=== PATIENT | female | born 1960 | race Caucasian/White ===

== ENCOUNTER 2017-01-06 17:23 | Emergency (ER) | payer MEDICARE, MEDICAID ==
[2017-01-06] MEDS ORDERED: Acetaminophen TAB* 325 MG PO ONE (19:34)
[2017-01-06] MEDS ORDERED: NS 0.9% 1000 ML* 1,000 ML IV ONE (19:34)
[2017-01-06] MEDS ORDERED: Ondansetron INJ* 2 MG/ML VIAL IV ONE (19:34)
[2017-01-06] MEDS ORDERED: Morphine INJ* 2 MG/ML 1 ML SYRINGE IV ONE (19:37)
[2017-01-06 20:07] LABS: Hematocrit 43 % (35-47); Mean Corpuscular HGB Conc 33 g/dl (31-36); Mean Corpuscular Hemoglobin 28 pg (27-31); Mean Corpuscular Volume 85 fL (80-97); Mean Platelet Volume 9 um3 (7.4-10.4); Red Blood Count 5.03 10^6/ul (4.0-5.4); Red Cell Distribution Width 17 % (10.5-15); White Blood Count 14.3 10^3/ul (3.5-10.8)
--- NOTE | 2017-01-06 20:15 | ED ---
Marti Michaels Anna, scribed for Geraldo Rene MD on 01/06/17 at 1940 . HPI Febrile Illness - HPI Summary HPI Summary: Patient is an 56 y/o female coming to [facility] presenting with sudden onset of a constant fever that began one day ago in the afternoon. The fever was just over 100 F yesterday and was 102 this morning. Upon consult with her doctor, the doctor said the family could consider coming to the ED. She also has a constant KHANNA of severity 5/10. The patient had a craniotomy four days ago at [facility]. She had an arterial bypass. During the operation, she had a CVA. Since then, she has had aphasia. She was discharged two days ago. She has left-sided weakness at baseline following previous TIAs. She recently had a UTI and was on Abx. She was supposed to take the last Abx four days ago but was not able to because of her craniotomy. She is currently taking Keppra, 1000 mg at 2x/day. She took her morning dose but not her evening dose. She additionally took Fioricet at 1500 this afternoon, which did not alleviate her KHANNA. Her history is significant for Moyamoya disease. 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 and Onset/Duration: Started Hours Ago, Still Present Timing: Constant Initial Severity: Moderate Current Severity: Moderate Pain Intensity: 5 Associated Signs and Symptoms: Headache - Additional Pertinent History Primary Care Physician: [id number] - Allergy/Home Medications Allergies/Adverse Reactions: Allergies Allergy/AdvReac Type Severity Reaction Status Date / Time Nitrofurantoin Allergy Severe Rash Verified 03/17/16 09:49 [From Macrobid] Amoxicillin [From Augmentin] AdvReac Intermediate Nausea And Verified 03/17/16 09:49 Vomiting Clavulanic Acid AdvReac Intermediate Nausea And Verified 03/17/16 09:49 [From Augmentin] Vomiting Meperidine [From Demerol HCl] AdvReac Intermediate Headache Verified 03/17/16 09 :49 PMH/Surg Hx/FS Hx/Imm Hx Endocrine/Hematology History: Reports: Hx Diabetes, Other Endocrine/ Hematological Disorders Denies: Hx Thyroid Disease, Hx Anemia Cardiovascular History: Reports: Hx Angina, Hx Angioplasty, Hx Coronary Artery Disease, Hx Hypercholesterolemia, Hx Hypertension, Other Cardiovascular Problems /Disorders Denies: Hx Aneurysm, Hx Auto Implanted Cardiovert Defib, Hx Cardiac Arrest, Hx Cardiomegaly, Hx Congenital Heart Disease, Hx Congestive Heart Failure, Hx Deep Vein Thrombosis, Hx Hypotension, Hx Myocardial Infarction, Hx Pacemaker/ICD , Hx Peripheral Vascular Disease, Hx Rheumatic Fever, Hx Syncope, Hx Valvular Heart Disease Respiratory History: Reports: Hx Asthma, Hx Chronic Bronchitis, Hx Chronic Obstructive Pulmonary Disease (COPD) - O2 at home, Hx Pneumonia, Hx Sleep Apnea , Other Respiratory Problems/Disorders - PNEUMONIA IN 2001 Denies: Hx Cystic Fibrosis, Hx Lung Cancer, Hx Pleural Effusion, Hx Pulmonary Edema, Hx Pulmonary Embolism, Hx Seasonal Allergies GI History: Reports: Hx Gastroesophageal Reflux Disease, Other GI Disorders - "sphincter in stomach not working" Denies: Hx Cirrhosis, Hx Crohn's Disease, Hx Diverticulosis, Hx Gall Bladder Disease, Hx Gastrointestinal Bleed, Hx Hiatal Hernia, Hx Irritable Bowel, Hx Jaundice, Hx Obstructive Bowel, Hx Ileostomy, Hx Pyloric Stenosis, Hx Ulcer History: Reports: Hx Chronic Renal Failure, Hx Renal Disease, Other Problems/Disorders - chronic kidney disease Denies: Hx Dialysis Musculoskeletal History: Reports: Hx Back Problems, Hx Scoliosis Sensory History: Reports: Hx Contacts or Glasses, Hx Vision Problem Denies: Hx Hearing Aid Opthamlomology History: Reports: Hx Contacts or Glasses, Hx Vision Problem Neurological History: Reports: Hx Headaches, Hx Transient Ischemic Attacks (TIA) Comment Only: Other Neuro Impairments/Disorders - Hx of 2 TIA. Hx moyamoya disease. 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 Hx Chemotherapy: No Hx Radiation Therapy: No - Surgical History Surgery Procedure, Year, and Place: uterine ablation, appendectomy, 2 bladder cystoscopies, c-sections, endoderectomy 2004, stent and balloon LICA 2005 & 2006 ( Sabrix WALLSTENT - SAFE AT 1.5T AND 3T WITH EVERETTE 2.0 W/KG 15 MINS LIMITATION) , tubal ligation Hx Anesthesia Reactions: No - Immunization History Date of Tetanus Vaccine: Unknown Date of Influenza Vaccine: None Infectious Disease History: No Infectious Disease History: Denies: Hx Clostridium Difficile, Hx Hepatitis, Hx Human Immunodeficiency Virus (HIV), Hx of Known/Suspected MRSA, Hx Shingles, Hx Tuberculosis, Hx Known/ Suspected VRE, Hx Known/Suspected VRSA, History Other Infectious Disease, Traveled Outside the [place] in Last 30 Days - Family History Known Family History: Positive: Cardiac Disease, Other - bipolar disorder; alcohol abuse - Social History Lives: With Family Alcohol Use: Rare Alcohol Amount: once/year Hx Substance Use: No Substance Use Type: Reports: None Hx Tobacco Use: Yes Smoking Status (MU): Former Smoker Type: Cigarettes Amount Used/How Often: quit in 2004 Have You Smoked in the Last Year: No Review of Systems Positive: Fever Genitourinary: Other - recent UTI Neurological: Other - Aphasia, baseline since CVA four days ago Positive: Headache, Weakness - baseline All Other Systems Reviewed And Are Negative: Yes Physical Exam Triage Information Reviewed: Yes Vital Signs On Initial Exam: Initial Vitals Temp Pulse Resp BP Pulse Ox 98.7 F 89 16 136/68 94 01/06/17 17:48 01/06/17 17:48 01/06/17 17:48 01/06/17 17:48 01/06/17 17:48 Vital Signs Reviewed: Yes Appearance: Positive: Well-Appearing, No Pain Distress Skin: Positive: Warm, 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: Normal Head/Face Inspection Eyes: Positive: GERMANIA ENT: Positive: Hearing grossly normal Neck: Positive: Supple, Nontender Respiratory/Lung Sounds: Positive: Clear to Auscultation, Breath Sounds Present Cardiovascular: Positive: RRR Abdomen Description: Positive: Nontender, Soft Bowel Sounds: Positive: Present Musculoskeletal: Positive: Strength/ROM Intact Neurological: Positive: Alert, Oriented to Person Place, Time, Slurred Speech Psychiatric: Positive: Affect/Mood Appropriate Diagnostics - Vital Signs Vital Signs Temp Pulse Resp BP Pulse Ox 01/06/17 18:14 101.4 F 85 34 154/51 96 01/06/17 17:48 98.7 F 89 16 136/68 94 - Laboratory Lab Results: Lab Results 01/06/17 Range/Units 19:55 WBC 14.3 H (3.5-10.8) 10^3/ul RBC 5.03 (4.0-5.4) 10^6/ul Hgb 14.0 (12.0-16.0) g/dl Hct 43 (35-47) % MCV 85 (80-97) fL MCH 28 (27-31) pg MCHC 33 (31-36) g/dl RDW 17 H (10.5-15) % Plt Count 131 L (150-450) 10^3/ul MPV 9 (7.4-10.4) um3 Neut % (Auto) 58.3 (38-83) % Lymph % (Auto) 31.5 (25-47) % Leake % (Auto) 8.8 (1-9) % Eos % (Auto) 0.8 (0-6) % Baso % (Auto) 0.6 (0-2) % Absolute Neuts (auto) 8.3 H (1.5-7.7) 10^3/ul Absolute Lymphs (auto) 4.5 (1.0-4.8) 10^3/ul Absolute Monos (auto) 1.3 H (0-0.8) 10^3/ul Absolute Eos (auto) 0.1 (0-0.6) 10^3/ul Absolute Basos (auto) 0.1 (0-0.2) 10^3/ul Absolute Nucleated RBC 0.02 10^3/ul Nucleated RBC % 0.1 Result Diagrams: 01/06/17 19:55 01/06/17 19:55 Lab Statement: Any lab studies that have been ordered have been reviewed, and results considered in the medical decision making process. - Radiology CXR Xray Interpretation: No Acute Changes Radiology Interpretation Completed By: Radiologist - CT Brain CT CT Interpretation: Positive (See Comments) CT Interpretation Completed By: Radiologist - IMPRESSION: There is a small to moderate-sized left subdural chronic hematoma with a small focal area of increased density which may represent a small acute component. Patient is status post bilateral craniotomy. No midline shift is noted. - EKG 2025 Cardiac Rate: NL - 83 bpm EKG Rhythm: Sinus Rhythm - [address] Segment: Normal Ectopy: None EKG Interpretation: LAHB - Additional Comments Diagnostic Additional Comments: MRI read by radiologist. IMPRESSION: Patient has had a left left subdural collection again noted. No definite acute infarct. There is a 2 cm diffusion abnormality in the left parietal cortical region adjacent ot the craniotomy site. Because there is surgery and some blood in this area, this cannot be definitively attributed to an acute infarct but correlate with any left parietal acute symptoms. No other lesion. No focus of abnormal enhancement. No shift or herniation. Old right craniotomy noted. Fluid left mastoid air cells. Check for any mastoid symptoms. Re-Evaluation - Re-Evaluation First Eval Re-Evaluation Time: 22:04 Comment: Discussed lab, CXR, and brain CT results. Discussed conversation with [facility] and plans for an MRI. Second Eval Change: Improved - results d/w pt, will d/c f/u pcp/surgeon Course/Dx - Course Assessment/Plan: Patient is an 56 y/o female coming to [facility] presenting with sudden onset of a constant fever that began one day ago in the afternoon. The fever was just over 100 F yesterday and was 102 this morning. Upon consult with her doctor, the doctor said the family could consider coming to the ED. She also has a constant KHANNA of severity 5/10. The patient had a craniotomy four days ago at [facility]. She had an arterial bypass. During the operation, she had a CVA. Since then, she has had aphasia. She was discharged two days ago. She has left-sided weakness at baseline following previous TIAs. She recently had a UTI and was on Abx. She was supposed to take the last Abx four days ago but was not able to because of her craniotomy. She is currently taking Keppra, 1000 mg at 2x/day. She took her morning dose but not her evening dose. She additionally took Fioricet at 1500 this afternoon, which did not alleviate her KHANNA. Her history is significant for Moyamoya disease. Labs reveal a WBC of 14.3. She was given Morphine, Acetaminophen, Keppra, and Zofran in the ED course. CXR reveals no active cardiopulmonary disease. EKG reveals NSR at [address] brain reveals a small to moderate-sized left subdural chronic hematoma with a small focal area of increased density which may represent a small acute component. Patient is status post bilateral craniotomy. No midline shift is noted. UA reveals specific gravity of 1.031, protein of 2+, trace ketones, positive urobilinogen, 1+ urine RBC, and present squamous epithelial cells. Discussed patient care with neurosurgery department at [facility] at 2156. They recommended a brain MRI. MRI reveals patient has had a left left subdural collection again noted. No definite acute infarct. There is a 2 cm diffusion abnormality in the left parietal cortical region adjacent ot the craniotomy site. Because there is surgery and some blood in this area, this cannot be definitively attributed to an acute infarct but correlate with any left parietal acute symptoms. No other lesion. No focus of abnormal enhancement. No shift or herniation. Old right craniotomy noted. Fluid left mastoid air cells. Check for any mastoid symptoms. Patient will be discharged with follow up from primary care physician. Patient is agreeable with plan. - Diagnoses Provider Diagnoses: Fever - Provider Notifications Discussed Care Of Patient With: Neurosurgery at [facility] at 2156. They recommended a brain MRI. - Critical Care Time Critical Care Time: 30-74 min Discharge - Discharge Plan Condition: Stable Disposition: HOME Patient Education Materials: Fever in Adults (ED) Referrals: Ang Zelaya MD [Primary Care Provider] - Additional Instructions: Follow up with your primary care physician within 24 hours. Return to the Emergency Department for new or worsening symptoms. The documentation as recorded by the Marti españa Anna accurately reflects the service I personally performed and the decisions made by , Geraldo Rene MD.
[2017-01-06 20:24] LABS: ALT 27 U/L (7-52); Alkaline Phosphatase 47 U/L (34-104); Blood Urea Nitrogen 8 mg/dL (6-24); CO2 Carbon Dioxide 24 mmol/L (22-32); Calcium 9.6 mg/dL (8.6-10.3); Chloride 101 mmol/L (101-111); EGFR African American 142.1 (>60); EGFR Non-African American 110.5 (>60); Globulin 3.7 g/dL (2-4); Glucose 74 mg/dL (70-100); Sodium 134 mmol/L (133-145); Total Protein 7.7 g/dL (6.4-8.9)
--- NOTE | 2017-01-06 21:00 | RAD ---
Indication: Headaches, recent craniotomy. CT of the brain was performed without IV contrast. Comparison is made to previous exam dated August 17, 2016. Ventricular structures are midline. No midline shift is noted. There is left-sided craniotomy. There is a small to moderate sized left-sided subdural hematoma with a focal area of increased density which may represent a focal area of acute hemorrhage. Patient status post left craniotomy. There is also evidence of a right craniotomy. Mastoid air cells and paranasal sinuses are clear. IMPRESSION: There is a small to moderate-sized left subdural chronic hematoma with a small focal area of increased density which may represent a small acute component. Patient is status post bilateral craniotomy. No midline shift is noted.
--- NOTE | 2017-01-06 21:03 | RAD ---
Indication: Fever. 2 views of the chest including dual energy PA views demonstrate no mediastinal shift. Heart is of normal size and configuration. Lung franco demonstrate no pleural fluid, pneumonia or pneumothorax. IMPRESSION: No active cardiopulmonary disease is noted.
[2017-01-06] MEDS ORDERED: Gadoteridol* (CONTRAST) 279.3 MG/ML 10 ML IV ONE (23:44)
[2017-01-07 00:56] LABS: Urine Bacteria Absent (Absent); Urine Bilirubin Negative (Negative); Urine Glucose Negative (Negative); Urine Nitrite Negative (Negative)
[2017-01-07] MEDS ORDERED: Morphine INJ* 2 MG/ML 1 ML SYRINGE IV ONE (01:25)
[2017-01-07 02:28] VITALS: BP 146/70
--- NOTE | 2017-01-07 07:33 | RAD ---
INDICATION: Evaluate for brain abscess. History of recent left-sided craniotomy COMPARISON: CT brain January 06, 2017 TECHNIQUE: sagittal T1 FLAIR, axial diffusion, axial T1 FLAIR, axial T2, axial T2 FLAIR, and SWI images were acquired. FINDINGS: Craniocervical junction: The craniocervical junction appears normal. Ventricles/sulci: There is cortical atrophy with compensatory dilatation of the CSF spaces. Brain parenchyma: Diffusion weighted images show a left parietal abnormality adjacent to the left-sided craniotomy site. This is indeterminate given the recent surgery and small focus of parenchymal hemorrhage. Suggest follow-up if there is concern of an acute left parietal infarct. There are scattered periventricular and subcortical T2-weighted hyperintensities consistent with chronic microvascular ischemic change. Intracranial hemorrhage: Small focus of intraparenchymal hemorrhage is present in the small left-sided subdural collection is identified on CT. Extra-axial spaces: Left subdural collection without change. The collection measures approximately 1 cm in transverse dimension and associated only with mild localized mass effect. Orbits: There are no MR abnormalities of the orbital structures. Paranasal sinuses/mastoid: There is fluid in left mastoid air cells which can relate to mastoiditis. Vascular: No abnormalities are seen. Other: There is an old right temporal craniotomy defect. IMPRESSION: 1. BILATERAL CRANIOTOMY DEFECTS. LEFT SUBDURAL COLLECTION WITHOUT CHANGE. ADJACENT 2 CM FOCUS OF INCREASED SIGNAL ON DIFFUSION-WEIGHTED IMAGES IS INDETERMINATE (SEE ABOVE). 2. MILD CORTICAL ATROPHY WITH UNDERLYING CHRONIC MICROVASCULAR ISCHEMIC CHANGES. 3. LEFT MASTOIDITIS
== END 2017-01-07 02:25 | disposition home or self-care (01) ==
LOC: ED 17:23
DX: R50.9 Fever, unspecified (principal); R51 Headache; R53.1 Weakness; Z87.891 Personal history of nicotine dependence; H70.92 Unspecified mastoiditis, left ear
CPT/HCPCS: 36415; 70450; 70553; 71020; 80053; 81003; 81015; 83605; 83735; 85025; 87040; 93005; 96374; 96375; 99283; A9270-GY; A9579; J2270; J2405

== ENCOUNTER 2017-02-24 09:59 | Inpatient (IN) | payer MEDICARE, MEDICAID ==
[2017-02-24 11:09] LABS: Hematocrit 42 % (35-47); Hemoglobin 14.3 g/dl (12.0-16.0); Mean Corpuscular HGB Conc 34 g/dl (31-36); Mean Corpuscular Hemoglobin 28 pg (27-31); Mean Corpuscular Volume 84 fL (80-97); Mean Platelet Volume 9 um3 (7.4-10.4); Red Blood Count 5.06 10^6/ul (4.0-5.4); Red Cell Distribution Width 17 % (10.5-15); White Blood Count 9.5 10^3/ul (3.5-10.8)
[2017-02-24 11:20] LABS: ALT 12 U/L (7-52); AST 13 U/L (13-39); Albumin 4.1 g/dL (3.2-5.2); Alkaline Phosphatase 53 U/L (34-104); Anion Gap 10 mmol/L (2-11); Blood Urea Nitrogen 13 mg/dL (6-24); CO2 Carbon Dioxide 25 mmol/L (22-32); Calcium 9.2 mg/dL (8.6-10.3); Chloride 103 mmol/L (101-111); EGFR African American 136.6 (>60); EGFR Non-African American 106.2 (>60); Globulin 3.1 g/dL (2-4); Glucose 134 mg/dL (70-100); Potassium 3.9 mmol/L (3.5-5.0); Sodium 138 mmol/L (133-145); Total Protein 7.2 g/dL (6.4-8.9)
[2017-02-24 11:34] LABS: Urine Bacteria Absent (Absent); Urine Bilirubin Negative (Negative); Urine Glucose Negative (Negative); Urine Nitrite Negative (Negative)
[2017-02-24 11:45] LABS: Acetaminophen < 15 mcg/mL; Alcohol < 10 mg/dL (<10); Salicylate < 2.50 mg/dL (<30)
[2017-02-24 11:48] LABS: Benzodiazepine Urine Screen Presumptive Positive (None Detect)
[2017-02-24 11:55] LABS: TSH (Thyroid Stimulating Horm) 1.06 mcIU/mL (0.34-5.60)
--- NOTE | 2017-02-24 17:20 | ED ---
Psychiatric Complaint - HPI Summary HPI Summary: Patient presents with increasing SI since she had two brain surgeries in December and suffered a stroke. She has a history of depression but it has been compounded by her medical issues and the side effects from her stroke. She has a history of suicide attempts and has a plan in place now. She takes multiple daily medication for depression and has been compliant with these, as well as seeing her counselor consistently. - History Of Current Complaint Chief Complaint: EDMentalHealth Time Seen by Provider: 02/24/17 10:20 Hx Obtained From: Patient Hx Last Menstrual Period: not since 2009 ?: No Onset/Duration: Gradual Onset Timing: Constant Severity Initially: Mild Severity Currently: Severe Character: Depressed Aggravating Factor(s): Recent Stress Alleviating Factor(s): Nothing Associated Signs And Symptoms: Positive: Negative Related History: Positive For: Prior Psychiatric Issues Has Suicidal: Reports: Thoughts, With A Plan, Has Prior Attempt(s) - Allergies/Home Medications Allergies/Adverse Reactions: Allergies Allergy/AdvReac Type Severity Reaction Status Date / Time Nitrofurantoin Allergy Severe Rash Verified 02/24/17 22:02 [From Macrobid] Amoxicillin [From Augmentin] AdvReac Intermediate Nausea And Verified 02/24/17 22:02 Vomiting Clavulanic Acid AdvReac Intermediate Nausea And Verified 02/24/17 22:02 [From Augmentin] Vomiting Meperidine [From Demerol HCl] AdvReac Intermediate Headache Verified 02/24/17 22 :02 Home Medications: Home Medications Aspirin TAB* [Aspirin 325 MG TAB*] 325 mg PO BEDTIME 02/24/17 [History Confirmed 02/24/17] Rhwabjiaej-Ieoclac-Bqziomlt [Fiorinal 50-325-40 mg-] 1 cap PO Q6H PRN 02/24/17 [ History Confirmed 02/24/17] Docusate CAP* [Colace Cap*] 100 mg PO BID 02/24/17 [History Confirmed 02/24/17] Lisinopril TAB* [Prinivil TAB*] 20 mg PO BEDTIME 02/24/17 [History Confirmed ] LoraTADine TAB(NF) [Claritin 10 MG TAB(NF)] 10 mg PO DAILY PRN 02/24/17 [ History Confirmed 02/24/17] Nystatin CREAM* [Nystatin Cream*] 1 applic TOPICAL BID PRN 02/24/17 [History Confirmed 02/24/17] Ondansetron TAB* [Zofran 4 MG Tab*] 4 mg PO Q6H PRN 02/24/17 [History Confirmed 02/24/17] PARoxetine HCL TAB* [Paxil TAB*] 20 mg PO QAM 02/24/17 [History Confirmed ] PMH/Surg Hx/FS Hx/Imm Hx Endocrine/Hematology History: Reports: Hx Diabetes, Other Endocrine/ Hematological Disorders Denies: Hx Thyroid Disease, Hx Anemia Cardiovascular History: Reports: Hx Angina, Hx Angioplasty, Hx Coronary Artery Disease, Hx Hypercholesterolemia, Hx Hypertension, Other Cardiovascular Problems /Disorders Denies: Hx Aneurysm, Hx Auto Implanted Cardiovert Defib, Hx Cardiac Arrest, Hx Cardiomegaly, Hx Congenital Heart Disease, Hx Congestive Heart Failure, Hx Deep Vein Thrombosis, Hx Hypotension, Hx Myocardial Infarction, Hx Pacemaker/ICD , Hx Peripheral Vascular Disease, Hx Rheumatic Fever, Hx Syncope, Hx Valvular Heart Disease Respiratory History: Reports: Hx Asthma, Hx Chronic Bronchitis, Hx Chronic Obstructive Pulmonary Disease (COPD) - O2 at home, Hx Pneumonia, Hx Sleep Apnea , Other Respiratory Problems/Disorders - PNEUMONIA IN 2001 Denies: Hx Cystic Fibrosis, Hx Lung Cancer, Hx Pleural Effusion, Hx Pulmonary Edema, Hx Pulmonary Embolism, Hx Seasonal Allergies GI History: Reports: Hx Gastroesophageal Reflux Disease, Other GI Disorders - "sphincter in stomach not working" Denies: Hx Cirrhosis, Hx Crohn's Disease, Hx Diverticulosis, Hx Gall Bladder Disease, Hx Gastrointestinal Bleed, Hx Hiatal Hernia, Hx Irritable Bowel, Hx Jaundice, Hx Obstructive Bowel, Hx Ileostomy, Hx Pyloric Stenosis, Hx Ulcer History: Reports: Hx Chronic Renal Failure, Hx Renal Disease, Other Problems/Disorders - chronic kidney disease Denies: Hx Dialysis Musculoskeletal History: Reports: Hx Back Problems, Hx Scoliosis Sensory History: Reports: Hx Contacts or Glasses, Hx Vision Problem Denies: Hx Hearing Aid Opthamlomology History: Reports: Hx Contacts or Glasses, Hx Vision Problem Neurological History: Reports: Hx Headaches, Hx Transient Ischemic Attacks (TIA) Comment Only: Other Neuro Impairments/Disorders - Hx of 2 TIA. Hx moyamoya disease. 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 Hx Chemotherapy: No Hx Radiation Therapy: No - Surgical History Surgery Procedure, Year, and Place: uterine ablation, appendectomy, 2 bladder cystoscopies, c-sections, endoderectomy 2004, stent and balloon LICA 2005 & 2006 ( [employer] SCIENTIFIC WALLSTENT - SAFE AT 1.5T AND 3T WITH EVERETTE 2.0 W/KG 15 MINS LIMITATION) , tubal ligation Hx Anesthesia Reactions: No - Immunization History Date of Tetanus Vaccine: Unknown Date of Influenza Vaccine: None Infectious Disease History: No Infectious Disease History: Denies: Hx Clostridium Difficile, Hx Hepatitis, Hx Human Immunodeficiency Virus (HIV), Hx of Known/Suspected MRSA, Hx Shingles, Hx Tuberculosis, Hx Known/ Suspected VRE, Hx Known/Suspected VRSA, History Other Infectious Disease, Traveled Outside the in Last 30 Days - Family History Known Family History: Positive: Cardiac Disease, Other - bipolar disorder; alcohol abuse - Social History Occupation: Disabled Lives: Alone Alcohol Use: Rare Alcohol Amount: once/year Hx Substance Use: No Substance Use Type: Reports: None Hx Tobacco Use: Yes Smoking Status (MU): Former Smoker Type: Cigarettes Amount Used/How Often: quit in 2004 Have You Smoked in the Last Year: No Review of Systems Positive: Depressed All Other Systems Reviewed And Are Negative: Yes Physical Exam Triage Information Reviewed: Yes Vital Signs On Initial Exam: Initial Vitals Temp Pulse Resp BP Pulse Ox 97.9 F 87 20 151/68 92 02/24/17 10:06 02/24/17 10:06 02/24/17 10:06 02/24/17 10:06 02/24/17 10:06 Vital Signs Reviewed: Yes Appearance: Positive: Well-Appearing, No Pain Distress, Obese Skin: Positive: Warm, Skin Color Reflects Adequate Perfusion, Dry, Soft Head/Face: Positive: Normal Head/Face Inspection Eyes: Positive: EOMI, GERMANIA, Conjunctiva Clear ENT: Positive: Hearing grossly normal Respiratory/Lung Sounds: Positive: Clear to Auscultation, Breath Sounds Present Cardiovascular: Positive: RRR Abdomen Description: Positive: Nontender, Soft Bowel Sounds: Positive: Present Musculoskeletal: Negative: Edema Left, Edema Right Neurological: Positive: Sensory/Motor Intact, Alert, Oriented to Person Place, Time, NV Bundle Intact Distally Psychiatric: Positive: Depressed AVPU Assessment: Alert - Sandra Coma Scale Coma Scale Total: 15 Diagnostics - Vital Signs Vital Signs Temp Pulse Resp BP Pulse Ox 02/24/17 10:10 98.7 F 86 20 151/68 97 02/24/17 10:06 97.9 F 87 20 151/68 92 - Laboratory Lab Results: Lab Results 02/24/17 02/24/17 02/24/17 Range/Units 10:55 10:55 11:17 WBC 9.5 (3.5-10.8) 10^3/ul RBC 5.06 (4.0-5.4) 10^6/ul Hgb 14.3 (12.0-16.0) g/dl Hct 42 (35-47) % MCV 84 (80-97) fL MCH 28 (27-31) pg MCHC 34 (31-36) g/dl RDW 17 H (10.5-15) % Plt Count 184 (150-450) 10^3/ul MPV 9 (7.4-10.4) um3 Neut % (Auto) 58.1 (38-83) % Lymph % (Auto) 34.5 (25-47) % Mayes % (Auto) 5.7 (1-9) % Eos % (Auto) 1.1 (0-6) % Baso % (Auto) 0.6 (0-2) % Absolute Neuts (auto) 5.5 (1.5-7.7) 10^3/ul Absolute Lymphs (auto) 3.3 (1.0-4.8) 10^3/ul Absolute Monos (auto) 0.5 (0-0.8) 10^3/ul Absolute Eos (auto) 0.1 (0-0.6) 10^3/ul Absolute Basos (auto) 0.1 (0-0.2) 10^3/ul Absolute Nucleated RBC 0.01 10^3/ul Nucleated RBC % 0.1 Sodium 138 (133-145) mmol/L Potassium 3.9 (3.5-5.0) mmol/L Chloride 103 (101-111) mmol/L Carbon Dioxide 25 (22-32) mmol/L Anion Gap 10 (2-11) mmol/L BUN 13 (6-24) mg/dL Creatinine 0.59 (0.51-0.95) mg/dL Est GFR ( Amer) 136.6 (>60) Est GFR (Non-Af Amer) 106.2 (>60) BUN/Creatinine Ratio 22.0 H (8-20) Glucose 134 H (70-100) mg/dL Calcium 9.2 (8.6-10.3) mg/dL Total Bilirubin 0.40 (0.2-1.0) mg/dL AST 13 (13-39) U/L ALT 12 (7-52) U/L Alkaline Phosphatase 53 (34-104) U/L Total Protein 7.2 (6.4-8.9) g/dL Albumin 4.1 (3.2-5.2) g/dL Globulin 3.1 (2-4) g/dL Albumin/Globulin Ratio 1.3 (1-3) TSH 1.06 (0.34-5.60) mcIU/mL Urine Color Yellow Urine Appearance Cloudy Urine pH 5.0 (5-9) Ur Specific Mayo 1.025 (1.010-1.030) Urine Protein Negative (Negative) Urine Ketones Trace H (Negative) Urine Blood Negative (Negative) Urine Nitrate Negative (Negative) Urine Bilirubin Negative (Negative) Urine Urobilinogen Negative (Negative) Ur Leukocyte Esterase Trace H (Negative) Urine WBC (Auto) Trace(0-5/hpf) (Absent) Urine RBC (Auto) Absent (Absent) Ur Squamous Epith Cells Present H (Absent) Urine Bacteria Absent (Absent) Urine Glucose Negative (Negative) Urine Ascorbic Acid * H (Negative) Salicylates < 2.50 (<30) mg/dL Urine Opiates Screen (None Detect) Acetaminophen < 15 mcg/mL Ur Barbiturates Screen (None Detect) Ur Phencyclidine Scrn (None Detect) Ur Amphetamines Screen (None Detect) U Benzodiazepines Scrn (None Detect) Urine Cocaine Screen (None Detect) U Cannabinoids Screen (None Detect) Serum Alcohol < 10 (<10) mg/dL 02/24/17 Range/Units 11:17 WBC (3.5-10.8) 10^3/ul RBC (4.0-5.4) 10^6/ul Hgb (12.0-16.0) g/dl Hct (35-47) % MCV (80-97) fL MCH (27-31) pg MCHC (31-36) g/dl RDW (10.5-15) % Plt Count (150-450) 10^3/ul MPV (7.4-10.4) um3 Neut % (Auto) (38-83) % Lymph % (Auto) (25-47) % Mayes % (Auto) (1-9) % Eos % (Auto) (0-6) % Baso % (Auto) (0-2) % Absolute Neuts (auto) (1.5-7.7) 10^3/ul Absolute Lymphs (auto) (1.0-4.8) 10^3/ul Absolute Monos (auto) (0-0.8) 10^3/ul Absolute Eos (auto) (0-0.6) 10^3/ul Absolute Basos (auto) (0-0.2) 10^3/ul Absolute Nucleated RBC 10^3/ul Nucleated RBC % Sodium (133-145) mmol/L Potassium (3.5-5.0) mmol/L Chloride (101-111) mmol/L Carbon Dioxide (22-32) mmol/L Anion Gap (2-11) mmol/L BUN (6-24) mg/dL Creatinine (0.51-0.95) mg/dL Est GFR ( Amer) (>60) Est GFR (Non-Af Amer) (>60) BUN/Creatinine Ratio (8-20) Glucose (70-100) mg/dL Calcium (8.6-10.3) mg/dL Total Bilirubin (0.2-1.0) mg/dL AST (13-39) U/L ALT (7-52) U/L Alkaline Phosphatase (34-104) U/L Total Protein (6.4-8.9) g/dL Albumin (3.2-5.2) g/dL Globulin (2-4) g/dL Albumin/Globulin Ratio (1-3) TSH (0.34-5.60) mcIU/mL Urine Color Urine Appearance Urine pH (5-9) Ur Specific Mayo (1.010-1.030) Urine Protein (Negative) Urine Ketones (Negative) Urine Blood (Negative) Urine Nitrate (Negative) Urine Bilirubin (Negative) Urine Urobilinogen (Negative) Ur Leukocyte Esterase (Negative) Urine WBC (Auto) (Absent) Urine RBC (Auto) (Absent) Ur Squamous Epith Cells (Absent) Urine Bacteria (Absent) Urine Glucose (Negative) Urine Ascorbic Acid (Negative) Salicylates (<30) mg/dL Urine Opiates Screen None detected (None Detect) Acetaminophen mcg/mL Ur Barbiturates Screen Presumptive positive H (None Detect) Ur Phencyclidine Scrn None detected (None Detect) Ur Amphetamines Screen None detected (None Detect) U Benzodiazepines Scrn Presumptive positive H (None Detect) Urine Cocaine Screen None detected (None Detect) U Cannabinoids Screen None detected (None Detect) Serum Alcohol (<10) mg/dL Result Diagrams: 02/24/17 10:55 02/24/17 10:55 Lab Statement: Any lab studies that have been ordered have been reviewed, and results considered in the medical decision making process. Course/Dx - Differential Dx/Clinical Impression Differential Diagnosis/HQI/PQRI: Positive: Acute Psychosis, Alcohol Intoxication , Anxiety, Bipolar Disorder, Depression, Homicidal Ideation, Schizophrenia, Suicidal Ideation Provider Diagnosis: Suicidal ideation, Depression - Physician Notifications Instructed by Provider To: Admit As Inpatient Patient Is Medically Stable For: Psych Evaluation Discharge - Discharge Plan Condition: Stable Disposition: [facility]ATRIC FAC[facility] [place]
--- NOTE | 2017-02-24 19:01 | ED ---
Jez Michaels Billy, scribed for Xanedr Pinto MD on 02/24/17 at 1851 . Progress - Progress Note Progress Note: Patient signed out at shift change. She was evaluated by psychiatric unit and will be admitted to the [facility] [place]'s psychiatric unit voluntarily. Paperwork signed. Course/Dx - Diagnoses Provider Diagnoses: Suicidal ideation, Depression Discharge - Discharge Plan Condition: Stable Disposition: PSYCHIATRIC FACILITY-[facility] [place] Referrals: Ang Zelaya MD [Primary Care Provider] - The documentation as recorded by the peteibJez silverio Billy accurately reflects the service I personally performed and the decisions made by Millie steele Drew, MD.
[2017-02-24] MEDS ORDERED: Al Hydrox/Mg Hydrox/Simet LIQ* 30 ML UDC PO PRN (20:41)
[2017-02-24] MEDS ORDERED: Albuterol HFA INHALER* 8 gm MDI INH PRN (20:42)
[2017-02-24] MEDS ORDERED: Furosemide TAB* 20 MG PO PRN (20:44)
[2017-02-24] MEDS ORDERED: Potassium Chlor TAB* 20 MEQ TAB.ER PO PRN (20:47)
[2017-02-24] MEDS ORDERED: BUTALBITAL PO PRN (20:50)
[2017-02-24] MEDS ORDERED: [UNRECOGNIZED DRUG - OTHER] PO PRN (20:50)
[2017-02-24] MEDS: Diltiazem CD CAP* 120 MG PO SCH (22:27)
[2017-02-24] MEDS: CALCIUM CARBONATE PO SCH (22:28)
[2017-02-24] MEDS: Famotidine TAB* 20 MG PO SCH (22:32)
[2017-02-24] MEDS: Lisinopril TAB* 10 MG PO SCH (22:32)
[2017-02-24] MEDS: Aspirin TAB* 325 MG PO SCH (22:32)
[2017-02-24] MEDS: Divalproex ER TAB(*) 500 MG PO SCH (22:32)
[2017-02-24] MEDS: Docusate CAP* 100 MG PO SCH (22:32)
[2017-02-24] MEDS: ASENAPINE 10 MG SL SCH (22:32)
[2017-02-24] MEDS: Gabapentin CAP(*) 300 MG PO SCH (22:32)
[2017-02-24] MEDS: ALPRAZolam TAB* 0.5 MG PO PRN (22:35)
[2017-02-25] MEDS: Acetaminophen TAB* 325 MG PO PRN ×2 (04:37→11:07)
[2017-02-25] MEDS: Omeprazole CAP* 20 MG PO SCH (07:49)
[2017-02-25] MEDS ORDERED: Glimepiride (NF) 2 MG TAB PO SCH (08:30)
[2017-02-25] MEDS: CALCIUM CARBONATE PO SCH ×2 (08:43→21:15)
[2017-02-25] MEDS: Carvedilol TAB* 6.25 MG PO SCH ×2 (08:43→16:51)
[2017-02-25] MEDS: Docusate CAP* 100 MG PO SCH (08:43)
[2017-02-25] MEDS: Divalproex ER TAB(*) 500 MG PO SCH ×2 (08:44→21:18)
[2017-02-25] MEDS: PARoxetine HCL TAB* 20 MG PO SCH (08:44)
[2017-02-25] MEDS: Vitamin THERAPEUTIC TAB PO SCH (08:44)
[2017-02-25] MEDS: PTO: Liraglutide (NF) 18 MG/3 ML SUBCUT SCH (08:46)
[2017-02-25] MEDS: Magnesium Hydroxide LIQ* 30 ML UDC PO PRN (14:25)
--- NOTE | 2017-02-25 16:19 | HP ---
Amended report to enter cosignature on report. INITIAL PSYCHIATRIC ASSESSMENT: The supervising psychiatrist for this assessment is Dr. Fairchild DATE OF ADMISSION: CHIEF COMPLAINT/REASON FOR ADMISSION: The patient states, "I was thinking that things would be better if I were not here." HISTORY OF PRESENT ILLNESS: The patient described to me a multitude of psychosocial and physical issues that have resulted in her current suicidal thoughts. She reports that she had brain surgery on 10/21/16 on the right side of her brain for a moyamoya which is a neurologic condition characterized by abnormal arterial formation in the brain. She stated that the purpose of the surgery was to do an arterial bypass in order to improve blood flow to her brain. She had a second surgery on January 02 at [facility] during which she had a CVA while on the table. 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 Today, she is reporting that she is actually quite anxious. She receives the services of an aide between 8:30 and 12:30 on weekdays, but she states that once her aide leaves, she is home by herself and is quite anxious when nobody is around. PAST PSYCHIATRIC HISTORY: The patient actually has the history of bipolar I illness. She does have a history of manic episodes as well as OCD symptoms. She has had approximately 9 prior hospitalizations, 3 in [facility], 6 here at [facility], the first was at age 20 in [facility]. She does receive outpatient care from Dr. Sallie Weiss and therapist at [facility]. She has been receiving that since approximately 2009. Rajiv Gonzalez is her therapist. She reports to me that she has had rather extensive history of suicide attempts including drug overdoses. LEGAL HISTORY: She denies any family psychiatric history. There is a history of depression in her family. She also reports that she believes that her oldest daughter has anxiety and that she had an uncle on her mother's side who is diagnosed with bipolar. PSYCHOSOCIAL HISTORY: The patient was born and raised in [place]. She moves to the area around 2008. She does have 2 daughters who both live with her . 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 She obtained her degree in German at [employer] in [place] and finished master's degree at [employer]. PAST MEDICAL HISTORY: Positive for CVA in 2004, congestive heart failure, diabetes mellitus, gastroesophageal reflux disease, history of DVT, dyslipidemia , obstructive sleep apnea, hypertension, morbid obesity, history of carotid endarterectomy, cervical dysplasia with an endometrial ablation, herniated disks at L4-L5 and L5-S1 were detected in 2003 as well as the aforementioned moyamoya syndrome. SUBSTANCE USE HISTORY: The patient does report that she quit smoking on . She denies any alcohol use or illicit drug use or abuse. REVIEW OF SYSTEMS: HEENT: The patient denies headache, dizziness, syncope, changes in hearing or vision. She does report however that she recently recovered from left ear mastoiditis. She does wear eye glasses. She is edentulous but has no problem chewing or swallowing food. Cardiac: She denies chest pain or palpitations. Pulmonary: She does report occasional shortness of breath. Gastrointestinal: She does report frequent nausea, generally associated with headaches. She denies vomiting, however, and does report frequent constipation. She denies any difficulty associated with urinating. Denies any numbness or tingling in her fingers or toes. She is not currently complaining of pain; however, does acknowledge she has considerable pain with headache. PHYSICAL EXAMINATION VITAL SIGNS: Heart rate is 74, blood pressure 124/67. HEENT: Head is normocephalic, atraumatic. NECK: Appears normal on inspection. RESPIRATORY: No respiratory distress. ABDOMEN: Obese, symmetrical without distension or guarding. MUSCULOSKELETAL: There is some decreased range of motion in lower extremities. Patient does ambulate with the assistance of a quad cane. NEUROLOGIC: The patient is alert and oriented x3. As previously mentioned, there is some hypokinesis and the patient does use a quad cane for ambulation. SKIN: Intact, warm and dry. MENTAL STATUS EXAM: The patient is of healthy built and appears older than her stated age with overall good grooming and hygiene noted. Attitude towards the examiner was pleasant and cooperative. As previously mentioned, the patient ambulates with a slow gait and the assistance of a quad cane. She did not appear to be demonstrating any noteworthy mannerisms, gestures or ticks. Activity level was within normal parameters with no overt evidence of psychomotor excitation or retardation appreciated. Patient is alert with no evidence of confusion, lack of proper association for person, place or time noted. Her speech was decreased in volume, but coherent. Currently, she is describing her mood as anxious. She rates her anxiety as a 4-5 on the 1-10 scale in which 10 represents the most anxious she has ever been. She does report occasional panic attacks as well. Her affect is consistent to self- reported mood. She is currently denies visual or auditory hallucinations. No overt delusion or paranoid thought process is readily apparent. Judgment and insight appear grossly intact as is reality contact. The patient is currently denying suicidal or homicidal ideation and is future oriented. CLINICAL IMPRESSION: The patient is a 56-year-old white female admitted to this facility on voluntary basis secondary to feeling overwhelmed and concerns of self- harm. Although the suicidal ideation is not prevalent, considerable amount of anxiety is still noted. Patient has been admitted for diagnostic clarification and stabilization of symptoms. ADMITTING DIAGNOSES: Bipolar disorder, current phase depressed. Generalized anxiety disorder. PLAN OF TREATMENT: Admit to behavioral service unit. Diet will be diabetic. Vital signs per unit protocol. Activity as tolerated with restrictions to the unit. The patient will participate in treatment planning activities, individual , group, and milieu therapy as well as medication management sessions and discharge planning until she is stable or referred to a higher level of care. TREATMENT GOAL: Stabilization. PROGNOSIS: Fair. ESTIMATED LENGTH OF STAY: 7 to 10 days. DISCHARGE CRITERIA: The patient will be discharged when she is no longer a risk to herself or others and has met the criteria set forth by the treatment team for discharge. This case was reviewed with, and the initial treatment plan has been established by Dr. Fairchild. VANDANA MEJIA, GLASSWARE MAKER DEMONSTRATOR [id number]/CPS #: [id number] SAURAV
[2017-02-25] MEDS: Atorvastatin* 20 MG TAB PO SCH (16:51)
[2017-02-25] MEDS ORDERED: Magnesium CITRATE* 300 ML BTL PO PRN (16:57)
[2017-02-25] MEDS ORDERED: [UNRECOGNIZED DRUG - OTHER] PO ONE (17:00)
[2017-02-25] MEDS: Ondansetron TAB* 4 MG PO PRN (18:27)
[2017-02-25] MEDS ORDERED: Sodium Phosphate ADULT ENEMA* 118 ml bottle PR ONE (19:00)
[2017-02-25] MEDS: ASENAPINE 10 MG SL SCH (21:14)
[2017-02-25] MEDS: Aspirin TAB* 325 MG PO SCH (21:15)
[2017-02-25] MEDS: Famotidine TAB* 20 MG PO SCH (21:16)
[2017-02-25] MEDS: Gabapentin CAP(*) 300 MG PO SCH (21:16)
[2017-02-25] MEDS: Lisinopril TAB* 10 MG PO SCH (21:17)
[2017-02-25] MEDS: Diltiazem CD CAP* 120 MG PO SCH (21:18)
[2017-02-25] MEDS: SENNA PO SCH (21:18)
[2017-02-25] MEDS: DOCUSATE PO SCH (21:18)
[2017-02-26] MEDS: PTO: Liraglutide (NF) 18 MG/3 ML SUBCUT SCH ×2 (07:51→08:11)
[2017-02-26] MEDS: SENNA PO SCH ×2 (08:09→20:20)
[2017-02-26] MEDS: DOCUSATE PO SCH ×2 (08:09→20:20)
[2017-02-26] MEDS: Omeprazole CAP* 20 MG PO SCH (08:10)
[2017-02-26] MEDS: GLIMEPIRIDE 4 MG PO SCH (08:10)
[2017-02-26] MEDS: Vitamin THERAPEUTIC TAB PO SCH (08:10)
[2017-02-26] MEDS: CALCIUM CARBONATE PO SCH ×2 (08:10→21:54)
[2017-02-26] MEDS: PARoxetine HCL TAB* 20 MG PO SCH (08:10)
[2017-02-26] MEDS: Divalproex ER TAB(*) 500 MG PO SCH ×2 (08:11→21:56)
[2017-02-26] MEDS: Carvedilol TAB* 6.25 MG PO SCH ×2 (08:11→16:48)
[2017-02-26] MEDS: ALPRAZolam TAB* 0.5 MG PO PRN (08:23)
[2017-02-26] MEDS: Butalb/Acetamin/Caff TAB* 1 TAB PO PRN ×3 (08:30→20:19)
[2017-02-26] MEDS: Atorvastatin* 20 MG TAB PO SCH (16:48)
[2017-02-26] MEDS: Aspirin TAB* 325 MG PO SCH (21:54)
[2017-02-26] MEDS: Diltiazem CD CAP* 120 MG PO SCH (21:55)
[2017-02-26] MEDS: Lisinopril TAB* 10 MG PO SCH (21:56)
[2017-02-26] MEDS: Famotidine TAB* 20 MG PO SCH (21:56)
[2017-02-26] MEDS: Gabapentin CAP(*) 300 MG PO SCH (21:57)
[2017-02-26] MEDS: ASENAPINE 10 MG SL SCH (22:15)
--- NOTE | 2017-02-27 01:22 | CONSULT ---
Consult Consult: PCP: KAMERON Zelaya MD Date/Time of Evaluation: 02/26/2017 0145 Reason for Consult: low diastolic pressure (per [facility] nursing) HPI: Mrs Sol is a 56YO female admitted to the [facility] for suicidal ideations. She was found to have a low diastolic pressure this evening 138/58, since spontaneously resolved. She had reported a headache earlier, but was up walking and conversing normally. 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 The 2nd was reportedly complicated by CVA affecting her language abilities. She thinks she may have been on the L side, but is uncertain and unable to fully characterize. When asked if it is still present, states, "I don't know." There is no identifiable time of onset. She otherwise denies change in speech/swallow/vision, focal N/T, chest pain, SOB, F/C, N/V, or other issues. PMedHx PAOD s/p L CEA angina DM2 moyamoya CVA TIAs HTN HLD GERD Ambulatory Orders Lansoprazole SOLUTAB* [Prevacid Solutab*] 30 mg PO QAM 05/14/13 Potassium Chlor TAB* [Potassium Chlor TAB 20 MEQ*] 20 meq PO DAILY PRN 10/16/15 Multivitamins/Minerals TAB* [Theragran/minerals TAB*] 1 tab PO QAM 11/25/15 Asenapine(NF) [Saphris(NF)] 10 mg SL BEDTIME 05/02/16 Divalproex ER TAB(*) [Depakote ER TAB(*)] 1,000 mg PO BEDTIME 05/02/16 Divalproex ER TAB(*) [Depakote ER TAB(*)] 500 mg PO QAM 05/02/16 Ranitidine TAB (NF) [Zantac TAB (NF)] 300 mg PO BEDTIME 05/02/16 Furosemide TAB* [Lasix TAB*] 20 mg PO DAILY PRN #0 tab 05/05/16 Gabapentin CAP(*) [Neurontin 300 CAP(*)] 300 mg PO BEDTIME cap 05/05/16 ALPRAZolam TAB* [Xanax TAB*] 1 mg PO BEDTIME PRN MDD 3 mg 06/13/16 Albuterol Sulfate [Proventil Hfa] 2 puff INH Q6HR PRN 06/13/16 Calcium [Oyster-Serafin 500] 500 mg PO BID 06/13/16 Carvedilol TAB* [Coreg TAB*] 6.25 mg PO BID 06/13/16 Cholecalciferol TAB* [Vitamin D TAB*] 400 unit PO BID WITH MEALS 06/13/16 Diltiazem HCl Extended Release [Diltiazem HCl ER] 120 mg PO BEDTIME 06/13/16 Glimepiride (NF) 4 mg PO DAILY 06/13/16 Liraglutide (NF) [Victoza (NF)] 1.8 mg SUBCUT QPM 06/13/16 Miconazole Nitrate (Topical) [Zeasorb-AF] 2 % TOPICAL BID PRN 06/13/16 Atorvastatin* [Lipitor 20 MG*] 20 mg PO 1700 #30 tab 08/19/16 Aspirin TAB* [Aspirin 325 MG TAB*] 325 mg PO BEDTIME 02/24/17 Gsabuxrqrr-Dkvxcpb-Tidiqshq [Fiorinal 50-325-40 mg-] 1 cap PO Q6H PRN 02/24/17 Docusate CAP* [Colace Cap*] 100 mg PO BID 02/24/17 Lisinopril TAB* [Prinivil TAB*] 20 mg PO BEDTIME 02/24/17 LoraTADine TAB(NF) [Claritin 10 MG TAB(NF)] 10 mg PO DAILY PRN 02/24/17 Nystatin CREAM* [Nystatin Cream*] 1 applic TOPICAL BID PRN 02/24/17 Ondansetron TAB* [Zofran 4 MG Tab*] 4 mg PO Q6H PRN 02/24/17 PARoxetine HCL TAB* [Paxil TAB*] 20 mg PO QAM 02/24/17 Allergies Nitrofurantoin [From Macrobid] Allergy (Severe, Verified 02/24/17 22:02) Rash Amoxicillin [From Augmentin] Adverse Reaction (Intermediate, Verified 02/24/17 22:02) Nausea And Vomiting Clavulanic Acid [From Augmentin] Adverse Reaction (Intermediate, Verified 22:02) Nausea And Vomiting Meperidine [From Demerol HCl] Adverse Reaction (Intermediate, Verified 02/24/17 22:02) Headache PSurgHx intracranial procedures x2 this year for moyamoya, the 2nd complicated by CVA L CEA appendectomy SocHx: former smoker, denies alcohol & recreational drugs; lives with her daughters; uses a quad cane for ambulation; full code status FamHx: Mother passed in her 70s 2nd complications of diabetes. Father passed in his 50s 2nd metastatic cancer. ROS: as above, otherwise reviewed and all were negative Constitutional: NAD, normally developed, morbidly obese white female vitals: Vital Signs Temp 36.9 C 02/26/17 07:36 Pulse 87 02/26/17 22:35 Resp 16 02/26/17 23:57 BP 149/66 02/26/17 22:35 Pulse Ox 97 02/26/17 22:35 HEENM: atraumatic; sclera/conjunctiva: non-icteric/clear; blephara: normal; hearing: clinically intact; oropharynx: clear, edentulous, mucosa moist Neck: soft tissue: non-tender; thyroid: normal Pulmonary: clear to auscultation bilaterally, good aeration, no accessory muscle use CV: RR/RR, normal S1S2, no carotid bruit, no jugular venous distention, 2+ B DP/ PT, no edema Abdominal: soft, non-distended, non-tender, no rebound/guarding/rigidity, normoactive bowel sounds, no hepatosplenomegaly or masses, no costovertebral angle tenderness Musculoskeletal: general: grossly intact; gait: stable Integumental: normal appearance and texture of exposed skin Neurological cranial nerves III/IV/: EOMI/PERRLA V: intact mastication VII: intact facial symmetry VIII: hearing clinically intact IX/X: no dysarthria XII: midline tongue protrusion, normal voice articulation motor: R handed LUE: 4/5 proximally, distally, & vault clerk strength RUE: 4/5 proximally, distally, & vault clerk strength LLE: 4/5 proximally & distally RLE: 4/5 proximally & distally Psychiatric orientation: sleeping, arouses to voice, AA&O to PPS affect: somnolent, but appropriate mood: calm eye contact: poor content: reliable responses: timely insight: fair Testing: previous reviewed Laboratory Results - last 24 hr 02/26/17 02/26/17 07:57 16:37 POC Glucose (mg/dL) 152 H 104 Impression: 56F admitted for suicidal ideations with asymptomatic low diastolic spontaneously resolved DIAGNOSIS & PLAN Primary low diastolic w/ baseline HTN : no treatment indicated, continue to monitor HX CVA 2nd moyamoya : questionable L-sided weakness, none now : continue aspirin : neurochecks Q2H Secondary PAOD s/p L CEA & HLD : continue atorvastatin angina : continue aspirin DM2 : continue liraglutie : consisted carb diet : A1c 5.6% 12/2016 GERD : continue omeprazole & famotidine
[2017-02-27] MEDS: ALPRAZolam TAB* 0.5 MG PO PRN ×2 (06:30→22:29)
[2017-02-27] MEDS: Ondansetron TAB* 4 MG PO PRN (07:35)
[2017-02-27] MEDS: Omeprazole CAP* 20 MG PO SCH (07:35)
[2017-02-27] MEDS: Butalb/Acetamin/Caff TAB* 1 TAB PO PRN ×2 (07:35→19:11)
[2017-02-27] MEDS: PTO: Liraglutide (NF) 18 MG/3 ML SUBCUT SCH (08:25)
[2017-02-27] MEDS: Divalproex ER TAB(*) 500 MG PO SCH ×2 (08:29→20:32)
[2017-02-27] MEDS: PARoxetine HCL TAB* 20 MG PO SCH (08:29)
[2017-02-27] MEDS: Vitamin THERAPEUTIC TAB PO SCH (08:29)
[2017-02-27] MEDS: CALCIUM CARBONATE PO SCH ×2 (08:30→20:30)
[2017-02-27] MEDS: Carvedilol TAB* 6.25 MG PO SCH ×2 (08:30→16:16)
[2017-02-27] MEDS: GLIMEPIRIDE 4 MG PO SCH (08:32)
[2017-02-27] MEDS: DOCUSATE PO SCH ×2 (08:32→20:31)
[2017-02-27] MEDS: SENNA PO SCH ×2 (08:32→20:31)
--- NOTE | 2017-02-27 12:59 | PN ---
Subjective - Subjective Service Type: 62351 Hosp care 15 min low complexity Subjective: Dk reports that she has not had any SI to OD since the day after arriving here. She reports anxiety overnight from fear she was having another TIA and q2H neurochecks. A suicide attempt on the unit and agitation by one of the patients has also made her feel anxious here. She is hopeful for discharge soon. She sees the low stressors contributing to her SI as fights between the 20 and 21 year-old daughters she lives with, and her apprehension about being alone in the afternoons in her [place] top floor apartment once her home aides leave at 1230. She reports she has only ever had one single episode of psychotic experience, hearing her father talking to her about her kids as she was driving, though he was . She reports involvement in a sacred practice at her [employer] giving her something to live for. Objective - Appearance Appearance: Well Developed/Nourished, Obese Dysmorphic Features: No Hygiene: Normal Grooming: Fairly Well Kept - Behavior Psychomotor Activities: Abnormal-Decreased - secondary to physical limitations at least in part - Attitude and Relatedness Attitude and Relatedness: Well Related Eye Contact: Good - Speech Quality: Unpressured Latencies: Normal Quantity: Appropriate - Mood Patient's Decription of Mood: "Okay" - Affect Observed Affect: Fair Affect Consistent with: Euthymia - Thought Process Patient's Thought Process: Coherent, Goal Directed Thought Content: No Passive Wish, No Suicidal Planning, No Homicidal Ideation, No Paranoid Ideation - Sensorium Experiencing Hallucinations: No, Sensorium is Clear Type of Hallucinations: Visual: No, Auditory: No, Command: No - Level of Consciousness Level of Consciousness: Alert Orientation: Yes Intact, Yes Orientated to Time, Yes Orientated to Place, Yes Orientated to Person - Impulse Control Impulse Control: Intact - Insight and Judgement Insight and Judgement: Fair - Group Participation Particating in Group Activities: Yes - Medication Management Medication Management Adherence: Yes Assessment - Assessment Merits Inpatient Hospitalization: For Stabilization, Consolidate Improvements, For Discharge Planning Inpatient DSM-IV Dx: Bipolar Affective Disorder, MRE depressed. Generalized Anxiety Disorder Clinical Impression: Dk Sol is a 56-year-old woman admitted due to safety concerns related to her report of plan to OD on medications. Reported depressive symptoms with history of bipolar disorder, with prominent anxiety. Recent stressors include CVA during operation to treat complications of moyamoya, which compromises blood flow through the [place]. She also cites conflict between her daughters as a current stressor. On 02.27.17, she reports improving mood and remission of SI, and is asking when she may be discharged. Dr Gregory's hospitalist consultation for low diastolic BP appreciated. Nothing to do re consult question beyond monitoring, ASA and q2H neurochecks for hx CVA, continue meds and diet for DM2, angina, PAOD s/p L CEA & HLD, and GERD. Plan - Plan Treatment Plan: Name: DK SOL Birthdate: 1960 [id number] Continue current meds. Monitor MS, safety, and q2h neurochecks. Encourage groups, milieu. Gather collateral. Plan for discharge. Continued Medication Management: Continue Outpt Medication Medications: Current Medications Acetaminophen (Tylenol Tab*) 650 mg PO Q4H PRN PRN Reason: PAIN or TEMP > 101 F Last Admin: 02/25/17 11:07 Dose: 650 mg Acetaminophen/Butalbital/Caffeine (Fioricet Tab*) 1 tab PO Q4H PRN PRN Reason: HEADACHE Last Admin: 02/27/17 07:35 Dose: 1 tab Al Hydrox/Mg Hydrox/Simethicone (Maalox Plus*) 30 ml PO Q4H PRN PRN Reason: INDIGESTION Last Admin: 02/25/17 13:00 Dose: 30 ml Albuterol (Ventolin Hfa Inhaler*) 2 puff INH Q4H PRN PRN Reason: SHORTNESS OF BREATH Alprazolam (Xanax Tab*) 1 mg PO TID PRN PRN Reason: ANXIETY Last Admin: 02/27/17 06:30 Dose: 1 mg Asenapine (Saphris(Nf)) 10 mg SL BEDTIME [facility] Last Admin: 02/26/17 22:15 Dose: 10 mg Aspirin (Aspirin Tab*) 325 mg PO BEDTIME [facility] Last Admin: 02/26/17 21:54 Dose: 325 mg Atorvastatin Calcium (Lipitor*) 20 mg PO 1700 [facility] Last Admin: 02/26/17 16:48 Dose: 20 mg Calcium Carbonate (Calcium Carbonate Tab*) 1,250 mg PO BID [facility] Last Admin: 02/27/17 08:30 Dose: 1,250 mg Carvedilol (Coreg Tab*) 6.25 mg PO BID WITH MEALS [facility] Last Admin: 02/27/17 08:30 Dose: 6.25 mg Diltiazem HCl (Cardizem Cd Cap*) 120 mg PO BEDTIME [facility] Last Admin: 02/26/17 21:55 Dose: Not Given Divalproex Sodium (Depakote Er Tab(*)) 500 mg PO DAILY [facility] Last Admin: 02/27/17 08:29 Dose: 500 mg Divalproex Sodium (Depakote Er Tab(*)) 1,000 mg PO BEDTIME [facility] Last Admin: 02/26/17 21:56 Dose: 1,000 mg Famotidine (Pepcid Tab*) 40 mg PO BEDTIME [facility] Last Admin: 02/26/17 21:56 Dose: 40 mg Furosemide (Lasix Tab*) 20 mg PO DAILY PRN PRN Reason: EDEMA Gabapentin (Neurontin Cap(*)) 300 mg PO BEDTIME [facility] Last Admin: 02/26/17 21:57 Dose: 300 mg Liraglutide (Victoza (Nf)) 1.8 mg SUBCUT DAILY [facility] Last Admin: 02/27/17 08:25 Dose: 1.8 mg Lisinopril (Prinivil Tab*) 20 mg PO BEDTIME [facility] Last Admin: 02/26/17 21:56 Dose: Not Given Magnesium Citrate (Citrate Of Magnesia*) 300 ml PO ONCE PRN PRN Reason: CONSTIPATION Last Admin: 02/25/17 17:14 Dose: 300 ml Magnesium Hydroxide (Milk Of Magnesia Liq*) 30 ml PO DAILY PRN PRN Reason: CONSTIPATION Last Admin: 02/25/17 14:25 Dose: 30 ml Multivitamins (Theragran Tab*) 1 tab PO DAILY [facility] Last Admin: 02/27/17 08:29 Dose: 1 tab Pto:Glimepiride 4 Mg 1 dose PO 30 [facility] Last Admin: 02/27/17 08:32 Dose: 1 dose Omeprazole (Prilosec Cap*) 20 mg PO DAILY@0730 [facility] Last Admin: 02/27/17 07:35 Dose: 20 mg Ondansetron HCl (Zofran Tab*) 4 mg PO Q4H PRN PRN Reason: NAUSEA Last Admin: 02/27/17 07:35 Dose: 4 mg Paroxetine HCl (Paxil Tab*) 20 mg PO DAILY [facility] Last Admin: 02/27/17 08:29 Dose: 20 mg Potassium Chloride (Klor Con Er Tab*) 20 meq PO DAILY PRN PRN Reason: IF PT TAKES FUROSEMIDE Senna/Docusate Sodium (Sennokot-S(Nf)) 1 tab PO BID [facility] Last Admin: 02/27/17 08:32 Dose: 1 tab - Discharge Plan Discharge Plan: Outpatient Follow Up
[2017-02-27] MEDS: Atorvastatin* 20 MG TAB PO SCH (16:16)
--- NOTE | 2017-02-27 16:43 | PN ---
Progress Note - Progress Note Note: Patient's urinanalysis was weakly positive with trace leuk esterase. However, urine culture is positive for enterococcus and she is endorsing symptoms of frequency. She also reports history of frequent UTIs. Plan to start amoxicillin now based on culture and sensitivities.
[2017-02-27] MEDS: Famotidine TAB* 20 MG PO SCH (20:30)
[2017-02-27] MEDS: Gabapentin CAP(*) 300 MG PO SCH (20:31)
[2017-02-27] MEDS: Aspirin TAB* 325 MG PO SCH (20:31)
[2017-02-27] MEDS: Diltiazem CD CAP* 120 MG PO SCH (20:31)
[2017-02-27] MEDS: Lisinopril TAB* 10 MG PO SCH (20:32)
[2017-02-27] MEDS: ASENAPINE 10 MG SL SCH (20:32)
[2017-02-27] MEDS ORDERED: Amoxicillin CAP* 500 MG PO SCH (21:00)
[2017-02-27] MEDS ORDERED: Sulfamethox/Trimethoprim DS 800/160* TAB PO SCH (21:00)
[2017-02-28] MEDS: Butalb/Acetamin/Caff TAB* 1 TAB PO PRN ×2 (07:25→12:52)
[2017-02-28] MEDS: Omeprazole CAP* 20 MG PO SCH (07:37)
[2017-02-28] MEDS: PTO: Liraglutide (NF) 18 MG/3 ML SUBCUT SCH (09:03)
[2017-02-28] MEDS: GLIMEPIRIDE 4 MG PO SCH (09:05)
[2017-02-28] MEDS: Carvedilol TAB* 6.25 MG PO SCH ×2 (09:05→17:19)
[2017-02-28] MEDS: Divalproex ER TAB(*) 500 MG PO SCH ×2 (09:06→21:29)
[2017-02-28] MEDS: CALCIUM CARBONATE PO SCH ×2 (09:06→21:34)
[2017-02-28] MEDS: SENNA PO SCH ×2 (09:07→21:34)
[2017-02-28] MEDS: Vitamin THERAPEUTIC TAB PO SCH (09:07)
[2017-02-28] MEDS: PARoxetine HCL TAB* 20 MG PO SCH (09:07)
[2017-02-28] MEDS: DOCUSATE PO SCH ×2 (09:07→21:34)
[2017-02-28] MEDS ORDERED: Nystatin CREAM* 15 GM TUBE TOPICAL PRN (10:22)
[2017-02-28] MEDS: Magnesium Hydroxide LIQ* 30 ML UDC PO PRN (11:13)
[2017-02-28] MEDS: Amoxicillin CAP* 500 MG PO SCH ×2 (11:13→21:27)
--- NOTE | 2017-02-28 14:22 | PN ---
Subjective - Subjective Service Type: 09497 Hosp care 15 min low complexity Subjective: The patient continues to deny SI and is requesting d/c to home tomorrow. She is seen by Dr. Weiss and Rajiv Gonzalez at the [facility]. Objective - Appearance Appearance: Obese Dysmorphic Features: No Hygiene: Normal Grooming: Well Kept - Behavior Psychomotor Activities: Normal Exhibits Abnormal Movement: No - Attitude and Relatedness Attitude and Relatedness: Cooperative Eye Contact: Good - Speech Quality: Unpressured Latencies: Normal Quantity: Appropriate - Mood Patient's Decription of Mood: "Good" - Affect Observed Affect: Good Affect Consistent with: Euthymia - Thought Process Patient's Thought Process: Coherent Thought Content: No Passive Wish, No Suicidal Planning, No Homicidal Ideation, No Paranoid Ideation - Sensorium Experiencing Hallucinations: No, Sensorium is Clear Type of Hallucinations: Visual: No, Auditory: No, Command: No - Level of Consciousness Level of Consciousness: Alert Orientation: Yes Intact, Yes Orientated to Time, Yes Orientated to Place, Yes Orientated to Person - Insight and Judgement Insight and Judgement: Good - Group Participation Particating in Group Activities: Yes - Medication Management Medication Management Adherence: Yes Assessment - Assessment Merits Inpatient Hospitalization: Consolidate Improvements, Pending Safe DC Plan Inpatient DSM-IV Dx: Bipolar Affective Disorder, MRE depressed. Generalized Anxiety Disorder Clinical Impression: 56 y.o. single, white female with a history of past psychiatric admissions and brain vascular disease arrived voluntarily seeking treatment for SI. Plan - Plan Treatment Plan: Name: DK GREEN Birthdate: 1960 [id number] The patient is improving on her outpatient regimen and conservative milieu treatment. Likely d/c home tomorrow. Continued Medication Management: Continue Outpt Medication Medications: Current Medications Acetaminophen (Tylenol Tab*) 650 mg PO Q4H PRN PRN Reason: PAIN or TEMP > 101 F Last Admin: 02/25/17 11:07 Dose: 650 mg Acetaminophen/Butalbital/Caffeine (Fioricet Tab*) 1 tab PO Q4H PRN PRN Reason: HEADACHE Last Admin: 02/28/17 12:52 Dose: 1 tab Al Hydrox/Mg Hydrox/Simethicone (Maalox Plus*) 30 ml PO Q4H PRN PRN Reason: INDIGESTION Last Admin: 02/25/17 13:00 Dose: 30 ml Albuterol (Ventolin Hfa Inhaler*) 2 puff INH Q4H PRN PRN Reason: SHORTNESS OF BREATH Alprazolam (Xanax Tab*) 1 mg PO TID PRN PRN Reason: ANXIETY Last Admin: 02/27/17 22:29 Dose: 1 mg Amoxicillin (Amoxicillin Cap*) 500 mg PO BID [facility] Last Admin: 02/28/17 11:13 Dose: 500 mg Asenapine (Saphris(Nf)) 10 mg SL BEDTIME [facility] Last Admin: 02/27/17 20:32 Dose: 10 mg Aspirin (Aspirin Tab*) 325 mg PO BEDTIME [facility] Last Admin: 02/27/17 20:31 Dose: 325 mg Atorvastatin Calcium (Lipitor*) 20 mg PO 1700 [facility] Last Admin: 02/27/17 16:16 Dose: 20 mg Calcium Carbonate (Calcium Carbonate Tab*) 1,250 mg PO BID [facility] Last Admin: 02/28/17 09:06 Dose: 1,250 mg Carvedilol (Coreg Tab*) 6.25 mg PO BID WITH MEALS [facility] Last Admin: 02/28/17 09:05 Dose: 6.25 mg Diltiazem HCl (Cardizem Cd Cap*) 120 mg PO BEDTIME [facility] Last Admin: 02/27/17 20:31 Dose: 120 mg Divalproex Sodium (Depakote Er Tab(*)) 500 mg PO DAILY [facility] Last Admin: 02/28/17 09:06 Dose: 500 mg Divalproex Sodium (Depakote Er Tab(*)) 1,000 mg PO BEDTIME [facility] Last Admin: 02/27/17 20:32 Dose: 1,000 mg Famotidine (Pepcid Tab*) 40 mg PO BEDTIME [facility] Last Admin: 02/27/17 20:30 Dose: 40 mg Furosemide (Lasix Tab*) 20 mg PO DAILY PRN PRN Reason: EDEMA Gabapentin (Neurontin Cap(*)) 300 mg PO BEDTIME [facility] Last Admin: 02/27/17 20:31 Dose: 300 mg Liraglutide (Victoza (Nf)) 1.8 mg SUBCUT DAILY [facility] Last Admin: 02/28/17 09:03 Dose: 1.8 mg Lisinopril (Prinivil Tab*) 20 mg PO BEDTIME [facility] Last Admin: 02/27/17 20:32 Dose: 20 mg Magnesium Citrate (Citrate Of Magnesia*) 300 ml PO ONCE PRN PRN Reason: CONSTIPATION Last Admin: 02/25/17 17:14 Dose: 300 ml Magnesium Hydroxide (Milk Of Magnesia Liq*) 30 ml PO DAILY PRN PRN Reason: CONSTIPATION Last Admin: 02/28/17 11:13 Dose: 30 ml Multivitamins (Theragran Tab*) 1 tab PO DAILY [facility] Last Admin: 02/28/17 09:07 Dose: 1 tab Pto:Glimepiride 4 Mg 1 dose PO 829 [facility] Last Admin: 02/28/17 09:05 Dose: 1 dose Nystatin (Nystatin Cream*) 1 applic TOPICAL BID PRN PRN Reason: ITCHING Omeprazole (Prilosec Cap*) 20 mg PO DAILY@729 [facility] Last Admin: 02/28/17 07:37 Dose: 20 mg Ondansetron HCl (Zofran Tab*) 4 mg PO Q4H PRN PRN Reason: NAUSEA Last Admin: 02/27/17 07:35 Dose: 4 mg Paroxetine HCl (Paxil Tab*) 20 mg PO DAILY [facility] Last Admin: 02/28/17 09:07 Dose: 20 mg Potassium Chloride (Klor Con Er Tab*) 20 meq PO DAILY PRN PRN Reason: IF PT TAKES FUROSEMIDE Senna/Docusate Sodium (Sennokot-S(Nf)) 1 tab PO BID [facility] Last Admin: 02/28/17 09:07 Dose: 1 tab - Discharge Plan Discharge Plan: Outpatient Follow Up Outpatient Program: [facility]
[2017-02-28] MEDS: ALPRAZolam TAB* 0.5 MG PO PRN (15:40)
[2017-02-28] MEDS: Atorvastatin* 20 MG TAB PO SCH (17:19)
[2017-02-28] MEDS: Aspirin TAB* 325 MG PO SCH (21:28)
[2017-02-28] MEDS: Diltiazem CD CAP* 120 MG PO SCH (21:28)
[2017-02-28] MEDS: Famotidine TAB* 20 MG PO SCH (21:28)
[2017-02-28] MEDS: Gabapentin CAP(*) 300 MG PO SCH (21:28)
[2017-02-28] MEDS: Lisinopril TAB* 10 MG PO SCH (21:29)
[2017-02-28] MEDS: ASENAPINE 10 MG SL SCH (21:49)
[2017-03-01] MEDS: Butalb/Acetamin/Caff TAB* 1 TAB PO PRN (06:28)
[2017-03-01] MEDS: Omeprazole CAP* 20 MG PO SCH (07:44)
[2017-03-01 07:56] VITALS: BP 149/75
[2017-03-01] MEDS: PTO: Liraglutide (NF) 18 MG/3 ML SUBCUT SCH (08:32)
[2017-03-01] MEDS: Carvedilol TAB* 6.25 MG PO SCH (08:33)
[2017-03-01] MEDS: CALCIUM CARBONATE PO SCH (08:33)
[2017-03-01] MEDS: Amoxicillin CAP* 500 MG PO SCH (08:33)
[2017-03-01] MEDS: GLIMEPIRIDE 4 MG PO SCH (08:34)
[2017-03-01] MEDS: DOCUSATE PO SCH (08:34)
[2017-03-01] MEDS: SENNA PO SCH (08:34)
[2017-03-01 08:54] LABS: HDL Cholesterol 37.1 mg/dL
[2017-03-01] MEDS: ALPRAZolam TAB* 0.5 MG PO PRN (09:18)
[2017-03-01] MEDS: Vitamin THERAPEUTIC TAB PO SCH (11:45)
[2017-03-01] MEDS: Divalproex ER TAB(*) 500 MG PO SCH (11:46)
[2017-03-01] MEDS: PARoxetine HCL TAB* 20 MG PO SCH (11:46)
--- NOTE | 2017-03-01 14:36 | DS ---
DISCHARGE SUMMARY: DATE OF ADMISSION: 02/24/17 DATE OF DISCHARGE: 03/01/17 DISCHARGE DIAGNOSES: Include: [place] I: Bipolar disorder type 1, current episode depressed, severe, without psychotic features. Axi s II: Deferred. 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 [place] IV: Moderate primary support [facility]. [place] V: At the time of admission was 40 and at the time of discharge is 62. CONDITION AT THE TIME OF DISCHARGE: Stable. The patient is denying suicidal ideations and has been doing so for several days. She has been calm, cooperative, expressive. She has been active on the unit, going to all groups and socializing with peers, and her affect appears to be greatly improved since the time of admission. She is future oriented, stating that she is looking forward to resolv ing her medical issues and returning to mental health treatment in the outpatient setting. MENTAL STATUS EXAMINATION: The patient is an obese, aging white female who sits with a purple shirt and purple sweat pants using a cane, ambulating quite slowly. She is clean and well-groomed. She i s calm, cooperative, makes good eye contact. Speech has a normal rate, tone, and volume. Mood is eu thymic with a full affect. Thought process linear and goal-directed. Thought content is significant for her desire to be discharged from the hospital. She is denying suicidal or homicidal ideations. She denies auditory or visual hallucinations. Insight and judgment appear to be fair given her wi llingness to follow up with outpatient treatment in the community. Cognitively, she is awake and al ert with what would appear to be an average intellect. DISCHARGE INSTRUCTIONS FOR THE PATIENT: As follows: A. Medications: 1. She takes Xanax 0.5 mg at bedtime as needed for anxiety. 2. Albuterol 2 puffs inhaled every 6 hours as needed for shortness of breath. 3. She takes asenapine 10 mg sublingual at bedtime. 4. Aspirin 325 mg p.o. at bedtime. 5. Atorvastatin 20 mg p.o. q.p.m. 6. Fiorinal 50/325/40 one cap every 6 hours as needed for migraine. 7. Calcium 500 mg p.o. b.i.d. 8. Carvedilol 6.25 mg p.o. b.i.d. 9. Vitamin D 400 units p.o. b.i.d. 10. Diltiazem 120 mg p.o. q.h.s. 11. Depakote ER 1000 mg at night and 500 mg in the morning. 12. Colace 100 mg p.o. b.i.d. 13. Lasix 20 mg p.o. daily. 14. Gabapentin 300 mg p.o. q.h.s. 15. Glimepiride 4 mg p.o. daily. 16. Lansoprazole SoluTab 30 mg p.o. q.a.m. 17. Liraglutide or Victoza 1.8 mg subcutaneously q.p.m. 18. Lisinopril 20 mg p.o. q.h.s. 19. Loratadine 10 mg p.o. daily. 20. Miconazole nitrate 2% topically b.i.d. for itching. 21. Multivitamin 1 tablet p.o. daily. 22. Nystatin cream apply topically b.i.d. for itching. 23. Zofran 4 mg p.o. every 6 hours for nausea and vomiting. 24. Paxil 20 mg p.o. daily. 25. Potassium chloride 20 mEq p.o. daily. 26. Zantac 300 mg p.o. q.h.s. B. Diet: Diabetic diet. C: Activity: As tolerated. The patient is a nonsmoker. There are no diagnostic studies pending a t the time of discharge. D. Followup Care: The patient will follow up at [facility] within 1 week of dis charge. There she will follow up with psychotherapist Ifeanyi Gonzalez and psychiatrist Dr. Darya cuello. HOSPITAL COURSE: As follows: Part A: Reason for admission: The patient is a 56-year-old single white female with a history of b ipolar disorder and multiple past psychiatric hospitalizations, who arrived complaining of suicidal thoughts. Apparently, she had brain surgery in October 2016 on the right side of her brain for the condition of Moyamoya, which is a neurologic vascular condition characterized by abnormal arterial f ormation in the brain. She stated that the purpose of the surgery was to do an arterial bypass in o rder to improve blood flow in her head. She had a second surgery on January 02 at the [facility] in which she states that she had a stroke while on the operating room table. 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 Tolachelle singh, she was reporting that she was quite anxious, receiving the services of an aide between the times of 8:30 in the morning and 12:30 in the afternoon on week days, but she states when her aide leaves , she is often alone by herself at home becoming anxious that no one was around. The patient denied any specific plan for suicide, but was quite anxious and in distress, and the decision was made to admit her on a voluntary status. Part B: Psychiatric treatment rendered: The [facility] and placed on q.30-minute checks for her own safety. She was very active on the unit throughout her time, going to groups and engaging in individual sessions with staff. She was social with peers and appeared to greatly benefit from the milieu setting. Her suicidality almost immediately resolv ed. In terms of her medications, we kept her on her rather extensive outpatient medication regimen including Depakote, Paxil, and asenapine and treated her conservatively with milieu care. The patie nt appeared safe on all checks throughout hospitalization and she did request discharge home, statin g that her neurological effects had improved and that her mood had similarly improved. It is notabl e that consultation was gathered by Dr. Bya Gregory due to low diastolic blood pressure and the patient was seen by Dr. Gregory on February 26. He did not recommend any acute changes in her med ications, but advised us to monitor and no further hypotension was appreciated for the remainder of hospitalization. At this time, she is safe and requesting to go home to receive treatment in a less restrictive setting and we are in agreement with this plan. [id number]/[facility] #: [id number]
== END 2017-03-01 12:05 | disposition home or self-care (01) | DRG 885 ==
LOC: ED 09:59 → BSU 17:57
PROVIDERS: ADMIT Psychiatry & Neurology Psychiatry; ATTEND Psychiatry & Neurology Psychiatry
DX: F31.4 Bipolar disorder, current episode depressed, severe, without psychotic features (principal); R45.851 Suicidal ideations; I11.0 Hypertensive heart disease with heart failure; I50.9 Heart failure, unspecified; E11.9 Type 2 diabetes mellitus without complications; Z68.42 Body mass index [BMI] 45.0-49.9, adult; N39.0 Urinary tract infection, site not specified; B95.2 Enterococcus as the cause of diseases classified elsewhere; K21.9 Gastro-esophageal reflux disease without esophagitis; E78.5 Hyperlipidemia, unspecified; G47.33 Obstructive sleep apnea (adult) (pediatric); E66.01 Morbid (severe) obesity due to excess calories; I69.818 Other symptoms and signs involving cognitive functions following other cerebrovascular disease; Z86.718 Personal history of other venous thrombosis and embolism; Z83.3 Family history of diabetes mellitus; Z80.9 Family history of malignant neoplasm, unspecified; Z87.891 Personal history of nicotine dependence
CPT/HCPCS: 36415; 80053; 80061; 80307; 80320; 80329; 81003; 81015; 83036; 84443; 85025; 86803; 87077; 87086; 87186; 99222; 99231; 99238; A9270-GY; G0480

== ENCOUNTER 2017-03-11 20:02 | Observation (INO) | payer MEDICARE, MEDICAID ==
--- NOTE | 2017-03-11 21:06 | RAD ---
HISTORY: TIA, bleed, stroke COMPARISONS: January 06, 2017 TECHNIQUE: Multiple contiguous axial CT scans were obtained of the head without intravenous contrast. FINDINGS: HEMORRHAGE/INFARCT: There is no hemorrhage or acute infarct. MASSES/SHIFT: There is no mass or shift. EXTRA-AXIAL SPACES: There are no extra-axial fluid collections. There has been interval resolution of the left frontoparietal subdural hematoma SULCI AND VENTRICLES: The sulci and ventricles are normal in size and position for the patient's stated age. CEREBRUM: There is stable mild hypoattenuation of the right frontal periventricular white matter BRAINSTEM: There are no focal parenchymal abnormalities. CEREBELLUM: There are no focal parenchymal abnormalities. VESSELS: The vessels are grossly normal. PARANASAL SINUSES: The paranasal sinuses are clear. ORBITS: The orbits are unremarkable. BONES AND SOFT TISSUE: There is post surgical change to the skull OTHER: None IMPRESSION: INTERVAL RESOLUTION OF LEFT FRONTOPARIETAL SUBDURAL HEMATOMA. NO ACUTE INTRACRANIAL PATHOLOGY.
[2017-03-11] MEDS ORDERED: Clopidogrel TAB* 75 MG PO ONE (21:27)
[2017-03-11] MEDS ORDERED: Divalproex DR TAB(*) 500 MG PO ONE ×2 (21:27→21:35)
[2017-03-11] MEDS ORDERED: Aspirin TAB* 325 MG PO ONE (21:35)
[2017-03-11] MEDS ORDERED: Aspirin TAB* 325 MG ONE (21:36)
[2017-03-11 21:38] LABS: Hematocrit 41 % (35-47); Hemoglobin 13.6 g/dl (12.0-16.0); Mean Corpuscular HGB Conc 34 g/dl (31-36); Mean Corpuscular Hemoglobin 28 pg (27-31); Mean Corpuscular Volume 84 fL (80-97); Mean Platelet Volume 9 um3 (7.4-10.4); Red Blood Count 4.83 10^6/ul (4.0-5.4); Red Cell Distribution Width 17 % (10.5-15); White Blood Count 9.6 10^3/ul (3.5-10.8)
[2017-03-11 22:06] LABS: BUN/Creatinine Ratio 23.2 (8-20); Calcium 9.3 mg/dL (8.6-10.3); EGFR African American 145.1 (>60); EGFR Non-African American 112.8 (>60); Globulin 2.7 g/dL (2-4); HDL Cholesterol 40.3 mg/dL; Potassium 4.2 mmol/L (3.5-5.0); Total Bilirubin 0.4 mg/dL (0.2-1.0); Total Protein 6.7 g/dL (6.4-8.9)
[2017-03-11] MEDS ORDERED: Dextrose 50% Syringe 50 ML* 25 GM/50 ML SYRINGE IV PUSH PRN (22:14)
[2017-03-11] MEDS ORDERED: Acetaminophen TAB* 325 MG PO PRN (22:14)
[2017-03-11] MEDS ORDERED: Ondansetron INJ* 2 MG/ML VIAL IV PRN (22:14)
[2017-03-11] MEDS ORDERED: BUTALBITAL ASPIRIN CAFFEINE PO PRN (22:24)
[2017-03-11] MEDS ORDERED: ALPRAZolam TAB* 0.5 MG PO PRN (22:24)
[2017-03-11] MEDS ORDERED: Albuterol HFA INHALER* 8 gm MDI INH PRN (22:24)
[2017-03-11 22:36] LABS: Urine Bacteria Absent (Absent); Urine Bilirubin Negative (Negative); Urine Glucose Negative (Negative); Urine Nitrite Negative (Negative)
[2017-03-11] MEDS ORDERED: NS 0.9% 1000 ML* 1,000 ML IV SCH (22:45)
[2017-03-12 00:18] LABS: Urine Bacteria Absent (Absent); Urine Bilirubin Negative (Negative); Urine Glucose Negative (Negative); Urine Nitrite Negative (Negative)
--- NOTE | 2017-03-12 01:37 | HP ---
CC: Dr. Zelaya; Dr. Rogers * HISTORY AND PHYSICAL: DATE OF ADMISSION: 03/11/17 PRIMARY CARE PROVIDER: Dr. Zelaya. ATTENDING PHYSICIAN WHILE IN THE HOSPITAL: Dr. Bay Gregory * (report dictated by Jorge A Waller NP). CONSULTING NEUROLOGIST: Dr. Rogers. CHIEF COMPLAINT: 1. Left-sided weakness. 2. Difficulty with speech. 3. Dizziness. HISTORY OF PRESENT ILLNESS: Ms. Sol is a 56-year-old female patient who has an extensive medical history. She has had a history of diabetes, JOSIE, hyperlipidemia, hypertension, TIA, CVA, CHF, borderline personality disorder, depression, bipolar, Moyamoya syndrome, CKD, GERD, COPD, and angina. She comes into the ER today stating that today she has had about 5 to 6 episodes where is becoming and feeling dizzy, room spinning, feeling lightheaded. She says that her speech has been worse than her baseline. She said that she feels like she has had worsening weakness to the left side. She denies having any facial drooping, although the daughter says that she may have noticed a right-sided facial droop. She states that these episodes have lasted about 15 minutes, each time, when she sits down, she feels better. She says that she was concerned since the symptoms were just not going away. The patient denied having any recent chest pain, fevers, chills or nausea. There was no loss of consciousness. Her daughter was concerned because she kept having symptoms, so she came into the ER today. There were no reports of slurring of the words she has had since having two intracranial surgeries for the Moyamoya at [place]. Since having the second surgery, she did have a stroke and since then, she has been having really a lot of trouble with speech, but there was concern because they thought that her symptoms are getting worse today and so she came into the ER. She was evaluated by Dr. Pinto. We touched base with Dr. Rogers. Because of the patient's extensive history, it was felt that she will be better served with observation and adding on more antiplatelet therapy, in addition to this, increasing her Depakote, so because of this, the hospitalist service was asked to evaluate for admission. PAST MEDICAL HISTORY: Significant for: 1. Obesity. 2. Diabetes. 3. JOSIE. 4. Hyperlipidemia. 5. Hypertension. 6. TIA. 7. Bipolar disorder. 8. CHF. 9. Borderline personality disorder. 10. Moyamoya. 11. CVA. 12. Depression. 13. CKD. 14. COPD. 15. GERD. 16. Angina. PAST SURGICAL HISTORY: 1. She has had 2 intracranial surgeries in [place], most recently in December. 2. She has had a history of x2. 3. She has had a carotid endarterectomy with a stent placement. 4. Appendectomy. MEDICATIONS: Home meds include: 1. Depakote 500 mg in the morning, 1000 mg at bedtime. 2. Albuterol 2 puffs every 6 hours as needed. 3. Xanax 1 mg at bedtime as needed. 4. Lipitor 20 mg daily. 5. Aspirin 325 mg daily. 6. Saphris 10 mg sublingual at bedtime. 7. Coreg 6.25 mg p.o. b.i.d. 8. Calcium 500 mg p.o. b.i.d. 9. Fioricet 1 capsule every 6 hours as needed. 10. Victoza 1.8 mg subcu q.p.m. 11. Prevacid 30 mg daily. 12. Glimepiride 4 mg daily. 13. Gabapentin 300 mg at bedtime. 14. Colace 100 mg p.o. b.i.d. 15. Diltiazem 120 mg p.o. daily at bedtime. 16. Nystatin 1 application topically b.i.d. as needed. 17. Multivitamin 1 tablet daily. 18. Lisinopril 20 mg daily. 19. Ranitidine 300 mg p.o. daily. 20. Paxil 20 mg daily. 21. Zofran 4 mg every 6 hours as needed. ALLERGIES TO MEDICATIONS: Include MACRODANTIN, AUGMENTIN, DEMEROL, and MORPHINE. FAMILY HISTORY: Mother had diabetes and peripheral vascular disease. Father had a history of brain tumor. SOCIAL HISTORY: She is a former smoker. She does not drink alcohol. Surrogate decision maker is her daughter. REVIEW OF SYSTEMS: There is no documented fever. She denied having any significant weight change. There was no double vision. There was no ear discharge. She denied having any rhinorrhea. No sore throat. No thyroid enlargement. Denies having any chest pain. Denies having any loss of consciousness. No pruritus, no skin ulcerations. No abdominal pain. No nausea , no vomiting. Review of 14 systems completed, all others were negative. PHYSICAL EXAMINATION GENERAL: At this time, Ms. Sol is a 56-year-old female patient. She is morbidly obese. She is sitting in the ER stretcher. She does not appear to be in any acute distress. VITAL SIGNS: Reveal blood pressure 149/55 with pulse 84, respirations 18, O2 sat 95%, temperature 97.7. HEENT: Head: Atraumatic and normocephalic. Eyes: EOMs intact. Sclerae are anicteric, not pale. Throat: Oral mucosa appears to be moist. No oropharyngeal erythema. NECK: Supple. LUNGS: Clear to auscultation bilaterally. No wheezes, rales, or rhonchi. HEART: Heart sounds S1, S2. Regular rate and rhythm. No murmurs, rubs, or gallops. ABDOMEN: Soft, flat, nontender. Bowel sounds are present. EXTREMITIES: Pulses were 2+ throughout. She does have about 2/5 strength in the left lower extremity, the daughter said that this has been chronic and same with the left upper extremity, she has about 2/5 strength; right side, she has 5 /5 strength. NEUROLOGIC: She is awake, alert, and oriented x3. Her speech is delayed but she is appropriate. Her media center specialist were equal with the exception on the left side, she has left lower extremity weakness compared to the right. She had no facial drooping. Tongue was midline. Proposal Development Manager were equal. She had no other gross focal deficits. SKIN: Intact. DIAGNOSTIC STUDIES/LAB DATA: Today revealed WBC of 9.6, RBC of 4.83, hemoglobin of 13.6, hematocrit of 41, and platelet count was 186. INR was 1.02. Sodium was 137, potassium was 4.8, chloride of 102, bicarb 26, BUN 13, creatinine 0.56, glucose 134, lactate 2.5, calcium 9.3. Total bili 0.4, AST 12 , ALT 14, alk phos 47. Troponin 0.00. Albumin of 4.0. Toxicology: Valproic acid 51. She had a brain CT obtained today, which showed interval resolution of left frontoparietal subdural hematoma. No acute intracranial pathology. She did have an EKG obtained today as well which revealed a normal sinus rhythm at the rate of 80, no ST elevations or T-wave inversions were noted. Old medical records were reviewed. ASSESSMENT AND PLAN: Ms. Sol is a 56-year-old female patient with multiple medical problems coming into the ER today with complaints of dizziness. In addition to this, also having worsening weakness on her left side and trouble with her speech, the hospitalist service was asked to evaluate for admission. She will be admitted under observation status for: 1. Dizziness. Concern for possible transient ischemic attack or possible worsening stroke. At this point, I did touch base with Dr. Rogers. Her symptoms are kind of very broad at this point though. Because of the history of Moyamoya, certainly she is at risk for more ischemic events. So, I think we will go ahead and put her on Plavix. We will go ahead and put her on Depakote. We will get an MRI of the brain. Dr. Rogers will consult. We will place her on telemetry. We will get frequent neuro evaluations. We will monitor and depending on what we find with initial workup, we may need to pursue echo, possibly CTA head and neck. 2. Diabetes. We will put her on lispro sliding scale. 3. Obstructive sleep apnea. CPAP. 4. Hyperlipidemia. Continue statin. 5. Hypertension. Continue meds as prescribed. 6. Lactic acidosis. The etiology is unclear. I am going to go ahead and give her just a liter of fluids, we will repeat the lactate. I do not think she is actively infected, we will follow. 7. History of Moyamoya, transient ischemic attack, and cerebrovascular accident. Again, she is going to be on Plavix, aspirin, and statin. We will continue these medications, frequent neuro checks, and we will follow, and Dr. Rogers will be following. 8. History of bipolar, borderline personality disorder, and depression. Continue with her current medical regimen. 9. Congestive heart failure. She does not appear to be in failure, we will monitor. 10. Chronic kidney disease. Her creatinine is stable. 11. Chronic obstructive pulmonary disease. I did order p.r.n. albuterol. 12. Gastroesophageal reflux disease. Continue PPI therapy. 13. DVT prophylaxis. She is high risk, continue heparin subcu. 14. Code status. Full code. 15. Fluids, electrolytes, and nutrition. She can have a consistent carb diet. TIME SPENT: On this admission was approximately 60 minutes, greater than half the time was spent [id number] with the patient, obtaining my history of physical; the other half time was spent going over the plan of care with the patient and implementing plan of care. I did discuss the plan of care with my attending, Dr. Gregory; he is in agreement. JORGE A WALLER, GERBER [id number]/[facility] #: [id number]
--- NOTE | 2017-03-12 03:52 | ED ---
Nikhil Michaels Rebecca, scribed for Xander Pinto MD on 03/11/17 at 205 . Neurological HPI - HPI Summary HPI Summary: Pt is a 56 y/o F BIBA who presents to ED s/p 4 episodes of slurred speech and aphasia, the first at 0800 today and the last at 1830. Describes sx as "I had this feeling like I was shaking from the outside in and then I couldn't speak." Pt reports the first episode lasted 15 minutes, though her daughter states it was 5 minutes long. Sx aggravated by nothing, alleviated by spontaneous resolution. Additionally c/o SOB, severe KHANNA and acute on chronic L-sided weakness during episodes. Daughter reports she believes there was also slight R- sided facial droop. Denies fever, visual changes, unsteady gait, dropping items and CP. Takes 324 mg ASA and is no longer on Plavix. PMHx Moyamoya, CVA (December) and TIA(during surgery on an arterial bypass in the brain at [facility] earlier this year). PSHx brain surgery (2x this year). Confirms she uses O2 per Os at home and a cane. Takes Depakote (bipolar) and Lipitor. Was previously on keppra to treat "shakes" s/p surgery, but she was weaned off. Neurologist is Dr. Calderón. - History of Current Complaint Chief Complaint: EDNeurologicalDeficit Stated Complaint: SLURRED SPEECH Time Seen by Provider: 03/11/17 20:40 Hx Obtained From: Patient Hx Last Menstrual Period: not since 2009 Onset/Duration: Sudden Onset, Resolved Timing: Intermittent Episodes Lasting: - 4 episodes lasting 5-15 minutes Onset Severity: Moderate Current Severity: None Pain Intensity: 0 Pain Scale Used: 0-10 Numeric Character: Weak - worsened L-sided weakness (chronic L-sided weakness s/p TIA) Aggravating: Nothing Alleviating: Spontanious Resolution Associated Signs and Symptoms: Positive: Headache - during episodes, resolved, Weakness - acute on chronic L-sided weakness, Impaired Speech - 4 episodes of slurred speech and aphasia, Shortness of Breath - during episodes. Negative: Unsteady Gait, Visual Changes, Fever, Chest Pain - Additional Pertinent History Primary Care Physician: [id number] - Allergy/Home Medications Allergies/Adverse Reactions: Allergies Allergy/AdvReac Type Severity Reaction Status Date / Time Nitrofurantoin Allergy Severe Rash Verified 03/11/17 23:44 [From Macrobid] Clavulanic Acid AdvReac Intermediate Nausea And Verified 03/11/17 23:44 [From Augmentin] Vomiting Meperidine [From Demerol HCl] AdvReac Intermediate Headache Verified 03/11/17 23 :44 Morphine AdvReac Nausea Verified 03/11/17 23:44 PMH/Surg Hx/FS Hx/Imm Hx Endocrine/Hematology History: Reports: Hx Diabetes, Other Endocrine/ Hematological Disorders Denies: Hx Thyroid Disease, Hx Anemia Cardiovascular History: Reports: Hx Angina, Hx Angioplasty, Hx Coronary Artery Disease, Hx Hypercholesterolemia, Hx Hypertension, Other Cardiovascular Problems /Disorders Denies: Hx Aneurysm, Hx Auto Implanted Cardiovert Defib, Hx Cardiac Arrest, Hx Cardiomegaly, Hx Congenital Heart Disease, Hx Congestive Heart Failure, Hx Deep Vein Thrombosis, Hx Hypotension, Hx Myocardial Infarction, Hx Pacemaker/ICD , Hx Peripheral Vascular Disease, Hx Rheumatic Fever, Hx Syncope, Hx Valvular Heart Disease Respiratory History: Reports: Hx Asthma, Hx Chronic Bronchitis, Hx Chronic Obstructive Pulmonary Disease (COPD) - O2 at home, Hx Pneumonia, Hx Sleep Apnea , Other Respiratory Problems/Disorders - PNEUMONIA IN 2001 Denies: Hx Cystic Fibrosis, Hx Lung Cancer, Hx Pleural Effusion, Hx Pulmonary Edema, Hx Pulmonary Embolism, Hx Seasonal Allergies GI History: Reports: Hx Gastroesophageal Reflux Disease, Other GI Disorders - "sphincter in stomach not working" Denies: Hx Cirrhosis, Hx Crohn's Disease, Hx Diverticulosis, Hx Gall Bladder Disease, Hx Gastrointestinal Bleed, Hx Hiatal Hernia, Hx Irritable Bowel, Hx Jaundice, Hx Obstructive Bowel, Hx Ileostomy, Hx Pyloric Stenosis, Hx Ulcer History: Reports: Hx Chronic Renal Failure, Hx Renal Disease, Other Problems/Disorders - chronic kidney disease Denies: Hx Dialysis Musculoskeletal History: Reports: Hx Back Problems, Hx Scoliosis Sensory History: Reports: Hx Contacts or Glasses, Hx Vision Problem Denies: Hx Hearing Aid Opthamlomology History: Reports: Hx Contacts or Glasses, Hx Vision Problem Neurological History: Reports: Hx Headaches, Hx Transient Ischemic Attacks (TIA) Comment Only: Other Neuro Impairments/Disorders - Hx of 2 TIA. Hx moyamoya disease. 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 Hx Chemotherapy: No Hx Radiation Therapy: No - Surgical History Surgery Procedure, Year, and Place: uterine ablation, appendectomy, 2 bladder cystoscopies, c-sections, endoderectomy 2004, stent and balloon LICA 2005 & 2006 ( Blued SCIENTIFIC WALLSTENT - SAFE AT 1.5T AND 3T WITH EVERETTE 2.0 W/KG 15 MINS LIMITATION) , tubal ligation, arterial bypass in the brain Hx Anesthesia Reactions: No - Immunization History Date of Tetanus Vaccine: Unknown Date of Influenza Vaccine: 06/17 Infectious Disease History: No Infectious Disease History: Denies: Hx Clostridium Difficile, Hx Hepatitis, Hx Human Immunodeficiency Virus (HIV), Hx of Known/Suspected MRSA, Hx Shingles, Hx Tuberculosis, Hx Known/ Suspected VRE, Hx Known/Suspected VRSA, History Other Infectious Disease, Traveled Outside the [place] in Last 30 Days - Family History Known Family History: Positive: Cardiac Disease, Other - bipolar disorder; alcohol abuse - Social History Alcohol Use: Rare Alcohol Amount: once/year Hx Substance Use: No Substance Use Type: Reports: None Hx Tobacco Use: Yes Smoking Status (MU): Former Smoker Type: Cigarettes Amount Used/How Often: quit in 2004 Have You Smoked in the Last Year: No Review of Systems Negative: Fever Negative: Chest Pain Positive: Shortness Of Breath - during episodes Neurological: Other - Slight R-sided facial droop (per daughter); Denies visual changes, unsteady gait and dropping items Positive: Headache - during episodes, resolved, Weakness - acute on chronic L- sided weakness , Slurred Speech - 4 episodes of slurred speech and aphasia All Other Systems Reviewed And Are Negative: Yes Physical Exam - Summary Physical Exam Summary: The patient is well-nourished in no acute distress and in no acute pain. The skin is warm and dry and skin color reflects adequate perfusion. HEENT: The head is normocephalic and atraumatic. The pupils are equal and reactive, EOMI. The conjunctivae are clear and without drainage. Nares are patent and without drainage. Mouth reveals moist mucous membranes and the throat is without erythema and exudate. The external ears are intact. Tongue is midline. Neck is supple with full range of motion and non-tender. There are no carotid bruits. There is no neck vein distension. Respiratory: Chest is non-tender. Lungs are clear to auscultation and breath sounds are symmetrical and equal. Cardiovascular: Hear is regular rate and rhythm. There is no murmur or rub auscultated. There is no peripheral edema and pulses are symmetrical and equal. Abdomen: The abdomen is soft, non-tender and obese. There are normal bowel sounds heard in all four quadrants and there is no organomegaly palpated. Musculoskeletal: There is no back pain noted. Extremities are non-tender with full range of motion. There is good capillary refill. There is no peripheral edema or calf tenderness elicited. Negative Babinski. Neurological: Patient is alert and oriented to person, place and time. The patient has symmetrical motor strength in all four extremities. Cranial nerves are grossly intact. Deep tendon reflexes are symmetrical and equal in all four extremities. There is no facial droop and no asymmetry of the face. Shoulder shrug was slightly weak in the L shoulder as compared with the right. She can bilaterally perform finger to nose. Both the RUE and LUE extremities show no pronator drift. She has trouble picking the LLE off the bed. Is able to do heel to duong on the right side. Obvious weakness in the LUE. Gross visual acuity at bedside shows no abnormalities. Speech is not slurred and deliberate. Psychiatric: The patient has an appropriate affect and does not exhibit any anxiety or depression. Triage Information Reviewed: Yes Vital Signs On Initial Exam: Initial Vitals Temp Pulse Resp 97.4 F 88 19 03/11/17 20:05 03/11/17 20:05 03/11/17 20:05 Vital Signs Reviewed: Yes - [place] Coma Scale Coma Scale Total: 15 Diagnostics - Vital Signs Vital Signs Temp Pulse Resp BP Pulse Ox 03/11/17 20:12 97.7 F 84 18 149/55 95 03/11/17 20:10 149/55 03/11/17 20:05 97.4 F 88 19 - Laboratory Lab Results: Lab Results 03/11/17 03/11/17 03/11/17 Range/Units 21:25 21:25 21:25 WBC 9.6 (3.5-10.8) 10^3/ul RBC 4.83 (4.0-5.4) 10^6/ul Hgb 13.6 (12.0-16.0) g/dl Hct 41 (35-47) % MCV 84 (80-97) fL MCH 28 (27-31) pg MCHC 34 (31-36) g/dl RDW 17 H (10.5-15) % Plt Count 186 (150-450) 10^3/ul MPV 9 (7.4-10.4) um3 Neut % (Auto) 47.0 (38-83) % Lymph % (Auto) 42.8 (25-47) % [place] % (Auto) 8.0 (1-9) % Eos % (Auto) 1.4 (0-6) % Baso % (Auto) 0.8 (0-2) % Absolute Neuts (auto) 4.5 (1.5-7.7) 10^3/ul Absolute Lymphs (auto) 4.1 (1.0-4.8) 10^3/ul Absolute Monos (auto) 0.8 (0-0.8) 10^3/ul Absolute Eos (auto) 0.1 (0-0.6) 10^3/ul Absolute Basos (auto) 0.1 (0-0.2) 10^3/ul Absolute Nucleated RBC 0.01 10^3/ul Nucleated RBC % 0.1 INR (Anticoag Therapy) 1.02 (0.89-1.11) Sodium 137 (133-145) mmol/L Potassium 4.2 (3.5-5.0) mmol/L Chloride 102 (101-111) mmol/L Carbon Dioxide 26 (22-32) mmol/L Anion Gap 9 (2-11) mmol/L BUN 13 (6-24) mg/dL Creatinine 0.56 (0.51-0.95) mg/dL Est GFR ( Amer) 145.1 (>60) Est GFR (Non-Af Amer) 112.8 (>60) BUN/Creatinine Ratio 23.2 H (8-20) Glucose 134 H (70-100) mg/dL Lactic Acid (0.5-2.0) mmol/L Calcium 9.3 (8.6-10.3) mg/dL Total Bilirubin 0.40 (0.2-1.0) mg/dL AST 12 L (13-39) U/L ALT 14 (7-52) U/L Alkaline Phosphatase 47 (34-104) U/L Troponin I 0.00 (<0.04) ng/mL Total Protein 6.7 (6.4-8.9) g/dL Albumin 4.0 (3.2-5.2) g/dL Globulin 2.7 (2-4) g/dL Albumin/Globulin Ratio 1.5 (1-3) Triglycerides 340 mg/dL Cholesterol 184 mg/dL LDL Cholesterol 76 mg/dL HDL Cholesterol 40.3 mg/dL Valproic Acid 51.0 (50-100) mcg/mL 03/11/17 Range/Units 21:25 WBC (3.5-10.8) 10^3/ul RBC (4.0-5.4) 10^6/ul Hgb (12.0-16.0) g/dl Hct (35-47) % MCV (80-97) fL MCH (27-31) pg MCHC (31-36) g/dl RDW (10.5-15) % Plt Count (150-450) 10^3/ul MPV (7.4-10.4) um3 Neut % (Auto) (38-83) % Lymph % (Auto) (25-47) % [place] % (Auto) (1-9) % Eos % (Auto) (0-6) % Baso % (Auto) (0-2) % Absolute Neuts (auto) (1.5-7.7) 10^3/ul Absolute Lymphs (auto) (1.0-4.8) 10^3/ul Absolute Monos (auto) (0-0.8) 10^3/ul Absolute Eos (auto) (0-0.6) 10^3/ul Absolute Basos (auto) (0-0.2) 10^3/ul Absolute Nucleated RBC 10^3/ul Nucleated RBC % INR (Anticoag Therapy) (0.89-1.11) Sodium (133-145) mmol/L Potassium (3.5-5.0) mmol/L Chloride (101-111) mmol/L Carbon Dioxide (22-32) mmol/L Anion Gap (2-11) mmol/L BUN (6-24) mg/dL Creatinine (0.51-0.95) mg/dL Est GFR ( Amer) (>60) Est GFR (Non-Af Amer) (>60) BUN/Creatinine Ratio (8-20) Glucose (70-100) mg/dL Lactic Acid 2.5 H* (0.5-2.0) mmol/L Calcium (8.6-10.3) mg/dL Total Bilirubin (0.2-1.0) mg/dL AST (13-39) U/L ALT (7-52) U/L Alkaline Phosphatase (34-104) U/L Troponin I (<0.04) ng/mL Total Protein (6.4-8.9) g/dL Albumin (3.2-5.2) g/dL Globulin (2-4) g/dL Albumin/Globulin Ratio (1-3) Triglycerides mg/dL Cholesterol mg/dL LDL Cholesterol mg/dL HDL Cholesterol mg/dL Valproic Acid (50-100) mcg/mL Result Diagrams: 03/11/17 21:25 03/11/17 21:25 Lab Statement: Any lab studies that have been ordered have been reviewed, and results considered in the medical decision making process. - CT Brain CT CT Interpretation: No Acute Changes - INTERVAL RESOLUTION OF LEFT FRONTOPARIETAL SUBDURAL HEMATOMA. NO ACUTE INTRACRANIAL PATHOLOGY. CT Interpretation Completed By: Radiologist - EKG 2042 Cardiac Rate: NL - 80 bpm EKG Rhythm: Sinus Rhythm EKG Interpretation: Left axis deviation in V4, poor R wave progression, no STEMI NIH Scale - NIH Scale Level of Consciousness: Alert/Keenly Responsive Ask Patient the Month and His/Her Age: Both Correct Ask Pt to Open/Close Eyes and Clinical Data Specialist/Release Non-Paretic Hand: Both Correctly Best Gaze (Only Horizontal Eye Movement): Normal Visual Field Testing: No Visual Loss Facial Paresis-Pt to Smile & Close Eyes or Grimace Symmetry: Normal/Symmetrical Motor Function - Right Arm: No Drift-Holds 10 Seconds Motor Function - Left Arm: No Drift-Holds 10 Seconds Motor Function - Right Leg: No Drift-Holds 10 Seconds Motor Function - Left Leg: Effort Against Parnell Limb Ataxia-Must be out of Proportion to Weakness Present: Absent Sensory (Use Pinprick to Test Arms/Legs/Trunk/Face): Normal Best Language (Describe Picture, Name Items): No Aphasia Dysarthria (Read Several Words): Normal Extinction and Inattention: No Abnormality Total Score: 2 Re-Evaluation - Re-Evaluation First Eval Re-Evaluation Time: 21:35 Change: Unchanged Comment: Reports she did not take her regular medications today. Course/Dx - Course Course Of Treatment: Pt is a 56 y/o F BIBA who presents to ED s/p 4 episodes of slurred speech and aphasia between 0800 and 1830 today. Additionally c/o SOB, KHANNA and acute on chronic L-sided weakness (residual L-sided weakness secondary to prior TIA) during episodes. Daughter reports she believes there was also slight R-sided facial droop. Denies fever, visual changes, unsteady gait, dropping items and CP. PMHx TIA, CVA, Moyamoya Disease. PSHx brain surgery (2x this year). Discussed care of pt with Dr. Rogers who advises an extra dose of 500 mg Depakote and 75 mg Plavis in the course of the ED, as well as patient admission. Lactic acid 2.5. Brain CT reveals "INTERVAL RESOLUTION OF LEFT FRONTOPARIETAL SUBDURAL HEMATOMA. NO ACUTE INTRACRANIAL PATHOLOGY." EKG reveals left axis deviation in V4 and poor R wave progressions with no STEMI. Discussed care of pt with Dr. Gregory, who accepts pt for admission. Pt will be admitted with Dx of TIA, Moyamoya disease, Hx bipolar disorder and Hx seizure disorder. 30 minutes critical care time. - Differential Dx Differential Diagnoses Neuro: Positive: Cerebrovascular Accident, Hypoglycemia, Metabolic Abnormality, Seizure Disorder, Transient Ischemic Attack - Diagnoses Provider Diagnoses: TIA (transient ischemic attack), Moyamoya disease, History of bipolar disorder , History of seizure disorder - Physician Notifications Discussed Care Of Patient With: Raf Rogers Time Discussed With Above Provider: 21:20 Instructed by Provider To: Other - Advises pt receives an extra dose of 500 mg of Depakote in the ED and that her daily dose gets raised to 1000 mg Depakote 2x per day. Also recommends 75 mg Plavix in the ED as well as pt admission to the hospital. Discussed care of pt with Dr. Gregory at 2148 (Hospitalist) who accepts pt for admission. - Critical Care Time Critical Care Time: 30-74 min - 30 minutes - extensive review of old medical records Discharge - Discharge Plan Condition: Stable Disposition: ADMITTED TO [facility] documentation as recorded by the Nikhil españa Rebecca accurately reflects the service I personally performed and the decisions made by me, Xander Pinto MD.
[2017-03-12] MEDS ORDERED: Heparin VIAL(*) 5000 UNITS/ML VIAL (FIVE THOUSAND) SUBCUT SCH (06:00)
[2017-03-12 07:05] LABS: Hematocrit 38 % (35-47); Hemoglobin 12.8 g/dl (12.0-16.0); Mean Corpuscular HGB Conc 33 g/dl (31-36); Mean Corpuscular Hemoglobin 28 pg (27-31); Mean Corpuscular Volume 85 fL (80-97); Mean Platelet Volume 9 um3 (7.4-10.4); Red Blood Count 4.51 10^6/ul (4.0-5.4); Red Cell Distribution Width 17 % (10.5-15); White Blood Count 8.5 10^3/ul (3.5-10.8)
[2017-03-12 07:20] LABS: BUN/Creatinine Ratio 17.6 (8-20); Calcium 8.8 mg/dL (8.6-10.3); EGFR Non-African American 90.2 (>60); HDL Cholesterol 35.7 mg/dL; Potassium 4.4 mmol/L (3.5-5.0)
[2017-03-12] MEDS: Insulin LISPRO* 1 UNITS UNIT SUBCUT SCH ×2 (07:43→12:03)
[2017-03-12] MEDS ORDERED: Carvedilol TAB* 6.25 MG PO SCH (08:00)
[2017-03-12] MEDS ORDERED: PARoxetine HCL TAB* 20 MG PO SCH (09:00)
[2017-03-12] MEDS ORDERED: CMCS: Pantoprazole TAB (NF) 40 MG TAB PO SCH (09:00)
[2017-03-12] MEDS ORDERED: Docusate CAP* 100 MG PO SCH (09:00)
[2017-03-12] MEDS ORDERED: Divalproex ER TAB(*) 500 MG PO SCH (09:00)
[2017-03-12] MEDS ORDERED: Multivitamins/Minerals TAB PO SCH (09:00)
[2017-03-12] MEDS ORDERED: Calcium Carbonate TAB* 1250 MG (CALCIUM 500 MG) PO SCH (09:00)
[2017-03-12] MEDS ORDERED: Clopidogrel TAB* 75 MG PO SCH (09:00)
[2017-03-12 13:05] VITALS: BP 142/69
--- NOTE | 2017-03-12 16:01 | PN ---
Hospitalist Progress Note . HOSPITALIST DISCHARGE NOTE: See dc instructions and summary by me. Patient stable for dc dc instructions reviewed with the patient at the bedside. DC patient home today.
[2017-03-12] MEDS ORDERED: Atorvastatin* 20 MG TAB PO SCH (17:00)
[2017-03-12] MEDS ORDERED: Gabapentin CAP(*) 300 MG PO SCH (21:00)
[2017-03-12] MEDS ORDERED: Famotidine TAB* 20 MG PO SCH (21:00)
[2017-03-12] MEDS ORDERED: Diltiazem CD CAP* 120 MG PO SCH (21:00)
[2017-03-12] MEDS ORDERED: Aspirin TAB* 325 MG PO SCH (21:00)
[2017-03-12] MEDS ORDERED: ASENAPINE 10 MG SL SCH (21:00)
[2017-03-12] MEDS ORDERED: Lisinopril TAB* 10 MG PO SCH (21:00)
--- NOTE | 2017-03-12 21:43 | CONS ---
CC: Dr. Zelaya; Dr. Calderón * NEUROLOGY CONSULTATION: DATE OF CONSULT: 03/12/17 REFERRING PROVIDER: Jorge A Waller NP CHIEF COMPLAINT: Episodes of shaking and left-sided weakness. HISTORY OF PRESENT ILLNESS: Jewels Sol is a 56-year-old right-handed woman, who presented to the hospital in the late afternoon yesterday with 4 episodes of repetitive shaking and left-sided weakness. She said she has had this going back over a year and on reviewing records, she saw Dr. Geraldo Calderón in December of 2015 with similar episodes, when she presented with episodes of confusion, difficulty speaking, and left-sided weakness. She was found to have Moyamoya syndrome at that point after evaluation. She has had repetitive episodes, typically about 1 per week of shaking which usually occurs in her sleep, this is mainly on her left side and then worsening of her chronic left-sided weakness. She had 4 episodes yesterday lasting anywhere from 5 to up to 15 minutes. She usually does not seek medical attention as they happen so many times, but after 4 episodes, her daughter convinced her to come in. She has had a standard EEG in 2015 and an ambulatory EEG this past October, which were negative. She was on Keppra for a while, but tapered off it. She remains on Depakote for bipolar disorder. She has had bilateral extracranial-intracranial artery bypasses or extracranial meningioma surgeries, not sure which, in [place] , by Dr. Crowe. The left side was complicated by subdural and small parenchymal hemorrhage. I am not sure if there is actually a parenchymal component when I reviewed the MRI, but that is how it was interpreted. In any case, she has been on aspirin therapy and had been on Plavix in the past. She has never had a spontaneous intracranial hemorrhage. Her MRIs revealed chronic changes, but there are no images that showed an acute stroke that I can see. Currently, she feels back to her baseline and that has been the case since the last episode since yesterday. She has chronic word finding difficulty apparently since the event in 2015. PAST MEDICAL HISTORY: Significant for morbid obesity, diabetes, hypertension, dyslipidemia, bipolar disorder, left carotid stenting in 2004, COPD, coronary artery disease, congestive heart failure. MEDICATIONS: At home, consist of: 1. Depakote 500 mg q.a.m. and 1000 mg q.h.s., recently decreased by her psychiatrist. 2. Alprazolam 1 mg q.h.s. p.r.n. 3. Albuterol inhalers q.6 hours. 4. Lipitor 20 mg p.o. q. day. 5. Aspirin 325 mg p.o. q. day. 6. Saphris 10 mg q.h.s. 7. Coreg 6.25 mg p.o. b.i.d. 8. Fioricet 1 q.6 hours p.r.n. headache. 9. Glimepiride 4 mg p.o. q. day. 10. Gabapentin 300 mg q.h.s. 11. Diltiazem 120 mg p.o. q.h.s. 12. Lisinopril 20 mg p.o. q. day. 13. Ranitidine 300 mg p.o. q. day. 14. Paxil 20 mg p.o. q. day. 15. Zofran 4 mg q.6 hours p.r.n. nausea. ALLERGIES: She lists as having allergies to AUGMENTIN, MORPHINE, DEMEROL, MACRODANTIN. REVIEW OF SYSTEMS: Notable for episodic headaches, but none recently. She is chronically unsteady, but no falls. No recent fevers or chills. No recent coughs or upper respiratory symptoms. No change in vision. She has not been sleeping well lately. PHYSICAL EXAM: She is morbidly obese. Temperature 98.4, blood pressure 135/55 , heart rate in the 70s and regular, respirations 18, and oxygen saturation 97% on nasal cannula. Lungs are clear. Heart tones are distant, but I do not hear any murmurs. Neck is supple. She has a right carotid bruit. Neurologically, pupils react equally from 3 to 2 mm. Funduscopic exam reveals cotton wool spots. Eye movements are normal and visual franco are full to confrontation. Facial musculature appears symmetric. Facial sensation to light touch is diminished in the left face. Palate and tongue appear normal and speech is clear without dysarthria. Hearing is intact bilaterally. Neck strength seems normal. 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 There is no pronator drift. She has grade 4 left hip flexor and grade 4+ left ankle dorsiflexor weakness. Strength in the right seems fairly normal. Sensory exam reveals intact to light touch in upper and lower extremities, subjectively less on the left hand than the right. She is areflexic. Plantars are flexor. Finger taps are slow on the left hand. There is no tremor. There is normal coordination on the right. Speech is occasionally halting, but generally fluent. Rarely, she has word finding problems. Memory seems very good and she is a good historian. DIAGNOSTIC STUDIES/LAB DATA: Includes an unremarkable CBC, chemistry profile notable for lactic acid 2.5 yesterday and 3.4 this morning. Her glucose is 151 this morning. Cholesterol 161, triglycerides 383, LDL 49. Depakote level yesterday, which was at 2125, was 51. INR normal at 1.02. MRI from 01/06/17 is reviewed and described above. CT scan of the brain yesterday was reviewed and reveals resolution of her prior subdural hematomas and hypodensity in the frontal region, a little more in the right than the left, which is mild and appears chronic. IMPRESSION AND PLAN: Ms. Sol's repetitive episodes sound more like partial seizures than recurrent transient ischemic attacks. Certainly, she is at risk for both. She has had these for so long and so repetitively, it seems unlikely that these are transient ischemic attacks, however, and the risk of aspirin plus Plavix in a patient who has had subdural hemorrhages just a few months ago , I think is too greater risk. Therefore, I recommend switching her back to just aspirin antiplatelet therapy. Recommend increasing her Depakote on the premise that these might be partial seizures in spite of her normal EEGs. When she did have a 24-hour EEG, she did not have any episodes. She would like to go home and I think the index of suspicion that she has had an acute cerebrovascular event is low enough that her MRI could be done tomorrow as an outpatient. I have discussed my impression with Jorge A Waller NP. [id number]/[facility] #: [id number] SAURAV
--- NOTE | 2017-03-13 04:14 | DS ---
CC: Dr. Zelaya, [facility]; Dr. Rogers * DISCHARGE SUMMARY: DATE OF ADMISSION: 03/11/17 DATE OF DISCHARGE: 03/12/17 STATUS DURING HOSPITALIZATION: Observation. PRIMARY CARE PROVIDER: Dr. Ang Zelaya. CONSULTING NEUROLOGIST: Dr. Raf Rogers. PRINCIPAL DISCHARGE DIAGNOSES: Left-sided weakness and difficulty with speech and dizziness presumably secondary to seizure with transient ischemic attack less likely. SECONDARY DIAGNOSES: 1. Obesity. 2. Diabetes. 3. Obstructive sleep apnea. 4. Hypertension. 5. Hyperlipidemia. 6. History of transient ischemic attack. 7. Bipolar disorder. 8. Congestive heart failure. 9. Borderline personality disorder. 10. Moyamoya disease. 11. History of cerebrovascular accident. 12. Depression. 13. Chronic kidney disease. 14. Chronic obstructive pulmonary disease. 15. Gastroesophageal disease. 16. Angina. DISCHARGE MEDICATION REGIMEN: 1. Increase Depakote to 1000 mg by mouth twice daily from 1500 mg total daily dose. Continue all other medications includin. Albuterol 2 puffs every 6 hours as needed for shortness of breath. 2. Xanax 1 mg at bedtime as needed. 3. Lipitor 20 mg by mouth daily. 4. Aspirin 325 mg by mouth daily. 5. Saphris 10 mg sublingually at bedtime. 6. Coreg 6.25 mg by mouth twice daily. 7. Calcium 500 mg by mouth twice daily. 8. Fioricet 1 capsule every 6 hours as needed. 9. Victoza 1.8 mg subcu q.p.m. 10. Prevacid 30 mg by mouth daily. 11. Glimepiride 4 mg by mouth daily. 12. Gabapentin 300 mg by mouth at bedtime. 13. Colace 100 mg by mouth twice daily. 14. Diltiazem 120 mg by mouth daily at bedtime. 15. Nystatin 1 application topically twice daily as needed. 16. Multivitamin 1 tablet by mouth once daily. 17. Lisinopril 20 mg by mouth daily. 18. Ranitidine 300 mg by mouth daily. 19. Paxil 20 mg by mouth daily. 20. Zofran 4 mg by mouth every 6 hours as needed. HISTORY OF PRESENT ILLNESS/HOSPITAL COURSE: Please see the H and P by Jorge A Waller NP under the supervision of Dr. Bay Gregory. In brief, Ms. Sol is a 56-year-old female with an extensive medical history as detailed above who came to the emergency room with multiple episodes (5 or 6) of feeling dizzy with room spinning and lightheadedness. Her speech was impaired relative to her baseline. She thought her left side was more weak than it is at baseline. There was no facial droop reported by the patient, although the patient's daughter thinks she may have noticed a right facial droop. These episodes would last approximately 15 minutes. The patient denied other symptomatology like chest pain or shortness of breath. The patient came to the emergency room because of the recurrent nature of the symptoms. The patient has had multiple intracranial surgeries for moyamoya disease at the [facility] and at the second surgery she had a stroke and since then, has been having significant trouble with her speech. The patient was seen by Dr. Raf Rogers in consultation who recommended increasing her Depakote dose to 2000 mg daily as detailed above. He is going to arrange an outpatient MRI of the brain and the patient is going to continue on her aspirin as previously prescribed. The patient may follow up with Dr. Rogers and he will follow up regarding that, but at the present, the patient is stable for discharge and eager to leave. The patient was on observation status and can come back to the hospital if she has recurrent worrisome symptoms including, but not limited to recurrent episodes of focal weakness, intractable headache or any other worrisome symptoms. CONDITION AT DISCHARGE: Stable. TIME SPENT: Total time taken to discharge Ms. Sol was 45 minutes, greater than half the time was spent going over the discharge instructions at the bedside face- to-face with the patient. [id number]/[facility] #: [id number] SAURAV
== END 2017-03-12 16:50 | disposition home or self-care (01) ==
LOC: ED 20:02 → MEDTELE 22:10
PROVIDERS: ADMIT Hospitalist; ATTEND Internal Medicine
DX: R53.1 Weakness (principal); E11.8 Type 2 diabetes mellitus with unspecified complications; G47.33 Obstructive sleep apnea (adult) (pediatric); I10 Essential (primary) hypertension; E78.5 Hyperlipidemia, unspecified; G45.9 Transient cerebral ischemic attack, unspecified; I50.9 Heart failure, unspecified; F31.9 Bipolar disorder, unspecified; Z86.73 Personal history of transient ischemic attack (TIA), and cerebral infarction without residual deficits; R47.81 Slurred speech; N18.9 Chronic kidney disease, unspecified; I67.5 Moyamoya disease; R47.01 Aphasia; J44.9 Chronic obstructive pulmonary disease, unspecified; Z87.891 Personal history of nicotine dependence; R06.02 Shortness of breath; R51 Headache; E66.9 Obesity, unspecified; I20.9 Angina pectoris, unspecified
CPT/HCPCS: 36415; 70450; 80048; 80053; 80061; 80164; 81003; 81015; 83036; 83605; 84484; 85025; 85610; 87077; 87086; 93005; 94760; 99284; A9270-GY; G0378; J1644

== ENCOUNTER 2017-04-16 16:01 | Emergency (ER) | payer MEDICARE, MEDICAID ==
[2017-04-16] MEDS ORDERED: diPHENhydraMINE IV* 50 MG/ML 1 ml VIAL (BENADRYL) IV ONE (17:16)
[2017-04-16] MEDS ORDERED: NS 0.9% 1000 ML* 1,000 ML IV ONE (17:16)
[2017-04-16] MEDS ORDERED: Metoclopramide IV* 5 MG/ML 2 ML VIAL IV ONE (17:16)
[2017-04-16] MEDS ORDERED: Ketorolac INJ* 30 MG/ML 1 ML VIAL IV ONE (17:16)
--- NOTE | 2017-04-16 18:18 | RAD ---
Indication: Headache. CT of the brain was performed without IV contrast. Comparison is made with previous exam dated March 11, 2017. Ventricular structures are midline. No midline shift is noted. The extra-axial spaces are unremarkable. There is no evidence of intracranial mass or hemorrhage. No other high or low density lesions noted. Patient is status post craniotomy. Mastoid air cells and paranasal sinuses are otherwise unremarkable. IMPRESSION: Postoperative changes. No intracranial mass or hemorrhage is noted.
[2017-04-16 18:48] VITALS: BP 152/61
--- NOTE | 2017-04-16 22:19 | ED ---
Elizabeth Michaels Alok, scribed for Bill Frey MD on 04/16/17 at 1726 . Headache - HPI Summary HPI Summary: 56F presents to the ED for a frontal KHANNA with neck pain since yesterday. Pt tried taking her Fioricet for her KHANNA with no alleviation and states her KHANNA is photophobic. Pt also notes N/V/D this morning and last night. Pt has taken Zofran which improved her nausea. PMHx includes h/o KHANNA on and off since her brain surgeries in Oct 2016 and December 2016 but states that her current KHANNA is the worst it has been. Additional PMHx includes h/o stroke with right sided weakness. Pt notes adverse reaction to morphine. - History Of Current Complaint Chief Complaint: EDHeadache Stated Complaint: HEADACHE,VOMITING,DIARRHEA Time Seen by Provider: 04/16/17 16:59 Hx Obtained From: Patient Hx Last Menstrual Period: not since 2009 Onset/Duration: Started days ago, Still Present Initially Headache Was: Moderate Currently Pain Is: Moderate Timing: Constant Location of Headache: Frontal Aggravating Factor: Bright Lights Allevating Factors: Medication - Zofran alleviated nausea Associated Signs And Symptoms: Nausea, Vomiting, Neck Pain, Other (Noted In Comments) - diarrhea - Allergies/Home Medications Allergies/Adverse Reactions: Allergies Allergy/AdvReac Type Severity Reaction Status Date / Time Nitrofurantoin Allergy Severe Rash Verified 04/16/17 16:32 [From Macrobid] Clavulanic Acid AdvReac Intermediate Nausea And Verified 04/16/17 16:32 [From Augmentin] Vomiting Meperidine [From Demerol HCl] AdvReac Intermediate Headache Verified 04/16/17 16 :32 Morphine AdvReac Nausea Verified 04/16/17 16:32 PMH/Surg Hx/FS Hx/Imm Hx Endocrine/Hematology History: Reports: Hx Diabetes, Other Endocrine/ Hematological Disorders Denies: Hx Thyroid Disease, Hx Anemia Cardiovascular History: Reports: Hx Angina, Hx Angioplasty, Hx Coronary Artery Disease, Hx Hypercholesterolemia, Hx Hypertension, Other Cardiovascular Problems /Disorders Denies: Hx Aneurysm, Hx Auto Implanted Cardiovert Defib, Hx Cardiac Arrest, Hx Cardiomegaly, Hx Congenital Heart Disease, Hx Congestive Heart Failure, Hx Deep Vein Thrombosis, Hx Hypotension, Hx Myocardial Infarction, Hx Pacemaker/ICD , Hx Peripheral Vascular Disease, Hx Rheumatic Fever, Hx Syncope, Hx Valvular Heart Disease Respiratory History: Reports: Hx Asthma, Hx Chronic Bronchitis, Hx Chronic Obstructive Pulmonary Disease (COPD) - O2 at home, Hx Pneumonia, Hx Sleep Apnea , Other Respiratory Problems/Disorders - PNEUMONIA IN 2001 Denies: Hx Cystic Fibrosis, Hx Lung Cancer, Hx Pleural Effusion, Hx Pulmonary Edema, Hx Pulmonary Embolism, Hx Seasonal Allergies GI History: Reports: Hx Gastroesophageal Reflux Disease, Other GI Disorders - "sphincter in stomach not working" Denies: Hx Cirrhosis, Hx Crohn's Disease, Hx Diverticulosis, Hx Gall Bladder Disease, Hx Gastrointestinal Bleed, Hx Hiatal Hernia, Hx Irritable Bowel, Hx Jaundice, Hx Obstructive Bowel, Hx Ileostomy, Hx Pyloric Stenosis, Hx Ulcer History: Reports: Hx Chronic Renal Failure, Hx Renal Disease, Other Problems/Disorders - chronic kidney disease Denies: Hx Dialysis Musculoskeletal History: Reports: Hx Back Problems, Hx Scoliosis Sensory History: Reports: Hx Contacts or Glasses, Hx Vision Problem Denies: Hx Hearing Aid Opthamlomology History: Reports: Hx Contacts or Glasses, Hx Vision Problem Neurological History: Reports: Hx Headaches, Hx Seizures, Hx Transient Ischemic Attacks (TIA) Comment Only: Other Neuro Impairments/Disorders - Hx of 2 TIA. Hx moyamoya disease. 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 Hx Chemotherapy: No Hx Radiation Therapy: No - Surgical History Surgery Procedure, Year, and Place: uterine ablation, appendectomy, 2 bladder cystoscopies, c-sections, endoderectomy 2004, stent and balloon LICA 2005 & 2006 ( [employer] SCIENTIFIC WALLSTENT - SAFE AT 1.5T AND 3T WITH EVERETTE 2.0 W/KG 15 MINS LIMITATION) , tubal ligation, arterial bypass in the brain Hx Anesthesia Reactions: No - Immunization History Date of Tetanus Vaccine: Unknown Date of Influenza Vaccine: 06/17 Infectious Disease History: No Infectious Disease History: Denies: Hx Clostridium Difficile, Hx Hepatitis, Hx Human Immunodeficiency Virus (HIV), Hx of Known/Suspected MRSA, Hx Shingles, Hx Tuberculosis, Hx Known/ Suspected VRE, Hx Known/Suspected VRSA, History Other Infectious Disease, Traveled Outside the [place] in Last 30 Days - Family History Known Family History: Positive: Cardiac Disease, Other - bipolar disorder; alcohol abuse - Social History Occupation: Disabled Lives: With Family Alcohol Use: Rare Alcohol Amount: once/year Hx Substance Use: No Substance Use Type: Reports: None Hx Tobacco Use: Yes Smoking Status (MU): Former Smoker Type: Cigarettes Amount Used/How Often: quit in 2004 Have You Smoked in the Last Year: No Review of Systems Negative: Fever Positive: Photophobia Positive: Vomiting, Diarrhea, Nausea Positive: Other - Neck pain (acute). Right sided weakness (chronic) Positive: Headache All Other Systems Reviewed And Are Negative: Yes Physical Exam Triage Information Reviewed: Yes Vital Signs On Initial Exam: Initial Vitals Temp Pulse Resp BP Pulse Ox 97.4 F 83 16 148/84 95 04/16/17 16:12 04/16/17 16:12 04/16/17 16:12 04/16/17 16:12 04/16/17 16:12 Vital Signs Reviewed: Yes Appearance: Positive: Well-Appearing, No Pain Distress Skin: Positive: Diaphoretic Head/Face: Positive: Normal Head/Face Inspection Eyes: Positive: Normal ENT: Positive: Normal ENT inspection Neck: Positive: Other: - Paracervical Tenderness Respiratory/Lung Sounds: Positive: Clear to Auscultation, Breath Sounds Present Cardiovascular: Positive: RRR Abdomen Description: Positive: Nontender, Soft Bowel Sounds: Positive: Present Musculoskeletal: Positive: Other - Paracervical Tenderness Neurological: Positive: Normal, Other - No meningitis signs Psychiatric: Positive: Normal, Affect/Mood Appropriate - Sandra Coma Scale Coma Scale Total: 15 Diagnostics - Vital Signs Vital Signs Temp Pulse Resp BP Pulse Ox 04/16/17 16:39 96.5 F 74 22 152/57 94 04/16/17 16:30 96.5 F 76 22 152/57 94 04/16/17 16:12 97.4 F 83 16 148/84 95 - Laboratory Lab Statement: Any lab studies that have been ordered have been reviewed, and results considered in the medical decision making process. - CT Brain CT CT Interpretation: Positive (See Comments) - IMPRESSION: Postoperative changes. No intracranial mass or hemorrhage is noted. CT Interpretation Completed By: Radiologist Headache Course/Dx - Course Course Of Treatment: Ms. Sol presented with a typical KHANNA for her except that it was unrelieved by fioricet 2 days in a row. She underwent CT because of underlying brain pathology which was negative. She got very significant relief with a migraine cocktail. - Diagnoses Provider Diagnoses: Migraine headache Discharge - Discharge Plan Condition: Stable Disposition: HOME Patient Education Materials: General Headache (ED) Referrals: Ang Zelaya MD [Primary Care Provider] - Additional Instructions: Please follow up with your primary care provider The documentation as recorded by the Elizabeth españa Alok accurately reflects the service I personally performed and the decisions made by me, Bill Frey MD.
== END 2017-04-16 19:04 | disposition home or self-care (01) ==
LOC: ED 16:01
DX: G43.909 Migraine, unspecified, not intractable, without status migrainosus (principal); Z87.891 Personal history of nicotine dependence; E11.9 Type 2 diabetes mellitus without complications; E78.00 Pure hypercholesterolemia, unspecified; I10 Essential (primary) hypertension; I69.351 Hemiplegia and hemiparesis following cerebral infarction affecting right dominant side
CPT/HCPCS: 70450; 96360; 96374; 96375; 99282; J1200; J1885

== ENCOUNTER 2017-06-03 20:08 | Inpatient (IN) | payer MEDICARE, MEDICAID ==
[2017-06-03 21:05] LABS: Hematocrit 43 % (35-47); Hemoglobin 14.7 g/dl (12.0-16.0); Mean Corpuscular HGB Conc 35 g/dl (31-36); Mean Corpuscular Hemoglobin 29 pg (27-31); Mean Corpuscular Volume 84 fL (80-97); Mean Platelet Volume 8 um3 (7.4-10.4); Red Blood Count 5.07 10^6/ul (4.0-5.4); Red Cell Distribution Width 17 % (10.5-15); White Blood Count 10.3 10^3/ul (3.5-10.8)
[2017-06-03 21:21] LABS: ALT 15 U/L (7-52); AST 15 U/L (13-39); Alkaline Phosphatase 42 U/L (34-104); Anion Gap 10 mmol/L (2-11); BUN/Creatinine Ratio 25.3 (8-20); Blood Urea Nitrogen 19 mg/dL (6-24); CO2 Carbon Dioxide 25 mmol/L (22-32); Calcium 9.2 mg/dL (8.6-10.3); Chloride 103 mmol/L (101-111); EGFR African American 103.6 (>60); EGFR Non-African American 80.5 (>60); Glucose 146 mg/dL (70-100); Sodium 138 mmol/L (133-145)
[2017-06-03] MEDS ORDERED: oxyCODONE/Acetamin 5/325 MG* TAB PO ONE (21:42)
[2017-06-03 21:59] LABS: Acetaminophen < 15 mcg/mL; Alcohol < 10 mg/dL (<10); Salicylate < 2.50 mg/dL (<30)
[2017-06-03 22:09] LABS: TSH (Thyroid Stimulating Horm) 2.98 mcIU/mL (0.34-5.60)
[2017-06-03 22:24] LABS: PCO2 Arterial 43 mmHg (35-45)
[2017-06-03 22:55] LABS: Urine Bacteria 1+ (Absent); Urine Bilirubin Negative (Negative); Urine Glucose Negative (Negative); Urine Nitrite Positive (Negative)
[2017-06-03] MEDS ORDERED: Levofloxacin TAB* 500 MG PO ONE (22:57)
[2017-06-03 23:01] LABS: Benzodiazepine Urine Screen Presumptive Positive (None Detect)
--- NOTE | 2017-06-03 23:09 | ED ---
Vane Michaels SooYoung, scribed for Greg Goss on 06/03/17 at 2048 . Psychiatric Complaint - HPI Summary HPI Summary: A 56 y/o F presents to the ED with c/o depression and SI gesture onset approx noon. Pt took 3 Xanax [employer], pt's daughter prevented her from taking any more. Associated sx: CP, SOB. Pt states "nothing seems to matter," and due to her Moyamoya, she's unable to drive or go out. PMHx: bipolar disorder, DM, emphysema. Pt is on 2L home O2. Ambulates with walker. Former smoker. - History Of Current Complaint Chief Complaint: EDMentalHealth Time Seen by Provider: 06/03/17 20:32 Hx Obtained From: Patient Hx Last Menstrual Period: not since 2009 Onset/Duration: Lasting Hours, Still Present Timing: Constant Character: Depressed Associated Signs And Symptoms: Positive: Social Isolation Related History: Positive For: Prior Psychiatric Issues Has Suicidal: Reports: Demonstrates Gesture - Allergies/Home Medications Allergies/Adverse Reactions: Allergies Allergy/AdvReac Type Severity Reaction Status Date / Time Nitrofurantoin Allergy Severe Rash Verified 06/03/17 20:24 [From Macrobid] Clavulanic Acid AdvReac Intermediate Nausea And Verified 06/03/17 20:24 [From Augmentin] Vomiting Meperidine [From Demerol HCl] AdvReac Intermediate Headache Verified 06/03/17 20 :24 Morphine AdvReac Nausea Verified 06/03/17 20:24 Home Medications: Home Medications Butalb/Acetamin/Caff TAB* [Fioricet TAB*] 1 tab PO Q6H PRN 06/03/17 [History Confirmed 06/03/17] Desvenlafaxine Succinate [Pristiq] 100 mg PO QAM 06/03/17 [History Confirmed 11/18] PMH/Surg Hx/FS Hx/Imm Hx Previously Healthy: No Endocrine/Hematology History: Reports: Hx Diabetes, Other Endocrine/ Hematological Disorders Denies: Hx Thyroid Disease, Hx Anemia Cardiovascular History: Reports: Hx Angina, Hx Angioplasty, Hx Coronary Artery Disease, Hx Hypercholesterolemia, Hx Hypertension, Other Cardiovascular Problems /Disorders Denies: Hx Aneurysm, Hx Auto Implanted Cardiovert Defib, Hx Cardiac Arrest, Hx Cardiomegaly, Hx Congenital Heart Disease, Hx Congestive Heart Failure, Hx Deep Vein Thrombosis, Hx Hypotension, Hx Myocardial Infarction, Hx Pacemaker/ICD , Hx Peripheral Vascular Disease, Hx Rheumatic Fever, Hx Syncope, Hx Valvular Heart Disease Respiratory History: Reports: Hx Asthma, Hx Chronic Bronchitis, Hx Chronic Obstructive Pulmonary Disease (COPD) - O2 at home, Hx Pneumonia, Hx Sleep Apnea , Other Respiratory Problems/Disorders - PNEUMONIA IN 2001 Denies: Hx Cystic Fibrosis, Hx Lung Cancer, Hx Pleural Effusion, Hx Pulmonary Edema, Hx Pulmonary Embolism, Hx Seasonal Allergies GI History: Reports: Hx Gastroesophageal Reflux Disease, Other GI Disorders - "sphincter in stomach not working" Denies: Hx Cirrhosis, Hx Crohn's Disease, Hx Diverticulosis, Hx Gall Bladder Disease, Hx Gastrointestinal Bleed, Hx Hiatal Hernia, Hx Irritable Bowel, Hx Jaundice, Hx Obstructive Bowel, Hx Ileostomy, Hx Pyloric Stenosis, Hx Ulcer History: Reports: Hx Chronic Renal Failure, Hx Renal Disease, Other Problems/Disorders - chronic kidney disease Denies: Hx Dialysis Musculoskeletal History: Reports: Hx Back Problems, Hx Scoliosis Sensory History: Reports: Hx Contacts or Glasses, Hx Vision Problem Denies: Hx Hearing Aid Opthamlomology History: Reports: Hx Contacts or Glasses, Hx Vision Problem Neurological History: Reports: Hx Headaches, Hx Seizures, Hx Transient Ischemic Attacks (TIA) Comment Only: Other Neuro Impairments/Disorders - Hx of 2 TIA. Hx moyamoya disease. 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 Hx Chemotherapy: No Hx Radiation Therapy: No - Surgical History Surgery Procedure, Year, and Place: uterine ablation, appendectomy, 2 bladder cystoscopies, c-sections, endoderectomy 2004, stent and balloon LICA 2005 & 2006 ( [employer] SCIENTIFIC WALLSTENT - SAFE AT 1.5T AND 3T WITH EVERETTE 2.0 W/KG 15 MINS LIMITATION) , tubal ligation, arterial bypass in the brain Hx Anesthesia Reactions: No - Immunization History Date of Tetanus Vaccine: Unknown Date of Influenza Vaccine: 06/17 Infectious Disease History: Denies: Hx Clostridium Difficile, Hx Hepatitis, Hx Human Immunodeficiency Virus (HIV), Hx of Known/Suspected MRSA, Hx Shingles, Hx Tuberculosis, Hx Known/ Suspected VRE, Hx Known/Suspected VRSA, History Other Infectious Disease, Traveled Outside the [place] in Last 30 Days - Family History Known Family History: Positive: Cardiac Disease, Other - bipolar disorder; alcohol abuse - Social History Occupation: Unemployed Lives: With Family Alcohol Use: Rare Alcohol Amount: once/year Hx Substance Use: No Substance Use Type: Reports: None Hx Tobacco Use: Yes Smoking Status (MU): Former Smoker Type: Cigarettes Amount Used/How Often: quit in 2004 Have You Smoked in the Last Year: No Review of Systems Positive: Chest Pain Positive: Shortness Of Breath Positive: Depressed, Other - pos: SI with gesture All Other Systems Reviewed And Are Negative: Yes Physical Exam Triage Information Reviewed: Yes Vital Signs On Initial Exam: Initial Vitals Temp Pulse Resp 96.8 F 100 16 06/03/17 20:10 06/03/17 20:10 06/03/17 20:10 Vital Signs Reviewed: Yes Appearance: Positive: Well-Appearing, No Pain Distress Skin: Positive: Warm, Skin Color Reflects Adequate Perfusion, Dry Head/Face: Positive: Normal Head/Face Inspection Eyes: Positive: EOMI, GERMANIA ENT: Positive: Normal ENT inspection Neck: Positive: Supple, Nontender Respiratory/Lung Sounds: Positive: Clear to Auscultation, Breath Sounds Present Cardiovascular: Positive: RRR, Pulses are Symmetrical in both Upper and Lower Extremities Abdomen Description: Positive: Nontender, Soft Bowel Sounds: Positive: Present Musculoskeletal: Positive: Normal, Strength/ROM Intact Neurological: Positive: Normal, Sensory/Motor Intact, Alert, Oriented to Person Place, Time Psychiatric: Positive: Depressed Diagnostics - Vital Signs Vital Signs Temp Pulse Resp 06/03/17 20:10 96.8 F 100 16 - Laboratory Result Diagrams: 06/03/17 20:55 06/03/17 20:55 Lab Statement: Any lab studies that have been ordered have been reviewed, and results considered in the medical decision making process. - EKG 2023 Cardiac Rate: NL - 95bpm EKG Rhythm: Sinus Rhythm EKG Interpretation: no acute changes Course/Dx - Course Course Of Treatment: A 56 y/o F present with depression and SI onset approx noon. Pt took 3 Xanax [employer], pt's daughter prevented her from taking any more. Associated sx: CP, SOB. Pt states "nothing seems to matter," and due to her Moyamoya, she's unable to drive or go out. PMHx: bipolar disorder, DM, emphysema. Pt is on 2L home O2. Pt given Percocet in ED. Bloodwork and UA obtained. Pt is medically cleared at 2257 for [facility]HE. - Differential Dx/Clinical Impression Provider Diagnosis: Depression, Suicidal ideation, UTI (urinary tract infection) Discharge - Discharge Plan Condition: Stable Disposition: OTHER Discharge Disposition Comment: pending [facility] Referrals: Ang Zelaya MD [Primary Care Provider] - The documentation as recorded by the Vane españa SooYoung accurately reflects the service I personally performed and the decisions made by me, Greg Goss.
[2017-06-04] MEDS ORDERED: Ketorolac INJ* 60 MG/2 ML VIAL IM ONE (02:06)
[2017-06-04] MEDS ORDERED: Valproic Acid CAP(*) 250 MG PO ONE (07:43)
[2017-06-04] MEDS ORDERED: Carvedilol TAB* 6.25 MG PO ONE (07:47)
[2017-06-04] MEDS ORDERED: Glimepiride (NF) 2 MG TAB PO ONE (07:47)
[2017-06-04] MEDS ORDERED: Divalproex ER TAB(*) 500 MG PO ONE (08:02)
[2017-06-04] MEDS ORDERED: DESVENLAFAXINE 100 MG PO SCH (09:00)
[2017-06-04] MEDS ORDERED: Nystatin CREAM* 15 GM TUBE TOPICAL PRN (17:17)
[2017-06-04] MEDS ORDERED: Ondansetron TAB* 4 MG PO PRN (17:17)
[2017-06-04] MEDS ORDERED: Albuterol HFA INHALER* 8 gm MDI INH PRN (17:17)
[2017-06-04] MEDS: Diltiazem CD CAP* 120 MG PO SCH (20:13)
[2017-06-04] MEDS: Divalproex ER TAB(*) 500 MG PO SCH (20:13)
[2017-06-04] MEDS: Gabapentin CAP(*) 300 MG PO SCH (20:13)
[2017-06-04] MEDS: Docusate CAP* 100 MG PO SCH (20:13)
[2017-06-04] MEDS: Aspirin TAB* 325 MG PO SCH (20:13)
[2017-06-04] MEDS: Carvedilol TAB* 6.25 MG PO SCH (20:13)
[2017-06-04] MEDS: Lisinopril TAB* 10 MG PO SCH (20:14)
[2017-06-04] MEDS: ASENAPINE 10 MG SL SCH (20:15)
[2017-06-05] MEDS: Omeprazole CAP* 20 MG PO SCH (07:27)
[2017-06-05] MEDS ORDERED: glipiZIDE TAB* 5 MG PO SCH (09:00)
[2017-06-05] MEDS ORDERED: Desvenlafaxine (NF) 50 MG TAB PO SCH (09:00)
[2017-06-05] MEDS: Butalb/Acetamin/Caff TAB* 1 TAB PO PRN (09:46)
[2017-06-05] MEDS: Divalproex ER TAB(*) 500 MG PO SCH ×2 (09:47→20:32)
[2017-06-05] MEDS: Carvedilol TAB* 6.25 MG PO SCH ×2 (09:48→20:33)
[2017-06-05] MEDS: DESVENLAFAXINE 100 MG PO SCH (09:48)
[2017-06-05] MEDS: Multivitamins/Minerals TAB PO SCH (09:49)
[2017-06-05] MEDS: Docusate CAP* 100 MG PO SCH ×2 (09:49→20:32)
[2017-06-05] MEDS ORDERED: Influenza VAC *QUAD* 2017-18* 0.5 ML SYRINGE IM ONE (14:00)
[2017-06-05] MEDS: ALPRAZolam TAB* 0.5 MG PO PRN (14:04)
--- NOTE | 2017-06-05 15:09 | ADMNOTE ---
Identification - Identify Employment Status: Disabled - Both mentally and physically. History - Objective HPI: 56 y/o WF with multiple physical/Neurological illnesses and known h/o Bipolar d/ o was admitted on BSU following an observed attempt to OD on Xanax by her daughter who brought her to the ED for help. Jewels reports that for last few weeks her depression was worsening and she was thinking about suicide for about a week. Lab Results: Laboratory Tests 06/05/17 06/05/17 07:47 11:37 POC Glucose (mg/dL) 139 H 164 H Exam Appearance: Obese Hygiene: Mal-odorous Grooming: Disheveled Psychomotor Activities: Normal Exhibits Abnormal Movement: No Attitude and Relatedness: Appropriate Eye Contact: Good - Speech Quality: Unpressured Latencies: Normal Quantity: Appropriate Patient's Decription of Mood: "Sad" Observed Affect: Tearful Patient's Thought Process: Coherent, Goal Directed Thought Content: Yes Passive Wish, No Suicidal Planning, No Homicidal Ideation, No Paranoid Ideation Experiencing Hallucinations: No, Sensorium is Clear Type of Hallucinations: Visual: No, Auditory: No, Command: No Level of Consciousness: Alert Orientation: Yes Intact, Yes Orientated to Time, Yes Orientated to Place, Yes Orientated to Person Impulse Control: Impaired Insight and Judgement: Impaired Impression - Impression Clinical Impression: 56 y/o female known to this unit from prior hospitalizations readmitted due to an observed suicide gesture by her daughter in the context of worsening stresses and depression. - Gardner III Medical Illness: Multiple chronic disabling medical/Neurological conditions. Plan - Treatment Plan Continued Medication Management: Continue Outpt Medication Medications: Current Medications Acetaminophen/Butalbital/Caffeine (Fioricet Tab*) 1 tab PO Q6H PRN PRN Reason: MIGRAINE HEADACHE Last Admin: 06/05/17 09:46 Dose: 1 tab Albuterol (Ventolin Hfa Inhaler*) 2 puff INH Q6H PRN PRN Reason: SHORTNESS OF BREATH Alprazolam (Xanax Tab*) 1 mg PO BEDTIME PRN PRN Reason: ANXIETY Last Admin: 06/05/17 14:04 Dose: 1 mg Asenapine (Saphris(Nf)) 10 mg SL BEDTIME JULIANA Last Admin: 06/04/17 20:15 Dose: 10 mg Aspirin (Aspirin Tab*) 325 mg PO BEDTIME JULIANA Last Admin: 06/04/17 20:13 Dose: 325 mg Atorvastatin Calcium (Lipitor*) 20 mg PO 1700 [facility] Carvedilol (Coreg Tab*) 6.25 mg PO BID [facility] Last Admin: 06/05/17 09:48 Dose: 6.25 mg Desvenlafaxine Succinate (Pristiq(Nf)) 100 mg PO DAILY [facility] Last Admin: 06/05/17 09:48 Dose: 100 mg Diltiazem HCl (Cardizem Cd Cap*) 120 mg PO BEDTIME [facility] Last Admin: 06/04/17 20:13 Dose: 120 mg Divalproex Sodium (Depakote Er Tab(*)) 1,000 mg PO BID [facility] Last Admin: 06/05/17 09:47 Dose: 1,000 mg Docusate Sodium (Colace Cap*) 100 mg PO BID [facility] Last Admin: 06/05/17 09:49 Dose: 100 mg Gabapentin (Neurontin Cap(*)) 300 mg PO BEDTIME [facility] Last Admin: 06/04/17 20:13 Dose: 300 mg Glipizide (Glucotrol Tab*) 5 mg PO DAILY [facility] Last Admin: 06/05/17 09:46 Dose: 5 mg Lisinopril (Prinivil Tab*) 20 mg PO BEDTIME [facility] Last Admin: 06/04/17 20:14 Dose: 20 mg Multivitamins/Minerals (Theragran/Minerals Tab*) 1 tab PO QAM [facility] Last Admin: 06/05/17 09:49 Dose: 1 tab Nystatin (Nystatin Cream*) 1 applic TOPICAL BID PRN PRN Reason: ITCHING Omeprazole (Prilosec Cap*) 20 mg PO QAM [facility] Last Admin: 06/05/17 07:27 Dose: 20 mg Ondansetron HCl (Zofran Tab*) 4 mg PO Q6H PRN PRN Reason: NAUSEA/VOMITING - Discharge Plan Discharge Plan: Outpatient [facility]
--- NOTE | 2017-06-05 15:12 | HP ---
HISTORY AND PHYSICAL: DATE OF ADMISSION: 06/04/17 IDENTIFYING DATA: Jewels is a 56-year-old physically disabled female with prior history of multiple psychiatric hospitalizations locally and in [facility], was brought in by her daughter after she observed her mother taking extra Xanax pills with plans to take the entire bottle along with rest of her psychotropic medications including Wellbutrin and gabapentin with an intention of committing suicide. CHIEF COMPLAINT: "I feel so guilty all the time and I have been suicidal for at least a week now." HISTORY OF PRESENT ILLNESS: This patient is known to this unit from a prior hospitalization back in January of this year almost under similar circumstances. The patient today reports that her depressive symptoms have been worsening lately in the context of her inability to go out and enjoy life as much as she used to in the past and she does not see any purpose of living like this and being burden on her daughters as well as the system. At this time, it got worse because of limited help from the sitter she gets as well as her daughters ' inability to take her out because they do not drive either. Her depressive symptoms worsened at least for several months and she has been feeling more sad , cry more frequently, feels helpless, worthless, and guilty about being a burden on others. Although suicide has been on her mind intensively for at least a week, she really did not want to do it because of her children and the caodaism she practices right now. Yesterday, when she could not go to a [employer] green party because of unavailability of transportation, she lost it totally and wanted to overdose on her medications. There are multiple other psychosocial stressors that have been having a serious impact on her mental health. Few of them are so important to her life and mental health. She lost her long-term therapist because of her therapist's physical health condition and is about to lose her psychiatrist as well because of policies of the clinic. Her psychiatrist, Dr. Weiss, just has started her on Wellbutrin and she has been hoping that that will make some difference. Today, she denies any manic, hypomanic, or psychotic symptoms. PAST PSYCHIATRIC HISTORY: As mentioned in the HPI that she has had at least 10 prior psychiatric hospitalizations including 3 in [facility] and 6 or 7 at [facility]. Her first psychiatric hospitalization was in [facility] when she was only 20 years old. She was diagnosed with bipolar disorder and most of the time she was hospitalized when she was in depressed phase of her illness. She goes to [facility] for appointments and her psychiatrist is Dr. Lacey Weiss. Rajiv Gonzalez was her therapist, which was recently changed to another therapist whom she has not met yet. Jewels is on multiple psychotropic medications including Xanax, Saphris, Pristiq, Depakote and gabapentin. Wellbutrin was recently added to her medication list. She is also on multiple medical medications. PAST MEDICAL HISTORY: Also remarkable for multiple chronic and disabling physical health conditions of which CHF, twv-etirlab-pluvgjnea diabetes mellitus , history of DVT, dyslipidemia, obstructive sleep apnea, hypertension, status post carotid endarterectomy, endometrial ablation, herniated disk at L4, L5, and S1, cerebrovascular accident during brain surgery, and so on. She is dependent on a walker for ambulation. PSYCHOSOCIAL HISTORY: Jewels was born and raised in [facility]. She moved to [place] in 2008. She has 2 daughters, both live with her and helps her with day-to- day personal activities. 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 Currently, physically disabled and totally dependent on her social security benefits. SUBSTANCE ABUSE HISTORY: Unremarkable. PHYSICAL EXAMINATION Physical exam was offered, she declined. I have reviewed the physical exam done in the emergency department, which appears unremarkable and there was no change from her prior physical examination. Vitals shows a temperature of 96.8, pulse 98, respirations 16. She is not in any physical distress at this time. LABORATORY DATA: Labs were mostly unremarkable except for her urinalysis, which shows indication of UTI. On hematology, WBC count of 10.3, hemoglobin 14.7, hematocrit 43, platelet count 201,000. Rest is within normal limits. On chem profile, sodium level of 138, potassium 4, chloride 103, carbon dioxide 25 , BUN 19, creatinine 0.75. GFR 80.5. Random blood glucose 146. Rest of the report appears normal. Urinalysis shows positive ketones, nitrites, 2+ wbc's, 3 + rbc with squamous epithelium present, urine bacteria 1+. Tox screen is positive for barbiturates and benzodiazepines, which matches with her medications that she takes on a regular basis. MENTAL STATUS EXAMINATION: Jweels is an obese, appropriately dressed, poorly groomed female, whose personal hygiene appears to be average. She is alert and oriented to time, place, and person. Makes good eye contact. Describes her mood as depressed. Observed affect appears to be dysphoric and was tearful during the entire period of the evaluation. Thought processes is logical and goal directed. Thought content is devoid of any delusions, although she continues to have suicidal thoughts. Denies any perceptual disturbances. Speech is normal in all spheres. Intelligence appears to be average as evidenced by a vocabulary and fund of knowledge and educational background. Memory function is intact in all spheres as well. Insight and judgement fair to good. CLINICAL SUMMARY: This 56-year-old female with long history of mental illness and multiple chronic and disabling physical health conditions has been feeling overwhelmed in the context of her inability to support herself and being dependent on aides or her children and was thinking about suicide for some time now. She also has a history of feeling depressed and suicidal in the past. At this time, she is hospitalized because of suicidal gesture by taking more than the usual dose of Xanax in the presence of her daughter. DIAGNOSTIC IMPRESSION: MENTAL HEALTH DIAGNOSIS: Bipolar I disorder, depressed type. PHYSICAL HEALTH DIAGNOSIS: All chronic physical healthy conditions mentioned in the physical health section. TREATMENT PLANS: Jewels will be hospitalized on the behavioral health unit. Her code status will remain full. I will continue her on her outpatient medications. Supportive milieu, individual, and group therapy will be initiated along with the safe discharge plan. [id number]/CPS #: [id number] MTDD
[2017-06-05] MEDS: Atorvastatin* 20 MG TAB PO SCH (18:12)
[2017-06-05] MEDS: Gabapentin CAP(*) 300 MG PO SCH (20:32)
[2017-06-05] MEDS: Aspirin TAB* 325 MG PO SCH (20:32)
[2017-06-05] MEDS: Lisinopril TAB* 10 MG PO SCH (20:32)
[2017-06-05] MEDS: Diltiazem CD CAP* 120 MG PO SCH (20:33)
[2017-06-05] MEDS ORDERED: Furosemide TAB* 20 MG PO ONE (20:37)
[2017-06-05] MEDS: Sulfamethox/Trimethoprim DS 800/160* TAB PO SCH (21:21)
[2017-06-05] MEDS: ASENAPINE 10 MG SL SCH (21:31)
--- NOTE | 2017-06-05 23:08 | CONS ---
CC: Dr. Castro; Dr. Ang Zelaya; Dr. Marty Ortega * CONSULTATION REPORT: DATE OF CONSULT: ATTENDING PHYSICIAN: Dr. Castro. PRIMARY CARE DOCTOR: Dr. Ang Zelaya. ATTENDING PHYSICIAN WHILE IN THE HOSPITAL: Dr. Marty Ortega. REASON FOR CONSULT: Co-management of medical comorbidities. HISTORY OF PRESENT ILLNESS: Ms. Sol is a 56-year-old female with a past medical history that is extensive but is significant for diabetes mellitus type 2, CHF, chronic kidney disease stage 1, stroke, and hypertension, who was admitted to the behavioral services unit on 06/03/17 for suicidal ideation secondary to her bipolar disorder. The patient is feeling much better psychiatrically, but patient had an urinalysis in the emergency department that revealed nitrites, leukocyte esterase and white blood cells as well as bacteria that then grew E. coli today. The patient has accompanying dysuria, night sweats, hematuria, and developed back pain today. Patient did not receive any antibiotics before today for her urinary tract infection. Patient denies any subjective fevers. Patient denies nausea or vomiting. Patient was also on glimepiride at home, which is not in the formulary and was started on Glucotrol this morning and developed diarrhea, which she says is a predictable reaction after being started on Glucotrol. Patient has 6 loose bowel movements today. Patient's blood sugars have been 139, 164, and 118 today, which represent very good control. Patient has Victoza at home additionally to glimepiride, which is not available in the hospital. Patient denies bright red blood in her stool. Patient denies dizziness or decrease in the frequency of urine with the diarrhea. Patient states that she got very constipated last time she was in the hospital and is actually is okay with the amount of diarrhea she is having, but states she would be willing to try a different glucose control agent due to risk of electrolyte imbalance. PAST MEDICAL HISTORY: Obesity, diabetes; obstructive sleep apnea; hyperlipidemia; hypertension; transient ischemic attack; CHF; chronic kidney disease, stage 1; COPD; GERD; [place]; borderline personality disorder; bipolar disorder, depressive type; and coronary artery disease. PAST SURGICAL HISTORY: Two intracranial procedures related to [place], C- section x2, carotid endarterectomy, appendectomy. MEDICATIONS AT HOME: 1. Prevacid 30 mg daily. 2. Multivitamin 1 tab daily. 3. Saphris 10 mg sublingual at bedtime. 4. Zantac 300 mg at bedtime. 5. Gabapentin 300 mg at bedtime. 6. Xanax 1 mg at bedtime as needed. 7. Victoza 1.8 mg subcutaneous at bedtime. 8. Albuterol 2 puffs q.6 hours as needed. 9. Glimepiride 4 mg daily. 10. Calcium 500 mg p.o. daily. 11. Diltiazem extended release 100 mg p.o. at bedtime. 12. Coreg 6.25 mg p.o. b.i.d. 13. Lipitor 20 mg p.o. daily. 14. Lisinopril 20 mg p.o. at bedtime. 15. Zofran 4 mg p.o. q.6 hours as needed. 16. Colace 100 mg p.o. b.i.d. 17. Fiorinal 1 cap p.o. q.6 hours as needed. 18. Aspirin 325 mg p.o. at bedtime. 19. Nystatin 1 application b.i.d. 20. Depakote 1000 mg p.o. b.i.d. 21. Fioricet 1 tab p.o. q.6 as needed. 22. Pristiq 100 mg p.o. every morning. ALLERGIES: The patient is allergic to MACROBID, CLAVULANIC ACID, MEPERIDINE, and MORPHINE. FAMILY HISTORY: The patient has a mother with diabetes mellitus and peripheral vascular disease and father with a brain tumor. SOCIAL HISTORY: The patient is a former smoker. The patient denies alcohol or illicit drugs. The patient's daughter is her surrogate decision maker and is very involved in her care. PHYSICAL EXAM: Vital Signs: On 06/05/17 at 7:10, temperature 98, pulse rate 81 , respiratory rate 16, oxygen saturation 97% on room air, blood pressure from at 3 p.m. 129/75. General: The patient is a 56-year-old female who appears her stated age, sitting on her bed in the behavioral services unit, in no acute distress. HEENT : Pupils dilated at 5 mm. They contract briskly to light. Sclerae anicteric. Pharynx, nonerythematous. Mucous membranes moist. Neck: Supple. No lymphadenopathy. Cardiac: Regular rate and rhythm. No clicks, murmurs, gallops, or rubs. Radial pulses, posterior tibialis pulses, and dorsalis pedis pulses 2+ bilaterally; 1+ pitting edema noted in patient's ankles. Respiratory: Clear to auscultation bilaterally. Good air exchange. No wheezes , rales, rhonchi. Abdomen: Obese, nondistended, nontender to palpation. Bowel sounds present in all 4 quadrants, normoactive. No abdominal bruits auscultated. No hepatosplenomegaly. : Slight suprapubic tenderness and profound CVA tenderness. More prominent on the left side than the right. Neuro: Cranial nerves II through XII intact. The patient is alert and oriented x3. Skin: Slightly diaphoretic, pink, warm, intact. DIAGNOSTIC STUDIES/LAB DATA: Labs from 06/03/17, white blood cells 10.3, hemoglobin 14.7, hematocrit 43, platelets 201. ABG, pH 7.37, pCO2 43, pO2 101, hCO3 24.4. Sodium 138, potassium 4.0, chloride 103, carbon dioxide 25, creatinine 0.75, BUN 19, GFR of 80.5, glucose 146, AST and ALT both 15. Troponin I 0. Urine, yellow, clear, positive nitrite, trace ketones, +2 leukocyte esterase, +3 white blood cells, 1+ bacteria. Toxicology positive for barbiturates and benzodiazepines. See HPI for atany-ob-uvdw glucoses from 06/05. IMPRESSION: The patient is a 56-year-old female with an extensive past medical history significant for diabetes, hypertension, chronic kidney disease, bipolar disorder depressive type, depressive episode, and borderline personality disorder, who we have been consulted on for co-management of her diabetes, diarrhea, and urinary tract infection. 1. Diabetes mellitus type 2, noninsulin dependent: We will discontinue Glucotrol despite good glucose control due to side effects. We will resume on home dose of glimepiride 4 g, which daughter will bring in from home. We will prescribe bowel regimen if indicated. We will continue fingersticks a.c. 2. Urinary tract infection: Possible pyelonephritis. Start the patient on Bactrim double strength b.i.d. 800/160 for 7 days and then reassess for continued antibiotic needs. We will start on probiotic to avoid diarrhea and Clostridium difficile infection. 3. Bipolar disorder, depressive episode, borderline personality disorder: Continue medications per primary team. 4. Hypertension: The patient's blood pressure is normotensive. We will continue home Coreg and lisinopril. 5. Hyperlipidemia: We will continue home Lipitor. 6. Congestive heart failure: We will order a one-time dose of Lasix to resolve the patient's lower leg edema. We will reassess for additional doses. 7. Chronic kidney disease: We will order BMP in the morning to assess any electrolyte abnormalities that may occur from the Lasix or from the diarrhea. 8. Gastroesophageal reflux disease: Continue home dose of omeprazole. 9. Obstructive sleep apnea: The patient has CPAP from home that she controls herself. 10. History of cerebrovascular accident: Continue the patient's secondary prevention including aspirin and Lipitor. 11. FEN: The patient is on a consistent carbohydrate diet and drinks 4 to 8 glass of water a day. 12. DVT prophylaxis: The patient is up ab elizabeth and is on aspirin. 13. Code status: The patient is a full code. 14. Disposition: The patient will remain admitted to the behavioral services unit per primary team. TIME SPENT: Approximately 60 minutes were spent on this consult; 30 of which were spent obtaining history and physical from the patient. The plan was discussed with my attending, Dr. Marty Ortega, and he is in agreement. MARLA ALLISON [id number]/CPS #: [id number] SAURAV
[2017-06-06 07:21] LABS: Hematocrit 42 % (35-47); Hemoglobin 14.1 g/dl (12.0-16.0); Mean Corpuscular HGB Conc 34 g/dl (31-36); Mean Corpuscular Hemoglobin 28 pg (27-31); Mean Corpuscular Volume 84 fL (80-97); Mean Platelet Volume 9 um3 (7.4-10.4); Red Blood Count 4.96 10^6/ul (4.0-5.4); Red Cell Distribution Width 17 % (10.5-15); White Blood Count 8.6 10^3/ul (3.5-10.8)
[2017-06-06] MEDS: Omeprazole CAP* 20 MG PO SCH (07:33)
[2017-06-06 07:48] LABS: BUN/Creatinine Ratio 22.9 (8-20); Calcium 9.4 mg/dL (8.6-10.3); EGFR African American 112.1 (>60); EGFR Non-African American 87.2 (>60); Potassium 4.6 mmol/L (3.5-5.0)
[2017-06-06] MEDS: Butalb/Acetamin/Caff TAB* 1 TAB PO PRN (07:54)
[2017-06-06] MEDS ORDERED: Furosemide TAB* 20 MG PO SCH (08:00)
[2017-06-06] MEDS: Divalproex ER TAB(*) 500 MG PO SCH ×2 (08:23→20:32)
[2017-06-06] MEDS: Carvedilol TAB* 6.25 MG PO SCH ×2 (08:23→20:33)
[2017-06-06] MEDS: CMCS Glimepiride (NF) 2 MG TAB PO SCH (08:23)
[2017-06-06] MEDS: Multivitamins/Minerals TAB PO SCH (08:23)
[2017-06-06] MEDS: Sulfamethox/Trimethoprim DS 800/160* TAB PO SCH ×2 (08:23→20:32)
[2017-06-06] MEDS: Lactobacillus Acidophilu (GG)* 1 CAP CAP PO SCH (08:23)
[2017-06-06] MEDS: Docusate CAP* 100 MG PO SCH ×2 (08:23→20:33)
[2017-06-06] MEDS: DESVENLAFAXINE 100 MG PO SCH (08:24)
--- NOTE | 2017-06-06 11:45 | PN ---
MHU: Group Therapy Note - Service Type Service Type: 14011 Group Psychotherapy - Cognitive Behavioral Group Therapy ( CBT):Patient was attentive and participatory in CBT programming this morning, and remained in good behavioral control. Patient expressed positive insights regarding relevant treatment interventions and goals.
--- NOTE | 2017-06-06 13:22 | PN ---
Subjective - Subjective Service Type: 86677 Hosp care 15 min low complexity Subjective: Dk is seen today for follow up, accompanied by her daughter. The patient states she's feeling better and denies active SI. She indicates that many of her problems stem from lack of transportation in the community following her last stroke in October,. 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 She's hoping this will augment her income and provide her with funds to use the local [employer] service to get out more. She expresses some concerns over the recent change in diabetic medications here in the hospital, as we do not have her Victoza on formulary and have replaced this with Glucotrol. She requests outdoor and comfort room privileges. Objective - Appearance Appearance: Well Developed/Nourished, Obese Dysmorphic Features: No Hygiene: Normal Grooming: Well Kept - Behavior Psychomotor Activities: Normal Exhibits Abnormal Movement: No - Attitude and Relatedness Attitude and Relatedness: Cooperative Eye Contact: Fair - Speech Quality: Unpressured Latencies: Normal Quantity: Appropriate - Mood Patient's Decription of Mood: "Sad" - Affect Observed Affect: Constricted Affect Consistent with: Dysphoria - Thought Process Patient's Thought Process: Coherent Thought Content: No Passive Wish, No Suicidal Planning, No Homicidal Ideation, No Paranoid Ideation - Sensorium Experiencing Hallucinations: No, Sensorium is Clear Type of Hallucinations: Visual: No, Auditory: No, Command: No - Level of Consciousness Level of Consciousness: Alert Orientation: Yes Intact, Yes Orientated to Time, Yes Orientated to Place, Yes Orientated to Person - Impulse Control Impulse Control: Tenuous - Insight and Judgement Insight and Judgement: Fair - Group Participation Particating in Group Activities: Yes - Medication Management Medication Management Adherence: Yes Assessment - Assessment Merits Inpatient Hospitalization: For Immediate Safety, For Stabilization Inpatient DSM-IV Dx: Bipolar Depression Clinical Impression: 56 y.o. recently disabled, single, white female with a history of bipolar disorder and stroke arriving with family after overdosing on 3 tabs of alprazolam and considering overdosing on bupropion and gabapentin due to depression. Plan - Plan Treatment Plan: Name: DK GREEN Birthdate: 1960 [id number] The patient's pristiq, bupropion, asenapine and gabapentin have been continued as prescribed as and outpatient. Bupropion was just initiated one week ago so we will see how she does as that kicks in. The patient is on voluntary status. Continue inpatient treatment. Continued Medication Management: Continue Outpt Medication Medications: Current Medications Acetaminophen/Butalbital/Caffeine (Fioricet Tab*) 1 tab PO Q6H PRN PRN Reason: MIGRAINE HEADACHE Last Admin: 06/06/17 07:54 Dose: 1 tab Albuterol (Ventolin Hfa Inhaler*) 2 puff INH Q6H PRN PRN Reason: SHORTNESS OF BREATH Alprazolam (Xanax Tab*) 1 mg PO BEDTIME PRN PRN Reason: ANXIETY Last Admin: 06/05/17 14:04 Dose: 1 mg Asenapine (Saphris(Nf)) 10 mg SL BEDTIME [facility] Last Admin: 06/05/17 21:31 Dose: 10 mg Aspirin (Aspirin Tab*) 325 mg PO BEDTIME [facility] Last Admin: 06/05/17 20:32 Dose: 325 mg Atorvastatin Calcium (Lipitor*) 20 mg PO 1700 [facility] Last Admin: 06/05/17 18:12 Dose: 20 mg Carvedilol (Coreg Tab*) 6.25 mg PO BID [facility] Last Admin: 06/06/17 08:23 Dose: 6.25 mg Desvenlafaxine Succinate (Pristiq(Nf)) 100 mg PO DAILY [facility] Last Admin: 06/06/17 08:24 Dose: 100 mg Diltiazem HCl (Cardizem Cd Cap*) 120 mg PO BEDTIME [facility] Last Admin: 06/05/17 20:33 Dose: 120 mg Divalproex Sodium (Depakote Er Tab(*)) 1,000 mg PO BID [facility] Last Admin: 06/06/17 08:23 Dose: 1,000 mg Docusate Sodium (Colace Cap*) 100 mg PO BID [facility] Last Admin: 06/06/17 08:23 Dose: 100 mg Gabapentin (Neurontin Cap(*)) 300 mg PO BEDTIME [facility] Last Admin: 06/05/17 20:32 Dose: 300 mg Glimepiride (Glimepiride (Nf)) 4 mg PO DAILY [facility] PRN Reason: Protocol Last Admin: 06/06/17 08:23 Dose: 4 mg Lactobacillus Rhamnosus (Culturelle*) 1 cap PO DAILY [facility] Last Admin: 06/06/17 08:23 Dose: 1 cap Lisinopril (Prinivil Tab*) 20 mg PO BEDTIME [facility] Last Admin: 06/05/17 20:32 Dose: 20 mg Multivitamins/Minerals (Theragran/Minerals Tab*) 1 tab PO QAM [facility] Last Admin: 06/06/17 08:23 Dose: 1 tab Nystatin (Nystatin Cream*) 1 applic TOPICAL BID PRN PRN Reason: ITCHING Omeprazole (Prilosec Cap*) 20 mg PO QAM [facility] Last Admin: 06/06/17 07:33 Dose: 20 mg Ondansetron HCl (Zofran Tab*) 4 mg PO Q6H PRN PRN Reason: NAUSEA/VOMITING Trimethoprim/Sulfamethoxazole (Bactrim Ds 800/160 Tab*) 1 tab PO BID [facility] Last Admin: 06/06/17 08:23 Dose: 1 tab - Discharge Plan Discharge Plan: Inpatient Hospitalization
[2017-06-06] MEDS: Atorvastatin* 20 MG TAB PO SCH (17:18)
[2017-06-06] MEDS: Aspirin TAB* 325 MG PO SCH (20:32)
[2017-06-06] MEDS: Gabapentin CAP(*) 300 MG PO SCH (20:32)
[2017-06-06] MEDS: Lisinopril TAB* 10 MG PO SCH (20:33)
[2017-06-06] MEDS: Diltiazem CD CAP* 120 MG PO SCH (20:33)
[2017-06-06] MEDS: ASENAPINE 10 MG SL SCH (21:12)
[2017-06-07] MEDS: Omeprazole CAP* 20 MG PO SCH (07:38)
[2017-06-07] MEDS: DESVENLAFAXINE 100 MG PO SCH (08:31)
[2017-06-07] MEDS: Lactobacillus Acidophilu (GG)* 1 CAP CAP PO SCH (08:32)
[2017-06-07] MEDS: Multivitamins/Minerals TAB PO SCH (08:32)
[2017-06-07] MEDS: Carvedilol TAB* 6.25 MG PO SCH ×2 (08:32→21:09)
[2017-06-07] MEDS: Sulfamethox/Trimethoprim DS 800/160* TAB PO SCH ×2 (08:32→21:09)
[2017-06-07] MEDS: CMCS Glimepiride (NF) 2 MG TAB PO SCH (08:32)
[2017-06-07] MEDS: Divalproex ER TAB(*) 500 MG PO SCH ×2 (08:32→21:08)
[2017-06-07] MEDS: Docusate CAP* 100 MG PO SCH ×2 (08:32→21:09)
[2017-06-07 09:12] LABS: HDL Cholesterol 40.3 mg/dL
--- NOTE | 2017-06-07 13:07 | PN ---
Subjective - Subjective Service Type: [id number] Hosp care 15 min low complexity Subjective: Patient remains anxious and easily overwhelmed. [place] treatment environmental field team member mention possible discharge today and became panicked. "I don't know what to do ? I haven't figured out a ride from my home health caregiver yet, and who's going to drive my CPAP machine back home for me? They picked it up from my house when I got on the unit." Patient is tolerating mediations well and denies untoward effects from the bupropion that she was started on by her outpatient provider last week. Patient is cooperative and active in milieu programming. Objective - Appearance Appearance: Obese Dysmorphic Features: No Hygiene: Normal Grooming: Fairly Well Kept - Behavior Psychomotor Activities: Normal Exhibits Abnormal Movement: No - Attitude and Relatedness Attitude and Relatedness: Cooperative Eye Contact: Fair - Speech Quality: Unpressured Latencies: Normal Quantity: Appropriate - Mood Patient's Decription of Mood: "Anxious" - Affect Observed Affect: Constricted Affect Consistent with: Dysphoria - Thought Process Patient's Thought Process: Coherent Thought Content: No Passive Wish, No Suicidal Planning, No Homicidal Ideation, No Paranoid Ideation - Sensorium Experiencing Hallucinations: No, Sensorium is Clear Type of Hallucinations: Visual: No, Auditory: No, Command: No - Level of Consciousness Level of Consciousness: Alert Orientation: Yes Intact, Yes Orientated to Time, Yes Orientated to Place, Yes Orientated to Person - Impulse Control Impulse Control: Intact - Insight and Judgement Insight and Judgement: Good - Group Participation Particating in Group Activities: Yes - Medication Management Medication Management Adherence: Yes Assessment - Assessment Merits Inpatient Hospitalization: For Immediate Safety, For Stabilization Inpatient DSM-IV Dx: Bipolar Depression Clinical Impression: 56 y.o. recently disabled, single, white female with a history of bipolar disorder and stroke arriving with family after overdosing on 3 tabs of alprazolam and considering overdosing on bupropion and gabapentin due to depression. Plan - Plan Treatment Plan: Name: DK GREEN Birthdate: 1960 [id number] The patient's pristiq, bupropion, asenapine and gabapentin have been continued as prescribed as and outpatient. Bupropion was just initiated one week ago so we will see how she does as that kicks in. The patient is on voluntary status. [place] Monday, (06/09) for possible discharge. Continue inpatient treatment. Continued Medication Management: Continue Outpt Medication Medications: Current Medications Acetaminophen/Butalbital/Caffeine (Fioricet Tab*) 1 tab PO Q6H PRN PRN Reason: MIGRAINE HEADACHE Last Admin: 06/06/17 07:54 Dose: 1 tab Albuterol (Ventolin Hfa Inhaler*) 2 puff INH Q6H PRN PRN Reason: SHORTNESS OF BREATH Alprazolam (Xanax Tab*) 1 mg PO BEDTIME PRN PRN Reason: ANXIETY Last Admin: 06/05/17 14:04 Dose: 1 mg Asenapine (Saphris(Nf)) 10 mg SL BEDTIME [facility] Last Admin: 06/06/17 21:12 Dose: 10 mg Aspirin (Aspirin Tab*) 325 mg PO BEDTIME [facility] Last Admin: 06/06/17 20:32 Dose: 325 mg Atorvastatin Calcium (Lipitor*) 20 mg PO 1700 [facility] Last Admin: 06/06/17 17:18 Dose: 20 mg Carvedilol (Coreg Tab*) 6.25 mg PO BID [facility] Last Admin: 06/07/17 08:32 Dose: 6.25 mg Desvenlafaxine Succinate (Pristiq(Nf)) 100 mg PO DAILY [facility] Last Admin: 06/07/17 08:31 Dose: 100 mg Diltiazem HCl (Cardizem Cd Cap*) 120 mg PO BEDTIME [facility] Last Admin: 06/06/17 20:33 Dose: 120 mg Divalproex Sodium (Depakote Er Tab(*)) 1,000 mg PO BID [facility] Last Admin: 06/07/17 08:32 Dose: 1,000 mg Docusate Sodium (Colace Cap*) 100 mg PO BID [facility] Last Admin: 06/07/17 08:32 Dose: 100 mg Gabapentin (Neurontin Cap(*)) 300 mg PO BEDTIME [facility] Last Admin: 06/06/17 20:32 Dose: 300 mg Glimepiride (Glimepiride (Nf)) 4 mg PO DAILY [facility] PRN Reason: Protocol Last Admin: 06/07/17 08:32 Dose: 4 mg Lactobacillus Rhamnosus (Culturelle*) 1 cap PO DAILY [facility] Last Admin: 06/07/17 08:32 Dose: 1 cap Lisinopril (Prinivil Tab*) 20 mg PO BEDTIME [facility] Last Admin: 06/06/17 20:33 Dose: 20 mg Multivitamins/Minerals (Theragran/Minerals Tab*) 1 tab PO QAM [facility] Last Admin: 06/07/17 08:32 Dose: 1 tab Nystatin (Nystatin Cream*) 1 applic TOPICAL BID PRN PRN Reason: ITCHING Omeprazole (Prilosec Cap*) 20 mg PO QAM [facility] Last Admin: 06/07/17 07:38 Dose: 20 mg Ondansetron HCl (Zofran Tab*) 4 mg PO Q6H PRN PRN Reason: NAUSEA/VOMITING Trimethoprim/Sulfamethoxazole (Bactrim Ds 800/160 Tab*) 1 tab PO BID [facility] Last Admin: 06/07/17 08:32 Dose: 1 tab - Discharge Plan Discharge Plan: Inpatient Hospitalization Lab Results - Lab Results Lab Results: 06/05/17 06/05/17 06/05/17 07:47 11:37 16:36 WBC RBC Hgb Hct MCV MCH MCHC RDW Plt Count MPV Neut % (Auto) Lymph % (Auto) Mccreary % (Auto) Eos % (Auto) Baso % (Auto) Absolute Neuts (auto) Absolute Lymphs (auto) Absolute Monos (auto) Absolute Eos (auto) Absolute Basos (auto) Absolute Nucleated RBC Nucleated RBC % Sodium Potassium Chloride Carbon Dioxide Anion Gap BUN Creatinine Est GFR ( Amer) Est GFR (Non-Af Amer) BUN/Creatinine Ratio Glucose POC Glucose (mg/dL) 139 H 164 H 118 H Hemoglobin A1c Calcium Triglycerides Cholesterol LDL Cholesterol HDL Cholesterol 06/05/17 06/06/17 06/06/17 20:18 06:56 06:56 WBC 8.6 RBC 4.96 Hgb 14.1 Hct 42 MCV 84 MCH 28 MCHC 34 RDW 17 H Plt Count 174 MPV 9 Neut % (Auto) 48.1 Lymph % (Auto) 41.5 Mccreary % (Auto) 8.5 Eos % (Auto) 1.5 Baso % (Auto) 0.4 Absolute Neuts (auto) 4.1 Absolute Lymphs (auto) 3.6 Absolute Monos (auto) 0.7 Absolute Eos (auto) 0.1 Absolute Basos (auto) 0 Absolute Nucleated RBC 0.02 Nucleated RBC % 0.2 Sodium 139 Potassium 4.6 Chloride 103 Carbon Dioxide 29 Anion Gap 7 BUN 16 Creatinine 0.70 Est GFR ( Amer) 112.1 Est GFR (Non-Af Amer) 87.2 BUN/Creatinine Ratio 22.9 H Glucose 157 H POC Glucose (mg/dL) 147 H Hemoglobin A1c Calcium 9.4 Triglycerides 244 Cholesterol 184 LDL Cholesterol 95 HDL Cholesterol 40.3 06/06/17 06/06/17 06/06/17 06:56 16:58 21:32 WBC RBC Hgb Hct MCV MCH MCHC RDW Plt Count MPV Neut % (Auto) Lymph % (Auto) Mccreary % (Auto) Eos % (Auto) Baso % (Auto) Absolute Neuts (auto) Absolute Lymphs (auto) Absolute Monos (auto) Absolute Eos (auto) Absolute Basos (auto) Absolute Nucleated RBC Nucleated RBC % Sodium Potassium Chloride Carbon Dioxide Anion Gap BUN Creatinine Est GFR ( Amer) Est GFR (Non-Af Amer) BUN/Creatinine Ratio Glucose POC Glucose (mg/dL) 87 139 H Hemoglobin A1c 6.5 H Calcium Triglycerides Cholesterol LDL Cholesterol HDL Cholesterol 06/07/17 06/07/17 07:53 11:39 WBC RBC Hgb Hct MCV MCH MCHC RDW Plt Count MPV Neut % (Auto) Lymph % (Auto) Mccreary % (Auto) Eos % (Auto) Baso % (Auto) Absolute Neuts (auto) Absolute Lymphs (auto) Absolute Monos (auto) Absolute Eos (auto) Absolute Basos (auto) Absolute Nucleated RBC Nucleated RBC % Sodium Potassium Chloride Carbon Dioxide Anion Gap BUN Creatinine Est GFR ( Amer) Est GFR (Non-Af Amer) BUN/Creatinine Ratio Glucose POC Glucose (mg/dL) 176 H 162 H Hemoglobin A1c Calcium Triglycerides Cholesterol LDL Cholesterol HDL Cholesterol
[2017-06-07] MEDS: Atorvastatin* 20 MG TAB PO SCH (16:37)
--- NOTE | 2017-06-07 17:22 | PN ---
Progress Note - Progress Note Date of Service: 06/07/17 Note: Brief follow up progress note: Pt is feeling well. Her diarrhea has resolved. She is concerned about her sugars still being elevated but she is off her victoza and thinks once she is back on it her sugars will improve. She states the dysuria has also resolved. She states she is still urinating frequently however. On exam she is awake, alert and oriented eating dinner and conversing with her daughter. Cardiac exam reveals a normal S1S2 RRR, lungs are clear and abdomen is obese, soft, NT and BS are present. The patient should resume her usual home diabetes regimen on d/c. For the Ecoli UTI/possible pyelonephritis she should continue on bactrim DS 1tab BID x 8 more days. She should follow up with her PCP in 1-2 weeks post discharge.
[2017-06-07] MEDS: ALPRAZolam TAB* 0.5 MG PO PRN (18:53)
[2017-06-07] MEDS: Lisinopril TAB* 10 MG PO SCH (21:09)
[2017-06-07] MEDS: Diltiazem CD CAP* 120 MG PO SCH (21:09)
[2017-06-07] MEDS: Gabapentin CAP(*) 300 MG PO SCH (21:09)
[2017-06-07] MEDS: Aspirin TAB* 325 MG PO SCH (21:09)
[2017-06-07] MEDS: ASENAPINE 10 MG SL SCH (21:49)
[2017-06-08] MEDS: Omeprazole CAP* 20 MG PO SCH (07:21)
[2017-06-08] MEDS: DESVENLAFAXINE 100 MG PO SCH (09:01)
[2017-06-08] MEDS: Divalproex ER TAB(*) 500 MG PO SCH ×2 (09:02→21:29)
[2017-06-08] MEDS: Multivitamins/Minerals TAB PO SCH (09:02)
[2017-06-08] MEDS: Sulfamethox/Trimethoprim DS 800/160* TAB PO SCH ×2 (09:03→21:29)
[2017-06-08] MEDS: CMCS Glimepiride (NF) 2 MG TAB PO SCH (09:03)
[2017-06-08] MEDS: Lactobacillus Acidophilu (GG)* 1 CAP CAP PO SCH (09:03)
[2017-06-08] MEDS: Docusate CAP* 100 MG PO SCH ×2 (09:03→21:30)
[2017-06-08] MEDS: Carvedilol TAB* 6.25 MG PO SCH ×2 (09:04→21:29)
--- NOTE | 2017-06-08 13:04 | PN ---
Subjective - Subjective Service Type: 08574 Hosp care 15 min low complexity Subjective: Patient seen along with SW, Yari Mendoza, for routine follow up. The patient continues to demonstrate anxiety on the subject of discharge, particularly around issues of transportation home and how we will get her CPAP machine, which is bulky, back to her house. 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 She has been active in groups and tolerating her medications well. Objective - Appearance Appearance: Obese Dysmorphic Features: No Hygiene: Normal Grooming: Well Kept - Behavior Psychomotor Activities: Normal Exhibits Abnormal Movement: No - Attitude and Relatedness Attitude and Relatedness: Cooperative Eye Contact: Fair - Speech Quality: Unpressured Latencies: Normal Quantity: Appropriate - Mood Patient's Decription of Mood: "Anxious" - Affect Observed Affect: Fair Affect Consistent with: Euthymia - Thought Process Patient's Thought Process: Coherent Thought Content: No Passive Wish, No Suicidal Planning, No Homicidal Ideation, No Paranoid Ideation - Sensorium Experiencing Hallucinations: No, Sensorium is Clear Type of Hallucinations: Visual: No, Auditory: No, Command: No - Level of Consciousness Level of Consciousness: Alert Orientation: Yes Intact, Yes Orientated to Time, Yes Orientated to Place, Yes Orientated to Person - Impulse Control Impulse Control: Intact - Insight and Judgement Insight and Judgement: Good - Group Participation Particating in Group Activities: Yes - Medication Management Medication Management Adherence: Yes Assessment - Assessment Merits Inpatient Hospitalization: Consolidate Improvements, Pending Safe DC Plan Inpatient DSM-IV Dx: Bipolar Depression Clinical Impression: 56 y.o. recently disabled, single, white female with a history of bipolar disorder and stroke arriving with family after overdosing on 3 tabs of alprazolam and considering overdosing on bupropion and gabapentin due to depression. Plan - Plan Treatment Plan: Name: DK GREEN Birthdate: 1960 [id number] The patient's pristiq, bupropion, asenapine and gabapentin have been continued as prescribed as and outpatient. Bupropion was just initiated one week ago so we will see how she does as that kicks in. The patient is on voluntary status. [facility] Monday, (06/09) for possible discharge. Continue inpatient treatment. Continued Medication Management: Continue Outpt Medication Medications: Current Medications Acetaminophen/Butalbital/Caffeine (Fioricet Tab*) 1 tab PO Q6H PRN PRN Reason: MIGRAINE HEADACHE Last Admin: 06/06/17 07:54 Dose: 1 tab Albuterol (Ventolin Hfa Inhaler*) 2 puff INH Q6H PRN PRN Reason: SHORTNESS OF BREATH Alprazolam (Xanax Tab*) 1 mg PO BEDTIME PRN PRN Reason: ANXIETY Last Admin: 06/07/17 18:53 Dose: 1 mg Asenapine (Saphris(Nf)) 10 mg SL BEDTIME [facility] Last Admin: 06/07/17 21:49 Dose: 10 mg Aspirin (Aspirin Tab*) 325 mg PO BEDTIME [facility] Last Admin: 06/07/17 21:09 Dose: 325 mg Atorvastatin Calcium (Lipitor*) 20 mg PO 1700 [facility] Last Admin: 06/07/17 16:37 Dose: 20 mg Carvedilol (Coreg Tab*) 6.25 mg PO BID [facility] Last Admin: 06/08/17 09:04 Dose: 6.25 mg Desvenlafaxine Succinate (Pristiq(Nf)) 100 mg PO DAILY [facility] Last Admin: 06/08/17 09:01 Dose: 100 mg Diltiazem HCl (Cardizem Cd Cap*) 120 mg PO BEDTIME [facility] Last Admin: 06/07/17 21:09 Dose: 120 mg Divalproex Sodium (Depakote Er Tab(*)) 1,000 mg PO BID [facility] Last Admin: 06/08/17 09:02 Dose: 1,000 mg Docusate Sodium (Colace Cap*) 100 mg PO BID [facility] Last Admin: 06/08/17 09:03 Dose: 100 mg Gabapentin (Neurontin Cap(*)) 300 mg PO BEDTIME [facility] Last Admin: 06/07/17 21:09 Dose: 300 mg Glimepiride (Glimepiride (Nf)) 4 mg PO DAILY [facility] PRN Reason: Protocol Last Admin: 06/08/17 09:03 Dose: 4 mg Lactobacillus Rhamnosus (Culturelle*) 1 cap PO DAILY [facility] Last Admin: 06/08/17 09:03 Dose: 1 cap Lisinopril (Prinivil Tab*) 20 mg PO BEDTIME [facility] Last Admin: 06/07/17 21:09 Dose: 20 mg Multivitamins/Minerals (Theragran/Minerals Tab*) 1 tab PO QAM [facility] Last Admin: 06/08/17 09:02 Dose: 1 tab Nystatin (Nystatin Cream*) 1 applic TOPICAL BID PRN PRN Reason: ITCHING Omeprazole (Prilosec Cap*) 20 mg PO QAM [facility] Last Admin: 06/08/17 07:21 Dose: 20 mg Ondansetron HCl (Zofran Tab*) 4 mg PO Q6H PRN PRN Reason: NAUSEA/VOMITING Trimethoprim/Sulfamethoxazole (Bactrim Ds 800/160 Tab*) 1 tab PO BID [facility] Last Admin: 06/08/17 09:03 Dose: 1 tab - Discharge Plan Discharge Plan: Outpatient Follow Up Outpatient Program: [facility]
[2017-06-08] MEDS ORDERED: Loperamide CAP* 2 MG PO PRN (14:43)
[2017-06-08] MEDS ORDERED: Loperamide CAP* 2 MG PO ONE (15:00)
[2017-06-08] MEDS: Atorvastatin* 20 MG TAB PO SCH (16:59)
[2017-06-08] MEDS: Aspirin TAB* 325 MG PO SCH (21:27)
[2017-06-08] MEDS: Lisinopril TAB* 10 MG PO SCH (21:28)
[2017-06-08] MEDS: Gabapentin CAP(*) 300 MG PO SCH (21:29)
[2017-06-08] MEDS: Diltiazem CD CAP* 120 MG PO SCH (21:30)
[2017-06-08] MEDS: ASENAPINE 10 MG SL SCH (21:50)
[2017-06-09] MEDS: Omeprazole CAP* 20 MG PO SCH (08:00)
[2017-06-09] MEDS: Carvedilol TAB* 6.25 MG PO SCH (08:02)
[2017-06-09] MEDS: Divalproex ER TAB(*) 500 MG PO SCH (08:02)
[2017-06-09] MEDS: CMCS Glimepiride (NF) 2 MG TAB PO SCH (08:02)
[2017-06-09] MEDS: Multivitamins/Minerals TAB PO SCH (08:02)
[2017-06-09] MEDS: Lactobacillus Acidophilu (GG)* 1 CAP CAP PO SCH (08:02)
[2017-06-09] MEDS: Docusate CAP* 100 MG PO SCH (08:03)
[2017-06-09] MEDS: Sulfamethox/Trimethoprim DS 800/160* TAB PO SCH (08:03)
[2017-06-09] MEDS: DESVENLAFAXINE 100 MG PO SCH (08:03)
[2017-06-09 08:12] VITALS: BP 131/58
--- NOTE | 2017-06-09 11:35 | PN ---
MHU: Group Therapy Note - Service Type Service Type: [id number] Group Psychotherapy - Cognitive Behavioral Group Therapy ( CBT):Patient was attentive and participatory in CBT programming this morning, and remained in good behavioral control. Patient expressed positive insights regarding relevant treatment interventions and goals.
--- NOTE | 2017-06-10 04:15 | DS ---
DISCHARGE SUMMARY: DATE OF ADMISSION: 06/04/17 DATE OF DISCHARGE: 06/09/17 DISCHARGE DIAGNOSES: Perry I: Bipolar disorder type 1, most recent episode depressed, severe, witho ut psychotic features. Perry II: Differed. Perry III: Congestive heart failure; [id number] t diabetes mellitus; history of deep venous thrombosis; dyslipidemia; obstructive sleep apnea; hyper tension; status post carotid endarterectomy; endometrial ablation; herniated disk at L4, L5, and S1 history of stroke. Perry IV: Severe primary support and social environmental stressors. Perry V: At the time of admission was 40 and at the time of discharge is 60. CONDITION AT THE TIME OF DISCHARGE: Improved. The patient is no longer endorsing suicidal ideation s. Her anxiety and depression are greatly improved. She is tolerating her medications well and is agreeable to ongoing outpatient treatment at [facility]. The patient is social, bright in affect. She has been observed to be active in the milieu setting, socializing with peers, going to groups, appearing to benefit from the milieu setting. She is requesting discharge to a le ss restricted setting and the hospital feels that it has no legal justification to keep her any furt her on the inpatient unit. MENTAL STATUS EXAM AT THE TIME OF DISCHARGE: The patient is an obese, appropriately dressed, poorly groomed, female. She is alert and oriented to time, person, and place. Makes good eye c ontact. Mood is euthymic, affect is full. Thought process is linear and goal directed. Thought co ntent is significant for her desire to be discharged from the hospital. She denies suicidal or homi cidal ideations. She denies auditory or visual hallucinations. Insight and judgment appear to be f air given her willingness to follow up with outpatient treatment. Cognitively, she appears to have an average intellect. DISCHARGE INSTRUCTIONS: To the patient are as follows: A. Medications: The patient is currently takin. Fioricet 1 cap every 6 hours as needed for headache. 2. Pristiq 100 mg p.o. q.a.m. 3. Proventil 2 puffs inhaled every 6 hours as needed for wheezing. 4. Xanax 1 mg every night at bedtime as a p.r.n. for insomnia. 5. Aspirin 325 mg at bedtime. 6. Asenapine 10 mg sublingually at bedtime. 7. Calcium 500 mg p.o. b.i.d. 8. Lipitor 20 mg p.o. q.p.m. 9. Docusate 100 mg p.o. b.i.d. 10. Depakote ER 1000 mg p.o. b.i.d. 11. Diltiazem 120 mg p.o. q.h.s. 12. Coreg 6.25 mg twice daily. 13. Victoza 1.8 mg subcutaneously in the evening. 14. Prevacid 30 mg in the daytime. 15. Glimepiride 4 mg daily. 16. Neurontin 300 mg at bedtime. 17. Zofran 4 mg q.6 hours p.r.n. for nausea. 18. Multivitamin p.o. daily. 19. Lisinopril 20 mg p.o. q.h.s. 20. Zantac 300 mg p.o. q.h.s. 21. Bactrim 1 tab p.o. b.i.d. for 3 more days. B. Diet: She is on a diabetic diet. C. Activities: As tolerated. The patient is a nonsmoker. There are no laboratory or diagnostic s tudies pending at the time of discharge. D. Followup Care: The patient will be seen on 06/20/17, by her outpatient therapist named , Yuliet Medina. She will also see Dr. Lacey Weiss at [facility], 06/03 03/18. HOSPITAL COURSE: Part A: Reason for admission: The patient is well known to this unit secondary to a prior hospitalization in January under certain circumstances. She is a 56-year-old physically disabl ed female with a prior medical history of multiple psychiatric hospitalizations both local and in [facility], who had been brought in by her daughter after she observed her mother salazar bassett extra Xanax pills with plan to take the entire bottle along with the rest of her psychotropic medi cations including Wellbutrin and gabapentin with the intention of comitting suicide. The patient to day reports that her depressive symptoms have been worsening lately in the context of her inability to go out and enjoy life as much as she used to in the past and that she does not see any purpose in living like this and feels like she is a burden to her daughters as well as to the system. At this time, it got worse because of limited help from the home health aide she gets as well as her daught er's inability to take her out because they do not drive either. Her depressive symptoms worsened a t least for several months and she has been feeling more sad, crying more frequently, feels helpless , worthless, and guilty about being a burden on others, although suicide has been on her mind intens ively for at least a week. She really did not want to do it because of her children and the religio n she practices right now. Yesterday, when she could not go to a [employer] because of unavailability of transportation, she states that she "totally lost it" and wanted to overdose on he r medications. There were multiple other psychosocial stressors that have been having serious impac t on her mental health, for example, she lost her long-term therapist because of her therapist's phy sicnd health condition and is about to lose her psychiatrist because of the policies of the clinic. Apparently, Dr. Weiss, the psychiatrist at [facility] had just started her on Wellbutrin and she has been hoping that that will make some difference. On the day of admission, she denied any ma nico, hypomanic, or psychotic symptoms. Part B: Psychiatric treatment rendered: The patient was admitted to the [facility] where she was placed on q.30-minute checks for her own safety. Throughout the hospitalization, s zulma was calm, cooperative, and in behavioral control. We did notice that whenever this topic of disc harge would come up, she would get highly anxious. No changes were made in her medication strategy other than to place her on Bactrim double strength 1 tablet b.i.d. for a discovered urinary tract in fection. She tolerated this well. In terms of her psychiatric medications, we felt that because lamar silverio had only recently started bupropion, we decided to keep her on this medication to see if the trial was effective. Throughout the hospitalization, she appeared to improve a little bit incrementally e very day. She almost immediately started denying suicidal ideations. 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 She is excited that this may bring her extra income that will allow her to afford certain rid e sharing organizations in the community, which will make her more mobile and more active and less i solated. We are able to coordinate with [facility] to allow her to get formal llow treatment in the community. At this time, the patient is in good spirits and she has done we ll in our program and we feel that she is ready to take the next step to a lower level of care. [id number]/[facility] #: [id number]
== END 2017-06-09 13:30 | disposition home or self-care (01) | DRG 885 ==
LOC: ED 20:08 → BSU 06-04 14:26
PROVIDERS: ADMIT Psychiatry & Neurology Psychiatry; ATTEND Psychiatry & Neurology Psychiatry
DX: F31.4 Bipolar disorder, current episode depressed, severe, without psychotic features (principal); I67.5 Moyamoya disease; K52.1 Toxic gastroenteritis and colitis; R45.851 Suicidal ideations; I13.0 Hypertensive heart and chronic kidney disease with heart failure and stage 1 through stage 4 chronic kidney disease, or unspecified chronic kidney disease; N39.0 Urinary tract infection, site not specified; Z68.42 Body mass index [BMI] 45.0-49.9, adult; I50.9 Heart failure, unspecified; E11.22 Type 2 diabetes mellitus with diabetic chronic kidney disease; N18.1 Chronic kidney disease, stage 1; E78.5 Hyperlipidemia, unspecified; G47.33 Obstructive sleep apnea (adult) (pediatric); E66.01 Morbid (severe) obesity due to excess calories; M51.26 Other intervertebral disc displacement, lumbar region; B96.20 Unspecified Escherichia coli [E. coli] as the cause of diseases classified elsewhere; T38.3X5A Adverse effect of insulin and oral hypoglycemic [antidiabetic] drugs, initial encounter; Y92.230 Patient room in hospital as the place of occurrence of the external cause; X58.XXXA Exposure to other specified factors, initial encounter; J44.9 Chronic obstructive pulmonary disease, unspecified; K21.9 Gastro-esophageal reflux disease without esophagitis; F60.3 Borderline personality disorder; I25.10 Atherosclerotic heart disease of native coronary artery without angina pectoris; Z86.73 Personal history of transient ischemic attack (TIA), and cerebral infarction without residual deficits; Z79.84 Long term (current) use of oral hypoglycemic drugs; Z86.718 Personal history of other venous thrombosis and embolism; Z79.82 Long term (current) use of aspirin; Z79.899 Other long term (current) drug therapy; Z88.5 Allergy status to narcotic agent; Z88.8 Allergy status to other drugs, medicaments and biological substances; Z83.3 Family history of diabetes mellitus; Z87.891 Personal history of nicotine dependence
CPT/HCPCS: 36415; 80048; 80053; 80061; 80307; 80320; 80329; 81003; 81015; 82803; 83036; 84443; 84484; 85025; 87077; 87086; 87186; 90686; 93005; A9270-GY; G0480; J1885

== ENCOUNTER 2017-06-23 21:58 | Inpatient (IN) | payer MEDICARE, MEDICAID ==
[2017-06-23 22:54] LABS: Hematocrit 40 % (35-47); Hemoglobin 13.7 g/dl (12.0-16.0); Mean Corpuscular HGB Conc 34 g/dl (31-36); Mean Corpuscular Hemoglobin 29 pg (27-31); Mean Corpuscular Volume 84 fL (80-97); Mean Platelet Volume 9 um3 (7.4-10.4); Red Blood Count 4.74 10^6/ul (4.0-5.4); Red Cell Distribution Width 17 % (10.5-15); White Blood Count 9.3 10^3/ul (3.5-10.8)
[2017-06-23 23:08] LABS: Albumin 3.9 g/dL (3.2-5.2); BUN/Creatinine Ratio 17.9 (8-20); EGFR Non-African American 91.7 (>60); Globulin 2.9 g/dL (2-4); Potassium 4.2 mmol/L (3.5-5.0); Total Bilirubin 0.4 mg/dL (0.2-1.0); Total Protein 6.8 g/dL (6.4-8.9)
[2017-06-23] MEDS ORDERED: Iodixanol* (CONTRAST) 320 MG/ML 100 ML SDV IV ONE (23:35)
[2017-06-24 00:51] LABS: Urine Bacteria Absent (Absent); Urine Bilirubin Negative (Negative); Urine Glucose Negative (Negative); Urine Nitrite Negative (Negative)
[2017-06-24] MEDS ORDERED: Iodixanol* (CONTRAST) 320 MG/ML 100 ML SDV IV ONE (03:00)
[2017-06-24] MEDS ORDERED: Dextrose 50% Syringe 50 ML* 25 GM/50 ML SYRINGE IV PUSH PRN (05:31)
[2017-06-24] MEDS ORDERED: Albuterol HFA INHALER* 8 gm MDI INH PRN (05:33)
[2017-06-24] MEDS ORDERED: Butalb/Acetamin/Caff TAB* 1 TAB PO PRN (05:33)
[2017-06-24] MEDS ORDERED: ALPRAZolam TAB* 0.5 MG PO PRN (05:33)
[2017-06-24] MEDS ORDERED: Acetaminophen TAB* 325 MG PO PRN (05:56)
[2017-06-24 05:57] LABS: HDL Cholesterol 38.7 mg/dL
--- NOTE | 2017-06-24 06:26 | ED ---
Nikhil Michaels Rebecca, scribed for Nena Gossuel on 06/23/17 at 2236 . Neurological HPI - HPI Summary HPI Summary: Pt is a 56 y/o F BIBA who presents to ED c/o slurred speech and worse L-sided weakness since 1630 this afternoon. PMHx CVA, resulting in residual L-sided weakness, though sx tonight are worse than her baseline. Sx aggravated and alleviated by nothing. Last CVA was on January 02, 2017. - History of Current Complaint Chief Complaint: EDNeurologicalDeficit Stated Complaint: STROKE-LIKE SYMPTOMS Time Seen by Provider: 06/23/17 22:04 Hx Obtained From: Patient Hx Last Menstrual Period: not since 2009 Onset/Duration: Started hours ago, Still Present Current Severity: None Pain Intensity: 0 Pain Scale Used: 0-10 Numeric Character: Weak - L-sided, Impaired Speech Aggravating: Nothing Alleviating: Nothing Associated Signs and Symptoms: Positive: Weakness - Left-sided, Impaired Speech - Additional Pertinent History Primary Care Physician: [id number] - Allergy/Home Medications Allergies/Adverse Reactions: Allergies Allergy/AdvReac Type Severity Reaction Status Date / Time Nitrofurantoin Allergy Severe Rash Verified 06/23/17 22:08 [From Macrobid] Clavulanic Acid AdvReac Intermediate Nausea And Verified 06/23/17 22:08 [From Augmentin] Vomiting Meperidine [From Demerol HCl] AdvReac Intermediate Headache Verified 06/23/17 22 :08 Morphine AdvReac Nausea Verified 06/23/17 22:08 PMH/Surg Hx/FS Hx/Imm Hx Endocrine/Hematology History: Reports: Hx Diabetes, Other Endocrine/ Hematological Disorders Denies: Hx Thyroid Disease, Hx Anemia Cardiovascular History: Reports: Hx Angina, Hx Angioplasty, Hx Coronary Artery Disease, Hx Hypercholesterolemia, Hx Hypertension, Other Cardiovascular Problems /Disorders - CAD, int/ext carotid stenosis Denies: Hx Aneurysm, Hx Auto Implanted Cardiovert Defib, Hx Cardiac Arrest, Hx Cardiomegaly, Hx Congenital Heart Disease, Hx Congestive Heart Failure, Hx Deep Vein Thrombosis, Hx Hypotension, Hx Myocardial Infarction, Hx Pacemaker/ICD , Hx Peripheral Vascular Disease, Hx Rheumatic Fever, Hx Syncope, Hx Valvular Heart Disease Respiratory History: Reports: Hx Asthma, Hx Chronic Bronchitis, Hx Chronic Obstructive Pulmonary Disease (COPD) - O2 at home, Hx Pneumonia, Hx Sleep Apnea - CPAP in room for use, Other Respiratory Problems/Disorders - PNEUMONIA IN 2001 Denies: Hx Cystic Fibrosis, Hx Lung Cancer, Hx Pleural Effusion, Hx Pulmonary Edema, Hx Pulmonary Embolism, Hx Seasonal Allergies GI History: Reports: Hx Gastroesophageal Reflux Disease, Other GI Disorders - "sphincter in stomach not working" Denies: Hx Cirrhosis, Hx Crohn's Disease, Hx Diverticulosis, Hx Gall Bladder Disease, Hx Gastrointestinal Bleed, Hx Hiatal Hernia, Hx Irritable Bowel, Hx Jaundice, Hx Obstructive Bowel, Hx Ileostomy, Hx Pyloric Stenosis, Hx Ulcer History: Reports: Hx Chronic Renal Failure, Hx Renal Disease, Other Problems/Disorders - chronic kidney disease Denies: Hx Dialysis Musculoskeletal History: Reports: Hx Back Problems, Hx Scoliosis Sensory History: Reports: Hx Contacts or Glasses, Hx Vision Problem Denies: Hx Hearing Aid Opthamlomology History: Reports: Hx Contacts or Glasses, Hx Vision Problem Neurological History: Reports: Hx Headaches, Hx Migraine, Hx Seizures, Hx Transient Ischemic Attacks (TIA), Other Neuro Impairments/Disorders - Hx of 2 TIA. Hx moyamoya disease. 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 Hx Chemotherapy: No Hx Radiation Therapy: No - Surgical History Surgery Procedure, Year, and Place: uterine ablation, appendectomy, 2 bladder cystoscopies, c-sections, endoderectomy 2004, stent and balloon LICA 2005 & 2006 ( [employer] SCIENTIFIC WALLSTENT - SAFE AT 1.5T AND 3T WITH EVERETTE 2.0 W/KG 15 MINS LIMITATION) , tubal ligation, arterial bypass in the brain Hx Anesthesia Reactions: No - Immunization History Date of Tetanus Vaccine: unk Date of Influenza Vaccine: unk Infectious Disease History: No Infectious Disease History: Denies: Hx Clostridium Difficile, Hx Hepatitis, Hx Human Immunodeficiency Virus (HIV), Hx of Known/Suspected MRSA, Hx Shingles, Hx Tuberculosis, Hx Known/ Suspected VRE, Hx Known/Suspected VRSA, History Other Infectious Disease, Traveled Outside the [place] in Last 30 Days - Family History Known Family History: Positive: Cardiac Disease, Other - bipolar disorder; alcohol abuse - Social History Alcohol Use: None Alcohol Amount: once/year Hx Substance Use: No Substance Use Type: Reports: None Hx Tobacco Use: Yes Smoking Status (MU): Former Smoker Type: Cigarettes Amount Used/How Often: quit in 2004 Have You Smoked in the Last Year: No Review of Systems Negative: Fever Positive: Weakness - L-sided weakness, Slurred Speech All Other Systems Reviewed And Are Negative: Yes Physical Exam - Summary Physical Exam Summary: Appearance: Well appearing, no pain distress Skin: warm, dry, reflects adequate perfusion Head/face: normal Eyes: EOMI, GERMANIA ENT: normal Neck: supple, nontender Respiratory: CTA, breath sounds present Cardiovascular: RRR, pulses symmetrical Abdomen: nontender, soft Bowel: present Musculoskeletal: ROM intact Neuro: left-sided facial droop, left-sided motor weakness 4/5 NIH: 4 GCS:15 Triage Information Reviewed: Yes Vital Signs On Initial Exam: Initial Vitals Temp Pulse Resp BP Pulse Ox 97.9 F 78 17 180/68 97 06/23/17 22:07 06/23/17 22:07 06/23/17 22:07 06/23/17 22:07 06/23/17 22:07 Vital Signs Reviewed: Yes - [place] Coma Scale Coma Scale Total: 15 Diagnostics - Vital Signs Vital Signs Temp Pulse Resp BP Pulse Ox 06/23/17 22:07 97.9 F 78 17 180/68 97 - Laboratory Lab Results: Lab Results 06/23/17 06/23/17 06/23/17 Range/Units 22:45 22:45 22:45 WBC 9.3 (3.5-10.8) 10^3/ul RBC 4.74 (4.0-5.4) 10^6/ul Hgb 13.7 (12.0-16.0) g/dl Hct 40 (35-47) % MCV 84 (80-97) fL MCH 29 (27-31) pg MCHC 34 (31-36) g/dl RDW 17 H (10.5-15) % Plt Count 177 (150-450) 10^3/ul MPV 9 (7.4-10.4) um3 Neut % (Auto) 50.7 (38-83) % Lymph % (Auto) 39.5 (25-47) % [place] % (Auto) 7.5 (1-9) % Eos % (Auto) 1.7 (0-6) % Baso % (Auto) 0.6 (0-2) % Absolute Neuts (auto) 4.7 (1.5-7.7) 10^3/ul Absolute Lymphs (auto) 3.7 (1.0-4.8) 10^3/ul Absolute Monos (auto) 0.7 (0-0.8) 10^3/ul Absolute Eos (auto) 0.2 (0-0.6) 10^3/ul Absolute Basos (auto) 0.1 (0-0.2) 10^3/ul Absolute Nucleated RBC 0 10^3/ul Nucleated RBC % 0 INR (Anticoag Therapy) 1.04 (0.89-1.11) APTT 31.3 (26.0-36.3) seconds Sodium 137 (133-145) mmol/L Potassium 4.2 (3.5-5.0) mmol/L Chloride 103 (101-111) mmol/L Carbon Dioxide 26 (22-32) mmol/L Anion Gap 8 (2-11) mmol/L BUN 12 (6-24) mg/dL Creatinine 0.67 (0.51-0.95) mg/dL Est GFR ( Amer) 118.0 (>60) Est GFR (Non-Af Amer) 91.7 (>60) BUN/Creatinine Ratio 17.9 (8-20) Glucose 140 H (70-100) mg/dL POC Glucose (mg/dL) (70-100) mg/dL Calcium 9.0 (8.6-10.3) mg/dL Total Bilirubin 0.40 (0.2-1.0) mg/dL AST 13 (13-39) U/L ALT 14 (7-52) U/L Alkaline Phosphatase 46 (34-104) U/L Total Protein 6.8 (6.4-8.9) g/dL Albumin 3.9 (3.2-5.2) g/dL Globulin 2.9 (2-4) g/dL Albumin/Globulin Ratio 1.3 (1-3) Triglycerides 225 mg/dL Cholesterol 170 mg/dL LDL Cholesterol 86 mg/dL HDL Cholesterol 38.7 mg/dL Urine Color Urine Appearance Urine pH (5-9) Ur Specific [place] (1.010-1.030) Urine Protein (Negative) Urine Ketones (Negative) Urine Blood (Negative) Urine Nitrate (Negative) Urine Bilirubin (Negative) Urine Urobilinogen (Negative) Ur Leukocyte Esterase (Negative) Urine WBC (Auto) (Absent) Urine RBC (Auto) (Absent) Ur Squamous Epith Cells (Absent) Urine Bacteria (Absent) Urine Glucose (Negative) Blood Type Antibody Screen 06/23/17 06/24/17 06/24/17 Range/Units 22:45 00:00 02:12 WBC (3.5-10.8) 10^3/ul RBC (4.0-5.4) 10^6/ul Hgb (12.0-16.0) g/dl Hct (35-47) % MCV (80-97) fL MCH (27-31) pg MCHC (31-36) g/dl RDW (10.5-15) % Plt Count (150-450) 10^3/ul MPV (7.4-10.4) um3 Neut % (Auto) (38-83) % Lymph % (Auto) (25-47) % [place] % (Auto) (1-9) % Eos % (Auto) (0-6) % Baso % (Auto) (0-2) % Absolute Neuts (auto) (1.5-7.7) 10^3/ul Absolute Lymphs (auto) (1.0-4.8) 10^3/ul Absolute Monos (auto) (0-0.8) 10^3/ul Absolute Eos (auto) (0-0.6) 10^3/ul Absolute Basos (auto) (0-0.2) 10^3/ul Absolute Nucleated RBC 10^3/ul Nucleated RBC % INR (Anticoag Therapy) (0.89-1.11) APTT (26.0-36.3) seconds Sodium (133-145) mmol/L Potassium (3.5-5.0) mmol/L Chloride (101-111) mmol/L Carbon Dioxide (22-32) mmol/L Anion Gap (2-11) mmol/L BUN (6-24) mg/dL Creatinine (0.51-0.95) mg/dL Est GFR ( Amer) (>60) Est GFR (Non-Af Amer) (>60) BUN/Creatinine Ratio (8-20) Glucose (70-100) mg/dL POC Glucose (mg/dL) 87 (70-100) mg/dL Calcium (8.6-10.3) mg/dL Total Bilirubin (0.2-1.0) mg/dL AST (13-39) U/L ALT (7-52) U/L Alkaline Phosphatase (34-104) U/L Total Protein (6.4-8.9) g/dL Albumin (3.2-5.2) g/dL Globulin (2-4) g/dL Albumin/Globulin Ratio (1-3) Triglycerides mg/dL Cholesterol mg/dL LDL Cholesterol mg/dL HDL Cholesterol mg/dL Urine Color Straw Urine Appearance Clear Urine pH 6.0 (5-9) Ur Specific [place] 1.008 L (1.010-1.030) Urine Protein Negative (Negative) Urine Ketones Negative (Negative) Urine Blood 1+ H (Negative) Urine Nitrate Negative (Negative) Urine Bilirubin Negative (Negative) Urine Urobilinogen Negative (Negative) Ur Leukocyte Esterase Trace H (Negative) Urine WBC (Auto) Trace(0-5/hpf) (Absent) Urine RBC (Auto) Trace(0-2/hpf) (Absent) Ur Squamous Epith Cells Present H (Absent) Urine Bacteria Absent (Absent) Urine Glucose Negative (Negative) Blood Type A Negative Antibody Screen Negative Result Diagrams: 06/23/17 22:45 06/23/17 22:45 Lab Statement: Any lab studies that have been ordered have been reviewed, and results considered in the medical decision making process. - CT Brain CT CT Interpretation: No Acute Changes - No prior exams available for comparison. No acute brain parenchymal abnormality. No hemorrhage, mass or acute territorial infarct. Age-related invoutional changes and chronic small vessel iuschemic changes. Bilateral craniotomies. Clear visualize paranasal sinuses. Visualized mastoid air cells clear. ED physician reviewed radiology report and agrees. CT Interpretation Completed By: Radiologist Head CTA CT Interpretation: No Acute Changes - Neck: Patent bilateral common carotid, internal carotid and vertebral arteries with no evidence of dissectoin, extravasatoin, or aneurysm. Atherosclerotic calcifications distal right common carotidartery/proximal right ICA. Markedly attenuated caliberof both [place] ICAs. Paten tstent in left ICA, which has a partly retropharyngeal course. Head: Small diameter iddle cerebral arteries, difficult to follow on both sides especially given venous contamination (i.e., suboptimal contrast timing to evaluate arteries on tehir own). Cannot exclude areas of stenosis or occlusion in either MCA, although more distal branches appear holly grossly patent and grossly symmetric. Atrophy. Bilateral craniotomies. N obvious acute hemorrhage, mass or acute territorial infarct, but exam limited by contrast technique. Mucus retention cyst right sphenoid sinus. Mastoid air cells clear. ED physician reviewed radiology report and agrees. CT Interpretation Completed By: Radiologist - EKG 9995 Cardiac Rate: NL - 71 bpm EKG Rhythm: Sinus Rhythm EKG Interpretation: No acute changes NIH Scale - NIH Scale Level of Consciousness: Alert/Keenly Responsive Ask Patient the Month and His/Her Age: Both Correct Ask Pt to Open/Close Eyes and Surgeon Assistant/Release Non-Paretic Hand: Both Correctly Best Gaze (Only Horizontal Eye Movement): Normal Visual Field Testing: No Visual Loss Facial Paresis-Pt to Smile & Close Eyes or Grimace Symmetry: Minor Paralysis Motor Function - Right Arm: No Drift-Holds 10 Seconds Motor Function - Left Arm: Drifts LT 10 seconds Motor Function - Right Leg: No Drift-Holds 10 Seconds Motor Function - Left Leg: Effort Against [place] Limb Ataxia-Must be out of Proportion to Weakness Present: Absent Sensory (Use Pinprick to Test Arms/Legs/Trunk/Face): Normal Best Language (Describe Picture, Name Items): No Aphasia Dysarthria (Read Several Words): Normal Extinction and Inattention: No Abnormality Total Score: 4 Course/Dx - Course Assessment/Plan: Pt is a 56 y/o F BIBA who presents to ED c/o slurred speech and worse L-sided weakness since 1630 this afternoon. PMHx CVA, resulting in residual L-sided weakness, though sx tonight are worse than her baseline. Sx aggravated and alleviated by nothing. Last CVA was on January 02, 2017. Brain CT reveals no acute findings. EKG is sinus rhythm with no acute changes. Discussed care of pt with Jose Juan Roth who did a Tele-Stroke consult. They advised hospitalist admission and CTA. Discussed care of pt with Dr. Loya who is awaiting CTA results. Head CTA reveals no acute findings. Rediscussed with Dr. Loya at 0500, updating CTA results and she accepts pt for admission. In the ED course, pt received fluids. Pt will be admitted with Dx of CVA. She understands and agrees. Elevated BP noted and advised to f/u. - Diagnoses Provider Diagnoses: CVA (cerebral vascular accident) - Physician Notifications Discussed Care Of Patient With: Jose Juan Roth Time Discussed With Above Provider: 22:41 Instructed by Provider To: Other - Initiating Tele-stroke. Discusse care of pt with Jose Juan baez at 2311, advising admission and tat a CTA be done as well as a neurology follow up in the morning. Discussed care of pt with Dr. Loya at 2323 who would like the results of the CTA first. - Critical Care Time Critical Care Time: 30-74 min - STROKE CODE Discharge - Discharge Plan Condition: Good Disposition: ADMITTED TO [facility] documentation as recorded by the Nikhil españa Rebecca accurately reflects the service I personally performed and the decisions made by , Greg Goss.
--- NOTE | 2017-06-24 08:33 | RAD ---
Indication: Code Erickson. CVA. Comparison: April 16, 2017 Technique: Noncontrast CT vertex of skull through foramen magnum. Report: Mild prominence of the cerebral sulci and cerebellar fissures. Unremarkable ventricles and basal cisterns. Negative for zimmerman matter white matter obscuration, intra or extra-axial hemorrhage, or mass effect. Postsurgical change of previous bilateral craniotomy. No suspicious calvarial or skull base lesion evident. Clear visualized paranasal sinuses and mastoid air spaces. Unremarkable partially visualized orbital contents. Negative for scalp hematoma. IMPRESSION: No acute intracranial process evident. Mild involutional change. Stable exam compared with April 16, 2017.
--- NOTE | 2017-06-24 08:49 | RAD ---
INDICATION: CVA. COMPARISON: Noncontrast CT head of the same date. August 18, 2016 CT angiogram. TECHNIQUE: Multidetector CT images were obtained from the aortic arch to the vertex of the head with 100 mL Visipaque 320 IV contrast. Arterial phase of enhancement. Multiplanar reformation including maximum intensity projection. 3-D arterial volume rendering. Stenosis estimations based on denominator of distal arterial diameter. NECK ANGIOGRAM REPORT: Obese body habitus and late phase of contrast limits assessment. Diminutive size RIGHT common and internal carotid arteries with tortuous medial retropharyngeal course. Grossly patent stent at the LEFT common carotid artery. Diminutive bilateral internal carotid arteries with poor contrast opacification limiting assessment. Patent bilateral vertebral arteries with both contributing to the basilar artery. NECK ANGIOGRAM IMPRESSION: 1. No significant change in markedly attenuated bilateral internal carotid arteries likely reflecting sequela of vasculitis and grossly patent stent at the LEFT common carotid artery. 2. Unremarkable vertebral arteries. HEAD ANGIOGRAM REPORT: Markedly diminutive and possibly occluded bilateral M1 middle cerebral artery segments. Small caliber grossly symmetric normally opacified M2 middle cerebral artery segments. Probable bilateral external to internal carotid artery anastomoses. Correlate with surgical history. Poor visualization of the diminutive anterior cerebral artery A1 segments. Diminutive A2 segments appear patent. Unremarkable basilar artery and cerebellar artery origins. Patent bilateral posterior cerebral arteries are supplied primarily by the posterior circulation with small contribution via patent normal variant diminutive posterior communicating arteries. No intracranial aneurysm or vascular malformation evident. Normal opacification of the dural venous sinuses. HEAD ANGIOGRAM IMPRESSION: The constellation of findings is consistent with moyamoya disease with vaso-occlusive disease at the [place] and M1 and A1 cerebral artery segments without significant change. Status post bilateral external carotid artery to middle cerebral artery bypass. Stable exam compared with August 18, 2016. No new intracranial arterial abnormality. CPT II: CPT II Codes: 3100F
[2017-06-24] MEDS ORDERED: buPROPion TAB* 100 MG PO SCH (09:00)
[2017-06-24] MEDS: Heparin VIAL(*) 5000 UNITS/ML VIAL (FIVE THOUSAND) SUBCUT SCH ×3 (09:19→21:00)
[2017-06-24] MEDS: Insulin LISPRO* 1 UNITS UNIT SUBCUT SCH ×4 (09:20→22:00)
[2017-06-24] MEDS: Carvedilol TAB* 6.25 MG PO SCH ×2 (09:22→21:00)
[2017-06-24] MEDS: DESVENLAFAXINE 100 MG PO SCH (09:23)
[2017-06-24] MEDS: Lansoprazole SOLUTAB* 30 MG PO SCH (09:23)
[2017-06-24] MEDS: Docusate CAP* 100 MG PO SCH ×2 (09:23→21:00)
[2017-06-24] MEDS: Multivitamins/Minerals TAB PO SCH (09:24)
[2017-06-24] MEDS: Divalproex ER TAB(*) 500 MG PO SCH ×2 (09:39→22:46)
[2017-06-24] MEDS: NS 0.9% 1000 ML* 1,000 ML IV SCH (11:03)
--- NOTE | 2017-06-24 11:41 | HP ---
CC: Dr. Hoskins; Dr. Zelaya; Dr. Calderón; Neurologist and neurosurgeon in [place] , Dr. Crowe* HISTORY AND PHYSICAL: DATE OF ADMISSION: 06/24/17 PRIMARY CARE PROVIDER: Ang Zelaya MD NEUROLOGIST: Dr. Sarah Crowe. He is a neurosurgeon in [place], fax #[phone]. CHIEF COMPLAINT: Left-sided weakness, worsening of chronic problem. HISTORY OF PRESENT ILLNESS: Mrs. Sol is a 56-year-old female with history of Mayamoya syndrome, status post bilateral SCA/MCA indirect in the lower cup muuqcuhbh-xoxu-rgvplmf-synangiosis bypasses performed earlier this year by Dr. Crowe. The wpxtnchxc-iusm-awnsohz-synangiosis bypasses were performed at [facility] earlier on this year. She had been doing well although she does have history of residual left-sided weakness and problems with slurred speech, hesitancy, for which had been undergoing speech therapy treatment as an outpatient. Earlier on this year in March she was seen for worsening of left- sided weakness and episodes shaking. At that point, she was discharged from the hospital and was supposed to have an outpatient MRI performed, which I do not see in our medical records. The patient presented to the hospital approximately four and a half hours after an episode of worsening of her chronic left-sided weakness and worsening of her chronic speech hesitancy. The patient was evaluated in the emergency department and stroke neurologist from [place] saw the patient via tele medicine consult. It was noted that the patient's symptoms are likely not significantly changed from her chronic issues and a CTA of the head and neck was recommended prior to further decision making. The patient's CTA of the head and neck was grossly unremarkable and the patient is going to be placed on overnight observation and neurology consult in the morning. PAST MEDICAL HISTORY: 1. History of morbid obesity. 2. History of diabetes type 2. 3. Hypertension. 4. Dyslipidemia. 5. History of bipolar disorder. 6. History of carotid stenting in 2004. 7. History of COPD, on oxygen at two liters. 8. History of chronic kidney disease stage 3 due to diabetes. 9. History of borderline personality disorder. 10. History of recent hospitalization at the beginning of June of 2017 for depression and suicidal ideation. 11. History of carotid disease. 12. History of CHF. 13. History of hypertension. 14. History of two intracranial bypasses as mentioned above at the beginning of 2017. 15. History of episodes of shaking postoperatively that happened intermittently for the past several months. It was thought be possibly related to the surgery with questionable workup for seizures so far nonconclusive. MEDICATIONS: Include: 1. Oxygen at 2 L continuously. 2. Alprazolam 1 mg at night p.r.n. sleep and on a p.r.n. basis throughout the day for anxiety. 3. Lipitor 20 mg daily. 4. Coreg 6.25 mg b.i.d. 5. Victoza 1.8 mg daily. 6. Depakote 1000 mg b.i.d. 7. Diltiazem CD 120 mg at bedtime. 8. Glimepiride 4 mg daily. 9. Lansoprazole 30 mg daily. 10. Lisinopril 20 mg at bedtime. 11. Neurontin 300 mg at bedtime. 12. Nystatin cream on a p.r.n., basis. 13. Oyster shell calcium 500 mg b.i.d. 14. Pristiq 100 mg daily. 15. Albuterol inhaler on a p.r.n., basis. 16. Ranitidine 300 mg at bedtime. 17. Aspirin 325 mg daily. 18. Saphris 10 mg at bedtime. 19. Colace 100 mg b.i.d. 20. Zofran 4 mg on a p.r.n. basis. 21. Fioricet one capsule every four hours for headache. 22. Bupropion 100 mg daily. ALLERGIES: Include NITROFURANTOIN, AUGMENTIN, MEPERIDINE, MORPHINE. FAMILY HISTORY: Positive for father who at the age of 51 from unknown cancer. Mother at the age of 71 secondary to diabetes complications. SOCIAL HISTORY: Patient lives with two teenage children. She quit smoking in 2004. She has history of over 26 pack year smoking. She denies any alcohol or illicit drug use. She is in disability. She is a full code. Her healthcare proxy is her sister, Nicolette Lozano. REVIEW OF SYSTEMS: Please see history of present illness. In addition to the above mentioned, the patient stated that she usually ambulates with a cane. She usually limps on the left side and her left side is weaker, but she is able to take care of herself and perform activities of daily living. She uses oxygen 24x7 at 2 L. Her speech has hesitancy and that is chronic. Currently, the patient feels back to her baseline, but her symptoms lasted several hours and eventually resolved doing her ED stay. All the remaining 14 systems were reviewed with the patient and were otherwise negative. PHYSICAL EXAMINATION GENERAL APPEARANCE: The patient is a very pleasant 56-year-old female, whose BMI is at 46. The patient is in no acute distress. Alert, awake, and oriented x3. VITAL SIGNS: Blood pressure 157/70, heart rate of 74 and regular, respiratory rate 14, oxygen saturation 97% on 2 L of oxygen via nasal cannula, and temperature of 97.9. HEENT: Head: Atraumatic, normocephalic. Eyes: Pupils are equal and reactive to light and accommodation. Oropharynx clear. Mucosa moist. NECK: Supple. No JVD. No bruits bilaterally. RESPIRATORY: Distant breath sounds bilaterally, but otherwise clear. CARDIOVASCULAR: Regular rate and rhythm. No murmur. ABDOMEN: Soft and nontender. Bowel sounds present in all 4 quadrants. EXTREMITIES: There is trace bilateral pedal edema. Pulses are +2 bilaterally. There is no clubbing or cyanosis. NEURO EVALUATION: The patient has mid speech hesitancy, but her speech otherwise is clear with good comprehension and verbalization. Cranial nerves II through XII are grossly intact. 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 There is no pronator drift bilaterally. Galeqc-we-qjtd is not dysmetric. SKIN: On evaluation of the skin, there are no ecchymotic areas or rashes appreciated. DIAGNOSTIC STUDIES/LAB DATA: Showed white blood cell count of 9.3, hemoglobin of 13.7, hematocrit of 40, and platelets of 177. Sodium was 137, potassium of 4.2, chloride 103, carbon dioxide 6, BUN 12, creatinine 0.67. Liver function tests unremarkable. Urinalysis showed trace blood, trace esterase. CT angiogram of the head. Impression: "No obvious acute hemorrhage, mass or acute territorial infarct, but exam limited . Mucous retention cyst on the right sphenoid sinus. Mastoid cells clear ". Patient's brain CT read by the radiologist as "no acute brain parenchymal abnormality. No hemorrhage, mass or acute territorial infarct. Age-related involutional changes and chronic small vessel ischemic changes. Bilateral craniotomies. Clear visualized paranasal sinuses, visualized mastoid air cells are clear." Patient's EKG shows normal sinus rhythm with a heart rate of 71 beats per minute with no ST changes. ASSESSMENT AND PLAN: 1. In regards to the patient's worsening and transient left-sided weakness. At this point, it appears that the patient's symptoms have resolved. Nevertheless, I will ask speech therapy to evaluate the patient, as well as physical therapy and occupational therapy. The patient is going to be placed on overnight observation on telemetry monitoring unit. I will also ask Dr. Calderón to see the patient in the morning for consultation and further suggestions in regards to management. For the time being, the patient is going to be continued on aspirin and atorvastatin. 2. In regards to the patient's dyslipidemia, fasting lipid panel is going to be obtained and Lipitor is going to be continued. 3. Patient's COPD does not appear to be in exacerbation. Her supplemental oxygen is going to be continued. 4. In regards to her history of bipolar disease with depression, her antipsychotic medications as well as antidepressants are going to be continued. 5. In regards to the patient's hypertension, her Coreg as well as Lisinopril is going to be continued. 6. For patient's anxiety, alprazolam was going to be continued on a p.r.n., basis. 7. For DVT prophylaxis, the patient is going to be placed on heparin subcutaneously. 8. Patient's code status is full and her surrogate is her sister, as mentioned above. TIME SPENT: Approximately 65 minutes was spent on admission of this patient, more than half that time was spent [id number] with the patient during the interview and physical exam. [id number]/[facility] #: [id number] SAURAV
--- NOTE | 2017-06-24 12:55 | PN ---
Subjective Date of Service: 06/24/17 Interval History: Patient seen this afternoon. Reports some improvement in her symptoms. Slurred speech has resolved, reports L sided weakness is still a bit worse than baseline. Family History: Unchanged from Admission Social History: Unchanged from Admission Past Medical History: Unchanged from Admission Objective Active Medications: Acetaminophen (Tylenol Tab*) 650 mg PO Q4H PRN PRN Reason: FEVER/PAIN Last Admin: 06/24/17 07:41 Dose: 650 mg Acetaminophen/Butalbital/Caffeine (Fioricet Tab*) 1 tab PO Q6H PRN PRN Reason: MIGRAINE HEADACHE Albuterol (Ventolin Hfa Inhaler*) 2 puff INH Q6HR PRN PRN Reason: SHORTNESS OF BREATH Alprazolam (Xanax Tab*) 1 mg PO BEDTIME PRN PRN Reason: ANXIETY Asenapine (Saphris(Nf)) 10 mg SL BEDTIME JULIANA Aspirin (Aspirin Tab*) 325 mg PO BEDTIME JULIANA Atorvastatin Calcium (Lipitor*) 40 mg PO 1700 [facility] Bupropion HCl (Wellbutrin Tab*) 100 mg PO BID [facility] Last Admin: 06/24/17 09:21 Dose: 100 mg Carvedilol (Coreg Tab*) 6.25 mg PO BID [facility] Last Admin: 06/24/17 09:22 Dose: 6.25 mg Desvenlafaxine Succinate (Pristiq(Nf)) 100 mg PO QAM [facility] Last Admin: 06/24/17 09:23 Dose: Not Given Dextrose (D50w Syringe 50 Ml*) 12.5 gm IV PUSH .FOR FS < 60 - SS PRN PRN Reason: FS < 60 Diltiazem HCl (Cardizem Cd Cap*) 120 mg PO BEDTIME [facility] Divalproex Sodium (Depakote Er Tab(*)) 1,000 mg PO BID [facility] Last Admin: 06/24/17 09:39 Dose: 1,000 mg Docusate Sodium (Colace Cap*) 100 mg PO BID [facility] Last Admin: 06/24/17 09:23 Dose: 100 mg Gabapentin (Neurontin Cap(*)) 300 mg PO BEDTIME [facility] Heparin Sodium (Porcine) (Heparin Vial(*)) 5,000 units SUBCUT Q8HR [facility] Last Admin: 06/24/17 09:19 Dose: 5,000 units Sodium Chloride (Ns 0.9% 1000 Ml*) 1,000 mls @ 50 mls/hr IV .per rate [facility] Last Admin: 06/24/17 11:03 Dose: 50 mls/hr Insulin Human Lispro (Humalog*) 0 units SUBCUT ACHS [facility] PRN Reason: Protocol Last Admin: 06/24/17 09:20 Dose: Not Given Lansoprazole (Prevacid Solutab*) 30 mg PO QAM [facility] Last Admin: 06/24/17 09:23 Dose: 30 mg Lisinopril (Prinivil Tab*) 20 mg PO BEDTIME JUL[facility]NA Multivitamins/Minerals (Theragran/Minerals Tab*) 1 tab PO QAM [facility] Last Admin: 06/24/17 09:24 Dose: 1 tab Oxygen Devices in Use Now: Nasal Cannula Appearance: Middle-aged, obese, F, sitting on bed in NAD Eyes: No Scleral Icterus Ears/Nose/Mouth/Throat: Mucous Membranes Moist Neck: NL Appearance and Movements; NL JVP Respiratory: Symmetrical Chest Expansion and Respiratory Effort, Clear to Auscultation Cardiovascular: NL Sounds; No Murmurs; No JVD, RRR Abdominal: - - Obese, soft, NTND, BS+ Lymphatic: No Cervical Adenopathy Extremities: No Edema Neurological: Alert and Oriented x 3, - - Reports diminished sensation on V2 on the L, L sided hemiparesis (?effort) Result Diagrams: 06/23/17 22:45 06/23/17 22:45 Additional Lab and Data: Lab Results 06/23/17 06/23/17 06/23/17 Range/Units 22:45 22:45 22:45 WBC 9.3 (3.5-10.8) 10^3/ul RBC 4.74 (4.0-5.4) 10^6/ul Hgb 13.7 (12.0-16.0) g/dl Hct 40 (35-47) % MCV 84 (80-97) fL MCH 29 (27-31) pg MCHC 34 (31-36) g/dl RDW 17 H (10.5-15) % Plt Count 177 (150-450) 10^3/ul MPV 9 (7.4-10.4) um3 Neut % (Auto) 50.7 (38-83) % Lymph % (Auto) 39.5 (25-47) % [place] % (Auto) 7.5 (1-9) % Eos % (Auto) 1.7 (0-6) % Baso % (Auto) 0.6 (0-2) % Absolute Neuts (auto) 4.7 (1.5-7.7) 10^3/ul Absolute Lymphs (auto) 3.7 (1.0-4.8) 10^3/ul Absolute Monos (auto) 0.7 (0-0.8) 10^3/ul Absolute Eos (auto) 0.2 (0-0.6) 10^3/ul Absolute Basos (auto) 0.1 (0-0.2) 10^3/ul Absolute Nucleated RBC 0 10^3/ul Nucleated RBC % 0 INR (Anticoag Therapy) 1.04 (0.89-1.11) APTT 31.3 (26.0-36.3) seconds Sodium 137 (133-145) mmol/L Potassium 4.2 (3.5-5.0) mmol/L Chloride 103 (101-111) mmol/L Carbon Dioxide 26 (22-32) mmol/L Anion Gap 8 (2-11) mmol/L BUN 12 (6-24) mg/dL Creatinine 0.67 (0.51-0.95) mg/dL Est GFR ( Amer) 118.0 (>60) Est GFR (Non-Af Amer) 91.7 (>60) BUN/Creatinine Ratio 17.9 (8-20) Glucose 140 H (70-100) mg/dL POC Glucose (mg/dL) (70-100) mg/dL Calcium 9.0 (8.6-10.3) mg/dL Total Bilirubin 0.40 (0.2-1.0) mg/dL AST 13 (13-39) U/L ALT 14 (7-52) U/L Alkaline Phosphatase 46 (34-104) U/L Total Protein 6.8 (6.4-8.9) g/dL Albumin 3.9 (3.2-5.2) g/dL Globulin 2.9 (2-4) g/dL Albumin/Globulin Ratio 1.3 (1-3) Triglycerides 225 mg/dL Cholesterol 170 mg/dL LDL Cholesterol 86 mg/dL HDL Cholesterol 38.7 mg/dL Urine Color Urine Appearance Urine pH (5-9) Ur Specific [place] (1.010-1.030) Urine Protein (Negative) Urine Ketones (Negative) Urine Blood (Negative) Urine Nitrate (Negative) Urine Bilirubin (Negative) Urine Urobilinogen (Negative) Ur Leukocyte Esterase (Negative) Urine WBC (Auto) (Absent) Urine RBC (Auto) (Absent) Ur Squamous Epith Cells (Absent) Urine Bacteria (Absent) Urine Glucose (Negative) Blood Type Antibody Screen 06/23/17 06/24/17 06/24/17 Range/Units 22:45 00:00 02:12 WBC (3.5-10.8) 10^3/ul RBC (4.0-5.4) 10^6/ul Hgb (12.0-16.0) g/dl Hct (35-47) % MCV (80-97) fL MCH (27-31) pg MCHC (31-36) g/dl RDW (10.5-15) % Plt Count (150-450) 10^3/ul MPV (7.4-10.4) um3 Neut % (Auto) (38-83) % Lymph % (Auto) (25-47) % [place] % (Auto) (1-9) % Eos % (Auto) (0-6) % Baso % (Auto) (0-2) % Absolute Neuts (auto) (1.5-7.7) 10^3/ul Absolute Lymphs (auto) (1.0-4.8) 10^3/ul Absolute Monos (auto) (0-0.8) 10^3/ul Absolute Eos (auto) (0-0.6) 10^3/ul Absolute Basos (auto) (0-0.2) 10^3/ul Absolute Nucleated RBC 10^3/ul Nucleated RBC % INR (Anticoag Therapy) (0.89-1.11) APTT (26.0-36.3) seconds Sodium (133-145) mmol/L Potassium (3.5-5.0) mmol/L Chloride (101-111) mmol/L Carbon Dioxide (22-32) mmol/L Anion Gap (2-11) mmol/L BUN (6-24) mg/dL Creatinine (0.51-0.95) mg/dL Est GFR ( Amer) (>60) Est GFR (Non-Af Amer) (>60) BUN/Creatinine Ratio (8-20) Glucose (70-100) mg/dL POC Glucose (mg/dL) 87 (70-100) mg/dL Calcium (8.6-10.3) mg/dL Total Bilirubin (0.2-1.0) mg/dL AST (13-39) U/L ALT (7-52) U/L Alkaline Phosphatase (34-104) U/L Total Protein (6.4-8.9) g/dL Albumin (3.2-5.2) g/dL Globulin (2-4) g/dL Albumin/Globulin Ratio (1-3) Triglycerides mg/dL Cholesterol mg/dL LDL Cholesterol mg/dL HDL Cholesterol mg/dL Urine Color Straw Urine Appearance Clear Urine pH 6.0 (5-9) Ur Specific [place] 1.008 L (1.010-1.030) Urine Protein Negative (Negative) Urine Ketones Negative (Negative) Urine Blood 1+ H (Negative) Urine Nitrate Negative (Negative) Urine Bilirubin Negative (Negative) Urine Urobilinogen Negative (Negative) Ur Leukocyte Esterase Trace H (Negative) Urine WBC (Auto) Trace(0-5/hpf) (Absent) Urine RBC (Auto) Trace(0-2/hpf) (Absent) Ur Squamous Epith Cells Present H (Absent) Urine Bacteria Absent (Absent) Urine Glucose Negative (Negative) Blood Type A Negative Antibody Screen Negative Assess/Plan/Problems-Billing Assessment: Slurred speech, worsening L sided weakness in a 56 yo F with hx of HTN, HLD, moyamoya, B/L extracranial-intracranial bypass surgery complicated by hemorrhagic stroke and SDH, DM, CKD3, bipolar disorder - Patient Problems (1) Left-sided weakness Current Visit: Yes Comment: slurred speech. Exam difficult, unclear if patient is putting forth maximum effort. This seems to have happened in the setting of a decline over a few weeks (depression, more sedentary). Appreciate Neurology assistance. MRI pending. Increased Atorvastatin to 40 mg qhs. Will hold PM CCB and BETO for now. Continue tele monitoring and neuro checks. PT/OT/ Speech (2) Hypertension Current Visit: No Comment: Continue Coreg. Holding Lisinopril and Cardizem. (3) Bipolar disorder Current Visit: No Comment: continue home medications (4) DM2 (diabetes mellitus, type 2) Current Visit: No Comment: Sugars are under good control on lispro sliding scale. Victoza and glimepiride are on hold. Resume upon discharge. (5) Dyslipidemia Current Visit: No Comment: Continue lipitor at increased dose (6) DVT prophylaxis Current Visit: No Comment: SQ heparin Status and Disposition: Inpatient for CVA work-up
--- NOTE | 2017-06-24 14:39 | CONS ---
CC: Dr. Geraldo Calderón; Dr. Ang Zelaya CONSULTATION REPORT: DATE OF CONSULT: 06/24/17 REASON FOR CONSULT: Change in speech and increased left-sided weakness. HISTORY OF PRESENT ILLNESS: Jewels Sol is a 56-year-old woman with history of diabetes, hypertension, dyslipidemia, and moyamoya disease, status post bilateral extracranial-intracranial artery bypasses, complicated by hemorrhagic stroke and subdural hematoma, who now presents with change in speech and left- sided weakness. Jewels has been followed by Dr. Caldeórn as an outpatient and was diagnosed with moyamoya disease and went on to have vascular bypass procedures done in [place] : October on the right side and in December on the left side. She indicates that the surgery on the left side was complicated by a stroke. Dr. Rogers's previous consultation documents component of subdural hematoma and small parenchymal hemorrhage. The patient indicates that she has had residual difficulty with speech and left-sided weakness since that time. She went through rehab. More recently she has not been able to exercise. She has been very depressed and was admitted to the mental health unit from 06/04/17 to 06/09 for bipolar disorder with depression. She tells me that she has continued her medications. She has had some episodes of lightheadedness. She has continued on aspirin and statin. She tells me that she has had intermittent UTIs and usually has one, each time she goes to mental health. Yesterday, she was doing okay until around 1630 when she found it harder to stand correctly. She had to go to bathroom, she usually walks with a walker, and she found it much more difficulty. Of note, she has walked with a cane, but in the last 2 weeks she has been progressing and using the walker more, but she was much worse last night. She added, today she also had a headache everywhere that was constant, without nausea and vomiting, but with phonophobia and no photophobia. She felt like there is a light shining in her left eye, which has resolved, and her headache is better and has responded to Tylenol. She had difficulty with speech and felt like it was slow and she needed to think to get words out, and she still feels that her left leg maybe a little bit worse and that she has had some numbness distally to the knee on the left- hand side. It appears that ER consulted tele medicine who suggested CTA on admission. She had CTA of the brain and neck, and I refer to the report for details. There was evidence of her previous bypasses and otherwise they felt unchanged from previous. Her CT of the brain showed no acute changes as well as some atrophy. This film was reviewed directly. She was admitted in March and Dr. Rogers saw her for previous shaking episodes with negative EEGs, this was not a complaint on today's visit. PAST MEDICAL HISTORY: Includes diabetes, hypertension, hyperlipidemia, previous left carotid stent in 2004, moyamoya disease with bilateral extracranial- intracranial artery bypass in [place] in October 2016 and December 2016, complicated by subdural hematoma and small parenchymal hemorrhage per previous Neurology notes. She also has history of sleep apnea, on CPAP, history of bipolar disease and borderline personality disorder, recently admitted to mental health for depression, emphysema, congestive heart failure in the past, GERD, angina, previous appendectomy. She tells me she previously was positive for HPV, but she tells me it has resolved. CURRENT MEDICATIONS: Include: 1. Normal saline 50 mL per hour. 2. Dextrose p.r.n. 3. Albuterol 2 puffs inhaled q.6 hours p.r.n. shortness of breath. 4. Alprazolam 1 mg p.o. q.h.s. p.r.n. anxiety. 5. Fioricet 1 tablet p.o. q.6 hours p.r.n. migraine headache. 6. Acetaminophen 650 mg p.o. q.4 hours p.r.n. fever or pain. 7. Heparin 5000 units subcu q.8 hours. 8. Insulin per protocol. 9. Wellbutrin 100 mg p.o. b.i.d. 10. Coreg 6.25 mg p.o. b.i.d. 11. Pristiq 100 mg p.o. q.a.m. 12. Depakote extended release 1000 mg p.o. b.i.d. 13. Docusate 100 mg p.o. b.i.d. 14. Prevacid 30 mg p.o. q.a.m. 15. Multivitamin 1 tablet p.o. q.a.m. 16. Atorvastatin 20 mg p.o. q.p.m. 17. Saphris 10 mg sublingual q.h.s. 18. Aspirin 325 mg p.o. q.p.m. 19. Diltiazem CD 120 mg p.o. q.h.s. 20. Gabapentin 300 mg p.o. q.h.s. 21. Lisinopril 20 mg p.o. q.h.s. ALLERGIES: Include MORPHINE and DEMEROL, which both cause vomiting; AUGMENTIN causes a rash; and MACROBID causes a rash. FAMILY HISTORY: Includes her mother at 71, who had Alzheimer's disease that started at age 60. Her father at 51 of a brain tumor. She has a history of 2 brothers and 1 sister; of the 2 brothers the older has hypertension and the sister had gastric bypass. She has 2 daughters, the older with anxiety, the younger who is healthy. SOCIAL HISTORY: Mrs. Sol indicates that she does not smoke and stopped in 2004, and smoked for 26 years prior. She does not drink alcohol. She lives with her daughter. She is a . REVIEW OF SYSTEMS: When asked about vision changes, I obtained history of the shining light in her eye and headache with phonophobia last night. Her speech has changed. She feels like she needs to think more to speak; thinks her speech is better today, but not back to baseline. She has had no change in swallow. No change in bowel or bladder habits. There has been numbness distally in the left leg. She feels her left side is still weaker. She has rashes underneath her pannus, which her aide helps her powder. Psychiatric history is as mentioned above. There has been no weight loss, drenching night sweats, or high fevers for unknown reason. She feels her psychiatric status has stabilized since discharge, but she is still having a difficult time because her therapist is on a medical leave and she is having a hard time switching therapist. PHYSICAL EXAMINATION: Mrs. Sol's most recent vitals include a blood pressure of 133/100, saturation 96%, pulse was 78, temperature was 98 degrees Fahrenheit. She had a regular cardiac rhythm. Heart sounds were distant. She had no carotid bruit. Her lungs appeared to be clear to auscultation. Peripheral pulses could be felt at 1+ on the dorsalis pedis and posterior tibialis. No peripheral edema was noted and no rashes. She was awake, alert, articulate. She had full extraocular movements. I had a hard time visualizing her fundi. Her pupils were equal and responsive to light. She had full franco to confrontation. Her facial expression, sensation, and hearing were equal. Palate was upgoing. Tongue was midline. Sternocleidomastoid and trapezius were 5/5 in strength. No dysarthria was noted. She had a mild left pronator drift. Her right arm was strong and in her left arm, there was give-way weakness that was variable, about 5-/5 throughout. In her lower extremities, her right lower extremity was strong and in her left lower extremity she had external rotation when lying in bed at baseline. There was difficulty lifting the left leg off of the bed at about 2/5 to 3/5, but later demonstrated [id number] movement slowly, but accurately. Her knee flexion and extension were weak at about 5-/5 , foot dorsiflexion 5-/5. She felt there was decreased sharp sensation in the left leg compared to the right, but otherwise cold and light touch were symmetric as they were in the upper extremities. Sharp was intact in the left upper extremity. There was vibration sensation that was decreased by only 5 seconds in toes. Proprioception was normal. She had reflexes at 1+ in the upper extremities, absent in the lower extremities. Toes were downgoing. Gait was not tested at this time. Therapy has been requested, given her weight and weakness it would be best to do this evaluation with help. IMPRESSION AND PLAN: Jewels Sol is a 56-year-old woman with history of moyamoya disease, status post bilateral extracranial-intracranial artery bypass in October 2016 on the right and on the left in December 2016, complicated by stroke, with notes in previous Neurology of subdural bleed with a parenchymal component as well as a history of diabetes, hypertension, dyslipidemia, and sleep apnea, on CPAP, who has had some speech changes and left-sided weakness at baseline and was admitted last night with acute worsening of chronic symptoms while taking aspirin, atorvastatin, and indicating that she was continuing on all her other medications. This also occurs in the setting of subacute decline with history of decreased exercise, which she attributes to depression. Differential diagnosis does include new subtle intracranial event. She certainly has significant risk factors for stroke. Given her decline and potential for hypoperfusion, I will check an MRI of the brain to look for new ischemia. Her CTA was read as unchanged with the exception of having bypass as noted. She has had decompensation in the setting of decreased activity and certainly lack of activity maybe contributing. She is going to need ongoing therapy. Physical Therapy, Occupational Therapy, and Speech Therapy consult had been requested. During review of systems a history was obtained raising question if there may have been a component of migrainous phenomenon with bright light in the left eye as well as headache. This is now better. The visual symptoms have resolved and Tylenol has helped the headache, albeit there is some left. TIME SPENT: Over an hour was spent in direct patient care. In addition, further time was spent reviewing chart and discussing case for a total of 90 minutes. The patient was educated regarding differential diagnosis and all questions were answered. [id number]/CPS #: [id number] SAURAV
[2017-06-24] MEDS ORDERED: Atorvastatin* 20 MG TAB PO SCH (17:00)
[2017-06-24] MEDS ORDERED: Atorvastatin* 40 MG TAB PO SCH (17:00)
[2017-06-24] MEDS ORDERED: ASENAPINE 10 MG SL SCH (21:00)
[2017-06-24] MEDS ORDERED: Aspirin TAB* 325 MG PO SCH (21:00)
[2017-06-24] MEDS ORDERED: Lisinopril TAB* 10 MG PO SCH (21:00)
[2017-06-24] MEDS ORDERED: Gabapentin CAP(*) 300 MG PO SCH (21:00)
[2017-06-24] MEDS ORDERED: Diltiazem CD CAP* 120 MG PO SCH (21:00)
[2017-06-25] MEDS: Heparin VIAL(*) 5000 UNITS/ML VIAL (FIVE THOUSAND) SUBCUT SCH ×2 (05:38→15:07)
[2017-06-25 07:03] LABS: HDL Cholesterol 31.5 mg/dL
[2017-06-25] MEDS: NS 0.9% 1000 ML* 1,000 ML IV SCH (07:48)
[2017-06-25] MEDS: Insulin LISPRO* 1 UNITS UNIT SUBCUT SCH ×2 (08:57→12:39)
[2017-06-25] MEDS: DESVENLAFAXINE 100 MG PO SCH (08:58)
[2017-06-25] MEDS: Multivitamins/Minerals TAB PO SCH (08:59)
[2017-06-25] MEDS: Carvedilol TAB* 6.25 MG PO SCH (08:59)
[2017-06-25] MEDS: Docusate CAP* 100 MG PO SCH (08:59)
[2017-06-25] MEDS: Lansoprazole SOLUTAB* 30 MG PO SCH (09:00)
[2017-06-25] MEDS ORDERED: buPROPion TAB* 100 MG PO SCH (09:00)
[2017-06-25] MEDS: Divalproex ER TAB(*) 500 MG PO SCH (09:05)
--- NOTE | 2017-06-25 10:00 | PN ---
Subjective Date of Service: 06/25/17 Interval History: Patient seen this morning. Reports some improvement in her L sided weakness today, feels it is almost back to normal. No pain, no SOB. Good PO intake. Family History: Unchanged from Admission Social History: Unchanged from Admission Past Medical History: Unchanged from Admission Objective Active Medications: Acetaminophen (Tylenol Tab*) 650 mg PO Q4H PRN Acetaminophen/Butalbital/Caffeine (Fioricet Tab*) 1 tab PO Q6H PRN Albuterol (Ventolin Hfa Inhaler*) 2 puff INH Q6HR PRN Alprazolam (Xanax Tab*) 1 mg PO BEDTIME PRN Asenapine (Saphris(Nf)) 10 mg SL BEDTIME JULIANA Aspirin (Aspirin Tab*) 325 mg PO BEDTIME JULIANA Atorvastatin Calcium (Lipitor*) 40 mg PO 1700 JULIANA Bupropion HCl (Wellbutrin Tab*) 200 mg PO DAILY JULIANA Carvedilol (Coreg Tab*) 6.25 mg PO BID JULIANA Desvenlafaxine Succinate (Pristiq(Nf)) 100 mg PO QAM JULIANA Dextrose (D50w Syringe 50 Ml*) 12.5 gm IV PUSH .FOR FS < 60 - SS PRN Divalproex Sodium (Depakote Er Tab(*)) 1,000 mg PO BID JULIANA Docusate Sodium (Colace Cap*) 100 mg PO BID JULIANA Gabapentin (Neurontin Cap(*)) 300 mg PO BEDTIME JULIANA Heparin Sodium (Porcine) (Heparin Vial(*)) 5,000 units SUBCUT Q8HR JULIANA Sodium Chloride (Ns 0.9% 1000 Ml*) 1,000 mls @ 50 mls/hr IV .per rate JULIANA Insulin Human Lispro (Humalog*) 0 units SUBCUT ACHS JULIANA Lansoprazole (Prevacid Solutab*) 30 mg PO QAM JULIANA Multivitamins/Minerals (Theragran/Minerals Tab*) 1 tab PO QAM JULIANA Vital Signs 06/24/17 06/24/17 06/24/17 16:04 20:48 20:59 Temperature 97.9 F Pulse Rate 95 85 Respiratory 23 20 20 Rate Blood Pressure 125/56 142/70 (mmHg) O2 Sat by Pulse 98 92 Oximetry 06/24/17 06/25/17 06/25/17 22:59 00:19 04:10 Temperature 97.7 F 97.6 F Pulse Rate 79 81 Respiratory 20 20 20 Rate Blood Pressure 148/57 155/69 (mmHg) O2 Sat by Pulse 91 92 Oximetry 06/25/17 06/25/17 07:17 08:14 Temperature 97.9 F Pulse Rate 77 Respiratory 18 Rate Blood Pressure 167/72 (mmHg) O2 Sat by Pulse 93 92 Oximetry Oxygen Devices in Use Now: Nasal Cannula Appearance: Middle-aged, obese, F, laying in bed in NAD Eyes: No Scleral Icterus Ears/Nose/Mouth/Throat: Mucous Membranes Moist Neck: NL Appearance and Movements; NL JVP Respiratory: Symmetrical Chest Expansion and Respiratory Effort, Clear to Auscultation Cardiovascular: NL Sounds; No Murmurs; No JVD, RRR Abdominal: NL Sounds; No Tenderness; No Distention Lymphatic: No Cervical Adenopathy Extremities: No Edema Skin: No Rash or Ulcers Neurological: Alert and Oriented x 3, - - LUE strength improved from yesterday, now 4+/5, still some LLE weakness, 4-/5 in hip flexion/extension, difficult to assess full effort Result Diagrams: 06/23/17 22:45 06/23/17 22:45 Additional Lab and Data: Lab Results 06/23/17 06/23/17 06/23/17 Range/Units 22:45 22:45 22:45 WBC 9.3 (3.5-10.8) 10^3/ul RBC 4.74 (4.0-5.4) 10^6/ul Hgb 13.7 (12.0-16.0) g/dl Hct 40 (35-47) % MCV 84 (80-97) fL MCH 29 (27-31) pg MCHC 34 (31-36) g/dl RDW 17 H (10.5-15) % Plt Count 177 (150-450) 10^3/ul MPV 9 (7.4-10.4) um3 Neut % (Auto) 50.7 (38-83) % Lymph % (Auto) 39.5 (25-47) % [place] % (Auto) 7.5 (1-9) % Eos % (Auto) 1.7 (0-6) % Baso % (Auto) 0.6 (0-2) % Absolute Neuts (auto) 4.7 (1.5-7.7) 10^3/ul Absolute Lymphs (auto) 3.7 (1.0-4.8) 10^3/ul Absolute Monos (auto) 0.7 (0-0.8) 10^3/ul Absolute Eos (auto) 0.2 (0-0.6) 10^3/ul Absolute Basos (auto) 0.1 (0-0.2) 10^3/ul Absolute Nucleated RBC 0 10^3/ul Nucleated RBC % 0 INR (Anticoag Therapy) 1.04 (0.89-1.11) APTT 31.3 (26.0-36.3) seconds Sodium 137 (133-145) mmol/L Potassium 4.2 (3.5-5.0) mmol/L Chloride 103 (101-111) mmol/L Carbon Dioxide 26 (22-32) mmol/L Anion Gap 8 (2-11) mmol/L BUN 12 (6-24) mg/dL Creatinine 0.67 (0.51-0.95) mg/dL Est GFR ( Amer) 118.0 (>60) Est GFR (Non-Af Amer) 91.7 (>60) BUN/Creatinine Ratio 17.9 (8-20) Glucose 140 H (70-100) mg/dL POC Glucose (mg/dL) (70-100) mg/dL Calcium 9.0 (8.6-10.3) mg/dL Total Bilirubin 0.40 (0.2-1.0) mg/dL AST 13 (13-39) U/L ALT 14 (7-52) U/L Alkaline Phosphatase 46 (34-104) U/L Total Protein 6.8 (6.4-8.9) g/dL Albumin 3.9 (3.2-5.2) g/dL Globulin 2.9 (2-4) g/dL Albumin/Globulin Ratio 1.3 (1-3) Triglycerides 225 mg/dL Cholesterol 170 mg/dL LDL Cholesterol 86 mg/dL HDL Cholesterol 38.7 mg/dL Urine Color Urine Appearance Urine pH (5-9) Ur Specific [place] (1.010-1.030) Urine Protein (Negative) Urine Ketones (Negative) Urine Blood (Negative) Urine Nitrate (Negative) Urine Bilirubin (Negative) Urine Urobilinogen (Negative) Ur Leukocyte Esterase (Negative) Urine WBC (Auto) (Absent) Urine RBC (Auto) (Absent) Ur Squamous Epith Cells (Absent) Urine Bacteria (Absent) Urine Glucose (Negative) Blood Type Antibody Screen 06/23/17 06/24/17 06/24/17 Range/Units 22:45 00:00 02:12 WBC (3.5-10.8) 10^3/ul RBC (4.0-5.4) 10^6/ul Hgb (12.0-16.0) g/dl Hct (35-47) % MCV (80-97) fL MCH (27-31) pg MCHC (31-36) g/dl RDW (10.5-15) % Plt Count (150-450) 10^3/ul MPV (7.4-10.4) um3 Neut % (Auto) (38-83) % Lymph % (Auto) (25-47) % [place] % (Auto) (1-9) % Eos % (Auto) (0-6) % Baso % (Auto) (0-2) % Absolute Neuts (auto) (1.5-7.7) 10^3/ul Absolute Lymphs (auto) (1.0-4.8) 10^3/ul Absolute Monos (auto) (0-0.8) 10^3/ul Absolute Eos (auto) (0-0.6) 10^3/ul Absolute Basos (auto) (0-0.2) 10^3/ul Absolute Nucleated RBC 10^3/ul Nucleated RBC % INR (Anticoag Therapy) (0.89-1.11) APTT (26.0-36.3) seconds Sodium (133-145) mmol/L Potassium (3.5-5.0) mmol/L Chloride (101-111) mmol/L Carbon Dioxide (22-32) mmol/L Anion Gap (2-11) mmol/L BUN (6-24) mg/dL Creatinine (0.51-0.95) mg/dL Est GFR ( Amer) (>60) Est GFR (Non-Af Amer) (>60) BUN/Creatinine Ratio (8-20) Glucose (70-100) mg/dL POC Glucose (mg/dL) 87 (70-100) mg/dL Calcium (8.6-10.3) mg/dL Total Bilirubin (0.2-1.0) mg/dL AST (13-39) U/L ALT (7-52) U/L Alkaline Phosphatase (34-104) U/L Total Protein (6.4-8.9) g/dL Albumin (3.2-5.2) g/dL Globulin (2-4) g/dL Albumin/Globulin Ratio (1-3) Triglycerides mg/dL Cholesterol mg/dL LDL Cholesterol mg/dL HDL Cholesterol mg/dL Urine Color Straw Urine Appearance Clear Urine pH 6.0 (5-9) Ur Specific [place] 1.008 L (1.010-1.030) Urine Protein Negative (Negative) Urine Ketones Negative (Negative) Urine Blood 1+ H (Negative) Urine Nitrate Negative (Negative) Urine Bilirubin Negative (Negative) Urine Urobilinogen Negative (Negative) Ur Leukocyte Esterase Trace H (Negative) Urine WBC (Auto) Trace(0-5/hpf) (Absent) Urine RBC (Auto) Trace(0-2/hpf) (Absent) Ur Squamous Epith Cells Present H (Absent) Urine Bacteria Absent (Absent) Urine Glucose Negative (Negative) Blood Type A Negative Antibody Screen Negative Assess/Plan/Problems-Billing Assessment: Slurred speech, worsening L sided weakness in a 56 yo F with hx of HTN, HLD, moyamoya, B/L extracranial-intracranial bypass surgery complicated by hemorrhagic stroke and SDH, DM, CKD3, bipolar disorder - Patient Problems (1) Left-sided weakness Current Visit: Yes Comment: slurred speech. Exam difficult, unclear if patient is putting forth maximum effort. This seems to have happened in the setting of a decline over a few weeks (depression, more sedentary). Appreciate Neurology assistance. MRI pending. Increased Atorvastatin to 40 mg qhs. Will hold PM CCB and BETO for now. Continue tele monitoring and neuro checks. PT/OT/ Speech (2) Hypertension Current Visit: No Comment: Continue Coreg. Holding Lisinopril and Cardizem. (3) Bipolar disorder Current Visit: No Comment: continue home medications (4) DM2 (diabetes mellitus, type 2) Current Visit: No Comment: Sugars are under good control on lispro sliding scale. Victoza and glimepiride are on hold. Resume upon discharge. (5) Dyslipidemia Current Visit: No Comment: Continue lipitor at increased dose (6) DVT prophylaxis Current Visit: No Comment: SQ heparin Status and Disposition: Inpatient for CVA work-up
[2017-06-25 11:26] VITALS: BP 151/60
--- NOTE | 2017-06-25 12:59 | RAD ---
Indication: Dysarthria, history of moyamoya Image sequences: Sagittal and axial T1, axial T2, FLAIR, diffusion and susceptibility weighted images of the brain were obtained. Ventricular structures are midline. No midline shift is noted. The extra-axial spaces are unremarkable. There is no evidence of intracranial mass or hemorrhage. Periventricular lucency consistent with chronic anemic White matter change is noted. There is no evidence of intracranial mass or hemorrhage. No restriction of diffusion is noted. Overall this has not significantly changed since previous exam. Mastoid air cells and paranasal sinuses are unremarkable. Posterior fossa is grossly unremarkable. IMPRESSION: Nonspecific white matter signal abnormality no significant change since August 18, 2016 with no acute restriction of diffusion.
--- NOTE | 2017-06-26 00:08 | DS ---
CC: Dr. Ang Zelaya; Dr. Geraldo Calderón, Neurology* DISCHARGE SUMMARY: DATE OF ADMISSION: 06/24/17 DATE OF DISCHARGE: 06/25/17 PRIMARY CARE PHYSICIAN: Dr. Ang Zelaya. PRINCIPAL DISCHARGE DIAGNOSIS: Weakness and slurred speech. SECONDARY DIAGNOSES: 1. History of morbid obesity. 2. Type 2 diabetes. 3. Hypertension. 4. Dyslipidemia. 5. Bipolar disorder. 6. Carotid stenting. 7. Intracranial bypass, moyamoya carotid stenting. 8. Chronic obstructive pulmonary disease, on home oxygen. 9. Chronic kidney disease 3. DISCHARGE MEDICATION REGIMEN: 1. Atorvastatin 40 mg by mouth daily, increased from 20 mg. 2. Alprazolam 1 mg by mouth at bedtime as needed for anxiety. 3. Coreg 6.25 mg by mouth 2 times daily. 4. Diltiazem 120 mg by mouth at bedtime. 5. Depakote 1000 mg by mouth 2 times daily. 6. Victoza 1.8 mg subcutaneous nightly. 7. Glimepiride 4 mg by mouth daily. 8. Lansoprazole 30 mg by mouth daily. 9. Lisinopril 20 mg by mouth at bedtime. 10. Albuterol sulfate 2 puffs inhaled mg every 6 hours as needed for shortness of breath or wheezing. 11. Calcium 500 mg by mouth 2 times daily. 12. Pristiq 100 mg by mouth daily. 13. Gabapentin 300 mg by mouth at bedtime. 14. Nystatin 1 application topically 3 times daily as needed for rash. 15. Aspirin 325 mg by mouth at bedtime. 16. Ranitidine 300 mg by mouth at bedtime. 17. Asenapine 10 mg sublingual at bedtime. 18. Multivitamin 1 tablet by mouth daily. 19. Colace 100 mg by mouth 2 times daily. 20. Zofran 4 mg by mouth every 6 hours as needed for nausea. 21. Fioricet 1 tablet by mouth every 6 hours as needed for migraine. 22. Bupropion 100 mg by mouth 2 times daily. STUDIES DONE DURING HOSPITALIZATION: CT of the brain, impression: No acute intracranial process evident. Mild involutional change. Stable exam. CT of the head and neck, impression: No significant change in markedly attenuated bilateral internal carotid arteries likely reflecting sequelae of vasculitis and grossly patent stent at the left common carotid artery. Unremarkable vertebral arteries. The constellation of findings consistent with moyamoya disease with vaso-occlusive disease at the [place] in M1 and A1 cerebral artery segments without significant change, status post bilateral external carotid artery to middle cerebral artery bypass stable exam compared with 08/18/16. MRI of the brain, impression: Nonspecific white matter signal abnormality, no significant change since 08/18/16. HISTORY OF PRESENT ILLNESS AND HOSPITAL SUMMARY: Please see the full history and physical by Dr. Yana Loya for full details. Briefly, Ms. Sol is a 56-year- old female with a complicated past medical history as above including moyamoya syndrome, status post intra-extracranial bypasses. The patient presented to the hospital with what she reported as a worsening left-sided weakness and slurred speech. Her speech symptoms resolved quickly and her weakness improved over the following days. The patient has an extensive psych history and on exam, it was difficult to say how much effort she was putting forth with some of her neuro exam making her symptoms difficult to fully assess. She was admitted to the hospital, underwent a stroke workup as above, which was largely unchanged. Of note, her LDL was slightly above goal at 86. Her atorvastatin was increased. Otherwise, her medications remained the same. She was evaluated by Physical Therapy and cleared for discharge home with home PT. She will need to follow up with her PCP and with her neurologist, Dr. Calderón. TIME SPENT: Total time spent on this discharge 45 minutes. This is a summary of the hospitalization. Please see the full medical record for further details. [id number]/CPS #: [id number] MTDD
== END 2017-06-25 15:15 | disposition home or self-care (01) | DRG 57 ==
LOC: ED 21:58 → MEDTELE 06-24 05:29 → OBSVTOIN 06-24 12:20
PROVIDERS: ADMIT Internal Medicine; ATTEND Hospitalist
DX: G81.94 Hemiplegia, unspecified affecting left nondominant side (principal); I67.5 Moyamoya disease; E11.22 Type 2 diabetes mellitus with diabetic chronic kidney disease; I13.0 Hypertensive heart and chronic kidney disease with heart failure and stage 1 through stage 4 chronic kidney disease, or unspecified chronic kidney disease; I50.9 Heart failure, unspecified; Z68.42 Body mass index [BMI] 45.0-49.9, adult; E66.01 Morbid (severe) obesity due to excess calories; I12.9 Hypertensive chronic kidney disease with stage 1 through stage 4 chronic kidney disease, or unspecified chronic kidney disease; N18.3 Chronic kidney disease, stage 3 (moderate); E78.5 Hyperlipidemia, unspecified; F31.9 Bipolar disorder, unspecified; J44.9 Chronic obstructive pulmonary disease, unspecified; F60.3 Borderline personality disorder; I77.9 Disorder of arteries and arterioles, unspecified; Z99.81 Dependence on supplemental oxygen; Z79.84 Long term (current) use of oral hypoglycemic drugs; Z79.82 Long term (current) use of aspirin; Z79.899 Other long term (current) drug therapy; Z88.1 Allergy status to other antibiotic agents; Z88.5 Allergy status to narcotic agent; Z88.8 Allergy status to other drugs, medicaments and biological substances; Z80.9 Family history of malignant neoplasm, unspecified; Z83.3 Family history of diabetes mellitus; Z87.891 Personal history of nicotine dependence; R47.81 Slurred speech
CPT/HCPCS: 36415; 70450; 70496; 70498; 70551; 80053; 80061; 81003; 81015; 85025; 85610; 85730; 86850; 86900; 86901; 87086; 93005; 94760; A9270-GY; G8999-GN-CI; G9186-GN-CH; J1644; Q9967

== ENCOUNTER 2017-08-14 09:45 | Emergency (ER) | payer MEDICARE, MEDICAID ==
[2017-08-14] MEDS ORDERED: diPHENhydraMINE IV* 50 MG/ML 1 ml VIAL (BENADRYL) IV ONE (10:50)
[2017-08-14] MEDS ORDERED: Metoclopramide IV* 5 MG/ML 2 ML VIAL IV SLOW PU ONE (10:50)
--- NOTE | 2017-08-14 11:10 | RAD ---
HISTORY: Headache COMPARISONS: June 23, 2017 TECHNIQUE: Multiple contiguous axial CT scans were obtained of the head without intravenous contrast. FINDINGS: HEMORRHAGE/INFARCT: There is no hemorrhage or acute infarct. MASSES/SHIFT: There is no mass or shift. EXTRA-AXIAL SPACES: There are no extra-axial fluid collections. SULCI AND VENTRICLES: The sulci and ventricles are normal in size and position for the patient's stated age. CEREBRUM: There is mild hypoattenuation of the periventricular and subcortical white matter. BRAINSTEM: There are no focal parenchymal abnormalities. CEREBELLUM: There are no focal parenchymal abnormalities. VESSELS: The vessels are grossly normal. PARANASAL SINUSES: The paranasal sinuses are clear. ORBITS: The orbits are unremarkable. BONES AND SOFT TISSUE: There is postsurgical change to the skull OTHER: None IMPRESSION: NO ACUTE INTRACRANIAL PATHOLOGY.
[2017-08-14] MEDS ORDERED: Ketorolac INJ* 30 MG/ML 1 ML VIAL IV PUSH ONE (11:11)
[2017-08-14 11:24] LABS: Hematocrit 42 % (35-47); Mean Corpuscular HGB Conc 34 g/dl (31-36); Mean Corpuscular Hemoglobin 29 pg (27-31); Mean Corpuscular Volume 85 fL (80-97); Mean Platelet Volume 9 um3 (7.4-10.4); Red Blood Count 4.88 10^6/ul (4.0-5.4); Red Cell Distribution Width 17 % (10.5-15); White Blood Count 9.7 10^3/ul (3.5-10.8)
[2017-08-14 11:37] LABS: Albumin 4.1 g/dL (3.2-5.2); BUN/Creatinine Ratio 20.9 (8-20); Calcium 9.3 mg/dL (8.6-10.3); EGFR Non-African American 91.7 (>60); Globulin 3.1 g/dL (2-4); Potassium 4.3 mmol/L (3.5-5.0); Total Bilirubin 0.5 mg/dL (0.2-1.0); Total Protein 7.2 g/dL (6.4-8.9)
[2017-08-14] MEDS ORDERED: NS 0.9% 1000 ML* 1,000 ML IV ONE (11:43)
[2017-08-14 12:02] LABS: Erythrocyte Sed Rate 30 mm/Hr (0-30)
[2017-08-14 12:48] LABS: Urine Bacteria Absent (Absent); Urine Bilirubin Negative (Negative); Urine Glucose Negative (Negative); Urine Nitrite Negative (Negative)
[2017-08-14] MEDS ORDERED: Cefepime(*) 1 GM in NS 0.9% 50 ML* 50 ML IVPB ONE (13:56)
--- NOTE | 2017-08-14 15:14 | RAD ---
HISTORY: Headache, left-sided weakness COMPARISONS: June 25, 2017 TECHNIQUE: The following sequences were obtained of the head: Sagittal T1-weighted images, axial T2-weighted images, axial FLAIR images, axial susceptibility weighted images, axial T1-weighted images. Additionally, axial diffusion-weighted images were obtained with calculated apparent diffusion coefficients. FINDINGS: HEMORRHAGE/INFARCT: There is no hemorrhage or acute infarct. MASSES/SHIFT: There is no mass or shift. EXTRA-AXIAL SPACES/MENINGES: There are no extra-axial fluid collections. SULCI AND VENTRICLES: There is diffuse and proportional enlargement of the sulci and ventricles. CEREBRUM: There is stable left frontal encephalomalacia. There is stable elevated T2/FLAIR signal in the periventricular and subcortical white matter. BRAINSTEM: There are no focal parenchymal abnormalities. CEREBELLUM: There are no focal parenchymal abnormalities. The cerebellar tonsils are normal in size and position. SELLA: The sella is normal. PINEAL: The pineal region is clear. CP ANGLE/TEMPORAL BONES: The labyrinthine structures are grossly normal. VESSELS: Normal flow-voids are noted within the visualized vertebral vasculature. DIFFUSION ABNORMALITIES: There are no diffusion abnormalities. PARANASAL SINUSES/MASTOIDS: The paranasal sinuses are clear. ORBITS: The orbits are unremarkable. BONES AND SOFT TISSUE: There is post surgical change to the skull. OTHER: None IMPRESSION: 1. DIFFUSE INVOLUTIONAL CHANGE. 2. STABLE WHITE MATTER CHANGES SUGGESTIVE OF CHRONIC ISCHEMIA. 3. NO RESTRICTED DIFFUSION TO SUGGEST ACUTE INFARCT
--- NOTE | 2017-08-14 18:44 | ED ---
Lexi Michaels Nilda, scribed for Jose Alvarado MD on 08/14/17 at 1036 . Headache - HPI Summary HPI Summary: This patient is a 56 year old F presenting to [facility] accompanied by caregiver with a chief complaint of constant diffuse but mostly frontal headache since two days ago. She states that she woke up to the headache. The patient rates the pain 9/10 in severity. Symptoms aggravated and alleviated by nothing including Fioricet taken for the past few days. Patient reports dizziness, buzzing in ears, and LLE tingling (since yesterday). Per caregiver, patient has LLE weakness (dragging) and slow response. Patient denies N/V, visual changes, and fever. She states that she has not had a similar episode in the past. PMHx includes stroke and MoyaMoya Syndrome. PSHx brain surgeries for MoyaMoya Syndrome. No PMHx migraines. 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 Per caregiver, patient has LLE weakness (dragging) and slow response. Patient denies N/V, visual changes, and fever. - Allergies/Home Medications Allergies/Adverse Reactions: Allergies Allergy/AdvReac Type Severity Reaction Status Date / Time Nitrofurantoin Allergy Severe Rash Verified 06/23/17 22:08 [From Macrobid] Clavulanic Acid AdvReac Intermediate Nausea And Verified 06/23/17 22:08 [From Augmentin] Vomiting Meperidine [From Demerol HCl] AdvReac Intermediate Headache Verified 06/23/17 22 :08 Morphine AdvReac Nausea Verified 06/23/17 22:08 PMH/Surg Hx/FS Hx/Imm Hx Endocrine/Hematology History: Reports: Hx Diabetes, Other Endocrine/ Hematological Disorders Denies: Hx Thyroid Disease, Hx Anemia Cardiovascular History: Reports: Hx Angina, Hx Angioplasty, Hx Coronary Artery Disease, Hx Hypercholesterolemia, Hx Hypertension, Other Cardiovascular Problems /Disorders - CAD, int/ext carotid stenosis Denies: Hx Aneurysm, Hx Auto Implanted Cardiovert Defib, Hx Cardiac Arrest, Hx Cardiomegaly, Hx Congenital Heart Disease, Hx Congestive Heart Failure, Hx Deep Vein Thrombosis, Hx Hypotension, Hx Myocardial Infarction, Hx Pacemaker/ICD , Hx Peripheral Vascular Disease, Hx Rheumatic Fever, Hx Syncope, Hx Valvular Heart Disease Respiratory History: Reports: Hx Asthma, Hx Chronic Bronchitis, Hx Chronic Obstructive Pulmonary Disease (COPD) - O2 at home, Hx Pneumonia, Hx Sleep Apnea - CPAP in room for use, Other Respiratory Problems/Disorders - PNEUMONIA IN 2001 Denies: Hx Cystic Fibrosis, Hx Lung Cancer, Hx Pleural Effusion, Hx Pulmonary Edema, Hx Pulmonary Embolism, Hx Seasonal Allergies GI History: Reports: Hx Gastroesophageal Reflux Disease, Other GI Disorders - "sphincter in stomach not working" Denies: Hx Cirrhosis, Hx Crohn's Disease, Hx Diverticulosis, Hx Gall Bladder Disease, Hx Gastrointestinal Bleed, Hx Hiatal Hernia, Hx Irritable Bowel, Hx Jaundice, Hx Obstructive Bowel, Hx Ileostomy, Hx Pyloric Stenosis, Hx Ulcer History: Reports: Hx Chronic Renal Failure, Hx Renal Disease, Other Problems/Disorders - chronic kidney disease Denies: Hx Dialysis Musculoskeletal History: Reports: Hx Back Problems, Hx Scoliosis Sensory History: Reports: Hx Contacts or Glasses, Hx Vision Problem Denies: Hx Hearing Aid Opthamlomology History: Reports: Hx Contacts or Glasses, Hx Vision Problem Neurological History: Reports: Hx Headaches, Hx Migraine, Hx Seizures, Hx Transient Ischemic Attacks (TIA), Other Neuro Impairments/Disorders - Hx of 2 TIA. Hx moyamoya disease. 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 Hx Chemotherapy: No Hx Radiation Therapy: No - Surgical History Surgery Procedure, Year, and Place: uterine ablation, appendectomy, 2 bladder cystoscopies, c-sections, endoderectomy 2004, stent and balloon LICA 2005 & 2006 ( [employer] - SAFE AT 1.5T AND 3T WITH EVERETTE 2.0 W/KG 15 MINS LIMITATION) , tubal ligation, arterial bypass in the brain Hx Anesthesia Reactions: No - Immunization History Date of Tetanus Vaccine: unk Date of Influenza Vaccine: unk Infectious Disease History: No Infectious Disease History: Denies: Hx Clostridium Difficile, Hx Hepatitis, Hx Human Immunodeficiency Virus (HIV), Hx of Known/Suspected MRSA, Hx Shingles, Hx Tuberculosis, Hx Known/ Suspected VRE, Hx Known/Suspected VRSA, History Other Infectious Disease, Traveled Outside the [place] in Last 30 Days - Family History Known Family History: Positive: Cardiac Disease, Other - bipolar disorder; alcohol abuse - Social History 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 Lives: Assisted Living Alcohol Use: None Alcohol Amount: once/year Hx Substance Use: No Substance Use Type: Reports: None Hx Tobacco Use: Yes Smoking Status (MU): Former Smoker Type: Cigarettes Amount Used/How Often: quit in 2004 Have You Smoked in the Last Year: No Review of Systems Negative: Fever Positive: Other - negative visual changes Negative: Vomiting, Nausea Neurological: Other - slow response, dizziness, buzzing in ears Positive: Headache, Weakness - LLE, Paresthesia - LLE All Other Systems Reviewed And Are Negative: Yes Physical Exam Triage Information Reviewed: Yes Vital Signs On Initial Exam: Initial Vitals Temp Pulse Resp BP Pulse Ox 97.0 F 84 20 158/61 96 08/14/17 09:47 08/14/17 09:47 08/14/17 09:47 08/14/17 09:47 08/14/17 09:47 Vital Signs Reviewed: Yes Appearance: Positive: Well-Appearing, No Pain Distress Skin: Positive: Warm, Skin Color Reflects Adequate Perfusion Head/Face: Positive: Normal Head/Face Inspection Eyes: Positive: EOMI Neck: Positive: Nontender Respiratory/Lung Sounds: Positive: Clear to Auscultation, Breath Sounds Present Cardiovascular: Positive: RRR. Negative: Murmur Abdomen Description: Positive: Nontender Neurological: Positive: Alert, Oriented to Person Place, Time, CN Intact II- III. Negative: Sensory/Motor Intact - left upper and lower extremity weaker than the right side. Left arm 4/5 strength; left leg 3/5. Right side is 5/5 upper and lower, Receptive Aphasia, Expressive Aphasia, Disoriented, Slurred Speech - [place] Coma Scale Best Eye Response: 4 - Spontaneous Best Motor Response: 6 - Obeys Commands Best Verbal Response: 5 - Oriented Coma Scale Total: 15 Diagnostics - Vital Signs Vital Signs Temp Pulse Resp BP Pulse Ox 08/14/17 09:47 97.0 F 84 20 158/61 96 - Laboratory Result Diagrams: 08/14/17 11:09 08/14/17 11:09 Lab Statement: Any lab studies that have been ordered have been reviewed, and results considered in the medical decision making process. - Radiology MRI Brain Radiology Interpretation Completed By: Radiologist - MRI per radiologist reveals diffuse involutional change, stable white matter changes suggestive of chronic ischemia, and no restricted diffusion to suggest acute infarct. ED physician has reviewed this radiology report and agrees. - CT Brain CT Interpretation Completed By: Radiologist - CT Brain reveals no acute intracranial pathology. ED physician has reviewed this radiology report and agrees. Re-Evaluation - Re-Evaluation First Eval Re-Evaluation Time: 14:27 Change: Improved Comment: this patient reports she is feeling better after getting the iv meds. Awaiting MRI, and neuro consult. COvering her for uti. WIll recheck lactic after fluids. Headache Course/Dx - Course Course Of Treatment: This patient is a 56 year old F presenting to [facility] accompanied by caregiver with a chief complaint of constant diffuse but mostly frontal headache since two days ago. She states that she woke up to the headache. The patient rates the pain 9/10 in severity. Symptoms aggravated and alleviated by nothing including Fioricet taken for the past few days. Patient reports dizziness, buzzing in ears, and LLE tingling (since yesterday). Per caregiver, patient has LLE weakness (dragging) and slow response. Patient denies N/V, visual changes, and fever. She states that she has not had a similar episode in the past. PMHx includes stroke and MoyaMoya Syndrome. PSHx brain surgeries (MoyaMoya Syndrome). No PMHx migraines. [10:59] consult with Dr. Rogers (Neuro) to discuss plan of care. [17:12] Dr. Rogers (Neuro) will see patient in ED. Dr. Rogers states patient does not have stroke and may just have migraine. CT Brain reveals no acute intracranial pathology. ED physician has reviewed this radiology report and agrees. MRI per radiologist reveals diffuse involutional change, stable white matter changes suggestive of chronic ischemia, and no restricted diffusion to suggest acute infarct. ED physician has reviewed this radiology report and agrees. Pt is stable and will be D/C. Pt is agreeable with this plan. Dr Rogers has seen and consulted on the patient and feels she had a migraine that is better now. The patient has a uti as well. Will be discharged to home in good and improved condition. - Diagnoses Provider Diagnoses: Migraine headache, UTI (urinary tract infection) - Physician Notifications Discussed Care Of Patient With: Raf Rogers - Neuro Time Discussed With Above Provider: 10:59 - He recommends MRI and treat with toradol for headache. He will consult. CT brain NAD. Instructed by Provider To: Other - discussed plan of care. Discharge - Discharge Plan Condition: Stable Disposition: HOME Prescriptions: Cephalexin CAP* [Keflex CAP*] 500 mg PO TID #20 cap Patient Education Materials: Migraine Headache (ED), Urinary Tract Infection in Women (ED) Referrals: Ang Zelaya MD [Primary Care Provider] - 2 Days Geraldo Calderón MD [Medical Doctor] - The documentation as recorded by the Lexi españa Nilda accurately reflects the service I personally performed and the decisions made by , Jose Alvarado MD.
[2017-08-14 19:58] VITALS: BP 155/75
--- NOTE | 2017-08-14 22:47 | CONS ---
CC: Dr. Calderón * NEUROLOGY CONSULTATION: DATE OF CONSULT: 08/14/17 LOCATION: She is in the emergency room. REFERRING PHYSICIAN: Dr. Alvarado. CHIEF COMPLAINT: Headache. 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 She follows with Dr. Calderón in our office, has been seen in consultation by myself and Dr. Hoskins in the past with the headaches and for episodes of left arm shaking and stiffening. She had been treated with Keppra for possible seizures, but EEGs have been negative during spells and so, she is no longer on Keppra. She gets headaches episodically, typically about once per week. She typically takes butalbital sometimes several doses in a day, but it eventually goes away. She will go anywhere from 4 to 7 days without taking it. She developed a bad head-ache about 3 days ago and it just would not go away. She was taking her Fioricet every 4 hours, but it was not helping. She had photophobia and some nausea, but no vomiting. Her physical therapist evaluated her and recommended she go to the emergency room, so she presented today. Given her history of cerebrovascular disease and extracranial-intracranial bypasses, she had a number of studies including a brain CT scan, which revealed some post surgical skull changes and some mild low density in the parenchyma unchanged from prior scans. She subsequently had an MRI of the brain, which also revealed chronic areas of encephalomalacia in the left frontal region and periventricular white matter changes unchanged from prior scans. There are no diffusion abnormalities to suggest acute infarctions nor new hemorrhages. She received Toradol, Benadryl, and Reglan earlier in the emergency room and her headache is now grade 2. She has a remote history of migraines that used to be accompanied by some visual blurring and possibly scotomas, but it is not clear if they preceded the headaches. PAST MEDICAL HISTORY: Notable for obesity; type 2 diabetes; hypertension; hyperlipidemia; left carotid stenting; sleep apnea, on CPAP; bipolar disorder; hospitalizations for depression; history of congestive heart failure; gastroesophageal reflux; appendectomy. MEDICATIONS: At home, consist of: 1. Depakote extended release of 1000 mg p.o. b.i.d. 2. Gabapentin 300 mg p.o. q.h.s. 3. Bupropion 100 mg p.o. b.i.d. 4. Fioricet 1 tablet every 6 hours as needed for headache. 5. Alprazolam 1 mg p.o. q.h.s. p.r.n. insomnia. 6. Aspirin 325 mg p.o. q. day. ALLERGIES: She is allergic to NITROFURANTOIN. REVIEW OF SYSTEMS: Notable for recent upper respiratory infection about a week ago. No recent fevers otherwise. No recent change in weight. No falls. No episodes of loss of consciousness. PHYSICAL EXAM: She is obese. Temperature 97.0 temporally, blood pressures 160/ 70, heart rate in 70s and regular. Heart is in a regular rate and rhythm without murmurs. Lungs are clear. I cannot feel carotid bruits and there are no bruits auscultated. Head is atraumatic. Oral mucosa is moist and atraumatic. Neurologically, pupils react equally from 2.5 to 2 mm. Funduscopic exam is poorly seen, but I can see sharp discs. Eye movements are full. Visual franco are full. Facial musculature is symmetric. Facial sensation is reported as decreased light touch on the left side. Sensation in the limbs is reported as decreased light touch in the left arm and leg. She has a mild spastic catch in the left leg. She has clumsy finger taps in the left hand. She is able to ambulate independently. Reflexes are diffusely hypoactive. She is a good historian with intact recent and remote memory. Language is fluent. LABORATORY DATA: Notable for a normal CBC today, sedimentation rate 17. Chemistry profile notable for a glucose of 131. Lactic acid was 2.3 and came down to 1.7. Rest of the chemistry profile was unremarkable. Valproic acid level today is 91. CBC is within normal limits. IMPRESSION: Probable migraine in a patient with very complex cerebrovascular disease. However, her symptoms resolved with Toradol and Reglan and she has no evidence of a new ischemic event nor hemorrhage on her imaging. I think at this point she could be discharged to follow up with Dr. Calderón as she said she has an appointment with him at the end of this week. I do not recommend any changes in her medications at this point in time. [id number]/[facility] #: [id number] [facility]ARA HOSPITALIvonne
== END 2017-08-14 18:55 | disposition home or self-care (01) ==
LOC: ED 09:45
DX: G43.909 Migraine, unspecified, not intractable, without status migrainosus (principal); N39.0 Urinary tract infection, site not specified; R42 Dizziness and giddiness; R51 Headache; Z87.891 Personal history of nicotine dependence
CPT/HCPCS: 36415; 70450; 70551; 80053; 80164; 81003; 81015; 83605; 85025; 85610; 85652; 86850; 86900; 86901; 87086; 96374; 96375; 99283; J0692; J1200; J1885; J2765

== ENCOUNTER 2017-09-12 17:41 | Emergency (ER) | payer MEDICARE, MEDICAID ==
[2017-09-12 19:31] LABS: Hematocrit 40 % (35-47); Hemoglobin 13.5 g/dl (12.0-16.0); Mean Corpuscular HGB Conc 34 g/dl (31-36); Mean Corpuscular Hemoglobin 29 pg (27-31); Mean Corpuscular Volume 86 fL (80-97); Mean Platelet Volume 9 um3 (7.4-10.4); Red Blood Count 4.61 10^6/ul (4.0-5.4); Red Cell Distribution Width 17 % (10.5-15); White Blood Count 8.9 10^3/ul (3.5-10.8)
[2017-09-12 19:45] LABS: Albumin 3.8 g/dL (3.2-5.2); Calcium 9.1 mg/dL (8.6-10.3); EGFR African American 126.6 (>60); EGFR Non-African American 98.5 (>60); Globulin 2.9 g/dL (2-4); Magnesium 1.9 mg/dL (1.9-2.7); Potassium 4.2 mmol/L (3.5-5.0); Total Bilirubin 0.3 mg/dL (0.2-1.0); Total Protein 6.7 g/dL (6.4-8.9)
[2017-09-12] MEDS ORDERED: NS 0.9% 1000 ML* 1,000 ML IV ONE (19:54)
[2017-09-12 20:12] LABS: Urine Bacteria Absent (Absent); Urine Bilirubin Negative (Negative); Urine Glucose Negative (Negative); Urine Nitrite Negative (Negative)
[2017-09-12] MEDS ORDERED: cefTRIAXone(*) 1 GM in NS 0.9% 50 ML* 50 ML IVPB ONE (20:19)
[2017-09-12] MEDS ORDERED: Divalproex ER TAB(*) 500 MG PO ONE (20:25)
[2017-09-12] MEDS ORDERED: Cephalexin CAP* 500 MG PO ONE (20:27)
[2017-09-12 20:43] VITALS: BP 126/76
--- NOTE | 2017-09-12 21:48 | ED ---
Lexi Michaels Nilda, scribed for Carlitos Macdonald MD on 09/12/17 at 1902 . Neurological HPI - HPI Summary HPI Summary: This patient is a 56 year old F presenting to [facility] accompanied by daughter with a chief complaint of 4 consecutive episodes of seizure/TIA that occurred a few hours ago. Pt states that she normally has these episodes once every other day followed by occasional weakness. During episodes she experiences headache, shaking in left side, weakness in left side, and impaired speech, though she is conscious throughout the episode. Daughter states pt experiences difficulty with word finding during episode. Since her brain surgeries (last surgery was January 02), pt states her condition has been worsening. She states she recently visited the neurosurgeon who told her that her episodes are more likely to be seizures than TIA. The patient rates the pain 8/10 in severity. Symptoms aggravated by nothing and alleviated by spontaneous resolution. Patient reports headache and colds symptoms. Patient denies recent abnormal stressors. PMHx includes Moyamoya disease, TIA, and bipolar disorder. Medications include Depakote. - History of Current Complaint Chief Complaint: EDNeurologicalDeficit Stated Complaint: HEADACHE Time Seen by Provider: 09/12/17 18:07 Hx Obtained From: Patient, Family/Reimbursement Representative - daughter Hx Last Menstrual Period: not since 2009 Onset/Duration: Sudden Onset, Started hours ago, Resolved Timing: Sudden Onset Number of Seizures: 4 - episode seizure/TIA per pt Headache Location: Diffuse (Right), Diffuse (Left) Pain Intensity: 8 Pain Scale Used: 0-10 Numeric Character: Weak - left sided (resolved), Impaired Speech - (resolved), Other: - headache, shaking in left side Number of Episodes: 4 Syncope Context: Loss of Consciousness: No Aggravating: Nothing Alleviating: Spontanious Resolution Associated Signs and Symptoms: Positive: Headache, Seizure - resolved, Impaired Speech - resolved - Additional Pertinent History Primary Care Physician: [id number] - Allergy/Home Medications Allergies/Adverse Reactions: Allergies Allergy/AdvReac Type Severity Reaction Status Date / Time Nitrofurantoin Allergy Severe Rash Verified 06/23/17 22:08 [From Macrobid] Clavulanic Acid AdvReac Intermediate Nausea And Verified 06/23/17 22:08 [From Augmentin] Vomiting Meperidine [From Demerol HCl] AdvReac Intermediate Headache Verified 06/23/17 22 :08 Morphine AdvReac Nausea Verified 06/23/17 22:08 PMH/Surg Hx/FS Hx/Imm Hx Endocrine/Hematology History: Reports: Hx Diabetes, Other Endocrine/ Hematological Disorders Denies: Hx Thyroid Disease, Hx Anemia Cardiovascular History: Reports: Hx Angina, Hx Angioplasty, Hx Coronary Artery Disease, Hx Hypercholesterolemia, Hx Hypertension, Other Cardiovascular Problems /Disorders - CAD, int/ext carotid stenosis Denies: Hx Aneurysm, Hx Auto Implanted Cardiovert Defib, Hx Cardiac Arrest, Hx Cardiomegaly, Hx Congenital Heart Disease, Hx Congestive Heart Failure, Hx Deep Vein Thrombosis, Hx Hypotension, Hx Myocardial Infarction, Hx Pacemaker/ICD , Hx Peripheral Vascular Disease, Hx Rheumatic Fever, Hx Syncope, Hx Valvular Heart Disease Respiratory History: Reports: Hx Asthma, Hx Chronic Bronchitis, Hx Chronic Obstructive Pulmonary Disease (COPD) - O2 at home, Hx Pneumonia, Hx Sleep Apnea - CPAP in room for use, Other Respiratory Problems/Disorders - PNEUMONIA IN 2001 Denies: Hx Cystic Fibrosis, Hx Lung Cancer, Hx Pleural Effusion, Hx Pulmonary Edema, Hx Pulmonary Embolism, Hx Seasonal Allergies GI History: Reports: Hx Gastroesophageal Reflux Disease, Other GI Disorders - "sphincter in stomach not working" Denies: Hx Cirrhosis, Hx Crohn's Disease, Hx Diverticulosis, Hx Gall Bladder Disease, Hx Gastrointestinal Bleed, Hx Hiatal Hernia, Hx Irritable Bowel, Hx Jaundice, Hx Obstructive Bowel, Hx Ileostomy, Hx Pyloric Stenosis, Hx Ulcer History: Reports: Hx Chronic Renal Failure, Hx Renal Disease, Other Problems/Disorders - chronic kidney disease Denies: Hx Dialysis Musculoskeletal History: Reports: Hx Back Problems, Hx Scoliosis Sensory History: Reports: Hx Contacts or Glasses, Hx Vision Problem Denies: Hx Hearing Aid Opthamlomology History: Reports: Hx Contacts or Glasses, Hx Vision Problem Neurological History: Reports: Hx Headaches, Hx Migraine, Hx Seizures, Hx Transient Ischemic Attacks (TIA), Other Neuro Impairments/Disorders - Hx of 2 TIA. Hx moyamoya disease. 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 Hx Chemotherapy: No Hx Radiation Therapy: No - Surgical History Surgery Procedure, Year, and Place: uterine ablation, appendectomy, 2 bladder cystoscopies, c-sections, endoderectomy 2004, stent and balloon LICA 2005 & 2006 ( [employer] (acquired by [employer]) SCIENTIFIC WALLSTENT - SAFE AT 1.5T AND 3T WITH EVERETTE 2.0 W/KG 15 MINS LIMITATION) , tubal ligation, arterial bypass in the brain Hx Anesthesia Reactions: No - Immunization History Date of Tetanus Vaccine: unk Date of Influenza Vaccine: 06/2017 Immunizations Up to Date: Yes Infectious Disease History: No Infectious Disease History: Denies: Hx Clostridium Difficile, Hx Hepatitis, Hx Human Immunodeficiency Virus (HIV), Hx of Known/Suspected MRSA, Hx Shingles, Hx Tuberculosis, Hx Known/ Suspected VRE, Hx Known/Suspected VRSA, History Other Infectious Disease, Traveled Outside the [place] in Last 30 Days - Family History Known Family History: Positive: Cardiac Disease, Other - bipolar disorder; alcohol abuse - Social History Alcohol Use: None Alcohol Amount: once/year Hx Substance Use: No Substance Use Type: Reports: None Hx Tobacco Use: Yes Smoking Status (MU): Former Smoker Type: Cigarettes Amount Used/How Often: quit in 2004 Have You Smoked in the Last Year: No Review of Systems Negative: Fever, Chills Negative: Erythema Positive: Nasal Discharge - "colds symptoms". Negative: Sore Throat Negative: Chest Pain Negative: Shortness Of Breath, Cough Negative: Abdominal Pain, Nausea Negative: dysuria, hematuria Negative: Myalgia, Edema Negative: Rash Neurological: Other - 4 episodes of seizure/TIA today (currently resolved), impaired speech (resolved), weakness on left side (resolved), shaking left side (resolved); negative dizziness Positive: Headache All Other Systems Reviewed And Are Negative: Yes Physical Exam - Summary Physical Exam Summary: Constitutional: Well-developed, Well-nourished, Alert. (-) Distressed Skin: Warm, Dry HENT: Normocephalic; Atraumatic Eyes: Conjunctiva normal Dental: Edentulous Neck: Musculoskeletal ROM normal neck. (-) JVD, (-) Stridor, (-) Tracheal deviation Cardio: Rhythm regular, rate normal, Heart sounds normal; Intact distal pulses; The pedal pulses are 2+ and symmetric. Radial pulses are 2+ and symmetric. (-) Murmur Pulmonary/Chest wall: Effort normal. (-) Respiratory distress, (-) Wheezes, (-) Rales Abd: Soft. (-) Tenderness, (-) Distension, (-) Guarding, (-) Rebound Musculoskeletal: (-) Edema Lymph: (-) Cervical adenopathy Neuro: Alert, Oriented x3, Strength normal, Cranial nerves II-XII are grossly intact. (-) Dysmetria, (-) Nystagmus, (-) Ataxia by finger to nose testing, (-) Sensory deficit. Psych: Mood and affect Normal Triage Information Reviewed: Yes Vital Signs On Initial Exam: Initial Vitals Temp Pulse Resp BP Pulse Ox 97.9 F 80 20 159/61 94 09/12/17 18:04 09/12/17 18:04 09/12/17 18:04 09/12/17 18:04 09/12/17 18:04 Vital Signs Reviewed: Yes - [place] Coma Scale Coma Scale Total: 15 Diagnostics - Vital Signs Vital Signs Temp Pulse Resp BP Pulse Ox 09/12/17 18:04 97.9 F 80 20 159/61 94 - Laboratory Result Diagrams: 09/12/17 19:10 09/12/17 19:10 Lab Statement: Any lab studies that have been ordered have been reviewed, and results considered in the medical decision making process. - EKG 192 Cardiac Rate: NL EKG Rhythm: Sinus Rhythm - 69 bpm EKG Interpretation: no STEMI Course/Dx - Course Assessment/Plan: This patient is a 56 year old F presenting to [facility] accompanied by daughter with a chief complaint of 4 consecutive episodes of seizure/TIA that occurred a few hours ago. Pt states that she normally has these episodes once every other day followed by occasional weakness. During episodes she experiences headache, shaking in left side, weakness in left side, and impaired speech, though she is conscious throughout the episode. Daughter states pt experiences difficulty with word finding during episode. Since her brain surgeries (last surgery was January 02), pt states her condition has been worsening. She states she recently visited the neurosurgeon who told her that her episodes are more likely to be seizures than TIA. The patient rates the pain 8/10 in severity. Symptoms aggravated by nothing and alleviated by spontaneous resolution. Patient reports headache and colds symptoms. Patient denies recent abnormal stressors. PMHx includes Moyamoya disease, TIA, and bipolar disorder. Medications include Depakote. Blood work is without significant abnormalities except lactic acid (2.5). UA reveals WBC (3+), Leukocyte Esterase (2+), Ketones (1+), Urobilinogen (Positive). An EKG reveals 69 bpm, NSR, no STEMI. 2022 Dr. Hylton (neuro) recommends to treat UTI and give additional 500 mg of Depakote tonight. Other than that does not recommend any other medicaiton changes today. No indication for admission. In the ED course, the patient was given Keflex, IV fluid, ceftriaxone, divalproex. Pt is stable and will be D/C with a Dx of UTI and Breakthrough seizure. She was sent a prescription for Keflex and advised to follow up with PCP. Pt understands and is agreeable with this plan. - Diagnoses Provider Diagnoses: UTI (urinary tract infection), Breakthrough seizure - Physician Notifications Discussed Care Of Patient With: Kathy Hylton - Neuro Time Discussed With Above Provider: 20:23 Instructed by Provider To: Other - Recommends to treat UTI and give additional 500 mg of Depakote tonight. Other than that does not recommend any other medicaiton changes today. No indication for admission. Discharge - Discharge Plan Condition: Stable Disposition: HOME Prescriptions: Cephalexin CAP* [Keflex CAP*] 500 mg PO QID #40 cap Patient Education Materials: Urinary Tract Infection in Women (ED), Recurrent Seizures in Adults (ED) Referrals: Ang Zelaya MD [Primary Care Provider] - 3 Days Additional Instructions: RETURN TO THE EMERGENCY DEPARTMENT FOR CHANGING OR WORSENING SYMPTOMS. The documentation as recorded by the Lexi españa Nilda accurately reflects the service I personally performed and the decisions made by , Carlitos Macdonald MD.
== END 2017-09-12 20:41 | disposition home or self-care (01) ==
LOC: ED 17:41
DX: N39.0 Urinary tract infection, site not specified (principal); R56.9 Unspecified convulsions; R51 Headache; E11.9 Type 2 diabetes mellitus without complications; Z87.891 Personal history of nicotine dependence; J02.9 Acute pharyngitis, unspecified
CPT/HCPCS: 36415; 80053; 80164; 81003; 81015; 83605; 83735; 85025; 85610; 87077; 87086; 87186; 93005; 96365; 99282; A9270-GY

== ENCOUNTER 2017-09-21 10:03 | Emergency (ER) | payer MEDICARE, MEDICAID ==
[2017-09-21] MEDS ORDERED: NS 0.9% 1000 ML* 1,000 ML IV ONE (10:23)
[2017-09-21 10:47] LABS: Hematocrit 42 % (35-47); Hemoglobin 14.2 g/dl (12.0-16.0); Mean Corpuscular HGB Conc 34 g/dl (31-36); Mean Corpuscular Hemoglobin 29 pg (27-31); Mean Corpuscular Volume 85 fL (80-97); Mean Platelet Volume 8 um3 (7.4-10.4); Red Blood Count 4.87 10^6/ul (4.0-5.4); Red Cell Distribution Width 17 % (10.5-15); White Blood Count 7.8 10^3/ul (3.5-10.8)
[2017-09-21 11:02] LABS: BUN/Creatinine Ratio 12.7 (8-20); EGFR African American 126.6 (>60); EGFR Non-African American 98.5 (>60); Globulin 3.1 g/dL (2-4); Potassium 4.2 mmol/L (3.5-5.0); Total Bilirubin 0.5 mg/dL (0.2-1.0); Total Protein 7.1 g/dL (6.4-8.9)
[2017-09-21] MEDS ORDERED: cefTRIAXone(*) 1 GM in NS 0.9% 50 ML* 50 ML IVPB ONE (11:41)
--- NOTE | 2017-09-21 12:10 | ED ---
Sushil Michaels Gabriel, scribed for Doug Santos MD on 09/21/17 at 1021 . 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 Patient was at the lab getting blood drawn when symptoms began and she came to the ED. Her care give reports that she has been slow to respond recently and has had a KHANNA. The patient rates the pain 4/10 in severity. Patient denies CP and SOB. 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 She has a history of seizures and was recently diagnosed with a UTI and is on an Abx and Depeco. The burning on urination has resolved and states she does not have any LOC with her seizures just body shaking. She has DM, hasnt had breakfast, and has blood glucose of 136 currently. - History Of Current Complaint Chief Complaint: EDDizziness Time Seen by Provider: 09/21/17 10:12 Hx Obtained From: Patient Onset/Duration: Lasting Hours, Still Present Timing: Constant Severity Currently: Mild Severity Initially: Mild - Allergies/Home Medications Allergies/Adverse Reactions: Allergies Allergy/AdvReac Type Severity Reaction Status Date / Time Nitrofurantoin Allergy Severe Rash Verified 06/23/17 22:08 [From Macrobid] Clavulanic Acid AdvReac Intermediate Nausea And Verified 06/23/17 22:08 [From Augmentin] Vomiting Meperidine [From Demerol HCl] AdvReac Intermediate Headache Verified 06/23/17 22 :08 Morphine AdvReac Nausea Verified 06/23/17 22:08 PMH/Surg Hx/FS Hx/Imm Hx Previously Healthy: No Endocrine/Hematology History: Reports: Hx Diabetes, Other Endocrine/ Hematological Disorders Denies: Hx Thyroid Disease, Hx Anemia Cardiovascular History: Reports: Hx Angina, Hx Angioplasty, Hx Coronary Artery Disease, Hx Hypercholesterolemia, Hx Hypertension, Other Cardiovascular Problems /Disorders - CAD, int/ext carotid stenosis Denies: Hx Aneurysm, Hx Auto Implanted Cardiovert Defib, Hx Cardiac Arrest, Hx Cardiomegaly, Hx Congenital Heart Disease, Hx Congestive Heart Failure, Hx Deep Vein Thrombosis, Hx Hypotension, Hx Myocardial Infarction, Hx Pacemaker/ICD , Hx Peripheral Vascular Disease, Hx Rheumatic Fever, Hx Syncope, Hx Valvular Heart Disease Respiratory History: Reports: Hx Asthma, Hx Chronic Bronchitis, Hx Chronic Obstructive Pulmonary Disease (COPD) - O2 at home, Hx Pneumonia, Hx Sleep Apnea - CPAP in room for use, Other Respiratory Problems/Disorders - PNEUMONIA IN 2001 Denies: Hx Cystic Fibrosis, Hx Lung Cancer, Hx Pleural Effusion, Hx Pulmonary Edema, Hx Pulmonary Embolism, Hx Seasonal Allergies GI History: Reports: Hx Gastroesophageal Reflux Disease, Other GI Disorders - "sphincter in stomach not working" Denies: Hx Cirrhosis, Hx Crohn's Disease, Hx Diverticulosis, Hx Gall Bladder Disease, Hx Gastrointestinal Bleed, Hx Hiatal Hernia, Hx Irritable Bowel, Hx Jaundice, Hx Obstructive Bowel, Hx Ileostomy, Hx Pyloric Stenosis, Hx Ulcer History: Reports: Hx Chronic Renal Failure, Hx Renal Disease, Other Problems/Disorders - chronic kidney disease Denies: Hx Dialysis Musculoskeletal History: Reports: Hx Back Problems, Hx Scoliosis Sensory History: Reports: Hx Contacts or Glasses, Hx Vision Problem Denies: Hx Hearing Aid Opthamlomology History: Reports: Hx Contacts or Glasses, Hx Vision Problem Neurological History: Reports: Hx Headaches, Hx Migraine, Hx Seizures, Hx Transient Ischemic Attacks (TIA), Other Neuro Impairments/Disorders - Hx of 2 TIA. Hx moyamoya disease. 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 Hx Chemotherapy: No Hx Radiation Therapy: No - Surgical History Surgery Procedure, Year, and Place: uterine ablation, appendectomy, 2 bladder cystoscopies, c-sections, endoderectomy 2004, stent and balloon LICA 2005 & 2007 ( [employer] SCIENTIFIC WALLSTENT - SAFE AT 1.5T AND 3T WITH EVERETTE 2.0 W/KG 15 MINS LIMITATION) , tubal ligation, arterial bypass in the brain Hx Anesthesia Reactions: No - Immunization History Date of Tetanus Vaccine: unk Date of Influenza Vaccine: 06/2017 Infectious Disease History: No Infectious Disease History: Denies: Hx Clostridium Difficile, Hx Hepatitis, Hx Human Immunodeficiency Virus (HIV), Hx of Known/Suspected MRSA, Hx Shingles, Hx Tuberculosis, Hx Known/ Suspected VRE, Hx Known/Suspected VRSA, History Other Infectious Disease, Traveled Outside the [place] in Last 30 Days - Family History Known Family History: Positive: Cardiac Disease, Other - bipolar disorder; alcohol abuse - Social History Alcohol Use: None Alcohol Amount: once/year Hx Substance Use: No Substance Use Type: Reports: None Hx Tobacco Use: Yes Smoking Status (MU): Former Smoker Type: Cigarettes Amount Used/How Often: quit in 2004 Have You Smoked in the Last Year: No Review of Systems Negative: Chest Pain Negative: Shortness Of Breath Neurological: Other - light headedness and slow to respond Positive: Headache All Other Systems Reviewed And Are Negative: Yes Physical Exam - Summary Physical Exam Summary: Appearance: Well appearing, no pain distress Skin: warm, dry, reflects adequate perfusion, there is a scar on the left side of her neck Head/face: normal Eyes: EOMI, [place] ENT: normal Neck: supple, non-tender Respiratory: CTA, breath sounds present Cardiovascular: RRR, pulses symmetrical Abdomen: non-tender, soft Bowel: present Musculoskeletal: normal, strength/ROM intact, no edema Neuro: normal, sensory motor intact, A&Ox Triage Information Reviewed: Yes Vital Signs On Initial Exam: Initial Vitals Temp Pulse Resp BP Pulse Ox 98.2 F 83 22 161/67 92 09/21/17 10:04 09/21/17 10:04 09/21/17 10:04 09/21/17 10:04 09/21/17 10:04 Vital Signs Reviewed: Yes Diagnostics - Vital Signs Vital Signs Temp Pulse Resp BP Pulse Ox 09/21/17 10:04 98.2 F 83 22 161/67 92 - Laboratory Lab Results: Lab Results 09/21/17 09/21/17 09/21/17 Range/Units 10:30 10:30 10:30 WBC 7.8 (3.5-10.8) 10^3/ul RBC 4.87 (4.0-5.4) 10^6/ul Hgb 14.2 (12.0-16.0) g/dl Hct 42 (35-47) % MCV 85 (80-97) fL MCH 29 (27-31) pg MCHC 34 (31-36) g/dl RDW 17 H (10.5-15) % Plt Count 185 (150-450) 10^3/ul MPV 8 (7.4-10.4) um3 Neut % (Auto) 52.7 (38-83) % Lymph % (Auto) 37.3 (25-47) % [place] % (Auto) 7.8 (1-9) % Eos % (Auto) 1.4 (0-6) % Baso % (Auto) 0.8 (0-2) % Absolute Neuts (auto) 4.1 (1.5-7.7) 10^3/ul Absolute Lymphs (auto) 2.9 (1.0-4.8) 10^3/ul Absolute Monos (auto) 0.6 (0-0.8) 10^3/ul Absolute Eos (auto) 0.1 (0-0.6) 10^3/ul Absolute Basos (auto) 0.1 (0-0.2) 10^3/ul Absolute Nucleated RBC 0.01 10^3/ul Nucleated RBC % 0.1 Sodium 139 (133-145) mmol/L Potassium 4.2 (3.5-5.0) mmol/L Chloride 103 (101-111) mmol/L Carbon Dioxide 28 (22-32) mmol/L Anion Gap 8 (2-11) mmol/L BUN 8 (6-24) mg/dL Creatinine 0.63 (0.51-0.95) mg/dL Est GFR ( Amer) 126.6 (>60) Est GFR (Non-Af Amer) 98.5 (>60) BUN/Creatinine Ratio 12.7 (8-20) Glucose 136 H (70-100) mg/dL Lactic Acid 2.6 H* (0.5-2.0) mmol/L Calcium 9.0 (8.6-10.3) mg/dL Total Bilirubin 0.50 (0.2-1.0) mg/dL AST 12 L (13-39) U/L ALT 13 (7-52) U/L Alkaline Phosphatase 53 (34-104) U/L Troponin I Pending Total Protein 7.1 (6.4-8.9) g/dL Albumin 4.0 (3.2-5.2) g/dL Globulin 3.1 (2-4) g/dL Albumin/Globulin Ratio 1.3 (1-3) Valproic Acid (50-100) mcg/mL 09/21/17 Range/Units 10:30 WBC (3.5-10.8) 10^3/ul RBC (4.0-5.4) 10^6/ul Hgb (12.0-16.0) g/dl Hct (35-47) % MCV (80-97) fL MCH (27-31) pg MCHC (31-36) g/dl RDW (10.5-15) % Plt Count (150-450) 10^3/ul MPV (7.4-10.4) um3 Neut % (Auto) (38-83) % Lymph % (Auto) (25-47) % [place] % (Auto) (1-9) % Eos % (Auto) (0-6) % Baso % (Auto) (0-2) % Absolute Neuts (auto) (1.5-7.7) 10^3/ul Absolute Lymphs (auto) (1.0-4.8) 10^3/ul Absolute Monos (auto) (0-0.8) 10^3/ul Absolute Eos (auto) (0-0.6) 10^3/ul Absolute Basos (auto) (0-0.2) 10^3/ul Absolute Nucleated RBC 10^3/ul Nucleated RBC % Sodium (133-145) mmol/L Potassium (3.5-5.0) mmol/L Chloride (101-111) mmol/L Carbon Dioxide (22-32) mmol/L Anion Gap (2-11) mmol/L BUN (6-24) mg/dL Creatinine (0.51-0.95) mg/dL Est GFR ( Amer) (>60) Est GFR (Non-Af Amer) (>60) BUN/Creatinine Ratio (8-20) Glucose (70-100) mg/dL Lactic Acid (0.5-2.0) mmol/L Calcium (8.6-10.3) mg/dL Total Bilirubin (0.2-1.0) mg/dL AST (13-39) U/L ALT (7-52) U/L Alkaline Phosphatase (34-104) U/L Troponin I Total Protein (6.4-8.9) g/dL Albumin (3.2-5.2) g/dL Globulin (2-4) g/dL Albumin/Globulin Ratio (1-3) Valproic Acid 69.0 (50-100) mcg/mL Result Diagrams: 09/21/17 10:30 09/21/17 10:30 Lab Statement: Any lab studies that have been ordered have been reviewed, and results considered in the medical decision making process. - EKG 11:06 Cardiac Rate: NL EKG Rhythm: Sinus Rhythm - at [address] Segment: Normal EKG Interpretation: LAD, low voltage Re-Evaluation - Re-Evaluation First Eval Change: Improved - now resolved Complex Multi-Symp Course/Dx Course Of Treatment: pt with multiple comorbidities who got increased lightheadedness after blood draw just [employer]. No syncope. No other complaint here. 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 Has UTI, on tx. Gave dose of IV abx and IV fluids and feeling well. D/C home with health aide. - Diagnoses Provider Diagnoses: Light headedness, UTI (urinary tract infection) Discharge - Discharge Plan Condition: Good Disposition: HOME Patient Education Materials: Lightheadedness (ED) Referrals: Ang Zelaya MD [Primary Care Provider] - Additional Instructions: Drink plenty of fluids. Monitor blood sugars closely. Return with fever, new symptoms, worse or other concerns. The documentation as recorded by the Sushil españa Gabriel accurately reflects the service I personally performed and the decisions made by me, Doug Santos MD.
[2017-09-21 12:29] VITALS: BP 148/70
== END 2017-09-21 12:28 | disposition home or self-care (01) ==
LOC: ED 10:03
DX: R42 Dizziness and giddiness (principal); N39.0 Urinary tract infection, site not specified; E11.9 Type 2 diabetes mellitus without complications; K21.9 Gastro-esophageal reflux disease without esophagitis; Z87.891 Personal history of nicotine dependence
CPT/HCPCS: 36415; 80053; 80164; 83605; 84484; 85025; 93005; 96360; 96372; 99283; J0696

== ENCOUNTER 2017-09-27 18:18 | Emergency (ER) | payer MEDICARE, MEDICAID ==
[2017-09-27] MEDS ORDERED: NS 0.9% 1000 ML* 1,000 ML IV ONE ×2 (19:09→19:10)
[2017-09-27 19:37] LABS: ABS Basophils 0.1 10^3/ul (0-0.2); ABS Eosinophils 0.2 10^3/ul (0-0.6); ABS Lymphocytes 3.4 10^3/ul (1.0-4.8); ABS Monocytes 0.8 10^3/ul (0-0.8); ABS Neutrophils 5.7 10^3/ul (1.5-7.7); ABS Nucleated RBC 0.07 10^3/ul; Eosinophil % 1.7 % (0-6); Hematocrit 39 % (35-47); Hemoglobin 13.3 g/dl (12.0-16.0); Lymphocyte % 33.2 % (25-47); Mean Corpuscular HGB Conc 35 g/dl (31-36); Mean Corpuscular Hemoglobin 29 pg (27-31); Mean Corpuscular Volume 85 fL (80-97); Mean Platelet Volume 9 um3 (7.4-10.4); Nucleated Red Blood Cells % 0.6; Platelet Count 187 10^3/ul (150-450); Red Blood Count 4.57 10^6/ul (4.0-5.4); Red Cell Distribution Width 17 % (10.5-15); White Blood Count 10.2 10^3/ul (3.5-10.8)
--- NOTE | 2017-09-27 19:44 | RAD ---
INDICATION: Weakness. COMPARISON: Comparison is made with a prior chest x-ray study from January 06, 2017. TECHNIQUE: A portable view of the chest was obtained. FINDINGS: Cardiac and mediastinal contours appear to be within normal limits. The lungs are underinflated and clear. No pleural effusion is seen. IMPRESSION: NO EVIDENCE FOR ACUTE DISEASE.
--- NOTE | 2017-09-27 20:03 | RAD ---
INDICATION: Fall, injury general weakness and tremor. COMPARISON: Comparison is made with a prior CT of the brain from August 14, 2017. TECHNIQUE: Contiguous axial sections of the brain were obtained from the skull base to the vertex without contrast. FINDINGS: The ventricles, cisterns and sulci are enlarged consistent with diffuse atrophy. No significant focal abnormality or mass effect is seen. There is no evidence for hemorrhage. The patient is status post bilateral craniotomies. There is a mucous retention cyst or polyp within the sphenoid sinus. The visualized portion of the paranasal sinuses and mastoid air cells otherwise appear clear. IMPRESSION: NO EVIDENCE FOR ACUTE INTRACRANIAL ABNORMALITY.
[2017-09-27 20:08] LABS: Monocytes % 8 % (0-13)
[2017-09-27 20:58] LABS: Urine Appearance Clear; Urine Blood Negative (Negative); Urine Color Yellow; Urine Ketones Trace (Negative); Urine Protein Negative (Negative); Urine Specific Gravity 1.025 (1.010-1.030); Urine Urobilinogen Negative (Negative)
[2017-09-27 21:27] VITALS: BP 131/50
--- NOTE | 2017-09-27 21:29 | ED ---
Sushil Michaels Gabriel, scribed for Doug Santos MD on 09/27/17 at 1909 . Adult Trauma - HPI Summary HPI Summary: This patient is a 56 year old F BIBA to [facility] accompanied by family with a chief complaint of weakness since 2 days ago. The patient rates the pain 8/10 in severity. Patient reports increased urinary frequency, dysuria, body tremors , and cough. Patient denies fever, abd pain, and diarrhea. Patient reports she had a fall today at 0400 and hit her head. - History of Current Complaint Chief Complaint: EDGeneral Stated Complaint: GENERAL ILLNESS Time Seen by Provider: 09/27/17 19:01 Hx Obtained From: Patient Hx Last Menstrual Period: not since 2009 Mechanism of Injury: Fall Ambulatory at the Scene: Yes Loss of Consciousness: no loss of consciousness Onset/Duration: Still Present Onset of Pain: Immediate Onset Severity: Moderate Current Severity: Moderate Pain Intensity: 8 Pain Scale Used: 0-10 Numeric Alleviating Factor(s): Nothing Associated Signs & Symptoms: Positive: Negative - fever, abd pain, and diarrhea , Other: - reports increased urinary frequency, dysuria, body tremors, and cough - Additional Pertinent History Primary Care Physician: [id number] - Allergy/Home Medications Allergies/Adverse Reactions: Allergies Allergy/AdvReac Type Severity Reaction Status Date / Time Nitrofurantoin Allergy Severe Rash Verified 06/23/17 22:08 [From Macrobid] Clavulanic Acid AdvReac Intermediate Nausea And Verified 06/23/17 22:08 [From Augmentin] Vomiting Meperidine [From Demerol HCl] AdvReac Intermediate Headache Verified 06/23/17 22 :08 Morphine AdvReac Nausea Verified 06/23/17 22:08 PMH/Surg Hx/FS Hx/Imm Hx Previously Healthy: No Endocrine/Hematology History: Reports: Hx Diabetes, Other Endocrine/ Hematological Disorders Denies: Hx Thyroid Disease, Hx Anemia Cardiovascular History: Reports: Hx Angina, Hx Angioplasty, Hx Coronary Artery Disease, Hx Hypercholesterolemia, Hx Hypertension, Other Cardiovascular Problems /Disorders - CAD, int/ext carotid stenosis Denies: Hx Aneurysm, Hx Auto Implanted Cardiovert Defib, Hx Cardiac Arrest, Hx Cardiomegaly, Hx Congenital Heart Disease, Hx Congestive Heart Failure, Hx Deep Vein Thrombosis, Hx Hypotension, Hx Myocardial Infarction, Hx Pacemaker/ICD , Hx Peripheral Vascular Disease, Hx Rheumatic Fever, Hx Syncope, Hx Valvular Heart Disease Respiratory History: Reports: Hx Asthma, Hx Chronic Bronchitis, Hx Chronic Obstructive Pulmonary Disease (COPD) - O2 at home, Hx Pneumonia, Hx Sleep Apnea - CPAP in room for use, Other Respiratory Problems/Disorders - PNEUMONIA IN 2001 Denies: Hx Cystic Fibrosis, Hx Lung Cancer, Hx Pleural Effusion, Hx Pulmonary Edema, Hx Pulmonary Embolism, Hx Seasonal Allergies GI History: Reports: Hx Gastroesophageal Reflux Disease, Other GI Disorders - "sphincter in stomach not working" Denies: Hx Cirrhosis, Hx Crohn's Disease, Hx Diverticulosis, Hx Gall Bladder Disease, Hx Gastrointestinal Bleed, Hx Hiatal Hernia, Hx Irritable Bowel, Hx Jaundice, Hx Obstructive Bowel, Hx Ileostomy, Hx Pyloric Stenosis, Hx Ulcer History: Reports: Hx Chronic Renal Failure, Hx Renal Disease, Other Problems/Disorders - chronic kidney disease Denies: Hx Dialysis Musculoskeletal History: Reports: Hx Back Problems, Hx Scoliosis Sensory History: Reports: Hx Contacts or Glasses, Hx Vision Problem Denies: Hx Hearing Aid Opthamlomology History: Reports: Hx Contacts or Glasses, Hx Vision Problem Neurological History: Reports: Hx Headaches, Hx Migraine, Hx Seizures, Hx Transient Ischemic Attacks (TIA), Other Neuro Impairments/Disorders - Hx of 2 TIA. Hx moyamoya disease. 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 Hx Chemotherapy: No Hx Radiation Therapy: No - Surgical History Surgery Procedure, Year, and Place: uterine ablation, appendectomy, 2 bladder cystoscopies, c-sections, endoderectomy 2004, stent and balloon LICA 2005 & 2006 ( [place] [employer] [place]ALL[place] - SAFE AT 1.5T AND 3T WITH EVERETTE 2.0 W/KG 15 MINS LIMITATION) , tubal ligation, arterial bypass in the brain Hx Anesthesia Reactions: No - Immunization History Date of Tetanus Vaccine: unk Date of Influenza Vaccine: 06/2017 Infectious Disease History: No Infectious Disease History: Denies: Hx Clostridium Difficile, Hx Hepatitis, Hx Human Immunodeficiency Virus (HIV), Hx of Known/Suspected MRSA, Hx Shingles, Hx Tuberculosis, Hx Known/ Suspected VRE, Hx Known/Suspected VRSA, History Other Infectious Disease, Traveled Outside the [place] in Last 30 Days - Family History Known Family History: Positive: Cardiac Disease, Other - bipolar disorder; alcohol abuse - Social History Alcohol Use: None Alcohol Amount: once/year Hx Substance Use: No Substance Use Type: Reports: None Hx Tobacco Use: Yes Smoking Status (MU): Former Smoker Type: Cigarettes Amount Used/How Often: quit in 2004 Have You Smoked in the Last Year: No Review of Systems Positive: Other - tremors . Negative: Fever Positive: Cough Negative: Abdominal Pain, Diarrhea Positive: dysuria, frequency Positive: Weakness All Other Systems Reviewed And Are Negative: Yes Physical Exam - Summary Physical Exam Summary: Appearance: Well appearing, no pain distress Skin: warm, dry, reflects adequate perfusion Head/face: normal Eyes: EOMI, [place] ENT: normal Neck: supple, non-tender Respiratory: CTA, breath sounds present Cardiovascular: RRR, pulses symmetrical Abdomen: non-tender, soft Bowel: present Musculoskeletal: normal, strength/ROM intact Neuro: normal, sensory motor intact, A&Ox3, speaks slowly no dysarthria, no focal deficits, no tremors Triage Information Reviewed: Yes Vital Signs On Initial Exam: Initial Vitals Temp Pulse Resp BP Pulse Ox 97.2 F 75 20 120/50 94 09/27/17 18:39 09/27/17 18:39 09/27/17 18:39 09/27/17 18:39 09/27/17 18:39 Vital Signs Reviewed: Yes Diagnostics - Vital Signs Vital Signs Temp Pulse Resp BP Pulse Ox 09/27/17 18:39 97.2 F 75 20 120/50 94 - Laboratory Lab Results: Lab Results 09/27/17 09/27/17 09/27/17 Range/Units 19:20 19:20 19:20 WBC 10.2 (3.5-10.8) 10^3/ul RBC 4.57 (4.0-5.4) 10^6/ul Hgb 13.3 (12.0-16.0) g/dl Hct 39 (35-47) % MCV 85 (80-97) fL MCH 29 (27-31) pg MCHC 35 (31-36) g/dl RDW 17 H (10.5-15) % Plt Count 187 (150-450) 10^3/ul MPV 9 (7.4-10.4) um3 Neut % (Auto) 56.0 (38-83) % Lymph % (Auto) 33.2 (25-47) % Major % (Auto) 8.2 (1-9) % Eos % (Auto) 1.7 (0-6) % Baso % (Auto) 0.9 (0-2) % Absolute Neuts (auto) 5.7 (1.5-7.7) 10^3/ul Absolute Lymphs (auto) 3.4 (1.0-4.8) 10^3/ul Absolute Monos (auto) 0.8 (0-0.8) 10^3/ul Absolute Eos (auto) 0.2 (0-0.6) 10^3/ul Absolute Basos (auto) 0.1 (0-0.2) 10^3/ul Absolute Nucleated RBC 0.07 10^3/ul Neutrophils % 50 (38-83) % Lymphocytes % 31 (25-47) % Reactive Lymphs % 10 H (0-6) % Monocytes % 8 (0-13) % Eosinophils % 1 (0-6) % Nucleated RBC % 0.6 Normal RBC Morphology Normal (Normal) Hem Pathologist Commnt Pending Sodium 138 (133-145) mmol/L Potassium 4.3 (3.5-5.0) mmol/L Chloride 102 (101-111) mmol/L Carbon Dioxide 28 (22-32) mmol/L Anion Gap 8 (2-11) mmol/L BUN 11 (6-24) mg/dL Creatinine 0.65 (0.51-0.95) mg/dL Est GFR ( Amer) 122.2 (>60) Est GFR (Non-Af Amer) 95.0 (>60) BUN/Creatinine Ratio 16.9 (8-20) Glucose 122 H (70-100) mg/dL Lactic Acid 2.1 H* (0.5-2.0) mmol/L Calcium 9.2 (8.6-10.3) mg/dL Phosphorus 3.6 (2.5-5.0) mg/dL Magnesium 1.8 L (1.9-2.7) mg/dL Total Bilirubin 0.50 (0.2-1.0) mg/dL AST 10 L (13-39) U/L ALT 14 (7-52) U/L Alkaline Phosphatase 51 (34-104) U/L Total Creatine Kinase 63 (10-223) U/L Total Protein 6.8 (6.4-8.9) g/dL Albumin 3.8 (3.2-5.2) g/dL Globulin 3.0 (2-4) g/dL Albumin/Globulin Ratio 1.3 (1-3) TSH 1.67 (0.34-5.60) mcIU/mL Urine Color Urine Appearance Urine pH (5-9) Ur Specific [place] (1.010-1.030) Urine Protein (Negative) Urine Ketones (Negative) Urine Blood (Negative) Urine Nitrate (Negative) Urine Bilirubin (Negative) Urine Urobilinogen (Negative) Ur Leukocyte Esterase (Negative) Urine Glucose (Negative) Urine Ascorbic Acid (Negative) 09/27/17 Range/Units 20:13 WBC (3.5-10.8) 10^3/ul RBC (4.0-5.4) 10^6/ul Hgb (12.0-16.0) g/dl Hct (35-47) % MCV (80-97) fL MCH (27-31) pg MCHC (31-36) g/dl RDW (10.5-15) % Plt Count (150-450) 10^3/ul MPV (7.4-10.4) um3 Neut % (Auto) (38-83) % Lymph % (Auto) (25-47) % Major % (Auto) (1-9) % Eos % (Auto) (0-6) % Baso % (Auto) (0-2) % Absolute Neuts (auto) (1.5-7.7) 10^3/ul Absolute Lymphs (auto) (1.0-4.8) 10^3/ul Absolute Monos (auto) (0-0.8) 10^3/ul Absolute Eos (auto) (0-0.6) 10^3/ul Absolute Basos (auto) (0-0.2) 10^3/ul Absolute Nucleated RBC 10^3/ul Neutrophils % (38-83) % Lymphocytes % (25-47) % Reactive Lymphs % (0-6) % Monocytes % (0-13) % Eosinophils % (0-6) % Nucleated RBC % Normal RBC Morphology (Normal) Hem Pathologist Commnt Sodium (133-145) mmol/L Potassium (3.5-5.0) mmol/L Chloride (101-111) mmol/L Carbon Dioxide (22-32) mmol/L Anion Gap (2-11) mmol/L BUN (6-24) mg/dL Creatinine (0.51-0.95) mg/dL Est GFR ( Amer) (>60) Est GFR (Non-Af Amer) (>60) BUN/Creatinine Ratio (8-20) Glucose (70-100) mg/dL Lactic Acid (0.5-2.0) mmol/L Calcium (8.6-10.3) mg/dL Phosphorus (2.5-5.0) mg/dL Magnesium (1.9-2.7) mg/dL Total Bilirubin (0.2-1.0) mg/dL AST (13-39) U/L ALT (7-52) U/L Alkaline Phosphatase (34-104) U/L Total Creatine Kinase (10-223) U/L Total Protein (6.4-8.9) g/dL Albumin (3.2-5.2) g/dL Globulin (2-4) g/dL Albumin/Globulin Ratio (1-3) TSH (0.34-5.60) mcIU/mL Urine Color Yellow Urine Appearance Clear Urine pH 5.0 (5-9) Ur Specific [place] 1.025 (1.010-1.030) Urine Protein Negative (Negative) Urine Ketones Trace H (Negative) Urine Blood Negative (Negative) Urine Nitrate Negative (Negative) Urine Bilirubin Negative (Negative) Urine Urobilinogen Negative (Negative) Ur Leukocyte Esterase Negative (Negative) Urine Glucose Negative (Negative) Urine Ascorbic Acid * H (Negative) Result Diagrams: 09/27/17 19:20 09/27/17 19:20 Lab Statement: Any lab studies that have been ordered have been reviewed, and results considered in the medical decision making process. - Radiology CXR Radiology Interpretation Completed By: Radiologist - NO EVIDENCE FOR ACUTE DISEASE. ED physician has reviewed this radiology report. - CT CT brain CT Interpretation Completed By: Radiologist - NO EVIDENCE FOR ACUTE INTRACRANIAL ABNORMALITY. ED physician has reviewed this radiology report. - EKG 191 Cardiac Rate: NL EKG Rhythm: Sinus Rhythm - ay [address] Segment: Normal EKG Interpretation: normal axis, incomplete RBBB, low voltagre Re-Evaluation - Re-Evaluation First Eval Re-Evaluation Time: 21:09 Change: Improved - Patient has improved and would like to be discharged. Adult Trauma Course/Dx - Course Course Of Treatment: Pt with chronic comorbidity and weakness. No evidence of acute worsening. Pt has aide most days but not today. She feels she needs more resources so I have consulted social work therapist to coordinate with her ongoing care through [facility]. No UTI, pneumonia or new injury found. Given IV fluids, etc. I've suggested that if she continues to falter she may need some degree of longterm, perhaps in a rehab or SNF. She does not want to go that route now and wishes to be discharged. - Diagnoses Provider Diagnoses: Generalized weakness, Accidental fall, chronic weakness, Bipolar disorder Discharge - Discharge Plan Condition: Improved Disposition: HOME Patient Education Materials: Weakness (ED) Referrals: Ang Zelaya MD [Primary Care Provider] - Additional Instructions: [facility] will be called in the morning by [facility] to discuss the services you receive and evaluation for increased services. Return if worse, fever, new symptoms or other concerns as discussed. Get your video EEG as ordered by Dr Calderón. The documentation as recorded by the Sushil españa Gabriel accurately reflects the service I personally performed and the decisions made by me, Doug Santos MD.
== END 2017-09-27 21:34 | disposition home or self-care (01) ==
LOC: ED 18:18
DX: R53.1 Weakness (principal); F31.9 Bipolar disorder, unspecified; R05 Cough; Z87.891 Personal history of nicotine dependence; Z91.81 History of falling
CPT/HCPCS: 36415; 70450; 71010; 80053; 81003; 82550; 83605; 83735; 84100; 84443; 85025; 85060; 93005; 96360; 99283

== ENCOUNTER 2017-09-28 12:29 | Inpatient (IN) | payer MEDICAID, MEDICARE ==
[2017-09-28 14:11] LABS: ABS Basophils 0.1 10^3/ul (0-0.2); ABS Eosinophils 0.2 10^3/ul (0-0.6); ABS Lymphocytes 2.8 10^3/ul (1.0-4.8); ABS Monocytes 0.7 10^3/ul (0-0.8); ABS Neutrophils 5.7 10^3/ul (1.5-7.7); ABS Nucleated RBC 0 10^3/ul; Eosinophil % 2.1 % (0-6); Hematocrit 39 % (35-47); Hemoglobin 13.2 g/dl (12.0-16.0); Lymphocyte % 29.2 % (25-47); Mean Corpuscular HGB Conc 34 g/dl (31-36); Mean Corpuscular Hemoglobin 29 pg (27-31); Mean Corpuscular Volume 86 fL (80-97); Mean Platelet Volume 8 um3 (7.4-10.4); Nucleated Red Blood Cells % 0; Platelet Count 175 10^3/ul (150-450); Red Blood Count 4.59 10^6/ul (4.0-5.4); Red Cell Distribution Width 17 % (10.5-15); White Blood Count 9.4 10^3/ul (3.5-10.8)
[2017-09-28 14:31] LABS: EGFR Non-African American 87.2 (>60)
[2017-09-28] MEDS ORDERED: Acetaminophen TAB* 325 MG PO ONE (16:29)
[2017-09-28] MEDS ORDERED: Dextrose 50% Syringe 50 ML* 25 GM/50 ML SYRINGE IV PUSH PRN (17:16)
[2017-09-28] MEDS ORDERED: Albuterol 2.5 MG/3 ML NEB.SOL* (0.083%) INH PRN (17:16)
[2017-09-28] MEDS ORDERED: Senna TAB PO PRN (17:16)
[2017-09-28] MEDS ORDERED: Acetaminophen TAB* 325 MG PO PRN (17:16)
--- NOTE | 2017-09-28 18:01 | RAD ---
INDICATION: Right knee injury. TECHNIQUE: 2 views of the right knee were obtained. FINDINGS: The bones are normal alignment. No joint effusion or fracture is seen. Joint spaces appear maintained. IMPRESSION: NO EVIDENCE FOR FRACTURE.
[2017-09-28] MEDS ORDERED: hydrALAZINE IV* 20 MG/ML VIAL IV SLOW PU PRN (18:05)
--- NOTE | 2017-09-28 18:38 | RAD ---
INDICATION: Falls, weakness, nystagmus. COMPARISON: Comparison is made with a prior MRI of the brain from August 14, [address] of the brain from September 27, 2017. TECHNIQUE: Sagittal T1, axial T1, T2, susceptibility, FLAIR and diffusion weighted images were obtained. The study is limited. The patient was unable to fit the standard head coil. FINDINGS: The ventricles, cisterns and sulci appear prominent consistent with age-related atrophy. There are small focal areas of increased signal intensity on T2-weighted images present within the subcortical and periventricular white matter most consistent with mild chronic small vessel ischemic changes. In addition, there is a small focal area of encephalomalacia present in the posterior left frontal lobe which is unchanged from the prior MRI study suggestive of an old infarct. No areas of restricted diffusion are present. There is no evidence for acute infarct or hemorrhage. There are findings suggestive of a mucous retention cyst within the sphenoid sinus. The paranasal sinuses otherwise appear clear. IMPRESSION: 1. NO EVIDENCE FOR ACUTE INTRACRANIAL ABNORMALITY. 2. 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 3. MILD ATROPHY AND FINDINGS MOST CONSISTENT WITH MILD CHRONIC SMALL VESSEL ISCHEMIC CHANGES.
[2017-09-28] MEDS ORDERED: Magnesium Sulfate IV* 3 GM in NS 0.9% 100 ML* 100 ML IVPB ONE (19:30)
[2017-09-28] MEDS ORDERED: NS 0.9% 100 ML* 100 ML ONE (20:12)
[2017-09-28] MEDS: NS 0.9% 1000 ML* 1,000 ML IV SCH (20:24)
[2017-09-28] MEDS: levETIRAcetam TAB* 500 MG PO SCH (20:27)
[2017-09-28 20:37] LABS: Urine Appearance Cloudy; Urine Blood Negative (Negative); Urine Color Yellow; Urine Ketones Trace (Negative); Urine Protein Negative (Negative); Urine Specific Gravity 1.021 (1.010-1.030); Urine Urobilinogen Positive (Negative)
--- NOTE | 2017-09-28 21:31 | ED ---
Sushil Michaels Gabriel, scribed for Doug Santos MD on 09/28/17 at 1242 . Adult Trauma - HPI Summary HPI Summary: This patient is a 56 year old F BIBA to [facility] accompanied by her aide s/p fall [employer]. Patient reports weakness, anxiety, back and knee pain. Patient denies seizure activity, pain, LOC, BM troubles, and SI. Patient fell while trying to go the bathroom and called life alert because she couldn't get up by herself. Patient took 10 xanax last night to try to help her sleep. She has fallen twice since she took these. She was seen at the ED 09/27/17 for the very similar symptoms. - History of Current Complaint Chief Complaint: EDGeneral Stated Complaint: WEAKNESS, FALL Time Seen by Provider: 09/28/17 12:40 Hx Obtained From: Patient, Medical Records Hx Last Menstrual Period: not since 2009 Mechanism of Injury: Fall - from standing Ambulatory at the Scene: Yes Loss of Consciousness: no loss of consciousness Onset/Duration: Resolved Pain Intensity: 0 Pain Scale Used: 0-10 Numeric Associated Signs & Symptoms: Positive: Negative - seizure activity, pain, LOC, BM troubles, and SI, Other: - weakness, anxiety, back and knee pain - Additional Pertinent History Primary Care Physician: [id number] - Allergy/Home Medications Allergies/Adverse Reactions: Allergies Allergy/AdvReac Type Severity Reaction Status Date / Time Nitrofurantoin Allergy Severe Rash Verified 06/23/17 22:08 [From Macrobid] Clavulanic Acid AdvReac Intermediate Nausea And Verified 06/23/17 22:08 [From Augmentin] Vomiting Meperidine [From Demerol HCl] AdvReac Intermediate Headache Verified 06/23/17 22 :08 Morphine AdvReac Nausea Verified 06/23/17 22:08 Home Medications: Home Medications Levetiracetam [Keppra 500] 500 mg PO QAM 09/28/17 [History Confirmed 09/28/17] levETIRAcetam TAB* [Keppra TAB*] 1,000 mg PO QPM 09/28/17 [History Confirmed ] PMH/Surg Hx/FS Hx/Imm Hx Endocrine/Hematology History: Reports: Hx Diabetes, Other Endocrine/ Hematological Disorders Denies: Hx Thyroid Disease, Hx Anemia Cardiovascular History: Reports: Hx Angina, Hx Angioplasty, Hx Coronary Artery Disease, Hx Hypercholesterolemia, Hx Hypertension, Other Cardiovascular Problems /Disorders - CAD, int/ext carotid stenosis Denies: Hx Aneurysm, Hx Auto Implanted Cardiovert Defib, Hx Cardiac Arrest, Hx Cardiomegaly, Hx Congenital Heart Disease, Hx Congestive Heart Failure, Hx Deep Vein Thrombosis, Hx Hypotension, Hx Myocardial Infarction, Hx Pacemaker/ICD , Hx Peripheral Vascular Disease, Hx Rheumatic Fever, Hx Syncope, Hx Valvular Heart Disease Respiratory History: Reports: Hx Asthma, Hx Chronic Bronchitis, Hx Chronic Obstructive Pulmonary Disease (COPD) - O2 at home, Hx Pneumonia, Hx Sleep Apnea - CPAP in room for use, Other Respiratory Problems/Disorders - PNEUMONIA IN 2001 Denies: Hx Cystic Fibrosis, Hx Lung Cancer, Hx Pleural Effusion, Hx Pulmonary Edema, Hx Pulmonary Embolism, Hx Seasonal Allergies GI History: Reports: Hx Gastroesophageal Reflux Disease, Other GI Disorders - "sphincter in stomach not working" Denies: Hx Cirrhosis, Hx Crohn's Disease, Hx Diverticulosis, Hx Gall Bladder Disease, Hx Gastrointestinal Bleed, Hx Hiatal Hernia, Hx Irritable Bowel, Hx Jaundice, Hx Obstructive Bowel, Hx Ileostomy, Hx Pyloric Stenosis, Hx Ulcer History: Reports: Hx Chronic Renal Failure, Hx Renal Disease, Other Problems/Disorders - chronic kidney disease Denies: Hx Dialysis Musculoskeletal History: Reports: Hx Back Problems, Hx Scoliosis Sensory History: Reports: Hx Contacts or Glasses, Hx Vision Problem Denies: Hx Hearing Aid Opthamlomology History: Reports: Hx Contacts or Glasses, Hx Vision Problem Neurological History: Reports: Hx Headaches, Hx Migraine, Hx Seizures, Hx Transient Ischemic Attacks (TIA), Other Neuro Impairments/Disorders - Hx of 2 TIA. Hx moyamoya disease. 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 Hx Chemotherapy: No Hx Radiation Therapy: No - Surgical History Surgery Procedure, Year, and Place: uterine ablation, appendectomy, 2 bladder cystoscopies, c-sections, endoderectomy 2004, stent and balloon LICA 2005 & 2006 ( [place] WALLSTENT - SAFE AT 1.5T AND 3T WITH EVERETTE 2.0 W/KG 15 MINS LIMITATION) , tubal ligation, arterial bypass in the brain Hx Anesthesia Reactions: No - Immunization History Date of Tetanus Vaccine: unk Date of Influenza Vaccine: 06/2017 Infectious Disease History: Yes Infectious Disease History: Denies: Hx Clostridium Difficile, Hx Hepatitis, Hx Human Immunodeficiency Virus (HIV), Hx of Known/Suspected MRSA, Hx Shingles, Hx Tuberculosis, Hx Known/ Suspected VRE, Hx Known/Suspected VRSA, History Other Infectious Disease, Traveled Outside the [place] in Last 30 Days - Family History Known Family History: Positive: Cardiac Disease, Other - bipolar disorder; alcohol abuse - Social History Alcohol Use: None Alcohol Amount: once/year Hx Substance Use: No Substance Use Type: Reports: None Hx Tobacco Use: Yes Smoking Status (MU): Former Smoker Type: Cigarettes Amount Used/How Often: quit in 2004 Have You Smoked in the Last Year: No Review of Systems Constitutional: Negative - pain Gastrointestinal: Negative - BM problems Positive: Other - back and knee pain Neurological: Negative - LOC, seizure activity Positive: Weakness Positive: Anxious, Other - NEGATIVE SI All Other Systems Reviewed And Are Negative: Yes Physical Exam - Summary Physical Exam Summary: Appearance: Well appearing, no pain distress Skin: warm, dry, reflects adequate perfusion Head/face: normal, scar on left neck Eyes: EOMI, [place] ENT: normal Neck: supple, non-tender Respiratory: CTA, breath sounds present Cardiovascular: RRR, pulses symmetrical Abdomen: non-tender, soft Bowel: present Musculoskeletal: normal, strength/ROM intact Neuro: normal, sensory motor intact, A&Ox3 Triage Information Reviewed: Yes Vital Signs On Initial Exam: Initial Vitals Temp Pulse Resp BP Pulse Ox 97.4 F 88 14 137/61 96 09/28/17 12:33 09/28/17 12:33 09/28/17 12:33 09/28/17 12:33 09/28/17 12:33 Vital Signs Reviewed: Yes Diagnostics - Vital Signs Vital Signs Temp Pulse Resp BP Pulse Ox 09/28/17 12:33 97.4 F 88 14 137/61 96 - Laboratory Lab Results: Lab Results 09/28/17 09/28/17 Range/Units 13:55 13:55 WBC 9.4 (3.5-10.8) 10^3/ul RBC 4.59 (4.0-5.4) 10^6/ul Hgb 13.2 (12.0-16.0) g/dl Hct 39 (35-47) % MCV 86 (80-97) fL MCH 29 (27-31) pg MCHC 34 (31-36) g/dl RDW 17 H (10.5-15) % Plt Count 175 (150-450) 10^3/ul MPV 8 (7.4-10.4) um3 Neut % (Auto) 60.0 (38-83) % Lymph % (Auto) 29.2 (25-47) % [place] % (Auto) 7.2 (1-9) % Eos % (Auto) 2.1 (0-6) % Baso % (Auto) 1.5 (0-2) % Absolute Neuts (auto) 5.7 (1.5-7.7) 10^3/ul Absolute Lymphs (auto) 2.8 (1.0-4.8) 10^3/ul Absolute Monos (auto) 0.7 (0-0.8) 10^3/ul Absolute Eos (auto) 0.2 (0-0.6) 10^3/ul Absolute Basos (auto) 0.1 (0-0.2) 10^3/ul Absolute Nucleated RBC 0 10^3/ul Nucleated RBC % 0 Sodium 138 (133-145) mmol/L Potassium 4.1 (3.5-5.0) mmol/L Chloride 101 (101-111) mmol/L Carbon Dioxide 27 (22-32) mmol/L Anion Gap 10 (2-11) mmol/L BUN 14 (6-24) mg/dL Creatinine 0.70 (0.51-0.95) mg/dL Est GFR ( Amer) 112.1 (>60) Est GFR (Non-Af Amer) 87.2 (>60) BUN/Creatinine Ratio 20.0 (8-20) Glucose 225 H (70-100) mg/dL Calcium 8.9 (8.6-10.3) mg/dL Magnesium 1.6 L (1.9-2.7) mg/dL Salicylates < 2.50 (<30) mg/dL Acetaminophen < 15 mcg/mL Valproic Acid 74.0 (50-100) mcg/mL Serum Alcohol < 10 (<10) mg/dL Result Diagrams: 09/28/17 13:55 09/28/17 13:55 Lab Statement: Any lab studies that have been ordered have been reviewed, and results considered in the medical decision making process. Re-Evaluation - Re-Evaluation First Eval Change: Unchanged - pt remains stable thru stay. Still slow speech, which seems volitional Adult Trauma Course/Dx - Course Course Of Treatment: Pt came in with same complaint, another fall. She speaks slowly but has no focal deficits. She now tells me she took 10 1mg Xanax prior to seeing me yesterday. However, she was in exactly the same physical and cognitive state then as now. MH eval performed and cleared from their standpoint. With mult falls she will likely need placement. Admit for pediatric social worker/PT/OT etc. Assessment/Plan: Cleared from [facility] at 15:10 with a Dx of bipolar disorder - Diagnoses Provider Diagnoses: Bipolar 1 disorder, Multiple falls, Benzodiazepine overdose - Physician Notifications Discussed Care Of Patient With: Angelika Lucia Time Discussed With Above Provider: 15:19 Instructed by Provider To: Admit As Inpatient Discharge - Discharge Plan Condition: Fair Disposition: ADMITTED TO [facility] The documentation as recorded by the Sushil españa Gabriel accurately reflects the service I personally performed and the decisions made by me, Doug Santos MD.
[2017-09-28] MEDS: Aspirin TAB* 325 MG PO SCH (21:56)
[2017-09-28] MEDS: ASENAPINE 10 MG SL SCH (21:57)
[2017-09-28] MEDS: Gabapentin CAP(*) 300 MG PO SCH (21:57)
[2017-09-28] MEDS: Diltiazem CD CAP* 120 MG PO SCH (21:59)
[2017-09-28] MEDS: Famotidine TAB* 20 MG PO SCH (21:59)
[2017-09-28] MEDS: Docusate CAP* 100 MG PO SCH (21:59)
[2017-09-28] MEDS: Carvedilol TAB* 6.25 MG PO SCH (21:59)
[2017-09-28] MEDS: Lisinopril TAB* 10 MG PO SCH (21:59)
[2017-09-28] MEDS: Insulin LISPRO* 1 UNITS UNIT SUBCUT SCH (22:01)
[2017-09-28] MEDS: Heparin VIAL(*) 5000 UNITS/ML VIAL (FIVE THOUSAND) SUBCUT SCH (22:02)
[2017-09-28] MEDS: Divalproex ER TAB(*) 500 MG PO SCH (22:02)
--- NOTE | 2017-09-29 01:42 | HP ---
CC: Dr. Ang Zelaya * ADMISSION HISTORY AND PHYSICAL: DATE OF ADMISSION: 09/29/17 PRIMARY CARE PROVIDER: Dr. Ang Zelaya. MY ATTENDING WHILE IN THE HOSPITAL: Dr. Angelika Lucia.* (DICTATED BY MARLA ALLISON) CHIEF COMPLAINT: Falls x3, weakness. HISTORY OF PRESENT ILLNESS: The patient is a 56-year-old female with a past medical history significant for moyamoya with intracranial bypass surgery in October of this year, bipolar disorder, borderline personality disorder, carotid stenting, COPD, hypertension, diabetes, dyslipidemia and chronic kidney disease, who presents to the emergency department with 3 falls. The patient's first fall happened yesterday morning when the patient was trying to get out of bed to go to the bathroom. The patient felt weak and fell down and hitting her right knee. The patient was helped up. She then got anxious and took 4 of her Xanax and 4 more of her Xanax and then 2 of her Xanax. Then yesterday evening, she was getting out of bed again to go to the bathroom and hit her head on the wall. The patient felt like she could not move her right knee. The patient denied any epileptiform activity. The patient denied loss of consciousness. The patient came to the emergency department at that time and was evaluated. Brain CT, chest x-ray, and electrocardiogram were unremarkable for new pathology. The patient did not mention that her use of Xanax to the emergency department provider at that time. The patient states that she felt dizzy with her first fall without the room spinning, just lightheaded. The patient denied any epileptiform activity at this time. The patient recently does not drink very much water, does not check her blood pressure at home. The patient had no medication changes or changes in diet except for the addition of Keppra to her medication regimen earlier this month from her outpatient neurologist, Dr. Calderón. The patient denied any other symptoms such as nausea, vomiting, fevers , chills, chest pain, shortness of breath, abdominal pain, or diarrhea. The patient feels slightly constipated. The patient states that she has fallen many times before, but never like this and it is mainly different because her right knee is when giving out, usually her left side is her weak side. The patient also has a throbbing headache that started yesterday and it has been going on all day today from starting the back of her head and moving to the front. The patient denied any changes in vision. The patient denied palpitations. It was discussed with the patient that there was nothing wrong with her lab work and that taking her medication and her overall weakness that she would probably need rehab and possibly longer term stay in a facility with additional help. The patient has 21 hours of aide help at home and has been functioning well with the additional help of her daughter, but at this time is unable to take care of herself. The patient was in agreement with pursuing rehab stay, but was noncommittal about the possibility of longer term care. PAST MEDICAL HISTORY: 1. Morbid obesity. 2. Diabetes mellitus type 2. 3. Hypertension. 4. Dyslipidemia. 5. Bipolar I disorder. 6. Carotid stenosis with stenting in 2004. 7. COPD, on chronic 2 L of oxygen. 8. Borderline personality disorder. 9. CHF. 10. Hypertension. 11. Moyamoya disease with intracranial bypass in [place] in October of 2016. 12. Seizure disorder probable. MEDICATIONS: 1. Lansoprazole SoluTab 30 mg p.o. q.a.m. 2. Multivitamin 1 tab p.o. q.a.m. 3. Saphris 1 tab 10 mg sublingual at bedtime. 4. Ranitidine 300 mg p.o. at bedtime. 5. Gabapentin 300 mg p.o. at bedtime. 6. Alprazolam 1 tab p.o. t.i.d. 7. Liraglutide 1.8 mg subcutaneous q.p.m. 8. Glimepiride 4 mg p.o. daily. 9. Calcium 500 mg p.o. b.i.d. 10. Diltiazem 120 mg p.o. at bedtime. 11. Carvedilol 6.25 mg p.o. b.i.d. 12. Lisinopril 20 mg p.o. at bedtime. 13. Zofran 4 mg p.o. q.6 hours. 14. Docusate 100 mg p.o. b.i.d. 15. Aspirin 325 mg p.o. at bedtime. 16. Depakote 1000 mg p.o. b.i.d. 17. Fioricet 1 tab p.o. q.6 hours as needed. 18. Pristiq 100 mg p.o. q.a.m. 19. Wellbutrin 200 mg p.o. daily. 20. Lipitor 40 mg p.o. in the evening. 21. Keppra 1000 mg p.o. q.p.m. 22. Keppra 500 mg p.o. q.a.m. ALLERGIES: NITROFURANTOIN, CLAVULANIC ACID, MEPERIDINE, and MORPHINE. FAMILY HISTORY: The patient denies a family history of coronary artery disease. The patient's mother had diabetes mellitus and of complications. The patient's father had unknown cancer. SOCIAL HISTORY: The patient quit smoking in 2004 with a 26-pack year history. The patient denies any alcohol or illicit drug use. The patient does not work. She is on disability. The patient would like to be a full code. Her healthcare proxy is her daughter, Debra Sol and her sister, Nicolette Lozano. REVIEW OF SYSTEMS: The patient's 14-point review of systems was reviewed and is negative except as above. PHYSICAL EXAMINATION GENERAL: The patient is a 56-year-old female who appears stated age and sitting comfortably in the bed, in no acute distress. VITAL SIGNS: In the emergency department, temperature 97.4, heart rate 88, respiratory rate 14, oxygen saturation 96% on 4 L, blood pressure 137/61, most recent blood pressure 158/65. HEENT: Head: Normocephalic, atraumatic. Sclerae anicteric. No conjunctival injection. Nasal mucosa is moist. Oral mucosa is moist. Pharynx: Nonerythematous without discharge or exudate. NECK: Supple, nontender. No lymphadenopathy. No carotid bruits auscultated. CARDIAC: Regular rate and rhythm. No clicks, murmurs, gallops, or rubs. Pulses 2+ in the bilateral dorsalis pedis, posterior tibialis, and radial areas. 1+ pitting edema in the bilateral lower extremities symmetrically. No tenderness to palpation of the calves. ABDOMEN: Soft, nondistended. Bowel sounds present and normoactive in all 4 quadrants. No hepatosplenomegaly. There is slight tenderness to palpation over the right upper quadrant and tenderness to palpation over the suprapubic area. GENITOURINARY: Suprapubic tenderness and CVA tenderness on the left side. MUSCULOSKELETAL: There is full range of motion in the upper and lower extremities. There is pain with palpation over the joint lines of the right knee. No popping, cracking, or crepitus. No deformity. Moderate erythema without effusion. NEURO: The patient has slight drooping of her left eye, but is able to keep it closed against force. The patient's brow furrows more on the left than the right, but has minimal movement. The patient has persistent lateral nystagmus with both leftward and rightward gaze, but not vertical eye movement. Unable to test visual franco by confrontation due to the patient not cooperating or not understanding the test. Palate raises to the midline. Tongue protrudes to the midline. 4-/5 strength with shoulder shrug and head. Rotation symmetrical 4-/5 strength in the bilateral upper extremities distally and proximally. 4-/5 strength in the right lower extremity distally and proximally. 3/5 strength in the left leg distally and proximally. The patient performs [id number] and rapid finger taps with no difficulty. Reflexes 1+ in the bilateral biceps, patellae, and Achilles area. Babinski is nonreactive. The patient is unable to support herself except to sit up on the side of bed and could not stand. PSYCHIATRIC: The patient is sedated and has a flat affect. The patient endorses no suicidal ideation and she did not feel depressed. SKIN: Clean, dry, and intact. No rash. LABORATORY DATA: White blood cell count 9.4, hemoglobin 13.2, platelet count 175. Sodium 138, potassium 4.1, chloride 101, carbon dioxide 27, anion gap 10, BUN 14, creatinine 0.7, glucose 225, calcium 8.9. Salicylates negative, less than 2.5. Tylenol less than 15. Valproic acid 74. The patient's lactic acid was 2.1 on 09/27/17 in the evening and was not repeated. Magnesium 1.8 on 09/27 and was not replaced or repeated. IMPRESSION AND PLAN: The patient is a 56-year-old female with a past medical history significant for moyamoya, weakness, bipolar disorder, borderline personality disorder, hypertension, diabetes, chronic obstructive pulmonary disease, who presents with repeated falls and overuse of her Xanax. The patient has weakness on exam throughout, worse on the left than the right, which is her baseline, but the patient reports right-sided weakness leading to her falls. The patient had nystagmus on exam, but no other new neurological deficits. The patient will be admitted because she is unsafe to be sent home and will be evaluated for placement. 1. Weakness, falls. The patient has moyamoya and chronic neurological deficits. The patient does not appear to have new neurological deficits on exam ; however, she has been falling more than previously and is very subjectively weak throughout. Given the patient's intracranial pathology, MRI will be obtained to rule out new infarction. No further workup will be done in to causes of syncope as the patient has had these previously and did not lose consciousness. The patient has a seizure disorder recently diagnosed by her outpatient neurologist, Dr. Calderón, which was manifested by twitching, which came on after her brain surgery. The patient was started on Keppra and has had no more of these episodes. This does not sound like seizure-like activity. Valproic acid level is therapeutic. Keppra level is pending. The patient had negative urinalysis yesterday, but the patient feels has symptoms consistent of a urinary tract infection and repeat urinalysis will be ordered. The patient by her on admission does not drink very much and her lactic acid was elevated yesterday. The patient will be given 2 L of fluid at 100 mL an hour and lactic acid will be repeated now. The patient will also have an x-ray of her knee to assess for antalgic weakness leading to these falls. The patient will have a physical therapy and occupational therapy consultation to assess for subacute rehab versus long-term care. The patient will be on neurological checks. Hold off on consulting Neurology, pending the results of the MRI of the brain. 2. Seizure disorder. Continue Keppra and Depakote levels. Depakote level is therapeutic. Keppra level is pending. 3. Moyamoya. This is the likely etiology of the patient's generalized weakness and predisposed her to stroke, so we will have a low index of suspicion for assessing for new cerebrovascular accident. 4. Diabetes mellitus type 2. The patient will be monitored. The patient's glucose was 226 in the emergency department and her most recent hemoglobin A1c was 6.5 in June of 2017. The patient's Victoza and glimepiride will be held and the patient will be started on a sliding scale insulin a.c. and h.s. with a fingerstick blood glucose monitoring. We will hold off on rechecking hemoglobin A1c at this time. 5. Hyperlipidemia. The patient will be continued on her statin. No need to check a lipid panel at this time. Most recent was in June 2017. It showed LDL cholesterol of 86 and HDL cholesterol of 31.5. 6. Hypertension. The patient is currently hypertensive. We will continue to monitor and increase blood pressure medications as needed. We will have hydralazine available for blood pressures greater than systolic 170. 7. Possible urinary tract infection. The patient had a negative urinalysis as of yesterday, will have suprapubic tenderness and CVA tenderness. We will repeat urinalysis. No antibiotics indicated at this time. 8. Bipolar I disorder, borderline personality disorder. This is a likely cause behind the relatively unexplainable 10 Xanax she took yesterday, which are possibly contributing to her weakness and falls. The patient was cleared by Psychiatry in the emergency department and was set to go home, but the patient was deemed too weak to go safely. Continue Saphris, Depakote, bupropion , and Pristiq. 9. Constipation. The patient feels constipated. Continue Colace. The patient will have senna available. 10. DVT prophylaxis. The patient is high risk. The patient will have SCDs and heparin subcu. 11. Fluids, electrolytes, and nutrition. The patient will have normal saline. As above, the patient will have a consistent carbohydrate diet. 12. Code status. The patient is a full code. The patient's healthcare proxies are her daughter, Debra Sol and her sister, Nicolette Lozano as above. 13. Disposition. The patient is admitted for observation with the goal of sending her to subacute rehab as soon as possible. TIME SPENT: Approximately 60 minutes were spent on this admission, 30 of which was spent [id number] with the patient obtaining history and physical and discussing treatment plan. This plan has been discussed with my attending, Dr. Angelika Lucia and she is in agreement. MARLA ALLISON [id number]/[facility] #: [id number] SAURAV
[2017-09-29] MEDS: Heparin VIAL(*) 5000 UNITS/ML VIAL (FIVE THOUSAND) SUBCUT SCH ×3 (06:05→21:37)
[2017-09-29] MEDS: NS 0.9% 1000 ML* 1,000 ML IV SCH (08:27)
[2017-09-29] MEDS: CMCS: Desvenlafaxine (NF) 50 MG TAB PO SCH (09:18)
[2017-09-29] MEDS: Butalb/Acetamin/Caff TAB* 1 TAB PO PRN ×2 (09:18→21:39)
[2017-09-29] MEDS: Omeprazole CAP* 20 MG PO SCH (09:18)
[2017-09-29] MEDS: Docusate CAP* 100 MG PO SCH ×2 (09:18→21:42)
[2017-09-29] MEDS: levETIRAcetam TAB* 500 MG PO SCH ×2 (09:18→17:54)
[2017-09-29] MEDS: Carvedilol TAB* 6.25 MG PO SCH ×2 (09:18→21:40)
[2017-09-29] MEDS: Insulin LISPRO* 1 UNITS UNIT SUBCUT SCH ×4 (09:19→21:36)
[2017-09-29] MEDS: Divalproex ER TAB(*) 500 MG PO SCH ×2 (09:19→21:46)
[2017-09-29] MEDS: buPROPion TAB* 100 MG PO SCH (09:34)
--- NOTE | 2017-09-29 14:44 | PN ---
Subjective Date of Service: 09/29/17 Interval History: Patient feeling better today, more alert and less weak. Patient has chronic stabbing pain in left leg which is a 6/10, which is not any worse than it usually is and she takes fiorcet for it. Patient states she still is interested in rehab at [facility] to increase strength and return home. Patient stated her SOB is as baseline. Patient states she is dizzy without vertigo upon standing. Patient complains of constipation and does not know when her last BM was. Patient complains of intermittent dysuria. Patient denies CP, F/C, Abdominal pain, diarrhea or other pain. Family History: Unchanged from Admission Social History: Unchanged from Admission Past Medical History: Unchanged from Admission Objective Active Medications: Acetaminophen (Tylenol Tab*) 650 mg PO Q6H PRN PRN Reason: PAIN Acetaminophen/Butalbital/Caffeine (Fioricet Tab*) 1 tab PO Q6H PRN PRN Reason: MIGRAINE HEADACHE Last Admin: 09/29/17 09:18 Dose: 1 tab Albuterol (Ventolin 2.5 Mg/3 Ml Neb.Lilibeth*) 2.5 mg INH Q4H PRN PRN Reason: SOB/WHEEZING Asenapine (Saphris(Nf)) 10 mg SL BEDTIME [facility] Last Admin: 09/28/17 21:57 Dose: 10 mg Aspirin (Aspirin Tab*) 325 mg PO BEDTIME [facility] Last Admin: 09/28/17 21:56 Dose: 325 mg Atorvastatin Calcium (Lipitor*) 40 mg PO 1700 JULIANA Bupropion HCl (Wellbutrin Tab*) 200 mg PO DAILY [facility] Last Admin: 09/29/17 09:34 Dose: 200 mg Carvedilol (Coreg Tab*) 6.25 mg PO BID [facility] Last Admin: 09/29/17 09:18 Dose: 6.25 mg Desvenlafaxine Succinate (Pristiq (Nf)) 100 mg PO QAM [facility] Last Admin: 09/29/17 09:18 Dose: 100 mg Dextrose (D50w Syringe 50 Ml*) 12.5 gm IV PUSH .FOR FS < 60 - SS PRN PRN Reason: FS < 60 Diltiazem HCl (Cardizem Cd Cap*) 120 mg PO BEDTIME [facility] Last Admin: 09/28/17 21:59 Dose: 120 mg Divalproex Sodium (Depakote Er Tab(*)) 1,000 mg PO BID [facility] Last Admin: 09/29/17 09:19 Dose: 1,000 mg Docusate Sodium (Colace Cap*) 100 mg PO BID [facility] Last Admin: 09/29/17 09:18 Dose: 100 mg Famotidine (Pepcid Tab*) 40 mg PO BEDTIME JULIANA PRN Reason: Protocol Last Admin: 09/28/17 21:59 Dose: 40 mg Gabapentin (Neurontin Cap(*)) 300 mg PO BEDTIME [facility] Last Admin: 09/28/17 21:57 Dose: 300 mg Heparin Sodium (Porcine) (Heparin Vial(*)) 5,000 units SUBCUT Q8HR [facility] Last Admin: 09/29/17 13:14 Dose: 5,000 units Hydralazine HCl (Apresoline Iv*) 5 mg IV SLOW PU Q6H PRN PRN Reason: SYSTOLIC BP GREATER THAN: Sodium Chloride (Ns 0.9% 1000 Ml*) 1,000 mls @ 100 mls/hr IV PER RATE [facility] Stop: 09/30/17 03:59 Last Admin: 09/29/17 08:27 Dose: 100 mls/hr Ceftriaxone Sodium 1 gm/ (Sodium Chloride) 50 mls @ 200 mls/hr IVPB Q24H [facility] Insulin Human Lispro (Humalog*) 0 units SUBCUT ACHS [facility] PRN Reason: Protocol Last Admin: 09/29/17 13:14 Dose: 3 unit Levetiracetam (Keppra Tab*) 500 mg PO QAM [facility] Last Admin: 09/29/17 09:18 Dose: 500 mg Levetiracetam (Keppra Tab*) 1,000 mg PO QPM [facility] Last Admin: 09/28/17 20:27 Dose: 1,000 mg Lisinopril (Prinivil Tab*) 20 mg PO BEDTIME [facility] Last Admin: 09/28/17 21:59 Dose: 20 mg Omeprazole (Prilosec Cap*) 20 mg PO QAM [facility] Last Admin: 09/29/17 09:18 Dose: 20 mg Ondansetron HCl (Zofran Tab*) 4 mg PO Q6H PRN PRN Reason: NAUSEA/VOMITING Senna (Senokot Tab*) 1 tab PO DAILY PRN PRN Reason: CONSTIPATION Last Admin: 09/29/17 09:27 Dose: 1 tab Vital Signs - 8 hr 09/29/17 09/29/17 09/29/17 07:44 08:15 08:20 Temperature 98.5 F Pulse Rate 84 Respiratory 22 19 Rate Blood Pressure 141/62 (mmHg) O2 Sat by Pulse 95 93 Oximetry 09/29/17 09/29/17 09/29/17 09:18 10:25 11:12 Temperature 97.4 F Pulse Rate 85 Respiratory 16 27 16 Rate Blood Pressure 158/65 (mmHg) O2 Sat by Pulse 92 Oximetry 09/29/17 11:32 Temperature 97.3 F Pulse Rate 79 Respiratory 18 Rate Blood Pressure 148/56 (mmHg) O2 Sat by Pulse 93 Oximetry Oxygen Devices in Use Now: Nasal Cannula - 2L Appearance: Patient is a 56yo female who appears stated age and is sitting in the chair in NAD. Eyes: No Scleral Icterus, PERRLA Ears/Nose/Mouth/Throat: NL Teeth, Lips, Gums, Clear Oropharnyx, Mucous Membranes Moist Neck: NL Appearance and Movements; NL JVP, Trachea Midline Respiratory: Symmetrical Chest Expansion and Respiratory Effort, Clear to Auscultation Cardiovascular: NL Sounds; No Murmurs; No JVD, RRR, - - 1+ Edema in LE Abdominal: No Hepatosplenomegaly, - - Suprapubic and CVA tenderness Lymphatic: No Cervical Adenopathy Extremities: No Clubbing, Cyanosis Skin: No Rash or Ulcers, No Nodules or Sclerosis Neurological: Alert and Oriented x 3, NL Sensation, - - Short gait with small steps. 4-/5 strength throughout, no longer asymmetric. Reflexes normal. Result Diagrams: 09/28/17 13:55 09/28/17 13:55 Additional Lab and Data: Lab Results Microbiology and Other Data: Microbiology 09/28/17 20:15 Urine Culture - Preliminary Urine Enterococcus Faecalis 09/28/17 19:50 Nasal Screen MRSA (PCR)(VIVIANE) - Final Nasal Mrsa Negative Assess/Plan/Problems-Billing Assessment: Patient is a 56yo female with a PMH significant for MoyaMoya, DMII, Weakness, carotid disease, Bipolar I disorder, Borderline personality disorder who presents after repeated falls due to underlying weakness and having taken 10 xanax due to unresolved anxiety. - Patient Problems (1) Falls Current Visit: Yes Status: Acute Comment: Patient had 3 falls in the course of 2 days for which she came to the ED twice. Patient had head trauma without LOC. Patient significantly weak at baseline and feels like her right leg was giving out and she had difficulty standing to get out of bed. Patient unable to function safetly at home with current functional status. Improved today likely due to lack of Xanax. PT identified needs. Pateint amenable to placement for rehab. (2) UTI (urinary tract infection) Current Visit: Yes Status: Acute Comment: Intermittent dysuria and >100K colonies of Enterococcus fecalis. Patient has previously had a UTI with this pathogen. Multi-Drug Resistant, will treat with Ceftriaxone with the plan for amoxicillin at discharge. (3) Seizure disorder Current Visit: Yes Status: Acute Code(s): G40.909 - EPILEPSY, UNSP, NOT INTRACTABLE, WITHOUT STATUS EPILEPTICUS SNOMED Code(s): 316320892 Comment: Pateint has a history of partial seizures. Recently started on Keppra without recurrence. On depakote and therapeutic for Bipolar. Keppra level pending. No epileptiform movements when falling. (4) Left-sided weakness Current Visit: No Status: Acute Code(s): R53.1 - WEAKNESS SNOMED Code(s): 838720387 Comment: Patient has left sided weakness at baseline which is now generalized but was worse on the left side. MRI of brain shows no new pathology. (5) Moyamoya Current Visit: No Status: Acute Code(s): I67.5 - MOYAMOYA DISEASE SNOMED Code(s): 62170959 Comment: Has Neurosurgeon in [place], had recent intracranial bypass. No Signs of new stroke on MRI. (6) Bipolar disorder Current Visit: No Status: Chronic Priority: Medium Comment: Continue Depakote, Saphris and Pristiq. (7) CHF (congestive heart failure) Current Visit: No Status: Chronic Priority: Medium Code(s): I50.9 - HEART FAILURE, UNSPECIFIED SNOMED Code(s): 05565130 Comment: Not in acute failure continue home meds (8) Cluster B personality disorder Current Visit: No Status: Chronic Code(s): JRI9845 - SNOMED Code(s): 8167907 Comment: Borderline personality disorder, continue home meds. Taking extra xanax consistent with attention seeking associated with this disorder. (9) DM2 (diabetes mellitus, type 2) Current Visit: No Status: Chronic Comment: Sugars are under good control on lispro sliding scale. Victoza and glimepiride are on hold. Resume upon discharge. (10) Dyslipidemia Current Visit: No Status: Chronic Code(s): E78.5 - HYPERLIPIDEMIA, UNSPECIFIED SNOMED Code(s): 144886209 Comment: Continue lipitor (11) Hypertension Current Visit: No Status: Chronic Code(s): I10 - ESSENTIAL (PRIMARY) HYPERTENSION SNOMED Code(s): 16517104 Comment: Continue Coreg, Lisinopril and Cardizem. Slightly hypertensive, orthostatic pending. (12) DVT prophylaxis Current Visit: No Status: Chronic Code(s): UGQ3397 - SNOMED Code(s): 689322606 Comment: SQ heparin Status and Disposition: Patient is admitted OBV with the plan for STR at discharge.
[2017-09-29] MEDS: cefTRIAXone(*) 1 GM in NS 0.9% 50 ML* 50 ML IVPB SCH (15:27)
[2017-09-29] MEDS: Atorvastatin* 40 MG TAB PO SCH (17:54)
[2017-09-29] MEDS: Gabapentin CAP(*) 300 MG PO SCH (21:39)
[2017-09-29] MEDS: Lisinopril TAB* 10 MG PO SCH (21:39)
[2017-09-29] MEDS: Diltiazem CD CAP* 120 MG PO SCH (21:40)
[2017-09-29] MEDS: Famotidine TAB* 20 MG PO SCH (21:42)
[2017-09-29] MEDS: Aspirin TAB* 325 MG PO SCH (21:43)
[2017-09-29] MEDS: ASENAPINE 10 MG SL SCH (21:46)
[2017-09-30 05:37] LABS: ABS Basophils 0.1 10^3/ul (0-0.2); ABS Eosinophils 0.2 10^3/ul (0-0.6); ABS Lymphocytes 3.7 10^3/ul (1.0-4.8); ABS Monocytes 0.7 10^3/ul (0-0.8); ABS Neutrophils 3.4 10^3/ul (1.5-7.7); ABS Nucleated RBC 0.04 10^3/ul; Hematocrit 38 % (35-47); Lymphocyte % 45.9 % (25-47); Mean Corpuscular HGB Conc 35 g/dl (31-36); Mean Corpuscular Hemoglobin 29 pg (27-31); Mean Corpuscular Volume 85 fL (80-97); Nucleated Red Blood Cells % 0.5; Red Blood Count 4.44 10^6/ul (4.0-5.4); Red Cell Distribution Width 17 % (10.5-15); White Blood Count 8.1 10^3/ul (3.5-10.8)
[2017-09-30] MEDS: Heparin VIAL(*) 5000 UNITS/ML VIAL (FIVE THOUSAND) SUBCUT SCH ×3 (05:41→21:30)
[2017-09-30 06:00] LABS: EGFR Non-African American 110.5 (>60)
[2017-09-30 06:23] LABS: Mean Platelet Volume 9 um3 (7.4-10.4)
[2017-09-30 06:24] LABS: Platelet Count 162 10^3/ul (150-450)
[2017-09-30] MEDS: levETIRAcetam TAB* 500 MG PO SCH ×2 (09:45→21:26)
[2017-09-30] MEDS: CMCS: Desvenlafaxine (NF) 50 MG TAB PO SCH (09:45)
[2017-09-30] MEDS: Omeprazole CAP* 20 MG PO SCH (09:46)
[2017-09-30] MEDS: Carvedilol TAB* 6.25 MG PO SCH ×2 (09:46→21:26)
[2017-09-30] MEDS: buPROPion TAB* 100 MG PO SCH (09:46)
[2017-09-30] MEDS: Divalproex ER TAB(*) 500 MG PO SCH ×2 (09:46→21:27)
[2017-09-30] MEDS: Docusate CAP* 100 MG PO SCH ×2 (09:47→21:25)
[2017-09-30] MEDS: Insulin LISPRO* 1 UNITS UNIT SUBCUT SCH ×4 (09:48→21:29)
[2017-09-30] MEDS: cefTRIAXone(*) 1 GM in NS 0.9% 50 ML* 50 ML IVPB SCH (15:38)
--- NOTE | 2017-09-30 17:29 | PN ---
Subjective Date of Service: 09/30/17 Interval History: Reports that she is feeling better today. Denies chest pain, shortness of breath, nausea,vomiting, diarrhea or abd pain. Pt inquired about the possibility of going home, but is still receptive to going to rehab. Family History: Unchanged from Admission Social History: Unchanged from Admission Past Medical History: Unchanged from Admission Objective Active Medications: Acetaminophen (Tylenol Tab*) 650 mg PO Q6H PRN PRN Reason: PAIN Acetaminophen/Butalbital/Caffeine (Fioricet Tab*) 1 tab PO Q6H PRN PRN Reason: MIGRAINE HEADACHE Last Admin: 09/29/17 21:39 Dose: 1 tab Albuterol (Ventolin 2.5 Mg/3 Ml Neb.Lilibeth*) 2.5 mg INH Q4H PRN PRN Reason: SOB/WHEEZING Asenapine (Saphris(Nf)) 10 mg SL BEDTIME [facility] Last Admin: 09/29/17 21:46 Dose: 10 mg Aspirin (Aspirin Tab*) 325 mg PO BEDTIME [facility] Last Admin: 09/29/17 21:43 Dose: 325 mg Atorvastatin Calcium (Lipitor*) 40 mg PO 1700 [facility] Last Admin: 09/29/17 17:54 Dose: 40 mg Bupropion HCl (Wellbutrin Tab*) 200 mg PO DAILY [facility] Last Admin: 09/30/17 09:46 Dose: 200 mg Carvedilol (Coreg Tab*) 6.25 mg PO BID [facility] Last Admin: 09/30/17 09:46 Dose: 6.25 mg Desvenlafaxine Succinate (Pristiq (Nf)) 100 mg PO QAM [facility] Last Admin: 09/30/17 09:45 Dose: 100 mg Dextrose (D50w Syringe 50 Ml*) 12.5 gm IV PUSH .FOR FS < 60 - SS PRN PRN Reason: FS < 60 Diltiazem HCl (Cardizem Cd Cap*) 120 mg PO BEDTIME [facility] Last Admin: 09/29/17 21:40 Dose: 120 mg Divalproex Sodium (Depakote Er Tab(*)) 1,000 mg PO BID [facility] Last Admin: 09/30/17 09:46 Dose: 1,000 mg Docusate Sodium (Colace Cap*) 100 mg PO BID [facility] Last Admin: 09/30/17 09:47 Dose: 100 mg Famotidine (Pepcid Tab*) 40 mg PO BEDTIME [facility] PRN Reason: Protocol Last Admin: 09/29/17 21:42 Dose: 40 mg Gabapentin (Neurontin Cap(*)) 300 mg PO BEDTIME [facility] Last Admin: 09/29/17 21:39 Dose: 300 mg Heparin Sodium (Porcine) (Heparin Vial(*)) 5,000 units SUBCUT Q8HR [facility] Last Admin: 09/30/17 13:27 Dose: 5,000 units Hydralazine HCl (Apresoline Iv*) 5 mg IV SLOW PU Q6H PRN PRN Reason: SYSTOLIC BP GREATER THAN: Ceftriaxone Sodium 1 gm/ (Sodium Chloride) 50 mls @ 200 mls/hr IVPB Q24H [facility] Last Admin: 09/30/17 15:38 Dose: 200 mls/hr Insulin Human Lispro (Humalog*) 0 units SUBCUT ACHS [facility] PRN Reason: Protocol Last Admin: 09/30/17 13:27 Dose: 6 unit Levetiracetam (Keppra Tab*) 500 mg PO QAM [facility] Last Admin: 09/30/17 09:45 Dose: 500 mg Levetiracetam (Keppra Tab*) 1,000 mg PO 2100 [facility] Lisinopril (Prinivil Tab*) 20 mg PO BEDTIME [facility] Last Admin: 09/29/17 21:39 Dose: 20 mg Omeprazole (Prilosec Cap*) 20 mg PO QAM [facility] Last Admin: 09/30/17 09:46 Dose: 20 mg Ondansetron HCl (Zofran Tab*) 4 mg PO Q6H PRN PRN Reason: NAUSEA/VOMITING Senna (Senokot Tab*) 1 tab PO DAILY PRN PRN Reason: CONSTIPATION Last Admin: 09/29/17 09:27 Dose: 1 tab Vital Signs - 8 hr 09/30/17 09/30/17 09/30/17 12:00 15:13 16:00 Temperature 97.7 F 98.3 F Pulse Rate 72 76 Respiratory 20 22 Rate Blood Pressure 150/67 132/75 (mmHg) O2 Sat by Pulse 93 93 93 Oximetry Oxygen Devices in Use Now: Nasal Cannula Eyes: No Scleral Icterus Ears/Nose/Mouth/Throat: Mucous Membranes Moist Neck: NL Appearance and Movements; NL JVP, Trachea Midline Respiratory: Symmetrical Chest Expansion and Respiratory Effort, Clear to Auscultation, - - diminished Cardiovascular: NL Sounds; No Murmurs; No JVD, RRR, No Edema Extremities: No Clubbing, Cyanosis, - - mild lower ext edema noted Skin: No Rash or Ulcers Neurological: Alert and Oriented x 3 Nutrition: Taking PO's Result Diagrams: 09/30/17 05:14 09/30/17 05:14 Additional Lab and Data: Lab Results Microbiology and Other Data: Microbiology 09/28/17 20:15 Urine Culture - Preliminary Urine Enterococcus Faecalis 09/28/17 19:50 Nasal Screen MRSA (PCR)([facility]IV[facility]E) - Final Nasal Mrsa Negative Assess/Plan/Problems-Billing Assessment: Patient is a 56yo female with a PMH significant for MoyaMoya, DMII, Weakness, carotid disease, Bipolar I disorder, Borderline personality disorder who presents after repeated falls due to underlying weakness and having taken 10 xanax due to unresolved anxiety. - Patient Problems (1) Falls Current Visit: Yes Status: Acute Comment: Patient had 3 falls in the course of 2 days for which she came to the ED twice. Patient significantly weak at baseline and feels like her right leg was giving out and she had difficulty standing to get out of bed. Patient unable to function safetly at home with current functional status. Improved today was able to ambulate to the bathroom when needed. Pateint agreeable to placement for rehab. Plan for rehab was discussed with patient and her daughter. Daughter is in agreement with plan for rehab. Patient and family would like to go [facility] if possible. (2) Seizure disorder Current Visit: Yes Status: Acute Code(s): G40.909 - EPILEPSY, UNSP, NOT INTRACTABLE, WITHOUT STATUS EPILEPTICUS SNOMED Code(s): 700641899 Comment: Pateint has a history of partial seizures. On Keppra without recurrence. On depakote and therapeutic for Bipolar. Keppra level19.2 within therapeutic range. Will continue medications (3) UTI (urinary tract infection) Current Visit: Yes Status: Acute Comment: Intermittent dysuria and >100K colonies of Enterococcus fecalis. Patient has previously had a UTI with this pathogen. Multi-Drug Resistant, will treat with Ceftriaxone with the plan for amoxicillin at discharge. (4) Atypical depression Current Visit: No Status: Acute Code(s): F32.8 - OTHER DEPRESSIVE EPISODES * DO NOT USE * SNOMED Code(s): 678221474 Comment: Continue on Depakote and wellbutrin (5) FEN Current Visit: No Status: Acute Priority: High Comment: Consistent Carb Diet (6) Full code status Current Visit: No Status: Acute Code(s): Z78.9 - OTHER SPECIFIED HEALTH STATUS SNOMED Code(s): 041625427 (7) DVT prophylaxis Current Visit: Yes Status: Acute Code(s): JPI1585 - SNOMED Code(s): 001181840 Comment: Hepatrin SubQ Status and Disposition: Patient coverted to regular admit. Will go to short term rehab when discharged. Points of Discussion: Discussed with patient and daughter at great extent the need for go to short term rehab. Daughter is in agreement of needing to be placed in short term rehab. Patient is agreeable and understands that she needs to regain strength so she can safely return home. One daughter states that she is moving out town soon and will not be available to help care for her mother. Daughter states that other daughter will be there to help with the mother care but is not a great support system for her.
[2017-09-30] MEDS: Atorvastatin* 40 MG TAB PO SCH (17:48)
[2017-09-30] MEDS: Butalb/Acetamin/Caff TAB* 1 TAB PO PRN (20:02)
[2017-09-30] MEDS: Diltiazem CD CAP* 120 MG PO SCH (21:25)
[2017-09-30] MEDS: Gabapentin CAP(*) 300 MG PO SCH (21:25)
[2017-09-30] MEDS: Lisinopril TAB* 10 MG PO SCH (21:25)
[2017-09-30] MEDS: Aspirin TAB* 325 MG PO SCH (21:25)
[2017-09-30] MEDS: Famotidine TAB* 20 MG PO SCH (21:26)
[2017-09-30] MEDS: ASENAPINE 10 MG SL SCH (21:27)
[2017-10-01] MEDS: Heparin VIAL(*) 5000 UNITS/ML VIAL (FIVE THOUSAND) SUBCUT SCH ×3 (06:13→22:03)
[2017-10-01] MEDS: GLIMEPIRIDE 2 MG PO SCH (09:06)
[2017-10-01] MEDS: CMCS: Desvenlafaxine (NF) 50 MG TAB PO SCH (09:06)
[2017-10-01] MEDS: Omeprazole CAP* 20 MG PO SCH (09:07)
[2017-10-01] MEDS: Divalproex ER TAB(*) 500 MG PO SCH ×2 (09:07→20:35)
[2017-10-01] MEDS: Carvedilol TAB* 6.25 MG PO SCH ×2 (09:07→20:37)
[2017-10-01] MEDS: levETIRAcetam TAB* 500 MG PO SCH ×2 (09:07→20:37)
[2017-10-01] MEDS: Docusate CAP* 100 MG PO SCH ×2 (09:07→20:38)
[2017-10-01] MEDS: buPROPion TAB* 100 MG PO SCH (09:07)
[2017-10-01] MEDS: Insulin LISPRO* 1 UNITS UNIT SUBCUT SCH ×4 (09:12→20:38)
[2017-10-01] MEDS: cefTRIAXone(*) 1 GM in NS 0.9% 50 ML* 50 ML IVPB SCH (15:14)
[2017-10-01] MEDS: Atorvastatin* 40 MG TAB PO SCH (17:04)
--- NOTE | 2017-10-01 17:39 | PN ---
Subjective Date of Service: 10/01/17 Interval History: Patient seen and examined at bedside. Denies fever, chills, shortness of breath , chest discomfort, N/V/D. Pt states that she is feeling down about still being here, but understands that it is necessary. Family History: Unchanged from Admission Social History: Unchanged from Admission Past Medical History: Unchanged from Admission Objective Active Medications: Acetaminophen (Tylenol Tab*) 650 mg PO Q6H PRN Reason: PAIN Acetaminophen/Butalbital/Caffeine (Fioricet Tab*) 1 tab PO Q6H PRN Reason: MIGRAINE HEADACHE Albuterol (Ventolin 2.5 Mg/3 Ml Neb.Lilibeth*) 2.5 mg INH Q4H PRN Reason: SOB/ WHEEZING Asenapine (Saphris(Nf)) 10 mg SL BEDTIME [facility] Aspirin (Aspirin Tab*) 325 mg PO BEDTIME [facility] Atorvastatin Calcium (Lipitor*) 40 mg PO 1700 [facility] Bupropion HCl (Wellbutrin Tab*) 200 mg PO DAILY [facility] Carvedilol (Coreg Tab*) 6.25 mg PO BID [facility] Desvenlafaxine Succinate (Pristiq (Nf)) 100 mg PO QAM [facility] Dextrose (D50w Syringe 50 Ml*) 12.5 gm IV PUSH .FOR FS < 60 - SS PRN Reason: FS < 60 Diltiazem HCl (Cardizem Cd Cap*) 120 mg PO BEDTIME [facility] Divalproex Sodium (Depakote Er Tab(*)) 1,000 mg PO BID [facility] Docusate Sodium (Colace Cap*) 100 mg PO BID [facility] Famotidine (Pepcid Tab*) 40 mg PO BEDTIME [facility] Gabapentin (Neurontin Cap(*)) 300 mg PO BEDTIME [facility] Glimepiride (Glimepiride (Nf)) 4 mg PO DAILY [facility] Heparin Sodium (Porcine) (Heparin Vial(*)) 5,000 units SUBCUT Q8HR [facility] Hydralazine HCl (Apresoline Iv*) 5 mg IV SLOW PU Q6H PRN Reason: SYSTOLIC BP GREATER THAN: Ceftriaxone Sodium 1 gm/ (Sodium Chloride) 50 mls @ 200 mls/hr IVPB Q24H [facility] Insulin Human Lispro (Humalog*) 0 units SUBCUT ACHS [facility] Levetiracetam (Keppra Tab*) 500 mg PO QAM [facility] Levetiracetam (Keppra Tab*) 1,000 mg PO 2100 [facility] Liraglutide (Victoza (Nf)) 1.8 mg SUBCUT QPM [facility] Lisinopril (Prinivil Tab*) 20 mg PO BEDTIME [facility] Omeprazole (Prilosec Cap*) 20 mg PO QAM [facility] Ondansetron HCl (Zofran Tab*) 4 mg PO Q6H PRN Reason: NAUSEA/VOMITING Senna (Senokot Tab*) 1 tab PO DAILY PRN Reason: CONSTIPATION Vital Signs - 8 hr 10/01/17 10/01/17 10/01/17 11:52 15:38 16:00 Temperature 98.8 F 98.0 F Pulse Rate 67 71 Respiratory 17 22 Rate Blood Pressure 140/45 148/54 (mmHg) O2 Sat by Pulse 93 93 93 Oximetry 10/01/17 16:42 Temperature Pulse Rate 70 Respiratory 18 Rate Blood Pressure (mmHg) O2 Sat by Pulse 93 Oximetry Oxygen Devices in Use Now: None Appearance: NAD, sitting up in a chair Ears/Nose/Mouth/Throat: Mucous Membranes Moist Respiratory: Symmetrical Chest Expansion and Respiratory Effort, Clear to Auscultation Cardiovascular: NL Sounds; No Murmurs; No JVD, RRR Abdominal: NL Sounds; No Tenderness; No Distention Extremities: - - Trace bilateral LE edema Skin: No Rash or Ulcers Neurological: Alert and Oriented x 3, NL Muscle Strength and Tone Lines/Tubes/Other Access: Clean, Dry and Intact Peripheral IV - site benign Nutrition: Taking PO's Result Diagrams: 09/30/17 05:14 09/30/17 05:14 Additional Lab and Data: Microbiology and Other Data: Microbiology 09/28/17 20:15 Urine Culture - Preliminary Urine Enterococcus Faecalis 09/28/17 19:50 Nasal Screen MRSA (PCR)([facility]IV[facility]E) - Final Nasal Mrsa Negative Assess/Plan/Problems-Billing Assessment: Ms. Sol is a 56yo female with a PMH significant for MoyaMoya, DMII, Weakness , carotid disease, Bipolar I disorder, Borderline personality disorder who presents after repeated falls due to underlying weakness and having taken 10 xanax due to unresolved anxiety. - Patient Problems (1) Falls Comment: - Patient had 3 falls in the course of 2 days for which she came to the ED twice. - Patient significantly weak at baseline and feels like her right leg was giving out and she had difficulty standing to get out of bed. - Patient unable to function safetly at home with current functional status. - Pateint agreeable to placement for rehab. Plan for rehab was discussed with patient and her daughter. Daughter is in agreement with plan for rehab. - Patient and family would like to go to [facility] if possible. (2) Seizure disorder Code(s): G40.909 - EPILEPSY, UNSP, NOT INTRACTABLE, WITHOUT STATUS EPILEPTICUS SNOMED Code(s): 183399132 Comment: - Pateint has a history of partial seizures. - Keppra level 19.2 within therapeutic range. - Continue Keppra. (3) UTI (urinary tract infection) Comment: - Intermittent dysuria - Enterococcus fecalis > 100K - Continue Ceftriaxone with the plan for amoxicillin at discharge. (4) Bipolar disorder Comment: - Continue Depakote, Saphris, and Pristiq. (5) Moyamoya Code(s): I67.5 - MOYAMOYA DISEASE SNOMED Code(s): 30305885 Comment: - Has Neurosurgeon in [place], had recent intracranial bypass. - No Signs of new stroke on MRI. (6) CHF (congestive heart failure) Code(s): I50.9 - HEART FAILURE, UNSPECIFIED SNOMED Code(s): 48663477 Comment: - Diastolic - No signs of an acute exacerbation at this time. - Last EF 55-60 08/2016 - Daily weights and strict I+O's (7) DM2 (diabetes mellitus, type 2) Comment: - HgA1C 6.5 in 06/2017 - Glucose controlled - Continue lispro sliding scale, glimepiride, and vivtoza (8) Dyslipidemia Code(s): E78.5 - HYPERLIPIDEMIA, UNSPECIFIED SNOMED Code(s): 503413960 Comment: - Continue lipitor (9) Hypertension Code(s): I10 - ESSENTIAL (PRIMARY) HYPERTENSION SNOMED Code(s): 23695962 Comment: - Slightly hypertensive, SBP 130-150's - Continue Coreg, Lisinopril and Cardizem (10) JOSIE (obstructive sleep apnea) Code(s): G47.33 - OBSTRUCTIVE SLEEP APNEA (ADULT) (PEDIATRIC) SNOMED Code(s): 48385948 Comment: - Continue with supplemental O2. (11) Obesity Code(s): E66.9 - OBESITY, UNSPECIFIED SNOMED Code(s): 691400700 Comment: - BMI 49 (12) PTSD (post-traumatic stress disorder) Code(s): F43.10 - POST-TRAUMATIC STRESS DISORDER, UNSPECIFIED SNOMED Code(s): 51418576 (13) DVT prophylaxis Code(s): ZKT4463 - SNOMED Code(s): 377051654 Comment: - Heparin SubQ (14) Full code status Code(s): Z78.9 - OTHER SPECIFIED HEALTH STATUS SNOMED Code(s): 541896798 Status and Disposition: Inpatient. Plan for discharge to short term rehab.
[2017-10-01] MEDS: PTO: Liraglutide (NF) 18 MG/3 ML SUBCUT SCH (17:53)
[2017-10-01] MEDS: ASENAPINE 10 MG SL SCH (20:36)
[2017-10-01] MEDS: Lisinopril TAB* 10 MG PO SCH (20:36)
[2017-10-01] MEDS: Aspirin TAB* 325 MG PO SCH (20:37)
[2017-10-01] MEDS: Famotidine TAB* 20 MG PO SCH (20:37)
[2017-10-01] MEDS: Gabapentin CAP(*) 300 MG PO SCH (20:38)
[2017-10-01] MEDS: Diltiazem CD CAP* 120 MG PO SCH (20:38)
[2017-10-02] MEDS: Heparin VIAL(*) 5000 UNITS/ML VIAL (FIVE THOUSAND) SUBCUT SCH ×3 (05:33→21:26)
[2017-10-02] MEDS: Butalb/Acetamin/Caff TAB* 1 TAB PO PRN (05:55)
[2017-10-02] MEDS: Insulin LISPRO* 1 UNITS UNIT SUBCUT SCH ×4 (08:43→21:25)
[2017-10-02] MEDS: Omeprazole CAP* 20 MG PO SCH (08:44)
[2017-10-02] MEDS: levETIRAcetam TAB* 500 MG PO SCH ×2 (08:44→21:21)
[2017-10-02] MEDS: Docusate CAP* 100 MG PO SCH (08:44)
[2017-10-02] MEDS: Carvedilol TAB* 6.25 MG PO SCH ×2 (08:44→21:22)
[2017-10-02] MEDS: Divalproex ER TAB(*) 500 MG PO SCH ×2 (08:44→21:21)
[2017-10-02] MEDS: CMCS: Desvenlafaxine (NF) 50 MG TAB PO SCH (08:44)
[2017-10-02] MEDS: GLIMEPIRIDE 2 MG PO SCH (08:45)
[2017-10-02] MEDS: buPROPion TAB* 100 MG PO SCH (08:45)
--- NOTE | 2017-10-02 11:14 | PN ---
Subjective Date of Service: 10/02/17 Interval History: reports feeling stronger, was able to ambulate to the bathroom. c/o diarrhea today. Denies any abd pain, nausea or vomiting. Denies chest pain or shortness of breath. Family History: Unchanged from Admission Social History: Unchanged from Admission Past Medical History: Unchanged from Admission Objective Active Medications: Acetaminophen (Tylenol Tab*) 650 mg PO Q6H PRN PRN Reason: PAIN Acetaminophen/Butalbital/Caffeine (Fioricet Tab*) 1 tab PO Q6H PRN PRN Reason: MIGRAINE HEADACHE Last Admin: 10/02/17 05:55 Dose: 1 tab Albuterol (Ventolin 2.5 Mg/3 Ml Neb.Lilibeth*) 2.5 mg INH Q4H PRN PRN Reason: SOB/WHEEZING Asenapine (Saphris(Nf)) 10 mg SL BEDTIME [facility] Last Admin: 10/01/17 20:36 Dose: 10 mg Aspirin (Aspirin Tab*) 325 mg PO BEDTIME [facility] Last Admin: 10/01/17 20:37 Dose: 325 mg Atorvastatin Calcium (Lipitor*) 40 mg PO 1700 [facility] Last Admin: 10/01/17 17:04 Dose: 40 mg Bupropion HCl (Wellbutrin Tab*) 200 mg PO DAILY [facility] Last Admin: 10/02/17 08:45 Dose: 200 mg Carvedilol (Coreg Tab*) 6.25 mg PO BID [facility] Last Admin: 10/02/17 08:44 Dose: 6.25 mg Desvenlafaxine Succinate (Pristiq (Nf)) 100 mg PO QAM [facility] Last Admin: 10/02/17 08:44 Dose: 100 mg Dextrose (D50w Syringe 50 Ml*) 12.5 gm IV PUSH .FOR FS < 60 - SS PRN PRN Reason: FS < 60 Diltiazem HCl (Cardizem Cd Cap*) 120 mg PO BEDTIME [facility] Last Admin: 10/01/17 20:38 Dose: 120 mg Divalproex Sodium (Depakote Er Tab(*)) 1,000 mg PO BID [facility] Last Admin: 10/02/17 08:44 Dose: 1,000 mg Famotidine (Pepcid Tab*) 40 mg PO BEDTIME [facility] PRN Reason: Protocol Last Admin: 10/01/17 20:37 Dose: 40 mg Gabapentin (Neurontin Cap(*)) 300 mg PO BEDTIME [facility] Last Admin: 10/01/17 20:38 Dose: 300 mg Glimepiride (Glimepiride (Nf)) 4 mg PO DAILY [facility] PRN Reason: Protocol Last Admin: 10/02/17 08:45 Dose: 4 mg Heparin Sodium (Porcine) (Heparin Vial(*)) 5,000 units SUBCUT Q8HR [facility] Last Admin: 10/02/17 05:33 Dose: 5,000 units Hydralazine HCl (Apresoline Iv*) 5 mg IV SLOW PU Q6H PRN PRN Reason: SYSTOLIC BP GREATER THAN: Ceftriaxone Sodium 1 gm/ (Sodium Chloride) 50 mls @ 200 mls/hr IVPB Q24H [facility] Last Admin: 10/01/17 15:14 Dose: 200 mls/hr Insulin Human Lispro (Humalog*) 0 units SUBCUT ACHS [facility] PRN Reason: Protocol Last Admin: 10/02/17 08:43 Dose: 3 unit Levetiracetam (Keppra Tab*) 500 mg PO QAM [facility] Last Admin: 10/02/17 08:44 Dose: 500 mg Levetiracetam (Keppra Tab*) 1,000 mg PO 2100 [facility] Last Admin: 10/01/17 20:37 Dose: 1,000 mg Liraglutide (Victoza (Nf)) 1.8 mg SUBCUT QPM [facility] Last Admin: 10/01/17 17:53 Dose: Not Given Lisinopril (Prinivil Tab*) 20 mg PO BEDTIME [facility] Last Admin: 10/01/17 20:36 Dose: 20 mg Omeprazole (Prilosec Cap*) 20 mg PO QAM [facility] Last Admin: 10/02/17 08:44 Dose: 20 mg Ondansetron HCl (Zofran Tab*) 4 mg PO Q6H PRN PRN Reason: NAUSEA/VOMITING Vital Signs - 8 hr 10/02/17 10/02/17 10/02/17 03:26 05:55 07:46 Temperature 98.0 F 97.4 F Pulse Rate 64 80 Respiratory 16 16 16 Rate Blood Pressure 142/50 154/51 (mmHg) O2 Sat by Pulse 95 99 Oximetry 10/02/17 08:48 Temperature Pulse Rate Respiratory 18 Rate Blood Pressure (mmHg) O2 Sat by Pulse Oximetry Oxygen Devices in Use Now: Nasal Cannula Appearance: alert, awake sitting in the chair, appears comfortable Eyes: No Scleral Icterus, PERRLA Ears/Nose/Mouth/Throat: Clear Oropharnyx, Mucous Membranes Moist Neck: NL Appearance and Movements; NL JVP, Trachea Midline Respiratory: Symmetrical Chest Expansion and Respiratory Effort, Clear to Auscultation Cardiovascular: NL Sounds; No Murmurs; No JVD, RRR Abdominal: NL Sounds; No Tenderness; No Distention Extremities: No Edema, No Clubbing, Cyanosis Skin: No Rash or Ulcers Neurological: Alert and Oriented x 3 Nutrition: Taking PO's Result Diagrams: 09/30/17 05:14 09/30/17 05:14 Additional Lab and Data: Microbiology and Other Data: Microbiology 09/28/17 20:15 Urine Culture - Preliminary Urine Enterococcus Faecalis 09/28/17 19:50 Nasal Screen MRSA (PCR)([facility]IVIANE) - Final Nasal Mrsa Negative Assess/Plan/Problems-Billing Assessment: Ms. Sol is a 56yo female with a PMH significant for MoyaMoya, DMII, Weakness , carotid disease, Bipolar I disorder, Borderline personality disorder who presents after repeated falls due to underlying weakness and having taken 10 xanax due to unresolved anxiety. - Patient Problems (1) Falls Current Visit: Yes Status: Acute Comment: - Patient had 3 falls in the course of 2 days for which she came to the ED twice. - Patient significantly weak at baseline and feels like her right leg was giving out and she had difficulty standing to get out of bed. - Patient unable to function safetly at home with current functional status. - Pateint agreeable to placement for rehab. Plan for rehab was discussed with patient and her daughter. Daughter is in agreement with plan for rehab. - Patient and family would like to go to [facility] if possible. continues to be agreeable to going to short term rehab (2) Seizure disorder Current Visit: Yes Status: Acute Code(s): G40.909 - EPILEPSY, UNSP, NOT INTRACTABLE, WITHOUT STATUS EPILEPTICUS SNOMED Code(s): 659351970 Comment: - Pateint has a history of partial seizures. - Keppra level 19.2 within therapeutic range. - Continue Keppra. (3) UTI (urinary tract infection) Current Visit: Yes Status: Acute Comment: - Intermittent dysuria - Enterococcus fecalis > 100K - Continue Ceftriaxone with the plan for amoxicillin at discharge. 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 Code(s): F32.8 - OTHER DEPRESSIVE EPISODES * DO NOT USE * SNOMED Code(s): 979068444 Comment: - Continue on Depakote and wellbutrin (5) FEN Current Visit: No Status: Acute Priority: High Comment: Consistent Carb Diet (6) Full code status Current Visit: Yes Status: Acute Code(s): Z78.9 - OTHER SPECIFIED HEALTH STATUS SNOMED Code(s): 916327525 (7) DVT prophylaxis Current Visit: Yes Status: Acute Code(s): UOK5124 - SNOMED Code(s): 092981087 Comment: - Heparin SubQ (8) Diarrhea Current Visit: Yes Status: Acute Code(s): R19.7 - DIARRHEA, UNSPECIFIED SNOMED Code(s): 76471736 Comment: will stop colace and senna Status and Disposition: Inpatient. Plan for discharge to short term rehab.
[2017-10-02] MEDS: cefTRIAXone(*) 1 GM in NS 0.9% 50 ML* 50 ML IVPB SCH (16:03)
[2017-10-02] MEDS: Atorvastatin* 40 MG TAB PO SCH (18:23)
[2017-10-02] MEDS: Ondansetron TAB* 4 MG PO PRN (18:23)
[2017-10-02] MEDS: ASENAPINE 10 MG SL SCH (21:20)
[2017-10-02] MEDS: Diltiazem CD CAP* 120 MG PO SCH (21:21)
[2017-10-02] MEDS: Lisinopril TAB* 10 MG PO SCH (21:21)
[2017-10-02] MEDS: Gabapentin CAP(*) 300 MG PO SCH (21:21)
[2017-10-02] MEDS: Famotidine TAB* 20 MG PO SCH (21:22)
[2017-10-02] MEDS: Aspirin TAB* 325 MG PO SCH (21:22)
[2017-10-02] MEDS: PTO: Liraglutide (NF) 18 MG/3 ML SUBCUT SCH (21:25)
[2017-10-03] MEDS: Heparin VIAL(*) 5000 UNITS/ML VIAL (FIVE THOUSAND) SUBCUT SCH ×2 (05:46→13:46)
[2017-10-03] MEDS: Omeprazole CAP* 20 MG PO SCH (08:32)
[2017-10-03] MEDS: Insulin LISPRO* 1 UNITS UNIT SUBCUT SCH ×2 (08:32→12:05)
[2017-10-03] MEDS: Carvedilol TAB* 6.25 MG PO SCH (08:32)
[2017-10-03] MEDS: buPROPion TAB* 100 MG PO SCH (08:33)
[2017-10-03] MEDS: levETIRAcetam TAB* 500 MG PO SCH (08:33)
[2017-10-03] MEDS: Divalproex ER TAB(*) 500 MG PO SCH (08:33)
[2017-10-03] MEDS: CMCS: Desvenlafaxine (NF) 50 MG TAB PO SCH (08:34)
[2017-10-03] MEDS: GLIMEPIRIDE 2 MG PO SCH (08:34)
--- NOTE | 2017-10-03 11:23 | PN ---
Subjective Date of Service: 10/03/17 Interval History: Patient reports that she is feeling stronger today. States that she was able to ambulate in the hallway with a wheeled walker today. Denies N/V/D or abd pain. Denies chest pain or shortness of breath. Reports no further episodes of diarrhea after colace and senna was stopped. Family History: Unchanged from Admission Social History: Unchanged from Admission Past Medical History: Unchanged from Admission Objective Active Medications: Acetaminophen (Tylenol Tab*) 650 mg PO Q6H PRN PRN Reason: PAIN Acetaminophen/Butalbital/Caffeine (Fioricet Tab*) 1 tab PO Q6H PRN PRN Reason: MIGRAINE HEADACHE Last Admin: 10/02/17 05:55 Dose: 1 tab Albuterol (Ventolin 2.5 Mg/3 Ml Neb.Lilibeth*) 2.5 mg INH Q4H PRN PRN Reason: SOB/WHEEZING Asenapine (Saphris(Nf)) 10 mg SL BEDTIME [facility] Last Admin: 10/02/17 21:20 Dose: 10 mg Aspirin (Aspirin Tab*) 325 mg PO BEDTIME [facility] Last Admin: 10/02/17 21:22 Dose: 325 mg Atorvastatin Calcium (Lipitor*) 40 mg PO 1700 [facility] Last Admin: 10/02/17 18:23 Dose: 40 mg Bupropion HCl (Wellbutrin Tab*) 200 mg PO DAILY [facility] Last Admin: 10/03/17 08:33 Dose: 200 mg Carvedilol (Coreg Tab*) 6.25 mg PO BID [facility] Last Admin: 10/03/17 08:32 Dose: 6.25 mg Desvenlafaxine Succinate (Pristiq (Nf)) 100 mg PO QAM [facility] Last Admin: 10/03/17 08:34 Dose: 100 mg Dextrose (D50w Syringe 50 Ml*) 12.5 gm IV PUSH .FOR FS < 60 - SS PRN PRN Reason: FS < 60 Diltiazem HCl (Cardizem Cd Cap*) 120 mg PO BEDTIME [facility] Last Admin: 10/02/17 21:21 Dose: 120 mg Divalproex Sodium (Depakote Er Tab(*)) 1,000 mg PO BID [facility] Last Admin: 10/03/17 08:33 Dose: 1,000 mg Famotidine (Pepcid Tab*) 40 mg PO BEDTIME [facility] PRN Reason: Protocol Last Admin: 10/02/17 21:22 Dose: 40 mg Gabapentin (Neurontin Cap(*)) 300 mg PO BEDTIME [facility] Last Admin: 10/02/17 21:21 Dose: 300 mg Glimepiride (Glimepiride (Nf)) 4 mg PO DAILY [facility] PRN Reason: Protocol Last Admin: 10/03/17 08:34 Dose: 4 mg Heparin Sodium (Porcine) (Heparin Vial(*)) 5,000 units SUBCUT Q8HR [facility] Last Admin: 10/03/17 05:46 Dose: 5,000 units Hydralazine HCl (Apresoline Iv*) 5 mg IV SLOW PU Q6H PRN PRN Reason: SYSTOLIC BP GREATER THAN: Ceftriaxone Sodium 1 gm/ (Sodium Chloride) 50 mls @ 200 mls/hr IVPB Q24H [facility] Last Admin: 10/02/17 16:03 Dose: 200 mls/hr Insulin Human Lispro (Humalog*) 0 units SUBCUT ACHS [facility] PRN Reason: Protocol Last Admin: 10/03/17 08:32 Dose: 3 unit Levetiracetam (Keppra Tab*) 500 mg PO QAM [facility] Last Admin: 10/03/17 08:33 Dose: 500 mg Levetiracetam (Keppra Tab*) 1,000 mg PO 2100 [facility] Last Admin: 10/02/17 21:21 Dose: 1,000 mg Lisinopril (Prinivil Tab*) 20 mg PO BEDTIME [facility] Last Admin: 10/02/17 21:21 Dose: 20 mg Omeprazole (Prilosec Cap*) 20 mg PO QAM [facility] Last Admin: 10/03/17 08:32 Dose: 20 mg Ondansetron HCl (Zofran Tab*) 4 mg PO Q6H PRN PRN Reason: NAUSEA/VOMITING Last Admin: 10/02/17 18:23 Dose: 4 mg Vital Signs - 8 hr 10/03/17 10/03/17 07:17 07:47 Temperature 97.5 F Pulse Rate 65 Respiratory 16 16 Rate Blood Pressure 139/48 (mmHg) O2 Sat by Pulse 96 98 Oximetry Oxygen Devices in Use Now: Nasal Cannula Appearance: awake and alert, seems positive this AM. appears comfortable sitting on the edge of the bed. Eyes: No Scleral Icterus, PERRLA Ears/Nose/Mouth/Throat: Clear Oropharnyx, Mucous Membranes Moist Neck: NL Appearance and Movements; NL JVP, Trachea Midline Respiratory: Symmetrical Chest Expansion and Respiratory Effort, Clear to Auscultation Cardiovascular: NL Sounds; No Murmurs; No JVD, RRR, No Edema Abdominal: NL Sounds; No Tenderness; No Distention Extremities: No Edema, No Clubbing, Cyanosis Skin: No Rash or Ulcers Neurological: Alert and Oriented x 3, NL Sensation, NL Muscle Strength and Tone Nutrition: Taking PO's Result Diagrams: 09/30/17 05:14 09/30/17 05:14 Additional Lab and Data: Microbiology and Other Data: Microbiology 09/28/17 20:15 Urine Culture - Preliminary Urine Enterococcus Faecalis 09/28/17 19:50 Nasal Screen MRSA (PCR)(VIVIANE) - Final Nasal Mrsa Negative Assess/Plan/Problems-Billing Assessment: Ms. Sol is a 56yo female with a PMH significant for MoyaMoya, DMII, Weakness , carotid disease, Bipolar I disorder, Borderline personality disorder who presents after repeated falls due to underlying weakness and having taken 10 xanax due to unresolved anxiety. Would like to go home today. PT evaluated the patient and sign off for acute care rehab, stating that she was able to ambulate unassisted with a wheeled walker. Psychiatrist saw and evaluated deemed stable and safe to return home. - Patient Problems (1) Falls Current Visit: Yes Status: Acute Comment: - Patient had 3 falls in the course of 2 days for which she came to the ED twice. - Patient weak at baseline, PT consult today shows improvement and pt was able to perform required activites unassisted. Ambulated in the hallway with wheeled walker unasssisted. - Patient feels she will be safe at home with daughters and assistance from her aides. I will setup [facility] consult for aides and in home PT. (2) Seizure disorder Current Visit: Yes Status: Acute Code(s): G40.909 - EPILEPSY, UNSP, NOT INTRACTABLE, WITHOUT STATUS EPILEPTICUS SNOMED Code(s): 701604440 Comment: - Pateint has a history of partial seizures. - Keppra level 19.2 within therapeutic range. - Continue Keppra. (3) UTI (urinary tract infection) Current Visit: Yes Status: Acute Comment: - Intermittent dysuria - Enterococcus fecalis > 100K - Continue Ceftriaxone with the plan for amoxicillin at discharge. 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 - Contiue outpatient therapy with [facility]/ mental health (5) FEN Current Visit: No Status: Acute Priority: High Comment: Consistent Carb Diet (6) Full code status Current Visit: Yes Status: Acute Code(s): Z78.9 - OTHER SPECIFIED HEALTH STATUS SNOMED Code(s): 522755137 (7) DVT prophylaxis Current Visit: Yes Status: Acute Code(s): IAN4129 - SNOMED Code(s): 602321933 Comment: - Heparin SubQ (8) Diarrhea Current Visit: Yes Status: Acute Code(s): R19.7 - DIARRHEA, UNSPECIFIED SNOMED Code(s): 11913069 Comment: will stop colace and senna diarrhea has resolved Status and Disposition: Will discharge home with VNA services and in home PT.
[2017-10-03 11:36] VITALS: BP 163/73
--- NOTE | 2017-10-03 12:16 | CONSULT ---
Identification - Patient Identification Reason for Psychiatric Consultation: Patient Distress -: Patient is a 56 year old, F admitted on 09/30/17. - MHU Identification Employment Status: Disabled Hx Psychiatric Hospitalization: Yes Prior Psychiatric Diagnosis: Bipolar DO, Type I History - Objective HPI: Psychiatry is asked to see this 56 y.o. single, white female with a history of bipolar affective DO and multiple medical and neurological comorbidities, currently hospitalized on the medical service secondary to several recent falls , due to concerns that she overutilized alprazolam 1mg tabs, to the tune of approximately 10, just prior to admission. The patient, who is well known to our service secondary to several previous [facility] hospitalizations (last in 06/18), reports that she was anxious because [facility] was closed over the Holiday weekend and the Holidays are stressful for her in general. She denies SI and would like to be placed ultimately on a less abusable anxiolytic. She was just transitioned from Dr. Sallie Weiss's service to the [facility] program at [facility] and has her next appointment there on October 09. She feels safe enough for discharge and has at home PT/OT and nursing services to help get her strength back. She contracts for safety and denies thoughts/urges to over- utilize alprazolam. Lab Results: Laboratory Tests 09/30/17 09/30/17 09/30/17 11:54 16:52 21:17 POC Glucose (mg/dL) 222 H 175 H 205 H 10/01/17 10/01/17 10/01/17 07:53 12:14 17:05 POC Glucose (mg/dL) 172 H 180 H 189 H 10/01/17 10/02/17 10/02/17 20:21 07:36 12:01 POC Glucose (mg/dL) 185 H 159 H 205 H 10/02/17 10/02/17 10/03/17 17:28 21:07 07:21 POC Glucose (mg/dL) 191 H 155 H 171 H 10/03/17 11:49 POC Glucose (mg/dL) 232 H Exam Appearance: Obese Hygiene: Normal Grooming: Fairly Well Kept Psychomotor Activities: Normal Exhibits Abnormal Movement: No Attitude and Relatedness: Cooperative Eye Contact: Good - Speech Quality: Unpressured Latencies: Normal Quantity: Appropriate Patient's Decription of Mood: "Okay" Observed Affect: Fair Affect Consistent with: Euthymia Patient's Thought Process: Coherent Thought Content: No Passive Wish, No Suicidal Planning, No Homicidal Ideation, No Paranoid Ideation Experiencing Hallucinations: No, Sensorium is Clear Type of Hallucinations: Visual: No, Auditory: No, Command: No Level of Consciousness: Alert Orientation: Yes Orientated to Person, No Intact, No Orientated to Time, No Orientated to Place Impulse Control: Tenuous Insight and Judgement: Fair Impression - Impression Clinical Impression: 56 y.o. single, white female with a history of bipolar affective DO and multiple medical and neurological comorbidities, currently hospitalized on the medical service secondary to several recent falls, due to concerns that she over -utilized alprazolam 1mg tabs, to the tune of approximately 10, just prior to admission. Inpatient DSM-IV Dx: Bipolar DO, Type I, MRE depressed, Mild Merits Inpatient Hospitalization: No Problem List - MHU Problems Type of Problem: Mood Status of Problem: Resolved Plan - Treatment Plan Treatment Plan: The patient is stable on her current medication regimen. She is willing to consider switching alprazolam to something less sedating and strong. She is referred to Dr. Willian Gaitan, the psychiatrist at the [facility] program, where she will follow up next October 09. She does not warrant inpatient psychiatric treatment at this time Continued Medication Management: Continue Outpt Medication Medications: Current Medications Acetaminophen (Tylenol Tab*) 650 mg PO Q6H PRN PRN Reason: PAIN Acetaminophen/Butalbital/Caffeine (Fioricet Tab*) 1 tab PO Q6H PRN PRN Reason: MIGRAINE HEADACHE Last Admin: 10/02/17 05:55 Dose: 1 tab Albuterol (Ventolin 2.5 Mg/3 Ml Neb.Lilibeth*) 2.5 mg INH Q4H PRN PRN Reason: SOB/WHEEZING Asenapine (Saphris(Nf)) 10 mg SL BEDTIME [facility] Last Admin: 10/02/17 21:20 Dose: 10 mg Aspirin (Aspirin Tab*) 325 mg PO BEDTIME [facility] Last Admin: 10/02/17 21:22 Dose: 325 mg Atorvastatin Calcium (Lipitor*) 40 mg PO 1700 [facility] Last Admin: 10/02/17 18:23 Dose: 40 mg Bupropion HCl (Wellbutrin Tab*) 200 mg PO DAILY [facility] Last Admin: 10/03/17 08:33 Dose: 200 mg Carvedilol (Coreg Tab*) 6.25 mg PO BID [facility] Last Admin: 10/03/17 08:32 Dose: 6.25 mg Desvenlafaxine Succinate (Pristiq (Nf)) 100 mg PO QAM [facility] Last Admin: 10/03/17 08:34 Dose: 100 mg Dextrose (D50w Syringe 50 Ml*) 12.5 gm IV PUSH .FOR FS < 60 - SS PRN PRN Reason: FS < 60 Diltiazem HCl (Cardizem Cd Cap*) 120 mg PO BEDTIME [facility] Last Admin: 10/02/17 21:21 Dose: 120 mg Divalproex Sodium (Depakote Er Tab(*)) 1,000 mg PO BID [facility] Last Admin: 10/03/17 08:33 Dose: 1,000 mg Famotidine (Pepcid Tab*) 40 mg PO BEDTIME [facility] PRN Reason: Protocol Last Admin: 10/02/17 21:22 Dose: 40 mg Gabapentin (Neurontin Cap(*)) 300 mg PO BEDTIME [facility] Last Admin: 10/02/17 21:21 Dose: 300 mg Glimepiride (Glimepiride (Nf)) 4 mg PO DAILY [facility] PRN Reason: Protocol Last Admin: 10/03/17 08:34 Dose: 4 mg Heparin Sodium (Porcine) (Heparin Vial(*)) 5,000 units SUBCUT Q8HR [facility] Last Admin: 10/03/17 05:46 Dose: 5,000 units Hydralazine HCl (Apresoline Iv*) 5 mg IV SLOW PU Q6H PRN PRN Reason: SYSTOLIC BP GREATER THAN: Ceftriaxone Sodium 1 gm/ (Sodium Chloride) 50 mls @ 200 mls/hr IVPB Q24H [facility] Last Admin: 10/02/17 16:03 Dose: 200 mls/hr Insulin Human Lispro (Humalog*) 0 units SUBCUT ACHS [facility] PRN Reason: Protocol Last Admin: 10/03/17 12:05 Dose: 6 unit Levetiracetam (Keppra Tab*) 500 mg PO QAM [facility] Last Admin: 10/03/17 08:33 Dose: 500 mg Levetiracetam (Keppra Tab*) 1,000 mg PO 2100 [facility] Last Admin: 10/02/17 21:21 Dose: 1,000 mg Lisinopril (Prinivil Tab*) 20 mg PO BEDTIME [facility] Last Admin: 10/02/17 21:21 Dose: 20 mg Omeprazole (Prilosec Cap*) 20 mg PO QAM [facility] Last Admin: 10/03/17 08:32 Dose: 20 mg Ondansetron HCl (Zofran Tab*) 4 mg PO Q6H PRN PRN Reason: NAUSEA/VOMITING Last Admin: 10/02/17 18:23 Dose: 4 mg - Discharge Plan Discharge Plan: [facility]
[2017-10-03] MEDS: Ondansetron TAB* 4 MG PO PRN (14:03)
[2017-10-03] MEDS: cefTRIAXone(*) 1 GM in NS 0.9% 50 ML* 50 ML IVPB SCH (14:03)
--- NOTE | 2017-10-04 03:33 | DS ---
CC: Ang Zelaya MD * DISCHARGE SUMMARY: DATE OF ADMISSION: 09/28/17 DATE OF DISCHARGE: 10/03/17 ATTENDING PHYSICIAN: Yana Loya MD * (dictation provided by Ayla Navarro NP). PRIMARY CARE PROVIDER: Ang Zelaya MD. PRIMARY DIAGNOSES: 1. Falls. 2. Seizure disorder. 3. Diabetes type 2. 4. Urinary tract infection. SECONDARY DIAGNOSES: 1. Moyamoya. 2. Hyperlipidemia. 3. Hypertension. 4. Bipolar. STUDIES COMPLETED WHILE IN THE HOSPITAL: She had an MRI of the brain, which showed on 09/28/17: 1. No evidence for acute intracranial abnormalities. 2. 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 3. Mild atrophy and findings most consistent with mild chronic small vessel ischemic changes. She also had a knee x-ray on 09/28/17, right knee injury, and radiologist's impression: No evidence for fracture. DISCHARGE MEDICATIONS: There were no new medications. She will continue on home medications. She will continue on: 1. Keppra 1000 mg p.o. q.p.m. and Keppra 500 mg p.o. q.a.m. 2. Wellbutrin 200 mg p.o. daily. 3. Ranitidine 300 mg p.o. at bedtime. 4. Zofran 4 mg as needed every 6 hours. 5. Multivitamin. 6. Lisinopril 20 mg at bedtime. 7. Victoza 1.8 mg subcu p.m. 8. Prevacid 30 mg p.o. q.a.m. 9. Glimepiride 4 mg p.o. daily. 10. Gabapentin 300 mg p.o. at bedtime. 11. Docusate 100 mg p.o. b.i.d. 12. Depakote ER 1000 mg p.o. b.i.d. 13. Diltiazem 120 mg p.o. at bedtime. 14. Pristiq 100 mg p.o. q.a.m. 15. Carvedilol 6.25 mg p.o. b.i.d. 16. Calcium 500 mg p.o. b.i.d. 17. Fioricet 1 tablet every 6 hours as needed. 18. Atorvastatin 40 mg every evening. 19. Aspirin 325 at bedtime. 20. Saphris 10 mg at bedtime. 21. Alprazolam 1 mg p.o. t.i.d. HISTORY OF PRESENT ILLNESS/HOSPITAL COURSE: Ms. 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 The first fall happened 1 day prior to her admission when she was trying to get out of bed, the patient felt weak and fell down hitting her right knee. The patient helped up and then she got anxious and took 4 of her Xanax and 4 more of her Xanax and then 2 more of her Xanax and then on the day of admission she had a fall in the evening out of bed again and in the bathroom and hit her head on the wall. The patient states that she felt like she could not move her right knee, so she was admitted into the hospital for frequent falls and over ingestion of Xanax. While in the emergency room, she had an MRI of her head. MRI of the brain showed no acute process. She had an x-ray of her right knee which was negative for fracture. Routine lab work was obtained and within normal limits other than her glucose has been running high anywhere from 140s to 225. While in the hospital, the patient was monitored. She did have a urinalysis and culture. The urine culture was positive for Enterococcus and she was given a 5-day course of ceftriaxone while she was in the hospital. Nasal swabs were negative for MRSA. She did have 1 bout of diarrhea and her Senna and Colace were held, which resolved the diarrhea. She participated with physical therapy and regained her strength. Today, she was able to walk with a wheeled walker around the entire floor she has been residing on without assistance. She feels that her strength is back to baseline. Given her increased strength and ability to ambulate and transfer from bed to chair without assistance, PT signed off on acute care PT service, deeming her safe to return home. A plan for her to return home was discussed with the patient and her 2 daughters who were in agreement that she would be safe to return home. The patient was advised that she must walk with her walker while she is at home and must wear her oxygen. I also strongly advised her to only take her Xanax prescription as prescribed by her doctor. She is in agreement to that. The patient states that she feels comfortable returning home. Ms. Sol is stable for discharge home today. The patient was seen and evaluated by Dr. Coleman from Psychiatry who deemed her safe to return home. PHYSICAL EXAMINATION: Vital signs are as follows: Temperature was 98.4, heart rate was 73, respirations 16, O2 saturation was 92% on 2 L. Blood pressure was 163/73. DISCHARGE PLAN: Ms. Sol will be discharged back to home. Activity as tolerated with a wheeled walker when ambulating and transferring. She should resume a carbohydrate consistent diet. She will resume all of her home medications for her underlying illnesses. She will have no further treatment for the UTI as she was treated in the hospital with a 5-day course of ceftriaxone. The patient has a followup appointment with outpatient mental health. On Monday, she was instructed to keep that appointment. She also has appointment with [facility] and therapy there. She was advised to keep those appointments. We have sent a referral to [facility] for inhouse PT and aid service. For followup, the patient should follow up with her primary care doctor, Dr. Carissa Zelaya in 4 to 7 days. The patient was advised to return to the emergency room if she had any difficulty ambulating or became unsafe at home. This is a summary of a complex medical history and hospital stay. For further details, please see the entire medical record. TIME SPENT: Time spent for this discharge was approximately 60 minutes, greater than half the time was spent with the patient discussing discharge plans and instructions. CONDITION ON DISCHARGE: Stable. AYLA BIA, [employer] [id number]/[facility] #: [id number] SAURAV
== END 2017-10-03 15:25 | disposition home or self-care (01) | DRG 918 ==
LOC: ED 12:29 → SSU 17:05 → OBSVTOIN 09-30 08:35 → SSU 10-02 09:41
PROVIDERS: ADMIT Hospitalist; ATTEND Internal Medicine
DX: T42.4X1A Poisoning by benzodiazepines, accidental (unintentional), initial encounter (principal); I67.5 Moyamoya disease; I11.0 Hypertensive heart disease with heart failure; I50.9 Heart failure, unspecified; E66.01 Morbid (severe) obesity due to excess calories; Z99.81 Dependence on supplemental oxygen; B95.2 Enterococcus as the cause of diseases classified elsewhere; E11.9 Type 2 diabetes mellitus without complications; E78.5 Hyperlipidemia, unspecified; F31.31 Bipolar disorder, current episode depressed, mild; N39.0 Urinary tract infection, site not specified; Z68.42 Body mass index [BMI] 45.0-49.9, adult; F31.9 Bipolar disorder, unspecified; R53.1 Weakness; Y92.009 Unspecified place in unspecified non-institutional (private) residence as the place of occurrence of the external cause; X58.XXXA Exposure to other specified factors, initial encounter; W18.30XA Fall on same level, unspecified, initial encounter; G40.909 Epilepsy, unspecified, not intractable, without status epilepticus; F60.89 Other specific personality disorders; J44.9 Chronic obstructive pulmonary disease, unspecified; Z79.84 Long term (current) use of oral hypoglycemic drugs; Z79.899 Other long term (current) drug therapy; Z88.8 Allergy status to other drugs, medicaments and biological substances; Z83.3 Family history of diabetes mellitus; Z80.9 Family history of malignant neoplasm, unspecified; Z87.891 Personal history of nicotine dependence; Z79.82 Long term (current) use of aspirin
CPT/HCPCS: 36415; 70450; 70551; 71010; 80048; 80053; 80164; 80177; 80320; 80329; 81003; 81015; 82550; 83605; 83735; 84100; 84443; 85025; 85060; 87077; 87086; 87186; 87641; 93005; 94760; 96360; 99283; A9270-GY; G0480; G8978-GP-CK; G8979-GP-CI; G8980-GP-CK; G8987-GO-CK; G8988-GO-CI; G8989-GO-CI; J0696; J1644; J3475

== ENCOUNTER 2017-09-29 14:00 | Inpatient (IN) | payer MEDICARE, MEDICAID ==
[2017-10-27] MEDS ORDERED: diPHENhydraMINE PO* 25 MG PO PRN (18:07)
[2017-10-27] MEDS ORDERED: LORazepam INJ* 2 MG/ML 1 ML VIAL IV PRN (18:07)
[2017-10-27] MEDS ORDERED: Ondansetron TAB* 4 MG PO PRN (18:12)
[2017-10-27] MEDS ORDERED: ALBUTEROL MDI INH PRN (18:12)
--- NOTE | 2017-10-27 18:20 | ADMNOTE ---
Admission Note HPI - HPI Handedness: H&P DOS 10/27/17 right-handed History of Present Illness: Ms. Sol is a 56 year old woman with multiple medical problems including diabetes, bipolar disorder with suicidal ideations and recent suicide attempt as well as Atkins Atkins disease s/p bilateral EC-IC bypass. She had her right bypass in October 2016 and the left in December 2016. She reports having a "stroke on the table" during her left bypass and waking up with aphasia, but also with left sided weakness. Prior to being diagnosed with atkins atkins, she had several TIAs which she reports made her right side weak for days at a time. Since November 2016, she has had two types of events which have been questioned to be seizures. The first type of event wakes her up out of sleep. She will wake up with shaking of her whole body, but the left side shaking more. Just after she wakes up she notices a right sided headache, then begins shaking. She retains awareness. After the event is over, she feels sleepy and weak on the left side for hours. Before she started Keppra, these were happening 2 to 3 times per week. Now, about once every 2 weeks, though she had one this week. The second type of episode is primarily characterized by "losing words". She will not be able to get her words out and has word-finding difficulty. Her left side will shake with these. They last a few minutes and occur 1 to 2 times per week. She feels tired after. She thinks Keppra has helped these as well. She was placed on levetiracetam for a short period of time surrounding both of her bypasses, but came off of it in January 2017. She was restarted on Keppra in the fall (she believes) and the dose has been progressively increased to 1000mg BID. However, she has been feeling suicidal over the past couple of months and had a suicide attempt recently where she took ten 1mg Xanax and was admitted to the medical floor. She has a history of suicidal ideation with her bipolar disorder in the past, but cannot remember the last time she had a suicide attempt. In addition, she wakes up each day now thinking about what she could take to "go to sleep and not wake up", which was never this big of a problem for her in the past. Her kids have locked away all of her medications now, though she is still reportedly prescribed Xanax 1mg TID. She is on Depakote 1000mg BID for her bipolar disorder. She also takes gabapentin at night for sleep. Dr Weiss is her psychiatrist though she just got into the [facility] program so she will start seeing Dr Gaitan. Epilepsy Risk Factors: stroke, atkins atkins disease PNEA Risk Factors: h/o bipolar disorder PMH/Surg Hx/FS Hx/Imm Hx Previously Healthy: No Endocrine/Hematology History: Reports: Hx Diabetes - DM II, Other Endocrine/ Hematological Disorders Denies: Hx Thyroid Disease, Hx Anemia, Hx Unexplained Bleeding Cardiovascular History: Reports: Hx Congestive Heart Failure, Hx Hypercholesterolemia, Hx Hypertension Denies: Hx Aneurysm, Hx Angina, Hx Angioplasty, Hx Auto Implanted Cardiovert Defib, Hx Cardiac Arrest, Hx Cardiomegaly, Hx Congenital Heart Disease, Hx Coronary Artery Disease, Hx Deep Vein Thrombosis, Hx Embolism, Hx Hypotension, Hx Myocardial Infarction, Hx Pacemaker/ICD, Hx Peripheral Vascular Disease, Hx Rheumatic Fever, Hx Syncope, Hx Valvular Heart Disease, Other Cardiovascular Problems/Disorders Respiratory History: Reports: Hx Asthma, Hx Chronic Bronchitis, Hx Chronic Obstructive Pulmonary Disease (COPD) - 2L O2 at home, Hx Pneumonia, Hx Sleep Apnea - CPAP in room for use, Other Respiratory Problems/Disorders - PNEUMONIA IN 2001 Denies: Hx Cystic Fibrosis, Hx Lung Cancer, Hx Pleural Effusion, Hx Pulmonary Edema, Hx Pulmonary Embolism, Hx Seasonal Allergies GI History: Reports: Hx Gastroesophageal Reflux Disease, Other GI Disorders - "sphincter in stomach not working" Denies: Hx Cirrhosis, Hx Crohn's Disease, Hx Diverticulosis, Hx Gall Bladder Disease, Hx Gastrointestinal Bleed, Hx Hiatal Hernia, Hx Irritable Bowel, Hx Jaundice, Hx Obstructive Bowel, Hx Ileostomy, Hx Pyloric Stenosis, Hx Ulcer History: Reports: Hx Acute Renal Failure, Hx Renal Disease Denies: Hx Benign Prostatic Hyperplasia, Hx Chronic Renal Failure, Hx Dialysis, Hx Kidney Infection, Hx Kidney Stones, Other Problems/Disorders Musculoskeletal History: Reports: Hx Arthritis, Hx Back Problems, Hx Orthopedic Injury, Hx Scoliosis Sensory History: Reports: Hx Contacts or Glasses, Hx Vision Problem Denies: Hx Cataracts, Hx Eye Injury, Hx Hearing Aid, Hx Hearing Problem, Other Sensory Impairments Opthamlomology History: Reports: Hx Contacts or Glasses, Hx Vision Problem Denies: Hx Cataracts, Hx Eye Injury, Other Sensory Impairments Neurological History: Reports: Hx Headaches, Hx Migraine, Hx Nerve Disease, Hx Seizures, Hx Transient Ischemic Attacks (TIA), Other Neuro Impairments/ Disorders - Hx of 2 TIA. Hx moyamoya disease. 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 Hx Chemotherapy: No Hx Radiation Therapy: No Hx Palliative Cancer Treatment: No - Surgical History Surgery Procedure, Year, and Place: moyamoya surgery 01/02/2017 Hx Anesthesia Reactions: No - Immunization History Date of Tetanus Vaccine: unk Date of Influenza Vaccine: 06/2017 Infectious Disease History: No Infectious Disease History: Reports: Hx Clostridium Difficile - 1.5 years ago Denies: Hx Hepatitis, Hx Human Immunodeficiency Virus (HIV), Hx of Known/ Suspected MRSA, Hx Shingles, Hx Tuberculosis, Hx Known/Suspected VRE, Hx Known/ Suspected VRSA, History Other Infectious Disease, Traveled Outside the [place] in Last 30 Days - Family History Known Family History: Positive: Cardiac Disease, Other - bipolar disorder; alcohol abuse - Social History Alcohol Use: None Alcohol Amount: once/year Hx Substance Use: No Substance Use Type: Reports: None Hx Tobacco Use: Yes Smoking Status (MU): Former Smoker Type: Cigarettes Amount Used/How Often: quit in 2004 Have You Smoked in the Last Year: No EMU Exam - Exam Physical/Neurological Exam: Physical Exam: General: Well appearing in no acute distress. Morbidly obese Eyes: normal conjunctiva, pupils were equal and reactive. Neck: supple, bilateral carotid bruits ENT: atraumatic, normal oropharynx, edentulous Pulmonary: clear to auscultation, good respiratory effort Cardiac: regular rate and rhythmic, no murmurs/rubs/gallops, pulses palpable MSK: no extremity deformities Derm: no rashes or lesions Neurological Exam: Mental Status: Awake and alert. Oriented to person, place, and time. Fluent. Comprehension intact. Affect appropriate. Cranial Nerves: Visual franco full to confrontation. Pupils were equal, round, and reactive constricting from 3mm to 2mm. Versions were full and without nystagmus. Facial musculature and sensation were symmetric. Hearing grossly intact to finger rub. Palate was upgoing bilaterally. Tongue was midline. Shoulder shrug was symmetric. Motor: Bulk and tone normal throughout. Strength is full in the RUE and RLE but there is mild weakness in the LUE and LLE versus poor effort. Pronator drift was absent. There were no abnormal movements. Sensory: Sensation to light touch intact. Romberg was deferred. Coordination: Finger to nose intact. Reflexes: 2+ throughout the upper and lower extremities except absent ankles. Gait: deferred EMU Review of Systems Review of Systems: A 12 point review of systems was completed and significantly positive for: suicidal ideations, no current plan. The remainder of the review was negative except as stated above in the HPI. 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 There is also global atrophy EMU Assessment/Plan - Assessment/Plan Assessment/Plan: Patient presents with two types of episodes: 1) nocturnal episodes of shaking associated with headache, with retained awareness with subsequent left sided weakness and 2) episodes of word-finding difficulties associated with left- sided shaking. These episodes occur in the context of a history of atkins atkins disease s/p bilateral EC-IC bypass as well as multiple other medical problems including diabetes. She is taking levetiracetam for these events and feels it has been beneficial in reducing the frequency, but she has been having increased suicidal ideation and recently took 10 Xanax and was admitted to the hospital. The differential for these events includes both epileptic and non- epileptic causes. The fact that she reports bilateral shaking with retained consciousness with her nocturnal events is unusual for seizure. In addition, she also reports language difficulties associated with left-sided shaking with her second type of event, which would be atypical for seizures for a right- handed person. The goal of the present long term care social worker video/EEG monitoring session is to characterize these events and to evaluate the EEG for epileptiform activity. Plan: Admit to the Epilepsy Service, Dr. Hylton attending terminal make up operator video EEG monitoring for the purpose of characterizing events above Seizure precautions IV lorazepam as needed for prolonged seizures > 3 minutes Home AED regimen: levetiracetam 1000mg BID. Reduce to 500mg BID. If she does indeed have epilepsy, she will need another AED as the levetiracetam may be destabilizing her psychiatric illness. Continue on other prescribed home medications. She is ok to use her own Victoza but given her impulsivity with Xanax recently, we will not leave this in her room.
[2017-10-27] MEDS ORDERED: Asenapine(NF) 10 MG TAB.SL SL SCH (21:00)
[2017-10-27] MEDS: Penicillin VK TAB* 250 MG PO SCH (21:11)
[2017-10-27] MEDS: Enoxaparin(*) 40 MG/0.4 ML SYR SUBCUT SCH (21:11)
[2017-10-27] MEDS: Lisinopril TAB* 10 MG PO SCH (21:11)
[2017-10-27] MEDS: Atorvastatin* 40 MG TAB PO SCH (21:12)
[2017-10-27] MEDS: Divalproex ER TAB(*) 500 MG PO SCH (21:12)
[2017-10-27] MEDS: Aspirin TAB* 325 MG PO SCH (21:12)
[2017-10-27] MEDS: Butalb/Acetamin/Caff TAB* 1 TAB PO PRN (21:12)
[2017-10-27] MEDS: Gabapentin CAP(*) 300 MG PO SCH (21:12)
[2017-10-27] MEDS: ALPRAZolam TAB* 0.5 MG PO SCH (21:12)
[2017-10-27] MEDS: levETIRAcetam TAB* 500 MG PO SCH (21:13)
[2017-10-27] MEDS: Carvedilol TAB* 6.25 MG PO SCH (21:13)
[2017-10-27] MEDS: Docusate CAP* 100 MG PO SCH (21:15)
[2017-10-27] MEDS: Calcium Carbonate TAB* 1250 MG (CALCIUM 500 MG) PO SCH (23:19)
[2017-10-27] MEDS: Diltiazem CD CAP* 120 MG PO SCH (23:22)
[2017-10-27] MEDS: Famotidine TAB* 20 MG PO SCH (23:22)
[2017-10-28] MEDS ORDERED: Glimepiride (NF) 2 MG TAB PO SCH (09:00)
[2017-10-28] MEDS ORDERED: Desvenlafaxine (NF) 50 MG TAB PO SCH (09:00)
[2017-10-28] MEDS: Penicillin VK TAB* 250 MG PO SCH (09:11)
[2017-10-28] MEDS: Docusate CAP* 100 MG PO SCH ×2 (09:11→21:41)
[2017-10-28] MEDS: Multivitamins/Minerals TAB PO SCH (09:12)
[2017-10-28] MEDS: Carvedilol TAB* 6.25 MG PO SCH ×2 (09:13→21:41)
[2017-10-28] MEDS: CRANBERRY PO SCH (09:13)
[2017-10-28] MEDS: Calcium Carbonate TAB* 1250 MG (CALCIUM 500 MG) PO SCH ×2 (09:14→21:41)
[2017-10-28] MEDS: buPROPion TAB* 100 MG PO SCH (09:14)
[2017-10-28] MEDS: Omeprazole CAP* 20 MG PO SCH (09:14)
[2017-10-28] MEDS: Divalproex ER TAB(*) 500 MG PO SCH ×2 (09:15→21:40)
[2017-10-28] MEDS: levETIRAcetam TAB* 500 MG PO SCH ×2 (09:15→21:41)
[2017-10-28] MEDS: ALPRAZolam TAB* 0.5 MG PO SCH ×3 (09:25→21:42)
--- NOTE | 2017-10-28 09:45 | EEG ---
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 She has two types of episodes. The first are nocturnal episodes where she wakes with a right sided headache, then has whole body shaking with retained awareness followed by feeling sleepy and having left- sided weakness. The second type of event involves word-finding difficulty and left-sided shaking. She believes levetiracetam has helped both types of events occur less frequently, but they are still occurring and she has felt increasingly suicidal. Long-term monitoring is requested to characterize these events. Introduction: INTRODUCTION: The EEG was monitored from 21 scalp electrodes. Nineteen electrodes consisted of the standard parasagittal, temporal and midline leads of the International 10 -20 system. In addition, special electrodes T1 and T2 were placed. EEG data were recorded on an [employer] system with simultaneous MPEG-4 digital video recording of patient behavior. EEG recording was in a monopolar montage with all electrodes referenced to FCz. Significant behavioral events were signaled by an event button, or putative electrical seizure events were detected by a computer program. All EEG data were reviewed in their entirety on a monitor with reconstruction of montages and adjustments of sensitivity and filtering. Simultaneous patient behavior was viewed on an adjacent monitor and correlated with the EEG. - Medications Active Medications: Acetaminophen (Tylenol Tab*) 650 mg PO Q6H PRN PRN Reason: PAIN Acetaminophen/Butalbital/Caffeine (Fioricet Tab*) 1 tab PO Q6H PRN PRN Reason: MIGRAINE HEADACHE Last Admin: 10/27/17 21:12 Dose: 1 tab Albuterol (Ventolin Hfa Inhaler*) 1 puff INH DAILY PRN PRN Reason: WHEEZING Alprazolam (Xanax Tab*) 1 mg PO TID [facility] Last Admin: 10/28/17 09:25 Dose: 1 mg Asenapine (Saphris(Nf)) 10 mg SL BEDTIME [facility] Last Admin: 10/27/17 23:21 Dose: Not Given Aspirin (Aspirin Tab*) 325 mg PO BEDTIME [facility] Last Admin: 10/27/17 21:12 Dose: 325 mg Atorvastatin Calcium (Lipitor*) 40 mg PO 1700 [facility] Last Admin: 10/27/17 21:12 Dose: 40 mg Bupropion HCl (Wellbutrin Tab*) 200 mg PO DAILY [facility] Last Admin: 10/28/17 09:14 Dose: 200 mg Calcium Carbonate (Calcium Carbonate Tab*) 1,250 mg PO BID [facility] Last Admin: 10/28/17 09:14 Dose: 1,250 mg Carvedilol (Coreg Tab*) 6.25 mg PO BID [facility] Last Admin: 10/28/17 09:13 Dose: 6.25 mg Desvenlafaxine Succinate (Pristiq (Nf)) 100 mg PO QAM [facility] Last Admin: 10/28/17 09:18 Dose: Not Given Diltiazem HCl (Cardizem Cd Cap*) 120 mg PO BEDTIME [facility] Last Admin: 10/27/17 23:22 Dose: Not Given Diphenhydramine HCl (Benadryl Po*) 25 mg PO Q6H PRN PRN Reason: ITCHING Divalproex Sodium (Depakote Er Tab(*)) 1,000 mg PO BID [facility] Last Admin: 10/28/17 09:15 Dose: 1,000 mg Docusate Sodium (Colace Cap*) 100 mg PO BID [facility] Last Admin: 10/28/17 09:11 Dose: 100 mg Enoxaparin Sodium (Lovenox(*)) 40 mg SUBCUT Q24H [facility] Last Admin: 10/27/17 21:11 Dose: 40 mg Famotidine (Pepcid Tab*) 40 mg PO BEDTIME [facility] PRN Reason: Protocol Last Admin: 10/27/17 23:22 Dose: Not Given Gabapentin (Neurontin Cap(*)) 300 mg PO BEDTIME [facility] Last Admin: 10/27/17 21:12 Dose: 300 mg Glimepiride (Glimepiride (Nf)) 4 mg PO DAILY [facility] PRN Reason: Protocol Last Admin: 10/28/17 09:18 Dose: Not Given Levetiracetam (Keppra Tab*) 500 mg PO BID [facility] Last Admin: 10/28/17 09:15 Dose: 500 mg Lisinopril (Prinivil Tab*) 20 mg PO BEDTIME [facility] Last Admin: 10/27/17 21:11 Dose: 20 mg Lorazepam (Ativan Inj*) 1 mg IV Q8H PRN PRN Reason: Seizure > 3 minutes Multivitamins/Minerals (Theragran/Minerals Tab*) 1 tab PO QAM [facility] Last Admin: 10/28/17 09:12 Dose: 1 tab Pto: (Cranberry ( Vaccinium Macrocarp [Cranberry Super Strength] 15,000 Mg) 15, 000 mg PO DAILY [facility] Last Admin: 10/28/17 09:13 Dose: 15,000 mg Non-Formulary Medication (Liraglutide (Nf) [Victoza (Nf)]) 1.8 mg SUBCUT QPM [facility] Omeprazole (Prilosec Cap*) 20 mg PO QAM [facility] Last Admin: 10/28/17 09:14 Dose: 20 mg Ondansetron HCl (Zofran Tab*) 4 mg PO Q6H PRN PRN Reason: NAUSEA/VOMITING Penicillin V Potassium (Penicillin Vk Tab*) 500 mg PO BID [facility] Stop: 10/29/17 21:00 Last Admin: 10/28/17 09:11 Dose: 500 mg - Description Background: The waking background showed appropriate organization with clearly defined anterior-posterior voltage and frequency gradients. There was a defined posterior dominant rhythm of 10 Hertz, which was symmetrical and showed normal reactivity. Anteriorly, there was the expected pattern of lower voltage and more irregular theta and beta rhythms. There is excess beta activity consistent with medication effect. There are occasional sharp waveforms mostly during drowsiness and sleep noted in the bilateral temporal regions, characterized by arciform sharp waves with a broad temporal field. These are more frequently seen on the right. They are most consistent with wickets in the setting of breach effect. The sleep background was appropriately organized with well-developed spindles and vertex waves indicative of stage 2 sleep. These sleep transients showed appropriate morphology and were bilaterally synchronous and symmetrical. Development of diffuse delta range frequencies with dropout of stage 2 architecture accompanied transition to slow wave sleep, and a lower voltage mixed frequency pattern associated with eye movements was consistent with REM sleep. During sleep, after Keppra was weaned and Depakote was decreased, there was rare delta-ranged slowing in the right temporal region maximal at T4, lasting less than a second, sometimes intermixed with sharp waveforms (e.g. 03:46 on 11/02). Intericatal Epileptiform Activity: #01 10/27: Medications: Depakote 1000mg BID, Xanax 1mg TID, levetiracetam 500mg BID starting PM 10/27. Background as described above. There are occasional wickets waveforms noted in the bilateral temporal regions, characterized by arciform sharp waves with a broad temporal field. In the left temporal region, there were also occasional isolated, high voltage spike waveforms maximal at T3, F7 and T1. These were not clearly epileptiform and may have represented isolated wickets of higher voltage secondary to breach effect. #02 10/28: Medications: Depakote 1000mg BID, Xanax 1mg TID, levetiracetam 500mg BID Background as described above except there are also prominent, occasional isolated high voltage spike waveforms maximal at T4 with a field to F8 in the right temporal region. These are also most consistent with isolated wickets of higher voltage secondary to breach. No definitive epileptiform discharges. There was significant artifact in the right posterior temporal region during the first half of the study secondary to incomplete electrode contact. #03 10/29: Medications: Depakote 1000mg BID, Xanax 1mg TID, levetiracetam 500mg in AM then stop Background as previously described with occasional left and right temporal sharp waveforms that are most likely wickets in the setting of breach. No significant changes #04 10/30: Medications: Depakote 1000mg BID, Xanax 1mg TID Background unchanged, as described above. No significant changes. #05 10/31: Medications: Depakote 1000mg in AM and 500mg in PM, Xanax 1mg TID. Background as described above. #06 11/01: Medications: Depakote 500mg BID and Xanax 1mg TID Background as described above. Ictal Activity: #01 10/27: No seizures, no patient events #02 10/28: The patient experienced an episode around 11:00 on 10/28 during a file change. When the recording was restarted, she was off-camera. She reported to the technologist that her left hand was tremoring but the technologist could not observe this outwardly. The patient experienced a second episode at 16:33, when one of her daughters pressed the event button. She said "Oh god", then indicated she felt shaky and motioned to her left arm. When the nurse came in, she reported having trouble thinking and that her left arm was shaking. There was no shaking or tremoring of the arm observable. She also indicated she had a headache. She was given a recall phrase and was able to follow commands, though did so with the left hand more slowly when asked to show 3 fingers. A few minutes later, she was only able to recall one of the two words given to her to remember. There was no change in the EEG with this event. No seizures recorded. #03 10/29: No seizures, no patient events #04 10/30: The patient experienced an event at 11:06. Her daughter pressed the button for her and the patient indicated her head hurt on the right and her left hand was shaking. The fingers of the left hand were noted to possibly be moving slightly and irregularly, but overall there was no clear shaking of the hand or arm. She remained fully oriented, able to follow commands though did so in the left arm and leg more slowly. She indicated her left foot felt numb and tingly. She was given a recall phrase and was eventually able to recall it though took a while to come up with both words. Later, the patient indicated she was having trouble speaking as well though this was not evident in review of video. There was no change in the EEG with this event. No seizures. #05 10/31: No seizures, no patient events. #06 11/01: Patient did not press the event button but reported an episode of bilateral hand shaking occurred just before rounding. Review of video demonstrated some hand movements around 10:14. She also reported she was having trouble talking during rounding, but sounded fine to examiner. No change in EEG during this time. At 11:39, she pressed the event button stating she was having shaking of all of her fingers. This was not really visible on the video. She indicated she had a right-sided headache. She was able to follow commands, given a recall phrase to remember. When asked to show 3 fingers, she seemed to be slow to do this bilaterally. About 2 minutes later her fingers were noted to be twitching slightly on the left hand. She was able to recall the 2 word recall phrase with some prompting. There was no associated EEG change. No seizures.
--- NOTE | 2017-10-28 11:09 | PN ---
Epilepsy Service Progress Note Date of Service: 10/28/17 - Subjective Patient did not have any typical events. Reports she did not sleep well. Asks if she has to stay here until she has an event. Denies feeling suicidal upon waking up this morning. - Medications Active Medications: Acetaminophen (Tylenol Tab*) 650 mg PO Q6H PRN PRN Reason: PAIN Acetaminophen/Butalbital/Caffeine (Fioricet Tab*) 1 tab PO Q6H PRN PRN Reason: MIGRAINE HEADACHE Last Admin: 10/27/17 21:12 Dose: 1 tab Albuterol (Ventolin Hfa Inhaler*) 1 puff INH DAILY PRN PRN Reason: WHEEZING Alprazolam (Xanax Tab*) 1 mg PO TID [facility] Last Admin: 10/28/17 09:25 Dose: 1 mg Asenapine (Saphris(Nf)) 10 mg SL BEDTIME [facility] Last Admin: 10/27/17 23:21 Dose: Not Given Aspirin (Aspirin Tab*) 325 mg PO BEDTIME [facility] Last Admin: 10/27/17 21:12 Dose: 325 mg Atorvastatin Calcium (Lipitor*) 40 mg PO 1700 [facility] Last Admin: 10/27/17 21:12 Dose: 40 mg Bupropion HCl (Wellbutrin Tab*) 200 mg PO DAILY [facility] Last Admin: 10/28/17 09:14 Dose: 200 mg Calcium Carbonate (Calcium Carbonate Tab*) 1,250 mg PO BID [facility] Last Admin: 10/28/17 09:14 Dose: 1,250 mg Carvedilol (Coreg Tab*) 6.25 mg PO BID [facility] Last Admin: 10/28/17 09:13 Dose: 6.25 mg Desvenlafaxine Succinate (Pristiq (Nf)) 100 mg PO QAM [facility] Last Admin: 10/28/17 09:18 Dose: Not Given Diltiazem HCl (Cardizem Cd Cap*) 120 mg PO BEDTIME [facility] Last Admin: 10/27/17 23:22 Dose: Not Given Diphenhydramine HCl (Benadryl Po*) 25 mg PO Q6H PRN PRN Reason: ITCHING Divalproex Sodium (Depakote Er Tab(*)) 1,000 mg PO BID [facility] Last Admin: 10/28/17 09:15 Dose: 1,000 mg Docusate Sodium (Colace Cap*) 100 mg PO BID [facility] Last Admin: 10/28/17 09:11 Dose: 100 mg Enoxaparin Sodium (Lovenox(*)) 40 mg SUBCUT Q24H [facility] Last Admin: 10/27/17 21:11 Dose: 40 mg Famotidine (Pepcid Tab*) 40 mg PO BEDTIME [facility] PRN Reason: Protocol Last Admin: 10/27/17 23:22 Dose: Not Given Gabapentin (Neurontin Cap(*)) 300 mg PO BEDTIME [facility] Last Admin: 10/27/17 21:12 Dose: 300 mg Glimepiride (Glimepiride (Nf)) 4 mg PO DAILY [facility] PRN Reason: Protocol Last Admin: 10/28/17 09:18 Dose: Not Given Levetiracetam (Keppra Tab*) 500 mg PO BID [facility] Last Admin: 10/28/17 09:15 Dose: 500 mg Lisinopril (Prinivil Tab*) 20 mg PO BEDTIME [facility] Last Admin: 10/27/17 21:11 Dose: 20 mg Lorazepam (Ativan Inj*) 1 mg IV Q8H PRN PRN Reason: Seizure > 3 minutes Multivitamins/Minerals (Theragran/Minerals Tab*) 1 tab PO QAM [facility] Last Admin: 10/28/17 09:12 Dose: 1 tab Pto: (Cranberry ( Vaccinium Macrocarp [Cranberry Super Strength] 15,000 Mg) 15, 000 mg PO DAILY [facility] Last Admin: 10/28/17 09:13 Dose: 15,000 mg Non-Formulary Medication (Liraglutide (Nf) [Victoza (Nf)]) 1.8 mg SUBCUT QPM [facility] Omeprazole (Prilosec Cap*) 20 mg PO QAM [facility] Last Admin: 10/28/17 09:14 Dose: 20 mg Ondansetron HCl (Zofran Tab*) 4 mg PO Q6H PRN PRN Reason: NAUSEA/VOMITING Penicillin V Potassium (Penicillin Vk Tab*) 500 mg PO BID [facility] Stop: 10/29/17 21:00 Last Admin: 10/28/17 09:11 Dose: 500 mg EMU Diagnostics - Diagnostic Most Recent Vital Signs: Vital Signs: Temp Pulse Resp BP Pulse Ox 97.4 F 76 22 119/44 100 10/28/17 07:36 10/28/17 07:36 10/28/17 09:25 10/28/17 07:36 10/27/17 17:56 Interim video-EEG long-term monitoring report: #10/27: Background demonstrates excess beta activity and PDR 10. During drowsiness and light sleep, there are wickets noted. On occasion, there are isolated spike waveforms in the left temporal region which are not definitively epileptiform and may represent isolated wickets of higher voltage. No seizures, no definitive discharges, no patient events. EMU Exam - Exam Physical/Neurological Exam: Physical Exam: General: Well appearing in no acute distress. Morbidly obese MSK: no extremity deformities Derm: no rashes or lesions Neurological Exam: Mental Status: Awake and alert. Oriented to person, place, and time. Fluent. Comprehension intact. Affect appropriate. Cranial Nerves: Versions were full and without nystagmus. Facial musculature symmetric. Hearing grossly intact to voice. Palate was upgoing bilaterally. Tongue was midline. Shoulder shrug was symmetric. Motor: Strength is full in the RUE and RLE but there is mild weakness in the LUE and LLE versus poor effort. Pronator drift was absent. There were no abnormal movements. Sensory: Sensation to light touch intact. Romberg was deferred. Coordination: not retested. Reflexes: not retested. Gait: deferred EMU Progress Note Assessment/P - Assessment/Plan Assessment: 56 year old woman with multiple medical problems including bipolar disorder with recent suicidal ideations and suicide attempt (took ten 1mg Xanax), diabetes, vascular disease, Cabrera Cabrera disease s/p EC-IC bypass and small left hemispheric stroke presenting with 2 types of episodes concerning for seizures. The first type consist of nocturnal episodes associated with headache, whole body shaking with retained awareness followed by left-sided weakness and sleepiness. The second type consists of word-finding difficulties associated with left-sided shaking followed by sleepiness. She feels both of these episodes occurred with reduced frequency compared to baseline on levetiracetam but has been having increased suicidal thoughts. Long-term monitoring is requested to evaluate for epileptiform abnormalities and to characterize events. The differential includes epileptic seizures but the description of events is unusual for epileptic seizures for several reasons as stated in the H& P. Other potential etiologies include psychogenic non-epileptic attacks. Not felt to be related to ischemia by her neurosurgical team. I clarified with patient the voluntary nature of this admission but reiterated that the goal is stay until spells are recorded to help guide treatment. No typical events recorded yet. Plan: * Continue care home video EEG monitoring to capture typical episodes * Seizure precautions * lorazepam 1mg IV for seizure >3 minutes * continue home meds including Depakote 1000mg BID, Xanax 1mg TID and gabapentin 300mg QHS * home AED: levetiracetam 1000mg BID. Continue 500mg BID today and then will stop after AM dose tomorrow * next will consider reducing Depakote
[2017-10-28] MEDS ORDERED: Penicillin VK TAB* 250 MG PO SCH (16:00)
[2017-10-28] MEDS: Atorvastatin* 40 MG TAB PO SCH (17:29)
[2017-10-28] MEDS ORDERED: LIRAGLUTIDE 1.8 MG SUBCUT SCH (18:00)
[2017-10-28] MEDS: PTO:Liraglutide (NF) 18 MG/3 ML SUBCUT SCH (18:40)
[2017-10-28] MEDS: Enoxaparin(*) 40 MG/0.4 ML SYR SUBCUT SCH (18:43)
[2017-10-28] MEDS: ASENAPINE 10 MG SL SCH (21:40)
[2017-10-28] MEDS: Gabapentin CAP(*) 300 MG PO SCH (21:40)
[2017-10-28] MEDS: Diltiazem CD CAP* 120 MG PO SCH (21:41)
[2017-10-28] MEDS: Lisinopril TAB* 10 MG PO SCH (21:41)
[2017-10-28] MEDS: Butalb/Acetamin/Caff TAB* 1 TAB PO PRN (21:42)
[2017-10-28] MEDS: Aspirin TAB* 325 MG PO SCH (21:43)
[2017-10-28] MEDS: PENICILLIN VK 500 MG PO SCH (21:44)
[2017-10-28] MEDS: Famotidine TAB* 20 MG PO SCH (21:53)
[2017-10-29] MEDS ORDERED: PTO:Desvenlafaxine (NF) 50 MG TAB PO SCH (09:00)
--- NOTE | 2017-10-29 09:29 | PN ---
Epilepsy Service Progress Note Date of Service: 10/29/17 - Subjective Patient experienced one event yesterday morning during the EEG file change which was therefore not captured, and another event around 16:50 of trouble thinking and sense of left-sided shaking. She and her daughter report this was pretty typical of her events at home, though now Jewels says she usually shakes on both side and just in her hands whereas yesterday she felt like the whole left arm was shaking. She also woke up sometime overnight with a shaking spell but didn't know where the event button was and felt she couldn't call out for help, so this was not marked. She does not know what time this was, just that it was dark outside. I note she has used Fioricet both Monday night and Monday night. She indicates she gets headaches at night and "sometimes" uses Fioricet on a daily basis. Dr. Crowe's office prescribes this for her. - Medications Active Medications: Acetaminophen (Tylenol Tab*) 650 mg PO Q6H PRN PRN Reason: PAIN Acetaminophen/Butalbital/Caffeine (Fioricet Tab*) 1 tab PO Q6H PRN PRN Reason: MIGRAINE HEADACHE Last Admin: 10/28/17 21:42 Dose: 1 tab Albuterol (Ventolin Hfa Inhaler*) 1 puff INH DAILY PRN PRN Reason: WHEEZING Alprazolam (Xanax Tab*) 1 mg PO TID [facility] Last Admin: 10/28/17 21:42 Dose: 1 mg Asenapine (Saphris(Nf)) 10 mg SL BEDTIME [facility] Last Admin: 10/28/17 21:40 Dose: 10 mg Aspirin (Aspirin Tab*) 325 mg PO BEDTIME [facility] Last Admin: 10/28/17 21:43 Dose: 325 mg Atorvastatin Calcium (Lipitor*) 40 mg PO 1700 [facility] Last Admin: 10/28/17 17:29 Dose: 40 mg Bupropion HCl (Wellbutrin Tab*) 200 mg PO DAILY [facility] Last Admin: 10/28/17 09:14 Dose: 200 mg Calcium Carbonate (Calcium Carbonate Tab*) 1,250 mg PO BID [facility] Last Admin: 10/28/17 21:41 Dose: 1,250 mg Carvedilol (Coreg Tab*) 6.25 mg PO BID [facility] Last Admin: 10/28/17 21:41 Dose: 6.25 mg Desvenlafaxine Succinate (Pristiq (Nf)) 100 mg PO QAM [facility] Diltiazem HCl (Cardizem Cd Cap*) 120 mg PO BEDTIME [facility] Last Admin: 10/28/17 21:41 Dose: 120 mg Diphenhydramine HCl (Benadryl Po*) 25 mg PO Q6H PRN PRN Reason: ITCHING Divalproex Sodium (Depakote Er Tab(*)) 1,000 mg PO BID [facility] Last Admin: 10/28/17 21:40 Dose: 1,000 mg Docusate Sodium (Colace Cap*) 100 mg PO BID [facility] Last Admin: 10/28/17 21:41 Dose: 100 mg Enoxaparin Sodium (Lovenox(*)) 40 mg SUBCUT Q24H [facility] Last Admin: 10/28/17 18:43 Dose: 40 mg Famotidine (Pepcid Tab*) 40 mg PO BEDTIME [facility] PRN Reason: Protocol Last Admin: 10/28/17 21:53 Dose: 40 mg Gabapentin (Neurontin Cap(*)) 300 mg PO BEDTIME [facility] Last Admin: 10/28/17 21:40 Dose: 300 mg Levetiracetam (Keppra Tab*) 500 mg PO BID [facility] Stop: 10/29/17 10:00 Last Admin: 10/28/17 21:41 Dose: 500 mg Liraglutide (Victoza (Nf)) 1.8 mg SUBCUT QPM [facility] Last Admin: 10/28/17 18:40 Dose: 1.8 mg Lisinopril (Prinivil Tab*) 20 mg PO BEDTIME [facility] Last Admin: 10/28/17 21:41 Dose: 20 mg Lorazepam (Ativan Inj*) 1 mg IV Q8H PRN PRN Reason: Seizure > 3 minutes Multivitamins/Minerals (Theragran/Minerals Tab*) 1 tab PO QAM [facility] Last Admin: 10/28/17 09:12 Dose: 1 tab Pto: (Cranberry ( Vaccinium Macrocarp [Cranberry Super Strength] 15,000 Mg) 15, 000 mg PO DAILY [facility] Last Admin: 10/28/17 09:13 Dose: 15,000 mg Non-Formulary Medication (Non Formulary Med(Nf)) 1 dose PO DAILY [facility] PRN Reason: Protocol Omeprazole (Prilosec Cap*) 20 mg PO QAM [facility] Last Admin: 10/28/17 09:14 Dose: 20 mg Ondansetron HCl (Zofran Tab*) 4 mg PO Q6H PRN PRN Reason: NAUSEA/VOMITING Penicillin V Potassium (Penicillin Vk 500 Mg Tab(Nf)) 500 mg PO TID [facility] Stop: 10/30/17 21:01 Last Admin: 10/28/17 21:44 Dose: 500 mg EMU Diagnostics - Diagnostic Most Recent Vital Signs: Vital Signs: Temp Pulse Resp BP Pulse Ox 98.6 F 78 20 70/41 91 10/28/17 22:06 10/28/17 22:06 10/28/17 22:06 10/28/17 22:06 10/28/17 22:06 Lab Results: Laboratory Tests 10/28/17 08:03 POC Glucose (mg/dL) 152 H Interim video-EEG long-term monitoring report: #01 10/27: Background demonstrates excess beta activity and PDR 10. During drowsiness and light sleep, there are wickets noted. On occasion, there are isolated spike waveforms in the left temporal region which are not definitively epileptiform and may represent isolated wickets of higher voltage. No seizures, no definitive discharges, no patient events. #02 10/28: Background unchanged other than noting the presence of higher voltage , isolated spike waveforms in the right temporal region in addition to the left which are probably isolated wickets in the setting of breach effect from craniotomy. The event at 16:50 consisted of the patient reporting difficulty thinking and left sided shaking, but no left sided shaking was observable and she remained alert and able to respond throughout. She was only able to recall part of the recall phrase given to her. She was able to follow commands, slower on the left. No EEG change with this. Earlier event not captured on EEG secondary to happening during file change and electrode maintenance. No overnight EEG changes suggestive of seizure noted. No discharges, no seizures. EMU Exam - Exam Physical/Neurological Exam: Physical Exam: General: Well appearing in no acute distress. Morbidly obese Cardiac: RRR Lungs: Clear anteriorly MSK: no extremity deformities Derm: no rashes or lesions Neurological Exam: Mental Status: Awake and alert. Oriented to person, place, and time. Fluent. Comprehension intact. Affect appropriate. Cranial Nerves: Versions were full and with end-gaze nystagmus which faded. Facial musculature symmetric. Hearing grossly intact to voice. Palate was upgoing bilaterally. Tongue was midline. Shoulder shrug was symmetric. Motor: Strength is full in the RUE and RLE but there is mild weakness in the LUE and LLE versus poor effort. More difficult for her raise LLE off bed than RLE. Pronator drift was absent. There were no abnormal movements. Sensory: Sensation to light touch intact. Romberg was deferred. Coordination: FNF intact. Reflexes: not retested. Gait: deferred EMU Progress Note Assessment/P - Assessment/Plan Assessment: 56 year old woman with multiple medical problems including bipolar disorder with recent suicidal ideations and suicide attempt (took ten 1mg Xanax), diabetes, vascular disease, Cabrera Cabrera disease s/p EC-IC bypass and small left hemispheric stroke presenting with 2 types of episodes concerning for seizures. The first type consist of nocturnal episodes associated with headache, whole body shaking with retained awareness followed by left-sided weakness and sleepiness. The second type consists of word-finding difficulties associated with left-sided shaking followed by sleepiness. She feels both of these episodes occurred with reduced frequency compared to baseline on levetiracetam but has been having increased suicidal thoughts. Long-term monitoring is requested to evaluate for epileptiform abnormalities and to characterize events. The differential includes epileptic seizures but the description of events is unusual for epileptic seizures for several reasons as stated in the H& P. Other potential etiologies include psychogenic non-epileptic attacks. Not felt to be related to ischemia by her neurosurgical team. One event of trouble thinking and subjective left-sided shaking on 10/28 was not associated with any EEG changes. Patient reported an event of upper body shaking out of sleep overnight 10/28-10/29 but did not press button and no obvious EEG changes noted in EEG review. Will continue to monitor to try and capture additional typical events and to monitor off levetiracetam. Encouraged patient to alert someone if she has an event, even if it is after the fact. Spoke with patient regarding frequent use of Fioricet, which can cause rebound headaches. Discouraged use >2 times per week and ideally even less than this. If she gets a headache tonight, will take acetaminophen with some caffeine. 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 d/c after AM dose on 10/29 * next will consider reducing Depakote if needed but will continue for now given that she has had some events. * d/c Fioricet.
[2017-10-29] MEDS: ALPRAZolam TAB* 0.5 MG PO SCH ×3 (09:42→21:08)
[2017-10-29] MEDS: buPROPion TAB* 100 MG PO SCH (09:43)
[2017-10-29] MEDS: Carvedilol TAB* 6.25 MG PO SCH ×2 (09:44→21:10)
[2017-10-29] MEDS: PENICILLIN VK 500 MG PO SCH ×3 (09:45→21:14)
[2017-10-29] MEDS: CRANBERRY PO SCH (09:45)
[2017-10-29] MEDS: Divalproex ER TAB(*) 500 MG PO SCH ×2 (09:48→21:11)
[2017-10-29] MEDS: Docusate CAP* 100 MG PO SCH ×2 (09:49→21:12)
[2017-10-29] MEDS: levETIRAcetam TAB* 500 MG PO SCH (09:50)
[2017-10-29] MEDS: Multivitamins/Minerals TAB PO SCH (09:51)
[2017-10-29] MEDS: Omeprazole CAP* 20 MG PO SCH (09:52)
[2017-10-29] MEDS: NON FORMULARY MED 1 DOSE DOSE PO SCH (09:52)
[2017-10-29] MEDS: Calcium Carbonate TAB* 1250 MG (CALCIUM 500 MG) PO SCH ×2 (09:57→21:22)
[2017-10-29] MEDS: Atorvastatin* 40 MG TAB PO SCH (17:07)
[2017-10-29] MEDS: PTO:Liraglutide (NF) 18 MG/3 ML SUBCUT SCH (18:18)
[2017-10-29] MEDS: Enoxaparin(*) 40 MG/0.4 ML SYR SUBCUT SCH (18:43)
[2017-10-29] MEDS: Aspirin TAB* 325 MG PO SCH (21:09)
[2017-10-29] MEDS: ASENAPINE 10 MG SL SCH (21:09)
[2017-10-29] MEDS: Diltiazem CD CAP* 120 MG PO SCH (21:11)
[2017-10-29] MEDS: Lisinopril TAB* 10 MG PO SCH (21:13)
[2017-10-29] MEDS: Gabapentin CAP(*) 300 MG PO SCH (21:13)
[2017-10-29] MEDS: Famotidine TAB* 20 MG PO SCH (21:15)
[2017-10-30] MEDS: Docusate CAP* 100 MG PO SCH ×2 (09:19→21:08)
[2017-10-30] MEDS: ALPRAZolam TAB* 0.5 MG PO SCH ×3 (09:19→21:05)
[2017-10-30] MEDS: buPROPion TAB* 100 MG PO SCH (09:20)
[2017-10-30] MEDS: Calcium Carbonate TAB* 1250 MG (CALCIUM 500 MG) PO SCH ×2 (09:21→21:06)
[2017-10-30] MEDS: Carvedilol TAB* 6.25 MG PO SCH ×2 (09:22→21:07)
[2017-10-30] MEDS: CRANBERRY PO SCH (09:22)
[2017-10-30] MEDS: DESVENLAFAXINE 100 MG PO SCH (09:23)
[2017-10-30] MEDS: Divalproex ER TAB(*) 500 MG PO SCH ×2 (09:25→21:08)
[2017-10-30] MEDS: NON FORMULARY MED 1 DOSE DOSE PO SCH (09:27)
[2017-10-30] MEDS: Multivitamins/Minerals TAB PO SCH (09:27)
[2017-10-30] MEDS: PENICILLIN VK 500 MG PO SCH ×3 (09:28→21:09)
[2017-10-30] MEDS: Omeprazole CAP* 20 MG PO SCH (09:28)
[2017-10-30] MEDS: Acetaminophen TAB* 325 MG PO PRN (11:17)
--- NOTE | 2017-10-30 12:31 | PN ---
Epilepsy Service Progress Note Date of Service: 10/30/17 - Subjective Patient had an episode this morning of involuntary movements of the fingers of her left hand and a sense of numbness/tingling in the left foot. She also felt like she couldn't speak. None of this was evident in review of the video. The movements of the left fingers and numbness in the foot is not typical for her usual spells, but the sense that she cannot speak is typical. Today is her birthday and her daughter brought in cupcakes and a gift. She has not had any more of the nocturnal episodes. She has a right-sided headache after this event and took some Tylenol but this has not helped yet. She is drinking some caffeine as well. - Medications Active Medications: Acetaminophen (Tylenol Tab*) 650 mg PO Q6H PRN PRN Reason: PAIN Last Admin: 10/30/17 11:17 Dose: 650 mg Albuterol (Ventolin Hfa Inhaler*) 1 puff INH DAILY PRN PRN Reason: WHEEZING Alprazolam (Xanax Tab*) 1 mg PO TID [facility] Last Admin: 10/30/17 09:19 Dose: 1 mg Asenapine (Saphris(Nf)) 10 mg SL BEDTIME [facility] Last Admin: 10/29/17 21:09 Dose: 10 mg Aspirin (Aspirin Tab*) 325 mg PO BEDTIME [facility] Last Admin: 10/29/17 21:09 Dose: 325 mg Atorvastatin Calcium (Lipitor*) 40 mg PO 1700 [facility] Last Admin: 10/29/17 17:07 Dose: 40 mg Bupropion HCl (Wellbutrin Tab*) 200 mg PO DAILY [facility] Last Admin: 10/30/17 09:20 Dose: 200 mg Calcium Carbonate (Calcium Carbonate Tab*) 1,250 mg PO BID [facility] Last Admin: 10/30/17 09:21 Dose: 1,250 mg Carvedilol (Coreg Tab*) 6.25 mg PO BID [facility] Last Admin: 10/30/17 09:22 Dose: 6.25 mg Desvenlafaxine Succinate (Pristiq(Nf)) 100 mg PO QAM [facility] Last Admin: 10/30/17 09:23 Dose: 100 mg Diltiazem HCl (Cardizem Cd Cap*) 120 mg PO BEDTIME [facility] Last Admin: 10/29/17 21:11 Dose: 120 mg Diphenhydramine HCl (Benadryl Po*) 25 mg PO Q6H PRN PRN Reason: ITCHING Divalproex Sodium (Depakote Er Tab(*)) 1,000 mg PO BID [facility] Last Admin: 10/30/17 09:25 Dose: 1,000 mg Docusate Sodium (Colace Cap*) 100 mg PO BID [facility] Last Admin: 10/30/17 09:19 Dose: 100 mg Enoxaparin Sodium (Lovenox(*)) 40 mg SUBCUT Q24H [facility] Last Admin: 10/29/17 18:43 Dose: 40 mg Famotidine (Pepcid Tab*) 40 mg PO BEDTIME [facility] PRN Reason: Protocol Last Admin: 10/29/17 21:15 Dose: 40 mg Gabapentin (Neurontin Cap(*)) 300 mg PO BEDTIME [facility] Last Admin: 10/29/17 21:13 Dose: 300 mg Liraglutide (Victoza (Nf)) 1.8 mg SUBCUT QPM [facility] Last Admin: 10/29/17 18:18 Dose: 1.8 mg Lisinopril (Prinivil Tab*) 20 mg PO BEDTIME [facility] Last Admin: 10/29/17 21:13 Dose: 20 mg Lorazepam (Ativan Inj*) 1 mg IV Q8H PRN PRN Reason: Seizure > 3 minutes Multivitamins/Minerals (Theragran/Minerals Tab*) 1 tab PO QAM [facility] Last Admin: 10/30/17 09:27 Dose: 1 tab Pto: (Cranberry ( Vaccinium Macrocarp [Cranberry Super Strength] 15,000 Mg) 15, 000 mg PO DAILY [facility] Last Admin: 10/30/17 09:22 Dose: 15,000 mg Non-Formulary Medication (Non Formulary Med(Nf)) 1 dose PO DAILY [facility] PRN Reason: Protocol Last Admin: 10/30/17 09:27 Dose: 1 dose Nystatin (Nystatin Cream*) 1 applic TOPICAL BID PRN PRN Reason: RASH Omeprazole (Prilosec Cap*) 20 mg PO QAM [facility] Last Admin: 10/30/17 09:28 Dose: 20 mg Ondansetron HCl (Zofran Tab*) 4 mg PO Q6H PRN PRN Reason: NAUSEA/VOMITING Penicillin V Potassium (Penicillin Vk 500 Mg Tab(Nf)) 500 mg PO TID JULIANA Stop: 10/30/17 21:01 Last Admin: 10/30/17 09:28 Dose: 500 mg EMU Diagnostics - Diagnostic Most Recent Vital Signs: Vital Signs: Temp Pulse Resp BP Pulse Ox 98.0 F 88 22 124/57 96 10/30/17 08:02 10/30/17 08:02 10/30/17 10:30 10/30/17 08:02 10/30/17 08:02 Lab Results: Laboratory Tests 10/28/17 10/29/17 08:03 08:50 POC Glucose (mg/dL) 152 H 137 H Interim video-EEG long-term monitoring report: #01 10/27: Background demonstrates excess beta activity and PDR 10. During drowsiness and light sleep, there are wickets noted. On occasion, there are isolated spike waveforms in the left temporal region which are not definitively epileptiform and may represent isolated wickets of higher voltage. No seizures, no definitive discharges, no patient events. #02 10/28: Background unchanged other than noting the presence of higher voltage , isolated spike waveforms in the right temporal region in addition to the left which are probably isolated wickets in the setting of breach effect from craniotomy. The event at 16:50 consisted of the patient reporting difficulty thinking and left sided shaking, but no left sided shaking was observable and she remained alert and able to respond throughout. She was only able to recall part of the recall phrase given to her. She was able to follow commands, slower on the left. No EEG change with this. Earlier event not captured on EEG secondary to happening during file change and electrode maintenance. No overnight EEG changes suggestive of seizure noted. No discharges, no seizures. #03 10/29: Background unchanged, probable wickets bilaterally in the setting of breach. No events, no seizures #04 10/30: Patient had one event at 11am of left hand involuntary movements, left foot numbness/tingling. Not evident on video. Later reported she had trouble talking during this episode. No change in EEG EMU Exam - Exam Physical/Neurological Exam: Physical Exam: General: Well appearing in no acute distress. Morbidly obese MSK: no extremity deformities Derm: no rashes or lesions Neurological Exam: Mental Status: Awake and alert. Oriented to person, place, and time. Fluent. Comprehension intact. Affect appropriate. Cranial Nerves: Versions were full. Facial musculature symmetric. Hearing grossly intact to voice. Palate was upgoing bilaterally. Tongue was midline. Shoulder shrug was symmetric. Motor: Strength is full in the RUE and RLE but there is mild weakness in the LUE and LLE versus poor effort. There were no abnormal movements. Sensory: Sensation to light touch intact. Romberg was deferred. Coordination: FNF intact. Reflexes: not retested. Gait: deferred EMU Progress Note Assessment/P - Assessment/Plan Assessment: 57 year old woman with multiple medical problems including bipolar disorder with recent suicidal ideations and suicide attempt (took ten 1mg Xanax), diabetes, vascular disease, Cabrera Cabrera disease s/p EC-IC bypass and small left hemispheric stroke presenting with 2 types of episodes concerning for seizures. The first type consist of nocturnal episodes associated with headache, whole body shaking with retained awareness followed by left-sided weakness and sleepiness. The second type consists of word-finding difficulties associated with left-sided shaking followed by sleepiness. She feels both of these episodes occurred with reduced frequency compared to baseline on levetiracetam but has been having increased suicidal thoughts. Long-term monitoring is requested to evaluate for epileptiform abnormalities and to characterize events. The differential includes epileptic seizures but the description of events is unusual for epileptic seizures for several reasons as stated in the H& P. Other potential etiologies include psychogenic non-epileptic attacks. Not felt to be related to ischemia by her neurosurgical team. One event of trouble thinking and subjective left-sided shaking on 10/28 was not associated with any EEG changes. Patient reported an event of upper body shaking out of sleep overnight 10/28-10/29 but did not press button and no obvious EEG changes noted in EEG review. Event on 10/30 of trouble talking, involuntary movement of the fingers on the left and left foot numbness/tingling not associated with any EEG changes. Movements not visible on video. Will continue to monitor to try and capture additional typical events, especially nocturnal event, and to monitor off levetiracetam. Encouraged patient to alert someone if she has an event, even if it is after the fact. She has a rash under her breasts and pannus. Will give nystatin, which she uses at home. 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 d/c after AM dose on 10/29 * next will consider reducing Depakote if needed but will continue for now given that she has had some events. * d/c Fioricet. * Nystatin cream prn
[2017-10-30] MEDS: Nystatin CREAM* 15 GM TUBE TOPICAL PRN ×2 (14:27→21:09)
[2017-10-30] MEDS: Atorvastatin* 40 MG TAB PO SCH (17:28)
[2017-10-30] MEDS: PTO:Liraglutide (NF) 18 MG/3 ML SUBCUT SCH (18:11)
[2017-10-30] MEDS: Enoxaparin(*) 40 MG/0.4 ML SYR SUBCUT SCH (18:49)
[2017-10-30] MEDS: Aspirin TAB* 325 MG PO SCH (21:06)
[2017-10-30] MEDS: ASENAPINE 10 MG SL SCH (21:06)
[2017-10-30] MEDS: Gabapentin CAP(*) 300 MG PO SCH (21:08)
[2017-10-30] MEDS: Lisinopril TAB* 10 MG PO SCH (21:08)
[2017-10-30] MEDS: Famotidine TAB* 20 MG PO SCH (21:08)
[2017-10-30] MEDS: Diltiazem CD CAP* 120 MG PO SCH (21:09)
[2017-10-31] MEDS: ALPRAZolam TAB* 0.5 MG PO SCH ×3 (08:48→21:02)
[2017-10-31] MEDS: buPROPion TAB* 100 MG PO SCH (08:49)
[2017-10-31] MEDS: Carvedilol TAB* 6.25 MG PO SCH ×2 (08:50→21:02)
[2017-10-31] MEDS: Calcium Carbonate TAB* 1250 MG (CALCIUM 500 MG) PO SCH ×2 (08:50→21:02)
[2017-10-31] MEDS: DESVENLAFAXINE 100 MG PO SCH (08:51)
[2017-10-31] MEDS: CRANBERRY PO SCH (08:51)
[2017-10-31] MEDS: Divalproex ER TAB(*) 500 MG PO SCH ×2 (08:52→21:03)
[2017-10-31] MEDS: Multivitamins/Minerals TAB PO SCH (08:53)
[2017-10-31] MEDS: Docusate CAP* 100 MG PO SCH ×2 (08:53→21:02)
[2017-10-31] MEDS: Omeprazole CAP* 20 MG PO SCH (08:54)
[2017-10-31] MEDS: NON FORMULARY MED 1 DOSE DOSE PO SCH (08:54)
[2017-10-31] MEDS: PENICILLIN VK 500 MG PO SCH ×2 (08:55→14:16)
--- NOTE | 2017-10-31 10:41 | PN ---
Epilepsy Service Progress Note Date of Service: 10/31/17 - Subjective Patient did not have any episodes after the one which occurred at 11 yesterday morning. She does not know of anything that triggers them. She is anxious for a nocturnal event to occur. KHANNA went away yesterday evening and she does not have one today - Medications Active Medications: Acetaminophen (Tylenol Tab*) 650 mg PO Q6H PRN PRN Reason: PAIN Last Admin: 10/30/17 11:17 Dose: 650 mg Albuterol (Ventolin Hfa Inhaler*) 1 puff INH DAILY PRN PRN Reason: WHEEZING Alprazolam (Xanax Tab*) 1 mg PO TID [facility] Last Admin: 10/31/17 08:48 Dose: 1 mg Asenapine (Saphris(Nf)) 10 mg SL BEDTIME [facility] Last Admin: 10/30/17 21:06 Dose: 10 mg Aspirin (Aspirin Tab*) 325 mg PO BEDTIME [facility] Last Admin: 10/30/17 21:06 Dose: 325 mg Atorvastatin Calcium (Lipitor*) 40 mg PO 1700 [facility] Last Admin: 10/30/17 17:28 Dose: 40 mg Bupropion HCl (Wellbutrin Tab*) 200 mg PO DAILY [facility] Last Admin: 10/31/17 08:49 Dose: 200 mg Calcium Carbonate (Calcium Carbonate Tab*) 1,250 mg PO BID [facility] Last Admin: 10/31/17 08:50 Dose: 1,250 mg Carvedilol (Coreg Tab*) 6.25 mg PO BID [facility] Last Admin: 10/31/17 08:50 Dose: 6.25 mg Desvenlafaxine Succinate (Pristiq(Nf)) 100 mg PO QAM [facility] Last Admin: 10/31/17 08:51 Dose: 100 mg Diltiazem HCl (Cardizem Cd Cap*) 120 mg PO BEDTIME [facility] Last Admin: 10/30/17 21:09 Dose: 120 mg Diphenhydramine HCl (Benadryl Po*) 25 mg PO Q6H PRN PRN Reason: ITCHING Divalproex Sodium (Depakote Er Tab(*)) 1,000 mg PO BID [facility] Last Admin: 10/31/17 08:52 Dose: 1,000 mg Docusate Sodium (Colace Cap*) 100 mg PO BID [facility] Last Admin: 10/31/17 08:53 Dose: 100 mg Enoxaparin Sodium (Lovenox(*)) 40 mg SUBCUT Q24H [facility] Last Admin: 10/30/17 18:49 Dose: 40 mg Famotidine (Pepcid Tab*) 40 mg PO BEDTIME [facility] PRN Reason: Protocol Last Admin: 10/30/17 21:08 Dose: 40 mg Gabapentin (Neurontin Cap(*)) 300 mg PO BEDTIME [facility] Last Admin: 10/30/17 21:08 Dose: 300 mg Liraglutide (Victoza (Nf)) 1.8 mg SUBCUT QPM [facility] Last Admin: 10/30/17 18:11 Dose: 1.8 mg Lisinopril (Prinivil Tab*) 20 mg PO BEDTIME [facility] Last Admin: 10/30/17 21:08 Dose: 20 mg Lorazepam (Ativan Inj*) 1 mg IV Q8H PRN PRN Reason: Seizure > 3 minutes Multivitamins/Minerals (Theragran/Minerals Tab*) 1 tab PO QAM [facility] Last Admin: 10/31/17 08:53 Dose: 1 tab Pto: (Cranberry ( Vaccinium Macrocarp [Cranberry Super Strength] 15,000 Mg) 15, 000 mg PO DAILY [facility] Last Admin: 10/31/17 08:51 Dose: 15,000 mg Non-Formulary Medication (Non Formulary Med(Nf)) 1 dose PO DAILY [facility] PRN Reason: Protocol Last Admin: 10/31/17 08:54 Dose: 1 dose Nystatin (Nystatin Cream*) 1 applic TOPICAL BID PRN PRN Reason: RASH Last Admin: 10/30/17 21:09 Dose: 1 applic Omeprazole (Prilosec Cap*) 20 mg PO QAM [facility] Last Admin: 10/31/17 08:54 Dose: 20 mg Ondansetron HCl (Zofran Tab*) 4 mg PO Q6H PRN PRN Reason: NAUSEA/VOMITING Penicillin V Potassium (Penicillin Vk 500 Mg Tab(Nf)) 500 mg PO TID [facility] Stop: 10/31/17 14:01 Last Admin: 10/31/17 08:55 Dose: 500 mg EMU Diagnostics - Diagnostic Most Recent Vital Signs: Vital Signs: Temp Pulse Resp BP Pulse Ox 98.0 F 84 20 137/57 90 10/31/17 07:57 10/31/17 07:57 10/31/17 08:48 10/31/17 07:57 10/31/17 07:57 Lab Results: Laboratory Tests 10/28/17 10/29/17 10/30/17 08:03 08:50 07:54 POC Glucose (mg/dL) 152 H 137 H 151 H 10/31/17 07:47 POC Glucose (mg/dL) 110 H Interim video-EEG long-term monitoring report: #01 10/27: Background demonstrates excess beta activity and PDR 10. During drowsiness and light sleep, there are wickets noted. On occasion, there are isolated spike waveforms in the left temporal region which are not definitively epileptiform and may represent isolated wickets of higher voltage. No seizures, no definitive discharges, no patient events. #02 10/28: Background unchanged other than noting the presence of higher voltage , isolated spike waveforms in the right temporal region in addition to the left which are probably isolated wickets in the setting of breach effect from craniotomy. The event at 16:50 consisted of the patient reporting difficulty thinking and left sided shaking, but no left sided shaking was observable and she remained alert and able to respond throughout. She was only able to recall part of the recall phrase given to her. She was able to follow commands, slower on the left. No EEG change with this. Earlier event not captured on EEG secondary to happening during file change and electrode maintenance. No overnight EEG changes suggestive of seizure noted. No discharges, no seizures. #03 10/29: Background unchanged, probable wickets bilaterally in the setting of breach. No events, no seizures #04 10/30: Patient had one event at 11am of left hand involuntary movements, left foot numbness/tingling. Not evident on video. Later reported she had trouble talking during this episode. No change in EEG. Background otherwise unchanged, no seizures, no further events EMU Exam - Exam Physical/Neurological Exam: Physical Exam: General: Well appearing in no acute distress. Morbidly obese MSK: no extremity deformities Derm: no rashes or lesions Neurological Exam: Mental Status: Awake and alert. Oriented to person, place, and time. Fluent. Comprehension intact. Affect appropriate. Cranial Nerves: Versions were full. Facial musculature symmetric. Hearing grossly intact to voice. Palate was upgoing bilaterally. Tongue was midline. Shoulder shrug was symmetric. Motor: Strength is full in the RUE and RLE but there is mild weakness in the LUE and LLE versus poor effort. There were no abnormal movements. Sensory: Sensation to light touch intact. Romberg was deferred. Coordination: not retested Reflexes: not retested. Gait: deferred EMU Progress Note Assessment/P - Assessment/Plan Assessment: 57 year old woman with multiple medical problems including bipolar disorder with recent suicidal ideations and suicide attempt (took ten 1mg Xanax), diabetes, vascular disease, Cabrera Cabrera disease s/p EC-IC bypass and small left hemispheric stroke presenting with 2 types of episodes concerning for seizures. The first type consist of nocturnal episodes associated with headache, whole body shaking with retained awareness followed by left-sided weakness and sleepiness. The second type consists of word-finding difficulties associated with left-sided shaking followed by sleepiness. She feels both of these episodes occurred with reduced frequency compared to baseline on levetiracetam but has been having increased suicidal thoughts. Long-term monitoring is requested to evaluate for epileptiform abnormalities and to characterize events. The differential includes epileptic seizures but the description of events is unusual for epileptic seizures for several reasons as stated in the H& P. Other potential etiologies include psychogenic non-epileptic attacks. Not felt to be related to ischemia by her neurosurgical team. One event of trouble thinking and subjective left-sided shaking on 10/28 was not associated with any EEG changes. Patient reported an event of upper body shaking out of sleep overnight 10/28-10/29 but did not press button and no obvious EEG changes noted in EEG review. Event on 10/30 of trouble talking, involuntary movement of the fingers on the left and left foot numbness/tingling not associated with any EEG changes. Movements not visible on video. Will continue to monitor to try and capture additional typical events, especially nocturnal event, and to monitor off levetiracetam. Encouraged patient to alert someone if she has an event, even if it is after the fact. 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 d/c after AM dose on 10/29. Will wean Depakote to 500mg BID starting tonight * d/c Fioricet. * Nystatin cream prn
[2017-10-31] MEDS: Atorvastatin* 40 MG TAB PO SCH ×2 (17:52→18:17)
[2017-10-31] MEDS: PTO:Liraglutide (NF) 18 MG/3 ML SUBCUT SCH (17:53)
[2017-10-31] MEDS: Enoxaparin(*) 40 MG/0.4 ML SYR SUBCUT SCH (18:30)
[2017-10-31] MEDS: Diltiazem CD CAP* 120 MG PO SCH (21:02)
[2017-10-31] MEDS: Aspirin TAB* 325 MG PO SCH (21:02)
[2017-10-31] MEDS: Gabapentin CAP(*) 300 MG PO SCH (21:03)
[2017-10-31] MEDS: Famotidine TAB* 20 MG PO SCH (21:03)
[2017-10-31] MEDS: Lisinopril TAB* 10 MG PO SCH (21:03)
[2017-10-31] MEDS: ASENAPINE 10 MG SL SCH (21:04)
[2017-11-01] MEDS: Docusate CAP* 100 MG PO SCH ×2 (08:41→21:00)
[2017-11-01] MEDS: Acetaminophen TAB* 325 MG PO PRN (08:41)
[2017-11-01] MEDS: Carvedilol TAB* 6.25 MG PO SCH ×2 (08:42→21:01)
[2017-11-01] MEDS: ALPRAZolam TAB* 0.5 MG PO SCH ×3 (08:43→21:01)
[2017-11-01] MEDS: buPROPion TAB* 100 MG PO SCH (08:44)
[2017-11-01] MEDS: Omeprazole CAP* 20 MG PO SCH (08:45)
[2017-11-01] MEDS: Multivitamins/Minerals TAB PO SCH (08:45)
[2017-11-01] MEDS: Divalproex ER TAB(*) 500 MG PO SCH ×2 (08:47→20:59)
[2017-11-01] MEDS: CRANBERRY PO SCH (08:47)
[2017-11-01] MEDS: DESVENLAFAXINE 100 MG PO SCH (08:48)
[2017-11-01] MEDS: NON FORMULARY MED 1 DOSE DOSE PO SCH (08:48)
[2017-11-01] MEDS: Calcium Carbonate TAB* 1250 MG (CALCIUM 500 MG) PO SCH ×2 (08:49→21:00)
[2017-11-01] MEDS: Nystatin CREAM* 15 GM TUBE TOPICAL PRN ×2 (10:04→20:58)
--- NOTE | 2017-11-01 10:43 | PN ---
Epilepsy Service Progress Note Date of Service: 11/01/17 - Subjective No events overnight. This morning during rounds patient reported an episode of bilateral hand shaking but she did not press the button. She reported she felt like she was having difficulty speaking at the time of my evaluation. Requests early discharge on Monday because daughter having an outpatient surgery at [facility]. Dose of Depakote for bipolar was previously 1000mg QAM and 500mg QPM, then was increased to 1000mg BID because of these possible seizures. - Medications Active Medications: Acetaminophen (Tylenol Tab*) 650 mg PO Q6H PRN PRN Reason: PAIN Last Admin: 11/01/17 08:41 Dose: 650 mg Albuterol (Ventolin Hfa Inhaler*) 1 puff INH DAILY PRN PRN Reason: WHEEZING Alprazolam (Xanax Tab*) 1 mg PO TID [facility] Last Admin: 11/01/17 08:43 Dose: 1 mg Asenapine (Saphris(Nf)) 10 mg SL BEDTIME [facility] Last Admin: 10/31/17 21:04 Dose: 10 mg Aspirin (Aspirin Tab*) 325 mg PO BEDTIME [facility] Last Admin: 10/31/17 21:02 Dose: 325 mg Atorvastatin Calcium (Lipitor*) 40 mg PO 1700 [facility] Last Admin: 10/31/17 18:17 Dose: Not Given Bupropion HCl (Wellbutrin Tab*) 200 mg PO DAILY [facility] Last Admin: 11/01/17 08:44 Dose: 200 mg Calcium Carbonate (Calcium Carbonate Tab*) 1,250 mg PO BID [facility] Last Admin: 11/01/17 08:49 Dose: 1,250 mg Carvedilol (Coreg Tab*) 6.25 mg PO BID [facility] Last Admin: 11/01/17 08:42 Dose: 6.25 mg Desvenlafaxine Succinate (Pristiq(Nf)) 100 mg PO QAM [facility] Last Admin: 11/01/17 08:48 Dose: 100 mg Diltiazem HCl (Cardizem Cd Cap*) 120 mg PO BEDTIME [facility] Last Admin: 10/31/17 21:02 Dose: 120 mg Diphenhydramine HCl (Benadryl Po*) 25 mg PO Q6H PRN PRN Reason: ITCHING Divalproex Sodium (Depakote Er Tab(*)) 500 mg PO BID [facility] Last Admin: 11/01/17 08:47 Dose: 500 mg Docusate Sodium (Colace Cap*) 100 mg PO BID [facility] Last Admin: 11/01/17 08:41 Dose: 100 mg Enoxaparin Sodium (Lovenox(*)) 40 mg SUBCUT Q24H [facility] Last Admin: 10/31/17 18:30 Dose: 40 mg Famotidine (Pepcid Tab*) 40 mg PO BEDTIME [facility] PRN Reason: Protocol Last Admin: 10/31/17 21:03 Dose: 40 mg Gabapentin (Neurontin Cap(*)) 300 mg PO BEDTIME [facility] Last Admin: 10/31/17 21:03 Dose: 300 mg Liraglutide (Victoza (Nf)) 1.8 mg SUBCUT QPM [facility] Last Admin: 10/31/17 17:53 Dose: 1.8 mg Lisinopril (Prinivil Tab*) 20 mg PO BEDTIME [facility] Last Admin: 10/31/17 21:03 Dose: 20 mg Lorazepam (Ativan Inj*) 1 mg IV Q8H PRN PRN Reason: Seizure > 3 minutes Multivitamins/Minerals (Theragran/Minerals Tab*) 1 tab PO QAM [facility] Last Admin: 11/01/17 08:45 Dose: 1 tab Pto: (Cranberry ( Vaccinium Macrocarp [Cranberry Super Strength] 15,000 Mg) 15, 000 mg PO DAILY [facility] Last Admin: 11/01/17 08:47 Dose: 15,000 mg Non-Formulary Medication (Non Formulary Med(Nf)) 1 dose PO DAILY [facility] PRN Reason: Protocol Last Admin: 11/01/17 08:48 Dose: 1 dose Nystatin (Nystatin Cream*) 1 applic TOPICAL BID PRN PRN Reason: RASH Last Admin: 11/01/17 10:04 Dose: 1 applic Omeprazole (Prilosec Cap*) 20 mg PO QAM [facility] Last Admin: 11/01/17 08:45 Dose: 20 mg Ondansetron HCl (Zofran Tab*) 4 mg PO Q6H PRN PRN Reason: NAUSEA/VOMITING EMU Diagnostics - Diagnostic Most Recent Vital Signs: Vital Signs: Temp Pulse Resp BP Pulse Ox 98.6 F 85 20 134/87 90 11/01/17 08:46 11/01/17 08:44 11/01/17 09:43 11/01/17 08:44 11/01/17 08:44 Lab Results: Laboratory Tests 10/28/17 10/29/17 10/30/17 08:03 08:50 07:54 POC Glucose (mg/dL) 152 H 137 H 151 H 10/31/17 11/01/17 07:47 08:01 POC Glucose (mg/dL) 110 H 142 H Interim video-EEG long-term monitoring report: #01 10/27: Background demonstrates excess beta activity and PDR 10. During drowsiness and light sleep, there are wickets noted. On occasion, there are isolated spike waveforms in the left temporal region which are not definitively epileptiform and may represent isolated wickets of higher voltage. No seizures, no definitive discharges, no patient events. #02 10/28: Background unchanged other than noting the presence of higher voltage , isolated spike waveforms in the right temporal region in addition to the left which are probably isolated wickets in the setting of breach effect from craniotomy. The event at 16:50 consisted of the patient reporting difficulty thinking and left sided shaking, but no left sided shaking was observable and she remained alert and able to respond throughout. She was only able to recall part of the recall phrase given to her. She was able to follow commands, slower on the left. No EEG change with this. Earlier event not captured on EEG secondary to happening during file change and electrode maintenance. No overnight EEG changes suggestive of seizure noted. No discharges, no seizures. #03 10/29: Background unchanged, probable wickets bilaterally in the setting of breach. No events, no seizures #04 10/30: Patient had one event at 11am of left hand involuntary movements, left foot numbness/tingling. Not evident on video. Later reported she had trouble talking during this episode. No change in EEG. Background otherwise unchanged, no seizures, no further events #05 10/31: Background is the same. There is right greater than left temporal sharp waves in the setting of breach which are not clearly epileptiform in nature. During sleep, rarely there is some slowing at T4 in the delta range. No patient events, no seizures #06 11/01: Around 10:14 patient was noted on video to have slight bilateral hand movements. Reported on rounds at 10:20 that this had occurred but did not press button. During rounds, felt like she was not speaking normally. No EEG change. EMU Exam - Exam Physical/Neurological Exam: Physical Exam: General: Well appearing in no acute distress. Morbidly obese MSK: no extremity deformities Derm: no rashes or lesions Neurological Exam: Mental Status: Awake and alert. Oriented to person, place, and time. Fluent. Comprehension intact. Affect appropriate. No evidence of language dysfunction though patient subjectively detects this during rounds. Cranial Nerves: Versions were full. Facial musculature symmetric. Hearing grossly intact to voice. Palate was upgoing bilaterally. Tongue was midline. Shoulder shrug was symmetric. Motor: Strength is full in the RUE and RLE but there is mild weakness in the LUE and LLE versus poor effort. There were no abnormal movements. Sensory: Sensation to light touch intact. Romberg was deferred. Coordination: not retested Reflexes: not retested. Gait: deferred EMU Progress Note Assessment/P - Assessment/Plan Assessment: 57 year old woman with multiple medical problems including bipolar disorder with recent suicidal ideations and suicide attempt (took ten 1mg Xanax), diabetes, vascular disease, Cabrera Cabrera disease s/p EC-IC bypass and small left hemispheric stroke presenting with 2 types of episodes concerning for seizures. The first type consist of nocturnal episodes associated with headache, whole body shaking with retained awareness followed by left-sided weakness and sleepiness. The second type consists of word-finding difficulties associated with left-sided shaking followed by sleepiness. She feels both of these episodes occurred with reduced frequency compared to baseline on levetiracetam but has been having increased suicidal thoughts. Long-term monitoring is requested to evaluate for epileptiform abnormalities and to characterize events. The differential includes epileptic seizures but the description of events is unusual for epileptic seizures for several reasons as stated in the H& P. Other potential etiologies include psychogenic non-epileptic attacks. Not felt to be related to ischemia by her neurosurgical team. One event of trouble thinking and subjective left-sided shaking on 10/28 was not associated with any EEG changes. Patient reported an event of upper body shaking out of sleep overnight 10/28-10/29 but did not press button and no obvious EEG changes noted in EEG review. Event on 10/30 of trouble talking, involuntary movement of the fingers on the left and left foot numbness/tingling not associated with any EEG changes. Movements not visible on video. Event on of bilateral hand movements, possibly some difficulty speaking, patient did not press button but episode detected in review of video and did not have any associated changes in EEG. Will continue to monitor to try and capture additional typical events, especially nocturnal event, and to monitor off levetiracetam. Encouraged patient to alert someone if she has an event, even if it is after the fact. Again reminded patient of importance of pressing the event button. Will keep Depakote dose the same. 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 d/c after AM dose on 10/29. Continue Depakote to 500mg BID * d/c Fioricet. * Nystatin cream prn * Will plan for early discharge on Monday, daughter/patient to let us know when daughter's surgery is scheduled tomorrow.
[2017-11-01] MEDS: Atorvastatin* 40 MG TAB PO SCH (16:56)
[2017-11-01] MEDS: PTO:Liraglutide (NF) 18 MG/3 ML SUBCUT SCH (18:01)
[2017-11-01] MEDS: Enoxaparin(*) 40 MG/0.4 ML SYR SUBCUT SCH (18:43)
[2017-11-01] MEDS: ASENAPINE 10 MG SL SCH (20:58)
[2017-11-01] MEDS: Gabapentin CAP(*) 300 MG PO SCH (20:58)
[2017-11-01] MEDS: Famotidine TAB* 20 MG PO SCH (20:59)
[2017-11-01] MEDS: Aspirin TAB* 325 MG PO SCH (20:59)
[2017-11-01] MEDS: Lisinopril TAB* 10 MG PO SCH (21:00)
[2017-11-01] MEDS: Diltiazem CD CAP* 120 MG PO SCH (21:01)
[2017-11-02] MEDS: ALPRAZolam TAB* 0.5 MG PO SCH ×3 (09:18→21:05)
[2017-11-02] MEDS: Calcium Carbonate TAB* 1250 MG (CALCIUM 500 MG) PO SCH ×2 (09:19→21:05)
[2017-11-02] MEDS: buPROPion TAB* 100 MG PO SCH (09:19)
[2017-11-02] MEDS: Carvedilol TAB* 6.25 MG PO SCH ×2 (09:20→21:05)
[2017-11-02] MEDS: DESVENLAFAXINE 100 MG PO SCH (09:20)
[2017-11-02] MEDS: CRANBERRY PO SCH (09:20)
[2017-11-02] MEDS: NON FORMULARY MED 1 DOSE DOSE PO SCH (09:21)
[2017-11-02] MEDS: Divalproex ER TAB(*) 500 MG PO SCH (09:21)
[2017-11-02] MEDS: Docusate CAP* 100 MG PO SCH ×2 (09:21→21:05)
[2017-11-02] MEDS: Multivitamins/Minerals TAB PO SCH (09:21)
[2017-11-02] MEDS: Omeprazole CAP* 20 MG PO SCH (09:22)
--- NOTE | 2017-11-02 13:24 | PN ---
Epilepsy Service Progress Note Date of Service: 11/02/17 - Subjective The patient experienced an event at 11:39 of right sided headaches and the sense that her hands were shaking/fingers were moving. She was slow to follow commands, but able. She also had some trouble remembering the recall phrase given to her but was able to get it with prompting. No nocturnal events. Her daughter is having surgery tomorrow and she requests to be discharged by 8am tomorrow morning. - Medications Active Medications: Acetaminophen (Tylenol Tab*) 650 mg PO Q6H PRN PRN Reason: PAIN Last Admin: 11/01/17 08:41 Dose: 650 mg Albuterol (Ventolin Hfa Inhaler*) 1 puff INH DAILY PRN PRN Reason: WHEEZING Alprazolam (Xanax Tab*) 1 mg PO TID [facility] Last Admin: 11/02/17 09:18 Dose: 1 mg Asenapine (Saphris(Nf)) 10 mg SL BEDTIME [facility] Last Admin: 11/01/17 20:58 Dose: 10 mg Aspirin (Aspirin Tab*) 325 mg PO BEDTIME [facility] Last Admin: 11/01/17 20:59 Dose: 325 mg Atorvastatin Calcium (Lipitor*) 40 mg PO 1700 [facility] Last Admin: 11/01/17 16:56 Dose: 40 mg Bupropion HCl (Wellbutrin Tab*) 200 mg PO DAILY [facility] Last Admin: 11/02/17 09:19 Dose: 200 mg Calcium Carbonate (Calcium Carbonate Tab*) 1,250 mg PO BID [facility] Last Admin: 11/02/17 09:19 Dose: 1,250 mg Carvedilol (Coreg Tab*) 6.25 mg PO BID [facility] Last Admin: 11/02/17 09:20 Dose: 6.25 mg Desvenlafaxine Succinate (Pristiq(Nf)) 100 mg PO QAM [facility] Last Admin: 11/02/17 09:20 Dose: 100 mg Diltiazem HCl (Cardizem Cd Cap*) 120 mg PO BEDTIME [facility] Last Admin: 11/01/17 21:01 Dose: 120 mg Diphenhydramine HCl (Benadryl Po*) 25 mg PO Q6H PRN PRN Reason: ITCHING Divalproex Sodium (Depakote Er Tab(*)) 500 mg PO BID [facility] Last Admin: 11/02/17 09:21 Dose: 500 mg Docusate Sodium (Colace Cap*) 100 mg PO BID [facility] Last Admin: 11/02/17 09:21 Dose: 100 mg Enoxaparin Sodium (Lovenox(*)) 40 mg SUBCUT Q24H [facility] Last Admin: 11/01/17 18:43 Dose: 40 mg Famotidine (Pepcid Tab*) 40 mg PO BEDTIME [facility] PRN Reason: Protocol Last Admin: 11/01/17 20:59 Dose: 40 mg Gabapentin (Neurontin Cap(*)) 300 mg PO BEDTIME [facility] Last Admin: 11/01/17 20:58 Dose: 300 mg Liraglutide (Victoza (Nf)) 1.8 mg SUBCUT QPM [facility] Last Admin: 11/01/17 18:01 Dose: 1.8 mg Lisinopril (Prinivil Tab*) 20 mg PO BEDTIME [facility] Last Admin: 11/01/17 21:00 Dose: 20 mg Lorazepam (Ativan Inj*) 1 mg IV Q8H PRN PRN Reason: Seizure > 3 minutes Multivitamins/Minerals (Theragran/Minerals Tab*) 1 tab PO QAM [facility] Last Admin: 11/02/17 09:21 Dose: 1 tab Pto: (Cranberry ( Vaccinium Macrocarp [Cranberry Super Strength] 15,000 Mg) 15, 000 mg PO DAILY [facility] Last Admin: 11/02/17 09:20 Dose: 15,000 mg Non-Formulary Medication (Non Formulary Med(Nf)) 1 dose PO DAILY [facility] PRN Reason: Protocol Last Admin: 11/02/17 09:21 Dose: 1 dose Nystatin (Nystatin Cream*) 1 applic TOPICAL BID PRN PRN Reason: RASH Last Admin: 11/01/17 20:58 Dose: 1 applic Omeprazole (Prilosec Cap*) 20 mg PO QAM [facility] Last Admin: 11/02/17 09:22 Dose: 20 mg Ondansetron HCl (Zofran Tab*) 4 mg PO Q6H PRN PRN Reason: NAUSEA/VOMITING EMU Diagnostics - Diagnostic Most Recent Vital Signs: Vital Signs: Temp Pulse Resp BP Pulse Ox 98.4 F 77 20 100/39 89 11/02/17 07:54 11/02/17 07:54 11/02/17 09:18 11/02/17 07:54 11/02/17 07:54 Lab Results: Laboratory Tests 10/28/17 10/29/17 10/30/17 08:03 08:50 07:54 POC Glucose (mg/dL) 152 H 137 H 151 H 10/31/17 11/01/17 07:47 08:01 POC Glucose (mg/dL) 110 H 142 H Interim video-EEG long-term monitoring report: #01 10/27: Background demonstrates excess beta activity and PDR 10. During drowsiness and light sleep, there are wickets noted. On occasion, there are isolated spike waveforms in the left temporal region which are not definitively epileptiform and may represent isolated wickets of higher voltage. No seizures, no definitive discharges, no patient events. #02 10/28: Background unchanged other than noting the presence of higher voltage , isolated spike waveforms in the right temporal region in addition to the left which are probably isolated wickets in the setting of breach effect from craniotomy. The event at 16:50 consisted of the patient reporting difficulty thinking and left sided shaking, but no left sided shaking was observable and she remained alert and able to respond throughout. She was only able to recall part of the recall phrase given to her. She was able to follow commands, slower on the left. No EEG change with this. Earlier event not captured on EEG secondary to happening during file change and electrode maintenance. No overnight EEG changes suggestive of seizure noted. No discharges, no seizures. #03 10/29: Background unchanged, probable wickets bilaterally in the setting of breach. No events, no seizures #04 10/30: Patient had one event at 11am of left hand involuntary movements, left foot numbness/tingling. Not evident on video. Later reported she had trouble talking during this episode. No change in EEG. Background otherwise unchanged, no seizures, no further events #05 10/31: Background is the same. There is right greater than left temporal sharp waves in the setting of breach which are not clearly epileptiform in nature. During sleep, rarely there is some slowing at T4 in the delta range. No patient events, no seizures #06 11/01: Around 10:14 patient was noted on video to have slight bilateral hand movements. Reported on rounds at 10:20 that this had occurred but did not press button. During rounds, felt like she was not speaking normally. No EEG change. The patient had another event at 11:39 of right sided headache, subjective hand shaking (bilateral), slow to follow commands but remained responsive. She was able to remember a recall phrase with prompting. No EEG change. No seizures. EMU Exam - Exam Physical/Neurological Exam: Physical Exam: General: Well appearing in no acute distress. Morbidly obese. Sitting up at the edge of the bed. MSK: no extremity deformities Derm: no rashes or lesions Neurological Exam: Mental Status: Awake and alert. Oriented to person, place, and time. Fluent. Comprehension intact. Affect appropriate. No evidence of language dysfunction though patient subjectively detects this during rounds. Cranial Nerves: Versions were full. Facial musculature symmetric. Hearing grossly intact to voice. Palate was upgoing bilaterally. Tongue was midline. Shoulder shrug was symmetric. Motor: Strength is full in the RUE and RLE but there is mild weakness in the LUE and LLE versus poor effort. There were no abnormal movements. Sensory: Sensation to light touch intact. Romberg was deferred. Coordination: not retested Reflexes: not retested. Gait: deferred EMU Progress Note Assessment/P - Assessment/Plan Assessment: 57 year old woman with multiple medical problems including bipolar disorder with recent suicidal ideations and suicide attempt (took ten 1mg Xanax), diabetes, vascular disease, Cabrera Cabrera disease s/p EC-IC bypass and small left hemispheric stroke presenting with 2 types of episodes concerning for seizures. The first type consist of nocturnal episodes associated with headache, whole body shaking with retained awareness followed by left-sided weakness and sleepiness. The second type consists of word-finding difficulties associated with left-sided shaking followed by sleepiness. She feels both of these episodes occurred with reduced frequency compared to baseline on levetiracetam but has been having increased suicidal thoughts. Long-term monitoring is requested to evaluate for epileptiform abnormalities and to characterize events. The differential includes epileptic seizures but the description of events is unusual for epileptic seizures for several reasons as stated in the H& P. Other potential etiologies include psychogenic non-epileptic attacks. Not felt to be related to ischemia by her neurosurgical team. One event of trouble thinking and subjective left-sided shaking on 10/28 was not associated with any EEG changes. Patient reported an event of upper body shaking out of sleep overnight 10/28-10/29 but did not press button and no obvious EEG changes noted in EEG review. Event on 10/30 of trouble talking, involuntary movement of the fingers on the left and left foot numbness/tingling not associated with any EEG changes. Movements not visible on video. Event on of bilateral hand movements, possibly some difficulty speaking, patient did not press button but episode detected in review of video and did not have any associated changes in EEG. She had another event of hand shaking, headache, slow to respond to questions/commands, not associated with any EEG changes. Will continue to monitor tonight try and capture nocturnal event. Encouraged patient to alert someone if she has an event, even if it is after the fact. Again reminded patient of importance of pressing the event button. Will return Depakote to prior to admission dose. Plan for discharge early tomorrow morning. Discussed with Dr Calderón who agrees with not starting an additional antiseizure medication as there is no evidence the current events are epileptic in nature. Plan: * Continue long-term video EEG monitoring to capture typical episodes * Seizure precautions * lorazepam 1mg IV for seizure >3 minutes * continue home meds including Xanax 1mg TID and gabapentin 300mg QHS * home AED: levetiracetam 1000mg BID. d/c after AM dose on 10/29. Will not restart secondary to suicidal ideations on medication * Depakote 1000mg BID starting tonight. * d/c Fioricet. - recommend patient seriously limit use of this medication as an outpatient. * Nystatin cream prn
[2017-11-02] MEDS: Atorvastatin* 40 MG TAB PO SCH (17:50)
[2017-11-02] MEDS: PTO:Liraglutide (NF) 18 MG/3 ML SUBCUT SCH (17:53)
[2017-11-02] MEDS: Enoxaparin(*) 40 MG/0.4 ML SYR SUBCUT SCH (19:22)
[2017-11-02] MEDS: Nystatin CREAM* 15 GM TUBE TOPICAL PRN (19:33)
[2017-11-02] MEDS ORDERED: Divalproex ER TAB(*) 500 MG PO SCH (21:00)
[2017-11-02] MEDS: ASENAPINE 10 MG SL SCH (21:03)
[2017-11-02] MEDS: Gabapentin CAP(*) 300 MG PO SCH (21:04)
[2017-11-02] MEDS: Lisinopril TAB* 10 MG PO SCH (21:04)
[2017-11-02] MEDS: Famotidine TAB* 20 MG PO SCH (21:04)
[2017-11-02] MEDS: Diltiazem CD CAP* 120 MG PO SCH (21:05)
[2017-11-02] MEDS: Aspirin TAB* 325 MG PO SCH (21:05)
[2017-11-03 07:34] VITALS: BP 133/58
[2017-11-03 07:40] LABS: Hematocrit 39 % (35-47); Hemoglobin 13.4 g/dl (12.0-16.0); Mean Platelet Volume 9 um3 (7.4-10.4); Platelet Count 212 10^3/ul (150-450)
[2017-11-03 07:59] LABS: EGFR Non-African American 81.5 (>60)
--- NOTE | 2017-11-03 09:32 | DS ---
EMU Discharge - Discharge Summary Discharge Summary: Admitted: 10/27/17 - 11/03/17 Attending: Kathy Hylton Admitting Diagnosis: Possible seizures Discharge Diagnosis: Episodes transient tremors and language disturbance Admission History (From Admission H&P): [] Admission Examination: [] Admission AED Medications: [] Hospital Course: [] Discharge Examination: [] Destination: Home. Diet: Regular. Follow-up: [] Home Medications Medication Instructions Recorded Confirmed Type Lansoprazole SOLUTAB* [Prevacid 30 mg PO QAM 05/14/13 10/27/17 History Solutab*] Multivitamins/Minerals TAB* 1 tab PO QAM 11/25/15 10/27/17 History [Theragran/minerals TAB*] Asenapine(NF) [Saphris(NF)] 10 mg SL BEDTIME 05/02/16 10/27/17 History Ranitidine TAB (NF) [Zantac TAB 300 mg PO BEDTIME 05/02/16 10/27/17 History (NF)] Gabapentin CAP(*) [Neurontin 300 300 mg PO BEDTIME cap 05/05/16 10/27/17 Rx CAP(*)] ALPRAZolam TAB* [Xanax TAB*] 1 mg PO TID MDD 3 mg 06/13/16 10/27/17 History Calcium [Oyster-Serafin 500] 500 mg PO BID 06/13/16 10/27/17 History Carvedilol TAB* [Coreg TAB*] 6.25 mg PO BID 06/13/16 10/27/17 History Diltiazem HCl Extended Release 120 mg PO BEDTIME 06/13/16 10/27/17 History [Diltiazem HCl ER] Glimepiride (NF) 4 mg PO DAILY 06/13/16 10/27/17 History Liraglutide (NF) [Victoza (NF)] 1.8 mg SUBCUT QPM 06/13/16 10/27/17 History Aspirin TAB* [Aspirin 325 MG TAB*] 325 mg PO BEDTIME 02/24/17 10/27/17 History Docusate CAP* [Colace Cap*] 100 mg PO BID 02/24/17 10/27/17 History Lisinopril TAB* [Prinivil TAB 10 20 mg PO BEDTIME 02/24/17 10/27/17 History MG*] Ondansetron TAB* [Zofran 4 MG Tab*] 4 mg PO Q6H PRN 02/24/17 10/27/17 History Divalproex ER TAB(*) [Depakote ER 1,000 mg PO BID #60 tab 03/12/17 10/27/17 Rx TAB(*)] Desvenlafaxine Succinate [Pristiq] 100 mg PO QAM 06/03/17 10/27/17 History buPROPion TAB* [Wellbutrin TAB*] 200 mg PO DAILY 06/24/17 10/27/17 History Atorvastatin* [Lipitor 40 MG*] 40 mg PO 1700 #30 tab 06/25/17 10/27/17 Rx Albuterol Sulfate [Proventil Hfa] 108 mcg INH DAILY PRN 10/27/17 10/27/17 History Cranberry (Vaccinium Macrocarp 15,000 mg PO DAILY 10/27/17 10/27/17 History [Cranberry Super Strength]
== END 2017-11-03 07:45 | disposition home or self-care (01) | DRG 92 ==
LOC: EMU 10-27 13:23
PROVIDERS: ADMIT Psychiatry & Neurology Neurology; ATTEND Psychiatry & Neurology Neurology
PROC: 4A10X4Z Monitoring of Central Nervous Electrical Activity, External Approach (ICD-10-PCS; principal; 2017-10-27)
DX: G25.2 Other specified forms of tremor (principal); Z68.42 Body mass index [BMI] 45.0-49.9, adult; I11.0 Hypertensive heart disease with heart failure; I50.9 Heart failure, unspecified; E66.01 Morbid (severe) obesity due to excess calories; E11.9 Type 2 diabetes mellitus without complications; F80.9 Developmental disorder of speech and language, unspecified; R53.1 Weakness; F31.9 Bipolar disorder, unspecified; E78.00 Pure hypercholesterolemia, unspecified; J44.9 Chronic obstructive pulmonary disease, unspecified; G47.30 Sleep apnea, unspecified; K21.9 Gastro-esophageal reflux disease without esophagitis; M19.90 Unspecified osteoarthritis, unspecified site; G43.909 Migraine, unspecified, not intractable, without status migrainosus; F32.9 Major depressive disorder, single episode, unspecified; F41.0 Panic disorder [episodic paroxysmal anxiety]; F43.10 Post-traumatic stress disorder, unspecified; Z82.49 Family history of ischemic heart disease and other diseases of the circulatory system; Z81.1 Family history of alcohol abuse and dependence; Z81.8 Family history of other mental and behavioral disorders; Z91.5 Personal history of self-harm; Z86.73 Personal history of transient ischemic attack (TIA), and cerebral infarction without residual deficits; Z87.891 Personal history of nicotine dependence; R21 Rash and other nonspecific skin eruption
CPT/HCPCS: 36415; 82565; 85014; 85018; 85049; 95951; A9270-GY; J1650

== ENCOUNTER → 2017-10-13 18:55 | Emergency (ER) | payer MEDICAID, MEDICARE ==
[2017-10-13 20:03] LABS: ABS Basophils 0.1 10^3/ul (0-0.2); ABS Eosinophils 0.1 10^3/ul (0-0.6); ABS Lymphocytes 3.2 10^3/ul (1.0-4.8); ABS Monocytes 0.5 10^3/ul (0-0.8); ABS Neutrophils 5.2 10^3/ul (1.5-7.7); ABS Nucleated RBC 0 10^3/ul; Eosinophil % 1.5 % (0-6); Hematocrit 41 % (35-47); Lymphocyte % 35.3 % (25-47); Mean Corpuscular HGB Conc 34 g/dl (31-36); Mean Corpuscular Hemoglobin 29 pg (27-31); Mean Corpuscular Volume 85 fL (80-97); Mean Platelet Volume 9 um3 (7.4-10.4); Nucleated Red Blood Cells % 0.2; Platelet Count 217 10^3/ul (150-450); Red Cell Distribution Width 17 % (10.5-15); White Blood Count 9.2 10^3/ul (3.5-10.8)
[2017-10-13 20:18] LABS: EGFR Non-African American 79.3 (>60)
[2017-10-13 20:29] VITALS: BP 101/56
--- NOTE | 2017-10-13 20:40 | RAD ---
INDICATION: Cough COMPARISON: September 27, 2017 TECHNIQUE: PA and lateral views were obtained. This examination is limited due to body habitus FINDINGS: Bones/Soft Tissues: There are no acute bony findings. Cardiomediastinal: The cardiomediastinal silhouette is normal. Lungs: There are no infiltrates. Pleura: There are no pleural effusions. Other: None IMPRESSION: NO DEFINITIVE INFILTRATES.
--- NOTE | 2017-10-27 20:04 | ED ---
Frantz Michaels Natalie, scribed for Ifeanyi Granados MD on 10/13/17 at 1932 . HPI Chest Pain - HPI Summary HPI Summary: The pt is a 56 y/o F presenting to the ED c/o CP starting at 11:00. The pain radiates down bilateral UE. The pain is described as sharp. The pain is rated 7/ 10. The pain is aggravated by deep breathing. Pt additionally c/o productive cough for a few days and chills. Pt denies fever. She hasnt had similar episodes of this pain, and she has never had a blood clot or pneumonia. She does not currently smoke, but has SHx of smoking. - History of Current Complaint Chief Complaint: EDChestPainROMI Hx Obtained From: Patient Hx Last Menstrual Period: not since 2009 Onset/Duration: Started Hours Ago - 11:00 today, Still Present Timing: Lasting Hours Initial Severity: Moderate Current Severity: Moderate Pain Intensity: 7 Pain Scale Used: 0-10 Numeric Chest Pain Radiates: Yes Chest Pain Radiates To:: Arm - bilateral Character: Sharp/Stabbing Aggravating Factor(s): Deep Breaths Alleviating Factor(s): Nothing Associated Signs and Symptoms: Positive: Chest Pain, Chills, Productive Cough. Negative: Fever - Additional Pertinent History Primary Care Physician: [id number] - Allergy/Home Medications Allergies/Adverse Reactions: Allergies Allergy/AdvReac Type Severity Reaction Status Date / Time Nitrofurantoin Allergy Severe Rash Verified 06/23/17 22:08 [From Macrobid] Clavulanic Acid AdvReac Intermediate Nausea And Verified 06/23/17 22:08 [From Augmentin] Vomiting Meperidine [From Demerol HCl] AdvReac Intermediate Headache Verified 06/23/17 22 :08 Morphine AdvReac Nausea Verified 06/23/17 22:08 PMH/Surg Hx/FS Hx/Imm Hx Previously Healthy: No Endocrine/Hematology History: Reports: Hx Diabetes - DM II, Other Endocrine/ Hematological Disorders Denies: Hx Thyroid Disease, Hx Anemia Cardiovascular History: Reports: Hx Angina, Hx Angioplasty, Hx Coronary Artery Disease, Hx Hypercholesterolemia, Hx Hypertension, Other Cardiovascular Problems /Disorders - CAD, int/ext carotid stenosis Denies: Hx Aneurysm, Hx Auto Implanted Cardiovert Defib, Hx Cardiac Arrest, Hx Cardiomegaly, Hx Congenital Heart Disease, Hx Congestive Heart Failure, Hx Deep Vein Thrombosis, Hx Hypotension, Hx Myocardial Infarction, Hx Pacemaker/ICD , Hx Peripheral Vascular Disease, Hx Rheumatic Fever, Hx Syncope, Hx Valvular Heart Disease Respiratory History: Reports: Hx Asthma, Hx Chronic Bronchitis, Hx Chronic Obstructive Pulmonary Disease (COPD) - 2L O2 at home, Hx Pneumonia, Hx Sleep Apnea - CPAP in room for use, Other Respiratory Problems/Disorders - PNEUMONIA IN 2001 Denies: Hx Cystic Fibrosis, Hx Lung Cancer, Hx Pleural Effusion, Hx Pulmonary Edema, Hx Pulmonary Embolism, Hx Seasonal Allergies GI History: Reports: Hx Gastroesophageal Reflux Disease, Other GI Disorders - "sphincter in stomach not working" Denies: Hx Cirrhosis, Hx Crohn's Disease, Hx Diverticulosis, Hx Gall Bladder Disease, Hx Gastrointestinal Bleed, Hx Hiatal Hernia, Hx Irritable Bowel, Hx Jaundice, Hx Obstructive Bowel, Hx Ileostomy, Hx Pyloric Stenosis, Hx Ulcer History: Reports: Hx Acute Renal Failure, Hx Chronic Renal Failure, Hx Renal Disease, Other Problems/Disorders - chronic kidney disease Denies: Hx Dialysis Musculoskeletal History: Reports: Hx Arthritis, Hx Back Problems, Hx Orthopedic Injury, Hx Scoliosis Sensory History: Reports: Hx Contacts or Glasses, Hx Eye Injury, Hx Vision Problem Denies: Hx Hearing Aid, Hx Hearing Problem, Other Sensory Impairments Opthamlomology History: Reports: Hx Contacts or Glasses, Hx Eye Injury, Hx Vision Problem Denies: Other Sensory Impairments Neurological History: Reports: Hx Headaches, Hx Migraine, Hx Nerve Disease, Hx Seizures, Hx Transient Ischemic Attacks (TIA), Other Neuro Impairments/ Disorders - Hx of 2 TIA. Hx moyamoya disease. 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 Hx Chemotherapy: No Hx Radiation Therapy: No Hx Palliative Cancer Treatment: No - Surgical History Surgery Procedure, Year, and Place: uterine ablation, appendectomy, 2 bladder cystoscopies, c-sections, endoderectomy 2004, stent and balloon LICA 2005 & 2006 ( [email or web address] WALLSTENT - SAFE AT 1.5T AND 3T WITH EVERETTE 2.0 W/KG 15 MINS LIMITATION) , tubal ligation, arterial bypass in the brain Hx Anesthesia Reactions: No - Immunization History Date of Tetanus Vaccine: unk Date of Influenza Vaccine: 06/2017 Infectious Disease History: No Infectious Disease History: Denies: Hx Clostridium Difficile, Hx Hepatitis, Hx Human Immunodeficiency Virus (HIV), Hx of Known/Suspected MRSA, Hx Shingles, Hx Tuberculosis, Hx Known/ Suspected VRE, Hx Known/Suspected VRSA, History Other Infectious Disease, Traveled Outside the [place] in Last 30 Days - Family History Known Family History: Positive: Cardiac Disease, Other - bipolar disorder; alcohol abuse - Social History Alcohol Use: None Alcohol Amount: once/year Hx Substance Use: No Substance Use Type: Reports: None Hx Tobacco Use: Yes Smoking Status (MU): Former Smoker Type: Cigarettes Amount Used/How Often: quit in 2004 Have You Smoked in the Last Year: No Review of Systems Positive: Chills. Negative: Fever Positive: Chest Pain Positive: Cough All Other Systems Reviewed And Are Negative: Yes Physical Exam - Summary Physical Exam Summary: Appearance: Mildly obese, No acute distress Skin: Warm, Dry, No rash Eyes: Normal, PERRL, EOMI, sclera anicteric ENT: Normal Neck: Supple, nontender Respiratory: Lungs clear to auscultation, No coughing while in room Cardiovascular: S1, S2, no murmur, no rub, no gallop Abdomen: Soft, nontender, Obese abdomen Musculoskeletal: Normal extremities without edema Triage Information Reviewed: Yes Vital Signs On Initial Exam: Initial Vitals Temp Pulse Resp BP Pulse Ox 97.0 F 87 18 118/76 95 10/13/17 19:00 10/13/17 19:00 10/13/17 19:00 10/13/17 19:00 10/13/17 19:00 Vital Signs Reviewed: Yes Diagnostics - Vital Signs Vital Signs Temp Pulse Resp BP Pulse Ox 10/13/17 19:00 97.0 F 87 18 118/76 95 - Laboratory Result Diagrams: 10/13/17 19:45 10/13/17 19:45 Lab Statement: Any lab studies that have been ordered have been reviewed, and results considered in the medical decision making process. - Radiology CXR Xray Interpretation: No Acute Changes - No definitive infiltrates. ED physician has reviewed this report. Radiology Interpretation Completed By: Radiologist - EKG 19:19 Cardiac Rate: NL EKG Rhythm: Sinus Rhythm - 87 BPM EKG Interpretation: Poor R wave progression. Chest Pain Course/Dx - Course Course Of Treatment: Bloodwork shows normal WBC. EKG is normal. Chest X-ray is negative. No evidence of pneumonia or pulmonary embolism. The patient is diagnosed with chest wall pain. - Diagnoses Provider Diagnoses: Chest wall pain Discharge - Discharge Plan Condition: Stable Disposition: HOME Patient Education Materials: Chest Pain (ED) Referrals: Ang Zelaya MD [Primary Care Provider] - The documentation as recorded by the Frantz españa Natalie accurately reflects the service I personally performed and the decisions made by , Ifeanyi Granados MD.
== END | disposition home or self-care (01) ==
LOC: ED 18:55
DX: R07.89 Other chest pain (principal); R05 Cough; R68.83 Chills (without fever); I25.119 Atherosclerotic heart disease of native coronary artery with unspecified angina pectoris; E78.00 Pure hypercholesterolemia, unspecified; J44.9 Chronic obstructive pulmonary disease, unspecified; K21.9 Gastro-esophageal reflux disease without esophagitis; E11.22 Type 2 diabetes mellitus with diabetic chronic kidney disease; I12.9 Hypertensive chronic kidney disease with stage 1 through stage 4 chronic kidney disease, or unspecified chronic kidney disease; N18.9 Chronic kidney disease, unspecified; N17.9 Acute kidney failure, unspecified; F41.9 Anxiety disorder, unspecified; F32.9 Major depressive disorder, single episode, unspecified; F43.10 Post-traumatic stress disorder, unspecified; Z88.1 Allergy status to other antibiotic agents; Z88.5 Allergy status to narcotic agent; Z87.891 Personal history of nicotine dependence
CPT/HCPCS: 36415; 71046; 80053; 84484; 85025; 85379; 93005; 99282

== ENCOUNTER → 2017-10-18 15:31 | Emergency (ER) | payer MEDICARE, MEDICAID ==
[2017-10-18 15:36] VITALS: BP 158/69
--- NOTE | 2017-10-18 16:31 | ED ---
Psychiatric Complaint - HPI Summary HPI Summary: 56 female presents to ED by police after her daughter and at home nurse called them due to patient stating she wanted to "take a whole bunch of her xanax and not wake up". Patient states she did about a week ago where she took ~10 xanax. She states she did not do that today, she only took her one which is what she is prescribed to take for anxiety. Patient denies homicidal ideation. States she has just been under a lot of stress lately and her anxiety is up. Denies any harm to herself or others. No hallucinations. No alcohol or drug use. Is suicidal today. PMHx includes anxiety, depression, mood disorder, seizures, HTN and diabetes. Did take all of her appropriate medications today. No urinary symptoms. - History Of Current Complaint Chief Complaint: [facility] Time Seen by Provider: 10/18/17 15:43 Hx Obtained From: Patient Hx Last Menstrual Period: not since 2009 Onset/Duration: Gradual Onset, Lasting Weeks, Still Present, Worse Since Timing: Constant Severity Initially: Mild Severity Currently: Moderate Character: Depressed, Anxious Aggravating Factor(s): Recent Stress Alleviating Factor(s): Nothing Associated Signs And Symptoms: Positive: Negative Related History: Positive For: Prior Psychiatric Issues Has Suicidal: Reports: Thoughts, With A Plan Has Homicidal: Denies: Thoughts, With A Plan - Allergies/Home Medications Allergies/Adverse Reactions: Allergies Allergy/AdvReac Type Severity Reaction Status Date / Time Nitrofurantoin Allergy Severe Rash Verified 06/23/17 22:08 [From Macrobid] Clavulanic Acid AdvReac Intermediate Nausea And Verified 06/23/17 22:08 [From Augmentin] Vomiting Meperidine [From Demerol HCl] AdvReac Intermediate Headache Verified 06/23/17 22 :08 Morphine AdvReac Nausea Verified 06/23/17 22:08 PMH/Surg Hx/FS Hx/Imm Hx Endocrine/Hematology History: Reports: Hx Diabetes - DM II, Other Endocrine/ Hematological Disorders Denies: Hx Thyroid Disease, Hx Anemia Cardiovascular History: Reports: Hx Angina, Hx Angioplasty, Hx Coronary Artery Disease, Hx Hypercholesterolemia, Hx Hypertension, Other Cardiovascular Problems /Disorders - CAD, int/ext carotid stenosis Denies: Hx Aneurysm, Hx Auto Implanted Cardiovert Defib, Hx Cardiac Arrest, Hx Cardiomegaly, Hx Congenital Heart Disease, Hx Congestive Heart Failure, Hx Deep Vein Thrombosis, Hx Hypotension, Hx Myocardial Infarction, Hx Pacemaker/ICD , Hx Peripheral Vascular Disease, Hx Rheumatic Fever, Hx Syncope, Hx Valvular Heart Disease Respiratory History: Reports: Hx Asthma, Hx Chronic Bronchitis, Hx Chronic Obstructive Pulmonary Disease (COPD) - 2L O2 at home, Hx Pneumonia, Hx Sleep Apnea - CPAP in room for use, Other Respiratory Problems/Disorders - PNEUMONIA IN 2001 Denies: Hx Cystic Fibrosis, Hx Lung Cancer, Hx Pleural Effusion, Hx Pulmonary Edema, Hx Pulmonary Embolism, Hx Seasonal Allergies GI History: Reports: Hx Gastroesophageal Reflux Disease, Other GI Disorders - "sphincter in stomach not working" Denies: Hx Cirrhosis, Hx Crohn's Disease, Hx Diverticulosis, Hx Gall Bladder Disease, Hx Gastrointestinal Bleed, Hx Hiatal Hernia, Hx Irritable Bowel, Hx Jaundice, Hx Obstructive Bowel, Hx Ileostomy, Hx Pyloric Stenosis, Hx Ulcer History: Reports: Hx Acute Renal Failure, Hx Chronic Renal Failure, Hx Renal Disease, Other Problems/Disorders - chronic kidney disease Denies: Hx Dialysis Musculoskeletal History: Reports: Hx Arthritis, Hx Back Problems, Hx Orthopedic Injury, Hx Scoliosis Sensory History: Reports: Hx Contacts or Glasses, Hx Eye Injury, Hx Vision Problem Denies: Hx Hearing Aid, Hx Hearing Problem, Other Sensory Impairments Opthamlomology History: Reports: Hx Contacts or Glasses, Hx Eye Injury, Hx Vision Problem Denies: Other Sensory Impairments Neurological History: Reports: Hx Headaches, Hx Migraine, Hx Nerve Disease, Hx Seizures, Hx Transient Ischemic Attacks (TIA), Other Neuro Impairments/ Disorders - Hx of 2 TIA. Hx moyamoya disease. 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 Hx Chemotherapy: No Hx Radiation Therapy: No Hx Palliative Cancer Treatment: No - Surgical History Surgery Procedure, Year, and Place: uterine ablation, appendectomy, 2 bladder cystoscopies, c-sections, endoderectomy 2004, stent and balloon LICA 2005 & 2006 ( [employer] WALLSTENT - SAFE AT 1.5T AND 3T WITH EVERETTE 2.0 W/KG 15 MINS LIMITATION) , tubal ligation, arterial bypass in the brain Hx Anesthesia Reactions: No - Immunization History Date of Tetanus Vaccine: unk Date of Influenza Vaccine: 06/2017 Immunizations Up to Date: Yes Infectious Disease History: No Infectious Disease History: Denies: Hx Clostridium Difficile, Hx Hepatitis, Hx Human Immunodeficiency Virus (HIV), Hx of Known/Suspected MRSA, Hx Shingles, Hx Tuberculosis, Hx Known/ Suspected VRE, Hx Known/Suspected VRSA, History Other Infectious Disease, Traveled Outside the [place] in Last 30 Days - Family History Known Family History: Positive: Cardiac Disease, Other - bipolar disorder; alcohol abuse - Social History Alcohol Use: None Alcohol Amount: once/year Hx Substance Use: No Substance Use Type: Reports: None Hx Tobacco Use: Yes Smoking Status (MU): Former Smoker Type: Cigarettes Amount Used/How Often: quit in 2004 Have You Smoked in the Last Year: No Review of Systems Constitutional: Negative Cardiovascular: Negative Respiratory: Negative Positive: Anxious, Depressed All Other Systems Reviewed And Are Negative: Yes Physical Exam Triage Information Reviewed: Yes Vital Signs On Initial Exam: Initial Vitals Temp Pulse Resp BP Pulse Ox 97.4 F 104 18 158/69 93 10/18/17 15:33 10/18/17 15:33 10/18/17 15:33 10/18/17 15:33 10/18/17 15:33 low O2 noted, patient was placed on 2L oxygen and it improved, she is on 2L at home daily. Vital Signs Reviewed: Yes Appearance: Positive: Well-Appearing, No Pain Distress, Well-Nourished Skin: Positive: Warm, Skin Color Reflects Adequate Perfusion, Dry. Negative: Cold, Numb, Cyanosis @, Pale, Erythema @ Head/Face: Positive: Normal Head/Face Inspection Eyes: Positive: Conjunctiva Clear ENT: Positive: Hearing grossly normal Neck: Positive: Supple, Nontender Respiratory/Lung Sounds: Positive: Clear to Auscultation, Breath Sounds Present. Negative: Rales, Rhonchi, Wheezes Cardiovascular: Positive: Normal, RRR, Pulses are Symmetrical in both Upper and Lower Extremities. Negative: Murmur, Rub Musculoskeletal: Positive: Normal, Strength/ROM Intact Neurological: Positive: Normal, Sensory/Motor Intact, Alert, Oriented to Person Place, Time Psychiatric: Positive: Depressed - [place] Coma Scale Best Eye Response: 4 - Spontaneous Best Motor Response: 6 - Obeys Commands Best Verbal Response: 5 - Oriented Coma Scale Total: 15 Diagnostics - Vital Signs Vital Signs Temp Pulse Resp BP Pulse Ox 10/18/17 15:33 97.4 F 104 18 158/69 93 - Laboratory Result Diagrams: 10/18/17 16:00 10/18/17 16:00 Lab Statement: Any lab studies that have been ordered have been reviewed, and results considered in the medical decision making process. Course/Dx - Course Course Of Treatment: patient was medically cleared. patient given 2L of O2 as that is what she is on at home and O2 significantly improved. labs were unremarkable besides slightly elevated glucose. patient is a type II diabetic. did have WBC and 1+ leuk in urine however, asymptomatic, will wait for culture results, does not require treatment at this time, no bacteria, nitrate or blood. does not appear to medical in etiology. did have positive benzo drug screen however patient admits and does take prescribed xanax. no other concerns at this time. spoke with [facility] who states patient was safe to discharge home instructed by Dr Workman with diagnosis of depression and mood/bipolar disorder with close out patient follow up set up prior to discharge. - Differential Dx/Clinical Impression Differential Diagnosis/HQI/PQRI: Positive: Anxiety, Depression, Suicidal Ideation Provider Diagnosis: Depression, Bipolar disorder - Physician Notifications Discussed Care Of Patient With: Dr Jacinta ZEPEDA Patient Is Medically Stable For: Psych Evaluation Discharge - Discharge Plan Condition: Stable Disposition: HOME Patient Education Materials: Bipolar Disorder (ED), Suicide Prevention for Adults (ED) Referrals: [facility] [Outside] Ang Zelaya MD [Primary Care Provider] -
[2017-10-18 16:44] LABS: Urine Appearance Clear; Urine Blood Negative (Negative); Urine Color Yellow; Urine Ketones 1+ (Negative); Urine Protein Negative (Negative); Urine Specific Gravity 1.024 (1.010-1.030); Urine Urobilinogen Negative (Negative)
[2017-10-18 17:19] LABS: ABS Basophils 0 10^3/ul (0-0.2); ABS Eosinophils 0.1 10^3/ul (0-0.6); ABS Lymphocytes 2.2 10^3/ul (1.0-4.8); ABS Monocytes 0.8 10^3/ul (0-0.8); ABS Neutrophils 10.2 10^3/ul (1.5-7.7); ABS Nucleated RBC 0 10^3/ul; Eosinophil % 0.5 % (0-6); Hematocrit 40 % (35-47); Hemoglobin 13.6 g/dl (12.0-16.0); Lymphocyte % 16.7 % (25-47); Mean Corpuscular HGB Conc 34 g/dl (31-36); Mean Corpuscular Hemoglobin 29 pg (27-31); Mean Corpuscular Volume 86 fL (80-97); Mean Platelet Volume 9 um3 (7.4-10.4); Nucleated Red Blood Cells % 0; Platelet Count 185 10^3/ul (150-450); Red Blood Count 4.66 10^6/ul (4.0-5.4); Red Cell Distribution Width 17 % (10.5-15); White Blood Count 13.3 10^3/ul (3.5-10.8)
[2017-10-18 17:30] LABS: EGFR Non-African American 87.2 (>60)
== END | disposition home or self-care (01) ==
LOC: ED 15:31
DX: F32.9 Major depressive disorder, single episode, unspecified (principal); E11.9 Type 2 diabetes mellitus without complications; Z87.891 Personal history of nicotine dependence; Z88.3 Allergy status to other anti-infective agents; Z88.8 Allergy status to other drugs, medicaments and biological substances; Z88.5 Allergy status to narcotic agent
CPT/HCPCS: 36415; 80053; 80307; 80320; 80329; 81003; 81015; 84443; 85025; 87077; 87086; 87186; G0480

== ENCOUNTER 2017-11-25 22:55 | Observation (INO) | payer MEDICARE, MEDICAID ==
[2017-11-25 23:55] LABS: ABS Basophils 0.1 10^3/ul (0-0.2); ABS Eosinophils 0.2 10^3/ul (0-0.6); ABS Lymphocytes 4.2 10^3/ul (1.0-4.8); ABS Monocytes 0.8 10^3/ul (0-0.8); ABS Nucleated RBC 0 10^3/ul; Eosinophil % 1.5 % (0-6); Hematocrit 40 % (35-47); Hemoglobin 13.6 g/dl (12.0-16.0); Lymphocyte % 41.2 % (25-47); Mean Corpuscular HGB Conc 34 g/dl (31-36); Mean Corpuscular Hemoglobin 29 pg (27-31); Mean Corpuscular Volume 85 fL (80-97); Mean Platelet Volume 9 um3 (7.4-10.4); Nucleated Red Blood Cells % 0.2; Platelet Count 206 10^3/ul (150-450); Red Blood Count 4.74 10^6/ul (4.0-5.4); Red Cell Distribution Width 17 % (10.5-15); White Blood Count 10.1 10^3/ul (3.5-10.8)
[2017-11-26 00:04] LABS: INR 1.06 (0.77-1.02)
[2017-11-26 00:07] LABS: EGFR Non-African American 80.2 (>60)
[2017-11-26] MEDS ORDERED: Acetaminophen TAB* 325 MG PO PRN (01:18)
[2017-11-26] MEDS ORDERED: Aspirin Low Dose CHEW TAB* 81 MG PO ONE (01:18)
[2017-11-26] MEDS ORDERED: Albuterol 2.5 MG/3 ML NEB.SOL* (0.083%) INH PRN (01:18)
[2017-11-26] MEDS ORDERED: Melatonin (NF) 3 MG TAB PO PRN (01:18)
[2017-11-26] MEDS ORDERED: Ondansetron INJ* 2 MG/ML VIAL IV PRN (01:18)
[2017-11-26] MEDS ORDERED: NS 0.9% 1000 ML* 1,000 ML IV SCH (01:30)
--- NOTE | 2017-11-26 03:03 | ED ---
Ricardo Michaels Jennifer, scribed for Greg Goss on 11/25/17 at 2310 . HPI Chest Pain - HPI Summary HPI Summary: The patient is a 57 year old female who presents with chest pain that began 30 minutes ago. The patient additionally complains of dizziness and shortness of breath. She denies nausea, fever, cough, and swelling of the legs. She uses O2 at home due to her emphysema. She takes an aspirin every night and took one before arriving to the ED tonight. - History of Current Complaint Chief Complaint: EDChestPainROMI Time Seen by Provider: 11/25/17 23:05 Hx Obtained From: Patient Hx Last Menstrual Period: not since 2009 Onset/Duration: Started Minutes Ago - 30 minutes, Still Present Timing: Constant Initial Severity: Mild Current Severity: Mild Chest Pain Radiates: No Aggravating Factor(s): Nothing Alleviating Factor(s): Nothing Associated Signs and Symptoms: Positive: Other: - dizziness, shortness of breath. NEGATIVE: nausea, fever, cough, swelling of the legs - Additional Pertinent History Primary Care Physician: [id number] - Allergy/Home Medications Allergies/Adverse Reactions: Allergies Allergy/AdvReac Type Severity Reaction Status Date / Time nitrofurantoin Allergy Severe Rash Verified 11/25/17 23:05 meperidine Allergy Intermediate Headache Verified 11/25/17 23:05 clavulanic acid AdvReac Intermediate Nausea And Verified 11/25/17 23:05 Vomiting morphine AdvReac Intermediate Nausea Verified 11/25/17 23:05 Home Medications: Home Medications Butalb/Acetamin/Caff TAB* [Fioricet TAB*] 1 tab PO Q6H PRN 11/26/17 [History Confirmed 11/26/17] Gabapentin CAP(*) [Neurontin 100 mg CAP(*)] 100 mg PO AC 11/26/17 [History Confirmed 11/26/17] Gabapentin CAP(*) [Neurontin 300 CAP(*)] 300 mg PO BEDTIME 11/26/17 [History Confirmed 11/26/17] clonazePAM TAB(*) [KlonoPIN TAB(*)] 1 mg PO TID PRN 11/26/17 [History Confirmed 11/26/17] PMH/Surg Hx/FS Hx/Imm Hx Endocrine/Hematology History: Reports: Hx Diabetes - DM II, Other Endocrine/ Hematological Disorders Denies: Hx Thyroid Disease, Hx Anemia, Hx Unexplained Bleeding Cardiovascular History: Reports: Hx Congestive Heart Failure, Hx Hypercholesterolemia, Hx Hypertension Denies: Hx Aneurysm, Hx Angina, Hx Angioplasty, Hx Auto Implanted Cardiovert Defib, Hx Cardiac Arrest, Hx Cardiomegaly, Hx Congenital Heart Disease, Hx Coronary Artery Disease, Hx Deep Vein Thrombosis, Hx Embolism, Hx Hypotension, Hx Myocardial Infarction, Hx Pacemaker/ICD, Hx Peripheral Vascular Disease, Hx Rheumatic Fever, Hx Syncope, Hx Valvular Heart Disease, Other Cardiovascular Problems/Disorders Respiratory History: Reports: Hx Asthma, Hx Chronic Bronchitis, Hx Chronic Obstructive Pulmonary Disease (COPD) - 2L O2 at home, Hx Pneumonia, Hx Sleep Apnea - CPAP in room for use, Other Respiratory Problems/Disorders - PNEUMONIA IN 2001 Denies: Hx Cystic Fibrosis, Hx Lung Cancer, Hx Pleural Effusion, Hx Pulmonary Edema, Hx Pulmonary Embolism, Hx Seasonal Allergies GI History: Reports: Hx Gastroesophageal Reflux Disease, Other GI Disorders - "sphincter in stomach not working" Denies: Hx Cirrhosis, Hx Crohn's Disease, Hx Diverticulosis, Hx Gall Bladder Disease, Hx Gastrointestinal Bleed, Hx Hiatal Hernia, Hx Irritable Bowel, Hx Jaundice, Hx Obstructive Bowel, Hx Ileostomy, Hx Pyloric Stenosis, Hx Ulcer History: Reports: Hx Acute Renal Failure, Hx Renal Disease Denies: Hx Benign Prostatic Hyperplasia, Hx Chronic Renal Failure, Hx Dialysis, Hx Kidney Infection, Hx Kidney Stones, Other Problems/Disorders Musculoskeletal History: Reports: Hx Arthritis, Hx Back Problems, Hx Orthopedic Injury, Hx Scoliosis Sensory History: Reports: Hx Contacts or Glasses, Hx Vision Problem Denies: Hx Cataracts, Hx Eye Injury, Hx Hearing Aid, Hx Hearing Problem, Other Sensory Impairments Opthamlomology History: Reports: Hx Contacts or Glasses, Hx Vision Problem Denies: Hx Cataracts, Hx Eye Injury, Other Sensory Impairments Neurological History: Reports: Hx Headaches, Hx Migraine, Hx Nerve Disease, Hx Seizures, Hx Transient Ischemic Attacks (TIA), Other Neuro Impairments/ Disorders - Hx of 2 TIA. Hx moyamoya disease. 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 . endarterectomy-left internal carotid Hx Anesthesia Reactions: No - Immunization History Date of Tetanus Vaccine: unk Date of Influenza Vaccine: 06/2017 Infectious Disease History: Reports: Hx Clostridium Difficile - 1.5 years ago Denies: Hx Hepatitis, Hx Human Immunodeficiency Virus (HIV), Hx of Known/ Suspected MRSA, Hx Shingles, Hx Tuberculosis, Hx Known/Suspected VRE, Hx Known/ Suspected VRSA, History Other Infectious Disease, Traveled Outside the [place] in Last 30 Days - Family History Known Family History: Positive: Cardiac Disease, Other - bipolar disorder; alcohol abuse - Social History Alcohol Use: None Alcohol Amount: once/year Hx Substance Use: No Substance Use Type: Reports: None Hx Tobacco Use: Yes Smoking Status (MU): Former Smoker - Quit in 2004 Type: Cigarettes Amount Used/How Often: quit in 2004 Have You Smoked in the Last Year: No Review of Systems Negative: Fever Positive: Chest Pain Positive: Shortness Of Breath. Negative: Cough Negative: Nausea Negative: Edema Neurological: Other - Dizziness All Other Systems Reviewed And Are Negative: Yes Physical Exam - Summary Physical Exam Summary: Appearance: Well appearing, no pain distress Skin: warm, dry, reflects adequate perfusion Head/face: normal Eyes: EOMI, [place]ER[place] ENT: normal Neck: supple, non-tender Respiratory: CTA, breath sounds present Cardiovascular: RRR, pulses symmetrical Abdomen: non-tender, soft Bowel: present Musculoskeletal: normal, strength/ROM intact Neuro: normal, sensory motor intact, A&Ox3 Triage Information Reviewed: Yes Vital Signs On Initial Exam: Initial Vitals Temp Pulse Resp BP Pulse Ox 97.5 F 83 18 139/87 99 11/25/17 23:04 11/25/17 23:04 11/25/17 23:04 11/25/17 23:04 11/25/17 23:04 Vital Signs Reviewed: Yes Diagnostics - Vital Signs Vital Signs Temp Pulse Resp BP Pulse Ox 11/26/17 01:00 77 23 94 11/26/17 00:12 75 24 93 11/26/17 00:00 73 24 92 11/25/17 23:30 74 27 106/48 93 11/25/17 23:05 18 11/25/17 23:04 97.5 F 83 18 139/87 99 - Laboratory Lab Results: Lab Results 11/25/17 11/25/17 11/25/17 Range/Units 23:37 23:37 23:37 WBC 10.1 (3.5-10.8) 10^3/ul RBC 4.74 (4.0-5.4) 10^6/ul Hgb 13.6 (12.0-16.0) g/dl Hct 40 (35-47) % MCV 85 (80-97) fL MCH 29 (27-31) pg MCHC 34 (31-36) g/dl RDW 17 H (10.5-15) % Plt Count 206 (150-450) 10^3/ul MPV 9 (7.4-10.4) um3 Neut % (Auto) 49.2 (38-83) % Lymph % (Auto) 41.2 (25-47) % [place] % (Auto) 7.6 H (0-7) % Eos % (Auto) 1.5 (0-6) % Baso % (Auto) 0.5 (0-2) % Absolute Neuts (auto) 5.0 (1.5-7.7) 10^3/ul Absolute Lymphs (auto) 4.2 (1.0-4.8) 10^3/ul Absolute Monos (auto) 0.8 (0-0.8) 10^3/ul Absolute Eos (auto) 0.2 (0-0.6) 10^3/ul Absolute Basos (auto) 0.1 (0-0.2) 10^3/ul Absolute Nucleated RBC 0 10^3/ul Nucleated RBC % 0.2 INR (Anticoag Therapy) 1.06 H (0.77-1.02) APTT 32.2 (26.0-36.3) seconds Sodium (133-145) mmol/L Potassium (3.5-5.0) mmol/L Chloride (101-111) mmol/L Carbon Dioxide (22-32) mmol/L Anion Gap (2-11) mmol/L BUN (6-24) mg/dL Creatinine (0.51-0.95) mg/dL Est GFR ( Amer) (>60) Est GFR (Non-Af Amer) (>60) BUN/Creatinine Ratio (8-20) Glucose (70-100) mg/dL Lactic Acid (0.5-2.0) mmol/L Calcium (8.6-10.3) mg/dL Total Bilirubin (0.2-1.0) mg/dL AST (13-39) U/L ALT (7-52) U/L Alkaline Phosphatase (34-104) U/L Troponin I (<0.04) ng/mL B-Natriuretic Peptide 41 ( - 100) pg/mL Total Protein (6.4-8.9) g/dL Albumin (3.2-5.2) g/dL Globulin (2-4) g/dL Albumin/Globulin Ratio (1-3) 11/25/17 11/25/17 Range/Units 23:37 23:37 WBC (3.5-10.8) 10^3/ul RBC (4.0-5.4) 10^6/ul Hgb (12.0-16.0) g/dl Hct (35-47) % MCV (80-97) fL MCH (27-31) pg MCHC (31-36) g/dl RDW (10.5-15) % Plt Count (150-450) 10^3/ul MPV (7.4-10.4) um3 Neut % (Auto) (38-83) % Lymph % (Auto) (25-47) % [place] % (Auto) (0-7) % Eos % (Auto) (0-6) % Baso % (Auto) (0-2) % Absolute Neuts (auto) (1.5-7.7) 10^3/ul Absolute Lymphs (auto) (1.0-4.8) 10^3/ul Absolute Monos (auto) (0-0.8) 10^3/ul Absolute Eos (auto) (0-0.6) 10^3/ul Absolute Basos (auto) (0-0.2) 10^3/ul Absolute Nucleated RBC 10^3/ul Nucleated RBC % INR (Anticoag Therapy) (0.77-1.02) APTT (26.0-36.3) seconds Sodium 137 (133-145) mmol/L Potassium 4.1 (3.5-5.0) mmol/L Chloride 102 (101-111) mmol/L Carbon Dioxide 27 (22-32) mmol/L Anion Gap 8 (2-11) mmol/L BUN 11 (6-24) mg/dL Creatinine 0.75 (0.51-0.95) mg/dL Est GFR ( Amer) 103.2 (>60) Est GFR (Non-Af Amer) 80.2 (>60) BUN/Creatinine Ratio 14.7 (8-20) Glucose 152 H (70-100) mg/dL Lactic Acid 2.3 H* (0.5-2.0) mmol/L Calcium 9.4 (8.6-10.3) mg/dL Total Bilirubin 0.40 (0.2-1.0) mg/dL AST 13 (13-39) U/L ALT 14 (7-52) U/L Alkaline Phosphatase 47 (34-104) U/L Troponin I 0.00 (<0.04) ng/mL B-Natriuretic Peptide ( - 100) pg/mL Total Protein 7.0 (6.4-8.9) g/dL Albumin 4.0 (3.2-5.2) g/dL Globulin 3.0 (2-4) g/dL Albumin/Globulin Ratio 1.3 (1-3) Result Diagrams: 11/25/17 23:37 11/25/17 23:37 Lab Statement: Any lab studies that have been ordered have been reviewed, and results considered in the medical decision making process. - Radiology CXR Xray Interpretation: No Acute Changes - normal Radiology Interpretation Completed By: ED Physician - EKG 00:31 Cardiac Rate: NL EKG Rhythm: Sinus Rhythm - 75 BPM EKG Interpretation: no acute changes Chest Pain Course/Dx - Course Assessment/Plan: The patient is a 57 year old female who presents with chest pain that began 30 minutes ago. Bloodwork was obtained. EKG was obtained. The patient is diagnosed with chest pain rule out NC and history of COPD. The patient will be admitted to [facility] [place] to Dr. Gregory. - Chest Pain Differential Diagnosis/HQI/PQRI: Acute NC, ACS, Angina, CHF, Chest Wall, Lower Respiratory Infection - Diagnoses Provider Diagnoses: Chest pain, rule out acute myocardial infarction, History of COPD Discharge - Discharge Plan Condition: Good Disposition: ADMITTED TO [facility] The documentation as recorded by the Ricardo españa Jennifer accurately reflects the service I personally performed and the decisions made by , Greg Goss.
--- NOTE | 2017-11-26 06:39 | HP ---
H&P (Free Text) History and Physical: PCP: KAMERON Zelaya MD Date/Time: 11/26/2017 0110 CC: chest pain HPI: Mrs Sol is a 57YO female with complicated HX as outlined below who presents reporting onset ~2200 of 6-10 non-radiating chest pressure while lying in bed associated with SOB, light-headedness, & palpitations but no N/V, sweats, cough, congestion, or other issues. Vital are stable. Labs are unremarkable excepting a lactic acid of 2.3. ECG is NSR rate 75, no ischemia. PMedHx moyamoya s/p intracranial bypass x2 COPD CHF CVA x2 PAOD s/p L carotid stenting x2 DM2 seizure disorder JOSIE on CPAP HTN HLD GERD borderline personality disorder bipolar disorder depression anxiety morbid obesity Ambulatory Orders Lansoprazole SOLUTAB* [Prevacid Solutab*] 30 mg PO QAM 05/14/13 Multivitamins/Minerals TAB* [Theragran/minerals TAB*] 1 tab PO QAM 11/25/15 Asenapine(NF) [Saphris(NF)] 10 mg SL BEDTIME 05/02/16 Ranitidine TAB (NF) [Zantac TAB (NF)] 300 mg PO BEDTIME 05/02/16 Calcium [Oyster-Serafin 500] 500 mg PO BID 06/13/16 Carvedilol TAB* [Coreg TAB*] 6.25 mg PO BID 06/13/16 Glimepiride (NF) 4 mg PO DAILY 06/13/16 Liraglutide (NF) [Victoza (NF)] 1.8 mg SUBCUT QPM 06/13/16 dilTIAZem HCl [Diltiazem 24Hr ER] 120 mg PO BEDTIME 06/13/16 Aspirin TAB* [Aspirin 325 MG TAB*] 325 mg PO BEDTIME 02/24/17 Docusate CAP* [Colace Cap*] 100 mg PO BID 02/24/17 Lisinopril TAB* [Prinivil TAB 10 MG*] 20 mg PO BEDTIME 02/24/17 Ondansetron TAB* [Zofran 4 MG Tab*] 4 mg PO Q6H PRN 02/24/17 Divalproex ER TAB(*) [Depakote ER TAB(*)] 1,000 mg PO BID #60 tab 03/12/17 Desvenlafaxine Succinate [Pristiq] 100 mg PO QAM 06/03/17 buPROPion TAB* [Wellbutrin TAB*] 300 mg PO DAILY 06/24/17 Atorvastatin* [Lipitor 40 MG*] 40 mg PO 1700 #30 tab 06/25/17 Albuterol Sulfate [Proventil Hfa] 108 mcg INH DAILY PRN 10/27/17 Cranberry (Vaccinium Macrocarp [Cranberry Super Strength] 15,000 mg PO DAILY Butalb/Acetamin/Caff TAB* [Fioricet TAB*] 1 tab PO Q6H PRN 11/26/17 Gabapentin CAP(*) [Neurontin 100 mg CAP(*)] 100 mg PO AC 11/26/17 Gabapentin CAP(*) [Neurontin 300 CAP(*)] 300 mg PO BEDTIME 11/26/17 clonazePAM TAB(*) [KlonoPIN TAB(*)] 1 mg PO TID PRN 11/26/17 Allergies nitrofurantoin Allergy (Severe, Verified 11/25/17 23:05) Rash meperidine Allergy (Intermediate, Verified 11/25/17 23:05) Headache clavulanic acid Adverse Reaction (Intermediate, Verified 11/25/17 23:05) Nausea And Vomiting morphine Adverse Reaction (Intermediate, Verified 11/25/17 23:05) Nausea PSurgHx L carotid stent intracranial bypass x2 section x2 appendectomy endometrial ablation SocHx: quit smoking ~2004, denies alcohol & recreational drugs; lives with her family; on disability; full code status FamHx: positive for DM2 & cancer ROS: as above, otherwise reviewed and all were negative vitals: Vital Signs Temp 36.1 C 11/26/17 03:23 Pulse 85 11/26/17 03:23 Resp 18 11/26/17 06:42 BP 127/59 11/26/17 03:23 Pulse Ox 96 11/26/17 03:23 Intake & Output 11/25/17 11/25/17 11/26/17 11:59 23:59 11:59 Intake Total 0 Balance 0 Weight 137.438 kg 138.482 kg Intake: Oral 0 Constitutional: NAD, normally developed, morbidly obese white female HEENM: atraumatic; sclera/conjunctiva: anicteric/clear; hearing: clinically intact; oropharynx: clear, mucosa moist Neck: soft tissue: non-tender; thyroid: normal Pulmonary: clear to auscultation bilaterally, good aeration, no accessory muscle use CV: RR/RR, normal S1S2, no carotid bruit, no jugular venous distention, 2+ B DP/ PT, no edema Abdominal: soft, non-distended, non-tender, no rebound/guarding/rigidity, normoactive bowel sounds, no hepatosplenomegaly or masses, no costovertebral angle tenderness Musculoskeletal: general: grossly intact, no tenderness w/ palpation Integumental: normal appearance and texture of exposed skin Psychiatric orientation: AA&O to PPS affect: calm mood: cooperative eye contact: fair content: reliable responses: mildly slowed insight: fair Testing: Lab Results 11/25/17 11/25/17 11/25/17 Range/Units 23:37 23:37 23:37 WBC 10.1 (3.5-10.8) 10^3/ul RBC 4.74 (4.0-5.4) 10^6/ul Hgb 13.6 (12.0-16.0) g/dl Hct 40 (35-47) % MCV 85 (80-97) fL MCH 29 (27-31) pg MCHC 34 (31-36) g/dl RDW 17 H (10.5-15) % Plt Count 206 (150-450) 10^3/ul MPV 9 (7.4-10.4) um3 Neut % (Auto) 49.2 (38-83) % Lymph % (Auto) 41.2 (25-47) % [place] % (Auto) 7.6 H (0-7) % Eos % (Auto) 1.5 (0-6) % Baso % (Auto) 0.5 (0-2) % Absolute Neuts (auto) 5.0 (1.5-7.7) 10^3/ul Absolute Lymphs (auto) 4.2 (1.0-4.8) 10^3/ul Absolute Monos (auto) 0.8 (0-0.8) 10^3/ul Absolute Eos (auto) 0.2 (0-0.6) 10^3/ul Absolute Basos (auto) 0.1 (0-0.2) 10^3/ul Absolute Nucleated RBC 0 10^3/ul Nucleated RBC % 0.2 INR (Anticoag Therapy) 1.06 H (0.77-1.02) APTT 32.2 (26.0-36.3) seconds Sodium (133-145) mmol/L Potassium (3.5-5.0) mmol/L Chloride (101-111) mmol/L Carbon Dioxide (22-32) mmol/L Anion Gap (2-11) mmol/L BUN (6-24) mg/dL Creatinine (0.51-0.95) mg/dL Est GFR ( Amer) (>60) Est GFR (Non-Af Amer) (>60) BUN/Creatinine Ratio (8-20) Glucose (70-100) mg/dL Lactic Acid (0.5-2.0) mmol/L Calcium (8.6-10.3) mg/dL Total Bilirubin (0.2-1.0) mg/dL AST (13-39) U/L ALT (7-52) U/L Alkaline Phosphatase (34-104) U/L Troponin I (<0.04) ng/mL B-Natriuretic Peptide 41 ( - 100) pg/mL Total Protein (6.4-8.9) g/dL Albumin (3.2-5.2) g/dL Globulin (2-4) g/dL Albumin/Globulin Ratio (1-3) 11/25/17 11/25/17 11/26/17 Range/Units 23:37 23:37 03:00 WBC (3.5-10.8) 10^3/ul RBC (4.0-5.4) 10^6/ul Hgb (12.0-16.0) g/dl Hct (35-47) % MCV (80-97) fL MCH (27-31) pg MCHC (31-36) g/dl RDW (10.5-15) % Plt Count (150-450) 10^3/ul MPV (7.4-10.4) um3 Neut % (Auto) (38-83) % Lymph % (Auto) (25-47) % [place] % (Auto) (0-7) % Eos % (Auto) (0-6) % Baso % (Auto) (0-2) % Absolute Neuts (auto) (1.5-7.7) 10^3/ul Absolute Lymphs (auto) (1.0-4.8) 10^3/ul Absolute Monos (auto) (0-0.8) 10^3/ul Absolute Eos (auto) (0-0.6) 10^3/ul Absolute Basos (auto) (0-0.2) 10^3/ul Absolute Nucleated RBC 10^3/ul Nucleated RBC % INR (Anticoag Therapy) (0.77-1.02) APTT (26.0-36.3) seconds Sodium 137 (133-145) mmol/L Potassium 4.1 (3.5-5.0) mmol/L Chloride 102 (101-111) mmol/L Carbon Dioxide 27 (22-32) mmol/L Anion Gap 8 (2-11) mmol/L BUN 11 (6-24) mg/dL Creatinine 0.75 (0.51-0.95) mg/dL Est GFR ( Amer) 103.2 (>60) Est GFR (Non-Af Amer) 80.2 (>60) BUN/Creatinine Ratio 14.7 (8-20) Glucose 152 H (70-100) mg/dL Lactic Acid 2.3 H* 2.4 H* (0.5-2.0) mmol/L Calcium 9.4 (8.6-10.3) mg/dL Total Bilirubin 0.40 (0.2-1.0) mg/dL AST 13 (13-39) U/L ALT 14 (7-52) U/L Alkaline Phosphatase 47 (34-104) U/L Troponin I 0.00 (<0.04) ng/mL B-Natriuretic Peptide ( - 100) pg/mL Total Protein 7.0 (6.4-8.9) g/dL Albumin 4.0 (3.2-5.2) g/dL Globulin 3.0 (2-4) g/dL Albumin/Globulin Ratio 1.3 (1-3) 11/26/17 11/26/17 Range/Units 03:00 06:06 WBC (3.5-10.8) 10^3/ul RBC (4.0-5.4) 10^6/ul Hgb (12.0-16.0) g/dl Hct (35-47) % MCV (80-97) fL MCH (27-31) pg MCHC (31-36) g/dl RDW (10.5-15) % Plt Count (150-450) 10^3/ul MPV (7.4-10.4) um3 Neut % (Auto) (38-83) % Lymph % (Auto) (25-47) % [place] % (Auto) (0-7) % Eos % (Auto) (0-6) % Baso % (Auto) (0-2) % Absolute Neuts (auto) (1.5-7.7) 10^3/ul Absolute Lymphs (auto) (1.0-4.8) 10^3/ul Absolute Monos (auto) (0-0.8) 10^3/ul Absolute Eos (auto) (0-0.6) 10^3/ul Absolute Basos (auto) (0-0.2) 10^3/ul Absolute Nucleated RBC 10^3/ul Nucleated RBC % INR (Anticoag Therapy) (0.77-1.02) APTT (26.0-36.3) seconds Sodium (133-145) mmol/L Potassium (3.5-5.0) mmol/L Chloride (101-111) mmol/L Carbon Dioxide (22-32) mmol/L Anion Gap (2-11) mmol/L BUN (6-24) mg/dL Creatinine (0.51-0.95) mg/dL Est GFR ( Amer) (>60) Est GFR (Non-Af Amer) (>60) BUN/Creatinine Ratio (8-20) Glucose (70-100) mg/dL Lactic Acid (0.5-2.0) mmol/L Calcium (8.6-10.3) mg/dL Total Bilirubin (0.2-1.0) mg/dL AST (13-39) U/L ALT (7-52) U/L Alkaline Phosphatase (34-104) U/L Troponin I 0.00 0.00 (<0.04) ng/mL B-Natriuretic Peptide ( - 100) pg/mL Total Protein (6.4-8.9) g/dL Albumin (3.2-5.2) g/dL Globulin (2-4) g/dL Albumin/Globulin Ratio (1-3) ECG, personally reviewed: NSR rate 75, no ischemia CXR, personally reviewed: no acute process Impression: 57F HX moyamoya s/p intracranial bypass x2, CVA x2, CHF, DIAGNOSIS & PLAN Primary chest pain r/o ACS : telemetry : trend troponin : ECHO in AM : supplemental oxygen : consider cardiology consultation in AM pending above results : supportive care Secondary moyamoya s/p intracranial bypass x2 : continue aspirin COPD : albuterol nebs CHF : strict I&Os : daily weights CVA x2 : continue aspirin HLD/ PAOD s/p L carotid stenting x2 : continue atorvastatin DM2 : continue glimepiride & liraglutide seizure disorder : continue divalproex & gabapentin JOSIE : continue home CPAP HTN : continue lisinopril, carvedilol, & diltiazem GERD : continue lansoprazole & ranitidine bipolar disorder : continue divalproex & gabapentin depression : continue desvenlafaxine anxiety : continue bupropion & clonazepam Admission Rational: observation for r/o ACS DVTp: heparin SQ Code Status: full HCP: daughterDebra
[2017-11-26] MEDS ORDERED: Omeprazole CAP* 20 MG PO SCH (07:30)
[2017-11-26] MEDS ORDERED: Dextrose 50% Syringe 50 ML* 25 GM/50 ML SYRINGE IV PUSH PRN (08:30)
--- NOTE | 2017-11-26 08:36 | RAD ---
Indication: Chest pain. Single frontal view of the chest performed at 2320 hours was reviewed. Comparison is made with previous exam dated October 13, 2017. No mediastinal shift is noted. Heart is of normal size and configuration. Lung franco appear clear. IMPRESSION: NO ACTIVE CARDIOPULMONARY DISEASE IS NOTED.
[2017-11-26] MEDS ORDERED: buPROPion TAB* 100 MG PO SCH (09:00)
[2017-11-26] MEDS ORDERED: Glimepiride (NF) 2 MG TAB PO SCH (09:00)
[2017-11-26] MEDS ORDERED: Docusate CAP* 100 MG PO SCH ×2 (09:00)
[2017-11-26] MEDS ORDERED: Carvedilol TAB* 6.25 MG PO SCH (09:00)
[2017-11-26] MEDS ORDERED: Divalproex ER TAB(*) 500 MG PO SCH (09:00)
[2017-11-26] MEDS ORDERED: DESVENLAFAXINE 100 MG PO SCH (09:00)
[2017-11-26] MEDS: Gabapentin CAP(*) 100 MG PO SCH ×2 (09:26→12:57)
[2017-11-26] MEDS: clonazePAM TAB(*) 1 MG PO PRN ×2 (09:30→12:57)
[2017-11-26 09:33] LABS: ABS Basophils 0 10^3/ul (0-0.2); ABS Eosinophils 0.1 10^3/ul (0-0.6); ABS Lymphocytes 3.1 10^3/ul (1.0-4.8); ABS Monocytes 0.7 10^3/ul (0-0.8); ABS Neutrophils 4.5 10^3/ul (1.5-7.7); ABS Nucleated RBC 0 10^3/ul; Eosinophil % 1.5 % (0-6); Hematocrit 39 % (35-47); Hemoglobin 13.2 g/dl (12.0-16.0); Lymphocyte % 36.6 % (25-47); Mean Corpuscular HGB Conc 34 g/dl (31-36); Mean Corpuscular Hemoglobin 29 pg (27-31); Mean Corpuscular Volume 85 fL (80-97); Mean Platelet Volume 9 um3 (7.4-10.4); Nucleated Red Blood Cells % 0.1; Platelet Count 206 10^3/ul (150-450); Red Blood Count 4.57 10^6/ul (4.0-5.4); Red Cell Distribution Width 17 % (10.5-15); White Blood Count 8.5 10^3/ul (3.5-10.8)
[2017-11-26 09:35] LABS: INR 1.05 (0.77-1.02)
[2017-11-26 09:50] LABS: EGFR Non-African American 80.2 (>60)
[2017-11-26] MEDS ORDERED: Insulin LISPRO* 1 UNITS UNIT SUBCUT SCH (11:30)
[2017-11-26 12:28] VITALS: BP 125/84
[2017-11-26] MEDS ORDERED: Heparin VIAL(*) 5000 UNITS/ML VIAL (FIVE THOUSAND) SUBCUT SCH (14:00)
--- NOTE | 2017-11-26 14:54 | PN ---
Hospitalist Progress Note Date of Service: 11/26/17 . HOSPITALIST DISCHARGE NOTE: See dc instructions and summary by me. Patient stable for dc dc instructions reviewed with the patient at the bedside. DC patient home today; return for outpatient stress test on Monday. .
[2017-11-26] MEDS ORDERED: Atorvastatin* 40 MG TAB PO SCH (17:00)
[2017-11-26] MEDS ORDERED: Liraglutide (NF) 18 MG/3 ML SUBCUT SCH (18:00)
[2017-11-26] MEDS ORDERED: Gabapentin CAP(*) 300 MG PO SCH (21:00)
[2017-11-26] MEDS ORDERED: Famotidine TAB* 20 MG PO SCH (21:00)
[2017-11-26] MEDS ORDERED: Lisinopril TAB* 10 MG PO SCH (21:00)
[2017-11-26] MEDS ORDERED: Aspirin TAB* 325 MG PO SCH (21:00)
[2017-11-26] MEDS ORDERED: Asenapine(NF) 10 MG TAB.SL SL SCH (21:00)
[2017-11-26] MEDS ORDERED: Diltiazem CD CAP* 120 MG PO SCH (21:00)
[2017-11-27] MEDS ORDERED: Aspirin EC Low Dose* 81 MG TAB.EC PO SCH (09:00)
== END 2017-11-26 15:13 | disposition home or self-care (01) ==
LOC: ED 22:55 → MEDTELE 11-26 01:14
PROVIDERS: ADMIT Hospitalist; ATTEND Internal Medicine
DX: R07.9 Chest pain, unspecified (principal); R06.02 Shortness of breath; R42 Dizziness and giddiness; R00.2 Palpitations; I11.0 Hypertensive heart disease with heart failure; I50.9 Heart failure, unspecified; J44.9 Chronic obstructive pulmonary disease, unspecified; Z86.73 Personal history of transient ischemic attack (TIA), and cerebral infarction without residual deficits; E11.9 Type 2 diabetes mellitus without complications; G40.909 Epilepsy, unspecified, not intractable, without status epilepticus; E78.5 Hyperlipidemia, unspecified; K21.9 Gastro-esophageal reflux disease without esophagitis; I67.5 Moyamoya disease; F31.9 Bipolar disorder, unspecified; F41.9 Anxiety disorder, unspecified; E66.01 Morbid (severe) obesity due to excess calories; G47.33 Obstructive sleep apnea (adult) (pediatric); Z79.899 Other long term (current) drug therapy; Z88.8 Allergy status to other drugs, medicaments and biological substances; Z87.891 Personal history of nicotine dependence; I44.4 Left anterior fascicular block
CPT/HCPCS: 36415; 71045; 80053; 82565; 83605; 83880; 84484; 84520; 85025; 85610; 85730; 93005; 96360; 96361; 99284; A9270-GY; G0378

== ENCOUNTER 2017-12-13 22:00 | Observation (INO) | payer MEDICARE, MEDICAID ==
[2017-12-13] MEDS ORDERED: methylPREDNISolone 125 MG* 2 ML VIAL IV ONE (22:47)
[2017-12-13] MEDS ORDERED: Albuterol/Ipratropium NEB.SOL* Albuterol 2.5 MG/Ipratropium 0.5 MG 3 ML INH ONE (22:47)
[2017-12-13] MEDS ORDERED: Aspirin Low Dose CHEW TAB* 81 MG PO ONE (22:49)
[2017-12-13] MEDS ORDERED: Albuterol 2.5 MG/3 ML NEB.SOL* (0.083%) INH SCH (23:00)
[2017-12-13 23:35] LABS: ABS Basophils 0.1 10^3/ul (0-0.2); ABS Eosinophils 0.1 10^3/ul (0-0.6); ABS Lymphocytes 3.7 10^3/ul (1.0-4.8); ABS Monocytes 0.7 10^3/ul (0-0.8); ABS Neutrophils 5.1 10^3/ul (1.5-7.7); ABS Nucleated RBC 0 10^3/ul; Eosinophil % 1.4 % (0-6); Hematocrit 40 % (35-47); Hemoglobin 13.6 g/dl (12.0-16.0); Lymphocyte % 37.7 % (25-47); Mean Corpuscular HGB Conc 34 g/dl (31-36); Mean Corpuscular Hemoglobin 29 pg (27-31); Mean Corpuscular Volume 86 fL (80-97); Mean Platelet Volume 9 um3 (7.4-10.4); Nucleated Red Blood Cells % 0; Platelet Count 203 10^3/ul (150-450); Red Blood Count 4.69 10^6/ul (4.0-5.4); Red Cell Distribution Width 17 % (10.5-15); White Blood Count 9.7 10^3/ul (3.5-10.8)
[2017-12-13] MEDS ORDERED: Furosemide IV* 10 MG/ML 2 ML VIAL (20 MG) IV ONE (23:41)
[2017-12-13 23:43] LABS: INR 1.01 (0.77-1.02)
[2017-12-13 23:54] LABS: EGFR Non-African American 84.1 (>60)
--- NOTE | 2017-12-14 01:45 | ED ---
Mateus Michaels Abhishek, scribed for João Stout MD on 12/14/17 at 0132 . Breast Complaint - HPI Summary HPI Summary: The pt is a 57 y/o female with a chief complaint of SOB. The pt uses oxygen at home (3 L) and has a pertinent PMHx of COPD (emphysema). The Pt is also unable to walk without assistance (walker) at home. Pt also reports of chest pain. The patient rates the pain 5/10 in severity. Symptoms aggravated by nothing. Symptoms alleviated by nothing. Pertinent PMHx of COPD. - Additional Pertinent History Primary Care Physician: [id number] - Allergy/Home Medications Allergies/Adverse Reactions: Allergies Allergy/AdvReac Type Severity Reaction Status Date / Time nitrofurantoin Allergy Severe Rash Verified 11/25/17 23:05 meperidine Allergy Intermediate Headache Verified 11/25/17 23:05 clavulanic acid AdvReac Intermediate Nausea And Verified 11/25/17 23:05 Vomiting morphine AdvReac Intermediate Nausea Verified 11/25/17 23:05 PMH/Surg Hx/FS Hx/Imm Hx Endocrine/Hematology History: Reports: Hx Diabetes - DM II, Other Endocrine/ Hematological Disorders Denies: Hx Thyroid Disease, Hx Anemia, Hx Unexplained Bleeding Cardiovascular History: Reports: Hx Congestive Heart Failure, Hx Hypercholesterolemia, Hx Hypertension Denies: Hx Aneurysm, Hx Angina, Hx Angioplasty, Hx Auto Implanted Cardiovert Defib, Hx Cardiac Arrest, Hx Cardiomegaly, Hx Congenital Heart Disease, Hx Coronary Artery Disease, Hx Deep Vein Thrombosis, Hx Embolism, Hx Hypotension, Hx Myocardial Infarction, Hx Pacemaker/ICD, Hx Peripheral Vascular Disease, Hx Rheumatic Fever, Hx Syncope, Hx Valvular Heart Disease, Other Cardiovascular Problems/Disorders Respiratory History: Reports: Hx Asthma, Hx Chronic Bronchitis, Hx Chronic Obstructive Pulmonary Disease (COPD) - 2L O2 at home, Hx Pneumonia, Hx Sleep Apnea - CPAP in room for use, Other Respiratory Problems/Disorders - PNEUMONIA IN 2001 Denies: Hx Cystic Fibrosis, Hx Lung Cancer, Hx Pleural Effusion, Hx Pulmonary Edema, Hx Pulmonary Embolism, Hx Seasonal Allergies GI History: Reports: Hx Gastroesophageal Reflux Disease, Other GI Disorders - "sphincter in stomach not working" Denies: Hx Cirrhosis, Hx Crohn's Disease, Hx Diverticulosis, Hx Gall Bladder Disease, Hx Gastrointestinal Bleed, Hx Hiatal Hernia, Hx Irritable Bowel, Hx Jaundice, Hx Obstructive Bowel, Hx Ileostomy, Hx Pyloric Stenosis, Hx Ulcer History: Reports: Hx Acute Renal Failure, Hx Renal Disease Denies: Hx Benign Prostatic Hyperplasia, Hx Chronic Renal Failure, Hx Dialysis, Hx Kidney Infection, Hx Kidney Stones, Other Problems/Disorders Musculoskeletal History: Reports: Hx Arthritis, Hx Back Problems, Hx Orthopedic Injury, Hx Scoliosis Sensory History: Reports: Hx Contacts or Glasses, Hx Vision Problem Denies: Hx Cataracts, Hx Eye Injury, Hx Hearing Aid, Hx Hearing Problem, Other Sensory Impairments Opthamlomology History: Reports: Hx Contacts or Glasses, Hx Vision Problem Denies: Hx Cataracts, Hx Eye Injury, Other Sensory Impairments Neurological History: Reports: Hx Headaches, Hx Migraine, Hx Nerve Disease, Hx Seizures, Hx Transient Ischemic Attacks (TIA), Other Neuro Impairments/ Disorders - Hx of 2 TIA. Hx moyamoya disease. 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 . endarterectomy-left internal carotid Hx Anesthesia Reactions: No - Immunization History Date of Tetanus Vaccine: unk Date of Influenza Vaccine: 06/2017 Infectious Disease History: No Infectious Disease History: Reports: Hx Clostridium Difficile - 1.5 years ago Denies: Hx Hepatitis, Hx Human Immunodeficiency Virus (HIV), Hx of Known/ Suspected MRSA, Hx Shingles, Hx Tuberculosis, Hx Known/Suspected VRE, Hx Known/ Suspected VRSA, History Other Infectious Disease, Traveled Outside the [place] in Last 30 Days - Family History Known Family History: Positive: Cardiac Disease, Other - bipolar disorder; alcohol abuse - Social History Alcohol Use: None Alcohol Amount: once/year Hx Substance Use: No Substance Use Type: Reports: None Hx Tobacco Use: Yes Smoking Status (MU): Former Smoker Type: Cigarettes Amount Used/How Often: quit in 2004 Have You Smoked in the Last Year: No Review of Systems Constitutional: Negative Eyes: Negative ENT: Negative Positive: Chest Pain Positive: Shortness Of Breath Gastrointestinal: Negative Genitourinary: Negative Musculoskeletal: Other - Not ambulatory without walker Skin: Negative Neurological: Negative Psychological: Normal All Other Systems Reviewed And Are Negative: Yes Physical Exam - Summary Physical Exam Summary: VITAL SIGNS: Reviewed. GENERAL: ~Patient is morbidly obese (FEMALE) who is lying comfortable in the stretcher. Patient is not in any acute respiratory distress. HEAD AND FACE: No signs of trauma. No ecchymosis, hematomas or skull depressions. No sinus tenderness. EYES: PERRLA, EOMI x 2, No injected conjunctiva, no nystagmus. EARS: Hearing grossly intact. Ear canals and tympanic membranes are within normal limits. MOUTH: Oropharynx within normal limits. NECK: Supple, trachea is midline, no adenopathy, no JVD, no carotid bruit, no c- spine tenderness, neck with full ROM. CHEST: left chest wall tenderness SKIN: Dry and warm o tenderness at palpation LUNGS: Decrease breath sounds bilaterally CVS: Regular rate and rhythm, S1 and S2 present, no murmurs or gallops appreciated. ABDOMEN: Soft, non-tender. No signs of distention. No rebound no guarding, and no masses palpated. Bowel sounds are normal. EXTREMITIES: FROM in all major joints, no edema, no cyanosis or clubbing. NEURO: Alert and oriented x 3. No acute neurological deficits. Speech is normal and follows commands. Triage Information Reviewed: Yes Vital Signs On Initial Exam: Initial Vitals Temp Pulse Resp BP Pulse Ox 97.1 F 99 20 125/59 94 12/13/17 22:07 12/13/17 22:07 12/13/17 22:07 12/13/17 22:07 12/13/17 22:07 Vital Signs Reviewed: Yes Diagnostics - Vital Signs Vital Signs Temp Pulse Resp BP Pulse Ox 12/14/17 00:30 88 24 142/53 93 12/14/17 00:01 87 22 124/53 93 12/14/17 00:00 87 24 93 12/13/17 23:47 87 22 96 12/13/17 23:41 87 22 93 12/13/17 23:30 89 24 115/60 91 12/13/17 22:59 86 25 94 12/13/17 22:30 93 159/74 93 12/13/17 22:11 102 26 90 03/14/18 22:09 125/59 12/13/17 22:07 97.1 F 99 20 125/59 94 - Laboratory Lab Results: Lab Results 12/13/17 12/13/17 12/13/17 Range/Units 23:20 23:20 23:20 WBC 9.7 (3.5-10.8) 10^3/ul RBC 4.69 (4.0-5.4) 10^6/ul Hgb 13.6 (12.0-16.0) g/dl Hct 40 (35-47) % MCV 86 (80-97) fL MCH 29 (27-31) pg MCHC 34 (31-36) g/dl RDW 17 H (10.5-15) % Plt Count 203 (150-450) 10^3/ul MPV 9 (7.4-10.4) um3 Neut % (Auto) 52.1 (38-83) % Lymph % (Auto) 37.7 (25-47) % [place] % (Auto) 7.5 H (0-7) % Eos % (Auto) 1.4 (0-6) % Baso % (Auto) 1.3 (0-2) % Absolute Neuts (auto) 5.1 (1.5-7.7) 10^3/ul Absolute Lymphs (auto) 3.7 (1.0-4.8) 10^3/ul Absolute Monos (auto) 0.7 (0-0.8) 10^3/ul Absolute Eos (auto) 0.1 (0-0.6) 10^3/ul Absolute Basos (auto) 0.1 (0-0.2) 10^3/ul Absolute Nucleated RBC 0 10^3/ul Nucleated RBC % 0 INR (Anticoag Therapy) 1.01 (0.77-1.02) APTT 29.8 (26.0-36.3) seconds Sodium 135 (133-145) mmol/L Potassium 4.1 (3.5-5.0) mmol/L Chloride 99 L (101-111) mmol/L Carbon Dioxide 25 (22-32) mmol/L Anion Gap 11 (2-11) mmol/L BUN 18 (6-24) mg/dL Creatinine 0.72 (0.51-0.95) mg/dL Est GFR ( Amer) 108.2 (>60) Est GFR (Non-Af Amer) 84.1 (>60) BUN/Creatinine Ratio 25.0 H (8-20) Glucose 231 H (70-100) mg/dL Lactic Acid (0.5-2.0) mmol/L Calcium 9.9 (8.6-10.3) mg/dL Magnesium 1.8 L (1.9-2.7) mg/dL Total Bilirubin 0.50 (0.2-1.0) mg/dL AST 11 L (13-39) U/L ALT 15 (7-52) U/L Alkaline Phosphatase 50 (34-104) U/L Troponin I 0.00 (<0.04) ng/mL C-Reactive Protein 10.60 H (< 5.00) mg/L Total Protein 7.0 (6.4-8.9) g/dL Albumin 3.9 (3.2-5.2) g/dL Globulin 3.1 (2-4) g/dL Albumin/Globulin Ratio 1.3 (1-3) // Range/Units 23:20 WBC (3.5-10.8) 10^3/ul RBC (4.0-5.4) 10^6/ul Hgb (12.0-16.0) g/dl Hct (35-47) % MCV (80-97) fL MCH (27-31) pg MCHC (31-36) g/dl RDW (10.5-15) % Plt Count (150-450) 10^3/ul MPV (7.4-10.4) um3 Neut % (Auto) (38-83) % Lymph % (Auto) (25-47) % [place] % (Auto) (0-7) % Eos % (Auto) (0-6) % Baso % (Auto) (0-2) % Absolute Neuts (auto) (1.5-7.7) 10^3/ul Absolute Lymphs (auto) (1.0-4.8) 10^3/ul Absolute Monos (auto) (0-0.8) 10^3/ul Absolute Eos (auto) (0-0.6) 10^3/ul Absolute Basos (auto) (0-0.2) 10^3/ul Absolute Nucleated RBC 10^3/ul Nucleated RBC % INR (Anticoag Therapy) (0.77-1.02) APTT (26.0-36.3) seconds Sodium (133-145) mmol/L Potassium (3.5-5.0) mmol/L Chloride (101-111) mmol/L Carbon Dioxide (22-32) mmol/L Anion Gap (2-11) mmol/L BUN (6-24) mg/dL Creatinine (0.51-0.95) mg/dL Est GFR ( Amer) (>60) Est GFR (Non-Af Amer) (>60) BUN/Creatinine Ratio (8-20) Glucose (70-100) mg/dL Lactic Acid 2.9 H* (0.5-2.0) mmol/L Calcium (8.6-10.3) mg/dL Magnesium (1.9-2.7) mg/dL Total Bilirubin (0.2-1.0) mg/dL AST (13-39) U/L ALT (7-52) U/L Alkaline Phosphatase (34-104) U/L Troponin I (<0.04) ng/mL C-Reactive Protein (< 5.00) mg/L Total Protein (6.4-8.9) g/dL Albumin (3.2-5.2) g/dL Globulin (2-4) g/dL Albumin/Globulin Ratio (1-3) Result Diagrams: 12/13/17 23:20 12/13/17 23:20 Lab Statement: Any lab studies that have been ordered have been reviewed, and results considered in the medical decision making process. - Radiology Chest X-ray Radiology Interpretation Completed By: ED Physician - CXR reveals, per ED physician, bilateral venous congestion (CHF). - EKG 2225 EKG Rhythm: Sinus Rhythm - 91 bpm EKG Interpretation: EKG at 2225 reveals LAFB, poor R wave progression at 2225 Breast Pain Course/Dx - Course Course Of Treatment: The pt is a 57 y/o female with a chief complaint of a SOB. Pt also reports of chest pain. PErtinent PMHx includes COPD. In the [facility], the pt received an EKG and Chest X-ray. We discussed pt care with Dr. Contreras and the pt will be admitted to the [facility]. The Dx will be CHF and COPD. - Diagnoses Provider Diagnoses: COPD (chronic obstructive pulmonary disease) - Provider Notifications Discussed Care Of Patient With: Bay Gregory - we discussed pt care Instructed by Provider To: Admit As Inpatient Discharge - Discharge Plan Condition: Stable Disposition: ADMITTED TO [facility] The documentation as recorded by the Mateus españa Abhishek accurately reflects the service I personally performed and the decisions made by , João Stout MD.
[2017-12-14] MEDS ORDERED: Albuterol HFA INHALER* 8 gm MDI INH PRN (04:46)
--- NOTE | 2017-12-14 04:50 | HP ---
H&P (Free Text) History and Physical: PCP: KAMERON Zelaya MD Date/Time: 12/14/2017 0045 CC: chest pain/SOB HPI: Mrs Sol is a 57YO female with complicated HX as outlined below who presents reporting onset 2-3 days ago of SOB which worsened last evening around 1930 and became associated with moderate precordial chest pressure. She experienced some spinning dizziness and dry cough with it, but denies sweats, N/ V, palpitations, congestion, or other issues. She underwent a chemical nuclear stress test 12/05/2017 revealing an intermediate determination with partially fixed & reversible defect. At this time she is pain free. She relates activity made symptoms worse, rest better. She admits to sodium indiscretion having eaten cured ham yesterday for breakfast and then pizza for dinner. PMedHx moyamoya s/p intracranial bypass x2 COPD diastolic HF CVA x2 PAOD s/p L carotid stenting x2 DM2 seizure disorder JOSIE on CPAP HTN HLD GERD borderline personality disorder bipolar disorder depression anxiety morbid obesity Ambulatory Orders Multivitamins/Minerals TAB* [Theragran/minerals TAB*] 1 tab PO QAM 11/25/15 Asenapine(NF) [Saphris(NF)] 10 mg SL BEDTIME 05/02/16 Ranitidine TAB (NF) [Zantac TAB (NF)] 300 mg PO BEDTIME 05/02/16 Calcium [Oyster-Serafin 500] 500 mg PO BID 06/13/16 Carvedilol TAB* [Coreg TAB*] 6.25 mg PO BID 06/13/16 Glimepiride (NF) 4 mg PO DAILY 06/13/16 Liraglutide (NF) [Victoza (NF)] 1.8 mg SUBCUT QPM 06/13/16 dilTIAZem HCl [Diltiazem 24Hr ER] 120 mg PO BEDTIME 06/13/16 Aspirin TAB* [Aspirin 325 MG TAB*] 325 mg PO BEDTIME 02/24/17 Docusate CAP* [Colace Cap*] 100 mg PO BID 02/24/17 Lisinopril TAB* [Prinivil TAB 10 MG*] 20 mg PO BEDTIME 02/24/17 Ondansetron TAB* [Zofran 4 MG Tab*] 4 mg PO Q6H PRN 02/24/17 Divalproex ER TAB(*) [Depakote ER TAB(*)] 1,000 mg PO BID #60 tab 03/12/17 buPROPion TAB* [Wellbutrin TAB*] 300 mg PO DAILY 06/24/17 Atorvastatin* [Lipitor 40 MG*] 40 mg PO 1700 #30 tab 06/25/17 Albuterol Sulfate [Proventil Hfa] 108 mcg INH DAILY PRN 10/27/17 Cranberry (Vaccinium Macrocarp [Cranberry Super Strength] 15,000 mg PO DAILY Butalb/Acetamin/Caff TAB* [Fioricet TAB*] 1 tab PO Q6H PRN 11/26/17 Gabapentin CAP(*) [Neurontin 100 mg CAP(*)] 100 mg PO AC 11/26/17 Gabapentin CAP(*) [Neurontin 300 CAP(*)] 300 mg PO BEDTIME 11/26/17 clonazePAM TAB(*) [Klonopin TAB(*)] 1 mg PO TID PRN 11/26/17 Desvenlafaxine Succinate [Pristiq] 100 mg PO QAM 12/14/17 Pantoprazole Sodium [Pantoprazole Sodium] 40 mg PO QAM 12/14/17 Allergies nitrofurantoin Allergy (Severe, Verified 11/25/17 23:05) Rash meperidine Allergy (Intermediate, Verified 11/25/17 23:05) Headache clavulanic acid Adverse Reaction (Intermediate, Verified 11/25/17 23:05) Nausea And Vomiting morphine Adverse Reaction (Intermediate, Verified 11/25/17 23:05) Nausea PSurgHx L carotid stent intracranial bypass x2 section x2 appendectomy endometrial ablation SocHx: quit smoking ~2004, denies alcohol & recreational drugs; lives with her family; on disability; full code status FamHx: positive for DM2 & cancer ROS: as above, otherwise reviewed and all were negative vitals: Vital Signs Temp 36.7 C 12/14/17 03:29 Pulse 84 12/14/17 03:29 Resp 18 12/14/17 03:29 BP 127/55 12/14/17 03:29 Pulse Ox 96 12/14/17 04:36 Constitutional: NAD, normally developed, morbidly obese white female HEENM: atraumatic; sclera/conjunctiva: anicteric/clear; hearing: clinically intact; oropharynx: clear, mucosa moist Neck: soft tissue: non-tender; thyroid: normal Pulmonary: diminished B, fair aeration, no accessory muscle use CV: RR/RR, normal S1S2, no carotid bruit, no jugular venous distention appreciable, 2+ B DP/PT, trace BLE edema Abdominal: soft, non-distended, non-tender, no rebound/guarding/rigidity, normoactive bowel sounds, no hepatosplenomegaly or masses, no costovertebral angle tenderness Musculoskeletal: general: grossly intact, no tenderness w/ palpation Integumental: normal appearance and texture of exposed skin Psychiatric orientation: AA&O to PPS affect: calm mood: cooperative eye contact: fair content: reliable responses: mildly slowed insight: fair Testing: Lab Results 12/13/17 12/13/17 12/13/17 Range/Units 23:20 23:20 23:20 WBC 9.7 (3.5-10.8) 10^3/ul RBC 4.69 (4.0-5.4) 10^6/ul Hgb 13.6 (12.0-16.0) g/dl Hct 40 (35-47) % MCV 86 (80-97) fL MCH 29 (27-31) pg MCHC 34 (31-36) g/dl RDW 17 H (10.5-15) % Plt Count 203 (150-450) 10^3/ul MPV 9 (7.4-10.4) um3 Neut % (Auto) 52.1 (38-83) % Lymph % (Auto) 37.7 (25-47) % [place] % (Auto) 7.5 H (0-7) % Eos % (Auto) 1.4 (0-6) % Baso % (Auto) 1.3 (0-2) % Absolute Neuts (auto) 5.1 (1.5-7.7) 10^3/ul Absolute Lymphs (auto) 3.7 (1.0-4.8) 10^3/ul Absolute Monos (auto) 0.7 (0-0.8) 10^3/ul Absolute Eos (auto) 0.1 (0-0.6) 10^3/ul Absolute Basos (auto) 0.1 (0-0.2) 10^3/ul Absolute Nucleated RBC 0 10^3/ul Nucleated RBC % 0 INR (Anticoag Therapy) 1.01 (0.77-1.02) APTT 29.8 (26.0-36.3) seconds Sodium 135 (133-145) mmol/L Potassium 4.1 (3.5-5.0) mmol/L Chloride 99 L (101-111) mmol/L Carbon Dioxide 25 (22-32) mmol/L Anion Gap 11 (2-11) mmol/L BUN 18 (6-24) mg/dL Creatinine 0.72 (0.51-0.95) mg/dL Est GFR ( Amer) 108.2 (>60) Est GFR (Non-Af Amer) 84.1 (>60) BUN/Creatinine Ratio 25.0 H (8-20) Glucose 231 H (70-100) mg/dL Lactic Acid (0.5-2.0) mmol/L Calcium 9.9 (8.6-10.3) mg/dL Magnesium 1.8 L (1.9-2.7) mg/dL Total Bilirubin 0.50 (0.2-1.0) mg/dL AST 11 L (13-39) U/L ALT 15 (7-52) U/L Alkaline Phosphatase 50 (34-104) U/L Troponin I 0.00 (<0.04) ng/mL C-Reactive Protein 10.60 H (< 5.00) mg/L B-Natriuretic Peptide ( - 100) pg/mL Total Protein 7.0 (6.4-8.9) g/dL Albumin 3.9 (3.2-5.2) g/dL Globulin 3.1 (2-4) g/dL Albumin/Globulin Ratio 1.3 (1-3) 12/13/17 12/14/17 Range/Units 23:20 23:20 WBC (3.5-10.8) 10^3/ul RBC (4.0-5.4) 10^6/ul Hgb (12.0-16.0) g/dl Hct (35-47) % MCV (80-97) fL MCH (27-31) pg MCHC (31-36) g/dl RDW (10.5-15) % Plt Count (150-450) 10^3/ul MPV (7.4-10.4) um3 Neut % (Auto) (38-83) % Lymph % (Auto) (25-47) % [place] % (Auto) (0-7) % Eos % (Auto) (0-6) % Baso % (Auto) (0-2) % Absolute Neuts (auto) (1.5-7.7) 10^3/ul Absolute Lymphs (auto) (1.0-4.8) 10^3/ul Absolute Monos (auto) (0-0.8) 10^3/ul Absolute Eos (auto) (0-0.6) 10^3/ul Absolute Basos (auto) (0-0.2) 10^3/ul Absolute Nucleated RBC 10^3/ul Nucleated RBC % INR (Anticoag Therapy) (0.77-1.02) APTT (26.0-36.3) seconds Sodium (133-145) mmol/L Potassium (3.5-5.0) mmol/L Chloride (101-111) mmol/L Carbon Dioxide (22-32) mmol/L Anion Gap (2-11) mmol/L BUN (6-24) mg/dL Creatinine (0.51-0.95) mg/dL Est GFR ( Amer) (>60) Est GFR (Non-Af Amer) (>60) BUN/Creatinine Ratio (8-20) Glucose (70-100) mg/dL Lactic Acid 2.9 H* (0.5-2.0) mmol/L Calcium (8.6-10.3) mg/dL Magnesium (1.9-2.7) mg/dL Total Bilirubin (0.2-1.0) mg/dL AST (13-39) U/L ALT (7-52) U/L Alkaline Phosphatase (34-104) U/L Troponin I (<0.04) ng/mL C-Reactive Protein (< 5.00) mg/L B-Natriuretic Peptide 16 ( - 100) pg/mL Total Protein (6.4-8.9) g/dL Albumin (3.2-5.2) g/dL Globulin (2-4) g/dL Albumin/Globulin Ratio (1-3) ECG, personally reviewed: NSR rate 91, no ischemia CXR, personally reviewed: most consistent with pulmonary edema chemical NST (12/05/2017): IMPRESSION: 1. MODERATE-SIZED ANTEROLATERAL DEFECT WITH BOTH FIXED AND ISCHEMIC COMPONENTS. 2. MILD PARADOXICAL WALL MOTION. 3. MILDLY DEPRESSED EJECTION FRACTION OF 48%. ASSESSMENT: INTERMEDIATE-RISK Impression: 57F HX moyamoya s/p intracranial bypass x2, CVA x2, CHF, DIAGNOSIS & PLAN Primary acute mixed systolic & diastolic HF : EF 45-50%, HX diastolic dysfunction : furosemide diuresis : strict I&Os : daily weights : low sodium diet : nutrition consult : supplemental oxygen : supportive care chest pain r/o ACS : recent abnormal chemical NST : telemetry : trend troponin : consider cardiology consultation in AM : supportive care Secondary moyamoya s/p intracranial bypass x2 : continue aspirin COPD : albuterol CVA x2 : continue aspirin HLD/ PAOD s/p L carotid stenting x2 : continue atorvastatin DM2 : continue glimepiride & liraglutide seizure disorder : continue divalproex & gabapentin JOSIE : continue home CPAP HTN : continue lisinopril, carvedilol, & diltiazem GERD : continue pantoprazole & ranitidine bipolar disorder : continue divalproex & gabapentin depression : continue desvenlafaxine anxiety : continue bupropion & clonazepam Admission Rational: observation for r/o ACS DVTp: heparin SQ Code Status: full HCP: daughterDebra
[2017-12-14 05:54] LABS: ABS Basophils 0 10^3/ul (0-0.2); ABS Eosinophils 0 10^3/ul (0-0.6); ABS Lymphocytes 1.6 10^3/ul (1.0-4.8); ABS Monocytes 0.1 10^3/ul (0-0.8); ABS Neutrophils 6.7 10^3/ul (1.5-7.7); ABS Nucleated RBC 0 10^3/ul; Eosinophil % 0.1 % (0-6); Hematocrit 43 % (35-47); Hemoglobin 14.5 g/dl (12.0-16.0); Lymphocyte % 19.3 % (25-47); Mean Corpuscular HGB Conc 34 g/dl (31-36); Mean Corpuscular Hemoglobin 29 pg (27-31); Mean Corpuscular Volume 86 fL (80-97); Mean Platelet Volume 9 um3 (7.4-10.4); Nucleated Red Blood Cells % 0.1; Platelet Count 192 10^3/ul (150-450); Red Blood Count 4.97 10^6/ul (4.0-5.4); Red Cell Distribution Width 17 % (10.5-15); White Blood Count 8.5 10^3/ul (3.5-10.8)
--- NOTE | 2017-12-14 07:46 | RAD ---
INDICATION: Short of breath COMPARISON: November 25, 2017 TECHNIQUE: An AP portable view obtained at 2258 hours is submitted. Examination is mildly limited due to patient size. There is apical lordotic positioning FINDINGS: Bones/Soft Tissues: There are no acute bony findings. Cardiomediastinal: The correct silhouette is at the upper limits of normal in size. There is interstitial prominence which could be related to respiratory effort but mild vascular congestions are excluded. Lungs: There are no infiltrates. Pleura: There are no pleural effusions. Other: None IMPRESSION: SHALLOW INSPIRATORY EFFORT. POSSIBLE MILD INTERSTITIAL CONGESTION. SUGGEST FOLLOW-UP INDICATED.
[2017-12-14] MEDS: Furosemide IV* 10 MG/ML 10 ML VIAL (100 MG) IV SCH ×2 (08:25→12:47)
[2017-12-14] MEDS: CMCS: Desvenlafaxine (NF) 50 MG TAB PO SCH (08:28)
[2017-12-14] MEDS: Divalproex ER TAB(*) 500 MG PO SCH ×2 (08:28→21:55)
[2017-12-14] MEDS: Gabapentin CAP(*) 100 MG PO SCH ×3 (08:28→17:00)
[2017-12-14] MEDS: Omeprazole CAP* 20 MG PO SCH (08:29)
[2017-12-14] MEDS: Carvedilol TAB* 6.25 MG PO SCH ×2 (08:29→21:53)
[2017-12-14] MEDS: buPROPion TAB* 100 MG PO SCH (08:30)
[2017-12-14] MEDS: clonazePAM TAB(*) 1 MG PO PRN ×2 (08:30→17:01)
[2017-12-14] MEDS: Docusate CAP* 100 MG PO SCH ×2 (08:31→21:54)
[2017-12-14] MEDS ORDERED: CMCS: Glimepiride (NF) 2 MG TAB PO SCH (09:00)
[2017-12-14 09:11] LABS: EGFR Non-African American 67.6 (>60)
[2017-12-14] MEDS ORDERED: Calcium Gluconate INJ* 1 GM in NS 0.9% 50 ML* 50 ML IVPB ONE (09:26)
[2017-12-14] MEDS ORDERED: Insulin REGULAR(*) 1 UNITS UNIT IV PUSH ONE (09:27)
[2017-12-14] MEDS ORDERED: Dextrose 50% Syringe 50 ML* 25 GM/50 ML SYRINGE ONE (09:29)
[2017-12-14 10:10] LABS: EGFR Non-African American 63.4 (>60)
[2017-12-14] MEDS ORDERED: Dextrose 50% Syringe 50 ML* 25 GM/50 ML SYRINGE IV PUSH PRN (10:39)
[2017-12-14] MEDS: Insulin LISPRO* 1 UNITS UNIT SUBCUT SCH ×3 (14:40→22:06)
--- NOTE | 2017-12-14 15:05 | PN ---
Hospitalist Progress Note Date of Service: 12/14/17 Pt seen and examined. reports gorilla sitting on chest 06/11 after dinner last night. 03/11 after nitro. resolved upon waking. Severe dietary indiscretions yesterday. BG worsening and opened up anion gap. hyperkalemic to 6.6 (took several hours to return) but 5.1 on repeat. 10U Regular + SSI, repeat BMP soon, may need insulin gtt in ICU. Lactic acidosis. SOB improved. Troponins negative. no EKG changes. Given indeterminate nuclear stress with worsened EF on 12/[address] Jose Cardiology consulted.
[2017-12-14] MEDS ORDERED: Perflutren Lipid Microsphere* 3 ML VIAL ONE (15:26)
[2017-12-14 15:44] LABS: EGFR Non-African American 62.6 (>60)
[2017-12-14] MEDS ORDERED: Magnesium Sulfate 2 GM IV* 2 GM/50 ML BAG IVPB ONE (15:50)
[2017-12-14] MEDS ORDERED: Insulin LISPRO* 1 UNITS UNIT SUBCUT ONE (15:52)
--- NOTE | 2017-12-14 16:33 | ECHO ---
Patient: [facility] Rec#: [id number] : 1960 Date: 12/14/2017 Age: 57y Height: 170 cm / 66.9 in Weight: 137.5 kg / 303.0 lbs Sex: F BSA: 2.4 Room#: 433 Admit Date#: 12/14/2017 Type: Inpatient Referring: Mario Galvan Reading: Brandon Villa MD Patient Appointment Coordinator: Leslie Penny RN RDCS CC: Ang Zelaya MD Transthoracic Echocardiogram Indication: Chest pain, SOB, CHF BP: 138/66 HR: 98 Rhythm: NSR Findings History: Morbid obesity, JOSIE on CPAP, HTN, HLD, DM, COPD, former smoker, diastolic CHF, CKD, moyamoya S/P intracranial bypass, CVAs, left carotid stenting, seizure disorder, bipolar disorder Technical Comments: The study is technically limited due to poor acoustic windows. The study is technically limited due to patient body habitus. The study is technically limited due to the patient's history of COPD. The study is technically limited due to the patient's smoking history. The study was technically limited due to the patient's inability to lay in the left lateral decubitus position. Left Ventricle: The left ventricular chamber size is normal. Moderate concentric left ventricular hypertrophy is observed. Global left ventricular wall motion and contractility are within normal limits. The left ventricle appears hyperdynamic. The estimated ejection fraction is greater than 65%. The assessment of diastolic function is non-diagnostic. Left Atrium: The left atrium is mildly dilated. Right Ventricle: The right ventricular cavity size is normal. The right ventricular global systolic function is normal. Right Atrium: The right atrium is not well visualized. The right atrium is mildly dilated. Aortic Valve: The aortic valve structure is not well visualized. The aortic valve leaflets are mildly thickened. There is no evidence of aortic regurgitation. There is no evidence of aortic stenosis. Mitral Valve: The mitral valve leaflets are mildly thickened. There is no evidence of mitral regurgitation. There is no evidence of mitral stenosis. Tricuspid Valve: The tricuspid valve leaflets are normal. There is trace tricuspid regurgitation. Unable to estimate the right ventricular systolic pressure. There is no tricuspid stenosis. Pulmonic Valve: The pulmonic valve structure is not well visualized. Pericardium: There is no significant pericardial effusion. A pericardial fat pad is visualized. Aorta: There is no dilatation of the ascending aorta. The aortic arch is not well visualized. There is no dilation of the aortic root. Pulmonary Artery: The main pulmonary artery is not well visualized. Venous: The venous system is not well visualized. The inferior vena cava is not visualized. Contrast: Definity was used to optimize study. A total of 4 ml of diluted Definity was given IV. Conclusions The study is technically limited due to poor acoustic windows. Moderate concentric left ventricular hypertrophy is observed. Global left ventricular wall motion and contractility are within normal limits. The left ventricle appears hyperdynamic. The estimated ejection fraction is greater than 65%. As best as can be assessed with suboptimal images, there is no significant valvular disease: There is trace tricuspid regurgitation. Compared to report of study from 08/18/2016 the overall LV systolic function is mildly increased (was normal at 55-60%). Measurements Name Value Normal Range RVDdMajor (2D) 3.7 cm (2.2 - 4.4) RAd ISD 4CH 5.5 cm (3.4 - 4.9) RA (A4C)W 4.7 cm (2.9 - 4.6) IVSd (2D) 1.7 cm (0.6 - 1) LVPWd (2D) 1.5 cm (0.6 - 1) LVIDd (2D) 4.2 cm (3.6 - 5.4) Aortic Annulus 2.1 cm (1.4 - 2.6) Ao root diameter (2D) 2.9 cm (2.1 - 3.5) Ascending Ao 2.5 cm (2.1 - 3.4) LA dimension (AP) 2D 4.5 cm (2.3 - 3.8) LAd ISD 4CH 5.5 cm (2.9 - 5.3) LA ISD 4CH W 4.1 cm (2.5 - 4.5) Name Value Normal Range LA ESV SP 4CH (A/L) 59 ml - LA ESV SP 2CH (A/L) 50 ml - LA ESV BP (A/L) 56 ml - LA ESV BP (A/L) index 23.3 ml/m2 - LA ESV SP 4CH (MOD) 56 ml - LA ESV SP 2CH (MOD) 47 ml - Name Value Normal Range MV E-wave Vmax 0.72 m/sec - MV deceleration time 166 msec - MV A-wave Vmax 1.2 m/sec - MV E:A ratio 0.59 ratio - LV septal e' Vmax 0.06 m/sec - LV lateral e' Vmax 0.07 m/sec - LV E:e' septal ratio 12 ratio - LV E:e' lateral ratio 10.3 ratio - Name Value Normal Range AV Vmax 1.3 m/sec - AV VTI 25.9 cm - AV peak gradient 7.1 mmHg - AV mean gradient 5.3 mmHg - LVOT Vmax 1.2 m/sec - LVOT VTI 23.7 cm - LVOT peak gradient 5.6 mmHg - LVOT mean gradient 3.5 mmHg - Name Value Normal Range PV Vmax 1.1 m/sec -
[2017-12-14] MEDS ORDERED: Atorvastatin* 40 MG TAB PO SCH (17:00)
--- NOTE | 2017-12-14 17:03 | CONSULT ---
Subjective Date of Service: 12/14/17 Interval History: Admission and consult Date: 12/14/17 Provider: Hospitalist Acrobatic Dancer: Dr. Villa PCP : KAMERON Zelaya MD CC : productive cough with dyspnea, increased 02 requirements and chest discomfort. Reason for consult: chest discomfort. HPI Mrs Sol is a 57 year old woman who has had a newly productive cough with greenish sputum since late this past Monday. She has also had worsening dyspnea and using more 02 than usual. Last night at 7:34 PM she developed severe chest discomfort like a gorilla sitting on her chest. She received SL NTG which reduced discomfort from a 9 to 6 out of 10. She continued to have on and off chest discomfort (about 5 hours overall) until about 2:30 this AM and has not had any further chest discomfort since then. She ruled out for ACS with serial troponins and EKG. Of note, reviewing her prior records she has had intermittent chest discomfort since at least 2005. She has never had an NV. She is followed by Dr. Villa. She is being treated with aspirin, statin, and dual anti-anginals including a beta-elvira and calcium channel elvira. She had a recent vasodilator stress MPI on 12/05/2017 for symptoms of chest discomfort which I reviewed. It was a limited study by her obesity. The cine motion images on rest and stress were essentially non-diagnostic to evaluate segmental changes or LVEF. There was no prone imaging or attenuation correction applied. The perfusion images were reviewed and were of generally poor quality. There was an anteroapical defect on the stress imaging that was small sized and mild intensity. There was a similar sized defect of the inferolateral wall on stress and rest imaging. It was an equivocal stress test. Her daughter and son in law are at bedside. We talked about the gold standard of CAD diagnosis being an invasive coronary angiogram. Given the fact that she is pain free and this episode of dyspnea and chest discomfort appeared to be related to a URI/COPD excerbation given her prolonged episode of rest chest discomfort and normal troponins making this discomfort coming from ACS very highly unlikely. We did discuss that given her obesity and diabetes she is at elevated risk of developing a heart attack in the future and she should not hesitate to seek emergency medical care for recurrent chest discomfort. PMedHx moyamoya s/p intracranial bypass and revascularization COPD CVA x2 DM2 seizure disorder JOSIE on CPAP HTN HLD GERD borderline personality disorder bipolar disorder depression anxiety morbid obesity Allergies nitrofurantoin Allergy (Severe, Verified 11/25/17 23:05) Rash meperidine Allergy (Intermediate, Verified 11/25/17 23:05) Headache clavulanic acid Adverse Reaction (Intermediate, Verified 11/25/17 23:05) Nausea And Vomiting morphine Adverse Reaction (Intermediate, Verified 11/25/17 23:05) Nausea PSurgHx L carotid stent intracranial bypass x2 section x2 appendectomy endometrial ablation SocHx : quit smoking ~2004 following a TIA, denies alcohol & recreational drugs; lives with her family; on disability; full code status FamHx : positive for DM2 & cancer Medications Active Medications: Albuterol (Ventolin Hfa Inhaler*) 2 puff INH DAILY PRN PRN Reason: WHEEZING Asenapine (Saphris(Nf)) 10 mg SL BEDTIME [facility] Aspirin (Aspirin Tab*) 325 mg PO BEDTIME [facility] Atorvastatin Calcium (Lipitor*) 40 mg PO 1700 [facility] Bupropion HCl (Wellbutrin Tab*) 300 mg PO DAILY [facility] Last Admin: 12/14/17 08:30 Dose: 300 mg Carvedilol (Coreg Tab*) 6.25 mg PO BID [facility] Last Admin: 12/14/17 08:29 Dose: 6.25 mg Clonazepam (Klonopin Tab(*)) 1 mg PO TID PRN PRN Reason: ANXIETY Last Admin: 12/14/17 08:30 Dose: 1 mg Desvenlafaxine Succinate (Pristiq (Nf)) 100 mg PO QAM [facility] Last Admin: 12/14/17 08:28 Dose: 100 mg Dextrose (D50w Syringe 50 Ml*) 12.5 gm IV PUSH .FOR FS < 60 - SS PRN PRN Reason: FS < 60 Diltiazem HCl (Cardizem Cd Cap*) 120 mg PO BEDTIME [facility] Divalproex Sodium (Depakote Er Tab(*)) 1,000 mg PO BID [facility] Last Admin: 12/14/17 08:28 Dose: 1,000 mg Docusate Sodium (Colace Cap*) 100 mg PO BID [facility] Last Admin: 12/14/17 08:31 Dose: 100 mg Famotidine (Pepcid Tab*) 40 mg PO BEDTIME [facility] PRN Reason: Protocol Furosemide (Lasix Iv*) 20 mg IV 0800,1200 [facility] Last Admin: 12/14/17 12:47 Dose: 20 mg Gabapentin (Neurontin Cap(*)) 100 mg PO AC [facility] Last Admin: 12/14/17 12:47 Dose: 100 mg Gabapentin (Neurontin Cap(*)) 300 mg PO BEDTIME [facility] Insulin Human Lispro (Humalog*) 0 units SUBCUT Q4HR [facility] PRN Reason: Protocol Last Admin: 12/14/17 14:40 Dose: 9 unit Lisinopril (Prinivil Tab*) 20 mg PO BEDTIME [facility] Omeprazole (Prilosec Cap*) 20 mg PO QAM [facility] Last Admin: 12/14/17 08:29 Dose: 20 mg Home Medications: Multivitamins/Minerals TAB* [Theragran/minerals TAB*] 1 tab PO QAM 11/25/15 [ History Confirmed 12/14/17] Asenapine(NF) [Saphris(NF)] 10 mg SL BEDTIME 05/02/16 [History Confirmed ] Ranitidine TAB (NF) [Zantac TAB (NF)] 300 mg PO BEDTIME 05/02/16 [History Confirmed 12/14/17] Calcium [Oyster-Serafin 500] 500 mg PO BID 06/13/16 [History Confirmed 12/14/17] Carvedilol TAB* [Coreg TAB*] 6.25 mg PO BID 06/13/16 [History Confirmed 12/14/17 ] Glimepiride (NF) 4 mg PO DAILY 06/13/16 [History Confirmed 12/14/17] Liraglutide (NF) [Victoza (NF)] 1.8 mg SUBCUT QPM 06/13/16 [History Confirmed ] dilTIAZem HCl [Diltiazem 24Hr ER] 120 mg PO BEDTIME 06/13/16 [History Confirmed 12/14/17] Aspirin TAB* [Aspirin 325 MG TAB*] 325 mg PO BEDTIME 02/24/17 [History Confirmed 12/14/17] Docusate CAP* [Colace Cap*] 100 mg PO BID 02/24/17 [History Confirmed 12/14/17] Lisinopril TAB* [Prinivil TAB 10 MG*] 20 mg PO BEDTIME 02/24/17 [History Confirmed 12/14/17] Ondansetron TAB* [Zofran 4 MG Tab*] 4 mg PO Q6H PRN 02/24/17 [History Confirmed 12/14/17] Divalproex ER TAB(*) [Depakote ER TAB(*)] 1,000 mg PO BID #60 tab 03/12/17 [Rx Confirmed 12/14/17] buPROPion TAB* [Wellbutrin TAB*] 300 mg PO DAILY 06/24/17 [History Confirmed ] Atorvastatin* [Lipitor 40 MG*] 40 mg PO 1700 #30 tab 06/25/17 [Rx Confirmed ] Albuterol Sulfate [Proventil Hfa] 108 mcg INH DAILY PRN 10/27/17 [History Confirmed 12/14/17] Cranberry (Vaccinium Macrocarp [Cranberry Super Strength] 15,000 mg PO DAILY [History Confirmed 12/14/17] Butalb/Acetamin/Caff TAB* [Fioricet TAB*] 1 tab PO Q6H PRN 11/26/17 [History Confirmed 12/14/17] Gabapentin CAP(*) [Neurontin 100 mg CAP(*)] 100 mg PO AC 11/26/17 [History Confirmed 12/14/17] Gabapentin CAP(*) [Neurontin 300 CAP(*)] 300 mg PO BEDTIME 11/26/17 [History Confirmed 12/14/17] clonazePAM TAB(*) [Klonopin TAB(*)] 1 mg PO TID PRN 11/26/17 [History Confirmed 12/14/17] Desvenlafaxine Succinate [Pristiq] 100 mg PO QAM 12/14/17 [History Confirmed ] Pantoprazole Sodium [Pantoprazole Sodium] 40 mg PO QAM 12/14/17 [History Confirmed 12/14/17] Review of Systems - Measurements Intake and Output: Intake and Output Last 24 Hours 12/12/17 12/13/17 12/14/17 12/15/17 06:59 06:59 06:59 06:59 Intake Total 760 Output Total 600 Balance 160 Weight 303 lb 1.6 oz Intake: Oral 760 Output: Urine 600 Other: Estimated Void Large # Bowel Movements 0 - Review of Systems Constitutional Symptoms: Positive: Fatigue Negative: Weight Gain, Weight Loss Dermatology: Negative: Rash, Skin Lesions, Skin Lumps HEENT: Negative: Change in Hearing, Vertigo Eyes: Negative: Change in Vision, Double Vision Thyroid: Negative: Cold Intolerance, Heat Intolerance, Sweatiness, Tremor, Frequent Defecation, Constipation, Palpitations Pulmonary: Positive: Cough, Sputum, Respiratory Distress, Shortness of Breath, COPD, Exercise Intolerance, Home Oxygen Negative: Hemoptysis Cardiology: Positive: Chest Pain Negative: Palpitations, Swelling of Ankles, Edema, Faintness, Syncope, Claudication, Paroxysmal Nocturnal Dyspnea, Orthopnea Gastroenterology: Negative: Abdominal Pain, Nausea, Vomiting, Anorexia Genital - Urinary: Negative: Dysuria, Nocturia Musculoskeletal: Negative: Joint Pain, Joint Stiffness, Osteoporosis, Low Back Pain Endocrinology: Positive: Obesity, Diabetes Negative: Polydipsia, Polyuria Hematologic/Lymphatic: Positive: Use of Antiplatelet Drugs Negative: Anemia, Easy Brusing, Use of Anticoagulant Neurology: Negative: Change in Balancing, Change in Coordination, Change in Memory Psychiatry: Negative: Unusual Anxiety, Suicidal Ideation Allergic/Immunologic: Negative: Hx HIV, Immunocompromise Review of Systems Statement: All other review of systems negative, unless stated above. Objective Vital Signs: Temp Pulse Resp BP Pulse Ox 97.7 F 96 24 124/78 94 12/14/17 13:30 12/14/17 13:30 12/14/17 13:30 12/14/17 13:30 12/14/17 15:27 Oxygen Devices in Use Now: Nasal Cannula Appearance: nad, pleasant Ears/Nose/Mouth/Throat: Clear Oropharnyx, Mucous Membranes Moist Neck: NL Appearance and Movements; NL JVP, Trachea Midline Respiratory: Symmetrical Chest Expansion and Respiratory Effort, - - no wheeze or rales appreciated Cardiovascular: RRR, No Edema, - - no significant murmur or extra heart sound Abdominal: NL Sounds; No Tenderness; No Distention Extremities: No Edema Skin: No Rash or Ulcers Neurological: Alert and Oriented x 3 Laboratory Results: 12/14/17 04:49 12/14/17 18:33 INR (Anticoag Therapy) 1.01 (0.77-1.02) 12/13/17 23:20 APTT 29.8 seconds (26.0-36.3) 12/13/17 23:20 Total Bilirubin 0.50 mg/dL (0.2-1.0) 12/13/17 23:20 AST 11 U/L (13-39) L 12/13/17 23:20 ALT 15 U/L (7-52) 12/13/17 23:20 Alkaline Phosphatase 50 U/L (34-104) 12/13/17 23:20 B-Natriuretic Peptide 16 pg/mL (-100) 12/14/17 23:20 Total Protein 7.0 g/dL (6.4-8.9) 12/13/17 23:20 Albumin 3.9 g/dL (3.2-5.2) 12/13/17 23:20 Globulin 3.1 g/dL (2-4) 12/13/17 23:20 Albumin/Globulin Ratio 1.3 (1-3) 12/13/17 23:20 12/13/17 12/14/17 12/14/17 23:20 04:49 15:08 Troponin I 0.00 0.00 0.00 Diagnostic Imagin12/14/2017: definity used: moderate LVH with hyperdynamic LVEF and no segmental wall motion abnormalities noted, mild la dilation, normal rv size and function, unable to estimate PASP EKG Data: EKG 12/13/2017: NSR, LAD, no ishcemic changes 12/13/2017 ekg unchanged these are similar to 11/26/2017 ekg Assessment/Plan In summary, Jewels Sol is a 57 year old woman who presents with worsening dyspnea and chest discomfort in the setting of a respiratory tract infection/ COPD exacerbation. There is no evidence of decompensated CHF or ACS. - Patient should continue aspirin, statin, beta-elvira and diltiazem for possible underlying stable ischemic heart disease. - If she ambulates without recurrent chest discomfort she can be discharged from a cardiac standpoint and follow up with Dr. Villa as an outpatient. - I did extension course counselor her on a heart healthy diet, regular aerobic exercise and weight loss to help reduce the risk of future cardiovascular events. Thank you for allowing me to participate in the cardiovascular care of this patient. Please do not hesitate to contact me with questions or concerns.
[2017-12-14] MEDS ORDERED: NF: Liraglutide (NF) 18 MG/3 ML SUBCUT SCH (18:00)
[2017-12-14] MEDS ORDERED: cefTRIAXone 1000 MG SYRINGE IVPB Q24H IVPB SCH ×2 (18:00)
[2017-12-14] MEDS ORDERED: cefTRIAXone(*) 1 GM in NS 0.9% 50 ML* 50 ML IVPB SCH (18:00)
[2017-12-14 18:55] LABS: EGFR Non-African American 65.8 (>60)
[2017-12-14] MEDS ORDERED: ASENAPINE 10 MG SL SCH (21:00)
[2017-12-14] MEDS ORDERED: Aspirin TAB* 325 MG PO SCH (21:00)
[2017-12-14] MEDS ORDERED: Gabapentin CAP(*) 300 MG PO SCH (21:00)
[2017-12-14] MEDS ORDERED: Lisinopril TAB* 10 MG PO SCH (21:00)
[2017-12-14] MEDS ORDERED: Diltiazem CD CAP* 120 MG PO SCH (21:00)
[2017-12-14] MEDS ORDERED: Famotidine TAB* 20 MG PO SCH (21:00)
[2017-12-15] MEDS: Insulin LISPRO* 1 UNITS UNIT SUBCUT SCH ×3 (02:36→11:10)
[2017-12-15 08:43] LABS: ABS Basophils 0.1 10^3/ul (0-0.2); ABS Eosinophils 0.1 10^3/ul (0-0.6); ABS Lymphocytes 3.9 10^3/ul (1.0-4.8); ABS Monocytes 1.1 10^3/ul (0-0.8); ABS Nucleated RBC 0 10^3/ul; Eosinophil % 0.5 % (0-6); Hematocrit 42 % (35-47); Hemoglobin 13.7 g/dl (12.0-16.0); Lymphocyte % 29.7 % (25-47); Mean Corpuscular HGB Conc 33 g/dl (31-36); Mean Corpuscular Hemoglobin 28 pg (27-31); Mean Corpuscular Volume 87 fL (80-97); Mean Platelet Volume 9 um3 (7.4-10.4); Nucleated Red Blood Cells % 0.1; Platelet Count 185 10^3/ul (150-450); Red Blood Count 4.83 10^6/ul (4.0-5.4); Red Cell Distribution Width 17 % (10.5-15); White Blood Count 13.2 10^3/ul (3.5-10.8)
[2017-12-15 08:52] LABS: EGFR Non-African American 60.3 (>60)
[2017-12-15] MEDS: Furosemide IV* 10 MG/ML 10 ML VIAL (100 MG) IV SCH ×2 (09:43→12:38)
[2017-12-15] MEDS: Divalproex ER TAB(*) 500 MG PO SCH (09:45)
[2017-12-15] MEDS: Gabapentin CAP(*) 100 MG PO SCH ×2 (09:46→12:36)
[2017-12-15] MEDS: buPROPion TAB* 100 MG PO SCH (09:46)
[2017-12-15] MEDS: Omeprazole CAP* 20 MG PO SCH (09:46)
[2017-12-15] MEDS: Carvedilol TAB* 6.25 MG PO SCH (09:47)
[2017-12-15] MEDS: clonazePAM TAB(*) 1 MG PO PRN (09:47)
[2017-12-15] MEDS: Docusate CAP* 100 MG PO SCH (09:47)
[2017-12-15] MEDS: CMCS: Desvenlafaxine (NF) 50 MG TAB PO SCH (09:48)
[2017-12-15] MEDS ORDERED: Insulin LISPRO* 1 UNITS UNIT SUBCUT SCH (11:30)
[2017-12-15] MEDS: Furosemide IV* 10 MG/ML 2 ML VIAL (20 MG) IV SCH ×2 (12:37→12:39)
[2017-12-15 12:39] VITALS: BP 100/52
--- NOTE | 2017-12-16 11:53 | DS ---
CC: Dr. Calderón; Dr. Zelaya; Dr. Hylton; Dr. Jose, Cardiology; Dr. Villa; Dr. Calderón; Dr. Hoskins DISCHARGE SUMMARY: DATE OF ADMISSION: 12/14/17 DATE OF DISCHARGE: 12/15/17 PRIMARY CARE PROVIDER: Dr. Zelaya. DISCHARGE DIAGNOSIS: Shortness of breath. It is a combination of bronchitis as well as acute diastolic congestive heart failure due to dietary indiscretion. SECONDARY DIAGNOSES: 1. History of moyamoya status post intracranial bypass x2. 2. History of chronic obstructive pulmonary disease, on oxygen continuously. 3. History of obstructive sleep apnea, on BiPAP at night. His last BiPAP pressures were set at 13/9. 4. History of hypertension. 5. Dyslipidemia. 6. History of cerebrovascular accident x2. 7. History of diastolic congestive heart failure. 8. Peripheral arterial disease, status post left carotid stenting. 9. History of chronic kidney disease stage 3 due to diabetes. 10. History of borderline personality disorder. 11. History of hospitalization in June 2017 for depression and suicidal ideation. 12. History of questionable seizure disorder with negative workup with admission in epilepsy unit on 10/27/17 to 11/03/[address] Hylton's care, where the patient was noted to have episode of transient tremors and language disturbance, but no epileptiform abnormalities on the EEG. 13. History of morbid obesity. 14. Gastroesophageal reflux disease. 15. Dyslipidemia. 16. Hypertension. MEDICATIONS: At discharge include, Keflex 500 mg 3 times a day for a total of 7 days. The remaining medications are unchanged and include: 1. Albuterol on a p.r.n. basis inhaler. 2. Saphris 10 mg at bedtime. 3. Aspirin 325 mg daily. 4. Lipitor 40 mg daily. 5. Wellbutrin 300 mg daily. 6. Fioricet 1 tablet every 6 hours p.r.n. 7. Calcium and vitamin D 500 mg b.i.d. 8. Coreg 6.25 mg b.i.d. 9. Clonazepam 1 mg t.i.d. p.r.n. 10. Cranberry capsule daily. 11. Pristiq 100 mg daily. 12. Diltiazem CD 120 mg at bedtime. 13. Depakote 1000 mg b.i.d. 14. Colace 100 mg b.i.d. 15. Neurontin 100 mg p.o. a.c. and 300 mg at bedtime. 16. Glimepiride 4 mg daily. 17. Victoza 1.8 mg subcutaneously q.p.m. 18. Prinivil 20 mg at bedtime. 19. Multivitamin 1 tablet daily. 20. Zofran on a p.r.n. basis. 21. Protonix 40 mg daily. 22. Zantac 300 mg at bedtime. LABORATORY DATA AND STUDIES PERFORMED DURING THE HOSPITAL STAY: Included: The patient's hemoglobin A1c was obtained and noted to be 6.9. On 12/05/17, sodium of 138, potassium 4.3, chloride 94, carbon dioxide 23, BUN 36, creatinine 0.96. CBC: White blood cell count 13.2, hemoglobin of 13.7, hematocrit of 42, and platelets of 185,000. Transthoracic echocardiogram obtained on 12/14/17 showed EF estimated to be greater than 65%. The study was technically limited due to poor acoustic windows. Moderate concentric LVH was noted. Contractility of the left ventricular wall was within normal limits. There was trace tricuspid regurgitation. Compared to prior study from August 2016, the overall LV systolic function was mildly increased. CONSULTATIONS DURING THE HOSPITAL STAY: Included Dr. Jose from Cardiology. HOSPITALIZATION COURSE: Ms. Sol is a 57-year-old morbidly obese female with history of oxygen dependent COPD, who presented to the hospital complaining of shortness of breath and chest pain. That occurred after she ate pizza and a box of peas with one of her family members that same night. She was admitted to the hospital, noted to be in mild diastolic CHF and diuresed. Due to that, on 12/05/17, she had a cardiac stress test that showed moderate-sized anterolateral defect with both fixed and ischemic components and EF of 48%. Dr. Jose from Cardiology was consulted. As per Dr. Jose's recommendations, the patient's symptoms are mostly respiratory related and the patient was referred back to Dr. Villa, her clinical science consultant as outpatient. Please note that the patient ruled out for acute coronary syndrome with negative troponins at 0 throughout her hospital stay. Her telemetry monitoring did not show any marked arrhythmias. By the time of discharge, she ambulated in the hallway feeling much better, although she required 4 L of oxygen at discharge which is going to be continued. The patient also had been complaining of upper respiratory infection syndrome and had pharyngeal injection on evaluation. Due to that, she is going to be discharged on antibiotics to go home with. She was treated with ceftriaxone throughout her hospital stay. Additionally, the patient is recommended to follow up with Dr. Zelaya in approximately 4 to 7 days. Follow up with Dr. Calderón in approximately 1 to 2 weeks. Follow up with Dr. Villa in approximately 1 to 2 weeks. PHYSICAL EXAMINATION AT THE TIME OF DISCHARGE: Blood pressure of 100/52, heart rate of 74 and regular, respiratory rate 15, oxygen saturation 98% on 4 L of oxygen nasal cannula, temperature 97.3. General: The patient is a very pleasant 57-year- old female with a BMI of 47. The patient is in no acute distress. Alert, awake, and oriented x3. HEENT: Head atraumatic, normocephalic. Eyes: Pupils are equal, reactive to light and accommodation. Oropharynx with mild pharyngeal erythema noted. No exudates. Otherwise, mucosa moist. Neck: Supple. No JVD, no bruits bilaterally. Cardiovascular: Regular rate and rhythm. No murmurs. Respiratory: Clear to auscultation bilaterally with distant breath sounds bilaterally. Abdomen: Soft, nontender. Bowel sounds are present in all 4 quadrants. Extremities: There is trace bilateral pedal edema, nonpitting. Pulses +2 bilaterally. There is no clubbing or cyanosis. On neuro evaluation, speech clear. Cranial nerves II through XII are grossly intact. Motor strength is 5/5 bilaterally. Please note that this is a short summary of the patient's hospitalization. Please refer to further medical records for details. TIME SPENT: Approximately 35 minutes was spent on the patient's discharge. [id number] #: [id number] MTDD
== END 2017-12-15 15:40 | disposition home or self-care (01) ==
LOC: ED 22:00 → MEDTELE 12-14 00:57 → OBSVTOIN 12-14 10:37 → INTOOBSV 12-14 10:37
PROVIDERS: ADMIT Hospitalist; ATTEND Internal Medicine
DX: I13.0 Hypertensive heart and chronic kidney disease with heart failure and stage 1 through stage 4 chronic kidney disease, or unspecified chronic kidney disease (principal); I50.41 Acute combined systolic (congestive) and diastolic (congestive) heart failure; N18.3 Chronic kidney disease, stage 3 (moderate); E11.22 Type 2 diabetes mellitus with diabetic chronic kidney disease; R07.9 Chest pain, unspecified; I67.5 Moyamoya disease; J44.9 Chronic obstructive pulmonary disease, unspecified; Z86.73 Personal history of transient ischemic attack (TIA), and cerebral infarction without residual deficits; E78.5 Hyperlipidemia, unspecified; G40.909 Epilepsy, unspecified, not intractable, without status epilepticus; K21.9 Gastro-esophageal reflux disease without esophagitis; F31.9 Bipolar disorder, unspecified; Z79.899 Other long term (current) drug therapy; F41.9 Anxiety disorder, unspecified; E66.01 Morbid (severe) obesity due to excess calories; Z99.81 Dependence on supplemental oxygen; Z88.8 Allergy status to other drugs, medicaments and biological substances; F60.3 Borderline personality disorder; I73.9 Peripheral vascular disease, unspecified; Z87.891 Personal history of nicotine dependence; I44.4 Left anterior fascicular block; I51.7 Cardiomegaly
CPT/HCPCS: 36415; 71045; 80048; 80053; 83036; 83605; 83735; 83880; 84100; 84484; 85025; 85610; 85730; 86140; 87070; 87205; 93005; 93306; 94640; 94760; 96374; 96375; 96376; 99285; A9270-GY; C8929; G0378; J0610; J0696; J1940; J2930; J3475

== ENCOUNTER 2017-12-22 23:33 | Emergency (ER) | payer MEDICAID, MEDICARE ==
[2017-12-23 01:06] LABS: EGFR Non-African American 70.4 (>60)
[2017-12-23 01:28] LABS: ABS Basophils 0.1 10^3/ul (0-0.2); ABS Eosinophils 0.2 10^3/ul (0-0.6); ABS Lymphocytes 5.1 10^3/ul (1.0-4.8); ABS Monocytes 0.9 10^3/ul (0-0.8); ABS Neutrophils 5.4 10^3/ul (1.5-7.7); ABS Nucleated RBC 0.1 10^3/ul; Eosinophil % 1.5 % (0-6); Hematocrit 39 % (35-47); Hemoglobin 13.2 g/dl (12.0-16.0); Lymphocyte % 43.2 % (25-47); Mean Corpuscular HGB Conc 34 g/dl (31-36); Mean Corpuscular Hemoglobin 29 pg (27-31); Mean Corpuscular Volume 84 fL (80-97); Mean Platelet Volume 8.9 um3 (7.4-10.4); Nucleated Red Blood Cells % 0.6; Platelet Count 166 10^3/ul (150-450); Red Blood Count 4.59 10^6/ul (4.0-5.4); Red Cell Distribution Width 17 % (10.5-15); White Blood Count 11.7 10^3/ul (3.5-10.8)
[2017-12-23] MEDS ORDERED: Butalb/Acetamin/Caff TAB* 1 TAB PO PRN (03:27)
[2017-12-23 07:54] LABS: Urine Appearance Clear; Urine Blood Negative (Negative); Urine Color Yellow; Urine Ketones Trace (Negative); Urine Protein Negative (Negative); Urine Urobilinogen Negative (Negative)
[2017-12-23] MEDS: Gabapentin CAP(*) 100 MG PO SCH ×3 (08:03→16:14)
[2017-12-23] MEDS: Docusate CAP* 100 MG PO PRN (08:03)
[2017-12-23] MEDS: Calcium Carbonate TAB* 1250 MG (CALCIUM 500 MG) PO SCH ×2 (08:03→22:44)
[2017-12-23] MEDS: Omeprazole CAP* 20 MG PO SCH (08:04)
[2017-12-23] MEDS ORDERED: DESVENLAFAXINE 100 MG PO SCH (09:00)
[2017-12-23] MEDS ORDERED: Glimepiride (NF) 2 MG TAB PO SCH (09:00)
--- NOTE | 2017-12-23 09:42 | PN ---
ED Flex Patient Progress Note Subjective: This is a 57 year-old F who is pending transfer to another psychiatric facility secondary to SI . Pt offers no complaints at this time. Slept well last night and ate breakfast. Objective: Vitals: Most recent vital signs documented below. General NAD, Alert and oriented x3. Heart: S1/S2, distant heart sounds 2ndry to body habitus Lungs: Breathing easily w/ 3L O2 via NC - distant breath sounds 2ndry to body habitus; CTA INTEG: warm, dry, well perfused AB: +BS, NTTP, soft Assessment: SI Plan: Pending psychiatric transfer. Will follow up daily __while in ED___. Vital Signs Temp Pulse Resp BP Pulse Ox 97.4 F 85 12 119/52 95 12/23/17 07:41 12/23/17 07:41 12/23/17 07:41 12/23/17 07:41 12/23/17 07:41 Lab Results - Entire Visit 12/23/17 12/23/17 12/23/17 07:23 07:23 00:44 WBC 11.7 H RBC 4.59 Hgb 13.2 Hct 39 MCV 84 MCH 29 MCHC 34 RDW 17 H Plt Count 166 MPV 8.9 Neut % (Auto) 46.2 Lymph % (Auto) 43.2 Morehouse % (Auto) 8.1 H Eos % (Auto) 1.5 Baso % (Auto) 1.0 Absolute Neuts (auto) 5.4 Absolute Lymphs (auto) 5.1 H Absolute Monos (auto) 0.9 H Absolute Eos (auto) 0.2 Absolute Basos (auto) 0.1 Absolute Nucleated RBC 0.1 Nucleated RBC % 0.6 Giant Platelets Present Sodium Potassium Chloride Carbon Dioxide Anion Gap BUN Creatinine Est GFR ( Amer) Est GFR (Non-Af Amer) BUN/Creatinine Ratio Glucose Calcium Total Bilirubin AST ALT Alkaline Phosphatase Total Protein Albumin Globulin Albumin/Globulin Ratio Urine Color Yellow Urine Appearance Clear Urine pH 5.0 Ur Specific [place] 1.020 Urine Protein Negative Urine Ketones Trace A Urine Blood Negative Urine Nitrate Negative Urine Bilirubin Negative Urine Urobilinogen Negative Ur Leukocyte Esterase 1+ A Urine WBC (Auto) 1+(6-10/hpf) A Urine RBC (Auto) Trace(0-2/hpf) Ur Squamous Epith Cells Present A Urine Bacteria Absent Urine Glucose Negative Urine Ascorbic Acid * A Salicylates Urine Opiates Screen None detected Acetaminophen Ur Barbiturates Screen None detected Ur Phencyclidine Scrn None detected Ur Amphetamines Screen None detected U Benzodiazepines Scrn None detected Urine Cocaine Screen None detected U Cannabinoids Screen None detected Serum Alcohol 12/23/17 00:44 WBC RBC Hgb Hct MCV MCH MCHC RDW Plt Count MPV Neut % (Auto) Lymph % (Auto) [place] % (Auto) Eos % (Auto) Baso % (Auto) Absolute Neuts (auto) Absolute Lymphs (auto) Absolute Monos (auto) Absolute Eos (auto) Absolute Basos (auto) Absolute Nucleated RBC Nucleated RBC % Giant Platelets Sodium 137 Potassium 4.7 Chloride 101 Carbon Dioxide 28 Anion Gap 8 BUN 14 Creatinine 0.84 Est GFR ( Amer) 90.5 Est GFR (Non-Af Amer) 70.4 BUN/Creatinine Ratio 16.7 Glucose 144 H Calcium 9.6 Total Bilirubin 0.40 AST 17 ALT 16 Alkaline Phosphatase 50 Total Protein 7.0 Albumin 3.9 Globulin 3.1 Albumin/Globulin Ratio 1.3 Urine Color Urine Appearance Urine pH Ur Specific [place] Urine Protein Urine Ketones Urine Blood Urine Nitrate Urine Bilirubin Urine Urobilinogen Ur Leukocyte Esterase Urine WBC (Auto) Urine RBC (Auto) Ur Squamous Epith Cells Urine Bacteria Urine Glucose Urine Ascorbic Acid Salicylates < 2.50 Urine Opiates Screen Acetaminophen < 15 Ur Barbiturates Screen Ur Phencyclidine Scrn Ur Amphetamines Screen U Benzodiazepines Scrn Urine Cocaine Screen U Cannabinoids Screen Serum Alcohol < 10
[2017-12-23] MEDS: buPROPion TAB* 100 MG PO SCH (09:54)
[2017-12-23] MEDS: Divalproex ER TAB(*) 500 MG PO SCH ×2 (09:55→22:44)
[2017-12-23] MEDS: Carvedilol TAB* 6.25 MG PO SCH ×2 (10:13→22:44)
[2017-12-23] MEDS: Multivitamins/Minerals TAB PO SCH (11:51)
--- NOTE | 2017-12-23 13:33 | PN ---
Subjective - Subjective Date of Service: 12/23/17 Service Type: [id number] Hosp care 25 min moderate complexity Subjective: Seen in the ED Ms. Green didn't appear to be in any distress. Says she feels much better today. Yesterday she thought of killing herself by OD on her meds due to her adult daughter leaving for [place]. Denies any other psychiatric problems. She has access to all her meds and is unreliable for her safety. Hence we will hold her in the ED until a safety plan is in place or admitted on a psych floor anywhere. Objective - Appearance Appearance: Obese Hygiene: Mal-odorous Grooming: Disheveled - Behavior Psychomotor Activities: Normal Exhibits Abnormal Movement: No - Attitude and Relatedness Attitude and Relatedness: Appropriate Eye Contact: Good - Speech Quality: Unpressured Latencies: Normal Quantity: Appropriate - Mood Patient's Decription of Mood: "Fine" - Affect Observed Affect: Non-labile - Thought Process Patient's Thought Process: Coherent, Goal Directed Thought Content: No Passive Wish, No Suicidal Planning, No Homicidal Ideation, No Paranoid Ideation - Sensorium Experiencing Hallucinations: No, Sensorium is Clear Type of Hallucinations: Visual: No, Auditory: No, Command: No - Level of Consciousness Level of Consciousness: Alert Orientation: Yes Intact, Yes Orientated to Time, Yes Orientated to Place, Yes Orientated to Person - Impulse Control Impulse Control: Tenuous - Insight and Judgement Insight and Judgement: Poor - Medication Management Medication Management Adherence: Yes Assessment - Assessment Merits Inpatient Hospitalization: For Immediate Safety, For Stabilization, Pending Safe DC Plan Plan - Plan Treatment Plan: Name: DK GREEN Birthdate: 1960 [id number] Medications: Current Medications Acetaminophen/Butalbital/Caffeine (Fioricet Tab*) 1 tab PO Q6H PRN PRN Reason: HEADACHE Asenapine (Saphris(Nf)) 10 mg SL BEDTIME [facility] Aspirin (Ecotrin Ec Tab*) 325 mg PO DAILY [facility] Atorvastatin Calcium (Lipitor*) 40 mg PO 1700 [facility] Bupropion HCl (Wellbutrin Tab*) 300 mg PO DAILY [facility] Last Admin: 12/23/17 09:54 Dose: 300 mg Calcium Carbonate (Calcium Carbonate Tab*) 1,250 mg PO BID [facility] Last Admin: 12/23/17 08:03 Dose: 1,250 mg Carvedilol (Coreg Tab*) 6.25 mg PO BID [facility] Last Admin: 12/23/17 10:13 Dose: 6.25 mg Clonazepam (Klonopin Tab(*)) 1 mg PO TID PRN PRN Reason: ANXIETY Desvenlafaxine Succinate (Pristiq(Nf)) 100 mg PO DAILY [facility] Last Admin: 12/23/17 11:52 Dose: Not Given Diltiazem HCl (Cardizem Cd Cap*) 120 mg PO BEDTIME [facility] Divalproex Sodium (Depakote Er Tab(*)) 1,000 mg PO BID [facility] Last Admin: 12/23/17 09:55 Dose: 1,000 mg Docusate Sodium (Colace Cap*) 100 mg PO BID PRN PRN Reason: CONSTIPATION Last Admin: 12/23/17 08:03 Dose: 100 mg Famotidine (Pepcid Tab*) 40 mg PO BEDTIME [facility] Gabapentin (Neurontin Cap(*)) 100 mg PO AC [facility] Last Admin: 12/23/17 11:51 Dose: 100 mg Glimepiride (Glimepiride (Nf)) 4 mg PO DAILY [facility] PRN Reason: Protocol Last Admin: 12/23/17 11:53 Dose: Not Given Liraglutide (Victoza (Nf)) 1.8 mg SUBCUT QPM [facility] Lisinopril (Prinivil Tab*) 10 mg PO BEDTIME [facility] Multivitamins/Minerals (Theragran/Minerals Tab*) 1 tab PO DAILY [facility] Last Admin: 12/23/17 11:51 Dose: 1 tab Omeprazole (Prilosec Cap*) 20 mg PO DAILY [facility] Last Admin: 12/23/17 08:04 Dose: 20 mg - Discharge Plan Discharge Plan: Inpatient Hospitalization
[2017-12-23] MEDS: clonazePAM TAB(*) 1 MG PO PRN ×2 (16:15→22:44)
[2017-12-23] MEDS ORDERED: Atorvastatin* 40 MG TAB PO SCH (17:00)
[2017-12-23] MEDS ORDERED: Liraglutide (NF) 18 MG/3 ML SUBCUT SCH (18:00)
[2017-12-23] MEDS ORDERED: Asenapine(NF) 10 MG TAB.SL SL SCH (21:00)
[2017-12-23] MEDS ORDERED: Lisinopril TAB* 10 MG PO SCH (21:00)
[2017-12-23] MEDS ORDERED: Diltiazem CD CAP* 120 MG PO SCH (21:00)
[2017-12-23] MEDS ORDERED: Famotidine TAB* 20 MG PO SCH (21:00)
[2017-12-23] MEDS: Aspirin EC TAB* 325 MG PO SCH (22:43)
[2017-12-24] MEDS: Carvedilol TAB* 6.25 MG PO SCH (07:59)
[2017-12-24] MEDS: Calcium Carbonate TAB* 1250 MG (CALCIUM 500 MG) PO SCH (07:59)
[2017-12-24] MEDS: Docusate CAP* 100 MG PO PRN (07:59)
[2017-12-24] MEDS: Aspirin EC TAB* 325 MG PO SCH (07:59)
[2017-12-24] MEDS: Omeprazole CAP* 20 MG PO SCH (07:59)
[2017-12-24] MEDS: Divalproex ER TAB(*) 500 MG PO SCH (07:59)
[2017-12-24] MEDS: Gabapentin CAP(*) 100 MG PO SCH ×2 (07:59→11:14)
[2017-12-24] MEDS: buPROPion TAB* 100 MG PO SCH (07:59)
[2017-12-24] MEDS: clonazePAM TAB(*) 1 MG PO PRN (08:13)
[2017-12-24] MEDS: Multivitamins/Minerals TAB PO SCH (08:13)
[2017-12-24] MEDS ORDERED: CMC:Glimepiride (NF) 2 MG TAB PO SCH (09:00)
[2017-12-24] MEDS ORDERED: CMC:Desvenlafaxine (NF) 50 MG TAB PO SCH (09:00)
[2017-12-24] MEDS ORDERED: DESVENLAFAXINE 100 MG PO SCH (09:00)
[2017-12-24 16:03] VITALS: BP 151/75
[2017-12-24] MEDS ORDERED: Aspirin EC TAB* 325 MG PO SCH (21:00)
--- NOTE | 2017-12-29 08:21 | ED ---
Keith Michaels Sixian, scribed for Diego Valdes MD on 12/23/17 at 0051 . Psychiatric Complaint - HPI Summary HPI Summary: This patient is a 57 year old F BIBA to ED with a chief complaint of SI since earlier today. The pt decided to come in today because her adult daughter is leaving tomorrow and she will be alone. The patient rates the pain 8/10 in severity. Symptoms aggravated and alleviated by nothing. Patient reports feeling sad and alone. Patient denies substance abuse today. - History Of Current Complaint Chief Complaint: EDMentalHealth Time Seen by Provider: 12/22/17 23:44 Hx Obtained From: Patient Hx Last Menstrual Period: not since 2009 Onset/Duration: Gradual Onset, Still Present, Worse Since - earlier today Timing: Constant Aggravating Factor(s): Nothing Alleviating Factor(s): Nothing Has Suicidal: Reports: Thoughts - Allergies/Home Medications Allergies/Adverse Reactions: Allergies Allergy/AdvReac Type Severity Reaction Status Date / Time nitrofurantoin Allergy Severe Rash Verified 12/22/17 23:52 meperidine Allergy Intermediate Headache Verified 12/22/17 23:52 clavulanic acid AdvReac Intermediate Nausea And Verified 12/22/17 23:52 Vomiting morphine AdvReac Intermediate Nausea Verified 12/22/17 23:52 PMH/Surg Hx/FS Hx/Imm Hx Endocrine/Hematology History: Reports: Hx Diabetes, Other Endocrine/ Hematological Disorders Denies: Hx Thyroid Disease, Hx Anemia, Hx Unexplained Bleeding Cardiovascular History: Reports: Hx Congestive Heart Failure, Hx Hypercholesterolemia, Hx Hypertension Denies: Hx Aneurysm, Hx Angina, Hx Angioplasty, Hx Auto Implanted Cardiovert Defib, Hx Cardiac Arrest, Hx Cardiomegaly, Hx Congenital Heart Disease, Hx Coronary Artery Disease, Hx Deep Vein Thrombosis, Hx Embolism, Hx Hypotension, Hx Myocardial Infarction, Hx Pacemaker/ICD, Hx Peripheral Vascular Disease, Hx Rheumatic Fever, Hx Syncope, Hx Valvular Heart Disease, Other Cardiovascular Problems/Disorders Respiratory History: Reports: Hx Asthma, Hx Chronic Bronchitis, Hx Chronic Obstructive Pulmonary Disease (COPD) - 2L O2 at home, Hx Pneumonia, Hx Sleep Apnea - CPAP in room for use, Other Respiratory Problems/Disorders - PNEUMONIA IN 2001 Denies: Hx Cystic Fibrosis, Hx Lung Cancer, Hx Pleural Effusion, Hx Pulmonary Edema, Hx Pulmonary Embolism, Hx Seasonal Allergies GI History: Reports: Hx Gastroesophageal Reflux Disease, Other GI Disorders - "sphincter in stomach not working" Denies: Hx Cirrhosis, Hx Crohn's Disease, Hx Diverticulosis, Hx Gall Bladder Disease, Hx Gastrointestinal Bleed, Hx Hiatal Hernia, Hx Irritable Bowel, Hx Jaundice, Hx Obstructive Bowel, Hx Ileostomy, Hx Pyloric Stenosis, Hx Ulcer History: Reports: Hx Acute Renal Failure, Hx Renal Disease Denies: Hx Benign Prostatic Hyperplasia, Hx Chronic Renal Failure, Hx Dialysis, Hx Kidney Infection, Hx Kidney Stones, Other Problems/Disorders Musculoskeletal History: Reports: Hx Arthritis, Hx Back Problems, Hx Orthopedic Injury, Hx Scoliosis Denies: Hx Osteoporosis Sensory History: Reports: Hx Contacts or Glasses, Hx Vision Problem Denies: Hx Cataracts, Hx Eye Injury, Hx Hearing Aid, Hx Hearing Problem, Other Sensory Impairments Opthamlomology History: Reports: Hx Contacts or Glasses, Hx Vision Problem Denies: Hx Cataracts, Hx Eye Injury, Other Sensory Impairments Neurological History: Reports: Hx Headaches, Hx Migraine, Hx Nerve Disease, Hx Seizures, Hx Transient Ischemic Attacks (TIA), Other Neuro Impairments/ Disorders - Hx of 2 TIA. Hx moyamoya disease. 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 . endarterectomy-left internal carotid Hx Anesthesia Reactions: No - Immunization History Date of Tetanus Vaccine: unk Date of Influenza Vaccine: 06/2017 Infectious Disease History: No Infectious Disease History: Reports: Hx Clostridium Difficile - 1.5 years ago Denies: Hx Hepatitis, Hx Human Immunodeficiency Virus (HIV), Hx of Known/ Suspected MRSA, Hx Shingles, Hx Tuberculosis, Hx Known/Suspected VRE, Hx Known/ Suspected VRSA, History Other Infectious Disease, Traveled Outside the [place] in Last 30 Days - Family History Known Family History: Positive: Cardiac Disease, Other - bipolar disorder; alcohol abuse - Social History Alcohol Use: None Alcohol Amount: once/year Hx Substance Use: No Substance Use Type: Reports: None Hx Tobacco Use: Yes Smoking Status (MU): Former Smoker Type: Cigarettes Amount Used/How Often: quit in 2004 Have You Smoked in the Last Year: No Review of Systems Negative: Fever Psychological: Other - SI All Other Systems Reviewed And Are Negative: Yes Physical Exam - Summary Physical Exam Summary: Appearance: Well-appearing, no distress, Well-nourished Skin: Warm, color reflects adequate perfusion Head: Normal Head/Face inspection Eyes: Conjunctiva clear ENT: Normal inspection Neck: Supple, no nodes, no JVD. Respiratory: Lungs clear, Normal breath sounds, no respiratory distress Cardio: RRR, No murmur, pulses normal, brisk capillary refill Abdomen: soft, nontender, no guarding, no rebound Bowel sounds: present Musculoskeletal: Strength Intact/ ROM intact. No calf tenderness. No edema. Neuro: Alert, muscle tone normal, facial symmetry, speech normal, sensory/motor intact Psychological: Normal Triage Information Reviewed: Yes Vital Signs On Initial Exam: Initial Vitals Temp Pulse Resp BP Pulse Ox 98.5 F 85 16 140/59 97 12/22/17 23:35 12/22/17 23:35 12/22/17 23:35 12/22/17 23:35 12/22/17 23:35 Vital Signs Reviewed: Yes Diagnostics - Vital Signs Vital Signs Temp Pulse Resp BP Pulse Ox 12/22/17 23:35 98.5 F 85 16 140/59 97 - Laboratory Lab Results: Lab Results 12/23/17 12/23/17 Range/Units 00:44 00:44 WBC 11.7 H (3.5-10.8) 10^3/ul RBC 4.59 (4.0-5.4) 10^6/ul Hgb 13.2 (12.0-16.0) g/dl Hct 39 (35-47) % MCV 84 (80-97) fL MCH 29 (27-31) pg MCHC 34 (31-36) g/dl RDW 17 H (10.5-15) % Plt Count 166 (150-450) 10^3/ul MPV 8.9 (7.4-10.4) um3 Neut % (Auto) 46.2 (38-83) % Lymph % (Auto) 43.2 (25-47) % Alfalfa % (Auto) 8.1 H (0-7) % Eos % (Auto) 1.5 (0-6) % Baso % (Auto) 1.0 (0-2) % Absolute Neuts (auto) 5.4 (1.5-7.7) 10^3/ul Absolute Lymphs (auto) 5.1 H (1.0-4.8) 10^3/ul Absolute Monos (auto) 0.9 H (0-0.8) 10^3/ul Absolute Eos (auto) 0.2 (0-0.6) 10^3/ul Absolute Basos (auto) 0.1 (0-0.2) 10^3/ul Absolute Nucleated RBC 0.1 10^3/ul Nucleated RBC % 0.6 Giant Platelets Present Sodium 137 (133-145) mmol/L Potassium 4.7 (3.5-5.0) mmol/L Chloride 101 (101-111) mmol/L Carbon Dioxide 28 (22-32) mmol/L Anion Gap 8 (2-11) mmol/L BUN 14 (6-24) mg/dL Creatinine 0.84 (0.51-0.95) mg/dL Est GFR ( Amer) 90.5 (>60) Est GFR (Non-Af Amer) 70.4 (>60) BUN/Creatinine Ratio 16.7 (8-20) Glucose 144 H (70-100) mg/dL Calcium 9.6 (8.6-10.3) mg/dL Total Bilirubin 0.40 (0.2-1.0) mg/dL AST 17 (13-39) U/L ALT 16 (7-52) U/L Alkaline Phosphatase 50 (34-104) U/L Total Protein 7.0 (6.4-8.9) g/dL Albumin 3.9 (3.2-5.2) g/dL Globulin 3.1 (2-4) g/dL Albumin/Globulin Ratio 1.3 (1-3) Salicylates < 2.50 (<30) mg/dL Acetaminophen < 15 mcg/mL Serum Alcohol < 10 (<10) mg/dL Result Diagrams: 12/23/17 00:44 12/23/17 00:44 Lab Statement: Any lab studies that have been ordered have been reviewed, and results considered in the medical decision making process. - EKG 0320 Cardiac Rate: NL EKG Rhythm: Sinus Rhythm - 82 BPM EKG Interpretation: Normal interval, ST segments, T waves. Course/Dx - Course Course Of Treatment: Pt seen and exmained by Psych. Plan for inpatient Psych admission. - Differential Dx/Clinical Impression Differential Diagnosis/HQI/PQRI: Positive: Acute Psychosis, Anxiety, Bipolar Disorder, Depression, Suicide Attempt, Suicidal Ideation Provider Diagnosis: Suicidal ideation, Mood disorder Discharge - Sign-Out/Discharge Documenting (check all that apply): Discharge - Discharge Plan Condition: Stable Disposition: HOME Patient Education Materials: Suicide Prevention for Adults (ED) Referrals: Ang Zelaya MD [Primary Care Provider] - - Billing Disposition and Condition Condition: STABLE Disposition: HOME The documentation as recorded by the Keith españa Sixian accurately reflects the service I personally performed and the decisions made by Keisha steele Omari A, MD.
== END 2017-12-24 16:03 | disposition home or self-care (01) ==
LOC: ED 23:33
DX: R45.851 Suicidal ideations (principal); F39 Unspecified mood [affective] disorder
CPT/HCPCS: 36415; 80053; 80307; 80320; 80329; 81003; 81015; 85025; 87086; 93005; 99285; A9270-GY; G0480

== ENCOUNTER 2018-01-10 16:11 | Emergency (ER) | payer MEDICARE, MEDICAID ==
[2018-01-10 16:42] LABS: ABS Basophils 0.1 10^3/ul (0-0.2); ABS Eosinophils 0.2 10^3/ul (0-0.6); ABS Lymphocytes 2.9 10^3/ul (1.0-4.8); ABS Monocytes 0.7 10^3/ul (0-0.8); ABS Neutrophils 5.4 10^3/ul (1.5-7.7); ABS Nucleated RBC 0 10^3/ul; Eosinophil % 1.7 % (0-6); Hematocrit 40 % (35-47); Hemoglobin 13.7 g/dl (12.0-16.0); Lymphocyte % 31.5 % (25-47); Mean Corpuscular HGB Conc 34 g/dl (31-36); Mean Corpuscular Hemoglobin 29 pg (27-31); Mean Corpuscular Volume 86 fL (80-97); Mean Platelet Volume 8.4 um3 (7.4-10.4); Nucleated Red Blood Cells % 0.1; Platelet Count 204 10^3/ul (150-450); Red Blood Count 4.67 10^6/ul (4.0-5.4); Red Cell Distribution Width 18 % (10.5-15); White Blood Count 9.3 10^3/ul (3.5-10.8)
[2018-01-10 17:05] LABS: EGFR Non-African American 75.6 (>60)
[2018-01-10 18:14] VITALS: BP 140/59
[2018-01-10 18:21] LABS: Urine Appearance Clear; Urine Blood Negative (Negative); Urine Color Yellow; Urine Ketones Trace (Negative); Urine Protein Negative (Negative); Urine Specific Gravity 1.015 (1.010-1.030); Urine Urobilinogen Negative (Negative)
--- NOTE | 2018-01-11 12:02 | ED ---
Zhang Michaels Angela, scribed for Jose Roberts MD on 01/10/18 at 1719 . Psychiatric Complaint - HPI Summary HPI Summary: This pt is a 57 y/o female presenting to [facility] via police officers for a 9.45. Pt reports increased depression and SI thoughts. Pt states recent stressor today , her daughter in [place] called her with some bad news today. She notes the person who used to live with her 20 y/o daughter left and now her daughter has all the financial responsibility. Pt reports her daughter called her, and her daughter was angry saying "things that hurt her heart." She notes SI thoughts. Denies SI plan or HI. Pt also c/o an upper respiratory infection. Pt has hx of depression. She notes her depression has intermittently increased in the past 2 months. She has had prior suicide attempts, pt overdosed on Xanad in Sep/Oct. Pt is currently on antidepressants. - History Of Current Complaint Chief Complaint: EDMentalHealth Time Seen by Provider: 01/10/18 16:23 Hx Obtained From: Patient Hx Last Menstrual Period: not since 2009 Onset/Duration: Gradual Onset, Still Present Timing: Constant Severity Currently: Severe Character: Depressed Aggravating Factor(s): Recent Stress Alleviating Factor(s): Nothing Associated Signs And Symptoms: Positive: Negative Related History: Positive For: Prior Psychiatric Issues Has Suicidal: Reports: Thoughts, Has Prior Attempt(s) - overdosing on Xanax. Denies: With A Plan Has Homicidal: Denies: Thoughts, With A Plan Recent Stressor(s): received "bad news" from her daughter - Allergies/Home Medications Allergies/Adverse Reactions: Allergies Allergy/AdvReac Type Severity Reaction Status Date / Time nitrofurantoin Allergy Severe Rash Verified 01/10/18 16:18 meperidine Allergy Intermediate Headache Verified 01/10/18 16:18 clavulanic acid AdvReac Intermediate Nausea And Verified 01/10/18 16:18 Vomiting morphine AdvReac Intermediate Nausea Verified 01/10/18 16:18 Home Medications: Home Medications Calcium Carbonate [Calcium] 500 mg PO BID 01/10/18 [History Confirmed 01/10/18] Cranberry Fruit Extract [Hm Cranberry Ultra Streng] 15,000 mg PO DAILY 01/10/18 [History Confirmed 01/10/18] Diltiazem CD CAP* [Cardizem CD CAP*] 120 mg PO BEDTIME 01/10/18 [History Confirmed 01/10/18] PMH/Surg Hx/FS Hx/Imm Hx Endocrine/Hematology History: Reports: Hx Diabetes, Other Endocrine/ Hematological Disorders Denies: Hx Thyroid Disease, Hx Anemia, Hx Unexplained Bleeding Cardiovascular History: Reports: Hx Congestive Heart Failure, Hx Hypercholesterolemia, Hx Hypertension Denies: Hx Aneurysm, Hx Angina, Hx Angioplasty, Hx Auto Implanted Cardiovert Defib, Hx Cardiac Arrest, Hx Cardiomegaly, Hx Congenital Heart Disease, Hx Coronary Artery Disease, Hx Deep Vein Thrombosis, Hx Embolism, Hx Hypotension, Hx Myocardial Infarction, Hx Pacemaker/ICD, Hx Peripheral Vascular Disease, Hx Rheumatic Fever, Hx Syncope, Hx Valvular Heart Disease, Other Cardiovascular Problems/Disorders Respiratory History: Reports: Hx Asthma, Hx Chronic Bronchitis, Hx Chronic Obstructive Pulmonary Disease (COPD) - 2L O2 at home, Hx Pneumonia, Hx Sleep Apnea - CPAP in room for use, Other Respiratory Problems/Disorders - PNEUMONIA IN 2001 Denies: Hx Cystic Fibrosis, Hx Lung Cancer, Hx Pleural Effusion, Hx Pulmonary Edema, Hx Pulmonary Embolism, Hx Seasonal Allergies GI History: Reports: Hx Gastroesophageal Reflux Disease, Other GI Disorders - "sphincter in stomach not working" Denies: Hx Cirrhosis, Hx Crohn's Disease, Hx Diverticulosis, Hx Gall Bladder Disease, Hx Gastrointestinal Bleed, Hx Hiatal Hernia, Hx Irritable Bowel, Hx Jaundice, Hx Obstructive Bowel, Hx Ileostomy, Hx Pyloric Stenosis, Hx Ulcer History: Reports: Hx Acute Renal Failure, Hx Renal Disease Denies: Hx Benign Prostatic Hyperplasia, Hx Chronic Renal Failure, Hx Dialysis, Hx Kidney Infection, Hx Kidney Stones, Other Problems/Disorders Musculoskeletal History: Reports: Hx Arthritis, Hx Back Problems, Hx Orthopedic Injury, Hx Scoliosis Denies: Hx Osteoporosis Sensory History: Reports: Hx Contacts or Glasses, Hx Vision Problem Denies: Hx Cataracts, Hx Eye Injury, Hx Hearing Aid, Hx Hearing Problem, Other Sensory Impairments Opthamlomology History: Reports: Hx Contacts or Glasses, Hx Vision Problem Denies: Hx Cataracts, Hx Eye Injury, Other Sensory Impairments Neurological History: Reports: Hx Headaches, Hx Migraine, Hx Nerve Disease, Hx Seizures, Hx Transient Ischemic Attacks (TIA), Other Neuro Impairments/ Disorders - Hx of 2 TIA. Hx moyamoya disease. 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 . endarterectomy-left internal carotid Hx Anesthesia Reactions: No - Immunization History Date of Tetanus Vaccine: unk Date of Influenza Vaccine: 06/2017 Infectious Disease History: No Infectious Disease History: Reports: Hx Clostridium Difficile - 1.5 years ago Denies: Hx Hepatitis, Hx Human Immunodeficiency Virus (HIV), Hx of Known/ Suspected MRSA, Hx Shingles, Hx Tuberculosis, Hx Known/Suspected VRE, Hx Known/ Suspected VRSA, History Other Infectious Disease, Traveled Outside the [place] in Last 30 Days - Family History Known Family History: Positive: Cardiac Disease, Other - bipolar disorder; alcohol abuse - Social History Alcohol Use: None Alcohol Amount: once/year Hx Substance Use: No Substance Use Type: Reports: None Hx Tobacco Use: Yes Smoking Status (MU): Former Smoker Type: Cigarettes Amount Used/How Often: quit in 2004 Have You Smoked in the Last Year: No Review of Systems Negative: Fever, Chills ENT: Other - upper respiratory infection Respiratory: Negative Gastrointestinal: Negative Genitourinary: Negative Musculoskeletal: Negative Skin: Negative Psychological: Other - SI thoughts Positive: Depressed. Negative: Other - SI plan or HI All Other Systems Reviewed And Are Negative: Yes Physical Exam - Summary Physical Exam Summary: VITAL SIGNS: Reviewed. GENERAL: Patient is a well-developed and nourished female. Patient is not in any acute respiratory distress. HEAD AND FACE: No signs of trauma. No ecchymosis, hematomas or skull depressions. No sinus tenderness. EYES: PERRLA, EOMI x 2, No injected conjunctiva, no nystagmus. EARS: Hearing grossly intact. Ear canals and tympanic membranes are within normal limits. MOUTH: Oropharynx within normal limits. NECK: Supple, trachea is midline, no adenopathy, no JVD, no carotid bruit, no c- spine tenderness, neck with full ROM. CHEST: Symmetric, no tenderness at palpation LUNGS: Clear to auscultation bilaterally. No wheezing or crackles. CVS: Regular rate and rhythm, S1 and S2 present, no murmurs or gallops appreciated. ABDOMEN: Soft, non-tender. No signs of distention. No rebound no guarding, and no masses palpated. Bowel sounds are normal. EXTREMITIES: FROM in all major joints, no edema, no cyanosis or clubbing. NEURO: Alert and oriented x 3. No acute neurological deficits. Speech is normal and follows commands. SKIN: Dry and warm Triage Information Reviewed: Yes Vital Signs On Initial Exam: Initial Vitals Temp Pulse Resp BP Pulse Ox 98.1 F 91 18 164/74 97 01/10/18 16:12 01/10/18 16:12 01/10/18 16:12 01/10/18 16:12 01/10/18 16:12 Vital Signs Reviewed: Yes Diagnostics - Vital Signs Vital Signs Temp Pulse Resp BP Pulse Ox 01/10/18 16:12 98.1 F 91 18 164/74 97 - Laboratory Lab Results: Lab Results 01/10/18 01/10/18 Range/Units 16:34 16:34 WBC 9.3 (3.5-10.8) 10^3/ul RBC 4.67 (4.0-5.4) 10^6/ul Hgb 13.7 (12.0-16.0) g/dl Hct 40 (35-47) % MCV 86 (80-97) fL MCH 29 (27-31) pg MCHC 34 (31-36) g/dl RDW 18 H (10.5-15) % Plt Count 204 (150-450) 10^3/ul MPV 8.4 (7.4-10.4) um3 Neut % (Auto) 58.1 (38-83) % Lymph % (Auto) 31.5 (25-47) % [place] % (Auto) 7.9 H (0-7) % Eos % (Auto) 1.7 (0-6) % Baso % (Auto) 0.8 (0-2) % Absolute Neuts (auto) 5.4 (1.5-7.7) 10^3/ul Absolute Lymphs (auto) 2.9 (1.0-4.8) 10^3/ul Absolute Monos (auto) 0.7 (0-0.8) 10^3/ul Absolute Eos (auto) 0.2 (0-0.6) 10^3/ul Absolute Basos (auto) 0.1 (0-0.2) 10^3/ul Absolute Nucleated RBC 0 10^3/ul Nucleated RBC % 0.1 Sodium 137 L (139-145) mmol/L Potassium 4.4 (3.5-5.0) mmol/L Chloride 100 L (101-111) mmol/L Carbon Dioxide 26 (22-32) mmol/L Anion Gap 11 (2-11) mmol/L BUN 15 (6-24) mg/dL Creatinine 0.79 (0.51-0.95) mg/dL Est GFR ( Amer) 97.2 (>60) Est GFR (Non-Af Amer) 75.6 (>60) BUN/Creatinine Ratio 19.0 (8-20) Glucose 204 H (70-100) mg/dL Calcium 9.7 (8.6-10.3) mg/dL Total Bilirubin 0.40 (0.2-1.0) mg/dL AST 14 (13-39) U/L ALT 17 (7-52) U/L Alkaline Phosphatase 48 (34-104) U/L Total Protein 7.3 (6.4-8.9) g/dL Albumin 4.2 (3.2-5.2) g/dL Globulin 3.1 (2-4) g/dL Albumin/Globulin Ratio 1.4 (1-3) TSH Pending Salicylates < 2.50 (<30) mg/dL Acetaminophen < 15 mcg/mL Serum Alcohol < 10 (<10) mg/dL Result Diagrams: 01/10/18 16:34 01/10/18 16:34 Lab Statement: Any lab studies that have been ordered have been reviewed, and results considered in the medical decision making process. Course/Dx - Course Assessment/Plan: This pt is a 57 y/o female presenting to [facility] via police officers for a 9.45. Pt reports increased depression and SI thoughts. Pt states recent stressor today, her daughter in [place] called her with some bad news today. She notes the person who used to live with her 20 y/o daughter left and now her daughter has all the financial responsibility. Pt reports her daughter called her, and her daughter was angry saying "things that hurt her heart." She notes SI thoughts. Denies SI plan or HI. Pt also c/o an upper respiratory infection. Pt has hx of depression. She notes her depression has intermittently increased in the past 2 months. She has had prior suicide attempts, pt overdosed on Xanad in Sep/Oct. Pt is currently on antidepressants. Test results without any significant abnormalities except for glucose of 204. Pt is medically cleared at 17:09. She is awaiting [facility]HE. Pt was evaluated by the mental health clerical stock inspector and Dr. Cole. Dr. Cole recommends for the pt to be discharged home. Pt will be discharged home, in stable condition, with a diagnosis of depression. - Differential Dx/Clinical Impression Provider Diagnosis: Depression Discharge - Sign-Out/Discharge Documenting (check all that apply): Discharge - discharge to home - Discharge Plan Condition: Stable Disposition: HOME Patient Education Materials: Depression (ED), Suicide Prevention for Adults (ED ) Referrals: [facility] [Outside] Ang Zelaya MD [Primary Care Provider] - The documentation as recorded by the Zhang españa Angela accurately reflects the service I personally performed and the decisions made by me, Jose Roberts MD.
== END 2018-01-10 19:28 | disposition home or self-care (01) ==
LOC: ED 16:11
DX: F32.9 Major depressive disorder, single episode, unspecified (principal); R45.851 Suicidal ideations; J06.9 Acute upper respiratory infection, unspecified; E11.9 Type 2 diabetes mellitus without complications; Z79.84 Long term (current) use of oral hypoglycemic drugs; I50.9 Heart failure, unspecified; I10 Essential (primary) hypertension; E78.00 Pure hypercholesterolemia, unspecified; J44.9 Chronic obstructive pulmonary disease, unspecified; K21.9 Gastro-esophageal reflux disease without esophagitis; N28.9 Disorder of kidney and ureter, unspecified; F41.0 Panic disorder [episodic paroxysmal anxiety]; Z88.5 Allergy status to narcotic agent; Z88.8 Allergy status to other drugs, medicaments and biological substances; Z87.891 Personal history of nicotine dependence
CPT/HCPCS: 36415; 80053; 80307; 80320; 80329; 81003; 84443; 85025; 99284; G0480

== ENCOUNTER 2018-02-03 18:12 | Observation (INO) | payer MEDICARE, MEDICAID ==
[2018-02-03 19:51] LABS: ABS Basophils 0.1 10^3/ul (0-0.2); ABS Eosinophils 0.1 10^3/ul (0-0.6); ABS Monocytes 0.6 10^3/ul (0-0.8); ABS Neutrophils 4.3 10^3/ul (1.5-7.7); ABS Nucleated RBC 0 10^3/ul; Eosinophil % 1.5 % (0-6); Hematocrit 40 % (35-47); Hemoglobin 13.4 g/dl (12.0-16.0); Lymphocyte % 37.5 % (25-47); Mean Corpuscular HGB Conc 34 g/dl (31-36); Mean Corpuscular Hemoglobin 29 pg (27-31); Mean Corpuscular Volume 86 fL (80-97); Mean Platelet Volume 8.4 um3 (7.4-10.4); Nucleated Red Blood Cells % 0.1; Platelet Count 181 10^3/ul (150-450); Red Blood Count 4.63 10^6/ul (4.0-5.4); Red Cell Distribution Width 17 % (10.5-15); White Blood Count 8.1 10^3/ul (3.5-10.8)
[2018-02-03 20:00] LABS: INR 0.98 (0.77-1.02)
--- NOTE | 2018-02-03 20:02 | RAD ---
INDICATION: Chest pain. COMPARISON: Correlation is made with prior studies from December 12, 2017 and January 15, 2018. TECHNIQUE: A portable view of the chest was obtained. FINDINGS: Cardiac and mediastinal contours appear to be within normal limits. The lungs are clear. No pleural effusion is seen. IMPRESSION: NO EVIDENCE FOR ACUTE DISEASE.
[2018-02-03] MEDS ORDERED: Albuterol/Ipratropium NEB.SOL* Albuterol 2.5 MG/Ipratropium 0.5 MG 3 ML INH ONE (20:07)
[2018-02-03] MEDS ORDERED: methylPREDNISolone 125 MG* 2 ML VIAL IV ONE (20:08)
[2018-02-03 20:10] LABS: EGFR Non-African American 86.9 (>60)
[2018-02-03] MEDS ORDERED: Labetalol IV* 5 MG/ML 20 ML VIAL IV PUSH ONE (21:42)
[2018-02-03] MEDS ORDERED: Albuterol/Ipratropium NEB.SOL* Albuterol 2.5 MG/Ipratropium 0.5 MG 3 ML INH PRN (21:51)
[2018-02-03] MEDS ORDERED: Butalb/Acetamin/Caff TAB* 1 TAB PO PRN (21:56)
[2018-02-03] MEDS ORDERED: clonazePAM TAB(*) 1 MG PO PRN (21:56)
[2018-02-03] MEDS ORDERED: Ondansetron TAB* 4 MG PO PRN (21:56)
[2018-02-03] MEDS ORDERED: Famotidine TAB* 20 MG PO SCH (22:00)
[2018-02-03] MEDS ORDERED: Gabapentin CAP(*) 300 MG PO SCH (22:00)
[2018-02-03] MEDS ORDERED: NS 0.9% 1000 ML* 1,000 ML IV SCH (22:00)
[2018-02-03] MEDS ORDERED: Lisinopril TAB* 10 MG PO SCH (22:00)
[2018-02-03] MEDS ORDERED: Diltiazem CD CAP* 120 MG PO SCH (22:00)
[2018-02-03] MEDS ORDERED: Dextrose 50% Syringe 50 ML* 25 GM/50 ML SYRINGE IV PUSH PRN (22:13)
[2018-02-03] MEDS: Albuterol 2.5 MG/3 ML NEB.SOL* (0.083%) INH SCH (23:29)
--- NOTE | 2018-02-03 23:42 | ED ---
Crescencio Michaels Tecjoon, scribed for Mary Lou Asencio MD on 02/03/18 at 1931 . HPI Chest Pain - HPI Summary HPI Summary: This patient is a 57 year old female BIBA to [facility] accompanied by family with a chief complaint of chest pain since approx. 4 hours ago. By the time of exam, patient does not have chest pain, but whenever she coughs, and shes been coughing a lot, it hurts. Patient states the pain occurs everywhere on her chest. The pain is rated 5/10 in severity. Symptoms aggravated by nothing. Symptoms alleviated by nothing. The patient treated the sx with nothing POLICE MATRON. Patient additionally reports nonproductive cough, shortness of breath. Patient has taken keflex and levaquin in the last month. Pt has home O2 3L NC and does home nebs with albuterol and has had no improvement in her SOB. - History of Current Complaint Chief Complaint: EDChestPainROMI Time Seen by Provider: 02/03/18 19:14 Hx Obtained From: Patient, Family/Electronic Warfare Operator - daughter is with, and son in law Hx Last Menstrual Period: not since 2009 Onset/Duration: Started Hours Ago, Resolved Timing: Constant Initial Severity: Moderate Current Severity: Moderate Pain Intensity: 5 Pain Scale Used: 0-10 Numeric Chest Pain Location: Diffuse - anterior chest Chest Pain Radiates: No Character: Cough, Non-Productive, Dyspnea at Rest, Tightness Aggravating Factor(s): Other: - cough Alleviating Factor(s): Nothing Associated Signs and Symptoms: Positive: Cough - Additional Pertinent History Primary Care Physician: [id number] - Allergy/Home Medications Allergies/Adverse Reactions: Allergies Allergy/AdvReac Type Severity Reaction Status Date / Time nitrofurantoin Allergy Severe Rash Verified 01/10/18 16:18 meperidine Allergy Intermediate Headache Verified 01/10/18 16:18 clavulanic acid AdvReac Intermediate Nausea And Verified 01/10/18 16:18 Vomiting morphine AdvReac Intermediate Nausea Verified 01/10/18 16:18 Home Medications: Home Medications Albuterol 2.5MG/3ML (0.083%)* [Ventolin 2.5 MG/3 ML NEB.SANDEEP*] 2.5 mg INH Q6H PRN 02/03/18 [History Confirmed 02/03/18] Asenapine(NF) [Saphris(NF)] 10 mg SL BEDTIME 02/03/18 [History Confirmed ] BuPROPion XL* [Bupropion XL*] 300 mg PO DAILY 02/03/18 [History Confirmed ] Desvenlafaxine(NF) [Pristiq(NF)] 100 mg PO DAILY 02/03/18 [History Confirmed 02/16] Pantoprazole TAB (NF) [Protonix TAB (NF)] 40 mg PO DAILY 02/03/18 [History Confirmed 02/03/18] PMH/Surg Hx/FS Hx/Imm Hx Previously Healthy: No Endocrine/Hematology History: Reports: Hx Diabetes Denies: Hx Thyroid Disease, Hx Anemia, Hx Unexplained Bleeding Cardiovascular History: Reports: Hx Cardiac Arrest, Hx Congestive Heart Failure , Hx Hypercholesterolemia, Hx Hypertension Denies: Hx Aneurysm, Hx Angina, Hx Angioplasty, Hx Auto Implanted Cardiovert Defib, Hx Cardiomegaly, Hx Congenital Heart Disease, Hx Coronary Artery Disease , Hx Deep Vein Thrombosis, Hx Embolism, Hx Hypotension, Hx Myocardial Infarction , Hx Pacemaker/ICD, Hx Peripheral Vascular Disease, Hx Rheumatic Fever, Hx Syncope, Hx Valvular Heart Disease, Other Cardiovascular Problems/Disorders Respiratory History: Reports: Hx Asthma, Hx Chronic Bronchitis, Hx Chronic Obstructive Pulmonary Disease (COPD) - 3L O2 at home, Hx Pneumonia, Hx Sleep Apnea Denies: Hx Cystic Fibrosis, Hx Lung Cancer, Hx Pleural Effusion, Hx Pulmonary Edema, Hx Pulmonary Embolism, Hx Seasonal Allergies GI History: Reports: Hx Gastroesophageal Reflux Disease Denies: Hx Cirrhosis, Hx Crohn's Disease, Hx Diverticulosis, Hx Gall Bladder Disease, Hx Gastrointestinal Bleed, Hx Hiatal Hernia, Hx Irritable Bowel, Hx Jaundice, Hx Obstructive Bowel, Hx Ileostomy, Hx Pyloric Stenosis, Hx Ulcer History: Reports: Hx Acute Renal Failure, Hx Renal Disease Denies: Hx Benign Prostatic Hyperplasia, Hx Chronic Renal Failure, Hx Dialysis, Hx Kidney Infection, Hx Kidney Stones, Other Problems/Disorders Musculoskeletal History: Reports: Hx Arthritis, Hx Back Problems, Hx Orthopedic Injury, Hx Scoliosis Denies: Hx Osteoporosis Sensory History: Reports: Hx Contacts or Glasses, Hx Vision Problem Denies: Hx Cataracts, Hx Eye Injury, Hx Hearing Aid, Hx Hearing Problem, Other Sensory Impairments Opthamlomology History: Reports: Hx Contacts or Glasses, Hx Vision Problem Denies: Hx Cataracts, Hx Eye Injury, Other Sensory Impairments Neurological History: Reports: Hx Headaches, Hx Migraine, Hx Nerve Disease, Hx Seizures, Hx Transient Ischemic Attacks (TIA), Other Neuro Impairments/ Disorders - Hx of 2 TIA. Hx moyamoya disease. 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 . endarterectomy-left internal carotid Hx Anesthesia Reactions: No - Immunization History Date of Tetanus Vaccine: unk Date of Influenza Vaccine: 06/2017 Infectious Disease History: No Infectious Disease History: Reports: Hx Clostridium Difficile Denies: Hx Hepatitis, Hx Human Immunodeficiency Virus (HIV), Hx of Known/ Suspected MRSA, Hx Shingles, Hx Tuberculosis, Hx Known/Suspected VRE, Hx Known/ Suspected VRSA, History Other Infectious Disease, Traveled Outside the [place] in Last 30 Days - Family History Known Family History: Positive: Cardiac Disease, Other - bipolar disorder; alcohol abuse - Social History Alcohol Use: None Alcohol Amount: once/year Hx Substance Use: No Substance Use Type: Reports: None Hx Tobacco Use: Yes Smoking Status (MU): Former Smoker Type: Cigarettes Amount Used/How Often: quit in 2004 Have You Smoked in the Last Year: No Review of Systems Negative: Fever Positive: Chest Pain Positive: Shortness Of Breath, Cough Gastrointestinal: Negative Musculoskeletal: Negative Skin: Negative Neurological: Negative Psychological: Normal All Other Systems Reviewed And Are Negative: Yes Physical Exam - Summary Physical Exam Summary: Appearance: Ill-appearing, moderate pain distress, obese, mild respiratory distress at rest Skin: Warm, color reflects adequate perfusion Head: Normal Head/Face inspection Eyes: Conjunctiva clear ENT: Normal inspection Neck: Supple, no nodes, no JVD. Respiratory: mild Respiratory distress, diminished breath sounds bilaterally. Cardio: RRR, No murmur, pulses normal, brisk capillary refill Abdomen: soft, nontender Bowel sounds: present Musculoskeletal: Strength Intact/ ROM intact. No calf tenderness. No edema. Psychological: Normal Neuro: Alert, muscle tone normal, no focal deficit Triage Information Reviewed: Yes Vital Signs On Initial Exam: Initial Vitals Pulse Resp BP Pulse Ox 87 27 163/68 94 02/03/18 18:21 02/03/18 18:21 02/03/18 18:21 02/03/18 18:21 Vital Signs Reviewed: Yes Diagnostics - Vital Signs Vital Signs Temp Pulse Resp BP Pulse Ox 02/03/18 18:35 97.8 F 87 18 163/68 94 02/03/18 18:21 87 27 163/68 94 - Laboratory Lab Results: Lab Results 02/03/18 02/03/18 02/03/18 Range/Units 19:41 19:41 19:41 WBC 8.1 (3.5-10.8) 10^3/ul RBC 4.63 (4.0-5.4) 10^6/ul Hgb 13.4 (12.0-16.0) g/dl Hct 40 (35-47) % MCV 86 (80-97) fL MCH 29 (27-31) pg MCHC 34 (31-36) g/dl RDW 17 H (10.5-15) % Plt Count 181 (150-450) 10^3/ul MPV 8.4 (7.4-10.4) um3 Neut % (Auto) 52.9 (38-83) % Lymph % (Auto) 37.5 (25-47) % Harmon % (Auto) 7.1 H (0-7) % Eos % (Auto) 1.5 (0-6) % Baso % (Auto) 1.0 (0-2) % Absolute Neuts (auto) 4.3 (1.5-7.7) 10^3/ul Absolute Lymphs (auto) 3.0 (1.0-4.8) 10^3/ul Absolute Monos (auto) 0.6 (0-0.8) 10^3/ul Absolute Eos (auto) 0.1 (0-0.6) 10^3/ul Absolute Basos (auto) 0.1 (0-0.2) 10^3/ul Absolute Nucleated RBC 0 10^3/ul Nucleated RBC % 0.1 INR (Anticoag Therapy) 0.98 (0.77-1.02) APTT 30.1 (26.0-36.3) seconds D-Dimer, Quantitative < 200 (Less Than 230) ng/mL Patient Temperature ABG pH (7.35-7.45) ABG pH (Temp Correct) ABG pCO2 (35-45) mmHg ABG pCO2 (Temp Corrct ABG pO2 (80-100) mmHg ABG pO2 (Temp Correct ABG HCO3 (19-31) mmol/L ABG O2 Saturation (95-98) % ABG Base Excess (-2.0-2.0) Respiration Rate O2 Delivery Device Ventilator Type Vent Mode FiO2 Inspiratory Time PEEP Pressure Support Pressure Control EPAP IPAP BiPAP Sodium 139 (139-145) mmol/L Potassium 4.2 (3.5-5.0) mmol/L Chloride 103 (101-111) mmol/L Carbon Dioxide 25 (22-32) mmol/L Anion Gap 11 (2-11) mmol/L BUN 11 (6-24) mg/dL Creatinine 0.70 (0.51-0.95) mg/dL Est GFR ( Amer) 111.7 (>60) Est GFR (Non-Af Amer) 86.9 (>60) BUN/Creatinine Ratio 15.7 (8-20) Glucose 265 H (70-100) mg/dL Lactic Acid (0.5-2.0) mmol/L Calcium 9.1 (8.6-10.3) mg/dL Magnesium 1.8 L (1.9-2.7) mg/dL Total Bilirubin 0.30 (0.2-1.0) mg/dL AST 18 (13-39) U/L ALT 21 (7-52) U/L Alkaline Phosphatase 49 (34-104) U/L Total Creatine Kinase 59 (10-223) U/L CK-MB (CK-2) 1.6 (0.6-6.3) ng/mL Troponin I 0.00 (<0.04) ng/mL B-Natriuretic Peptide ( - 100) pg/mL Total Protein 6.7 (6.4-8.9) g/dL Albumin 3.9 (3.2-5.2) g/dL Globulin 2.8 (2-4) g/dL Albumin/Globulin Ratio 1.4 (1-3) Procalcitonin (<0.6) ng/mL Influenza A (Rapid) (Negative) Influenza B (Rapid) (Negative) 02/03/18 02/03/18 02/03/18 Range/Units 19:41 19:41 19:41 WBC (3.5-10.8) 10^3/ul RBC (4.0-5.4) 10^6/ul Hgb (12.0-16.0) g/dl Hct (35-47) % MCV (80-97) fL MCH (27-31) pg MCHC (31-36) g/dl RDW (10.5-15) % Plt Count (150-450) 10^3/ul MPV (7.4-10.4) um3 Neut % (Auto) (38-83) % Lymph % (Auto) (25-47) % Harmon % (Auto) (0-7) % Eos % (Auto) (0-6) % Baso % (Auto) (0-2) % Absolute Neuts (auto) (1.5-7.7) 10^3/ul Absolute Lymphs (auto) (1.0-4.8) 10^3/ul Absolute Monos (auto) (0-0.8) 10^3/ul Absolute Eos (auto) (0-0.6) 10^3/ul Absolute Basos (auto) (0-0.2) 10^3/ul Absolute Nucleated RBC 10^3/ul Nucleated RBC % INR (Anticoag Therapy) (0.77-1.02) APTT (26.0-36.3) seconds D-Dimer, Quantitative (Less Than 230) ng/mL Patient Temperature ABG pH (7.35-7.45) ABG pH (Temp Correct) ABG pCO2 (35-45) mmHg ABG pCO2 (Temp Corrct ABG pO2 (80-100) mmHg ABG pO2 (Temp Correct ABG HCO3 (19-31) mmol/L ABG O2 Saturation (95-98) % ABG Base Excess (-2.0-2.0) Respiration Rate O2 Delivery Device Ventilator Type Vent Mode FiO2 Inspiratory Time PEEP Pressure Support Pressure Control EPAP IPAP BiPAP Sodium (139-145) mmol/L Potassium (3.5-5.0) mmol/L Chloride (101-111) mmol/L Carbon Dioxide (22-32) mmol/L Anion Gap (2-11) mmol/L BUN (6-24) mg/dL Creatinine (0.51-0.95) mg/dL Est GFR ( Amer) (>60) Est GFR (Non-Af Amer) (>60) BUN/Creatinine Ratio (8-20) Glucose (70-100) mg/dL Lactic Acid 3.2 H* (0.5-2.0) mmol/L Calcium (8.6-10.3) mg/dL Magnesium (1.9-2.7) mg/dL Total Bilirubin (0.2-1.0) mg/dL AST (13-39) U/L ALT (7-52) U/L Alkaline Phosphatase (34-104) U/L Total Creatine Kinase (10-223) U/L CK-MB (CK-2) (0.6-6.3) ng/mL Troponin I (<0.04) ng/mL B-Natriuretic Peptide 25 ( - 100) pg/mL Total Protein (6.4-8.9) g/dL Albumin (3.2-5.2) g/dL Globulin (2-4) g/dL Albumin/Globulin Ratio (1-3) Procalcitonin < 0.1 (<0.6) ng/mL Influenza A (Rapid) (Negative) Influenza B (Rapid) (Negative) 02/03/18 02/03/18 Range/Units 20:31 21:10 WBC (3.5-10.8) 10^3/ul RBC (4.0-5.4) 10^6/ul Hgb (12.0-16.0) g/dl Hct (35-47) % MCV (80-97) fL MCH (27-31) pg MCHC (31-36) g/dl RDW (10.5-15) % Plt Count (150-450) 10^3/ul MPV (7.4-10.4) um3 Neut % (Auto) (38-83) % Lymph % (Auto) (25-47) % Harmon % (Auto) (0-7) % Eos % (Auto) (0-6) % Baso % (Auto) (0-2) % Absolute Neuts (auto) (1.5-7.7) 10^3/ul Absolute Lymphs (auto) (1.0-4.8) 10^3/ul Absolute Monos (auto) (0-0.8) 10^3/ul Absolute Eos (auto) (0-0.6) 10^3/ul Absolute Basos (auto) (0-0.2) 10^3/ul Absolute Nucleated RBC 10^3/ul Nucleated RBC % INR (Anticoag Therapy) (0.77-1.02) APTT (26.0-36.3) seconds D-Dimer, Quantitative (Less Than 230) ng/mL Patient Temperature Not Reportable ABG pH 7.40 (7.35-7.45) ABG pH (Temp Correct) Not Reportable ABG pCO2 46 H (35-45) mmHg ABG pCO2 (Temp Corrct Not Reportable ABG pO2 52 L* (80-100) mmHg ABG pO2 (Temp Correct Not Reportable ABG HCO3 27.0 (19-31) mmol/L ABG O2 Saturation 90.1 L (95-98) % ABG Base Excess 3.0 H (-2.0-2.0) Respiration Rate Not Reportable O2 Delivery Device nasal cannula Ventilator Type Not Reportable Vent Mode Not Reportable FiO2 32 Inspiratory Time Not Reportable PEEP Not Reportable Pressure Support Not Reportable Pressure Control Not Reportable EPAP Not Reportable IPAP Not Reportable BiPAP Not Reportable Sodium (139-145) mmol/L Potassium (3.5-5.0) mmol/L Chloride (101-111) mmol/L Carbon Dioxide (22-32) mmol/L Anion Gap (2-11) mmol/L BUN (6-24) mg/dL Creatinine (0.51-0.95) mg/dL Est GFR ( Amer) (>60) Est GFR (Non-Af Amer) (>60) BUN/Creatinine Ratio (8-20) Glucose (70-100) mg/dL Lactic Acid (0.5-2.0) mmol/L Calcium (8.6-10.3) mg/dL Magnesium (1.9-2.7) mg/dL Total Bilirubin (0.2-1.0) mg/dL AST (13-39) U/L ALT (7-52) U/L Alkaline Phosphatase (34-104) U/L Total Creatine Kinase (10-223) U/L CK-MB (CK-2) (0.6-6.3) ng/mL Troponin I (<0.04) ng/mL B-Natriuretic Peptide ( - 100) pg/mL Total Protein (6.4-8.9) g/dL Albumin (3.2-5.2) g/dL Globulin (2-4) g/dL Albumin/Globulin Ratio (1-3) Procalcitonin (<0.6) ng/mL Influenza A (Rapid) Negative (Negative) Influenza B (Rapid) Negative (Negative) Result Diagrams: 02/03/18 19:41 02/03/18 19:41 Lab Statement: Any lab studies that have been ordered have been reviewed, and results considered in the medical decision making process. - Radiology CXR Xray Interpretation: No Acute Changes - CXR reveals, per radiologist, IMPRESSION : NO EVIDENCE FOR ACUTE DISEASE. ED physician has reviewed this radiology report. Radiology Interpretation Completed By: Radiologist - EKG 1925 Cardiac Rate: NL EKG Rhythm: Sinus Rhythm - [address] Segment: Non-Specific Ectopy: None EKG Interpretation: normal IVAVCT, normal QTc, normal axis, left axis (-67) EKG Comparison: No Significant Change - No significant change from 12/23/17 Re-Evaluation - Re-Evaluation First Eval Re-Evaluation Time: 21:43 Change: Improved Comment: Told her about admission and increased her oxygen to 5L after results of PaO2 = 52, with spo2 increased to 98%. Gave 10mg IV labetalol for BP 195/85. Chest Pain Course/Dx - Course Course Of Treatment: This patient is a 57 year old female BIBA to [facility] accompanied by family with a chief complaint of chest pain since approx. 4 hours ago. By the time of exam, patient does not have chest pain, but whenever she coughs, and shes been coughing a lot, it hurts. Patient states the pain occurs everywhere on her chest. The pain is rated 5/10 in severity. Symptoms aggravated by deep breaths. Symptoms alleviated by nothing. The patient treated the sx with nothing POLICE MATRON. Patient additionally reports nonproductive cough, SOB. Patient has taken keflex and levaquin in the last month. An EKG, taken 1924, reveals NSR (85 BPM), normal IVAVCT, normal QTc, normal axis, left axis (-67), nonspecific, no ectopy. No significant change from 12/23/17. CXR reveals, per radiologist, IMPRESSION: NO EVIDENCE FOR ACUTE DISEASE. ED physician has reviewed this radiology report. Bloodwork Obtained. Urinalysis Obtained. Patient has a pO2 level of 52 and a lactic of 3.2. In the ED course the patient was given labetalol, albuterol, oxygen by MD, methylprednisolone. We discussed patient care with Dr. Lucia (Hospitalist) 2139 and she agreed to admit the patient. Patient will be admitted with a dx of hypoxia, malignant hypertension, and COPD exacerbation. The patient is agreeable with this plan. - Diagnoses Provider Diagnoses: Hypoxia, Malignant hypertension, COPD exacerbation, Poorly controlled diabetes mellitus - Provider Notifications Discussed Care Of Patient With: Angelika Lucia - Hospitalist Time Discussed With Above Provider: 21:40 - We discussed patient care with Dr. Lucia (Hospitalist) 2139 and she agreed to admit the patient. - Critical Care Time Critical Care Time: 30-74 min - 30 Discharge - Sign-Out/Discharge Documenting (check all that apply): Discharge/Admit/Transfer - Discharge Plan Condition: Stable Disposition: ADMITTED TO [facility] - Billing Disposition and Condition Condition: STABLE Disposition: [facility]P-[facility] [place] The documentation as recorded by the Crescencio españa Tecjoon accurately reflects the service I personally performed and the decisions made by Luis M steele Barbara J, MD.
--- NOTE | 2018-02-04 00:47 | HP ---
CC: Dr. Zelaya * HISTORY AND PHYSICAL: DATE OF ADMISSION: 02/03/18 PRIMARY CARE PROVIDER: Dr. Zelaya. CHIEF COMPLAINT: Shortness of breath and chest pain. HISTORY OF PRESENT ILLNESS: Ms. Sol is a 57-year-old female with a history moyamoya disease, COPD, who utilizes 3 L of oxygen most of the time at home, diastolic CHF, peripheral arterial disease, type 2 diabetes, seizure disorder, JOSIE, on CPAP, hypertension, and hyperlipidemia, who presents to the emergency room with complaints of shortness of breath and chest pain. The patient states that she had been feeling completely fine up until approximately 3 p.m. on the day of admission at which time she developed relatively sudden onset of shortness of breath. She utilized the nebulizer treatments, which did not seem to help. She then put her oxygen on. This too did not make any difference. The patient described also having chest pain with deep breath and coughing. She describes it as a pressure sensation in her chest. The patient states that she has had a cough over the last approximately 3 weeks. She was treated with Keflex x7 days, got no better; therefore, saw Dominga Carter NP, at Dr. Calderón's office and received Levaquin x1 week and again had no significant improvement in her symptoms. She has been off of Levaquin for approximately 1 week. She has been having significant cough, but minimal mucus production. She denies any fevers or chills. PAST MEDICAL HISTORY: 1. Moyamoya disease, status post intracranial bypass x2. 2. Chronic obstructive pulmonary disease. 3. Diastolic CHF. 4. CVA x2. 5. Peripheral arterial disease, status post left carotid stenting x2. 6. Type 2 diabetes. 7. Seizure disorder. 8. JOSIE. 9. Hypertension. 10. Hyperlipidemia. 11. GERD. 12. Mixed borderline personality disorder. 13. Bipolar disorder. 14. Depression. 15. Anxiety. 16. Morbid obesity. PAST SURGICAL HISTORY: 1. Left carotid stent. 2. Intracranial bypass x2. 3. x2. 4. Appendectomy. 5. Endometrial ablation. MEDICATIONS: 1. Clonazepam 1 mg p.o. t.i.d. p.r.n. anxiety. 2. Ranitidine 300 mg p.o. at bedtime. 3. Protonix 40 mg p.o. daily. 4. Zofran 4 mg p.o. q.6 hours p.r.n. nausea. 5. Multivitamin 1 tablet p.o. daily. 6. Lisinopril 20 mg p.o. at bedtime. 7. Victoza 1.8 mg subcutaneously at bedtime. 8. Glimepiride 4 mg p.o. daily. 9. Gabapentin 300 mg p.o. at bedtime. 10. Gabapentin 100 mg p.o. t.i.d. a.c. 11. Colace 100 mg p.o. b.i.d. 12. Depakote ER 1000 mg p.o. b.i.d. 13. Diltiazem CD 120 mg p.o. at bedtime. 14. Pristiq 100 mg p.o. daily. 15. Coreg 6.25 mg p.o. b.i.d. 16. Calcium 500 mg p.o. b.i.d. 17. Fioricet 1 tablet p.o. q.6 hours p.r.n. pain. 18. Bupropion XL 300 mg p.o. daily. 19. Lipitor 40 mg p.o. daily. 20. Aspirin 325 mg p.o. at bedtime. 21. Saphris 10 mg SL at bedtime. 22. Albuterol sulfate 2 puffs inhaled daily p.r.n. shortness of breath. 23. Albuterol 1 neb inhaled q.6 hours p.r.n. shortness of breath. ALLERGIES: NITROFURANTOIN, MEPERIDINE, AUGMENTIN, and MORPHINE. FAMILY HISTORY: Positive for diabetes and cancer. SOCIAL HISTORY: The patient is a former smoker, quitting in approximately 2004. She denies any alcohol and recreational drug use. She lives with her family. She is on disability. Her daughter, Debra, is her healthcare proxy. REVIEW OF SYSTEMS: Complete 11-system review of systems was obtained. Pertinent positives and negatives are as per HPI and otherwise are negative. PHYSICAL EXAMINATION GENERAL: The patient is a well-developed, morbidly obese, middle-aged female, lying in a stretcher, appearing to be in no acute distress. VITAL SIGNS: Blood pressure 188/74, pulse 83, respirations 28, temp 97.8, O2 sat 95% on 3L. HEENT: Pupils are equal and round. Extraocular muscles are intact. Oropharynx is clear. Oral mucosa is moist. There is no submandibular, cervical , or supraclavicular adenopathy. Thyroid is not enlarged. No thyroid nodules are noted, though this is a difficult exam given the patient's body habitus. PULMONARY: Breath sounds are diminished throughout, but clear. There is good air entry all the way to the bases. CARDIAC: Normal S1, S2. Regular rate and rhythm. I do not appreciate any murmurs. There is no lower extremity edema. ABDOMEN: Bowel sounds are present. Abdomen is soft, nontender, nondistended. It is obese. MUSCULOSKELETAL: There is no cyanosis or clubbing of the digits. There is full active range of motion of all 4 extremities. NEUROLOGIC: Cranial nerves II through XII are grossly intact. Sensation is intact to light touch throughout. Strength is 5/5 and symmetric in both upper and lower extremities bilaterally. SKIN: Warm and dry. There are no rashes. PSYCH: The patient is alert. She is oriented x3. Affect appears appropriate. DIAGNOSTIC STUDIES/LAB DATA: WBC 8.1, hemoglobin 13.4, hematocrit 40, platelets 181. INR is 0.98. D-dimer less than 200. Sodium 139, potassium 4.2 , chloride 103, CO2 of 25, BUN 11, creatinine 0.70, glucose 265, lactic acid 3.2 , calcium 9.1, magnesium 1.8. Bilirubin 0.3, AST 18, ALT 21, alk phos 49. CPK 59, CK-MB 1.6. Troponin 0. BNP 25. Albumin 3.9. Influenza A and B negative. ABG of 7.40/46/52. EKG reveals normal sinus rhythm, without any acute ST-T wave abnormalities. Chest x-ray: No evidence for acute disease. ASSESSMENT AND PLAN: Ms. Sol is a 57-year-old female who comes today with a past medical history significant for moyamoya disease, type 2 diabetes, chronic obstructive pulmonary disease, obstructive sleep apnea, peripheral arterial disease, and hypertension, who presents to the emergency room with complaints of shortness of breath and chest pain. 1. Shortness of breath: This likely represents chronic obstructive pulmonary disease exacerbation. The patient will be admitted under observation status to receive routine nebulizer treatments and IV steroids. I am holding off on antibiotics at this time as the patient denies any significant sputum production. Her chest x-ray is clear and she is afebrile. I did send off a procalcitonin and if this comes back positive, I will initiate antibiotic therapy; however, if it is negative, we will continue to hold antibiotics. The patient was increased to 5 L of oxygen in the emergency room, as her saturations were in the low 90s; however, in this patient low 90s are likely acceptable. 2. Chest pain: This likely is musculoskeletal related to her coughing. This has been going on over the last 3 weeks. She was admitted in November 2017 for shortness of breath and chest pain. At that time, she underwent transesophageal echocardiogram, which revealed normal left ventricular wall motion and contractility, and an ejection fraction of greater than 65%. She also had a nuclear stress test earlier in November 2017, which revealed a moderate- sized anterolateral defect, with both fixed and ischemic components. She was seen by Dr. Jose from cardiology who felt the patient, during the last admission, should continue on aspirin, statin, beta-elvira, and diltiazem for underlying stable ischemic heart disease. She was recommended to follow up with Dr. Villa as an outpatient. I do not think she needs to be ruled out again at this time, as her symptoms are more consistent with musculoskeletal chest pain. 3. Hypertension: The patient's blood pressure is currently markedly elevated. She had not had her evening medications. These will be given now. Additionally , she will receive labetalol 10 mg IV x1 now. 4. Moyamoya disease: Continue full dose aspirin daily. 5. Diastolic congestive heart failure: At this time, the patient appears to be compensated. I will not give any diuretic at this point. 6. Peripheral arterial disease: Continue statin and aspirin. 7. Type 2 diabetes: The patient will continue on her usual medications outside of the [facility] as this is not in the formulary. She will be placed on lispro sliding scale with fingersticks a.c. and h.s. 8. Seizure disorder: Continue usual home medications. 9. Hyperlipidemia: Continue statin. 10. Gastroesophageal reflux disease: Continue H2 elvira. 11. Borderline personality disorder/bipolar disorder/depression and anxiety: Continue home medications. 12. Deep venous thrombosis prophylaxis. According to the Adult Thrombosis Prophylaxis Risk Factor Assessment Guide, the patient has a total risk factor score of 3 making her high risk. She will be placed on heparin 5000 units subcutaneous q.8 hours. 14. Code status is full. TIME SPENT: Fifty-five minutes were spent admitting this patient. [id number]/[facility] #: [id number] SAURAV
[2018-02-04] MEDS ORDERED: hydrALAZINE IV* 20 MG/ML VIAL IV SLOW PU ONE (01:08)
[2018-02-04] MEDS ORDERED: hydrALAZINE IV* 20 MG/ML VIAL ONE (01:11)
[2018-02-04] MEDS ORDERED: hydrALAZINE IV* 20 MG/ML VIAL IV SLOW PU PRN (01:35)
[2018-02-04] MEDS: Divalproex ER TAB(*) 500 MG PO SCH ×2 (01:47→08:47)
[2018-02-04] MEDS: Docusate CAP* 100 MG PO SCH ×2 (01:51→08:48)
[2018-02-04] MEDS ORDERED: ASENAPINE 10 MG SL SCH (02:00)
[2018-02-04] MEDS ORDERED: Aspirin TAB* 325 MG PO SCH (02:00)
[2018-02-04] MEDS: Albuterol 2.5 MG/3 ML NEB.SOL* (0.083%) INH SCH ×5 (03:21→20:52)
[2018-02-04] MEDS: Heparin VIAL(*) 5000 UNITS/ML VIAL (FIVE THOUSAND) SUBCUT SCH ×2 (05:57→13:25)
[2018-02-04] MEDS ORDERED: Omeprazole CAP* 20 MG PO SCH (07:30)
[2018-02-04] MEDS ORDERED: methylPREDNISolone SOD 40 MG* 1 ML VIAL IV SCH (08:00)
[2018-02-04] MEDS: Insulin LISPRO* 1 UNITS UNIT SUBCUT SCH ×2 (08:44→12:22)
[2018-02-04] MEDS: Gabapentin CAP(*) 100 MG PO SCH ×2 (08:47→11:28)
[2018-02-04] MEDS ORDERED: CMCS:Desvenlafaxine (NF) 50 MG TAB PO SCH (09:00)
[2018-02-04] MEDS ORDERED: Calcium Carbonate TAB* 1250 MG (CALCIUM 500 MG) PO SCH (09:00)
[2018-02-04] MEDS ORDERED: CMCS:Glimepiride (NF) 2 MG TAB PO SCH (09:00)
[2018-02-04] MEDS ORDERED: Multivitamins/Minerals TAB PO SCH (09:00)
[2018-02-04] MEDS ORDERED: BuPROPion XL* 300 MG TAB.XL PO SCH (09:00)
[2018-02-04] MEDS ORDERED: Carvedilol TAB* 6.25 MG PO SCH (09:00)
[2018-02-04 10:33] VITALS: BP 146/67
[2018-02-04] MEDS ORDERED: Albuterol/Ipratropium NEB.SOL* Albuterol 2.5 MG/Ipratropium 0.5 MG 3 ML INH PRN (12:43)
[2018-02-04] MEDS ORDERED: predniSONE TAB* 10 MG PO ONE (12:47)
[2018-02-04] MEDS ORDERED: Atorvastatin* 40 MG TAB PO SCH (17:00)
--- NOTE | 2018-02-04 18:03 | DS ---
CC: Dr. Ang Zelaya DISCHARGE SUMMARY: DATE OF ADMISSION: DATE OF DISCHARGE: 02/04/18. HISTORY: This 57-year-old woman presented with shortness of breath and chest pain. She has a long history of COPD as well as obstructive sleep apnea. The chest pain in the emergency room was felt to be related to musculoskeletal pain from coughing. She had been treated with cephalexin for 7 days at home and then levofloxacin for another 7 days and has been off the levofloxacin for about a week. She had a nonproductive cough. She had no fever or chills. In the emergency room, her white count was 8.1. Her procalcitonin was 0.1, a very low value. She was given steroids and nebulizers only. She did fairly well in the hospital. She has home oxygen. She uses albuterol and her nebulizer at home. She is going to go home with DuoNeb to use in her nebulizer. As her pharmacy is closed on Sundays, she will get 6 from the pharmacy here, so she will have enough pills. 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 She got an extra dose of 30 mg of prednisone p.o., as the Solu-Medrol dose was 40 mg and was given at 4 in the morning. She will take tapering dose of prednisone 10 mg, 6 tablets tapering to 0 over 6 days, DuoNeb as needed. She was instructed to use DuoNeb every 4 hours while awake for the first week at home. On the day of discharge, she was clinically quite stable. There was no more chest pain. There was marked tenderness to palpation of the sternum. She was breathing comfortably though otherwise. FINAL DIAGNOSES: 1. Chronic obstructive pulmonary disease exacerbation. 2. Obstructive sleep apnea, on CPAP. 3. Morbid obesity. 4. Bipolar disorder. 5. Moyamoya disease. 6. Seizure disorder. 7. Hypertension. 8. Hyperlipidemia. 9. Gastroesophageal reflux disease. 10. Diabetes. DISCHARGE MEDICATIONS: 1. Albuterol and ipratropium by nebulizer every 4 hours p.r.n., to use every 4 hours while awake for the first week at home. 2. Prednisone 10 mg taper from 6 to 0 over 6 days. 3. Multivitamin with minerals daily. 4. Ranitidine 300 mg h.s. 5. Liraglutide 1.8 mg subcu every evening. 6. Glimepiride 4 mg daily. 7. Carvedilol 6.25 mg b.i.d. 8. Lisinopril 20 mg daily at bedtime. 9. Ondansetron 4 mg every 6 hours p.r.n. 10. Docusate 100 mg b.i.d. 11. Aspirin 325 mg daily. 12. Divalproex ER 1000 mg b.i.d. 13. Atorvastatin 40 mg daily at 5 p.m. 14. Albuterol inhaler 2 puffs daily p.r.n. 15. Fioricet 1 tab every 6 hours p.r.n. 16. Clonazepam 1 mg t.i.d. p.r.n. 17. Gabapentin 100 mg t.i.d. plus 300 mg h.s. 18. Diltiazem CD 120 mg h.s. 19. Calcium carbonate 500 mg b.i.d. 20. Bupropion XL 300 mg daily. 21. Asenapine 10 mg h.s. 22. Desvenlafaxine 100 mg daily. 23. Pantoprazole 40 mg daily. [id number]/[facility] #: [id number] MTDD
[2018-02-05] MEDS ORDERED: predniSONE TAB* 10 MG PO SCH (09:00)
== END 2018-02-04 13:00 | disposition home or self-care (01) ==
LOC: ED 18:12 → MED 21:51
PROVIDERS: ADMIT Hospitalist; ATTEND Internal Medicine
DX: J44.1 Chronic obstructive pulmonary disease with (acute) exacerbation (principal); R07.9 Chest pain, unspecified; G47.33 Obstructive sleep apnea (adult) (pediatric); E66.01 Morbid (severe) obesity due to excess calories; F31.9 Bipolar disorder, unspecified; I67.5 Moyamoya disease; G40.909 Epilepsy, unspecified, not intractable, without status epilepticus; I11.0 Hypertensive heart disease with heart failure; I50.30 Unspecified diastolic (congestive) heart failure; E78.5 Hyperlipidemia, unspecified; K21.9 Gastro-esophageal reflux disease without esophagitis; I73.9 Peripheral vascular disease, unspecified; E11.9 Type 2 diabetes mellitus without complications; Z79.899 Other long term (current) drug therapy; Z88.8 Allergy status to other drugs, medicaments and biological substances; Z86.73 Personal history of transient ischemic attack (TIA), and cerebral infarction without residual deficits; Z87.891 Personal history of nicotine dependence; R94.31 Abnormal electrocardiogram [ECG] [EKG]
CPT/HCPCS: 36415; 71045; 80053; 82550; 82553; 82803; 83605; 83735; 83880; 84145; 84484; 85025; 85379; 85610; 85730; 87502; 93005; 94640; 96374; 96375; 96376; 99291; A9270-GY; G0378; J0360; J1644; J2920; J2930; J7512

== ENCOUNTER 2018-02-10 17:09 | Inpatient (IN) | payer MEDICARE, MEDICAID ==
--- NOTE | 2018-02-10 18:42 | ED ---
Maurilio Michaels Stephanie, scribed for William Narvaez MD on 02/10/18 at 1820 . Substance Abuse/Use - HPI Summary HPI Summary: The pt is a 57 y/o F presenting to the ED with c/o OD on gabapentin at 17:00. She took 900 mg of gabapentin. The pt states she is depressed due to problems with her family. Pt states she took OD to "get out of the situation." - History Of Current Complaint Chief Complaint: EDMentalHealth Stated Complaint: MHE Time Seen by Provider: 02/10/18 17:49 Hx Obtained From: Patient, Family/Sports Marketing Specialist - daughter Hx Last Menstrual Period: not since 2009 ?: No Onset/Duration of Drug/ETOH Abuse: Hours Ingestion History: Type/Name Of Drug - gabapentin Overdose Characteristics: Oral Timing Of Abuse: Binge Use Severity Currently: Mild Aggravating Factor(s): Recent Stress Alleviating Factor(s): Nothing - Allergies/Home Medications Allergies/Adverse Reactions: Allergies Allergy/AdvReac Type Severity Reaction Status Date / Time nitrofurantoin Allergy Severe Rash Verified 01/10/18 16:18 meperidine Allergy Intermediate Headache Verified 01/10/18 16:18 clavulanic acid AdvReac Intermediate Nausea And Verified 01/10/18 16:18 Vomiting morphine AdvReac Intermediate Nausea Verified 01/10/18 16:18 Home Medications: Home Medications Acetaminophen TAB* [Tylenol TAB*] 325 mg PO BEDTIME 02/10/18 [History Confirmed 02/10/18] Albuterol 2.5MG/3ML (0.083%)* [Ventolin 2.5 MG/3 ML NEB.SANDEEP*] 2.5 mg INH Q4H PRN 02/10/18 [History Confirmed 02/10/18] Albuterol Sulfate [Proventil Hfa] 2 puff INH BID PRN 02/10/18 [History Confirmed 02/10/18] Asenapine(NF) [Saphris(NF)] 10 mg SL BEDTIME 02/10/18 [History Confirmed ] Atorvastatin* [Lipitor*] 40 mg PO QPM 02/10/18 [History Confirmed 02/10/18] Butalb/Acetamin/Caff TAB* [Fioricet TAB*] 1 tab PO Q6H PRN 02/10/18 [History Confirmed 02/10/18] Calcium Carbonate/Vitamin D3 [Oyster Shell Calcium Tablet] 500 mg PO BID WITH MEALS 02/10/18 [History Confirmed 02/10/18] Carvedilol TAB* [Coreg TAB*] 6.25 mg PO BID 02/10/18 [History Confirmed 02/10/18 ] Desvenlafaxine(NF) [Pristiq(NF)] 100 mg PO QAM 02/10/18 [History Confirmed 02/10] Diltiazem TAB* [Cardizem 60 MG Tab*] 120 mg PO BEDTIME 02/10/18 [History Confirmed 02/10/18] Divalproex ER TAB(*) [Depakote ER TAB(*)] 1,000 mg PO BID 02/10/18 [History Confirmed 02/10/18] Docusate CAP* [Colace Cap*] 100 mg PO BID 02/10/18 [History Confirmed 02/10/18] Gabapentin CAP(*) [Neurontin 100 mg CAP(*)] 100 mg PO TID 02/10/18 [History Confirmed 02/10/18] Gabapentin CAP(*) [Neurontin 300 CAP(*)] 300 mg PO BEDTIME 02/10/18 [History Confirmed 02/10/18] Glimepiride (NF) 4 mg PO DAILY 02/10/18 [History Confirmed 02/10/18] Liraglutide (NF) [Victoza (NF)] 1.8 mg SUBCUT DAILY 02/10/18 [History Confirmed 02/10/18] Lisinopril TAB* [Prinivil TAB*] 20 mg PO BEDTIME 02/10/18 [History Confirmed 09/18] Ondansetron TAB* [Zofran 4 MG Tab*] 4 mg PO Q6H PRN 02/10/18 [History Confirmed 02/10/18] Pantoprazole TAB (NF) [Protonix TAB (NF)] 40 mg PO QAM 02/10/18 [History Confirmed 02/10/18] Ranitidine TAB (NF) [Zantac TAB (NF)] 300 mg PO BEDTIME 02/10/18 [History Confirmed 02/10/18] buPROPion HCl [Bupropion HCl ER] 300 mg PO QAM 02/10/18 [History Confirmed 02/10] clonazePAM TAB(*) [KlonoPIN TAB(*)] 1 mg PO TID PRN 02/10/18 [History Confirmed 02/10/18] PMH/Surg Hx/FS Hx/Imm Hx Endocrine/Hematology History: Reports: Hx Diabetes, Other Endocrine/ Hematological Disorders Denies: Hx Thyroid Disease, Hx Anemia, Hx Unexplained Bleeding Cardiovascular History: Reports: Hx Cardiac Arrest, Hx Congestive Heart Failure , Hx Hypercholesterolemia, Hx Hypertension Denies: Hx Aneurysm, Hx Angina, Hx Angioplasty, Hx Auto Implanted Cardiovert Defib, Hx Cardiomegaly, Hx Congenital Heart Disease, Hx Coronary Artery Disease , Hx Deep Vein Thrombosis, Hx Embolism, Hx Hypotension, Hx Myocardial Infarction , Hx Pacemaker/ICD, Hx Peripheral Vascular Disease, Hx Rheumatic Fever, Hx Syncope, Hx Valvular Heart Disease, Other Cardiovascular Problems/Disorders Respiratory History: Reports: Hx Asthma, Hx Chronic Bronchitis, Hx Chronic Obstructive Pulmonary Disease (COPD) - 3L O2 at home, Hx Pneumonia, Hx Sleep Apnea, Other Respiratory Problems/Disorders - PNEUMONIA IN 2001 Denies: Hx Cystic Fibrosis, Hx Lung Cancer, Hx Pleural Effusion, Hx Pulmonary Edema, Hx Pulmonary Embolism, Hx Seasonal Allergies GI History: Reports: Hx Gastroesophageal Reflux Disease, Other GI Disorders - "sphincter in stomach not working" Denies: Hx Cirrhosis, Hx Crohn's Disease, Hx Diverticulosis, Hx Gall Bladder Disease, Hx Gastrointestinal Bleed, Hx Hiatal Hernia, Hx Irritable Bowel, Hx Jaundice, Hx Obstructive Bowel, Hx Ileostomy, Hx Pyloric Stenosis, Hx Ulcer History: Reports: Hx Acute Renal Failure, Hx Renal Disease Denies: Hx Benign Prostatic Hyperplasia, Hx Chronic Renal Failure, Hx Dialysis, Hx Kidney Infection, Hx Kidney Stones, Other Problems/Disorders Musculoskeletal History: Reports: Hx Arthritis, Hx Back Problems, Hx Orthopedic Injury, Hx Scoliosis Denies: Hx Osteoporosis Sensory History: Reports: Hx Contacts or Glasses, Hx Vision Problem Denies: Hx Cataracts, Hx Eye Injury, Hx Hearing Aid, Hx Hearing Problem, Other Sensory Impairments Opthamlomology History: Reports: Hx Contacts or Glasses, Hx Vision Problem Denies: Hx Cataracts, Hx Eye Injury, Other Sensory Impairments Neurological History: Reports: Hx Headaches, Hx Migraine, Hx Nerve Disease, Hx Seizures, Hx Transient Ischemic Attacks (TIA), Other Neuro Impairments/ Disorders - Hx of 2 TIA. Hx moyamoya disease. 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 . endarterectomy-left internal carotid Hx Anesthesia Reactions: No - Immunization History Date of Tetanus Vaccine: unk Date of Influenza Vaccine: 06/2017 Infectious Disease History: No Infectious Disease History: Reports: Hx Clostridium Difficile Denies: Hx Hepatitis, Hx Human Immunodeficiency Virus (HIV), Hx of Known/ Suspected MRSA, Hx Shingles, Hx Tuberculosis, Hx Known/Suspected VRE, Hx Known/ Suspected VRSA, History Other Infectious Disease, Traveled Outside the [place] in Last 30 Days - Family History Known Family History: Positive: Cardiac Disease, Other - bipolar disorder; alcohol abuse - Social History Occupation: Disabled Lives: With Family Alcohol Use: None Alcohol Amount: once/year Hx Substance Use: No Substance Use Type: Reports: None Hx Tobacco Use: Yes Smoking Status (MU): Former Smoker Type: Cigarettes Amount Used/How Often: quit in 2004 Have You Smoked in the Last Year: No Review of Systems Negative: Fever Negative: Slurred Speech Positive: Other - SI All Other Systems Reviewed And Are Negative: Yes Physical Exam - Summary Physical Exam Summary: General: well-appearing, no pain distress Skin: warm, color reflects adequate perfusion, dry Head: normal Eyes: EOMI, GERMANIA, pupils 3 mm reactive ENT: normal Neck: supple, nontender Respiratory: CTA, breath sounds present Cardiovascular: RRR Abdomen: soft, nontender Bowel: present Musculoskeletal: normal, strength/ROM intact Neurological: sensory/motor intact, A&O x3 Psychological: affect/mood appropriate Triage Information Reviewed: Yes Vital Signs On Initial Exam: Initial Vitals Temp Pulse Resp BP Pulse Ox 98.6 F 78 16 184/92 98 02/10/18 17:23 02/10/18 17:23 02/10/18 17:23 02/10/18 17:23 02/10/18 17:23 Vital Signs Reviewed: Yes Diagnostics - Vital Signs Vital Signs Temp Pulse Resp BP Pulse Ox 02/10/18 17:23 98.6 F 78 16 184/92 98 - Laboratory Lab Statement: Any lab studies that have been ordered have been reviewed, and results considered in the medical decision making process. - EKG 18:02 Cardiac Rate: NL EKG Rhythm: Sinus Rhythm - [address] Segment: Normal Ectopy: None EKG Interpretation: RSR in V1 and V2 Course/Dx - Course Course Of Treatment: This pt is a sign out to Dr. Costello at shift change pending labs, MHE and disposition. - Diagnoses Provider Diagnoses: Mental health problem Discharge - Sign-Out/Discharge Documenting (check all that apply): Sign-Out Patient Signing out patient TO: Eleazar Costello - Pending labs, MHE, and dispo. - Discharge Plan Referrals: Ang Zelaya MD [Primary Care Provider] - The documentation as recorded by the Maurilio españa Stephanie accurately reflects the service I personally performed and the decisions made by me, William Narvaez MD.
[2018-02-10 18:47] LABS: ABS Basophils 0.1 10^3/ul (0-0.2); ABS Eosinophils 0.1 10^3/ul (0-0.6); ABS Lymphocytes 2.4 10^3/ul (1.0-4.8); ABS Monocytes 0.6 10^3/ul (0-0.8); ABS Neutrophils 8.2 10^3/ul (1.5-7.7); ABS Nucleated RBC 0 10^3/ul; Eosinophil % 0.5 % (0-6); Hematocrit 41 % (35-47); Hemoglobin 14.2 g/dl (12.0-16.0); Lymphocyte % 21.2 % (25-47); Mean Corpuscular HGB Conc 34 g/dl (31-36); Mean Corpuscular Hemoglobin 29 pg (27-31); Mean Corpuscular Volume 86 fL (80-97); Mean Platelet Volume 8.6 um3 (7.4-10.4); Nucleated Red Blood Cells % 0.1; Platelet Count 197 10^3/ul (150-450); Red Blood Count 4.82 10^6/ul (4.0-5.4); Red Cell Distribution Width 17 % (10.5-15); White Blood Count 11.3 10^3/ul (3.5-10.8)
[2018-02-10 19:12] LABS: EGFR Non-African American 74.5 (>60)
[2018-02-10 19:23] LABS: Urine Appearance Clear; Urine Blood Negative (Negative); Urine Color Straw; Urine Ketones Trace (Negative); Urine Protein Negative (Negative); Urine Specific Gravity 1.012 (1.010-1.030); Urine Urobilinogen Negative (Negative)
[2018-02-10] MEDS ORDERED: Atorvastatin* 40 MG TAB PO ONE (20:42)
[2018-02-10] MEDS ORDERED: Lisinopril TAB* 10 MG PO ONE (20:42)
[2018-02-10] MEDS ORDERED: Divalproex ER TAB(*) 500 MG PO ONE (20:42)
[2018-02-10] MEDS ORDERED: Carvedilol TAB* 6.25 MG PO ONE (20:42)
[2018-02-10] MEDS ORDERED: Ranitidine TAB (NF) 150 MG TAB PO ONE (20:42)
[2018-02-10] MEDS ORDERED: Diltiazem TAB* 60 MG PO ONE (20:42)
[2018-02-10] MEDS ORDERED: Famotidine TAB* 20 MG PO ONE (23:00)
[2018-02-10] MEDS: Asenapine(NF) 10 MG TAB.SL SL SCH (23:50)
--- NOTE | 2018-02-11 06:35 | ED ---
Ricardo Michaels Jennifer, scribed for Eleazar Costello MD on 02/11/18 at 0238 . Progress - Progress Note Progress Note: The patient is a sign out from Dr. Narvaez pending transfer disposition. The patient will be transferred to mental health unit. The patient is diagnosed with depressive disorder. - Consult/PCP Time Called: 00:01 Course/Dx - Course Course Of Treatment: This pt is a sign out from Dr. Narvaez at shift change pending labs, MHE and disposition. The patient is diagnosed with major depressive disorder. The patient will be signed out to Dr. Narvaez pending transfer disposition. - Diagnoses Provider Diagnoses: Major depressive disorder Discharge - Sign-Out/Discharge Documenting (check all that apply): Sign-Out Patient Signing out patient TO: William Narvaez - pending transfer dispo - Discharge Plan Referrals: Ang Zelaya MD [Primary Care Provider] - The documentation as recorded by the Ricardo españa Jennifer accurately reflects the service I personally performed and the decisions made by , Eleazar Costello MD.
[2018-02-11] MEDS ORDERED: DESVENLAFAXINE 100 MG PO SCH (09:30)
--- NOTE | 2018-02-11 10:00 | PN ---
ED Flex Patient Progress Note Date of Service: 02/11/18 Subjective: ED Flex Day #1 for 57 y.o. single, white female with a history of bipolarity who presents with depressed mood and SI. Objective: Depressed overweight white female; positive for SI with plan to OD on meds Assessment: Bipolar Depression Plan: Await transfer to outside facility as [facility] has no open beds. Vital Signs Temp Pulse Resp BP Pulse Ox 98.4 F 68 20 113/47 94 02/11/18 08:45 02/11/18 08:45 02/11/18 08:45 02/11/18 08:45 02/11/18 08:45 Lab Results - Entire Visit 02/11/18 02/10/18 02/10/18 08:21 19:05 19:05 WBC RBC Hgb Hct MCV MCH MCHC RDW Plt Count MPV Neut % (Auto) Lymph % (Auto) [place] % (Auto) Eos % (Auto) Baso % (Auto) Absolute Neuts (auto) Absolute Lymphs (auto) Absolute Monos (auto) Absolute Eos (auto) Absolute Basos (auto) Absolute Nucleated RBC Nucleated RBC % Sodium Potassium Chloride Carbon Dioxide Anion Gap BUN Creatinine Est GFR ( Amer) Est GFR (Non-Af Amer) BUN/Creatinine Ratio Glucose POC Glucose (mg/dL) 145 H Calcium Total Bilirubin AST ALT Alkaline Phosphatase Total Protein Albumin Globulin Albumin/Globulin Ratio TSH Urine Color Straw Urine Appearance Clear Urine pH 5.0 Ur Specific [place] 1.012 Urine Protein Negative Urine Ketones Trace A Urine Blood Negative Urine Nitrate Negative Urine Bilirubin Negative Urine Urobilinogen Negative Ur Leukocyte Esterase Trace A Urine WBC (Auto) Trace(0-5/hpf) Urine RBC (Auto) Trace(0-2/hpf) Ur Squamous Epith Cells Present A Urine Bacteria Absent Urine Glucose 3+(>=500 mg/dl) A Salicylates Urine Opiates Screen None detected Acetaminophen Ur Barbiturates Screen None detected Ur Phencyclidine Scrn None detected Ur Amphetamines Screen None detected U Benzodiazepines Scrn None detected Urine Cocaine Screen None detected U Cannabinoids Screen None detected Serum Alcohol 02/10/18 02/10/18 18:38 18:32 WBC 11.3 H RBC 4.82 Hgb 14.2 Hct 41 MCV 86 MCH 29 MCHC 34 RDW 17 H Plt Count 197 MPV 8.6 Neut % (Auto) 72.6 Lymph % (Auto) 21.2 L [place] % (Auto) 5.1 Eos % (Auto) 0.5 Baso % (Auto) 0.6 Absolute Neuts (auto) 8.2 H Absolute Lymphs (auto) 2.4 Absolute Monos (auto) 0.6 Absolute Eos (auto) 0.1 Absolute Basos (auto) 0.1 Absolute Nucleated RBC 0 Nucleated RBC % 0.1 Sodium 136 L Potassium 4.6 Chloride 100 L Carbon Dioxide 24 Anion Gap 12 H BUN 19 Creatinine 0.80 Est GFR ( Amer) 95.8 Est GFR (Non-Af Amer) 74.5 BUN/Creatinine Ratio 23.8 H Glucose 335 H POC Glucose (mg/dL) Calcium 9.2 Total Bilirubin 0.40 AST 17 ALT 22 Alkaline Phosphatase 44 Total Protein 6.7 Albumin 3.9 Globulin 2.8 Albumin/Globulin Ratio 1.4 TSH 1.12 Urine Color Urine Appearance Urine pH Ur Specific [place] Urine Protein Urine Ketones Urine Blood Urine Nitrate Urine Bilirubin Urine Urobilinogen Ur Leukocyte Esterase Urine WBC (Auto) Urine RBC (Auto) Ur Squamous Epith Cells Urine Bacteria Urine Glucose Salicylates < 2.50 Urine Opiates Screen Acetaminophen < 15 Ur Barbiturates Screen Ur Phencyclidine Scrn Ur Amphetamines Screen U Benzodiazepines Scrn Urine Cocaine Screen U Cannabinoids Screen Serum Alcohol < 10
[2018-02-11] MEDS: Omeprazole CAP* 20 MG PO SCH (10:34)
[2018-02-11] MEDS: Carvedilol TAB* 6.25 MG PO SCH ×2 (10:34→22:22)
[2018-02-11] MEDS: Docusate CAP* 100 MG PO SCH ×2 (10:35→22:22)
[2018-02-11] MEDS: Divalproex ER TAB(*) 500 MG PO SCH ×2 (10:35→22:22)
[2018-02-11] MEDS: BuPROPion XL* 300 MG TAB.XL PO SCH (10:36)
[2018-02-11] MEDS: Asenapine(NF) 10 MG TAB.SL SL SCH ×2 (10:39→22:23)
[2018-02-11] MEDS: Liraglutide (NF) 18 MG/3 ML SUBCUT SCH (10:49)
--- NOTE | 2018-02-11 11:03 | PN ---
ED Flex Patient Progress Note Date of Service: 02/10/18 Subjective: This is a 57 year-old F who is pending admission to [facility] / transfer to another psychiatric facility / discharge to home / or being observed secondary to OD. Pt. examined around 0930. She is watching TV. She offers no complaints. Wearing chronic O2. Objective: Vitals: Most recent vital signs documented below. General NAD, Alert and oriented x3. Laboratory: Current laboratory results documented below. Assessment: Pending dispo. Plan: Pending dispo. Vital Signs Temp Pulse Resp BP Pulse Ox 98.4 F 68 20 113/47 94 02/11/18 08:45 02/11/18 08:45 02/11/18 08:45 02/11/18 08:45 02/11/18 08:45 Lab Results - Entire Visit 02/11/18 02/10/18 02/10/18 08:21 19:05 19:05 WBC RBC Hgb Hct MCV MCH MCHC RDW Plt Count MPV Neut % (Auto) Lymph % (Auto) [place] % (Auto) Eos % (Auto) Baso % (Auto) Absolute Neuts (auto) Absolute Lymphs (auto) Absolute Monos (auto) Absolute Eos (auto) Absolute Basos (auto) Absolute Nucleated RBC Nucleated RBC % Sodium Potassium Chloride Carbon Dioxide Anion Gap BUN Creatinine Est GFR ( Amer) Est GFR (Non-Af Amer) BUN/Creatinine Ratio Glucose POC Glucose (mg/dL) 145 H Calcium Total Bilirubin AST ALT Alkaline Phosphatase Total Protein Albumin Globulin Albumin/Globulin Ratio TSH Urine Color Straw Urine Appearance Clear Urine pH 5.0 Ur Specific [place] 1.012 Urine Protein Negative Urine Ketones Trace A Urine Blood Negative Urine Nitrate Negative Urine Bilirubin Negative Urine Urobilinogen Negative Ur Leukocyte Esterase Trace A Urine WBC (Auto) Trace(0-5/hpf) Urine RBC (Auto) Trace(0-2/hpf) Ur Squamous Epith Cells Present A Urine Bacteria Absent Urine Glucose 3+(>=500 mg/dl) A Salicylates Urine Opiates Screen None detected Acetaminophen Ur Barbiturates Screen None detected Ur Phencyclidine Scrn None detected Ur Amphetamines Screen None detected U Benzodiazepines Scrn None detected Urine Cocaine Screen None detected U Cannabinoids Screen None detected Serum Alcohol 02/10/18 02/10/18 18:38 18:32 WBC 11.3 H RBC 4.82 Hgb 14.2 Hct 41 MCV 86 MCH 29 MCHC 34 RDW 17 H Plt Count 197 MPV 8.6 Neut % (Auto) 72.6 Lymph % (Auto) 21.2 L [place] % (Auto) 5.1 Eos % (Auto) 0.5 Baso % (Auto) 0.6 Absolute Neuts (auto) 8.2 H Absolute Lymphs (auto) 2.4 Absolute Monos (auto) 0.6 Absolute Eos (auto) 0.1 Absolute Basos (auto) 0.1 Absolute Nucleated RBC 0 Nucleated RBC % 0.1 Sodium 136 L Potassium 4.6 Chloride 100 L Carbon Dioxide 24 Anion Gap 12 H BUN 19 Creatinine 0.80 Est GFR ( Amer) 95.8 Est GFR (Non-Af Amer) 74.5 BUN/Creatinine Ratio 23.8 H Glucose 335 H POC Glucose (mg/dL) Calcium 9.2 Total Bilirubin 0.40 AST 17 ALT 22 Alkaline Phosphatase 44 Total Protein 6.7 Albumin 3.9 Globulin 2.8 Albumin/Globulin Ratio 1.4 TSH 1.12 Urine Color Urine Appearance Urine pH Ur Specific [place] Urine Protein Urine Ketones Urine Blood Urine Nitrate Urine Bilirubin Urine Urobilinogen Ur Leukocyte Esterase Urine WBC (Auto) Urine RBC (Auto) Ur Squamous Epith Cells Urine Bacteria Urine Glucose Salicylates < 2.50 Urine Opiates Screen Acetaminophen < 15 Ur Barbiturates Screen Ur Phencyclidine Scrn Ur Amphetamines Screen U Benzodiazepines Scrn Urine Cocaine Screen U Cannabinoids Screen Serum Alcohol < 10
[2018-02-11] MEDS ORDERED: clonazePAM TAB(*) 1 MG PO ONE (14:07)
[2018-02-11] MEDS: Atorvastatin* 40 MG TAB PO SCH (17:14)
[2018-02-11] MEDS: Lisinopril TAB* 10 MG PO SCH (22:22)
[2018-02-11] MEDS: Diltiazem CD CAP* 120 MG PO SCH (22:22)
[2018-02-12] MEDS: Divalproex ER TAB(*) 500 MG PO SCH ×2 (08:25→20:49)
[2018-02-12] MEDS: Carvedilol TAB* 6.25 MG PO SCH ×2 (08:25→20:49)
[2018-02-12] MEDS: BuPROPion XL* 300 MG TAB.XL PO SCH (08:25)
[2018-02-12] MEDS: Omeprazole CAP* 20 MG PO SCH (08:25)
[2018-02-12] MEDS: DESVENLAFAXINE 100 MG PO SCH (08:26)
[2018-02-12] MEDS: Famotidine TAB* 20 MG PO SCH (08:26)
[2018-02-12] MEDS: Docusate CAP* 100 MG PO SCH ×2 (08:26→20:49)
[2018-02-12] MEDS: Liraglutide (NF) 18 MG/3 ML SUBCUT SCH (08:52)
--- NOTE | 2018-02-12 08:56 | PN ---
ED Flex Patient Progress Note Date of Service: 02/10/18 Subjective: This is a 57 year-old F who is pending admission to [facility] / transfer to another psychiatric facility / discharge to home / or being observed secondary to SI. Pt. examined around 0840. Pt. sitting on side of bed eating corn flakes. She offers no complaints other than feeling bored. Objective: Vitals: Most recent vital signs documented below. General NAD, Alert and oriented x3. Laboratory: Current laboratory results documented below. Assessment: Pending dispo. Plan: Pending psychiatric or medical consultation to observe / transfer / admit / discharge will follow up daily . Vital Signs Temp Pulse Resp BP Pulse Ox 97.4 F 78 17 123/69 95 02/12/18 08:48 02/12/18 08:48 02/12/18 08:48 02/12/18 08:48 02/12/18 08:48 Lab Results - Entire Visit 02/12/18 02/11/18 02/10/18 08:21 08:21 19:05 WBC RBC Hgb Hct MCV MCH MCHC RDW Plt Count MPV Neut % (Auto) Lymph % (Auto) [place] % (Auto) Eos % (Auto) Baso % (Auto) Absolute Neuts (auto) Absolute Lymphs (auto) Absolute Monos (auto) Absolute Eos (auto) Absolute Basos (auto) Absolute Nucleated RBC Nucleated RBC % Sodium Potassium Chloride Carbon Dioxide Anion Gap BUN Creatinine Est GFR ( Amer) Est GFR (Non-Af Amer) BUN/Creatinine Ratio Glucose POC Glucose (mg/dL) 190 H 145 H Calcium Total Bilirubin AST ALT Alkaline Phosphatase Total Protein Albumin Globulin Albumin/Globulin Ratio TSH Urine Color Urine Appearance Urine pH Ur Specific [place] Urine Protein Urine Ketones Urine Blood Urine Nitrate Urine Bilirubin Urine Urobilinogen Ur Leukocyte Esterase Urine WBC (Auto) Urine RBC (Auto) Ur Squamous Epith Cells Urine Bacteria Urine Glucose Salicylates Urine Opiates Screen None detected Acetaminophen Ur Barbiturates Screen None detected Ur Phencyclidine Scrn None detected Ur Amphetamines Screen None detected U Benzodiazepines Scrn None detected Urine Cocaine Screen None detected U Cannabinoids Screen None detected Serum Alcohol 02/10/18 02/10/18 02/10/18 19:05 18:38 18:32 WBC 11.3 H RBC 4.82 Hgb 14.2 Hct 41 MCV 86 MCH 29 MCHC 34 RDW 17 H Plt Count 197 MPV 8.6 Neut % (Auto) 72.6 Lymph % (Auto) 21.2 L [place] % (Auto) 5.1 Eos % (Auto) 0.5 Baso % (Auto) 0.6 Absolute Neuts (auto) 8.2 H Absolute Lymphs (auto) 2.4 Absolute Monos (auto) 0.6 Absolute Eos (auto) 0.1 Absolute Basos (auto) 0.1 Absolute Nucleated RBC 0 Nucleated RBC % 0.1 Sodium 136 L Potassium 4.6 Chloride 100 L Carbon Dioxide 24 Anion Gap 12 H BUN 19 Creatinine 0.80 Est GFR ( Amer) 95.8 Est GFR (Non-Af Amer) 74.5 BUN/Creatinine Ratio 23.8 H Glucose 335 H POC Glucose (mg/dL) Calcium 9.2 Total Bilirubin 0.40 AST 17 ALT 22 Alkaline Phosphatase 44 Total Protein 6.7 Albumin 3.9 Globulin 2.8 Albumin/Globulin Ratio 1.4 TSH 1.12 Urine Color Straw Urine Appearance Clear Urine pH 5.0 Ur Specific [place] 1.012 Urine Protein Negative Urine Ketones Trace A Urine Blood Negative Urine Nitrate Negative Urine Bilirubin Negative Urine Urobilinogen Negative Ur Leukocyte Esterase Trace A Urine WBC (Auto) Trace(0-5/hpf) Urine RBC (Auto) Trace(0-2/hpf) Ur Squamous Epith Cells Present A Urine Bacteria Absent Urine Glucose 3+(>=500 mg/dl) A Salicylates < 2.50 Urine Opiates Screen Acetaminophen < 15 Ur Barbiturates Screen Ur Phencyclidine Scrn Ur Amphetamines Screen U Benzodiazepines Scrn Urine Cocaine Screen U Cannabinoids Screen Serum Alcohol < 10
[2018-02-12] MEDS ORDERED: CMCS Glimepiride (NF) 2 MG TAB PO SCH (09:00)
[2018-02-12] MEDS ORDERED: Acetaminophen TAB* 325 MG PO ONE (12:24)
[2018-02-12] MEDS ORDERED: Nicotine Inhaler* 10 MG AMP INH PRN (13:57)
[2018-02-12] MEDS ORDERED: clonazePAM TAB(*) 1 MG PO ONE (14:23)
--- NOTE | 2018-02-12 15:40 | ED ---
Progress - Progress Note Progress Note: The patient is a sign out from Dr. Narvaez pending transfer disposition. The patient will be transferred to mental health unit. The patient is diagnosed with depressive disorder. - Consult/PCP Time Called: 00:01 Course/Dx - Course Course Of Treatment: This pt is a sign out from Dr. Narvaez at shift change pending labs, MHE and disposition. The patient is diagnosed with major depressive disorder. The patient will be signed out to Dr. Narvaez pending transfer disposition. - Diagnoses Provider Diagnoses: Major depressive disorder Discharge - Sign-Out/Discharge Documenting (check all that apply): Discharge/Admit/Transfer - Discharge Plan Condition: Stable Disposition: [facility] [place] - Billing Disposition and Condition Condition: STABLE Disposition: [facility] [place]
[2018-02-12] MEDS: Atorvastatin* 40 MG TAB PO SCH (17:03)
[2018-02-12] MEDS: PTO:Liraglutide (NF) 18 MG/3 ML SUBCUT SCH (17:30)
[2018-02-12] MEDS: Asenapine(NF) 10 MG TAB.SL SL SCH (20:49)
[2018-02-12] MEDS: Lisinopril TAB* 10 MG PO SCH (20:49)
[2018-02-12] MEDS: Diltiazem CD CAP* 120 MG PO SCH (20:49)
[2018-02-12] MEDS ORDERED: Nicotine Patch Removal NOTE PATCH OFF SCH (21:00)
[2018-02-12] MEDS: Aspirin TAB* 325 MG PO SCH (22:10)
[2018-02-13] MEDS ORDERED: Nicotine PATCH 14 MG/24 HR* PATCH TRANSDERM SCH (08:00)
[2018-02-13] MEDS ORDERED: Nicotine PATCH 7 MG/24 HR* PATCH TRANSDERM SCH (08:00)
[2018-02-13] MEDS ORDERED: Nicotine PATCH 21 MG/24 HR* PATCH TRANSDERM SCH (08:00)
[2018-02-13] MEDS: Omeprazole CAP* 20 MG PO SCH (08:58)
[2018-02-13] MEDS: BuPROPion XL* 300 MG TAB.XL PO SCH (09:00)
[2018-02-13] MEDS: GLIMEPIRIDE 4 MG PO SCH (09:00)
[2018-02-13] MEDS: Divalproex ER TAB(*) 500 MG PO SCH ×2 (09:00→21:33)
[2018-02-13] MEDS: Docusate CAP* 100 MG PO SCH ×2 (09:00→21:33)
[2018-02-13] MEDS: Famotidine TAB* 20 MG PO SCH (09:00)
[2018-02-13] MEDS: DESVENLAFAXINE 100 MG PO SCH (09:01)
[2018-02-13] MEDS: PTO:Liraglutide (NF) 18 MG/3 ML SUBCUT SCH (09:02)
[2018-02-13] MEDS: Carvedilol TAB* 6.25 MG PO SCH ×2 (09:39→21:32)
[2018-02-13] MEDS ORDERED: clonazePAM TAB(*) 0.5 MG PO ONE (11:06)
[2018-02-13] MEDS: Albuterol HFA INHALER* 8 gm MDI INH PRN ×2 (11:50→18:56)
[2018-02-13] MEDS: Atorvastatin* 40 MG TAB PO SCH (16:48)
[2018-02-13] MEDS: Liraglutide (NF) 18 MG/3 ML SUBCUT SCH (18:14)
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
[2018-02-13] MEDS: clonazePAM TAB(*) 1 MG PO PRN (21:32)
[2018-02-13] MEDS: Diltiazem CD CAP* 120 MG PO SCH (21:33)
[2018-02-13] MEDS: Asenapine(NF) 10 MG TAB.SL SL SCH (21:33)
[2018-02-13] MEDS: Lisinopril TAB* 10 MG PO SCH (21:33)
[2018-02-13] MEDS: Aspirin TAB* 325 MG PO SCH (21:33)
[2018-02-14] MEDS ORDERED: Butalb/Acetamin/Caff TAB* 1 TAB PO ONE (03:16)
[2018-02-14] MEDS: Albuterol HFA INHALER* 8 gm MDI INH PRN ×2 (07:54→18:35)
[2018-02-14] MEDS: Omeprazole CAP* 20 MG PO SCH (07:56)
[2018-02-14] MEDS: Docusate CAP* 100 MG PO SCH ×2 (08:25→21:22)
[2018-02-14] MEDS: BuPROPion XL* 300 MG TAB.XL PO SCH (08:25)
[2018-02-14] MEDS: Famotidine TAB* 20 MG PO SCH (08:25)
[2018-02-14] MEDS: Divalproex ER TAB(*) 500 MG PO SCH ×2 (08:26→21:21)
[2018-02-14] MEDS: GLIMEPIRIDE 4 MG PO SCH (08:27)
[2018-02-14] MEDS: Carvedilol TAB* 6.25 MG PO SCH ×2 (08:27→21:20)
[2018-02-14] MEDS: DESVENLAFAXINE 100 MG PO SCH (08:27)
[2018-02-14] MEDS: clonazePAM TAB(*) 1 MG PO PRN ×2 (09:05→21:57)
[2018-02-14] MEDS ORDERED: Ibuprofen TAB* 600 MG PO PRN (15:00)
--- NOTE | 2018-02-14 15:39 | PN ---
Subjective - Subjective Service Type: 46803 Hosp care 25 min moderate complexity Subjective: patient reports improved mood. quickly tearful when discussing interactions amongst family members. encouraged to journal/practice assertive communication to others, specifically her sister. patient reports pride in decrease in weight of 9 pounds. states she has been trying to ambulate moreso at home and utilizing stationary bike at least 5min daily per recommendation of PCP. encouraged to build on these efforts and validated for progress made. c/o pain in r side of mouth, btw gum and cheek. erythema noted, painful to touch. no pustules, patient afebrile. encouraged warm packs, magic mouth rinse and ibuprofen. Objective - Appearance Appearance: Obese Dysmorphic Features: No Hygiene: Normal Grooming: Well Kept - Behavior Psychomotor Activities: Normal Exhibits Abnormal Movement: No - Attitude and Relatedness Attitude and Relatedness: Cooperative Eye Contact: Good - Speech Quality: Unpressured Latencies: Normal Quantity: Appropriate - Mood Patient's Decription of Mood: "Good" - Affect Observed Affect: Good Affect Consistent with: Euthymia - Thought Process Patient's Thought Process: Coherent, Goal Directed, Circumstantial Thought Content: No Passive Wish, No Suicidal Planning, No Homicidal Ideation, No Paranoid Ideation - Sensorium Experiencing Hallucinations: No, Sensorium is Clear Type of Hallucinations: Visual: No, Auditory: No, Command: No - Level of Consciousness Level of Consciousness: Alert Orientation: Yes Intact, Yes Orientated to Time, Yes Orientated to Place, Yes Orientated to Person - Impulse Control Impulse Control: Tenuous - Insight and Judgement Insight and Judgement: Fair - Group Participation Particating in Group Activities: Yes - Medication Management Medication Management Adherence: Yes Assessment - Assessment Merits Inpatient Hospitalization: For Immediate Safety, For Stabilization, Consolidate Improvements Clinical Impression: 57yo white female with history of bipolar d/o and multiple medical comorbidities. presented to ED after overdose of gabapentin in suicide attempt. merits brief hospitalization for safety. Plan - Plan Treatment Plan: Name: DK GREEN Birthdate: 1960 [id number] continue acute intensive psychiatric treatment. encouraged decreased use of benzodiazepine and increased use of non- pharmalogical interventions for distress tolerance. continue q15min observation due to constant O2. may use comfort room/computer and attend staff pass. Continued Medication Management: Continue Outpt Medication Medications: Current Medications Albuterol (Ventolin Hfa Inhaler*) 2 puff INH Q6H PRN PRN Reason: SOB/WHEEZING Last Admin: 02/14/18 07:54 Dose: 2 puff Asenapine (Saphris(Nf)) 10 mg SL BEDTIME [facility] Last Admin: 02/13/18 21:33 Dose: 10 mg Aspirin (Aspirin Tab*) 325 mg PO BEDTIME [facility] Last Admin: 02/13/18 21:33 Dose: 325 mg Atorvastatin Calcium (Lipitor*) 40 mg PO 1700 [facility] Last Admin: 02/13/18 16:48 Dose: 40 mg Bupropion HCl (Bupropion Xl*) 300 mg PO DAILY [facility] Last Admin: 02/14/18 08:25 Dose: 300 mg Carvedilol (Coreg Tab*) 6.25 mg PO BID [facility] Last Admin: 02/14/18 08:27 Dose: 6.25 mg Clonazepam (Klonopin Tab(*)) 1 mg PO TID PRN PRN Reason: ANXIETY Last Admin: 02/14/18 09:05 Dose: 1 mg Diltiazem HCl (Cardizem Cd Cap*) 120 mg PO BEDTIME [facility] Last Admin: 02/13/18 21:33 Dose: 120 mg Divalproex Sodium (Depakote Er Tab(*)) 1,000 mg PO BID [facility] Last Admin: 02/14/18 08:26 Dose: 1,000 mg Docusate Sodium (Colace Cap*) 100 mg PO BID [facility] Last Admin: 02/14/18 08:25 Dose: 100 mg Famotidine (Pepcid Tab*) 40 mg PO DAILY [facility] Last Admin: 02/14/18 08:25 Dose: 40 mg Ibuprofen (Motrin Tab*) 600 mg PO Q6H PRN PRN Reason: PAIN Liraglutide (Victoza (Nf)) 1.8 mg SUBCUT 1800 [facility] Last Admin: 02/13/18 18:14 Dose: 1.8 mg Lisinopril (Prinivil Tab*) 20 mg PO BEDTIME [facility] Last Admin: 02/13/18 21:33 Dose: 20 mg Multi-Ingredient Mouthwash/Gargle (Magic M W2 Dontae/Maal/Nyst/Lido*) 5 ml SWISH SPIT QID [facility] Pto Nf Med* Desvenlafaxine Er 100 Mg Tab 1 dose PO DAILY [facility] Last Admin: 02/14/18 08:27 Dose: 1 dose Pto:Non Formulary Med* Glimepiride 4mg Tab 1 admin PO DAILY [facility] Last Admin: 02/14/18 08:27 Dose: 1 admin Omeprazole (Prilosec Cap*) 20 mg PO 0730 [facility] Last Admin: 02/14/18 07:56 Dose: 20 mg - Discharge Plan Discharge Plan: Outpatient Follow Up Outpatient Program: [facility]
[2018-02-14] MEDS: Atorvastatin* 40 MG TAB PO SCH (16:16)
[2018-02-14] MEDS: Magic M W2 Ben/Maal/Nyst/Lido* 240 ML MOUTHWASH (alt formulation) SWISH SPIT SCH ×3 (16:18→21:28)
[2018-02-14] MEDS: Liraglutide (NF) 18 MG/3 ML SUBCUT SCH (17:19)
[2018-02-14] MEDS: Diltiazem CD CAP* 120 MG PO SCH (21:20)
[2018-02-14] MEDS: Aspirin TAB* 325 MG PO SCH (21:20)
[2018-02-14] MEDS: Lisinopril TAB* 10 MG PO SCH (21:22)
[2018-02-14] MEDS: Asenapine(NF) 10 MG TAB.SL SL SCH (21:58)
--- NOTE | 2018-02-14 22:01 | ED ---
Progress - Consult/PCP Time Called: 00:01 Course/Dx - Course Course Of Treatment: ADMIT [facility]HU AFTER [facility] - Diagnoses Provider Diagnoses: Major depressive disorder, Mental health problem Discharge - Sign-Out/Discharge Documenting (check all that apply): Discharge/Admit/Transfer - Discharge Plan Condition: Stable Disposition: [facility] [place] - Billing Disposition and Condition Condition: STABLE Disposition: [facility] [place]
[2018-02-15 07:38] VITALS: BP 146/70
[2018-02-15] MEDS: Magic M W2 Ben/Maal/Nyst/Lido* 240 ML MOUTHWASH (alt formulation) SWISH SPIT SCH ×2 (07:40→12:04)
[2018-02-15] MEDS: Omeprazole CAP* 20 MG PO SCH (07:40)
[2018-02-15] MEDS: Divalproex ER TAB(*) 500 MG PO SCH (09:09)
[2018-02-15] MEDS: Docusate CAP* 100 MG PO SCH (09:10)
[2018-02-15] MEDS: Carvedilol TAB* 6.25 MG PO SCH (09:10)
[2018-02-15] MEDS: BuPROPion XL* 300 MG TAB.XL PO SCH (09:10)
[2018-02-15] MEDS: DESVENLAFAXINE 100 MG PO SCH (09:11)
[2018-02-15] MEDS: GLIMEPIRIDE 4 MG PO SCH (09:11)
[2018-02-15] MEDS: Famotidine TAB* 20 MG PO SCH (09:11)
[2018-02-15] MEDS: clonazePAM TAB(*) 1 MG PO PRN (12:44)
--- NOTE | 2018-02-19 11:15 | DS ---
CC: Dr. Zelaya; [facility], Dr. Gaitan.* DISCHARGE SUMMARY: DATE OF ADMISSION: 02/12/18 DATE OF DISCHARGE: 02/15/18 SUPERVISING PHYSICIAN: Narayan Coleman MD * (DICTATED BY JOHNNY REECE NP) DISCHARGE DIAGNOSES: Bipolar 1 disorder, most recent episode depressed and borderline personality disorder. CONDITION AT THE TIME OF DISCHARGE: Improved. The patient is euthymic with bright affect. She reports relief from sertraline about her frustration with her sister. She has readiness for discharge and would like to return to [facility] program next week. We discussed safety planning, including locking out medications and only having a few days supply at a time. She states her daughter is helpful in this regard. The patient denies SI, HI or . She reports motivation to continue and improve healthy habits to treat diabetes, obesity, and COPD as well. MENTAL STATUS EXAM: The patient is a 57-year-old white female who appears stated age. She is obese and wearing O2 tubing. She is adequately groomed and dressed in casual clothing. ADLs are completed. She is alert and oriented x3. Eye contact is good. Mood is euthymic. Affect is full range. Thought process is linear and goal directed. Thought content is significant for desire to be discharged from hospital. She denies SI or HI. She denies AV hallucinations. Her insight and judgment are good in that she is agreeable to continue with outpatient services. Her impulse control is tenuous due to multiple overdose attempts on medications. Fund of knowledge is adequate. Discharge instructions given to the patient. We will continue on the following medications: 1. Saphris 10 mg sublingual at bedtime. 2. Bupropion XL 300 mg q.a.m. 3. Clonazepam 1 mg p.o. b.i.d. p.r.n. anxiety, this is decreased from 3 times a day. 4. Ibuprofen 600 mg 4 times a day as needed for pain. 5. Magic mouthwash 5 mL 4 times a day as needed for mouth pain. The above prescriptions were electronically prescribed to [facility] per patient's request. We will continue on the following medications through primary care provider, Dr. Zelaya: 1. Albuterol nebulizers. 2. Albuterol inhaler. 3. Aspirin 325 mg. 4. Lipitor 40 mg. 5. Fioricet 1 tab q.6 hours p.r.n. headache. 6. Calcium carbonate/vitamin D. 7. Coreg 6.25 mg b.i.d. 8. Pristiq 100 mg daily. 9. Cardizem 120 mg daily at bedtime. 10. Depakote 1000 mg p.o. b.i.d. 11. Colace 100 mg p.o. b.i.d. 12. Gabapentin 100 mg t.i.d. and 300 mg at bedtime. 13. Glimepiride 4 mg daily. 14. Victoza 1.8 mg subcutaneous daily. 15. Lisinopril 20 mg at bedtime. 16. Protonix 40 mg q.a.m. 17. Ranitidine 300 mg at bedtime. Diet: 1800 calorie ADA diet. Activities: Ambulation with walker or cane as tolerated. 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 There are no studies pending at the time of discharge. Followup care: The patient will follow up with primary care provider, Dr. Nathalie gan after discharge; [facility], Dr. Gaitan, at 2 p.m.; and outpatient [facility] classes and her manager rn case through [facility]. substance abuse followup is not applicable. HOSPITAL COURSE: A. Reason for admission. The patient presented to the emergency department via EMS after an intentional overdose on Gabapentin. The patient has a history of bipolar disorder, PTSD and is well known to the unit through the multiple previous hospitalizations. She reports a history of multiple overdose attempts on various medications. She expressed a desire to learn other coping skills other than ingesting medication when she is upset. The patient was tearful and described repeatedly how upset she was that her sister had said hurtful things to her. While in the emergency department, the patient's blood work noted WBC of 11.3, RDW unchanged from previous visits. Lymphocyte percentage is 21.2, ANC 8.2, her hemoglobin A1c was 7.8. The patient was informed of this. Lipid profile: Triglycerides 435, cholesterol 196. TSH 1.12. Sodium 136, chloride 100, anion gap 12, BUN and creatinine ratio 23.8 and glucose high at 335. Toxicology: Negative urine drug screen. Valproic acid level 84, salicylates, acetaminophen and alcohol were all negative. B. Psychiatric treatment rendered. The patient was admitted to adult BSU on voluntary status. Code status was full. She was placed on 15-minute checks for her safety, this continued due to constant oxygen therapy. She was allowed use of comfort room, computer, and staff pass over the course of the treatment. The patient was circumstantial in regards to interactions with her sister. She was calm and in behavioral control. Minimal medication changes were done including decreasing use of clonazepam. The patient was informed of the risks of long-term use of benzodiazepines. We will change it from schedule to as needed and she utilize it less often, at the most twice a day. The patient agreed to a brief hospitalization as she had been engaging in [facility] since last admission. She reported this was helpful. 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 The patient reported intent to ambulate more often at home and increase healthy eating habits as well. We discussed the benefit this will have on mental health. The patient was agreeable. On day of discharge, the patient reported readiness for discharge and she was given discharge instructions by nursing staff. JOHNNY REECE NP [id number]/[facility] #: [id number] SAURAV
== END 2018-02-15 12:41 | disposition home or self-care (01) | DRG 885 ==
LOC: ED 17:09 → BSU 02-12 15:37
PROVIDERS: ADMIT Psychiatry & Neurology Psychiatry; ATTEND Psychiatry & Neurology Psychiatry
DX: F31.9 Bipolar disorder, unspecified (principal); I69.354 Hemiplegia and hemiparesis following cerebral infarction affecting left non-dominant side; Z68.42 Body mass index [BMI] 45.0-49.9, adult; E11.9 Type 2 diabetes mellitus without complications; I50.9 Heart failure, unspecified; E78.00 Pure hypercholesterolemia, unspecified; J44.9 Chronic obstructive pulmonary disease, unspecified; K21.9 Gastro-esophageal reflux disease without esophagitis; M19.90 Unspecified osteoarthritis, unspecified site; M41.9 Scoliosis, unspecified; F41.0 Panic disorder [episodic paroxysmal anxiety]; T42.6X2A Poisoning by other antiepileptic and sedative-hypnotic drugs, intentional self-harm, initial encounter; F43.10 Post-traumatic stress disorder, unspecified; G43.909 Migraine, unspecified, not intractable, without status migrainosus; G47.33 Obstructive sleep apnea (adult) (pediatric); E78.5 Hyperlipidemia, unspecified; E66.01 Morbid (severe) obesity due to excess calories; M51.27 Other intervertebral disc displacement, lumbosacral region; F41.1 Generalized anxiety disorder; I11.0 Hypertensive heart disease with heart failure; F63.9 Impulse disorder, unspecified; F60.3 Borderline personality disorder; Z82.49 Family history of ischemic heart disease and other diseases of the circulatory system; Z81.8 Family history of other mental and behavioral disorders; Z87.01 Personal history of pneumonia (recurrent); Z81.1 Family history of alcohol abuse and dependence; Z99.81 Dependence on supplemental oxygen; Z88.5 Allergy status to narcotic agent; Z88.8 Allergy status to other drugs, medicaments and biological substances; Z87.891 Personal history of nicotine dependence; Z79.82 Long term (current) use of aspirin; Z79.84 Long term (current) use of oral hypoglycemic drugs; Y92.9 Unspecified place or not applicable; Z91.410 Personal history of adult physical and sexual abuse; Z86.718 Personal history of other venous thrombosis and embolism; L53.8 Other specified erythematous conditions
CPT/HCPCS: 36415; 80053; 80061; 80164; 80307; 80320; 80329; 81003; 81015; 83036; 83721; 84443; 85025; 87086; 93005; 99222; 99232; 99238; 99284; A9270-GY; G0480; G8978-GP-CI; G8979-GP-CI; G8980-GP-CI; G8987-GO-CJ; G8988-GO-CJ; G8989-GO-CJ

== ENCOUNTER 2018-02-27 23:08 | Observation (INO) | payer MEDICAID, MEDICARE ==
[2018-02-28 00:26] LABS: ABS Basophils 0.1 10^3/ul (0-0.2); ABS Eosinophils 0.1 10^3/ul (0-0.6); ABS Lymphocytes 3.1 10^3/ul (1.0-4.8); ABS Monocytes 0.6 10^3/ul (0-0.8); ABS Neutrophils 4.6 10^3/ul (1.5-7.7); ABS Nucleated RBC 0 10^3/ul; Eosinophil % 1.2 % (0-6); Hematocrit 38 % (35-47); Lymphocyte % 36.2 % (25-47); Mean Corpuscular HGB Conc 35 g/dl (31-36); Mean Corpuscular Hemoglobin 29 pg (27-31); Mean Corpuscular Volume 85 fL (80-97); Mean Platelet Volume 8.3 um3 (7.4-10.4); Nucleated Red Blood Cells % 0.1; Platelet Count 173 10^3/ul (150-450); Red Blood Count 4.44 10^6/ul (4.0-5.4); Red Cell Distribution Width 17 % (10.5-15); White Blood Count 8.5 10^3/ul (3.5-10.8)
[2018-02-28 00:41] LABS: INR 0.99 (0.77-1.02)
[2018-02-28 00:45] LABS: EGFR Non-African American 81.5 (>60)
[2018-02-28] MEDS ORDERED: Aspirin TAB* 325 MG PO ONE (01:07)
[2018-02-28] MEDS ORDERED: Ondansetron INJ* 2 MG/ML VIAL IV PRN (02:47)
[2018-02-28] MEDS ORDERED: Dextrose 50% Syringe 50 ML* 25 GM/50 ML SYRINGE IV PUSH PRN (02:47)
[2018-02-28] MEDS ORDERED: Acetaminophen TAB* 325 MG PO PRN (02:47)
[2018-02-28] MEDS ORDERED: Albuterol 2.5 MG/3 ML NEB.SOL* (0.083%) INH PRN (02:51)
[2018-02-28] MEDS ORDERED: Magnesium Sulfate 2 GM IV* 2 GM/50 ML BAG IVPB ONE (02:57)
[2018-02-28] MEDS ORDERED: Clopidogrel TAB* 75 MG PO SCH (03:00)
--- NOTE | 2018-02-28 03:10 | ED ---
Sushil Michaels Gabriel scribed for João Stout MD on 02/28/18 at 0013 . Neurological HPI - HPI Summary HPI Summary: This patient is a 57 year old F BIBA to [facility] after her daughter contacted EMS with concern for a CVA that occurred I hour [employer]. Pt states she was in the shower when she began to feel dizzy and experience some trouble finding words. The patient rates the pain 8/10 in severity Patients daughter reports confusion , slurred speech, lethargy, and trouble forming thoughts. 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 - History of Current Complaint Chief Complaint: EDNeurologicalDeficit Stated Complaint: POSS STROKE Time Seen by Provider: 02/27/18 23:22 Hx Obtained From: Patient Hx Last Menstrual Period: not since 2009 Onset/Duration: Started hours ago - 1, Still Present Timing: Constant Onset Severity: Mild Current Severity: Mild Pain Intensity: 8 Pain Scale Used: 0-10 Numeric Syncope Context: Loss of Consciousness: No Associated Signs and Symptoms: Positive: Confusion, Impaired Speech. Negative: Loss of Consciousness - Additional Pertinent History Primary Care Physician: [id number] - Allergy/Home Medications Allergies/Adverse Reactions: Allergies Allergy/AdvReac Type Severity Reaction Status Date / Time nitrofurantoin Allergy Severe Rash Verified 02/13/18 11:00 meperidine Allergy Intermediate Headache Verified 02/13/18 11:00 clavulanic acid AdvReac Intermediate Nausea And Verified 02/13/18 11:00 Vomiting morphine AdvReac Intermediate Nausea Verified 02/13/18 11:00 PMH/Surg Hx/FS Hx/Imm Hx Endocrine/Hematology History: Reports: Hx Diabetes, Other Endocrine/ Hematological Disorders Denies: Hx Thyroid Disease, Hx Anemia, Hx Unexplained Bleeding Cardiovascular History: Reports: Hx Cardiac Arrest, Hx Congestive Heart Failure , Hx Hypercholesterolemia, Hx Hypertension Denies: Hx Aneurysm, Hx Angina, Hx Angioplasty, Hx Auto Implanted Cardiovert Defib, Hx Cardiomegaly, Hx Congenital Heart Disease, Hx Coronary Artery Disease , Hx Deep Vein Thrombosis, Hx Embolism, Hx Hypotension, Hx Myocardial Infarction , Hx Pacemaker/ICD, Hx Peripheral Vascular Disease, Hx Rheumatic Fever, Hx Syncope, Hx Valvular Heart Disease, Other Cardiovascular Problems/Disorders Respiratory History: Reports: Hx Asthma, Hx Chronic Bronchitis, Hx Chronic Obstructive Pulmonary Disease (COPD) - 3L O2 at home, Hx Pneumonia, Hx Sleep Apnea, Other Respiratory Problems/Disorders - PNEUMONIA IN 2001 Denies: Hx Cystic Fibrosis, Hx Lung Cancer, Hx Pleural Effusion, Hx Pulmonary Edema, Hx Pulmonary Embolism, Hx Seasonal Allergies GI History: Reports: Hx Gastroesophageal Reflux Disease, Other GI Disorders - "sphincter in stomach not working" Denies: Hx Cirrhosis, Hx Crohn's Disease, Hx Diverticulosis, Hx Gall Bladder Disease, Hx Gastrointestinal Bleed, Hx Hiatal Hernia, Hx Irritable Bowel, Hx Jaundice, Hx Obstructive Bowel, Hx Ileostomy, Hx Pyloric Stenosis, Hx Ulcer History: Reports: Hx Acute Renal Failure, Hx Renal Disease Denies: Hx Benign Prostatic Hyperplasia, Hx Chronic Renal Failure, Hx Dialysis, Hx Kidney Infection, Hx Kidney Stones, Other Problems/Disorders Musculoskeletal History: Reports: Hx Arthritis, Hx Back Problems, Hx Orthopedic Injury, Hx Scoliosis Denies: Hx Osteoporosis Sensory History: Reports: Hx Contacts or Glasses, Hx Vision Problem Denies: Hx Cataracts, Hx Eye Injury, Hx Hearing Aid, Hx Hearing Problem, Other Sensory Impairments Opthamlomology History: Reports: Hx Contacts or Glasses, Hx Vision Problem Denies: Hx Cataracts, Hx Eye Injury, Other Sensory Impairments Neurological History: Reports: Hx Headaches, Hx Migraine, Hx Nerve Disease, Hx Seizures, Hx Transient Ischemic Attacks (TIA), Other Neuro Impairments/ Disorders - Hx of 2 TIA. Hx moyamoya disease. 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 . endarterectomy-left internal carotid Hx Anesthesia Reactions: No - Immunization History Date of Tetanus Vaccine: unk Date of Influenza Vaccine: 06/2017 Infectious Disease History: No Infectious Disease History: Reports: Hx Clostridium Difficile Denies: Hx Hepatitis, Hx Human Immunodeficiency Virus (HIV), Hx of Known/ Suspected MRSA, Hx Shingles, Hx Tuberculosis, Hx Known/Suspected VRE, Hx Known/ Suspected VRSA, History Other Infectious Disease, Traveled Outside the [place] in Last 30 Days - Family History Known Family History: Positive: Cardiac Disease, Other - bipolar disorder; alcohol abuse - Social History Alcohol Use: None Alcohol Amount: once/year Hx Substance Use: No Substance Use Type: Reports: None Hx Tobacco Use: Yes Smoking Status (MU): Former Smoker Type: Cigarettes Amount Used/How Often: quit in 2004 Have You Smoked in the Last Year: No Review of Systems Positive: Fatigue - lethargy Neurological: Other - dizziness, trouble finding words, confusion, trouble forming thoughts Positive: Weakness - chronic , Slurred Speech All Other Systems Reviewed And Are Negative: Yes Physical Exam - Summary Physical Exam Summary: VITAL SIGNS: Reviewed. GENERAL: ~Patient is a well-developed, morbidly obese female, female who is lying comfortable in the stretcher. Patient is not in any acute respiratory distress. HEAD AND FACE: No signs of trauma. No ecchymosis, hematomas or skull depressions. No sinus tenderness. EYES: PERRLA, EOMI x 2, No injected conjunctiva, no nystagmus. EARS: Hearing grossly intact. Ear canals and tympanic membranes are within normal limits. MOUTH: Oropharynx within normal limits. NECK: Supple, trachea is midline, no adenopathy, no JVD, no carotid bruit, no c- spine tenderness, neck with full ROM. CHEST: Symmetric, no tenderness at palpation LUNGS: Clear to auscultation bilaterally. No wheezing or crackles. CVS: Regular rate and rhythm, S1 and S2 present, no murmurs or gallops appreciated. ABDOMEN: Soft, non-tender. No signs of distention. No rebound no guarding, and no masses palpated. Bowel sounds are normal. EXTREMITIES: FROM in all major joints, no edema, no cyanosis or clubbing. NEURO: Alert and oriented x 3. No acute neurological deficits. Speech is normal and follows commands. Left sided weakness that is old SKIN: Dry and warm GCS:15 Triage Information Reviewed: Yes Vital Signs On Initial Exam: Initial Vitals Temp Pulse Resp BP Pulse Ox 97.6 F 89 27 148/90 94 02/27/18 23:13 02/27/18 23:13 02/27/18 23:13 02/27/18 23:13 02/27/18 23:13 Vital Signs Reviewed: Yes Diagnostics - Vital Signs Vital Signs Temp Pulse Resp BP Pulse Ox 02/27/18 23:13 97.6 F 89 27 148/90 94 - Laboratory Result Diagrams: 02/28/18 00:20 02/28/18 00:19 Lab Statement: Any lab studies that have been ordered have been reviewed, and results considered in the medical decision making process. - CT CT head CT Interpretation Completed By: Radiologist - no evidence of acute pathology ED physician has reviewed this radiology report. - EKG 2328 Cardiac Rate: NL EKG Rhythm: Sinus Rhythm - at 87 BPM EKG Interpretation: LAD, no acute ischemic changes, nml intervals, Course/Dx - Course Assessment/Plan: This patient is a 57 year old F BIBA to [facility] after her daughter contacted EMS with concern for a CVA that occurred I hour [employer] RE[employer]. Pt states she was in the shower when she began to feel dizzy and experience some trouble finding words. The patient rates the pain 8/10 in severity Patients daughter reports confusion, slurred speech, lethargy, and trouble forming thoughts. 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 An EKG reveals LAD, no acute ischemic changes, nml intervals,. CXR reveals, cardiomegaly no acute infiltrate. CT Head reveals, per radiologist, no evidence of acute pathology. Test results with no significant abnormalities. In the ED course the patient was given ASA. We discussed patient care with Dr. Gregory and they accepted the patient for admission. Patient will be admission. The patient is agreeable with this plan. - Diagnoses Provider Diagnoses: TIA (transient ischemic attack) - Physician Notifications Discussed Care Of Patient With: Bay Gregory Time Discussed With Above Provider: 02:07 Instructed by Provider To: Admit As Inpatient Discharge - Sign-Out/Discharge Documenting (check all that apply): Discharge/Admit/Transfer - Discharge Plan Condition: Fair Disposition: ADMITTED TO [facility] Referrals: Ang Zelaya MD [Primary Care Provider] - The documentation as recorded by the Sushil españa Gabriel accurately reflects the service I personally performed and the decisions made by , João Stout MD.
[2018-02-28] MEDS: Heparin VIAL(*) 5000 UNITS/ML VIAL (FIVE THOUSAND) SUBCUT SCH ×3 (06:19→21:47)
[2018-02-28 06:54] LABS: ABS Basophils 0 10^3/ul (0-0.2); ABS Eosinophils 0.1 10^3/ul (0-0.6); ABS Lymphocytes 2.8 10^3/ul (1.0-4.8); ABS Monocytes 0.7 10^3/ul (0-0.8); ABS Neutrophils 4.2 10^3/ul (1.5-7.7); ABS Nucleated RBC 0 10^3/ul; Eosinophil % 1.5 % (0-6); Hematocrit 37 % (35-47); Hemoglobin 12.5 g/dl (12.0-16.0); Lymphocyte % 35.8 % (25-47); Mean Corpuscular HGB Conc 34 g/dl (31-36); Mean Corpuscular Hemoglobin 29 pg (27-31); Mean Corpuscular Volume 85 fL (80-97); Mean Platelet Volume 8.2 um3 (7.4-10.4); Nucleated Red Blood Cells % 0.1; Platelet Count 174 10^3/ul (150-450); Red Blood Count 4.31 10^6/ul (4.0-5.4); Red Cell Distribution Width 18 % (10.5-15); White Blood Count 7.8 10^3/ul (3.5-10.8)
--- NOTE | 2018-02-28 07:54 | RAD ---
Indication: Transient ischemic attack CT of the brain was performed without IV contrast. Comparison is made with previous exam dated September 27, 2017. Patient status post bilateral parietal craniotomies. Ventricular structures are midline. No midline shift is noted. The extra-axial spaces are unremarkable. There is no evidence of intracranial mass or hemorrhage. No other high or low density lesions are identified. IMPRESSION: No intracranial mass or hemorrhage is noted. Postoperative changes without significant change since September 27, 2017.
--- NOTE | 2018-02-28 07:55 | RAD ---
INDICATION: Weakness. COMPARISON: Comparison is made with a prior chest x-ray study from February 03, 2018. TECHNIQUE: A portable view of the chest was obtained. The patient is rotated toward the left side and the right arm projects over the right lung base limiting the study. FINDINGS: The heart appears mildly enlarged and unchanged. The lungs are grossly clear. No pleural effusion is seen. IMPRESSION: LIMITED STUDY, NO EVIDENCE FOR ACUTE FINDING.
[2018-02-28] MEDS: Gabapentin CAP(*) 100 MG PO SCH ×3 (08:46→21:47)
[2018-02-28] MEDS: Carvedilol TAB* 6.25 MG PO SCH ×2 (08:46→21:46)
[2018-02-28] MEDS: BuPROPion XL* 300 MG TAB.XL PO SCH (08:46)
[2018-02-28] MEDS: Docusate CAP* 100 MG PO SCH ×2 (08:47→21:47)
[2018-02-28] MEDS: Divalproex ER TAB(*) 500 MG PO SCH ×2 (08:47→21:46)
[2018-02-28] MEDS: Insulin LISPRO* 1 UNITS UNIT SUBCUT SCH ×3 (08:47→17:52)
[2018-02-28] MEDS: clonazePAM TAB(*) 1 MG PO PRN ×2 (08:51→21:46)
[2018-02-28] MEDS: DESVENLAFAXINE 100 MG PO SCH (09:25)
[2018-02-28 09:44] LABS: Urine Appearance Clear; Urine Blood Negative (Negative); Urine Color Yellow; Urine Ketones Trace (Negative); Urine Protein Negative (Negative); Urine Specific Gravity 1.025 (1.010-1.030); Urine Urobilinogen Negative (Negative)
[2018-02-28] MEDS: CMCS Pantoprazole TAB (NF) 40 MG TAB PO SCH (09:46)
[2018-02-28] MEDS ORDERED: Gadobenate* (CONTRAST) 529 MG/ML 10 ML SDV IV ONE (11:23)
--- NOTE | 2018-02-28 12:17 | HP ---
CC: Dr. Zelaya; Dr. Yap; Dr. Calderón * HISTORY AND PHYSICAL: DATE OF ADMISSION: 02/28/18. PRIMARY CARE PROVIDER: Dr. Zelaya. CONSULTING NEUROLOGIST: Dr. Yap. PRIMARY NEUROLOGIST: Dr. Calderón. ATTENDING PHYSICIAN WHILE IN THE HOSPITAL: Bay Gregory MD * (report dictated by Jorge A Waller NP) CHIEF COMPLAINT: 1. Right eye visual changes. 2. Worsening left-sided weakness. 3. Slowing of her speech. HISTORY OF PRESENT ILLNESS: Mrs. Sol is a 57-year-old female patient with a rather a complex medical history. She has a history of Moyamoya, COPD, history of CHF, PAD, CVA x2, diabetes, seizures. She carries a history of JOSIE, also hypertension, GERD, hyperlipidemia, borderline personality disorder, bipolar disorder, depression, anxiety, history of KS, and a history of obesity. She is coming in today stating that at 10:00 p.m. on the she started developing episode where she was having difficulty with vision, blurry vision she noted mostly on the right side and she was having increasing weakness in her left upper and lower extremities. She felt like she states she has longstanding weakness here, but it was much worse. She has also complained that her speech was slow, was not slurred. She states she was having a harder time coming up with the words that she wanted to say. She said the symptoms progressed. She was concerned because that she felt maybe this was another stroke or TIA and with her history she came into the hospital immediately. Her symptoms by the time she got here improving, they were coming back to her baseline, but because of her complexity we were asked to evaluate for admission. She denies any chest pain. No shortness of breath. She denies having any recent fevers or chills. She denies having any dysuria. She has stated that she has been incontinent a couple of times today. There has been no reports of flank pain or back pain. No abdominal pain or any vomiting or diarrhea, chest pain or shortness of breath. She was evaluated in the ED, because of her complexity of the focal neurological deficits that were stated on her chief complaint, we were asked to evaluate. She again denied having any facial drooping. PAST MEDICAL HISTORY: Significant for: 1. Moyamoya. 2. COPD. 3. CHF. 4. PAD. 5. CVA x3. 6. Diabetes. 7. Seizures. 8. JOSIE. 9. Hypertension. 10. GERD. 11. Hyperlipidemia. 12. Borderline personality disorder. 13. Anxiety. 14. Depression. 15. Bipolar disease. 16. Obesity. 17. History of old KS according to the patient. PAST SURGICAL HISTORY: She has had: 1. Intracranial bypass surgery x2. 2. Left carotid artery stenting. 3. x2. 4. Appendectomy. 5. Endometrial ablation. HOME MEDICATIONS: Include: 1. Saphris 10 mg sublingual at bedtime. 2. Albuterol/Ventolin two puffs inhale b.i.d. as needed. 3. Ventolin inhale two puffs inhale q.6 hours as needed. 4. Albuterol 2.5 mg inhale q.4 hours as needed. 5. Tylenol 325 mg at bedtime. 6. Depakote 1000 mg p.o. b.i.d. 7. Cardizem CD 120 mg p.o. at bedtime. 8. Pristiq 100 mg daily. 9. Coreg 6.25 mg p.o. b.i.d. 10. Oyster shell calcium tablet 500 mg p.o. twice a day with meals. 11. Fioricet one tablet q.6 hours as needed. 12. Bupropion 300 mg daily. 13. Lipitor 40 mg at bedtime. 14. Aspirin 325 mg at bedtime. 15. Lisinopril 20 mg at bedtime. 16. Victoza 1.8 mg subcu 1800. 17. Motrin 600 mg 4 times a day as needed. 18. Glimepiride 4 mg p.o. daily. 19. Neurontin 300 mg at bedtime. 20. Neurontin 100 mg p.o. t.i.d. 21. Colace 100 mg p.o. b.i.d. 22. Klonopin 1 mg b.i.d. as needed. 23. Zantac 300 mg p.o. at bedtime. 24. Protonix 40 mg daily. 25. Magic Mouthwash 5 cc p.o. swish and spit 4 times a day as needed. ALLERGIES TO MEDICATIONS: Include NITROFURANTOIN, DEMEROL, AUGMENTIN, and MORPHINE. FAMILY HISTORY: Mother had a history of CVA and KS. Father had a history of brain cancer and KS. SOCIAL HISTORY: She is a former smoker. She quit in 2004. She does not drink alcohol. She denied recreational drugs. Her surrogate decision maker is her daughter, Raad. REVIEW OF SYSTEMS: There is no documented fevers. She denies having any significant weight change. There is no double vision. She denies having any ear discharge. There is no rhinorrhea. She denies having any sore throat. There is no thyroid enlargement. She denies having any chest pain. There is no orthopnea. There is no nocturnal dyspnea. She denies having any abdominal pain. No nausea, no vomiting. No dysuria, no frequency. There was no seizure , no loss of consciousness. No pruritus, no skin ulcerations. Review of 14 systems completed, all other were negative. PHYSICAL EXAMINATION GENERAL: At this time, Mrs. Sol is a 57-year-old female patient. She appears to be older than stated age. She is chronically ill-appearing, morbidly obese patient sitting in the ED stretcher. She does not appear to be in any acute distress. VITAL SIGNS: Blood pressure 138/62, pulse 87, respirations 18, O2 sat 94% on two liters, temperature 97.6. HEENT: Head is atraumatic and normocephalic. Eyes: EOMs are intact. Sclerae were anicteric and not pale. Throat: Oral mucosa appears to be moist. No oropharyngeal erythema. NECK: Supple. LUNGS: Clear to auscultation bilaterally. There were no wheezes, rales, or rhonchi. HEART: Sounds S1, S2. She had a regular rate and rhythm. No murmurs, rubs, or gallops. ABDOMEN: Soft, flat, nontender. Bowel sounds were present. EXTREMITIES: Pulses were 2+ throughout. She had no peripheral edema. NEUROLOGICAL: She is awake, she is alert. To me her speech is clear. It is slowed, but it is appropriate. She is oriented x3. She had no facial drooping. Cranial nerves II through XII were intact. Peripheral franco were intact. She does state that on her visual acuity on the right eye there is some blurriness subjectively. She does have weakness to the left lower extremity and left upper extremity that is about 2/5 strength. She states that this is near her baseline. She had 5/5 strength in the right side. Finger-to- nose are intact bilaterally. Ugvi-uu-locs was intact. She had difficulty doing it left or right, but again she does have long-term weakness on this side. No other gross focal deficits. SKIN: Intact. LABORATORY DATA/DIAGNOSTIC STUDIES: Today revealing a WBC of 8.5, RBC of 4.44 , hemoglobin of 13.0, hematocrit of 38, platelet count of 133, INR was 0.99 and PTT of 31.6. Her sodium was 141, potassium of 4.1, chloride 105, bicarb 27, BUN 16, creatinine 0.74, glucose 205, calcium 9.2, mag 1.8, total bili 0.4, AST 12, ALT 16, alk phos 43, CK of 47, troponin 0, albumin of 3.9. Urine is pending. She did have a chest x-ray obtained today and an EKG. The EKG today is showing a normal sinus rhythm with a left anterior fascicular block, rate of 87, no ST elevation or T-wave inversion. She had an EKG done two weeks ago, it does appear to be similar. She had a brain CT obtained today, impression: No acute intracranial pathology. The chest x-ray today is a very difficult film due to her body habitus, but there is no obvious infiltrates at this point. She did have a CTA head and neck done on the 06/23/17, impression: Constellation of findings consistent with Moyamoya disease and vasoocclusive disease at the [place], M1 and A1 cerebral artery segments without significant change status post bilateral external carotid artery to middle cerebral artery bypass, stable exam compared to the exam one year prior. Old medical records reviewed. ASSESSMENT AND PLAN: Mrs. Sol is a 57-year-old female patient with multiple medical problems coming into our ER today with complaints of difficulty with speech and weakness to the left side. It is worse than her baseline. We are asked to evaluate for admission. She will be admitted under observation status for: 1. Transient ischemic attack. Her symptoms are improving. At this point, though I did touch-based with Dr. Yap, the plan would be increase her antiplatelet regimen of the Plavix. He did recommend and I will get an MRI of the head and neck and MRI of the brain. I have ordered an echo with a bubble study. This may be difficult for her to get due to her body habitus. I will place her on neuro checks. Continue the statin therapy. Check lips and A1c in the morning and continue with neuro checks frequently and we will place her on telemetry to monitor for any atrial fibrillation that she may have but there has been no history of this. 2. History of Moyamoya. She is to continue to follow up with her outpatient neurologist, Dr. Calderón and she is supposed to get, according to the patient, conventional angiogram done at [facility], which could be set up outpatient. 3. Chronic obstructive pulmonary disease. I have ordered p.r.n., nebulizers for her. 4. History of congestive heart failure. She does not appear to be in failure. At this point, we will diurese as needed. 5. Peripheral arterial disease. She is going to be on Plavix and statin now. 6. History of cerebrovascular accident x2. We can go ahead and put her on Plavix and statin therapy. 7. Diabetes. I have ordered Lispro sliding scale. 8. History of seizures. Continue the Depakote. In addition to this, continue her on seizure precautions. 9. Obstructive sleep apnea. I did order a CPAP for her. 10. Hypertension. I am going to continue her meds as prescribed. 11. Gastroesophageal reflux disease. Continue PPI therapy and H2 elvira. 12. Hyperlipidemia. We will check lipids in the morning. It appears to be stable. Continue statin therapy. 13. History of anxiety and depression. Continue with supportive care. 14. History of bipolar disorder. Continue meds as prescribed. She appears to be stable. 15. History of borderline personality disorder. Continue with supportive care. 16. Previous history of myocardial infarction. Continue her on her statin and beta-elvira therapy and Plavix therapy. 15. DVT prophylaxis. I will place her on heparin subcu as she has high risk. 16. Code status. Se is full code. 17. Fluids, electrolytes, and nutrition. I have ordered a consistent carb diet. TIME SPENT: Time spent on the admission was 60 minutes; greater than half the time was spent [id number] with the patient obtaining my history and physical, other half time was spent going over the plan of care with the patient and implementing plan of care. I did discuss the plan of care with my attending physician, Dr. Gregory, he is in agreement. JORGE A WALLER, ELECTRONIC SALES AND SERVICE TECHNICIAN [id number]/[facility] #: [id number] [facility] AREA HOSPITALIvonne
--- NOTE | 2018-02-28 12:28 | RAD ---
Indication: Transient ischemic attack, history of moyamoya disease. Image sequences: Sagittal and axial T1, axial diffusion, T2, FLAIR, susceptibility weighted images of the brain were obtained. Ventricular structures are midline. No midline shift is noted. There is central and cortical atrophy noted. There is periventricular and subcortical white matter changes on the FLAIR images. This is consistent with chronic ischemic White matter change. No restriction of diffusion is noted. The postcontrast images demonstrates no evidence of abnormal enhancement. Paranasal sinuses and orbits are unremarkable. IMPRESSION: Central and cortical atrophy with chronic ischemic White matter change. No restriction of diffusion is noted. No abnormally enhancing lesions are identified.
--- NOTE | 2018-02-28 12:31 | RAD ---
Indication: Patient is status post left carotid endarterectomy. MRA of the neck was performed utilizing 3-D [id number]-[id number]-rbydln technique. 20 mL of ProHance was injected. The origins of the great vessels are unremarkable. Vertebral arteries are patent bilaterally. The right internal carotid artery is unremarkable. Small caliber of the right internal carotid artery is noted. Signal loss is noted in the proximal left internal carotid artery. This may be due to carotid artery stenting. Therefore this limits evaluation of the left internal carotid artery. IMPRESSION: Both vertebral arteries appear patent. The internal carotid arteries are small in caliber however signal loss of the proximal left internal carotid artery is noted which may be due to postoperative change. This limits examination.
--- NOTE | 2018-02-28 12:35 | RAD ---
Indication: Transient ischemic attack. MRA of the head was performed utilizing 3-D [id number]-hypppk technique. Multiple maximum intensity projection images were obtained. Dominant right vertebral artery is noted. Basilar artery is unremarkable. Posterior cerebral arteries are unremarkable. There is very little flow detected in the middle cerebral arteries bilaterally. Anterior cerebral arteries are also not well demonstrated. There is filling of the peripheral branches of the middle cerebral artery circulation. No prior study is available for comparison. 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 Persistent occlusion of the anterior cerebral arteries laterally. There are likely small collaterals noted.
[2018-02-28] MEDS ORDERED: Atorvastatin* 40 MG TAB PO SCH (18:00)
--- NOTE | 2018-02-28 18:51 | PN ---
Hospitalist Progress Note Date of Service: 02/28/18 Pt seen and examined. Meds and labs reviewed. ROS: Denied KHANNA/dizziness, F/C, N/V, CP, SOB, increased cough, sputum production , abd pain, diarrhea, constipation, dysuria, myalgias, arthralgias, throat pain , and new skin lesions. The rest of the 14 point ROS are unremarkable. PHYSICAL EXAM: GEN APPEARANCE: Awake, not in acute distress HEENT: NC/AT, PERRLA, moist oral mucosa, (-) throat erythema NECK: Soft, supple, (-) cervical LAD, (-)JVD HEART: S1S2 WNL, RRR, No MRG CHEST: CTA, BL, GAE, No W/R/R ABD: Soft, ND/NT, NABS 4x Q EXT: No C/C/E SKIN: Warm to touch PSYCH: No active psychosis, hallucinations, depression, SI/HI ASSESSMENT AND PLAN: #TIA: -Continue ASA, Plavix, and statins -Will continue to monitor O/N -No need for repeat echo per neuro #Bipolar d/o: -Continue antidepressants and antipsychotics ordered #CAD: -As above -Continue Carvedilol #DVTp: -Continue Heparin #Dispo: -For PT eval
[2018-02-28] MEDS ORDERED: Diltiazem CD CAP* 120 MG PO SCH (21:00)
[2018-02-28] MEDS ORDERED: Lisinopril TAB* 10 MG PO SCH (21:00)
[2018-02-28] MEDS ORDERED: Gabapentin CAP(*) 300 MG PO SCH (21:00)
[2018-02-28] MEDS ORDERED: ASENAPINE 10 MG SL SCH (21:00)
[2018-02-28] MEDS ORDERED: Famotidine TAB* 20 MG PO SCH (21:00)
--- NOTE | 2018-02-28 21:36 | CONS ---
NEUROLOGY CONSULTATION REPORT: DATE OF CONSULT: 02/28/18 DATE OF DICTATION: 02/28/18 CONSULTING PROVIDER: Jorge A Waller NP REASON FOR CONSULT: Transient speech abnormality and worsening left-sided weakness with blurry of the right visual field. CHIEF COMPLAINT: Transient visual field loss on the right and left-sided weakness. HISTORY OF PRESENT ILLNESS: Ms. Sol is a 57-year-old female with complicated medical history consistent of Moyamoya disease where she underwent bilateral intracranial bypass at [facility] by Dr. Sarah Crowe in 2016. The first bypass occurred in October of 2016 and the second bypass occurred in December of 2016 where she developed periprocedural stroke causing left-sided weakness and aphasia. She also has history of recurrent TIAs prior to the procedure. She is compliant to aspirin 325 mg daily. She follows up by Dr. Calderón (neurologist). The patient also has history of hypertension; dyslipidemia; obesity; post stroke seizures, on Depakote; psychiatric history such as borderline personality disorder, bipolar, depression, and anxiety. She lives with her daughter. The patient presented to [facility] last night after she had a sudden onset of her speech difficulty, blurry vision in the right eye and worsening of left-sided weakness. This lasted for 30 minutes. She was standing and showering during this episode. The shower was not extremely hot, but not cold. She denied any convulsions or falls. She felt extremely shaky as if she was having a seizure, but she never lost awareness. She had tremors of both upper extremities. She did endorse urinary incontinence. She has not missed any of her anti-seizure medications. By the time the patient got to the ER, her symptoms resolved. However, interestingly, the patient's blood pressure upon presentation was low. She had systolic of 94 at one point at 11 p.m. yesterday. Currently, the patient is asymptomatic and feels like she is back to her baseline. She denied any new focal weakness or paresthesias. She denied any chest patient. She denied any shortness of breath. PAST MEDICAL HISTORY: Significant for Moyamoya disease, status post bilateral intracranial bypass; COPD; CHF; peripheral vascular disease; recurrent TIAs; diabetes mellitus, type 2; post stroke seizures; obstructive sleep apnea; hypertension; dyslipidemia; borderline personality disorder; anxiety; depression ; bipolar; questionable old myocardial infarction. PAST SURGICAL HISTORY: Intracranial bypass surgery, left carotid endarterectomy and 2 stents placed in the left carotids, C-sections, appendectomy, endometrial ablation. HOME MEDICATIONS: 1. Saphris. 2. Albuterol. 3. Ventolin. 4. Tylenol. 5. Depakote 1000 mg by mouth twice daily. 6. Cardizem. 7. Pristiq. 8. Coreg. 9. Fioricet. 10. Bupropion. 11. Lipitor. 12. Aspirin 325 mg daily. 13. Lisinopril. 14. Victoza. 15. Motrin. 16. Glimepiride. 17. Neurontin 300 mg at bedtime and 100 mg 3 times daily. 18. Colace. 19. Klonopin 1 mg as needed. 20. Zantac. 21. Protonix. ALLERGIES: NITROFURANTOIN, DEMEROL, AUGMENTIN, and MORPHINE. FAMILY HISTORY: Mother had a stroke at 60 years of age. Her father had a history of brain cancer. SOCIAL HISTORY: The patient is a former smoker, 1-1/2 packs per day for 26 years. She quit in 2004. She denied any alcohol use. She denied any recreational drug use. Her surrogate decision maker is her daughter. REVIEW OF SYSTEMS: As per HPI, a 14-point review of systems was obtained and otherwise negative except for what was mentioned in the HPI. PHYSICAL EXAM: Vitals: Temperature of 98 degrees, pulse of 84, respiratory rate of 16, oxygen saturation 94, blood pressure 122/69. General: Well- nourished, well- developed, obese female in no acute distress. Head: Normocephalic, atraumatic without any obvious abnormality. Eyes: Conjunctivae/ corneas clear. Neck: Supple and symmetric. No carotid bruit. Lungs are clear to auscultation bilaterally, non- labored breathing. Cardiovascular: Regular rhythm. S1, S2 is normal with normal radial pulses that are palpable. Extremities: Normal range of motion with no cyanosis. Skin: No skin lesions or lacerations. Psych: Affect is broad and normal mood. She is easy to establish rapport. Neurological Examination: Awake, alert, and oriented to person, place, time, and general circumstances. She does have mild dysarthria, but her language including expression, naming, repetition, and comprehension were assessed and found to be normal. Cranial Nerves: Normal confrontation testing. Pupils are midrange and reactive to light. Normal consensual response. Extraocular muscles are intact. Sensation is intact on forehead, cheeks, and jaw region bilaterally. Normal facial symmetry with no facial droop. She is able to hear throughout the history process. The shoulder shrug is symmetric bilaterally. Tongue is symmetric and midline. Motor: Right/leg, no abnormal movements or pronator drift. Normal bulk, but increase in tone in the left upper extremity. No fasciculation. Shoulder abduction 5/4. Elbow flexion 5/4, extension 5/4. Wrist flexion 5/4, 5/4. Finger flexion 5/4, extension 5/4, abduction 5/4. Hip flexion 5/4-, abduction 5/4. Knee flexion 5/ 5, knee extension 5/5. Ankle dorsiflexion 5/4. Reflexes: Right/left, brachioradialis biceps, triceps, patella, and ankles are 1+ throughout except for the ankles where she has 0 bilaterally. Flexor plantar response bilaterally. Sensation is intact to light touch throughout. Coordination: Normal finger-to- nose and rapid alternating movement. Gait and station were not assessed. The patient is morbidly obese and is walker dependent. DIAGNOSTIC STUDIES/LAB DATA: Labs, imaging, and other diagnostic testing: No abnormal laboratory values except for hemoglobin A1c of 7.5, LDL of 64. Urinalysis was checked and there is no evidence of pyuria. Valproic acid level 63. Brain CT head without contrast completed on 02/27/18 showed no intracranial mass or hemorrhage noted. There are postoperative changes without significant change since September 2017. Brain MRI completed on 02/28/18 showed central and cortical atrophy with no abnormal enhanced lesions identified and no restricted diffusion is noted. There are areas of old cortical infarcts involving the left frontal lobe. MRA of the head and neck showed persistent occlusion of the middle cerebral arteries bilaterally with persistent occlusion of anterior cerebral arteries laterally. Collaterals are noted. MRA of the neck without contrast showed both vertebral arteries appear patent. The internal carotid arteries are small in caliber; however, signal loss of the proximal left internal carotid artery is noted which may be postoperative changes; this limits examination. Electrocardiogram showed sinus rhythm with no evidence of atrioventricular arrhythmia. She recently had a transthoracic echo done in November of 2017. That was a limited study, but she did have an ejection fraction of 55% to 60%. ASSESSMENT AND PLAN: This is 57-year-old female with complex medical history of Moyamoya disease, status post intracranial bypass; recurrent transient ischemic attacks; seizure disorder, who presented with a transient episode of word-finding difficulty and worsening left hemiparesis. Symptoms have resolved. 1. Transient ischemic attack involving the right internal carotid artery to the right middle cerebral artery of vascular distribution. The patient had symptoms when she was showering. I wonder if she had a possible vasovagal or orthostatic near syncope with a drop in her blood pressure causing cerebral hypoperfusion in the setting of her intracranial vascular disease. She did have a documented blood pressure that was on the lower side with systolic in the 90s on admission. It seems like her symptoms resolved after she lied flat and probably after IV hydration. There has been no cardiac arrhythmia. NIH Stroke Scale at this time is 0. The patient does have mild residual deficits on the left upper and lower extremities. 2. Moyamoya disease - continue supportive care. The patient was taking aspirin regularly 325. She was on dual-antiplatelet therapy in the past, but was discontinued due to concerns for an increased risk of gastrointestinal bleed. 3. Diabetes mellitus. 4. Hypertension. 5. Obstructive sleep apnea. 6. Morbidly obese. 7. Seizure disorder. RECOMMENDATION: I recommend changing aspirin 325 mg to Plavix 75 mg daily. No need to increase statin therapy at this time. We discussed primary stroke prevention. In regards to her seizure disorder, I recommend discussing changing Depakote to possible zonisamide or Topamax, which may help prevent any increase in weight gain and may help with weight loss. This can be done as outpatient as she follows up with Dr. Calderón. No need for a transthoracic echo as the quality will be poor due to the patient's body habitus. If she continues to have recurrent symptoms, I would recommend obtaining a transesophageal echo as an outpatient and possibly consider implanting a loop recorder to rule out any cardiac arrhythmias. I recommend reviewing her antihypertensive medications and changing the medications accordingly. She should follow-up with Dr. Calderón within the next 6-8 weeks. Neurology will sign off. Please contact us for any questions or concerns. [id number]/[facility] #: [id number] SAURAV
[2018-02-28] MEDS: Nystatin TOP POWDER* 15 GM BTL TOPICAL SCH (23:47)
[2018-03-01 06:05] LABS: ABS Basophils 0 10^3/ul (0-0.2); ABS Eosinophils 0.1 10^3/ul (0-0.6); ABS Lymphocytes 2.6 10^3/ul (1.0-4.8); ABS Monocytes 0.6 10^3/ul (0-0.8); ABS Neutrophils 3.7 10^3/ul (1.5-7.7); ABS Nucleated RBC 0 10^3/ul; Eosinophil % 1.4 % (0-6); Hematocrit 37 % (35-47); Hemoglobin 12.3 g/dl (12.0-16.0); Lymphocyte % 36.4 % (25-47); Mean Corpuscular HGB Conc 34 g/dl (31-36); Mean Corpuscular Hemoglobin 29 pg (27-31); Mean Corpuscular Volume 86 fL (80-97); Mean Platelet Volume 8.5 um3 (7.4-10.4); Nucleated Red Blood Cells % 0.3; Platelet Count 175 10^3/ul (150-450); Red Blood Count 4.25 10^6/ul (4.0-5.4); Red Cell Distribution Width 18 % (10.5-15)
[2018-03-01] MEDS: Heparin VIAL(*) 5000 UNITS/ML VIAL (FIVE THOUSAND) SUBCUT SCH (06:19)
[2018-03-01 06:26] LABS: EGFR Non-African American 81.5 (>60)
[2018-03-01] MEDS: DESVENLAFAXINE 100 MG PO SCH (08:50)
[2018-03-01] MEDS: Insulin LISPRO* 1 UNITS UNIT SUBCUT SCH (08:59)
[2018-03-01] MEDS: Nystatin TOP POWDER* 15 GM BTL TOPICAL SCH (09:00)
[2018-03-01] MEDS: Divalproex ER TAB(*) 500 MG PO SCH (09:00)
[2018-03-01] MEDS ORDERED: Clopidogrel TAB* 75 MG PO SCH (09:00)
[2018-03-01] MEDS: Carvedilol TAB* 6.25 MG PO SCH (09:01)
[2018-03-01] MEDS: Gabapentin CAP(*) 100 MG PO SCH (09:01)
[2018-03-01] MEDS: CMCS Pantoprazole TAB (NF) 40 MG TAB PO SCH (09:01)
[2018-03-01] MEDS: BuPROPion XL* 300 MG TAB.XL PO SCH (09:01)
[2018-03-01] MEDS: Docusate CAP* 100 MG PO SCH (09:01)
[2018-03-01 11:25] VITALS: BP 152/66
--- NOTE | 2018-03-02 06:21 | PN ---
CC: Dr. Sarah Crowe at [facility]. INPATIENT PROGRESS NOTE: DATE OF SERVICE: 03/01/18. PROVIDER: Willis Patton MD Neurology is following for evaluation of TIA. SUBJECTIVE: The patient is resting comfortably. She is in no acute distress. She has not had any transient speech abnormality or any worsening of left side weakness. Actually the weakness got better since admission. She denied any blurry vision in the right eye. The patient blood pressure has been stable, systolic blood pressure around the 120s. She is tolerating Plavix without any side effects. She is completely off aspirin. REVIEW OF SYSTEMS: She denied any chest pain, shortness of breath or palpitations. She denied any focal weakness or paresthesias. She denied any headache or visual disturbances. MEDICATIONS: 1. Acetaminophen. 2. Albuterol. 3. Saphris. 4. Atorvastatin. 5. Bupropion. 6. Coreg. 7. Klonopin. 8. Plavix. 9. Prestiq. 10. Cardizem. 11. Depakote. 12. Colace. 13. Pepcid. 14. Neurontin. 15. Heparin. 16. Humalog. 17. Prinivil. 18. Nystatin. 19. Zofran. 20. Protonix. PHYSICAL EXAMINATION: Vitals: Temperature 97.8, pulse rate of 78, respiratory rate of 24, oxygen saturation of 96%, blood pressure 124/56. General: Well- nourished, well-developed obese female in no acute distress. Head is atraumatic , normocephalic. Eyes: Conjunctivae/corneas are clear. Neck: Supple and symmetrical. Lungs are clear to auscultation bilaterally. Cardiovascular: Regular rhythm. Normal S1, S2. There is no evidence of arrhythmias overnight. Extremities: Normal range of motion with no cyanosis. Psych: Affect is broad and normal mood. Neurological Examination: Mental status awake and alert, oriented to person, place, time and general circumstances. Speech and language including expression, naming, repetition, comprehension were assessed and found to be normal. Pupils are equal, round and reactive to light. Extraocular muscles are intact. No facial asymmetry. Tongue is symmetric and midline, no atrophy. Motor Examination: No abnormal movements. Long track pyramidal weakness on the left upper and lower extremity that is chronic and old. Reflexes are 1+ on the right, 2+ on the left with 0 at the ankles bilaterally. Flexor plantar response. Sensation is intact to light touch throughout. Coordination: Normal [id number] and rapid alternating movement with mild dysmetria on the left. Gait and Station: Wide-based gait, walker dependent. ASSESSMENT AND RECOMMENDATIONS: 1. This is a pleasant 57-year-old female who has history of Moyamoya and status post intracranial bypass x 2 in 2017 who presented to the emergency room with symptoms of worsening left side weakness, right eye blurry vision, and slurred speech. These lasted for 30 minutes. This occurred while she was showering. We were concerned of possible hypotension induced cerebral hypoperfusion in the setting of her intracranial vascular disease that is causing the symptoms. Her systolic blood pressure was on the lower side on admission 90 mmHg. Symptoms improved after she laid flat and with IV hydration. We decided to switch aspirin to Plavix 75 mg daily. She used to take Plavix in the past, but due to the concern of DAPT causing increased risk of GI bleed, Plavix was discontinued. She was encouraged to exercise regularly. She should discuss with her neurologist in switching Depakote to a different antiseizure agents (e.g., lamotrigine). Primary stroke prevention was discussed with the patient. No need for transesophageal echo since it was done in November. If she continues to have recurrence of symptoms, a ALEX[place]RIA will be recommended as well as implanting loop-recorder to check for arrhythmias. She should followup with Dr. Calderón within the next 8 weeks. She is also following with Dr. Crowe at [place]. Neurology will sign off. The patient is getting discharged today. 2. Moyamoya disease. 3. Diabetes mellitus, type 2. 4. Hypertension. 5. Seizure disorder. 6. Obstructive sleep apnea. 7. Morbidly obese. [id number]/[facility] #: [id number] [facility]
--- NOTE | 2018-03-02 18:36 | DS ---
CC: Dr. Gregory; Dr. João Stout; Dr. Rigoberto Yap; Dr. Pepper Benitez; Dr. Carissa Zelaya DISCHARGE SUMMARY: DATE OF ADMISSION: DATE OF DISCHARGE: 03/01/18 DISCHARGE DIAGNOSES: As follows: 1. Transient ischemic attack. 2. History of bipolar disorder. 3. Coronary artery disease. HISTORY OF PRESENT ILLNESS/HOSPITAL COURSE: The patient is a 57-year-old female with history of Moyamoya disease, COPD, history of CHF, PAD and CVA x2, who presented on 02/28/18 with a chief complaint of right eye visual changes, worsening left-sided weakness and slowing of her speech. On presentation, she had a brain CT, which revealed no acute issues. A brain MRI, head MRA, and neck MRA were also done, which showed central and cortical atrophy with chronic ischemic white matter change with no acute abnormalities. Head MRA shows persistent occlusion of middle cerebral arteries bilaterally, persistent occlusion of anterior cerebral arteries laterally, and likely small collaterals were noted. The neck MRA reveals both vertebral arteries are patent, internal carotids are small in caliber and loss of proximal left internal carotid arteries noted may be due to postoperative change. She has been referred to Dr. Yap of Neurology given above results of MRI, who recommended to change her aspirin from 325 to Plavix 75 mg daily and to increase statin therapy and to consider changing her Depakote to zonisamide or Topamax in the outpatient. He also mentioned that there is no need for transthoracic echo given the patient's body habitus and is obese and likely will not reveal anything about any concerns for PFO and likely the cerebral narrowing as detected by the MRIs due to her Moyamoya disease, which makes her more prone to TIA and/or CVA. If she continues to have recurrent symptoms, Dr. Yap mentions that a transesophageal echo might be done as an outpatient to consider implanting a loop recorder to rule out any cardiac arrhythmias as well as further study any possibility of PFO. The above has been discussed with patient by both Dr. Yap and I prior to her discharge and she agrees with the above assessment and plan. She was also advised to follow up with her PCP within 3 days post discharge and if there is any urgent concern or need for her that her PCP cannot address before her next appointment to call the hospital and request for a transition to care connect program, so we can address any issues before they get worse. She has also been advised to take her medications as prescribed. PHYSICAL EXAMINATION: Reveals the most recent vital signs of records with blood pressure of 152/66, saturation of 99% on room air, 16 per minute respiratory rate, heart rate of 89 beats per minute, temperature of 98.1 degrees Fahrenheit. General Appearance: The patient is awake, alert and oriented x3, not in acute distress. HEENT: Normocephalic, atraumatic. PERRLA. Extraocular muscles intact. Negative for icterus. Moist oral mucosa. Negative for throat erythema. Neck is soft, supple with no cervical lymphadenopathy. No JVD. Heart: S1, S2 within normal limits. Regular rate and rhythm. No murmurs, rubs, or gallops. Chest: Clear to auscultation bilaterally. Good air entry. No wheezes, rales, or rhonchi. Abdomen is soft, nondistended, nontender. Normoactive bowel sounds x4. Extremities: No cyanosis, clubbing, or edema. Psychiatric: No active psychosis, depression, suicidal or homicidal ideations. Skin is warm to touch. DISCHARGE MEDICATIONS: As follows: 1. Tylenol 325 mg p.o. q.h.s. 2. Albuterol 2.5 mg/3 mL nebulization solution 2 inhalation q.4 hours p.r.n. 3. Albuterol HFA inhaler 2 puffs inhalation q.6 p.r.n. 4. Albuterol sulfate 2 puffs inhalation b.i.d. 6.7 g p.r.n. 5. Asenapine 10 mg sublingual q.h.s. 6. Atorvastatin 40 mg p.o. q.p.m. 7. Bupropion 300 mg p.o. daily. 8. Calcium carbonate/vitamin D 500 mg p.o. b.i.d. with meals. 9. Carvedilol 6.25 mg p.o. b.i.d. 10. Clonazepam 1 mg p.o. b.i.d. 11. Plavix 75 mg p.o. daily. 12. Desvenlafaxine 100 mg p.o. q.a.m. 13. Diltiazem CD 120 mg p.o. q.h.s. 14. Divalproex ER 1000 mg p.o. b.i.d. 15. Colace 100 mg p.o. b.i.d. 16. Gabapentin 100 mg p.o. t.i.d. 17. Neurontin 300 mg p.o. q.h.s. 18. Glimepiride 4 mg p.o. daily. 19. Ibuprofen 600 mg p.o. q.i.d. 20. Liraglutide 1.8 mg subcu daily. 21. Lisinopril 10 mg p.o. q.h.s. 22. Magic MW 2 [place]/maal/nyst/lidocaine 5 mL swish and spit q.i.d. 22. Nystatin powder 1 application topically t.i.d. to intertriginous areas affected. 23. Pantoprazole 40 mg p.o. q.a.m. 24. Ranitidine 150 mg p.o. q.h.s. TIME SPENT: The total time spent evaluating the patient, reviewing pertinent data, and appropriate documentation is greater than 30 minutes. Of note, the patient was discussed with Dr. Benitez given a question of possible PFO study, where she mentions that the only alternative will be a [place], which is thought to be given her body habitus, which put her in unnecessary risk at this time, but can be reconsidered in the future as discussed. [id number]/[facility] #: [id number] [facility]
== END 2018-03-01 11:59 | disposition home or self-care (01) ==
LOC: ED 23:08 → MEDTELE 02-28 02:45
PROVIDERS: ADMIT Hospitalist; ATTEND Student in an Organized Health Care Education/Training Program
DX: G45.9 Transient cerebral ischemic attack, unspecified (principal); F31.9 Bipolar disorder, unspecified; I25.10 Atherosclerotic heart disease of native coronary artery without angina pectoris; Z88.8 Allergy status to other drugs, medicaments and biological substances; I11.0 Hypertensive heart disease with heart failure; I50.9 Heart failure, unspecified; J44.9 Chronic obstructive pulmonary disease, unspecified; I73.9 Peripheral vascular disease, unspecified; I67.5 Moyamoya disease; Z86.73 Personal history of transient ischemic attack (TIA), and cerebral infarction without residual deficits; E11.9 Type 2 diabetes mellitus without complications; G40.909 Epilepsy, unspecified, not intractable, without status epilepticus; G47.33 Obstructive sleep apnea (adult) (pediatric); K21.9 Gastro-esophageal reflux disease without esophagitis; E78.5 Hyperlipidemia, unspecified; F60.3 Borderline personality disorder; F41.9 Anxiety disorder, unspecified; F32.9 Major depressive disorder, single episode, unspecified; E66.9 Obesity, unspecified; Z79.82 Long term (current) use of aspirin; Z87.891 Personal history of nicotine dependence; Z82.49 Family history of ischemic heart disease and other diseases of the circulatory system; Z79.899 Other long term (current) drug therapy; Z79.01 Long term (current) use of anticoagulants; I44.4 Left anterior fascicular block
CPT/HCPCS: 36415; 70450; 70544; 70549; 70553; 71045; 80048; 80053; 80061; 80164; 81003; 81015; 82550; 83036; 83735; 84100; 84484; 85025; 85610; 85730; 87086; 93005; 94660; 96365; 96372; 99285; A9270-GY; A9577; G0378; G8978-GP-CI; G8979-GP-CI; G8980-GP-CI; J1644; J3475

== ENCOUNTER 2018-04-19 21:26 | Emergency (ER) | payer MEDICARE, MEDICAID ==
[2018-04-19] MEDS ORDERED: Charcoal ACTIVATED* 25 GM/120 ML BTL PO ONE (21:53)
[2018-04-19] MEDS ORDERED: NS 0.9% 1000 ML* 1,000 ML IV ONE (21:53)
[2018-04-19 22:24] LABS: ABS Basophils 0.1 10^3/ul (0-0.2); ABS Eosinophils 0.1 10^3/ul (0-0.6); ABS Lymphocytes 3.5 10^3/ul (1.0-4.8); ABS Monocytes 0.8 10^3/ul (0-0.8); ABS Neutrophils 5.2 10^3/ul (1.5-7.7); ABS Nucleated RBC 0 10^3/ul; Hematocrit 40 % (35-47); Hemoglobin 13.8 g/dl (12.0-16.0); Lymphocyte % 36.3 % (25-47); Mean Corpuscular HGB Conc 35 g/dl (31-36); Mean Corpuscular Hemoglobin 30 pg (27-31); Mean Corpuscular Volume 85 fL (80-97); Mean Platelet Volume 8.6 um3 (7.4-10.4); Nucleated Red Blood Cells % 0.1; Platelet Count 183 10^3/ul (150-450); Red Blood Count 4.64 10^6/ul (4.00-5.40); Red Cell Distribution Width 17 % (10.5-15); White Blood Count 9.7 10^3/ul (3.5-10.8)
[2018-04-19 22:40] LABS: EGFR Non-African American 73.4 (>60)
--- NOTE | 2018-04-19 22:55 | ED ---
Substance Abuse/Use - HPI Summary HPI Summary: This is balwindernusrat Bedoyasarah Gaffney documenting for attending Dr. Bill Gray MD. A 57 y/o female ANTHONY presents to the ED s/p overdose. According to the patient, she took eight Fioricet around 2100. The patient noted that she went to her neurology doctor where she had a CTP test down 2 weeks ago. The doctor stated that the patient "has the body of a 82 y/o woman". Additionally, only one main artery is open which brings blood to the brain. She stated that her doctor stated that if that last artery closes, "she is screwed". She went on to state that she took the pills because she wanted to and she has depression. The patient took the medication alone in her bedroom. Her daughter, who she informed after the incident was in the other room. Pt denies intake of other medications. Pt is tearful. Patient has therapist and psychiatrist. PMHx of stent in right carotid artery, heart disease, Cabrera Cabrera disease, bipolar, DM and depression. - History Of Current Complaint Chief Complaint: EDOverdose Stated Complaint: MHE Time Seen by Provider: 04/19/18 21:49 Hx Obtained From: Patient Hx Last Menstrual Period: not since 2009 Onset/Duration of Drug/ETOH Abuse: Hours - 2100 Ingestion History: Type/Name Of Drug - Fioricet Overdose Characteristics: Oral Character: Depressed Aggravating Factor(s): Nothing Alleviating Factor(s): Nothing Associated Signs And Symptoms: Other: - SI - Allergies/Home Medications Allergies/Adverse Reactions: Allergies Allergy/AdvReac Type Severity Reaction Status Date / Time nitrofurantoin Allergy Severe Rash Verified 04/19/18 22:07 meperidine Allergy Intermediate Headache Verified 04/19/18 22:07 clavulanic acid AdvReac Intermediate Nausea And Verified 04/19/18 22:07 Vomiting morphine AdvReac Intermediate Nausea Verified 04/19/18 22:07 Home Medications: Home Medications Albuterol/Ipratropium NEB.SANDEEP* [Duoneb (Albuterol 2.5 MG/Ipratropium 0.5 MG)] 1 neb INH Q4H PRN 04/19/18 [History Confirmed 04/19/18] Asenapine(NF) [Saphris(NF)] 10 mg SL BEDTIME 04/19/18 [History Confirmed ] Atorvastatin* [Lipitor*] 80 mg PO DAILY 04/19/18 [History Confirmed 04/19/18] Cholecalciferol (Vitamin D3) [Vitamin D3] 400 unit PO DAILY 04/19/18 [History Confirmed 04/19/18] Clopidogrel TAB* [Plavix TAB*] 75 mg PO BEDTIME 04/19/18 [History Confirmed ] Multivitamins/Minerals TAB* [Theragran/minerals TAB*] 1 tab PO DAILY 04/19/18 [ History Confirmed 04/19/18] Ondansetron TAB* [Zofran 4 MG Tab*] 4 mg PO Q6H PRN 04/19/18 [History Confirmed 04/19/18] PMH/Surg Hx/FS Hx/Imm Hx Endocrine/Hematology History: Reports: Hx Diabetes, Other Endocrine/ Hematological Disorders Denies: Hx Thyroid Disease, Hx Anemia, Hx Unexplained Bleeding Cardiovascular History: Reports: Hx Cardiac Arrest, Hx Congestive Heart Failure , Hx Hypercholesterolemia, Hx Hypertension Denies: Hx Aneurysm, Hx Angina, Hx Angioplasty, Hx Auto Implanted Cardiovert Defib, Hx Cardiomegaly, Hx Congenital Heart Disease, Hx Coronary Artery Disease , Hx Deep Vein Thrombosis, Hx Embolism, Hx Hypotension, Hx Myocardial Infarction , Hx Pacemaker/ICD, Hx Peripheral Vascular Disease, Hx Rheumatic Fever, Hx Syncope, Hx Valvular Heart Disease, Other Cardiovascular Problems/Disorders Respiratory History: Reports: Hx Asthma, Hx Chronic Bronchitis, Hx Chronic Obstructive Pulmonary Disease (COPD) - 3L O2 at home, Hx Pneumonia, Hx Sleep Apnea, Other Respiratory Problems/Disorders - PNEUMONIA IN 2001 Denies: Hx Cystic Fibrosis, Hx Lung Cancer, Hx Pleural Effusion, Hx Pulmonary Edema, Hx Pulmonary Embolism, Hx Seasonal Allergies GI History: Reports: Hx Gastroesophageal Reflux Disease, Other GI Disorders - "sphincter in stomach not working" Denies: Hx Cirrhosis, Hx Crohn's Disease, Hx Diverticulosis, Hx Gall Bladder Disease, Hx Gastrointestinal Bleed, Hx Hiatal Hernia, Hx Irritable Bowel, Hx Jaundice, Hx Obstructive Bowel, Hx Ileostomy, Hx Pyloric Stenosis, Hx Ulcer History: Reports: Hx Acute Renal Failure, Hx Renal Disease Denies: Hx Benign Prostatic Hyperplasia, Hx Chronic Renal Failure, Hx Dialysis, Hx Kidney Infection, Hx Kidney Stones, Other Problems/Disorders Musculoskeletal History: Reports: Hx Arthritis, Hx Back Problems, Hx Orthopedic Injury, Hx Scoliosis Denies: Hx Osteoporosis Sensory History: Reports: Hx Contacts or Glasses, Hx Vision Problem Denies: Hx Cataracts, Hx Eye Injury, Hx Hearing Aid, Hx Hearing Problem, Other Sensory Impairments Opthamlomology History: Reports: Hx Contacts or Glasses, Hx Vision Problem Denies: Hx Cataracts, Hx Eye Injury, Other Sensory Impairments Neurological History: Reports: Hx Headaches, Hx Migraine, Hx Nerve Disease, Hx Seizures, Hx Transient Ischemic Attacks (TIA), Other Neuro Impairments/ Disorders - Hx of 2 TIA. Hx moyamoya disease. 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 X2. endarterectomy-left internal carotid- STENT PLACED. INTERCRANIAL BYPASS X2 IN [place]. APPENDIX. ENDOMETRIAL ABLATION Hx Anesthesia Reactions: No - Immunization History Date of Tetanus Vaccine: unk Date of Influenza Vaccine: 06/18 Infectious Disease History: No Infectious Disease History: Reports: Hx Clostridium Difficile Denies: Hx Hepatitis, Hx Human Immunodeficiency Virus (HIV), Hx of Known/ Suspected MRSA, Hx Shingles, Hx Tuberculosis, Hx Known/Suspected VRE, Hx Known/ Suspected VRSA, History Other Infectious Disease, Traveled Outside the [place] in Last 30 Days - Family History Known Family History: Positive: Cardiac Disease, Other - bipolar disorder; alcohol abuse - Social History Alcohol Use: Rare Alcohol Amount: once/year Hx Substance Use: No Substance Use Type: Reports: None Hx Tobacco Use: Yes Smoking Status (MU): Former Smoker Type: Cigarettes Amount Used/How Often: quit in 2004 Have You Smoked in the Last Year: No Review of Systems Negative: Fever Psychological: Other - POSITIVE: SI All Other Systems Reviewed And Are Negative: Yes Physical Exam - Summary Physical Exam Summary: Appearance: Well-appearing, Well-nourished, lying in bed comfortably Skin: Warm, dry, no obvious rash Eyes: sclera anicteric, no conjunctival pallor ENT: mucous membranes moist, pharynx appears normal Neck: Supple, nontender Respiratory: Clear to auscultation, no signs of respiratory distress Cardiovascular: Normal S1, S2. No murmurs. Normal distal pulses in tibial and radial bilaterally. Abdomen: Soft, nontender, normal active bowel sounds present Musculoskeletal: Normal, Strength/ROM Intact Neurological: A&Ox3, awake and alert, mentation is normal, speech is fluent and appropriate Psychiatric: affect is normal, does not appear anxious or depressed Triage Information Reviewed: Yes Vital Signs On Initial Exam: Initial Vitals Temp Pulse Resp BP Pulse Ox 98 F 80 20 185/66 96 04/19/18 21:50 04/19/18 21:50 04/19/18 21:50 04/19/18 21:50 04/19/18 21:50 Vital Signs Reviewed: Yes Diagnostics - Vital Signs Vital Signs Temp Pulse Resp BP Pulse Ox 04/19/18 21:50 98 F 80 20 185/66 96 - Laboratory Lab Results: Lab Results 04/19/18 04/19/18 Range/Units 22:08 22:08 WBC 9.7 (3.5-10.8) 10^3/ul RBC 4.64 (4.00-5.40) 10^6/ul Hgb 13.8 (12.0-16.0) g/dl Hct 40 (35-47) % MCV 85 (80-97) fL MCH 30 (27-31) pg MCHC 35 (31-36) g/dl RDW 17 H (10.5-15) % Plt Count 183 (150-450) 10^3/ul MPV 8.6 (7.4-10.4) um3 Neut % (Auto) 54.0 (38-83) % Lymph % (Auto) 36.3 (25-47) % Robertson % (Auto) 7.9 H (0-7) % Eos % (Auto) 1.0 (0-6) % Baso % (Auto) 0.8 (0-2) % Absolute Neuts (auto) 5.2 (1.5-7.7) 10^3/ul Absolute Lymphs (auto) 3.5 (1.0-4.8) 10^3/ul Absolute Monos (auto) 0.8 (0-0.8) 10^3/ul Absolute Eos (auto) 0.1 (0-0.6) 10^3/ul Absolute Basos (auto) 0.1 (0-0.2) 10^3/ul Absolute Nucleated RBC 0 10^3/ul Nucleated RBC % 0.1 Sodium 138 (135-145) mmol/L Potassium 4.3 (3.5-5.0) mmol/L Chloride 102 (101-111) mmol/L Carbon Dioxide 24 (22-32) mmol/L Anion Gap 12 H (2-11) mmol/L BUN 14 (6-24) mg/dL Creatinine 0.81 (0.51-0.95) mg/dL Est GFR ( Amer) 88.8 (>60) Est GFR (Non-Af Amer) 73.4 (>60) BUN/Creatinine Ratio 17.3 (8-20) Glucose 258 H (70-100) mg/dL Calcium 9.4 (8.6-10.3) mg/dL Total Bilirubin 0.40 (0.2-1.0) mg/dL AST 16 (13-39) U/L ALT 20 (7-52) U/L Alkaline Phosphatase 52 (34-104) U/L Total Protein 7.0 (6.4-8.9) g/dL Albumin 4.1 (3.2-5.2) g/dL Globulin 2.9 (2-4) g/dL Albumin/Globulin Ratio 1.4 (1-3) Salicylates < 2.50 (<30) mg/dL Acetaminophen < 15 mcg/mL Serum Alcohol < 10 (<10) mg/dL Result Diagrams: 04/19/18 22:08 04/19/18 22:08 Lab Statement: Any lab studies that have been ordered have been reviewed, and results considered in the medical decision making process. Course/Dx - Course Course Of Treatment: This is a 57-year-old woman with a history of moyamoya disease, known to me from a prior visit, who presents now after a intentional overdose of Fioricet. If her history is to be believed, she took approximately 25 mg/kg of acetaminophen with this, which would not be toxic. Her initial acetaminophen level is unmeasurable. I think there is a substantial chance that the patient did not actually take any of these pills, but we will obtain a four-hour level to be sure. If that is below the toxic range on the nomogram, she can be cleared for mental health evaluation. - Diagnoses Provider Diagnoses: Suicidal ideation Discharge - Sign-Out/Discharge Documenting (check all that apply): Patient Departure Signing out patient TO: Eleazar Costello Receiving patient FROM: Bill Gray - Discharge Plan Condition: Stable Disposition: HOME Referrals: Ang Zelaya MD [Primary Care Provider] - - Billing Disposition and Condition Condition: STABLE Disposition: Home
[2018-04-20 08:03] VITALS: BP 134/55
--- NOTE | 2018-04-20 12:11 | ED ---
Progress - Progress Note Progress Note: This is patria Zarate documenting for attending Eleazar Costello M.D. During the shift change which occurred at 0700 on 04/20/18, Dr. Gray informed Dr. Costello not to worry about this particular patient and that she was clear for discharge, which would be handled by mental health. Therefore, Dr. Costello never saw this patient based off of the provided information and was not involved in patient care. It is believed that Dr. Travis name was placed onto this chart mistakenly by [facility]. - Consult/PCP Time Called: 05:00 Course/Dx - Course Course Of Treatment: This is a 57-year-old woman with a history of moyamoya disease, known to me from a prior visit, who presents now after a intentional overdose of Fioricet. If her history is to be believed, she took approximately 25 mg/kg of acetaminophen with this, which would not be toxic. Her initial acetaminophen level is unmeasurable. I think there is a substantial chance that the patient did not actually take any of these pills, but we will obtain a four-hour level to be sure. If that is below the toxic range on the nomogram, she can be cleared for mental health evaluation. Discharge - Sign-Out/Discharge Documenting (check all that apply): Patient Departure - Discharge Plan Condition: Stable Disposition: HOME Referrals: Ang Zelaya MD [Primary Care Provider] - - Billing Disposition and Condition Condition: STABLE Disposition: Home
== END 2018-04-20 08:03 | disposition home or self-care (01) ==
LOC: ED 21:26
DX: R45.851 Suicidal ideations (principal); I50.9 Heart failure, unspecified; E78.00 Pure hypercholesterolemia, unspecified; Z86.74 Personal history of sudden cardiac arrest; Z95.5 Presence of coronary angioplasty implant and graft; Z95.1 Presence of aortocoronary bypass graft; J44.9 Chronic obstructive pulmonary disease, unspecified; Z99.81 Dependence on supplemental oxygen; F31.9 Bipolar disorder, unspecified; Z88.5 Allergy status to narcotic agent; Z88.1 Allergy status to other antibiotic agents; Z82.49 Family history of ischemic heart disease and other diseases of the circulatory system; Z81.8 Family history of other mental and behavioral disorders; Z87.891 Personal history of nicotine dependence
CPT/HCPCS: 36415; 80053; 80307; 80320; 80329; 85025; 99285; A9270-GY; G0480

== ENCOUNTER 2018-05-21 10:14 | Observation (INO) | payer MEDICARE, MEDICAID ==
[2018-05-21] MEDS ORDERED: Aspirin 81 mg CHEW TAB* 81 MG TAB.CHEW PO ONE (11:14)
[2018-05-21] MEDS ORDERED: NS 0.9% 1000 ML* 1,000 ML IV ONE (11:14)
--- NOTE | 2018-05-21 11:17 | ED ---
HPI Chest Pain - HPI Summary HPI Summary: The pt is a 57 y/o female with DM, HTN presenting to [facility] c/o CP for 3 days, worse today. The non-radiating CP is described as a squeezing pressure and rated 9/10 in severity. It is aggravated by rising after sitting or lying down. She notes dizziness but denies , N/V/D, and abd pain. A previous stress test indicated a previously undetected OH. The pt reports a PMHx of Moyamoya syndrome. Her PCP is Dr. Zelaya. She takes Victoza and Glimepiride for her DM, but not Metformin. Home Medications Medication Instructions Recorded Confirmed Type Albuterol Sulfate [Proventil Hfa] 2 puff INH BID PRN 02/10/18 05/21/18 History Calcium Carbonate/Vitamin D3 500 mg PO DAILY WITH MEAL 02/10/18 05/21/18 History [Oyster Shell Calcium Tablet] Desvenlafaxine(NF) [Pristiq(NF)] 100 mg PO QAM 02/10/18 05/21/18 History Docusate CAP* [Colace Cap*] 100 mg PO BID 02/10/18 05/21/18 History Gabapentin CAP(*) [Neurontin 100 100 mg PO TID 02/10/18 05/21/18 History mg CAP(*)] Gabapentin CAP(*) [Neurontin 300 300 mg PO BEDTIME 02/10/18 05/21/18 History CAP(*)] Glimepiride (NF) 4 mg PO DAILY 02/10/18 05/21/18 History Liraglutide (NF) [Victoza (NF)] 1.8 mg SUBCUT DAILY 02/10/18 05/21/18 History Lisinopril TAB* [Prinivil TAB 10 20 mg PO BEDTIME 02/10/18 05/21/18 History MG*] Pantoprazole TAB (NF) [Protonix 40 mg PO QAM 02/10/18 05/21/18 History TAB (NF)] Ranitidine TAB (NF) [Zantac TAB 300 mg PO BEDTIME 02/10/18 05/21/18 History (NF)] BuPROPion XL* [Bupropion XL*] 300 mg PO DAILY #7 tab.xl 02/15/18 05/21/18 Rx Carvedilol TAB* [Coreg TAB*] 6.25 mg PO BID tab 02/15/18 05/21/18 Rx Diltiazem CD CAP* [Cardizem CD 120 mg PO BEDTIME cap.cd 02/15/18 05/21/18 Rx CAP*] Divalproex ER TAB(*) [Depakote ER 1,000 mg PO BID tab.er 02/15/18 05/21/18 Rx TAB(*)] clonazePAM TAB(*) [Klonopin TAB(*)] 1 mg PO BID PRN #14 tab MDD 2 tabs 02/15/18 05/21/18 Rx Albuterol/Ipratropium NEB.SANDEEP* 1 neb INH Q4H PRN 04/19/18 05/21/18 History [Duoneb (Albuterol 2.5 MG/Ipratropium 0.5 MG)] Asenapine(NF) [Saphris(NF)] 10 mg SL BEDTIME 04/19/18 05/21/18 History Atorvastatin* [Lipitor*] 80 mg PO DAILY 04/19/18 05/21/18 History Cholecalciferol (Vitamin D3) 400 unit PO DAILY 04/19/18 05/21/18 History [Vitamin D3] Clopidogrel TAB* [Plavix TAB*] 75 mg PO BEDTIME 04/19/18 05/21/18 History Multivitamins/Minerals TAB* 1 tab PO DAILY 04/19/18 05/21/18 History [Theragran/minerals TAB*] Ondansetron TAB* [Zofran 4 MG Tab*] 4 mg PO Q6H PRN 04/19/18 05/21/18 History Initial Vital Signs Temp 97.4 F 05/21/18 10:16 Pulse 103 05/21/18 10:16 Resp 20 05/21/18 10:16 BP 171/70 05/21/18 10:16 Pulse Ox 95 05/21/18 10:16 - History of Current Complaint Chief Complaint: EDChestPainROMI Time Seen by Provider: 05/21/18 11:06 Hx Obtained From: Patient Hx Last Menstrual Period: not since 2009 Onset/Duration: Started Days Ago - 3 days ago, Atraumatic, Still Present, Worse Since - Today Timing: Constant Initial Severity: Severe Current Severity: Severe Pain Intensity: 8 Pain Scale Used: 0-10 Numeric Chest Pain Location: Mid Sternal Chest Pain Radiates: No Character: Pressure/Squeezing Aggravating Factor(s): Movement Alleviating Factor(s): Nothing Associated Signs and Symptoms: Positive: Chest Pain, Dizziness. Negative: Nausea, Abdominal Pain, Vomiting - Additional Pertinent History Primary Care Physician: [id number] - Allergy/Home Medications Allergies/Adverse Reactions: Allergies Allergy/AdvReac Type Severity Reaction Status Date / Time nitrofurantoin Allergy Severe Rash Verified 05/21/18 10:20 meperidine Allergy Intermediate Headache Verified 05/21/18 10:20 clavulanic acid AdvReac Intermediate Nausea And Verified 05/21/18 10:20 Vomiting morphine AdvReac Intermediate Nausea Verified 05/21/18 10:20 PMH/Surg Hx/FS Hx/Imm Hx Previously Healthy: No Endocrine/Hematology History: Reports: Hx Diabetes Denies: Hx Thyroid Disease, Hx Anemia, Hx Unexplained Bleeding Cardiovascular History: Reports: Hx Cardiac Arrest, Hx Congestive Heart Failure , Hx Hypercholesterolemia, Hx Hypertension Denies: Hx Aneurysm, Hx Angina, Hx Angioplasty, Hx Auto Implanted Cardiovert Defib, Hx Cardiomegaly, Hx Congenital Heart Disease, Hx Coronary Artery Disease , Hx Deep Vein Thrombosis, Hx Embolism, Hx Hypotension, Hx Myocardial Infarction , Hx Pacemaker/ICD, Hx Peripheral Vascular Disease, Hx Rheumatic Fever, Hx Syncope, Hx Valvular Heart Disease Respiratory History: Reports: Hx Asthma, Hx Chronic Bronchitis, Hx Chronic Obstructive Pulmonary Disease (COPD) - 3L O2 at home, Hx Pneumonia, Hx Sleep Apnea Denies: Hx Cystic Fibrosis, Hx Lung Cancer, Hx Pleural Effusion, Hx Pulmonary Edema, Hx Pulmonary Embolism, Hx Seasonal Allergies GI History: Reports: Hx Gastroesophageal Reflux Disease, Other GI Disorders - "sphincter in stomach not working" Denies: Hx Cirrhosis, Hx Crohn's Disease, Hx Diverticulosis, Hx Gall Bladder Disease, Hx Gastrointestinal Bleed, Hx Hiatal Hernia, Hx Irritable Bowel, Hx Jaundice, Hx Obstructive Bowel, Hx Ileostomy, Hx Pyloric Stenosis, Hx Ulcer History: Reports: Hx Acute Renal Failure, Hx Renal Disease Denies: Hx Benign Prostatic Hyperplasia, Hx Chronic Renal Failure, Hx Dialysis, Hx Kidney Infection, Hx Kidney Stones, Other Problems/Disorders Musculoskeletal History: Reports: Hx Arthritis, Hx Back Problems, Hx Orthopedic Injury, Hx Scoliosis Denies: Hx Osteoporosis Sensory History: Reports: Hx Contacts or Glasses, Hx Vision Problem Denies: Hx Cataracts, Hx Eye Injury, Hx Hearing Aid, Hx Hearing Problem, Other Sensory Impairments Opthamlomology History: Reports: Hx Contacts or Glasses, Hx Vision Problem Denies: Hx Cataracts, Hx Eye Injury, Other Sensory Impairments Neurological History: Reports: Hx Headaches, Hx Migraine, Hx Nerve Disease, Hx Seizures, Hx Transient Ischemic Attacks (TIA), Other Neuro Impairments/ Disorders - Hx moyamoya disease. 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 X2. endarterectomy-left internal carotid- STENT PLACED. INTERCRANIAL BYPASS X2 IN [place]. APPENDIX. ENDOMETRIAL ABLATION Hx Anesthesia Reactions: No - Immunization History Date of Tetanus Vaccine: unk Date of Influenza Vaccine: 06/18 Infectious Disease History: No Infectious Disease History: Reports: Hx Clostridium Difficile Denies: Hx Hepatitis, Hx Human Immunodeficiency Virus (HIV), Hx of Known/ Suspected MRSA, Hx Shingles, Hx Tuberculosis, Hx Known/Suspected VRE, Hx Known/ Suspected VRSA, History Other Infectious Disease, Traveled Outside the [place] in Last 30 Days - Family History Known Family History: Positive: Cardiac Disease, Other - bipolar disorder; alcohol abuse - Social History Occupation: Disabled Lives: With Family Alcohol Use: Rare Alcohol Amount: once/year Hx Substance Use: No Substance Use Type: Reports: None Hx Tobacco Use: Yes Smoking Status (MU): Former Smoker Type: Cigarettes Amount Used/How Often: quit in 2004 Have You Smoked in the Last Year: No Review of Systems Positive: Other - Positive: Dizziness Positive: Chest Pain Respiratory: Negative Gastrointestinal: Negative - N/V/D ; Abd pain Musculoskeletal: Negative Skin: Negative Neurological: Negative Psychological: Normal All Other Systems Reviewed And Are Negative: Yes Physical Exam - Summary Physical Exam Summary: Appearance: Well-appearing, moderate pain distress, obese, c/o chest pain Skin: Warm, color reflects adequate perfusion, dry Head: Normal Head/Face inspection, atraumatic Eyes: Conjunctiva clear ENT: Normal inspection Neck: Supple, no nodes, no JVD Respiratory: Lungs clear, normal breath sounds, no respiratory distress Cardio: RRR, No murmur, pulses normal, brisk capillary refill Abdomen: Soft, nontender Bowel sounds: Present Musculoskeletal: Strength Intact/ROM intact, no calf tenderness, no edema. Psychological: Normal Neuro: A&O x3, facial symmetry, moves all extremities well, no focal deficit Triage Information Reviewed: Yes Vital Signs On Initial Exam: Initial Vitals Temp Pulse Resp BP Pulse Ox 97.4 F 103 20 171/70 95 05/21/18 10:16 05/21/18 10:16 05/21/18 10:16 05/21/18 10:16 05/21/18 10:16 Vital Signs Reviewed: Yes Diagnostics - Vital Signs Vital Signs Temp Pulse Resp BP Pulse Ox 05/21/18 10:16 97.4 F 103 20 171/70 95 - Laboratory Result Diagrams: 05/22/18 05:56 05/22/18 05:56 Lab Statement: Any lab studies that have been ordered have been reviewed, and results considered in the medical decision making process. - Radiology CXR Radiology Interpretation Completed By: Radiologist - IMPRESSION: CARDIOMEGALY. The ED physician has reviewed this radiology report. - EKG 1026 Cardiac Rate: NL EKG Rhythm: Sinus Rhythm ST Segment: Non-Specific Ectopy: None EKG Interpretation: nl AVIVCT, nl ATc, axis -85, LAFB EKG Comparison: No Significant Change - c/w 03/22/18 Re-Evaluation - Re-Evaluation First Eval Re-Evaluation Time: 13:00 Change: Improved - Discussed with the pt abnormal lab results (glucose and lactic acid). Pt still with chest tightness. Will admit. Chest Pain Course/Dx - Course Course Of Treatment: 12:04- Aware of lactate level of 4.3 mg/dL. 57 yo F with Moyamoya syndrom and cardiac risk fxs DM, HTN, Hyperlipidemia, presents with 3 day hx chest tightness. Initial troponin is neg. D dimer is neg. However lactic acid is elevated, as is glucose. EKG is SR, LAFB, no signif change. CXR neg. Pt is admitted for further evaluation of chest pain. Discussed with Dr. Patton, due to elevated lactic acid, will initiate sepsis protocol and begin levaquin IV after blood cultures. - Chest Pain Differential Diagnosis/HQI/PQRI: Acute OH, ACS, Chest Wall, GI Disease, Lower Respiratory Infection - Diagnoses Provider Diagnoses: Chest pain, Elevated lactic acid level, Poorly controlled diabetes mellitus - Provider Notifications Discussed Care Of Patient With: Willis Patton - Hospitalist Time Discussed With Above Provider: 12:04 Instructed by Provider To: Admit As Inpatient - Dr. Patton agreed to admit the pt. Discharge - Sign-Out/Discharge Documenting (check all that apply): Patient Departure - admit - Discharge Plan Condition: Improved Disposition: ADMITTED TO [facility] - Billing Disposition and Condition Condition: IMPROVED Disposition: Admitted to [facility] - Attestation Statements Document Initiated by Scribe: Yes Documenting Scribe: Maria Antonia Pa Provider For Whom Scribe is Documenting (Include Credential): Dr. Mary Lou Asencio Scribe Attestation: Maria Antonia Michaels , balwindered for Dr. Mary Lou Asencio on 05/23/18 at 2256. Scribe Documentation Reviewed: Yes Provider Attestation: The documentation as recorded by the Maria Antonia españa accurately reflects the service I personally performed and the decisions made by , Dr. Mary Lou Asencio
[2018-05-21 11:35] LABS: ABS Basophils 0.1 10^3/ul (0-0.2); ABS Eosinophils 0.1 10^3/ul (0-0.6); ABS Lymphocytes 2.2 10^3/ul (1.0-4.8); ABS Monocytes 0.5 10^3/ul (0-0.8); ABS Neutrophils 5.2 10^3/ul (1.5-7.7); ABS Nucleated RBC 0 10^3/ul; Eosinophil % 0.9 % (0-6); Hematocrit 39 % (35-47); Hemoglobin 13.4 g/dl (12.0-16.0); Lymphocyte % 27.4 % (25-47); Mean Corpuscular HGB Conc 34 g/dl (31-36); Mean Corpuscular Hemoglobin 29 pg (27-31); Mean Corpuscular Volume 85 fL (80-97); Mean Platelet Volume 8.3 um3 (7.4-10.4); Nucleated Red Blood Cells % 0.1; Platelet Count 181 10^3/ul (150-450); Red Blood Count 4.63 10^6/ul (4.00-5.40); Red Cell Distribution Width 17 % (10.5-15); White Blood Count 7.9 10^3/ul (3.5-10.8)
[2018-05-21 11:50] LABS: INR 1.02 (0.77-1.02)
[2018-05-21 11:52] LABS: EGFR Non-African American 81.5 (>60)
--- NOTE | 2018-05-21 12:11 | RAD ---
HISTORY: chest tightness COMPARISONS: February 27, 2018 VIEWS: 1: frontal portable view of the chest at 11:55 AM. The patient is obliqued to the left. FINDINGS: LINES AND TUBES: None. CARDIOMEDIASTINAL SILHOUETTE: The cardiac silhouette is enlarged. The cardiomediastinal silhouette is otherwise normal for portable technique. PLEURA: The costophrenic angles are sharp. No pleural abnormalities are noted. LUNG PARENCHYMA: The lungs are clear. ABDOMEN: The upper abdomen is clear. There is no subphrenic gas. BONES AND SOFT TISSUES: No bone or soft tissue abnormalities are noted. IMPRESSION: CARDIOMEGALY.
[2018-05-21] MEDS ORDERED: NS 0.9% 1000 ML* 1,000 ML BOLUS SCH (12:45)
[2018-05-21] MEDS ORDERED: NS 0.9% 1000 ML*IV.FLUID IV ONE (12:53)
[2018-05-21] MEDS ORDERED: Levofloxacin 750 MG IVPREMIX(* 750 MG/150 ML BAG IVPB ONE (12:58)
[2018-05-21 13:50] LABS: Urine Appearance Clear; Urine Blood Negative (Negative); Urine Color Yellow; Urine Ketones 1+ (Negative); Urine Protein Negative (Negative); Urine Red Blood Cell Trace(0-2/hpf) (Absent); Urine Specific Gravity 1.013 (1.010-1.030); Urine Urobilinogen Negative (Negative); Urine White Blood Cell Trace(0-5/hpf) (Absent)
[2018-05-21] MEDS ORDERED: Albuterol/Ipratropium NEB.SOL* Albuterol 2.5 MG/Ipratropium 0.5 MG 3 ML INH PRN (14:17)
[2018-05-21] MEDS ORDERED: Albuterol HFA INHALER* 8 gm MDI INH PRN (14:17)
[2018-05-21] MEDS ORDERED: Ondansetron TAB* 4 MG PO PRN (14:17)
[2018-05-21] MEDS ORDERED: NS 0.9% 1000 ML* 1,000 ML IV SCH (14:30)
[2018-05-21] MEDS ORDERED: Dextrose 50% Syringe 50 ML* 25 GM/50 ML SYRINGE IV PUSH PRN (14:35)
[2018-05-21] MEDS ORDERED: Magnesium Sulfate IV* 2 GM in NS 0.9% 100 ML* 100 ML IV ONE (14:38)
[2018-05-21] MEDS ORDERED: Enoxaparin(*) 40 MG/0.4 ML SYR SUBCUT SCH (15:00)
[2018-05-21] MEDS: Insulin LISPRO* 1 UNITS UNIT SUBCUT SCH (16:42)
[2018-05-21] MEDS: Gabapentin CAP(*) 100 MG PO SCH (16:58)
[2018-05-21] MEDS ORDERED: Magnesium Sulfate 2 GM IV (Premix) IVPB ONE (17:00)
--- NOTE | 2018-05-21 18:06 | HP ---
ADMITTING HISTORY AND PHYSICAL: DATE OF ADMISSION: 05/21/18 CHIEF COMPLAINT: Chest pain since 3 days [employer]. HISTORY OF PRESENT ILLNESS: The patient is a 57-year-old lady with multiple prior hospitalizations for TIA and symptoms related to her moyamoya who has history of moyamoya syndrome, bipolar disorder, and diabetes who presents with the above chief complaint. She mentions that 3 days [employer], she started having some squeezing like quality of chest pain on her midsternum, nonradiating and exacerbated by changing positions from supine to sitting. Other than this, she denies any associated symptoms. Continuation of her symptoms lead to her presentation in the ED given her concerns for possible cardiac problem. In the ED, she was found to have an elevated lactic acid level and I have spoken with the ED physician and requested that at least to start some sepsis protocol workup such as cultures and may be give her Levaquin. On subsequent evaluation of her history, it seems that she has chronic lactic acidosis during her past visits. Please see discussion below. PAST MEDICAL AND SURGICAL HISTORY: 1. Left endarterectomy back in 2004. 2. History of morbid obesity. 3. Diabetes, type 2. 4. Hypertension. 5. Dyslipidemia. 6. History of bipolar disorder. 7. History of borderline personality disorder. 8. Carotid stenting back in 2004. 9. History of COPD on oxygen at 2 L continuously. 10. JOSIE on CPAP at night. 11. History of CKD. 12. History of CHF. 13. History of intracranial bypasses in the beginning of 2017, which included bilateral STA, MCA encephaloduroarteriosynangiosis bypasses performed at [facility] by Dr. Crowe. 13. History of x2. 14. Appendectomy. 15. History of endometrial ablation. MEDICATIONS: Home medications are as follows: 1. Albuterol. 2. Desvenlafaxine. 3. Clopidogrel. 4. Cholecalciferol. 5. Carvedilol. 6. Calcium carbonate. 7. Shell calcium tablet. 8. Bupropion. 9. Atorvastatin. 10. Asenapine. 11. Albuterol. 12. Ipratropium. 13. Lisinopril. 14. Liraglutide. 15. Glimepiride. 16. Gabapentin. 17. Colace. 18. Divalproex. 19. Diltiazem. 20. Clonazepam. 21. Ranitidine. 22. Pantoprazole. 23. Ondansetron. 24. Multivitamins. ALLERGIES: Include NITROFURANTOIN, AUGMENTIN, MEPERIDINE, and MORPHINE. FAMILY HISTORY: Positive for father who at the age of 51 from an unknown cancer. Mother at the age of 71 secondary to diabetes complication. SOCIAL HISTORY: The patient lives with her 2 children. She quit smoking in 2004. She has a history of 26 pack year smoking history. She denies any alcohol or drug use. She is on disability. She is full code and her healthcare proxy is her daughter, Derba. REVIEW OF SYSTEMS: On review of systems, she denied any recent headache, dizziness, fevers, chills, nausea, vomiting, shortness of breath, increased cough, sputum production, abdominal pain, diarrhea, constipation, pain and/or increased frequency on urination, myalgias, arthralgias, throat pain, or new skin lesions. The rest of the 14-point review of systems are otherwise unremarkable. PHYSICAL EXAMINATION GENERAL APPEARANCE: The patient is awake, alert, and oriented x3, not in acute distress, the patient is obese. VITAL SIGNS: Shows most recent vital signs of records with blood pressure of 171/70, 96% saturation at 2 L nasal cannula, 103 beats per minute heart rate, 97.4 degrees Fahrenheit. HEENT: Normocephalic, atraumatic. PERRLA. Extraocular muscles intact. Negative for icterus. Moist oral mucosa. Negative throat erythema. NECK: Soft, supple with no cervical lymphadenopathy. No JVD. CHEST: Clear to auscultation bilaterally. Good air entry. No wheezes, rales, or rhonchi. HEART: S1, S2 within normal limits. Regular rate and rhythm. No murmurs, rubs , and gallops. ABDOMEN: Soft, nondistended, nontender. Normoactive bowel sounds x4 q. EXTREMITIES: No cyanosis, clubbing, or edema. PSYCHIATRIC: No active psychosis, depression, suicidal or homicidal ideations. SKIN: Warm to touch. LABORATORY DATA/DIAGNOSTIC STUDIES: Most recent and pertinent laboratory, CBC normal sodium, potassium, and chloride levels as well as normal BUN and creatinine, glucose mildly elevated at 225. Lactic acidosis of 4.3 and on repeat, it was improved at 3.2. Troponins of 0.0. D-dimer of less than 200. Magnesium was 1.7. Chest x-ray only shows cardiomegaly. ASSESSMENT AND PLAN: As follows: 1. Chest pain, reproducible unlikely cardiac in nature, although given her moyamoya disease as well as the patient and family's concern that this could possibly be a concomitant heart problem, I have asked Dr. Chavarria to at least consult given previous evaluation of the patient is that she is too high risk for a catheterization. I have left a message to Dr. Chavarria's service. We will trend troponins x3. 2. High lactic acid levels, chronic, could be related to moyamoya disease due to chronic arterial stenosis, which could be systemic. I have discussed the case above with Dr. Yap who mentions that while the above is possible, there has been no published document of lactic acidosis of moyamoya. MELAS is unlikely given her negative family history and she had been able to undergo the intracranial bypasses described above and at this time, I would like to continue Levaquin and we will continue to follow blood cultures and if she clinically does not look like she has sepsis, I would like to discontinue Levaquin quickly. Also, concerning given #1 complaint with chest pain. 3. Hypertension. We will continue diltiazem and lisinopril. 4. Gastroesophageal reflux disease. We will continue pantoprazole. We will hold on H2 blockers. 5. Obstructive sleep apnea. We will place the patient on home CPAP setting. 6. DVT prophylaxis. We will place the patient on Lovenox subcu. DISPOSITION: As above. [id number]/[facility] #: [id number] [facility] [place]
[2018-05-21] MEDS ORDERED: Diltiazem CD CAP* 120 MG PO SCH (21:00)
[2018-05-21] MEDS ORDERED: Clopidogrel TAB* 75 MG PO SCH (21:00)
[2018-05-21] MEDS ORDERED: ASENAPINE 10 MG SL SCH (21:00)
[2018-05-21] MEDS ORDERED: Lisinopril TAB* 10 MG PO SCH (21:00)
[2018-05-21] MEDS ORDERED: Gabapentin CAP(*) 300 MG PO SCH (21:00)
--- NOTE | 2018-05-21 21:02 | CONS ---
CC: Dr. Ang Zelaya * CARDIOLOGY CONSULTATION: DATE OF CONSULT: 05/21/18 INDICATION FOR CONSULTATION: Chest pain. HISTORY OF PRESENT ILLNESS: The patient is a 57-year-old female with a history of carotid stenosis, cerebral artery bypass with stents, obesity, hypoxia, diabetes, who was admitted to the hospital because of chest pain. The patient states that she has been having consistent chest pain for the past 4 days. She says this started last Monday. She has no other symptoms associated with it. She denies any nausea. She denies any lightheadedness or dizziness. She denies any significant change in her shortness of breath. She denies any palpitations. The patient states that on Monday she just noted that she was having this stabbing pain on the left side of her chest. It was there constantly for the past 4 days. No change with medications. Today, however, her oxygen machine quit and her pain got slightly worse and she decided to come to the emergency room. In the emergency room, her troponin level was negative. Her D-dimer level was negative. Her EKG showed normal sinus rhythm with left anterior fascicular block, no change from previous EKGs. The patient was admitted to the hospital because of chest pain. Of note, the patient's laboratory studies did show a slightly elevated lactic acid level at 4.3, which within 6 hours came back down to normal. PAST CARDIAC HISTORY: The patient has had multiple stress tests for her chest pain. Her last was in November 2017. At that time, there was some evidence of decreased perfusion to the anterior wall, both fixed and reversible. At that time, it was deemed to be an intermediate risk study; however, at that time her chest pain was similar to now that was constant chest pain without any evidence of EKG changes or troponin elevation. The patient was seen in consultation by Dr. Villa at the end of November 2017. At that time, his decision was not to pursue any other testing that her chest pain was likely musculoskeletal. PAST MEDICAL HISTORY: Significant for epilepsy, diabetes, emphysema, cerebral artery occlusion, sleep apnea, gastroesophageal reflux disease, morbid obesity, bipolar disorder, hypertension, renal insufficiency. OUTPATIENT MEDICATIONS: 1. Protonix 40 mg a day. 2. Atorvastatin 40 mg a day. 3. Glimepiride 4 mg a day. 4. Oxygen 2 L continuously. 5. Coreg 6.25 mg b.i.d. 6. Victoza. 7. Diltiazem CD 120 mg a day. 8. Ranitidine 300 mg a day. 9. Proventil inhaler. 10. Aspirin 325 daily. 11. Lisinopril 20 mg a day. 12. Colace 100 mg b.i.d. 13. Depakote 500 mg 2 tablets b.i.d. 14. Pristiq 100 mg a day. ALLERGIES: She is intolerant of MACROBID, DEMEROL, METFORMIN, KEPPRA. FAMILY HISTORY: Father had a history of brain cancer. Mother had a history of diabetes and emphysema. SOCIAL HISTORY: She is . She lives with her daughter. She is disabled. She is a previous smoker, but quit more than 10 years ago. She denies any alcohol use. She is not getting any regular exercise. PHYSICAL EXAM: Height 5 feet 7 inches, weight 309 pounds, temperature 97.4, heart rate 90, blood pressure 141/73, respiratory rate is 20, oxygen saturation 97% on room air. Sclerae anicteric. Oropharynx is pink without erythema. Carotids are 2+. She does have loud bruit on the left side. She does have a carotid scar on her left side. Thyroid is normal. Cardiac Exam: Distant heart sounds, S1, S2 without any murmurs, rubs, or gallops. PMI is normal. Lungs are clear to auscultation bilaterally. There is no dullness to percussion. Abdomen is obese, soft, nontender, and nondistended with normoactive bowel sounds. Extremities show 1+ edema. She has 2+ pulses throughout. The patient is awake, alert, and oriented. She moves all 4 extremities equally. DIAGNOSTIC STUDIES/LAB DATA: Chemistries within normal limits. BUN 13, creatinine 0.74. Initial lactic acid level was 4.3. AST and ALT are normal. Troponins are negative x3. BNP is 38. TSH is 1.6. CBC within normal limits. D-dimer is less than 200. EKG is as described above. IMPRESSION AND PLAN: This is a 57-year-old woman, who was admitted to the hospital with chest pain. Again, the patient has had continuous chest pains for the past 4 days. The patient does not have any dynamic EKG changes. Her troponin levels are negative. At this point, I am not convinced that her chest pain is cardiac in origin. Given her very low D-dimer, it seems unlikely that the patient has had a pulmonary embolism. At this point, I think I would concentrate on pain control, optimizing her pulmonary status. I will get an echocardiogram in the morning to reevaluate her LV function. The patient's pain could be costochondritis or pericarditis, which would respond to anti-inflammatories. [id number]/[facility] #: [id number] SAURAV
[2018-05-21] MEDS: Carvedilol TAB* 6.25 MG PO SCH (22:23)
[2018-05-21] MEDS: Docusate CAP* 100 MG PO SCH (22:24)
[2018-05-21] MEDS: clonazePAM TAB(*) 1 MG PO PRN (22:43)
[2018-05-21] MEDS: Divalproex ER TAB(*) 500 MG PO SCH (23:01)
[2018-05-22] MEDS: Insulin LISPRO* 1 UNITS UNIT SUBCUT SCH ×3 (05:38→15:26)
[2018-05-22 06:05] LABS: ABS Basophils 0.1 10^3/ul (0-0.2); ABS Eosinophils 0.1 10^3/ul (0-0.6); ABS Lymphocytes 2.7 10^3/ul (1.0-4.8); ABS Monocytes 0.8 10^3/ul (0-0.8); ABS Neutrophils 5.6 10^3/ul (1.5-7.7); ABS Nucleated RBC 0 10^3/ul; Hematocrit 38 % (35-47); Hemoglobin 12.8 g/dl (12.0-16.0); Mean Corpuscular HGB Conc 34 g/dl (31-36); Mean Corpuscular Hemoglobin 29 pg (27-31); Mean Corpuscular Volume 86 fL (80-97); Mean Platelet Volume 8.2 um3 (7.4-10.4); Nucleated Red Blood Cells % 0.2; Platelet Count 172 10^3/ul (150-450); Red Blood Count 4.41 10^6/ul (4.00-5.40); Red Cell Distribution Width 18 % (10.5-15); White Blood Count 9.3 10^3/ul (3.5-10.8)
[2018-05-22 07:11] LABS: EGFR Non-African American 89.8 (>60)
[2018-05-22] MEDS ORDERED: Perflutren Lipid Microsphere* 3 ML VIAL ONE ×2 (07:31→08:06)
[2018-05-22] MEDS ORDERED: CMC: Pantoprazole TAB (NF) 40 MG TAB PO SCH (09:00)
[2018-05-22] MEDS ORDERED: CMC: Desvenlafaxine (NF) 50 MG TAB PO SCH (09:00)
[2018-05-22] MEDS ORDERED: cefTRIAXone* 1 GM in NS 0.9% 50 ML BAG IVPB SCH (09:00)
[2018-05-22] MEDS ORDERED: BuPROPion XL* 300 MG TAB.XL PO SCH (09:00)
[2018-05-22] MEDS ORDERED: Atorvastatin* 80 MG TAB PO SCH (09:00)
[2018-05-22] MEDS ORDERED: Levofloxacin 500 MG IVPREMIX(* 500 MG/100 ML BAG IVPB SCH (09:00)
--- NOTE | 2018-05-22 10:10 | ECHO ---
Patient: DK GREEN [facility] Rec#: [id number] : 1960 Date: 05/22/2018 Age: 57y Height: 167 cm / 65.7 in Weight: 140 kg / 308.6 lbs Sex: F BSA: 2.4 Room#: 442 Admit Date#: 05/21/2018 Type: Inpatient Referring: Lucas Chavarria MD Reading: Lucas Chavarria MD Brick Setter Operator: Erum Lu,MARY BETH,RDMS CC: Ang Zelaya MD Transthoracic Echocardiogram Indication: CP BP: 139/59 HR: 73 Rhythm: NSR Findings History: HTN, JOSIE, DM, cerebral artery occlusion Technical Comments: The study is technically limited due to poor acoustic windows. Left Ventricle: The left ventricular chamber size is normal. Mild to moderate concentric left ventricular hypertrophy is observed. There is a prominent septal knuckle. Global left ventricular wall motion and contractility are within normal limits. There is normal left ventricular systolic function. The estimated ejection fraction is 60-65%. Abnormal left ventricular diastolic filling is observed, consistent with impaired relaxation. Left Atrium: The left atrium is moderate to severely dilated. Right Ventricle: The right ventricular chamber size and systolic function are within normal limits. The right ventricle wall thickness is moderately increased. Right Atrium: The right atrium is not well visualized. Aortic Valve: The aortic valve is trileaflet. Systolic excursion of the aortic valve is normal. There is aortic annular calcification. There is no evidence of aortic regurgitation. There is no evidence of aortic stenosis. Mitral Valve: There is mitral annular calcification. The mitral valve leaflets are mildly thickened. There is no evidence of mitral regurgitation. There is no evidence of mitral stenosis. Tricuspid Valve: The tricuspid valve leaflets are normal. There is no evidence of tricuspid valve regurgitation. Unable to estimate the right ventricular systolic pressure. Pulmonic Valve: The pulmonic valve structure is not well visualized. There is no evidence of pulmonic valve thickening. There is no evidence of pulmonic regurgitation. Pericardium: There is no significant pericardial effusion. Aorta: The aortic root appears normal. There is no dilatation of the aortic arch. Pulmonary Artery: The main pulmonary artery appears normal. Venous: The inferior vena cava is not visualized. Contrast: Definity was used to optimize study. A total of 3 ml was used Summary: There are no significant changes when compared to the previous study done on 12/14/17 Conclusions Mild to moderate concentric left ventricular hypertrophy is observed. Global left ventricular wall motion and contractility are within normal limits. The estimated ejection fraction is 60-65%. The right ventricular chamber size and systolic function are within normal limits. There is no evidence of aortic stenosis. There is no evidence of mitral regurgitation. There is no evidence of tricuspid valve regurgitation. Unable to estimate the right ventricular systolic pressure. There is no significant pericardial effusion. There are no significant changes when compared to the previous study done on 12/14/17 Measurements Name Value Normal Range RVIDd (AP) 2D 2.9 cm (0.9 - 2.6) RVDdMajor (2D) 3.1 cm (2.2 - 4.4) IVSd (2D) 1.8 cm (0.6 - 1) LVPWd (2D) 1.2 cm (0.6 - 1) LVIDd (2D) 4.3 cm (3.6 - 5.4) LVIDs (2D) 2.8 cm - LV FS (2D) 35 % (25 - 45) Aortic Annulus 2.1 cm (1.4 - 2.6) Ao root diameter (2D) 3.2 cm (2.1 - 3.5) Ascending Ao 2.8 cm (2.1 - 3.4) Aortic arch 3.4 cm (1.8 - 3.4) LA dimension (AP) 2D 4.5 cm (2.3 - 3.8) LAd ISD 4CH 6.8 cm (2.9 - 5.3) LA ISD 4CH W 4.8 cm (2.5 - 4.5) Name Value Normal Range MV E-wave Vmax 0.8 m/sec - MV deceleration time 177 msec - MV A-wave Vmax 1 m/sec - MV E:A ratio 0.8 ratio - LV septal e' Vmax 0.05 m/sec - LV lateral e' Vmax 0.06 m/sec - LV E:e' septal ratio 16 ratio - LV E:e' lateral ratio 13 ratio - Name Value Normal Range AV Vmax 1.4 m/sec - AV VTI 29 cm - AV peak gradient 8 mmHg - AV mean gradient 4 mmHg - LVOT Vmax 1.1 m/sec - LVOT VTI 28 cm - LVOT peak gradient 5 mmHg - LVOT mean gradient 3 mmHg - MANNY Vmax 0.7 m/sec - Name Value Normal Range RAP 8 mmHg - Name Value Normal Range PV Vmax 0.8 m/sec - PV peak gradient 2.6 mmHg -
[2018-05-22] MEDS: Docusate CAP* 100 MG PO SCH (10:11)
[2018-05-22] MEDS: Carvedilol TAB* 6.25 MG PO SCH (10:11)
[2018-05-22] MEDS: clonazePAM TAB(*) 1 MG PO PRN (10:11)
[2018-05-22] MEDS: Gabapentin CAP(*) 100 MG PO SCH (10:11)
[2018-05-22] MEDS: Divalproex ER TAB(*) 500 MG PO SCH (10:12)
[2018-05-22 11:12] VITALS: BP 137/44
--- NOTE | 2018-05-22 15:20 | DS ---
CC: Dr. Abiel Bryant DISCHARGE SUMMARY: DATE OF ADMISSION: 05/21/18 DATE OF DISCHARGE: 05/22/18 HOSPITAL COURSE: This 57-year-old woman presented with chest pain. History is detailed in the emergency room note. The admitting physician thought that the pain was reproducible with pressure; however, she is known to have moyamoya disease and there was some concern there may be related heart problem. Dr. Chavarria saw her in consultation. He recommended an echocardiogram. This was done which showed normal left ventricular systolic function. There was no significant pericardial effusion. The patient had no further pain in the hospital. She was monitored on the telemetry unit. She had 4 troponin levels all of which were within normal limits. FINAL DIAGNOSES: 1. Atypical chest pain. 2. Hypertension. 3. Morbid obesity. 4. Gastroesophageal reflux disease. 5. Obstructive sleep apnea. I noted she had an elevated lactic acid level which resolved in the hospital. Not clear what the significance of this is, she has had many high elevated lactic acid levels in the past. DISCHARGE MEDICATIONS: 1. Gabapentin 100 mg t.i.d. 2. Docusate 100 mg b.i.d. 3. Ranitidine 300 mg h.s. 4. Albuterol Proventil inhaler 2 puffs b.i.d. p.r.n. 5. Desvenlafaxine 100 mg daily. 6. Oyster shell calcium 500 mg daily. 7. Lisinopril 20 mg h.s. 8. Gabapentin 300 mg h.s. 9. Pantoprazole 40 mg daily. 10. Glimepiride 4 mg daily. 11. Liraglutide 1.8 mg subcutaneous daily. 12. Bupropion XL 300 mg daily. 13. Carvedilol 6.25 mg b.i.d. 14. Diltiazem CD 120 mg h.s. 15. Divalproex 1000 mg b.i.d. 16. Clonazepam 1 mg b.i.d. p.r.n. 17. Albuterol ipratropium by nebulizer every 4 hours p.r.n. 18. Ondansetron 4 mg every 6 hours p.r.n. 19. Multivitamin with mineral daily. 20. Asenapine 10 mg sublingual h.s. 21. Vitamin D3 400 units daily. 22. Atorvastatin 80 mg daily. 23. Clopidogrel 75 mg h.s. DISCHARGE CONDITION: IMPROVED DISCHARGE DISPOSITON: DISCHARGE HOME FOLLOWUP: DR. SCHULZ [id number]/CPS #: [id number] SAURAV
== END 2018-05-22 12:04 | disposition home or self-care (01) ==
LOC: ED 10:14 → MEDTELE 14:37
PROVIDERS: ADMIT Student in an Organized Health Care Education/Training Program; ATTEND Internal Medicine
DX: R07.89 Other chest pain (principal); I10 Essential (primary) hypertension; E66.01 Morbid (severe) obesity due to excess calories; K21.9 Gastro-esophageal reflux disease without esophagitis; G47.33 Obstructive sleep apnea (adult) (pediatric); E11.9 Type 2 diabetes mellitus without complications; E78.5 Hyperlipidemia, unspecified; Z86.59 Personal history of other mental and behavioral disorders; J44.9 Chronic obstructive pulmonary disease, unspecified; N18.9 Chronic kidney disease, unspecified; I50.9 Heart failure, unspecified; Z90.89 Acquired absence of other organs; R42 Dizziness and giddiness; Z87.891 Personal history of nicotine dependence
CPT/HCPCS: 36415; 71045; 80053; 81003; 81015; 82550; 82553; 83605; 83735; 83880; 84100; 84145; 84436; 84443; 84484; 85025; 85379; 85610; 85652; 85730; 86140; 87040; 87086; 93005; 93306; 94660; 96365; 99284; A9270-GY; C8929; G0378; J0696; J1650; J3475

== ENCOUNTER 2018-06-10 18:02 | Emergency (ER) | payer MEDICARE, MEDICAID ==
[2018-06-10] MEDS ORDERED: Nitroglycerin TAB 0.4 MG* 0.4 MG TAB SL ONE (19:01)
[2018-06-10] MEDS ORDERED: Aspirin 81 mg CHEW TAB* 81 MG TAB.CHEW PO ONE (19:01)
--- NOTE | 2018-06-10 19:01 | ED ---
HPI Chest Pain - HPI Summary HPI Summary: Pt is a 57 year old female presenting to the ED with a chief complaint of chest pain with associated L arm shaking onset about 1 hour ago. The chest pain is on her L anterior, radiates to her neck. Pt reports shortness of breath, and a hx of HTN, HLD, diabetes, COPD, PR, a stent in her carotid artery, is on blood thinners, and has had an appendectomy. The pt denies abd pain, ankle swelling, pain in the posterior legs, and a hx of blood clots. The pt states that breathing, movement, and position changes make the pain worse, and that she uses a motorized chair for mobility. - History of Current Complaint Chief Complaint: EDChestPainROMI Time Seen by Provider: 06/10/18 18:50 Hx Obtained From: Patient Hx Last Menstrual Period: not since 2009 Onset/Duration: Started Hours Ago, Still Present Timing: Constant Initial Severity: Moderate Current Severity: Moderate Pain Intensity: 7 Pain Scale Used: 0-10 Numeric Chest Pain Location: Left Anterior Chest Pain Radiates: Yes Chest Pain Radiates To:: Neck - L neck Character: Dyspnea at Orthopnea, Dyspnea at Rest, Sharp/Stabbing Aggravating Factor(s): Exertion, Position, Movement, Deep Breaths Alleviating Factor(s): Nothing Associated Signs and Symptoms: Positive: Chest Pain, Shortness of Breath, Other : - L arm shakey. Negative: Abdominal Pain, Calf Pain/Swelling - Additional Pertinent History Primary Care Physician: [id number] - Allergy/Home Medications Allergies/Adverse Reactions: Allergies Allergy/AdvReac Type Severity Reaction Status Date / Time nitrofurantoin Allergy Severe Rash Verified 05/21/18 10:20 meperidine Allergy Intermediate Headache Verified 05/21/18 10:20 clavulanic acid AdvReac Intermediate Nausea And Verified 05/21/18 10:20 Vomiting morphine AdvReac Intermediate Nausea Verified 05/21/18 10:20 PMH/Surg Hx/FS Hx/Imm Hx Previously Healthy: No Endocrine/Hematology History: Reports: Hx Diabetes, Other Endocrine/ Hematological Disorders Denies: Hx Blood Disorders - blood clots, Hx Thyroid Disease, Hx Anemia, Hx Unexplained Bleeding Cardiovascular History: Reports: Hx Cardiac Arrest, Hx Congestive Heart Failure , Hx Hypercholesterolemia, Hx Hypertension, Other Cardiovascular Problems/ Disorders - Moyamoya syndrome Denies: Hx Aneurysm, Hx Angina, Hx Angioplasty, Hx Auto Implanted Cardiovert Defib, Hx Cardiomegaly, Hx Congenital Heart Disease, Hx Coronary Artery Disease , Hx Deep Vein Thrombosis, Hx Embolism, Hx Hypotension, Hx Myocardial Infarction , Hx Pacemaker/ICD, Hx Peripheral Vascular Disease, Hx Rheumatic Fever, Hx Syncope, Hx Valvular Heart Disease Respiratory History: Reports: Hx Asthma, Hx Chronic Bronchitis, Hx Chronic Obstructive Pulmonary Disease (COPD) - 3L O2 at home, Hx Pneumonia, Hx Sleep Apnea, Other Respiratory Problems/Disorders - PNEUMONIA IN 2001 Denies: Hx Cystic Fibrosis, Hx Lung Cancer, Hx Pleural Effusion, Hx Pulmonary Edema, Hx Pulmonary Embolism, Hx Seasonal Allergies GI History: Reports: Hx Gastroesophageal Reflux Disease, Other GI Disorders - "sphincter in stomach not working" Denies: Hx Cirrhosis, Hx Crohn's Disease, Hx Diverticulosis, Hx Gall Bladder Disease, Hx Gastrointestinal Bleed, Hx Hiatal Hernia, Hx Irritable Bowel, Hx Jaundice, Hx Obstructive Bowel, Hx Ileostomy, Hx Pyloric Stenosis, Hx Ulcer History: Reports: Hx Acute Renal Failure, Hx Renal Disease Denies: Hx Benign Prostatic Hyperplasia, Hx Chronic Renal Failure, Hx Dialysis, Hx Kidney Infection, Hx Kidney Stones, Other Problems/Disorders Musculoskeletal History: Reports: Hx Arthritis, Hx Back Problems, Hx Orthopedic Injury, Hx Scoliosis Denies: Hx Osteoporosis Sensory History: Reports: Hx Contacts or Glasses, Hx Vision Problem Denies: Hx Cataracts, Hx Eye Injury, Hx Hearing Aid, Hx Hearing Problem, Other Sensory Impairments Opthamlomology History: Reports: Hx Contacts or Glasses, Hx Vision Problem Denies: Hx Cataracts, Hx Eye Injury, Other Sensory Impairments Neurological History: Reports: Hx Headaches, Hx Migraine, Hx Nerve Disease, Hx Seizures, Hx Transient Ischemic Attacks (TIA), Other Neuro Impairments/ Disorders - Hx moyamoya disease. 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 X2. endarterectomy-left internal carotid- STENT PLACED. INTERCRANIAL BYPASS X2 IN [place]. APPENDIX. ENDOMETRIAL ABLATION Hx Anesthesia Reactions: No - Immunization History Date of Tetanus Vaccine: unk Date of Influenza Vaccine: 06/18 Infectious Disease History: No Infectious Disease History: Reports: Hx Clostridium Difficile Denies: Hx Hepatitis, Hx Human Immunodeficiency Virus (HIV), Hx of Known/ Suspected MRSA, Hx Shingles, Hx Tuberculosis, Hx Known/Suspected VRE, Hx Known/ Suspected VRSA, History Other Infectious Disease, Traveled Outside the [place] in Last 30 Days - Family History Known Family History: Positive: Cardiac Disease, Other - bipolar disorder; alcohol abuse - Social History Alcohol Use: Rare Alcohol Amount: once/year Hx Substance Use: No Substance Use Type: Reports: None Hx Tobacco Use: Yes Smoking Status (MU): Former Smoker Type: Cigarettes Amount Used/How Often: quit in 2004 Have You Smoked in the Last Year: No Review of Systems Positive: Chest Pain Positive: Shortness Of Breath Negative: Abdominal Pain Negative: Myalgia, Edema All Other Systems Reviewed And Are Negative: Yes Physical Exam - Summary Physical Exam Summary: General: morbidly obese, no pain distress Skin: warm, color reflects adequate perfusion, dry Head: normal Eyes: EOMI, GERMANIA ENT: normal Neck: supple, nontender Respiratory: CTA, breath sounds present Cardiovascular: RRR Abdomen: soft, nontender Bowel: present Musculoskeletal: normal, strength/ROM intact Neurological: sensory/motor intact, A&O x3 Psychological: affect/mood appropriate Triage Information Reviewed: Yes Vital Signs On Initial Exam: Initial Vitals Temp Pulse Resp BP Pulse Ox 97.0 F 84 16 150/64 97 06/10/18 18:04 06/10/18 18:04 06/10/18 18:04 06/10/18 18:04 06/10/18 18:04 Vital Signs Reviewed: Yes Diagnostics - Vital Signs Vital Signs Temp Pulse Resp BP Pulse Ox 06/10/18 18:37 81 27 168/69 93 06/10/18 18:32 81 96 06/10/18 18:04 97.0 F 84 16 150/64 97 - Laboratory Result Diagrams: 06/10/18 19:25 06/10/18 19:25 Lab Statement: Any lab studies that have been ordered have been reviewed, and results considered in the medical decision making process. - Radiology Chest X Ray Xray Interpretation: No Acute Changes Radiology Interpretation Completed By: ED Physician - Radiologist has not yet reviewed this report. - EKG 1830 Cardiac Rate: NL ST Segment: Normal Ectopy: None Chest Pain Course/Dx - Course Course Of Treatment: RESULTS DISCUSSED WITH THE PATIENT AND FAMILY. DISCUSSED WITH DR GALVAN, HOSPITALIST. THE PLAN IS TO TREAT FOR PAIN WITH TORADOL AND FENTANYL AND IV FLUID AND CHECK TROPONINS AND LACTIC ACID IN THE ED. IF THE TROPONIN/LACTIC ACID DO NOT INCREASE, WILL D/C HOME FOR OUT PATIENT F/U. DISPOSITION PENDING AT SHIFT CHANGE. - Diagnoses Provider Diagnoses: Chest pain Discharge - Sign-Out/Discharge Documenting (check all that apply): Patient Departure - admission, Sign-Out Patient Signing out patient TO: João Stout - Discharge Plan Condition: Stable Disposition: ADMITTED TO [facility] Patient Education Materials: Chest Pain (ED) Referrals: Ang Zelaya MD [Primary Care Provider] - Additional Instructions: FOLLOW UP WITH YOUR DOCTOR. RETURN TO THE EMERGENCY DEPARTMENT FOR ANY WORSENING OF YOUR CONDITION OR QUESTIONS OR CONCERNS. - Billing Disposition and Condition Condition: STABLE Disposition: Admitted to [facility] - Attestation Statements Document Initiated by Scribe: Yes Documenting Scribe: Hina Bishop Provider For Whom Brittnee is Documenting (Include Credential): William Narvaez MD. Scribe Attestation: Hina Michaels, balwindered for William Narvaez MD. on 06/10/18 at 2144. Scribe Documentation Reviewed: Yes Provider Attestation: The documentation as recorded by the Hina españa accurately reflects the service I personally performed and the decisions made by me, William Narvaez MD. Consult Consult: [id number] - Spoke with Mario Galvan MD., about admitting the pt to the hospital. Dr. Galvan wants to first re-check her troponin levels before admission.
[2018-06-10] MEDS ORDERED: NS 0.9% 1000 ML* 1,000 ML IV SCH (19:15)
[2018-06-10 19:50] LABS: ABS Basophils 0.1 10^3/ul (0-0.2); ABS Eosinophils 0.1 10^3/ul (0-0.6); ABS Lymphocytes 3.7 10^3/ul (1.0-4.8); ABS Monocytes 0.9 10^3/ul (0-0.8); ABS Neutrophils 6.3 10^3/ul (1.5-7.7); ABS Nucleated RBC 0.1 10^3/ul; Eosinophil % 0.9 % (0-6); Hematocrit 41 % (35-47); Lymphocyte % 33.9 % (25-47); Mean Corpuscular HGB Conc 34 g/dl (31-36); Mean Corpuscular Hemoglobin 29 pg (27-31); Mean Corpuscular Volume 85 fL (80-97); Mean Platelet Volume 8.6 um3 (7.4-10.4); Nucleated Red Blood Cells % 0.7; Platelet Count 238 10^3/ul (150-450); Red Cell Distribution Width 18 % (10.5-15)
[2018-06-10 20:00] LABS: EGFR Non-African American 71.4 (>60)
[2018-06-10 20:05] LABS: INR 1.02 (0.77-1.02)
[2018-06-10] MEDS ORDERED: NS 0.9% 500 ML* 500 ML IV ONE (21:06)
[2018-06-10] MEDS ORDERED: fentaNYL* 50 MCG/ML 2 ML VIAL (100 MCG VIAL) IV SLOW PU ONE (21:08)
[2018-06-10] MEDS ORDERED: Ondansetron INJ* 2 MG/ML VIAL IV ONE (21:08)
[2018-06-10] MEDS ORDERED: Al Hydrox/Mg Hydrox/Simet LIQ* 30 ML UDC PO ONE (21:20)
[2018-06-10] MEDS ORDERED: Lidocaine 2% VISCOUS* 15 ML UDC PO ONE (21:20)
[2018-06-10] MEDS ORDERED: Ketorolac INJ* 30 MG/ML 1 ML VIAL IV ONE (21:37)
[2018-06-10 22:12] LABS: Urine Appearance Clear; Urine Blood Negative (Negative); Urine Color Yellow; Urine Ketones Trace (Negative); Urine Protein Negative (Negative); Urine Red Blood Cell Trace(0-2/hpf) (Absent); Urine Specific Gravity 1.014 (1.010-1.030); Urine Urobilinogen Negative (Negative); Urine White Blood Cell 1+(6-10/hpf) (Absent)
--- NOTE | 2018-06-11 00:02 | ED ---
Progress - Progress Note Progress Note: Patient was receieved as a sign out from Dr. Narvaez to Dr. Stout at 2200 while waiting on another troponin. 2147 lactic acid was 1.9 and troponin was 0.00 Re-Evaluation - Re-Evaluation First Eval Re-Evaluation Time: 23:58 Comment: Discussed results of lab with patient. She will be discharged to home and follow up with PCP and spear fisher for a stress test. She is agreeable with this plan. Course/Dx - Course Course Of Treatment: Patient was receieved as a sign out from Dr. Narvaez to Dr. Stout at 2200 to wait on new lactic acid and troponin levels. 2147 lactic acid was 1.9 and troponin was 0.00. Discussed results of lab with patient. She will be discharged to home and follow up with PCP and spear fisher for a stress test. She is agreeable with this plan. Patient was diagnosed with atypical chest pain. - Diagnoses Provider Diagnoses: Atypical chest pain Discharge - Sign-Out/Discharge Documenting (check all that apply): Patient Departure - discharge - Discharge Plan Condition: Stable Disposition: HOME Patient Education Materials: Chest Pain (ED) Referrals: Ang Zelaya MD [Primary Care Provider] - As Soon As Possible Pepper Benitez MD [Medical Doctor] - As Soon As Possible Additional Instructions: RETURN TO ED FOR ANY CHANGING OR WORSENING SYMPTOMS. FOLLOW UP WITH PRIMARY CARE PHYSICIAN WELL ASSISTANT CREDIT MANAGER FOR CARDIAC STRESS TEST SOON POSSIBLE. - Attestation Statements Document Initiated by Scribe: Yes Documenting Scribe: Jaycob Zarate Provider For Whom Brittnee is Documenting (Include Credential): João Stout MD Scribe Attestation: Jaycob Michaels, scribed for João Stout MD on 06/11/18 at 0007.
[2018-06-11 00:27] VITALS: BP 125/69
--- NOTE | 2018-06-11 07:16 | RAD ---
INDICATION: Chest pain. COMPARISON: Correlation is made with prior study from May 21, 2018. TECHNIQUE: A portable view of the chest was obtained. FINDINGS: Cardiac and mediastinal contours appear to be within normal limits. The lungs are clear. No pleural effusion is seen. IMPRESSION: NO EVIDENCE FOR ACUTE DISEASE. R0
== END 2018-06-11 00:21 | disposition home or self-care (01) ==
LOC: ED 18:02
DX: R07.89 Other chest pain (principal)
CPT/HCPCS: 36415; 71045; 80053; 80307; 80320; 80329; 81003; 81015; 82550; 82553; 83605; 83690; 83735; 83880; 84443; 84484; 85025; 85379; 85610; 85730; 86140; 87086; 93005; 96374; 96375; 99282; A9270-GY; G0480; J1885; J2405; J3010

== ENCOUNTER 2018-06-12 21:23 | Inpatient (IN) | payer MEDICARE, MEDICAID ==
[2018-06-12 22:18] LABS: ABS Basophils 0.1 10^3/ul (0-0.2); ABS Eosinophils 0.1 10^3/ul (0-0.6); ABS Monocytes 0.6 10^3/ul (0-0.8); ABS Neutrophils 5.1 10^3/ul (1.5-7.7); ABS Nucleated RBC 0 10^3/ul; Hematocrit 39 % (35-47); Lymphocyte % 33.9 % (25-47); Mean Corpuscular HGB Conc 34 g/dl (31-36); Mean Corpuscular Hemoglobin 28 pg (27-31); Mean Corpuscular Volume 84 fL (80-97); Mean Platelet Volume 8.7 um3 (7.4-10.4); Nucleated Red Blood Cells % 0.1; Platelet Count 193 10^3/ul (150-450); Red Blood Count 4.61 10^6/ul (4.00-5.40); Red Cell Distribution Width 18 % (10.5-15); White Blood Count 8.9 10^3/ul (3.5-10.8)
[2018-06-12 22:34] LABS: EGFR Non-African American 75.6 (>60)
--- NOTE | 2018-06-12 22:35 | ED ---
Psychiatric Complaint - HPI Summary HPI Summary: This patient is a 57 year old F BIBA to [facility] with a chief complaint of SI for the last week. Pt planned to overdose and her antipsychotic medication. She wants to kill herself because she feels as if she is a burden to her family. - History Of Current Complaint Chief Complaint: EDMentalHealth Time Seen by Provider: 06/12/18 21:42 Hx Obtained From: Patient Hx Last Menstrual Period: not since 2009 Onset/Duration: Lasting Weeks - 1, Still Present Timing: Constant Severity Initially: Moderate Severity Currently: Moderate Character: Depressed Aggravating Factor(s): Recent Stress Related History: Positive For: Prior Psychiatric Issues Has Suicidal: Reports: Thoughts, With A Plan - Allergies/Home Medications Allergies/Adverse Reactions: Allergies Allergy/AdvReac Type Severity Reaction Status Date / Time nitrofurantoin Allergy Severe Rash Verified 05/21/18 10:20 meperidine Allergy Intermediate Headache Verified 05/21/18 10:20 clavulanic acid AdvReac Intermediate Nausea And Verified 05/21/18 10:20 Vomiting morphine AdvReac Intermediate Nausea Verified 05/21/18 10:20 Home Medications: Home Medications clonazePAM TAB(*) [Klonopin TAB(*)] 1 mg PO BID MDD 2 tabs 06/13/18 [History Confirmed 06/13/18] PMH/Surg Hx/FS Hx/Imm Hx Endocrine/Hematology History: Reports: Hx Diabetes, Other Endocrine/ Hematological Disorders Denies: Hx Blood Disorders - blood clots, Hx Thyroid Disease, Hx Anemia, Hx Unexplained Bleeding Cardiovascular History: Reports: Hx Cardiac Arrest, Hx Congestive Heart Failure , Hx Hypercholesterolemia, Hx Hypertension, Other Cardiovascular Problems/ Disorders - Moyamoya syndrome Denies: Hx Aneurysm, Hx Angina, Hx Angioplasty, Hx Auto Implanted Cardiovert Defib, Hx Cardiomegaly, Hx Congenital Heart Disease, Hx Coronary Artery Disease , Hx Deep Vein Thrombosis, Hx Embolism, Hx Hypotension, Hx Myocardial Infarction , Hx Pacemaker/ICD, Hx Peripheral Vascular Disease, Hx Rheumatic Fever, Hx Syncope, Hx Valvular Heart Disease Respiratory History: Reports: Hx Asthma, Hx Chronic Bronchitis, Hx Chronic Obstructive Pulmonary Disease (COPD) - 3L O2 at home, Hx Pneumonia, Hx Sleep Apnea, Other Respiratory Problems/Disorders - PNEUMONIA IN 2001 Denies: Hx Cystic Fibrosis, Hx Lung Cancer, Hx Pleural Effusion, Hx Pulmonary Edema, Hx Pulmonary Embolism, Hx Seasonal Allergies GI History: Reports: Hx Gastroesophageal Reflux Disease, Other GI Disorders - "sphincter in stomach not working" Denies: Hx Cirrhosis, Hx Crohn's Disease, Hx Diverticulosis, Hx Gall Bladder Disease, Hx Gastrointestinal Bleed, Hx Hiatal Hernia, Hx Irritable Bowel, Hx Jaundice, Hx Obstructive Bowel, Hx Ileostomy, Hx Pyloric Stenosis, Hx Ulcer History: Reports: Hx Acute Renal Failure, Hx Renal Disease Denies: Hx Benign Prostatic Hyperplasia, Hx Chronic Renal Failure, Hx Dialysis, Hx Kidney Infection, Hx Kidney Stones, Other Problems/Disorders Musculoskeletal History: Reports: Hx Arthritis, Hx Back Problems, Hx Orthopedic Injury, Hx Scoliosis Denies: Hx Osteoporosis Sensory History: Reports: Hx Contacts or Glasses, Hx Vision Problem Denies: Hx Cataracts, Hx Eye Injury, Hx Hearing Aid, Hx Hearing Problem, Other Sensory Impairments Opthamlomology History: Reports: Hx Contacts or Glasses, Hx Vision Problem Denies: Hx Cataracts, Hx Eye Injury, Other Sensory Impairments Neurological History: Reports: Hx Headaches, Hx Migraine, Hx Nerve Disease, Hx Seizures, Hx Transient Ischemic Attacks (TIA), Other Neuro Impairments/ Disorders - Hx moyamoya disease. 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 X2. endarterectomy-left internal carotid- STENT PLACED. INTERCRANIAL BYPASS X2 IN [place]. APPENDIX. ENDOMETRIAL ABLATION Hx Anesthesia Reactions: No - Immunization History Date of Tetanus Vaccine: unk Date of Influenza Vaccine: 06/18 Infectious Disease History: No Infectious Disease History: Reports: Hx Clostridium Difficile Denies: Hx Hepatitis, Hx Human Immunodeficiency Virus (HIV), Hx of Known/ Suspected MRSA, Hx Shingles, Hx Tuberculosis, Hx Known/Suspected VRE, Hx Known/ Suspected VRSA, History Other Infectious Disease, Traveled Outside the [place] in Last 30 Days - Family History Known Family History: Positive: Cardiac Disease, Other - bipolar disorder; alcohol abuse - Social History Alcohol Use: Rare Alcohol Amount: once/year Hx Substance Use: No Substance Use Type: Reports: None Hx Tobacco Use: Yes Smoking Status (MU): Former Smoker Type: Cigarettes Amount Used/How Often: quit in 2004 Have You Smoked in the Last Year: No Review of Systems Negative: Fever Psychological: Other - SI Positive: Depressed All Other Systems Reviewed And Are Negative: Yes Physical Exam - Summary Physical Exam Summary: VITAL SIGNS: Reviewed. GENERAL: Patient is a well-developed and morbidly obese female who is lying comfortable in the stretcher. Patient is not in any acute respiratory distress. Pt appears depressed HEAD AND FACE: No signs of trauma. No ecchymosis, hematomas or skull depressions. No sinus tenderness. EYES: PERRLA, EOMI x 2, No injected conjunctiva, no nystagmus. EARS: Hearing grossly intact. Ear canals and tympanic membranes are within normal limits. MOUTH: Oropharynx within normal limits. NECK: Supple, trachea is midline, no adenopathy, no JVD, no carotid bruit, no c- spine tenderness, neck with full ROM. CHEST: Symmetric, no tenderness at palpation LUNGS: Clear to auscultation bilaterally. No wheezing or crackles. CVS: Regular rate and rhythm, S1 and S2 present, no murmurs or gallops appreciated. ABDOMEN: Soft, non-tender. No signs of distention. No rebound no guarding, and no masses palpated. Bowel sounds are normal. EXTREMITIES: FROM in all major joints, no edema, no cyanosis or clubbing. NEURO: Alert and oriented x 3. No acute neurological deficits. Speech is normal and follows commands. SKIN: Dry and warm Triage Information Reviewed: Yes Vital Signs On Initial Exam: Initial Vitals Temp Pulse Resp BP Pulse Ox 98.6 F 78 18 169/74 98 06/12/18 21:36 06/12/18 21:36 06/12/18 21:36 06/12/18 21:36 06/12/18 21:36 Vital Signs Reviewed: Yes Diagnostics - Vital Signs Vital Signs Temp Pulse Resp BP Pulse Ox 06/12/18 21:36 98.6 F 78 18 169/74 98 - Laboratory Lab Results: Lab Results 06/12/18 Range/Units 22:07 WBC 8.9 (3.5-10.8) 10^3/ul RBC 4.61 (4.00-5.40) 10^6/ul Hgb 13.0 (12.0-16.0) g/dl Hct 39 (35-47) % MCV 84 (80-97) fL MCH 28 (27-31) pg MCHC 34 (31-36) g/dl RDW 18 H (10.5-15) % Plt Count 193 (150-450) 10^3/ul MPV 8.7 (7.4-10.4) um3 Neut % (Auto) 57.2 (38-83) % Lymph % (Auto) 33.9 (25-47) % [place] % (Auto) 7.2 H (0-7) % Eos % (Auto) 1.0 (0-6) % Baso % (Auto) 0.7 (0-2) % Absolute Neuts (auto) 5.1 (1.5-7.7) 10^3/ul Absolute Lymphs (auto) 3.0 (1.0-4.8) 10^3/ul Absolute Monos (auto) 0.6 (0-0.8) 10^3/ul Absolute Eos (auto) 0.1 (0-0.6) 10^3/ul Absolute Basos (auto) 0.1 (0-0.2) 10^3/ul Absolute Nucleated RBC 0 10^3/ul Nucleated RBC % 0.1 Result Diagrams: 06/12/18 22:07 06/12/18 22:07 Lab Statement: Any lab studies that have been ordered have been reviewed, and results considered in the medical decision making process. Re-Evaluation - Re-Evaluation First Eval Re-Evaluation Time: 23:09 Change: Unchanged Comment: Pt is medically cleared for MHE. Course/Dx - Course Assessment/Plan: This patient is a 57 year old F BIBA to [facility] with a chief complaint of SI for the last week. Pt planned to overdose and her antipsychotic medication. She wants to kill herself because she feels as if she is a burden to her family. After MHE by Dr Castro the patient will be admitted for depression. The patient is agreeable with this - Differential Dx/Clinical Impression Provider Diagnosis: Depression Discharge - Sign-Out/Discharge Documenting (check all that apply): Patient Departure - admitted - Discharge Plan Condition: Fair Disposition: ADMITTED TO [facility] Referrals: Ang Zelaya MD [Primary Care Provider] - - Attestation Statements Document Initiated by Scribe: Yes Documenting Scribe: Jamie Ling Provider For Whom Scribe is Documenting (Include Credential): João Stout MD Scribe Attestation: Jamie Michaels , scribed for João Stout MD on 06/13/18 at 0118.
[2018-06-12 22:42] LABS: Urine Appearance Clear; Urine Blood Negative (Negative); Urine Color Yellow; Urine Ketones Trace (Negative); Urine Protein Negative (Negative); Urine Red Blood Cell Trace(0-2/hpf) (Absent); Urine Specific Gravity 1.017 (1.010-1.030); Urine Urobilinogen Negative (Negative); Urine White Blood Cell 3+(>20/hpf) (Absent)
[2018-06-13] MEDS ORDERED: clonazePAM TAB(*) 1 MG PO PRN (01:18)
[2018-06-13] MEDS ORDERED: Diltiazem CD CAP* 120 MG PO ONE (01:19)
[2018-06-13] MEDS ORDERED: Lisinopril TAB* 10 MG PO ONE (01:19)
[2018-06-13] MEDS ORDERED: Clopidogrel TAB* 75 MG PO ONE (01:20)
[2018-06-13] MEDS ORDERED: Divalproex ER TAB(*) 500 MG PO ONE (01:21)
[2018-06-13] MEDS ORDERED: diPHENhydraMINE PO* 25 MG PO PRN (02:28)
[2018-06-13] MEDS: Nystatin TOP POWDER* 15 GM BTL TOPICAL SCH ×2 (03:15→19:29)
[2018-06-13] MEDS: Diltiazem CD CAP* 120 MG PO SCH ×2 (05:43→20:56)
[2018-06-13] MEDS: Clopidogrel TAB* 75 MG PO SCH ×2 (05:43→20:57)
[2018-06-13] MEDS: Lisinopril TAB* 10 MG PO SCH ×2 (05:43→20:57)
[2018-06-13] MEDS: Famotidine TAB* 20 MG PO SCH ×2 (06:11→20:56)
[2018-06-13] MEDS ORDERED: ASENAPINE 10 MG SL SCH (09:00)
[2018-06-13] MEDS: Divalproex ER TAB(*) 500 MG PO SCH ×2 (09:27→20:58)
[2018-06-13] MEDS: Carvedilol TAB* 6.25 MG PO SCH ×2 (09:28→20:57)
[2018-06-13] MEDS: Vitamin THERAPEUTIC TAB PO SCH (09:28)
[2018-06-13] MEDS: Docusate CAP* 100 MG PO SCH ×2 (09:28→20:56)
[2018-06-13] MEDS: Gabapentin CAP(*) 100 MG PO SCH ×3 (09:29→17:26)
--- NOTE | 2018-06-13 14:48 | HP ---
H&P (Free Text) History and Physical: JUSTIFICATION FOR ADMISSION: Patient presented to emergency room with suicidal ideation and impulsive intent to attempt, worsening depression, feelings of being a burden. She requires inpatient psychiatric admission in order to provide treatment and stabilization as she is a danger to herself. CHIEF COMPLAINT: "I feel like a burden to my family HISTORY OF THE PRESENT ILLNESS: Patient is a 57 y/o female, living with her daughter, unemployed and on disability, with history of Bipolar disorder and Borderline personality Disorder. Patient was admitted to inpatient unit for worsening of her depression , feelings of hopelessness, helplessness and worthlessness and was having suicidal thoughts and intended to overdose on her medications. Patient messaged her daughter who communicated that to her fiance that happened to be at home and took possession of patient's medications. When daughter returned home had some further arguments and patient still had some packs of Saphris that she impulsively wanted to take and was stopped by her daughter and brought to the hospital. Patient on the morning that she presented to ED, had a conflict with her daughter of staying with her at home but she left. Patient reportedly was in distress due to 06/12 as she happened to be in [facility] during that time. Patient has been compliant with her medications and following outpatient and is being helped by her daughter to manage her medications. Patient reportedly has been feeling worthless and helpless with feelings of being burden to the family. Patient reports no manic symptoms. Patient reports no psychotic symptoms. Patient denied any suicidal or homicidal ideation on the unit. Patient continued to exhibit behavior that is in control and following staff redirection. patient was encouraged to participate in therapy be compliant with her medications on the unit. PAST PSYCHIATRIC HISTORY: The patient has had multiple previous psychiatric hospitalizations including 3 in [facility] and approximately 10 at [facility]. She has frequent mental health evaluations in the emergency room wherein she was not admitted, as well. Her first psychiatric hospitalization was in [facility] when she was 20 years old. She was diagnosed with bipolar disorder. She goes to [facility]. Patient's psychotropic medications include alprazolam, Saphris, Pristiq, Depakote, gabapentin, and Wellbutrin. No access to fire arm reported. SUBSTANCE ABUSE HISTORY: Patient reports no substance or alcohol abuse. Urine toxicology was negative. PAST MEDICAL HISTORY: The patient had moyamoya disease with CVA during intracranial surgery in December 2016, CVA 2005, CHF, diabetes mellitus, GERD, history of DVT, dyslipidemia, obstructive sleep apnea, hypertension, morbid obesity, history of carotid endarterectomy, cervical dysplasia with endometrial ablation, herniated disks at L4-L5 and L5-S1. ALLERGIES: Nitrofurantoin, Meperidine, Clavulanic acid, Morphine FAMILY PSYCHIATRIC HISTORY: There is a history of depression in her family. She has a maternal uncle with a diagnosis of bipolar and her eldest daughter, Gabriella, suffers from anxiety. no reported suicide in the family. FAMILY/PSYCHOSOCIAL HISTORY: The patient was born and raised in [place]. 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 She has an undergraduate degree in Estonian from [employer] in [place] and a master's degree from [employer]. She moved to [facility] around 2008. Has 2 daughters, Gabriella and debra, who are adults. Patient's daughter Gabriella recently moved to [place]. Patient reports her relationship has been better with her daughter since she moved to [place] and speak to her nearly every day. Patient currently live with her other daughter Debra. Patient reports that they have some conflict at times but other enriquez patient craves for her. The patient reports that she quit smoking in 2004. She denies a history of alcohol or substance use. The patient lives in an apartment and receives disability. Patient reports getting about 42 hours of home health aide services at home. REVIEW OF SYSTEMS: Patients review of symptoms was negative for any physical complaint. But patient has been agitated and unstable in his mood, refusing his vitals to be taken. Patients ED physical exam was reviewed which is grossly normal with no active medical problem. MENTAL STATUS EXAMINATION: Appearance: 57 y/o obese female, making fair eye contact, ambulating by foot, fair hygiene and grooming. Behavior: Gait: steady but some shuffling, uses walker at home Abnormal motor activity: none Speech: normal tone and volume, normal rate and rhythm Mood: "not good" Affect: depressed, but some reactivity from crying to smiling during the interview but appropriate to the content. Thought process: goal directed to circumstantial Thought Content: Suicidal/Homicidal ideation: denied at time of evaluation Delusions: none Obsessions: none Phobia: none Perceptual disturbance: none Attention: fair Orientation: grossly intact Concentration: limited Memory: fair Insight: fair Judgment: poor when in distress Impulse control: poor as per recent evidence IMPRESSION: Jewels is a 57 y.o. female with multiple medical comorbidities was brought to [facility] by ambulance due to suicidal ideation. She was feeling like a burden on her family due to her inability to care for herself and needing her familys assistance. Patient had been able to stockpile a stash and intended to take these to end her life. Patient has previous admissions to [facility] for depression and suicidal ideation. Patient has at least one serious suicide attempt by overdose. Patient felt that she is unsafe and would benefit from inpatient care. DIAGNOSES: Bipolar Disorder, MRE Depressed; Borderline Personality Disorder, Impulse control Disorder, Sleep Apnea, COPD, Fungal Rash. PLAN: Admit to [facility] on Q 15 min observation. Patient was on full code. Patient is on voluntary admission status Integrate patient into the milieu Individual and group psychotherapy MMPI and psychological consult with Dr. Weldon. Social work consult for therapy and discharge planning Will hold family meeting to increase Data base, if possible. Patient gave informed consent to continue her current medications and Saphris was discontinued, will obtain Valproic acid level for now. Patient will be observed for any further changes in her medications. Patient's medical conditions were discussed with Dr. Morocho national sales executive, was continued with 2L O2 as need by patient. Patient was also started n Bipap/Cpap 14/06 and Nystatin Powder TID to address fungal rash. Will continue to monitor and f/u for improvement and side effects. Genevieve Martínez MD Attending Psychiatrist
--- NOTE | 2018-06-13 17:36 | PN ---
MHU: Group Therapy Note - Service Type Service Type: [id number] Group Psychotherapy - Group Participation Patient Participating in Group: Yes Level of Group Participation: Attentive, Spontaneously Participate Relatedness to Group: Well Related - Medication Education Group: Patient was attentive and participatory in group, and remained in good behavioral control. Patient expressed positive insights regarding relevant treatment interventions. Patient stated understanding of material discussed and had appropriate questions.
[2018-06-13] MEDS: Gabapentin CAP(*) 300 MG PO SCH (20:57)
[2018-06-14] MEDS: Nystatin TOP POWDER* 15 GM BTL TOPICAL SCH ×3 (08:15→22:17)
[2018-06-14] MEDS: Vitamin THERAPEUTIC TAB PO SCH (08:32)
[2018-06-14] MEDS: Gabapentin CAP(*) 100 MG PO SCH ×3 (08:32→17:49)
[2018-06-14] MEDS: Docusate CAP* 100 MG PO SCH ×2 (08:32→22:03)
[2018-06-14] MEDS: Carvedilol TAB* 6.25 MG PO SCH ×2 (08:32→22:03)
[2018-06-14] MEDS: Divalproex ER TAB(*) 500 MG PO SCH ×2 (08:32→22:02)
--- NOTE | 2018-06-14 11:56 | PN ---
Subjective - Subjective Date of Service: 06/14/18 Service Type: [id number] Hosp care 25 min moderate complexity Subjective: Patient was seen by self, discussed with treatment team, chart was reviewed. Patient has been compliant with her medications, no reported side effects. Patient reports continued depressive symptoms and suicidal thoughts but not intent or attempt as feel safe in the hospital. Patient behavior has been in control. Patient sleeping has been disturbed on the unit and instructed to use BiPAP/CPAP. Patient eating has been fair. Patient has been cooperative with staff. Patient behavior has been in control and requested Q30 and comfort room which was granted. Patient also requested a staff pass will continue to monitor for that. Patient mood was anxious and dysphoric and also requested to be given her Clonazpepam. Patient was given psychoeducation around Clonazepam and approaching anxiety through safer medication to avoid adverse reaction due to pre existing COPD and Sleep Apnea. Patient has been reporting no homicidal ideation. No psychotic symptoms of delusions or hallucinations. Patient has not been using BiPAP and CPAP at bedtime was instructed to do so. Instead patient is using 2L O2 therapy. Objective - Appearance Appearance: Obese Dysmorphic Features: No Hygiene: Normal Grooming: Fairly Well Kept - Behavior Psychomotor Activities: Normal Exhibits Abnormal Movement: No - Attitude and Relatedness Attitude and Relatedness: Cooperative Eye Contact: Fair - Speech Quality: Unpressured Latencies: Normal Quantity: Appropriate - Mood Patient's Decription of Mood: "Sad" - Affect Observed Affect: Depressed Affect Consistent with: Dysphoria - Thought Process Patient's Thought Process: Coherent Thought Content: Yes Passive Wish, No Suicidal Planning, No Homicidal Ideation, No Paranoid Ideation - Sensorium Experiencing Hallucinations: No, Sensorium is Clear Type of Hallucinations: Visual: No, Auditory: No, Command: No - Level of Consciousness Level of Consciousness: Alert Orientation: Yes Intact, Yes Orientated to Time, Yes Orientated to Place, Yes Orientated to Person - Impulse Control Impulse Control: Poor - as per recent enidence but in control in the hospital and following staffs redirection - Insight and Judgement Insight and Judgement: Fair - Group Participation Particating in Group Activities: Yes - Medication Management Medication Management Adherence: Yes Assessment - Assessment Merits Inpatient Hospitalization: For Immediate Safety, For Stabilization, For Discharge Planning Inpatient DSM-V Dx: F31.9 Clinical Impression: Dk is a 57 y.o. female with multiple medical comorbidities was brought to [facility] by ambulance due to suicidal ideation. She was feeling like a burden on her family due to her inability to care for herself and needing her familys assistance. Patient had been able to stockpile a stash and intended to take these to end her life. Patient has previous admissions to [facility] for depression and suicidal ideation. Patient has at least one serious suicide attempt by overdose. Patient felt that she is unsafe and would benefit from inpatient care. Plan - Plan Treatment Plan: Name: DK GREEN Birthdate: 1960 [id number] - Patient continues to be hospitalized due to recent impulsive suicidal thoughts and intent with interrupted attempt, depression, anxiety and impulsivity. - Patient's medications were adjusted after informed consent with addition and increment of her Pristiq [id number] QAm and address depression, suicidal thoughts and anxiety. Will another antidepressant Wellbutrin for now considering history of Bipolar Disorder. Will also start low dose Klonopin prn for benzodiazepine withdrawal. Patient was instructed to use CPAP and BiPAP instead of any medications and if needed use Benadryl PRN for sleep. Continue with other medications. - Patient will be monitored for improvement and side effects. Risk and benefits were discussed. - Patient was encouraged to continue his participation in the milieu, group and individual therapy. Medications: Current Medications Carvedilol (Coreg Tab*) 6.25 mg PO BID [facility] Last Admin: 06/14/18 08:32 Dose: 6.25 mg Clonazepam (Klonopin Tab(*)) 0.5 mg PO BID PRN PRN Reason: benzodiazepine withdrawal Clopidogrel Bisulfate (Plavix Tab*) 75 mg PO BEDTIME [facility] Last Admin: 06/13/18 20:57 Dose: 75 mg Desvenlafaxine Succinate (Pristiq (Nf)) 150 mg PO DAILY [facility] Diltiazem HCl (Cardizem Cd Cap*) 120 mg PO BEDTIME [facility] Last Admin: 06/13/18 20:56 Dose: 120 mg Diphenhydramine HCl (Benadryl Po*) 25 mg PO Q6H PRN PRN Reason: INSOMNIA Divalproex Sodium (Depakote Er Tab(*)) 1,000 mg PO BID [facility] Last Admin: 06/14/18 08:32 Dose: 1,000 mg Docusate Sodium (Colace Cap*) 100 mg PO BID [facility] Last Admin: 06/14/18 08:32 Dose: 100 mg Famotidine (Pepcid Tab*) 40 mg PO BEDTIME [facility] Last Admin: 06/13/18 20:56 Dose: 40 mg Gabapentin (Neurontin Cap(*)) 100 mg PO 0800,1400,1700 [facility] Last Admin: 06/14/18 08:32 Dose: 100 mg Gabapentin (Neurontin Cap(*)) 300 mg PO BEDTIME [facility] Last Admin: 06/13/18 20:57 Dose: 300 mg Lisinopril (Prinivil Tab*) 20 mg PO BEDTIME [facility] Last Admin: 06/13/18 20:57 Dose: 20 mg Multivitamins (Theragran Tab*) 1 tab PO DAILY [facility] Last Admin: 06/14/18 08:32 Dose: 1 tab Nystatin (Nystatin Top Powder*) 1 applic TOPICAL TID [facility] Last Admin: 06/14/18 08:15 Dose: 1 applic
[2018-06-14] MEDS ORDERED: DESVENLAFAXINE 100 MG PO SCH (12:00)
[2018-06-14] MEDS: Polyethylene Glycol 3350* 17 GM PACKET PO PRN (13:00)
[2018-06-14] MEDS: clonazePAM TAB(*) 0.5 MG PO PRN ×2 (13:00→22:04)
[2018-06-14] MEDS: Desvenlafaxine (NF) 50 MG TAB PO SCH (13:02)
--- NOTE | 2018-06-14 13:55 | PN ---
MHU: Group Therapy Note - Service Type Service Type: [id number] Group Psychotherapy - Cognitive Behavioral Group Therapy ( CBT):Patient was attentive and participatory in CBT programming this morning, and remained in good behavioral control. Patient expressed positive insights regarding relevant treatment interventions and goals.
[2018-06-14] MEDS: Atorvastatin* 80 MG TAB PO SCH (17:00)
[2018-06-14] MEDS: Calcium/Vitamin D TAB 250/125* TAB PO SCH (17:00)
[2018-06-14] MEDS: CMC:Glimepiride (NF) 2 MG TAB PO SCH (17:01)
[2018-06-14] MEDS: Famotidine TAB* 20 MG PO SCH (22:02)
[2018-06-14] MEDS: Diltiazem CD CAP* 120 MG PO SCH (22:03)
[2018-06-14] MEDS: Gabapentin CAP(*) 300 MG PO SCH (22:03)
[2018-06-14] MEDS: Clopidogrel TAB* 75 MG PO SCH (22:03)
[2018-06-14] MEDS: Lisinopril TAB* 10 MG PO SCH (22:03)
[2018-06-14] MEDS: Acetaminophen TAB* 325 MG PO PRN (22:05)
[2018-06-15] MEDS: Desvenlafaxine (NF) 50 MG TAB PO SCH (08:57)
[2018-06-15] MEDS: CMC:Glimepiride (NF) 2 MG TAB PO SCH (08:57)
[2018-06-15] MEDS: Divalproex ER TAB(*) 500 MG PO SCH ×2 (08:57→21:20)
[2018-06-15] MEDS: Docusate CAP* 100 MG PO SCH ×2 (08:57→21:24)
[2018-06-15] MEDS: Calcium/Vitamin D TAB 250/125* TAB PO SCH (08:58)
[2018-06-15] MEDS: Carvedilol TAB* 6.25 MG PO SCH ×2 (08:58→21:22)
[2018-06-15] MEDS: Vitamin THERAPEUTIC TAB PO SCH (08:58)
[2018-06-15] MEDS: clonazePAM TAB(*) 0.5 MG PO PRN (09:02)
[2018-06-15] MEDS: Nystatin TOP POWDER* 15 GM BTL TOPICAL SCH ×3 (10:03→21:26)
[2018-06-15] MEDS: Gabapentin CAP(*) 100 MG PO SCH ×3 (10:03→18:05)
[2018-06-15] MEDS ORDERED: Dextrose 50% Syringe 50 ML* 25 GM/50 ML SYRINGE IV PUSH PRN (11:42)
--- NOTE | 2018-06-15 12:26 | PN ---
Subjective - Subjective Date of Service: 06/15/18 Service Type: 25358 Hosp care 15 min low complexity Subjective: Patient was seen by self, discussed with treatment team, chart was reviewed. Patient has been compliant with her medications, no reported side effects. Patient reports feeling depressed but when explored further patient has been going through separation anxiety with her daughter. Patient has premature coping strategies and defenses to address that . Patient reported having suicidal thoughts when her daughter told her today that she will not be able to visit her but not intent or attempt as feel safe in the hospital. Patient was given supportive and brief cbt to help use mature coping strategies to address her depression and anxiety. Patient behavior has been in control. Patient sleeping has been disturbed on the unit and instructed to use BiPAP/CPAP again and respiratory therapist was consulted as patient does not have her own machine at home. Patient eating has been fair. Patient has been cooperative with staff. Patient behavior has been in control and requested computer access as she wants to read email from her yazdanism. Luz Elena ambulates with a walker on the unit. Patient mood was less anxious and dysphoric and took her klonopin this morning prn. Patient was given psychoeducation around Clonazepam and approaching anxiety through safer medication to avoid adverse reaction due to pre existing COPD and Sleep Apnea. Patient has been reporting no homicidal ideation. No psychotic symptoms of delusions or hallucinations. Patient has not been using BiPAP and CPAP at bedtime was instructed to do so. Instead patient is using 2L O2 therapy. Patient is attending therapy and taking notes. Objective - Appearance Appearance: Healthy Appearing, Obese Hygiene: Normal Grooming: Fairly Well Kept - Behavior Psychomotor Activities: Normal Exhibits Abnormal Movement: No - Attitude and Relatedness Attitude and Relatedness: Cooperative Eye Contact: Fair - Speech Quality: Unpressured Latencies: Normal Quantity: Appropriate - Mood Patient's Decription of Mood: "Anxious" - Affect Observed Affect: Depressed Affect Consistent with: Dysphoria - Thought Process Patient's Thought Process: Coherent Thought Content: Yes Passive Wish, No Suicidal Planning, No Homicidal Ideation, No Paranoid Ideation - Sensorium Experiencing Hallucinations: No, Sensorium is Clear Type of Hallucinations: Visual: No, Auditory: No, Command: No - Level of Consciousness Level of Consciousness: Alert Orientation: Yes Intact, Yes Orientated to Time, Yes Orientated to Place, Yes Orientated to Person - Impulse Control Impulse Control: Intact - Insight and Judgement Insight and Judgement: Fair - but poor in distress - Group Participation Particating in Group Activities: Yes - Medication Management Medication Management Adherence: Yes Assessment - Assessment Merits Inpatient Hospitalization: For Immediate Safety, For Stabilization, For Discharge Planning Inpatient DSM-V Dx: F31.9 Clinical Impression: Dk is a 57 y.o. female with multiple medical comorbidities was brought to [facility] by ambulance due to suicidal ideation. She was feeling like a burden on her family due to her inability to care for herself and needing her familys assistance. Patient had been able to stockpile a stash and intended to take these to end her life. Patient has previous admissions to [facility] for depression and suicidal ideation. Patient has at least one serious suicide attempt by overdose. Patient felt that she is unsafe and would benefit from inpatient care. Plan - Plan Treatment Plan: Name: DK GREEN Birthdate: 1960 [id number] - Patient continues to be hospitalized due to recent impulsive suicidal thoughts and intent with interrupted attempt, depression, anxiety and impulsivity. - Patient's medications were adjusted after informed consent with continuation of her Pristiq [id number] QAm and address depression, suicidal thoughts and anxiety. Will hold another antidepressant Wellbutrin for now considering history of Bipolar Disorder. Will also keep low dose Klonopin prn for benzodiazepine withdrawal. Patient was instructed to use CPAP and BiPAP instead of any medications and if needed use Benadryl PRN for sleep. Continue with other medications. - Patient will be monitored for improvement and side effects. Risk and benefits were discussed. - Patient was encouraged to continue his participation in the milieu, group and individual therapy. Medications: Current Medications Acetaminophen (Tylenol Tab*) 650 mg PO Q4H PRN PRN Reason: PAIN/FEVER Last Admin: 06/14/18 22:05 Dose: 650 mg Atorvastatin Calcium (Lipitor*) 80 mg PO 1700 [facility] Last Admin: 06/14/18 17:00 Dose: 80 mg Calcium/Vitamin D (Oscal D Tab 250/125*) 1 tab PO DAILY [facility] Last Admin: 06/15/18 08:58 Dose: 1 tab Carvedilol (Coreg Tab*) 6.25 mg PO BID [facility] Last Admin: 06/15/18 08:58 Dose: 6.25 mg Clonazepam (Klonopin Tab(*)) 0.5 mg PO BID PRN PRN Reason: benzodiazepine withdrawal Last Admin: 06/15/18 09:02 Dose: 0.5 mg Clopidogrel Bisulfate (Plavix Tab*) 75 mg PO BEDTIME [facility] Last Admin: 06/14/18 22:03 Dose: 75 mg Desvenlafaxine Succinate (Pristiq (Nf)) 150 mg PO DAILY [facility] Last Admin: 06/15/18 08:57 Dose: 150 mg Diltiazem HCl (Cardizem Cd Cap*) 120 mg PO BEDTIME [facility] Last Admin: 06/14/18 22:03 Dose: 120 mg Diphenhydramine HCl (Benadryl Po*) 25 mg PO Q6H PRN PRN Reason: INSOMNIA Divalproex Sodium (Depakote Er Tab(*)) 1,000 mg PO BID [facility] Last Admin: 06/15/18 08:57 Dose: 1,000 mg Docusate Sodium (Colace Cap*) 100 mg PO BID [facility] Last Admin: 06/15/18 08:57 Dose: 100 mg Famotidine (Pepcid Tab*) 40 mg PO BEDTIME [facility] Last Admin: 06/14/18 22:02 Dose: 40 mg Gabapentin (Neurontin Cap(*)) 100 mg PO 0800,1400,1700 [facility] Last Admin: 06/15/18 10:03 Dose: 100 mg Gabapentin (Neurontin Cap(*)) 300 mg PO BEDTIME [facility] Last Admin: 06/14/18 22:03 Dose: 300 mg Glimepiride (Glimepiride (Nf)) 4 mg PO DAILY [facility] Last Admin: 06/15/18 08:57 Dose: 4 mg Lisinopril (Prinivil Tab*) 20 mg PO BEDTIME [facility] Last Admin: 06/14/18 22:03 Dose: 20 mg Multivitamins (Theragran Tab*) 1 tab PO DAILY [facility] Last Admin: 06/15/18 08:58 Dose: 1 tab Nystatin (Nystatin Top Powder*) 1 applic TOPICAL TID [facility] Last Admin: 06/15/18 10:03 Dose: 1 applic Polyethylene Glycol/Electrolytes (Miralax*) 17 gm PO DAILY PRN PRN Reason: CONSTIPATION Last Admin: 06/14/18 13:00 Dose: 17 gm
[2018-06-15] MEDS: Polyethylene Glycol 3350* 17 GM PACKET PO PRN (13:09)
[2018-06-15] MEDS: Acetaminophen TAB* 325 MG PO PRN (15:11)
[2018-06-15] MEDS: Insulin LISPRO* 1 UNITS UNIT SUBCUT SCH ×2 (16:37→21:15)
[2018-06-15] MEDS: Atorvastatin* 80 MG TAB PO SCH (18:06)
[2018-06-15] MEDS: Diltiazem CD CAP* 120 MG PO SCH (21:22)
[2018-06-15] MEDS: Lisinopril TAB* 10 MG PO SCH (21:22)
[2018-06-15] MEDS: Clopidogrel TAB* 75 MG PO SCH (21:22)
[2018-06-15] MEDS: Famotidine TAB* 20 MG PO SCH (21:23)
[2018-06-15] MEDS: Gabapentin CAP(*) 300 MG PO SCH (21:24)
[2018-06-16] MEDS: Insulin LISPRO* 1 UNITS UNIT SUBCUT SCH ×4 (07:52→20:58)
[2018-06-16] MEDS: Desvenlafaxine (NF) 50 MG TAB PO SCH (07:53)
[2018-06-16] MEDS: Docusate CAP* 100 MG PO SCH ×2 (07:54→20:58)
[2018-06-16] MEDS: clonazePAM TAB(*) 0.5 MG PO PRN ×2 (07:54→20:56)
[2018-06-16] MEDS: Gabapentin CAP(*) 100 MG PO SCH ×3 (07:54→17:44)
[2018-06-16] MEDS: Carvedilol TAB* 6.25 MG PO SCH ×2 (07:54→20:58)
[2018-06-16] MEDS: Vitamin THERAPEUTIC TAB PO SCH (07:56)
[2018-06-16] MEDS: Divalproex ER TAB(*) 500 MG PO SCH ×2 (07:57→20:56)
[2018-06-16] MEDS: Calcium/Vitamin D TAB 250/125* TAB PO SCH (07:57)
[2018-06-16] MEDS: CMC:Glimepiride (NF) 2 MG TAB PO SCH (07:57)
[2018-06-16] MEDS: Nystatin TOP POWDER* 15 GM BTL TOPICAL SCH ×3 (09:30→21:00)
[2018-06-16] MEDS: Acetaminophen TAB* 325 MG PO PRN (14:09)
[2018-06-16] MEDS: Atorvastatin* 80 MG TAB PO SCH (17:44)
[2018-06-16] MEDS: Famotidine TAB* 20 MG PO SCH (20:56)
[2018-06-16] MEDS: Lisinopril TAB* 10 MG PO SCH (20:57)
[2018-06-16] MEDS: Clopidogrel TAB* 75 MG PO SCH (20:57)
[2018-06-16] MEDS: Gabapentin CAP(*) 300 MG PO SCH (20:57)
[2018-06-16] MEDS: Diltiazem CD CAP* 120 MG PO SCH (20:57)
[2018-06-17] MEDS: Divalproex ER TAB(*) 500 MG PO SCH ×2 (08:51→20:47)
[2018-06-17] MEDS: clonazePAM TAB(*) 0.5 MG PO PRN ×3 (08:52→21:19)
[2018-06-17] MEDS: Docusate CAP* 100 MG PO SCH ×2 (08:53→20:48)
[2018-06-17] MEDS: Vitamin THERAPEUTIC TAB PO SCH (08:53)
[2018-06-17] MEDS: Desvenlafaxine (NF) 50 MG TAB PO SCH (08:53)
[2018-06-17] MEDS: CMC:Glimepiride (NF) 2 MG TAB PO SCH (08:53)
[2018-06-17] MEDS: Calcium/Vitamin D TAB 250/125* TAB PO SCH (08:54)
[2018-06-17] MEDS: Carvedilol TAB* 6.25 MG PO SCH ×2 (08:54→20:48)
[2018-06-17] MEDS: Gabapentin CAP(*) 100 MG PO SCH ×3 (08:54→16:51)
[2018-06-17] MEDS: Insulin LISPRO* 1 UNITS UNIT SUBCUT SCH ×4 (08:54→21:20)
[2018-06-17] MEDS: Nystatin TOP POWDER* 15 GM BTL TOPICAL SCH ×3 (09:19→20:48)
[2018-06-17] MEDS: Acetaminophen TAB* 325 MG PO PRN (13:03)
--- NOTE | 2018-06-17 15:41 | PN ---
Subjective - Subjective Date of Service: 06/17/18 Subjective: Dk complains of not sleeping well because of being observed by staff (b/c of CPAP), feels tired during the day, mood is "better then before," no SI in the past 24 hour, last felt suicidal when daughter was leaving town for the weekend on Monday. She denies side effects from prescribed meds. Per staff, she has been adherent to unit's routines. Objective - Appearance Appearance: Obese Dysmorphic Features: No Hygiene: Normal Grooming: Well Kept - Behavior Psychomotor Activities: Abnormal-Decreased Exhibits Abnormal Movement: No - Attitude and Relatedness Attitude and Relatedness: Cooperative Eye Contact: Fair - Speech Quality: Unpressured Latencies: Normal Quantity: Appropriate - Mood Patient's Decription of Mood: better - Affect Observed Affect: Fair Affect Consistent with: Euthymia - Thought Process Patient's Thought Process: Coherent, Goal Directed Thought Content: No Passive Wish, No Suicidal Planning, No Homicidal Ideation, No Paranoid Ideation - Sensorium Experiencing Hallucinations: No, Sensorium is Clear - Level of Consciousness Level of Consciousness: Alert Orientation: Yes Intact - Impulse Control Impulse Control: Intact - Insight and Judgement Insight and Judgement: Fair - Group Participation Particating in Group Activities: Yes - Medication Management Medication Management Adherence: Yes Assessment - Assessment Inpatient DSM-V Dx: F31.9 Clinical Impression: Dk is a 57 y.o. female with multiple medical comorbidities was brought [place] [facility] [place] due to suicidal ideation. She was feeling like a burden on her family due to her inability to care for herself and needing her familys assistance. Patient had been able to stockpile a stash and intended to take these to end her life. Patient has previous admissions to [facility] for depression and suicidal ideation. Patient has at least one serious suicide attempt by overdose. Patient felt that she is unsafe and would benefit from inpatient care. Stabilizing in this structured setting, with lower distress level, improving mood, absence of suicidal ideation. Tolerating Pristiq, Klonopin with no adverse effects. Plan - Plan Treatment Plan: Name: DK GREEN Birthdate: 1960 [id number] Medications: Current Medications Acetaminophen (Tylenol Tab*) 650 mg PO Q4H PRN PRN Reason: PAIN/FEVER Last Admin: 06/17/18 13:03 Dose: 650 mg Atorvastatin Calcium (Lipitor*) 80 mg PO 1700 [facility] Last Admin: 06/16/18 17:44 Dose: 80 mg Calcium/Vitamin D (Oscal D Tab 250/125*) 1 tab PO DAILY [facility] Last Admin: 06/17/18 08:54 Dose: 1 tab Carvedilol (Coreg Tab*) 6.25 mg PO BID [facility] Last Admin: 06/17/18 08:54 Dose: 6.25 mg Clonazepam (Klonopin Tab(*)) 0.5 mg PO BID PRN PRN Reason: benzodiazepine withdrawal Last Admin: 06/17/18 08:52 Dose: 0.5 mg Clopidogrel Bisulfate (Plavix Tab*) 75 mg PO BEDTIME [facility] Last Admin: 06/16/18 20:57 Dose: 75 mg Desvenlafaxine Succinate (Pristiq (Nf)) 150 mg PO DAILY [facility] Last Admin: 06/17/18 08:53 Dose: 150 mg Dextrose (D50w Syringe 50 Ml*) 12.5 gm IV PUSH .FOR FS < 60 - SS PRN PRN Reason: FS < 60 Diltiazem HCl (Cardizem Cd Cap*) 120 mg PO BEDTIME [facility] Last Admin: 06/16/18 20:57 Dose: 120 mg Diphenhydramine HCl (Benadryl Po*) 25 mg PO Q6H PRN PRN Reason: INSOMNIA Divalproex Sodium (Depakote Er Tab(*)) 1,000 mg PO BID [facility] Last Admin: 06/17/18 08:51 Dose: 1,000 mg Docusate Sodium (Colace Cap*) 100 mg PO BID [facility] Last Admin: 06/17/18 08:53 Dose: 100 mg Famotidine (Pepcid Tab*) 40 mg PO BEDTIME [facility] Last Admin: 06/16/18 20:56 Dose: 40 mg Gabapentin (Neurontin Cap(*)) 100 mg PO 0800,1400,1700 [facility] Last Admin: 06/17/18 13:03 Dose: 100 mg Gabapentin (Neurontin Cap(*)) 300 mg PO BEDTIME [facility] Last Admin: 06/16/18 20:57 Dose: 300 mg Glimepiride (Glimepiride (Nf)) 4 mg PO DAILY [facility] Last Admin: 06/17/18 08:53 Dose: 4 mg Insulin Human Lispro (Humalog*) 0 units SUBCUT ACHS [facility]; Protocol Last Admin: 06/17/18 11:52 Dose: 3 units Lisinopril (Prinivil Tab*) 20 mg PO BEDTIME [facility] Last Admin: 06/16/18 20:57 Dose: 20 mg Multivitamins (Theragran Tab*) 1 tab PO DAILY [facility] Last Admin: 06/17/18 08:53 Dose: 1 tab Nystatin (Nystatin Top Powder*) 1 applic TOPICAL TID [facility] Last Admin: 06/17/18 14:37 Dose: 1 applic Polyethylene Glycol/Electrolytes (Miralax*) 17 gm PO DAILY PRN PRN Reason: CONSTIPATION Last Admin: 06/15/18 13:09 Dose: 17 gm - Discharge Plan Discharge Plan: Outpatient Follow Up Outpatient Program: [facility]
[2018-06-17] MEDS: Atorvastatin* 80 MG TAB PO SCH (16:51)
[2018-06-17] MEDS: Gabapentin CAP(*) 300 MG PO SCH (20:47)
[2018-06-17] MEDS: Clopidogrel TAB* 75 MG PO SCH (20:47)
[2018-06-17] MEDS: Famotidine TAB* 20 MG PO SCH (20:48)
[2018-06-17] MEDS: Lisinopril TAB* 10 MG PO SCH (20:48)
[2018-06-17] MEDS: Diltiazem CD CAP* 120 MG PO SCH (20:48)
[2018-06-18] MEDS: Insulin LISPRO* 1 UNITS UNIT SUBCUT SCH ×4 (08:50→22:29)
[2018-06-18] MEDS: Carvedilol TAB* 6.25 MG PO SCH ×2 (08:51→20:43)
[2018-06-18] MEDS: Calcium/Vitamin D TAB 250/125* TAB PO SCH (08:51)
[2018-06-18] MEDS: Vitamin THERAPEUTIC TAB PO SCH (08:51)
[2018-06-18] MEDS: CMC:Glimepiride (NF) 2 MG TAB PO SCH (08:52)
[2018-06-18] MEDS: Desvenlafaxine (NF) 50 MG TAB PO SCH (08:52)
[2018-06-18] MEDS: Docusate CAP* 100 MG PO SCH ×2 (08:52→20:43)
[2018-06-18] MEDS: Divalproex ER TAB(*) 500 MG PO SCH ×2 (08:53→20:43)
[2018-06-18] MEDS: Gabapentin CAP(*) 100 MG PO SCH ×3 (08:55→18:11)
[2018-06-18] MEDS: Nystatin TOP POWDER* 15 GM BTL TOPICAL SCH ×3 (08:56→20:44)
[2018-06-18] MEDS: clonazePAM TAB(*) 0.5 MG PO PRN (08:56)
--- NOTE | 2018-06-18 13:11 | PN ---
Subjective - Subjective Date of Service: 06/18/18 Service Type: 80367 Hosp care 25 min moderate complexity Subjective: Patient was seen by self, discussed with treatment team, chart was reviewed. Patient has been compliant with her medications, no reported side effects. Patient reports feeling better when she knows that he daughter is back ot home from her weekend holidays. Patient was again educated about separation anxiety with her daughter and coping strategies to work on that. Patient has been working on her premature coping strategies and defenses and will continue to work with a therapist. Patient was apprehensive was educated about arrangements to support her out in the community. Patient behavior has been in control. Patient sleeping has been better. Patient eating has been fair. Patient ambulates with a walker on the unit. Patient mood was more stable. Patient was again given psychoeducation around Clonazepam and approaching anxiety through safer medication to avoid adverse reaction due to pre existing COPD and Sleep Apnea. Patient has been reporting no suicidal and homicidal ideation. Patient was able to communicate with her family over the phone to help with her anxiety. Patient is attending therapy and taking notes. Objective - Appearance Appearance: Healthy Appearing, Obese Dysmorphic Features: No Hygiene: Normal Grooming: Fairly Well Kept - Behavior Psychomotor Activities: Normal Exhibits Abnormal Movement: No - Attitude and Relatedness Attitude and Relatedness: Cooperative Eye Contact: Fair - Speech Quality: Unpressured Latencies: Normal Quantity: Terse - Mood Patient's Decription of Mood: "Anxious" - Affect Observed Affect: Depressed Affect Consistent with: Dysphoria - but reactive - Thought Process Patient's Thought Process: Coherent Thought Content: No Passive Wish, No Suicidal Planning, No Homicidal Ideation, No Paranoid Ideation - Sensorium Experiencing Hallucinations: No, Sensorium is Clear Type of Hallucinations: Visual: No, Auditory: No, Command: No - Level of Consciousness Level of Consciousness: Alert Orientation: Yes Intact, Yes Orientated to Time, Yes Orientated to Place, Yes Orientated to Person - Impulse Control Impulse Control: Intact - Insight and Judgement Insight and Judgement: Fair - Group Participation Particating in Group Activities: Yes - Medication Management Medication Management Adherence: Yes Assessment - Assessment Merits Inpatient Hospitalization: For Immediate Safety, For Stabilization, For Discharge Planning Inpatient DSM-V Dx: F31.9 Clinical Impression: Dk is a 57 y.o. female with multiple medical comorbidities was brought to [facility] by ambulance due to suicidal ideation. She was feeling like a burden on her family due to her inability to care for herself and needing her familys assistance. Patient had been able to stockpile a stash and intended to take these to end her life. Patient has previous admissions to [facility] for depression and suicidal ideation. Patient has at least one serious suicide attempt by overdose. Patient felt that she is unsafe and would benefit from inpatient care. Stabilizing in this structured setting, with lower distress level, improving mood, absence of suicidal ideation. Tolerating Pristiq, Klonopin with no adverse effects. Plan - Plan Treatment Plan: Name: DK GREEN Birthdate: 1960 [id number] - Patient continues to be hospitalized due to recent impulsive suicidal thoughts and intent with interrupted attempt, depression, anxiety and impulsivity. - Patient's medications were adjusted after informed consent with continuation of her Pristiq [id number] QAm and address depression, suicidal thoughts and anxiety. Klonopin was discontinued and educated to use benadryl in the hospital or use other learned coping strategies to help her anxiety in moment of distress. Patient was instructed to use CPAP and BiPAP instead of any medications and if needed use Benadryl PRN for sleep. Continue with other medications. - Patient will be monitored for improvement and side effects. Risk and benefits were discussed. - Patient was encouraged to continue his participation in the milieu, group and individual therapy. Medications: Current Medications Acetaminophen (Tylenol Tab*) 650 mg PO Q4H PRN PRN Reason: PAIN/FEVER Last Admin: 06/17/18 13:03 Dose: 650 mg Atorvastatin Calcium (Lipitor*) 80 mg PO 1700 [facility] B[facility]S [facility] Last Admin: 06/17/18 16:51 Dose: 80 mg Calcium/Vitamin D (Oscal D Tab 250/125*) 1 tab PO DAILY [facility]S [facility] Last Admin: 06/18/18 08:51 Dose: 1 tab Carvedilol (Coreg Tab*) 6.25 mg PO BID [facility] 234 B[facility]S [facility] Last Admin: 06/18/18 08:51 Dose: 6.25 mg Clopidogrel Bisulfate (Plavix Tab*) 75 mg PO BEDTIME [facility] 234 B[facility]S [facility] Last Admin: 06/17/18 20:47 Dose: 75 mg Desvenlafaxine Succinate (Pristiq (Nf)) 150 mg PO DAILY [facility] 234 [facility]S [facility] Last Admin: 06/18/18 08:52 Dose: 150 mg Dextrose (D50w Syringe 50 Ml*) 12.5 gm IV PUSH .FOR FS < 60 - SS PRN PRN Reason: FS < 60 Diltiazem HCl (Cardizem Cd Cap*) 120 mg PO BEDTIME [facility]S [facility] Last Admin: 06/17/18 20:48 Dose: 120 mg Diphenhydramine HCl (Benadryl Po*) 25 mg PO Q6H PRN PRN Reason: INSOMNIA Divalproex Sodium (Depakote Er Tab(*)) 1,000 mg PO BID [facility] 234 [facility]S [facility] Last Admin: 06/18/18 08:53 Dose: 1,000 mg Docusate Sodium (Colace Cap*) 100 mg PO BID [facility] 234 B[facility]S [facility] Last Admin: 06/18/18 08:52 Dose: 100 mg Famotidine (Pepcid Tab*) 40 mg PO BEDTIME [facility] 234 BEDS [facility] Last Admin: 06/17/18 20:48 Dose: 40 mg Gabapentin (Neurontin Cap(*)) 100 mg PO 0800,1400,1700 [facility] 234 [facility]S [facility] Last Admin: 06/18/18 08:55 Dose: 100 mg Gabapentin (Neurontin Cap(*)) 300 mg PO BEDTIME [facility] 234 [facility]S [facility] Last Admin: 06/17/18 20:47 Dose: 300 mg Glimepiride (Glimepiride (Nf)) 4 mg PO DAILY [facility] 234 [facility]S [facility] Last Admin: 06/18/18 08:52 Dose: 4 mg Insulin Human Lispro (Humalog*) 0 units SUBCUT ACHS [facility] 234 BEDS [facility]; Protocol Last Admin: 06/18/18 08:50 Dose: 6 units Lisinopril (Prinivil Tab*) 20 mg PO BEDTIME [facility] 234 [facility]S [facility] Last Admin: 06/17/18 20:48 Dose: 20 mg Multivitamins (Theragran Tab*) 1 tab PO DAILY [facility]S [facility] Last Admin: 06/18/18 08:51 Dose: 1 tab Nystatin (Nystatin Top Powder*) 1 applic TOPICAL TID [facility] 234 [facility]S [facility] Last Admin: 06/18/18 08:56 Dose: 1 applic Polyethylene Glycol/Electrolytes (Miralax*) 17 gm PO DAILY PRN PRN Reason: CONSTIPATION Last Admin: 06/15/18 13:09 Dose: 17 gm
[2018-06-18] MEDS: Acetaminophen TAB* 325 MG PO PRN (14:11)
[2018-06-18 15:52] LABS: Urine Appearance Clear; Urine Blood 1+ (Negative); Urine Color Yellow; Urine Ketones Trace (Negative); Urine Protein Negative (Negative); Urine Red Blood Cell Trace(0-2/hpf) (Absent); Urine Specific Gravity 1.009 (1.010-1.030); Urine Urobilinogen Negative (Negative); Urine White Blood Cell 2+(11-20/hpf) (Absent)
[2018-06-18] MEDS: Atorvastatin* 80 MG TAB PO SCH (18:11)
[2018-06-18] MEDS: Famotidine TAB* 20 MG PO SCH (20:42)
[2018-06-18] MEDS: Gabapentin CAP(*) 300 MG PO SCH (20:42)
[2018-06-18] MEDS: Lisinopril TAB* 10 MG PO SCH (20:43)
[2018-06-18] MEDS: Diltiazem CD CAP* 120 MG PO SCH (20:43)
[2018-06-18] MEDS: Clopidogrel TAB* 75 MG PO SCH (20:43)
[2018-06-19 07:57] VITALS: BP 158/62
[2018-06-19] MEDS: Insulin LISPRO* 1 UNITS UNIT SUBCUT SCH ×2 (08:24→12:50)
[2018-06-19] MEDS: Acetaminophen TAB* 325 MG PO PRN (09:02)
[2018-06-19] MEDS: Vitamin THERAPEUTIC TAB PO SCH (09:03)
[2018-06-19] MEDS: Divalproex ER TAB(*) 500 MG PO SCH (09:03)
[2018-06-19] MEDS: Docusate CAP* 100 MG PO SCH (09:03)
[2018-06-19] MEDS: Calcium/Vitamin D TAB 250/125* TAB PO SCH (09:04)
[2018-06-19] MEDS: CMC:Glimepiride (NF) 2 MG TAB PO SCH (09:04)
[2018-06-19] MEDS: Carvedilol TAB* 6.25 MG PO SCH (09:04)
[2018-06-19] MEDS: Nystatin TOP POWDER* 15 GM BTL TOPICAL SCH (09:05)
[2018-06-19] MEDS: Desvenlafaxine (NF) 50 MG TAB PO SCH (09:05)
[2018-06-19] MEDS: Gabapentin CAP(*) 100 MG PO SCH (09:09)
--- NOTE | 2018-06-19 14:21 | DS ---
Subjective - Subjective Service Types: 75141 [facility] simple under 30 min Discharge Date: 06/19/18 Subjective: JUSTIFICATION FOR ADMISSION: Patient presented to emergency room with suicidal ideation and impulsive intent to attempt, worsening depression, feelings of being a burden. She requires inpatient psychiatric admission in order to provide treatment and stabilization as she is a danger to herself. CHIEF COMPLAINT: "I feel like a burden to my family HISTORY OF THE PRESENT ILLNESS: Patient is a 57 y/o female, living with her daughter, unemployed and on disability, with history of Bipolar disorder and Borderline personality Disorder. Patient was admitted to inpatient unit for worsening of her depression , feelings of hopelessness, helplessness and worthlessness and was having suicidal thoughts and intended to overdose on her medications. Patient messaged her daughter who communicated that to her fiance that happened to be at home and took possession of patient's medications. When daughter returned home had some further arguments and patient still had some packs of Saphris that she impulsively wanted to take and was stopped by her daughter and brought to the hospital. Patient on the morning that she presented to ED, had a conflict with her daughter of staying with her at home but she left. Patient reportedly was in distress due to 06/12 as she happened to be in [facility] during that time. Patient has been compliant with her medications and following outpatient and is being helped by her daughter to manage her medications. Patient reportedly has been feeling worthless and helpless with feelings of being burden to the family. Patient reports no manic symptoms. Patient reports no psychotic symptoms. Patient denied any suicidal or homicidal ideation on the unit. Patient continued to exhibit behavior that is in control and following staff redirection. patient was encouraged to participate in therapy be compliant with her medications on the unit. PAST PSYCHIATRIC HISTORY: The patient has had multiple previous psychiatric hospitalizations including 3 in [facility] and approximately 10 at [facility]. She has frequent mental health evaluations in the emergency room wherein she was not admitted, as well. Her first psychiatric hospitalization was in [facility] when she was 20 years old. She was diagnosed with bipolar disorder. She goes to [facility]. Patient's psychotropic medications include alprazolam, Saphris, Pristiq, Depakote, gabapentin, and Wellbutrin. No access to fire arm reported. SUBSTANCE ABUSE HISTORY: Patient reports no substance or alcohol abuse. Urine toxicology was negative. 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 ALLERGIES: Nitrofurantoin, Meperidine, Clavulanic acid, Morphine FAMILY PSYCHIATRIC HISTORY: There is a history of depression in her family. She has a maternal uncle with a diagnosis of bipolar and her eldest daughter, Gabriella, suffers from anxiety. no reported suicide in the family. FAMILY/PSYCHOSOCIAL HISTORY: The patient was born and raised in [place]. 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 She has an undergraduate degree in Dutch from [employer] in [place] and a master's degree from [employer]. She moved to [facility] around 2008. Has 2 daughters, Gabriella and debra, who are adults. Patient's daughter Gabriella recently moved to [place]. Patient reports her relationship has been better with her daughter since she moved to [place] and speak to her nearly every day. Patient currently live with her other daughter Debra. Patient reports that they have some conflict at times but other enriquez patient craves for her. The patient reports that she quit smoking in 2004. She denies a history of alcohol or substance use. The patient lives in an apartment and receives disability. Patient reports getting about 42 hours of home health aide services at home. REVIEW OF SYSTEMS: Patients review of symptoms was negative for any physical complaint. But patient has been agitated and unstable in his mood, refusing his vitals to be taken. Patients ED physical exam was reviewed which is grossly normal with no active medical problem. MENTAL STATUS EXAMINATION ON ADMISSION: Appearance: 57 y/o obese female, making fair eye contact, ambulating by foot, fair hygiene and grooming. Behavior: Gait: steady but some shuffling, uses walker at home Abnormal motor activity: none Speech: normal tone and volume, normal rate and rhythm Mood: "not good" Affect: depressed, but some reactivity from crying to smiling during the interview but appropriate to the content. Thought process: goal directed to circumstantial Thought Content: Suicidal/Homicidal ideation: denied at time of evaluation Delusions: none Obsessions: none Phobia: none Perceptual disturbance: none Attention: fair Orientation: grossly intact Concentration: limited Memory: fair Insight: fair Judgment: poor when in distress Impulse control: poor as per recent evidence DIAGNOSES ON ADMISSION: Bipolar Disorder, MRE Depressed; Borderline Personality Disorder, Impulse control Disorder, Sleep Apnea, COPD, Fungal Rash. DIAGNOSES ON Discharge: Separation Anxiety; Bipolar Disorder; Borderline Personality Disorder, Sleep Apnea, COPD, Fungal Rash Objective - Appearance Appearance: Obese Dysmorphic Features: No Hygiene: Normal Grooming: Fairly Well Kept - Behavior Psychomotor Activities: Normal Exhibits Abnormal Movement: No - Attitude and Relatedness Attitude and Relatedness: Cooperative Eye Contact: Fair - Speech Quality: Unpressured Latencies: Normal Quantity: Appropriate - Mood Patient's Decription of Mood: "Fine" - Affect Observed Affect: Fair Affect Consistent with: Euthymia - Thought Process Patient's Thought Process: Coherent Thought Content: No Passive Wish, No Suicidal Planning, No Homicidal Ideation, No Paranoid Ideation - Sensorium Experiencing Hallucinations: No, Sensorium is Clear Type of Hallucinations: Visual: No, Auditory: No, Command: No - Level of Consciousness Level of Consciousness: Alert Orientation: Yes Intact, Yes Orientated to Time, Yes Orientated to Place, Yes Orientated to Person - Impulse Control Impulse Control: Intact - Insight and Judgement Insight and Judgement: Fair - Group Participation Particating in Group Activities: Yes - Medication Management Medication Management Adherence: Yes Treatment Course & Assessment Clinical Course & Impression: Jewels is a 57 y.o. female with multiple medical comorbidities was brought to [facility] by ambulance due to suicidal ideation. She was feeling like a burden on her family due to her inability to care for herself and needing her familys assistance. Patient had been able to stockpile a stash and intended to take these to end her life. Patient has previous admissions to [facility] for depression and suicidal ideation. Patient has at least one serious suicide attempt by overdose. Patient felt that she was unsafe at home and would benefit from inpatient care. Patient was admitted to [facility] on Q 15 min observation. Patient was on voluntary admission status. Patient was integrated into the milieu, individual and group psychotherapy. laundry worker was consulted for therapy and discharge planning and supportive services. Patient gave informed consent to continue her current medications and Saphris/Wellbutrin were discontinued, will obtain Valproic acid level for now. Patient was observed for any further changes needed in her medications. Patient's medical conditions were discussed with Dr. Morocho patient registration representative, was continued with 2L O2 as need by patient. Patient was also started n Bipap/ Cpap 14/06 and Nystatin Powder TID to address fungal rash. Patient was monitored and followed up for improvement and side effects. Patient from the beginning for was attentive and participating in group, and remained in good behavioral control. Patient expressed positive insights regarding relevant treatment interventions. Patient was also compliant with her medications, no reported side effects. During initial part of hospitalization patient reported continued depressive symptoms and suicidal thoughts but not intent or attempt as feel safe in the hospital. Patient was cooperative with staff and behavior was in control and requested Q30 and comfort room which was granted. Patient mood was anxious and dysphoric and also requested to be given her Clonazpepam. Patient was given psychoeducation around Clonazepam and approaching anxiety through safer coping strategies and medication to avoid adverse reaction due to pre existing COPD and Sleep Apnea. Patient's medications were adjusted after informed consent with addition and increment of her Pristiq [id number] QAM to address depression, suicidal thoughts and anxiety. Patient although was started on low dose Klonopin prn for benzodiazepine withdrawal. Patient continued to be active in therapy and was attentive and participatory in CBT programming and expressed positive insights regarding relevant treatment interventions and goals. Patient reported feeling depressed but when explored further patient was going through separation anxiety with her daughter leaving home over the weekend that triggered her suicidal thoughts. Patient has premature coping strategies and defenses to address that and worked with therapy on the unit. Patient reported relapse in suicidal thoughts again when her daughter told her that she will not be able to visit her in the hospital. Patient was given supportive and brief cbt to help use mature coping strategies to address her depression and anxiety. Patient behavior was in control and requested computer access as she wanted to read email from her religion. Patient had OT and PT on the unit and was recommended to have certaing supportive services at home to help her more independent. Patient ambulated with a walker on the unit. Patient was adherent to unit's routines was stabilizing in this structured setting, with lower distress level, improving mood, absence of suicidal ideation. Patient reported feeling better when she knows that he daughter is back at home from her weekend holiday. Patient was again educated about separation anxiety with her daughter and coping strategies to work on that. Patient was apprehensive was educated about arrangements to support her out in the community. Patient sleeping was better. Patient eating has been fair. Patient mood was more stable. Patient was again given psychoeducation around Clonazepam and approaching anxiety through safer coping strategies other than masking symptoms with medications and avoid adverse reaction due to pre existing COPD and Sleep Apnea. Patient was reporting no suicidal and homicidal ideation. Patient was able to communicate with her family over the phone to help with her anxiety. Patient was attending therapy and taking notes. Patient was doing well, taking care of her needs, mood was stable, behavior and anxiety was in better control, was not a danger to self and others, denied any si. hi, was not manic or psychotic. Patient was discussed with team and was discharged with plan to follow up outpatient program [facility] and more support services were arranged on discharge including VNS and Home [facility]. Merits Inpatient Hospitalization: No Clear for Discharge: Adequate Clinical Respons, Acceptable Safety Profile, Low Utility of Inpt Care Inpatient DSM-V Dx: F31.9 Discharge Planning - Discharge Planning Discharge Plan: Outpatient Follow Up - [facility] Recommendations for Continuing Care: Medication Management, Psychotherapy Medications: Current Medications Atorvastatin Calcium (Lipitor*) 80 mg PO 1700 [facility] Last Admin: 06/18/18 18:11 Dose: 80 mg Carvedilol (Coreg Tab*) 6.25 mg PO BID [facility] Last Admin: 06/19/18 09:04 Dose: 6.25 mg Clopidogrel Bisulfate (Plavix Tab*) 75 mg PO BEDTIME [facility] Last Admin: 06/18/18 20:43 Dose: 75 mg Desvenlafaxine Succinate (Pristiq (Nf)) 150 mg PO DAILY [facility] Last Admin: 06/19/18 09:05 Dose: 150 mg Diltiazem HCl (Cardizem Cd Cap*) 120 mg PO BEDTIME [facility] Last Admin: 06/18/18 20:43 Dose: 120 mg Diphenhydramine HCl (Benadryl Po*) 25 mg PO QPM PRN PRN Reason: INSOMNIA/anxiety Last Admin: 06/18/18 20:59 Dose: 25 mg Divalproex Sodium (Depakote Er Tab(*)) 1,000 mg PO BID [facility] Last Admin: 06/19/18 09:03 Dose: 1,000 mg Docusate Sodium (Colace Cap*) 100 mg PO BID [facility] Last Admin: 06/19/18 09:03 Dose: 100 mg Famotidine (Pepcid Tab*) 40 mg PO BEDTIME [facility] Last Admin: 06/18/18 20:42 Dose: 40 mg Gabapentin (Neurontin Cap(*)) 100 mg PO 0800,1400,1700 [facility] Last Admin: 06/19/18 09:09 Dose: 100 mg Gabapentin (Neurontin Cap(*)) 300 mg PO BEDTIME [facility] Last Admin: 06/18/18 20:42 Dose: 300 mg Glimepiride (Glimepiride (Nf)) 4 mg PO DAILY [facility] Last Admin: 06/19/18 09:04 Dose: 4 mg Lisinopril (Prinivil Tab*) 20 mg PO BEDTIME [facility] Last Admin: 06/18/18 20:43 Dose: 20 mg Multivitamins (Theragran Tab*) 1 tab PO DAILY [facility] Last Admin: 06/19/18 09:03 Dose: 1 tab Nystatin (Nystatin Top Powder*) 1 applic TOPICAL TID [facility] Last Admin: 06/19/18 09:05 Dose: 1 applic Patient also to resume her daily supplement at home of calcium, vit D3, respiratory treatment and liraglutide Discharge Planning: Prescriptions provided for discharge [x] Yes [] No Follow up care details as per social work arrangements. Patient response to discharge plan: [x] eager for discharge [] agreeable with discharge plan [] ambivalent about discharge [] disagrees with discharge today
== END 2018-06-19 15:37 | disposition home or self-care (01) | DRG 885 ==
LOC: ED 21:23 → BSU 06-13 00:40
PROVIDERS: ADMIT Psychiatry & Neurology Psychiatry; ATTEND Psychiatry & Neurology Psychiatry
DX: F31.9 Bipolar disorder, unspecified (principal); B49 Unspecified mycosis; Z68.42 Body mass index [BMI] 45.0-49.9, adult; R45.851 Suicidal ideations; I50.9 Heart failure, unspecified; I11.0 Hypertensive heart disease with heart failure; E66.01 Morbid (severe) obesity due to excess calories; E11.9 Type 2 diabetes mellitus without complications; F93.0 Separation anxiety disorder of childhood; F60.3 Borderline personality disorder; J44.9 Chronic obstructive pulmonary disease, unspecified; Z86.73 Personal history of transient ischemic attack (TIA), and cerebral infarction without residual deficits; K21.9 Gastro-esophageal reflux disease without esophagitis; E78.5 Hyperlipidemia, unspecified; G47.33 Obstructive sleep apnea (adult) (pediatric); Z86.718 Personal history of other venous thrombosis and embolism; Z88.5 Allergy status to narcotic agent; Z88.8 Allergy status to other drugs, medicaments and biological substances; Z81.8 Family history of other mental and behavioral disorders; R07.89 Other chest pain
CPT/HCPCS: 36415; 71045; 80053; 80061; 80164; 80307; 80320; 80329; 81003; 81015; 82550; 82553; 83036; 83605; 83690; 83735; 83880; 84443; 84484; 85025; 85379; 85610; 85730; 86140; 87086; 90686; 90853; 93005; 94660; 96374; 96375; 99222; 99231; 99232; 99282; 99284; A9270-GY; G0480; G8978-GP-CI; G8979-GP-CI; G8980-GP-CI; G8987-GO-CJ; G8987-GO-CK; G8988-GO-CJ; G8989-GO-CJ; J1885; J2405; J3010

== ENCOUNTER 2018-06-26 18:19 | Emergency (ER) | payer MEDICARE, MEDICAID ==
[2018-06-26] MEDS ORDERED: NS 0.9% 1000 ML* 1,000 ML IV ONE (20:51)
[2018-06-26] MEDS ORDERED: Metoclopramide IV* 5 MG/ML 2 ML VIAL IV SLOW PU ONE (20:52)
[2018-06-26 21:08] LABS: Urine Appearance Clear; Urine Color Yellow; Urine Ketones NEG (Negative); Urine Specific Gravity 1.015 (1.010-1.030); Urine Urobilinogen NEG (Negative)
[2018-06-26 21:09] LABS: Urine Blood NEG (Negative); Urine Protein 1+(30 mg/dL) (Negative)
[2018-06-26 21:22] LABS: ABS Basophils 0.1 10^3/ul (0-0.2); ABS Eosinophils 0.1 10^3/ul (0-0.6); ABS Lymphocytes 3.9 10^3/ul (1.0-4.8); ABS Monocytes 0.9 10^3/ul (0-0.8); ABS Neutrophils 6.2 10^3/ul (1.5-7.7); ABS Nucleated RBC 0 10^3/ul; Hematocrit 43 % (35-47); Hemoglobin 14.4 g/dl (12.0-16.0); Lymphocyte % 34.6 % (25-47); Mean Corpuscular HGB Conc 34 g/dl (31-36); Mean Corpuscular Hemoglobin 28 pg (27-31); Mean Corpuscular Volume 85 fL (80-97); Mean Platelet Volume 8.6 um3 (7.4-10.4); Nucleated Red Blood Cells % 0.3; Platelet Count 223 10^3/ul (150-450); Red Blood Count 5.09 10^6/ul (4.00-5.40); Red Cell Distribution Width 18 % (10.5-15); White Blood Count 11.2 10^3/ul (3.5-10.8)
[2018-06-26 21:38] LABS: EGFR Non-African American 77.8 (>60)
--- NOTE | 2018-06-26 21:57 | ED ---
Abdominal Pain/Female - HPI Summary HPI Summary: Patient is a 57 y/o F w/ c/o diarrhea for the past three days and nausea and dizziness onsetting today. Patient also reports experiencing lower abdominal pain, diaphoresis, and chills. On triage, pain is rated 8/10, nothing is noted to aggravate/alleviate Sx. Patient has emphysema and is on O2 at home. She denies blood in stool. Home medications and allergies reviewed. - History of Current Complaint Chief Complaint: EDNauseaVomitDiarrh Stated Complaint: N/D/DIZZINESS Time Seen by Provider: 06/26/18 20:40 Hx Obtained From: Patient Hx Last Menstrual Period: not since 2009 Onset/Duration: Lasting Days - diarrhea past three days, nausea and vomiting onset today, Still Present Timing: Constant Severity Currently: Severe - 8/10 Pain Intensity: 8 Pain Scale Used: 0-10 Numeric - 8/10 Location: Diffuse - lower abdomen Aggravating Factor(s): Nothing Alleviating Factor(s): Nothing Associated Signs and Symptoms: Positive: Dizzy, Nausea, Diarrhea. Negative: Blood in Stool Allergies/Adverse Reactions: Allergies Allergy/AdvReac Type Severity Reaction Status Date / Time nitrofurantoin Allergy Severe Rash Verified 05/21/18 10:20 meperidine Allergy Intermediate Headache Verified 05/21/18 10:20 clavulanic acid AdvReac Intermediate Nausea And Verified 05/21/18 10:20 Vomiting morphine AdvReac Intermediate Nausea Verified 05/21/18 10:20 PMH/Surg Hx/FS Hx/Imm Hx Endocrine/Hematology History: Reports: Hx Diabetes, Other Endocrine/ Hematological Disorders Denies: Hx Blood Disorders - blood clots, Hx Thyroid Disease, Hx Anemia, Hx Unexplained Bleeding Cardiovascular History: Reports: Hx Cardiac Arrest, Hx Congestive Heart Failure , Hx Hypercholesterolemia, Hx Hypertension, Other Cardiovascular Problems/ Disorders - Moyamoya syndrome Denies: Hx Aneurysm, Hx Angina, Hx Angioplasty, Hx Auto Implanted Cardiovert Defib, Hx Cardiomegaly, Hx Congenital Heart Disease, Hx Coronary Artery Disease , Hx Deep Vein Thrombosis, Hx Embolism, Hx Hypotension, Hx Myocardial Infarction , Hx Pacemaker/ICD, Hx Peripheral Vascular Disease, Hx Rheumatic Fever, Hx Syncope, Hx Valvular Heart Disease Respiratory History: Reports: Hx Asthma, Hx Chronic Bronchitis, Hx Chronic Obstructive Pulmonary Disease (COPD) - 3L O2 at home, Hx Pneumonia, Hx Sleep Apnea, Other Respiratory Problems/Disorders - PNEUMONIA IN 2001 Denies: Hx Cystic Fibrosis, Hx Lung Cancer, Hx Pleural Effusion, Hx Pulmonary Edema, Hx Pulmonary Embolism, Hx Seasonal Allergies GI History: Reports: Hx Gastroesophageal Reflux Disease, Other GI Disorders - "sphincter in stomach not working" Denies: Hx Cirrhosis, Hx Crohn's Disease, Hx Diverticulosis, Hx Gall Bladder Disease, Hx Gastrointestinal Bleed, Hx Hiatal Hernia, Hx Irritable Bowel, Hx Jaundice, Hx Obstructive Bowel, Hx Ileostomy, Hx Pyloric Stenosis, Hx Ulcer History: Reports: Hx Acute Renal Failure, Hx Renal Disease Denies: Hx Benign Prostatic Hyperplasia, Hx Chronic Renal Failure, Hx Dialysis, Hx Kidney Infection, Hx Kidney Stones, Other Problems/Disorders Musculoskeletal History: Reports: Hx Arthritis, Hx Back Problems, Hx Orthopedic Injury, Hx Scoliosis Denies: Hx Bursitis, Hx Congenital Bone Abnormalities, Hx Fibromyalgia, Hx Gout, Hx Osteoporosis, Hx Tendonitis, Other Musculoskeletal History Sensory History: Reports: Hx Contacts or Glasses, Hx Vision Problem Denies: Hx Cataracts, Hx Eye Injury, Hx Hearing Aid, Hx Hearing Problem, Other Sensory Impairments Opthamlomology History: Reports: Hx Contacts or Glasses, Hx Vision Problem Denies: Hx Cataracts, Hx Eye Injury, Other Sensory Impairments Neurological History: Reports: Hx Headaches, Hx Migraine, Hx Nerve Disease, Hx Seizures, Hx Transient Ischemic Attacks (TIA), Other Neuro Impairments/ Disorders - Hx moyamoya disease. 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 X2. endarterectomy-left internal carotid- STENT PLACED. INTERCRANIAL BYPASS X2 IN [place]. APPENDIX. ENDOMETRIAL ABLATION Hx Anesthesia Reactions: No - Immunization History Date of Tetanus Vaccine: unk Date of Influenza Vaccine: 06/18 Infectious Disease History: No Infectious Disease History: Reports: Hx Clostridium Difficile Denies: Hx Hepatitis, Hx Human Immunodeficiency Virus (HIV), Hx of Known/ Suspected MRSA, Hx Shingles, Hx Tuberculosis, Hx Known/Suspected VRE, Hx Known/ Suspected VRSA, History Other Infectious Disease, Traveled Outside the [place] in Last 30 Days - Family History Known Family History: Positive: Cardiac Disease, Other - bipolar disorder; alcohol abuse - Social History Alcohol Use: None Alcohol Amount: once/year Hx Substance Use: No Substance Use Type: Reports: None Hx Tobacco Use: Yes Smoking Status (MU): Former Smoker Type: Cigarettes Amount Used/How Often: quit in 2004 Have You Smoked in the Last Year: No Review of Systems Positive: Abdominal Pain - lower , Diarrhea, Nausea Positive: other - NEGATIVE: blood in stool Neurological: Other - dizziness All Other Systems Reviewed And Are Negative: Yes Physical Exam - Summary Physical Exam Summary: VITAL SIGNS: Reviewed. GENERAL: Patient is a well-developed and morbidly obese female who is lying comfortable in the stretcher. Patient is not in any acute respiratory distress. HEAD AND FACE: No signs of trauma. No ecchymosis, hematomas or skull depressions. No sinus tenderness. EYES: PERRLA, EOMI x 2, No injected conjunctiva, no nystagmus. EARS: Hearing grossly intact. Ear canals and tympanic membranes are within normal limits. MOUTH: Oropharynx within normal limits. NECK: Supple, trachea is midline, no adenopathy, no JVD, no carotid bruit, no c- spine tenderness, neck with full ROM. CHEST: Symmetric, no tenderness at palpation LUNGS: Clear to auscultation bilaterally. No wheezing or crackles. CVS: Regular rate and rhythm, S1 and S2 present, no murmurs or gallops appreciated. ABDOMEN: Soft, non-tender. Abdomen is distended. No rebound no guarding, and no masses palpated. Bowel sounds are hyperactive. EXTREMITIES: FROM in all major joints, no edema, no cyanosis or clubbing. NEURO: Alert and oriented x 3. No acute neurological deficits. Speech is normal and follows commands. SKIN: Dry and warm Triage Information Reviewed: Yes Vital Signs On Initial Exam: Initial Vitals Temp Pulse Resp BP Pulse Ox 97.4 F 84 19 150/69 98 06/26/18 18:35 06/26/18 18:35 06/26/18 18:35 06/26/18 18:35 06/26/18 18:35 Vital Signs Reviewed: Yes Diagnostics - Vital Signs Vital Signs Temp Pulse Resp BP Pulse Ox 06/26/18 21:21 22 117/69 06/26/18 18:35 97.4 F 84 19 150/69 98 - Laboratory Lab Results: Lab Results 06/26/18 06/26/18 06/26/18 Range/Units 18:43 21:11 21:11 WBC 11.2 H (3.5-10.8) 10^3/ul RBC 5.09 (4.00-5.40) 10^6/ul Hgb 14.4 (12.0-16.0) g/dl Hct 43 (35-47) % MCV 85 (80-97) fL MCH 28 (27-31) pg MCHC 34 (31-36) g/dl RDW 18 H (10.5-15) % Plt Count 223 (150-450) 10^3/ul MPV 8.6 (7.4-10.4) um3 Neut % (Auto) 55.2 (38-83) % Lymph % (Auto) 34.6 (25-47) % Bandera % (Auto) 8.3 H (0-7) % Eos % (Auto) 1.0 (0-6) % Baso % (Auto) 0.9 (0-2) % Absolute Neuts (auto) 6.2 (1.5-7.7) 10^3/ul Absolute Lymphs (auto) 3.9 (1.0-4.8) 10^3/ul Absolute Monos (auto) 0.9 H (0-0.8) 10^3/ul Absolute Eos (auto) 0.1 (0-0.6) 10^3/ul Absolute Basos (auto) 0.1 (0-0.2) 10^3/ul Absolute Nucleated RBC 0 10^3/ul Nucleated RBC % 0.3 Sodium 138 (135-145) mmol/L Potassium 4.8 (3.5-5.0) mmol/L Chloride 101 (101-111) mmol/L Carbon Dioxide 27 (22-32) mmol/L Anion Gap 10 (2-11) mmol/L BUN 11 (6-24) mg/dL Creatinine 0.77 (0.51-0.95) mg/dL Est GFR ( Amer) 94.2 (>60) Est GFR (Non-Af Amer) 77.8 (>60) BUN/Creatinine Ratio 14.3 (8-20) Glucose 115 H (70-100) mg/dL Calcium 10.0 (8.6-10.3) mg/dL Magnesium 2.1 (1.9-2.7) mg/dL Total Bilirubin 0.50 (0.2-1.0) mg/dL AST 21 (13-39) U/L ALT 29 (7-52) U/L Alkaline Phosphatase 55 (34-104) U/L C-Reactive Protein 3.05 (<8.01) mg/L Total Protein 7.5 (6.4-8.9) g/dL Albumin 4.5 (3.2-5.2) g/dL Globulin 3.0 (2-4) g/dL Albumin/Globulin Ratio 1.5 (1-3) Urine Color Yellow Urine Appearance Clear Urine pH 5 (5-9) Ur Specific [place] 1.015 (1.010-1.030) Urine Protein 1+(30 mg/dl) A (Negative) Urine Ketones Neg (Negative) Urine Blood Neg (Negative) Urine Nitrate Neg (Negative) Urine Bilirubin Neg (Negative) Urine Urobilinogen Neg (Negative) Ur Leukocyte Esterase 2+ A (Negative) Urine Glucose Neg (Negative) Urine Ascorbic Acid * A (Negative) Result Diagrams: 06/26/18 21:11 06/26/18 21:11 Lab Statement: Any lab studies that have been ordered have been reviewed, and results considered in the medical decision making process. Re-Evaluation - Re-Evaluation First Eval Re-Evaluation Time: 22:46 Comment: Discussed results of labs with patient; patient will be discharged to home, follow up care plan was discussed. Patient understands and is agreeable with this plan. Abdominal Pain Fem Course/Dx - Course Course Of Treatment: Patient is a 57 y/o F w/ c/o diarrhea for the past three days and nausea and dizziness onsetting today. Patient also reports experiencing lower abdominal pain, diaphoresis, and chills. On triage, pain is rated 8/10, nothing is noted to aggravate/alleviate Sx. Patient has emphysema and is on O2 at home. She denies blood in stool. On physical exam, patient is noted to be mordibly obese. She also has a distended abdomen, as well as hyperactive bowel sounds. During ED course, patient was given toradol, 30 mg IV PUSH, reglan 10 mg IV SLOW PU, and fluids. UA showed 1+(30 mg/dl) urine protein, 2+ urine leukocyte esterase, and ascorbic acid. WBC was 11.2, RDW 18. Discussed results of labs with patient; patient will be discharged to home, follow up care plan was discussed. Patient was given prescription for Metoclopramide TAB* [Reglan TAB*] 10 mg PO Q6H PRN #20 tab. Patient understands and is agreeable with this plan. Dx of gastroenteritis. - Diagnoses Provider Diagnoses: Gastroenteritis Discharge - Sign-Out/Discharge Documenting (check all that apply): Patient Departure - discharge - Discharge Plan Condition: Stable Disposition: HOME Prescriptions: Metoclopramide TAB* [Reglan TAB*] 10 mg PO Q6H PRN #20 tab PRN Reason: Nausea/Vomiting Patient Education Materials: Gastroenteritis (ED) Referrals: Ang Zelaya MD [Primary Care Provider] - 2 Days Additional Instructions: RETURN TO THE EMERGENCY DEPARTMENT FOR CHANGING OR WORSENING SYMPTOMS. FOLLOW UP WITH PCP IN 1-2 DAYS. - Attestation Statements Document Initiated by Scribe: Yes Documenting Scribe: Jaycob Zarate Provider For Whom Brittnee is Documenting (Include Credential): João Stout MD Scribe Attestation: Jaycob Michaels , scribed for João Stout MD on 06/26/18 at 2311.
[2018-06-26] MEDS ORDERED: Ketorolac INJ* 30 MG/ML 1 ML VIAL IV PUSH ONE (22:20)
[2018-06-26 22:47] LABS: Urine Red Blood Cell Absent (Absent); Urine White Blood Cell 3+(>20/hpf) (Absent)
[2018-06-26 23:08] VITALS: BP 142/70
== END 2018-06-26 23:11 | disposition home or self-care (01) ==
LOC: ED 18:19
DX: K52.9 Noninfective gastroenteritis and colitis, unspecified (principal); R42 Dizziness and giddiness; R19.7 Diarrhea, unspecified; Z87.891 Personal history of nicotine dependence; R10.30 Lower abdominal pain, unspecified; R11.0 Nausea
CPT/HCPCS: 36415; 80053; 81003; 81015; 83735; 85025; 86140; 87086; 96374; 96375; 99283; J1885; J2765

== ENCOUNTER → 2018-07-27 10:14 | Emergency (ER) | payer MEDICARE, MEDICAID ==
[~2018-07-27 10:14] MED LIST: Butalb/Acetamin/Caff TAB* 1 TAB ONE; Butalb/Acetamin/Caff TAB* 1 TAB PO ONE; Metoclopramide IV* 5 MG/ML 2 ML VIAL IV ONE; Metoclopramide IV* 5 MG/ML 2 ML VIAL IV SLOW PU ONE; Metoclopramide IV* 5 MG/ML 2 ML VIAL ONE; NS 0.9% 1000 ML* 1,000 ML IV ONE
--- NOTE | 2018-07-27 10:30 | ED ---
Neurological HPI - HPI Summary HPI Summary: The pt is a 57 y/o female presenting to [facility] c/o L sided weakness since 8.30 am today morning. She noticed new difficulty dressing when her aide came at 08: 30 am to make her breakfast. The pt reports confusion, and slurred speech. She is on Plavix. - History of Current Complaint Chief Complaint: EDNeurologicalDeficit Stated Complaint: CODE CRABTREE Time Seen by Provider: 07/27/18 10:16 Hx Obtained From: Patient Hx Last Menstrual Period: not since 2009 Onset/Duration: Sudden Onset, Still Present Number of Seizures: 0 Neurological Deficit Location: Facial Pain Intensity: 0 Pain Scale Used: 0-10 Numeric Character: Motor Weakness - L sided, Impaired Speech, Confusion - Additional Pertinent History Primary Care Physician: [id number] - Allergy/Home Medications Allergies/Adverse Reactions: Allergies Allergy/AdvReac Type Severity Reaction Status Date / Time nitrofurantoin Allergy Severe Rash Verified 05/21/18 10:20 meperidine Allergy Intermediate Headache Verified 05/21/18 10:20 clavulanic acid AdvReac Intermediate Nausea And Verified 05/21/18 10:20 Vomiting morphine AdvReac Intermediate Nausea Verified 05/21/18 10:20 Home Medications: Home Medications Albuterol 2.5MG/3ML (0.083%)* [Ventolin 2.5 MG/3 ML NEB.SANDEEP*] 2.5 mg INH Q6H PRN 07/27/18 [History Confirmed 07/27/18] Albuterol inh POWDER (NF) [Proair Respiclick] 2 puff INH Q6HR PRN 07/27/18 [ History Confirmed 07/27/18] Asenapine(NF) [Saphris(NF)] 10 mg SL BEDTIME 07/27/18 [History Confirmed ] Atorvastatin* [Lipitor*] 80 mg PO QPM 07/27/18 [History Confirmed 07/27/18] Bupropion XL* [Wellbutrin XL *] 150 mg PO QAM 07/27/18 [History Confirmed ] Carvedilol TAB* [Coreg TAB*] 6.25 mg PO BID 07/27/18 [History Confirmed 07/27/18 ] Desvenlafaxine (NF) [Pristiq (NF)] 150 mg PO QAM 07/27/18 [History Confirmed ] Diltiazem CD CAP* [Cardizem CD CAP*] 120 mg PO BEDTIME 07/27/18 [History Confirmed 07/27/18] Divalproex ER TAB(*) [Depakote ER TAB(*)] 1,000 mg PO BID 07/27/18 [History Confirmed 07/27/18] Ondansetron TAB* [Zofran 4 MG Tab*] 4 mg PO Q6H PRN 07/27/18 [History Confirmed 07/27/18] Pantoprazole TAB (NF) [Protonix TAB (NF)] 40 mg PO QAM 07/27/18 [History Confirmed 07/27/18] Ranitidine TAB (NF) [Zantac TAB (NF)] 300 mg PO BEDTIME 07/27/18 [History Confirmed 07/27/18] PMH/Surg Hx/FS Hx/Imm Hx Previously Healthy: No Endocrine/Hematology History: Reports: Hx Diabetes, Other Endocrine/ Hematological Disorders Denies: Hx Blood Disorders - blood clots, Hx Thyroid Disease, Hx Anemia, Hx Unexplained Bleeding Cardiovascular History: Reports: Hx Cardiac Arrest, Hx Congestive Heart Failure , Hx Hypercholesterolemia, Hx Hypertension, Other Cardiovascular Problems/ Disorders - Moyamoya syndrome Denies: Hx Aneurysm, Hx Angina, Hx Angioplasty, Hx Auto Implanted Cardiovert Defib, Hx Cardiomegaly, Hx Congenital Heart Disease, Hx Coronary Artery Disease , Hx Deep Vein Thrombosis, Hx Embolism, Hx Hypotension, Hx Myocardial Infarction , Hx Pacemaker/ICD, Hx Peripheral Vascular Disease, Hx Rheumatic Fever, Hx Syncope, Hx Valvular Heart Disease Respiratory History: Reports: Hx Asthma, Hx Chronic Bronchitis, Hx Chronic Obstructive Pulmonary Disease (COPD) - 3L O2 at home, Hx Pneumonia, Hx Sleep Apnea, Other Respiratory Problems/Disorders - PNEUMONIA IN 2001 Denies: Hx Cystic Fibrosis, Hx Lung Cancer, Hx Pleural Effusion, Hx Pulmonary Edema, Hx Pulmonary Embolism, Hx Seasonal Allergies GI History: Reports: Hx Gastroesophageal Reflux Disease, Other GI Disorders - "sphincter in stomach not working" Denies: Hx Cirrhosis, Hx Crohn's Disease, Hx Diverticulosis, Hx Gall Bladder Disease, Hx Gastrointestinal Bleed, Hx Hiatal Hernia, Hx Irritable Bowel, Hx Jaundice, Hx Obstructive Bowel, Hx Ileostomy, Hx Pyloric Stenosis, Hx Ulcer History: Reports: Hx Acute Renal Failure, Hx Renal Disease Denies: Hx Benign Prostatic Hyperplasia, Hx Chronic Renal Failure, Hx Dialysis, Hx Kidney Infection, Hx Kidney Stones, Other Problems/Disorders Musculoskeletal History: Reports: Hx Arthritis, Hx Back Problems, Hx Orthopedic Injury, Hx Scoliosis Denies: Hx Bursitis, Hx Congenital Bone Abnormalities, Hx Fibromyalgia, Hx Gout, Hx Osteoporosis, Hx Tendonitis, Other Musculoskeletal History Sensory History: Reports: Hx Contacts or Glasses, Hx Vision Problem Denies: Hx Cataracts, Hx Eye Injury, Hx Hearing Aid, Hx Hearing Problem, Other Sensory Impairments Opthamlomology History: Reports: Hx Contacts or Glasses, Hx Vision Problem Denies: Hx Cataracts, Hx Eye Injury, Other Sensory Impairments Neurological History: Reports: Hx Headaches, Hx Migraine, Hx Nerve Disease, Hx Seizures, Hx Transient Ischemic Attacks (TIA), Other Neuro Impairments/ Disorders - Hx moyamoya disease. 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 X2. endarterectomy-left internal carotid- STENT PLACED. INTERCRANIAL BYPASS X2 IN [place]. APPENDIX. ENDOMETRIAL ABLATION Hx Anesthesia Reactions: No - Immunization History Date of Tetanus Vaccine: unk Date of Influenza Vaccine: 06/18 Infectious Disease History: Reports: Hx Clostridium Difficile Denies: Hx Hepatitis, Hx Human Immunodeficiency Virus (HIV), Hx of Known/ Suspected MRSA, Hx Shingles, Hx Tuberculosis, Hx Known/Suspected VRE, Hx Known/ Suspected VRSA, History Other Infectious Disease - Family History Known Family History: Positive: Cardiac Disease, Other - bipolar disorder; alcohol abuse - Social History Occupation: Disabled Lives: With Family Alcohol Use: None Alcohol Amount: once/year Hx Substance Use: No Substance Use Type: Reports: None Hx Tobacco Use: Yes Smoking Status (MU): Former Smoker Type: Cigarettes Amount Used/How Often: quit in 2004 Have You Smoked in the Last Year: No Review of Systems Constitutional: Other - Positive: Confusion, slurred speech Positive: Weakness - L sided All Other Systems Reviewed And Are Negative: Yes Physical Exam - Summary Physical Exam Summary: GENERAL: Patient is a morbidly obese F who is lying comfortable in the stretcher. Patient is not in any acute respiratory distress. HEAD AND FACE: Normocephalic EYES: PERRLA, EOMI x 2. EARS: Hearing grossly intact. MOUTH: Oropharynx within normal limits. NECK: Supple, trachea is midline, no adenopathy, no JVD, no carotid bruit. CHEST: Symmetric, no tenderness at palpation LUNGS: Clear to auscultation bilaterally. No wheezing or crackles. CVS: Regular rate and rhythm, S1 and S2 present, no murmurs or gallops appreciated. ABDOMEN: Soft, non-tender. Bowel sounds are normal. No abdominal abnormal pulsations. EXTREMITIES: Full ROM in all major joints, no edema, no cyanosis or clubbing. NEURO: Alert and oriented x 3. See CAT Stroke Scale SKIN: Dry and warm GCS: 15 Triage Information Reviewed: Yes Vital Signs On Initial Exam: Initial Vital Signs Pulse 87 07/27/18 10:28 Resp 9 07/27/18 10:28 BP 129/55 07/27/18 10:28 Pulse Ox 94 07/27/18 10:28 Vital Signs Reviewed: Yes Diagnostics - Laboratory Result Diagrams: 07/27/18 10:47 07/27/18 10:47 Lab Statement: Any lab studies that have been ordered have been reviewed, and results considered in the medical decision making process. - Radiology CXR Radiology Interpretation Completed By: Radiologist - IMPRESSION: NO ACTIVE CARDIOPULMONARY DISEASE. The ED physician reviewed this radiology report. - CT Brain CT CT Interpretation Completed By: Radiologist - IMPRESSION: No intracranial mass or hemorrhage is noted. No changes noted since March. The ED physician reviewed this radiology report. - EKG 10:28 Cardiac Rate: NL - 85 bpm EKG Rhythm: Sinus Rhythm Summary of EKG Findings: L anterior fascicular block NIH Scale - NIH Scale Level of Consciousness: Alert/Keenly Responsive Ask Patient the Month and His/Her Age: Both Correct Ask Pt to Open/Close Eyes and Cider Press Operator/Release Non-Paretic Hand: Both Correctly Best Gaze (Only Horizontal Eye Movement): Normal Visual Field Testing: No Visual Loss Facial Paresis-Pt to Smile & Close Eyes or Grimace Symmetry: Normal/Symmetrical Motor Function - Right Arm: No Drift-Holds 10 Seconds Motor Function - Left Arm: Drifts LT 10 seconds Motor Function - Right Leg: No Drift-Holds 10 Seconds Motor Function - Left Leg: Drifts LT 10 seconds Limb Ataxia-Must be out of Proportion to Weakness Present: Absent Sensory (Use Pinprick to Test Arms/Legs/Trunk/Face): Normal Best Language (Describe Picture, Name Items): No Aphasia Dysarthria (Read Several Words): Normal Extinction and Inattention: No Abnormality Total Score: 2 Re-Evaluation - Re-Evaluation First Eval Re-Evaluation Time: 10:53 Change: Unchanged - Pt reports a headache Second Eval Re-Evaluation Time: 15:10 Change: Improved - The pt feels better and is ready for discharge Course/Dx - Course Course Of Treatment: A 57 year-old F presents to the ED with a CC of L sided weakness since 8.30 am today morning. She noticed new difficulty dressing when her aide came at 08:30 am to make her breakfast. The pt reports confusion, and slurred speech. A physical exam revealed L sided UE and LE weakness; NIH score = 2 at the initial time of accessment. An EKG reveals L anterior fascicular block. A brain CT is negative for intracranial mass or hemorrhage and is similar to one taken on March 2018. A CXR is unremarkable. Labs revealed chronic elevated lactic acid at 3.4. In the ED course, pt was given N.s 0.9% 1000mL IV, Butalb/Acetamin/Caff 1 tab PO twice, and Metoclopramide 20 mg IV which improved the symptoms. I discussed the results with Dr. Martin- neurologist who saw the pt in the ED and thinks she can be discharge home since see is now better and is already on Plavix. The patient will be discharged with a final Dx of headache. I discussed results with patient and she agrees with this plan. She is hemodynamically stable upon discharge. Strict return precautions given and she will otherwise follow up with her PCP. Allergies noted. - Diagnoses Provider Diagnoses: Headache During the Visit The Following Alert/Code Occurred: Code Erickson - At 10:09 - 3 minutes ETA - Physician Notifications Discussed Care Of Patient With: Raf Rogers - Neurologist Time Discussed With Above Provider: 10:34 Instructed by Provider To: MD Will See In ED Discharge - Sign-Out/Discharge Documenting (check all that apply): Patient Departure - DC - Discharge Plan Condition: Stable Disposition: HOME Patient Education Materials: Acute Headache (ED) Referrals: Ang Zelaya MD [Primary Care Provider] - Additional Instructions: Follow up with PCP in 1- 3 days. Return to ED for any new or worsening symptoms - Billing Disposition and Condition Condition: STABLE Disposition: Home - Attestation Statements Document Initiated by Scribe: Yes Documenting Scribe: Maria Antonia Pa Provider For Whom Brittnee is Documenting (Include Credential): Dr. Eleazar Costello MD Scribe Attestation: Maria Antonia Michaels , scrbennyed for Dr. Eleazar Costello MD on 07/27/18 at 2049. Scribe Documentation Reviewed: Yes Provider Attestation: The documentation as recorded by the Maria Antonia españa accurately reflects the service I personally performed and the decisions made by me, Dr. Eleazar Costello MD
--- NOTE | 2018-07-27 10:34 | RAD ---
Indication: Neurologic changes. CT of the brain performed without IV contrast. Ventricular structures are midline. No midline shift is noted. The extra-axial spaces are unremarkable. There is no evidence of intracranial mass or hemorrhage. No other high or low density lesions are identified. Patient is status post bilateral craniotomy. Mastoid air cells and paranasal sinuses are otherwise unremarkable. IMPRESSION: No intracranial mass or hemorrhage is noted. No changes noted since March 22, 2018. Findings discussed with Dr. Costello at 10:31 AM.
[2018-07-27 11:13] LABS: ABS Basophils 0 10^3/ul (0-0.2); ABS Eosinophils 0.1 10^3/ul (0-0.6); ABS Lymphocytes 2.6 10^3/ul (1.0-4.8); ABS Monocytes 0.5 10^3/ul (0-0.8); ABS Neutrophils 5.3 10^3/ul (1.5-7.7); ABS Nucleated RBC 0 10^3/ul; Eosinophil % 1.1 % (0-6); Hematocrit 38 % (35-47); Lymphocyte % 30.8 % (25-47); Mean Corpuscular HGB Conc 34 g/dl (31-36); Mean Corpuscular Hemoglobin 29 pg (27-31); Mean Corpuscular Volume 86 fL (80-97); Mean Platelet Volume 8.6 um3 (7.4-10.4); Nucleated Red Blood Cells % 0; Platelet Count 184 10^3/ul (150-450); Red Blood Count 4.47 10^6/ul (4.00-5.40); Red Cell Distribution Width 18 % (10.5-15); White Blood Count 8.5 10^3/ul (3.5-10.8)
--- NOTE | 2018-07-27 11:28 | RAD ---
HISTORY: Neurological Changes/Code Gonzalez COMPARISONS: June 10, 2018 VIEWS: 1: frontal AP view of the chest at 11:02 AM FINDINGS: LINES AND TUBES: None. CARDIOMEDIASTINAL SILHOUETTE: The cardiomediastinal silhouette is normal for portable technique. PLEURA: The costophrenic angles are sharp. No pleural abnormalities are noted. LUNG PARENCHYMA: The lungs are clear. ABDOMEN: The upper abdomen is clear. There is no subphrenic gas. BONES AND SOFT TISSUES: No bone or soft tissue abnormalities are noted. IMPRESSION: NO ACTIVE CARDIOPULMONARY DISEASE.
[2018-07-27 12:03] LABS: INR 1.08 (0.77-1.02)
--- NOTE | 2018-07-27 13:47 | CONS ---
CC: Dr. Calderón; Dr. Zelaya. NEUROLOGY CONSULTATION REPORT: DATE OF FOLLOWUP: 07/27/18 REFERRING PROVIDER: Dr. Costello. LOCATION: Emergency room bed 16. CHIEF COMPLAINT: Headache, left-sided weakness. HISTORY OF PRESENT ILLNESS: Jewels Sol is a 57-year-old right-handed woman known to me from prior evaluations in the hospital. She was at her mental health counselor's office today and complained o f left arm weakness. She said she woke up and was fine initially, but then had some bright spots in her left visual field or her left eye. That lasted about 15 to 20 minutes and was accompanied by a b ad bifrontal headache. The headache has persisted and the visual problems went away. She noted some weakness of her left arm and apparently the leg also. She presented to the emergency room. She was fine at about 8 o'clock when her symptoms first started. In the emergency room, she was noted to hav e left-sided weakness with variable effort. Her face was spared. A code zimmerman was called. She has had multiple episodes in the past of transient left arm shaking and left- sided weakness, whi ch resolved. EEG recordings during episodes were normal. She has Moyamoya disease and has had bilat eral extracranial to intracranial bypasses as well as a left carotid stent. One of the surgeries was apparently complicated by intracranial hemorrhage. PAST MEDICAL HISTORY: Her past medical history is notable for Moyamoya disease, bihemispheric surger ies as mentioned above, bipolar disorder with multiple psychiatric admissions, several suicide gestur es and attempts with overdoses, chest pain with negative cardiac evaluations. MEDICATIONS AT HOME: Consist of: 1. Plavix 75 mg p.o. daily. 2. Reglan 10 mg p.o. q.6 hours p.r.n. nausea. 3. Lisinopril 20 mg p.o. daily. 4. Victoza 1.8 mg subcutaneous daily. 5. Glimepiride 4 mg p.o. daily. 6. Gabapentin 300 mg p.o. q.h.s. and 100 mg p.o. t.i.d. 7. Depakote 1000 mg p.o. b.i.d. 8. Diltiazem 120 mg p.o. daily. 9. Pristiq 150 mg p.o. daily. 10. Coreg 6.25 mg p.o. b.i.d. 11. Lipitor 80 mg p.o. daily. ALLERGIES: She is listed as having allergies to NITROFURANTOIN, MEPERIDINE, CLAVULANIC ACID, and MOR PHINE. REVIEW OF SYSTEMS: Notable for left hip pain, no recent falls. No recent fevers or infections. She has a bad headache as described in the history of present illness. She has a history of migraines. She used to take Fioricet for her migraines, but overdosed on it, so it was removed from her medical regimen. SOCIAL HISTORY: She is a nonsmoker. Does not drink alcohol. Lives with her daughter. PHYSICAL EXAMINATION: On physical exam, she is morbidly obese. Her blood pressures 160/80 on the mo nitor, heart rates in the 70s and seem regular, respiratory rate is about 16. Neck is supple. Heart tones are distant, but I do not hear any murmurs. There is a left cervical bruit. There is a well healed left carotid endarterectomy scar. There are biparietal well-healed craniotomy scars. Neurolog ic Exam: Pupils react equally from 3 to 2 mm. Funduscopic exam reveals sharp discs bilaterally. Ey e movements are notable for some nystagmus and lateral gaze bilaterally. Visual franco are full to c onfrontation. Facial musculature is symmetric. Palate and tongue are normal, tongue protrudes in th e midline and palate rises symmetrically. There is no dysarthria. Sensory exam to pin and light touc h in the face is symmetrical. Motor exam reveals normal strength in the right arm and right leg. Th ere is variable give away weakness of the left arm and leg. When asking to raise the left leg off the bed, she holds that few inches off the bed. She then performed [id number] maneuver normally with the left leg. She has at least grade 4 strength in the left upper extremity proximally and distally, but with variable breakaway weakness. She is areflexic. Plantar responses are flexor. Sensory exam in the limbs is notable for relative decrease in light touch and pin in the left arm relative to the right. There is symmetrical sensation in the lower extremities. She is alert and smiling. Languag e is fluent. Memory seems relatively intact. NIH score is 3 based on left arm and left leg weakness as well as asymmetrical sensory perception in the limbs. IMPRESSION: My impression is that this is probably not a cerebrovascular event. Clearly, she is at s ignificant risk of cerebrovascular events, but she has had repetitive episodes of left-sided shaking or weakness, which resolve over time. Her exam looks functional. She is not a tPA candidate. She does not have a clear defined deficits that is likely due from cereb ral ischemia. She has a history of a brain hemorrhage. Recommend treating her headache, but not augmenting her antiplatelet therapy. We will just continue Plavix. If her symptoms resolve with treatment of her headache, then I think she could be discharged home on her usual medications. If symptoms persist, we may have to go ahead and get an MRI scan of the brain. [id number]/[facility] #: [id number]
[2018-07-27 13:48] LABS: Urine Appearance Clear; Urine Blood Negative (Negative); Urine Color Yellow; Urine Ketones Trace (Negative); Urine Protein Negative (Negative); Urine Specific Gravity 1.021 (1.010-1.030); Urine Urobilinogen Negative (Negative)
[2018-07-27 16:07] VITALS: BP 176/73
== END | disposition home or self-care (01) ==
LOC: ED 10:14
DX: R51 Headache (principal); I44.4 Left anterior fascicular block; R53.1 Weakness; R41.0 Disorientation, unspecified; R47.81 Slurred speech; E11.9 Type 2 diabetes mellitus without complications; Z79.84 Long term (current) use of oral hypoglycemic drugs; E78.00 Pure hypercholesterolemia, unspecified; I10 Essential (primary) hypertension; J44.9 Chronic obstructive pulmonary disease, unspecified; Z99.81 Dependence on supplemental oxygen; K21.9 Gastro-esophageal reflux disease without esophagitis; F41.9 Anxiety disorder, unspecified; F31.9 Bipolar disorder, unspecified; Z79.01 Long term (current) use of anticoagulants; Z88.1 Allergy status to other antibiotic agents; Z88.5 Allergy status to narcotic agent; Z82.49 Family history of ischemic heart disease and other diseases of the circulatory system; Z81.1 Family history of alcohol abuse and dependence; Z81.8 Family history of other mental and behavioral disorders; Z87.891 Personal history of nicotine dependence
CPT/HCPCS: 36415; 70450; 71045; 80053; 80061; 81003; 83605; 84484; 85025; 85610; 85730; 86850; 86900; 86901; 93005; 96374; 99285; A9270-GY; J2765

== ENCOUNTER 2018-10-08 15:20 | Emergency (ER) | payer MEDICARE, MEDICAID ==
--- NOTE | 2018-10-08 15:36 | ED ---
Neurological HPI - HPI Summary HPI Summary: This patient is a 57 year old F brought in by ambulance to [facility] with a chief complaint of confusion that began at 0930 today. Patient states she woke up feeling normal at 0800. Patient states the pain is 9/10 in severity. Symptoms aggravated by nothing. Symptoms alleviated by nothing. Patient reports headache , left-sided weakness (more so then usual), and general speech issues. Per EMT, patient had a stroke one year ago with some residual left side weakness. - History of Current Complaint Stated Complaint: POSSBLE CODE CRABTREE Time Seen by Provider: 10/08/18 15:23 Hx Obtained From: Patient, EMS Hx Last Menstrual Period: not since 2009 Onset/Duration: Sudden Onset, Started hours ago, Still Present Number of Seizures: 0 Neurological Deficit Location: LUE, LLE Aggravating: Nothing Alleviating: Nothing Associated Signs and Symptoms: Positive: Weakness, Impaired Speech - Additional Pertinent History Primary Care Physician: [id number] - Allergy/Home Medications Allergies/Adverse Reactions: Allergies Allergy/AdvReac Type Severity Reaction Status Date / Time nitrofurantoin Allergy Severe Rash Verified 10/08/18 15:53 meperidine Allergy Intermediate Headache Verified 10/08/18 15:53 clavulanic acid AdvReac Intermediate Nausea And Verified 10/08/18 15:53 Vomiting morphine AdvReac Intermediate Nausea Verified 10/08/18 15:53 Home Medications: Home Medications Albuterol/Ipratropium NEB.SANDEEP* [Duoneb (Albuterol 2.5 MG/Ipratropium 0.5 MG)] 1 neb INH Q4H PRN 10/08/18 [History Confirmed 10/08/18] Bupropion XL* [Wellbutrin XL *] 150 mg PO QAM 10/08/18 [History Confirmed ] Calcium Carbonate/Vitamin D3 [Oyster Shell Calcium Tablet] 1 tab PO DAILY [History Confirmed 10/08/18] Desvenlafaxine(NF) [Pristiq(NF)] 150 mg PO DAILY 10/08/18 [History Confirmed 04/19] Divalproex ER TAB(*) [Depakote ER TAB(*)] 1,000 mg PO BEDTIME 10/08/18 [History Confirmed 10/08/18] Divalproex ER TAB(*) [Depakote ER TAB(*)] 500 mg PO QAM 10/08/18 [History Confirmed 10/08/18] Gabapentin CAP(*) [Neurontin 300 CAP(*)] 300 mg PO BEDTIME 10/08/18 [History Confirmed 10/08/18] [place] Carbonate TAB* 300 mg PO BID 10/08/18 [History Confirmed 10/08/18] diPHENhydraMINE PO* [Benadryl PO 25 MG TAB*] 25 mg PO BEDTIME 10/08/18 [History Confirmed 10/08/18] PMH/Surg Hx/FS Hx/Imm Hx Previously Healthy: No Endocrine/Hematology History: Reports: Hx Diabetes, Other Endocrine/ Hematological Disorders Denies: Hx Blood Disorders - blood clots, Hx Thyroid Disease, Hx Anemia, Hx Unexplained Bleeding Cardiovascular History: Reports: Hx Cardiac Arrest, Hx Congestive Heart Failure , Hx Hypercholesterolemia, Hx Hypertension, Other Cardiovascular Problems/ Disorders - Moyamoya syndrome Denies: Hx Aneurysm, Hx Angina, Hx Angioplasty, Hx Auto Implanted Cardiovert Defib, Hx Cardiomegaly, Hx Congenital Heart Disease, Hx Coronary Artery Disease , Hx Deep Vein Thrombosis, Hx Embolism, Hx Hypotension, Hx Myocardial Infarction , Hx Pacemaker/ICD, Hx Peripheral Vascular Disease, Hx Rheumatic Fever, Hx Syncope, Hx Valvular Heart Disease Respiratory History: Reports: Hx Asthma, Hx Chronic Bronchitis, Hx Chronic Obstructive Pulmonary Disease (COPD) - 3L O2 at home, Hx Pneumonia, Hx Sleep Apnea, Other Respiratory Problems/Disorders - PNEUMONIA IN 2001 Denies: Hx Cystic Fibrosis, Hx Lung Cancer, Hx Pleural Effusion, Hx Pulmonary Edema, Hx Pulmonary Embolism, Hx Seasonal Allergies GI History: Reports: Hx Gastroesophageal Reflux Disease, Other GI Disorders - "sphincter in stomach not working" Denies: Hx Cirrhosis, Hx Crohn's Disease, Hx Diverticulosis, Hx Gall Bladder Disease, Hx Gastrointestinal Bleed, Hx Hiatal Hernia, Hx Irritable Bowel, Hx Jaundice, Hx Obstructive Bowel, Hx Ileostomy, Hx Pyloric Stenosis, Hx Ulcer History: Reports: Hx Acute Renal Failure, Hx Renal Disease Denies: Hx Benign Prostatic Hyperplasia, Hx Chronic Renal Failure, Hx Dialysis, Hx Kidney Infection, Hx Kidney Stones, Other Problems/Disorders Musculoskeletal History: Reports: Hx Arthritis, Hx Back Problems, Hx Orthopedic Injury, Hx Scoliosis Denies: Hx Bursitis, Hx Congenital Bone Abnormalities, Hx Fibromyalgia, Hx Gout, Hx Osteoporosis, Hx Tendonitis, Other Musculoskeletal History Sensory History: Reports: Hx Contacts or Glasses, Hx Vision Problem Denies: Hx Cataracts, Hx Eye Injury, Hx Hearing Aid, Hx Hearing Problem, Other Sensory Impairments Opthamlomology History: Reports: Hx Contacts or Glasses, Hx Vision Problem Denies: Hx Cataracts, Hx Eye Injury, Other Sensory Impairments Neurological History: Reports: Hx Headaches, Hx Migraine, Hx Nerve Disease, Hx Seizures, Hx Transient Ischemic Attacks (TIA), Other Neuro Impairments/ Disorders - Hx moyamoya disease. 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 X2. endarterectomy-left internal carotid- STENT PLACED. INTERCRANIAL BYPASS X2 IN [place]. APPENDIX. ENDOMETRIAL ABLATION Hx Anesthesia Reactions: No - Immunization History Date of Tetanus Vaccine: unk Date of Influenza Vaccine: 06/18 Infectious Disease History: Reports: Hx Clostridium Difficile Denies: Hx Hepatitis, Hx Human Immunodeficiency Virus (HIV), Hx of Known/ Suspected MRSA, Hx Shingles, Hx Tuberculosis, Hx Known/Suspected VRE, Hx Known/ Suspected VRSA, History Other Infectious Disease - Family History Known Family History: Positive: Cardiac Disease, Other - bipolar disorder; alcohol abuse - Social History Occupation: Disabled Lives: With Family Alcohol Use: None Hx Substance Use: No Substance Use Type: Reports: None Hx Tobacco Use: Yes Smoking Status (MU): Former Smoker Type: Cigarettes Amount Used/How Often: quit in 2004 Have You Smoked in the Last Year: No Review of Systems Negative: Chest Pain Neurological: Other - Positive confusion, left-sided weakness, and general speech issues Positive: Headache All Other Systems Reviewed And Are Negative: Yes Physical Exam - Summary Physical Exam Summary: VITAL SIGNS: Reviewed. GENERAL: Patient is a well-developed and nourished female who is lying comfortable in the stretcher.Patient is not in any acute respiratory distress. HEAD AND FACE: No signs of trauma. No ecchymosis, hematomas or skull depressions. No sinus tenderness. EYES: PERRLA, EOMI x 2, No injected conjunctiva, no nystagmus. No photophobia. EARS: Hearing grossly intact. Ear canals and tympanic membranes are within normal limits. MOUTH: Oropharynx within normal limits. NECK: Supple, trachea is midline, no adenopathy, no JVD, no carotid bruit, no c- spine tenderness, neck with full ROM. No meningeal signs, no Kernig's or brudzinskis signs. CHEST: Symmetric, no tenderness at palpation LUNGS: Clear to auscultation bilaterally. No wheezing or crackles. CVS: Regular rate and rhythm, S1 and S2 present, no murmurs or gallops appreciated. ABDOMEN: Soft, non-tender. No signs of distention. No rebound no guarding, and no masses palpated. Bowel sounds are normal. EXTREMITIES: FROM in all major joints, no edema, no cyanosis or clubbing. NEURO: Alert and oriented x 3. Neurological deficits in LUE and LLE. Speech is normal and follows commands. SKIN: Dry and warm GCS: 15 Triage Information Reviewed: Yes Vital Signs Reviewed: Yes Diagnostics - Laboratory Result Diagrams: 10/08/18 15:43 10/08/18 15:42 Lab Statement: Any lab studies that have been ordered have been reviewed, and results considered in the medical decision making process. - CT Brain CT CT Interpretation Completed By: Radiologist Summary of CT Findings: Brain CT reveals, per radiologist, 1. No evidence for gross acute infarct, mass effect or hemorrhage. 2. Postsurgical changes. ED physician has reviewed this radiology report. - EKG 1552 Cardiac Rate: NL EKG Rhythm: Sinus Rhythm - 82 BPM Summary of EKG Findings: An EKG taken at 1552 reveals normal sinus rhythm at [address] elevations. NIH Scale - NIH Scale Level of Consciousness: Alert/Keenly Responsive Ask Patient the Month and His/Her Age: Both Correct Ask Pt to Open/Close Eyes and Crossing [place]/Release Non-Paretic Hand: Both Correctly Best Gaze (Only Horizontal Eye Movement): Normal Visual Field Testing: No Visual Loss Facial Paresis-Pt to Smile & Close Eyes or Grimace Symmetry: Normal/Symmetrical Motor Function - Right Arm: No Drift-Holds 10 Seconds Motor Function - Left Arm: Drifts LT 10 seconds Motor Function - Right Leg: No Drift-Holds 10 Seconds Motor Function - Left Leg: Drifts LT 10 seconds Limb Ataxia-Must be out of Proportion to Weakness Present: Absent Sensory (Use Pinprick to Test Arms/Legs/Trunk/Face): Normal Best Language (Describe Picture, Name Items): No Aphasia Dysarthria (Read Several Words): Normal Extinction and Inattention: No Abnormality Total Score: 2 Course/Dx - Course Assessment/Plan: This patient is a 57 year old F brought in by ambulance to [facility] with a chief complaint of confusion that began at 0930 today. Patient states she woke up feeling normal at 0800. Patient states the pain is 9/10 in severity. Symptoms aggravated by nothing. Symptoms alleviated by nothing. Patient reports headache, left-sided weakness (more so than usual), and general speech issues. Per EMT, patient had a stroke one year ago with some residual left side weakness. Blood work without any significant abnormality except for glucose of 133 lactic acid 2.4 urinalysis negative for UTI. Head CT impression : No evidence for gross acute infarct, mass effect or hemorrhage. Postsurgical changes. At this point I discussed my physical exam, findings and test results with Dr. Yap from neurology who came and assessed the patient. After his physical exam and findings and review of her chart he reports that he thinks that the patient has a migraine headache. Therefore the patient was given Toradol, Reglan, and Benadryl and symptoms improved. At this point the patient is eating and drinking and has no other complaints. He recommends for the patient to be discharged home with follow-up with her neurologist in [place] tomorrow. The patient understands and agrees. I discussed all the findings and test results with the patient. Patient was instructed to return to the emergency room immediately if any of the symptoms return or worsens. Plan of care was discussed with the patient and understands and agrees. All questions were answered at patient satisfaction. There were no further complaints or concerns. Lung exam before discharge: CTA B/L. Good air exchange. No wheezing or crackles heard. CVS: S1 and S2 present. No murmurs appreciated. Patient is alert and oriented x 3. Patient is hemodynamically stable. Patient will be discharged home with follow up PCP in the next 2-3 days - Diagnoses Provider Diagnoses: Headache - Physician Notifications Discussed Care Of Patient With: Rigoberto Yap Time Discussed With Above Provider: 15:33 Instructed by Provider To: Other - Consult with Dr. Yap (neurologist) at 1533. Discussed the patients case. Consult with Dr. Yap (neurologist) at 1550. He thinks that the patient has a migraine headache with functional left sided weakness. Discharge - Sign-Out/Discharge Documenting (check all that apply): Patient Departure - Discharge Plan Condition: Stable Disposition: HOME Patient Education Materials: Migraine Headache (ED) Referrals: Deb Pate MD [Primary Care Provider] - 2 Days Additional Instructions: RETURN TO THE EMERGENCY DEPARTMENT FOR NEW OR WORSENING SYMPTOMS - Billing Disposition and Condition Condition: STABLE Disposition: Home - Attestation Statements Document Initiated by Brittnee: Yes Documenting Scribe: Kalee Rosales Provider For Whom Chanoibe is Documenting (Include Credential): Dr. Jose Roberts MD Scribe Attestation: IKalee scribed for Dr. Jose Roberts MD on 10/09/18 at 2144. Scribe Documentation Reviewed: Yes Provider Attestation: The documentation as recorded by the Kalee españa accurately reflects the service I personally performed and the decisions made by me, Dr. Jose Roberts MD Status of Scribe Document: Viewed
[2018-10-08] MEDS ORDERED: diPHENhydraMINE PO* 25 MG PO ONE (16:11)
[2018-10-08] MEDS ORDERED: Metoclopramide IV* 5 MG/ML 2 ML VIAL IV ONE (16:11)
[2018-10-08 16:44] LABS: ABS Basophils 0.1 10^3/ul (0-0.2); ABS Eosinophils 0.1 10^3/ul (0-0.6); ABS Lymphocytes 3.1 10^3/ul (1.0-4.8); ABS Monocytes 0.8 10^3/ul (0-0.8); ABS Neutrophils 6.4 10^3/ul (1.5-7.7); ABS Nucleated RBC 0 10^3/ul; Eosinophil % 1.4 %; Hematocrit 41 % (35-47); Hemoglobin 13.8 g/dl (12.0-16.0); Lymphocyte % 29.4 %; Mean Corpuscular HGB Conc 34 g/dl (31-36); Mean Corpuscular Hemoglobin 29 pg (27-31); Mean Corpuscular Volume 86 fL (80-97); Mean Platelet Volume 8.7 fL (7.4-10.4); Nucleated Red Blood Cells % 0.2; Platelet Count 236 10^3/ul (150-450); Red Blood Count 4.83 10^6/ul (4.00-5.40); Red Cell Distribution Width 18 % (10.5-15); White Blood Count 10.4 10^3/ul (3.5-10.8)
[2018-10-08 16:50] LABS: Urine Appearance Clear; Urine Bacteria Absent (Absent); Urine Bilirubin Negative (Negative); Urine Blood Negative (Negative); Urine Color Yellow; Urine Glucose Negative (Negative); Urine Ketones Trace (Negative); Urine Nitrite Negative (Negative); Urine Protein Negative (Negative); Urine Red Blood Cell Absent (Absent); Urine Specific Gravity 1.019 (1.010-1.030); Urine Urobilinogen Negative (Negative); Urine White Blood Cell 1+(6-10/hpf) (Absent)
[2018-10-08 17:17] LABS: Activated Partial Thrombo Time 29.9 seconds (26.0-36.3); INR 1.06 (0.77-1.02)
[2018-10-08 17:19] LABS: Albumin 4.4 g/dL (3.2-5.2); Albumin/Globulin Ratio 1.7 (1-3); BUN/Creatinine Ratio 25.3 (8-20); Calcium 9.7 mg/dL (8.6-10.3); EGFR Non-African American 67.6 (>60); Globulin 2.6 g/dL (2-4); Potassium 4.6 mmol/L (3.5-5.0); Total Bilirubin 0.4 mg/dL (0.2-1.0)
[2018-10-08 17:52] VITALS: BP 121/88
--- NOTE | 2018-10-08 20:02 | CONS ---
NEUROLOGY CONSULTATION NOTE: DATE OF CONSULT: 10/08/18 CONSULTING PROVIDER: Dr. Roberts. REASON FOR CONSULT: Evaluate for headaches, left-sided weakness, and tremors. CHIEF COMPLAINT: Tremors. HISTORY OF PRESENT ILLNESS: Ms. Sol is a 57-year-old female who is known to the neurology service as she was seen by me on 02/28/18, as well as she has been seen by Dr. Rogers and Dr. Hylton in 2018. The patient has an extensive neurological history. She has history of Moyamoya disease and underwent bilateral intracranial bypass surgery at [facility] by Dr. Sarah Crowe in 2017. Since then, she has come in the hospital with multiple times, with multiple neurological complaints, some related to her headaches, tremors, anxiety, bipolar disorder, and residual deficits. 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 The patient presented to [facility] today due to symptoms of headache , tremors, and noticed that her left-sided weakness is slightly worse. The patient stated that she woke up in a normal state of health and started developing tremors in both upper extremities. This is not uncommon. She has had similar presentation before. The tremors were worse when she was walking. The tremors lasted for approximately 2 hours. She is weaning off Depakote over the last few weeks due to weight gain and tremors. She was recently placed on lithium 300 mg daily. She also stated, at around 12 o'clock she developed her typical migraine headaches. She described the headache as unilateral right frontal pain, nonradiating, associated with photo and phonophobia as well as nausea. The pain right now is 9/10 in severity. The patient also stated that currently, her left-sided symptoms are similar to baseline, but she may have felt increase in left-sided weakness when she was trying to walk around during the episodes of tremors. She denied any seizure-like activity. She denied any swallowing difficulty. She denied any double vision or blurry vision. She denied any impairment in her bowel or bladder functions. The patient had a CT of the head without contrast completed in the ED today which I personally reviewed. There was no evidence of acute intracranial abnormality. The patient was also diagnosed with functional disorder by Dr. Rogers on and was diagnosed with no new stroke by Dr. Hylton on 03/23/18. PAST MEDICAL HISTORY: Moyamoya disease, bihemispheric surgeries, EC-IC bypass. The patient also has type 2 diabetes, peripheral vascular disease, hypertension , dyslipidemia, personality disorder, bipolar disorder, anxiety, depression, and COPD. PAST SURGICAL HISTORY: Intracranial bypass surgery, left carotid endarterectomy and 2 stents placed in the left carotid, C-sections, appendectomy , endometrial ablation. MEDICATIONS: 1. Gabapentin 100 mg t.i.d. 2. Colace 100 mg p.o. b.i.d. 3. Calcium carbonate 500 mg p.o. daily. 4. Lisinopril 20 mg p.o. at bedtime. 5. Gabapentin 300 mg p.o. at bedtime. 6. Victoza 1.8 mg subcutaneous daily. 7. Multivitamins. 8. Vitamin D 400 units p.o. daily. 9. Clopidogrel 75 mg p.o. at bedtime. 10. Glimepiride 4 mg p.o. daily. 11. Albuterol 2.5 mg inhaler every 6 hours as needed. 12. Ondansetron 4 mg p.o. every 6 hours. 13. Wellbutrin 300 mg p.o. q.a.m. 14. Ranitidine 300 mg p.o. at bedtime. 15. Albuterol 2 puffs inhaled every 6 hours. 16. Pantoprazole 40 mg p.o. in the morning. 17. Depakote 500 mg p.o. daily. 18. Diltiazem 120 mg p.o. at bedtime. 19. Carvedilol 6.25 mg p.o. b.i.d. 20. Atorvastatin 80 mg p.o. at night. 21. Desvenlafaxine 150 mg p.o. in the morning. 22. Mccoole 300 mg daily. ALLERGIES: NITROFURANTOIN, DEMEROL, AUGMENTIN, and MORPHINE. FAMILY HISTORY: Mother had a history of stroke at 6 years of age. Her father had a history of brain cancer. SOCIAL HISTORY: The patient is a former smoker, one and a half packs per day for 26 years, she quit in 2004. She denied any alcohol use. She denied any recreational drug use. Her surrogate decision maker is her daughter, who is at bedside right now. REVIEW OF SYSTEMS: A 14-point review of systems was obtained and otherwise negative except for what was mentioned in the HPI. PHYSICAL EXAM: Vitals: Temperature of 98.1, pulse of 92, respiratory rate of 19, oxygen saturation of 95%, and blood pressure 119/52. The patient is resting comfortably, in no acute distress. Well-nourished, well-developed obese female. Head is normocephalic, atraumatic without any obvious abnormality. Eyes: Conjunctivae/corneas are clear. Neck is supple and symmetrical with no carotid bruits. Lungs are clear to auscultation bilaterally. Cardiovascular: Regular rate and rhythm with normal S1, S2 with normal radial pulses that are probable. Extremities: Normal range of motion with no cyanosis. Skin: No skin lesions or laceration. Psych: Affect is broad and she is smiling throughout the interview. It is easy to establish a rapport. Neurological Examination: Awake, alert, and oriented to person, place , time, and general circumstances. She does have chronic mild dysarthria that was noted on an examination finding from January 2018. Her language including expression, naming, repetition, and comprehension were assessed and found to be normal. Cranial Nerves: Normal confrontation testing. Pupils are mid range and reactive to light. Normal consensual response. Extraocular muscles are intact. Sensation is intact on the forehead, cheeks, and jaw region bilaterally. Normal facial symmetry with no facial droop. She is able to hear throughout the history process. The shoulder shrug is symmetrical bilaterally. Tongue is symmetrical and midline. Motor: Right/left: No abnormal movements or pronator drift. Normal bulk and tone throughout. She has shoulder abduction at 5/4. Elbow flexion is 5/4, extension 5/4. Otherwise, wrist flexion; finger flexion, extension, abduction; hip flexion and abduction; knee flexion, extension; ankle dorsiflexion and plantar flexion are 5/5 throughout. Reflexes: Right/left brachioradialis, biceps, triceps, patella, and ankles are 1+ throughout except for the ankles where she had 0 bilaterally. Flexor plantar response bilaterally. Sensation is intact to light touch throughout. Coordination: Normal finger-to- nose and rapid alternating movement. The patient is morbidly obese and is walker dependent. DIAGNOSTIC STUDIES/LAB DATA: Laboratory data was not obtained. ASSESSMENT AND RECOMMENDATIONS: This is a 57-year-old female with a complex medical history of Moyamoya disease, status post intracranial bypass, who presented with symptoms of increased migraine headaches and tremors. There was a reported history of left-sided weakness in the setting of the tremors, but that has since resolved. I do not suspect that she had a transient ischemic attack or a stroke given the fact that she has had multiple recurrent similar presentations in the past, although I understand that she is at a very high risk of developing transient ischemic attacks. She is compliant to Plavix which she takes regularly. 1. Migraine headaches without aura. I recommend starting the patient on IV magnesium, oral acetaminophen, and antiemetics. Defer further pain control to the primary team. 2. Tremors. I do not see any tremors on examination today. The tremors could be related to medication side effects, although she is weaning off the Depakote which can be the cause of her tremors. She is also taking lithium, which can potentially cause tremors. Please check her lithium level. If normal, I do not recommend any further evaluation. There is some concern that her tremors may be functional. 3. 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 Continue Plavix and statin therapy. She is going to have some testing done with CT perfusion tomorrow at [place] for Dr. Pagan, her neuro- endovascular specialist. I encourage her to discuss this further with Dr. Pagan. Other than obtaining labs, I do not recommend any further neurological workup at this time other than checking her lithium level making sure she is not toxic. She will follow up with Neurology as an outpatient. The plan was discussed with the patient and her daughter at bedside. Her daughter was very thankful that I did not tell her that her symptoms were all functional and related to her psychiatric history. The patient has presented like this many times in the past and her daughter feels like this current presentation is not new or alarming. They are reassured that they may be able to leave today in order to make it to her appointment tomorrow morning in [place]. I discussed these recommendations with Dr. Roberts who agreed with my impression and plan. TIME SPENT: Sixty five minutes were spent obtaining history, examining the patient, education and counseling, and discussing the treatment plan as mentioned above. The patient should establish followup with Neurology close to home. [id number]/[facility] #: [id number] J[facility] VA MEDICAL CENTERIvonne
== END 2018-10-08 17:51 | disposition home or self-care (01) ==
LOC: ED 15:20
DX: R51 Headache (principal); E11.9 Type 2 diabetes mellitus without complications; K21.9 Gastro-esophageal reflux disease without esophagitis; I50.9 Heart failure, unspecified; Z86.74 Personal history of sudden cardiac arrest; J44.9 Chronic obstructive pulmonary disease, unspecified; I69.354 Hemiplegia and hemiparesis following cerebral infarction affecting left non-dominant side; Z88.5 Allergy status to narcotic agent; Z87.891 Personal history of nicotine dependence
CPT/HCPCS: 36415; 70450; 80053; 80061; 80178; 81003; 81015; 83605; 84484; 85025; 85610; 85730; 86850; 86900; 86901; 87086; 93005; 96374; 99283; A9270-GY; J2765

== ENCOUNTER 2018-10-30 22:54 | Emergency (ER) | payer MEDICARE, MEDICAID ==
[2018-10-30] MEDS ORDERED: predniSONE TAB* 20 MG PO ONE (23:04)
[2018-10-30] MEDS ORDERED: Albuterol/Ipratropium NEB.SOL* Albuterol 2.5 MG/Ipratropium 0.5 MG 3 ML ONE (23:09)
[2018-10-30] MEDS ORDERED: Albuterol/Ipratropium NEB.SOL* Albuterol 2.5 MG/Ipratropium 0.5 MG 3 ML INH ONE (23:15)
--- NOTE | 2018-10-30 23:41 | ED ---
Shortness of Breath - HPI Summary HPI Summary: Pt is a 58 y/o female brought in by EMS who presents to the ED c/o SOB. Pt has had shakiness of her extremities and a headache for 3 days. She began to have difficulty breathing at 14:00 today. Pt denies any fever or diarrhea. Pt had a duoneb breathing treatment at 14:00 and another one in the ambulance. She is on 2L O2 [place] at home. Pt notes her blood sugar was 223 today. Pt is a former smoker , and quit in 2004. She denies any steroid use. PMHx asthma, COPD, bronchitis, PNA, and sleep apnea. Pt recently had her Depakote prescription decreased and her [place] prescription increased, but doesnt think her symptoms are related to this change. She has an appointment with neurology on 11/08/18 to address her shakiness. - History of Current Complaint Time Seen by Provider: 10/30/18 22:57 Hx Obtained From: Patient Onset/Duration: Gradual Onset, Lasting Days - 3, Worse Since Timing: Constant Dyspnea At: Rest Aggrevating Factors: Nothing Alleviating Factors: EMS Tx - duoneb Associated Signs & Symptoms: Negative - Allergy/Home Medications Allergies/Adverse Reactions: Allergies Allergy/AdvReac Type Severity Reaction Status Date / Time nitrofurantoin Allergy Severe Rash Verified 10/30/18 23:03 meperidine Allergy Intermediate Headache Verified 10/30/18 23:03 clavulanic acid AdvReac Intermediate Nausea And Verified 10/30/18 23:03 Vomiting morphine AdvReac Intermediate Nausea Verified 10/30/18 23:03 PMH/Surg Hx/FS Hx/Imm Hx Endocrine/Hematology History: Reports: Hx Diabetes, Other Endocrine/ Hematological Disorders Denies: Hx Blood Disorders - blood clots, Hx Thyroid Disease, Hx Anemia, Hx Unexplained Bleeding Cardiovascular History: Reports: Hx Cardiac Arrest, Hx Congestive Heart Failure , Hx Hypercholesterolemia, Hx Hypertension, Other Cardiovascular Problems/ Disorders - Moyamoya syndrome Denies: Hx Aneurysm, Hx Angina, Hx Angioplasty, Hx Auto Implanted Cardiovert Defib, Hx Cardiomegaly, Hx Congenital Heart Disease, Hx Coronary Artery Disease , Hx Deep Vein Thrombosis, Hx Embolism, Hx Hypotension, Hx Myocardial Infarction , Hx Pacemaker/ICD, Hx Peripheral Vascular Disease, Hx Rheumatic Fever, Hx Syncope, Hx Valvular Heart Disease Respiratory History: Reports: Hx Asthma, Hx Chronic Bronchitis, Hx Chronic Obstructive Pulmonary Disease (COPD) - 3L O2 at home, Hx Pneumonia, Hx Sleep Apnea, Other Respiratory Problems/Disorders - PNEUMONIA IN 2001 Denies: Hx Cystic Fibrosis, Hx Lung Cancer, Hx Pleural Effusion, Hx Pulmonary Edema, Hx Pulmonary Embolism, Hx Seasonal Allergies GI History: Reports: Hx Gastroesophageal Reflux Disease, Other GI Disorders - "sphincter in stomach not working" Denies: Hx Cirrhosis, Hx Crohn's Disease, Hx Diverticulosis, Hx Gall Bladder Disease, Hx Gastrointestinal Bleed, Hx Hiatal Hernia, Hx Irritable Bowel, Hx Jaundice, Hx Obstructive Bowel, Hx Ileostomy, Hx Pyloric Stenosis, Hx Ulcer History: Reports: Hx Acute Renal Failure, Hx Renal Disease Denies: Hx Benign Prostatic Hyperplasia, Hx Chronic Renal Failure, Hx Dialysis, Hx Kidney Infection, Hx Kidney Stones, Other Problems/Disorders Musculoskeletal History: Reports: Hx Arthritis, Hx Back Problems, Hx Orthopedic Injury, Hx Scoliosis Denies: Hx Bursitis, Hx Congenital Bone Abnormalities, Hx Fibromyalgia, Hx Gout, Hx Osteoporosis, Hx Tendonitis, Other Musculoskeletal History Sensory History: Reports: Hx Contacts or Glasses, Hx Vision Problem Denies: Hx Cataracts, Hx Eye Injury, Hx Hearing Aid, Hx Hearing Problem, Other Sensory Impairments Opthamlomology History: Reports: Hx Contacts or Glasses, Hx Vision Problem Denies: Hx Cataracts, Hx Eye Injury, Other Sensory Impairments Neurological History: Reports: Hx Headaches, Hx Migraine, Hx Nerve Disease, Hx Seizures, Hx Transient Ischemic Attacks (TIA), Other Neuro Impairments/ Disorders - Hx moyamoya disease. 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 X2. endarterectomy-left internal carotid- STENT PLACED. INTERCRANIAL BYPASS X2 IN [place]. APPENDIX. ENDOMETRIAL ABLATION Hx Anesthesia Reactions: No - Immunization History Date of Tetanus Vaccine: unk Date of Influenza Vaccine: 06/18 Infectious Disease History: No Infectious Disease History: Reports: Hx Clostridium Difficile Denies: Hx Hepatitis, Hx Human Immunodeficiency Virus (HIV), Hx of Known/ Suspected MRSA, Hx Shingles, Hx Tuberculosis, Hx Known/Suspected VRE, Hx Known/ Suspected VRSA, History Other Infectious Disease, Traveled Outside the [place] in Last 30 Days - Family History Known Family History: Positive: Cardiac Disease, Other - bipolar disorder; alcohol abuse - Social History Alcohol Use: None Alcohol Amount: once/year Hx Substance Use: No Substance Use Type: Reports: None Hx Tobacco Use: Yes Smoking Status (MU): Former Smoker Type: Cigarettes Amount Used/How Often: quit in 2004 Have You Smoked in the Last Year: No Review of Systems Negative: Fever Positive: Shortness Of Breath Negative: Diarrhea Neurological: Other - shakiness Positive: Headache All Other Systems Reviewed And Are Negative: Yes Physical Exam - Summary Physical Exam Summary: Appearance: Well appearing, no pain distress Skin: warm, dry, reflects adequate perfusion Head/face: normal Eyes: EOMI, [place] ENT: mucous membranes moist Neck: supple, non-tender Respiratory: CTA, breath sounds mildly diminishes, no wheezes, no respiratory distress, speaks in full sentences Cardiovascular: tachycardic but regular rhythm, pulses symmetrical, trace LE edema Abdomen: non-tender, soft Bowel Sounds: present Musculoskeletal: normal, strength/ROM intact Neuro: normal, sensory motor intact, A&Ox3 Triage Information Reviewed: Yes Vital Signs On Initial Exam: Initial Vitals Temp Pulse Resp BP Pulse Ox 97.8 F 102 22 194/109 96 10/30/18 22:59 10/30/18 22:59 10/30/18 22:59 10/30/18 22:59 10/30/18 22:59 Vital Signs Reviewed: Yes Diagnostics - Vital Signs Vital Signs Temp Pulse Resp BP Pulse Ox 10/30/18 23:15 92 16 97 10/30/18 22:59 97.8 F 102 22 194/109 96 - Laboratory Lab Statement: Any lab studies that have been ordered have been reviewed, and results considered in the medical decision making process. - Radiology CXR Radiology Interpretation Completed By: ED Physician Summary of Radiographic Findings: Limited by habitus, no acute infiltrate, unchanged from previous. Pending official radiology report. Re-Evaluation - Re-Evaluation First Eval Re-Evaluation Time: 23:41 Change: Improved Comment: Pt feels much better now. Course/Dx - Course Course Of Treatment: Nurse's notes reviewed. Patient is well-known COPD patient to this ER. She also has history of diabetes [id number] with modest hyperglycemia. She is feeling much better and was non-dyspneic on arrival after EMS breathing treatment. She received additional treatment here and was given oral Zithromax and prednisone. She'll be continued on similar outpatient. She is instructed to closely follow her blood sugars given the prednisone may make them rise. There is no evidence for pneumonia on chest x- ray. Follow-up primary care physician. - Diagnoses Differential Diagnosis/HQI/PQRI: Positive: Asthma, Bronchitis, CHF, COPD Exacerbation, Pneumonia, Pneumothorax Provider Diagnoses: COPD exacerbation, Hyperglycemia due to type 2 diabetes mellitus Discharge - Sign-Out/Discharge Documenting (check all that apply): Patient Departure - Discharge - Discharge Plan Condition: Improved Disposition: HOME Prescriptions: Azithromycin TAB* [Zithromax TAB (Z-GARIMA) 250 mg #6 tabs] 250 mg PO DAILY #4 tab predniSONE TAB* [Deltasone 20 MG TAB*] 40 mg PO DAILY #6 tab Patient Education Materials: COPD (Chronic Obstructive Pulmonary Disease) (ED) Referrals: Deb Pate MD [Medical Doctor] - Additional Instructions: Use you're duonebs every 4-6 hours until well. Call your doctor first thing in the morning to schedule follow-up. You may go up to 3 L of oxygen as needed. Return with fever, difficulty breathing, worse, new symptoms or other concerns. Watch her carbohydrate intake as prednisone can make her blood sugars go up. - Billing Disposition and Condition Condition: IMPROVED Disposition: Home - Attestation Statements Document Initiated by Chanoibe: Yes Documenting Scribe: Juany Us Provider For Whom Brittnee is Documenting (Include Credential): Doug Santos MD Scribe Attestation: Juany Michaels scribed for Doug Santos MD on 10/31/18 at 0124. Scribe Documentation Reviewed: Yes Provider Attestation: The documentation as recorded by the Juany españa accurately reflects the service I personally performed and the decisions made by me, Doug Santos MD Status of Scribe Document: Viewed
[2018-10-31 00:01] VITALS: BP 133/61
== END 2018-10-31 00:01 | disposition home or self-care (01) ==
LOC: ED 22:54
DX: J44.1 Chronic obstructive pulmonary disease with (acute) exacerbation (principal); Z99.81 Dependence on supplemental oxygen; E11.65 Type 2 diabetes mellitus with hyperglycemia; I25.10 Atherosclerotic heart disease of native coronary artery without angina pectoris; I13.0 Hypertensive heart and chronic kidney disease with heart failure and stage 1 through stage 4 chronic kidney disease, or unspecified chronic kidney disease; N18.9 Chronic kidney disease, unspecified; Z95.5 Presence of coronary angioplasty implant and graft; Z88.1 Allergy status to other antibiotic agents; Z88.5 Allergy status to narcotic agent; Z88.8 Allergy status to other drugs, medicaments and biological substances; Z87.891 Personal history of nicotine dependence
CPT/HCPCS: 71045; 99283; A9270-GY; J7512

== ENCOUNTER 2019-09-11 09:07 | Observation (INO) | payer MEDICAID, MEDICARE ==
--- NOTE | 2019-09-11 09:53 | ED ---
HPI Chest Pain - HPI Summary HPI Summary: Patient is a 58 y/o F w/ Hx of AR, cardiac stents, HTN, HLD, diabetes, and moyamoya disease with two arterial craniotomies who presents to [facility] with complaints of midsternal chest pain that onset when she awoke this morning, 08/20. Patient endorses some dizziness, generalized weakness and nausea but denies vomiting, KHANNA, and blurred vision. Dizziness is characterized as feeling near-syncopal. Patient is on Plavix. She endorses some SOB but characterizes this as her baseline, chronic SOB secondary to COPD. Patient is on 2 L o2 at home. On triage, pain is rated 4/10, nothing is noted to aggravate/alleviate Sx. She notes that she uses a walker to get around. Home medications and allergies are reviewed. - History of Current Complaint Chief Complaint: EDChestPainROMI Time Seen by Provider: 09/11/19 09:26 Hx Obtained From: Patient Hx Last Menstrual Period: not since 2009 Onset/Duration: Still Present Timing: Constant Current Severity: Moderate Pain Intensity: 4 Pain Scale Used: 0-10 Numeric Chest Pain Location: Mid Sternal Aggravating Factor(s): Nothing Alleviating Factor(s): Nothing Associated Signs and Symptoms: Positive: Chest Pain, Dizziness, Shortness of Breath - chronic, Nausea, Other: - negative - blurred vision. Negative: Headaches, Vomiting - Additional Pertinent History Primary Care Physician: [id number] - Allergy/Home Medications Allergies/Adverse Reactions: Allergies Allergy/AdvReac Type Severity Reaction Status Date / Time nitrofurantoin Allergy Severe Rash Verified 04/26/19 13:28 meperidine Allergy Intermediate Headache Verified 04/26/19 13:28 clavulanic acid AdvReac Intermediate Nausea And Verified 04/26/19 13:28 Vomiting morphine AdvReac Intermediate Nausea Verified 04/26/19 13:28 Home Medications: Home Medications Albuterol 2.5MG/3ML (0.083%)* [Ventolin 2.5 MG/3 ML NEB.SANDEEP*] 2.5 mg INH Q4H PRN 09/11/19 [History Confirmed 09/11/19] Albuterol Sulfate [Proventil Hfa] 2 puff INH QID PRN 09/11/19 [History Confirmed 09/11/19] Benzonatate CAP* [Tessalon 100 MG CAP*] 100 mg PO TID PRN 09/11/19 [History Confirmed 09/11/19] Butalb/Acetamin/Caff TAB* [Fioricet TAB*] 1 tab PO Q8H PRN 09/11/19 [History Confirmed 09/11/19] Canagliflozin (NF) [Invokana (NF)] 100 mg PO DAILY 09/11/19 [History Confirmed 09/11/19] Clopidogrel TAB* [Plavix TAB*] 75 mg PO DAILY 09/11/19 [History Confirmed ] Conjugated Estrogens VAG CM* [Premarin VAG CREAM*] 1 applic VAGINAL .2X/WEEK 08/20 [History Confirmed 09/11/19] Divalproex DR TAB(*) [Depakote DR(*)] 500 mg PO BID 09/11/19 [History Confirmed 09/11/19] Erenumab-Aooe [Aimovig Autoinjector] 70 mg SUBCUT MONTHLY 09/11/19 [History Confirmed 09/11/19] Fluconazole 150 MG TAB* [Diflucan 150 MG TAB*] 150 mg PO ONCE 09/11/19 [History Confirmed 09/11/19] Genahist 25 mg PO BEDTIME PRN 09/11/19 [History Confirmed 09/11/19] Insulin GLARGINE(*) [Lantus(*)] 10 units SUBCUT BEDTIME 09/11/19 [History Confirmed 09/11/19] Ipratropium 0.5MG/2.5ML NEB* [Atrovent 0.5 MG NEB.SANDEEP*] 1 vial INH QID PRN 09/11 [History Confirmed 09/11/19] Lurasidone(*) [Latuda] 60 mg PO DAILY 09/11/19 [History Confirmed 09/11/19] Multivitamins/Minerals TAB* [Theragran/minerals TAB*] 1 tab PO DAILY 09/11/19 [ History Confirmed 09/11/19] Nystatin CREAM* [Nystatin Cream*] 1 applic TOPICAL .3-4X/DAY 09/11/19 [History Confirmed 09/11/19] Sennosides [Senna] 25 mg PO DAILY PRN 09/11/19 [History Confirmed 09/11/19] Topiramate [Topiramate ER 50 mg cap] 50 mg PO QPM 09/11/19 [History Confirmed ] National Institutes Of Health - NIH Scale Level of Consciousness: Alert/Keenly Responsive Ask Patient the Month and His/Her Age: Both Correct Ask Pt to Open/Close Eyes and House Repairer/Release Non-Paretic Hand: Both Correctly Best Gaze (Only Horizontal Eye Movement): Normal Visual Field Testing: No Visual Loss Facial Paresis-Pt to Smile & Close Eyes or Grimace Symmetry: Normal/Symmetrical Motor Function - Right Arm: No Drift-Holds 10 Seconds Motor Function - Left Arm: No Drift-Holds 10 Seconds Motor Function - Right Leg: No Drift-Holds 10 Seconds Motor Function - Left Leg: No Drift-Holds 10 Seconds Limb Ataxia-Must be out of Proportion to Weakness Present: Absent Sensory (Use Pinprick to Test Arms/Legs/Trunk/Face): Normal Best Language (Describe Picture, Name Items): No Aphasia Dysarthria (Read Several Words): Normal Extinction and Inattention: No Abnormality Total Score: 0 PMH/Surg Hx/FS Hx/Imm Hx Endocrine/Hematology History: Reports: Hx Diabetes, Other Endocrine/ Hematological Disorders Denies: Hx Blood Disorders - blood clots, Hx Thyroid Disease, Hx Anemia, Hx Unexplained Bleeding Cardiovascular History: Reports: Hx Cardiac Arrest, Hx Congestive Heart Failure , Hx Hypercholesterolemia, Hx Hypertension, Other Cardiovascular Problems/ Disorders - Moyamoya syndrome Denies: Hx Aneurysm, Hx Angina, Hx Angioplasty, Hx Auto Implanted Cardiovert Defib, Hx Cardiomegaly, Hx Congenital Heart Disease, Hx Coronary Artery Disease , Hx Deep Vein Thrombosis, Hx Embolism, Hx Hypotension, Hx Myocardial Infarction , Hx Pacemaker/ICD, Hx Peripheral Vascular Disease, Hx Rheumatic Fever, Hx Syncope, Hx Valvular Heart Disease Respiratory History: Reports: Hx Asthma, Hx Chronic Bronchitis, Hx Chronic Obstructive Pulmonary Disease (COPD) - 3L O2 at home, Hx Pneumonia, Hx Sleep Apnea, Other Respiratory Problems/Disorders - PNEUMONIA IN 2001 Denies: Hx Cystic Fibrosis, Hx Lung Cancer, Hx Pleural Effusion, Hx Pulmonary Edema, Hx Pulmonary Embolism, Hx Seasonal Allergies GI History: Reports: Hx Gastroesophageal Reflux Disease, Other GI Disorders - "sphincter in stomach not working" Denies: Hx Cirrhosis, Hx Crohn's Disease, Hx Diverticulosis, Hx Gall Bladder Disease, Hx Gastrointestinal Bleed, Hx Hiatal Hernia, Hx Irritable Bowel, Hx Jaundice, Hx Obstructive Bowel, Hx Ileostomy, Hx Pyloric Stenosis, Hx Ulcer History: Reports: Hx Acute Renal Failure, Hx Renal Disease Denies: Hx Benign Prostatic Hyperplasia, Hx Chronic Renal Failure, Hx Dialysis, Hx Kidney Infection, Hx Kidney Stones, Other Problems/Disorders Musculoskeletal History: Reports: Hx Arthritis, Hx Back Problems, Hx Orthopedic Injury, Hx Scoliosis Denies: Hx Bursitis, Hx Congenital Bone Abnormalities, Hx Fibromyalgia, Hx Gout, Hx Osteoporosis, Hx Tendonitis, Other Musculoskeletal History Sensory History: Reports: Hx Contacts or Glasses, Hx Vision Problem Denies: Hx Cataracts, Hx Eye Injury, Hx Hearing Aid, Hx Hearing Problem, Other Sensory Impairments Opthamlomology History: Reports: Hx Contacts or Glasses, Hx Vision Problem Denies: Hx Cataracts, Hx Eye Injury, Other Sensory Impairments Neurological History: Reports: Hx Headaches, Hx Migraine, Hx Nerve Disease, Hx Seizures, Hx Transient Ischemic Attacks (TIA), Other Neuro Impairments/ Disorders - Hx moyamoya disease. 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 X2. endarterectomy-left internal carotid- STENT PLACED. INTERCRANIAL BYPASS X2 IN [place]. APPENDIX. ENDOMETRIAL ABLATION Hx Anesthesia Reactions: No - Immunization History Date of Tetanus Vaccine: unk Date of Influenza Vaccine: 06/18 Infectious Disease History: No Infectious Disease History: Reports: Hx Clostridium Difficile Denies: Hx Hepatitis, Hx Human Immunodeficiency Virus (HIV), Hx of Known/ Suspected MRSA, Hx Shingles, Hx Tuberculosis, Hx Known/Suspected VRE, Hx Known/ Suspected VRSA, History Other Infectious Disease, Traveled Outside the [place] in Last 30 Days - Family History Known Family History: Positive: Cardiac Disease, Other - bipolar disorder; alcohol abuse - Social History Alcohol Use: None Alcohol Amount: once/year Hx Substance Use: No Substance Use Type: Reports: None Hx Tobacco Use: Yes Smoking Status (MU): Former Smoker Type: Cigarettes Amount Used/How Often: quit in 2004 Have You Smoked in the Last Year: No Review of Systems Positive: Fatigue - generalized weakness Negative: Blurred Vision Positive: Chest Pain Positive: Shortness Of Breath - chronic Positive: Nausea. Negative: Vomiting Neurological: Other - positive - dizziness Negative: Headache All Other Systems Reviewed And Are Negative: Yes Physical Exam - Summary Physical Exam Summary: VITAL SIGNS: Reviewed. GENERAL: Patient is a well-developed and obese female who is lying comfortable in the stretcher. Patient is not in any acute respiratory distress. She is on 2 L o2 NC chronically. HEAD AND FACE: No signs of trauma. No ecchymosis, hematomas or skull depressions. No sinus tenderness. EYES: PERRLA, EOMI x 2, No injected conjunctiva, no nystagmus. EARS: Hearing grossly intact. Ear canals and tympanic membranes are within normal limits. MOUTH: Oropharynx within normal limits. NECK: Supple, trachea is midline, no adenopathy, no JVD, no carotid bruit, no c- spine tenderness, neck with full ROM. CHEST: Symmetric, no tenderness at palpation. LUNGS: Coarse breath sounds bilaterally. No wheezing or crackles. CVS: Regular rate and rhythm, S1 and S2 present, no murmurs or gallops appreciated. ABDOMEN: Soft, non-tender. No signs of distention. No rebound, no guarding, and no masses palpated. Bowel sounds are normal. EXTREMITIES: FROM in all major joints, no edema, no cyanosis or clubbing. NEURO: Alert and oriented x 3. No acute neurological deficits. Speech is normal and follows commands. SKIN: Dry and warm. Triage Information Reviewed: Yes Vital Signs On Initial Exam: Initial Vitals Temp Pulse Resp BP Pulse Ox 98.0 F 87 16 140/64 96 09/11/19 09:19 09/11/19 09:19 09/11/19 09:19 09/11/19 09:19 09/11/19 09:19 Vital Signs Reviewed: Yes - [place] Coma Scale Best Eye Response: 4 - Spontaneous Best Motor Response: 6 - Obeys Commands Best Verbal Response: 5 - Oriented Coma Scale Total: 15 Procedures - Sedation Patient Received Moderate/Deep Sedation with Procedure: No Diagnostics - Vital Signs Vital Signs Temp Pulse Resp BP Pulse Ox 09/11/19 09:19 98.0 F 87 16 140/64 96 - Laboratory Result Diagrams: 09/12/19 05:40 09/12/19 05:40 Lab Statement: Any lab studies that have been ordered have been reviewed, and results considered in the medical decision making process. - Radiology CXR Radiology Interpretation Completed By: Radiologist Summary of Radiographic Findings: IMPRESSION: NO ACTIVE CARDIOPULMONARY DISEASE. THIS REPORT WAS REVIEWED BY ED PHYSICIAN. - CT BRAIN CT CT Interpretation Completed By: Radiologist Summary of CT Findings: IMPRESSION: No intracranial mass or hemorrhage is noted. THIS REPORT WAS REVIEWED BY ED PHYSICIAN. - EKG 0910 Cardiac Rate: NL - rate of 86 BPM EKG Rhythm: Sinus Rhythm Summary of EKG Findings: EKG showed NSR with rate of 86 BPM, no ST elevations, normal axis, similar to previous EKG done 03/14/19. ED physician has reviewed and interpreted this EKG. Re-Evaluation - Re-Evaluation First Eval Re-Evaluation Time: 11:34 Comment: Patient reported to nurse Harrington that her weakness was more so at her right side. Patient had initially described this weakness as generalized and non -focal. In room, patient states that when she awoke this morning, she thought she had slower and softer speech. She also believes that she had some weakness to her right side as well. Patient awoke with these Sx some time between 0800- 0830. Last known well is 2200 last night, 09/10/19. She is also on Plavix. Therefore, patient is not a TPA candidate. GCS 15, NIH 0. Brain CT to be obtained. Chest Pain Course/Dx - Course Assessment/Plan: Patient is a 58 y/o F w/ Hx of AR, cardiac stents, HTN, HLD, diabetes, and moyamoya disease with two arterial craniotomies who presents to [facility] with complaints of midsternal chest pain that onset when she awoke this morning, 09/11/19. Patient endorses some dizziness and nausea but denies vomiting, KHANNA, and blurred vision. Dizziness is characterized as feeling near- syncopal. Patient is on Plavix. She endorses some SOB but characterizes this as her baseline, chronic SOB secondary to COPD. Patient is on 2 L o2 at home. On triage, pain is rated 4/10, nothing is noted to aggravate/alleviate Sx. She notes that she uses a walker to get around. Home medications and allergies are reviewed. Past medical history: Diabetes, CAD, morbid obesity, seizure disorder, UTI, COPD, bipolar disorder, PTSD, hypertension, CVA, dyslipidemia, CHF and Moyamoya disorder. In the ED course the patient was placed in a monitor technician, IV access was obtained. EKG: normal sinus rhythm at [address] elevations. Normal axis. Chest x-ray impression: No active cardiopulmonary disease. Blood tests without any significant abnormality except for glucose of 270 and magnesium 1.8. First troponin is 0.00. In the ED course the patient was given aspirin and magnesium. Hear score is = 4. Patient scales new information stating that she has right-sided weakness and slow speech. I repeated my physical exam and the patient is neurovascularly intact. The NIH score is equal to 0 and the GCS is 15. Head CT impression: No intracranial mass or hemorrhage is noted. I discuss my physical exam and test results with Dr. Loya from the hospitalist services and he agrees to admit the patient to his services. The patient is hemodynamically stable alert and oriented x 3. - Chest Pain Differential Diagnosis/HQI/PQRI: Acute AR, ACS, Angina, CHF, Chest Wall, GI Disease, Lower Respiratory Infection, Pulmonary Edema - Diagnoses Provider Diagnoses: Chest pain, Weakness - Provider Notifications Discussed Care Of Patient With: Yana Loya Time Discussed With Above Provider: 12:49 Instructed by Provider To: Other - Patient's case was discussed with Dr. Loya, Dr. Loya accepts for admission. Discharge ED - Sign-Out/Discharge Documenting (check all that apply): Patient Departure - admit - Discharge Plan Condition: Stable Disposition: ADMITTED TO [facility] - Billing Disposition and Condition Condition: STABLE Disposition: Admitted to [facility] - Attestation Statements Document Initiated by Chanoibnusrat: Yes Documenting Scribe: GERBER JASON Provider For Whom Brittnee is Documenting (Include Credential): ROSSY OSBORNE MD Scribe Attestation: GERBER Michaels, scribed for ROSSY OSBORNE MD on 09/12/19 at 1051. Scribe Documentation Reviewed: Yes Provider Attestation: The documentation as recorded by the GERBER españa accurately reflects the service I personally performed and the decisions made by me, ROSSY OSBORNE MD Status of Scribe Document: Viewed
[2019-09-11 10:05] LABS: ABS Basophils 0.1 10^3/ul (0-0.2); ABS Eosinophils 0.1 10^3/ul (0-0.6); ABS Lymphocytes 2.3 10^3/ul (1.0-4.8); ABS Monocytes 0.6 10^3/ul (0-0.8); ABS Neutrophils 4.8 10^3/ul (1.5-7.7); Eosinophil % 1.4 %; Hematocrit 42 % (35-47); Hemoglobin 14.1 g/dL (12.0-16.0); Lymphocyte % 30.1 %; Mean Corpuscular HGB Conc 34 g/dL (31-36); Mean Corpuscular Hemoglobin 27 pg (27-31); Mean Corpuscular Volume 81 fL (80-97); Mean Platelet Volume 8.8 fL (7.4-10.4); Nucleated Red Blood Cells % 0.2; Platelet Count 186 10^3/uL (150-450); Red Blood Count 5.16 10^6 /uL (3.70-4.87); Red Cell Distribution Width 20 % (10-15); White Blood Count 7.8 10^3/uL (3.5-10.8)
--- OUTSIDE RECORDS SUMMARY | 2019-09-11 10:05 | XMS REPORT ---
:1960 Author Organization [facility] Care Team Providers Name Role Phone Unavailable Unavailable Unavailable Problems Condition Condition Condition Status Onset Resolution Last Treating Comments Name Details Category Date Date Treatment Clinician Date Pain frequent Pain Mgmt Resolve 2019-02-05 Becca pain d 06-20 10:30:00 (Andrés) 08:20: Walker 00 [id number] Cardio edema Cardiovasc Resolve 2018-08-16 Becca ular d 06-20 10:00:00 (Andrés) 08:20: Walker 00 [id number] Respiratory dyspnea Respirator Resolve 2019-02-05 Becca present y d 06-20 10:30:00 (Andrés) 08:20: Walker 00 [id number] Respiratory lung sounds Respirator Resolve 2019-02-05 Becca deficit y d 06-20 10:30:00 (Andrés) 08:20: Walker 00 [id number] Endo/Gage anti-coagul Endo/Gage Resolve 2018-07-31 Becca ation d 06-20 11:58:00 (Andrés) therapy 08:20: Walker 00 [id number] Integument skin Integument Active Becca integrity 06-20 (Andrés) risk 08:20: Walker [id number] Elimination urinary Eliminatio Resolve 2018-08-16 Becca incontinenc n d 06-20 10:00:00 (Andrés) e 08:20: Walker 00 [id number] Neuro confusion Neuro/Emot Active Becca present ion 06-20 (Andrés) 08:20: Walker 00 [id number] Neuro anxiety Neuro/Emot Active Becca present ion 06-20 (Andrés) 08:20: Walker 00 [id number] Neuro impaired Neuro/Emot Active Becca decision-ma ion 06-20 (Andrés) caty 08:20: Walker [id number] Activity ADL Activity Active Becca assistance 06-20 (Andrés) required 08:20: Walker 00 [id number] Safety cannot be Safety Active Becca left alone 06-20 (Andrés) 08:20: Walker 00 [id number] Safety fall risk Safety Resolve 2019-08-13 Becca factor d 06-20 10:55:00 (Andrés) present 08:20: Walker [id number] Safety risk for Safety Resolve 2019-08-13 Becca hospitaliza d 06-20 10:55:00 (Andrés) tion 08:20: Walker [id number] Medication oral med Meds Resolve 2018-07-31 Becca assistance d 06-20 11:58:00 (Andrés) required 08:20: Walker 00 [id number] Medication potential Meds Resolve 2018-07-31 Becca clinically d 06-20 11:58:00 (Andrés) significant 08:20: Walker medication 00 [id number] issue Musculoskel requires Musculoske Resolve 2019-06-13 Becca etal human letal d 06-20 13:00:00 (Andrés) assist to 08:20: Walker leave home 00 [id number] Musculoskel transfer Musculoske Resolve 2019-06-13 Becca etal assistance letal d 06-20 13:00:00 Guidelli required 08:20: [id number] 00 Respiratory oxygen Respirator Resolve 2019-02-05 Loreta treatments y d 06-26 10:30:00 Guy-Zos in home 10:28: h [id number] Safety can be left Safety Active Loreta alone for 06-26 Independence-Zos only short 10:28: h [id number] periods 00 Elimination urinary Eliminatio Resolve 2017-102018-08-16 Loreta frequency n d 30 10:00:00 Guy-Zos 11:58: h [id number] Neuro knowledge/s Neuro/Emot Active 2017-10 Loreta kill ion Guy-Zos deficit: cg 11:58: h [id number] 00 Endo/Gage anti-coagul Endo/Gage Resolve 2017-102019-01-29 Loreta ation d 1-15 12:45:00 Guy-Zos therapy 10:00: h [id number] 00 Neuro depressive Neuro/Emot Active 2017-10 Loreta feelings ion 1-15 [facility] present 10:00: h [id number] 00 Medication oral med Meds Resolve 2017-102019-02-05 Loreta assistance d 1-15 10:30:00 [facility]os required 10:00: h [id number] 00 Medication injectable Meds Resolve 2017-102019-02-05 Loreta med d 1-15 10:30:00 Guy-Zos assistance 10:00: h [id number] required 00 Medication potential Meds Active 2017-10 Loreta clinically -15 [facility]os significant 10:00: h [id number] medication 00 issue Endo/Gage knowledge/s Endo/Gage Resolve 2019-01-08 Marlene kill d 1-16 15:40:00 Carrier RN deficit: pt 14:45: 00 Nutrition nutritional Nutrition Resolve 2019-01-29 Marlene restriction d 1-16 12:45:00 Carrier RN s 14:45: 00 Activity self-care Activity Resolve 2019-01-15 Marlene deficit d 1-16 11:25:00 Carrier RN 14:45: 00 Cardio hypertensio Cardiovasc Resolve 2019-01-29 Marlene n ular d 2-12 12:45:00 Carrier RN 10:00: 00 Neuro knowledge/s Neuro/Emot Active Marlene kill ion 3-13 Carrier RN deficit: pt 13:30: 00 Respiratory nebulizer Respirator Active Cherrise treatment y 12-25 Emily in home 09:30: [id number] 00 Endo/Gage glucose Endo/Gage Resolve 2019-01-29 Cherrise tolerance d - 12:45:00 Emily problem 09:30: [id number] Nutrition knowledge/s Nutrition Resolve 2019-01-29 Cherrise kill d 3- 12:45:00 [place] deficit: pt 09:30: [id number] 00 Elimination urinary Eliminatio Resolve 2019-01-15 Cherrise incontinenc n d 12-25 11:25:00 Emily e 09:30: [id number] 00 Elimination urinary Eliminatio Resolve 2019-01-15 Cherrise urgency n d 12-25 11:25:00 Emily 09:30: [id number] 00 Endo/Gage insulin Endo/Gage Resolve 2019-02-05 Cherrise admn d 01-01 10:30:00 [place] dependence 09:55: [id number] 00 Endo/Gage glucose Endo/Gage Resolve 2019-02-05 Cherrise testing d 01-01 10:30:00 Emily dependence 09:55: [id number] 00 Elimination urinary Eliminatio Resolve 2019-01-15 Cherrise frequency n d 01-01 11:25:00 [place] 09:55: [id number] 00 Elimination recurring Eliminatio Resolve 2019-02-05 Cherrise UTI n d 01-01 10:30:00 Emily 09:55: [id number] 00 Respiratory knowledge/s Respirator Resolve 2019-01-08 Marlene kill y d 01-08 15:40:00 Carrier RN deficit: cg 15:40: 00 Respiratory Incentive Respirator Resolve 2019-04-15 Marlene Spirometer y d 01-08 14:25:00 Carrier RN /Acapella 15:40: Device 00 treatments in home Safety knowledge/s Safety Resolve 2019-08-13 Marlene kill d 01-08 10:55:00 Carrier RN deficit: cg 15:40: 00 Endo/Gage knowledge/s Endo/Gage Resolve 2019-02-05 Marlene kill d 01-29 10:30:00 Carrier RN deficit: pt 12:45: 00 Nutrition nutritional Nutrition Active Marlene restriction 02-05 Carrier RN s 10:30: 00 Endo/Gage knowledge/s Endo/Gage Resolve 2019-04-09 Marlene kill d 02-12 12:50:00 Carrier RN deficit: pt 11:55: 00 Activity self-care Activity Active Marlene deficit 02-12 Carrier RN 11:55: 00 Medication injectable Meds Resolve 2019-04-15 Marlene med d 5-14 14:25:00 Carrier RN assistance 11:55: required 00 Medication oral med Meds Resolve 2019-04-15 Marlene assistance d 7-15 14:25:00 Carrier RN required 14:25: 00 Medication oral med Meds Active Marlene assistance 8-13 Carrier RN required 15:30: 00 Respiratory oxygen Respirator Active Terra treatments y 9-03 [place] in home 11:00: RN 00 Respiratory lung sounds Respirator Active Terra deficit y - [place] 11:00: RN 00 Endo/Gage anti-coagul Endo/Gage Resolve 2019-08-07 Terra ation d 9- 12:10:00 [place] therapy 11:00: RN 00 Pain frequent Pain Mgmt Active Terra pain - [place] 13:00: RN 00 Nutrition changing Nutrition Active Terra weight/appe 06-13 [place] tite 13:00: RN 00 Elimination urinary Eliminatio Active 2018-10 Tiffani incontinenc n 0-08 Nila e 09:15: [employer] 00 [id number] Elimination constipatio Eliminatio Active 2018-10 Marlene n n 1-06 Carrier RN 12:10: 00 Cardio hypertensio Cardiovasc Active 2018-10 Marlene n ulfrankie 1-12 Carrier RN 10:55: 00 Medication injectable Meds Active 2018-10 Marlene med 10-13 Carrier RN assistance 10:55: required 00 Musculoskel requires Musculoske Active 2018-10 Marlene etal human letal 1-12 Carrier RN assist to 10:55: leave home 00 Musculoskel transfer Musculoske Active 2018-10 Marlene etal assistance letal 12 Carrier RN required 10:55: 00 Elimination diarrhea Eliminatio Active 2018-10 Tiffani n 10-27 Nila 09:00: [employer] 00 [id number] Safety risk for Safety Active 2018-10 Tiffani hospitaliza 10-27 Nila tion 09:00: [employer] 00 [id number] Allergies, Adverse Reactions, Alerts Allergy Name Allergy Status Severity Reaction(s) Onset Inactive Treating Comments Type Date Date Clinician morphine Base Active Unknown Reaction Barb Beam Ingredient Unknown 06-19 clavulanic Base Active Unknown Reaction Barb Beam acid Ingredient Unknown 06-19 nitrofuranto Base Active Unknown Reaction Barb Beam in Ingredient Unknown 06-19 meperidine Base Active Unknown Reaction Barb Beam Ingredient Unknown 06-19 Medications Ordered Filled Start Stop Current Ordering Indication Dosage Frequency Signature Comments Components Medication Medication Date Date Medication? Clinician (SIG) Name Name acetaminoph acetaminoph No Crowe 1 Unknown en 325 mg en 325 mg Sarah [facility] tablet capsule capsule Proventil Proventil No Crowe 2 puffs Unknown HFA 90 HFA 90 Sarah [facility] mcg/actuati mcg/actuati on aerosol on aerosol inhaler inhaler ALPRAZolam ALPRAZolam No Crowe 1 mg Unknown 1 mg tablet 1 mg tablet Sarah [facility] asenapine asenapine No Crowe 10 mg Unknown 10 mg 10 mg Sarah [facility] sublingual sublingual tablet tablet aspirin, aspirin, No Crowe 325 mg Unknown buffered buffered Sarah [facility] 325 mg 325 mg tablet tablet atorvastati atorvastati No Crowe 20 mg Unknown n 20 mg n 20 mg Sarah [facility] tablet tablet Fiorinal-Co Fiorinal-Co No Crowe 2 caps Unknown deine #3 30 deine #3 30 Sarah [facility] mg-50 mg-50 mg-325 mg-325 mg-40 mg mg-40 mg capsule capsule carvedilol carvedilol 2017- [place] Unknown Unknown 6.25 mg 6.25 mg 06-20 Abiel [facility] tablet tablet Brandon Vitamin D3 Vitamin D3 No Crowe 1999 Unknown 2,000 unit 2,000 unit Sarah [facility] units capsule capsule dilTIAZem dilTIAZem 2017- No [place] Unknown Unknown 120 mg 120 mg 06-20 Abiel [facility] tablet tablet Brandon Depakote Depakote No Crowe 1-2 Unknown 500 mg 500 mg Sarah [facility] tablet,lauryn tablet,lauryn yed release yed release Colace 100 Colace 100 2017- No [place] Unknown Unknown mg capsule mg capsule 06-20 Abiel [facility] furosemide furosemide No Crowe 20 mg Unknown 20 mg 20 mg Sarah [facility] tablet tablet gabapentin gabapentin 2017- No [place] Unknown Unknown 300 mg 300 mg 06-20 Abiel [facility] capsule capsule Brandon glimepiride glimepiride No Crowe 4 mg Unknown 4 mg tablet 4 mg tablet Sarah [facility] liraglutide liraglutide No Crowe 1 Unknown 0.6 mg/0.1 0.6 mg/0.1 Sarah [facility] injecti mL (18 mg/3 mL (18 mg/3 on mL) mL) subcutaneou subcutaneou s pen s pen injector injector lisinopril lisinopril 2017- No [place] Unknown Unknown 20 mg 20 mg 06-20 Abiel [facility] tablet tablet Brandon Oyster Oyster No Crowe 500 mg Unknown Shell Shell Sarah [facility] Calcium 500 Calcium 500 500 mg 500 mg calcium calcium (1,250 mg) (1,250 mg) tablet tablet multivitami multivitami 2017- No [place] Unknown Unknown n capsule n capsule 06-20 Abiel [facility] nystatin nystatin No Crowe topical Unknown 100,000 100,000 Sarah [facility] unit/gram unit/gram topical topical cream cream ondansetron ondansetron No Crowe 4 mg Unknown 4 mg 4 mg Sarah [facility] disintegrat disintegrat ing tablet ing tablet PARoxetine PARoxetine No Crowe 20 mg Unknown 20 mg 20 mg Sarah [facility] tablet tablet Klor-Con Klor-Con No Crowe 20 meq Unknown M20 mEq M20 mEq Sarah [facility] tablet,exte tablet,exte nded nded release release raNITIdine raNITIdine No Crowe 150 mg Unknown 150 mg 150 mg Sarah [facility] capsule capsule oxygen oxygen No [place] Unknown Unknown 06-20 Abiel [facility] clopidogrel clopidogrel 2017- No [place] Unknown Unknown 75 mg 75 mg 06-20 Abiel [facility] tablet tablet Brandon desvenlafax desvenlafax 2017- No [place] Unknown Unknown ine ine 06-20 1030 Abiel [facility] succinate succinate Brandon ER 100 mg ER 100 mg tablet,exte tablet,exte nded nded release 24 release 24 hr hr diphenhydrA diphenhydrA 2017- No [place] Unknown Unknown MINE 25 mg MINE 25 mg 06-20 ,Abiel capsule capsule Brandon Depakote ER Depakote ER 2017- No [place] Unknown Unknown 500 mg 500 mg 06-20 ,Abiel tablet,exte tablet,exte Brandon nded nded release release famotidine famotidine 2017- No [place] Unknown Unknown 40 mg 40 mg 06-20 ,Abiel tablet tablet Brandon gabapentin gabapentin 2017- No [place] Unknown Unknown 100 mg 100 mg 06-20 ,Abiel capsule capsule Brandon glimepiride glimepiride 2017- No [place] Unknown Unknown 4 mg tablet 4 mg tablet 06-20 ,Abiel Taylor Nystop Nystop No [place] Unknown Unknown 100,000 100,000 06-20 Abiel [facility] unit/gram unit/gram Brandon topical topical powder powder atorvastati atorvastati 2017- No [place] Unknown Unknown n 80 mg n 80 mg 06-20 Abiel [facility] tablet tablet Brandon carvedilol carvedilol 2017-10- No [place] Unknown Unknown 6.25 mg 6.25 mg 07-02 ,Abiel tablet tablet Brandon Colace 100 Colace 100 2017-10- No [place] Unknown Unknown mg capsule mg capsule 07-02 Abiel [facility] diphenhydrA diphenhydrA 2017-10- No [place] Unknown Unknown MINE 25 mg MINE 25 mg 15 ,Abiel capsule capsule Brandon Depakote ER Depakote ER 2017-10- No [place] Unknown Unknown 500 mg 500 mg 09-27 ,Abiel tablet,exte tablet,kelly Taylor nded nded release release Topamax 50 Topamax 50 2017- No Kandy Unknown Unknown mg tablet mg tablet 06-27 ,Willian Saphris Saphris 2017- No Kandy Unknown Unknown (black (black 06-27 ,Willian golden) 10 [place]) 10 mg mg sublingual sublingual tablet tablet pantoprazol pantoprazol 2017- No [place] Unknown Unknown e 40 mg e 40 mg 06-27 ,Abiel tablet,lauryn tablet,lauryn Brandon yed release yed release raNITIdine raNITIdine 2017- [place] Unknown Unknown 300 mg 300 mg 06-27 Abiel [facility] tablet tablet Brandon Calcium 500 Calcium 500 2017- [place] Unknown Unknown With D 500 With D 500 06-27 Abiel [facility] (1,250 mg (1,250 Brandon mg)-400 mg)-400 unit tablet unit tablet Vitamin D3 Vitamin D3 2018- No [place] Unknown Unknown 400 unit 400 unit 06-27 Abiel [facility] capsule capsule Brandon Victoza Victoza No [place] Unknown Unknown 2-Jeison 0.6 2-Jeison 0.6 06-27 Abiel [facility] mg/0.1 mL mg/0.1 mL Brandon (18 mg/3 (18 mg/3 mL) mL) subcutaneou subcutaneou s pen s pen injector injector atorvastati atorvastati 2017-10- No [place] Unknown Unknown n 80 mg n 80 mg 0-31 07- Abiel [facility] tablet tablet Brandon Wellbutrin Wellbutrin 2017-10- Kandy Unknown Unknown XL 150 mg XL 150 mg 08-08 ,Willian 24 hr 24 hr tablet, tablet, extended extended release release desvenlafax desvenlafax 2017-10- No Kandy Unknown Unknown ine ER 100 ine ER 100 0-30 10-30 MD,Willian mg mg tablet,exte tablet,exte nded nded release 24 release 24 hour hour desvenlafax desvenlafax 2017-10- No Kandy Unknown Unknown ine ER 50 ine ER 50 0-30 10-30 ,Willian mg mg tablet,exte tablet,exte nded nded release 24 release 24 hour hour buPROPion buPROPion 2017-10- No Kandy Unknown Unknown HCl XL 300 HCl XL 300 10-08 ,Willian mg 24 hr mg 24 hr tablet, tablet, extended extended release release Topamax 50 Topamax 50 2017-10- Kaitlynn Unknown Unknown mg tablet mg tablet 10-09 Geraldo [facility] doxycycline doxycycline 2017-10- No [place] Unknown Unknown monohydrate monohydrate 10-15 Abiel [facility] 100 mg 100 mg Brandon capsule capsule lithium lithium 2017-10- No Kandy Unknown Unknown carbonate carbonate 11-28 ,Willian 300 mg 300 mg tablet tablet Depakote ER Depakote ER 2017-10- No Kandy Unknown Unknown 500 mg 500 mg 11-28 ,Willian tablet,exte tablet,exte nded nded release release sennosides sennosides 2017-10 No [place] Unknown Unknown 8.6 8.6 11-28 Abiel [facility] mg-docusate mg-docusate Brandon sodium 50 sodium 50 mg tablet mg tablet lithium lithium 2018- No Kandy Unknown Unknown carbonate carbonate 10-23 ,Willian 300 mg 300 mg tablet tablet Depakote ER Depakote ER 2018- No Kandy Unknown Unknown 500 mg 500 mg 10-23 ,Willian tablet,exte tablet,exte nded nded release release lithium lithium 2018- No Kandy Unknown Unknown carbonate carbonate 11-29 ,Willian 300 mg 300 mg tablet tablet diphenhydrA diphenhydrA 2018- No [place] Unknown Unknown MINE 25 mg MINE 25 mg 12-14 ,Abiel capsule capsule Brandon clindamycin clindamycin 2018- No [place] Unknown Unknown HCl 300 mg HCl 300 mg 12-25 ,Deb capsule capsule dilTIAZem dilTIAZem No [place] Unknown Unknown 120 mg 120 mg 06-20 ,Abiel tablet tablet Brandon gabapentin gabapentin 2018- No [place] Unknown Unknown 300 mg 300 mg 06-20 ,Abiel capsule capsule Brandon lisinopril lisinopril No [place] Unknown Unknown 20 mg 20 mg 06-20 Abiel [facility] tablet tablet Brandon multivitami multivitami No [place] Unknown Unknown n capsule n capsule 06-20 Abiel [facility] clopidogrel clopidogrel No [place] Unknown Unknown 75 mg 75 mg 06-20 ,Abiel tablet tablet Brandon gabapentin gabapentin No [place] Unknown Unknown 100 mg 100 mg 06-20 ,Abiel capsule capsule Brandon glimepiride glimepiride No [place] Unknown Unknown 4 mg tablet 4 mg tablet 06-20 Abiel [facility] carvedilol carvedilol 2018-0 2018- No [place] Unknown Unknown 6.25 mg 6.25 mg 06-20 ,Abiel tablet tablet Brandon Saphris Saphris 2017- No Kandy Unknown Unknown (black (black 06-20 ,Willian golden) 10 golden) 10 mg mg sublingual sublingual tablet tablet pantoprazol pantoprazol No [place] Unknown Unknown e 40 mg e 40 mg 06-20 ,Abiel tablet,lauryn tablet,lauryn Brandon yed release yed release raNITIdine raNITIdine No [place] Unknown Unknown 300 mg 300 mg 06-20 ,Abiel tablet tablet Brandon Calcium 500 Calcium 500 2017- No [place] Unknown Unknown With D 500 With D 500 06-20 Abiel [facility] mg (1,250 mg (1,250 Brandon mg)-400 mg)-400 unit tablet unit tablet Vitamin D3 Vitamin D3 2018- No [place] Unknown Unknown 1,000 unit 1,000 unit 01-01 Abiel [facility] capsule capsule Brandon atorvastati atorvastati 2017- No [place] Unknown Unknown n 80 mg n 80 mg 1 10- ,Abiel tablet tablet Brandon atorvastajudit atorvastati 2017-10 No [place] Unknown Unknown n 80 mg n 80 mg 0-30 ,Abiel tablet tablet Brandon desvenlafax desvenlafax 2017-10 No Kandy Unknown Unknown ine ER 100 ine ER 100 0-30 MD,Willian mg mg tablet,exte tablet,exte nded nded release 24 release 24 hour hour desvenlafax desvenlafax 2017-10 No Kandy Unknown Unknown ine ER 50 ine ER 50 0-30 MD,Willian mg mg tablet,exte tablet,exte nded nded release 24 release 24 hour hour carvedilol carvedilol 2017-10- No [place] Unknown Unknown 6.25 mg 6.25 mg 07-02 ,Abiel tablet tablet Brandon Saphris Saphris 2018- No [place] Unknown Unknown (black (black 06-27 ,Willian golden) 10 golden) 10 mg mg sublingual sublingual tablet tablet Calcium 500 Calcium 500 2018- No [place] Unknown Unknown With D 500 With D 500 06-27 Abiel [facility] mg (1,250 mg (1,250 Brandon mg)-400 mg)-400 unit tablet unit tablet Topamax 50 Topamax 50 2017-10- No Kaitlynn Unknown Unknown mg tablet mg tablet 10-09 Geraldo [facility] Depakote ER Depakote ER No [place] Unknown Unknown 500 mg 500 mg 10-23 Willian [facility] tablet,exte tablet,exte nded nded release release diphenhydrA diphenhydrA No [place] Unknown Unknown MINE 25 mg MINE 25 mg 12-14 ,Abiel capsule capsule Brandon lithium lithium 2018- No Kandy Unknown Unknown carbonate carbonate 11-29 Willian [facility] 300 mg 300 mg tablet tablet Colace 100 Colace 100 2017-10- No [place] Unknown Unknown mg capsule mg capsule 01-01 Abiel [facility] ipratropium ipratropium No [place] Unknown Unknown bromide bromide 02-19 Abiel [facility] 0.02 % 0.02 % Brandon solution solution for for inhalation inhalation albuterol albuterol No [place] Unknown Unknown sulfate 2.5 sulfate 2.5 02-19 Abiel [facility] mg/3 mL mg/3 mL Brandon (0.083 %) (0.083 %) solution solution for for nebulizatio nebulizatio n n predniSONE predniSONE 2018- No [place] Unknown Unknown 20 mg 20 mg 12-28 Abiel [facility] tablet tablet Brandon benzonatate benzonatate No [place] Unknown Unknown 100 mg 100 mg 12-28 Abiel [facility] capsule capsule Brandon doxycycline doxycycline 2018- No [place] Unknown Unknown hyclate 100 hyclate 100 12-28- Abiel [facility] mg capsule mg capsule Brandon Rexulti 0.5 Rexulti 0.5 2018- No [place] Unknown Unknown mg tablet mg tablet 01-15 Willian [facility] Rexulti 1 Rexulti 1 2018- No [place] Unknown Unknown mg tablet mg tablet 01-22 Willian [facility] LaMICtal 25 LaMICtal 25 2018- No Kandy Unknown Unknown mg tablet mg tablet 01-16 Willian [facility] Vitamin D3 Vitamin D3 No [place] Unknown Unknown 2,000 unit 2,000 unit 4- MD,Deb tablet tablet Colace 100 Colace 100 No [place] Unknown Unknown mg capsule mg capsule 01-01 MD, calcium calcium No [place] Unknown Unknown 500 mg 500 mg 01-01 MD,Deb LaMICtal 25 LaMICtal 2018- No Kandy Unknown Unknown mg tablet mg tablet 01-29 MD,Willian LaMICtal LaMICtal 2018- No Kandy Unknown Unknown mg tablet mg tablet 01-29 ,Willian Invokana Invokana 2018- No [place] Unknown Unknown 100 mg 100 mg 02-20 MD, tablet tablet Diflucan Diflucan No [place] Unknown Unknown 150 mg 150 mg 02-20 MD, tablet tablet LaMICtal LaMICtal No Kandy Unknown Unknown mg tablet mg tablet 03-05 ,Willian Topamax 50 Topamax 50 2018- No Kaitlynn Unknown Unknown mg tablet mg tablet 02-26 ,Geraldo gabapentin gabapentin No Kandy Unknown Unknown 600 mg 600 mg 03-05 ,Willian tablet tablet Topamax 50 Topamax 50 2018- No Kaitlynn Unknown Unknown mg tablet mg tablet 02-26 ,Geraldo Topamax 50 Topamax 50 2018- No Kaitlynn Unknown Unknown mg tablet mg tablet 04-09 08 ,Geraldo Topamax 50 Topamax 50 2018- No Kaitlynn Unknown Unknown mg tablet mg tablet 05-21 ,Geraldo Rexulti 2 Rexulti 2 2018- No Kandy Unknown Unknown mg tablet mg tablet 05-31 ,Willian Lantus Lantus 2018-10 Yes Pate Unknown Unknown Solostar Solostar 0- ,Deb U-100 U-100 Insulin 100 Insulin 100 unit/mL (3 unit/mL (3 mL) mL) subcutaneou subcutaneou s pen s pen Topamax 50 Topamax 50 2018-10 Yes Kaitlynn Unknown Unknown mg tablet mg tablet 0- MD,Geraldo Saphris 5 Saphris 5 2018-10 Yes Kandy Unknown Unknown mg mg 0- Willian [facility] sublingual sublingual tablet tablet Rexulti 2 Rexulti 2 2018- No Kandy Unknown Unknown mg tablet mg tablet 05-31 Willian [facility] Invokana Invokana No [place] Unknown Unknown 100 mg 100 mg 02-20 ,Deb tablet tablet carvedilol carvedilol 2017-10 No [place] Unknown Unknown 6.25 mg 6.25 mg ,Abiel tablet tablet Brandon Latuda 20 Latuda 20 2018-10- Yes Kandy Unknown Unknown mg tablet mg tablet 10-02 Willian [facility] Latuda 40 Latuda 40 2018-10- Yes Kandy Unknown Unknown mg tablet mg tablet 10-09 Willian [facility] Aimovig Aimovig 2018-10 Yes Kaitlynn Unknown Unknown Autoinjecto Autoinjecto 10-09 Geraldo [facility] r 70 mg/mL r 70 mg/mL subcutaneou subcutaneou s s auto-inject auto-inject or or Latuda 60 Latuda 60 2018-10 Yes Kandy Unknown Unknown mg tablet mg tablet 10-27 Willian [facility] Vital Signs Vital Name Observation Time Observation Value Comments SYSTOLIC mm[Hg] 2019-06-13 18:07:48 142 mm[Hg] mm[Hg] Method: Stand DIASTOLIC mm[Hg] 2019-06-13 18:07:48 72 mm[Hg] mm[Hg] Method: Stand Procedures This patient has no known procedures. Results This patient has no known results.
--- OUTSIDE RECORDS SUMMARY | 2019-09-11 10:05 | XMS REPORT ---
:1960 Author Organization [facility] Care Team Providers Name Role Phone Unavailable Unavailable Unavailable Problems Condition Condition Condition Status Onset Resolution Last Treating Comments Name Details Category Date Date Treatment Clinician Date Pain frequent Pain Mgmt Resolve 2019-02-05 Becca pain d 06-20 10:30:00 (Andrés) 08:20: Walker 00 [id number] Cardio edema Cardiovasc Resolve 2018-08-16 Becca ular d 06-20 10:00:00 (Andrés) 08:20: Walker 00 [id number] Respiratory dyspnea Respirator Resolve 2019-02-05 Becca present y d 06-20 10:30:00 (Andrés) 08:20: Walker 00 [id number] Respiratory lung sounds Respirator Resolve 2019-02-05 Becca deficit y d 06-20 10:30:00 (Andrés) 08:20: Walker 00 [id number] Endo/Gage anti-coagul Endo/Gage Resolve 2018-07-31 Becca ation d 06-20 11:58:00 (Andrés) therapy 08:20: Walker 00 [id number] Integument skin Integument Active Becca integrity 06-20 (Andrés) risk 08:20: Walker 00 [id number] Elimination urinary Eliminatio Resolve 2018-08-16 Becca incontinenc n d 06-20 10:00:00 (Andrés) e 08:20: Walker 00 [id number] Neuro confusion Neuro/Emot Active Becca present ion 06-20 (Andrés) 08:20: Walker 00 [id number] Neuro anxiety Neuro/Emot Active Becca present ion 06-20 (Andrés) 08:20: Walker 00 [id number] Neuro impaired Neuro/Emot Active Becca decision-ma ion 06-20 (Andrés) caty 08:20: Walker [id number] Activity ADL Activity Active Becca assistance 06-20 (Andrés) required 08:20: Walker 00 [id number] Safety cannot be Safety Active Becca left alone 06-20 (Andrés) 08:20: Walker 00 [id number] Safety fall risk Safety Resolve 2019-08-13 Becca factor d 06-20 10:55:00 (Andrés) present 08:20: Walker [id number] Safety risk for Safety Resolve 2019-08-13 Becca hospitaliza d 06-20 10:55:00 (Andrés) tion 08:20: Walker [id number] Medication oral med Meds Resolve 2018-07-31 Becca assistance d 06-20 11:58:00 (Andrés) required 08:20: Walker 00 [id number] Medication potential Meds Resolve 2018-07-31 Becca clinically d 06-20 11:58:00 (Andrés) significant 08:20: Walker medication 00 [id number] issue Musculoskel requires Musculoske Resolve 2019-06-13 Becca etal human letal d 06-20 13:00:00 (Andrés) assist to 08:20: Walker leave home 00 [id number] Musculoskel transfer Musculoske Resolve 2019-06-13 Becca etal assistance letal d 06-20 13:00:00 [place] required 08:20: [id number] 00 Respiratory oxygen Respirator Resolve 2019-02-05 [place] treatments y d 06-26 10:30:00 Guy-Zos in home 10:28: h [id number] 00 Safety can be left Safety Active Lore[place] alone for 06-26 Guy-Zos only short 10:28: h [id number] periods 00 Elimination urinary Eliminatio Resolve 2017-102018-08-16 [place] frequency n d 30 10:00:00 Guy-Zos 11:58: h [id number] 00 Neuro knowledge/s Neuro/Emot Active 2017-10 [place] kill ion Guy-Zos deficit: cg 11:58: h [id number] 00 Endo/Gage anti-coagul Endo/Gage Resolve 2017-102019-01-29 [place] ation d 1-15 12:45:00 Guy-Zos therapy 10:00: h [id number] 00 Neuro depressive Neuro/Emot Active 2017-10 [place] feelings ion 1-15 Guy-Zos present 10:00: h [id number] 00 Medication oral med Meds Resolve 2017-102019-02-05 [place] assistance d 1-15 10:30:00 [place]os required 10:00: h [id number] 00 Medication injectable Meds Resolve 2017-102019-02-05 [place] med d 1-15 10:30:00 Guy-Zos assistance 10:00: h [id number] required 00 Medication potential Meds Active 2017-10 [place] clinically -15 Guy-Zos significant 10:00: h [id number] medication 00 issue Endo/Gage knowledge/s Endo/Gage Resolve [...] treatment y 12-25 Emily in home 09:30: [id number] 00 Endo/Gage glucose Endo/Gage Resolve 2019-01-29 Cherrise tolerance d - 12:45:00 [place] problem 09:30: [id number] 00 Nutrition knowledge/s Nutrition Resolve 2019-01-29 Cherrise kill d 3- 12:45:00 [place] deficit: pt 09:30: [id number] 00 Elimination urinary Eliminatio Resolve 2019-01-15 Cherrise incontinenc n d 12-25 11:25:00 [place] e 09:30: [id number] 00 Elimination urinary Eliminatio Resolve 2019-01-15 Cherrise urgency n d 12-25 11:25:00 Emily 09:30: [id number] 00 Endo/Gage insulin Endo/Gage Resolve 2019-02-05 Cherrise admn d 01-01 10:30:00 Emily dependence 09:55: [id number] 00 Endo/Gage glucose Endo/Gage Resolve 2019-02-05 Cherrise testing d 01-01 10:30:00 Emily dependence 09:55: [id number] 00 Elimination urinary Eliminatio Resolve 2019-01-15 Cherrise frequency n d 01-01 11:25:00 [place] 09:55: [id number] 00 Elimination recurring Eliminatio Resolve 2019-02-05 Cherrise UTI n d 01-01 10:30:00 [place] 09:55: [id number] 00 Respiratory knowledge/s Respirator Resolve 2019-01-08 Marlene [...] n 0-08 Nila e 09:15: [employer] 00 [id number] Elimination constipatio Eliminatio Active 2018-10 Marlene n n 1-06 Carrier RN 12:10: 00 Cardio hypertensio Cardiovasc Active 2018-10 Marlene n ulfrankie 1-12 Carrier RN 10:55: 00 Medication injectable Meds Active 2018-10 Marlene med 10-13 Carrier RN assistance 10:55: required 00 Musculoskel requires Musculoske Active 2018-10 Marlene etal human letal -12 Carrier RN assist to 10:55: leave home 00 Musculoskel transfer Musculoske Active 2018-10 Marlene etal assistance letal 10-13 Carrier RN required 10:55: 00 Elimination diarrhea Eliminatio Active 2018-10 Tiffani n 10-27 Nila 09:00: [employer] 00 [id number] Safety risk for Safety Active 2018-10 Tiffani hospitaliza 10-27 Nila tion 09:00: [employer] 00 [id number] Safety knowledge/s Safety Active 2018-10 Marlene kill 2- Carrier RN deficit: cg 15:55: 00 Allergies, Adverse Reactions, Alerts Allergy Name Allergy [...] mg-40 mg capsule capsule carvedilol carvedilol 2017- No [place] Unknown Unknown 6.25 mg 6.25 mg 06-20 Abiel UPTON tablet tablet Brandon Vitamin D3 Vitamin D3 No [place] 1999 Unknown 2,000 unit 2,000 unit Sarah UPTON units capsule capsule dilTIAZem dilTIAZem 2017- No [place] Unknown Unknown 120 mg 120 mg 06-20 Abiel U[facility]ON tablet tablet Brandon Depakote Depakote No [place] 1-2 Unknown 500 mg 500 mg Sarah U[facility] tablet,lauryn tablet,lauryn yed release yed release Colace 100 Colace 100 2017- No [place] Unknown Unknown mg capsule mg capsule 06-20 Abiel U[facility]ON furosemide furosemide No [place] 20 mg Unknown 20 mg 20 mg Sarah UPTON tablet tablet gabapentin gabapentin 2017- No [place] Unknown Unknown 300 mg 300 mg 06-20 Abiel U[facility]ON capsule capsule Brandon glimepiride glimepiride No [place] 4 mg Unknown 4 mg tablet 4 mg tablet Sarah U[facility] liraglutide liraglutide No [place] 1 Unknown 0.6 mg/0.1 0.6 mg/0.1 Sarah UPTON injecti mL (18 mg/3 mL (18 mg/3 on mL) mL) subcutaneou subcutaneou s pen s pen injector injector lisinopril lisinopril 2017- No [place] Unknown Unknown 20 mg 20 mg 06-20 Abiel U[facility] tablet tablet Brandon Oyster Oyster No [place] 500 mg Unknown Shell Shell Sarah [facility] Calcium 500 Calcium 500 500 mg 500 mg calcium calcium (1,250 mg) (1,250 mg) tablet tablet multivitami multivitami 2017- No [place] Unknown Unknown n capsule n capsule 06-20 [...] Sarah UPTON capsule capsule oxygen oxygen No [place] Unknown Unknown 06-20 Abiel U[facility] clopidogrel clopidogrel 2017- No [place] Unknown Unknown 75 mg 75 mg 06-20 Abiel U[facility]ON tablet tablet Brandon desvenlafax desvenlafax 2017- No [place] Unknown Unknown ine ine 06-20 Abiel U[facility] succinate succinate Brandon ER 100 mg ER 100 mg tablet,exte tablet,exte nded nded release 24 release 24 hr hr diphenhydrA diphenhydrA 2017- No [place] Unknown Unknown MINE 25 mg MINE 25 mg 06-20 ,Abiel capsule capsule Brandon Depakote ER Depakote ER 2017- No [place] Unknown Unknown 500 mg 500 mg 06-20 ,Abiel tablet,exte tablet,exte Brandon nded nded release release famotidine famotidine 2017- No [place] Unknown Unknown 40 mg 40 mg 06-20 ,Abiel tablet tablet Brandon gabapentin gabapentin 2017- No [place] Unknown Unknown 100 mg 100 mg 06-20 ,Abiel capsule capsule Brandon glimepiride glimepiride 2017- No [place] Unknown Unknown 4 mg tablet 4 mg tablet 06-20 Abiel U[facility] Nystop Nystop No [place] Unknown Unknown 100,000 100,000 06-20 Abiel U[facility] unit/gram unit/gram Brandon topical topical powder powder atorvastati atorvastati 2017- No [place] Unknown Unknown n 80 mg n 80 mg 06-20 ,Abiel tablet tablet Brandon carvedilol carvedilol 2017-10- No [place] Unknown Unknown 6.25 mg 6.25 mg 07-02 ,Abiel tablet tablet Brandon Colace 100 Colace 100 2017-10- No [place] Unknown Unknown mg capsule mg capsule 07-02 Abiel U[facility] diphenhydrA diphenhydrA 2017-10- No [place] Unknown Unknown MINE 25 mg MINE 25 mg 12-14 ,Abiel capsule capsule Brandon Depakote ER Depakote ER 2017-10- No [place] Unknown Unknown 500 mg 500 mg 09-27 ,Abiel tablet,exte tablet,exte Brandon nded nded release release Topamax 50 Topamax 50 2017- No Kandy Unknown Unknown mg tablet mg tablet 06-27 1108 ,Willian Saphris Saphris 2017- No Kandy Unknown Unknown (black (black 06-27 ,Willian golden) Seg[place] golden) 10 mg mg sublingual sublingual tablet tablet pantoprazol pantoprazol 2017- No [place] Unknown Unknown e 40 mg e 40 mg 06-27 Abiel U[facility] tablet,lauryn tablet,lauryn Brandon yed release yed release raNITIdine raNITIdine 2017- No [place] Unknown Unknown 300 mg 300 mg 06-27 Abiel U[facility]ON tablet tablet Brandon Calcium 500 Calcium 500 2017- No [place] Unknown Unknown With D 500 With D 500 06-27 Abiel U[facility] mg (1,250 mg (1,250 Brandon mg)-400 mg)-400 unit tablet unit tablet Vitamin D3 Vitamin D3 2018- No [place] Unknown Unknown 400 unit 400 unit 06-27 Abiel UPTON capsule capsule Brandon Victoza Victoza No [place] Unknown Unknown 2-Jeison 0.6 2-Jeison 0.6 06-27 Abiel U[facility] mg/0.1 mL mg/0.1 mL Brandon (18 mg/3 (18 mg/3 mL) mL) subcutaneou subcutaneou s pen s pen injector injector atorvastati atorvastati 2017-10- No [place] Unknown Unknown n 80 mg n 80 mg 0-30 10-30 Abiel UPTON tablet tablet Brandon Wellbutrin Wellbutrin 2017-10- No Kandy Unknown Unknown XL 150 mg XL [...] release release Topamax 50 Topamax 50 2017-10- No Kaitlynn Unknown Unknown mg tablet mg tablet 10-09 Geraldo UPTON doxycycline doxycycline 2017-10- No [place] Unknown Unknown monohydrate monohydrate 10-15 ,Abiel 100 mg 100 mg Brandon capsule capsule lithium lithium 2017-10- No Kandy Unknown Unknown carbonate carbonate 11-28 ,Willian 300 mg 300 mg tablet tablet Depakote ER Depakote ER 2017-10- No Kandy Unknown Unknown 500 mg 500 mg 11-28 ,Willian tablet,exte tablet,exte nded nded release release sennosides sennosides 2017-10 No [place] Unknown Unknown 8.6 8.6 11-28 Abiel UPTON [...] mg tablet tablet diphenhydrA diphenhydrA 2018- No [place] Unknown Unknown MINE 25 mg MINE 25 mg 12-14 ,Abiel capsule capsule Brandon clindamycin clindamycin 2018- No P[place] Unknown Unknown HCl 300 mg HCl 300 mg 12-25 ,Deb capsule capsule dilTIAZem dilTIAZem No [place] Unknown Unknown 120 mg 120 mg 06-20 Abiel UPTON tablet tablet Brandon gabapentin gabapentin 2018- No [place] Unknown Unknown 300 mg 300 mg 06-20- ,Abiel capsule capsule Brandon lisinopril lisinopril No [place] Unknown Unknown 20 mg 20 mg 06-20 Abiel UPTON tablet tablet Brandon multivitami multivitami No [place] Unknown Unknown n capsule n capsule 06-20 ,Abiel Taylor clopidogrel clopidogrel No [place] Unknown Unknown 75 mg 75 mg 06-20 ,Abiel tablet tablet Brandon gabapentin gabapentin No [place] Unknown Unknown 100 mg 100 mg 06-20 ,Abiel capsule capsule Brandon glimepiride glimepiride No [place] Unknown Unknown 4 mg tablet 4 mg tablet 06-20 Abiel UPTON carvedilol carvedilol 2017- No [place] Unknown Unknown 6.25 mg 6.25 mg 06-20 Abiel UPTON tablet tablet Brandon Saphris Saphris 2017- No Kandy Unknown Unknown (black (black 06-20 ,Willian golden) 10 golden) 10 mg mg sublingual sublingual tablet tablet pantoprazol pantoprazol No [place] Unknown Unknown e 40 mg e 40 mg 06-20 ,Abiel tablet,lauryn tablet,lauryn Brandon yed release yed release raNITIdine raNITIdine No [place] Unknown Unknown 300 mg 300 mg 06-20 Abiel UPTON tablet tablet Brandon Calcium 500 Calcium 500 2017- No [place] Unknown Unknown With D 500 With D 500 06-20 Abiel U[place]ON (1,250 mg (1,250 Brandon mg)-400 mg)-400 unit tablet unit tablet Vitamin D3 Vitamin D3 2018- No [place] Unknown Unknown 1,000 unit 1,000 unit 01-01 Abiel UPTON capsule capsule Brandon atorvastati atorvastati 2017- No [place] Unknown Unknown n 80 mg n 80 mg 107-31 Abiel UPTON tablet tablet Brandon atorvastajudit atorvastati 2017-10 No [place] Unknown Unknown n 80 mg n 80 mg 0 ,Abiel tablet tablet Brandon desvenlafax desvenlafax 2017-10 No Kandy Unknown Unknown ine ER 100 ine ER 100 0-30 MD,Willian mg mg tablet,exte tablet,exte nded nded release 24 release 24 hour hour desvenlafax desvenlafax 2017-10 No [place] Unknown Unknown ine ER 50 ine ER 50 0-30 MD,Willian mg mg tablet,exte tablet,exte nded nded release 24 release 24 hour hour carvedilol carvedilol 2017-10- No [place] Unknown Unknown 6.25 mg 6.25 mg 07-02 ,Abiel tablet tablet Brandon Saphchiquita Saphris 2019- No [place] Unknown Unknown (black (black 06-27-12 ,Willian golden) 10 golden) 10 mg mg sublingual sublingual tablet tablet Calcium 500 Calcium 500 2018- No [place] Unknown Unknown With D 500 With D 500 06-27 ,Abiel garsia (1,250 mg (1,250 Brandon mg)-400 mg)-400 unit tablet unit tablet Topamax 50 Topamax 50 2017-10- No Kaitlynn Unknown Unknown mg tablet mg tablet 10-09 Geraldo UPTON Depakote ER Depakote ER No [place] Unknown Unknown 500 mg 500 mg 10-23 ,Willian tablet,exte tablet,exte nded nded release release diphenhydrA diphenhydrA No [place] Unknown Unknown MINE 25 mg MINE 25 mg 12-14 ,Abiel capsule capsule Brandon lithium lithium 2018- No Kandy Unknown Unknown carbonate carbonate 11-29 ,Willian 300 mg 300 mg tablet tablet Colace 100 Colace 100 2017-10- No [place] Unknown Unknown mg capsule mg capsule 01-01 Abiel U[facility]ON ipratropium ipratropium No [place] Unknown Unknown bromide bromide 02-19 ,Abiel 0.02 % 0.02 % Brandon solution solution for for inhalation inhalation albuterol albuterol No [place] Unknown Unknown sulfate 2.5 sulfate 2.5 02-19 Abiel UPTON mg/3 mL mg/3 mL Brandon (0.083 %) (0.083 %) solution solution for for nebulizatio nebulizatio n n predniSONE predniSONE 2018- No [place] Unknown Unknown 20 mg 20 mg 12-28 Abiel UPTON tablet tablet Brandon benzonatate benzonatate No [place] Unknown Unknown 100 mg 100 mg 12-28 Abiel UPTON capsule capsule Brandon doxycycline doxycycline 2018- No [place] Unknown Unknown hyclate 100 hyclate 100 12-28-04 Abiel UPTON mg capsule mg capsule Brandon [...] Pate Unknown Unknown 2,000 unit 2,000 unit 01-01 MD, tablet tablet Colace 100 Colace 100 No [place] Unknown Unknown mg capsule mg capsule 01-01 MD, calcium calcium No [place] Unknown Unknown 500 mg 500 mg 01-01 MD,Deb LaMICtal LaMICtal 2018- No Kandy Unknown Unknown [...] Unknown Unknown mg tablet mg tablet 02-26 Geraldo UPT[facility] gabapentin gabapentin No [place] Unknown Unknown 600 mg 600 mg 03-05 ,Willian tablet tablet Topamax 50 Topamax 50 2018- No Kaitlynn Unknown Unknown mg tablet mg tablet 02-26 ,Geraldo Topamax 50 Topamax 50 2018- No Kaitlynn Unknown Unknown mg tablet mg tablet 04-09 ,Geraldo Topamax 50 Topamax 50 2018- No Kaitlynn Unknown Unknown mg tablet mg tablet 05-21 ,Geraldo Rexulti 2 Rexulti 2 2018- No Kandy Unknown Unknown mg tablet mg tablet 05-31 ,Willian Dejesus Lantus 2018-10 Yes [place] Unknown Unknown Solostar Solostar 0- MD,Deb U-100 U-100 Insulin 100 Insulin 100 unit/mL (3 unit/mL (3 mL) mL) subcutaneou subcutaneou s pen s pen Topamax 50 Topamax 50 2018-10 Yes Kaitlynn Unknown Unknown mg tablet mg tablet 0-17 Geraldo U[facility] Saphris 5 Saphris 5 2018-10 Yes Kandy Unknown Unknown mg mg 0-17 Willian U[facility] sublingual sublingual tablet tablet Rexulti 2 Rexulti 2 2018- No Kandy Unknown Unknown mg tablet mg tablet 05-31 Willian UPT[place] Invokana Invokana No [place] Unknown Unknown 100 mg 100 mg 02-20 MD,Deb tablet tablet carvedilol carvedilol 2017-10 No [place] Unknown Unknown 6.25 mg 6.25 mg 0 MDAbiel tablet tablet Brandon Latuda 20 Latuda 20 [...] 2019-06-13 18:07:48 72 mm[Hg] mm[Hg] Method: Stand RESP RATE 2019-09-09 18:09:16 16 /min /min Procedures This patient has no known procedures. Results This patient has no known results.
--- OUTSIDE RECORDS SUMMARY | 2019-09-11 10:05 | XMS REPORT ---
:1960 Author Organization [facility] Care Team Providers Name Role Phone Unavailable Unavailable Unavailable Problems Condition Condition Condition Status Onset Resolution Last Treating Comments Name Details Category Date Date Treatment Clinician Date Pain frequent Pain Mgmt Resolve 2019-02-05 Becca pain d 06-20 10:30:00 (Andrés) 08:20: Walker 00 [id number] Cardio edema Cardiovasc Resolve 2018-08-16 Becca ular d 06-20 10:00:00 (Andrés) 08:20: Walker 00 [id number] Respiratory dyspnea Respirator Resolve 2019-02-05 Becca present y d 06-20 10:30:00 (Andrés) 08:20: Walker 00 [id number] Respiratory lung sounds Respirator Resolve 2019-02-05 Becca deficit y d 06-20 10:30:00 (Andrés) 08:20: Walker 00 [id number] Endo/Gage anti-coagul Endo/Gage Resolve 2018-07-31 Becca ation d 06-20 11:58:00 (Andrés) therapy 08:20: Walker 00 [id number] Integument skin Integument Active Becca integrity 06-20 (Andrés) risk 08:20: Walker [id number] Elimination urinary Eliminatio Resolve 2018-08-16 Becca incontinenc n d 06-20 10:00:00 (Andrés) e 08:20: Walker 00 [id number] Neuro confusion Neuro/Emot Active Becca present ion 06-20 (Andrés) 08:20: Walker 00 [id number] Neuro anxiety Neuro/Emot Active Becca present ion 06-20 (Andrés) 08:20: Walker 00 [id number] Neuro impaired Neuro/Emot Active Becca decision-ma ion 06-20 (Andrés) caty 08:20: Walker [id number] Activity ADL Activity Active Becca assistance 06-20 (Andrés) required 08:20: Walker 00 [id number] Safety cannot be Safety Active Becca left alone 06-20 (Andrés) 08:20: Walker 00 [id number] Safety fall risk Safety Resolve 2019-08-13 Becca factor d 06-20 10:55:00 (Andrés) present 08:20: Walker [id number] Safety risk for Safety Resolve 2019-08-13 Becca hospitaliza d 06-20 10:55:00 (Andrés) tion 08:20: Walker [id number] Medication oral med Meds Resolve 2018-07-31 Becca assistance d 06-20 11:58:00 (Andrés) required 08:20: Walker 00 [id number] Medication potential Meds Resolve 2018-07-31 Becca clinically d 06-20 11:58:00 (Andrés) significant 08:20: Walker medication 00 [id number] issue Musculoskel requires Musculoske Resolve 2019-06-13 Becca etal human letal d 06-20 13:00:00 (Andrés) assist to 08:20: Walker leave home 00 [id number] Musculoskel transfer Musculoske Resolve 2019-06-13 Becca etal assistance letal d 06-20 13:00:00 Guidelli required 08:20: [id number] 00 Respiratory oxygen Respirator Resolve 2019-02-05 Loreta treatments y d 06-26 10:30:00 Guy-Zos in home 10:28: h [id number] 00 Safety can be left Safety Active Loreta alone for 06-26 [place] only short 10:28: h [id number] periods 00 Elimination urinary Eliminatio Resolve 2017-102018-08-16 Loreta frequency n d 30 10:00:00 Guy-Zos 11:58: h [id number] 00 Neuro knowledge/s Neuro/Emot Active 2017-10 Loreta kill ion Guy-Zos deficit: cg 11:58: h [id number] 00 Endo/Gage anti-coagul Endo/Gage Resolve 2017-102019-01-29 Loreta ation d 1-15 12:45:00 Guy-Zos therapy 10:00: h [id number] 00 Neuro depressive Neuro/Emot Active 2017-10 Loreta feelings ion 1-15 [place] present 10:00: h [id number] 00 Medication oral med Meds Resolve 2017-102019-02-05 Loreta assistance d 1-15 10:30:00 [place] required 10:00: h [id number] 00 Medication injectable Meds Resolve 2017-102019-02-05 Loreta med d 1-15 10:30:00 Guy-Zos assistance 10:00: h [id number] required 00 Medication potential Meds Active 2017-10 Loreta clinically -15 [place] significant 10:00: h [id number] medication 00 issue Endo/Gage knowledge/s Endo/Gage Resolve [...] treatment y 12-25 Emily in home 09:30: [id number] 00 Endo/Gage glucose Endo/Gage Resolve 2019-01-29 Cherrise tolerance d - 12:45:00 Emily problem 09:30: [id number] 00 Nutrition knowledge/s Nutrition Resolve 2019-01-29 Cherrise kill d 3- 12:45:00 [place] deficit: pt 09:30: [id number] 00 Elimination urinary Eliminatio Resolve 2019-01-15 Cherrise incontinenc n d 12-25 11:25:00 Emily e 09:30: [id number] 00 Elimination urinary Eliminatio Resolve 2019-01-15 Cherrise urgency n d 12-25 11:25:00 Emily 09:30: [id number] 00 Endo/Gage insulin Endo/Gage Resolve 2019-02-05 Cherrise admn d 01-01 10:30:00 [place] dependence 09:55: [id number] 00 Endo/Gage glucose Endo/Gage Resolve 2019-02-05 Cherrise testing d 01-01 10:30:00 Emily dependence 09:55: [id number] 00 Elimination urinary Eliminatio Resolve 2019-01-15 Cherrise frequency n d 01-01 11:25:00 [place] 09:55: [id number] 00 Elimination recurring Eliminatio Resolve 2019-02-05 Cherrise UTI n d 01-01 10:30:00 Emily 09:55: [id number] 00 Respiratory knowledge/s Respirator Resolve 2019-01-08 Marlene [...] n 0-08 Nila e 09:15: [employer] 00 [id number] Elimination constipatio Eliminatio Active 2018-10 Marlene n [...] Tiffani n 10-27 Nila 09:00: [employer] 00 [id number] Safety risk for Safety Active 2018-10 Tiffani hospitaliza 10-27 Nila tion 09:00: [employer] 00 [id number] Allergies, Adverse Reactions, Alerts Allergy Name Allergy [...] mg-40 mg capsule capsule carvedilol carvedilol 2017- Porter Unknown Unknown 6.25 mg 6.25 mg 06-20 Abiel UPTON tablet tablet Brandon Vitamin D3 Vitamin D3 No Crowe 1999 Unknown 2,000 unit 2,000 unit Sarah UPTON units capsule capsule dilTIAZem dilTIAZem 2017- No Porter Unknown Unknown 120 mg 120 mg 06-20 Abiel UPTON tablet tablet Brandon Depakote Depakote No Crowe 1-2 Unknown 500 mg 500 mg Sarah U[facility]ON tablet,lauryn tablet,lauryn yed release yed release Colace 100 Colace 100 2017- No Porter Unknown Unknown mg capsule mg capsule 06-20 Abiel U[facility] furosemide furosemide No Crowe 20 mg Unknown 20 mg 20 mg Sarah UPTON tablet tablet gabapentin gabapentin 2017- No Porter Unknown Unknown 300 mg 300 mg 06-20 Abiel UPTON capsule capsule Brandon glimepiride glimepiride No Crowe 4 mg Unknown 4 mg tablet 4 mg tablet Sarah UPTON liraglutide liraglutide No Crowe 1 Unknown 0.6 mg/0.1 0.6 mg/0.1 Sarah UPTON injecti mL (18 mg/3 mL (18 mg/3 on mL) mL) subcutaneou subcutaneou s pen s pen injector injector lisinopril lisinopril 2017- No Porter Unknown Unknown 20 mg 20 mg 06-20 Abiel UPTON tablet tablet Brandon Oyster Oyster No Crowe 500 mg Unknown Shell Shell Sarah U[facility] Calcium 500 Calcium 500 500 mg 500 mg calcium calcium (1,250 mg) (1,250 mg) tablet tablet multivitami multivitami 2017- No Porter Unknown Unknown n capsule n capsule 06-20 [...] Sarah UPTON capsule capsule oxygen oxygen No Porter Unknown Unknown 06-20 Abiel U[facility] clopidogrel clopidogrel 2017- No Porter Unknown Unknown 75 mg 75 mg 06-20 Abiel UPTON tablet tablet Brandon desvenlafax desvenlafax 2017- No Porter Unknown Unknown ine ine 06-20 1030 Abiel UPTON succinate succinate Brandon ER 100 mg ER 100 mg tablet,exte tablet,exte nded nded release 24 release 24 hr hr diphenhydrA diphenhydrA 2017- No Porter Unknown Unknown MINE 25 mg MINE 25 mg 06-20 ,Abiel capsule capsule Brandon Depakote ER Depakote ER 2017- No Porter Unknown Unknown 500 mg 500 mg 06-20 ,Abiel tablet,exte tablet,exte Brandon nded nded release release famotidine famotidine 2017- No Porter Unknown Unknown 40 mg 40 mg 06-20 ,Abiel tablet tablet Brandon gabapentin gabapentin 2017- No Porter Unknown Unknown 100 mg 100 mg 06-20 ,Abiel capsule capsule Brandon glimepiride glimepiride 2017- No Porter Unknown Unknown 4 mg tablet 4 mg tablet 06-20 ,Abiel Taylor Nystop Nystop No Porter Unknown Unknown 100,000 100,000 06-20 Abiel UPTON unit/gram unit/gram Brandon topical topical powder powder atorvastati atorvastati 2017- No Porter Unknown Unknown n 80 mg n 80 mg 06-20 Abiel UPTON tablet tablet Brandon carvedilol carvedilol 2017-10- No Porter Unknown Unknown 6.25 mg 6.25 mg 07-02 ,Abiel tablet tablet Brandon Colace 100 Colace 100 2017-10- No Porter Unknown Unknown mg capsule mg capsule 07-02 Abiel U[facility] diphenhydrA diphenhydrA 2017-10- No Porter Unknown Unknown MINE 25 mg MINE 25 mg 15 ,Abiel capsule capsule Brandon Depakote ER Depakote ER 2017-10- No Porter Unknown Unknown 500 mg 500 mg 09-27 ,Abiel tablet,exte tablet,kelly Taylor nded nded release release Topamax 50 Topamax 50 2017- No Kandy Unknown Unknown mg tablet mg tablet 06-27 ,Willian Saphris Saphris 2017- No Kandy Unknown Unknown (black (black 06-27 ,Willian golden) 10 chico) 10 mg mg sublingual sublingual tablet tablet pantoprazol pantoprazol 2017- No Porter Unknown Unknown e 40 mg e 40 mg 06-27 ,Abiel tablet,lauryn tablet,lauryn Brandon yed release yed release raNITIdine raNITIdine 2017- Porter Unknown Unknown 300 mg 300 mg 06-27 Abiel U[facility] tablet tablet Brandon Calcium 500 Calcium 500 2017- Porter Unknown Unknown With D 500 With D 500 06-27 Abiel UPT[facility] (1,250 mg (1,250 Brandon mg)-400 mg)-400 unit tablet unit tablet Vitamin D3 Vitamin D3 2018- No Porter Unknown Unknown 400 unit 400 unit 06-27 Abiel UPTON capsule capsule Brandon Victoza Victoza No Porter Unknown Unknown 2-Jeison 0.6 2-Jeison 0.6 06-27 Abiel UPTON mg/0.1 mL mg/0.1 mL Brandon (18 mg/3 (18 mg/3 mL) mL) subcutaneou subcutaneou s pen s pen injector injector atorvastati atorvastati 2017-10- No Porter Unknown Unknown n 80 mg n 80 [...] HCl XL 300 HCl XL 300 10-08 ,Wlilian mg 24 hr mg 24 hr tablet, tablet, extended extended release release Topamax 50 Topamax 50 2017-10- Kaitlynn Unknown Unknown mg tablet mg tablet 10-09 Geraldo UPTON doxycycline doxycycline 2017-10- No Porter Unknown Unknown monohydrate monohydrate 10-15 Abiel UPTON 100 mg 100 mg Brandon capsule capsule lithium lithium 2017-10- No Kandy Unknown Unknown carbonate carbonate 11-28 ,Willian 300 mg 300 mg tablet tablet Depakote ER Depakote ER 2017-10- No Kandy Unknown Unknown 500 mg 500 mg 11-28 ,Willian tablet,exte tablet,exte nded nded release release sennosides sennosides 2017-10 No Porter Unknown Unknown 8.6 8.6 11-28 Abiel UPTON [...] mg tablet tablet diphenhydrA diphenhydrA 2018- No Porter Unknown Unknown MINE 25 mg MINE 25 mg 12-14 ,Abiel capsule capsule Brandon clindamycin clindamycin 2018- No Pate Unknown Unknown HCl 300 mg HCl 300 mg 12-25 ,Deb capsule capsule dilTIAZem dilTIAZem No Porter Unknown Unknown 120 mg 120 mg 06-20 ,Abiel tablet tablet Brandon gabapentin gabapentin 2018- No Porter Unknown Unknown 300 mg 300 mg 06-20 ,Abiel capsule capsule Brandon lisinopril lisinopril No Porter Unknown Unknown 20 mg 20 mg 06-20 Abiel UPTON tablet tablet Brandon multivitami multivitami No Porter Unknown Unknown n capsule n capsule 06-20 Abiel U[facility]ON clopidogrel clopidogrel No Porter Unknown Unknown 75 mg 75 mg 06-20 ,Abiel tablet tablet Brandon gabapentin gabapentin No Porter Unknown Unknown 100 mg 100 mg 06-20 ,Abiel capsule capsule Brandon glimepiride glimepiride No Porter Unknown Unknown 4 mg tablet 4 mg tablet 06-20 Abiel U[facility] carvedilol carvedilol 2018-0 2018- No Porter Unknown Unknown 6.25 mg 6.25 mg 06-20 ,Abiel tablet tablet Brandon Saphris Saphris 2017- No Kandy Unknown Unknown (black (black 06-20 ,Willian golden) 10 golden) 10 mg mg sublingual sublingual tablet tablet pantoprazol pantoprazol No Porter Unknown Unknown e 40 mg e 40 mg 06-20 ,Abiel tablet,lauryn tablet,lauryn Brandon yed release yed release raNITIdine raNITIdine No Porter Unknown Unknown 300 mg 300 mg 06-20 ,Abiel tablet tablet Brandon Calcium 500 Calcium 500 2017- No Porter Unknown Unknown With D 500 With D 500 06-20 Abiel U[facility]ON mg (1,250 mg (1,250 Brandon mg)-400 mg)-400 unit tablet unit tablet Vitamin D3 Vitamin D3 2018- No Porter Unknown Unknown 1,000 unit 1,000 unit 01-01 Abiel UPTON capsule capsule Brandon atorvastati atorvastati 2017- No Porter Unknown Unknown n 80 mg n 80 mg 1 10- ,bAiel tablet tablet Brandon atorvastajudit atorvastati 2017-10 No Porter Unknown Unknown n 80 mg n 80 [...] 24 hour hour carvedilol carvedilol 2017-10- No Porter Unknown Unknown 6.25 mg 6.25 mg 07-02 ,Abiel tablet tablet Brandon Saphris Saphris 2018- No Kandy Unknown Unknown (black (black 06-27 ,Willian golden) 10 golden) 10 mg mg sublingual sublingual tablet tablet Calcium 500 Calcium 500 2018- No Porter Unknown Unknown With D 500 With D 500 06-27 Abiel UPTON mg (1,250 mg (1,250 Brandon mg)-400 mg)-400 unit tablet unit tablet Topamax 50 Topamax 50 2017-10- No Kaitlynn Unknown Unknown mg tablet mg tablet 10-09 Geraldo UPTON Depakote ER Depakote ER No Kandy Unknown Unknown 500 mg 500 mg 10-23 Willian UPTON tablet,exte tablet,exte nded nded release release diphenhydrA diphenhydrA No Porter Unknown Unknown MINE 25 mg MINE 25 mg 12-14 ,Abiel capsule capsule Brandon lithium lithium 2018- No Kandy Unknown Unknown carbonate carbonate 11-29 Willian U[facility] 300 mg 300 mg tablet tablet Colace 100 Colace 100 2017-10- No Porter Unknown Unknown mg capsule mg capsule 01-01 Abiel [facility] ipratropium ipratropium No Porter Unknown Unknown bromide bromide 02-19 Abiel UPT[facility] 0.02 % 0.02 % Brandon solution solution for for inhalation inhalation albuterol albuterol No Porter Unknown Unknown sulfate 2.5 sulfate 2.5 02-19 Abiel U[facility] mg/3 mL mg/3 mL Brandon (0.083 %) (0.083 %) solution solution for for nebulizatio nebulizatio n n predniSONE predniSONE 2018- No Porter Unknown Unknown 20 mg 20 mg 12-28 Abiel U[facility] tablet tablet Brandon benzonatate benzonatate No Porter Unknown Unknown 100 mg 100 mg 12-28 Abiel U[facility] capsule capsule Brandon doxycycline doxycycline 2018- No Porter Unknown Unknown hyclate 100 hyclate 100 12-28- [...] ,Deb tablet tablet carvedilol carvedilol 2017-10 No Porter Unknown Unknown 6.25 mg 6.25 mg ,Abiel tablet tablet Brandon Latuda 20 Latuda 20 2018-10- Yes Kandy Unknown Unknown mg tablet mg tablet 10-02 Willian [facility] Latuda 40 Latuda 40 2018-10- Yes Kanyd Unknown Unknown mg tablet mg tablet 10-09 [...]
[2019-09-11 10:06] LABS: Magnesium 1.8 mg/dL (1.9-2.7)
[2019-09-11 10:06] LABS: INR 1.1 (0.82-1.09)
--- OUTSIDE RECORDS SUMMARY | 2019-09-11 10:06 | XMS REPORT ---
:1960 Author Organization [facility] Care Team Providers Name Role Phone Unavailable Unavailable Unavailable Problems Condition Condition Condition Status Onset Resolution Last Treating Comments Name Details Category Date Date Treatment Clinician Date Pain frequent Pain Mgmt Resolve 2019-02-05 Becca pain d 06-20 10:30:00 (Andrés) 08:20: Walker 00 [id number] Cardio edema Cardiovasc Resolve 2018-08-16 Becca ular d 06-20 10:00:00 (Andrés) 08:20: Walker 00 [id number] Respiratory dyspnea Respirator Resolve 2019-02-05 Becca present y d 06-20 10:30:00 (Andrés) 08:20: Walker 00 [id number] Respiratory lung sounds Respirator Resolve 2019-02-05 Becca deficit y d 06-20 10:30:00 (Andrés) 08:20: Walker 00 [id number] Endo/Gage anti-coagul Endo/Gage Resolve 2018-07-31 Becca ation d 06-20 11:58:00 (Andrés) therapy 08:20: Walker 00 [id number] Integument skin Integument Active Becca integrity 06-20 (Andrés) risk 08:20: Walker [id number] Elimination urinary Eliminatio Resolve 2018-08-16 Becca incontinenc n d 06-20 10:00:00 (Andrés) e 08:20: Walker 00 [id number] Neuro confusion Neuro/Emot Active Becca present ion 06-20 (Andrés) 08:20: Walker 00 [id number] Neuro anxiety Neuro/Emot Active Becca present ion 06-20 (Andrés) 08:20: Walker 00 [id number] Neuro impaired Neuro/Emot Active Becca decision-ma ion 06-20 (Andrés) caty 08:20: Walker [id number] Activity ADL Activity Active Becca assistance 06-20 (Andrés) required 08:20: Walker 00 [id number] Safety cannot be Safety Active Becca left alone 06-20 (Andrés) 08:20: Walker 00 [id number] Safety fall risk Safety Resolve 2019-08-13 Becca factor d 06-20 10:55:00 (Andrés) present 08:20: Walker [id number] Safety risk for Safety Resolve 2019-08-13 Becca hospitaliza d 06-20 10:55:00 (Andrés) tion 08:20: Walker [id number] Medication oral med Meds Resolve 2018-07-31 Becca assistance d 06-20 11:58:00 (Andrés) required 08:20: Walker 00 [id number] Medication potential Meds Resolve 2018-07-31 Becca clinically d 06-20 11:58:00 (Andrsé) significant 08:20: Walker medication 00 [id number] issue Musculoskel requires Musculoske Resolve 2019-06-13 Becca etal human letal d 06-20 13:00:00 (Andrés) assist to 08:20: Walker leave home 00 [id number] Musculoskel transfer Musculoske Resolve 2019-06-13 Becca etal assistance letal d 06-20 13:00:00 Guidelli required 08:20: [id number] Respiratory oxygen Respirator Resolve 2019-02-05 Loreta treatments y d 06-26 10:30:00 Guy-Zos in home 10:28: h [id number] Safety can be left Safety Active Loreta alone for 06-26 Guy-Zos only short 10:28: h [id number] periods 00 Elimination urinary Eliminatio Resolve 2017-102018-08-16 Loreta frequency n d 30 10:00:00 Guy-Zos 11:58: h [id number] 00 Neuro knowledge/s Neuro/Emot Active 2017-10 Loreta kill ion Guy-Zos deficit: cg 11:58: h [id number] 00 Endo/Gage anti-coagul Endo/Gage Resolve 2017-102019-01-29 Loreta ation d 1-15 12:45:00 Guy-Zos therapy 10:00: h [id number] 00 Neuro depressive Neuro/Emot Active 2017-10 Loreta feelings ion 1-15 Guy-Zos present 10:00: h [id number] 00 Medication oral med Meds Resolve 2017-102019-02-05 Loreta assistance d 1-15 10:30:00 [place]-Zos required 10:00: h [id number] 00 Medication injectable Meds Resolve 2017-102019-02-05 Loreta med d 1-15 10:30:00 Guy-Zos assistance 10:00: h [id number] required 00 Medication potential Meds Active 2017-10 Loreta clinically -15 Guy-Zos significant 10:00: h [id number] medication 00 issue Endo/Gage knowledge/s Endo/Gage Resolve [...] treatment y 12-25 Emily in home 09:30: [id number] 00 Endo/Gage glucose Endo/Gage Resolve 2019-01-29 Cherrise tolerance d - 12:45:00 Mcgrew problem 09:30: [id number] Nutrition knowledge/s Nutrition Resolve 2019-01-29 Cherrise kill d 3- 12:45:00 Mcgrew deficit: pt 09:30: [id number] 00 Elimination urinary Eliminatio Resolve 2019-01-15 Cherrise incontinenc n d 12-25 11:25:00 Mcgrew e 09:30: [id number] 00 Elimination urinary Eliminatio Resolve 2019-01-15 Cherrise urgency n d 12-25 11:25:00 Emily 09:30: [id number] Endo/Gage insulin Endo/Gage Resolve 2019-02-05 Cherrise admn d 01-01 10:30:00 Emily dependence 09:55: [id number] 00 Endo/Gage glucose Endo/Gage Resolve 2019-02-05 Cherrise testing d 01-01 10:30:00 Emily dependence 09:55: [id number] 00 Elimination urinary Eliminatio Resolve 2019-01-15 Cherrise frequency n d 01-01 11:25:00 Mcgrew 09:55: [id number] 00 Elimination recurring Eliminatio Resolve 2019-02-05 Cherrise UTI n d 01-01 10:30:00 Mcgrew 09:55: [id number] 00 Respiratory knowledge/s Respirator Resolve 2019-01-08 Marlene [...] lung sounds Respirator Active Terra deficit y 9- [place] 11:00: RN 00 Endo/Gage anti-coagul Endo/Gage Resolve 2019-08-07 Terra ation d 9- 12:10:00 [place] therapy 11:00: RN 00 Pain frequent Pain Mgmt Active Terra pain 9- [place] 13:00: RN 00 Nutrition changing Nutrition Active Terra weight/appe 06-13 [place] tite 13:00: RN 00 Elimination urinary Eliminatio Active 2018-10 Tiffani incontinenc n 0-08 Nila e 09:15: [employer] 00 [id number] Elimination constipatio Eliminatio Active 2018-10 Marlene n n 1-06 Carrier RN 12:10: 00 Cardio hypertensio Cardiovasc Active 2018-10 Marlene n ular 1-12 Carrier RN 10:55: 00 Medication injectable Meds Active 2018-10 Marlene med 12 Carrier RN assistance 10:55: required 00 Musculoskel requires Musculoske Active 2018-10 Marlene etal human letal -12 Carrier RN assist to 10:55: leave home 00 Musculoskel transfer Musculoske Active 2018-10 Marlene etal assistance letal 12 Carrier RN required 10:55: 00 Allergies, Adverse Reactions, Alerts Allergy Name Allergy Status Severity Reaction(s) Onset Inactive Treating Comments Type Date Date Clinician morphine Base Active Unknown Reaction Barb Beam Ingredient Unknown 918 clavulanic Base Active Unknown Reaction Barb Beam acid Ingredient Unknown 918 nitrofuranto Base Active Unknown Reaction Barb Beam in Ingredient Unknown 06-19 meperidine Base Active Unknown Reaction Barb Beam Ingredient Unknown 9-18 Medications Ordered Filled Start Stop Current Ordering Indication Dosage Frequency Signature Comments Components Medication Medication Date Date Medication? Clinician (SIG) Name Name acetaminoph acetaminoph No Crowe 1 Unknown en 325 mg en 325 mg ,Sarah tablet capsule capsule Proventil Proventil No Crowe 2 puffs Unknown HFA 90 HFA 90 ,Sarah mcg/actuati mcg/actuati on aerosol on aerosol inhaler [...] Unknown deine #3 30 deine #3 30 ,Sarah mg-50 mg-50 mg-325 mg-325 mg-40 mg mg-40 mg capsule capsule carvedilol carvedilol 2017- No [place] Unknown Unknown 6.25 mg 6.25 mg 06-20 Abiel UPTON tablet tablet Brandon Vitamin D3 Vitamin D3 No Crowe 2000 Unknown 2,000 unit 2,000 unit Saarh UPT[facility] units capsule capsule dilTIAZem dilTIAZem 2017- No [place] Unknown Unknown 120 mg 120 mg 06-20 Abiel U[facility] tablet tablet Brandon Depakote Depakote No Crowe 1-2 Unknown 500 mg 500 mg Sarah U[facility] tablet,lauryn tablet,lauryn yed release yed release Colace 100 Colace 100 2017- No [place] Unknown Unknown mg capsule mg capsule 06-20 Abiel U[facility] furosemide furosemide No Crowe 20 mg Unknown 20 mg 20 mg Sarah U[facility]ON tablet tablet gabapentin gabapentin 2017- No [place] Unknown Unknown 300 mg 300 mg 06-20 Abiel [facility] capsule Brandon glimepiride glimepiride No Crowe 4 mg Unknown 4 mg tablet 4 mg tablet Sarah [facility] liraglutide liraglutide No Crowe 1 Unknown 0.6 mg/0.1 0.6 mg/0.1 Sarah UPTON injecti mL (18 mg/3 mL (18 mg/3 on mL) mL) subcutaneou subcutaneou s pen s pen injector injector lisinopril lisinopril 2017- No [place] Unknown Unknown 20 mg 20 mg 06-20 Abiel [facility] tablet tablet Brandon Oyster Oyster No Crowe 500 mg Unknown Shell Shell Sarah [facility] Calcium 500 Calcium 500 500 mg 500 mg calcium calcium (1,250 mg) (1,250 mg) tablet tablet multivitami multivitami 2017- No [place] Unknown Unknown n capsule n capsule 06-20 [...] Sarah U[facility] capsule capsule oxygen oxygen No [place] Unknown Unknown 06-20 Abiel [facility] clopidogrel clopidogrel 2017- No [place] Unknown Unknown 75 mg 75 mg 06-20 Abiel [facility] tablet tablet Brandon desvenlafax desvenlafax 2017- No [place] Unknown Unknown ine ine 06-20 Abiel [facility] succinate succinate Brandon ER 100 mg ER 100 mg tablet,exte tablet,exte nded nded release 24 release 24 hr hr diphenhydrA diphenhydrA 2017- No [place] Unknown Unknown MINE 25 mg MINE 25 mg 06-20 Abiel [facility] capsule capsule Brandon Depakote ER Depakote ER 2017- No [place] Unknown Unknown 500 mg 500 mg 06-20 Abiel [facility] tablet,exte tablet,exte Brandon nded nded release release famotidine famotidine 2017- No [place] Unknown Unknown 40 mg 40 mg 06-20 ,Abiel tablet tablet Brandon gabapentin gabapentin 2017- No [place] Unknown Unknown 100 mg 100 mg 06-20 ,Abiel capsule capsule Brandon glimepiride glimepiride 2017- No [place] Unknown Unknown 4 mg tablet 4 mg tablet 06-20 Abiel [facility] Nystop Nystop No [place] Unknown Unknown 100,000 100,000 06-20 Abiel U[place] unit/gram unit/gram Brandon topical topical powder powder atorvastati atorvastati 2017- No [place] Unknown Unknown n 80 mg n 80 mg 06-20 ,Abiel tablet tablet Brandon carvedilol carvedilol 2017-10- No [place] Unknown Unknown 6.25 mg 6.25 mg 07-02 ,Abiel tablet tablet Brandon Colace 100 Colace 100 2017-10- No [place] Unknown Unknown mg capsule mg capsule 07-02 Abiel U[facility] diphenhydrA diphenhydrA 2017-10- No [place] Unknown Unknown MINE 25 mg MINE 25 mg 12-14 ,Abiel capsule capsule Brandon Depakote ER Depakote ER 2017-10- No [place] Unknown Unknown 500 mg 500 mg 09-27 ,Abiel bahena,exte tablet,kelly Brandon nded nded release release Topamax 50 Topamax 50 2017- No Kandy Unknown Unknown mg tablet mg tablet 06-27 ,Willian Saphris Saphris 2018- No Kandy Unknown Unknown (black (black 06-27 ,Willian golden) 10 [place]) 10 mg mg sublingual sublingual tablet tablet pantoprazol pantoprazol 2017- No [place] Unknown Unknown e 40 mg e 40 mg 06-27 ,Abiel tablet,lauryn tablet,lauryn Brandon yed release yed release raNITIdine raNITIdine 2017- No [place] Unknown Unknown 300 mg 300 mg 06-27 ,Abiel tablet tablet Brandon Calcium 500 Calcium 500 2017- No [place] Unknown Unknown With D 500 With D 500 06-27 Abiel U[facility] mg (1,250 mg (1,250 Brandon mg)-400 mg)-400 unit tablet unit tablet Vitamin D3 Vitamin D3 2018- No [place] Unknown Unknown 400 unit 400 unit 06-27 Abiel U[facility] capsule capsule Brandon Halltoza No [place] Unknown Unknown 2-Jeison 0.6 2-Jeison 0.6 06-27 Abiel [facility] mg/0.1 mL mg/0.1 mL Brandon (18 mg/3 (18 mg/3 mL) mL) subcutaneou subcutaneou s pen s pen injector injector atorvastati atorvastati 2017-10- No [place] Unknown Unknown n 80 mg n 80 mg 0- Abiel UPTON tablet tablet Brandon Wellbutrin Wellbutrin 2017-10- No Kandy Unknown Unknown XL 150 mg XL 150 mg 08-08 ,Willian 24 hr 24 hr tablet, tablet, extended extended release release desvenlafax desvenlafax 2017-10- No Kandy Unknown Unknown ine ER 100 ine ER 100 0-30 10-30 MD,Willian mg mg tablet,exte tablet,exte nded nded release 24 release 24 hour hour desvenlafax desvenlafax 2017-10- No Kanyd Unknown Unknown ine ER 50 ine ER [...] Unknown Unknown mg tablet mg tablet 10-09 ,Geraldo doxycycline doxycycline 2017-10- No [place] Unknown Unknown monohydrate monohydrate 10-15 Abiel UPTON 100 mg 100 mg Brandon capsule capsule lithium lithium 2017-10- No Kandy Unknown Unknown carbonate carbonate 11-28 ,Willian 300 mg 300 mg tablet tablet Depakote ER Depakote ER 2017-10- No Kandy Unknown Unknown 500 mg 500 mg 11-28 ,Willian tablet,exte tablet,exte nded nded release release sennosides sennosides 2017-10 No [place] Unknown Unknown 8.6 8.6 2- ,Abiel mg-docusate mg-docusate Brandon sodium 50 sodium 50 mg tablet mg tablet lithium lithium 2018- No Kandy Unknown Unknown carbonate carbonate 10-23 MD,Willian 300 mg 300 mg tablet tablet Depakote ER Depakote ER 2018- No Kandy Unknown Unknown 500 mg 500 mg 10-23 MD,Willian tablet,exte tablet,exte nded nded release release lithium lithium 2018- No Kandy Unknown Unknown carbonate carbonate 11-29 MD,Willian 300 mg 300 mg tablet tablet diphenhydrA diphenhydrA 2018- No [place] Unknown Unknown MINE 25 mg MINE 25 mg 12-14 ,Abiel capsule capsule Brandon clindamycin clindamycin 2018- No Pate Unknown Unknown HCl 300 mg HCl 300 mg 12-25 ,Deb capsule capsule dilTIAZem dilTIAZem No [place] Unknown Unknown 120 mg 120 mg 06-20 ,Abiel tablet tablet Brandon gabapentin gabapentin 2018- No [place] Unknown Unknown 300 mg 300 mg 06-20 ,Abiel capsule capsule Brandon lisinopril lisinopril No [place] Unknown Unknown 20 mg 20 mg 06-20 ,Abiel tablet tablet Brandon multivitami multivitami No [place] Unknown Unknown n capsule n capsule 06-20 ,Abiel Taylor clopidogrel clopidogrel No [place] Unknown Unknown 75 mg 75 mg 06-20 ,Abiel tablet tablet Brandon gabapentin gabapentin No [place] Unknown Unknown 100 mg 100 mg 06-20 ,Abiel capsule capsule Brandon glimepiride glimepiride No [place] Unknown Unknown 4 mg tablet 4 mg tablet 06-20 ,Abiel Taylor carvedilol carvedilol 2017- No [place] Unknown Unknown 6.25 mg 6.25 mg 06-20 ,Abiel tablet tablet Brandon Saphris Saphris 2017- No Kandy Unknown Unknown (black (black 06-20 ,Willian golden) 10 golden) 10 mg mg sublingual sublingual tablet tablet pantoprazol pantoprazol No [place] Unknown Unknown e 40 mg e 40 mg 06-20 ,Abiel tablet,lauryn tablet,lauryn Brandon yed release yed release raNITIdine raNITIdine No [place] Unknown Unknown 300 mg 300 mg 06-20 ,Abiel tablet tablet Brandon Calcium 500 Calcium 500 2017- No [place] Unknown Unknown With D 500 With D 500 06-20 ,Abiel mg (1,250 mg (1,250 Brandon mg)-400 mg)-400 unit tablet unit tablet Vitamin D3 Vitamin D3 2018- No [place] Unknown Unknown 1,000 unit 1,000 unit 01-01 ,Abiel capsule capsule Brandon atorvastati atorvastati 2017- No [place] Unknown Unknown n 80 mg n 80 mg 107-31 ,Abiel tablet tablet Brandon atorvastajudit atorvastati 2017-10 No [place] Unknown Unknown n 80 mg n 80 mg 0 MD,Abiel tablet tablet Brandon desvenlafax desvenlafax 2017-10 No Kandy Unknown Unknown ine ER 100 ine ER 100 0-30 MD,Willian mg mg tablet,exte tablet,exte nded nded release 24 release 24 hour hour desvenlafax desvenlafax 2017-10 No Kandy Unknown Unknown ine ER 50 ine ER 50 0-30 MD,Willian mg mg tablet,exte tablet,exte nded nded release 24 release 24 hour hour carvedilol carvedilol 2017-10- No [place] Unknown Unknown 6.25 mg 6.25 mg 07-02 ,Abiel tablet tablet Brandon Saphris Saphris 2018- No Kandy Unknown Unknown (black (black 06-27 09-12 ,Willian golden) 10 golden) 10 mg mg sublingual sublingual tablet tablet Calcium 500 Calcium 500 2018- No [place] Unknown Unknown With D 500 With D 500 06-27 ,Abiel mg (1,250 mg (1,250 Brandon mg)-400 mg)-400 unit tablet unit tablet Topamax 50 Topamax 50 2017-10- No Kaitlynn Unknown Unknown mg tablet mg tablet 10-09 ,Geraldo Depakote ER Depakote ER No Kandy Unknown Unknown 500 mg 500 mg 10-23 Willian UPTON tablet,exte tablet,exte nded nded release release diphenhydrA diphenhydrA No [place] Unknown Unknown MINE 25 mg MINE 25 mg - ,Abiel capsule capsule Brandon lithium lithium 2018- No Kandy Unknown Unknown carbonate carbonate 11-29 Willian U[facility] 300 mg 300 mg tablet tablet Colace 100 Colace 100 2017-10- No [place] Unknown Unknown mg capsule mg capsule - Abiel UPTON ipratropium ipratropium No [place] Unknown Unknown bromide bromide 02-19 Abiel U[facility] 0.02 % 0.02 % Brandon solution solution for for inhalation inhalation albuterol albuterol No [place] Unknown Unknown sulfate 2.5 sulfate 2.5 02-19 Abiel U[facility] mg/3 mL mg/3 mL Brandon (0.083 %) (0.083 %) solution solution for for nebulizatio nebulizatio n n predniSONE predniSONE 2018- No [place] Unknown Unknown 20 mg 20 mg 12-28 Abiel UPT[facility] tablet tablet Brandon benzonatate benzonatate No [place] Unknown Unknown 100 mg 100 mg 12-28 Abiel UPTON capsule capsule Brandon doxycycline doxycycline 2018- No [place] Unknown Unknown hyclate 100 hyclate 100 12-28- [...] Unknown Unknown 2,000 unit 2,000 unit 01-01 ,Deb tablet tablet Colace 100 Colace 100 No Pate Unknown Unknown mg capsule mg capsule 01-01 MD,Deb calcium calcium No [place] Unknown Unknown 500 mg 500 mg 01-01 MD,Deb LaMICtal 25 LaMICtal 25 2018-0 2019- No Kandy Unknown Unknown mg tablet mg tablet 01-29 MD,Willian LaMICtal LaMICtal 2018- No Kandy Unknown Unknown mg tablet mg tablet 01-29 ,Willian Invokana Invokana 2018- No P[place] Unknown Unknown 100 mg 100 mg 02-20- MD,Deb tablet tablet Diflucan Diflucan No P[place] Unknown Unknown 150 mg 150 mg 02-20 MD,Deb tablet tablet LaMICtal LaMICtal No Kandy Unknown Unknown mg tablet mg tablet 03-05 MD,Willian Topamax 50 Topamax 50 2018- No Kaitlynn Unknown Unknown mg tablet mg tablet 02-26 ,Geraldo gabapentin gabapentin No Kandy Unknown Unknown 600 mg 600 mg 03-05 MD,Willian tablet tablet Topamax 50 Topamax 50 2018- No Kaitlynn Unknown Unknown mg tablet mg tablet 02-26 Geraldo UPTON Topamax 50 Topamax 50 2018- No Kaitlynn Unknown Unknown mg tablet mg tablet 04-09 08 ,Geraldo Topamax 50 Topamax 50 2018- No Kaitlynn Unknown Unknown mg tablet mg tablet 05-21 ,Geraldo Marsh 2 Rexulti 2018- Yes Kandy Unknown Unknown mg tablet mg tablet 05-31 ,Willian Herreraus 2018-10 Yes Pate Unknown Unknown Solostar Solostar 0- ,Deb U-100 U-100 Insulin 100 Insulin 100 unit/mL (3 unit/mL (3 mL) mL) subcutaneou subcutaneou s pen s pen Topamax 50 Topamax 50 2018-10 Yes Kaitlynn Unknown Unknown mg tablet mg tablet 0- ,Geraldo Saphris 5 Saphris 2018-10 Yes Kandy Unknown Unknown mg mg 0- ,Willian sublingual sublingual tablet tablet Rexulti 2 Rexulti 2 2019- Yes Kandy Unknown Unknown mg tablet mg tablet 05-31 ,Willian Diazokaelva Invokana No P[place] Unknown Unknown 100 mg 100 mg 02-20 MD,Deb tablet tablet carvedilol carvedilol 2017-10 No [place] Unknown Unknown 6.25 mg 6.25 mg 0- MD,Abiel tablet tablet Brandon Latuda 20 Latuda 20 2018-10- Yes Kandy Unknown Unknown mg tablet mg tablet 10-02 Willian U[facility] Latuda 40 Latuda 40 2018-10 Yes Kandy Unknown Unknown mg tablet mg tablet 10-09 ,Willian Aimovig Aimovig 2018-10 Yes Kaitlynn Unknown Unknown Autoinjecto Autoinjecto 10-09 Geraldo UPTON r 70 mg/mL r 70 mg/mL subcutaneou subcutaneou s s auto-inject auto-inject or or Vital Signs Vital Name Observation Time Observation Value Comments SYSTOLIC mm[Hg] 2019-08-20 18:08:56 128 mm[Hg] mm[Hg] Method: Sit SYSTOLIC mm[Hg] 2019-06-13 18:07:48 142 mm[Hg] mm[Hg] Method: Stand DIASTOLIC mm[Hg] 2019-08-20 18:08:56 80 mm[Hg] mm[Hg] Method: Sit DIASTOLIC mm[Hg] 2019-06-13 18:07:48 72 mm[Hg] mm[Hg] Method: Stand PULSE 2019-08-20 18:08:56 82 /min /min RESP RATE 2019-08-20 18:08:56 16 /min /min TEMP 2019-08-20 18:08:56 97.7 [degF] Procedures This patient has no known procedures. Results This patient has no known results.
--- OUTSIDE RECORDS SUMMARY | 2019-09-11 10:06 | XMS REPORT ---
:1960 Author Organization [facility] Care Team Providers Name Role Phone Unavailable Unavailable Unavailable Problems Condition Condition Condition Status Onset Resolution Last Treating Comments Name Details Category Date Date Treatment Clinician Date Pain frequent Pain Mgmt Resolve 2019-02-05 Becca pain d 06-20 10:30:00 (Andrés) 08:20: Walker 00 [id number] Cardio edema Cardiovasc Resolve 2018-08-16 Becca ular d 06-20 10:00:00 (Andrés) 08:20: Walker 00 [id number] Respiratory dyspnea Respirator Resolve 2019-02-05 Becca present y d 06-20 10:30:00 (Andrés) 08:20: Walker 00 [id number] Respiratory lung sounds Respirator Resolve 2019-02-05 Becca deficit y d 06-20 10:30:00 (Andrés) 08:20: Walker 00 [id number] Endo/Gage anti-coagul Endo/Gage Resolve 2018-07-31 Becca ation d 06-20 11:58:00 (Andrés) therapy 08:20: Walker 00 [id number] Integument skin Integument Active Becca integrity 06-20 (Andrés) risk 08:20: Walker [id number] Elimination urinary Eliminatio Resolve 2018-08-16 Becca incontinenc n d 06-20 10:00:00 (Andrés) e 08:20: Walker 00 [id number] Neuro confusion Neuro/Emot Active Becca present ion 06-20 (Andrés) 08:20: Walker 00 [id number] Neuro anxiety Neuro/Emot Active Becca present ion 06-20 (Andrés) 08:20: [place] 00 [id number] Neuro impaired Neuro/Emot Active Becca decision-ma ion 06-20 (Andrés) caty 08:20: Walker [id number] Activity ADL Activity Active Becca assistance 06-20 (Andrés) required 08:20: Walker 00 [id number] Safety cannot be Safety Active Becca left alone 06-20 (Andrés) 08:20: Walker 00 [id number] Safety fall risk Safety Resolve 2019-08-13 Becca factor d 06-20 10:55:00 (Andrés) present 08:20: Walker [id number] Safety risk for Safety Resolve 2019-08-13 Becca hospitaliza d 06-20 10:55:00 (Andrés) tion 08:20: Walkre [id number] Medication oral med Meds Resolve 2018-07-31 Becca assistance d 06-20 11:58:00 (Andrés) required 08:20: Walker 00 [id number] Medication potential Meds Resolve 2018-07-31 Becca clinically d 06-20 11:58:00 (Andrés) significant 08:20: Walker medication 00 [id number] issue Musculoskel requires Musculoske Resolve 2019-06-13 Becca etal human letal d 06-20 13:00:00 (Andrés) assist to 08:20: Walker leave home 00 [id number] Musculoskel transfer Musculoske Resolve 2019-06-13 Becca etal assistance letal d 06-20 13:00:00 [place] required 08:20: [id number] 00 Respiratory oxygen Respirator Resolve 2019-02-05 [place] treatments y d 06-26 10:30:00 Guy-Zos in home 10:28: h [id number] 00 Safety can be left Safety Active Loreta alone for 06-26 Guy-Zos only short 10:28: h [id number] periods 00 Elimination urinary Eliminatio Resolve 2017-102018-08-16 [place] frequency n d 30 10:00:00 Guy-Zos 11:58: h [id number] 00 Neuro knowledge/s Neuro/Emot Active 2017-10 [place] kill ion Guy-Zos deficit: cg 11:58: h [id number] 00 Endo/Gage anti-coagul Endo/Gage Resolve 2017-102019-01-29 [place] ation d 1-15 12:45:00 Guy-Zos therapy 10:00: h [id number] 00 Neuro depressive Neuro/Emot Active 2017-10 [place] feelings ion 1-15 Guy-Zos present 10:00: h [id number] 00 Medication oral med Meds Resolve 2017-102019-02-05 [place] assistance d 1-15 10:30:00 [place]os required 10:00: h [id number] 00 Medication injectable Meds Resolve 2017-102019-02-05 [place] med d 1-15 10:30:00 Guy-Zos assistance 10:00: h [id number] required 00 Medication potential Meds Active 2017-10 [place] clinically -15 Guy-Zos significant 10:00: h [id number] medication 00 issue Endo/Gage knowledge/s Endo/Gage Resolve [...] treatment y 12-25 Emily in home 09:30: [id number] 00 Endo/Gage glucose Endo/Gage Resolve 2019-01-29 Cherrise tolerance d - 12:45:00 [place] problem 09:30: [id number] 00 Nutrition knowledge/s Nutrition Resolve 2019-01-29 Cherrise kill d 3- 12:45:00 [place] deficit: pt 09:30: [id number] 00 Elimination urinary Eliminatio Resolve 2019-01-15 Cherrise incontinenc n d 12-25 11:25:00 [place] e 09:30: [id number] 00 Elimination urinary Eliminatio Resolve 2019-01-15 Cherrise urgency n d 12-25 11:25:00 Emily 09:30: [id number] 00 Endo/Gage insulin Endo/Gage Resolve 2019-02-05 Cher[place] admn d 01-01 10:30:00 Emily dependence 09:55: [id number] 00 Endo/Gage glucose Endo/Gage Resolve 2019-02-05 Cherrise testing d 01-01 10:30:00 Emily dependence 09:55: [id number] 00 Elimination urinary Eliminatio Resolve 2019-01-15 Cher[place] frequency n d 01-01 11:25:00 [place] 09:55: [id number] 00 Elimination recurring Eliminatio Resolve 2019-02-05 Cherrise UTI n d 01-01 10:30:00 [place] 09:55: [id number] 00 Respiratory knowledge/s Respirator Resolve 2019-01-08 Marlene [...] n 0-08 Nila e 09:15: [employer] 00 [id number] Elimination constipatio Eliminatio Active 2018-10 Marlene n [...] mg capsule capsule carvedilol carvedilol 2017- No [place] Unknown Unknown 6.25 mg 6.25 mg 06-20 Abiel UPTON tablet tablet Brandon Vitamin D3 Vitamin D3 No [place] 2000 Unknown 2,000 unit 2,000 unit Sarah [facility] units capsule capsule dilTIAZem dilTIAZem 2017- No [place] Unknown Unknown 120 mg 120 mg 06-20 Abiel [place] tablet tablet Brandon Depakote Depakote No [place] 1-2 Unknown 500 mg 500 mg Sarah [facility] tablet,lauryn tablet,lauryn yed release yed release Colace 100 Colace 100 2017- No [place] Unknown Unknown mg capsule mg capsule 06-20 Abiel [facility] furosemide furosemide No [place] 20 mg Unknown 20 mg 20 mg Sarah [facility] tablet tablet gabapentin gabapentin 2017- No [place] Unknown Unknown 300 mg 300 mg 06-20 Abiel [facility] capsule Brandon glimepiride glimepiride No [place] 4 mg Unknown 4 mg tablet 4 mg tablet Sarah [facility] liraglutide liraglutide No [place] 1 Unknown 0.6 mg/0.1 0.6 mg/0.1 Sarah U[facility] injecti mL (18 mg/3 mL (18 mg/3 on mL) mL) subcutaneou subcutaneou s pen s pen injector injector lisinopril lisinopril 2017- No [place] Unknown Unknown 20 mg 20 mg 06-20 Abiel [facility] tablet tablet Brandon Oyster Oyster No [place] 500 mg Unknown Shell Shell Sarah [facility] Calcium 500 Calcium 500 500 mg 500 mg calcium calcium (1,250 mg) (1,250 mg) tablet tablet multivitami multivitami 2017- No [place] Unknown Unknown n capsule n capsule 06-20 Abiel [facility] nystatin nystatin No [place] topical Unknown 100,000 100,000 Saarh U[place] unit/gram unit/gram topical topical cream cream [...] Sarah [facility] capsule capsule oxygen oxygen No [place] Unknown Unknown 06-20 Abiel [facility] clopidogrel clopidogrel 2017- No [place] Unknown Unknown 75 mg 75 mg 06-20 Abiel U[place] tablet tablet Brandon desvenlafax desvenlafax 2017- No [place] Unknown Unknown ine ine 06-20 Abiel [facility] succinate succinate Brandon ER 100 mg ER 100 mg tablet,exte tablet,exte nded nded release 24 release 24 hr hr diphenhydrA diphenhydrA 2017- No [place] Unknown Unknown MINE 25 mg MINE 25 mg 06-20 Abiel [facility] capsule capsule Brandon Depakote ER Depakote ER 2017- No [place] Unknown Unknown 500 mg 500 mg 06-20 Abiel [facility] tablet,exte tablet,exte Brandon nded nded release release famotidine famotidine 2017- No [place] Unknown Unknown 40 mg 40 mg 06-20 ,Abiel tablet tablet Brandon gabapentin gabapentin 2017- No [place] Unknown Unknown 100 mg 100 mg 06-20 ,Abiel capsule capsule Brandon glimepiride glimepiride 2017- No [place] Unknown Unknown 4 mg tablet 4 mg tablet 06-20 Abiel [facility] Nystop Nystop No [place] Unknown Unknown 100,000 100,000 06-20 Abiel [facility] unit/gram unit/gram Brandon topical topical powder powder atorvastati atorvastati 2017- No [place] Unknown Unknown n 80 mg n 80 mg 06-20 ,Abiel tablet tablet Brandon carvedilol carvedilol 2017-10- No [place] Unknown Unknown 6.25 mg 6.25 mg 07-02 ,Abiel tablet tablet Brandon Colace 100 Colace 100 2017-10- No [place] Unknown Unknown mg capsule mg capsule 07-02 Abiel [facility] diphenhydrA diphenhydrA 2017-10- No [place] Unknown Unknown MINE 25 mg MINE 25 mg 12-14 ,Abiel capsule capsule Brandon Depakote ER Depakote ER 2017-10- No [place] Unknown Unknown 500 mg 500 mg 09-27 ,Abiel bahena,exte tablet,kelly Brandon nded nded release release Topamax 50 Topamax 50 2017- No [place] Unknown Unknown mg tablet mg tablet 06-27 ,Willian Saphris Saphris 2018- No [place] Unknown Unknown (black (black 06-27 ,Willian golden) 10 [place]) 10 mg mg sublingual sublingual tablet tablet pantoprazol pantoprazol 2017- No [place] Unknown Unknown e 40 mg e 40 mg 06-27 ,Abiel tablet,lauryn tablet,lauryn Brandon yed release yed release raNITIdine raNITIdine 2017- No [place] Unknown Unknown 300 mg 300 mg 06-27 ,Abiel tablet tablet Brandon Calcium 500 Calcium 500 2017- No [place] Unknown Unknown With D 500 With D 500 06-27 Abiel [facility] mg (1,250 mg (1,250 Brandon mg)-400 mg)-400 unit tablet unit tablet Vitamin D3 Vitamin D3 2018- No [place] Unknown Unknown 400 unit 400 unit 06-27 Abiel U[place] capsule capsule Brandon Halltoza No [place] Unknown Unknown 2-Jeison 0.6 2-Jeison 0.6 06-27 Abiel U[place] mg/0.1 mL mg/0.1 mL Brandon (18 mg/3 (18 mg/3 mL) mL) subcutaneou subcutaneou s pen s pen injector injector atorvastati atorvastati 2017-10- No [place] Unknown Unknown n 80 mg n 80 [...] Unknown Unknown mg tablet mg tablet 10-09 ,eGraldo doxycycline doxycycline 2017-10- No [place] Unknown Unknown monohydrate monohydrate 10-15 Abiel U[place] 100 mg 100 mg Brandon capsule capsule lithium lithium 2017-10- No [place] Unknown Unknown carbonate carbonate 11-28 ,Willian 300 mg 300 mg tablet tablet Depakote ER Depakote ER 2017-10- No [place] Unknown Unknown 500 mg 500 mg 11-28 ,Willian tablet,exte tablet,exte nded nded release release sennosides sennosides 2017-10 No [place] Unknown Unknown 8.6 8.6 2- ,Abiel mg-docusate [...] mg tablet tablet diphenhydrA diphenhydrA 2018- No [place] Unknown Unknown MINE 25 mg MINE 25 mg 12-14 ,Abiel capsule capsule Brandon clindamycin clindamycin 2018- No [place] Unknown Unknown HCl 300 mg HCl 300 mg 12-25 ,Deb capsule capsule dilTIAZem dilTIAZem No [place] Unknown Unknown 120 mg 120 mg 06-20 ,Abiel tablet tablet Brandon gabapentin gabapentin 2018- No [place] Unknown Unknown 300 mg 300 mg 06-20 ,Abiel capsule capsule Brandon lisinopril lisinopril No [place] Unknown Unknown 20 mg 20 mg 06-20 ,Abiel tablet tablet Brandon multivitami multivitami No [place] Unknown Unknown n capsule n capsule 06-20 ,Abiel Taylor clopidogrel clopidogrel No [place] Unknown Unknown 75 mg 75 mg 06-20 ,Abiel tablet tablet Brandon gabapentin gabapentin No [place] Unknown Unknown 100 mg 100 mg 06-20 ,Abiel capsule capsule Brandon glimepiride glimepiride No [place] Unknown Unknown 4 mg tablet 4 mg tablet 06-20 ,Abiel Taylor carvedilol carvedilol 2017- No [place] Unknown Unknown 6.25 mg 6.25 mg 06-20 ,Abiel tablet tablet Brandon Saphris Saphris 2017- No [place] Unknown Unknown (black (black 06-20 ,Willian golden) 10 golden) 10 mg mg sublingual sublingual tablet tablet pantoprazol pantoprazol No [place] Unknown Unknown e 40 mg e 40 mg 06-20 ,Abiel tablet,lauryn tablet,lauryn Brandon yed release yed release raNITIdine raNITIdine No [place] Unknown Unknown 300 mg 300 mg 06-20 ,Abiel tablet tablet Brandon Calcium 500 Calcium 500 2017- No [place] Unknown Unknown With D 500 With D 500 06-20 ,Abiel mg (1,250 mg (1,250 Brandon mg)-400 mg)-400 unit tablet unit tablet Vitamin D3 Vitamin D3 2018- No [place] Unknown Unknown 1,000 unit 1,000 unit 01-01 ,Abiel capsule capsule Brandon atorvastati atorvastati 2017- No [place] Unknown Unknown n 80 mg n 80 mg 107-31 ,Abiel tablet tablet Brandon atorvastajudit atorvastati 2017-10 No [place] Unknown Unknown n 80 mg n 80 [...] 24 hour hour carvedilol carvedilol 2017-10- No [place] Unknown Unknown 6.25 mg 6.25 mg 07-02 ,Abiel tablet tablet Brandon Saphris Saphris 2018- No [place] Unknown Unknown (black (black 06-27 09-12 ,Willian golden) 10 golden) 10 mg mg sublingual sublingual tablet tablet Calcium 500 Calcium 500 2018- No [place] Unknown Unknown With D 500 With D 500 06-27 ,Abiel mg (1,250 mg (1,250 Brandon mg)-400 mg)-400 unit tablet unit tablet Topamax 50 Topamax 50 2017-10- No [place]aitlynn Unknown Unknown mg tablet mg tablet 10-09 ,Geraldo Depakote ER Depakote ER No [place] Unknown Unknown 500 mg 500 mg 10-23 Willian U[place] tablet,exte tablet,exte nded nded release release diphenhydrA diphenhydrA No [place] Unknown Unknown MINE 25 mg MINE 25 mg - ,Abiel capsule capsule Brandon lithium lithium 2018- No [place] Unknown Unknown carbonate carbonate 11-29 Willian [place] 300 mg 300 mg tablet tablet Colace 100 Colace 100 2017-10- No [place] Unknown Unknown mg capsule mg capsule - Abiel U[place] ipratropium ipratropium No [place] Unknown Unknown bromide bromide 02-19 Abiel U[place] 0.02 % 0.02 % Brandon solution solution for for inhalation inhalation albuterol albuterol No [place] Unknown Unknown sulfate 2.5 sulfate 2.5 02-19 Abiel [facility] mg/3 mL mg/3 mL Brandon (0.083 %) (0.083 %) solution solution for for nebulizatio nebulizatio n n predniSONE predniSONE 2018- No [place] Unknown Unknown 20 mg 20 mg 12-28 Abiel [facility] tablet tablet Brandon benzonatate benzonatate No [place] Unknown Unknown 100 mg 100 mg 12-28 Abile UPTON capsule capsule Brandon doxycycline doxycycline 2018- No [place] Unknown Unknown hyclate 100 hyclate 100 12-28- [...] MD,Deb tablet tablet carvedilol carvedilol 2017-10 No [place] Unknown Unknown 6.25 mg 6.25 mg 0- [...]
--- OUTSIDE RECORDS SUMMARY | 2019-09-11 10:06 | XMS REPORT ---
:1960 Author Organization [facility] Care Team Providers Name Role Phone Unavailable Unavailable Unavailable Problems Condition Condition Condition Status Onset Resolution Last Treating Comments Name Details Category Date Date Treatment Clinician Date Pain frequent Pain Mgmt Resolve 2019-02-05 Becca pain d 06-20 10:30:00 (Andrés) 08:20: Walker 00 [id number] Cardio edema Cardiovasc Resolve 2018-08-16 Becca ular d 06-20 10:00:00 (Andrés) 08:20: Walker 00 [id number] Respiratory dyspnea Respirator Resolve 2019-02-05 Becca present y d 06-20 10:30:00 (Andrés) 08:20: Walker 00 [id number] Respiratory lung sounds Respirator Resolve 2019-02-05 Becca deficit y d 06-20 10:30:00 (Andrés) 08:20: Walker 00 [id number] Endo/Gage anti-coagul Endo/Gage Resolve 2018-07-31 Becca ation d 06-20 11:58:00 (Andrés) therapy 08:20: Walker 00 [id number] Integument skin Integument Active Becca integrity 06-20 (Andrés) risk 08:20: Walker [id number] Elimination urinary Eliminatio Resolve 2018-08-16 Becca incontinenc n d 06-20 10:00:00 (Andrés) e 08:20: Walker 00 [id number] Neuro confusion Neuro/Emot Active Becca present ion 06-20 (Andrés) 08:20: Walker 00 [id number] Neuro anxiety Neuro/Emot Active Becca present ion 06-20 (Andrés) 08:20: Walker 00 [id number] Neuro impaired Neuro/Emot Active Becca decision-ma ion 06-20 (Andrés) caty 08:20: Walker [id number] Activity ADL Activity Active Becca assistance 06-20 (Andrés) required 08:20: Walker 00 [id number] Safety cannot be Safety Active Becca left alone 06-20 (Andrés) 08:20: Walker 00 [id number] Safety fall risk Safety Resolve 2019-08-13 Becca factor d 06-20 10:55:00 (Andrés) present 08:20: Walker [id number] Safety risk for Safety Resolve 2019-08-13 Becca hospitaliza d 06-20 10:55:00 (Andrés) tion 08:20: Walker [id number] Medication oral med Meds Resolve 2018-07-31 Becca assistance d 06-20 11:58:00 (Andrés) required 08:20: Walker 00 [id number] Medication potential Meds Resolve 2018-07-31 Becca clinically d 06-20 11:58:00 (Andrés) significant 08:20: Walker medication 00 [id number] issue Musculoskel requires Musculoske Resolve 2019-06-13 Becca etal human letal d 06-20 13:00:00 (Andrés) assist to 08:20: Walker leave home 00 [id number] Musculoskel transfer Musculoske Resolve 2019-06-13 Becca etal assistance letal d 06-20 13:00:00 Guidelli required 08:20: [id number] Respiratory oxygen Respirator Resolve 2019-02-05 Loreta treatments y d 06-26 10:30:00 Guy-Zos in home 10:28: h [id number] 00 Safety can be left Safety Active Loreta alone for 06-26 Guy-Zos only short 10:28: h [id number] periods 00 Elimination urinary Eliminatio Resolve 2017-102018-08-16 Loreta frequency n d 30 10:00:00 Guy-Zos 11:58: h [id number] 00 Neuro knowledge/s Neuro/Emot Active 2017-10 Loreta kill ion Guy-Zos deficit: cg 11:58: h [id number] 00 Endo/Gage anti-coagul Endo/Gage Resolve 2017-102019-01-29 Loreta ation d 1-15 12:45:00 Guy-Zos therapy 10:00: h [id number] 00 Neuro depressive Neuro/Emot Active 2017-10 Loreta feelings ion 1-15 Guy-Zos present 10:00: h [id number] 00 Medication oral med Meds Resolve 2017-102019-02-05 Loreta assistance d 1-15 10:30:00 [place]-Zos required 10:00: h [id number] 00 Medication injectable Meds Resolve 2017-102019-02-05 Loreta med d 1-15 10:30:00 Guy-Zos assistance 10:00: h [id number] required 00 Medication potential Meds Active 2017-10 Loreta clinically -15 Guy-Zos significant 10:00: h [id number] medication 00 issue Endo/Gage knowledge/s Endo/Gage Resolve [...] treatment y 12-25 Emily in home 09:30: [id number] 00 Endo/Gage glucose Endo/Gage Resolve 2019-01-29 Cherrise tolerance d - 12:45:00 [place] problem 09:30: [id number] 00 Nutrition knowledge/s Nutrition Resolve 2019-01-29 Cherrise kill d 3- 12:45:00 [place] deficit: pt 09:30: [id number] 00 Elimination urinary Eliminatio Resolve 2019-01-15 Cherrise incontinenc n d 12-25 11:25:00 [place] e 09:30: [id number] 00 Elimination urinary Eliminatio Resolve 2019-01-15 Cherrise urgency n d 12-25 11:25:00 Emily 09:30: [id number] 00 Endo/Gage insulin Endo/Gage Resolve 2019-02-05 Cherrise admn d 01-01 10:30:00 Emily dependence 09:55: [id number] 00 Endo/Gage glucose Endo/Gage Resolve 2019-02-05 Cherrise testing d 01-01 10:30:00 Emily dependence 09:55: [id number] 00 Elimination urinary Eliminatio Resolve 2019-01-15 Cherrise frequency n d 01-01 11:25:00 [place] 09:55: [id number] 00 Elimination recurring Eliminatio Resolve 2019-02-05 Cherrise UTI n d 01-01 10:30:00 [place] 09:55: [id number] 00 Respiratory knowledge/s Respirator Resolve 2019-01-08 Marlene [...] n 0-08 Nila e 09:15: [employer] 00 [id number] Elimination constipatio Eliminatio Active 2018-10 Marlene n [...] mg capsule capsule carvedilol carvedilol 2017- No Marion Unknown Unknown 6.25 mg 6.25 mg 06-20 Abiel UPTON tablet tablet Brandon Vitamin D3 Vitamin D3 No Crowe 2000 Unknown 2,000 unit 2,000 unit Sarah UPTON units capsule capsule dilTIAZem dilTIAZem 2017- No [place] Unknown Unknown 120 mg 120 mg 06-20 Abiel UPTON tablet tablet Brandon Depakote Depakote No Crowe 1-2 Unknown 500 mg 500 mg Sarah UPTON tablet,lauryn tablet,lauryn yed release yed release Colace 100 Colace 100 2017- No Marion Unknown Unknown mg capsule mg capsule 06-20 Abiel UPTON furosemide furosemide No Crowe 20 mg Unknown 20 mg 20 mg Sarah UPTON tablet tablet gabapentin gabapentin 2017- No [place] Unknown Unknown 300 mg 300 mg 06-20 Abiel UPTON capsule Brandon glimepiride glimepiride No Crowe 4 mg Unknown 4 mg tablet 4 mg tablet Sarah UPTON liraglutide liraglutide No Crowe 1 Unknown 0.6 mg/0.1 0.6 mg/0.1 Sarah UPTON injecti mL (18 mg/3 mL (18 mg/3 on mL) mL) subcutaneou subcutaneou s pen s pen injector injector lisinopril lisinopril 2017- No Marion Unknown Unknown 20 mg 20 mg 06-20 Abiel UPTON tablet tablet Brandon Oyster Oyster No Crowe 500 mg Unknown Shell Shell Sarah UPTON Calcium 500 Calcium 500 500 mg 500 mg calcium calcium (1,250 mg) (1,250 mg) tablet tablet multivitami multivitami 2017- No Marion Unknown Unknown n capsule n capsule 06-20 [...] Sarah UPTON capsule capsule oxygen oxygen No Marion Unknown Unknown 06-20 Abiel UPTON clopidogrel clopidogrel 2017- No [place] Unknown Unknown 75 mg 75 mg 06-20 Abiel UPTON tablet tablet Brandon desvenlafax desvenlafax 2017- No Marion Unknown Unknown ine ine 06-20 Abiel UPTON succinate succinate Brandon ER 100 mg ER 100 mg tablet,exte tablet,exte nded nded release 24 release 24 hr hr diphenhydrA diphenhydrA 2017- No Marion Unknown Unknown MINE 25 mg MINE 25 mg 06-20 Abiel UPTON capsule capsule Brandon Depakote ER Depakote ER 2017- No Marion Unknown Unknown 500 mg 500 mg 06-20 Abiel UPTON tablet,exte tablet,exte Brandon nded nded release release famotidine famotidine 2017- No [place] Unknown Unknown 40 mg 40 mg 06-20 ,Abiel tablet tablet Brandon gabapentin gabapentin 2017- No [place] Unknown Unknown 100 mg 100 mg 06-20 ,Abiel capsule capsule Brandon glimepiride glimepiride 2017- No [place] Unknown Unknown 4 mg tablet 4 mg tablet 06-20 Abiel UPTON Nystop Nystop No Marion Unknown Unknown 100,000 100,000 06-20 Abiel UPTON unit/gram unit/gram Brandon topical topical powder powder atorvastati atorvastati 2017- No [place] Unknown Unknown n 80 mg n 80 mg 06-20 ,Abiel tablet tablet Brandon carvedilol carvedilol 2017-10- No [place] Unknown Unknown 6.25 mg 6.25 mg 07-02 ,Abiel tablet tablet Brandon Colace 100 Colace 100 2017-10- No Marion Unknown Unknown mg capsule mg capsule 07-02 Abiel UPTON diphenhydrA diphenhydrA 2017-10- No [place] Unknown Unknown MINE 25 mg MINE 25 mg 12-14 ,Abiel capsule capsule Brandon Depakote ER Depakote ER 2017-10- No Marion Unknown Unknown 500 mg 500 mg 09-27 ,Abiel bahena,exte tablet,kelly Brandon nded nded release release Topamax 50 Topamax 50 2017- No Kandy Unknown Unknown mg tablet mg tablet 06-27 ,Willian Saphris Saphris 2018- No Kandy Unknown Unknown (black (black 06-27 ,Willian golden) 10 chico) 10 mg mg sublingual sublingual tablet tablet pantoprazol pantoprazol 2017- No Marion Unknown Unknown e 40 mg e 40 mg 06-27 ,Abiel tablet,lauryn tablet,lauryn Brandon yed release yed release raNITIdine raNITIdine 2017- No Marion Unknown Unknown 300 mg 300 mg 06-27 ,Abiel tablet tablet Brandon Calcium 500 Calcium 500 2017- No Marion Unknown Unknown With D 500 With D 500 06-27 Abiel UPTON mg (1,250 mg (1,250 Brandon mg)-400 mg)-400 unit tablet unit tablet Vitamin D3 Vitamin D3 2018- No Marion Unknown Unknown 400 unit 400 unit 06-27 Abiel UPTON capsule capsule Brandon Halltoza No Marion Unknown Unknown 2-Jeison 0.6 2-Jeison 0.6 06-27 Abiel UPTON mg/0.1 mL mg/0.1 mL Brandon (18 mg/3 (18 mg/3 mL) mL) subcutaneou subcutaneou s pen s pen injector injector atorvastati atorvastati 2017-10- No Marion Unknown Unknown n 80 mg n 80 [...] tablet 10-09 ,Geraldo doxycycline doxycycline 2017-10- No Marion Unknown Unknown monohydrate monohydrate 10-15 Abiel UPTON 100 mg 100 mg Brandon capsule capsule lithium lithium 2017-10- No Kandy Unknown Unknown carbonate carbonate 11-28 ,Willian 300 mg 300 mg tablet tablet Depakote ER Depakote ER 2017-10- No Kandy Unknown Unknown 500 mg 500 mg 11-28 ,Willian tablet,exte tablet,exte nded nded release release sennosides sennosides 2017-10 No Marion Unknown Unknown 8.6 8.6 2- ,Abiel mg-docusate [...] mg tablet tablet diphenhydrA diphenhydrA 2018- No Marion Unknown Unknown MINE 25 mg MINE 25 mg 12-14 ,Abiel capsule capsule Brandon clindamycin clindamycin 2018- No Pate Unknown Unknown HCl 300 mg HCl 300 mg 12-25 ,Deb capsule capsule dilTIAZem dilTIAZem No Marion Unknown Unknown 120 mg 120 mg 06-20 ,Abiel tablet tablet Brandon gabapentin gabapentin 2018- No Marion Unknown Unknown 300 mg 300 mg 06-20 ,Abiel capsule capsule Brandon lisinopril lisinopril No Marion Unknown Unknown 20 mg 20 mg 06-20 ,Abile tablet tablet Brandon multivitami multivitami No Marion Unknown Unknown n capsule n capsule 06-20 ,Abiel Taylor clopidogrel clopidogrel No Marion Unknown Unknown 75 mg 75 mg 06-20 ,Abiel tablet tablet Brandon gabapentin gabapentin No Marion Unknown Unknown 100 mg 100 mg 06-20 ,Abiel capsule capsule Brandon glimepiride glimepiride No Marion Unknown Unknown 4 mg tablet 4 mg tablet 06-20 ,Abiel Taylor carvedilol carvedilol 2017- No [place] Unknown Unknown 6.25 mg 6.25 mg 06-20 ,Abiel tablet tablet Brandon Saphris Saphris 2017- No Kandy Unknown Unknown (black (black 06-20 ,Willian golden) 10 golden) 10 mg mg sublingual sublingual tablet tablet pantoprazol pantoprazol No Marion Unknown Unknown e 40 mg e 40 mg 06-20 ,Abiel tablet,lauryn tablet,lauryn Brandon yed release yed release raNITIdine raNITIdine No Marion Unknown Unknown 300 mg 300 mg 06-20 ,Abiel tablet tablet Brandon Calcium 500 Calcium 500 2017- No Marion Unknown Unknown With D 500 With D 500 06-20 ,Abiel mg (1,250 mg (1,250 Brandon mg)-400 mg)-400 unit tablet unit tablet Vitamin D3 Vitamin D3 2018- No Marion Unknown Unknown 1,000 unit 1,000 unit 01-01 ,Abiel capsule capsule Brandon atorvastati atorvastati 2017- No Marion Unknown Unknown n 80 mg n 80 mg 107-31 ,Abiel tablet tablet Brandon atorvastajudit atorvastati 2017-10 No Marion Unknown Unknown n 80 mg n 80 [...] 24 hour hour carvedilol carvedilol 2017-10- No Marion Unknown Unknown 6.25 mg 6.25 mg 07-02 ,Abiel tablet tablet Brandon Saphris Saphris 2018- No Kandy Unknown Unknown (black (black 06-27 09-12 ,Willian golden) 10 golden) 10 mg mg sublingual sublingual tablet tablet Calcium 500 Calcium 500 2018- No Marion Unknown Unknown With D 500 With D 500 06-27 ,Abiel mg (1,250 mg (1,250 Brandon mg)-400 mg)-400 unit tablet unit tablet Topamax 50 Topamax 50 2017-10- No Kaitlynn Unknown Unknown mg tablet mg tablet 10-09 ,Geraldo Depakote ER Depakote ER No Kandy Unknown Unknown 500 mg 500 mg 10-23 Willian UPTON tablet,exte tablet,exte nded nded release release diphenhydrA diphenhydrA No Marion Unknown Unknown MINE 25 mg MINE 25 mg - ,Abiel capsule capsule Brandon lithium lithium 2018- No Kandy Unknown Unknown carbonate carbonate 11-29 Willian UPTON 300 mg 300 mg tablet tablet Colace 100 Colace 100 2017-10- No Marion Unknown Unknown mg capsule mg capsule - Abiel UPTON ipratropium ipratropium No Marion Unknown Unknown bromide bromide 02-19 Abiel UPTON 0.02 % 0.02 % Branodn solution solution for for inhalation inhalation albuterol albuterol No Marion Unknown Unknown sulfate 2.5 sulfate 2.5 02-19 Abiel UPTON mg/3 mL mg/3 mL Brandon (0.083 %) (0.083 %) solution solution for for nebulizatio nebulizatio n n predniSONE predniSONE 2018- No Marion Unknown Unknown 20 mg 20 mg 12-28 Abiel UPTON tablet tablet Brandon benzonatate benzonatate No Marion Unknown Unknown 100 mg 100 mg 12-28 Abiel UPTON capsule capsule Brandon doxycycline doxycycline 2018- No Marion Unknown Unknown hyclate 100 hyclate 100 12-28- [...] Unknown mg tablet mg tablet 01-29 MD,Willian Invokana Invokana 2018- No Pate Unknown Unknown [...] tablet 05-21 ,Geraldo Marsh 2 Rexulti 2018- No Kandy Unknown Unknown mg tablet [...] MD,Deb tablet tablet carvedilol carvedilol 2017-10 No Marion Unknown Unknown 6.25 mg 6.25 mg 0- [...]
--- OUTSIDE RECORDS SUMMARY | 2019-09-11 10:06 | XMS REPORT ---
:1960 Author Organization [facility] Care Team Providers Name Role Phone Unavailable Unavailable Unavailable Problems Condition Condition Condition Status Onset Resolution Last Treating Comments Name Details Category Date Date Treatment Clinician Date Pain frequent Pain Mgmt Resolve 2019-02-05 Becca pain d 06-20 10:30:00 (Andrés) 08:20: Walker 00 [id number] Cardio edema Cardiovasc Resolve 2018-08-16 Becca ular d 06-20 10:00:00 (Andrés) 08:20: Walker 00 [id number] Respiratory dyspnea Respirator Resolve 2019-02-05 Becca present y d 06-20 10:30:00 (Andrés) 08:20: Walker 00 [id number] Respiratory lung sounds Respirator Resolve 2019-02-05 Becca deficit y d 06-20 10:30:00 (Andrés) 08:20: Walker 00 [id number] Endo/Gage anti-coagul Endo/Gage Resolve 2018-07-31 Becca ation d 06-20 11:58:00 (Andrés) therapy 08:20: Walker 00 [id number] Integument skin Integument Active Becca integrity 06-20 (Andrés) risk 08:20: Walker [id number] Elimination urinary Eliminatio Resolve 2018-08-16 Becca incontinenc n d 06-20 10:00:00 (Andrés) e 08:20: Walker 00 [id number] Neuro confusion Neuro/Emot Active Becca present ion 06-20 (Andrés) 08:20: Walker 00 [id number] Neuro anxiety Neuro/Emot Active Becca present ion 06-20 (Andrés) 08:20: Walker 00 [id number] Neuro impaired Neuro/Emot Active Becca decision-ma ion 06-20 (Andrés) caty 08:20: Walker [id number] Activity ADL Activity Active Becca assistance 06-20 (Andrés) required 08:20: Walker 00 [id number] Safety cannot be Safety Active Becca left alone 06-20 (Andrés) 08:20: Walker 00 [id number] Safety fall risk Safety Resolve 2019-08-13 Becca factor d 06-20 10:55:00 (Andrés) present 08:20: Walker [id number] Safety risk for Safety Resolve 2019-08-13 Becca hospitaliza d 06-20 10:55:00 (Andrés) tion 08:20: Walker [id number] Medication oral med Meds Resolve 2018-07-31 Becca assistance d 06-20 11:58:00 (Andrés) required 08:20: Walker 00 [id number] Medication potential Meds Resolve 2018-07-31 Becca clinically d 06-20 11:58:00 (Andrés) significant 08:20: Walker medication 00 [id number] issue Musculoskel requires Musculoske Resolve 2019-06-13 Becca etal human letal d 06-20 13:00:00 (Andrés) assist to 08:20: Walker leave home 00 [id number] Musculoskel transfer Musculoske Resolve 2019-06-13 Becca etal assistance letal d 06-20 13:00:00 Guidelli required 08:20: [id number] Respiratory oxygen Respirator Resolve 2019-02-05 Loreta treatments y d 06-26 10:30:00 Guy-Zos in home 10:28: h [id number] 00 Safety can be left Safety Active Loreta alone for 06-26 [place]htail-Zos only short 10:28: h [id number] periods 00 Elimination urinary Eliminatio Resolve 2017-102018-08-16 Loreta frequency n d 30 10:00:00 Guy-Zos 11:58: h [id number] 00 Neuro knowledge/s Neuro/Emot Active 2017-10 Loreta kill ion Guy-Zos deficit: cg 11:58: h [id number] 00 Endo/Gage anti-coagul Endo/Gage Resolve 2017-102019-01-29 Loreta ation d 1-15 12:45:00 Guy-Zos therapy 10:00: h [id number] 00 Neuro depressive Neuro/Emot Active 2017-10 Loreta feelings ion 1-15 [place]ail-Zos present 10:00: h [id number] 00 Medication oral med Meds Resolve 2017-102019-02-05 Loreta assistance d 1-15 10:30:00 [place]-Zos required 10:00: h [id number] 00 Medication injectable Meds Resolve 2017-102019-02-05 Loreta med d 1-15 10:30:00 Guy-Zos assistance 10:00: h [id number] required 00 Medication potential Meds Active 2017-10 Loreta clinically -15 [place]-Zos significant 10:00: h [id number] medication 00 issue Endo/Gage knowledge/s Endo/Gage Resolve [...] treatment y 12-25 Emily in home 09:30: [id number] 00 Endo/Gage glucose Endo/Gage Resolve 2019-01-29 Cherrise tolerance d - 12:45:00 Emily problem 09:30: [id number] Nutrition knowledge/s Nutrition Resolve 2019-01-29 Cherrise kill d 3- 12:45:00 [place] deficit: pt 09:30: [id number] 00 Elimination urinary Eliminatio Resolve 2019-01-15 Cherrise incontinenc n d 12-25 11:25:00 Emily e 09:30: [id number] 00 Elimination urinary Eliminatio Resolve 2019-01-15 Cherrise urgency n d 12-25 11:25:00 Emily 09:30: [id number] Endo/Gage insulin Endo/Gage Resolve 2019-02-05 Cherrise admn d 01-01 10:30:00 [place] dependence 09:55: [id number] 00 Endo/Gage glucose Endo/Gage Resolve 2019-02-05 Cherrise testing d 01-01 10:30:00 Emily dependence 09:55: [id number] 00 Elimination urinary Eliminatio Resolve 2019-01-15 Cherrise frequency n d 01-01 11:25:00 [place] 09:55: [id number] 00 Elimination recurring Eliminatio Resolve 2019-02-05 Cherrise UTI n d 01-01 10:30:00 Emily 09:55: [id number] 00 Respiratory knowledge/s Respirator Resolve 2019-01-08 Marlene [...] n 0-08 Nila e 09:15: [employer] 00 [id number] Elimination constipatio Eliminatio Active 2018-10 Marlene n [...] Tiffani n 10-27 Nila 09:00: [employer] 00 [id number] Safety risk for Safety Active 2018-10 Tiffani hospitaliza 10-27 Nila tion 09:00: [employer] 00 [id number] Allergies, Adverse Reactions, Alerts Allergy Name Allergy [...] mg-40 mg capsule capsule carvedilol carvedilol 2017- [place] Unknown Unknown 6.25 mg 6.25 mg 06-20 Abiel [facility] tablet tablet Brandon Vitamin D3 Vitamin D3 No [place] 1999 Unknown 2,000 unit 2,000 unit Sarah [facility] units capsule capsule dilTIAZem dilTIAZem 2017- No [place] Unknown Unknown 120 mg 120 mg 06-20 Abiel [facility] tablet tablet Brandon Depakote Depakote No [place] 1-2 Unknown 500 mg 500 mg Sarah [facility] tablet,lauryn tablet,lauryn yed release yed release Colace 100 Colace 100 2017- No [place] Unknown Unknown mg capsule mg capsule 06-20 Abiel [facility] furosemide furosemide No [place] 20 mg Unknown 20 mg 20 mg Sarah [facility] tablet tablet gabapentin gabapentin 2017- No [place] Unknown Unknown 300 mg 300 mg 06-20 Abiel [facility] capsule capsule Brandon glimepiride glimepiride No [place] 4 mg Unknown 4 mg tablet 4 mg tablet Sarah [facility] liraglutide liraglutide No [place] 1 Unknown 0.6 mg/0.1 0.6 mg/0.1 Sarah [facility] injecti mL (18 mg/3 mL (18 mg/3 on mL) mL) subcutaneou subcutaneou s pen s pen injector injector lisinopril lisinopril 2017- No [place] Unknown Unknown 20 mg 20 mg 06-20 Abiel [facility] tablet tablet Brandon Oyster Oyster No [place] 500 mg Unknown Shell Shell Sarah [facility] Calcium 500 Calcium 500 500 mg 500 mg calcium calcium (1,250 mg) (1,250 mg) tablet tablet multivitami multivitami 2017- No [place] Unknown Unknown n capsule n capsule 06-20 [...] Sarah [facility] capsule capsule oxygen oxygen No [place] Unknown Unknown 06-20 Abiel [facility] clopidogrel clopidogrel 2017- No [place] Unknown Unknown 75 mg 75 mg 06-20 Abiel [facility] tablet tablet Brandon desvenlafax desvenlafax 2017- No [place] Unknown Unknown ine ine 06-20 1030 Abiel [facility] succinate succinate Brandon ER 100 mg ER 100 mg tablet,exte tablet,exte nded nded release 24 release 24 hr hr diphenhydrA diphenhydrA 2017- No [place] Unknown Unknown MINE 25 mg MINE 25 mg 06-20 ,Abiel capsule capsule Brandon Depakote ER Depakote ER 2017- No [place] Unknown Unknown 500 mg 500 mg 06-20 ,Abiel tablet,exte tablet,exte Brandon nded nded release release famotidine famotidine 2017- No [place] Unknown Unknown 40 mg 40 mg 06-20 ,bAiel tablet tablet Brandon gabapentin gabapentin 2017- No [place] Unknown Unknown 100 mg 100 mg 06-20 ,Abiel capsule capsule Brandon glimepiride glimepiride 2017- No [place] Unknown Unknown 4 mg tablet 4 mg tablet 06-20 ,Abiel Taylor Nystop Nystop No [place] Unknown Unknown 100,000 100,000 06-20 Abiel [facility] unit/gram unit/gram Brandon topical topical powder powder atorvastati atorvastati 2017- No [place] Unknown Unknown n 80 mg n 80 mg 06-20 Abiel [facility] tablet tablet Brandon carvedilol carvedilol 2017-10- No [place] Unknown Unknown 6.25 mg 6.25 mg 07-02 ,Abiel tablet tablet Brandon Colace 100 Colace 100 2017-10- No [place] Unknown Unknown mg capsule mg capsule 07-02 Abiel [facility] diphenhydrA diphenhydrA 2017-10- No [place] Unknown Unknown MINE 25 mg MINE 25 mg 15 ,Abiel capsule capsule Brandon Depakote ER Depakote ER 2017-10- No [place] Unknown Unknown 500 mg 500 mg 09-27 ,Abiel tablet,exte tablet,kelly Taylor nded nded release release Topamax 50 Topamax 50 2017- No Kandy Unknown Unknown mg tablet mg tablet 06-27 ,Willian Saphris Saphris 2017- No [place] Unknown Unknown (black (black 06-27 ,Willian golden) 10 [place]) 10 mg mg sublingual sublingual tablet tablet pantoprazol pantoprazol 2017- No [place] Unknown Unknown e 40 mg e 40 mg 06-27 ,Abiel tablet,lauryn tablet,lauryn Brandon yed release yed release raNITIdine raNITIdine 2017- [place] Unknown Unknown 300 mg 300 mg 06-27 Abiel [facility] tablet tablet Brandon Calcium 500 Calcium 500 2017- [place] Unknown Unknown With D 500 With D 500 06-27 Abiel [facility] (1,250 mg (1,250 Brandon mg)-400 mg)-400 unit tablet unit tablet Vitamin D3 Vitamin D3 2018- No [place] Unknown Unknown 400 unit 400 unit 06-27 Abiel [facility] capsule capsule Brandon Victoza Victoza No [place] Unknown Unknown 2-Jeison 0.6 2-Jeison 0.6 06-27 Abiel [facility] mg/0.1 mL mg/0.1 mL Brandon (18 mg/3 (18 mg/3 mL) mL) subcutaneou subcutaneou s pen s pen injector injector atorvastati atorvastati 2017-10- No [place] Unknown Unknown n 80 mg n 80 [...] 10-09 Geraldo [facility] doxycycline doxycycline 2017-10- No [place] Unknown Unknown monohydrate monohydrate 10-15 Abiel [facility] 100 mg 100 mg Brandon capsule capsule lithium lithium 2017-10- No [place]andy Unknown Unknown carbonate carbonate 11-28 ,Willian 300 mg 300 mg tablet tablet Depakote ER Depakote ER 2017-10- No [place] Unknown Unknown 500 mg 500 mg 11-28 ,Willian tablet,exte tablet,exte nded nded release release sennosides sennosides 2017-10 No [place] Unknown Unknown 8.6 8.6 11-28 Abiel U[facility] [...] mg tablet tablet diphenhydrA diphenhydrA 2018- No [place] Unknown Unknown MINE 25 mg MINE 25 mg 12-14 ,Abiel capsule capsule Brandon clindamycin clindamycin 2018- No [place] Unknown Unknown HCl 300 mg HCl 300 mg 12-25 ,Deb capsule capsule dilTIAZem dilTIAZem No [place] Unknown Unknown 120 mg 120 mg 06-20 ,Abiel tablet tablet Brandon gabapentin gabapentin 2018- No [place] Unknown Unknown 300 mg 300 mg 06-20 ,Abiel capsule capsule Brandon lisinopril lisinopril No [place] Unknown Unknown 20 mg 20 mg 06-20 Abiel [facility] tablet tablet Brandon multivitami multivitami No [place] Unknown Unknown n capsule n capsule 06-20 Abiel [facility] clopidogrel clopidogrel No [place] Unknown Unknown 75 mg 75 mg 06-20 ,Abiel tablet tablet Brandon gabapentin gabapentin No [place] Unknown Unknown 100 mg 100 mg 06-20 ,Abiel capsule capsule [place] glimepiride glimepiride No [place] Unknown Unknown 4 mg tablet 4 mg tablet 06-20 Abiel [facility] carvedilol carvedilol 2018-0 2018- No [place] Unknown Unknown 6.25 mg 6.25 mg 06-20 ,Abiel tablet tablet Brandon Saphris Saphris 2017- No [place] Unknown Unknown (black (black 06-20 ,Willian golden) 10 golden) 10 mg mg sublingual sublingual tablet tablet pantoprazol pantoprazol No [place] Unknown Unknown e 40 mg e 40 mg 06-20 ,Abiel tablet,lauryn tablet,lauryn Brandon yed release yed release raNITIdine raNITIdine No [place] Unknown Unknown 300 mg 300 mg 06-20 ,Abiel tablet tablet Brandon Calcium 500 Calcium 500 2017- No [place] Unknown Unknown With D 500 With D 500 06-20 Abiel [facility] mg (1,250 mg (1,250 Brandon mg)-400 mg)-400 unit tablet unit tablet Vitamin D3 Vitamin D3 2018- No [place] Unknown Unknown 1,000 unit 1,000 unit 01-01 Abiel [facility] capsule capsule Brandon atorvastati atorvastati 2017- No [place] Unknown Unknown n 80 mg n 80 mg 1 10- ,Abiel tablet tablet Brandon atorvastajudit atorvastati 2017-10 No [place] Unknown Unknown n 80 mg n 80 [...] 24 hour hour carvedilol carvedilol 2017-10- No [place] Unknown Unknown 6.25 mg 6.25 mg 07-02 ,Abiel tablet tablet Brandon Saphris Saphris 2018- No [place] Unknown Unknown (black (black 06-27 ,Willian golden) 10 golden) 10 mg mg sublingual sublingual tablet tablet Calcium 500 Calcium 500 2018- No [place] Unknown Unknown With D 500 With D 500 06-27 Abiel [facility] mg (1,250 mg (1,250 Brandon mg)-400 mg)-400 unit tablet unit tablet Topamax 50 Topamax 50 2017-10- No Kaitlynn Unknown Unknown mg tablet mg tablet 10-09 Geraldo [facility] Depakote ER Depakote ER No [place] Unknown Unknown 500 mg 500 mg 10-23 Willian [facility] tablet,exte tablet,exte nded nded release release diphenhydrA diphenhydrA No [place] Unknown Unknown MINE 25 mg MINE 25 mg 12-14 ,Abiel capsule capsule Brandon lithium lithium 2018- No [place] Unknown Unknown carbonate carbonate 11-29 Willian [facility] 300 mg 300 mg tablet tablet Colace 100 Colace 100 2017-10- No [place] Unknown Unknown mg capsule mg capsule 01-01 Abiel [facility] ipratropium ipratropium No [place] Unknown Unknown bromide bromide 02-19 Abiel [facility] 0.02 % 0.02 % Brandon solution solution for for inhalation inhalation albuterol albuterol No [place] Unknown Unknown sulfate 2.5 sulfate 2.5 02-19 Abiel [facility] mg/3 mL mg/3 mL Brandon (0.083 %) (0.083 %) solution solution for for nebulizatio nebulizatio n n predniSONE predniSONE 2018- No [place] Unknown Unknown 20 mg 20 mg 12-28 Abiel [facility] tablet tablet Brandon benzonatate benzonatate No [place] Unknown Unknown 100 mg 100 mg 12-28 Abiel [facility] capsule capsule Brandon doxycycline doxycycline 2018- No [place] Unknown Unknown hyclate 100 hyclate 100 12-28- [...] ,Deb tablet tablet carvedilol carvedilol 2017-10 No [place] Unknown Unknown 6.25 mg 6.25 mg ,Abiel [...]
--- OUTSIDE RECORDS SUMMARY | 2019-09-11 10:06 | XMS REPORT ---
:1960 Author Organization [facility] Team Providers Name Role Phone Unavailable Unavailable Unavailable Problems Condition Condition Condition Status Onset Resolution Last Treating Comments Name Details Category Date Date Treatment Clinician Date Pain frequent Pain Mgmt Resolve 2019-02-05 Becca pain d 06-20 10:30:00 (Andrés) 08:20: Walker 00 [id number] Cardio edema Cardiovasc Resolve 2018-08-16 Becca ular d 06-20 10:00:00 (Andrés) 08:20: Walker 00 [id number] Respiratory dyspnea Respirator Resolve 2019-02-05 Becca present y d 06-20 10:30:00 (Andrés) 08:20: Walker 00 [id number] Respiratory lung sounds Respirator Resolve 2019-02-05 Becca deficit y d 06-20 10:30:00 (Andrés) 08:20: Walker 00 [id number] Endo/Gage anti-coagul Endo/Gage Resolve 2018-07-31 Becca ation d 06-20 11:58:00 (Andrés) therapy 08:20: Walker 00 [id number] Integument skin Integument Active Becca integrity 06-20 (Andrés) risk 08:20: Walker [id number] Elimination urinary Eliminatio Resolve 2018-08-16 Becca incontinenc n d 06-20 10:00:00 (Andrés) e 08:20: Walker 00 [id number] Neuro confusion Neuro/Emot Active Becca present ion 06-20 (Andrés) 08:20: Walker 00 [id number] Neuro anxiety Neuro/Emot Active Becca present ion 06-20 (Andrés) 08:20: Walker 00 [id number] Neuro impaired Neuro/Emot Active Becca decision-ma ion 06-20 (Andrés) caty 08:20: Walker [id number] Activity ADL Activity Active Becca assistance 06-20 (Andrés) required 08:20: Walker 00 [id number] Safety cannot be Safety Active Becca left alone 06-20 (Andrés) 08:20: Walker 00 [id number] Safety fall risk Safety Resolve 2019-08-13 Becca factor d 06-20 10:55:00 (Andrés) present 08:20: Walker [id number] Safety risk for Safety Resolve 2019-08-13 Becca hospitaliza d 06-20 10:55:00 (Andrés) tion 08:20: Walker [id number] Medication oral med Meds Resolve 2018-07-31 Becca assistance d 06-20 11:58:00 (Andrés) required 08:20: Walker 00 [id number] Medication potential Meds Resolve 2018-07-31 Becca clinically d 06-20 11:58:00 (Andrés) significant 08:20: Walker medication 00 [id number] issue Musculoskel requires Musculoske Resolve 2019-06-13 Becca etal human letal d 06-20 13:00:00 (Andrés) assist to 08:20: Walker leave home 00 [id number] Musculoskel transfer Musculoske Resolve 2019-06-13 Becca etal assistance letal d 06-20 13:00:00 Guidelli required 08:20: [id number] 00 Respiratory oxygen Respirator Resolve 2019-02-05 Loreta treatments y d 06-26 10:30:00 Guy-Zos in home 10:28: h [id number] 00 Safety can be left Safety Active Loreta alone for 06-26 Guy-Zos only short 10:28: h [id number] periods 00 Elimination urinary Eliminatio Resolve 2017-102018-08-16 Loreta frequency n d 30 10:00:00 Guy-Zos 11:58: h [id number] 00 Neuro knowledge/s Neuro/Emot Active 2017-10 Loreta kill ion Guy-Zos deficit: cg 11:58: h [id number] 00 Endo/Gage anti-coagul Endo/Gage Resolve 2017-102019-01-29 Loreta ation d 1-15 12:45:00 Guy-Zos therapy 10:00: h [id number] 00 Neuro depressive Neuro/Emot Active 2017-10 Loreta feelings ion 1-15 Guy-Zos present 10:00: h [id number] 00 Medication oral med Meds Resolve 2017-102019-02-05 Loreta assistance d 1-15 10:30:00 Guadalupe-Zos required 10:00: h [id number] 00 Medication injectable Meds Resolve 2017-102019-02-05 Loreta med d 1-15 10:30:00 Gyu-Zos assistance 10:00: h [id number] required 00 Medication potential Meds Active 2017-10 Loreta clinically -15 Guy-Zos significant 10:00: h [id number] medication 00 issue Endo/Gage knowledge/s Endo/Gage Resolve [...] treatment y 12-25 Emily in home 09:30: [id number] 00 Endo/Gage glucose Endo/Gage Resolve 2019-01-29 Cherrise tolerance d - 12:45:00 [place] problem 09:30: [id number] 00 Nutrition knowledge/s Nutrition Resolve 2019-01-29 Cherrise kill d 3- 12:45:00 [place] deficit: pt 09:30: [id number] 00 Elimination urinary Eliminatio Resolve 2019-01-15 Cherrise incontinenc n d 12-25 11:25:00 [place] e 09:30: [id number] 00 Elimination urinary Eliminatio Resolve 2019-01-15 Cherrise urgency n d 12-25 11:25:00 Emily 09:30: [id number] 00 Endo/Gage insulin Endo/Gage Resolve 2019-02-05 Cherrise admn d 01-01 10:30:00 Emily dependence 09:55: [id number] 00 Endo/Gage glucose Endo/Gage Resolve 2019-02-05 Cherrise testing d 01-01 10:30:00 Emily dependence 09:55: [id number] 00 Elimination urinary Eliminatio Resolve 2019-01-15 Cherrise frequency n d 01-01 11:25:00 [place] 09:55: [id number] 00 Elimination recurring Eliminatio Resolve 2019-02-05 Cherrise UTI n d 01-01 10:30:00 [place] 09:55: [id number] 00 Respiratory knowledge/s Respirator Resolve 2019-01-08 Marlene [...] n 0-08 Nila e 09:15: [employer] 00 [id number] Elimination constipatio Eliminatio Active 2018-10 Marlene n [...] mg capsule capsule carvedilol carvedilol 2017- No [place] Unknown Unknown 6.25 mg 6.25 mg 06-20 Abiel U[facility] tablet tablet Brandon Vitamin D3 Vitamin D3 No [place] 2000 Unknown 2,000 unit 2,000 unit Sarah [facility] units capsule capsule dilTIAZem dilTIAZem 2017- No [place] Unknown Unknown 120 mg 120 mg 06-20 Abiel [place] tablet tablet Brandon Depakote Depakote No [place] 1-2 Unknown 500 mg 500 mg Sarah [facility] tablet,lauryn tablet,lauryn yed release yed release Colace 100 Colace 100 2017- No [place] Unknown Unknown mg capsule mg capsule 06-20 Abiel [facility] furosemide furosemide No [place] 20 mg Unknown 20 mg 20 mg Sarah [facility] tablet tablet gabapentin gabapentin 2017- No [place] Unknown Unknown 300 mg 300 mg 06-20 Abiel [facility] capsule Brandon glimepiride glimepiride No [place] 4 mg Unknown 4 mg tablet 4 mg tablet Sarah [facility] liraglutide liraglutide No [place] 1 Unknown 0.6 mg/0.1 0.6 mg/0.1 Sarah [facility] injecti mL (18 mg/3 mL (18 mg/3 on mL) mL) subcutaneou subcutaneou s pen s pen injector injector lisinopril lisinopril 2017- No [place] Unknown Unknown 20 mg 20 mg 06-20 Abiel [facility] tablet tablet Brandon Oyster Oyster No [place] 500 mg Unknown Shell Shell Sarah [facility] Calcium 500 Calcium 500 500 mg 500 mg calcium calcium (1,250 mg) (1,250 mg) tablet tablet multivitami multivitami 2017- No [place] Unknown Unknown n capsule n capsule [...] Sarah [facility] capsule capsule oxygen oxygen No [place] Unknown Unknown 06-20 Abiel [facility] clopidogrel clopidogrel 2017- No [place] Unknown Unknown 75 mg 75 mg 06-20 Abiel [facility] tablet tablet Brandon desvenlafax desvenlafax 2017- No [place] Unknown Unknown ine ine 06-20 Abiel [facility] succinate succinate Brandon ER 100 mg ER 100 mg tablet,exte tablet,exte nded nded release 24 release 24 hr hr diphenhydrA diphenhydrA 2017- No [place] Unknown Unknown MINE 25 mg MINE 25 mg 06-20 Abiel [facility] capsule capsule Brandon Depakote ER Depakote ER 2017- No [place] Unknown Unknown 500 mg 500 mg 06-20 Abiel [place] tablet,exte tablet,exte Brandon nded nded release release famotidine famotidine 2017- No [place] Unknown Unknown 40 mg 40 mg 06-20 ,Abiel tablet tablet Brandon gabapentin gabapentin 2017- No [place] Unknown Unknown 100 mg 100 mg 06-20 ,Abiel capsule capsule Brandon glimepiride glimepiride 2017- No [place] Unknown Unknown 4 mg tablet 4 mg tablet 06-20 Abiel [facility] Nystop Nystop No [place] Unknown Unknown 100,000 100,000 06-20 Abiel [facility] unit/gram unit/gram Brandon topical topical powder powder atorvastati atorvastati 2017- No [place] Unknown Unknown n 80 mg n 80 mg 06-20 ,Abiel tablet tablet Brandon carvedilol carvedilol 2017-10- No [place] Unknown Unknown 6.25 mg 6.25 mg 07-02 ,Abiel tablet tablet Brandon Colace 100 Colace 100 2017-10- No [place] Unknown Unknown mg capsule mg capsule 07-02 Abiel [facility] diphenhydrA diphenhydrA 2017-10- No [place] Unknown Unknown MINE 25 mg MINE 25 mg 12-14 ,Abiel capsule capsule Brandon Depakote ER Depakote ER 2017-10- No [place] Unknown Unknown 500 mg 500 mg 09-27 ,Abiel bahena,exte tablet,kelly Brandon nded nded release release Topamax 50 Topamax 50 2017- No [place] Unknown Unknown mg tablet mg tablet 06-27 ,Willian Saphris Saphris 2018- No [place] Unknown Unknown (black (black 06-27 ,Willian golden) 10 [place]) 10 mg mg sublingual sublingual tablet tablet pantoprazol pantoprazol 2017- No [place] Unknown Unknown e 40 mg e 40 mg 06-27 ,Abiel tablet,lauryn tablet,lauryn Brandon yed release yed release raNITIdine raNITIdine 2017- No [place] Unknown Unknown 300 mg 300 mg 06-27 ,Abiel tablet tablet Brandon Calcium 500 Calcium 500 2017- No [place] Unknown Unknown With D 500 With D 500 06-27 Abiel [facility] mg (1,250 mg (1,250 Brandon mg)-400 mg)-400 unit tablet unit tablet Vitamin D3 Vitamin D3 2018- No [place] Unknown Unknown 400 unit 400 unit 06-27 Abiel U[facility] capsule capsule Brandon Halltoza No [place] Unknown Unknown 2-Jeison 0.6 2-Jeison 0.6 06-27 Abiel [facility] mg/0.1 mL mg/0.1 mL Brandon (18 mg/3 (18 mg/3 mL) mL) subcutaneou subcutaneou s pen s pen injector injector atorvastati atorvastati 2017-10- No [place] Unknown Unknown n 80 mg n [...] tablet 10-09 ,Geraldo doxycycline doxycycline 2017-10- No [place] Unknown Unknown monohydrate monohydrate 10-15 Abiel [facility] 100 mg 100 mg Brandon capsule capsule lithium lithium 2017-10- No [place] Unknown Unknown carbonate carbonate 11-28 ,Willian 300 mg 300 mg tablet tablet Depakote ER Depakote ER 2017-10- No [place] Unknown Unknown 500 mg 500 mg 11-28 ,Willian tablet,exte tablet,exte nded nded release release sennosides sennosides 2017-10 No [place] Unknown Unknown 8.6 8.6 2- ,Abiel mg-docusate [...] mg tablet tablet diphenhydrA diphenhydrA 2018- No [place] Unknown Unknown MINE 25 mg MINE 25 mg 12-14 ,Abiel capsule capsule Brandon clindamycin clindamycin 2018- No [place] Unknown Unknown HCl 300 mg HCl 300 mg 12-25 ,Deb capsule capsule dilTIAZem dilTIAZem No [place] Unknown Unknown 120 mg 120 mg 06-20 ,Abiel tablet tablet Brandon gabapentin gabapentin 2018- No [place] Unknown Unknown 300 mg 300 mg 06-20 ,Abiel capsule capsule Brandon lisinopril lisinopril No [place] Unknown Unknown 20 mg 20 mg 06-20 ,Abiel tablet tablet Brandon multivitami multivitami No [place] Unknown Unknown n capsule n capsule 06-20 ,Abiel Taylor clopidogrel clopidogrel No [place] Unknown Unknown 75 mg 75 mg 06-20 ,Abiel tablet tablet Brandon gabapentin gabapentin No [place] Unknown Unknown 100 mg 100 mg 06-20 ,Abiel capsule capsule Brandon glimepiride glimepiride No [place] Unknown Unknown 4 mg tablet 4 mg tablet 06-20 ,Abiel Taylor carvedilol carvedilol 2017- No [place] Unknown Unknown 6.25 mg 6.25 mg 06-20 ,Abiel tablet tablet Brandon Saphris Saphris 2017- No [place] Unknown Unknown (black (black 06-20 ,Willian golden) 10 golden) 10 mg mg sublingual sublingual tablet tablet pantoprazol pantoprazol No [place] Unknown Unknown e 40 mg e 40 mg 06-20 ,Abiel tablet,lauryn tablet,lauryn Brandon yed release yed release raNITIdine raNITIdine No [place] Unknown Unknown 300 mg 300 mg 06-20 ,Abiel tablet tablet Brandon Calcium 500 Calcium 500 2017- No [place] Unknown Unknown With D 500 With D 500 06-20 ,Abiel mg (1,250 mg (1,250 Brandon mg)-400 mg)-400 unit tablet unit tablet Vitamin D3 Vitamin D3 2018- No [place] Unknown Unknown 1,000 unit 1,000 unit 01-01 ,Abiel capsule capsule Brandon atorvastati atorvastati 2017- No [place] Unknown Unknown n 80 mg n 80 mg 107-31 ,Abiel tablet tablet Brandon atorvastajudit atorvastati 2017-10 No [place] Unknown Unknown n 80 mg n [...] 24 hour hour carvedilol carvedilol 2017-10- No [place] Unknown Unknown 6.25 mg 6.25 mg 07-02 ,Abiel tablet tablet Brandon Saphris Saphris 2018- No [place] Unknown Unknown (black (black 06-27 09-12 ,Willian golden) 10 golden) 10 mg mg sublingual sublingual tablet tablet Calcium 500 Calcium 500 2018- No [place] Unknown Unknown With D 500 With D 500 06-27 ,Abiel mg (1,250 mg (1,250 Brandon mg)-400 mg)-400 unit tablet unit tablet Topamax 50 Topamax 50 2017-10- No Kaitlynn Unknown Unknown mg tablet mg tablet 10-09 ,Geraldo Depakote ER Depakote ER No [place] Unknown Unknown 500 mg 500 mg 10-23 Willian U[place] tablet,exte tablet,exte nded nded release release diphenhydrA diphenhydrA No [place] Unknown Unknown MINE 25 mg MINE 25 mg - ,Abiel capsule capsule Brandon lithium lithium 2018- No [place] Unknown Unknown carbonate carbonate 11-29 Willian [place] 300 mg 300 mg tablet tablet Colace 100 Colace 100 2017-10- No [place] Unknown Unknown mg capsule mg capsule - Abiel U[place] ipratropium ipratropium No [place] Unknown Unknown bromide bromide 02-19 Abiel [facility] 0.02 % 0.02 % Brandon solution solution for for inhalation inhalation albuterol albuterol No [place] Unknown Unknown sulfate 2.5 sulfate 2.5 02-19 Abiel [facility] mg/3 mL mg/3 mL Brandon (0.083 %) (0.083 %) solution solution for for nebulizatio nebulizatio n n predniSONE predniSONE 2018- No [place] Unknown Unknown 20 mg 20 mg 12-28 Abiel U[facility] tablet tablet Brandon benzonatate benzonatate No [place] Unknown Unknown 100 mg 100 mg 12-28 Abiel U[facility] capsule capsule Brandon doxycycline doxycycline 2018- No [place] Unknown Unknown hyclate 100 hyclate 100 12-28- Abiel U[place] mg capsule mg capsule Brandon Rexulti 0.5 Rexulti 0.5 2018- No [place] Unknown Unknown mg tablet mg tablet 01-15 Willian [facility] Rexulti 1 Rexulti 1 2018- No [place] Unknown Unknown mg tablet mg tablet 01-22 Willian [facility] LaMICtal 25 LaMICtal 25 2018- No [place] Unknown Unknown mg tablet mg tablet 01-16 Willian P[place]ON Vitamin D3 Vitamin D3 No [place] Unknown [...] MD,Deb tablet tablet carvedilol carvedilol 2017-10 No [place] Unknown Unknown 6.25 mg 6.25 mg 0- [...]
--- OUTSIDE RECORDS SUMMARY | 2019-09-11 10:06 | XMS REPORT ---
:1960 Author Organization [facility] Care Team Providers Name Role Phone Unavailable Unavailable Unavailable Problems Condition Condition Condition Status Onset Resolution Last Treating Comments Name Details Category Date Date Treatment Clinician Date Pain frequent Pain Mgmt Resolve 2019-02-05 Becca pain d 06-20 10:30:00 (Andrés) 08:20: Walker 00 [id number] Cardio edema Cardiovasc Resolve 2018-08-16 Becca ular d 06-20 10:00:00 (Andrés) 08:20: Walker 00 [id number] Respiratory dyspnea Respirator Resolve 2019-02-05 Becca present y d 06-20 10:30:00 (Andrés) 08:20: Walker 00 [id number] Respiratory lung sounds Respirator Resolve 2019-02-05 Becca deficit y d 06-20 10:30:00 (Andrés) 08:20: Walker 00 [id number] Endo/Gage anti-coagul Endo/Gage Resolve 2018-07-31 Becca ation d 06-20 11:58:00 (Andrés) therapy 08:20: Walker 00 [id number] Integument skin Integument Active Becca integrity 06-20 (Andrés) risk 08:20: Walker [id number] Elimination urinary Eliminatio Resolve 2018-08-16 Becca incontinenc n d 06-20 10:00:00 (Andrés) e 08:20: Walker 00 [id number] Neuro confusion Neuro/Emot Active Becca present ion 06-20 (Andrés) 08:20: Walker 00 [id number] Neuro anxiety Neuro/Emot Active Becca present ion 06-20 (Andrés) 08:20: Walker 00 [id number] Neuro impaired Neuro/Emot Active Becca decision-ma ion 06-20 (Andrés) caty 08:20: Walker [id number] Activity ADL Activity Active Becca assistance 06-20 (Andrés) required 08:20: Walker 00 [id number] Safety cannot be Safety Active Becca left alone 06-20 (Andrés) 08:20: Walker 00 [id number] Safety fall risk Safety Resolve 2019-08-13 Becca factor d 06-20 10:55:00 (Andrés) present 08:20: Walker [id number] Safety risk for Safety Resolve 2019-08-13 Becca hospitaliza d 06-20 10:55:00 (Andrés) tion 08:20: Walker [id number] Medication oral med Meds Resolve 2018-07-31 Becca assistance d 06-20 11:58:00 (Andrés) required 08:20: Walker 00 [id number] Medication potential Meds Resolve 2018-07-31 Becca clinically d 06-20 11:58:00 (Andrés) significant 08:20: Walker medication 00 [id number] issue Musculoskel requires Musculoske Resolve 2019-06-13 Becca etal human letal d 06-20 13:00:00 (Andrés) assist to 08:20: Walker leave home 00 [id number] Musculoskel transfer Musculoske Resolve 2019-06-13 Becca etal assistance letal d 06-20 13:00:00 [place] required 08:20: [id number] 00 Respiratory oxygen Respirator Resolve 2019-02-05 [place] treatments y d 06-26 10:30:00 [place] in home 10:28: h [id number] 00 Safety can be left Safety Active Loreta alone for 06-26 Guy-Zos only short 10:28: h [id number] periods 00 Elimination urinary Eliminatio Resolve 2017-102018-08-16 [place] frequency n d 30 10:00:00 [place]os 11:58: h [id number] 00 Neuro knowledge/s Neuro/Emot Active 2017-10 L[place] kill ion Guy-Zos deficit: cg 11:58: h [id number] 00 Endo/Gage anti-coagul Endo/Gage Resolve 2017-102019-01-29 [place] ation d 1-15 12:45:00 Guy-[facility] therapy 10:00: h [id number] 00 Neuro depressive Neuro/Emot Active 2017-10 [place] feelings ion 1-15 [facility] present 10:00: h [id number] 00 Medication oral med Meds Resolve 2017-102019-02-05 [place] assistance d 1-15 10:30:00 [place] required 10:00: h [id number] 00 Medication injectable Meds Resolve 2017-102019-02-05 [place] med d 1-15 10:30:00 [place] assistance 10:00: h [id number] required 00 Medication potential Meds Active 2017-10 L[place] clinically -15 Guy-[place]os significant 10:00: h [id number] medication 00 issue Endo/Gage knowledge/s Endo/Gage Resolve [...] treatment y 12-25 Emily in home 09:30: [id number] 00 Endo/Gage glucose Endo/Gage Resolve 2019-01-29 Cherrise tolerance d - 12:45:00 [place] problem 09:30: [id number] 00 Nutrition knowledge/s Nutrition Resolve 2019-01-29 Cherrise kill d 3- 12:45:00 [place] deficit: pt 09:30: [id number] 00 Elimination urinary Eliminatio Resolve 2019-01-15 Cher[place] incontinenc n d 12-25 11:25:00 [place] e 09:30: [id number] 00 Elimination urinary Eliminatio Resolve 2019-01-15 Cherrise urgency n d 12-25 11:25:00 Emily 09:30: [id number] 00 Endo/Gage insulin Endo/Gage Resolve 2019-02-05 Cherrise admn d 01-01 10:30:00 Emily dependence 09:55: [id number] 00 Endo/Gage glucose Endo/Gage Resolve 2019-02-05 Cherrise testing d 01-01 10:30:00 Emily dependence 09:55: [id number] 00 Elimination urinary Eliminatio Resolve 2019-01-15 Cher[place] frequency n d 01-01 11:25:00 [place] 09:55: [id number] 00 Elimination recurring Eliminatio Resolve 2019-02-05 Cherrise UTI n d 01-01 10:30:00 [place] 09:55: [id number] 00 Respiratory knowledge/s Respirator Resolve 2019-01-08 Marlene [...] n 0-08 Nila e 09:15: [employer] 00 [id number] Elimination constipatio Eliminatio Active 2018-10 Marlene n [...] sublingual sublingual tablet tablet aspirin, aspirin, No Corwe 325 mg Unknown buffered buffered Sarah [place] 325 mg 325 mg tablet tablet atorvastati atorvastati No Crowe 20 mg Unknown n 20 mg n 20 mg Sarah [place] tablet tablet Fiorinal-Co Fiorinal-Co No Crowe 2 caps Unknown deine #3 30 deine #3 30 ,Sarah mg-50 mg-50 mg-325 mg-325 mg-40 mg mg-40 mg capsule capsule carvedilol carvedilol 2017- No [place] Unknown Unknown 6.25 mg 6.25 mg 06-20 Abiel [place] tablet tablet Brandon Vitamin D3 Vitamin D3 No Crowe 2000 Unknown 2,000 unit 2,000 unit Sarah [place] units capsule capsule dilTIAZem dilTIAZem 2017- No [place] Unknown Unknown 120 mg 120 mg 06-20 Abiel [place] tablet tablet Brandon Depakote Depakote No [place]we 1-2 Unknown 500 mg 500 mg Sarah [place] tablet,lauryn tablet,lauryn yed release yed release Colace 100 Colace 100 2017- No [place] Unknown Unknown mg capsule mg capsule 06-20 Abiel [place] furosemide furosemide No [place]we 20 mg Unknown 20 mg 20 mg Sarah [place] tablet tablet gabapentin gabapentin 2017- No [place] Unknown Unknown 300 mg 300 mg 06-20 Abiel [place] capsule Brandon glimepiride glimepiride No [place]we 4 mg Unknown 4 mg tablet 4 mg tablet Sarah [place] liraglutide liraglutide No [place]we 1 Unknown 0.6 mg/0.1 0.6 mg/0.1 Sarah [place] injecti mL (18 mg/3 mL (18 mg/3 on mL) mL) subcutaneou subcutaneou s pen s pen injector injector lisinopril lisinopril 2017- No [place] Unknown Unknown 20 mg 20 mg 06-20 Abiel UPTNO tablet tablet Brandon Oyster Oyster No Crowe 500 mg Unknown Shell Shell Sarah [place] Calcium 500 Calcium 500 500 mg 500 mg calcium calcium (1,250 mg) (1,250 mg) tablet tablet multivitami multivitami 2017- No [place] Unknown Unknown n capsule n capsule 06-20 [...] Sarah [place] capsule capsule oxygen oxygen No [place] Unknown Unknown 06-20 Abiel [place] clopidogrel clopidogrel 2017- No [place] Unknown Unknown 75 mg 75 mg 06-20 Abiel [place] tablet tablet Brandon desvenlafax desvenlafax 2017- No [place] Unknown Unknown ine ine 06-20 Abiel [place] succinate succinate Brandon ER 100 mg ER 100 mg tablet,exte tablet,exte nded nded release 24 release 24 hr hr diphenhydrA diphenhydrA 2017- No [place] Unknown Unknown MINE 25 mg MINE 25 mg 06-20 Abiel [place] capsule capsule Brandon Depakote ER Depakote ER 2017- No [place] Unknown Unknown 500 mg 500 mg 06-20 Abiel [place] tablet,exte tablet,exte Brandon nded nded release release famotidine famotidine 2017- No [place] Unknown Unknown 40 mg 40 mg 06-20 ,Abiel tablet tablet Brandon gabapentin gabapentin 2017- No [place] Unknown Unknown 100 mg 100 mg 06-20 ,Abiel capsule capsule Brandon glimepiride glimepiride 2017- No [place] Unknown Unknown 4 mg tablet 4 mg tablet 06-20 Abiel [place] Nystop Nystop No [place] Unknown Unknown 100,000 100,000 06-20 Abiel [place] unit/gram unit/gram Brandon topical topical powder powder atorvastati atorvastati 2017- No [place] Unknown Unknown n 80 mg n 80 mg 06-20 ,Abiel tablet tablet Brandon carvedilol carvedilol 2017-10- No [place] Unknown Unknown 6.25 mg 6.25 mg 07-02 ,Abiel tablet tablet Brandon Colace 100 Colace 100 2017-10- No [place] Unknown Unknown mg capsule mg capsule 07-02 Abiel [place] diphenhydrA diphenhydrA 2017-10- No [place] Unknown Unknown MINE 25 mg MINE 25 mg 12-14 ,Abiel capsule capsule Brandon Depakote ER Depakote ER 2017-10- No [place] Unknown Unknown 500 mg 500 mg 09-27 ,Abiel bahena,exte tablet,kelly Brandon nded nded release release Topamax 50 Topamax 50 2017- No Kandy Unknown Unknown mg tablet mg tablet 06-27 ,Willian Saphris Saphris 2018- No K[place] Unknown Unknown (black (black 06-27 ,Willian golden) 10 [place]) 10 mg mg sublingual sublingual tablet tablet pantoprazol pantoprazol 2017- No [place] Unknown Unknown e 40 mg e 40 mg 06-27 ,Abiel tablet,lauryn tablet,lauryn Brandon yed release yed release raNITIdine raNITIdine 2017- No [place] Unknown Unknown 300 mg 300 mg 06-27 ,Abiel tablet tablet Brandon Calcium 500 Calcium 500 2017- No [place] Unknown Unknown With D 500 With D 500 06-27 Abiel [place] mg (1,250 mg (1,250 Brandon mg)-400 mg)-400 unit tablet unit tablet Vitamin D3 Vitamin D3 2018- No [place] Unknown Unknown 400 unit 400 unit 06-27 Abiel [place] capsule capsule Brandon Halltoza No [place] Unknown Unknown 2-Jeison 0.6 2-Jeison 0.6 06-27 Abiel [place] mg/0.1 mL mg/0.1 mL Brandon (18 mg/3 (18 mg/3 mL) mL) subcutaneou subcutaneou s pen s pen injector injector atorvastati atorvastati 2017-10- No [place] Unknown Unknown n 80 mg n 80 [...] tablet 10-09 ,Geraldo doxycycline doxycycline 2017-10- No [place] Unknown Unknown monohydrate monohydrate 10-15 Abiel [place] 100 mg 100 mg Brandon capsule capsule lithium lithium 2017-10- No Kandy Unknown Unknown carbonate carbonate 11-28 ,Willian 300 mg 300 mg tablet tablet Depakote ER Depakote ER 2017-10- No [place]andy Unknown Unknown 500 mg 500 mg 11-28 ,Willian tablet,exte tablet,exte nded nded release release sennosides sennosides 2017-10 No [place] Unknown Unknown 8.6 8.6 2- ,Abiel mg-docusate [...] mg tablet tablet diphenhydrA diphenhydrA 2018- No [place] Unknown Unknown MINE 25 mg MINE 25 mg 12-14 ,Abiel capsule capsule Brandon clindamycin clindamycin 2018- No [place] Unknown Unknown HCl 300 mg HCl 300 mg 12-25 ,Deb capsule capsule dilTIAZem dilTIAZem No [place] Unknown Unknown 120 mg 120 mg 06-20 ,Abiel tablet tablet Brandon gabapentin gabapentin 2018- No [place] Unknown Unknown 300 mg 300 mg 06-20 ,Abiel capsule capsule Brandon lisinopril lisinopril No [place] Unknown Unknown 20 mg 20 mg 06-20 ,Abiel tablet tablet Brandon multivitami multivitami No [place] Unknown Unknown n capsule n capsule 06-20 ,Abiel Taylor clopidogrel clopidogrel No [place] Unknown Unknown 75 mg 75 mg 06-20 ,Abiel tablet tablet Brandon gabapentin gabapentin No [place] Unknown Unknown 100 mg 100 mg 06-20 ,Abiel capsule capsule Brandon glimepiride glimepiride No [place] Unknown Unknown 4 mg tablet 4 mg tablet 06-20 ,Abiel Taylor carvedilol carvedilol 2017- No [place] Unknown Unknown 6.25 mg 6.25 mg 06-20 ,Abiel tablet tablet Brandon Saphris Saphris 2017- No Kandy Unknown Unknown (black (black 06-20 ,Willian golden) 10 golden) 10 mg mg sublingual sublingual tablet tablet pantoprazol pantoprazol No [place] Unknown Unknown e 40 mg e 40 mg 06-20 ,Abiel tablet,lauryn tablet,lauryn Brandon yed release yed release raNITIdine raNITIdine No [place] Unknown Unknown 300 mg 300 mg 06-20 ,Abiel tablet tablet Brandon Calcium 500 Calcium 500 2017- No [place] Unknown Unknown With D 500 With D 500 06-20 ,Abiel mg (1,250 mg (1,250 Brandon mg)-400 mg)-400 unit tablet unit tablet Vitamin D3 Vitamin D3 2018- No [place] Unknown Unknown 1,000 unit 1,000 unit 01-01 ,Abiel capsule capsule Brandon atorvastati atorvastati 2017- No [place] Unknown Unknown n 80 mg n 80 mg 107-31 ,Abiel tablet tablet Brandon atorvastajudit atorvastati 2017-10 No [place] Unknown Unknown n 80 mg n 80 [...] 24 hour hour carvedilol carvedilol 2017-10- No [place] Unknown Unknown 6.25 mg 6.25 mg 07-02 ,Abiel tablet tablet Brandon Saphris Saphris 2018- No K[place] Unknown Unknown (black (black 06-27 09-12 ,Willian golden) 10 golden) 10 mg mg sublingual sublingual tablet tablet Calcium 500 Calcium 500 2018- No [place] Unknown Unknown With D 500 With D 500 06-27 ,Abiel mg (1,250 mg (1,250 Brandon mg)-400 mg)-400 unit tablet unit tablet Topamax 50 Topamax 50 2017-10- No Kaitlynn Unknown Unknown mg tablet mg tablet 10-09 ,Geraldo Depakote ER Depakote ER No Kandy Unknown Unknown 500 mg 500 mg 10-23 Willian [place] tablet,exte tablet,exte nded nded release release diphenhydrA diphenhydrA No [place] Unknown Unknown MINE 25 mg MINE 25 mg - ,Abiel capsule capsule Brandon lithium lithium 2018- No Kandy Unknown Unknown carbonate carbonate 11-29 Willian [place] 300 mg 300 mg tablet tablet Colace 100 Colace 100 2017-10- No [place] Unknown Unknown mg capsule mg capsule - Abiel [place] ipratropium ipratropium No [place] Unknown Unknown bromide bromide 02-19 Abiel [place] 0.02 % 0.02 % Brandon solution solution for for inhalation inhalation albuterol albuterol No [place] Unknown Unknown sulfate 2.5 sulfate 2.5 02-19 Abiel [place] mg/3 mL mg/3 mL Brandon (0.083 %) (0.083 %) solution solution for for nebulizatio nebulizatio n n predniSONE predniSONE 2018- No [place] Unknown Unknown 20 mg 20 mg 12-28 Abiel [place] tablet tablet Brandon benzonatate benzonatate No [place] Unknown Unknown 100 mg 100 mg 12-28 Abiel [place] capsule capsule Branodn doxycycline doxycycline 2018- No [place] Unknown Unknown hyclate 100 hyclate 100 12-28- [...] MD,Deb tablet tablet carvedilol carvedilol 2017-10 No [place] Unknown Unknown 6.25 mg 6.25 mg 0- [...]
[2019-09-11 10:07] LABS: Albumin/Globulin Ratio 1.3 (1-3); BUN/Creatinine Ratio 19.8 (8-20); Calcium 8.9 mg/dL (8.6-10.3); EGFR African American 88.5 (>60); EGFR Non-African American 73.1 (>60); Potassium 4.4 mmol/L (3.5-5.0); Total Bilirubin 0.4 mg/dL (0.2-1.0)
--- OUTSIDE RECORDS SUMMARY | 2019-09-11 10:07 | XMS REPORT ---
:1960 Author Organization [facility] Care Team Providers Name Role Phone Unavailable Unavailable Unavailable Problems Condition Condition Condition Status Onset Resolution Last Treating Comments Name Details Category Date Date Treatment Clinician Date Pain frequent Pain Mgmt Resolve 2019-02-05 Becca pain d 06-20 10:30:00 (Andrés) 08:20: Walker 00 [id number] Cardio edema Cardiovasc Resolve 2018-08-16 Becca ular d 06-20 10:00:00 (Andrés) 08:20: Walker 00 [id number] Respiratory dyspnea Respirator Resolve 2019-02-05 Becca present y d 06-20 10:30:00 (Andrés) 08:20: Walker 00 [id number] Respiratory lung sounds Respirator Resolve 2019-02-05 Becca deficit y d 06-20 10:30:00 (Andrés) 08:20: Walker 00 [id number] Endo/Gage anti-coagul Endo/Gage Resolve 2018-07-31 Becca ation d 06-20 11:58:00 (Andrés) therapy 08:20: Walker 00 [id number] Integument skin Integument Active Becca integrity 06-20 (Andrés) risk 08:20: Walker [id number] Elimination urinary Eliminatio Resolve 2018-08-16 Becca incontinenc n d 06-20 10:00:00 (Andrés) e 08:20: Walker 00 [id number] Neuro confusion Neuro/Emot Active Becca present ion 06-20 (Andrés) 08:20: Walker 00 [id number] Neuro anxiety Neuro/Emot Active Becca present ion 06-20 (Andrés) 08:20: Walker 00 [id number] Neuro impaired Neuro/Emot Active Becca decision-ma ion 06-20 (Andrés) caty 08:20: Walker [id number] Activity ADL Activity Active Becca assistance 06-20 (Andrés) required 08:20: Walker [id number] Safety cannot be Safety Active Becca left alone 06-20 (Andrés) 08:20: Walker [id number] Safety fall risk Safety Active Becca factor 06-20 (Andrés) present 08:20: Walker [id number] Safety risk for Safety Active Becca hospitaliza 06-20 (Andrés) tion 08:20: Walker [id number] Medication oral med Meds Resolve 2018-07-31 Becca assistance d 06-20 11:58:00 (Andrés) required 08:20: Walker [id number] Medication potential Meds Resolve 2018-07-31 Becca clinically d 06-20 11:58:00 (Andrés) significant 08:20: Walker medication 00 [id number] issue Musculoskel requires Musculoske Resolve 2019-06-13 Becca etal human letal d 06-20 13:00:00 (Andrés) assist to 08:20: Walker leave home 00 [id number] Musculoskel transfer Musculoske Resolve 2019-06-13 Becca etal assistance letal d 06-20 13:00:00 Guidelli required 08:20: [id number] 00 Respiratory oxygen Respirator Resolve 2019-02-05 Loreta treatments y d 06-26 10:30:00 Guy-Zos in home 10:28: h [id number] Safety can be left Safety Active Loreta alone for 06-26 Guy-Zos only short 10:28: h [id number] periods 00 Elimination urinary Eliminatio Resolve 2017-102018-08-16 Loreta frequency n d 10:00:00 Guy-Zos 11:58: h [id number] Neuro knowledge/s Neuro/Emot Active 2017-10 Loreta kill ion Guy-Zos deficit: cg 11:58: h [id number] 00 Endo/Gage anti-coagul Endo/Gage Resolve 2017-102019-01-29 Loreta ation d 1-15 12:45:00 [place] therapy 10:00: h [id number] 00 Neuro depressive Neuro/Emot Active 2017-10 Loreta feelings ion 1-15 Guy-Zos present 10:00: h [id number] 00 Medication oral med Meds Resolve 2017-102019-02-05 Loreta assistance d 1-15 10:30:00 [place] required 10:00: h [id number] 00 Medication injectable Meds Resolve 2017-102019-02-05 Loreta med d 1-15 10:30:00 [place] assistance 10:00: h [id number] required 00 Medication potential Meds Active 2017-10 Loreta clinically -15 Guy-Zos significant 10:00: h [id number] medication 00 issue Endo/Gage knowledge/s Endo/Gage Resolve 2018-2019-01-08 Marlene kill d 1-16 15:40:00 Carrier RN deficit: pt 14:45: 00 Nutrition nutritional Nutrition Resolve 2019-01-29 Marlene restriction d 1-16 12:45:00 Carrier RN s 14:45: 00 Activity self-care Activity Resolve 2019-01-15 Marlene deficit d -16 11:25:00 Carrier RN 14:45: 00 Cardio hypertensio Cardiovasc Resolve 2019-01-29 Marlene n ular d 2-12 12:45:00 Carrier RN 10:00: 00 Neuro knowledge/s Neuro/Emot Active Marlene kill ion 3-13 Carrier RN deficit: pt 13:30: 00 Respiratory nebulizer Respirator Active [facility] - [place] in home 09:30: [id number] Endo/Gage glucose Endo/Gage Resolve 2019-01-29 Cherrise tolerance d - 12:45:00 [place] problem 09:30: [id number] Nutrition knowledge/s Nutrition Resolve 2019-01-29 Cherrise kill d - 12:45:00 [place] deficit: pt 09:30: [id number] 00 Elimination urinary Eliminatio Resolve 2019-01-15 Cherrise incontinenc n d 12-25 11:25:00 [place] e 09:30: [id number] 00 Elimination urinary Eliminatio Resolve 2019-01-15 Cherrise urgency n d 12-25 11:25:00 Emily 09:30: [id number] Endo/Gage insulin Endo/Gage Resolve 2019-02-05 Cher[facility] admn d 01-01 10:30:00 [place] dependence 09:55: [id number] 00 Endo/Gage glucose Endo/Gage Resolve 2019-02-05 Cherrise testing d 01-01 10:30:00 Emily dependence 09:55: [id number] 00 Elimination urinary Eliminatio Resolve 2019-01-15 [facility] frequency n d 01-01 11:25:00 [place] 09:55: [id number] 00 Elimination recurring Eliminatio Resolve 2019-02-05 Cherrise UTI n d 01-01 10:30:00 [place] 09:55: [id number] 00 Respiratory knowledge/s Respirator Resolve 2019-01-08 Marlene kill y d 01-08 15:40:00 Carrier RN deficit: cg 15:40: 00 Respiratory Incentive Respirator Resolve 2019-04-15 Marlene Spirometer y d 01-08 14:25:00 Carrier RN /Acapella 15:40: Device 00 treatments in home Safety knowledge/s Safety Active Marlene kill 01-08 Carrier RN deficit: cg 15:40: 00 Endo/Gage [...] injectable Meds Resolve 2019-04-15 Marlene med d 02-12 14:25:00 Carrier RN assistance 11:55: required 00 Medication oral med Meds Resolve 2019-04-15 Marlene assistance d 7-15 14:25:00 Carrier RN required 14:25: 00 Medication oral med Meds Active Marlene assistance 8-13 Carrier RN required 15:30: 00 Respiratory oxygen Respirator Active [facility] treatments y 06-04 [place] in home 11:00: RN 00 Respiratory lung sounds Respirator Active [facility]ra deficit y 06-04 [place] 11:00: RN 00 Endo/Gage anti-coagul Endo/Gage Resolve 2019-08-07 Terra ation d 06-04 12:10:00 [place] therapy 11:00: RN 00 Pain frequent Pain Mgmt Active Terra pain 06-13 [place] 13:00: RN 00 Nutrition changing Nutrition Active Terra weight/appe 06-13 [place] tite 13:00: RN 00 Elimination urinary Eliminatio Active 2018-10 Tiffani incontinenc n 0-08 Nila e 09:15: [facility] 00 [id number] Elimination constipatio Eliminatio Active 2018-10 Marlene n n 1-06 Carrier RN 12:10: 00 Allergies, Adverse Reactions, Alerts Allergy Name Allergy Status Severity Reaction(s) Onset Inactive Treating Comments Type Date Date Clinician morphine Base Active Unknown Reaction Barb Beam Ingredient Unknown 918 clavulanic Base Active Unknown Reaction Barb Beam acid Ingredient Unknown 918 nitrofuranto Base Active Unknown Reaction Barb Beam in Ingredient Unknown 918 meperidine Base Active Unknown Reaction Barb Beam Ingredient Unknown 918 Medications Ordered Filled Start Stop Current Ordering Indication Dosage Frequency Signature Comments Components Medication Medication Date Date Medication? Clinician (SIG) Name Name acetaminoph acetaminoph No Crowe 1 Unknown en 325 mg en 325 mg ,Adnan tablet capsule capsule Proventil Proventil No Crowe 2 puffs Unknown HFA 90 HFA 90 ,Adnan mcg/actuati mcg/actuati on aerosol on aerosol inhaler inhaler ALPRAZolam ALPRAZolam No Crowe 1 mg Unknown 1 mg tablet 1 mg tablet ,Adluis e asenapine asenapine No Crowe 10 mg Unknown 10 mg 10 mg ,Adnan sublingual sublingual tablet tablet aspirin, aspirin, No Crowe 325 mg Unknown buffered buffered ,Sarah 325 mg 325 mg tablet tablet atorvastati atorvastati No Crowe 20 mg Unknown n 20 mg n 20 mg Sarah [facility] tablet tablet Fiorinal-Co Fiorinal-Co No Crowe 2 caps Unknown deine #3 30 deine #3 30 ,Sarah mg-50 mg-50 mg-325 mg-325 mg-40 mg mg-40 mg capsule capsule carvedilol carvedilol 2017- No [place] Unknown Unknown 6.25 mg 6.25 mg 06-20 Abiel [facility] tablet tablet Brandon Vitamin D3 Vitamin D3 No Crowe 2000 Unknown 2,000 unit 2,000 unit Sarah [facility] units capsule capsule dilTIAZem dilTIAZem 2017- No [place] Unknown Unknown 120 mg 120 mg 06-20 Abiel [facility] tablet tablet Brandon Depakote Depakote No Crowe 1-2 Unknown 500 mg 500 mg Sarah [facility] tablet,lauryn tablet,lauryn yed release yed release Colace 100 Colace 100 2017- No [place] Unknown Unknown mg capsule mg capsule 06-20 Abiel [facility] furosemide furosemide No Crowe 20 mg Unknown 20 mg 20 mg Sarah [facility] tablet tablet gabapentin gabapentin 2017- No [place] Unknown Unknown 300 mg 300 mg 06-20 Abiel [facility] capsule capsule Brandon glimepiride glimepiride No Crowe 4 mg Unknown 4 mg tablet 4 mg tablet Sarah [facility] liraglutide liraglutide No Crowe 1 Unknown 0.6 mg/0.1 0.6 mg/0.1 Sarah [facility] injecti mL (18 mg/3 mL (18 mg/3 on mL) mL) subcutaneou subcutaneou s pen s pen injector injector lisinopril lisinopril 2017- No [place] Unknown Unknown 20 mg 20 mg 06-20 Abiel [facility] tablet tablet Brandon Oyster Oyster No Crowe 500 mg Unknown Shell Shell Sarah [facility] Calcium 500 Calcium 500 500 mg 500 mg calcium calcium (1,250 mg) (1,250 mg) tablet tablet multivitami multivitami 2017- No [place] Unknown Unknown n capsule n capsule 06-20 Abiel [facility] nystatin nystatin No Crowe topical Unknown 100,000 100,000 Sarah [facility] unit/gram unit/gram topical topical cream cream ondansetron ondansetron No Crowe 4 mg Unknown 4 mg 4 mg ,Sarah disintegrat disintegrat ing tablet ing tablet PARoxetine PARoxetine No Crowe 20 mg Unknown 20 mg 20 mg ,Sarah tablet tablet Klor-Con Klor-Con No Crowe 20 meq Unknown M20 mEq M20 mEq ,Sarah tablet,exte tablet,exte nded nded release release raNITIdine raNITIdine No Crowe 150 mg Unknown 150 mg 150 mg ,Sarah capsule capsule oxygen oxygen No [place] Unknown Unknown 06-20 Abiel [facility] clopidogrel clopidogrel 2017- No [place] Unknown Unknown 75 mg 75 mg 06-20 Abiel [facility] tablet tablet Brandon desvenlafax desvenlafax 2017- No [place] Unknown Unknown ine ine 06-20 Abiel [facility] succinate succinate Brandon ER 100 mg ER 100 mg tablet,exte tablet,exte nded nded release 24 release 24 hr hr diphenhydrA diphenhydrA 2017- No [place] Unknown Unknown MINE 25 mg MINE 25 mg 06-20 ,Abiel capsule capsule Brandon Depakote ER Depakote ER 2017- No [place] Unknown Unknown 500 mg 500 mg 06-20 Abiel [facility] tablet,exte tablet,exte Brandon nded nded release release famotidine famotidine 2017- No [place] Unknown Unknown 40 mg 40 mg 06-20 Abiel [facility] tablet tablet Brandon gabapentin gabapentin 2017- No [place] Unknown Unknown 100 mg 100 mg 06-20 Abiel [facility] capsule capsule Brandon glimepiride glimepiride 2017- No [place] Unknown Unknown 4 mg tablet 4 mg tablet 06-20 Abiel [facility] Nystop Nystop No [place] Unknown Unknown 100,000 100,000 06-20 Abiel [facility] unit/gram unit/gram Brandon topical topical powder powder atorvastati atorvastati 2017- No [place] Unknown Unknown n 80 mg n 80 mg 06-20 ,Abiel tablet tablet Brandon carvedilol carvedilol 2017-10- No [place] Unknown Unknown 6.25 mg 6.25 mg 07-02 ,Abiel tablet tablet Brandon Colace 100 Colace 100 2017-10- No [place] Unknown Unknown mg capsule mg capsule 07-02 Abiel [facility] diphenhydrA diphenhydrA 2017-10- No [place] Unknown Unknown MINE 25 mg MINE 25 mg 12-14 Abiel [facility] capsule capsule Brandon Depakote ER Depakote ER 2017-10- No [place] Unknown Unknown 500 mg 500 mg 09-27 ,Abiel tablet,exte tablet,exte Brandon nded nded release release Topamax 50 Topamax 50 2017- No Kandy Unknown Unknown mg tablet mg tablet 06-27 Willian [facility] Saphris Saphris 2017- No Kandy Unknown Unknown (black (black 06-27 ,Willian golden) 10 golden) 10 mg mg sublingual sublingual tablet tablet pantoprazol pantoprazol 2017- No [place] Unknown Unknown e 40 mg e 40 mg 06-27 Abiel [facility] tablet,lauryn tablet,lauryn Brandon yed release yed release raNITIdine raNITIdine 2017- No [place] Unknown Unknown 300 mg 300 mg 06-27 Abiel [facility] tablet tablet Brandon Calcium 500 Calcium 500 2017- No [place] Unknown Unknown With D 500 With D 500 06-27 Abiel [facility] mg (1,250 mg (1,250 Brandon mg)-400 mg)-400 unit tablet unit tablet Vitamin D3 Vitamin D3 2018- No [place] Unknown Unknown 400 unit 400 unit 06-27 Abiel [facility] capsule capsule Brandon Victoza Victoza No [place] Unknown Unknown 2-Jeison 0.6 2-Jeison 0.6 06-27 Abiel [facility] mg/0.1 mL mg/0.1 mL Brandon (18 mg/3 (18 mg/3 mL) mL) subcutaneou subcutaneou s pen s pen injector injector atorvastati atorvastati 2017-10- No [place] Unknown Unknown n 80 mg n 80 mg 0-30 10-30 ,Abiel tablet tablet Brandon Wellbutrin Wellbutrin 2017-10- No Kandy Unknown Unknown XL 150 mg XL 150 mg 08-08 MD,Willian 24 hr 24 hr tablet, tablet, extended extended release release desvenlafax desvenlafax 2017-10- No Kandy Unknown Unknown ine ER 100 ine ER 100 0-30 10-30 MD,Willian mg mg tablet,exte tablet,exte nded nded release 24 release 24 hour hour desvenlafax desvenlafax 2017-10- No Kandy Unknown Unknown ine ER 50 ine ER 50 0-30 10-30 MD,Willian mg mg tablet,exte tablet,exte nded nded release 24 release 24 hour hour buPROPion buPROPion 2017-10- No Kandy Unknown Unknown HCl XL 300 HCl XL 300 10-08 ,Willian mg 24 hr mg 24 hr tablet, tablet, extended extended release release Topamax 50 Topamax 50 2017-10- No Kaitlynn Unknown Unknown mg tablet mg tablet 10-09 ,Geraldo doxycycline doxycycline 2017-10- No [place] Unknown Unknown monohydrate monohydrate 10-15 ,Abiel 100 mg 100 mg Brandon capsule capsule lithium lithium 2017-10- No Kandy Unknown Unknown carbonate carbonate 11-28 ,Willian 300 mg 300 mg tablet tablet Depakote ER Depakote ER 2017-10- No Kandy Unknown Unknown 500 mg 500 mg 11-28 ,Willian tablet,exte tablet,exte nded nded release release sennosides sennosides 2017-10 No [place] Unknown Unknown 8.6 8.6 11-28 ,Abiel mg-docusate mg-docusate Brandon sodium 50 sodium [...] mg tablet tablet diphenhydrA diphenhydrA 2018- No [place] Unknown Unknown MINE 25 mg MINE 25 mg 12-14 ,Abiel capsule capsule Brandon clindamycin clindamycin 2018- No Pate Unknown Unknown HCl 300 mg HCl 300 mg 12-25 ,Deb capsule capsule dilTIAZem dilTIAZem No [place] Unknown Unknown 120 mg 120 mg 06-20 ,Abiel tablet tablet Brandon gabapentin gabapentin 2018- No [place] Unknown Unknown 300 mg 300 mg 06-20 ,Abiel capsule capsule Brandon lisinopril lisinopril No [place] Unknown Unknown 20 mg 20 mg 06-20 ,Abiel tablet tablet Brandon multivitami multivitami No [place] Unknown Unknown n capsule n capsule 06-20 Abiel [facility] clopidogrel clopidogrel No [place] Unknown Unknown 75 mg 75 mg 06-20 ,Abiel tablet tablet Brandon gabapentin gabapentin No [place] Unknown Unknown 100 mg 100 mg 06-20 ,Abiel capsule capsule Brandon glimepiride glimepiride No [place] Unknown Unknown 4 mg tablet 4 mg tablet 06-20 Abiel [facility] carvedilol carvedilol 2017- No [place] Unknown Unknown 6.25 mg 6.25 mg 06-20 ,Abiel tablet tablet Brandon Saphris Saphris 2018- No Kandy Unknown Unknown (black (black 06-20 ,Willian golden) 10 chico) 10 mg mg sublingual sublingual tablet tablet pantoprazol pantoprazol No [place] Unknown Unknown e 40 mg e 40 mg 06-20 ,Abiel tablet,lauryn tablet,lauryn Brandon yed release yed release raNITIdine raNITIdine No [place] Unknown Unknown 300 mg 300 mg 06-20 ,Abiel tablet tablet Brandon Calcium 500 Calcium 500 2017- No [place] Unknown Unknown With D 500 With D 500 06-20 Abiel [facility] mg (1,250 mg (1,250 Brandon mg)-400 mg)-400 unit tablet unit tablet Vitamin D3 Vitamin D3 2018- No [place] Unknown Unknown 1,000 unit 1,000 unit 01-01 ,Abiel capsule capsule Brandon atorvastati atorvastati 2017- No [place] Unknown Unknown n 80 mg n 80 mg 10-31 ,Abiel tablet tablet Brandon atorvastati atorvastati 2017-10 No [place] Unknown Unknown n 80 mg n 80 mg 0- ,Abiel tablet tablet Brandon desvenlafax desvenlafax 2017-10 No Kandy Unknown Unknown ine ER 100 ine ER 100 0-30 MD,Willian mg mg tablet,exte tablet,exte nded nded release 24 release 24 hour hour desvenlafax desvenlafax 2017-10 No Kandy Unknown Unknown ine ER 50 ine ER 50 0-30 MD,Willian mg mg tablet,exte tablet,exte nded nded release 24 release 24 hour hour carvedilol carvedilol 2017-10- No [place] Unknown Unknown 6.25 mg 6.25 mg 007-02 ,Abiel tablet tablet Brandon Saphris Saphris 2018- No Kandy Unknown Unknown (black (black 06-27- ,Willian golden) 10 golden) 10 mg mg sublingual sublingual tablet tablet Calcium 500 Calcium 500 2018- No [place] Unknown Unknown With D 500 With D 500 06-27 Abiel [facility] (1,250 mg (1,250 Brandon mg)-400 mg)-400 unit tablet unit tablet Topamax 50 Topamax 50 2017-10- No Kaitlynn Unknown Unknown mg tablet mg tablet 10-09 Geraldo [facility] Depakote ER Depakote ER No Kandy Unknown Unknown 500 mg 500 mg 10-23 ,Willian tablet,exte tablet,exte nded nded release release diphenhydrA diphenhydrA No [place] Unknown Unknown MINE 25 mg MINE 25 mg 12-14 ,Abiel capsule capsule Brandon lithium lithium 2018- No Kandy Unknown Unknown carbonate carbonate 11-29 ,Willian 300 mg 300 mg tablet tablet Colace 100 Colace 100 2017-10- No [place] Unknown Unknown mg capsule mg capsule 0- Abiel [facility] ipratropium ipratropium No [place] Unknown Unknown bromide bromide 02-19 Abiel [facility] 0.02 % 0.02 % Brandon solution solution for for inhalation inhalation albuterol albuterol No [place] Unknown Unknown sulfate 2.5 sulfate 2.5 02-19 Abiel [facility] mg/3 mL mg/3 mL Brandon (0.083 %) (0.083 %) solution solution for for nebulizatio nebulizatio n n predniSONE predniSONE 2018- No [place] Unknown Unknown 20 mg 20 mg 12-28 ,Abiel tablet tablet Brandon benzonatate benzonatate No [place] Unknown Unknown 100 mg 100 mg 12-28 ,Abiel capsule capsule Brandon doxycycline doxycycline 2018- No [place] Unknown Unknown hyclate 100 hyclate 100 12-28 ,Abiel mg capsule mg capsule Brandon Rexulti 0.5 Rexulti 0.5 2018- No Kandy Unknown Unknown mg tablet mg tablet 01-15 Willian [facility] Rexulti 1 Rexulti 1 2018- No Kandy Unknown Unknown mg tablet mg tablet 01-22 Willian [facility] LaMICtal 25 LaMICtal 2018- No Kandy Unknown Unknown mg tablet mg tablet 01-16 Willian [facility] Vitamin D3 Vitamin D3 No Pate Unknown Unknown 2,000 unit 2,000 unit 01-01 MD,Deb tablet tablet Colace 100 Colace 100 No Pate Unknown Unknown mg capsule mg capsule 01-01 MD,Deb calcium calcium No Pate Unknown Unknown 500 mg 500 mg 01-01 MD,Deb LaMICtal 25 LaMICtal 2018- No Kandy Unknown Unknown mg tablet mg tablet 01-29 ,Willian LaMICtal 25 LaMICtal 25 2018- No Kandy Unknown Unknown mg tablet mg tablet 01-29 ,Willian Invokana Invokana 2018- No P[place] Unknown Unknown 100 mg 100 mg 02-20 MD,Deb tablet tablet Diflucan Diflucan No P[place] Unknown Unknown 150 mg 150 mg 02-20 MD,Deb tablet tablet LaMICtal 25 LaMICtal No Kandy Unknown Unknown mg tablet mg tablet 03-05 Willian [facility] Topamax 50 Topamax 50 2018- No Kaitlynn Unknown Unknown mg tablet mg tablet 02-26 Geraldo [facility] gabapentin gabapentin No Kandy Unknown Unknown 600 mg 600 mg 03-05 ,Willian tablet tablet Topamax 50 Topamax 50 2018- No Kaitlynn Unknown Unknown mg tablet mg tablet 02-26 Geraldo [facility] Topamax 50 Topamax 50 2018- No Kaitlynn Unknown Unknown mg tablet mg tablet 04-09 Geraldo [facility] Topamax 50 Topamax 50 2018- Yes Kaitlynn Unknown Unknown mg tablet mg tablet 05-21 ,Geraldo Rexulti 2 Rexulti 2 2018- Yes Kandy Unknown Unknown mg tablet mg tablet 05-31 Willian [facility] Lantus 2018-10 Yes Pate Unknown Unknown Solostar Solostar 0- ,Deb U-100 U-100 Insulin 100 Insulin 100 unit/mL (3 unit/mL (3 mL) mL) subcutaneou subcutaneou s pen s pen Topamax 50 Topamax 50 2018-10 Yes Kaitlynn Unknown Unknown mg tablet mg tablet 0- ,Geraldo Saphris 5 Saphris 5 2018-10 Yes Kandy Unknown Unknown mg mg 0- Willian [facility] sublingual sublingual tablet tablet Rexulti 2 Rexulti 2 2018- Yes Kandy Unknown Unknown mg tablet mg tablet 05-31 Willian [facility] Invokana Invokana No Pate Unknown Unknown 100 mg 100 mg 02-20 ,Deb tablet tablet carvedilol carvedilol 2017-10 No [place] Unknown Unknown 6.25 mg 6.25 mg 0- ,Abiel tablet tablet Brandon Latuda 20 Latuda 20 2018-10- Yes Kandy Unknown Unknown mg tablet mg tablet 10-02 Willian [facility] Latuda 40 Latuda 40 2018-10 Yes Kandy Unknown Unknown mg tablet mg tablet 10-09 Willian [facility] Vital Signs Vital Name Observation Time Observation Value Comments SYSTOLIC mm[Hg] 2019-08-13 18:08:49 128 mm[Hg] mm[Hg] Method: Sit SYSTOLIC mm[Hg] 2019-06-13 18:07:48 142 mm[Hg] mm[Hg] Method: Stand DIASTOLIC mm[Hg] 2019-08-13 18:08:49 78 mm[Hg] mm[Hg] Method: Sit DIASTOLIC mm[Hg] 2019-06-13 18:07:48 72 mm[Hg] mm[Hg] Method: Stand PULSE 2019-08-13 18:08:49 80 /min /min RESP RATE 2019-08-13 18:08:49 16 /min /min TEMP 2019-08-13 18:08:49 97.8 [degF] Procedures This patient has no known procedures. Results This patient has no known results.
--- OUTSIDE RECORDS SUMMARY | 2019-09-11 10:07 | XMS REPORT | Continuity of Care Document ---
:1960 External Reference #:[id number] Author Name Geraldo Calderón MD (transmitted by agent of provider Jeni [place]) Address [address] [facility], [place] [address] Care Team Providers Name Role Phone Mehran Combs MD - Internal Care Team Information [employer] [phone] Medicine Alex Vo MD - Endocrinology, Care Team Information [employer] [phone] Diabetes & Metabolism Vic Maddox NP - Family Care Team Information [employer] [phone] Boris Shaw MD - Care Team Information [employer] [phone] Otolaryngology Ashwin Michael MD - Obstetrics & Care Team Information [employer] Gynecology Deb Pate M.D. - Family Medicine Care Team Information [employer] Problems Active Problems Provider Date [place] disease Ang Zelaya M.D.,FACP Onset: 12/04/2015 Sleep apnea Geraldo Calderón MD Onset: 05/24/2016 Type 2 diabetes mellitus Annette Sin, N.P. Onset: 08/01/2012 Persistent microalbuminuria associated Ang Zelaya M.D.,FACP Onset: with type II diabetes mellitus Essential hypertension Annette Sin, N.P. Onset: 08/01/2012 Hyperlipidemia Annette Sin N.P. Onset: 08/01/2012 Transient cerebral ischemia Annette Sin N.P. Onset: 08/01/2012 Gastroesophageal reflux disease Jessica Calderón MD Onset: 12/15/2014 Mixed bipolar affective disorder, Annette Sin, N.P. Onset: 2012 moderate Ex-smoker Ang Zelaya M.D.,FACP Onset: 05/03/2013 Note: COPD suspect, PFTs inconclusive Benign neoplasm of adrenal gland Ang Zelaya M.D.,FACP Onset: 2013 Morbid obesity Jessica Calderón MD Onset: 09/19/2014 Displacement of lumbar intervertebral Ang Zelaya M.D.,FACP Onset: disc without myelopathy Cerebral artery occlusion Geraldo Calderón MD Onset: 05/24/2016 Abnormal involuntary movement Geraldo Calderón MD Onset: 09/22/2016 Aphasia as late effect of Geraldo Calderón MD Onset: 01/23/2017 cerebrovascular accident Emphysema, unspecified Jessica Calderón MD Onset: 04/24/2017 Epilepsy characterized by intractable Geraldo Calderón MD Onset: 09/15/2017 complex partial seizures Refractory migraine with aura Ang Zelaya M.D.,FACP Onset: 06/01/2018 Acidosis Willis Patton MD Onset: 05/21/2018 Bipolar disorder Geraldo Calderón MD Onset: 06/07/2018 Migraine with typical aura Geraldo Calderón MD Onset: 06/07/2018 Refractory migraine without aura Geraldo Calderón MD Onset: 08/08/2018 Arthralgia of the pelvic region and Ruth Gonzalez M.D. Onset: 04/12/2019 thigh Trochanteric bursitis Ruth Gonzalez M.D. Onset: 04/12/2019 Social History Type Date Description Comments Sex Unknown Tobacco Use Start: Unknown End: Former Cigarette Smoker Unknown Smoking Status Reviewed: 08/07/19 Former Cigarette Smoker ETOH Use 02/09/2018 Denies alcohol use Tobacco Use Start: Unknown End: Patient is a former stopped 2004 Unknown smoker Recreational Drug Use Denies Drug Use Exercise Type/Frequency Does not exercise Allergies, Adverse Reactions, Alerts Active Allergies Reaction Severity Comments Date Demerol bad headache 08/01/2012 Macrobid Urticaria 11/12/2014 Bydureon hives, injection site reaction 04/06/2015 Metformin diarrhea 09/02/2015 Clavulanic Acid diarrhea/vomiting 11/09/2017 Keppra suicidal ideation suicidal ideation 11/13/2017 Medications Active Medications SIG Qnty Indications Ordering Date Provider Ajovy inject once a 1.500ml G43.019 Geraldo Calderón, 08/07/2019 225mg/1.5ML month MD Powers Prefill Syringe Transport Chair use daily for 1units J44.9 Deb Pate MD 07/23/2019 Misc transport I67.5 M62.81 Lantus Solostar 10 U SC at bedtime 3ml E11.9 Deb Pate MD 07/12/2019 100Unit/ML Solution Pen-Inject Tab-A-Kenyetta Take One Tablet By 100tabs Deb Pate MD 07/10/2019 Tablets Mouth Once Daily Fioricet 1 by mouth for bad 5caps Geraldo Calderón MD 06/14/2019 50-300-40mg headache, every 8 Capsules hours; may use twice a week Senna Laxative 1 tablets once 30tabs Deb Pate MD 04/11/2019 25mg Tablets daily as needed Premarin use twice weekly as 90gm N95.2 Deb Pate MD 04/10/2019 0.625mg/GM Cream directed Atorvastatin Calcium 1 by mouth every 90tabs Deb Pate MD 02/27/2019 80mg day Tablets Invokana 1 by mouth every 90tabs Deb Pate MD 02/18/2019 100mg Tablets day Fluconazole 1 tab by mouth x 1, 2tabs E11.9 Deb Pate MD 02/07/2019 150mg Tablets may repeat after 2 days if not better (for vaginal yeast infection) Benzonatate take one tablet by 90caps J01.90 Deb Pate MD 12/28/2018 100mg Capsules mouth up to 3 times a day for cough. Vitamin D-1000 Maximum take one 90tabs Deb Pate MD 12/26/2018 Strength capsule/tablet 1000Unit Tablets daily by mouth Nystatin apply to groin 1units B35.6 Deb Pate MD 10/10/2018 Powder 3-4x/day Topiramate 1 tab by mouth at 90tabs Raf Rogers, 08/08/2018 50mg Tablets night M.Ethan Panchal take 2 tabs at 120caps Deb Pate MD 06/28/2018 25mg Capsules bedtime as needed Commode Bedside large wide commode 1units I25.10 Ang Long 06/21/2018 Misc to be used daily Omer Zelaya,FACP J44.9 Shingrix 0.5 milliliters 2units Ang Long 06/01/2018 50mcg intramuscular now and Omer Zelaya,FACP Suspension Rec 2-3 months later repeat Plavix 1 by mouth every day 30tabs Deb Pate MD 03/01/2018 75mg Tablets Ipratropium [place] 1 vial in nebulizer 62.500ml Ang Long 02/04/2018 four times a day Omer Zelaya,FACP 0.02% Solution Hoveround PMD/Power use daily as directed 1units I50.41 Ang Long 01/05 Mobility Device Omer Zelaya,FACP I67.5 J44.9 Protonix 1 by mouth every 90tabs K31.1 Deb Pate MD 10/09/[address] Hauser Take One Tablet By 90tabs E11.21 Abigail Carrera, 12/09/2015 4mg Tablets Mouth Once Daily M.D. Oxygen please use O2 at Ang Long 12/08/2015 2Liters Misc 2l/min Omer Zelaya,FACP Carvedilol Take One Tablet By 180tabs I10 Deb Pate MD 12/08/2015 6.25mg Mouth Two Times Tablets Daily Victoza inject 1.8 mg under 9ml E11.21 Aixa Shine, 06/12/2015 18mg/3ML the skin daily M.D. Solution Pen-Inject after dinner Diltiazem CD take one capsule by 90caps I10 Deb Pate MD 04/06/2015 120mg Caps mouth once daily ER 24HR Ranitidine HCL take 1 tablet by 90caps K31.1 Deb Pate MD 12/15/2014 300mg mouth at bedtime Capsules Freestyle Lite twice daily and as 100units Deb aPte MD 08/14/2014 Lancets directed DX E11.9 Misc Freestyle Lite Test test blood sugar up 100units E11.9 Deb Pate MD to 1 to 2 times a Strip day Oyster Shell Calcium take one tablet by 90tabs Z01.818 Deb Pate MD 06/2014 mouth daily 500mg Tablets Freestyle Lite Blood check fingerstick 1units Vic Maddox NP 03/19/2013 Glucose Monitoring daily System Device Proventil HFA inhale 2 puffs by 8.5units Ang Long 01/16/2013 mouth four times Omer Zelaya,FACP 108(90Base) mcg/Act daily as needed Aerosol Albuterol Sulfate 1 vial via 200units Ang Long 12/17/2012 nebulizer q4 as Omer Zelaya,FACP (2.5mg/3ML) 0.083% needed Nebulizer Latuda everyday Unknown 20mg Tablets Gabapentin take one tablet by Unknown 600mg mouth at bed time Tablets Rexulti Unknown 2mg Tablets Lamotrigine 2 in am - 50 mg Unknown 25mg total Tablets Ondansetron HCL Take One Tablet By 30tabs Abigail Carrera, 4mg Mouth Every Six M.D. Tablets Hours as Needed For Nausea Gabapentin one cap PO tid Unknown 100mg Capsules Pristiq take 1 1/2 tablet Unknown 100mg Tablets by mouth every ER 24HR morning Depakote 1 tab po bid F31.[address] Arias one tab by mouth 180caps Deb Pate MD 100mg Capsules twice daily Lisinopril 1 by mouth every I10 Unknown 20mg Tablets day Saphris 1 tab sl qhs F31.32 Unknown 5mg Tablets Sub Multivitamins 1 by mouth every 100caps Z01.818 Deb Pate MD Capsules day History Medications Doxycycline Hyclate 1 by mouth 20tabs J06.9 Deb Pate MD 07/12/2019 - twice a day x 07/25/[address] 10 days Diazepam take one tablet 10tabs S33.5xxA Deb Pate MD 02/18/2019 - 5mg Tablets by mouth every 02/18/2019 8 hours as needed for muscle spasm Diazepam take one half 5tabs Deb Pate MD 02/18/2019 - 10mg Tablets tab every 8 05/02/2019 hours as needed for muscle spasm Jardiance one po daily 30tabs E11.9 Deb Pate MD 02/07/2019 - 25mg 02/17/2019 Tablets Medications Administered in Office Medication SIG Qnty Indications Ordering Provider Date Depomedrol 40MG Ruth Gonzalez M.D. 04/12/2019 Injection Toradol Injection 15MG Deb Pate MD 02/18/2019 Injection Inj, Regadenoson, 0.1 MG Perez Rangel M.D., 05/07/2015 Injection FACC, FASNC Inj, Regadenoson, 0.1 MG Yuriy Jose, DO [facility] 05/07/2015 Injection Technetium TC 99M Perez Rangel M.D., 05/07/2015 Tetrofosmin, Per Unit Dose FACC, FASKHOA Up To 40 Millicuries Injection Technetium TC 99M Yuriy Jose, DO FAC 05/07/2015 Tetrofosmin, Per Unit Dose Up To 40 Millicuries Injection PPD Vic Maddox, GERBER 11/12/2014 Injection PPD Nurse Visit Craig 11/04/2013 Injection PPD Annette Sin, 10/31/2012 Injection N.P. Immunizations CPT Code Status Date Vaccine Lot # [id number] Given 06/14/2018 Influenza Virus Vaccine, Quadrivalent, Split, Preservative Free 33073 Given 06/05/2017 Influenza Virus Vaccine, Quadrivalent, Split, Preservative Free [id number] Given 07/21/2016 Fluzone Vaccine 19755 Given 06/22/2016 Influenza Virus Vaccine, Quadrivalent, Split, [id number] Preservative Free 45122 Given 09/02/2015 Hepatitis B Vaccine Adult Dosage [id number] 21549 Given 09/02/2015 Pneumonia Vaccine [id number] 22150 Given 06/23/2015 Influenza Virus Vaccine, Quadrivalent, Split, [id number] Preservative Free 12309 Given 11/12/2014 Tdap - Tetanus/Diptheria/Acellular Pertussis [id number] 66543 Given 08/12/2014 Pneumococcal Conjugate Vaccine 13 Valent For [id number] Intramuscular Use 46627 Given 07/05/2014 Influenza Virus Vaccine, Quadrivalent, Split, [id number] Preservative Free 61351 Given 01/17/2014 Hepatitis B Vaccine Adult Dosage [id number] 22400 Given 05/10/2013 Hepatitis B Vaccine Adult Dosage [id number] Vital Signs Date Vital Result Comment 08/07/2019 9:22am Height 67 inches 5'7" Weight 323.00 lb Heart Rate 80 /min BP Systolic Sitting 100 mmHg BP Diastolic Sitting 70 mmHg Respiratory Rate 20 /min BMI (Body Mass Index) 50.6 kg/m2 07/12/2019 9:57am Height 67 inches 5'7" Weight 311.25 lb BP Systolic Sitting 112 mmHg Rue lg cuff BP Diastolic Sitting 60 mmHg Rue lg cuff BP Systolic Recheck 110 mmHg Lue lg cuff BP Diastolic Recheck 58 mmHg Lue lg cuff O2 % BldC Oximetry 96 % BMI (Body Mass Index) 48.7 kg/m2 Results Test Acquired Date Facility Test Result H/L Range Note Laboratory test 07/09/2019 [employer] [facility] In House Influenza A/B Negative A-B finding Rapid Lipid Profile 06/26/2019 [facility] Triglycerides 282 mg/dL 1, 2 (Trig/Chol/HDL) [address] [place] [address] [phone] Cholesterol 162 mg/dL 3 HDL Cholesterol 42.0 mg/dL 4 LDL Cholesterol 64 mg/dL 5 Laboratory test 06/26/2019 [facility] Hemoglobin A1c 7.9 % High 4.0-5.[address] (Glyco HGB) [place] [address] [phone] Laboratory test 04/10/2019 [facility] [employer] [facility] House Hemoglobin A1c 6.0 5-7 finding CBC Auto Diff 03/14/2019 [facility] White Blood 8.3 Normal 3.5 -10.[address] Count 10^3/[place] [address] [phone] Red Blood Count 4.77 10^6/uL Normal 3.70-4.87 Hemoglobin 13.1 g/dL Normal 12.0-16.0 Hematocrit 40 % Normal 35-47 Mean Corpuscular Volume 83 fL Normal 80-97 Mean Corpuscular Hemoglobin 28 pg Normal 27-31 Mean Corpuscular HGB Conc 33 g/dL Normal 31-36 Red Cell Distribution Width 18 % High 10-15 Platelet Count 217 10^3/uL Normal 150-450 Mean Platelet Volume 9.0 fL Normal 7.4-10.4 Abs Neutrophils 4.9 10^3/uL Normal 1.5-7.7 Abs Lymphocytes 2.7 10^3/uL Normal 1.0-4.8 Abs Monocytes 0.6 10^3/uL Normal 0-0.8 Abs Eosinophils 0.1 10^3/uL Normal 0-0.6 Abs Basophils 0.0 10^3/uL Normal 0-0.2 Abs Nucleated RBC 0.0 10^3/uL Granulocyte % 58.8 % Lymphocyte % 32.2 % Monocyte % 7.5 % Eosinophil % 1.1 % Basophil % 0.4 % Nucleated Red Blood Cells % 0.3 Inr/Protime 03/14/2019 [facility] Inr 1.13 High 0.82-1.09 7 [address] [place] [address] [phone] Laboratory test 03/14/2019 [facility] Partial 34.4 Normal 26.0 -38.0 finding [address] [facility] [place] [place] [address] Time PTT [phone] Urinalysis 03/14/2019 [facility] Urine Color Yellow Profile [address] [place] [address] [phone] Urine Appearance Clear Urine Specific [place] 1.023 Normal 1.010-1.030 Urine pH 5.0 Normal 5-9 Urine Urobilinogen Negative Negative Urine Ketones Trace Abnormal Negative Urine Protein Negative Negative Urine Leukocytes Negative Negative Urine Blood Negative Negative Urine Nitrite Negative Negative Urine Bilirubin Negative Negative Urine Glucose 3+(>=500 mg/dL) Abnormal Negative Comp Metabolic 03/14/2019 [facility] Sodium 141 mmol/L Normal 135-145 Panel [address] [place] [address] [phone] Potassium 4.4 mmol/L Normal 3.5-5.0 Chloride 107 mmol/L Normal 101-111 Co2 Carbon Dioxide 20 mmol/L Low 22-32 Anion Gap 14 mmol/L High 2-11 Glucose 210 mg/dL High 70-100 Blood Urea Nitrogen 21 mg/dL Normal 6-24 Creatinine 0.84 mg/dL Normal 0.51-0.95 BUN/Creatinine Ratio 25.0 High 8-20 Calcium 9.7 mg/dL Normal 8.6-10.3 Total Protein 7.2 g/dL Normal 6.4-8.9 Albumin 4.2 g/dL Normal 3.2-5.2 Globulin 3.0 g/dL Normal 2-4 Albumin/Globulin Ratio 1.4 Normal 1-3 Total Bilirubin 0.50 mg/dL Normal 0.2-1.0 Alkaline Phosphatase 49 U/L Normal 34-104 Alt 19 U/L Normal 7-52 Ast 18 U/L Normal 13-39 Egfr Non- 70.1 >60 Egfr 84.9 >60 8 Laboratory test 03/14/2019 [facility] HCG 1.59 mIU/mL [address] [place] [address] [phone] Urine Culture And 03/14/2019 [facility] Urine Culture SEE RESULT [address] [place] [address] [phone] 1 FASTING 2 Desirable: <150 Borderline High: 150-199 High: 200-499 Very High: >500 3 Desirable: <200 Borderline High: 200-239 High: >239 4 Low: <40 Desirable: 40-60 High: >60 5 Desirable: <100 Near Optimal: 100-129 Borderline High: 130-159 High: 160-189 Very High: >189 6 Therapeutic target for the treatment of diabetes mellitus patients is <7% HBA1C, and in selective patients <6.0%. Please refer to [place] Diabetes Association diabetic care guidelines for further information. 7 Standard intensity warfarin therapeutic range: 2.0-3.0 High intensity warfarin therapeutic range: 2.5-3.5 8 Because ethnic data is not always readily available, this report includes an eGFR for both -Americans and non- Americans. The National Kidney Disease Education Program (NKDEP) does not endorse the use of the MDRD equation for patients that are not between the ages of 18 and 70, are , have extremes of body size, muscle mass, or nutritional status, or are non- or non-. According to the National Kidney Foundation, irrespective of diagnosis, the stage of the disease is based on the level of kidney function: Stage Description GFR(mL/min/1.73 m(2)) 1 Kidney damage with normal or decreased GFR 90 2 Kidney damage with mild decrease in GFR 60-89 3 Moderate decrease in GFR 30-59 4 Severe decrease in GFR 15-29 5 Kidney failure <15 (or dialysis) 9 <5.0 Negative 5.0 - 25.0 Indeterminate (Repeat testing recommended after 72 hours) >25.0 Positive Perimenopausal women can display HCG levels of up to 20 mIU/mL 10 SEE RESULT BELOW Name: DK SOL : [address]: Sarah Crowe MD Acct: [id number] Unit: [id number] AGE: 58 Location: LAB Re03/14/19 SEX: F Status: REG REF SPEC: [id number] MARIA GUADALUPE: 03/14/19-1030 [facility] DR: Sarah Crowe MD REQ: [id number] RECD: 03/14/19 STATUS: AMI PATEL DR: Deb Pate MD _ SOURCE: URINE SPDESC: ORDERED: Urine Culture Urine Source: Clean Catch Procedure Result Reported Site Urine Culture Final 03/15/19- 1057 ML Mixed gorge; possible contamination. Suggest resubmission. * ML - Main Lab . END OF REPORT DEPARTMENT OF PATHOLOGY, [address] [place] [address] Raymond Brown M.D. Director [facility] # [id number] Procedures Date Code Description Status 04/29/2019 85068421 Mammogram Completed 04/12/2019 09246 Injection Single Tendon Origin/Insertion Completed 03/14/2019 22270 EKG, Interpretation Only Completed 02/18/2019 31698 Admin Of Inj Completed 02/15/2019 15248 EKG Tracing & Interpretation Completed 09/27/2018 [id number] Diabetic Retinal Eye Exam Completed 02/07/2018 [id number] Diabetic Foot Exam Completed 03/14/2017 [id number] Mammogram Completed 11/16/2016 [id number] Diabetic Retinal Eye Exam Completed 09/18/2015 155421506 Diabetic Retinal Eye Exam Completed 11/05/2014 [id number] Mammogram Completed 07/03/2014 832827241 Diabetic Retinal Eye Exam Completed 12/09/2013 [id number] Colonoscopy Completed 11/04/2013 [id number] Mammogram Completed 05/03/2013 528462242 Diabetic Retinal Eye Exam Completed Medical Devices Description No Information Available Encounters Type Date Location Provider Dx Diagnosis Office Visit 07/12/2019 Emily Pate MD E11.65 Type 2 diabetes 9:40a Medicine - [facility] mellitus with hyperglycemia I10 Essential (primary) hypertension J06.9 Acute upper respiratory infection, unspecified Office Visit 07/09/2019 3:20p Emily Pate J06.9 [facility], [facility] Office Visit 05/24/2019 1:15p [place], M25.551 [facility].11 Unilateral primary osteoarthritis, right hip M70.61 Trochanteric bursitis, right hip Office Visit 05/03/2019 9:15a Pulmonology And Jessica J44.9 Chronic Sleep Services Of MD Stephane obstructive [employer] pulmonary disease, unspecified G47.33 Obstructive sleep apnea (adult) (pediatric) Office Visit 04/12/2019 2:30p [place] [facility] M25.551 Pain in right at [facility] hip M16.11 Unilateral primary osteoarthritis, right hip M70.61 Trochanteric bursitis, right hip Office Visit 04/10/2019 10:40a Emily Pate MD M25.551 Pain in right Medicine - [facility] hip I10 Essential (primary) hypertension E11.9 Type 2 diabetes mellitus without complications R32 Unspecified urinary incontinence N95.2 Postmenopausal atrophic vaginitis Z12.31 Encntr screen mammogram for malignant neoplasm of breast Office Visit 03/29/2019 2:00p Emily Pate, Z01.818 Encounter for other Medicine - preprocedural [facility] examination I67.5 [place] disease Office Visit 02/20/2019 10:15a [place] [facility] Geraldo Calderón I67.5 [place] Services Of Emily UPTON disease G43.019 Migraine w/o aura, intractable, without status migrainosus Office Visit 02/18/2019 Emily Pate, S33.5xxA Sprain of 1:20p [facility], initial encounter Office Visit 02/15/2019 Leticia Long I10 Essential 10:00a Cardiology Of Omer Chavarria (primary) [facility] hypertension R94.31 Abnormal electrocardiogram [ECG] [EKG] R94.39 Abnormal result of other cardiovascular function study Office Visit 02/13/2019 11:00a Pulmonology And Jessica J44.9 Chronic [facility] Of MD Stephane obstructive [employer] pulmonary disease, unspecified G47.33 Obstructive sleep apnea (adult) (pediatric) Z12.2 Encntr screen for malignant neoplasm of respiratory organs Office Visit 02/07/2019 11:00a [employer] [facility] Internal Deb Pate, E11.9 Type 2 diabetes Medicine - MD mellitus without [facility] complications M25.551 Pain in right hip Assessments Date Code Description Provider 08/07/2019 I67.5 [place] disease Geraldo Calderón MD 08/07/2019 G43.019 Migraine without aura, intractable, Geraldo Calderón MD without status migrainos 07/12/2019 E11.65 Type 2 diabetes mellitus with Deb Pate MD hyperglycemia 07/12/2019 I10 Essential (primary) hypertension Deb Pate MD 07/12/2019 J06.9 Acute upper respiratory infection, Deb Pate MD unspecified 07/09/2019 J06.9 Acute upper respiratory infection, Deb Pate MD unspecified 05/24/2019 M25.551 Pain in right hip Ruth Gonzalez M.D. 05/24/2019 M16.11 Unilateral primary osteoarthritisRuth M.D. right hip 05/24/2019 M70.61 Trochanteric bursitis, right hip Ruth Gonzalez M.D. 05/03/2019 J44.9 Chronic obstructive pulmonary Jessica Calderón MD disease, unspecified 05/03/2019 G47.33 Obstructive sleep apnea (adult) Jessica Calderón MD (pediatric) 04/12/2019 M25.551 Pain in right hip Ruth Gonzalez M.D. 04/12/2019 M16.11 Unilateral primary osteoarthritisRuth M.D. right hip 04/12/2019 M70.61 Trochanteric bursitis, right hip Ruth Gonzalez M.D. 04/10/2019 M25.551 Pain in right hip Deb Pate MD 04/10/2019 I10 Essential (primary) hypertension Deb Pate MD 04/10/2019 E11.9 Type 2 diabetes mellitus without Deb Pate MD complications 04/10/2019 R32 Unspecified urinary incontinence Deb Pate MD 04/10/2019 N95.2 Postmenopausal atrophic vaginitis Deb Pate MD 04/10/2019 Z12.31 Encounter for screening mammogram for Deb Pate MD malignant neoplasm of 03/29/2019 Z01.818 Encounter for other preprocedural Deb Pate MD examination 03/29/2019 I67.5 [place] disease Deb Pate MD 03/14/2019 Z13.6 Encounter for screening for Amos Beckman MD, [facility], cardiovascular disorders [facility] 02/20/2019 I67.5 [place] disease Geraldo Calderón MD 02/20/2019 G43.019 Migraine without aura, intractable, Geraldo Calderón MD without status migrainos 02/18/2019 S33.5xxA Sprain of ligaments of lumbar spine, Deb Pate MD initial encounter 02/15/2019 I10 Essential (primary) hypertension Lucas Chavarria M.D. 02/15/2019 R94.31 Abnormal electrocardiogram [ECG] Lucas Chavarria M.D. [EKG] 02/15/2019 R94.39 Abnormal result of other Lucas Chavarria M.D. cardiovascular function study 02/13/2019 J44.9 Chronic obstructive pulmonary Jessica Calderón MD disease, unspecified 02/13/2019 G47.33 Obstructive sleep apnea (adult) Jessica Calderón MD (pediatric) 02/13/2019 Z12.2 Encounter for screening for malignant Jessica Calderón MD neoplasm of respirator 02/07/2019 E11.9 Type 2 diabetes mellitus without Deb Pate MD complications 02/07/2019 M25.551 Pain in right hip Deb Pate MD Plan of Treatment Future Appointment(s):11/11/2019 9:45 am - Geraldo Calderón MD at [facility] [id number]/26/2019 1:15 pm - Ruth Gonzalez M.D. at [facility] [place] [facility] at [id number]/23/2019 10:45 am - Jessica Calderón MD at [facility]10/16/2019 10:10 am - Aixa Shine M.D. at [facility] Internal Medicine - [facility]08/07/2019 - Geraldo Calderón MDI67.5 [place] aacxiobH86.019 Migraine without aura, intractable, without status migrainosNew Medication:Ajovy 225 mg/1.5ML - inject once a monthComments:Her atkins atkins is stable.Her headaches which are likely a combination of migraines and muscular skeletal headaches have been difficult to treat and try ajovy and discussed side effects. Will need to get insurance approval first. Discussed we can go back up on the topamax which helped some if the ajovy does not help but the topamax can worsen her speech problems.Follow up:3 months Functional Status Description No Information Available Mental Status Description No Information Available Referrals Refer to Reason for Referral Status Appt Date Ruth Gonzalez MD pt with very sharp pain over right hip without Sent 2018 trauma or injury, only mild OA on imaging [address] [facility] [place] [address] [phone]
--- OUTSIDE RECORDS SUMMARY | 2019-09-11 10:07 | XMS REPORT ---
:1960 Author Organization [facility] Care Team Providers Name Role Phone Unavailable Unavailable Unavailable Problems Condition Condition Condition Status Onset Resolution Last Treating Comments Name Details Category Date Date Treatment Clinician Date Pain frequent Pain Mgmt Resolve 2019-02-05 Becca pain d 06-20 10:30:00 (Andrés) 08:20: Walker 00 [id number] Cardio edema Cardiovasc Resolve 2018-08-16 Becca ular d 06-20 10:00:00 (Andrés) 08:20: Walker 00 [id number] Respiratory dyspnea Respirator Resolve 2019-02-05 Becca present y d 06-20 10:30:00 (Andrés) 08:20: Walker 00 [id number] Respiratory lung sounds Respirator Resolve 2019-02-05 Becca deficit y d 06-20 10:30:00 (Andrés) 08:20: Walker 00 [id number] Endo/Gage anti-coagul Endo/Gage Resolve 2018-07-31 Becca ation d 06-20 11:58:00 (Andrés) therapy 08:20: Walker 00 [id number] Integument skin Integument Active Becca integrity 06-20 (Andrés) risk 08:20: Walker 00 [id number] Elimination urinary Eliminatio Resolve 2018-08-16 Becca incontinenc n d 06-20 10:00:00 (Andrés) e 08:20: Walker 00 [id number] Neuro confusion Neuro/Emot Active Becca present ion 06-20 (Andrés) 08:20: Walker 00 [id number] Neuro anxiety Neuro/Emot Active Becca present ion 06-20 (Andrés) 08:20: Walker 00 [id number] Neuro impaired Neuro/Emot Active Becca decision-ma ion 06-20 (Andrés) caty 08:20: Walker [id number] Activity ADL Activity Active Becca assistance 06-20 (Andrés) required 08:20: Walker [id number] Safety cannot be Safety Active Becca left alone 06-20 (Andrés) 08:20: Walker [id number] Safety fall risk Safety Active Becca factor 06-20 (Andrés) present 08:20: Walker [id number] Safety risk for Safety Active Becca hospitaliza 06-20 (Andrés) tion 08:20: Walker [id number] Medication oral med Meds Resolve 2018-07-31 Becca assistance d 06-20 11:58:00 (Andrés) required 08:20: Walker [id number] Medication potential Meds Resolve 2018-07-31 Becca clinically d 06-20 11:58:00 (Andrés) significant 08:20: Walker medication 00 [id number] issue Musculoskel requires Musculoske Resolve 2019-06-13 Becca etal human letal d 06-20 13:00:00 (Andrés) assist to 08:20: Walker leave home 00 [id number] Musculoskel transfer Musculoske Resolve 2019-06-13 Becca etal assistance letal d 06-20 13:00:00 Guidelli required 08:20: [id number] Respiratory oxygen Respirator Resolve 2019-02-05 Loreta treatments y d 06-26 10:30:00 Guy-Zos in home 10:28: h [id number] 00 Safety can be left Safety Active Loreta alone for 06-26 Guy-Zos only short 10:28: h [id number] periods 00 Elimination urinary Eliminatio Resolve 2017-102018-08-16 Loreta frequency n d 10:00:00 Guy-Zos 11:58: h [id number] 00 Neuro knowledge/s Neuro/Emot Active 2017-10 Loreta kill ion Guy-Zos deficit: cg 11:58: h [id number] 00 Endo/Gage anti-coagul Endo/Gage Resolve 2017-102019-01-29 Loreta ation d 1-15 12:45:00 Underwood-Zos therapy 10:00: h [id number] 00 Neuro depressive Neuro/Emot Active 2017-10 Loreat feelings ion 1-15 Guy-Zos present 10:00: h [id number] 00 Medication oral med Meds Resolve 2017-102019-02-05 Loreta assistance d 1-15 10:30:00 Underwood-Zos required 10:00: h [id number] 00 Medication injectable Meds Resolve 2017-102019-02-05 Loreta med d 1-15 10:30:00 Underwood-Zos assistance 10:00: h [id number] required 00 Medication potential Meds Active 2017-10 Loreta clinically -15 Guy-Zos significant 10:00: h [id number] medication 00 issue Endo/Gage knowledge/s Endo/Gage Resolve [...] nebulizer Respirator Active Cherrise treatment y - [place] in home 09:30: [id number] 00 Endo/Gage glucose Endo/Gage Resolve 2019-01-29 Cherrise tolerance d - 12:45:00 [place] problem 09:30: [id number] 00 Nutrition knowledge/s Nutrition Resolve 2019-01-29 Cherrise kill d - 12:45:00 [place] deficit: pt 09:30: [id number] 00 Elimination urinary Eliminatio Resolve 2019-01-15 Cherrise incontinenc n d 12-25 11:25:00 [place] e 09:30: [id number] 00 Elimination urinary Eliminatio Resolve 2019-01-15 Cherrise urgency n d 12-25 11:25:00 Emily 09:30: [id number] 00 Endo/Gage insulin Endo/Gage Resolve 2019-02-05 Cher[facility] admn d 01-01 10:30:00 [place] dependence 09:55: [id number] 00 Endo/Gage glucose Endo/Gage Resolve 2019-02-05 Cherrise testing d 01-01 10:30:00 Emily dependence 09:55: [id number] 00 Elimination urinary Eliminatio Resolve 2019-01-15 Cherrise frequency n d 01-01 11:25:00 [place] 09:55: [id number] 00 Elimination recurring Eliminatio Resolve 2019-02-05 Cherrise UTI n d 01-01 10:30:00 [place] 09:55: [id number] 00 Respiratory knowledge/s Respirator Resolve 2019-01-08 Marlene [...] Tiffani incontinenc n 0-08 Nila e 09:15: [facility] 00 [id number] Elimination constipatio Eliminatio Active 2018-10 Marlene n [...] mg capsule capsule carvedilol carvedilol 2017- No Sherrill Unknown Unknown 6.25 mg 6.25 mg 06-20 Abiel UPTON tablet tablet Brandon Vitamin D3 Vitamin D3 No Crowe 2000 Unknown 2,000 unit 2,000 unit Sarah UPTON units capsule capsule dilTIAZem dilTIAZem 2017- No Sherrill Unknown Unknown 120 mg 120 mg 06-20 Abiel UPTON tablet tablet Brandon Depakote Depakote No Crowe 1-2 Unknown 500 mg 500 mg Sarah UPTON tablet,lauryn tablet,lauryn yed release yed release Colace 100 Colace 100 2017- No Sherrill Unknown Unknown mg capsule mg capsule 06-20 Abiel U[facility]ON furosemide furosemide No Crowe 20 mg Unknown 20 mg 20 mg Sarah UPTON tablet tablet gabapentin gabapentin 2017- No Sherrill Unknown Unknown 300 mg 300 mg 06-20 Abiel UPTON capsule capsule Brandon glimepiride glimepiride No Crowe 4 mg Unknown 4 mg tablet 4 mg tablet Sarah UPTON liraglutide liraglutide No Crowe 1 Unknown 0.6 mg/0.1 0.6 mg/0.1 Sarah UPTON injecti mL (18 mg/3 mL (18 mg/3 on mL) mL) subcutaneou subcutaneou s pen s pen injector injector lisinopril lisinopril 2017- No Sherrill Unknown Unknown 20 mg 20 mg 06-20 Abiel UPTON tablet tablet Brandon Oyster Oyster No Crowe 500 mg Unknown Shell Shell Sarah UPTON Calcium 500 Calcium 500 500 mg 500 mg calcium calcium (1,250 mg) (1,250 mg) tablet tablet multivitami multivitami 2017- No Sherrill Unknown Unknown n capsule n capsule 06-20 [...] mg ,Sarah capsule capsule oxygen oxygen No Sherrill Unknown Unknown 06-20 Abiel U[facility]ON clopidogrel clopidogrel 2017- No Sherrill Unknown Unknown 75 mg 75 mg 06-20 Abiel UPTON tablet tablet Brandon desvenlafax desvenlafax 2017- No Sherrill Unknown Unknown ine ine 06-20 Abiel UPTON succinate succinate Brandon ER 100 mg ER 100 mg tablet,exte tablet,exte nded nded release 24 release 24 hr hr diphenhydrA diphenhydrA 2017- No Sherrill Unknown Unknown MINE 25 mg MINE 25 mg 06-20 ,Abiel capsule capsule Barndon Depakote ER Depakote ER 2017- No Sherrill Unknown Unknown 500 mg 500 mg 06-20 Abiel UPTON tablet,exte tablet,exte Brandon nded nded release release famotidine famotidine 2017- No Sherrill Unknown Unknown 40 mg 40 mg 06-20 Abiel UPTON tablet tablet Brandon gabapentin gabapentin 2017- No Sherrill Unknown Unknown 100 mg 100 mg 06-20 Abiel UPTON capsule capsule Brandon glimepiride glimepiride 2017- No Sherrill Unknown Unknown 4 mg tablet 4 mg tablet 06-20 Abiel U[facility]ON Nystop Nystop No Sherrill Unknown Unknown 100,000 100,000 06-20 Abiel UPTON unit/gram unit/gram Brandon topical topical powder powder atorvastati atorvastati 2017- No Sherrill Unknown Unknown n 80 mg n 80 mg 06-20 ,Abiel tablet tablet Brandon carvedilol carvedilol 2017-10- No Sherrill Unknown Unknown 6.25 mg 6.25 mg 07-02 ,Abiel tablet tablet Brandon Colace 100 Colace 100 2017-10- No Sherrill Unknown Unknown mg capsule mg capsule 07-02 Abiel UPTON diphenhydrA diphenhydrA 2017-10- No Sherrill Unknown Unknown MINE 25 mg MINE 25 mg 12-14 Abiel UPTON capsule capsule Brandon Depakote ER Depakote ER 2017-10- No Sherrill Unknown Unknown 500 mg 500 mg 09-27 ,Abiel tablet,exte tablet,exte Brandon nded nded release release Topamax 50 Topamax 50 2017- No Kandy Unknown Unknown mg tablet mg tablet 06-27 Willian U[facility]ON Saphris Saphris 2017- No Kandy Unknown Unknown (black (black 06-27 ,Willian golden) 10 golden) 10 mg mg sublingual sublingual tablet tablet pantoprazol pantoprazol 2017- No Sherrill Unknown Unknown e 40 mg e 40 mg 06-27 Abiel UPTON tablet,lauryn tablet,lauryn Brandon yed release yed release raNITIdine raNITIdine 2017- No Sherrill Unknown Unknown 300 mg 300 mg 06-27 Abiel UPTON tablet tablet Brandon Calcium 500 Calcium 500 2017- No Sherrill Unknown Unknown With D 500 With D 500 06-27 Abiel UPTON mg (1,250 mg (1,250 Brandon mg)-400 mg)-400 unit tablet unit tablet Vitamin D3 Vitamin D3 2018- No Sherrill Unknown Unknown 400 unit 400 unit 06-27 Abiel UPTON capsule capsule Brandon Victoza Victoza No Sherrill Unknown Unknown 2-Jeison 0.6 2-Jeison 0.6 06-27 Abiel UPTON mg/0.1 mL mg/0.1 mL rBandon (18 mg/3 (18 mg/3 mL) mL) subcutaneou subcutaneou s pen s pen injector injector atorvastati atorvastati 2017-10- No Sherrill Unknown Unknown n 80 mg n 80 [...] tablet 10-09 ,Geraldo doxycycline doxycycline 2017-10- No Sherrill Unknown Unknown monohydrate monohydrate 10-15 ,Abiel 100 mg 100 mg Brandon capsule capsule lithium lithium 2017-10- No Kandy Unknown Unknown carbonate carbonate 11-28 ,Willian 300 mg 300 mg tablet tablet Depakote ER Depakote ER 2017-10- No Kandy Unknown Unknown 500 mg 500 mg 11-28 ,Willian tablet,exte tablet,exte nded nded release release sennosides sennosides 2017-10 No Sherrill Unknown Unknown 8.6 8.6 11-28 ,Abiel mg-docusate [...] mg tablet tablet diphenhydrA diphenhydrA 2018- No Sherrill Unknown Unknown MINE 25 mg MINE 25 mg 12-14 ,Abiel capsule capsule Brandon clindamycin clindamycin 2018- No Pate Unknown Unknown HCl 300 mg HCl 300 mg 12-25 ,Deb capsule capsule dilTIAZem dilTIAZem No Sherrill Unknown Unknown 120 mg 120 mg 06-20 ,Abiel tablet tablet Brandon gabapentin gabapentin 2018- No Sherrill Unknown Unknown 300 mg 300 mg 06-20 ,Abiel capsule capsule Brandon lisinopril lisinopril No Sherrill Unknown Unknown 20 mg 20 mg 06-20 ,Abiel tablet tablet Brandon multivitami multivitami No Sherrill Unknown Unknown n capsule n capsule 06-20 Abiel UPTON clopidogrel clopidogrel No Sherrill Unknown Unknown 75 mg 75 mg 06-20 ,Abiel tablet tablet Brandon gabapentin gabapentin No Sherrill Unknown Unknown 100 mg 100 mg 06-20 ,Abiel capsule capsule Brandon glimepiride glimepiride No Sherrill Unknown Unknown 4 mg tablet 4 mg tablet 06-20 Abiel UPTON carvedilol carvedilol 2017- No Sherrill Unknown Unknown 6.25 mg 6.25 mg 06-20 ,Abiel tablet tablet Brandon Saphris Saphris 2018- No Kandy Unknown Unknown (black (black 06-20 ,Willian golden) 10 chico) 10 mg mg sublingual sublingual tablet tablet pantoprazol pantoprazol No Sherrill Unknown Unknown e 40 mg e 40 mg 06-20 ,Abiel tablet,lauryn tablet,lauryn Brandon yed release yed release raNITIdine raNITIdine No Sherrill Unknown Unknown 300 mg 300 mg 06-20 ,Abiel tablet tablet Brandon Calcium 500 Calcium 500 2017- No Sherrill Unknown Unknown With D 500 With D 500 06-20 Abiel UPTON mg (1,250 mg (1,250 Brandon mg)-400 mg)-400 unit tablet unit tablet Vitamin D3 Vitamin D3 2018- No Sherrill Unknown Unknown 1,000 unit 1,000 unit 01-01 ,Abiel capsule capsule Brandon atorvastati atorvastati 2017- No Sherrill Unknown Unknown n 80 mg n 80 mg 10-31 ,Abiel tablet tablet Brandon atorvastati atorvastati 2017-10 No Sherrill Unknown Unknown n 80 mg n 80 [...] 24 hour hour carvedilol carvedilol 2017-10- No Sherrill Unknown Unknown 6.25 mg 6.25 mg 007-02 ,Abiel tablet tablet Brandon Saphris Saphris 2018- No Kandy Unknown Unknown (black (black 06-27- ,Willian golden) 10 golden) 10 mg mg sublingual sublingual tablet tablet Calcium 500 Calcium 500 2018- No Sherrill Unknown Unknown With D 500 With D 500 06-27 Abiel UPTON (1,250 mg (1,250 Brandon mg)-400 mg)-400 unit tablet unit tablet Topamax 50 Topamax 50 2017-10- No Kaitlynn Unknown Unknown mg tablet mg tablet 10-09 Geraldo UPTON Depakote ER Depakote ER No Kandy Unknown Unknown 500 mg 500 mg 10-23 ,Willian tablet,exte tablet,exte nded nded release release diphenhydrA diphenhydrA No Sherrill Unknown Unknown MINE 25 mg MINE 25 mg 12-14 ,Abiel capsule capsule Brandon lithium lithium 2018- No Kandy Unknown Unknown carbonate carbonate 11-29 ,Willian 300 mg 300 mg tablet tablet Colace 100 Colace 100 2017-10- No Sherrill Unknown Unknown mg capsule mg capsule 0- Abiel UPTON ipratropium ipratropium No Sherrill Unknown Unknown bromide bromide 02-19 Abiel UPTON 0.02 % 0.02 % Brandon solution solution for for inhalation inhalation albuterol albuterol No Sherrill Unknown Unknown sulfate 2.5 sulfate 2.5 02-19 Abiel UPTON mg/3 mL mg/3 mL Brandon (0.083 %) (0.083 %) solution solution for for nebulizatio nebulizatio n n predniSONE predniSONE 2018- No Sherrill Unknown Unknown 20 mg 20 mg 12-28 ,Abiel tablet tablet Brandon benzonatate benzonatate No Sherrill Unknown Unknown 100 mg 100 mg 12-28 ,Abiel capsule capsule Brandon doxycycline doxycycline 2018- No Sherrill Unknown Unknown hyclate 100 hyclate 100 12-28 [...] Unknown Unknown 2,000 unit 2,000 unit 01-01 MD,Edb tablet tablet Colace 100 Colace 100 No [...] Unknown Unknown mg tablet mg tablet 04-09 eGraldo UPTON Topamax 50 Topamax 50 2018- Yes [...] Kandy Unknown Unknown mg mg 0- Willian UPTNO sublingual sublingual tablet tablet Rexulti 2 Rexulti 2 2018- Yes Kandy Unknown Unknown mg tablet mg tablet 05-31 Willian UPTON Invokana Invokana No Pate Unknown Unknown 100 mg 100 mg 02-20 ,Deb tablet tablet carvedilol carvedilol 2017-10 No Sherrill Unknown Unknown 6.25 mg 6.25 mg 0- [...]
--- OUTSIDE RECORDS SUMMARY | 2019-09-11 10:07 | XMS REPORT ---
:1960 Author Organization [facility] Care Team Providers Name Role Phone Unavailable Unavailable Unavailable Problems Condition Condition Condition Status Onset Resolution Last Treating Comments Name Details Category Date Date Treatment Clinician Date Pain frequent Pain Mgmt Resolve 2019-02-05 Becca pain d 06-20 10:30:00 (Andrés) 08:20: Walker 00 [id number] Cardio edema Cardiovasc Resolve 2018-08-16 Becca ular d 06-20 10:00:00 (Andrés) 08:20: Walker 00 [id number] Respiratory dyspnea Respirator Resolve 2019-02-05 Becca present y d 06-20 10:30:00 (Andrés) 08:20: Walker 00 [id number] Respiratory lung sounds Respirator Resolve 2019-02-05 Becca deficit y d 06-20 10:30:00 (Andrés) 08:20: Walker 00 [id number] Endo/Gage anti-coagul Endo/Gage Resolve 2018-07-31 Becca ation d 06-20 11:58:00 (Andrés) therapy 08:20: Walker 00 [id number] Integument skin Integument Active Becca integrity 06-20 (Andrés) risk 08:20: Walker [id number] Elimination urinary Eliminatio Resolve 2018-08-16 Becca incontinenc n d 06-20 10:00:00 (Andrés) e 08:20: Walker 00 [id number] Neuro confusion Neuro/Emot Active Becca present ion 06-20 (Andrés) 08:20: Walker 00 [id number] Neuro anxiety Neuro/Emot Active Becca present ion 06-20 (Andrés) 08:20: Walker 00 [id number] Neuro impaired Neuro/Emot Active Becca decision-ma ion 06-20 (Andrés) caty 08:20: Walker [id number] Activity ADL Activity Active Becca assistance 06-20 (Andrés) required 08:20: Walker [id number] Safety cannot be Safety Active Becca left alone 06-20 (Andrés) 08:20: Walker [id number] Safety fall risk Safety Active Becac factor 06-20 (Andrés) present 08:20: Wlaker [id number] Safety risk for Safety Active Becca hospitaliza 06-20 (Andrés) tion 08:20: Walker [id number] Medication oral med Meds Resolve 2018-07-31 Becca assistance d 06-20 11:58:00 (Andrés) required 08:20: Walker [id number] Medication potential Meds Resolve 2018-07-31 Becca clinically d 06-20 11:58:00 (Andrés) significant 08:20: Walker medication 00 [id number] issue Musculoskel requires Musculoske Resolve 2019-06-13 Becca etal human letal d 06-20 13:00:00 (Andrés) assist to 08:20: Walker leave home 00 [id number] Musculoskel transfer Musculoske Resolve 2019-06-13 Becca etal assistance letal d 06-20 13:00:00 Guidelli required 08:20: [id number] 00 Respiratory oxygen Respirator Resolve 2019-02-05 Loreta treatments y d 06-26 10:30:00 Guy-Zos in home 10:28: h [id number] Safety can be left Safety Active Loreta alone for 06-26 Guy-Zos only short 10:28: h [id number] periods 00 Elimination urinary Eliminatio Resolve 2017-102018-08-16 Loreta frequency n d 10:00:00 Guy-Zos 11:58: h [id number] 00 Neuro knowledge/s Neuro/Emot Active 2017-10 Loreta kill ion Guy-Zos deficit: cg 11:58: h [id number] 00 Endo/Gage anti-coagul Endo/Gage Resolve 2017-102019-01-29 Loreta ation d 1-15 12:45:00 Laurel-Zos therapy 10:00: h [id number] 00 Neuro depressive Neuro/Emot Active 2017-10 Loreta feelings ion 1-15 Guy-Zos present 10:00: h [id number] 00 Medication oral med Meds Resolve 2017-102019-02-05 Loreta assistance d 1-15 10:30:00 Laurel-Zos required 10:00: h [id number] 00 Medication injectable Meds Resolve 2017-102019-02-05 Loreta med d 1-15 10:30:00 Laurel-Zos assistance 10:00: h [id number] required 00 Medication potential Meds Active 2017-10 Loreta clinically -15 Guy-Zos significant 10:00: h [id number] medication 00 issue Endo/Gage knowledge/s Endo/Gage Resolve [...] nebulizer Respirator Active [facility] treatment y - [place] in home 09:30: [id number] Endo/Gage glucose Endo/Gage Resolve 2019-01-29 Cherrise tolerance d - 12:45:00 [place] problem 09:30: [id number] Nutrition knowledge/s Nutrition Resolve 2019-01-29 Cherrise kill d - 12:45:00 [place] deficit: pt 09:30: [id number] 00 Elimination urinary Eliminatio Resolve 2019-01-15 Cherrise incontinenc n d 12-25 11:25:00 [place] e 09:30: [id number] 00 Elimination urinary Eliminatio Resolve 2019-01-15 Cherrise urgency n d 12-25 11:25:00 Emily 09:30: [id number] 00 Endo/Gage insulin Endo/Gage Resolve 2019-02-05 Cherrise admn d 01-01 10:30:00 [place] dependence 09:55: [id number] 00 Endo/Gage glucose Endo/Gage Resolve 2019-02-05 Cherrise testing d 01-01 10:30:00 Emily dependence 09:55: [id number] 00 Elimination urinary Eliminatio Resolve 2019-01-15 Cherrise frequency n d 01-01 11:25:00 [place] 09:55: [id number] 00 Elimination recurring Eliminatio Resolve 2019-02-05 Cherrise UTI n d 01-01 10:30:00 [place] 09:55: [id number] 00 Respiratory knowledge/s Respirator Resolve 2019-01-08 Marlene [...] required 00 Medication oral med Meds Resolve 07-15 Marlene assistance d 7-15 14:25:00 Carrier RN required 14:25: 00 Medication oral med Meds Active Marlene assistance 8-13 Carrier RN required 15:30: 00 Respiratory oxygen Respirator Active [facility] treatments y 06-04 [place] in home 11:00: RN 00 Respiratory lung sounds Respirator Active Terra deficit y 06-04 [place] 11:00: RN 00 Endo/Gage anti-coagul Endo/Gage Active Terra ation 06-04 [place] therapy 11:00: RN 00 Pain frequent Pain Mgmt Active Terra pain 06-13 [place] 13:00: RN 00 Nutrition changing Nutrition Active Terra weight/appe 06-13 [place] tite 13:00: RN 00 Elimination urinary Eliminatio Active 2018-10 Tiffani incontinenc n 0-08 Nila e 09:15: [facility] 00 [id number] Allergies, Adverse Reactions, Alerts Allergy Name Allergy Status Severity Reaction(s) Onset Inactive Treating Comments Type Date Date Clinician morphine Base Active Unknown Reaction Barb Beam Ingredient Unknown 18 clavulanic Base Active Unknown Reaction Barb Beam acid Ingredient Unknown 918 nitrofuranto Base Active Unknown Reaction Barb Beam in Ingredient Unknown 18 meperidine Base Active Unknown Reaction Barb Beam [...] mg capsule capsule carvedilol carvedilol 2017- No Eudora Unknown Unknown 6.25 mg 6.25 mg 06-20 Abiel UPTON tablet tablet Brandon Vitamin D3 Vitamin D3 No Crowe 2000 Unknown 2,000 unit 2,000 unit Sarah UPTON units capsule capsule dilTIAZem dilTIAZem 2017- No Eudora Unknown Unknown 120 mg 120 mg 06-20 Abiel UPTON tablet tablet Brandon Depakote Depakote No Crowe 1-2 Unknown 500 mg 500 mg Sarah UPTON tablet,lauryn tablet,lauryn yed release yed release Colace 100 Colace 100 2017- No Eudora Unknown Unknown mg capsule mg capsule 06-20 Abiel U[facility] furosemide furosemide No Crowe 20 mg Unknown 20 mg 20 mg Sarah UPTON tablet tablet gabapentin gabapentin 2017- No E[place]ora Unknown Unknown 300 mg 300 mg 06-20 Abiel UPTON capsule Brandon glimepiride glimepiride No Crowe 4 mg Unknown 4 mg tablet 4 mg tablet Sarah UPTON liraglutide liraglutide No Crowe 1 Unknown 0.6 mg/0.1 0.6 mg/0.1 Sarah UPTON injecti mL (18 mg/3 mL (18 mg/3 on mL) mL) subcutaneou subcutaneou s pen s pen injector injector lisinopril lisinopril 2017- No Eudora Unknown Unknown 20 mg 20 mg 06-20 Abiel UPT[facility] tablet tablet Brandon Oyster Oyster No Crowe 500 mg Unknown Shell Shell Sarah U[facility] Calcium 500 Calcium 500 500 mg 500 mg calcium calcium (1,250 mg) (1,250 mg) tablet tablet multivitami multivitami 2017- No Eudora Unknown Unknown n capsule n capsule 06-20 [...] mg ,Sarah capsule capsule oxygen oxygen No Eudora Unknown Unknown 06-20 Abiel U[facility]ON clopidogrel clopidogrel 2017- No [place]ora Unknown Unknown 75 mg 75 mg 06-20 Abiel UPT[facility] tablet tablet Brandon desvenlafax desvenlafax 2017- No E[place]ora Unknown Unknown ine ine 06-20 Abiel U[facility] succinate succinate Brandon ER 100 mg ER 100 mg tablet,exte tablet,exte nded nded release 24 release 24 hr hr diphenhydrA diphenhydrA 2017- No Eudora Unknown Unknown MINE 25 mg MINE 25 mg 06-20 Abiel U[facility] capsule capsule Brandon Depakote ER Depakote ER 2017- No E[place]ora Unknown Unknown 500 mg 500 mg 06-20 Abiel UPTON tablet,exte tablet,exte Brandon nded nded release release famotidine famotidine 2017- No Eudora Unknown Unknown 40 mg 40 mg 06-20 Abiel UPTON tablet tablet Brandon gabapentin gabapentin 2017- No E[place]ora Unknown Unknown 100 mg 100 mg 06-20 Abiel UPTON capsule capsule Brandon glimepiride glimepiride 2017- No E[place]ora Unknown Unknown 4 mg tablet 4 mg tablet 06-20 Abiel U[facility] Nystop Nystop No Eudora Unknown Unknown 100,000 100,000 06-20 Abiel UPTON unit/gram unit/gram Brandon topical topical powder powder atorvastati atorvastati 2017- No Eudora Unknown Unknown n 80 mg n 80 mg 06-20 Abiel UPTON tablet tablet Brandon carvedilol carvedilol 2017-10- No Eudora Unknown Unknown 6.25 mg 6.25 mg 07-02 Abiel UPTON tablet tablet Brandon Colace 100 Colace 100 2017-10- No Eudora Unknown Unknown mg capsule mg capsule 07-02 Abiel U[facility] diphenhydrA diphenhydrA 2017-10- No Eudora Unknown Unknown MINE 25 mg MINE 25 mg 12-14 Abiel UPTON capsule capsule Brandon Depakote ER Depakote ER 2017-10- No Eudora Unknown Unknown 500 mg 500 mg 09-27 ,Abiel tablet,exte tablet,exte Brandon nded nded release release Topamax 50 Topamax 50 2017- No Kandy Unknown Unknown mg tablet mg tablet 06-27 ,Willian Saphris Saphris 2017- No Kandy Unknown Unknown (black (black 06-27 ,Willian golden) 10 golden) 10 mg mg sublingual sublingual tablet tablet pantoprazol pantoprazol 2017- No Eudora Unknown Unknown e 40 mg e 40 mg 06-27 ,Abiel tablet,lauryn tablet,lauryn Brandon yed release yed release raNITIdine raNITIdine 2017- No Eudora Unknown Unknown 300 mg 300 mg 06-27 Abiel UPTON tablet tablet Brandon Calcium 500 Calcium 500 2017- No Eudora Unknown Unknown With D 500 With D 500 06-27 Abiel UPT[facility] (1,250 mg (1,250 Brandon mg)-400 mg)-400 unit tablet unit tablet Vitamin D3 Vitamin D3 2018- No Eudora Unknown Unknown 400 unit 400 unit 06-27 Abiel UPTON capsule capsule Brandon Victoza Victoza No Eudora Unknown Unknown 2-Jeison 0.6 2-Jeison 0.6 06-27 Abiel UPTON mg/0.1 mL mg/0.1 mL Brandon (18 mg/3 (18 mg/3 mL) mL) subcutaneou subcutaneou s pen s pen injector injector atorvastati atorvastati 2017-10- No Eudora Unknown Unknown n 80 mg n 80 mg 07-31 Abiel UPTON tablet tablet Brandon Wellbutrin Wellbutrin [...] HCl XL 300 HCl XL 300 10-08 MD,Willian mg 24 hr mg 24 hr tablet, tablet, extended extended release release Topamax 50 Topamax 50 2017-10- No Kaitlynn Unknown Unknown mg tablet mg tablet 10-09 ,Geraldo doxycycline doxycycline 2017-10- No Eudora Unknown Unknown monohydrate monohydrate 10-15 ,Abiel 100 mg 100 mg Brandon capsule capsule lithium lithium 2017-10- No Kandy Unknown Unknown carbonate carbonate 11-28 ,Willian 300 mg 300 mg tablet tablet Depakote ER Depakote ER 2017-10- No Kandy Unknown Unknown 500 mg 500 mg 11-28 ,Willian tablet,exte tablet,exte nded nded release release sennosides sennosides 2017-10 No Eudora Unknown Unknown 8.6 8.6 11-28 Abiel UPTON [...] mg tablet tablet diphenhydrA diphenhydrA 2018- No Eudora Unknown Unknown MINE 25 mg MINE 25 mg 3-15 03-15 ,Abiel capsule capsule Brandon clindamycin clindamycin 2018- No Pate Unknown Unknown HCl 300 mg HCl 300 mg 12-25 ,Deb capsule capsule dilTIAZem dilTIAZem No Eudora Unknown Unknown 120 mg 120 mg 06-20 ,Abiel tablet tablet Brandon gabapentin gabapentin 2018- No Eudora Unknown Unknown 300 mg 300 mg 06-20 ,Abiel capsule capsule Brandon lisinopril lisinopril No Eudora Unknown Unknown 20 mg 20 mg 06-20 ,Abiel tablet tablet Brandon multivitami multivitami No Eudora Unknown Unknown n capsule n capsule 06-20 Abiel UPTON clopidogrel clopidogrel No Eudora Unknown Unknown 75 mg 75 mg 06-20 ,Abiel tablet tablet Brandon gabapentin gabapentin No E[place] Unknown Unknown 100 mg 100 mg 06-20 ,Abiel capsule capsule Brandon glimepiride glimepiride No Eudora Unknown Unknown 4 mg tablet 4 mg tablet 06-20 Abiel UPTON carvedilol carvedilol 2017- No Eudora Unknown Unknown 6.25 mg 6.25 mg 06-20 Abiel UPTON tablet tablet Brandon Saphris Saphris 2017- No Kandy Unknown Unknown (black (black 06-20 ,Willian golden) 10 chico) 10 mg mg sublingual sublingual tablet tablet pantoprazol pantoprazol No Eudora Unknown Unknown e 40 mg e 40 mg 06-20 Abiel UPTON tablet,lauryn tablet,lauryn Brandon yed release yed release raNITIdine raNITIdine No Eudora Unknown Unknown 300 mg 300 mg 06-20 Abiel UPTON tablet tablet Brandon Calcium 500 Calcium 500 2017- No Eudora Unknown Unknown With D 500 With D 500 06-20 Abiel UPTON mg (1,250 mg (1,250 Brandon mg)-400 mg)-400 unit tablet unit tablet Vitamin D3 Vitamin D3 2018- No Eudora Unknown Unknown 1,000 unit 1,000 unit 01-01 Abiel UPTON capsule capsule Brandon atorvastati atorvastati 2017- No Eudora Unknown Unknown n 80 mg n 80 mg 10-31 ,Abiel tablet tablet Brandon atorvastati atorvastati 2017-10 No Eudora Unknown Unknown n 80 mg n 80 [...] 24 hour hour carvedilol carvedilol 2017-10- No Eudora Unknown Unknown 6.25 mg 6.25 mg 07-02 ,Abiel tablet tablet Brandon Saphris Saphris 2018- No Kandy Unknown Unknown (black (black 06-27 09- ,Willian golden) 10 golden) 10 mg mg sublingual sublingual tablet tablet Calcium 500 Calcium 500 2018- No Eudora Unknown Unknown With D 500 With D 500 06-27 Abiel UPTON (1,250 mg (1,250 Brandon mg)-400 mg)-400 unit tablet unit tablet Topamax 50 Topamax 50 2017-10- No Kaitlynn Unknown Unknown mg tablet mg tablet 10-09 Geraldo UPTON Depakote ER Depakote ER No Kandy Unknown Unknown 500 mg 500 mg 10-23 ,Willian tablet,exte tablet,exte nded nded release release diphenhydrA diphenhydrA No Eudora Unknown Unknown MINE 25 mg MINE 25 mg - Abiel UPTON capsule capsule Brandon lithium lithium 2018- No Kandy Unknown Unknown carbonate carbonate 11-29 ,Willian 300 mg 300 mg tablet tablet Colace 100 Colace 100 2017-10- No Eudora Unknown Unknown mg capsule mg capsule - Abiel UPTON ipratropium ipratropium No E[place]ora Unknown Unknown bromide bromide 02-19 Abiel UPTON 0.02 % 0.02 % Brandon solution solution for for inhalation inhalation albuterol albuterol No Eudora Unknown Unknown sulfate 2.5 sulfate 2.5 - MD,Abiel mg/3 mL mg/3 mL Brandon (0.083 %) (0.083 %) solution solution for for nebulizatio nebulizatio n n predniSONE predniSONE 2018- No Eudora Unknown Unknown 20 mg 20 mg 12-28 ,Abiel tablet tablet Brandon benzonatate benzonatate No E[place]ora Unknown Unknown 100 mg 100 mg 12-28 MD,Abiel capsule capsule Brandon doxycycline doxycycline 2018- No Eudora Unknown Unknown hyclate 100 hyclate 100 12-28 ,Abiel mg capsule mg capsule Brandon Rexulti 0.5 Rexulti 0.5 2018- No Kandy Unknown Unknown mg tablet mg tablet 01-15 ,Willian Rexulti 1 Rexulti 1 2018- No Kandy Unknown Unknown mg tablet mg tablet 01-22 ,Willian LaMICtal 25 LaMICtal 2018- No Kandy Unknown [...] mg tablet 01-29 ,Willian LaMICtal 25 LaMICtal 2018- No Kandy Unknown [...] Kandy Unknown Unknown 600 mg 600 mg 6- ,Willian tablet tablet Topamax 50 Topamax 50 2018- No Kaitlynn Unknown Unknown mg tablet mg tablet 02-26 ,Geraldo Topamax 50 Topamax 50 2018- No Kaitlynn Unknown Unknown mg tablet mg tablet 04-09 Geraldo UPTON Topamax 50 Topamax 50 2018- Yes Kaitlynn Unknown Unknown mg tablet mg tablet 05-21 ,Geraldo Nelsoni 2 Rexulti 2 2018- Yes Kandy Unknown Unknown mg tablet mg tablet 05-31 ,Willian Lanjob Lantus 2018-10 Yes Pate Unknown Unknown Solostar [...] ,Deb tablet tablet carvedilol carvedilol 2017-10 No Eudora Unknown Unknown 6.25 mg 6.25 mg 0- Abiel UPTON tablet tablet Brandon Latuda 20 Latuda 20 [...]
--- OUTSIDE RECORDS SUMMARY | 2019-09-11 10:07 | XMS REPORT ---
:1960 Author Organization [facility] Care Team Providers Name Role Phone Unavailable Unavailable Unavailable Problems Condition Condition Condition Status Onset Resolution Last Treating Comments Name Details Category Date Date Treatment Clinician Date Pain frequent Pain Mgmt Resolve 2019-02-05 Becca pain d 06-20 10:30:00 (Andrés) 08:20: Walker 00 [id number] Cardio edema Cardiovasc Resolve 2018-08-16 Becca ular d 06-20 10:00:00 (Andrés) 08:20: Walker 00 [id number] Respiratory dyspnea Respirator Resolve 2019-02-05 Becca present y d 06-20 10:30:00 (Andrés) 08:20: Walker 00 [id number] Respiratory lung sounds Respirator Resolve 2019-02-05 Becca deficit y d 06-20 10:30:00 (Andrés) 08:20: Walker 00 [id number] Endo/Gage anti-coagul Endo/Gage Resolve 2018-07-31 Becca ation d 06-20 11:58:00 (Andrés) therapy 08:20: Walker 00 [id number] Integument skin Integument Active Becca integrity 06-20 (Andrés) risk 08:20: Walker [id number] Elimination urinary Eliminatio Resolve 2018-08-16 Becca incontinenc n d 06-20 10:00:00 (Andrés) e 08:20: Walker 00 [id number] Neuro confusion Neuro/Emot Active Becca present ion 06-20 (Andrés) 08:20: Walker 00 [id number] Neuro anxiety Neuro/Emot Active Becca present ion 06-20 (Andrés) 08:20: Walker 00 [id number] Neuro impaired Neuro/Emot Active Becca decision-ma ion 06-20 (Andrés) caty 08:20: Walker [id number] Activity ADL Activity Active Becca assistance 06-20 (Andrés) required 08:20: Walker 00 [id number] Safety cannot be Safety Active Becca left alone 06-20 (Andrés) 08:20: Walker 00 [id number] Safety fall risk Safety Resolve 2019-08-13 Becca factor d 06-20 10:55:00 (Andrés) present 08:20: Walker [id number] Safety risk for Safety Resolve 2019-08-13 Becca hospitaliza d 06-20 10:55:00 (Andrés) tion 08:20: Walker [id number] Medication oral med Meds Resolve 2018-07-31 Becca assistance d 06-20 11:58:00 (Andrés) required 08:20: Walker 00 [id number] Medication potential Meds Resolve 2018-07-31 Becca clinically d 06-20 11:58:00 (Andrés) significant 08:20: Walker medication 00 [id number] issue Musculoskel requires Musculoske Resolve 2019-06-13 Becca etal human letal d 06-20 13:00:00 (Andrés) assist to 08:20: Walker leave home 00 [id number] Musculoskel transfer Musculoske Resolve 2019-06-13 Becca etal assistance letal d 06-20 13:00:00 [place] required 08:20: [id number] Respiratory oxygen Respirator Resolve 2019-02-05 Loreta treatments y d 06-26 10:30:00 Guy-Zos in home 10:28: h [id number] 00 Safety can be left Safety Active Loreta alone for 06-26 Guy-Zos only short 10:28: h [id number] periods 00 Elimination urinary Eliminatio Resolve 2017-102018-08-16 Loreta frequency n d 30 10:00:00 Guy-Zos 11:58: h [id number] 00 Neuro knowledge/s Neuro/Emot Active 2017-10 Loreta kill ion Guy-Zos deficit: cg 11:58: h [id number] 00 Endo/Gage anti-coagul Endo/Gage Resolve 2017-102019-01-29 Loreta ation d 1-15 12:45:00 Guy-Zos therapy 10:00: h [id number] 00 Neuro depressive Neuro/Emot Active 2017-10 Loreta feelings ion 1-15 Guy-Zos present 10:00: h [id number] 00 Medication oral med Meds Resolve 2017-102019-02-05 Loreta assistance d 1-15 10:30:00 [place]-Zos required 10:00: h [id number] 00 Medication injectable Meds Resolve 2017-102019-02-05 Loreta med d 1-15 10:30:00 Guy-Zos assistance 10:00: h [id number] required 00 Medication potential Meds Active 2017-10 Loreta clinically -15 Guy-Zos significant 10:00: h [id number] medication 00 issue Endo/Gage knowledge/s Endo/Gage Resolve [...] treatment y 12-25 Emily in home 09:30: [id number] 00 Endo/Gage glucose Endo/Gage Resolve 2019-01-29 Cherrise tolerance d - 12:45:00 [place] problem 09:30: [id number] 00 Nutrition knowledge/s Nutrition Resolve 2019-01-29 Cherrise kill d 3- 12:45:00 [place] deficit: pt 09:30: [id number] 00 Elimination urinary Eliminatio Resolve 2019-01-15 Cherrise incontinenc n d 12-25 11:25:00 [place] e 09:30: [id number] 00 Elimination urinary Eliminatio Resolve 2019-01-15 Cherrise urgency n d 12-25 11:25:00 Emily 09:30: [id number] 00 Endo/Gage insulin Endo/Gage Resolve 2019-02-05 Cherrise admn d 01-01 10:30:00 Emily dependence 09:55: [id number] 00 Endo/Gage glucose Endo/Gage Resolve 2019-02-05 Cherrise testing d 01-01 10:30:00 Emily dependence 09:55: [id number] 00 Elimination urinary Eliminatio Resolve 2019-01-15 Cherrise frequency n d 01-01 11:25:00 [place] 09:55: [id number] 00 Elimination recurring Eliminatio Resolve 2019-02-05 Cherrise UTI n d 01-01 10:30:00 [place] 09:55: [id number] 00 Respiratory knowledge/s Respirator Resolve 2019-01-08 Marlene [...] anti-coagul Endo/Gage Resolve 2019-08-07 Terra ation d 9 12:10:00 [place] therapy 11:00: RN 00 Pain frequent Pain Mgmt Active Terra pain 06-13 [place] 13:00: RN 00 Nutrition changing Nutrition Active Terra weight/appe 06-13 [place] tite 13:00: RN 00 Elimination urinary Eliminatio Active 2018-10 Tiffani incontinenc n 0-08 Nila e 09:15: [employer] 00 [id number] Elimination constipatio Eliminatio Active 2018-10 Marlene n n 1-06 Carrier RN 12:10: 00 Cardio hypertensio Cardiovasc Active 2018-10 Marlene n ular 1-12 Carrier RN 10:55: 00 Medication injectable Meds Active 2018-10 Marlene med 10-13 Carrier RN assistance 10:55: required 00 Musculoskel requires Musculoske Active 2018-10 Marlene etal human letal 12 Carrier RN assist to 10:55: leave home 00 Allergies, Adverse Reactions, Alerts Allergy Name [...] mg capsule capsule carvedilol carvedilol 2017- No Purdy Unknown Unknown 6.25 mg 6.25 mg 06-20 Abiel UPTON tablet tablet Brandon Vitamin D3 Vitamin D3 No Crowe 2000 Unknown 2,000 unit 2,000 unit Sarah UPTON units capsule capsule dilTIAZem dilTIAZem 2017- No Purdy Unknown Unknown 120 mg 120 mg 06-20 Abiel UPTON tablet tablet Brandon Depakote Depakote No Crowe 1-2 Unknown 500 mg 500 mg Sarah U[facility] tablet,lauryn tablet,lauryn yed release yed release Colace 100 Colace 100 2017- No Purdy Unknown Unknown mg capsule mg capsule 06-20 Abiel U[facility] furosemide furosemide No Crowe 20 mg Unknown 20 mg 20 mg Sarah UPTON tablet tablet gabapentin gabapentin 2017- No Purdy Unknown Unknown 300 mg 300 mg 06-20 Abiel U[facility] capsule Brandon glimepiride glimepiride No Crowe 4 mg Unknown 4 mg tablet 4 mg tablet Sarah U[facility]ON liraglutide liraglutide No Crowe 1 Unknown 0.6 mg/0.1 0.6 mg/0.1 Sarah UPTON injecti mL (18 mg/3 mL (18 mg/3 on mL) mL) subcutaneou subcutaneou s pen s pen injector injector lisinopril lisinopril 2017- No Purdy Unknown Unknown 20 mg 20 mg 06-20 Abile UPTON tablet tablet Brandon Oyster Oyster No Crowe 500 mg Unknown Shell Shell Sarah U[facility] Calcium 500 Calcium 500 500 mg 500 mg calcium calcium (1,250 mg) (1,250 mg) tablet tablet multivitami multivitami 2017- No Purdy Unknown Unknown n capsule n capsule 06-20 [...] Sarah UPTON capsule capsule oxygen oxygen No Purdy Unknown Unknown 06-20 Abiel U[facility] clopidogrel clopidogrel 2017- No Purdy Unknown Unknown 75 mg 75 mg 06-20 Abiel UPTON tablet tablet Brandon desvenlafax desvenlafax 2017- No Purdy Unknown Unknown ine ine 06-20 Abiel U[facility] succinate succinate Brandon ER 100 mg ER 100 mg tablet,exte tablet,exte nded nded release 24 release 24 hr hr diphenhydrA diphenhydrA 2017- No Purdy Unknown Unknown MINE 25 mg MINE 25 mg 06-20 Abiel U[facility] capsule capsule Brandon Depakote ER Depakote ER 2017- No Purdy Unknown Unknown 500 mg 500 mg 06-20 Abiel U[place] tablet,exte tablet,exte Brandon nded nded release release famotidine famotidine 2017- No Purdy Unknown Unknown 40 mg 40 mg 06-20 Abiel UPTON tablet tablet Brandon gabapentin gabapentin 2017- No Purdy Unknown Unknown 100 mg 100 mg 06-20 ,Abiel capsule capsule Brandon glimepiride glimepiride 2017- No Purdy Unknown Unknown 4 mg tablet 4 mg tablet 06-20 Abiel U[facility] Nystop Nystop No Purdy Unknown Unknown 100,000 100,000 06-20 Abiel UPTON unit/gram unit/gram Brandon topical topical powder powder atorvastati atorvastati 2017- No Purdy Unknown Unknown n 80 mg n 80 mg 06-20 ,Abiel tablet tablet Brandon carvedilol carvedilol 2017-10- No Purdy Unknown Unknown 6.25 mg 6.25 mg 07-02 ,Abiel tablet tablet Brandon Colace 100 Colace 100 2017-10- No Purdy Unknown Unknown mg capsule mg capsule 07-02 Abiel UPTON diphenhydrA diphenhydrA 2017-10- No Purdy Unknown Unknown MINE 25 mg MINE 25 mg 12-14 ,Abiel capsule capsule Brandon Depakote ER Depakote ER 2017-10- No Purdy Unknown Unknown 500 mg 500 mg 09-27 ,Abiel tablet,exte tablet,exte Brandon nded nded release release Topamax 50 Topamax 50 2017- No Kandy Unknown Unknown mg tablet mg tablet 06-27 ,Willian Saphris Saphris 2017- No Kandy Unknown Unknown (black (black 06-27 ,Willian golden) 10 golden) 10 mg mg sublingual sublingual tablet tablet pantoprazol pantoprazol 2017- No Purdy Unknown Unknown e 40 mg e 40 mg 06-27 ,Abiel tablet,lauryn tablet,lauryn Brandon yed release yed release raNITIdine raNITIdine 2017- No Purdy Unknown Unknown 300 mg 300 mg 06-27 ,Abiel tablet tablet Brandon Calcium 500 Calcium 500 2017- No Purdy Unknown Unknown With D 500 With D 500 06-27 Abiel UPT[facility] mg (1,250 mg (1,250 Brandon mg)-400 mg)-400 unit tablet unit tablet Vitamin D3 Vitamin D3 2018- No Purdy Unknown Unknown 400 unit 400 unit 06-27 Abiel UPTON capsule capsule Brandon Victoza Victoza No Purdy Unknown Unknown 2-Jeison 0.6 2-Jeison 0.6 06-27 Abiel UPTON mg/0.1 mL mg/0.1 mL Brandon (18 mg/3 (18 mg/3 mL) mL) subcutaneou subcutaneou s pen s pen injector injector atorvastati atorvastati 2017-10- No Purdy Unknown Unknown n 80 mg n 80 mg 0-30 10-30 Abiel UPTON tablet tablet Brandon Wellbutrin Wellbutrin 2017-10- No Kandy Unknown Unknown XL 150 mg XL 150 mg 0-08-08 ,Willian 24 hr 24 hr tablet, tablet, [...] tablet 10-09 ,Geraldo doxycycline doxycycline 2017-10- No Purdy Unknown Unknown monohydrate monohydrate 10-15 Abiel UPTON 100 mg 100 mg Brandon capsule capsule lithium lithium 2017-10- No Kandy Unknown Unknown carbonate carbonate 11-28 ,Willian 300 mg 300 mg tablet tablet Depakote ER Depakote ER 2017-10- No Kandy Unknown Unknown 500 mg 500 mg 11-28 ,Willian tablet,exte tablet,exte nded nded release release sennosides sennosides 2017-10 No Purdy Unknown Unknown 8.6 8.6 2-27 Abiel UPTON mg-docusate mg-docusate Brandon sodium 50 sodium 50 mg tablet mg tablet lithium lithium 2018- No Kandy Unknown Unknown carbonate carbonate 10-23 ,Willian 300 mg 300 mg tablet tablet Depakote ER Depakote ER 2018- No Kandy Unknown Unknown 500 mg 500 mg 10-23 ,Willian tablet,exte tablet,exte nded nded release release lithium lithium 2018- No Akndy Unknown Unknown carbonate carbonate 11-29 ,Willian 300 mg 300 mg tablet tablet diphenhydrA diphenhydrA 2018- No Purdy Unknown Unknown MINE 25 mg MINE 25 mg 12-14 ,Abiel capsule capsule Brandon clindamycin clindamycin 2018- No Pate Unknown Unknown HCl 300 mg HCl 300 mg 12-25 ,Deb capsule capsule dilTIAZem dilTIAZem No Purdy Unknown Unknown 120 mg 120 mg 06-20 ,Abiel tablet tablet Brandon gabapentin gabapentin 2018- No Purdy Unknown Unknown 300 mg 300 mg 06-20 ,Abiel capsule capsule Brandon lisinopril lisinopril No Purdy Unknown Unknown 20 mg 20 mg 06-20 ,Abiel tablet tablet Brandon multivitami multivitami No Purdy Unknown Unknown n capsule n capsule 06-20 Abiel UPTON clopidogrel clopidogrel No Purdy Unknown Unknown 75 mg 75 mg 06-20 ,Abiel tablet tablet Brandon gabapentin gabapentin No Purdy Unknown Unknown 100 mg 100 mg 06-20 Abiel UPTON capsule capsule Brandon glimepiride glimepiride No Purdy Unknown Unknown 4 mg tablet 4 mg tablet 06-20 Abiel UPTON carvedilol carvedilol 2017- No Purdy Unknown Unknown 6.25 mg 6.25 mg 06-20 ,Abiel tablet tablet Brandon Saphris Saphris 2018- No Kandy Unknown Unknown (black (black 06-20 ,Willian golden) 10 golden) 10 mg mg sublingual sublingual tablet tablet pantoprazol pantoprazol No Purdy Unknown Unknown e 40 mg e 40 mg 06-20 ,Abiel tablet,lauryn tablet,lauryn Brandon yed release yed release raNITIdine raNITIdine No Purdy Unknown Unknown 300 mg 300 mg 06-20 ,Abiel tablet tablet Brandon Calcium 500 Calcium 500 2017- No Purdy Unknown Unknown With D 500 With D 500 06-20 ,Abiel mg (1,250 mg (1,250 Brandon mg)-400 mg)-400 unit tablet unit tablet Vitamin D3 Vitamin D3 2018- No Purdy Unknown Unknown 1,000 unit 1,000 unit 01-01 ,Abiel capsule capsule Brandon atorvastajudit atorvastati 2017- No Purdy Unknown Unknown n 80 mg n 80 mg 1 10- ,Abiel tablet tablet Brandon atorvastajudit atorvastati 2017-10 No Purdy Unknown Unknown n 80 mg n 80 [...] 24 hour hour carvedilol carvedilol 2017-10- No Purdy Unknown Unknown 6.25 mg 6.25 mg 07-02 ,Abiel tablet tablet Brandon Saphris Saphris 2018- No Kandy Unknown Unknown (black (black 06-27 ,Willian golden) 10 [place]) 10 mg mg sublingual sublingual tablet tablet Calcium 500 Calcium 500 2018- No Purdy Unknown Unknown With D 500 With D 500 06-27 ,Abiel mg (1,250 mg (1,250 Brandon mg)-400 mg)-400 unit tablet unit tablet Topamax 50 Topamax 50 2017-10- No Kaitlynn Unknown Unknown mg tablet mg tablet 10-09 ,Geraldo Depakote ER Depakote ER No Kandy Unknown Unknown 500 mg 500 mg 10-23 MD,Willian tablet,exte tablet,exte nded nded release release diphenhydrA diphenhydrA No Purdy Unknown Unknown MINE 25 mg MINE 25 mg 3-15 ,Abiel capsule capsule Brandon lithium lithium 2018- No Kandy Unknown Unknown carbonate carbonate 11-29- Willian UPTON 300 mg 300 mg tablet tablet Colace 100 Colace 100 2017-10- No Purdy Unknown Unknown mg capsule mg capsule 0- Abiel UPTON ipratropium ipratropium No Purdy Unknown Unknown bromide bromide - Abiel UPTON 0.02 % 0.02 % Brandon solution solution for for inhalation inhalation albuterol albuterol No Purdy Unknown Unknown sulfate 2.5 sulfate 2.5 02-19 Abiel UPTON mg/3 mL mg/3 mL Brandon (0.083 %) (0.083 %) solution solution for for nebulizatio nebulizatio n n predniSONE predniSONE 2018- No Purdy Unknown Unknown 20 mg 20 mg 12-28- Abiel UPTON tablet tablet Brandon benzonatate benzonatate No Purdy Unknown Unknown 100 mg 100 mg 12-28 Abiel UPTON capsule capsule Brandon doxycycline doxycycline 2018- No Purdy Unknown Unknown hyclate 100 hyclate 100 12-28 04- Abiel UPT[place] mg capsule mg capsule Brandon [...] Pate Unknown Unknown 500 mg 500 mg - MD,Deb LaMICtal 25 LaMICtal 25 2018- No Kandy Unknown Unknown mg tablet mg tablet 01-29 Willian UPTON LaMICtal 25 LaMICtal 2018- No Kandy Unknown Unknown mg tablet mg tablet 01-29- MD,Willian Invokana Invokana 2018- No Pate Unknown [...] mg tablet 05-21 ,Geraldo Rexulti 2 Rexulti 2018- Yes Kandy Unknown Unknown mg tablet mg tablet 05-31 ,Willian Dejesus 2018-10 Yes Pate Unknown Unknown Solostar Solostar 0- MD,Deb U-100 U-100 Insulin 100 Insulin 100 unit/mL (3 unit/mL (3 mL) mL) subcutaneou subcutaneou s pen s pen Topamax 50 Topamax 50 2018-10 Yes Kaitlynn Unknown Unknown mg tablet mg tablet 0- MD,Geraldo Saphris 5 Saphris 2018-10 Yes Kandy Unknown Unknown mg mg 0- ,Willian sublingual sublingual tablet tablet Rexulti 2 Rexulti 2 2018- Yes Kandy Unknown Unknown mg tablet mg tablet 05-31 ,Willian Invokana Invokana No Pate Unknown Unknown 100 mg 100 mg 02-20 MD,Deb tablet tablet carvedilol carvedilol 2017-10 No Purdy Unknown Unknown 6.25 mg 6.25 mg 0- Abiel UPT[facility] tablet tablet Brandon Latuda 20 Latuda 20 2018-10 2019- Yes Kandy Unknown Unknown mg tablet [...]
[2019-09-11 10:11] LABS: CKMB ng/mL 1.5 ng/mL (0.6-6.3)
[2019-09-11 10:35] LABS: TSH (Thyroid Stimulating Horm) 1.82 mcIU/mL (0.34-5.60)
[2019-09-11] MEDS ORDERED: Aspirin 81 mg CHEW TAB* 81 MG TAB.CHEW PO ONE (11:19)
[2019-09-11] MEDS ORDERED: Magnesium Oxide TAB* 400 MG PO ONE (11:21)
[2019-09-11 11:36] LABS: Urine Appearance Cloudy; Urine Bilirubin Negative (Negative); Urine Blood Negative (Negative); Urine Color Yellow; Urine Glucose 3+(>=500 mg/dL) (Negative); Urine Ketones Trace (Negative); Urine Nitrite Negative (Negative); Urine Protein Negative (Negative); Urine Specific Gravity 1.025 (1.010-1.030); Urine Urobilinogen Negative (Negative)
[2019-09-11] MEDS ORDERED: Al Hydrox/Mg Hydrox/Simet LIQ* 30 ML UDC PO PRN (13:17)
[2019-09-11] MEDS ORDERED: Ondansetron TAB* 4 MG PO PRN (13:21)
[2019-09-11] MEDS ORDERED: Dextrose 50% VIAL 50 ml IV PUSH PRN (13:27)
[2019-09-11] MEDS ORDERED: diPHENhydraMINE PO* 25 MG PO PRN (13:27)
[2019-09-11] MEDS ORDERED: Albuterol/Ipratropium NEB.SOL* Albuterol 2.5 MG/Ipratropium 0.5 MG 3 ML INH PRN (13:27)
[2019-09-11] MEDS ORDERED: NS 0.9% 1000 ML** 1,000 ML IV SCH (13:30)
--- NOTE | 2019-09-11 15:34 | HP ---
CC: Dr. Pate; Dr. Dodson; Dr. Sarah Crowe; Dr. Rogers * HISTORY AND PHYSICAL: DATE OF ADMISSION: 09/11/19 PRIMARY CARE PROVIDER: Dr. Pate. CHIEF COMPLAINT: Generalized weakness and chest pain. HISTORY OF PRESENT ILLNESS: Jewels Sol is a 58-year-old female with history of moyamoya disease and morbid obesity, who is known to us from multiple previous hospitalizations. In fact in the year of 2017, she came into the ED via ambulance 16 times, many of those times she was admitted, most of the complaints were either chest pain or weakness related. In 2017, she had 11 ED visits for similar reasons. A couple of those episodes ended up to be a psychiatric admission and most recent psychiatric admission at our facility was in June of 2018. Interestingly enough in 2019, this was the patient's third presentation to the ED, but once again the complaint is very similar and involves both chest pain and generalized weakness. In fact, originally the patient stated that she had right-sided weakness, that was when she reported to the ED. When I am seeing the patient currently, she complains of bilateral leg weakness and denies any right-sided weakness. She stated that her both legs feel "like cotton." She stated that she also feels that her bilateral upper extremities are weak. She has history of chronic left-sided weakness due to her moyamoya disease and her vascular surgeries in her brain. At baseline, she ambulates with a rolling walker and a cane. Today, in the morning, she also noted chest pain. The chest pain was sharp, nonradiating, substernal and would occur intermittently minutes at a time. Currently, she is chest pain-free. She also complains of some worsening shortness of breath and cough overnight. She uses oxygen at home at 2 L. She also has history of chronic recurrent migraines with neurologic symptoms and today she started developing headache. The patient is going to be placed on overnight observation with a diagnosis of chest pain. I suspect the generalized weakness is a consequence of her migraine and she is going to be observed in regards to that. PAST MEDICAL HISTORY: 1. History of moyamoya disease with bihemispheric surgeries and bilateral intracranial bypass surgery at [facility] by Dr. Crowe in 2017. 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 2. History of COPD, oxygen dependent at night at 2 L and p.r.n. during the daytime. 3. Diabetes type 2. 4. Morbid obesity. 5. Peripheral arterial disease. 6. Hypertension. 7. Dyslipidemia. 8. Personality disorder with bipolar disorder, anxiety and depression. 9. History of carotid stenting in 2004. 10. Obstructive sleep apnea, on CPAP at night. 11. Chronic kidney disease, stage 3, due to diabetes. 12. History of chronic diastolic CHF. 13. x2. 14. Appendectomy. 15. History of endometrial ablation. MEDICATIONS AT HOME: Include: 1. Multivitamin 1 tablet daily. 2. Asenapine 5 mg sublingually at bedtime. 3. Lisinopril 20 mg daily. 4. Colace [address]d. 5. Depakote [address] 500 mg b.i.d. 6. Gabapentin 100 mg 3 times a day. 7. Pristiq 150 mg daily. 8. Lamictal 50 mg q.a.m. 9. Zofran 4 mg on a p.r.n. basis. 10. Latuda 60 mg daily. 11. Gabapentin 600 mg at bedtime. 12. DuoNeb nebulizer on a p.r.n. basis. 13. Albuterol sulfate inhaler on a p.r.n. basis. 14. Calcium carbonate/vitamin D 1 tablet daily. 15. Ranitidine 300 mg at bedtime. 16. Victoza 1.8 mg subcutaneously daily. 17. Cardizem CD 120 mg daily. 18. Protonix 40 mg daily. 19. Glimepiride 4 mg daily. 20. Coreg 6.25 mg b.i.d. 21. Benadryl 25 mg at bedtime p.r.n. 22. Plavix 75 mg daily. 23. Topamax ER 50 mg daily. 24. Nystatin cream on a p.r.n. basis. 25. Vitamin D3 1000 units daily. 26. Tessalon 100 mg daily t.i.d. p.r.n. 27. Diflucan 150 mg once p.r.n. 28. Invokana 100 mg daily. 29. Premarin vaginal cream twice a week. 30. Lipitor 80 mg daily. 31. Senna 25 mg daily p.r.n. 32. Fioricet 1 tablet every 8 hours p.r.n. 33. Insulin Lantus 10 units at bedtime. 34. Erenumab 70 mg subcutaneously monthly. ALLERGIES: Include NITROFURANTOIN, MEPERIDINE, CLAVULANIC ACID, MORPHINE. FAMILY HISTORY: Father at the age of 51 from unknown cancer. Mother at the age of 71 secondary to complications of diabetes. SOCIAL HISTORY: The patient lives with her 2 children. She quit smoking in 2004. She has history of 26-pack year smoking. She denies any alcohol or drug use. She is on disability and her healthcare proxy is her daughter, Debra. REVIEW OF SYSTEMS: Please see history of present illness. All the remaining 12 systems were reviewed with the patient and were otherwise negative. PHYSICAL EXAMINATION GENERAL: The patient is a 58-year-old morbidly obese female, who is in no acute distress. The patient is alert and oriented x3. VITAL SIGNS: Blood pressure of 158/72, heart rate of 75 and regular, respiratory rate 22, oxygen saturation 96% on 2 L of oxygen via nasal cannula and 91% on room air, temperature of 98.0. HEENT: Head: Atraumatic, normocephalic. Eyes: Pupils are equal, reactive to light and accommodation. Oropharynx is clear. Mucosa moist. NECK: Supple. No JVD. No bruits bilaterally. RESPIRATORY: Scant wheezes at bilateral bases. CARDIOVASCULAR: Regular rate and rhythm. No murmur. ABDOMEN: Very protuberant, obese, soft, nontender. Bowel sounds are present in all 4 quadrants. EXTREMITIES: There is trace bilateral ankle edema. Pulses are +1 dorsalis pedis palpable. There is no clubbing, no cyanosis. NEUROLOGIC: Speech clear. Cranial nerves II through XII grossly intact. Motor strength is decreased slightly in the left upper and left lower extremity. Please also note that the patient has overall generalized weakness. Overall, her [id number] is not dysmetric and the patient's handgrip is 4+/ 5 on the left and 5 on the right. In regards to evaluation of bilateral lower extremities, her Babinski's is negative. The patient is able to raise her legs above the bed for approximately couple of seconds before lowering them to the bed again. It appears that the left leg is slightly weaker than the right. Once again, due to the patient's morbid obesity and overall deconditioning, I am unsure how of the weakness is related to pure neurologic problem and how much of that is due to deconditioning and obesity. PSYCHIATRIC: Pleasant, cooperative with evaluation, and oriented x3. DIAGNOSTIC STUDIES/LAB DATA: White blood cell count of 7.8, hemoglobin 14.1, hematocrit 42, and platelets 186. Sodium was 139, potassium 4.4, chloride 105, carbon dioxide 24, BUN 16, creatinine 0.81. Liver function tests unremarkable. Glucose level of 270. Troponin of [address], impression: "No intracranial mass or hemorrhage noted." Portable chest x-ray: No acute cardiopulmonary abnormality was noted. The patient's EKG shows sinus rhythm with a heart rate of 56 beats per minute with no significant ST changes. ASSESSMENT AND PLAN: 1. The patient has significant risk factors for heart disease. She presents complaining of rather nonspecific chest pain, but also generalized weakness. At this point, I think it is worthwhile for us to evaluate her with a stress test again. Her last stress test was in 2017. Due to her problems with mobility at baseline, she is not an exercise stress test candidate. She is going to be placed for pharmacologic stress test in the morning. 2. The patient neurologically appears to be at baseline plus generalized weakness. I do not believe that the generalized weakness is related to pure neurologic symptoms. It is possibly cardiac related and deconditioning. Nevertheless, the patient is going to be placed on neuro checks every 2 hours. I will also ask Physical Therapy and Occupational Therapy to see the patient in evaluation. We will continue the patient on Plavix that she had been on as an outpatient. At this point, I do not think she needs to be placed on additional antiplatelet agent, although she stated that she was on it in the past, but her criminal defense attorney stopped it and that was an aspirin. 3. For obstructive sleep apnea, the patient is going to be continued on CPAP at night. 4. For her chronic hypoxemic respiratory failure, the patient is going to be on oxygen as previously prescribed at home. 5. For her chronic obstructive pulmonary disease, the patient is not in exacerbation and her inhalers are going to be continued. 6. For her psychiatric problems, her antipsychotics are going to be continued. 7. For diabetes medications, the patient is going to be continued on Lantus insulin only plus insulin sliding scale. Her remaining hypoglycemics are going to be held. 8. For DVT prophylaxis, the patient is going to be placed on heparin subcutaneously. 9. The patient's code status. Her surrogate is as mentioned above. TIME SPENT: Approximately 75 minutes was spent on admission of this patient, more than half that time was spent [id number] with the patient during the interview and physical exam. [id number]/[facility] [place] #: [id number] SAURAV
[2019-09-11] MEDS: Gabapentin CAP(*) 100 MG PO SCH (15:49)
[2019-09-11] MEDS: Heparin VIAL(*) 5000 UNITS/ML VIAL (FIVE THOUSAND) SUBCUT SCH ×2 (15:49→23:32)
[2019-09-11] MEDS: Albuterol/Ipratropium NEB.SOL* Albuterol 2.5 MG/Ipratropium 0.5 MG 3 ML INH SCH ×2 (15:52→20:17)
[2019-09-11] MEDS: Insulin LISPRO* 1 UNITS UNIT SUBCUT SCH ×2 (16:18→22:22)
[2019-09-11] MEDS: Topiramate TAB(*) 25 MG PO SCH ×2 (18:16→21:14)
[2019-09-11] MEDS: Docusate CAP* 100 MG PO SCH ×2 (21:13→21:14)
[2019-09-11] MEDS: Gabapentin CAP(*) 300 MG PO SCH (21:13)
[2019-09-11] MEDS: Carvedilol TAB* 6.25 MG PO SCH (21:13)
[2019-09-11] MEDS: Divalproex DR TAB(*) 500 MG PO SCH (21:14)
[2019-09-11] MEDS: Senna TAB 8.6 mg* TAB PO PRN (22:21)
[2019-09-11] MEDS: ASENAPINE 5 MG SL SCH (22:22)
[2019-09-11] MEDS: Diltiazem CD CAP* 120 MG PO SCH (22:22)
[2019-09-11] MEDS: Insulin GLARGINE(*) 1 UNITS UNIT SUBCUT SCH (22:22)
[2019-09-12] MEDS: Butalb/Acetamin/Caff TAB* 1 TAB PO PRN ×2 (01:12→17:59)
[2019-09-12] MEDS: MUPIROCIN 2% TOPICAL SCH ×4 (02:18→21:34)
[2019-09-12 05:52] LABS: Hematocrit 41 % (35-47); Hemoglobin 13.7 g/dL (12.0-16.0); Mean Corpuscular HGB Conc 34 g/dL (31-36); Mean Corpuscular Hemoglobin 27 pg (27-31); Mean Corpuscular Volume 81 fL (80-97); Red Blood Count 5.06 10^6 /uL (3.70-4.87); White Blood Count 8.3 10^3/uL (3.5-10.8)
[2019-09-12] MEDS: Heparin VIAL(*) 5000 UNITS/ML VIAL (FIVE THOUSAND) SUBCUT SCH ×3 (06:01→21:33)
[2019-09-12 06:04] LABS: BUN/Creatinine Ratio 19.4 (8-20); Calcium 8.6 mg/dL (8.6-10.3); EGFR African American 110.2 (>60); Potassium 4.4 mmol/L (3.5-5.0)
[2019-09-12 06:11] LABS: ABS Basophils 0.1 10^3/ul (0-0.2); ABS Eosinophils 0.2 10^3/ul (0-0.6); ABS Monocytes 0.6 10^3/ul (0-0.8); ABS Neutrophils 4.4 10^3/ul (1.5-7.7); ABS Nucleated RBC 0.1 10^3/ul; Eosinophil % 1.9 %; Lymphocyte % 36.4 %; Mean Platelet Volume 8.8 fL (7.4-10.4); Nucleated Red Blood Cells % 0.8; Platelet Count 181 10^3/uL (150-450); Red Cell Distribution Width 19 % (10-15)
[2019-09-12] MEDS ORDERED: Regadenoson* 0.4 MG/5 ML SYRINGE ONE (07:34)
[2019-09-12] MEDS ORDERED: Aminophylline IV* 25 MG/ML 10 ML VIAL ONE (07:34)
[2019-09-12] MEDS: Albuterol/Ipratropium NEB.SOL* Albuterol 2.5 MG/Ipratropium 0.5 MG 3 ML INH SCH (07:48)
[2019-09-12] MEDS ORDERED: Influenza VAC *QUAD* 2019-20* 0.5 ML SYRINGE IM ONE (09:00)
[2019-09-12] MEDS: Insulin LISPRO* 1 UNITS UNIT SUBCUT SCH ×4 (09:31→21:49)
[2019-09-12] MEDS: Atorvastatin* 80 MG TAB PO SCH (11:11)
[2019-09-12] MEDS: Docusate CAP* 100 MG PO SCH ×4 (11:12→21:28)
[2019-09-12] MEDS: Lisinopril TAB* 10 MG PO SCH (11:12)
[2019-09-12] MEDS: Divalproex DR TAB(*) 500 MG PO SCH ×2 (11:12→21:27)
[2019-09-12] MEDS: lamoTRIgine TAB(*) 25 MG PO SCH (11:12)
[2019-09-12] MEDS: Clopidogrel TAB* 75 MG PO SCH (11:12)
[2019-09-12] MEDS: Carvedilol TAB* 6.25 MG PO SCH ×2 (11:13→21:27)
[2019-09-12] MEDS: Pantoprazole TAB * 40 MG TAB PO SCH (11:13)
[2019-09-12] MEDS: DESVENLAFAXINE 50 MG PO SCH (11:17)
[2019-09-12] MEDS: Lurasidone(*) 20 MG TAB PO SCH (11:18)
[2019-09-12] MEDS: Gabapentin CAP(*) 100 MG PO SCH ×3 (11:23→17:38)
--- NOTE | 2019-09-12 13:03 | PN ---
Subjective Date of Service: 09/12/19 Interval History: Pt feels well, denies CP, generalized weakness improved. Objective Active Medications: Acetaminophen (Tylenol Tab*) 650 mg PO Q4H PRN PRN Reason: PAIN-MODERATE/TEMP >/= 100.4 Acetaminophen/Butalbital/Caffeine (Fioricet Tab*) 1 tab PO Q8H PRN PRN Reason: HEADACHE Last Admin: 09/12/19 01:12 Dose: 1 tab Al Hydrox/Mg Hydrox/Simethicone (Maalox Plus*) 30 ml PO Q6H PRN PRN Reason: INDIGESTION Albuterol/Ipratropium (Duoneb (Albuterol 2.5 Mg/Ipratropium 0.5 Mg)) 1 neb INH Q4H PRN PRN Reason: SOB/WHEEZING Asenapine (Saphris(Nf)) 5 mg SL BEDTIME [facility] Last Admin: 09/11/19 22:22 Dose: Not Given Atorvastatin Calcium (Lipitor*) 80 mg PO DAILY [facility] Last Admin: 09/12/19 11:11 Dose: 80 mg Benzonatate (Tessalon Cap*) 100 mg PO TID PRN PRN Reason: COUGH Carvedilol (Coreg Tab*) 6.25 mg PO BID [facility] Last Admin: 09/12/19 11:13 Dose: 6.25 mg Clopidogrel Bisulfate (Plavix Tab*) 75 mg PO DAILY [facility] Last Admin: 09/12/19 11:12 Dose: 75 mg Desvenlafaxine Succinate (Pristiq (Nf)) 150 mg PO DAILY [facility] Last Admin: 09/12/19 11:17 Dose: Not Given Dextrose (Dextrose 50% Vial 50 Ml*) 25 ml IV PUSH .FOR FS < 60 - SS PRN PRN Reason: FS < 60 Diltiazem HCl (Cardizem Cd Cap*) 120 mg PO DAILY@2100 [facility] Last Admin: 09/11/19 22:22 Dose: 120 mg Diphenhydramine HCl (Benadryl Po*) 25 mg PO BEDTIME PRN PRN Reason: INSOMNIA Divalproex Sodium (Depakote Dr Tab(*)) 500 mg PO BID [facility] Last Admin: 09/12/19 11:12 Dose: 500 mg Docusate Sodium (Colace Cap*) 100 mg PO BID [facility] Last Admin: 09/12/19 11:12 Dose: 100 mg Docusate Sodium (Colace Cap*) 100 mg PO BID [facility] Last Admin: 09/12/19 11:13 Dose: Not Given Gabapentin (Neurontin Cap(*)) 100 mg PO 0800,1200,1600 [facility] Last Admin: 09/12/19 11:23 Dose: 100 mg Gabapentin (Neurontin Cap(*)) 600 mg PO BEDTIME [facility] Last Admin: 09/11/19 21:13 Dose: 600 mg Heparin Sodium (Porcine) (Heparin Vial(*)) 5,000 units SUBCUT Q8HR [facility] Last Admin: 09/12/19 06:01 Dose: 5,000 units Insulin Glargine (Lantus(*)) 10 units SUBCUT BEDTIME [facility] Last Admin: 09/11/19 22:22 Dose: 10 units Insulin Human Lispro (Humalog*) 0 units SUBCUT ACHS [facility]; Protocol Last Admin: 09/12/19 12:46 Dose: 2 units Lamotrigine (Lamictal Tab(*)) 50 mg PO QAM [facility] Last Admin: 09/12/19 11:12 Dose: 50 mg Lisinopril (Prinivil Tab*) 20 mg PO DAILY [facility] Last Admin: 09/12/19 11:12 Dose: 20 mg Lurasidone HCl (Latuda) 60 mg PO DAILY [facility] Last Admin: 09/12/19 11:18 Dose: Not Given Mupirocin (Bactroban 2 % Oint*) 1 applic TOPICAL TID [facility] Last Admin: 09/12/19 11:15 Dose: 1 applic Nystatin (Nystatin Cream*) 1 applic TOPICAL BID [facility] Ondansetron HCl (Zofran Tab*) 4 mg PO Q6H PRN PRN Reason: NAUSEA/VOMITING Pantoprazole Sodium (Protonix Tab*) 40 mg PO QAM [facility] Last Admin: 09/12/19 11:13 Dose: 40 mg Senna (Senokot 8.6 Mg Tab*) 1 tab PO DAILY PRN PRN Reason: CONSTIPATION Last Admin: 09/11/19 22:21 Dose: 1 tab Topiramate (Topamax(*)) 25 mg PO BEDTIME [facility] Vital Signs - 8 hr 09/12/19 09/12/19 09/12/19 07:53 11:15 11:23 Temperature 98 F Pulse Rate 80 72 Respiratory 16 20 18 Rate Blood Pressure 140/50 (mmHg) O2 Sat by Pulse 97 99 Oximetry Oxygen Devices in Use Now: Nasal Cannula Appearance: 58 yo obese F in nAD, aAOx3 Eyes: No Scleral Icterus, PERRLA Ears/Nose/Mouth/Throat: NL Teeth, Lips, Gums, Mucous Membranes Moist Neck: NL Appearance and Movements; NL JVP, Trachea Midline Respiratory: Symmetrical Chest Expansion and Respiratory Effort, - - scant wheezes at LML Cardiovascular: NL Sounds; No Murmurs; No JVD, RRR Abdominal: NL Sounds; No Tenderness; No Distention Lymphatic: No Cervical Adenopathy Extremities: - - trace pedal edema b/l Skin: No Nodules or Sclerosis Neurological: Alert and Oriented x 3, NL Muscle Strength and Tone Result Diagrams: 09/12/19 05:40 09/12/19 05:40 Assess/Plan/Problems-Billing Assessment: 58 year old with a complicated medical history of Moyamoya disease, EC-IC bypass on the left. Per CTA, right IC occluded. She had an episode of generalized weakness now completely resolved. She has a history of multiple admissions with similar neurologic presentation. She does have a history of chronic left sided weakness/numbness which is intermittent. Dr. Hylton has evaluated her in the past for seizures, workup showed no clear cut epileptiform cause for her symptoms and my suspicion is low for seizures. she had an abnormal cardiac stress test 2017, presented to ED c/o CP also in addition to generalized weakness - OBV for 2 days stress test Also h/o COPD (o2 at 2L at night and prn), DM2(on insulin), HTN, abn stress- last in 12/17, JOSIE(on CPAP) - Patient Problems (1) CAD (coronary artery disease) Comment: here, for CP r/o trops neg, CP free today awaiting stress test result tomorrow cont Plavix, BB, statin (2) COPD (chronic obstructive pulmonary disease) Comment: not in exacerbation cont nebs 02 prn (3) Diabetes Comment: Continue SS Lispro, lantus (4) Left-sided weakness Comment: Patient has left sided weakness at baseline (5) Moyamoya Comment: - Has Neurosurgeon in [place], had intracranial bypass x2 Sees Dr. Calderón as outpt. (6) DVT prophylaxis Comment: SQ heparin Status and Disposition: OBV
[2019-09-12] MEDS: Acetaminophen TAB* 325 MG PO PRN ×2 (17:58→21:50)
[2019-09-12] MEDS ORDERED: Topiramate TAB(*) 25 MG PO SCH (21:00)
[2019-09-12] MEDS: Diltiazem CD CAP* 120 MG PO SCH (21:27)
[2019-09-12] MEDS: Gabapentin CAP(*) 300 MG PO SCH (21:28)
[2019-09-12] MEDS: ASENAPINE 5 MG SL SCH (21:28)
[2019-09-12] MEDS: Nystatin CREAM* 15 GM TUBE TOPICAL SCH (21:34)
[2019-09-12] MEDS: Insulin GLARGINE(*) 1 UNITS UNIT SUBCUT SCH (21:48)
[2019-09-12] MEDS: Benzonatate CAP* 100 MG PO PRN (21:50)
[2019-09-13] MEDS: Heparin VIAL(*) 5000 UNITS/ML VIAL (FIVE THOUSAND) SUBCUT SCH ×2 (07:31→14:42)
[2019-09-13] MEDS: Atorvastatin* 80 MG TAB PO SCH (08:12)
[2019-09-13] MEDS: lamoTRIgine TAB(*) 25 MG PO SCH (08:13)
[2019-09-13] MEDS: Pantoprazole TAB * 40 MG TAB PO SCH (08:13)
[2019-09-13] MEDS: Docusate CAP* 100 MG PO SCH ×2 (08:13→08:23)
[2019-09-13] MEDS: Clopidogrel TAB* 75 MG PO SCH (08:13)
[2019-09-13] MEDS: Carvedilol TAB* 6.25 MG PO SCH (08:13)
[2019-09-13] MEDS: Divalproex DR TAB(*) 500 MG PO SCH (08:14)
[2019-09-13] MEDS: Lisinopril TAB* 10 MG PO SCH (08:14)
[2019-09-13] MEDS: Lurasidone(*) 20 MG TAB PO SCH (08:15)
[2019-09-13] MEDS: DESVENLAFAXINE 50 MG PO SCH (08:22)
[2019-09-13] MEDS: Insulin LISPRO* 1 UNITS UNIT SUBCUT SCH ×2 (10:00→12:03)
[2019-09-13] MEDS: Senna TAB 8.6 mg* TAB PO PRN (10:47)
[2019-09-13] MEDS: Benzonatate CAP* 100 MG PO PRN (10:47)
[2019-09-13] MEDS: Gabapentin CAP(*) 100 MG PO SCH ×2 (10:47→12:03)
[2019-09-13] MEDS: Nystatin CREAM* 15 GM TUBE TOPICAL SCH (10:48)
[2019-09-13] MEDS: MUPIROCIN 2% TOPICAL SCH ×2 (10:48→14:42)
[2019-09-13 12:33] VITALS: BP 127/48
--- NOTE | 2019-09-13 12:58 | DS ---
CC: Dr. Deb Pate; Dr. Sarah Crowe; Dr. Raf Rogers; Dr. Lucas Chavarria * DISCHARGE SUMMARY: DATE OF ADMISSION: 09/11/19 DATE OF DISCHARGE: 09/13/19 PRIMARY CARE PROVIDER: Dr. Pate. DISPOSITION ON DISCHARGE: Home. CONDITION ON DISCHARGE: Stable. DISCHARGE DIAGNOSES: 1. Generalized weakness that resolved spontaneously, likely somatization of this patient who presented with chest pain. 2. Chest pain with low-probability cardiac stress test documented on 09/13/19. Please note that the stress test did show "a suggestion of potential small region of reversible stress-induced ischemia in the mid to basilar segment of the lateral wall." This test was assessed as low risk. SECONDARY DIAGNOSES: 1. History of chronic left-sided weakness, mild. 2. History of moyamoya disease with bihemispheric surgeries and bilateral intracranial bypass surgeries in the past. 3. History of chronic obstructive pulmonary disease, oxygen dependent at night and during the daytime as needed. 4. Diabetes type 2. 5. Morbid obesity. 6. Peripheral arterial disease. 7. Hypertension. 8. Dyslipidemia. 9. Personality disorder with bipolar disorder, anxiety, and depression. 10. Carotid stenting in 2004. 11. Obstructive sleep apnea, on CPAP at night. 12. Chronic kidney disease stage 3 due to diabetes. 13. Chronic diastolic congestive heart failure. 14. Appendectomy. 15. section. 16. Endometrial ablation in the past. MEDICATIONS AT DISCHARGE: Are unchanged from admission and include: 1. Multivitamin 1 tablet daily. 2. Asenapine 5 mg sublingually at bedtime. 3. Lisinopril 20 mg daily. 3. Colace 100 mg b.i.d. 4. Depakote ER 500 mg b.i.d. 5. Gabapentin 100 mg 3 times a day. 6. Pristiq 150 mg daily. 7. Lamictal 50 mg q.a.m. 8. Zofran 4 mg on a p.r.n. basis. 9. Latuda 60 mg daily. 10. Gabapentin 600 mg at bedtime. 11. DuoNeb nebulizer on a p.r.n. basis. 12. Albuterol inhaler on a p.r.n. basis. 13. Calcium carbonate/vitamin D 1 tablet daily. 14. Ranitidine 300 mg at bedtime. 15. Victoza 1.8 mg subcutaneously daily. 16. Cardizem CD 120 mg daily. 17. Protonix 40 mg daily. 18. Glimepiride 4 mg b.i.d. 19. Coreg 6.25 mg b.i.d. 20. Benadryl 25 mg at bedtime p.r.n. 21. Plavix 75 mg daily. 22. Topamax ER 50 mg daily. 23. Nystatin cream on a p.r.n. basis. 24. Vitamin D3 at 1000 units daily. 25. Tessalon 100 mg 3 times a day p.r.n. 26. Diflucan 150 mg once p.r.n. 27. Invokana 100 mg daily. 28. Premarin vaginal cream twice a week. 29. Lipitor 80 mg daily. 30. Senna 25 mg daily. 31. Fioricet 1 tablet every 8 hours p.r.n. 32. Insulin Lantus 10 units at bedtime. 33. Erenumab 70 mg subcutaneously monthly. LABORATORY DATA AND STUDIES PERFORMED DURING THIS HOSPITAL STAY: Included: On 09/10/19: White blood cell count of 8.3, hemoglobin 13.7, hematocrit 41, and platelets 181. Sodium 187, potassium 4.4, chloride 105, carbon dioxide 24, BUN 13, creatinine 0.67. The patient's troponins throughout the patient's hospital stay were 0. The patient's nuclear medicine cardiac stress test documented on 09/12/19 and please note that this stress test was pharmacologic. Impression: "Assessment is limited due to morbid obesity and absence of CT attenuation correction. There is a suggestion of potential small region of reversible stress-induced ischemia at the mid to basilar segments of the lateral wall. This represents a new finding compared with the 12/05/17 exam. Normal left ventricular wall motion and estimated ejection fraction with normal range estimated left ventricular end-diastolic volume." The assessment was low risk based on nuclear assessment. HOSPITALIZATION COURSE: Jewels Sol is a 58-year-old female who presents to our hospital frequently for various complaints; usually it is either one-sided weakness or chest pain. This time she came in for both. She complained of generalized weakness, bilateral lower extremity weakness and that her legs felt like "wood," and she also complained of chest pain. Her generalized weakness was nonfocal and the patient is known to have frequent complaints similar to those. She does have mild chronic left-sided weakness and usually uses a walker. Due to her chest pain and that she had a questionable stress test a year ago she was placed on observation on telemetry monitored bed to rule out troponin. Due to her morbid obesity, she needed to stay an additional day for resting images of her stress test. Her troponins continued to be negative throughout her hospital stay and she was asymptomatic from a cardiac standpoint. Her bilateral leg weakness resolved overnight. I suspect that frequently the patient may have somatization due to her generalized physical complaints with her neurological complaints in addition. At this point, it is possible that the patient's bilateral leg weakness occurred as a response to the patient's chest pain and being stressed out about that. Nevertheless, the patient underwent a pharmacologic stress test, which was estimated as low risk, although there was a questionable area of reversible ischemia. I discussed it with the patient that due to her short duration of chest pain and that it did not recur with no troponin elevation at all, she will not be a candidate for cardiac catheterization at this point, but it is important for the patient to continue on with her diet since her BMI is now 50 as well as exercise, to continue taking her medications, and specifically try to control her diabetes better. The patient is going to follow up with her primary care provider in approximately 4 to 7 days. She is also asked to call Dr. Chavarria, her sales clerk food, and schedule a sooner appointment in approximately 1 to 2 months to follow up on the stress test. PHYSICAL EXAMINATION: At the time of discharge: Blood pressure is 149/57, heart rate of 72 and regular, respiratory rate 18, oxygen saturation 86% on 2 L of oxygen via nasal cannula, and temperature 97.6. General: The patient is a pleasant 58- year-old female who is in no acute distress. The patient is alert and oriented x3. HEENT: Head atraumatic and normocephalic. Eyes: Pupils are equal, round, and reactive to light and accommodation. Oropharynx clear. Mucosa moist. Neck: Supple. No JVD. No bruits bilaterally. Cardiovascular: Regular rate and rhythm. No murmur. Respiratory: Clear to auscultation bilaterally. Abdomen: Soft and nontender. Bowel sounds present in all 4 quadrants. Extremities: There is trace bilateral ankle edema. Pulses are +1 bilaterally. There is no clubbing and no cyanosis. Neurologic: On neuro evaluation, speech is clear. Cranial nerves II through XII grossly intact. Motor strength is minimally decreased in the left upper and left lower extremity , but the patient is able to ambulate with a roller walker without any problems. Those findings are at the patient's baseline. She was discharged to home and condition on discharge was stable. Please note that this is a short summary of the patient's hospital stay. Please refer to further medical records for details. TIME SPENT: Approximately 35 minutes were spent on the patient's discharge. [id number]/[facility] #: [id number] SAURAV
== END 2019-09-13 14:44 | disposition home or self-care (01) ==
LOC: ED 09:07 → MEDTELE 13:17
PROVIDERS: ADMIT Internal Medicine; ATTEND Internal Medicine
DX: R53.1 Weakness (principal); R07.9 Chest pain, unspecified; J44.9 Chronic obstructive pulmonary disease, unspecified; I67.5 Moyamoya disease; E11.22 Type 2 diabetes mellitus with diabetic chronic kidney disease; I13.0 Hypertensive heart and chronic kidney disease with heart failure and stage 1 through stage 4 chronic kidney disease, or unspecified chronic kidney disease; N18.3 Chronic kidney disease, stage 3 (moderate); I50.32 Chronic diastolic (congestive) heart failure; I25.10 Atherosclerotic heart disease of native coronary artery without angina pectoris; Z79.4 Long term (current) use of insulin; E66.01 Morbid (severe) obesity due to excess calories; I73.9 Peripheral vascular disease, unspecified; E78.5 Hyperlipidemia, unspecified; F31.9 Bipolar disorder, unspecified; Z95.5 Presence of coronary angioplasty implant and graft; G47.33 Obstructive sleep apnea (adult) (pediatric); Z79.899 Other long term (current) drug therapy; R94.31 Abnormal electrocardiogram [ECG] [EKG]; I45.10 Unspecified right bundle-branch block; Z23 Encounter for immunization
CPT/HCPCS: 36415; 70450; 71045; 78452; 80048; 80053; 81003; 82550; 82553; 83735; 83880; 84443; 84484; 85025; 85610; 85730; 90471; 90686; 93005; 93017; 94640; 94660; 96372; 99284; A9270-GY; A9502; G0008; G0378; G8978-GP-CH; G8979-GP-CH; G8980-GP-CH; J0280; J1644; J2785

== ENCOUNTER 2019-12-01 10:13 | Observation (INO) | payer MEDICARE, MEDICAID ==
[2019-12-01] MEDS ORDERED: NS 0.9% 1000 ML** 1,000 ML IV ONE (10:41)
[2019-12-01] MEDS ORDERED: Iodixanol* (CONTRAST) 320 MG/ML 100 ML SDV IV ONE (10:45)
--- NOTE | 2019-12-01 10:45 | ED ---
Neurological HPI - HPI Summary HPI Summary: 59 y/o female presented to [facility] after a migraine KHANNA at 0300 this morning, when she was last known well. She went back to sleep and when she woke up at 0800 she took her medication. At 0845 she had difficulty speaking, noting slurring words and inability to think. Caregiver notes pt is speaking more slowly than normal. She is weak and dizzy. Pt notes hx 2 CVAs, the most recent on 01/02/17. She has also had multiple brain surgeries. Pt also has DM and COPD. She notes hx of Moyamoya Disease and sees Dr. Calderón as well as Ethan Crowe in [place]. TPA was discussed and pt is not a candidate due to brain surgeries. Medications reviewed. Allergies noted. Home Medications Medication Instructions Recorded Confirmed Type Docusate CAP* [Colace Cap*] 100 mg PO BID 02/10/18 09/11/19 History Gabapentin CAP(*) [Neurontin 100 100 mg PO TID 02/10/18 09/11/19 History mg CAP(*)] Liraglutide (NF) [Victoza (NF)] 1.8 mg SUBCUT DAILY 02/10/18 09/11/19 History Lisinopril TAB* [Prinivil TAB 10 20 mg PO DAILY 02/10/18 09/11/19 History MG*] Cholecalciferol (Vitamin D3) 1,000 unit PO DAILY 04/19/18 09/11/19 History [Vitamin D3] Multivitamins/Minerals TAB* 1 tab PO QAM 04/19/18 09/11/19 History [Theragran/minerals TAB*] Glimepiride (NF) 4 mg PO DAILY tab 06/19/18 09/11/19 Rx Asenapine(NF) [Saphris(NF)] 5 mg SL BEDTIME 07/27/18 09/11/19 History Atorvastatin* [Lipitor 80 MG*] 80 mg PO DAILY 07/27/18 09/11/19 History Carvedilol TAB* [Coreg TAB*] 6.25 mg PO BID 07/27/18 09/11/19 History Diltiazem CD CAP* [Cardizem CD 120 mg PO DAILY 07/27/18 09/11/19 History CAP*] Ondansetron TAB* [Zofran 4 MG Tab*] 4 mg PO Q6H PRN 07/27/18 09/11/19 History Pantoprazole TAB * [Protonix TAB*] 40 mg PO QAM 07/27/18 09/11/19 History Ranitidine TAB (NF) [Zantac TAB 300 mg PO BEDTIME 07/27/18 09/11/19 History (NF)] Calcium Carbonate/Vitamin D3 1 tab PO DAILY 10/08/18 09/11/19 History [Oyster Shell Calcium Tablet] Desvenlafaxine(NF) [Pristiq(NF)] 150 mg PO QAM 10/08/18 09/11/19 History Gabapentin CAP(*) [Neurontin 300 600 mg PO BEDTIME 10/08/18 09/11/19 History CAP(*)] lamoTRIgine TAB(*) [Lamictal 50 mg PO QAM 04/26/19 09/11/19 History TAB(*)] Albuterol 2.5MG/3ML (0.083%)* 2.5 mg INH Q4H PRN 09/11/19 09/11/19 History [Ventolin 2.5 MG/3 ML NEB.SANDEEP*] Albuterol Sulfate [Proventil Hfa] 2 puff INH QID PRN 09/11/19 09/11/19 History Benzonatate CAP* [Tessalon 100 MG 100 mg PO TID PRN 09/11/19 09/11/19 History CAP*] Butalb/Acetamin/Caff TAB* 1 tab PO Q8H PRN 09/11/19 09/11/19 History [Fioricet TAB*] Canagliflozin (NF) [Invokana (NF)] 100 mg PO DAILY 09/11/19 09/11/19 History Clopidogrel TAB* [Plavix TAB*] 75 mg PO DAILY 09/11/19 09/11/19 History Conjugated Estrogens VAG CM* 1 applic VAGINAL .2X/WEEK 09/11/19 09/11/19 History [Premarin VAG CREAM*] Divalproex DR TAB(*) [Depakote DR 500 mg PO BID 09/11/19 09/11/19 History TAB(*)] Erenumab-Aooe [Aimovig 70 mg SUBCUT MONTHLY 09/11/19 09/11/19 History Autoinjector] Fluconazole 150 MG TAB* [Diflucan 150 mg PO ONCE 09/11/19 09/11/19 History 150 MG TAB*] Genahist 25 mg PO BEDTIME PRN 09/11/19 09/11/19 History Insulin GLARGINE(*) [Lantus 100 10 units SUBCUT BEDTIME 09/11/19 09/11/19 History units/ml 10 ml VIAL (*)] Ipratropium 0.5MG/2.5ML NEB* 1 vial INH QID PRN 09/11/19 09/11/19 History [Atrovent 0.5 MG NEB.SANDEEP*] Lurasidone(*) [Latuda] 60 mg PO DAILY 09/11/19 09/11/19 History Multivitamins/Minerals TAB* 1 tab PO DAILY 09/11/19 09/11/19 History [Theragran/minerals TAB*] Nystatin CREAM* [Nystatin Cream*] 1 applic TOPICAL .3-4X/DAY 09/11/19 09/11/19 History Sennosides [Senna] 25 mg PO DAILY PRN 09/11/19 09/11/19 History Topiramate [Topiramate ER 50 mg 50 mg PO QPM 09/11/19 09/11/19 History cap] - History of Current Complaint Chief Complaint: EDNeurologicalDeficit Stated Complaint: STROKE SYMPTOMS Time Seen by Provider: 12/01/19 10:27 Hx Obtained From: Patient Hx Last Menstrual Period: not since 2009 Onset/Duration: Started hours ago, Still Present Current Severity: Mild Pain Intensity: 2 Pain Scale Used: 0-10 Numeric Character: Weak, Dizzy, Other: - slow speech - Additional Pertinent History Primary Care Physician: MARCEL - Allergy/Home Medications Allergies/Adverse Reactions: Allergies Allergy/AdvReac Type Severity Reaction Status Date / Time nitrofurantoin Allergy Severe Rash Verified 12/01/19 10:23 meperidine Allergy Intermediate Headache Verified 12/01/19 10:23 clavulanic acid AdvReac Intermediate Nausea And Verified 12/01/19 10:23 Vomiting morphine AdvReac Intermediate Nausea Verified 12/01/19 10:23 Home Medications: Home Medications Docusate CAP* [Colace Cap*] 100 mg PO BID 02/10/18 [History Confirmed 12/01/19] Gabapentin CAP(*) [Neurontin 100 mg CAP(*)] 100 mg PO TID 02/10/18 [History Confirmed 12/01/19] Liraglutide (NF) [Victoza (NF)] 1.8 mg SUBCUT DAILY 02/10/18 [History Confirmed 12/01/19] Lisinopril TAB* [Prinivil TAB 10 MG*] 20 mg PO DAILY 02/10/18 [History Confirmed 12/01/19] Cholecalciferol (Vitamin D3) [Vitamin D3] 1,000 unit PO DAILY 04/19/18 [History Confirmed 12/01/19] Multivitamins/Minerals TAB* [Theragran/minerals TAB*] 1 tab PO QAM 04/19/18 [ History Confirmed 12/01/19] Glimepiride (NF) 4 mg PO DAILY tab 06/19/18 [Rx Confirmed 12/01/19] Asenapine(NF) [Saphris(NF)] 5 mg SL BEDTIME 07/27/18 [History Confirmed 12/01/19 ] Atorvastatin* [Lipitor 80 MG*] 80 mg PO DAILY 07/27/18 [History Confirmed ] Carvedilol TAB* [Coreg TAB*] 6.25 mg PO BID 07/27/18 [History Confirmed 12/01/19 ] Diltiazem CD CAP* [Cardizem CD CAP*] 120 mg PO DAILY 07/27/18 [History Confirmed 12/01/19] Ondansetron TAB* [Zofran 4 MG Tab*] 4 mg PO Q6H PRN 07/27/18 [History Confirmed 12/01/19] Pantoprazole TAB * [Protonix TAB*] 40 mg PO QAM 07/27/18 [History Confirmed 10/21] Ranitidine TAB (NF) [Zantac TAB (NF)] 300 mg PO BEDTIME 07/27/18 [History Confirmed 12/01/19] Calcium Carbonate/Vitamin D3 [Oyster Shell Calcium Tablet] 1 tab PO DAILY [History Confirmed 12/01/19] Desvenlafaxine(NF) [Pristiq(NF)] 150 mg PO QAM 10/08/18 [History Confirmed 11/30] Gabapentin CAP(*) [Neurontin 300 CAP(*)] 600 mg PO BEDTIME 10/08/18 [History Confirmed 12/01/19] lamoTRIgine TAB(*) [Lamictal TAB(*)] 75 mg PO QAM 04/26/19 [History Confirmed ] Albuterol 2.5MG/3ML (0.083%)* [Ventolin 2.5 MG/3 ML NEB.SANDEEP*] 2.5 mg INH Q4H PRN 09/11/19 [History Confirmed 12/01/19] Albuterol Sulfate [Proventil Hfa] 2 puff INH QID PRN 09/11/19 [History Confirmed 12/01/19] Benzonatate CAP* [Tessalon 100 MG CAP*] 100 mg PO TID PRN 09/11/19 [History Confirmed 12/01/19] Butalb/Acetamin/Caff TAB* [Fioricet TAB*] 1 tab PO Q8H PRN 09/11/19 [History Confirmed 12/01/19] Canagliflozin (NF) [Invokana (NF)] 100 mg PO DAILY 09/11/19 [History Confirmed 12/01/19] Clopidogrel TAB* [Plavix TAB*] 75 mg PO DAILY 09/11/19 [History Confirmed ] Conjugated Estrogens VAG CM* [Premarin VAG CREAM*] 1 applic VAGINAL .2X/WEEK 08/20 [History Confirmed 12/01/19] Divalproex DR TAB(*) [Depakote DR TAB(*)] 500 mg PO BID 09/11/19 [History Confirmed 12/01/19] Erenumab-Aooe [Aimovig Autoinjector] 70 mg SUBCUT MONTHLY 09/11/19 [History Confirmed 12/01/19] Genahist 50 mg PO BEDTIME PRN 09/11/19 [History Confirmed 12/01/19] Insulin GLARGINE(*) [Lantus 100 units/ml 10 ml VIAL (*)] 20 units SUBCUT BEDTIME 09/11/19 [History Confirmed 12/01/19] Ipratropium 0.5MG/2.5ML NEB* [Atrovent 0.5 MG NEB.SANDEEP*] 1 vial INH QID PRN 09/11 [History Confirmed 12/01/19] Lurasidone(*) [Latuda] 60 mg PO DAILY 09/11/19 [History Confirmed 12/01/19] Multivitamins/Minerals TAB* [Theragran/minerals TAB*] 1 tab PO DAILY 09/11/19 [ History Confirmed 12/01/19] Nystatin CREAM* [Nystatin Cream*] 1 applic TOPICAL .3-4X/DAY 09/11/19 [History Confirmed 12/01/19] Sennosides [Senna] 25 mg PO DAILY 09/11/19 [History Confirmed 12/01/19] Topiramate [Topiramate ER 50 mg cap] 50 mg PO QPM 09/11/19 [History Confirmed ] PMH/Surg Hx/FS Hx/Imm Hx Endocrine/Hematology History: Reports: Hx Diabetes, Other Endocrine/ Hematological Disorders Denies: Hx Blood Disorders - blood clots, Hx Thyroid Disease, Hx Anemia, Hx Unexplained Bleeding Cardiovascular History: Reports: Hx Cardiac Arrest, Hx Congestive Heart Failure , Hx Hypercholesterolemia, Hx Hypertension, Other Cardiovascular Problems/ Disorders - Moyamoya syndrome Denies: Hx Aneurysm, Hx Angina, Hx Angioplasty, Hx Auto Implanted Cardiovert Defib, Hx Cardiomegaly, Hx Congenital Heart Disease, Hx Coronary Artery Disease , Hx Deep Vein Thrombosis, Hx Embolism, Hx Hypotension, Hx Myocardial Infarction , Hx Pacemaker/ICD, Hx Peripheral Vascular Disease, Hx Rheumatic Fever, Hx Syncope, Hx Valvular Heart Disease Respiratory History: Reports: Hx Asthma, Hx Chronic Bronchitis, Hx Chronic Obstructive Pulmonary Disease (COPD) - 3L O2 at home @ night- PRN during the day , Hx Pneumonia, Hx Sleep Apnea, Other Respiratory Problems/Disorders - PNEUMONIA IN 2001 Denies: Hx Cystic Fibrosis, Hx Lung Cancer, Hx Pleural Effusion, Hx Pulmonary Edema, Hx Pulmonary Embolism, Hx Seasonal Allergies GI History: Reports: Hx Gastroesophageal Reflux Disease, Other GI Disorders - "sphincter in stomach not working" Denies: Hx Cirrhosis, Hx Crohn's Disease, Hx Diverticulosis, Hx Gall Bladder Disease, Hx Gastrointestinal Bleed, Hx Hiatal Hernia, Hx Irritable Bowel, Hx Jaundice, Hx Obstructive Bowel, Hx Ileostomy, Hx Pyloric Stenosis, Hx Ulcer History: Reports: Hx Acute Renal Failure Denies: Hx Benign Prostatic Hyperplasia, Hx Chronic Renal Failure, Hx Dialysis, Hx Kidney Infection, Hx Kidney Stones, Hx Renal Disease, Other Problems/Disorders Musculoskeletal History: Reports: Hx Arthritis, Hx Back Problems, Hx Orthopedic Injury, Hx Scoliosis Denies: Hx Bursitis, Hx Congenital Bone Abnormalities, Hx Fibromyalgia, Hx Gout, Hx Osteoporosis, Hx Tendonitis, Other Musculoskeletal History Sensory History: Reports: Hx Contacts or Glasses, Hx Vision Problem Denies: Hx Cataracts, Hx Eye Injury, Hx Hearing Aid, Hx Hearing Problem, Other Sensory Impairments Opthamlomology History: Reports: Hx Contacts or Glasses, Hx Vision Problem Denies: Hx Cataracts, Hx Eye Injury, Other Sensory Impairments Neurological History: Reports: Hx Headaches, Hx Migraine, Hx Nerve Disease, Hx Seizures, Hx Transient Ischemic Attacks (TIA), Other Neuro Impairments/ Disorders - Hx moyamoya disease. 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 X2. endarterectomy-left internal carotid- STENT PLACED. APPENDIX. ENDOMETRIAL ABLATION Hx Anesthesia Reactions: No - Immunization History Date of Tetanus Vaccine: unk Date of Influenza Vaccine: 06/18 Infectious Disease History: No Infectious Disease History: Reports: Hx Clostridium Difficile Denies: Hx Hepatitis, Hx Human Immunodeficiency Virus (HIV), Hx of Known/ Suspected MRSA, Hx Shingles, Hx Tuberculosis, Hx Known/Suspected VRE, Hx Known/ Suspected VRSA, History Other Infectious Disease, Traveled Outside the [place] in Last 30 Days - Family History Known Family History: Positive: Cardiac Disease, Other - bipolar disorder; alcohol abuse - Social History Alcohol Use: None Alcohol Amount: once/year Hx Substance Use: No Substance Use Type: Reports: None Hx Tobacco Use: Yes Smoking Status (MU): Former Smoker Type: Cigarettes Amount Used/How Often: quit in 2004 Have You Smoked in the Last Year: No Review of Systems Negative: Fever - vitals show temp at 97.5F Neurological/Mental Status: Other - difficulty thinking Positive: Headache, Weakness, Slurred Speech All Other Systems Reviewed And Are Negative: Yes Physical Exam - Summary Physical Exam Summary: Constitutional: Well-developed, Well-nourished, Alert. (-) Distressed Skin: Warm, Dry HENT: Normocephalic; Atraumatic Eyes: Conjunctiva normal Neck: Musculoskeletal ROM normal neck. (-) JVD, (-) Stridor, (-) Tracheal deviation Cardio: Rhythm regular, rate normal, Heart sounds normal; Intact distal pulses. Radial pulses are 2+ and symmetric. (-) Murmur Pulmonary/Chest wall: Effort normal. (-) Respiratory distress, (-) Wheezes, (-) Rales Abd: Soft. (-) Tenderness, (-) Distension, (-) Guarding, (-) Rebound Musculoskeletal: (-) Edema. Good pulses bilaterally in radius, No calf tenderness, No venous cords, No pain with dorsiflexion of foot. Lymph: (-) Cervical adenopathy Neuro: Alert, Oriented x3, Strength normal, Cranial nerves II-XII are grossly intact. (-) Dysmetria, (-) Nystagmus, (-) Ataxia by finger to nose testing, (-) Sensory deficit. Left sided weakness compared to the right (new). 4/5 strength in LLE (old). Slow to respond to questioning. GCS 15. NIH 4. Psych: Mood and affect Normal Triage Information Reviewed: Yes Vital Signs On Initial Exam: Initial Vitals Temp Pulse Resp BP Pulse Ox 97.5 F 83 22 175/60 95 12/01/19 10:15 12/01/19 10:15 12/01/19 10:15 12/01/19 10:15 12/01/19 10:15 Vital Signs Reviewed: Yes Procedures - Sedation Patient Received Moderate/Deep Sedation with Procedure: No Diagnostics - Vital Signs Vital Signs Temp Pulse Resp BP Pulse Ox 12/01/19 10:15 97.5 F 83 22 175/60 95 - Laboratory Result Diagrams: 12/01/19 11:17 12/01/19 11:17 Lab Statement: Any lab studies that have been ordered have been reviewed, and results considered in the medical decision making process. - Radiology cxr Radiology Interpretation Completed By: Radiologist Summary of Radiographic Findings: IMPRESSION: No radiographic evidence for acute cardiopulmonary abnormality on this. portable chest x-ray. This report was reviewed by the ED physician. - CT head CT Interpretation Completed By: Radiologist Summary of CT Findings: IMPRESSION: 1. Negative CT apparent signs of stroke or acute intracranial hemorrhage. 2. Interval appearance of dependent partial left mastoid air cell effusion of uncertain. clinical significance. This report was reviewed by the ED physician. - EKG 1110 Cardiac Rate: NL EKG Rhythm: Sinus Rhythm Summary of EKG Findings: EKG at 1110 shows NSR at 76bpm. No STEMI. This EKG was reviewed and interpreted by the ED physician. NIH Scale - NIH Scale Level of Consciousness: Alert/Keenly Responsive Ask Patient the Month and His/Her Age: Both Correct Ask Pt to Open/Close Eyes and Ski Lift Mechanic/Release Non-Paretic Hand: Both Correctly Best Gaze (Only Horizontal Eye Movement): Normal Visual Field Testing: No Visual Loss Facial Paresis-Pt to Smile & Close Eyes or Grimace Symmetry: Normal/Symmetrical Motor Function - Right Arm: No Drift-Holds 10 Seconds Motor Function - Left Arm: No Drift-Holds 10 Seconds Motor Function - Right Leg: No Drift-Holds 10 Seconds Motor Function - Left Leg: Effort Against [place] Limb Ataxia-Must be out of Proportion to Weakness Present: Absent Sensory (Use Pinprick to Test Arms/Legs/Trunk/Face): Pinprick Less on Affected Best Language (Describe Picture, Name Items): No Aphasia Dysarthria (Read Several Words): Slurs Some Words Extinction and Inattention: No Abnormality Total Score: 4 Course/Dx - Course Course Of Treatment: Patient is here with left-sided numbness and possible slurred speech. Patient was last seen well at 3 AM by her boyfriend. 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 However, patient did endorse left-sided numbness which is new. Patient had a stat CT brain showed no evidence of ischemia. Neurology [facility] was counseled and they recommended against TPA as she is outside the window and has moyamoya disease. Patient is admitted to the hospital per neurology - Diagnoses Provider Diagnoses: CVA (cerebral vascular accident) During the Visit The Following Alert/Code Occurred: Code Erickson - Physician Notifications Discussed Care Of Patient With: Candelario Nj Time Discussed With Above Provider: 11:01 Instructed by Provider To: Other - Pt case was discussed with Dr. Nj, who believes based on the story that last known well is 0300 today and the pt is outside of the TPA window. Dr. Nj wants an MRI, a CTA, and admission to the hospital. At 1102 Dr. Lucia accepted the pt for admission. - Critical Care Time Critical Care Time: 30-74 min - 35 Discharge ED - Sign-Out/Discharge Documenting (check all that apply): Patient Departure - admit - Discharge Plan Condition: Stable Disposition: ADMITTED TO [facility] - Billing Disposition and Condition Condition: STABLE Disposition: Admitted to [facility] - Attestation Statements Document Initiated by Brittnee: Yes Documenting Scribe: Wallace Raines Provider For Whom Brittnee is Documenting (Include Credential): Kei Plaza MD Scribe Attestation: Wallace Michaels, scribed for Kei Plaza MD on 12/01/19 at 1838. Scribe Documentation Reviewed: Yes Provider Attestation: The documentation as recorded by the Wallace españa accurately reflects the service I personally performed and the decisions made by , Kei Plaza MD Status of Scribe Document: Viewed
[2019-12-01 11:32] LABS: ABS Eosinophils 0.1 10^3/ul (0-0.6); ABS Lymphocytes 2.4 10^3/ul (1.0-4.8); ABS Monocytes 0.6 10^3/ul (0-0.8); ABS Neutrophils 4.6 10^3/ul (1.5-7.7); Eosinophil % 1.6 %; Hematocrit 41 % (35-47); Hemoglobin 13.9 g/dL (12.0-16.0); Lymphocyte % 30.8 %; Mean Corpuscular HGB Conc 33 g/dL (31-36); Mean Corpuscular Hemoglobin 28 pg (27-31); Mean Corpuscular Volume 83 fL (80-97); Mean Platelet Volume 8.5 fL (7.4-10.4); Platelet Count 179 10^3/uL (150-450); Red Blood Count 5.01 10^6 /uL (3.70-4.87); Red Cell Distribution Width 19 % (10-15); White Blood Count 7.7 10^3/uL (3.5-10.8)
[2019-12-01 11:41] LABS: Activated Partial Thrombo Time 32.4 seconds (26.0-38.0); INR 1.12 (0.82-1.09)
[2019-12-01 11:43] LABS: Albumin 4.1 g/dL (3.2-5.2); Albumin/Globulin Ratio 1.4 (1-3); BUN/Creatinine Ratio 22.4 (8-20); Calcium 9.5 mg/dL (8.6-10.3); EGFR African American 94.9 (>60); EGFR Non-African American 78.4 (>60); HDL Cholesterol 40.7 mg/dL; Potassium 4.4 mmol/L (3.5-5.0); Total Bilirubin 0.5 mg/dL (0.2-1.0); Total Protein 7.1 g/dL (6.4-8.9)
--- OUTSIDE RECORDS SUMMARY | 2019-12-01 11:51 | XMS REPORT ---
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 Suicidal Suicidal Diagnosis Active Marlene ideations ideations 06-20 Carrier RN Type 2 Type 2 Diagnosis Active Marlene diabetes diabetes 06-20 Carrier RN mellitus mellitus without without complicatio complicatio ns ns Heart Heart Diagnosis Active Marlene failure, failure, 06-20 Carrier RN unspecified unspecified Gastro-esop Gastro-esop Diagnosis Active Marlene hageal hageal 06-20 Carrier RN reflux reflux disease disease without without esophagitis esophagitis Obstructive Obstructive Diagnosis Active Marlene sleep apnea sleep apnea Carrier RN (adult) (adult) (pediatric) (pediatric) Essential Essential Diagnosis Active Marlene (primary) (primary) Carrier RN hypertensio hypertensio n n Pain frequent Pain Mgmt Resolve 2019-02-05 Becca pain d 06-20 10:30:00 (Andrés) 08:20: Walker 00 [id number] Cardio edema Cardiovasc Resolve 2018-08-16 Becca ular d 06-20 10:00:00 (Andrés) 08:20: Walker 00 [id number] Respiratory dyspnea Respirator Resolve 2019-02-05 Becca present y d 06-20 10:30:00 (Andrés) 08:20: Walker 00 [id number] Respiratory lung sounds Respirator Resolve 2019-02-05 Becca deficit y d 06-20 10:30:00 (Andrés) 08:20: Walker 00 [id number] Endo/Gage anti-coagul Endo/Gage Resolve 2018-07-31 Becca ation d 06-20 11:58:00 (Andrés) therapy 08:20: Walker [id number] Integument skin Integument Active Becca integrity 06-20 (Andrés) risk 08:20: Walker [id number] Elimination urinary Eliminatio Resolve 2018-08-16 Becca incontinenc n d 06-20 10:00:00 (Andrés) e 08:20: Walker [id number] Neuro confusion Neuro/Emot Active Becca present ion 06-20 (Andrés) 08:20: Walker [id number] Neuro anxiety Neuro/Emot Active Becca present ion 06-20 (Andrés) 08:20: Walker [id number] Neuro impaired Neuro/Emot Active Becca decision-ma ion 06-20 (Andrés) caty 08:20: Walker [id number] Activity ADL Activity Active Becca assistance 06-20 (Andrés) required 08:20: Walker [id number] Safety cannot be Safety Active Becca left alone 06-20 (Andrés) 08:20: Walker [id number] Safety fall risk Safety Resolve 2019-08-13 Becca factor d 06-20 10:55:00 (Andrés) present 08:20: Walker [id number] Safety risk for Safety Resolve 2019-08-13 Becca hospitaliza d 06-20 10:55:00 (Andrés) tion 08:20: Walker [id number] Medication oral med Meds Resolve 2018-07-31 Becca assistance d 06-20 11:58:00 (Andrés) required 08:20: Walker [id number] Medication potential Meds Resolve 2018-07-31 Becca clinically d 06-20 11:58:00 (Andrés) significant 08:20: Walker medication 00 [id number] issue Musculoskel requires Musculoske Resolve 2019-06-13 Becca etal human letal d 06-20 13:00:00 (Andrés) assist to 08:20: Walker leave home 00 [id number] Musculoskel transfer Musculoske Resolve 2019-06-13 Becca etal assistance letal d 06-20 13:00:00 Guidelli required 08:20: [id number] 00 Respiratory oxygen Respirator Resolve 2019-02-05 Loreta treatments y d 06-26 10:30:00 [employer] in home 10:28: h [id number] 00 Safety can be left Safety Active Loreta alone for 06-26 [employer] only short 10:28: h [id number] periods 00 Elimination urinary Eliminatio Resolve 2017-102018-08-16 Loreta frequency n d 10:00:00 [employer] 11:58: h [id number] 00 Neuro knowledge/s Neuro/Emot Active 2017-10 Loreta kill ion 0 Guy[employer] deficit: cg 11:58: h [id number] 00 Endo/Gage anti-coagul Endo/Gage Resolve 2017-102019-01-29 Loreta ation d 1-15 12:45:00 [employer] therapy 10:00: h [id number] 00 Neuro depressive Neuro/Emot Active 2017-10 Loreta feelings ion 1-15 [employer] present 10:00: h [id number] 00 Medication oral med Meds Resolve 2017-102019-02-05 Loreta assistance d 1-15 10:30:00 [employer] required 10:00: h [id number] 00 Medication injectable Meds Resolve 2017-102019-02-05 Loreta med d -15 10:30:00 [employer] assistance 10:00: h [id number] required 00 Medication potential Meds Active 2017-10 Loreta clinically -15 Guy[employer] significant 10:00: h [id number] medication 00 issue Endo/Gage knowledge/s Endo/Gage Resolve 2019-01-08 Marlene kill d 16 15:40:00 Carrier RN deficit: pt 14:45: 00 Nutrition nutritional Nutrition Resolve 2019-01-29 Marlene restriction d -16 12:45:00 Carrier RN s 14:45: 00 Activity self-care Activity Resolve 2019-01-15 Marlene deficit d 1-16 11:25:00 Carrier RN 14:45: 00 Cardio hypertensio Cardiovasc Resolve 2019-01-29 Marlene paulino ular d 2-12 12:45:00 Carrier RN 10:00: 00 Neuro knowledge/s Neuro/Emot Active Marlene kill ion 3-13 Carrier RN deficit: pt 13:30: 00 Respiratory nebulizer Respirator Active Cherrise treatment y 12-25 Emily in home 09:30: [id number] 00 Endo/Gage glucose Endo/Gage Resolve 2019-01-29 Cherrise tolerance d 12-25 12:45:00 [place] problem 09:30: [id number] 00 Nutrition knowledge/s Nutrition Resolve 2019-01-29 Cherrise kill d 12-25 12:45:00 Emily deficit: pt 09:30: [id number] 00 Elimination urinary Eliminatio Resolve 2019-01-15 Cherrise incontinenc n d 12-25 11:25:00 Emily e 09:30: [id number] 00 Elimination urinary Eliminatio Resolve 2019-01-15 Cherrise urgency n d 12-25 11:25:00 [place] 09:30: [id number] 00 Endo/Gage insulin Endo/Gage Resolve 2019-02-05 Cherrise admn d 02 10:30:00 [place] dependence 09:55: [id number] 00 Endo/Gage glucose Endo/Gage Resolve 2019-02-05 Cherrise testing d 01-01 10:30:00 [place] dependence 09:55: [id number] 00 Elimination urinary Eliminatio Resolve 2019-01-15 Cherrise frequency n d 4 11:25:00 Emily 09:55: [id number] 00 Elimination recurring Eliminatio Resolve 2019-02-05 Cherrise UTI n d 01-01 10:30:00 Emily 09:55: [id number] 00 Respiratory knowledge/s Respirator Resolve 2019-01-08 Marlene kill y d -09 15:40:00 Carrier RN deficit: cg 15:40: 00 Respiratory Incentive Respirator Resolve 2019-04-15 Marlene Spirometer y d 01-08 14:25:00 Carrier RN /Cee 15:40: Device 00 treatments in home Safety knowledge/s Safety Resolve 2019-08-13 Marlene kill d 01-08 10:55:00 Carrier RN deficit: cg 15:40: 00 Endo/Agge knowledge/s Endo/Gage Resolve 2019-02-05 Marlene kill d 01-29 10:30:00 Carrier RN deficit: pt 12:45: 00 Nutrition nutritional Nutrition Active Marlene restriction 07 Carrier RN s 10:30: 00 Endo/Gage knowledge/s Endo/Gage Resolve 2019-04-09 Marlene kill d 514 12:50:00 Carrier RN deficit: pt 11:55: 00 Activity self-care Activity Active Marlene deficit 5-14 Carrier RN 11:55: 00 Medication injectable Meds [...] [place] 13:00: RN 00 Nutrition changing Nutrition Resolve 2019-11-05 Terra weight/appe d 06-13 14:05:00 [place] tite 13:00: RN 00 Elimination urinary Eliminatio Active 2018-10 Tiffani incontinenc n 0-08 Nila e 09:15: [employer] 00 [id number] Elimination constipatio Eliminatio Active 2018-10 Marlene n n 1-06 Carrier RN 12:10: 00 Cardio hypertensio Cardiovasc Active 2018-10 Marlene n ular 10-13 Carrier RN 10:55: 00 Medication injectable Meds Active 2018-10 Marlene med 10-13 Carrier RN assistance 10:55: required 00 Musculoskel requires Musculoske Active 2018-10 Marlene etal human letal 10-13 Carrier RN assist to 10:55: leave home 00 Musculoskel transfer Musculoske Active 2018-10 Marlene etal assistance letal 10-13 Carrier RN required 10:55: 00 Elimination diarrhea Eliminatio Active 2018-10 Tiffani n 10-27 Nila 09:00: [employer] 00 [id number] Safety risk for Safety [facility] 2018-[facility] Nila tion 09:00: [employer] 00 [id number] Safety knowledge/s Safety Active 2018-10 Marlene kill 2 Carrier RN deficit: cg 15:55: 00 Integument other wound Integument Active Marlene present 10-08 Carrier RN 12:30: 00 Safety fall risk Safety Active Marlene factor 10-08 Carrier RN present 12:30: 00 Allergies, Adverse Reactions, Alerts Allergy Name Allergy Status Severity Reaction(s) Onset Inactive Treating Comments Type Date Date Clinician morphine Base Active Unknown Reaction Barb Beam Ingredient Unknown 18 clavulanic Base Active Unknown Reaction Barb Beam acid Ingredient Unknown 18 nitrofuranto Base Active Unknown Reaction Barb Beam in Ingredient Unknown 18 meperidine Base Active Unknown Reaction Barb Beam Ingredient Unknown 918 Medications Ordered Filled Start Stop Current Ordering Indication Dosage Frequency Signature Comments Components Medication Medication Date Date Medication? Clinician (SIG) Name Name acetaminoph acetaminoph No Crowe 1 Unknown en 325 mg en 325 mg ,Adluis e tablet capsule capsule Proventil Proventil No Crowe [...] mg capsule capsule carvedilol carvedilol 2017- No Courtland Unknown Unknown 6.25 mg 6.25 mg 06-20 Abiel UPTON tablet tablet Brandon Vitamin D3 Vitamin D3 No Crowe 2000 Unknown 50 mcg 50 mcg Sarah U[facility] units (2,000 (2,000 unit) unit) capsule capsule dilTIAZem dilTIAZem 2017- No Courtland Unknown Unknown 120 mg 120 mg 06-20 Abiel [facility] tablet tablet Brandon Depakote Depakote No Crowe 1-2 Unknown 500 mg 500 mg Sarah [facility] tablet,lauryn tablet,lauryn yed release yed release Colace 100 Colace 100 2017- No Courtland Unknown Unknown mg capsule mg capsule 06-20 Abiel U[facility] furosemide furosemide No Crowe 20 mg Unknown 20 mg 20 mg Sarah U[facility]ON tablet tablet gabapentin gabapentin 2017- No Courtland Unknown Unknown 300 mg 300 mg 06-20 Abiel [facility] capsule capsule Brandon glimepiride glimepiride No Crowe 4 mg Unknown 4 mg tablet 4 mg tablet Sarah U[facility] liraglutide liraglutide No Crowe 1 Unknown 0.6 mg/0.1 0.6 mg/0.1 Sarah UPTON injecti mL (18 mg/3 mL (18 mg/3 on mL) mL) subcutaneou subcutaneou s pen s pen injector injector lisinopril lisinopril 2017- No Courtland Unknown Unknown 20 mg 20 mg 06-20 Abiel U[facility] tablet tablet Brandon Oyster Oyster No Crowe 500 mg Unknown Shell Shell Sarah [facility] Calcium 500 Calcium 500 500 mg 500 mg calcium calcium (1,250 mg) (1,250 mg) tablet tablet multivitami multivitami 2017- No Courtland Unknown Unknown n capsule n capsule 06-20 [...] Sarah [facility] capsule capsule oxygen oxygen No Courtland Unknown Unknown 06-20 Abiel [facility] clopidogrel clopidogrel 2018- No Court[place] Unknown Unknown 75 mg 75 mg 06-20 Abiel [facility] tablet tablet Brandon desvenlafax desvenlafax 2018- No Courtland Unknown Unknown ine ine 06-20 ,Abiel succinate succinate Brandon ER 100 mg ER 100 mg tablet,exte tablet,exte nded nded release 24 release 24 hr hr diphenhydrA diphenhydrA 2017- No Courtland Unknown Unknown MINE 25 mg MINE 25 mg 06-20 Abiel U[facility] capsule capsule Brandon Depakote ER Depakote ER 2018- No Courtland Unknown Unknown 500 mg 500 mg 06-20 Abiel [place] tablet,exte tablet,exte Brandon nded nded release release famotidine famotidine 2018- No Courtland Unknown Unknown 40 mg 40 mg 06-20 Abiel U[place] tablet tablet Brandon gabapentin gabapentin 2017- No [place] Unknown Unknown 100 mg 100 mg 06-20 Abiel U[facility] capsule capsule Brandon glimepiride glimepiride 2018- No Court[place] Unknown Unknown 4 mg tablet 4 mg tablet 06-20 Abiel U[place] Nystop Nystop No Courtland Unknown Unknown 100,000 100,000 06-20 Abiel [facility] unit/gram unit/gram Brandon topical topical powder powder atorvastati atorvastati 2017- Court[place] Unknown Unknown n 80 mg n 80 mg 06-20 Abiel U[place] tablet tablet Brandon carvedilol carvedilol 2017-10- No Courtland Unknown Unknown 6.25 mg 6.25 mg 07-02 Abiel U[place]ON tablet tablet Brandon Colace 100 Colace 100 2017-10- No Courtland Unknown Unknown mg capsule mg capsule 07-02 Abiel U[place] diphenhydrA diphenhydrA 2017-10- No Courtland Unknown Unknown MINE 25 mg MINE 25 mg 12-14 Abiel U[place]ON capsule capsule Brandon Depakote ER Depakote ER 2017-10- No Courtland Unknown Unknown 500 mg 500 mg 09-27 Abiel U[place] tablet,exte tablet,exte Brandon nded nded release release Topamax 50 Topamax 50 2017- No Kandy Unknown Unknown mg tablet mg tablet 06-27 ,Willian Saphris Saphris 2017- No Kandy Unknown Unknown (black (black 06-27 ,Willian golden) 10 golden) 10 mg mg sublingual sublingual tablet tablet pantoprazol pantoprazol 2017- No Courtland Unknown Unknown e 40 mg e 40 mg 06-27 Abiel U[place] tablet,lauryn tablet,lauryn Brandon yed release yed release raNITIdine raNITIdine 2017- No Courtland Unknown Unknown 300 mg 300 mg 06-27 Abiel U[place] tablet tablet Brandon Calcium 500 Calcium 500 2017- No Court[place] Unknown Unknown With D 500 With D 500 06-27 Abiel U[place] (1,250 mg (1,250 Brandon mg)-400 mg)-400 unit tablet unit tablet Vitamin D3 Vitamin D3 2018- No Courtland Unknown Unknown 400 unit 400 unit 06-27 Abiel UPTON capsule capsule Brandon Victoza Victoza No Courtland Unknown Unknown 2-Jeison 0.6 2-Jeison 0.6 06-27 Abiel U[place] mg/0.1 mL mg/0.1 mL Brandon (18 mg/3 (18 mg/3 mL) mL) subcutaneou subcutaneou s pen s pen injector injector atorvastati atorvastati 2017-10- No Courtland Unknown Unknown n 80 mg n 80 mg 0-30 -30 ,Abiel tablet tablet Brandon Wellbutrin Wellbutrin 2017-10- No Kandy Unknown Unknown XL 150 mg XL 150 mg 008-08 ,Willian 24 hr 24 hr tablet, tablet, extended extended release release desvenlafax desvenlafax 2017-10- No Kandy Unknown Unknown ine ER 100 ine ER 100 0-30 -30 MD,Willian mg mg tablet,exte tablet,exte nded nded release 24 release 24 hour hour desvenlafax desvenlafax 2017-10- No Kandy Unknown Unknown ine ER 50 ine ER 50 0-30 -30 MD,Willian mg mg tablet,exte tablet,exte nded nded release 24 release 24 hour hour buPROPion buPROPion 2017-10- No Kandy Unknown Unknown HCl XL 300 HCl XL 300 10-08 ,Willian mg 24 hr mg 24 hr tablet, tablet, extended extended release release Topamax 50 Topamax 50 2017-10- No Kaitlynn Unknown Unknown mg tablet mg tablet 10-09 ,Geraldo doxycycline doxycycline 2017-10- No Courtland Unknown Unknown monohydrate monohydrate 10-15 Abiel U[place] 100 mg 100 mg Brandon capsule capsule lithium lithium 2017-10- No Kandy Unknown Unknown carbonate carbonate 11-28 ,Willian 300 mg 300 mg tablet tablet Depakote ER Depakote ER 2017-10- No Kandy Unknown Unknown 500 mg 500 mg 11-28 ,Willian tablet,exte tablet,exte nded nded release release sennosides sennosides 2017-10 No Courtland Unknown Unknown 8.6 8.6 11-28 Abiel U[place] [...] mg tablet tablet diphenhydrA diphenhydrA 2018- No Courtland Unknown Unknown MINE 25 mg MINE 25 mg 12-14 ,Abiel capsule capsule Brandon clindamycin clindamycin 2018- No Pate Unknown Unknown HCl 300 mg HCl 300 mg 12-25 ,Deb capsule capsule dilTIAZem dilTIAZem No [place] Unknown Unknown 120 mg 120 mg 06-20 ,Abiel tablet tablet Brandon gabapentin gabapentin 2018- No Courtland Unknown Unknown 300 mg 300 mg 06-20 ,Abiel capsule capsule Brandon lisinopril lisinopril No Courtland Unknown Unknown 20 mg 20 mg 06-20 ,Abiel tablet tablet Brandon multivitami multivitami No Court[place] Unknown Unknown n capsule n capsule 06-20 Abiel U[place] clopidogrel clopidogrel No [place] Unknown Unknown 75 mg 75 mg 06-20 ,Abiel tablet tablet Brandon gabapentin gabapentin No Court[place] Unknown Unknown 100 mg 100 mg 06-20 ,Abiel capsule capsule Brandon glimepiride glimepiride No Court[place] Unknown Unknown 4 mg tablet 4 mg tablet 06-20 Abiel [place] carvedilol carvedilol 2017- No Court[place] Unknown Unknown 6.25 mg 6.25 mg 06-20 ,Abiel tablet tablet Brandon Saphris Saphris 2018- No Kandy Unknown Unknown (black (black 06-20 ,Willian golden) 10 [place]) 10 mg mg sublingual sublingual tablet tablet pantoprazol pantoprazol No Courtland Unknown Unknown e 40 mg e 40 mg 06-20 ,Abiel tablet,lauryn tablet,lauryn Brandon yed release yed release raNITIdine raNITIdine No Courtland Unknown Unknown 300 mg 300 mg 06-20 ,Abiel tablet tablet Brandon Calcium 500 Calcium 500 2017- No Courtland Unknown Unknown With D 500 With D 500 06-20 Abiel [facility] mg (1,250 mg (1,250 Brandon mg)-400 mg)-400 unit tablet unit tablet Vitamin D3 Vitamin D3 2018- No Courtland Unknown Unknown 1,000 unit 1,000 unit 01-01 ,Abiel capsule capsule Brandon atorvastati atorvastati 2017- No Courtland Unknown Unknown n 80 mg n 80 mg 1 10- ,Abiel tablet tablet Brandon atorvastati atorvastati 2017-10 No Court[place] Unknown Unknown n 80 mg n 80 mg 0-30 MD,Abiel tablet tablet Brandon desvenlafax desvenlafax 2017-10 No Kandy Unknown Unknown ine ER 100 ine ER 100 0-30 MD,Willian mg mg tablet,exte tablet,exte nded nded release 24 release 24 hour hour desvenlafax desvenlafax 2017-10 No Kandy Unknown Unknown ine ER 50 ine ER 50 0-30 MD,Willian mg mg tablet,exte tablet,exte nded nded release 24 release 24 hour hour carvedilol carvedilol 2017-10- No Courtland Unknown Unknown 6.25 mg 6.25 mg 07-02 ,Abiel tablet tablet Brandon Saphris Saphris 2018- No Kandy Unknown Unknown (black (black 06-27 ,Willian golden) 10 [place]) 10 mg mg sublingual sublingual tablet tablet Calcium 500 Calcium 500 2018- No Courtland Unknown Unknown With D 500 With D 500 06-27 Abiel [facility] mg (1,250 mg (1,250 Brandon mg)-400 mg)-400 unit tablet unit tablet Topamax 50 Topamax 50 2017-10- No Kaitlynn Unknown Unknown mg tablet mg tablet 10-09 Geraldo UPTON Depakote ER Depakote ER No Kandy Unknown Unknown 500 mg 500 mg 10-23 MD,Willian tablet,exte tablet,exte nded nded release release diphenhydrA diphenhydrA No Courtland Unknown Unknown MINE 25 mg MINE 25 mg 3-15 ,Abiel capsule capsule Brandon lithium lithium 2018- No Kandy Unknown Unknown carbonate carbonate 11-29- ,Willian 300 mg 300 mg tablet tablet Colace 100 Colace 100 2017-10- No Courtland Unknown Unknown mg capsule mg capsule 01-01 Abiel U[place] ipratropium ipratropium No Court[place] Unknown Unknown bromide bromide 02-19 ,Abiel 0.02 % 0.02 % Brandon solution solution for for inhalation inhalation albuterol albuterol No Courtland Unknown Unknown sulfate 2.5 sulfate 2.5 02-19 Abiel [facility] mg/3 mL mg/3 mL Brandon (0.083 %) (0.083 %) solution solution for for nebulizatio nebulizatio n n predniSONE predniSONE 2018- No Courtland Unknown Unknown 20 mg 20 mg 12-28 ,Abiel tablet tablet Brandon benzonatate benzonatate No Courtland Unknown Unknown 100 mg 100 mg 12-28 ,Abiel capsule capsule Brandon doxycycline doxycycline 2018- No Courtland Unknown Unknown hyclate 100 hyclate 100 12-28 Abiel [facility] mg capsule mg capsule Brandon [...] mg tablet mg tablet 01-29 Willian U[facility] Invokana Invokana 2018- No Pate Unknown Unknown 100 mg 100 mg 02-20 MD,Deb tablet tablet Diflucan Diflucan No Pate Unknown Unknown 150 mg 150 mg 02-20 MD,Deb tablet tablet LaMICtal 25 LaMICtal 25 2018- No Kandy Unknown Unknown mg tablet mg tablet 03-05 12 ,Willian Topamax 50 Topamax 50 2018- No [...] Unknown mg tablet mg tablet 05-21 ,Geraldo Lewisulti 2 Rexulti 2018- No Kandy Unknown Unknown mg tablet mg tablet 05-31 ,Willian Dejesus Lantus 2018-10 No Pate Unknown Unknown Solostar Solostar 0- MD,Deb U-100 U-100 Insulin 100 Insulin 100 unit/mL (3 unit/mL (3 mL) mL) subcutaneou subcutaneou s pen s pen Topamax 50 Topamax 50 2018-10 No Kaitlynn Unknown Unknown mg tablet mg tablet 0- ,Geraldo Saphris 5 Saphris 5 2018-10 No Kandy Unknown Unknown mg mg 0- Willian [facility] sublingual sublingual tablet tablet Rexulti 2 Rexulti 2 2018- No Kandy Unknown Unknown mg tablet mg tablet 05-31 ,Willian Invokana Invokana No Pate Unknown Unknown 100 mg 100 mg 5 MD,Deb tablet tablet carvedilol carvedilol 2017-10 No Courtland Unknown Unknown 6.25 mg 6.25 mg 0- ,Abiel tablet tablet Brandon Latuda 20 Latuda 20 2018-10- No Kandy Unknown Unknown mg tablet mg tablet 10-02 ,Willian Latuda 40 Latuda 40 2018-10- No Kandy Unknown Unknown mg tablet mg tablet 10-09 ,Willian Aimovig Aimovig 2018-10 No Kaitlynn Unknown Unknown Autoinjecto Autoinjecto - ,Geraldo r 70 mg/mL r 70 mg/mL subcutaneou subcutaneou s s auto-inject auto-inject or or Latuda 60 Latuda 60 2018-10 No Kandy Unknown Unknown mg tablet mg tablet - ,Willian LaMICtal 25 LaMICtal 2018-10 Yes Kandy Unknown Unknown mg tablet mg tablet 11-25 ,Willian fluticasone fluticasone Yes Shine Unknown Unknown propionate propionate 2- MD,Aixa 50 50 mcg/actuati mcg/actuati on nasal on nasal spray,suspe spray,suspe nsion nsion azithromyci azithromyci 0 2019- Shine Unknown Unknown n 250 mg n 250 mg 2-11-10 ,Aixa tablet tablet Tussin CF Tussin CF Yes Shine Unknown Unknown Cough-Cold Cough-Cold 2-05 ,Aixa 5 mg-10 5 mg-10 mg-100 mg/5 mg-100 mg/5 mL oral mL oral liquid liquid Vital Signs Vital Name Observation Time Observation Value Comments SYSTOLIC mm[Hg] 2019-06-13 18:07:48 142 mm[Hg] mm[Hg] Method: Stand DIASTOLIC mm[Hg] 2019-06-13 18:07:48 72 mm[Hg] mm[Hg] Method: Stand Procedures This patient has no known procedures. Results This patient has no known results.
--- OUTSIDE RECORDS SUMMARY | 2019-12-01 11:52 | XMS REPORT ---
:1960 Author Organization [facility] Care Team Providers Name Role Phone Unavailable [...] d 06-20 10:30:00 (Andrés) 08:20: Walker 00 [id number] Cardio edema Cardiovasc Resolve 2018-08-16 Becca ular d 06-20 10:00:00 (Andrés) 08:20: Walker 00 [id number] Respiratory dyspnea Respirator Resolve 2019-02-05 Becca present y d 06-20 10:30:00 (Andrés) 08:20: Walker 00 [id number] Respiratory lung sounds Respirator Resolve 2019-02-05 Becca deficit y d 06-20 10:30:00 (Andrés) 08:20: Walker 00 [id number] Endo/Gage anti-coagul Endo/Gage Resolve 2018-07-31 Becca ation d 06-20 11:58:00 (Andrés) therapy 08:20: Walker [id number] Integument skin Integument Active Becca integrity 06-20 (Andrés) risk 08:20: Walker [id number] Elimination urinary Eliminatio Resolve 2018-08-16 Becca incontinenc n d 06-20 10:00:00 (Andrés) e 08:20: Walker [id number] Neuro confusion Neuro/Emot Active Becca present ion 06-20 (Andrés) 08:20: Walker [id number] Neuro anxiety Neuro/Emot Active Bceca present ion 06-20 (Andrés) 08:20: Walker [id number] Neuro impaired Neuro/Emot Active Becca decision-ma ion 06-20 (Andrés) caty 08:20: Walker [id number] Activity ADL Activity Active Becca assistance 06-20 (Andrés) required 08:20: Walker [id number] Safety cannot be Safety Active Becca left alone 06-20 (Andrés) 08:20: Walker [id number] Safety fall risk Safety Resolve 2019-08-13 Becca factor d 06-20 10:55:00 (Andrés) present 08:20: Walker [id number] Safety risk for Safety Resolve 2019-08-13 Becca hospitaliza d 06-20 10:55:00 (Andrés) tion 08:20: Walker [id number] Medication oral med Meds Resolve 2018-07-31 Becca assistance d 06-20 11:58:00 (Andrés) required 08:20: Walker [id number] Medication potential Meds Resolve 2018-07-31 Becca clinically d 06-20 11:58:00 (Andrés) significant 08:20: Walker medication 00 [id number] issue Musculoskel requires Musculoske Resolve 2019-06-13 Becca etal human letal d 06-20 13:00:00 (Andrés) assist to 08:20: Walker leave home 00 [id number] Musculoskel transfer Musculoske Resolve 2019-06-13 Becca etal assistance letal d 06-20 13:00:00 [place] required 08:20: [id number] 00 Respiratory oxygen Respirator Resolve 2019-02-05 [place] treatments y d 06-26 10:30:00 [place] in home 10:28: h [id number] 00 Safety can be left Safety Active Loreta alone for 06-26 [place] only short 10:28: h [id number] periods 00 Elimination urinary Eliminatio Resolve 2017-102018-08-16 [place] frequency n d 10:00:00 [place] 11:58: h [id number] 00 Neuro knowledge/s Neuro/Emot Active 2017-10 [place] kill ion 0 [place] deficit: cg 11:58: h [id number] 00 Endo/Gage anti-coagul Endo/Gage Resolve 2017-102019-01-29 [place] ation d 1-15 12:45:00 [place] therapy 10:00: h [id number] 00 Neuro depressive Neuro/Emot Active 2017-10 [place] feelings ion 1-15 [place] present 10:00: h [id number] 00 Medication oral med Meds Resolve 2017-102019-02-05 [place] assistance d 1-15 10:30:00 [place] required 10:00: h [id number] 00 Medication injectable Meds Resolve 2017-102019-02-05 [place] med d -15 10:30:00 [place] assistance 10:00: h [id number] required 00 Medication potential Meds Active 2017-10 Loreta clinically -15 [place] significant 10:00: h [id number] medication 00 issue Endo/Gage knowledge/s Endo/Gage Resolve [...] treatment y 12-25 Emily in home 09:30: [id number] Endo/Gage glucose Endo/Gage Resolve 2019-01-29 Cherrise tolerance d 12-25 12:45:00 [place] problem 09:30: [id number] Nutrition knowledge/s Nutrition Resolve 2019-01-29 Cher[place] kill d 12-25 12:45:00 Emily deficit: pt 09:30: [id number] 00 Elimination urinary Eliminatio Resolve 2019-01-15 [place] incontinenc n d 12-25 11:25:00 Emily e 09:30: [id number] 00 Elimination urinary Eliminatio Resolve 2019-01-15 Cherrise urgency n d 12-25 11:25:00 [place] 09:30: [id number] 00 Endo/Gage insulin Endo/Gage Resolve 2019-02-05 Cherrise admn d 02 10:30:00 [place] dependence 09:55: [id number] Endo/Gage glucose Endo/Gage Resolve 2019-02-05 Cherrise testing d 01-01 10:30:00 [place] dependence 09:55: [id number] 00 Elimination urinary Eliminatio Resolve 2019-01-15 [place] frequency n d 4 11:25:00 Emily 09:55: [id number] 00 Elimination recurring Eliminatio Resolve 2019-02-05 [place]rise UTI n d 01-01 10:30:00 Emily 09:55: [id number] 00 Respiratory knowledge/s Respirator Resolve 2019-01-08 Marlene [...] n 0-08 Nila e 09:15: [employer] 00 [id number] Elimination constipatio Eliminatio Active 2018-10 Marleen n n 1-06 Carrier RN 12:10: 00 [...] Tiffani n 10-27 Nila 09:00: [employer] 00 [id number] Safety risk for Safety [facility] Nila tion 09:00: [employer] 00 [id number] Safety knowledge/s Safety Active 2018-10 Marlene kill [...] mg capsule capsule carvedilol carvedilol 2017- No [place] Unknown Unknown 6.25 mg 6.25 mg 06-20 Abiel UPTON tablet tablet Brandon Vitamin D3 Vitamin D3 No [place] 2000 Unknown 50 mcg 50 mcg Sarah [facility] units (2,000 (2,000 unit) unit) capsule capsule dilTIAZem dilTIAZem 2017- No [place] Unknown Unknown 120 mg 120 mg 06-20 Abiel [facility] tablet tablet Brandon Depakote Depakote No [place] 1-2 Unknown 500 mg 500 mg Sarah [facility] tablet,lauryn tablet,lauryn yed release yed release Colace 100 Colace 100 2017- No [place] Unknown Unknown mg capsule mg capsule 06-20 Abiel [facility] furosemide furosemide No [place] 20 mg Unknown 20 mg 20 mg Sarah [facility] tablet tablet gabapentin gabapentin 2017- No [place] Unknown Unknown 300 mg 300 mg 06-20 Abiel [facility] capsule capsule Brandon glimepiride glimepiride No [place] 4 mg Unknown 4 mg tablet 4 mg tablet Sarah [facility] liraglutide liraglutide No [place] 1 Unknown 0.6 mg/0.1 0.6 mg/0.1 Sarah [facility] injecti mL (18 mg/3 mL (18 mg/3 on mL) mL) subcutaneou subcutaneou s pen s pen injector injector lisinopril lisinopril 2017- No [place] Unknown Unknown 20 mg 20 mg 06-20 Abiel [facility] tablet tablet Brandon Oyster Oyster No [place] 500 mg Unknown Shell Shell Sarah [facility] Calcium 500 Calcium 500 500 mg 500 mg calcium calcium (1,250 mg) (1,250 mg) tablet tablet multivitami multivitami 2017- No [place] Unknown Unknown n capsule n capsule 06-20 [...] Sarah [facility] capsule capsule oxygen oxygen No [place] Unknown Unknown 06-20 Abiel [facility] clopidogrel clopidogrel 2018- No [place] Unknown Unknown 75 mg 75 mg 06-20 Abiel [facility] tablet tablet Brandon desvenlafax desvenlafax 2018- No [place] Unknown Unknown ine ine 06-20 ,Abiel succinate succinate Brandon ER 100 mg ER 100 mg tablet,exte tablet,exte nded nded release 24 release 24 hr hr diphenhydrA diphenhydrA 2017- No [place] Unknown Unknown MINE 25 mg MINE 25 mg 06-20 Abiel [facility] capsule capsule Brandon Depakote ER Depakote ER 2018- No [place] Unknown Unknown 500 mg 500 mg 06-20 Abiel [facility] tablet,exte tablet,exte Brandon nded nded release release famotidine famotidine 2018- No [place] Unknown Unknown 40 mg 40 mg 06-20 Abiel U[place] tablet tablet Brandon gabapentin gabapentin 2017- No [place] Unknown Unknown 100 mg 100 mg 06-20 Abiel [facility] capsule capsule Brandon glimepiride glimepiride 2018- No [place] Unknown Unknown 4 mg tablet 4 mg tablet 06-20 Abiel [facility] Nystop Nystop No [place] Unknown Unknown 100,000 100,000 06-20 Abiel [facility] unit/gram unit/gram Brandon topical topical powder powder atorvastati atorvastati 2017- [place] Unknown Unknown n 80 mg n 80 mg 06-20 Abiel [facility] tablet tablet Brandon carvedilol carvedilol 2017-10- No [place] Unknown Unknown 6.25 mg 6.25 mg 07-02 Abiel [facility] tablet tablet Brandon Colace 100 Colace 100 2017-10- No [place] Unknown Unknown mg capsule mg capsule 07-02 Abiel [facility] diphenhydrA diphenhydrA 2017-10- No [place] Unknown Unknown MINE 25 mg MINE 25 mg 12-14 Abiel [facility] capsule capsule Brandon Depakote ER Depakote ER 2017-10- No [place] Unknown Unknown 500 mg 500 mg 09-27 Abiel [facility] tablet,exte tablet,exte Brandon nded nded release release Topamax 50 Topamax 50 2017- No Kandy Unknown Unknown mg tablet mg tablet 06-27 ,Willian Saphris Saphris 2017- No [place] Unknown Unknown (black (black 06-27 ,Willian golden) 10 golden) 10 mg mg sublingual sublingual tablet tablet pantoprazol pantoprazol 2017- No [place] Unknown Unknown e 40 mg e 40 mg 06-27 Abiel [facility] tablet,lauryn tablet,lauryn Brandon yed release yed release raNITIdine raNITIdine 2017- No [place] Unknown Unknown 300 mg 300 mg 06-27 Abiel [facility] tablet tablet Brandon Calcium 500 Calcium 500 2017- No [place] Unknown Unknown With D 500 With D 500 06-27 Abiel [facility] (1,250 mg (1,250 Brandon mg)-400 mg)-400 unit tablet unit tablet Vitamin D3 Vitamin D3 2018- No [place] Unknown Unknown 400 unit 400 unit 06-27 Abiel [facility] capsule capsule Brandon Victoza Victoza No [place] Unknown Unknown 2-Jeison 0.6 2-Jeison 0.6 06-27 Abiel UPTNO mg/0.1 mL mg/0.1 mL Brandon (18 mg/3 (18 mg/3 mL) mL) subcutaneou subcutaneou s pen s pen injector injector atorvastati atorvastati 2017-10- No [place] Unknown Unknown n 80 mg n 80 [...] tablet 10-09 ,Geraldo doxycycline doxycycline 2017-10- No [place] Unknown Unknown monohydrate monohydrate 10-15 Abiel UPTNO 100 mg 100 mg Brandon capsule capsule lithium lithium 2017-10- No Kandy Unknown Unknown carbonate carbonate 11-28 ,Willian 300 mg 300 mg tablet tablet Depakote ER Depakote ER 2017-10- No [place] Unknown Unknown 500 mg 500 mg 11-28 ,Willian tablet,exte tablet,exte nded nded release release sennosides sennosides 2017-10 No [place] Unknown Unknown 8.6 8.6 11-28 Abiel U[facility] [...] mg tablet tablet diphenhydrA diphenhydrA 2018- No [place] Unknown Unknown MINE 25 mg MINE 25 mg 12-14 ,Abiel capsule capsule Brandon clindamycin clindamycin 2018- No [place] Unknown Unknown HCl 300 mg HCl 300 mg 12-25 ,Deb capsule capsule dilTIAZem dilTIAZem No [place] Unknown Unknown 120 mg 120 mg 06-20 ,Abiel tablet tablet Brandon gabapentin gabapentin 2018- No [place] Unknown Unknown 300 mg 300 mg 06-20 ,Abiel capsule capsule Brandon lisinopril lisinopril No [place] Unknown Unknown 20 mg 20 mg 06-20 ,Abiel tablet tablet Brandon multivitami multivitami No [place] Unknown Unknown n capsule n capsule 06-20 Abiel [facility] clopidogrel clopidogrel No [place] Unknown Unknown 75 mg 75 mg 06-20 ,Abiel tablet tablet Brandon gabapentin gabapentin No [place] Unknown Unknown 100 mg 100 mg 06-20 ,Abiel capsule capsule Brandon glimepiride glimepiride No [place] Unknown Unknown 4 mg tablet 4 mg tablet 06-20 Abiel [facility] carvedilol carvedilol 2017- No [place] Unknown Unknown 6.25 mg 6.25 mg 06-20 ,Abiel tablet tablet Brandon Saphris Saphris 2018- No Kandy Unknown Unknown (black (black 06-20 ,Willian golden) 10 [place]) 10 mg mg sublingual sublingual tablet tablet pantoprazol pantoprazol No [place] Unknown Unknown e 40 mg e 40 mg 06-20 ,Abiel tablet,lauryn tablet,lauryn Brandon yed release yed release raNITIdine raNITIdine No [place] Unknown Unknown 300 mg 300 mg 06-20 ,Abiel tablet tablet Brandon Calcium 500 Calcium 500 2017- No [place] Unknown Unknown With D 500 With D 500 06-20 Abiel [facility] mg (1,250 mg (1,250 Brandon mg)-400 mg)-400 unit tablet unit tablet Vitamin D3 Vitamin D3 2018- No [place] Unknown Unknown 1,000 unit 1,000 unit 01-01 ,Abiel capsule capsule Brandon atorvastati atorvastati 2017- No [place] Unknown Unknown n 80 mg n 80 mg 1 10- ,Abiel tablet tablet Brandon atorvastati atorvastati 2017-10 No [place] Unknown Unknown n 80 mg n 80 [...] 24 hour hour carvedilol carvedilol 2017-10- No [place] Unknown Unknown 6.25 mg 6.25 mg 07-02 ,Abiel tablet tablet Brandon Saphris Saphris 2018- No [place] Unknown Unknown (black (black 06-27 ,Willian golden) 10 [place]) 10 mg mg sublingual sublingual tablet tablet Calcium 500 Calcium 500 2018- No [place] Unknown Unknown With D 500 With D 500 06-27 Abiel [facility] mg (1,250 mg (1,250 Brandon mg)-400 mg)-400 unit tablet unit tablet Topamax 50 Topamax 50 2017-10- No Kaitlynn Unknown Unknown mg tablet mg tablet 10-09 Geraldo U[facility]ON Depakote ER Depakote ER No Kandy Unknown Unknown 500 mg 500 mg 10-23 MD,Willian tablet,exte tablet,exte nded nded release release diphenhydrA diphenhydrA No [place] Unknown Unknown MINE 25 mg MINE 25 mg 3-15 ,Abiel capsule capsule Brandon lithium lithium 2018- No Kandy Unknown Unknown carbonate carbonate 11-29- ,Willian 300 mg 300 mg tablet tablet Colace 100 Colace 100 2017-10- No [place] Unknown Unknown mg capsule mg capsule 01-01 Abiel [facility] ipratropium ipratropium No [place] Unknown Unknown bromide bromide 02-19 ,Abiel 0.02 % 0.02 % Brandon solution solution for for inhalation inhalation albuterol albuterol No [place] Unknown Unknown sulfate 2.5 sulfate 2.5 02-19 Abiel [facility] mg/3 mL mg/3 mL Brandon (0.083 %) (0.083 %) solution solution for for nebulizatio nebulizatio n n predniSONE predniSONE 2018- No [place] Unknown Unknown 20 mg 20 mg 12-28 ,Abiel tablet tablet Brandon benzonatate benzonatate No [place] Unknown Unknown 100 mg 100 mg 12-28 ,Abiel capsule capsule Brandon doxycycline doxycycline 2018- No [place] Unknown Unknown hyclate 100 hyclate 100 12-28 [...] MD,Deb tablet tablet carvedilol carvedilol 2017-10 No [place] Unknown Unknown 6.25 mg 6.25 mg 0- ,Abiel tablet tablet Brandon Latuda 20 Latuda 20 2018-10- No Kandy Unknown Unknown mg tablet mg tablet 10-02 ,Willian Latuda 40 Latuda 40 2018-10- No [place] Unknown Unknown mg tablet mg tablet 10-09 ,Willian Aimovig Aimovig 2019-1 No Kaitlynn Unknown Unknown Autoinjecto Autoinjecto -08 Geraldo [facility] r 70 mg/mL r 70 [...] nasal spray,suspe spray,suspe nsion nsion azithromyci azithromyci 2019- Shine Unknown Unknown n 250 mg n 250 mg 11-05 ,[place] tablet tablet Tussin CF Tussin CF Yes Shine Unknown Unknown Cough-Cold Cough-Cold - MD,Aixa 5 mg-10 5 mg-10 mg-100 mg/5 mg-100 mg/5 mL oral mL oral liquid liquid Vital Signs Vital Name Observation Time Observation Value Comments SYSTOLIC mm[Hg] 2019-11-05 18:10:13 128 mm[Hg] mm[Hg] Method: Sit SYSTOLIC mm[Hg] 2019-06-13 18:07:48 142 mm[Hg] mm[Hg] Method: Stand DIASTOLIC mm[Hg] 2019-11-05 18:10:13 80 mm[Hg] mm[Hg] Method: Sit DIASTOLIC mm[Hg] 2019-06-13 18:07:48 72 mm[Hg] mm[Hg] Method: Stand PULSE 2019-11-05 18:10:13 86 /min /min RESP RATE 2019-11-05 18:10:13 18 /min /min TEMP 2019-11-05 18:10:13 98.8 [degF] Procedures This patient has no known procedures. Results This patient has no known results.
--- OUTSIDE RECORDS SUMMARY | 2019-12-01 11:52 | XMS REPORT ---
:1960 Author Organization [facility] Care Team Providers Name Role Phone Unavailable [...] d 06-20 10:30:00 (Andrés) 08:20: Walker 00 [id number] Cardio edema Cardiovasc Resolve 2018-08-16 Becca ular d 06-20 10:00:00 (Andrés) 08:20: Walker 00 [id number] Respiratory dyspnea Respirator Resolve 2019-02-05 Becca present y d 06-20 10:30:00 (Andrés) 08:20: Walker 00 [id number] Respiratory lung sounds Respirator Resolve 2019-02-05 Becca deficit y d 06-20 10:30:00 (Andrés) 08:20: Walker 00 [id number] Endo/Gage anti-coagul Endo/Gage Resolve 2018-07-31 Becca ation d 06-20 11:58:00 (Andrés) therapy 08:20: Walker [id number] Integument skin Integument Active Becca integrity 06-20 (Andrés) risk 08:20: Walker [id number] Elimination urinary Eliminatio Resolve 2018-08-16 Becca incontinenc n d 06-20 10:00:00 (Andrés) e 08:20: Walker [id number] Neuro confusion Neuro/Emot Active Becca present ion 06-20 (Andrés) 08:20: Walker [id number] Neuro anxiety Neuro/Emot Active Becca present ion 06-20 (Andrés) 08:20: Walker [id number] Neuro impaired Neuro/Emot Active Becca decision-ma ion 06-20 (Andrés) caty 08:20: Walker [id number] Activity ADL Activity Active Becca assistance 06-20 (Andrés) required 08:20: Walker [id number] Safety cannot be Safety Active Becca left alone 06-20 (Andrés) 08:20: Walker [id number] Safety fall risk Safety Resolve 2019-08-13 Becca factor d 06-20 10:55:00 (Andrés) present 08:20: Walker [id number] Safety risk for Safety Resolve 2019-08-13 Becca hospitaliza d 06-20 10:55:00 (Andrés) tion 08:20: Walker [id number] Medication oral med Meds Resolve 2018-07-31 Becca assistance d 06-20 11:58:00 (Andrés) required 08:20: Walker [id number] Medication potential Meds Resolve 2018-07-31 Becca clinically d 06-20 11:58:00 (Andrés) significant 08:20: Walker medication 00 [id number] issue Musculoskel requires Musculoske Resolve 2019-06-13 Becca etal human letal d 06-20 13:00:00 (Andrés) assist to 08:20: Walker leave home 00 [id number] Musculoskel transfer Musculoske Resolve 2019-06-13 Becca etal assistance letal d 06-20 13:00:00 [place] required 08:20: [id number] Respiratory oxygen Respirator Resolve 2019-02-05 [place] treatments y d 06-26 10:30:00 [place]-[facility] in home 10:28: h [id number] 00 Safety can be left Safety Active Loreta alone for 06-26 [place]-[facility] only short 10:28: h [id number] periods 00 Elimination urinary Eliminatio Resolve 2017-102018-08-16 [place] frequency n d 10:00:00 [place] 11:58: h [id number] 00 Neuro knowledge/s Neuro/Emot Active 2017-10 [place] kill ion 0 [place]os deficit: cg 11:58: h [id number] 00 Endo/Gage anti-coagul Endo/Gage Resolve 2017-102019-01-29 [place] ation d 1-15 12:45:00 [place]-[facility] therapy 10:00: h [id number] 00 Neuro depressive Neuro/Emot Active 2017-10 [place] feelings ion 1-15 [place] present 10:00: h [id number] 00 Medication oral med Meds Resolve 2017-102019-02-05 [place] assistance d 1-15 10:30:00 [place]-[facility] required 10:00: h [id number] 00 Medication injectable Meds Resolve 2017-102019-02-05 [place] med d -15 10:30:00 [place] assistance 10:00: h [id number] required 00 Medication potential Meds Active 2017-10 L[place] clinically -15 [place] significant 10:00: h [id number] medication 00 issue Endo/Gage knowledge/s Endo/Gage Resolve [...] treatment y 12-25 Emily in home 09:30: [id number] 00 Endo/Gage glucose Endo/Gage Resolve 2019-01-29 Cherrise tolerance d 12-25 12:45:00 [place] problem 09:30: [id number] 00 Nutrition knowledge/s Nutrition Resolve 2019-01-29 Cher[place] kill d 12-25 12:45:00 Emily deficit: pt 09:30: [id number] 00 Elimination urinary Eliminatio Resolve 2019-01-15 [place] incontinenc n d 12-25 11:25:00 Emily e 09:30: [id number] 00 Elimination urinary Eliminatio Resolve 2019-01-15 [place] urgency n d 12-25 11:25:00 [place] 09:30: [id number] 00 Endo/Gage insulin Endo/Gage Resolve 2019-02-05 [place] admn d 02 10:30:00 [place] dependence 09:55: [id number] 00 Endo/Gage glucose Endo/Gage Resolve 2019-02-05 [place] testing d 01-01 10:30:00 [place] dependence 09:55: [id number] 00 Elimination urinary Eliminatio Resolve 2019-01-15 [place] frequency n d 4 11:25:00 Emily 09:55: [id number] 00 Elimination recurring Eliminatio Resolve 2019-02-05 [place] UTI n d 01-01 10:30:00 [place]im[place] 09:55: [id number] 00 Respiratory knowledge/s Respirator Resolve 2019-01-08 Marlene [...] n 0-08 Nila e 09:15: [employer] 00 [id number] Elimination constipatio Eliminatio Active 2018-10 Marlene n [...] Tiffani n 10-27 Nila 09:00: [employer] 00 [id number] Safety [facility] for [facility] N[facility] tion 09:00: [employer] 00 [id number] Safety knowledge/s Safety Active 2018-10 Marlene kill [...] mg capsule capsule carvedilol carvedilol 2017- No [place] Unknown Unknown 6.25 mg 6.25 mg 06-20 Abiel UPTON tablet tablet Brandon Vitamin D3 Vitamin D3 No Crowe 2000 Unknown 50 mcg 50 mcg Sarah UPTON units (2,000 (2,000 unit) unit) capsule capsule dilTIAZem dilTIAZem 2017- No [place] Unknown Unknown 120 mg 120 mg 06-20 Abiel UPTON tablet tablet Brandon Depakote Depakote No Crowe 1-2 Unknown 500 mg 500 mg Sarah UPTON tablet,lauryn tablet,lauryn yed release yed release Colace 100 Colace 100 2017- No [place] Unknown Unknown mg capsule mg capsule 06-20 Abiel UPTON furosemide furosemide No Crowe 20 mg Unknown 20 mg 20 mg Sarah UPTON tablet tablet gabapentin gabapentin 2017- No [place] Unknown Unknown 300 mg 300 mg 06-20 Abiel UPTON capsule capsule Brandon glimepiride glimepiride No Crowe 4 mg Unknown 4 mg tablet 4 mg tablet Sarah UPTON liraglutide liraglutide No Crowe 1 Unknown 0.6 mg/0.1 0.6 mg/0.1 Sarah UPTON injecti mL (18 mg/3 mL (18 mg/3 on mL) mL) subcutaneou subcutaneou s pen s pen injector injector lisinopril lisinopril 2017- No Hank[place] Unknown Unknown 20 mg 20 mg 06-20 Abiel UPTON tablet tablet Brandon Oyster Oyster No Crowe 500 mg Unknown Shell Shell Sarah UPTON Calcium 500 Calcium 500 500 mg 500 mg calcium calcium (1,250 mg) (1,250 mg) tablet tablet multivitami multivitami 2017- No [place] Unknown Unknown n capsule n capsule 06-20 [...] Sarah UPTON capsule capsule oxygen oxygen No [place] Unknown Unknown 06-20 Abiel UPTON clopidogrel clopidogrel 2018- No [place] Unknown Unknown 75 mg 75 mg 06-20 Abiel UPTON tablet tablet Brandon desvenlafax desvenlafax 2018- No [place] Unknown Unknown ine ine 06-20 ,Abiel succinate succinate Brandon ER 100 mg ER 100 mg tablet,exte tablet,exte nded nded release 24 release 24 hr hr diphenhydrA diphenhydrA 2017- No Hankamer Unknown Unknown MINE 25 mg MINE 25 mg 06-20 Abiel UPTON capsule capsule Brandon Depakote ER Depakote ER 2018- No [place] Unknown Unknown 500 mg 500 mg 06-20 Abiel UPTON tablet,exte tablet,exte Brandon nded nded release release famotidine famotidine 2018- No [place] Unknown Unknown 40 mg 40 mg 06-20 Abiel UPTON tablet tablet Brandon gabapentin gabapentin 2017- No [place] Unknown Unknown 100 mg 100 mg 06-20 Abiel UPTON capsule capsule Brandon glimepiride glimepiride 2018- No [place] Unknown Unknown 4 mg tablet 4 mg tablet 06-20 Abiel UPTON Nystop Nystop No Hank[place] Unknown Unknown 100,000 100,000 06-20 Abiel UPTON unit/gram unit/gram Brandon topical topical powder powder atorvastati atorvastati 2017- [place] Unknown Unknown n 80 mg n 80 mg 06-20 Abiel UPTON tablet tablet Brandon carvedilol carvedilol 2017-10- No [place] Unknown Unknown 6.25 mg 6.25 mg 07-02 Abiel UPTON tablet tablet Brandon Colace 100 Colace 100 2017-10- No [place] Unknown Unknown mg capsule mg capsule 07-02 Abiel UPTON diphenhydrA diphenhydrA 2017-10- No [place] Unknown Unknown MINE 25 mg MINE 25 mg 12-14 Abiel UPTON capsule capsule Brandon Depakote ER Depakote ER 2017-10- No [place] Unknown Unknown 500 mg 500 mg 09-27 Abiel UPTON tablet,exte tablet,exte Brandon nded nded release release Topamax 50 Topamax 50 2017- No Kandy Unknown Unknown mg tablet mg tablet 06-27 ,Willian Saphris Saphris 2017- No Kandy Unknown Unknown (black (black 06-27 ,Willian golden) 10 golden) 10 mg mg sublingual sublingual tablet tablet pantoprazol pantoprazol 2017- No [place] Unknown Unknown e 40 mg e 40 mg 06-27 Abiel UPTON tablet,lauryn tablet,lauryn Brandon yed release yed release raNITIdine raNITIdine 2017- No [place] Unknown Unknown 300 mg 300 mg 06-27 Abiel UPTON tablet tablet Brandon Calcium 500 Calcium 500 2017- No [place] Unknown Unknown With D 500 With D 500 06-27 Abiel UPTON (1,250 mg (1,250 Brandon mg)-400 mg)-400 unit tablet unit tablet Vitamin D3 Vitamin D3 2018- No Hankamer Unknown Unknown 400 unit 400 unit 06-27 Abiel UPTON capsule capsule Brandon Victoza Victoza No Hankamer Unknown Unknown 2-Jeison 0.6 2-Jeison 0.6 06-27 Abiel UPTON mg/0.1 mL mg/0.1 mL Brandon (18 mg/3 (18 mg/3 mL) mL) subcutaneou subcutaneou s pen s pen injector injector atorvastati atorvastati 2017-10- No Hankamer Unknown Unknown n 80 mg n 80 [...] tablet 10-09 ,Geraldo doxycycline doxycycline 2017-10- No Hank[place] Unknown Unknown monohydrate monohydrate 10-15 Abiel UPTON 100 mg 100 mg Brandon capsule capsule lithium lithium 2017-10- No Kandy Unknown Unknown carbonate carbonate 11-28 ,Willian 300 mg 300 mg tablet tablet Depakote ER Depakote ER 2017-10- No Kandy Unknown Unknown 500 mg 500 mg 11-28 ,Willian tablet,exte tablet,exte nded nded release release sennosides sennosides 2017-10 No Hankamer Unknown Unknown 8.6 8.6 11-28 Abiel UPTON [...] mg tablet tablet diphenhydrA diphenhydrA 2018- No Hankamer Unknown Unknown MINE 25 mg MINE 25 mg 12-14 ,Abiel capsule capsule Brandon clindamycin clindamycin 2018- No Pate Unknown Unknown HCl 300 mg HCl 300 mg 12-25 ,Deb capsule capsule dilTIAZem dilTIAZem No Hankamer Unknown Unknown 120 mg 120 mg 06-20 ,Abiel tablet tablet Brandon gabapentin gabapentin 2018- No Hankamer Unknown Unknown 300 mg 300 mg 06-20 ,Abiel capsule capsule Brandon lisinopril lisinopril No Hankamer Unknown Unknown 20 mg 20 mg 06-20 ,Abiel tablet tablet Brandon multivitami multivitami No Hankamer Unknown Unknown n capsule n capsule 06-20 Abiel UPTON clopidogrel clopidogrel No Hankamer Unknown Unknown 75 mg 75 mg 06-20 ,Abiel tablet tablet Brandon gabapentin gabapentin No Hankamer Unknown Unknown 100 mg 100 mg 06-20 ,Abiel capsule capsule Brandon glimepiride glimepiride No Hankamer Unknown Unknown 4 mg tablet 4 mg tablet 06-20 Abiel UPTON carvedilol carvedilol 2017- No [place] Unknown Unknown 6.25 mg 6.25 mg 06-20 ,Abiel tablet tablet Brandon Saphris Saphris 2018- No Kandy Unknown Unknown (black (black 06-20 ,Willian golden) 10 [place]) 10 mg mg sublingual sublingual tablet tablet pantoprazol pantoprazol No Hankamer Unknown Unknown e 40 mg e 40 mg 06-20 ,Abiel tablet,lauryn tablet,lauryn Brandon yed release yed release raNITIdine raNITIdine No Hankamer Unknown Unknown 300 mg 300 mg 06-20 ,Abiel tablet tablet Brandon Calcium 500 Calcium 500 2017- No [place] Unknown Unknown With D 500 With D 500 06-20 Abiel UPTON mg (1,250 mg (1,250 Brandon mg)-400 mg)-400 unit tablet unit tablet Vitamin D3 Vitamin D3 2018- No Hankamer Unknown Unknown 1,000 unit 1,000 unit 01-01 ,Abiel capsule capsule Brandon atorvastati atorvastati 2017- No Hankamer Unknown Unknown n 80 mg n 80 mg 1 10- ,Abiel tablet tablet Brandon atorvastati atorvastati 2017-10 No Hankamer Unknown Unknown n 80 mg n 80 [...] 24 hour hour carvedilol carvedilol 2017-10- No Hankamer Unknown Unknown 6.25 mg 6.25 mg 07-02 ,Abiel tablet tablet Brandon Saphris Saphris 2018- No Kandy Unknown Unknown (black (black 06-27 ,Willian golden) 10 [place]) 10 mg mg sublingual sublingual tablet tablet Calcium 500 Calcium 500 2018- No Hankamer Unknown Unknown With D 500 With D 500 06-27 Abiel UPTON mg (1,250 mg (1,250 Brandon mg)-400 mg)-400 unit tablet unit tablet Topamax 50 Topamax 50 2017-10- No Kaitlynn Unknown Unknown mg tablet mg tablet 10-09 Geraldo UPTON Depakote ER Depakote ER No Kandy Unknown Unknown 500 mg 500 mg 10-23 MD,Willian tablet,exte tablet,exte nded nded release release diphenhydrA diphenhydrA No Hank[place] Unknown Unknown MINE 25 mg MINE 25 mg 3-15 ,Abiel capsule capsule Brandon lithium lithium 2018- No Kandy Unknown Unknown carbonate carbonate 11-29- ,Willian 300 mg 300 mg tablet tablet Colace 100 Colace 100 2017-10- No Hank[place] Unknown Unknown mg capsule mg capsule 01-01 Abiel UPTON ipratropium ipratropium No Hank[place] Unknown Unknown bromide bromide 02-19 ,Abiel 0.02 % 0.02 % Brandon solution solution for for inhalation inhalation albuterol albuterol No Hank[place] Unknown Unknown sulfate 2.5 sulfate 2.5 02-19 Abiel UPTON mg/3 mL mg/3 mL Brandon (0.083 %) (0.083 %) solution solution for for nebulizatio nebulizatio n n predniSONE predniSONE 2018- No Hank[place] Unknown Unknown 20 mg 20 mg 12-28 ,Abiel tablet tablet Brandon benzonatate benzonatate No [place] Unknown Unknown 100 mg 100 mg 12-28 ,Abiel capsule capsule Brandon doxycycline doxycycline 2018- No [place] Unknown Unknown hyclate 100 hyclate 100 12-28 [...] MD,Deb tablet tablet carvedilol carvedilol 2017-10 No Hankamer Unknown Unknown 6.25 mg 6.25 mg 0- ,Abiel tablet tablet Brandon Latuda 20 Latuda 20 2018-10- No Kandy Unknown Unknown mg tablet mg tablet 10-02 ,Willian Latuda 40 Latuda 40 2018-10- No Kandy Unknown Unknown mg tablet mg tablet 10-09 ,Willian Aimovig Aimovig 2018-10 No Kaitlynn Unknown Unknown Autoinjecto Autoinjecto -08 [...] Procedures This patient has no known procedures. Plan of Care Planned Activity Planned Date Details Comments Results This patient has no known results.
--- OUTSIDE RECORDS SUMMARY | 2019-12-01 11:52 | XMS REPORT ---
:1960 Author Organization [facility] Care Team Providers Name Role Phone Unavailable [...] d 06-20 10:30:00 (Andrés) 08:20: Walker 00 [id number] Cardio edema Cardiovasc Resolve 2018-08-16 Becca ular d 06-20 10:00:00 (Andrés) 08:20: Walker 00 [id number] Respiratory dyspnea Respirator Resolve 2019-02-05 Becca present y d 06-20 10:30:00 (Andrés) 08:20: Walker 00 [id number] Respiratory lung sounds Respirator Resolve 2019-02-05 Becca deficit y d 06-20 10:30:00 (Andrés) 08:20: Walker 00 [id number] Endo/Gage anti-coagul Endo/Gage Resolve 2018-07-31 Becca ation d 06-20 11:58:00 (Andrés) therapy 08:20: Walker [id number] Integument skin Integument Active Becca integrity 06-20 (Andrés) risk 08:20: Walker [id number] Elimination urinary Eliminatio Resolve 2018-08-16 Becca incontinenc n d 06-20 10:00:00 (Andrés) e 08:20: Walker [id number] Neuro confusion Neuro/Emot Active Becca present ion 06-20 (Andrés) 08:20: Walker [id number] Neuro anxiety Neuro/Emot Active Becca present ion 06-20 (Andrés) 08:20: Walker [id number] Neuro impaired Neuro/Emot Active Becca decision-ma ion 06-20 (Andrés) caty 08:20: Walker [id number] Activity ADL Activity Active Becca assistance 06-20 (Andrés) required 08:20: Walker [id number] Safety cannot be Safety Active Becca left alone 06-20 (Andrés) 08:20: Walker [id number] Safety fall risk Safety Resolve 2019-08-13 Becca factor d 06-20 10:55:00 (Andrés) present 08:20: Walker [id number] Safety risk for Safety Resolve 2019-08-13 Becca hospitaliza d 06-20 10:55:00 (Andrés) tion 08:20: Walker [id number] Medication oral med Meds Resolve 2018-07-31 Becca assistance d 06-20 11:58:00 (Andrés) required 08:20: Walker [id number] Medication potential Meds Resolve 2018-07-31 Becca clinically d 06-20 11:58:00 (Andrés) significant 08:20: Walker medication 00 [id number] issue Musculoskel requires Musculoske Resolve 2019-06-13 Becca etal human letal d 06-20 13:00:00 (Andrés) assist to 08:20: Walker leave home 00 [id number] Musculoskel transfer Musculoske Resolve 2019-06-13 Becca etal assistance letal d 06-20 13:00:00 Guidelli required 08:20: [id number] Respiratory oxygen Respirator Resolve 2019-02-05 Loreta treatments y d 06-26 10:30:00 [place] in home 10:28: h [id number] Safety can be left Safety Active Loreta alone for 06-26 [place] only short 10:28: h [id number] periods 00 Elimination urinary Eliminatio Resolve 2017-102018-08-16 Loreta frequency n d 10:00:00 [place] 11:58: h [id number] 00 Neuro knowledge/s Neuro/Emot Active 2017-10 Loreta kill ion 0 [place] deficit: cg 11:58: h [id number] 00 Endo/Gage anti-coagul Endo/Gage Resolve 2017-102019-01-29 Loreta ation d 1-15 12:45:00 [place] therapy 10:00: h [id number] 00 Neuro depressive Neuro/Emot Active 2017-10 Loreta feelings ion 1-15 [place] present 10:00: h [id number] 00 Medication oral med Meds Resolve 2017-102019-02-05 Loreta assistance d 1-15 10:30:00 Guy-Zos required 10:00: h [id number] 00 Medication injectable Meds Resolve 2017-102019-02-05 Loreta med d -15 10:30:00 Guy-Zos assistance 10:00: h [id number] required 00 Medication potential Meds Active 2017-10 Loreta clinically -15 [place] significant 10:00: h [id number] medication 00 issue Endo/Gage knowledge/s Endo/Gage Resolve [...] treatment y 12-25 Emily in home 09:30: [id number] 00 Endo/Gage glucose Endo/Gage Resolve 2019-01-29 Cherrise tolerance d 12-25 12:45:00 Emily problem 09:30: [id number] Nutrition knowledge/s Nutrition Resolve 2019-01-29 Cherrise kill d 12-25 12:45:00 [place] deficit: pt 09:30: [id number] 00 Elimination urinary Eliminatio Resolve 2019-01-15 Cherrise incontinenc n d 12-25 11:25:00 Emily e 09:30: [id number] 00 Elimination urinary Eliminatio Resolve 2019-01-15 Cherrise urgency n d 12-25 11:25:00 [place] 09:30: [id number] 00 Endo/Gage insulin Endo/Gage Resolve 2019-02-05 Cherrise admn d 02 10:30:00 [place] dependence 09:55: [id number] 00 Endo/Gage glucose Endo/Gage Resolve 2019-02-05 Cherrise testing d 01-01 10:30:00 [place] dependence 09:55: [id number] 00 Elimination urinary Eliminatio Resolve 2019-01-15 Cherrise frequency n d 4 11:25:00 [place] 09:55: [id number] 00 Elimination recurring Eliminatio Resolve 2019-02-05 Cherrise UTI n d 01-01 10:30:00 Emily 09:55: [id number] 00 Respiratory knowledge/s Respirator Resolve 2019-01-08 Marlene [...] 13:00: RN 00 Nutrition changing Nutrition Active Etrra weight/appe 06-13 Malnoske tite 13:00: RN 00 Elimination urinary Eliminatio Active 2018-10 Tiffani incontinenc n 0-08 Nila e 09:15: [employer] 00 [id number] Elimination constipatio Eliminatio Active 2018-10 Marlene n [...] Tiffani n 10-27 Nila 09:00: [employer] 00 [id number] Safety risk for Safety Active 2018-10 Tiffani hospitaliza 10-27 Nila tion 09:00: [employer] 00 [id number] Safety knowledge/s Safety Active 2018-10 Marlene kill 11-08 Carrier RN deficit: cg 15:55: 00 Integument [...] mg capsule capsule carvedilol carvedilol 2017- No [place] Unknown Unknown 6.25 mg 6.25 mg 06-20 Abiel UPTON tablet tablet Brandon Vitamin D3 Vitamin D3 No Crowe 2000 Unknown 50 mcg 50 mcg Sarah UPTON units (2,000 (2,000 unit) unit) capsule capsule dilTIAZem dilTIAZem 2017- No [place] Unknown Unknown 120 mg 120 mg 06-20 Abiel UPTON tablet tablet Brandon Depakote Depakote No Crowe 1-2 Unknown 500 mg 500 mg Sarah UPTON tablet,lauryn tablet,lauryn yed release yed release Colace 100 Colace 100 2017- No [place] Unknown Unknown mg capsule mg capsule 06-20 Abiel U[facility]ON furosemide furosemide No Crowe 20 mg Unknown 20 mg 20 mg Sarah UPTON tablet tablet gabapentin gabapentin 2017- No [place] Unknown Unknown 300 mg 300 mg 06-20 Abiel UPTON capsule capsule Brandon glimepiride glimepiride No Crowe 4 mg Unknown 4 mg tablet 4 mg tablet Sarah UPTON liraglutide liraglutide No Crowe 1 Unknown 0.6 mg/0.1 0.6 mg/0.1 Sarah UPTON injecti mL (18 mg/3 mL (18 mg/3 on mL) mL) subcutaneou subcutaneou s pen s pen injector injector lisinopril lisinopril 2017- No [place] Unknown Unknown 20 mg 20 mg 06-20 Abiel UPTON tablet tablet Brandon Oyster Oyster No Crowe 500 mg Unknown Shell Shell Sarah UPTON Calcium 500 Calcium 500 500 mg 500 mg calcium calcium (1,250 mg) (1,250 mg) tablet tablet multivitami multivitami 2017- No [place] Unknown Unknown n capsule n capsule 06-20 [...] Sarah UPTON capsule capsule oxygen oxygen No [place] Unknown Unknown 06-20 Abiel UPTON clopidogrel clopidogrel 2017- No [place] Unknown Unknown 75 mg 75 mg 06-20 Abiel UPTON tablet tablet Brandon desvenlafax desvenlafax 2017- No [place] Unknown Unknown ine ine 06-20 ,Abiel succinate succinate Brandon ER 100 mg ER 100 mg tablet,exte tablet,exte nded nded release 24 release 24 hr hr diphenhydrA diphenhydrA 2017- No [place] Unknown Unknown MINE 25 mg MINE 25 mg 06-20 Abiel UPTON capsule capsule Brandon Depakote ER Depakote ER 2017- No [place] Unknown Unknown 500 mg 500 mg 06-20 Abiel UPTON tablet,exte tablet,exte Brandon nded nded release release famotidine famotidine 2017- No [place] Unknown Unknown 40 mg 40 mg 06-20 Abiel UPTON tablet tablet Brandon gabapentin gabapentin 2017- No [place] Unknown Unknown 100 mg 100 mg 06-20 Abiel UPTON capsule capsule Brandon glimepiride glimepiride 2017- No [place] Unknown Unknown 4 mg tablet 4 mg tablet 06-20 Abiel U[facility] Nystop Nystop No [place] Unknown Unknown 100,000 100,000 06-20 Abiel UPTON unit/gram unit/gram Brandon topical topical powder powder atorvastati atorvastati 2017- No [place] Unknown Unknown n 80 mg n 80 mg 06-20 Abiel UPTON tablet tablet Brandon carvedilol carvedilol 2017-10- No [place] Unknown Unknown 6.25 mg 6.25 mg 07-02 ,Abiel tablet tablet Brandon Colace 100 Colace 100 2017-10- No [place] Unknown Unknown mg capsule mg capsule 07-02 Abiel UPTON diphenhydrA diphenhydrA 2017-10- No [place] Unknown Unknown MINE 25 mg MINE 25 mg 12-14 ,Abiel capsule capsule Brandon Depakote ER Depakote ER 2017-10- No [place] Unknown Unknown 500 mg 500 mg 09-27 ,Abiel tablet,exte tablet,exte Brandon nded nded release release Topamax 50 Topamax 50 2017- Kandy Unknown Unknown mg tablet mg tablet 06-27 ,Willian Saphris Saphris 2017- No Kandy Unknown Unknown (black (black 06-27 ,Willian golden) 10 [place]) 10 mg mg sublingual sublingual tablet tablet pantoprazol pantoprazol 2017- No [place] Unknown Unknown e 40 mg e 40 mg 06-27 ,Abiel tablet,lauryn tablet,lauryn Brandon yed release yed release raNITIdine raNITIdine 2017- No [place] Unknown Unknown 300 mg 300 mg 06-27 Abiel UPTON tablet tablet Brandon Calcium 500 Calcium 500 2017- No [place] Unknown Unknown With D 500 With D 500 06-27 Abiel UPTON mg (1,250 mg (1,250 Brandon mg)-400 mg)-400 unit tablet unit tablet Vitamin D3 Vitamin D3 2018- No Steuben Unknown Unknown 400 unit 400 unit 06-27 Abiel UPTON capsule capsule Brandon Victoza Victoza No [place] Unknown Unknown 2-Jeison 0.6 2-Jeison 0.6 06-27 Abiel UPTON mg/0.1 mL mg/0.1 mL Brandon (18 mg/3 (18 mg/3 mL) mL) subcutaneou subcutaneou s pen s pen injector injector atorvastati atorvastati 2017-10- No [place]uben Unknown Unknown n 80 mg n 80 [...] tablet 10-09 ,Geraldo doxycycline doxycycline 2017-10- No [place] Unknown Unknown monohydrate monohydrate 10-15 ,Abiel 100 mg 100 mg Brandon capsule capsule lithium lithium 2017-10- No Kandy Unknown Unknown carbonate carbonate 11-28 ,Willian 300 mg 300 mg tablet tablet Depakote ER Depakote ER 2017-10- No Kandy Unknown Unknown 500 mg 500 mg 11-28 ,Willian tablet,exte tablet,exte nded nded release release sennosides sennosides 2017-10 No Steuben Unknown Unknown 8.6 8.6 11-28 ,Abiel mg-docusate [...] mg tablet tablet diphenhydrA diphenhydrA 2018- No [place] Unknown Unknown MINE 25 mg MINE 25 mg 12-14 ,Abiel capsule capsule Brandon clindamycin clindamycin 2018- No Pate Unknown Unknown HCl 300 mg HCl 300 mg 12-25 ,Deb capsule capsule dilTIAZem dilTIAZem No Ste[place] Unknown Unknown 120 mg 120 mg 06-20 ,Abiel tablet tablet Brandon gabapentin gabapentin 2018- No [place]uben Unknown Unknown 300 mg 300 mg 06-20 ,Abiel capsule capsule Brandon lisinopril lisinopril No Ste[place] Unknown Unknown 20 mg 20 mg 06-20 ,Abiel tablet tablet Brandon multivitami multivitami No Steuben Unknown Unknown n capsule n capsule 06-20 ,Abiel Taylor clopidogrel clopidogrel No Steuben Unknown Unknown 75 mg 75 mg 06-20 ,Abiel tablet tablet Brandon gabapentin gabapentin No [place] Unknown Unknown 100 mg 100 mg 06-20 ,Abiel capsule capsule Brandon glimepiride glimepiride No [place] Unknown Unknown 4 mg tablet 4 mg tablet 06-20 Abiel UPTON carvedilol carvedilol 2017- No [place] Unknown Unknown 6.25 mg 6.25 mg 06-20 ,Abiel tablet tablet Brandon Saphris Saphris 2018- No Kandy Unknown Unknown (black (black 06-20 ,Willian golden) 10 [place]) 10 mg mg sublingual sublingual tablet tablet pantoprazol pantoprazol No [place] Unknown Unknown e 40 mg e 40 mg 06-20 ,Abiel tablet,lauryn tablet,lauryn Brandon yed release yed release raNITIdine raNITIdine No [place]uben Unknown Unknown 300 mg 300 mg 06-20 ,Abiel tablet tablet Brandon Calcium 500 Calcium 500 2017- No [place] Unknown Unknown With D 500 With D 500 06-20 Abiel UPTON (1,250 mg (1,250 Brandon mg)-400 mg)-400 unit tablet unit tablet Vitamin D3 Vitamin D3 2018- No [place]uben Unknown Unknown 1,000 unit 1,000 unit 01-01 ,Abiel capsule capsule Brandon atorvastati atorvastati 2017- No [place] Unknown Unknown n 80 mg n 80 mg 10-31 ,Abiel tablet tablet Brandon atorvastajudit atorvastati 2017-10 No [place] Unknown Unknown n 80 mg n 80 [...] 24 hour hour carvedilol carvedilol 2017-10- No [place] Unknown Unknown 6.25 mg 6.25 mg 07-02 ,Abiel tablet tablet Brandon Saphris Saphris 2018- No Kandy Unknown Unknown (black (black 06-27- ,Willian golden) 10 golden) 10 mg mg sublingual sublingual tablet tablet Calcium 500 Calcium 500 2018- No [place] Unknown Unknown With D 500 With D 500 06-27 Abiel UPTON (1,250 mg (1,250 Brandon mg)-400 mg)-400 unit tablet unit tablet Topamax 50 Topamax 50 2017-10- No Kaitlynn Unknown Unknown mg tablet mg tablet 10-09 Geraldo UPTON Depakote ER Depakote ER No Kandy Unknown Unknown 500 mg 500 mg 10-23 ,Willian tablet,exte tablet,exte nded nded release release diphenhydrA diphenhydrA No [place]uben Unknown Unknown MINE 25 mg MINE 25 mg - ,Abiel capsule capsule Brandon lithium lithium 2018- No Kandy Unknown Unknown carbonate carbonate 11-29 ,Willian 300 mg 300 mg tablet tablet Colace 100 Colace 100 2017-10- No [place] Unknown Unknown mg capsule mg capsule 01-01 Abiel UPTON ipratropium ipratropium No [place] Unknown Unknown bromide bromide 02-19 ,Abiel 0.02 % 0.02 % Brandon solution solution for for inhalation inhalation albuterol albuterol No [place] Unknown Unknown sulfate 2.5 sulfate 2.5 - Abiel UPTON mg/3 mL mg/3 mL Brandon (0.083 %) (0.083 %) solution solution for for nebulizatio nebulizatio n n predniSONE predniSONE 2018- No [place] Unknown Unknown 20 mg 20 mg 12-28 ,Abiel tablet tablet Brandon benzonatate benzonatate No [place] Unknown Unknown 100 mg 100 mg 12-28 ,Abiel capsule capsule Brandon doxycycline doxycycline 2018- No [place] Unknown Unknown hyclate 100 hyclate 100 12-28 [...] tablet 01-29 Willian UPTON LaMICtal 25 LaMICtal 25 2018- No Kandy Unknown Unknown mg tablet mg tablet 01-29 ,Willian Invokana Invokana 2018- No Pate Unknown Unknown 100 mg 100 mg 02-20 MD,Deb tablet tablet Diflucan Diflucan No Pate Unknown Unknown 150 mg 150 mg 02-20 MD,Deb tablet tablet LaMICtal 25 LaMICtal 25 2018- No Kandy Unknown Unknown mg tablet mg tablet 03-05 12- ,Willian Topamax 50 Topamax 50 2018- No [...] mg tablet 05-31 ,Willian Lantus Lantus 2018-10 No Pate Unknown Unknown Solostar Solostar 0-17 MD,Deb U-100 U-100 Insulin 100 Insulin 100 unit/mL (3 unit/mL (3 mL) mL) subcutaneou subcutaneou s pen s pen Topamax 50 Topamax 50 2018-10 No Kaitlynn Unknown Unknown mg tablet mg tablet 0-17 ,Geraldo Saphris 5 Saphris 5 2018-10 No Kandy Unknown Unknown mg mg 0-17 ,Willian sublingual sublingual tablet tablet Rexulti 2 Rexulti 2 2018- No Kandy Unknown Unknown mg tablet mg tablet 05-31 ,Willian Invokana Invokana No Pate Unknown Unknown 100 mg 100 mg 5- MD,Deb tablet tablet carvedilol carvedilol 2017-10 No [place] Unknown Unknown 6.25 mg 6.25 mg 0- MD,Abiel tablet tablet Brandon Latuda 20 Latuda 20 2018-10- No Kandy Unknown Unknown mg tablet mg tablet 10-02 ,Willian Latuda 40 Latuda 40 2018-10- Yes Kandy Unknown Unknown mg tablet mg tablet 10-09 ,Willian Aimovig Aimovig 2018-10 Yes Kaitlynn Unknown Unknown Autoinjecto Autoinjecto 10-09 MD,Geraldo r 70 mg/mL r 70 mg/mL subcutaneou subcutaneou s s auto-inject auto-inject or or Latuda 60 Latuda 60 2018-10 Yes Kandy Unknown Unknown mg tablet mg tablet 10-27 Willian UPTON LaMICtal LaMICtal 2018-10 Yes Kandy Unknown Unknown mg tablet mg tablet 11-25 Willian UPTON Vital Signs Vital Name Observation [...]
--- OUTSIDE RECORDS SUMMARY | 2019-12-01 11:52 | XMS REPORT ---
:1960 Author Organization [facility] Care Team Providers Name Role Phone Unavailable [...] d 06-20 10:30:00 (Andrés) 08:20: Walker 00 [id number] Cardio edema Cardiovasc Resolve 2018-08-16 Becca ular d 06-20 10:00:00 (Andrés) 08:20: Walker 00 [id number] Respiratory dyspnea Respirator Resolve 2019-02-05 Becca present y d 06-20 10:30:00 (Andrés) 08:20: Walker 00 [id number] Respiratory lung sounds Respirator Resolve 2019-02-05 Becca deficit y d 06-20 10:30:00 (Andrés) 08:20: Walker 00 [id number] Endo/Gage anti-coagul Endo/Gage Resolve 2018-07-31 Becca ation d 06-20 11:58:00 (Andrés) therapy 08:20: Walker [id number] Integument skin Integument Active Becca integrity 06-20 (Andrés) risk 08:20: Walker [id number] Elimination urinary Eliminatio Resolve 2018-08-16 Becca incontinenc n d 06-20 10:00:00 (Andrés) e 08:20: Walker [id number] Neuro confusion Neuro/Emot Active Becca present ion 06-20 (Andrés) 08:20: Walker [id number] Neuro anxiety Neuro/Emot Active Becca present ion 06-20 (Andrés) 08:20: Walker [id number] Neuro impaired Neuro/Emot Active Becca decision-ma ion 06-20 (Andrés) caty 08:20: Walker [id number] Activity ADL Activity Active Becca assistance 06-20 (Andrés) required 08:20: Walker [id number] Safety cannot be Safety Active Becca left alone 06-20 (Andrés) 08:20: Walker [id number] Safety fall risk Safety Resolve 2019-08-13 Becca factor d 06-20 10:55:00 (Andrés) present 08:20: Walker [id number] Safety risk for Safety Resolve 2019-08-13 Becca hospitaliza d 06-20 10:55:00 (Andrés) tion 08:20: Walker [id number] Medication oral med Meds Resolve 2018-07-31 Becca assistance d 06-20 11:58:00 (Andrés) required 08:20: Walker [id number] Medication potential Meds Resolve 2018-07-31 Becca clinically d 06-20 11:58:00 (Andrés) significant 08:20: Walker medication 00 [id number] issue Musculoskel requires Musculoske Resolve 2019-06-13 Becca etal human letal d 06-20 13:00:00 (Andrés) assist to 08:20: Walker leave home 00 [id number] Musculoskel transfer Musculoske Resolve 2019-06-13 Becca etal assistance letal d 06-20 13:00:00 Guidelli required 08:20: [id number] 00 Respiratory oxygen Respirator Resolve 2019-02-05 Loreta treatments y d 06-26 10:30:00 [place] in home 10:28: h [id number] 00 Safety can be left Safety Active Loreta alone for 06-26 [place]-[facility] only short 10:28: h [id number] periods 00 Elimination urinary Eliminatio Resolve 2017-102018-08-16 Loreta frequency n d 10:00:00 [place] 11:58: h [id number] 00 Neuro knowledge/s Neuro/Emot Active 2017-10 Loreta kill ion 0 Guy-[place]os deficit: cg 11:58: h [id number] 00 Endo/Gage anti-coagul Endo/Gage Resolve 2017-102019-01-29 Loreta ation d 1-15 12:45:00 [place] therapy 10:00: h [id number] 00 Neuro depressive Neuro/Emot Active 2017-10 Loreta feelings ion 1-15 [place] present 10:00: h [id number] 00 Medication oral med Meds Resolve 2017-102019-02-05 Loreta assistance d 1-15 10:30:00 [place] required 10:00: h [id number] 00 Medication injectable Meds Resolve 2017-102019-02-05 Loreta med d -15 10:30:00 [place] assistance 10:00: h [id number] required 00 Medication potential Meds Active 2017-10 Loreta clinically -15 Guy-[facility] significant 10:00: h [id number] medication 00 issue Endo/Gage knowledge/s Endo/Gage Resolve 2019-01-08 Marlene kill d 16 15:40:00 Carrier RN deficit: pt 14:45: 00 Nutrition nutritional Nutrition Resolve 2019-01-29 Marleen restriction d -16 12:45:00 Carrier RN s [...] treatment y 12-25 Emily in home 09:30: [id number] 00 Endo/Gage glucose Endo/Gage Resolve 2019-01-29 Cherrise tolerance d 12-25 12:45:00 [place] problem 09:30: [id number] 00 Nutrition knowledge/s Nutrition Resolve 2019-01-29 Cherrise kill d 12-25 12:45:00 Emily deficit: pt 09:30: [id number] 00 Elimination urinary Eliminatio Resolve 2019-01-15 Cherrise incontinenc n d 12-25 11:25:00 Emily e 09:30: [id number] 00 Elimination urinary Eliminatio Resolve 2019-01-15 Cherrise urgency n d 12-25 11:25:00 [place] 09:30: [id number] 00 Endo/Gage insulin Endo/Gage Resolve 2019-02-05 Cherrise admn d 02 10:30:00 [place] dependence 09:55: [id number] 00 Endo/Gage glucose Endo/Gage Resolve 2019-02-05 Cherrise testing d 01-01 10:30:00 [place] dependence 09:55: [id number] 00 Elimination urinary Eliminatio Resolve 2019-01-15 Cherrise frequency n d 4 11:25:00 Emily 09:55: [id number] 00 Elimination recurring Eliminatio Resolve 2019-02-05 Cherrise UTI n d 01-01 10:30:00 Emily 09:55: [id number] 00 Respiratory knowledge/s Respirator Resolve 2019-01-08 Marlene [...] n 0-08 Nila e 09:15: [employer] 00 [id number] Elimination constipatio Eliminatio Active 2018-10 Marlene n [...] Tiffani n 10-27 Nila 09:00: [employer] 00 [id number] Safety risk for [facility] Nila tion 09:00: [employer] 00 [id number] Safety knowledge/s Safety Active 2018-10 Marlene kill [...] mg capsule capsule carvedilol carvedilol 2017- No [place] Unknown Unknown 6.25 mg 6.25 mg 06-20 Abiel UPTON tablet tablet Brandon Vitamin D3 Vitamin D3 No Crowe 2000 Unknown 50 mcg 50 mcg Sarah U[facility] units (2,000 (2,000 unit) unit) capsule capsule dilTIAZem dilTIAZem 2017- No [place] Unknown Unknown 120 mg 120 mg 06-20 Abiel U[facility] tablet tablet Brandon Depakote Depakote No Crowe 1-2 Unknown 500 mg 500 mg Sarah U[facility] tablet,lauryn tablet,lauryn yed release yed release Colace 100 Colace 100 2017- No [place] Unknown Unknown mg capsule mg capsule 06-20 Abiel U[facility] furosemide furosemide No Crowe 20 mg Unknown 20 mg 20 mg Sarah U[facility]ON tablet tablet gabapentin gabapentin 2017- No [place] Unknown Unknown 300 mg 300 mg 06-20 Abiel U[facility]ON capsule capsule Brandon glimepiride glimepiride No Crowe 4 mg Unknown 4 mg tablet 4 mg tablet Sarah U[facility]ON liraglutide liraglutide No Crowe 1 Unknown 0.6 mg/0.1 0.6 mg/0.1 Sarah UPTON injecti mL (18 mg/3 mL (18 mg/3 on mL) mL) subcutaneou subcutaneou s pen s pen injector injector lisinopril lisinopril 2017- No [place] Unknown Unknown 20 mg 20 mg 06-20 Abiel U[facility]ON tablet tablet Brandon Oyster Oyster No Crowe 500 mg Unknown Shell Shell Sarah [facility] Calcium 500 Calcium 500 500 mg 500 mg calcium calcium (1,250 mg) (1,250 mg) tablet tablet multivitami multivitami 2017- No [place] Unknown Unknown n capsule n capsule 06-20 [...] Sarah UPTON capsule capsule oxygen oxygen No [place] Unknown Unknown 06-20 Abiel U[facility] clopidogrel clopidogrel 2018- No [place] Unknown Unknown 75 mg 75 mg 06-20 Abiel UPTON tablet tablet Brandon desvenlafax desvenlafax 2018- No [place] Unknown Unknown ine ine 06-20 ,Abiel succinate succinate Brandon ER 100 mg ER 100 mg tablet,exte tablet,exte nded nded release 24 release 24 hr hr diphenhydrA diphenhydrA 2017- No [place] Unknown Unknown MINE 25 mg MINE 25 mg 06-20 Abiel [facility] capsule capsule Brandon Depakote ER Depakote ER 2018- No [place] Unknown Unknown 500 mg 500 mg 06-20 Abiel U[facility] tablet,exte tablet,exte Brandon nded nded release release famotidine famotidine 2018- No [place] Unknown Unknown 40 mg 40 mg 06-20 Abiel U[facility]ON tablet tablet Brandon gabapentin gabapentin 2017- No [place] Unknown Unknown 100 mg 100 mg 06-20 Abiel U[facility] capsule capsule Brandon glimepiride glimepiride 2018- No [place] Unknown Unknown 4 mg tablet 4 mg tablet 06-20 Abiel [facility] Nystop Nystop No [place] Unknown Unknown 100,000 100,000 06-20 Abiel U[facility] unit/gram unit/gram Brandon topical topical powder powder atorvastati atorvastati 2017- [place] Unknown Unknown n 80 mg n 80 mg 06-20 Abiel U[facility] tablet tablet Brandon carvedilol carvedilol 2017-10- No [place] Unknown Unknown 6.25 mg 6.25 mg 07-02 Abiel UPTON tablet tablet Brandon Colace 100 Colace 100 2017-10- No [place] Unknown Unknown mg capsule mg capsule 07-02 Abiel U[facility] diphenhydrA diphenhydrA 2017-10- No [place] Unknown Unknown MINE 25 mg MINE 25 mg 12-14 Abiel U[facility] capsule capsule Brandon Depakote ER Depakote ER 2017-10- No [place] Unknown Unknown 500 mg 500 mg 09-27 Abiel U[facility]ON tablet,exte tablet,exte Brandon nded nded release release Topamax 50 Topamax 50 2017- No Kandy Unknown Unknown mg tablet mg tablet 06-27 ,Willian Saphris Saphris 2017- No Kandy Unknown Unknown (black (black 06-27 ,Willian golden) 10 golden) 10 mg mg sublingual sublingual tablet tablet pantoprazol pantoprazol 2017- No [place] Unknown Unknown e 40 mg e 40 mg 06-27 Abiel U[facility] tablet,lauryn tablet,lauryn Brandon yed release yed release raNITIdine raNITIdine 2017- No [place] Unknown Unknown 300 mg 300 mg 06-27 Abiel [facility] tablet tablet Brandon Calcium 500 Calcium 500 2017- No [place] Unknown Unknown With D 500 With D 500 06-27 Abiel U[facility] (1,250 mg (1,250 Brandon mg)-400 mg)-400 unit tablet unit tablet Vitamin D3 Vitamin D3 2018- No [place] Unknown Unknown 400 unit 400 unit 06-27 Abiel UPTON capsule capsule Brandon Victoza Victoza No [place] Unknown Unknown 2-Jeison 0.6 2-Jeison 0.6 06-27 Abiel U[facility] mg/0.1 mL mg/0.1 mL Brandon (18 mg/3 (18 mg/3 mL) mL) subcutaneou subcutaneou s pen s pen injector injector atorvastati atorvastati 2017-10- No [place] Unknown Unknown n 80 mg n 80 [...] tablet 10-09 ,Geraldo doxycycline doxycycline 2017-10- No [place] Unknown Unknown monohydrate monohydrate 10-15 Abiel UPTON 100 mg 100 mg Brandon capsule capsule lithium lithium 2017-10- No Kandy Unknown Unknown carbonate carbonate 11-28 ,Willian 300 mg 300 mg tablet tablet Depakote ER Depakote ER 2017-10- No Kandy Unknown Unknown 500 mg 500 mg 11-28 ,Willian tablet,exte tablet,exte nded nded release release sennosides sennosides 2017-10 No [place] Unknown Unknown 8.6 8.6 11-28 Abiel UPTON [...] mg tablet tablet diphenhydrA diphenhydrA 2018- No [place] Unknown Unknown MINE 25 mg MINE 25 mg 12-14 ,Abiel capsule capsule Brandon clindamycin clindamycin 2018- No Pate Unknown Unknown HCl 300 mg HCl 300 mg 12-25 ,Deb capsule capsule dilTIAZem dilTIAZem No [place] Unknown Unknown 120 mg 120 mg 06-20 ,Abiel tablet tablet Brandon gabapentin gabapentin 2018- No [place] Unknown Unknown 300 mg 300 mg 06-20 ,Abiel capsule capsule Brandon lisinopril lisinopril No [place] Unknown Unknown 20 mg 20 mg 06-20 ,Abiel tablet tablet Brandon multivitami multivitami No [place] Unknown Unknown n capsule n capsule 06-20 Abiel U[facility]ON clopidogrel clopidogrel No [place] Unknown Unknown 75 mg 75 mg 06-20 ,Abiel tablet tablet Brandon gabapentin gabapentin No [place] Unknown Unknown 100 mg 100 mg 06-20 ,Abiel capsule capsule Brandon glimepiride glimepiride No [place] Unknown Unknown 4 mg tablet 4 mg tablet 06-20 Abiel U[facility] carvedilol carvedilol 2017- No [place] Unknown Unknown 6.25 mg 6.25 mg 06-20 ,Abiel tablet tablet Brandon Saphris Saphris 2018- No Kandy Unknown Unknown (black (black 06-20 ,Willian golden) 10 [place]) 10 mg mg sublingual sublingual tablet tablet pantoprazol pantoprazol No [place] Unknown Unknown e 40 mg e 40 mg 06-20 ,Abiel tablet,lauryn tablet,lauryn Brandon yed release yed release raNITIdine raNITIdine No [place] Unknown Unknown 300 mg 300 mg 06-20 ,Abiel tablet tablet Brandon Calcium 500 Calcium 500 2017- No [place] Unknown Unknown With D 500 With D 500 06-20 Abiel UPTON mg (1,250 mg (1,250 Brandon mg)-400 mg)-400 unit tablet unit tablet Vitamin D3 Vitamin D3 2018- No [place] Unknown Unknown 1,000 unit 1,000 unit 01-01 ,Abiel capsule capsule Brandon atorvastati atorvastati 2017- No [place] Unknown Unknown n 80 mg n 80 mg 1 10- ,Abiel tablet tablet Brandon atorvastati atorvastati 2017-10 No [place] Unknown Unknown n 80 mg n 80 [...] 24 hour hour carvedilol carvedilol 2017-10- No [place] Unknown Unknown 6.25 mg 6.25 mg 07-02 ,Abiel tablet tablet Brandon Saphris Saphris 2018- No Kandy Unknown Unknown (black (black 06-27 ,Willian golden) 10 [place]) 10 mg mg sublingual sublingual tablet tablet Calcium 500 Calcium 500 2018- No [place] Unknown Unknown With D 500 With D 500 06-27 Abiel UPTON mg (1,250 mg (1,250 Brandon mg)-400 mg)-400 unit tablet unit tablet Topamax 50 Topamax 50 2017-10- No Kaitlynn Unknown Unknown mg tablet mg tablet 10-09 Geraldo UPTON Depakote ER Depakote ER No Kandy Unknown Unknown 500 mg 500 mg 10-23 MD,Willian tablet,exte tablet,exte nded nded release release diphenhydrA diphenhydrA No [place] Unknown Unknown MINE 25 mg MINE 25 mg 3-15 ,Abiel capsule capsule Brandon lithium lithium 2018- No Kandy Unknown Unknown carbonate carbonate 11-29- ,Willian 300 mg 300 mg tablet tablet Colace 100 Colace 100 2017-10- No [place] Unknown Unknown mg capsule mg capsule 01-01 Abiel UPTON ipratropium ipratropium No [place] Unknown Unknown bromide bromide 02-19 ,Abiel 0.02 % 0.02 % Brandon solution solution for for inhalation inhalation albuterol albuterol No [place] Unknown Unknown sulfate 2.5 sulfate 2.5 02-19 Abiel U[facility]ON mg/3 mL mg/3 mL Brandon (0.083 %) (0.083 %) solution solution for for nebulizatio nebulizatio n n predniSONE predniSONE 2018- No [place] Unknown Unknown 20 mg 20 mg 12-28 ,Abiel tablet tablet Brandon benzonatate benzonatate No [place] Unknown Unknown 100 mg 100 mg 12-28 ,Abiel capsule capsule Brandon doxycycline doxycycline 2018- No [place] Unknown Unknown hyclate 100 hyclate 100 12-28 [...] MD,Deb tablet tablet carvedilol carvedilol 2017-10 No [place] Unknown Unknown 6.25 mg 6.25 mg 0- [...]
--- OUTSIDE RECORDS SUMMARY | 2019-12-01 11:52 | XMS REPORT | Continuity of Care Document ---
:1960 External Reference #:[id number] Author Name Adilia Mc N.P. (transmitted by agent of provider Dixie Centeno) Address [address], [place] [address] Care Team Providers Name Role Phone Mehran Combs MD - Internal Care Team Information [facility] Alex Vo MD - Endocrinology, Care Team Information Caddy [phone] Diabetes & Metabolism Vic Maddox NP - Family Care Team Information Caddy [phone] Boris Shaw MD - Care Team Information [facility]addy [phone] Otolaryngology Ashwin Michael MD - Obstetrics & Care Team Information Caddy [phone] Gynecology Deb Pate M.D. - Family Medicine Care Team Information [facility] Problems Active Problems Provider Date [place] disease Ang Zelaya M.D.,FACP Onset: 12/04/2015 Sleep apnea Geraldo Calderón MD Onset: 05/24/2016 Type 2 diabetes mellitus Annette Sin N.P. Onset: 08/01/2012 Persistent microalbuminuria associated Ang Zelaya M.D.,FACP Onset: with type II diabetes mellitus Essential hypertension Annette Sin N.P. Onset: 08/01/2012 Hyperlipidemia Annette Sin N.P. Onset: 08/01/2012 Transient cerebral ischemia Annette iSn N.P. Onset: 08/01/2012 Gastroesophageal reflux disease Jessica [...] Former Cigarette Smoker Unknown Smoking Status Reviewed: 11/05/19 Former Cigarette Smoker ETOH Use 02/09/2018 Denies [...] Medications SIG Qnty Indications Ordering Date Provider Guaiatussin ac 10 milliliters 236ml J06.9 Adilia Mccrarylora, 11/05/2019 every 4 - 6 hours N.P. 100-10mg/5ML Syrup as needed cough Fluticasone 2 sprays each 16gm J06.9 Adilia Mccrarylora, 11/05/2019 Propionate nostril daily as N.P. needed 50mcg/Act Suspension Tamiflu 1 by bid x 5 days 10caps J06.9 Adilia Mccrarylora, 11/05/2019 75mg N.P. Capsules Easy Touch Pen 2 times daily 200units Monique Juarez MD 10/16/2019 [place] 32GX1/4" 32G X 6 mm [facility] Freestyle Lite Test use as directed, 100units E11.65 Sarai 09/06/2019 Strip test twice a day. MD Victor Manuel Aimovig inject sq once a 1ml Geraldo Calderón, 08/07/2019 70mg/johnie corbin MD Solution Auto-Inject Transport Chair use daily for 1units J44.9 Deb Pate MD 07/23/2019 transport [facility] I67.5 M62.81 Lantus Solostar 20 u sc at bedtime 6ml E11.9 Monique Juarez MD 07/12/2019 100Unit/ML Solution Pen-Inject Tab-A-[place] take one tablet by 100tabs Monique Juarez MD 07/10/2019 Tablets mouth once daily Fioricet 1 by mouth for bad 5caps Geraldo Calderón MD 06/14/2019 50-300-40mg headache, every 8 Capsules hours; may use twice a week Senna Laxative 1 tablets once 90tabs Monique Juarez MD 04/11/2019 25mg Tablets daily as needed Premarin use twice weekly 90gm N95.2 Deb Pate MD 04/10/2019 0.625mg/GM Cream as directed Atorvastatin Calcium 1 by mouth every 90tabs Deb Pate MD 02/27/2019 80mg day Tablets Invokana take one tablet by 90tabs Aixa Shine 02/18/2019 100mg Tablets mouth once daily M.D. Fluconazole Take One Tablet By 2tabs E11.9 Monique Juarez MD 02/07/2019 150mg Tablets Mouth One Time, May Repeat After 2 Days If Not Better (For Vaginal Yeast Infection) Benzonatate take one tablet by 90caps J01.90 Monique Juarez MD 12/28/2018 100mg Capsules mouth up to 3 times a day for cough. Vitamin D-1000 Maximum take one 90tabs Aixa Shine, 12/26/2018 Strength capsule/tablet M.D. 1000Unit Tablets daily by mouth Nystatin apply to groin 1units B35.6 Deb Pate MD 10/10/2018 Powder 3-4x/day Topiramate 1 tab by mouth at 90tabs Raf Rogers, 08/08/2018 50mg Tablets night M.DEllyn Gengaelist take 2 tabs at 120caps Adilia Mc, 06/28/2018 25mg Capsules bedtime as needed N.P. Commode Bedside large wide commode 1units I25.10 Ang Zelaya, 2017 Misc to be used daily Omer,FACP J44.9 Shingrix 0.5 milliliters 2units Ang Zelaya, 06/01/2018 50mcg intramuscular now and Omer,FACP Suspension Rec 2-3 months later repeat Plavix 1 by mouth every day 30tabs Deb Pate MD 03/01/2018 75mg Tablets Hoveround PMD/Power use daily as directed 1units I50.41 Ang Zelaya, 01/05/2018 Mobility Device Omer,FACP I67.5 J44.9 Protonix 1 by mouth every 90tabs K31.1 Aixa Shine, 10/09/2017 [address]ts day M[address]D. [address] Whitmoremepiridnusrat Take One Tablet By 90tabs E11.21 Monique Juarez MD 12/09/2015 4mg Tablets Mouth Once Daily Oxygen please use O2 at Ang Long 12/08/2015 2Liters Misc 2l/min Omer Zelaya,FACP Carvedilol take one tablet by 180tabs I10 Aixa Shine, 12/08/2015 6.25mg mouth two times M.D. Tablets daily Victoza inject 1.8 mg under 9ml E11.21 Aixa Shine, 06/12/2015 18mg/3ML the skin daily M.D. Solution Pen-Inject after dinner Diltiazem CD take one capsule by 90caps I10 Deb Pate MD 04/06/2015 120mg Caps mouth once daily ER 24HR Ranitidine HCL take 1 tablet by 90caps K31.1 Deb Pate MD 12/15/2014 300mg mouth at bedtime Capsules Freestyle Lite twice daily and as 100units Deb Pate MD 08/14/2014 Lancets directed DX E11.9 [facility] Freestyle Lite Test test blood sugar up 100units E11.9 Aixa Shine, to 2 times a day M.D. Strip Oyster Shell Calcium take one tablet by [...] as Omer Zelaya,FACP (2.5mg/3ML) 0.083% needed Nebulizer Multivitamins 1 by mouth every 90caps Z01.818 Aixa Shine, Capsules day M.D. Saphris 1 tab sl qhs F31.32 Unknown 5mg Tablets Sub Lisinopril 1 by mouth every I10 Unknown 20mg Tablets day Colace one tab by mouth 180caps Deb Pate MD 100mg Capsules twice daily Depakote 1 tab po bid F31.[address] Mcginnis take 1 1/2 tablet Unknown 100mg Tablets by mouth every ER 24HR morning Gabapentin one cap PO tid Unknown 100mg Capsules Ondansetron HCL Take One Tablet By 30tabs Abigail Cotton, 4mg Mouth Every Six M.D. Tablets Hours as Needed For Nausea Lamotrigine takes 75mg in am Unknown 25mg Tablets Gabapentin take one tablet by Unknown 600mg mouth at bed time Tablets Latuda 1 by mouth every Unknown 60mg Tablets day in the am History Medications Doxycycline Hyclate 1 by mouth 20tabs J06.9 Deb Pate MD 07/12/2019 - twice a day x 07/25/[address] 10 days Medications Administered in Office Medication SIG Qnty Indications Ordering Provider Date Depomedrol 40MG Ruth Gonzalez M.D. 04/12/2019 Injection Toradol Injection 15MG Deb Pate MD 02/18/2019 Injection Inj, Regadenoson, 0.1 MG Perez Rangel M.D., 05/07/2015 Injection FACC, FASNC Inj, Regadenoson, 0.1 MG Yuriy Jose, DO [facility] 05/07/2015 Injection Technetium TC 99M Perez Rangel M.D., 05/07/2015 Tetrofosmin, Per Unit Dose FACC [place] Up To 40 Millicuries Injection Technetium TC 99M Yuriy Jose, DO [facility] 05/07/2015 Tetrofosmin, Per Unit Dose Up To 40 Millicuries Injection PPD Vic Maddox, GERBER 11/12/2014 Injection PPD Nurse Visit [place] 11/04/2013 Injection PPD Annette Sin, 10/31/2012 Injection N.P. Immunizations CPT Code Status Date Vaccine Lot # [id number] Given 06/14/2018 Influenza Virus Vaccine, Quadrivalent, Split, Preservative Free [id number] Given 06/05/2017 Influenza Virus Vaccine, Quadrivalent, Split, Preservative Free [id number] Given 07/21/2016 Fluzone Vaccine [id number] Given 06/22/2016 Influenza Virus Vaccine, Quadrivalent, Split, [id number] Preservative Free 12770 Given 09/02/2015 Hepatitis B Vaccine Adult Dosage [id number] 02733 Given 09/02/2015 Pneumonia Vaccine [id number] 84881 Given 06/23/2015 Influenza Virus Vaccine, Quadrivalent, Split, [id number] Preservative Free 65433 Given 11/12/2014 Tdap - Tetanus/Diptheria/Acellular Pertussis [id number] 13550 Given 08/12/2014 Pneumococcal Conjugate Vaccine 13 Valent For [id number] Intramuscular Use 15087 Given 07/05/2014 Influenza Virus Vaccine, Quadrivalent, Split, [id number] Preservative Free 62074 Given 01/17/2014 Hepatitis B Vaccine Adult Dosage [id number] 13298 Given 05/10/2013 Hepatitis B Vaccine Adult Dosage [id number] Vital Signs Date Vital Result Comment 11/05/2019 11:20am Height 67 inches 5'7" Weight 318.38 lb Heart Rate 88 /min BP Systolic Sitting 144 mmHg BP Diastolic Sitting 80 mmHg Body Temperature 98.4 F O2 % BldC Oximetry 96 % BMI (Body Mass Index) 49.9 kg/m2 10/23/2019 4:04pm Height 67 inches 5'7" Weight 315.00 lb with shoes Heart Rate 92 /min BP Systolic Sitting 120 mmHg Lue lg cuff BP Diastolic Sitting 70 mmHg Lue lg cuff BP Systolic Standing 118 mmHg Lue lg cuff BP Diastolic Standing 64 mmHg Lue lg cuff Respiratory Rate 15 /min BMI (Body Mass Index) 49.3 kg/m2 Ejection Fraction 60-65% date 05/22/18 echo Results Test Acquired Facility Test Result H/L Range Note Date Laboratory test 10/17/2019 [facility] In House Hemoglobin A1c 7.8 High 5-7 finding Laboratory test 09/11/2019 [facility] Troponin-I 0.00 ng/mL < 0.[address] (TnI) [place] [address] [phone] Laboratory test 09/11/2019 [facility] Partial 32.4 Normal 26.0 -38.[address] [place] [address] PTT [phone] B-Type Natriuretic Peptide BNP 20 pg/mL <=100 Magnesium 1.8 mg/dL Low 1.9-2.7 Creatine Kinase(CK) 47 U/L Normal 10-223 CKMB 09/11/2019 [facility] CKMB 1.5 ng/mL Normal 0.6-6.[address] ng/[place] [address] [phone] Laboratory test 09/11/2019 [facility] TSH 1.82 Normal 0.34- 5.60 finding 101 (Thyroid mcIU/mL [place], [place] [id number] [facility]vs) [phone] Urinalysis 09/11/2019 [facility] Urine Yellow Profile [address] [place] [address] [phone] Urine Appearance Cloudy Urine Specific [place] 1.025 Normal 1.010-1.030 Urine pH 5.0 Normal 5-9 Urine Urobilinogen Negative Negative Urine Ketones Trace Abnormal Negative Urine Protein Negative Negative Urine Leukocytes Negative Negative Urine Blood Negative Negative Urine Nitrite Negative Negative Urine Bilirubin Negative Negative Urine Glucose 3+(>=500 mg/dL) Abnormal Negative Inr/Protime 09/11/2019 [facility] Inr 1.10 High 0.82-1.[address] [place] [address] [phone] Comp Metabolic 09/11/2019 [facility] Sodium 139 mmol/L Normal 135-[address] [place] [address] [phone] Potassium 4.4 mmol/L Normal 3.5-5.0 Chloride 105 mmol/L Normal 101-111 Co2 Carbon Dioxide 24 mmol/L Normal 22-32 Anion Gap 10 mmol/L Normal 2-11 Glucose 270 mg/dL High 70-100 Blood Urea Nitrogen 16 mg/dL Normal 6-24 Creatinine 0.81 mg/dL Normal 0.51-0.95 BUN/Creatinine Ratio 19.8 Normal 8-20 Calcium 8.9 mg/dL Normal 8.6-10.3 Total Protein 7.0 g/dL Normal 6.4-8.9 Albumin 4.0 g/dL Normal 3.2-5.2 Globulin 3.0 g/dL Normal 2-4 Albumin/Globulin Ratio 1.3 Normal 1-3 Total Bilirubin 0.40 mg/dL Normal 0.2-1.0 Alkaline Phosphatase 52 U/L Normal 34-104 Alt 18 U/L Normal 7-52 Ast 13 U/L Normal 13-39 Egfr Non- 73.1 >60 Egfr 88.5 >60 3 Laboratory test 09/11/2019 [facility] Troponin-I 0.00 <0.03 4 finding 101 (TnI) ng/mL [place], [place] [id number] [phone] CBC Auto Diff 09/11/2019 [facility] White Blood 7.8 Normal 3.5 -10.[address] Count 10^3/[place] [address] [phone] Red Blood Count 5.16 10^6/uL High 3.70-4.87 Hemoglobin 14.1 g/dL Normal 12.0-16.0 Hematocrit 42 % Normal 35-47 Mean Corpuscular Volume 81 fL Normal 80-97 Mean Corpuscular Hemoglobin 27 pg Normal 27-31 Mean Corpuscular HGB Conc 34 g/dL Normal 31-36 Red Cell Distribution Width 20 % High 10-15 Platelet Count 186 10^3/uL Normal 150-450 Mean Platelet Volume 8.8 fL Normal 7.4-10.4 Abs Neutrophils 4.8 10^3/uL Normal 1.5-7.7 Abs Lymphocytes 2.3 10^3/uL Normal 1.0-4.8 Abs Monocytes 0.6 10^3/uL Normal 0-0.8 Abs Eosinophils 0.1 10^3/uL Normal 0-0.6 Abs Basophils 0.1 10^3/uL Normal 0-0.2 Abs Nucleated RBC 0.0 10^3/uL Granulocyte % 60.7 % Lymphocyte % 30.1 % Monocyte % 7.1 % Eosinophil % 1.4 % Basophil % 0.7 % Nucleated Red Blood Cells % 0.2 Laboratory test 07/09/2019 [facility] In House Influenza A/B Rapid Negative A-B finding Lipid Profile 06/26/2019 [facility] Triglycerides 282 mg/dL 5, 6 (Trig/Chol/HDL) [place] [address] [phone] Cholesterol 162 mg/dL 7 HDL Cholesterol 42.0 mg/dL 8 LDL Cholesterol 64 mg/dL 9 Laboratory test 06/26/2019 [facility] Hemoglobin A1c 7.9 % High 4.0-5.6 10 finding 101 (Glyco HGB) [place] [address] [phone] 1 Troponin-I testing on Plasma Separator Tubes (PST) has a known false positive rate of 0.20-0.40%. All positive troponins reflex immediately to secondary confirmatory testing. Using the [employer] DxI 800 Access Immunoassay systems, the 99th percentile upper reference limit was demonstrated to be < 0.03 ng/mL. 2 Standard intensity warfarin therapeutic range: 2.0-3.0 High intensity warfarin therapeutic range: 2.5-3.5 3 Because ethnic data is not always readily [...] 15-29 5 Kidney failure <15 (or dialysis) 4 Troponin-I testing on Plasma Separator Tubes (PST) has a known false positive rate of 0.20-0.40%. All positive troponins reflex immediately to secondary confirmatory testing. Using the [employer] DxI 800 Access Immunoassay systems, the 99th percentile upper reference limit was demonstrated to be < 0.03 ng/mL. 5 FASTING 6 Desirable: <150 Borderline High: 150-199 High: 200-499 Very High: >500 7 Desirable: <200 Borderline High: 200-239 High: >239 8 Low: <40 Desirable: 40-60 High: >60 9 Desirable: <100 Near Optimal: 100-129 Borderline High: 130-159 High: 160-189 Very High: >189 10 Therapeutic target for the treatment of diabetes mellitus patients is <7% HBA1C, and in selective patients <6.0%. Please refer to [place] [employer] diabetic care guidelines for further information. Procedures Date Code Description Status 10/23/2019 85480 EKG Tracing & Interpretation Completed 09/12/2019 44722 Treadmill Interp/Report Only Completed 09/12/2019 56639 Stress Test Supervsn W/Out I/R Completed 09/12/2019 74460 EKG, Interpretation Only Completed 09/03/2019 [id number] Diabetic Foot Exam Completed 08/26/2019 [id number] Diabetic Foot Exam Completed 04/29/2019 [id number] Mammogram Completed 09/27/2018 [id number] Diabetic Retinal Eye Exam Completed 02/07/2018 [id number] Diabetic Foot Exam Completed 03/14/2017 [id number] Mammogram Completed 11/16/2016 [id number] Diabetic Retinal Eye Exam Completed 09/18/2015 [id number] Diabetic Retinal Eye Exam Completed 11/05/2014 [id number] Mammogram Completed 07/03/2014 [id number] Diabetic Retinal Eye Exam Completed 12/09/2013 [id number] Colonoscopy Completed 11/04/2013 [id number] Mammogram Completed 05/03/2013 [id number] Diabetic Retinal Eye Exam Completed Medical Devices Description No Information Available Encounters Type Date Location Provider Dx Diagnosis Office Visit 10/23/2019 [facility] Lucas Long I10 Essential ( primary) 4:00p Of Emily Chavarria M.D. hypertension R07.89 Other chest pain Z68.43 Body mass index (BMI) 50.0-59.9, adult Office Visit 10/23/2019 10:45a [facility] Jessica J44.9 [facility] Stephane obstructive [employer] pulmonary disease, unspecified G47.33 Obstructive sleep apnea (adult) (pediatric) R09.02 Hypoxemia Office Visit 10/17/2019 10:40a [facility] Internal Monique Juarez, E11.65 Type 2 diabetes Medicine - MD mellitus with Ccmob hyperglycemia I10 Essential (primary) hypertension K59.00 Constipation, unspecified E11.40 Type 2 diabetes mellitus with diabetic neuropathy, unsp Z68.43 Body mass index (BMI) 50.0-59.9, adult Office Visit 09/16/2019 8:40a [facility] Internal Monique Juarez MD R07.89 Other chest Medicine - Ccmob pain R05 Cough E11.65 Type 2 diabetes mellitus with hyperglycemia I10 Essential (primary) hypertension Z86.73 Prsnl hx of TIA (TIA), and cereb infrc w/o resid deficits Office Visit 09/13/2019 [facility] Yana Loya, R07.9 Chest pain, 10:43a susan Reyna M.D. unspecified Hospitalists E11.9 Type 2 diabetes mellitus without complications I10 Essential (primary) hypertension E66.01 Morbid (severe) obesity due to excess calories Z68.43 Body mass index (BMI) 50.0-59.9, adult Office Visit 09/11/2019 10:42a [facility] Yana Loya, R07.89 Other chest Assoc, Omer pain Hospitalists R53.1 Weakness G47.33 Obstructive sleep apnea (adult) (pediatric) J96.11 Chronic respiratory failure with hypoxia E11.9 Type 2 diabetes mellitus without complications Office Visit 08/07/2019 [facility] Geraldo Calderón, I67.5 [place] 9:15a Clinic MD disease G43.019 Migraine w/o aura, intractable, without status migrainosus G44.229 Chronic tension-type headache, not intractable Office Visit 07/12/2019 9:40a [facility] Internal Deb Pate, E11.65 Type 2 diabetes Medicine - MD mellitus with Ccmob hyperglycemia I10 Essential (primary) hypertension J06.9 Acute upper respiratory infection, unspecified Office Visit 07/09/2019 3:20p [facility] Internal Deb Pate, J06.9 Acute upper Medicine - Ccmob MD respiratory infection, unspecified Office Visit 05/24/2019 1:15p [place] Ruth Gonzalez, M25.551 Pain in right hip [facility] M16.11 Unilateral primary osteoarthritis, right hip M70.61 Trochanteric bursitis, right hip Assessments Date Code Description Provider 11/05/2019 J06.9 Acute upper respiratory infection, Adilia Mc, N.P. unspecified 11/05/2019 J44.9 Chronic obstructive pulmonary Adilia Mc, N.P. disease, unspecified 10/23/2019 I10 Essential (primary) hypertension Lucas Chavarria M.D. 10/23/2019 J44.9 Chronic obstructive pulmonary Jessica Calderón MD disease, unspecified 10/23/2019 R07.89 Other chest pain Lucas Chavarria M.D. 10/23/2019 G47.33 Obstructive sleep apnea (adult) Jessica Calderón MD (pediatric) 10/23/2019 Z68.43 Body mass index (BMI) 50.0-59.9, Lucas Chavarria M.D. adult 10/23/2019 R09.02 Hypoxemia Jessica Calderón MD 10/17/2019 E11.65 Type 2 diabetes mellitus with Monique Juarez MD hyperglycemia 10/17/2019 I10 Essential (primary) hypertension Monique Juarez MD 10/17/2019 K59.00 Constipation, unspecified Monique Juarez MD 10/17/2019 E11.40 Type 2 diabetes mellitus with Monique Juarez MD diabetic neuropathy, unspecified 10/17/2019 Z68.43 Body mass index (BMI) 50.0-59.9, Monique Juarez MD adult 09/16/2019 R07.89 Other chest pain Monique Juarez MD 09/16/2019 R05 Cough Monique Juarez MD 09/16/2019 E11.65 Type 2 diabetes mellitus with Monique Juarez MD hyperglycemia 09/16/2019 I10 Essential (primary) hypertension Monique Juarez MD 09/16/2019 Z86.73 Personal history of transient Monique Juarez MD ischemic attack (TIA), and cerebral infarction without residual deficits 09/13/2019 R07.9 Chest pain, unspecified Yana Loya M.D. 09/13/2019 E11.9 Type 2 diabetes mellitus without Yana Loya M.D. complications 09/13/2019 I10 Essential (primary) hypertension Yana Loya M.D. 09/13/2019 E66.01 Morbid (severe) obesity due to excess Yana Loya M.D. calories 09/13/2019 Z68.43 Body mass index (BMI) 50.0-59.9, Yana Loya M.D. 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 disease, unspecified 09/12/2019 E11.9 Type 2 diabetes mellitus without Yana Loya M.D. complications 09/12/2019 R53.1 Weakness Yana Loya M.D. 09/11/2019 R07.89 Other chest pain Yana Loya M.D. 09/11/2019 R53.1 Weakness Yana Loya M.D. 09/11/2019 G47.33 Obstructive sleep apnea (adult) Yana Loya M.D. (pediatric) 09/11/2019 J96.11 Chronic respiratory failure with Yana Lyoa M.D. hypoxia 09/11/2019 E11.9 Type 2 diabetes mellitus without Yana Loya M.D. complications 08/07/2019 I67.5 [place] disease Geraldo Calderón MD 08/07/2019 G43.019 Migraine without aura, intractable, Geraldo Calderón MD without status migrainos 08/07/2019 G44.229 Chronic tension-type headache, not Geraldo Calderón MD intractable 07/12/2019 E11.65 Type 2 diabetes mellitus with Deb Pate MD hyperglycemia 07/12/2019 I10 Essential (primary) hypertension Deb Pate MD 07/12/2019 J06.9 Acute upper respiratory infection, Deb Pate MD unspecified 07/09/2019 J06.9 Acute upper respiratory infection, Deb Pate MD unspecified 05/24/2019 M25.551 Pain in right hip Ruth Gonzalez M.D. 05/24/2019 M16.11 Unilateral primary osteoarthritis, Ruth Gonzalez M.D. right hip 05/24/2019 M70.61 Trochanteric bursitis, right hip Ruth Gonzalez M.D. Plan of Treatment Future Appointment(s):04/17/2020 11:30 am - Marlene Amanda NP at [facility]01/16/2020 10:40 am - Monique Juarez MD at [facility] Internal Medicine - [facility]12/12/2019 10:00 am - Geraldo Calderón MD at [facility] [id number]/05/2019 - Adilia Mc N.P.J06.9 Acute upper respiratory infection, unspecifiedNew Medication:Guaiatussin ac 100-10 mg/5ML - 10 milliliters every 4 - 6 hours as needed coughFluticasone Propionate 50 mcg/ Act - 2 sprays each nostril daily as neededTamiflu 75 mg - 1 by bid x 5 daysNew Labs:Influenza A & B Request, Ordered: 11/05/19Comments:I am very suspicious you have the flu. I have prescribed Guaiatussin AC cough syrup, you may take this every 4 - 6 hours.I sent in prescription for Tamiflu, take 1 tablet twice daily for 5 days. I havesent a prescription in for a steroid nasal spray, use 2 inhalations in each nostril, once daily until you are feeling better.J44.9 Chronic obstructive pulmonary disease, unspecified Functional Status Description No Information Available Mental Status Description No Information Available Referrals Description No Information Available
--- OUTSIDE RECORDS SUMMARY | 2019-12-01 11:52 | XMS REPORT ---
:1960 Author Organization [facility] Care Team Providers Name Role Phone Unavailable [...] d 06-20 10:30:00 (Andrés) 08:20: Walker 00 [id number] Cardio edema Cardiovasc Resolve 2018-08-16 Becca ular d 06-20 10:00:00 (Andrés) 08:20: Walker 00 [id number] Respiratory dyspnea Respirator Resolve 2019-02-05 Becca present y d 06-20 10:30:00 (Andrés) 08:20: Walker 00 [id number] Respiratory lung sounds Respirator Resolve 2019-02-05 Becca deficit y d 06-20 10:30:00 (Andrés) 08:20: Walker 00 [id number] Endo/Gage anti-coagul Endo/Gage Resolve 2018-07-31 Becca ation d 06-20 11:58:00 (Andrés) therapy 08:20: Walker [id number] Integument skin Integument Active Becca integrity 06-20 (Andrés) risk 08:20: Walker [id number] Elimination urinary Eliminatio Resolve 2018-08-16 Becca incontinenc n d 06-20 10:00:00 (Andrés) e 08:20: Walker [id number] Neuro confusion Neuro/Emot Active Becca present ion 06-20 (Andrés) 08:20: Walker [id number] Neuro anxiety Neuro/Emot Active Becca present ion 06-20 (Andrés) 08:20: Walker [id number] Neuro impaired Neuro/Emot Active Becca decision-ma ion 06-20 (Andrés) caty 08:20: Walker [id number] Activity ADL Activity Active Becca assistance 06-20 (Andrés) required 08:20: Walker [id number] Safety cannot be Safety Active Becca left alone 06-20 (Andrés) 08:20: Walker [id number] Safety fall risk Safety Resolve 2019-08-13 Becca factor d 06-20 10:55:00 (Andrés) present 08:20: Walker [id number] Safety risk for Safety Resolve 2019-08-13 Becca hospitaliza d 06-20 10:55:00 (Andrés) tion 08:20: Walker [id number] Medication oral med Meds Resolve 2018-07-31 Becca assistance d 06-20 11:58:00 (Andrés) required 08:20: Walker [id number] Medication potential Meds Resolve 2018-07-31 Becca clinically d 06-20 11:58:00 (Andrés) significant 08:20: Walker medication 00 [id number] issue Musculoskel requires Musculoske Resolve 2019-06-13 Becca etal human letal d 06-20 13:00:00 (Andrés) assist to 08:20: Walker leave home 00 [id number] Musculoskel transfer Musculoske Resolve 2019-06-13 Becca etal assistance letal d 06-20 13:00:00 Guidelli required 08:20: [id number] Respiratory oxygen Respirator Resolve 2019-02-05 Loreta treatments y d 06-26 10:30:00 [place] in home 10:28: h [id number] 00 Safety can be left Safety Active Loreta alone for 06-26 [facility]gy[facility] only short 10:28: h [id number] periods 00 Elimination urinary Eliminatio Resolve 2017-102018-08-16 Loreta frequency n d 10:00:00 Guy-[facility]os 11:58: h [id number] 00 Neuro knowledge/s Neuro/Emot Active 2017-10 Loreta kill ion 0 Guy-Zos deficit: cg 11:58: h [id number] 00 Endo/Gage anti-coagul Endo/Gage Resolve 2017-102019-01-29 Loreta ation d 1-15 12:45:00 [place] therapy 10:00: h [id number] 00 Neuro depressive Neuro/Emot Active 2017-10 Loreta feelings ion 1-15 [facility] present 10:00: h [id number] 00 Medication oral med Meds Resolve 2017-102019-02-05 Loreta assistance d 1-15 10:30:00 [place] required 10:00: h [id number] 00 Medication injectable Meds Resolve 2017-102019-02-05 Loreta med d -15 10:30:00 [facility] assistance 10:00: h [id number] required 00 Medication potential Meds Active 2017-10 Loreta clinically -15 Guy-[facility]os significant 10:00: h [id number] medication 00 issue Endo/Gage knowledge/s Endo/Gage Resolve [...] treatment y 12-25 Emily in home 09:30: [id number] 00 Endo/Gage glucose Endo/Gage Resolve 2019-01-29 Cherrise tolerance d 12-25 12:45:00 Nunez problem 09:30: [id number] Nutrition knowledge/s Nutrition Resolve 2019-01-29 Cherrise kill d 12-25 12:45:00 Emily deficit: pt 09:30: [id number] 00 Elimination urinary Eliminatio Resolve 2019-01-15 Cherrise incontinenc n d 12-25 11:25:00 Emily e 09:30: [id number] 00 Elimination urinary Eliminatio Resolve 2019-01-15 Cherrise urgency n d 12-25 11:25:00 Nunez 09:30: [id number] 00 Endo/Gage insulin Endo/Gage Resolve 2019-02-05 Cherrise admn d 02 10:30:00 Nunez dependence 09:55: [id number] 00 Endo/Gage glucose Endo/Gage Resolve 2019-02-05 Cherrise testing d 01-01 10:30:00 Nunez dependence 09:55: [id number] 00 Elimination urinary Eliminatio Resolve 2019-01-15 Cherrise frequency n d 4 11:25:00 Emily 09:55: [id number] 00 Elimination recurring Eliminatio Resolve 2019-02-05 Cherrise UTI n d 01-01 10:30:00 Emily 09:55: [id number] 00 Respiratory knowledge/s Respirator Resolve 2019-01-08 Marlene [...] n 0-08 Nila e 09:15: [employer] 00 [id number] Elimination constipatio Eliminatio Active 2018-10 Marlene n [...] 10:55: 00 Elimination diarrhea Eliminatio Active 2018-10 Tfifani n 10-27 Nila 09:00: [employer] 00 [id number] Safety [facility] for [facility] Nila tion 09:00: [employer] 00 [id number] Safety knowledge/s Safety Active 2018-10 Marlene kill [...] mg capsule capsule carvedilol carvedilol 2017- No [place] Unknown Unknown 6.25 mg 6.25 mg 06-20 Abiel UPTON tablet tablet Brandon Vitamin D3 Vitamin D3 No [place] 2000 Unknown 50 mcg 50 mcg Sarah [facility] units (2,000 (2,000 unit) unit) capsule capsule dilTIAZem dilTIAZem 2017- No [place] Unknown Unknown 120 mg 120 mg 06-20 Abiel [facility] tablet tablet Brandon Depakote Depakote No [place] 1-2 Unknown 500 mg 500 mg Sarah [facility] tablet,lauryn tablet,lauryn yed release yed release Colace 100 Colace 100 2017- No [place] Unknown Unknown mg capsule mg capsule 06-20 Abiel [facility] furosemide furosemide No [place] 20 mg Unknown 20 mg 20 mg Sarah [facility] tablet tablet gabapentin gabapentin 2017- No [place] Unknown Unknown 300 mg 300 mg 06-20 Abiel [facility] capsule capsule Brandon glimepiride glimepiride No [place] 4 mg Unknown 4 mg tablet 4 mg tablet Sarah [facility] liraglutide liraglutide No [place] 1 Unknown 0.6 mg/0.1 0.6 mg/0.1 Sarah [facility] injecti mL (18 mg/3 mL (18 mg/3 on mL) mL) subcutaneou subcutaneou s pen s pen injector injector lisinopril lisinopril 2017- No [place] Unknown Unknown 20 mg 20 mg 06-20 Abiel [facility] tablet tablet Brandon Oyster Oyster No [place] 500 mg Unknown Shell Shell Sarah [facility] Calcium 500 Calcium 500 500 mg 500 mg calcium calcium (1,250 mg) (1,250 mg) tablet tablet multivitami multivitami 2017- No [place] Unknown Unknown n capsule n capsule 06-20 [...] Sarah [facility] capsule capsule oxygen oxygen No [place] Unknown Unknown 06-20 Abiel [facility] clopidogrel clopidogrel 2018- No [place] Unknown Unknown 75 mg 75 mg 06-20 Abiel [facility] tablet tablet Brandon desvenlafax desvenlafax 2018- No [place] Unknown Unknown ine ine 06-20 ,Abiel succinate succinate Brandon ER 100 mg ER 100 mg tablet,exte tablet,exte nded nded release 24 release 24 hr hr diphenhydrA diphenhydrA 2017- No [place] Unknown Unknown MINE 25 mg MINE 25 mg 06-20 Abiel [facility] capsule capsule Brandon Depakote ER Depakote ER 2018- No [place] Unknown Unknown 500 mg 500 mg 06-20 Abiel [facility] tablet,exte tablet,exte Brandon nded nded release release famotidine famotidine 2018- No [place] Unknown Unknown 40 mg 40 mg 06-20 Abiel [facility] tablet tablet Brandon gabapentin gabapentin 2017- No [place] Unknown Unknown 100 mg 100 mg 06-20 Abiel [facility] capsule capsule Brandon glimepiride glimepiride 2018- No [place] Unknown Unknown 4 mg tablet 4 mg tablet 06-20 Abiel [facility] Nystop Nystop No [place] Unknown Unknown 100,000 100,000 06-20 Abiel [facility] unit/gram unit/gram Brandon topical topical powder powder atorvastati atorvastati 2017- [place] Unknown Unknown n 80 mg n 80 mg 06-20 Abiel [facility] tablet tablet Brandon carvedilol carvedilol 2017-10- No [place] Unknown Unknown 6.25 mg 6.25 mg 07-02 Abiel U[facility] tablet tablet Brandon Colace 100 Colace 100 2017-10- No [place] Unknown Unknown mg capsule mg capsule 07-02 Abiel [facility] diphenhydrA diphenhydrA 2017-10- No [place] Unknown Unknown MINE 25 mg MINE 25 mg 12-14 Abiel [facility] capsule capsule Brandon Depakote ER Depakote ER 2017-10- No [place] Unknown Unknown 500 mg 500 mg 09-27 Abiel [facility] tablet,exte tablet,exte Brandon nded nded release release Topamax 50 Topamax 50 2017- No Kandy Unknown Unknown mg tablet mg tablet 06-27 ,Willian Saphris Saphris 2017- No [place] Unknown Unknown (black (black 06-27 ,Willian golden) 10 golden) 10 mg mg sublingual sublingual tablet tablet pantoprazol pantoprazol 2017- No [place] Unknown Unknown e 40 mg e 40 mg 06-27 Abiel [facility] tablet,lauryn tablet,lauryn Brandon yed release yed release raNITIdine raNITIdine 2017- No [place] Unknown Unknown 300 mg 300 mg 06-27 Abiel [facility] tablet tablet Brandon Calcium 500 Calcium 500 2017- No [place] Unknown Unknown With D 500 With D 500 06-27 Abiel [facility] (1,250 mg (1,250 Brandon mg)-400 mg)-400 unit tablet unit tablet Vitamin D3 Vitamin D3 2018- No [place] Unknown Unknown 400 unit 400 unit 06-27 Abiel [facility] capsule capsule Brandon Victoza Victoza No [place] Unknown Unknown 2-Jeison 0.6 2-Jeison 0.6 06-27 Abiel [facility] mg/0.1 mL mg/0.1 mL Brandon (18 mg/3 (18 mg/3 mL) mL) subcutaneou subcutaneou s pen s pen injector injector atorvastati atorvastati 2017-10- No [place] Unknown Unknown n 80 mg n 80 [...] tablet 10-09 ,Geraldo doxycycline doxycycline 2017-10- No [place] Unknown Unknown monohydrate monohydrate 10-15 Abiel U[facility] 100 mg 100 mg Brandon capsule capsule lithium lithium 2017-10- No Kandy Unknown Unknown carbonate carbonate 11-28 ,Willian 300 mg 300 mg tablet tablet Depakote ER Depakote ER 2017-10- No [place] Unknown Unknown 500 mg 500 mg 11-28 ,Willian tablet,exte tablet,exte nded nded release release sennosides sennosides 2017-10 No [place] Unknown Unknown 8.6 8.6 11-28 Abiel UPTON [...] mg tablet tablet diphenhydrA diphenhydrA 2018- No [place] Unknown Unknown MINE 25 mg MINE 25 mg 12-14 ,Abiel capsule capsule Brandon clindamycin clindamycin 2018- No [place] Unknown Unknown HCl 300 mg HCl 300 mg 12-25 ,Deb capsule capsule dilTIAZem dilTIAZem No [place] Unknown Unknown 120 mg 120 mg 06-20 ,Abiel tablet tablet Brandon gabapentin gabapentin 2018- No [place] Unknown Unknown 300 mg 300 mg 06-20 ,Abiel capsule capsule Brandon lisinopril lisinopril No [place] Unknown Unknown 20 mg 20 mg 06-20 ,Abiel tablet tablet Brandon multivitami multivitami No [place] Unknown Unknown n capsule n capsule 06-20 Abiel [facility] clopidogrel clopidogrel No [place] Unknown Unknown 75 mg 75 mg 06-20 ,Abiel tablet tablet Brandon gabapentin gabapentin No [place] Unknown Unknown 100 mg 100 mg 06-20 ,Abiel capsule capsule Brandon glimepiride glimepiride No [place] Unknown Unknown 4 mg tablet 4 mg tablet 06-20 Abiel [facility] carvedilol carvedilol 2017- No [place] Unknown Unknown 6.25 mg 6.25 mg 06-20 ,Abiel tablet tablet Brandon Saphris Saphris 2018- No Kandy Unknown Unknown (black (black 06-20 ,Willian golden) 10 [place]) 10 mg mg sublingual sublingual tablet tablet pantoprazol pantoprazol No [place] Unknown Unknown e 40 mg e 40 mg 06-20 ,Abiel tablet,lauryn tablet,lauryn Brandon yed release yed release raNITIdine raNITIdine No [place] Unknown Unknown 300 mg 300 mg 06-20 ,Abiel tablet tablet Brandon Calcium 500 Calcium 500 2017- No [place] Unknown Unknown With D 500 With D 500 06-20 Abiel [facility] mg (1,250 mg (1,250 Brandon mg)-400 mg)-400 unit tablet unit tablet Vitamin D3 Vitamin D3 2018- No [place] Unknown Unknown 1,000 unit 1,000 unit 01-01 ,Abiel capsule capsule Brandon atorvastati atorvastati 2017- No [place] Unknown Unknown n 80 mg n 80 mg 1 10- ,Abiel tablet tablet Brandon atorvastati atorvastati 2017-10 No [place] Unknown Unknown n 80 mg n 80 [...] 24 hour hour carvedilol carvedilol 2017-10- No [place] Unknown Unknown 6.25 mg 6.25 mg 07-02 ,Abiel tablet tablet Brandon Saphris Saphris 2018- No [place] Unknown Unknown (black (black 06-27 ,Willian golden) 10 [place]) 10 mg mg sublingual sublingual tablet tablet Calcium 500 Calcium 500 2018- No [place] Unknown Unknown With D 500 With D 500 06-27 Abiel U[facility] mg (1,250 mg (1,250 Brandon mg)-400 mg)-400 unit tablet unit tablet Topamax 50 Topamax 50 2017-10- No Kaitlynn Unknown Unknown mg tablet mg tablet 10-09 Geraldo U[facility]ON Depakote ER Depakote ER No [place] Unknown Unknown 500 mg 500 mg 10-23 MD,Willian tablet,exte tablet,exte nded nded release release diphenhydrA diphenhydrA No [place] Unknown Unknown MINE 25 mg MINE 25 mg 3-15 ,Abiel capsule capsule Brandon lithium lithium 2018- No [place] Unknown Unknown carbonate carbonate 11-29- ,Willian 300 mg 300 mg tablet tablet Colace 100 Colace 100 2017-10- No [place] Unknown Unknown mg capsule mg capsule 01-01 Abiel U[facility] ipratropium ipratropium No [place] Unknown Unknown bromide bromide 02-19 ,Abiel 0.02 % 0.02 % Brandon solution solution for for inhalation inhalation albuterol albuterol No [place] Unknown Unknown sulfate 2.5 sulfate 2.5 02-19 Abiel [facility] mg/3 mL mg/3 mL Brandon (0.083 %) (0.083 %) solution solution for for nebulizatio nebulizatio n n predniSONE predniSONE 2018- No [place] Unknown Unknown 20 mg 20 mg 12-28 ,Abiel tablet tablet Brandon benzonatate benzonatate No [place] Unknown Unknown 100 mg 100 mg 12-28 ,Abiel capsule capsule Brandon doxycycline doxycycline 2018- No [place] Unknown Unknown hyclate 100 hyclate 100 12-28 [...] Willian [facility] Vitamin D3 Vitamin D3 No [place] Unknown Unknown 2,000 unit 2,000 unit 01-01 [...] MD,Deb tablet tablet carvedilol carvedilol 2017-10 No [place] Unknown Unknown 6.25 mg 6.25 mg 0- [...]
--- OUTSIDE RECORDS SUMMARY | 2019-12-01 11:52 | XMS REPORT ---
:1960 Author Organization [facility] Care Team Providers Name Role Phone Unavailable [...] d 06-20 10:30:00 (Andrés) 08:20: Walker 00 [id number] Cardio edema Cardiovasc Resolve 2018-08-16 Becca ular d 06-20 10:00:00 (Andrés) 08:20: Walker 00 [id number] Respiratory dyspnea Respirator Resolve 2019-02-05 Becca present y d 06-20 10:30:00 (Andrés) 08:20: Walker 00 [id number] Respiratory lung sounds Respirator Resolve 2019-02-05 Becca deficit y d 06-20 10:30:00 (Andrés) 08:20: Walker 00 [id number] Endo/Gage anti-coagul Endo/Gage Resolve 2018-07-31 Becca ation d 06-20 11:58:00 (Andrés) therapy 08:20: Walker [id number] Integument skin Integument Active Becca integrity 06-20 (Andrés) risk 08:20: Walker [id number] Elimination urinary Eliminatio Resolve 2018-08-16 Becca incontinenc n d 06-20 10:00:00 (Andrés) e 08:20: Walker [id number] Neuro confusion Neuro/Emot Active Becca present ion 06-20 (Andrés) 08:20: Walker [id number] Neuro anxiety Neuro/Emot Active Becca present ion 06-20 (Andrés) 08:20: Walker [id number] Neuro impaired Neuro/Emot Active Becca decision-ma ion 06-20 (Andrés) caty 08:20: Walker [id number] Activity ADL Activity Active Becca assistance 06-20 (Andrés) required 08:20: Walker [id number] Safety cannot be Safety Active Becca left alone 06-20 (Andrés) 08:20: Walker [id number] Safety fall risk Safety Resolve 2019-08-13 Becca factor d 06-20 10:55:00 (Andrés) present 08:20: Walker [id number] Safety risk for Safety Resolve 2019-08-13 Becca hospitaliza d 06-20 10:55:00 (Andrés) tion 08:20: Walker [id number] Medication oral med Meds Resolve 2018-07-31 Becca assistance d 06-20 11:58:00 (Andrés) required 08:20: Walker [id number] Medication potential Meds Resolve 2018-07-31 Becca clinically d 06-20 11:58:00 (Andrés) significant 08:20: Walker medication 00 [id number] issue Musculoskel requires Musculoske Resolve 2019-06-13 Becca etal human letal d 06-20 13:00:00 (Andrés) assist to 08:20: Walker leave home 00 [id number] Musculoskel transfer Musculoske Resolve 2019-06-13 Becca etal assistance letal d 06-20 13:00:00 [place] required 08:20: [id number] 00 Respiratory oxygen Respirator Resolve 2019-02-05 Loreta treatments y d 06-26 10:30:00 [place] in home 10:28: h [id number] 00 Safety can be left Safety Active Loreta alone for 06-26 [facility] only short 10:28: h [id number] periods 00 Elimination urinary Eliminatio Resolve 2017-102018-08-16 Loreta frequency n d 10:00:00 [place] 11:58: h [id number] 00 Neuro knowledge/s Neuro/Emot Active 2017-10 Loreta kill ion 0 [place] deficit: cg 11:58: h [id number] 00 Endo/Gage anti-coagul Endo/Gage Resolve 2017-102019-01-29 Loreta ation d 1-15 12:45:00 [place] therapy 10:00: h [id number] 00 Neuro depressive Neuro/Emot Active 2017-10 [place] feelings ion 1-15 [place] present 10:00: h [id number] 00 Medication oral med Meds Resolve 2017-102019-02-05 [place] assistance d 1-15 10:30:00 [place] required 10:00: h [id number] 00 Medication injectable Meds Resolve 2017-102019-02-05 Loreta med d -15 10:30:00 [place] assistance 10:00: h [id number] required 00 Medication potential Meds Active 2017-10 Loreta clinically -15 [place] significant 10:00: h [id number] medication 00 issue Endo/Gage knowledge/s Endo/Gage Resolve [...] treatment y 12-25 Emily in home 09:30: [id number] 00 Endo/Gage glucose Endo/Gage Resolve 2019-01-29 Cherrise tolerance d 12-25 12:45:00 [place] problem 09:30: [id number] 00 Nutrition knowledge/s Nutrition Resolve 2019-01-29 Cherrise kill d 12-25 12:45:00 Emily deficit: pt 09:30: [id number] 00 Elimination urinary Eliminatio Resolve 2019-01-15 Cherrise incontinenc n d 12-25 11:25:00 Emily e 09:30: [id number] 00 Elimination urinary Eliminatio Resolve 2019-01-15 Cherrise urgency n d 12-25 11:25:00 [place] 09:30: [id number] 00 Endo/Gage insulin Endo/Gage Resolve 2019-02-05 Cherrise admn d 02 10:30:00 [place] dependence 09:55: [id number] 00 Endo/Gage glucose Endo/Gage Resolve 2019-02-05 Cherrise testing d 01-01 10:30:00 [place] dependence 09:55: [id number] 00 Elimination urinary Eliminatio Resolve 2019-01-15 Cherrise frequency n d 4 11:25:00 Emily 09:55: [id number] 00 Elimination recurring Eliminatio Resolve 2019-02-05 Cherrise UTI n d 01-01 10:30:00 Emily 09:55: [id number] 00 Respiratory knowledge/s Respirator Resolve 2019-01-08 Marlene [...] n 0-08 Nila e 09:15: [employer] 00 [id number] Elimination constipatio Eliminatio Active 2018-10 Marlene n [...] Tiffani n 10-27 Nila 09:00: [employer] 00 [id number] Safety risk for [facility] Nila tion 09:00: [employer] 00 [id number] Safety knowledge/s Safety Active 2018-10 Marlene kill [...] mg capsule capsule carvedilol carvedilol 2017- No Hersey Unknown Unknown 6.25 mg 6.25 mg 06-20 Abiel UPTON tablet tablet Brandon Vitamin D3 Vitamin D3 No Crowe 2000 Unknown 50 mcg 50 mcg Sarah UPTON units (2,000 (2,000 unit) unit) capsule capsule dilTIAZem dilTIAZem 2017- No Hersey Unknown Unknown 120 mg 120 mg 06-20 Abiel UPTON tablet tablet Brandon Depakote Depakote No Crowe 1-2 Unknown 500 mg 500 mg Sarah UPTON tablet,lauryn tablet,lauryn yed release yed release Colace 100 Colace 100 2017- No Hersey Unknown Unknown mg capsule mg capsule 06-20 Abiel UPTON furosemide furosemide No Crowe 20 mg Unknown 20 mg 20 mg Sarah UPTON tablet tablet gabapentin gabapentin 2017- No Hersey Unknown Unknown 300 mg 300 mg 06-20 Abiel UPTON capsule capsule Brandon glimepiride glimepiride No Crowe 4 mg Unknown 4 mg tablet 4 mg tablet Sarah UPTON liraglutide liraglutide No Crowe 1 Unknown 0.6 mg/0.1 0.6 mg/0.1 Sarah UPTON injecti mL (18 mg/3 mL (18 mg/3 on mL) mL) subcutaneou subcutaneou s pen s pen injector injector lisinopril lisinopril 2017- No Hersey Unknown Unknown 20 mg 20 mg 06-20 Abiel UPTON tablet tablet Brandon Oyster Oyster No Crowe 500 mg Unknown Shell Shell Sarah UPTON Calcium 500 Calcium 500 500 mg 500 mg calcium calcium (1,250 mg) (1,250 mg) tablet tablet multivitami multivitami 2017- No Hersey Unknown Unknown n capsule n capsule 06-20 [...] Sarah UPTON capsule capsule oxygen oxygen No Hersey Unknown Unknown 06-20 Abiel UPTON clopidogrel clopidogrel 2018- No Hersey Unknown Unknown 75 mg 75 mg 06-20 Abiel UPTON tablet tablet Brandon desvenlafax desvenlafax 2018- No Hersey Unknown Unknown ine ine 06-20 ,Abiel succinate succinate Brandon ER 100 mg ER 100 mg tablet,exte tablet,exte nded nded release 24 release 24 hr hr diphenhydrA diphenhydrA 2017- No Hersey Unknown Unknown MINE 25 mg MINE 25 mg 06-20 Abiel UPTON capsule capsule Brandon Depakote ER Depakote ER 2018- No Hersey Unknown Unknown 500 mg 500 mg 06-20 Abiel UPTON tablet,exte tablet,exte Brandon nded nded release release famotidine famotidine 2018- No Hersey Unknown Unknown 40 mg 40 mg 06-20 Abiel UPTON tablet tablet [place] gabapentin gabapentin 2017- No Hersey Unknown Unknown 100 mg 100 mg 06-20 Abiel UPTON capsule capsule Brandon glimepiride glimepiride 2018- No Hersey Unknown Unknown 4 mg tablet 4 mg tablet 06-20 Abiel U[facility] Nystop Nystop No Hersey Unknown Unknown 100,000 100,000 06-20 Abiel UPTON unit/gram unit/gram Brandon topical topical powder powder atorvastati atorvastati 2017- Hersey Unknown Unknown n 80 mg n 80 mg 06-20 Abiel UPTON tablet tablet Brandon carvedilol carvedilol 2017-10- No Hersey Unknown Unknown 6.25 mg 6.25 mg 07-02 Abiel UPTON tablet tablet Brandon Colace 100 Colace 100 2017-10- No Hersey Unknown Unknown mg capsule mg capsule 07-02 Abiel UPTON diphenhydrA diphenhydrA 2017-10- No Hersey Unknown Unknown MINE 25 mg MINE 25 mg 12-14 Abiel UPTON capsule capsule Brandon Depakote ER Depakote ER 2017-10- No Hersey Unknown Unknown 500 mg 500 mg 09-27 Abiel UPTON tablet,exte tablet,exte Brandon nded nded release release Topamax 50 Topamax 50 2017- No Kandy Unknown Unknown mg tablet mg tablet 06-27 ,Willian Saphris Saphris 2017- No Kandy Unknown Unknown (black (black 06-27 ,Willian golden) 10 golden) 10 mg mg sublingual sublingual tablet tablet pantoprazol pantoprazol 2017- No Hersey Unknown Unknown e 40 mg e 40 mg 06-27 Abiel UPTON tablet,lauryn tablet,lauryn Brandon yed release yed release raNITIdine raNITIdine 2017- No Hersey Unknown Unknown 300 mg 300 mg 06-27 Abiel UPTON tablet tablet Brandon Calcium 500 Calcium 500 2017- No Hersey Unknown Unknown With D 500 With D 500 06-27 Abiel PUTON (1,250 mg (1,250 Brandon mg)-400 mg)-400 unit tablet unit tablet Vitamin D3 Vitamin D3 2018- No Hersey Unknown Unknown 400 unit 400 unit 06-27 Abiel UPTON capsule capsule Brandon Victoza Victoza No Hersey Unknown Unknown 2-Jeison 0.6 2-Jeison 0.6 06-27 Abiel UPTON mg/0.1 mL mg/0.1 mL rBandon (18 mg/3 (18 mg/3 mL) mL) subcutaneou subcutaneou s pen s pen injector injector atorvastati atorvastati 2017-10- No Hersey Unknown Unknown n 80 mg n 80 [...] tablet 10-09 ,Geraldo doxycycline doxycycline 2017-10- No Hersey Unknown Unknown monohydrate monohydrate 10-15 Abiel UPTON 100 mg 100 mg Brandon capsule capsule lithium lithium 2017-10- No Kandy Unknown Unknown carbonate carbonate 11-28 ,Willian 300 mg 300 mg tablet tablet Depakote ER Depakote ER 2017-10- No Kandy Unknown Unknown 500 mg 500 mg 11-28 ,Willian tablet,exte tablet,exte nded nded release release sennosides sennosides 2017-10 No Hersey Unknown Unknown 8.6 8.6 11-28 Abiel UPTON [...] mg tablet tablet diphenhydrA diphenhydrA 2018- No Hersey Unknown Unknown MINE 25 mg MINE 25 mg 12-14 ,Abiel capsule capsule Brandon clindamycin clindamycin 2018- No Pate Unknown Unknown HCl 300 mg HCl 300 mg 12-25 ,Deb capsule capsule dilTIAZem dilTIAZem No Hersey Unknown Unknown 120 mg 120 mg 06-20 ,Abiel tablet tablet Brandon gabapentin gabapentin 2018- No Hersey Unknown Unknown 300 mg 300 mg 06-20 ,Abiel capsule capsule Brandon lisinopril lisinopril No Hersey Unknown Unknown 20 mg 20 mg 06-20 ,Abiel tablet tablet Brandon multivitami multivitami No Hersey Unknown Unknown n capsule n capsule 06-20 Abiel UPTON clopidogrel clopidogrel No Hersey Unknown Unknown 75 mg 75 mg 06-20 ,Abiel tablet tablet Brandon gabapentin gabapentin No Hersey Unknown Unknown 100 mg 100 mg 06-20 ,Abiel capsule capsule Brandon glimepiride glimepiride No Hersey Unknown Unknown 4 mg tablet 4 mg tablet 06-20 Abiel UPTON carvedilol carvedilol 2017- No Hersey Unknown Unknown 6.25 mg 6.25 mg 06-20 ,Abiel tablet tablet Brandon Saphris Saphris 2018- No Kandy Unknown Unknown (black (black 06-20 ,Willian golden) 10 [place]) 10 mg mg sublingual sublingual tablet tablet pantoprazol pantoprazol No Hersey Unknown Unknown e 40 mg e 40 mg 06-20 ,Abiel tablet,lauryn tablet,lauryn Brandon yed release yed release raNITIdine raNITIdine No Hersey Unknown Unknown 300 mg 300 mg 06-20 ,Abiel tablet tablet Brandon Calcium 500 Calcium 500 2017- No Hersey Unknown Unknown With D 500 With D 500 06-20 Abiel UPTON mg (1,250 mg (1,250 Brandon mg)-400 mg)-400 unit tablet unit tablet Vitamin D3 Vitamin D3 2018- No Hersey Unknown Unknown 1,000 unit 1,000 unit 01-01 ,Abiel capsule capsule Brandon atorvastati atorvastati 2017- No Hersey Unknown Unknown n 80 mg n 80 mg 1 10- ,Abiel tablet tablet Brandon atorvastati atorvastati 2017-10 No Hersey Unknown Unknown n 80 mg n 80 [...] 24 hour hour carvedilol carvedilol 2017-10- No Hersey Unknown Unknown 6.25 mg 6.25 mg 07-02 ,Abiel tablet tablet Brandon Saphris Saphris 2018- No Kandy Unknown Unknown (black (black 06-27 ,Willian golden) 10 [place]) 10 mg mg sublingual sublingual tablet tablet Calcium 500 Calcium 500 2018- No Hersey Unknown Unknown With D 500 With D 500 06-27 Abiel UPTON mg (1,250 mg (1,250 Brandon mg)-400 mg)-400 unit tablet unit tablet Topamax 50 Topamax 50 2017-10- No Kaitlynn Unknown Unknown mg tablet mg tablet 10-09 Geraldo UPTON Depakote ER Depakote ER No Kandy Unknown Unknown 500 mg 500 mg 10-23 MD,Willian tablet,exte tablet,exte nded nded release release diphenhydrA diphenhydrA No Hersey Unknown Unknown MINE 25 mg MINE 25 mg 3-15 ,Abiel capsule capsule Brandon lithium lithium 2018- No Kandy Unknown Unknown carbonate carbonate 11-29- ,Willian 300 mg 300 mg tablet tablet Colace 100 Colace 100 2017-10- No Hersey Unknown Unknown mg capsule mg capsule 01-01 Abiel UPTON ipratropium ipratropium No Hersey Unknown Unknown bromide bromide 02-19 ,Abiel 0.02 % 0.02 % Brandon solution solution for for inhalation inhalation albuterol albuterol No Hersey Unknown Unknown sulfate 2.5 sulfate 2.5 02-19 Abiel UPTON mg/3 mL mg/3 mL Brandon (0.083 %) (0.083 %) solution solution for for nebulizatio nebulizatio n n predniSONE predniSONE 2018- No Hersey Unknown Unknown 20 mg 20 mg 12-28 ,Abiel tablet tablet Brandon benzonatate benzonatate No Hersey Unknown Unknown 100 mg 100 mg 12-28 ,Abiel capsule capsule Brandon doxycycline doxycycline 2018- No Hersey Unknown Unknown hyclate 100 hyclate 100 12-28 [...] ,Geraldo Topamax 50 Topamax 50 2018- No Kaitlnyn Unknown Unknown mg tablet mg tablet 05-21 [...] MD,Deb tablet tablet carvedilol carvedilol 2017-10 No Hersey Unknown Unknown 6.25 mg 6.25 mg 0- [...]
--- OUTSIDE RECORDS SUMMARY | 2019-12-01 11:52 | XMS REPORT ---
:1960 Author Organization [facility] Care Team Providers Name Role Phone Unavailable [...] d 06-20 10:30:00 (Andrés) 08:20: Walker 00 [id number] Cardio edema Cardiovasc Resolve 2018-08-16 Becca ular d 06-20 10:00:00 (Andrés) 08:20: Walker 00 [id number] Respiratory dyspnea Respirator Resolve 2019-02-05 Becca present y d 06-20 10:30:00 (Andrés) 08:20: Walker 00 [id number] Respiratory lung sounds Respirator Resolve 2019-02-05 Becca deficit y d 06-20 10:30:00 (Andrés) 08:20: Walker 00 [id number] Endo/Gage anti-coagul Endo/Gage Resolve 2018-07-31 Becca ation d 06-20 11:58:00 (Andrés) therapy 08:20: Walker [id number] Integument skin Integument Active Becca integrity 06-20 (Andrés) risk 08:20: Walker [id number] Elimination urinary Eliminatio Resolve 2018-08-16 Becca incontinenc n d 06-20 10:00:00 (Andrés) e 08:20: Walker [id number] Neuro confusion Neuro/Emot Active Becca present ion 06-20 (Andrés) 08:20: Walker [id number] Neuro anxiety Neuro/Emot Active Becca present ion 06-20 (Andrés) 08:20: Walker [id number] Neuro impaired Neuro/Emot Active Becca decision-ma ion 06-20 (Andrés) caty 08:20: Walker [id number] Activity ADL Activity Active Becca assistance 06-20 (Andrés) required 08:20: Walker [id number] Safety cannot be Safety Active Becca left alone 06-20 (Andrés) 08:20: Walker [id number] Safety fall risk Safety Resolve 2019-08-13 Becca factor d 06-20 10:55:00 (Andrés) present 08:20: Walker [id number] Safety risk for Safety Resolve 2019-08-13 Becca hospitaliza d 06-20 10:55:00 (Andrés) tion 08:20: Walker [id number] Medication oral med Meds Resolve 2018-07-31 Becca assistance d 06-20 11:58:00 (Andrés) required 08:20: Walker [id number] Medication potential Meds Resolve 2018-07-31 Becca clinically d 06-20 11:58:00 (Andrés) significant 08:20: Walker medication 00 [id number] issue Musculoskel requires Musculoske Resolve 2019-06-13 Becca etal human letal d 06-20 13:00:00 (Andrés) assist to 08:20: Walker leave home 00 [id number] Musculoskel transfer Musculoske Resolve 2019-06-13 Becca etal assistance letal d 06-20 13:00:00 Guidelli required 08:20: [id number] Respiratory oxygen Respirator Resolve 2019-02-05 Loreta treatments y d 06-26 10:30:00 Leola-Zos in home 10:28: h [id number] 00 Safety can be left Safety Active Loreta alone for 06-26 Leola-Zos only short 10:28: h [id number] periods 00 Elimination urinary Eliminatio Resolve 2017-102018-08-16 Loreta frequency n d 10:00:00 Leola-Zos 11:58: h [id number] 00 Neuro knowledge/s Neuro/Emot Active 2017-10 Loreta kill ion 0 Leola-Zos deficit: cg 11:58: h [id number] 00 Endo/Gage anti-coagul Endo/Gage Resolve 2017-102019-01-29 Loreta ation d 1-15 12:45:00 Leola-Zos therapy 10:00: h [id number] 00 Neuro depressive Neuro/Emot Active 2017-10 Loreta feelings ion 1-15 Leola-Zos present 10:00: h [id number] 00 Medication oral med Meds Resolve 2017-102019-02-05 Loreta assistance d 1-15 10:30:00 Guy-Zos required 10:00: h [id number] 00 Medication injectable Meds Resolve 2017-102019-02-05 Loreta med d -15 10:30:00 Guy-Zos assistance 10:00: h [id number] required 00 Medication potential Meds Active 2017-10 Loreta clinically -15 Leola-Zos significant 10:00: h [id number] medication 00 issue Endo/Gage knowledge/s Endo/Gage Resolve [...] treatment y 12-25 Emily in home 09:30: [id number] 00 Endo/Gage glucose Endo/Gage Resolve 2019-01-29 Cherrise tolerance d 12-25 12:45:00 Emily problem 09:30: [id number] 00 Nutrition knowledge/s Nutrition Resolve 2019-01-29 Cherrise kill d 12-25 12:45:00 Milliken deficit: pt 09:30: [id number] 00 Elimination urinary Eliminatio Resolve 2019-01-15 Cherrise incontinenc n d 12-25 11:25:00 Emily e 09:30: [id number] 00 Elimination urinary Eliminatio Resolve 2019-01-15 Cherrise urgency n d 12-25 11:25:00 [place] 09:30: [id number] 00 Endo/Gage insulin Endo/Gage Resolve 2019-02-05 Cherrise admn d 02 10:30:00 [place] dependence 09:55: [id number] 00 Endo/Gage glucose Endo/Gage Resolve 2019-02-05 Cherrise testing d 01-01 10:30:00 [place] dependence 09:55: [id number] 00 Elimination urinary Eliminatio Resolve 2019-01-15 Cherrise frequency n d 4 11:25:00 [place] 09:55: [id number] 00 Elimination recurring Eliminatio Resolve 2019-02-05 Cherrise UTI n d 01-01 10:30:00 Emily 09:55: [id number] 00 Respiratory knowledge/s Respirator Resolve 2019-01-08 Marlene [...] n 0-08 Nila e 09:15: [employer] 00 [id number] Elimination constipatio Eliminatio Active 2018-10 Marlene n [...] Tiffani n 10-27 Nila 09:00: [employer] 00 [id number] Safety risk for Safety Active 2018-10 Tiffani hospitaliza 10-27 Nila tion 09:00: [employer] 00 [id number] Safety knowledge/s Safety Active 2018-10 Marlene kill [...] mg capsule capsule carvedilol carvedilol 2017- [place] Unknown Unknown 6.25 mg 6.25 mg 06-20 Abiel UPTON tablet tablet Brandon Vitamin D3 Vitamin D3 No [place] 2000 Unknown 50 mcg 50 mcg Sarah UPTON units (2,000 (2,000 unit) unit) capsule capsule dilTIAZem dilTIAZem 2017- No [place] Unknown Unknown 120 mg 120 mg 06-20 Abiel UPTON tablet tablet Brandon Depakote Depakote No [place] 1-2 Unknown 500 mg 500 mg Sarah UPTON tablet,lauryn tablet,lauryn yed release yed release Colace 100 Colace 100 2017- No [place] Unknown Unknown mg capsule mg capsule 06-20 Abiel UPTON furosemide furosemide No [place] 20 mg Unknown 20 mg 20 mg Sarah UPTON tablet tablet gabapentin gabapentin 2017- No [place] Unknown Unknown 300 mg 300 mg 06-20 Abiel UPTON capsule capsule Brandon glimepiride glimepiride No [place] 4 mg Unknown 4 mg tablet 4 mg tablet Sarah UPTON liraglutide liraglutide No [place] 1 Unknown 0.6 mg/0.1 0.6 mg/0.1 Sarah UPTON injecti mL (18 mg/3 mL (18 mg/3 on mL) mL) subcutaneou subcutaneou s pen s pen injector injector lisinopril lisinopril 2017- No [place] Unknown Unknown 20 mg 20 mg 06-20 Abiel UPTON tablet tablet Brandon Oyster Oyster No Crowe 500 mg Unknown Shell Shell Sarah UPTON Calcium 500 Calcium 500 500 mg 500 mg calcium calcium (1,250 mg) (1,250 mg) tablet tablet multivitami multivitami 2017- No [place] Unknown Unknown n capsule n capsule 06-20 [...] Sarah UPTON capsule capsule oxygen oxygen No [place] Unknown Unknown 06-20 Abiel UPTON clopidogrel clopidogrel 2017- No [place] Unknown Unknown 75 mg 75 mg 06-20 Abiel UPTON tablet tablet Brandon desvenlafax desvenlafax 2017- No [place] Unknown Unknown ine ine 06-20 ,Abiel succinate succinate Brandon ER 100 mg ER 100 mg tablet,exte tablet,exte nded nded release 24 release 24 hr hr diphenhydrA diphenhydrA 2017- No [place] Unknown Unknown MINE 25 mg MINE 25 mg 06-20 Abiel UPTON capsule capsule Brandon Depakote ER Depakote ER 2017- No [place] Unknown Unknown 500 mg 500 mg 06-20 Abiel UPTON tablet,exte tablet,exte Brandon nded nded release release famotidine famotidine 2017- No [place] Unknown Unknown 40 mg 40 mg 06-20 Abiel UPTON tablet tablet Brandon gabapentin gabapentin 2017- No [place] Unknown Unknown 100 mg 100 mg 06-20 Abiel UPTON capsule capsule Brandon glimepiride glimepiride 2017- No [place] Unknown Unknown 4 mg tablet 4 mg tablet 06-20 Abiel UPTON Nystop Nystop No [place] Unknown Unknown 100,000 100,000 06-20 Abiel UPTON unit/gram unit/gram Brandon topical topical powder powder atorvastati atorvastati 2017- No [place] Unknown Unknown n 80 mg n 80 mg 06-20 Abiel UPTON tablet tablet Brandon carvedilol carvedilol 2017-10- No [place] Unknown Unknown 6.25 mg 6.25 mg 07-02 ,Abiel tablet tablet Brandon Colace 100 Colace 100 2017-10- No [place] Unknown Unknown mg capsule mg capsule 07-02 Abiel UPTON diphenhydrA diphenhydrA 2017-10- No [place] Unknown Unknown MINE 25 mg MINE 25 mg 12-14 ,Abiel capsule capsule Brandon Depakote ER Depakote ER 2017-10- No [place] Unknown Unknown 500 mg 500 mg 09-27 ,Abiel tablet,exte tablet,exte Brandon nded nded release release Topamax 50 Topamax 50 2017- Kandy Unknown Unknown mg tablet mg tablet 06-27 ,Willian Saphris Saphris 2017- No [place]andy Unknown Unknown (black (black 06-27 ,Willian godlen) 10 [place]) 10 mg mg sublingual sublingual tablet tablet pantoprazol pantoprazol 2017- No [place] Unknown Unknown e 40 mg e 40 mg 06-27 ,Abiel tablet,lauryn tablet,lauryn Brandon yed release yed release raNITIdine raNITIdine 2017- No [place] Unknown Unknown 300 mg 300 mg 06-27 Abiel UPTON tablet tablet Brandon Calcium 500 Calcium 500 2017- No [place] Unknown Unknown With D 500 With D 500 06-27 Abiel UPTON mg (1,250 mg (1,250 Brandon mg)-400 mg)-400 unit tablet unit tablet Vitamin D3 Vitamin D3 2018- No [place] Unknown Unknown 400 unit 400 unit 06-27 Abiel UPTON capsule capsule Brandon Victoza Victoza No [place] Unknown Unknown 2-Jeison 0.6 2-Jeison 0.6 06-27 Abiel UPTON mg/0.1 mL mg/0.1 mL Brandon (18 mg/3 (18 mg/3 mL) mL) subcutaneou subcutaneou s pen s pen injector injector atorvastati atorvastati 2017-10- No [place] Unknown Unknown n 80 mg n 80 [...] tablet 10-09 ,Geraldo doxycycline doxycycline 2017-10- No [place] Unknown Unknown monohydrate monohydrate 10-15 ,Abiel 100 mg 100 mg Brandon capsule capsule lithium lithium 2017-10- No Kandy Unknown Unknown carbonate carbonate 11-28 ,Willian 300 mg 300 mg tablet tablet Depakote ER Depakote ER 2017-10- No Kandy Unknown Unknown 500 mg 500 mg 11-28 ,Willian tablet,exte tablet,exte nded nded release release sennosides sennosides 2017-10 [place] Unknown Unknown 8.6 8.6 11-28 ,Abiel mg-docusate [...] mg tablet tablet diphenhydrA diphenhydrA 2018- No [place] Unknown Unknown MINE 25 mg MINE 25 mg 12-14 ,Abiel capsule capsule Brandon clindamycin clindamycin 2018- No [place] Unknown Unknown HCl 300 mg HCl 300 mg 12-25 ,Deb capsule capsule dilTIAZem dilTIAZem No [place] Unknown Unknown 120 mg 120 mg 06-20 ,Abiel tablet tablet Brandon gabapentin gabapentin 2018- No [place] Unknown Unknown 300 mg 300 mg 06-20 ,Abiel capsule capsule Brandon lisinopril lisinopril No [place] Unknown Unknown 20 mg 20 mg 06-20 ,Abiel tablet tablet Brandon multivitami multivitami No [place] Unknown Unknown n capsule n capsule 06-20 ,Abiel Taylor clopidogrel clopidogrel No [place] Unknown Unknown 75 mg 75 mg 06-20 ,Abiel tablet tablet Brandon gabapentin gabapentin No [place] Unknown Unknown 100 mg 100 mg 06-20 ,Abiel capsule capsule Brandon glimepiride glimepiride No [place] Unknown Unknown 4 mg tablet 4 mg tablet 06-20 Abiel UPTON carvedilol carvedilol 2017- No [place] Unknown Unknown 6.25 mg 6.25 mg 06-20 ,Abiel tablet tablet Brandon Saphris Saphris 2018- No Kandy Unknown Unknown (black (black 06-20 ,Willian golden) 10 [place]) 10 mg mg sublingual sublingual tablet tablet pantoprazol pantoprazol No [place] Unknown Unknown e 40 mg e 40 mg 06-20 ,Abiel tablet,lauryn tablet,lauryn Brandon yed release yed release raNITIdine raNITIdine No [place] Unknown Unknown 300 mg 300 mg 06-20 ,Abiel tablet tablet Brandon Calcium 500 Calcium 500 2017- No [place] Unknown Unknown With D 500 With D 500 06-20 Abiel UPTON (1,250 mg (1,250 Brandon mg)-400 mg)-400 unit tablet unit tablet Vitamin D3 Vitamin D3 2018- No [place] Unknown Unknown 1,000 unit 1,000 unit 01-01 ,Abiel capsule capsule Brandon atorvastati atorvastati 2017- No [place] Unknown Unknown n 80 mg n 80 mg 10-31 ,Abiel tablet tablet Brandon atorvastajudit atorvastati 2017-10 [place] Unknown Unknown n 80 mg n 80 [...] 24 hour hour carvedilol carvedilol 2017-10- No [place] Unknown Unknown 6.25 mg 6.25 mg 07-02 ,Abiel tablet tablet Brandon Saphris Saphris 2018- No [place] Unknown Unknown (black (black 06-27- ,Willian golden) 10 golden) 10 mg mg sublingual sublingual tablet tablet Calcium 500 Calcium 500 2018- No [place] Unknown Unknown With D 500 With D 500 06-27 Abiel UPTON (1,250 mg (1,250 Brandon mg)-400 mg)-400 unit tablet unit tablet Topamax 50 Topamax 50 2017-10- No Kaitlynn Unknown Unknown mg tablet mg tablet 10-09 Geraldo UPTON Depakote ER Depakote ER No Kandy Unknown Unknown 500 mg 500 mg 10-23 ,Willian tablet,exte tablet,exte nded nded release release diphenhydrA diphenhydrA No [place] Unknown Unknown MINE 25 mg MINE 25 mg - ,Abiel capsule capsule Brandon lithium lithium 2018- No [place]andy Unknown Unknown carbonate carbonate 11-29 ,Willian 300 mg 300 mg tablet tablet Colace 100 Colace 100 2017-10- No [place] Unknown Unknown mg capsule mg capsule 01-01 Abiel UPTON ipratropium ipratropium No [place] Unknown Unknown bromide bromide 02-19 ,Abiel 0.02 % 0.02 % Brandon solution solution for for inhalation inhalation albuterol albuterol No [place] Unknown Unknown sulfate 2.5 sulfate 2.5 - Abiel UPTON mg/3 mL mg/3 mL Brandon (0.083 %) (0.083 %) solution solution for for nebulizatio nebulizatio n n predniSONE predniSONE 2018- No [place] Unknown Unknown 20 mg 20 mg 12-28 ,Abiel tablet tablet Brandon benzonatate benzonatate No [place] Unknown Unknown 100 mg 100 mg 12-28 ,Abiel capsule capsule Brandon doxycycline doxycycline 2018- No [place] Unknown Unknown hyclate 100 hyclate 100 12-28 [...] Unknown mg tablet mg tablet 01-29 Willian UPOTN LaMICtal 25 LaMICtal 25 2018- No Kandy [...] MD,Deb tablet tablet carvedilol carvedilol 2017-10 [place] Unknown Unknown 6.25 mg 6.25 mg 0- [...] Observation Time Observation Value Comments SYSTOLIC mm[Hg] 2019-10-29 18:10:06 128 mm[Hg] mm[Hg] Method: Sit SYSTOLIC mm[Hg] 2019-06-13 18:07:48 142 mm[Hg] mm[Hg] Method: Stand DIASTOLIC mm[Hg] 2019-10-29 18:10:06 72 mm[Hg] mm[Hg] Method: Sit DIASTOLIC mm[Hg] 2019-06-13 18:07:48 72 mm[Hg] mm[Hg] Method: Stand PULSE 2019-10-29 18:10:06 78 /min /min RESP RATE 2019-10-29 18:10:06 18 /min /min TEMP 2019-10-29 18:10:06 98.7 [degF] Procedures This patient has no known procedures. Results This patient has no known results.
--- OUTSIDE RECORDS SUMMARY | 2019-12-01 11:52 | XMS REPORT | Summary of Care ---
:1960 Author Organization [facility] Address [address] [place] [address] Care Team Providers Name Role Phone Deb Pate MD Primary Care Provider Reason for Visit Auth/Cert Status Reason Specialty Diagnoses / Procedures Referred By Contact Referred To Contact Diagnoses PAD, DM, right leg pain Ruchi Rodriguez MD [address] [facility] Room [address] [place] [id number] Email: [email or web address] Encounter Details Date Type Department Care Team Description 11/11/2019 Hospital Encounter 01D ONE DAY SUITE Ruchi Rodriguez MD Claudication [address] [facility] [address] [place] [address] [place] [phone] Allergies Active Allergy Reactions Severity Noted Date Comments Amoxicillin-Pot Diarrhea, Nausea And High 05/06/2016 Clavulanate Vomiting Meperidine Other (See Comments) 05/06/2016 Migraine headache Exenatide Other (See Comments) Medium 04/06/2015 Levetiracetam 11/13/2017 Nitrofurantoin Monohyd Rash High 05/06/2016 Macro Metformin Diarrhea Medium 09/20/2019 documented as of this encounter (statuses as of 11/11/2019) Medications Medication Sig Dispensed Refills Start End Date Status Date clopidogrel (PLAVIX) Take 75 mg by 0 Active 75 MG tablet mouth every evening. Multiple Take by 0 Active Vitamins-Minerals mouth every (ONE-A-DAY ENERGY morning. PO) lisinopril Take 20 mg by 0 Active (PRINIVIL,ZESTRIL) mouth nightly 10 MG tablet carvedilol (COREG) Take 6.25 mg 0 Active 6.25 MG tablet by mouth Two times daily with meals. Oyster Shell Calcium Take 500 mg 0 Active 500 MG TABS by mouth Two times daily with meals. Talc (ZEASORB EX) Apply 0 Active topically Two Times Daily. glimepiride (AMARYL) Take 4 mg by 0 Active 4 MG tablet mouth every morning before breakfast. Liraglutide (VICTOZA Inject 1.8 mg 0 Active SC) into the skin daily nystatin Apply 0 Active (MYCOSTATIN) cream topically Two Times Daily. ranitidine (ZANTAC) Take 300 mg 0 Active 300 MG tablet by mouth nightly. Cholecalciferol Take 400 0 Active (VITAMIN D3 PO) Units by mouth Two Times Daily. SAPHRIS 10 MG SUBL 5 mg 0 Active 6 Atorvastatin Calcium Take 80 mg by 0 Active 80 MG Oral Tablet mouth daily (LIPITOR) Topiramate (TOPAMAX Take 50 mg by 0 Active PO) mouth daily before dinner Lurasidone HCl Take 60 mg by 0 Active (LATUDA PO) mouth Insulin Glargine 100 Inject 20 0 Active UNIT/ML Subcutaneous Units into Solution (LANTUS) the skin nightly Acetaminophen 500 MG Take 500 mg 0 Active Oral Tablet by mouth (TYLENOL) every 6 (six) hours as needed for PainTakes 1500 mg at a time Yxvojbliju-ZUIO-Idqc Take 1 tablet 0 Active eine 50-325-40 MG by mouth Oral Tablet every 4 (FIORICET, (four) hours ESGIC)Indications: as needed Migraine for PainIndicatio ns: Migraine Headache Gabapentin 100 MG Take 100 mg 0 Active Oral Capsule by mouth 0 (NEURONTIN) Three times daily Benzonatate 100 MG Take 100 mg 0 Active Oral Capsule by mouth (TESSALON) daily as needed for Cough Pantoprazole Sodium Take 40 mg by 0 Active 40 MG Oral Tablet mouth daily Delayed Release (PROTONIX) Famotidine 40 MG Take 1 tablet 30 tablet 11/09/19 Active Oral Tablet (PEPCID) by mouth 0 21 nightly dilTIAZem HCl ER 120 Take 1 30 capsule 11/09/19 Active MG Oral Capsule capsule by 0 21 Extended Release 12 mouth nightly Hour (CARDIZEM SR) Vitamin D Take 1 tablet 60 tablet 11 11/09/19 Active (Cholecalciferol) 10 by mouth Two 0 21 MCG (400 UNIT) Oral Times Daily Tablet (CHOLECALCIFEROL) aspirin 81 MG tablet Take 81 mg by 0 11/11/19 Discontinued mouth 20 (Discontinued by nightly. another clinician) diltiazem (CARDIZEM Take 120 mg 0 11/11/19 Discontinued CD) 120 MG 24 hr by mouth 20 capsule nightly. potassium chloride Take 20 mEq 0 11/11/19 Discontinued SA (K-DUR,KLOR-CON) by mouth 20 (Discontinued by 20 MEQ tablet daily. another clinician) gabapentin Take 600 mg 0 11/11/19 Discontinued (NEURONTIN) 300 MG by mouth 20 capsule nightly divalproex Take 500 mg 0 11/11/19 Discontinued (DEPAKOTE) 500 MG EC by mouth Two 20 tablet Times Daily brexpiprazole Take 1 mg by 0 11/11/19 Discontinued (REXULTI) 1 MG mouth every 20 (Discontinued by tablet morning. another clinician) paroxetine (PAXIL) Take 10 mg by 0 11/11/19 Discontinued 10 MG tablet mouth every 20 (Discontinued by morning. another clinician) lamoTRIgine 50 MG Take 75 mg by 0 11/11/19 Discontinued Oral Tablet mouth 20 Disintegrating (LAMICTAL ODT) Pantoprazole Sodium Take 20 mg by 0 11/11/19 Discontinued 20 MG Oral Tablet mouth daily 20 Delayed Release (PROTONIX) Benzonatate 100 MG Take 100 mg 0 11/11/19 Discontinued Oral Capsule by mouth 9 20 (TESSALON) daily dilTIAZem HCl ER Take 120 mg 0 11/11/19 Discontinued Coated Beads 120 MG by mouth 9 20 Oral Capsule daily Extended Release 24 Hour (CARDIZEM CD) Divalproex Sodium ER Take 500 mg 0 11/11/19 Discontinued 500 MG Oral Tablet by mouth Two 0 20 (Stop Taking at Extended Release 24 Times Daily Discharge) Hour (DEPAKOTE) lamoTRIgine 25 MG Take 75 mg by 0 11/11/19 Discontinued Oral Tablet mouth every 0 20 (Stop Taking at (LaMICtal) morning Discharge) documented as of this encounter (statuses as of 11/11/2019) Active Problems Problem Noted Date PVD (peripheral vascular disease) 11/11/2019 Hypertension 05/08/2016 Carotid artery disease without cerebral infarction 05/08/2016 Renal insufficiency 05/08/2016 COPD (chronic obstructive pulmonary disease) 05/08/2016 S/P arterial stent- left internal carotid artery 05/08/2016 Diabetes mellitus 12/31/2009 Overview: type 2 TIA (transient ischemic attack) 04/23/2005 documented as of this encounter (statuses as of 11/11/2019) Social History Tobacco Use Types Packs/Day Years Used Date Former Smoker 1 Smokeless Tobacco: Never Used Comments: Quit April 2005 Alcohol Use Drinks/Week oz/Week Comments No Rarely Sex Assigned at Date Recorded Not on file Job Start Date Occupation Industry Not on file Not on file Not on file Travel History Travel Start Travel End No recent travel history available. documented as of this encounter Last Filed Vital Signs Vital Sign Reading Time Taken Comments Blood Pressure 142/66 11/11/2019 6:15 PM EST Pulse 80 11/11/2019 6:15 PM EST Temperature 36.2 11/11/2019 5:20 PM C (97.2 EST F) Respiratory Rate 17 11/11/2019 6:15 PM EST Oxygen Saturation 96% 11/11/2019 6:15 PM EST Inhaled Oxygen Concentration - - Weight 145.2 kg (320 lb 1.7 oz) 11/11/2019 7:43 AM EST Height 170.2 cm (5' 7") 11/11/2019 7:43 AM EST Body Mass Index 50.14 11/11/2019 7:43 AM EST documented in this encounter Discharge Instructions Discharge Instr - Other OrdersFahad Barker MD - 11/11/2019 6:11 PM EST- Restart AntiCoagulation 11/12/19 - Diet/Activity as tolerated - Followup with Dr. Rodriguez in [facility] - Please call if any sudden changes to femoral access site documented in this encounter Progress Notes Fahad Barker MD - 11/11/2019 5:51 PM EST [facility] [place] [address] PATIENT NAME: Jewels Sol, DATE OF : 1960 . Subjective Date of Encounter: 11/11/2019 POD: Day of Surgery s/p Procedure(s): EXTREMITY ANGIO - LOWER - RIGHT; PELVIC as well LOS: 0 days Interval History: Post-op check. Pt required oxycodone due to back pain from lyinbg for 6 hours, otherwise doing great. Incision site is CDI. No sign of hematoma or excess bleeding. Tolerating PO. Current Hospital Problem List: Active Problems: PVD (peripheral vascular disease) Objective Vitals Temp: [36.2 C-36.4 C] 36.2 C Pulse: [77-83] 82 Resp: [16-20] 17 BP: (120-149)/(30-75) 143/68 SpO2: [88 %-95 %] 93 % O2 Therapy: Oxygen O2 Flow Rate (L/min): [2 L/min-6 L/min] 6 L/min Intake/Output Last 3 Completed Shifts I/O last 3 completed shifts: In: 650 [I.V.:650] Out: - Physical Exam General appearance: NAD Head: Normocephalic Lungs: Respirations unlaboredon room air.Wearing oxygen. Cardiac: Normal rate and rhythm. Normal S1, S2. No murmurs. Extremities:Mildedema noted of the BLE. Bilateral feet are warm with no cyanosis or rubor. No tissue loss. Motor functionisintact, sensory function is impaired. Pulses:RLE: DP, AT monophasic, PT biphasic. LLE: Triphasic DP, PT, AT. L groin dressing CDI w/ dime size of blood. Data Review CBC: Recent Labs Lab 11/11/19 0800 WBC 10.3* RBC 4.88 HGB 13.6 HCT 40.5 PLT 191 BMP: Recent Labs Lab 11/11/19 0800 NA 140 K 4.6 CL 103 BICARBONATE 22 GLUCOSE 173* BUN 12 CREATININE 0.70 BCR 17 GFRAA >90 GFRNONAA >90 COAGS: No results for input(s): INR in the last 168 hours. Invalid input(s): PT, PTT IMAGING: Assessment/Plan 59 y.o. female Day of Surgery s/p RLE angioplasty on 11/11. Stable for DC. - Ok to discharge - Regular diet - Activity as tolerated - Pt will f/up Dr. Rodriguez in [facility] PGY-1 emetra Herrera RN - 11/11/2019 4:46 PM [id number]) Received report from previous RN. Pt s/p: angioplasty right SFA. Pt site left groin looks good,pea size blood noted on gauze under tegaderm, no active bleeding, no hematoma. Pt. complaining of 9/10 back pain. Pt states "the tylenol is not cutting it". Pt denies any pain in legs , VSS. 1630) Spokewith Dr. Rodriguez regarding pt's continued back pain, meds ordered. Pt's boyfriend at bedside.Emotional support given. 1700) Report given to ODS, pt to be discharge after bedrest at about 1830. documented in this encounter Plan of Treatment Date Type Specialty Care Team Description 11/20/2020 Office Visit Vascular Surgery Ruchi Rodriguez MD [facility] [place] [address] [phone] Name Type Priority Associated Diagnoses Order Schedule POCT glucose, Point of Care Routine Once for 1 docked Testing-Docked Occurrences starting Device 11/11/2019 until 11/11/2019 Health Maintenance Due Date Last Done Comments Hepatitis C Screening (B. 1960 4272-8932) MMR Vaccines (1 of 1 - 1961 Standard series) Pneumococcal Vaccine: 1968 Pediatrics (0 to 5 Years) and At-Risk Patients (6 to 64 Years) (1 of 1 - PPSV23) HIV Screening 1975 Cervical Cancer Screening 5 1983 years Breast Cancer Screening 2 2012 years Colon Cancer Screening 10 yrs 2012 DTaP,Tdap,and Td Vaccines (2 12/10/2014 11/12/2014 - Td) Varicella Vaccines (1 of 2 - 07/27/2018 06/01/2018 2-dose childhood series) Influenza Vaccine 07/02/2019 Pneumococcal Vaccine: 65+ 2027 Years (1 of 2 - PCV13) Hepatitis B Vaccines Completed 09/02/2015, 01/17/2014, 05/10/2013 HIB Vaccines Aged Out No longer eligible based on patient's age to complete this topic Hepatitis A Vaccines Aged Out No longer eligible based on patient's age to complete this topic IPV Vaccines Aged Out No longer eligible based on patient's age to complete this topic documented as of this encounter Procedures Procedure Name Priority Date/Time Associated Diagnosis Comments IR PELVIC Routine 11/11/2019 11:23 Claudication Results for this ARTERIOGRAM AM EST procedure are in the results section. POCT ISTAT ACT Routine 11/11/2019 10:59 Results for this AM EST procedure are in the results section. POCT ISTAT ACT Routine 11/11/2019 10:28 Results for this AM EST procedure are in the results section. POCT GLUCOSE, DOCKED Routine 11/11/2019 8:06 Results for this AM EST procedure are in the results section. CBC STAT 11/11/2019 8:00 Results for this AM EST procedure are in the results section. BASIC METABOLIC STAT 11/11/2019 8:00 Results for this PANEL AM EST procedure are in the results section. OPERATIVE AND 11/11/2019 7:28 PROCEDURE NOTE AM EST documented in this encounter Results IR Arteriogram Pelvic (11/11/2019 11:23 AM EST) Specimen Narrative Performed At Preoperative Diagnosis: Right lower extremity peripheral vascular [facility] disease with right foot pain Postoperative diagnosis: Same, Patent Aorta, Common, External and Internal Iliac arteries. Mild Right proximal Common Iliac Artery Stenosis; Patent bilateral Common Femoral arteries; Patent Right profunda femoral artery, Patent Superficial Femoral Artery with high grade (95%) focal stenosis mid superficial femoral artery, posterior tibial artery occlusion with reconstitution at the ankle from the peroneal artery. Patent Anterior Tibial and Peroneal Arteries Procedure: Left Common Femoral Artery access, Pelvic, right lower extremity, third order selective catheterization popliteal artery, completion angiography including lateral foot views, balloon angioplasty of SFA stenosis with a 4 mm x 40 cm balloon. Completion angiography. Surgeon: Ruchi Rodriguez M.D. Water Resource Engineer:Fahad Barker MD Anesthesia: Conscious sedation with 5 mg of Versed IV and 300 mcg of Fentanyl IV, 2% lidocaine subcutaneous 10 mL Moderate Conscious Sedation Time: 1 hour 43 minutes Other medications: Heparin 7,000 units IV Radiation dose: 1624 mGy; 07506.39 DAP Contrast: 60 mL of Visipaque Fluoroscopy time: 33.6 minutes ? Complications: None Condition: Stable to recovery Indication: Jewels Sweta?is a 58 y.o.female?with PMH of?HTN, COPD, DM, type 2, PAD, CRI,?bilateral carotid disease s/p left carotid [facility]rectomy in 2004 [facility] [place] She was previously being followed by Dr. Dodson for this. ? She was referred back to us by her manager subway Jorge A Pearson, who ordered SUSSY's and the results were abnormal. She presents to the office today with complaints of a painful right leg that is red and cold?that has been going on for the last 2 months. She reports this happens at night time when she elevates her leg.?She reports that hanging it down makes it feel better. She does not walk very much as she has COPD and gets short of breath. She also states he leg pain makes it difficult for her to walk. She reports episodes where she feels like she has a sock on her foot. She reports DM with her last A1C 7.6. She also states?that?she had chest pain and underwent a stress test which was negative. She denies any skin ulcerations. She has undergone?2 angiograms via the groins for her cerebral disease [place]. SUSSY/ TBI 10-23-19: Right digit 0.31; Left digit: 0.39 She has some focal disease on the CTA that would explain her SUSSY of 0.5. ?An SUSSY of 0.5 would not cause the sxs that she is having; however, she may have medial calcinosis and a TBI would be more accurate.??A?toe pressure would help clarify. Her stocking glove sxs may be related to diabetic neuropathy. We obtained a?TBI which is consistent with moderate disease. ?She still wanted to schedule an angiogram which would be from a Left Femoral access. ?I explained to her that given her size, she is at increased risk of groin complications. ?She agrees with this plan. ? Details of procedure: The patient was brought into the heart and vascular unit and placed supine on the procedure table. Her large pannus was taped cephalad. Left common femoral artery access would be performed and the left groin was prepped and draped in standard fashion. Local anesthetic was placed over the left femoral artery and access was performed using ultrasound guidance. The micropuncture kit was utilized and this was upsized to a 5 Qatari sheath (by 23 cm) and dilator. The angled Glidewire was advanced up into the distal aorta and the Omni Flush catheter was positioned at the aortic bifurcation. Pelvic angiogram was performed. Then the Omni Flush catheter was advanced over the wire down to the right external iliac artery distally. This was exchanged for a Terumo Versailles catheter which tracked better. Right lower extremity angiography was performed down to the foot. This was performed in stages. Decision was made to try to intervene on the treatable lesions of the Superficial Femoral Artery. Over an angled Glidewire, the 5 Qatari sheath was exchanged out for a 5 Qatari x 45 cm sheath was positioned over the top down to the level of the right WINIFRED. The dilator was removed and the sheath was aspirated and flushed with heparin saline solution. The patient was given 5,000 units of IV heparin. ACT was checked and was sub-therapeutic so another 2,000 units was given. Right lower extremity angiogram of the thigh/knee was performed and roadmap imaging was used to help localize the lesion. With the support of a Terumo glide catheter, the angled Glidewire was able to advance down through the diseased segment and advanced down into the at-knee popliteal artery. The lesion was balloon angioplastied with a 4 mm x 4 cm balloon (mid SFA, 2 min per inflation). Completion angiography demonstrated an excellent result with no residual stenosis. The left groin catheter was brought back into the left iliac system. The over the top sheath was exchanged back to the 5F x 23 cm sheath. Sterile dressings were applied the patient was taken in a stable condition to recovery room where she did well. Signals in the right foot were stable at the end of the procedure. The sheath was pulled once the ACT normalized. ?? Supervision interpretation: Patent Aorta, Common, External and Internal Iliac arteries. Mild Right proximal Common Iliac Artery Stenosis; Patent bilateral Common Femoral arteries; Patent Right profunda femoral artery, Patent Superficial Femoral Artery with high grade (95%) focal stenosis mid superficial femoral artery, posterior tibial artery occlusion with reconstitution at the ankle from the peroneal artery. Patent Anterior Tibial and Peroneal Arteries After balloon intervention of the SFA segment with the standard balloon, there was a good angiographic result in the SFA without recoil and with no evidence of embolization or dissection on run off imaging. ? Procedure Note Interface, Received Via [employer] - 11/11/2019 6:20 PM EST Preoperative Diagnosis: Right lower extremity peripheral vascular disease with right foot pain Postoperative diagnosis: Same, Patent Aorta, Common, External and Internal Iliac arteries. Mild Right proximal Common Iliac Artery Stenosis; Patent bilateral Common Femoral arteries; Patent Right profunda femoral artery, Patent Superficial Femoral Artery with high grade (95%) focal stenosis mid superficial femoral artery, posterior tibial artery occlusion with reconstitution at the ankle from the peroneal artery. Patent Anterior Tibial and Peroneal Arteries Procedure: Left Common Femoral Artery access, Pelvic, right lower extremity, third order selective catheterization popliteal artery, completion angiography including lateral foot views, balloon angioplasty of SFA stenosis with a 4 mm x 40 cm balloon. Completion angiography. Surgeon: Ruchi Rodriguez M.D. Water Resource Engineer:Fahad Barker MD Anesthesia: Conscious sedation with 5 mg of Versed IV and 300 mcg of Fentanyl IV, 2% lidocaine subcutaneous 10 mL Moderate Conscious Sedation Time: 1 hour 43 minutes Other medications: Heparin 7,000 units IV Radiation dose: 1624 mGy; 21855.39 DAP Contrast: 60 mL of Visipaque Fluoroscopy time: 33.6 minutes ? Complications: None Condition: Stable to recovery Indication: Jewels Sweta?is a 58 y.o.female?with PMH of?HTN, COPD, DM, type 2 , PAD, CRI,?bilateral carotid disease s/p left carotid [facility]arterectomy in 2004 [facility] [place] She was previously being followed by Dr. Dodson for this. ? She was referred back to us by her manager subway Jorge A Pearson, who ordered SUSSY's and the results were abnormal. She presents to the office today with complaints of a painful right leg that is red and cold?that has been going on for the last 2 months. She reports this happens at night time when she elevates her leg.?She reports that hanging it down makes it feel better. She does not walk very much as she has COPD and gets short of breath. She also states he leg pain makes it difficult for her to walk. She reports episodes where she feels like she has a sock on her foot. She reports DM with her last A1C 7.6. She also states?that?she had chest pain and underwent a stress test which was negative. She denies any skin ulcerations. She has undergone?2 angiograms via the groins for her cerebral disease [place]. SUSSY/ TBI 10-23-19: Right digit 0.31; Left digit: 0.39 She has some focal disease on the CTA that would explain her SUSSY of 0.5. ?An SUSSY of 0.5 would not cause the sxs that she is having; however, she may have medial calcinosis and a TBI would be more accurate.??A?toe pressure would help clarify. Her stocking glove sxs may be related to diabetic neuropathy. We obtained a?TBI which is consistent with moderate disease. ?She still wanted to schedule an angiogram which would be from a Left Femoral access. ?I explained to her that given her size, she is at increased risk of groin complications. ?She agrees with this plan. ? Details of procedure: The patient was brought into the heart and vascular unit and placed supine on the procedure table. Her large pannus was taped cephalad. Left common femoral artery access would be performed and the left groin was prepped and draped in standard fashion. Local anesthetic was placed over the left femoral artery and access was performed using ultrasound guidance. The micropuncture kit was utilized and this was upsized to a 5 Qatari sheath (by 23 cm) and dilator. The angled Glidewire was advanced up into the distal aorta and the Omni Flush catheter was positioned at the aortic bifurcation. Pelvic angiogram was performed. Then the Omni Flush catheter was advanced over the wire down to the right external iliac artery distally. This was exchanged for a Terumo Versailles catheter which tracked better. Right lower extremity angiography was performed down to the foot. This was performed in stages. Decision was made to try to intervene on the treatable lesions of the Superficial Femoral Artery. Over an angled Glidewire, the 5 Qatari sheath was exchanged out for a 5 Qatari x 45 cm sheath was positioned over the top down to the level of the right WINIFRED. The dilator was removed and the sheath was aspirated and flushed with heparin saline solution. The patient was given 5,000 units of IV heparin. ACT was checked and was sub- therapeutic so another 2,000 units was given. Right lower extremity angiogram of the thigh/knee was performed and roadmap imaging was used to help localize the lesion. With the support of a Terumo glide catheter, the angled Glidewire was able to advance down through the diseased segment and advanced down into the at-knee popliteal artery. The lesion was balloon angioplastied with a 4 mm x 4 cm balloon (mid SFA, 2 min per inflation). Completion angiography demonstrated an excellent result with no residual stenosis. The left groin catheter was brought back into the left iliac system. The over the top sheath was exchanged back to the 5F x 23 cm sheath. Sterile dressings were applied the patient was taken in a stable condition to recovery room where she did well. Signals in the right foot were stable at the end of the procedure. The sheath was pulled once the ACT normalized. ?? Supervision interpretation: Patent Aorta, Common, External and Internal Iliac arteries. Mild Right proximal Common Iliac Artery Stenosis; Patent bilateral Common Femoral arteries; Patent Right profunda femoral artery, Patent Superficial Femoral Artery with high grade (95%) focal stenosis mid superficial femoral artery, posterior tibial artery occlusion with reconstitution at the ankle from the peroneal artery. Patent Anterior Tibial and Peroneal Arteries After balloon intervention of the SFA segment with the standard balloon, there was a good angiographic result in the SFA without recoil and with no evidence of embolization or dissection on run off imaging. ? Performing Organization Address City/[facility]/Zipcode Phone Number [facility] [address] [place] [address] POCT i-STAT ACT (11/11/2019 10:59 AM EST) i-Stat ACT [address] [facility] POC Specimen Whole Blood Performing Organization Address City/[facility] Phone Number POINT OF CARE TEST [address] [place], [place] [id number] [place] [address] POC [address] [place] [address] POCT i-STAT ACT (11/11/2019 10:28 AM EST) i-Stat ACT [address] [facility] POC Specimen Whole Blood Performing Organization Address [facility] Phone Number POINT OF CARE TEST [address] [place], [place] [id number] [place] [address] POC [address] [place] [address] POCT glucose, docked (11/11/2019 8:06 AM EST) POC Glucose 159 (H) 70 - 140 mg/dL [facility] POC Specimen Whole Blood Performing Organization Address City/[facility]/Zipcode Phone Number POINT OF CARE TEST [address] [place] [address] [facility] POC [address] [place] [address] CBC (11/11/2019 8:00 AM EST) White Blood Cell 10.3 (H) 4 - 10 10*3/uL [facility] Pathology Red Blood Cell 4.88 4.1 - 5.3 [facility] 10*6/uL [facility] Pathology Hemoglobin 13.6 11.5 - 15.5 [facility] g/dL [facility] Pathology Hematocrit 40.5 36 - 45 % [facility] Pathology Mean Cell Volume 83.0 80 - 96 fL [facility] Pathology Mean Cell Hemoglobin 27.8 27 - 33 pg [facility] Pathology Mean Cell Hgb Conc 33.5 32.0 - 36.0 [facility] g/dL [facility] Pathology Red Cell Dist Width 19.6 (H) 11.5 - 14.5 % [facility] Pathology Platelet Count 191 150 - 400 [facility] 10*3/uL [facility] Pathology Specimen EDTA Whole Blood Performing Organization Address City/[facility]/Zipcode Phone Number [facility] CL[facility]ICAL PATHOLOGY [address] [place] [address] [phone] [facility] [address] [place] [address] Pathology Basic Metabolic Panel (11/11/2019 8:00 AM EST) Pathologist [facility] [place] Bicarbonate 22 22 - 29 mmol/L [facility]ology Chloride 103 98 - 107 mmol/L [facility]ology Creatinine 0.70 0.50 - 0.90 [facility] mg/dL [facility] Pathology Glucose 173 (H) 70 - 140 mg/dL [facility]ology Potassium 4.6 3.4 - 5.1 [facility] mmol/L [facility] Pathology Sodium 140 136 - 145 [facility] mmol/L [facility] Pathology Blood Urea Nitrogen 12 6 - 20 mg/dL [facility] Pathology Anion Gap 16 (H) 8 - 15 mmol/L [facility] Pathology Osmolality, Serafin 294 275 - 300 [facility] mosm/kg [facility] Pathology BUN/Cre Ratio 17 [facility] Pathology Calcium 9.0 8.6 - 10.0 [facility] mg/dL [facility] GFR Non >90 >60 [facility] [place] 2008 CDK-EPI mL/min/1.73m2 [facility] Pathology GFR >90 >60 [facility] 2008 CKD-EPI mL/min/1.73m2 [facility] Pathology Specimen Plasma Performing Organization Address City/State/Zipcohi Phone Number [facility] CLINICAL PATHOLOGY [address] [place] [address] [phone] [facility] [address] [place] [address] Pathology documented in this encounter Visit Diagnoses Diagnosis Claudication Peripheral vascular disease, unspecified documented in this encounter Administered Medications Medication Order MAR Action Action Date Dose Rate Site acetaminophen (TYLENOL) 160 Given 11/11/2019 3:09 PM EST 650 mg MG/5ML solution (ADULT) 650 mg 650 mg, Oral, Every 6 hours, First dose on Mon11/11/19 at 1530, For 2 days, Maximum dose of acetaminophen is 3,000 mg from all sources in 24 hours., benzonatate (TESSALON) capsule 100 mg 100 mg, Oral, Daily PRN, Cough, Starting Mon11/11/19 at 1622, For 30 days, Swallow whole, diltiazem (CARDIZEM SR) 12 hr capsule 120 mg 120 mg, Oral, Nightly, First dose (after last modification) on Mon11/11/19 at 2100, For 30 days divalproex (DEPAKOTE) 24 hr tablet 500 mg 500 mg, Oral, 2 Times Daily, First dose on Mon11/11/19 at 2100, For 30 days, Do not crush or chew, famotidine (PEPCID) tablet 40 mg 40 mg, Oral, Nightly, First dose on Mon11/11/19 at 2200, For 2 days, Therapeutic substitution for ranitidine per policy., gabapentin (NEURONTIN) capsule 100 mg 100 mg, Oral, Three Times Daily Standard, First dose on Mon11/11/19 at 1700, For 30 days lamoTRIgine (LaMICtal) tablet 75 mg 75 mg, Oral, Daily Standard, First dose on Mon11/12/19 at 0900, For 30 days pantoprazole (PROTONIX) EC tablet 40 mg 40 mg, Oral, Daily Standard, First dose on Mon11/12/19 at 0900, For 30 days, Do not crush or chew, Medication Order MAR Action Action Date Dose Rate Site oxyCODONE (ROXICODONE) immediate Given 11/11/2019 4:45 PM EST 5 mg release tablet 5 mg 5 mg, Oral, Every 4 hours PRN, Moderate Pain (Pain Scale Score 4-6), Starting 11/11/19 at 1644, For 3 days, Recovery, Oxycodone immediate release is limited to 10 mg per dose. Higher doses ( only) require Pain Service consultation and approval., documented in this encounter
--- OUTSIDE RECORDS SUMMARY | 2019-12-01 11:52 | XMS REPORT ---
:1960 Author Organization [facility] Care Team Providers Name Role Phone Unavailable [...] d 06-20 10:30:00 (Andrés) 08:20: Walker 00 [id number] Cardio edema Cardiovasc Resolve 2018-08-16 Becca ular d 06-20 10:00:00 (Andrés) 08:20: Walker 00 [id number] Respiratory dyspnea Respirator Resolve 2019-02-05 Becca present y d 06-20 10:30:00 (Andrés) 08:20: Walker 00 [id number] Respiratory lung sounds Respirator Resolve 2019-02-05 Becca deficit y d 06-20 10:30:00 (Andrés) 08:20: Walker 00 [id number] Endo/Gage anti-coagul Endo/Gage Resolve 2018-07-31 Becca ation d 06-20 11:58:00 (Andrés) therapy 08:20: Walker [id number] Integument skin Integument Active Becca integrity 06-20 (Andrés) risk 08:20: Walker [id number] Elimination urinary Eliminatio Resolve 2018-08-16 Becca incontinenc n d 06-20 10:00:00 (Andrés) e 08:20: Walker [id number] Neuro confusion Neuro/Emot Active Becca present ion 06-20 (Andrés) 08:20: Walker [id number] Neuro anxiety Neuro/Emot Active Becca present ion 06-20 (Andrés) 08:20: Walker [id number] Neuro impaired Neuro/Emot Active Becca decision-ma ion 06-20 (Andrés) caty 08:20: Walker [id number] Activity ADL Activity Active Becca assistance 06-20 (Andrés) required 08:20: Walker [id number] Safety cannot be Safety Active Becca left alone 06-20 (Andrés) 08:20: Walker [id number] Safety fall risk Safety Resolve 2019-08-13 Becca factor d 06-20 10:55:00 (Andrés) present 08:20: Walker [id number] Safety risk for Safety Resolve 2019-08-13 Becca hospitaliza d 06-20 10:55:00 (Andrés) tion 08:20: Walker [id number] Medication oral med Meds Resolve 2018-07-31 Becca assistance d 06-20 11:58:00 (Andrés) required 08:20: Walker [id number] Medication potential Meds Resolve 2018-07-31 Becca clinically d 06-20 11:58:00 (Andrés) significant 08:20: Walker medication 00 [id number] issue Musculoskel requires Musculoske Resolve 2019-06-13 Becca etal human letal d 06-20 13:00:00 (Andrés) assist to 08:20: Walker leave home 00 [id number] Musculoskel transfer Musculoske Resolve 2019-06-13 Becca etal assistance letal d 06-20 13:00:00 Guidelli required 08:20: [id number] Respiratory oxygen Respirator Resolve 2019-02-05 Loreta treatments y d 06-26 10:30:00 [place]os in home 10:28: h [id number] 00 Safety can be left Safety Active Loreta alone for 06-26 Guy-Zos only short 10:28: h [id number] periods 00 Elimination urinary Eliminatio Resolve 2017-102018-08-16 Loreta frequency n d 10:00:00 Guy-Zos 11:58: h [id number] 00 Neuro knowledge/s Neuro/Emot Active 2017-10 Loreta kill ion 0 Guy-Zos deficit: cg 11:58: h [id number] 00 Endo/Gage anti-coagul Endo/Gage Resolve 2017-102019-01-29 Loreta ation d 1-15 12:45:00 [place]-Zos therapy 10:00: h [id number] 00 Neuro depressive Neuro/Emot Active 2017-10 Loreta feelings ion 1-15 Guy-Zos present 10:00: h [id number] 00 Medication oral med Meds Resolve 2017-102019-02-05 Loreta assistance d 1-15 10:30:00 [place]-Zos required 10:00: h [id number] 00 Medication injectable Meds Resolve 2017-102019-02-05 Loreta med d -15 10:30:00 Guy-Zos assistance 10:00: h [id number] required 00 Medication potential Meds Active 2017-10 Loreta clinically -15 Guy-Zos significant 10:00: h [id number] medication 00 issue Endo/Gage knowledge/s Endo/Gage Resolve [...] treatment y 12-25 Emily in home 09:30: [id number] 00 Endo/Gage glucose Endo/Gage Resolve 2019-01-29 Cherrise tolerance d 12-25 12:45:00 Chapin problem 09:30: [id number] Nutrition knowledge/s Nutrition Resolve 2019-01-29 Cherrise kill d 12-25 12:45:00 Emily deficit: pt 09:30: [id number] 00 Elimination urinary Eliminatio Resolve 2019-01-15 Cherrise incontinenc n d 12-25 11:25:00 Emily e 09:30: [id number] 00 Elimination urinary Eliminatio Resolve 2019-01-15 Cherrise urgency n d 12-25 11:25:00 Chapin 09:30: [id number] 00 Endo/Gage insulin Endo/Gage Resolve 2019-02-05 Cherrise admn d 02 10:30:00 Chapin dependence 09:55: [id number] 00 Endo/Gage glucose Endo/Gage Resolve 2019-02-05 Cherrise testing d 01-01 10:30:00 Chapin dependence 09:55: [id number] 00 Elimination urinary Eliminatio Resolve 2019-01-15 Cherrise frequency n d 4 11:25:00 Emily 09:55: [id number] 00 Elimination recurring Eliminatio Resolve 2019-02-05 Cherrise UTI n d 01-01 10:30:00 Emily 09:55: [id number] 00 Respiratory knowledge/s Respirator Resolve 2019-01-08 Marlene [...] n 0-08 Nila e 09:15: [employer] 00 [id number] Elimination constipatio Eliminatio Active 2018-10 Marlene n [...] Tiffani n 10-27 Nila 09:00: [employer] 00 [id number] Safety [facility] for [facility] tion 09:00: [employer] 00 [id number] Safety knowledge/s Safety Active 2018-10 Marlene kill [...] mg capsule capsule carvedilol carvedilol 2017- No [place] Unknown Unknown 6.25 mg 6.25 mg 06-20 Abiel UPTON tablet tablet Brandon Vitamin D3 Vitamin D3 No Crowe 2000 Unknown 50 mcg 50 mcg Sarah UPTON units (2,000 (2,000 unit) unit) capsule capsule dilTIAZem dilTIAZem 2017- No [place] Unknown Unknown 120 mg 120 mg 06-20 Abiel U[facility] tablet tablet Brandon Depakote Depakote No Crowe 1-2 Unknown 500 mg 500 mg Sarah [facility]ON tablet,lauryn tablet,lauryn yed release yed release Colace 100 Colace 100 2017- No [facility] Unknown Unknown mg capsule mg capsule 06-20 Abiel [facility] furosemide furosemide No Crowe 20 mg Unknown 20 mg 20 mg Sarah [facility] tablet tablet gabapentin gabapentin 2017- No [place] Unknown Unknown 300 mg 300 mg 06-20 Abiel [facility] capsule capsule Brandon glimepiride glimepiride No Crowe 4 mg Unknown 4 mg tablet 4 mg tablet Sarah U[facility] liraglutide liraglutide No Crowe 1 Unknown 0.6 mg/0.1 0.6 mg/0.1 Sarah UPTON injecti mL (18 mg/3 mL (18 mg/3 on mL) mL) subcutaneou subcutaneou s pen s pen injector injector lisinopril lisinopril 2017- No [place] Unknown Unknown 20 mg 20 mg 06-20 Abiel U[facility] tablet tablet Brandon Oyster Oyster No Crowe 500 mg Unknown Shell Shell Sarah [facility] Calcium 500 Calcium 500 500 mg 500 mg calcium calcium (1,250 mg) (1,250 mg) tablet tablet multivitami multivitami 2017- No [place] Unknown Unknown n capsule n capsule 06-20 [...] Sarah [facility]PTON capsule capsule oxygen oxygen No Hercul[place]um Unknown Unknown 06-20 Abiel U[facility]ON clopidogrel clopidogrel 2018- No [place]um Unknown Unknown 75 mg 75 mg 06-20 Abiel U[facility]ON tablet tablet Brandon desvenlafax desvenlafax 2018- No [facility]um Unknown Unknown ine ine 06-20 ,Abiel succinate succinate Brandon ER 100 mg ER 100 mg tablet,exte tablet,exte nded nded release 24 release 24 hr hr diphenhydrA diphenhydrA 2017- No [facility]um Unknown Unknown MINE 25 mg MINE 25 mg 06-20 Abiel [facility] capsule capsule Brandon Depakote ER Depakote ER 2018- No [place] Unknown Unknown 500 mg 500 mg 06-20 Abiel U[facility]ON tablet,exte tablet,exte Brandon nded nded release release famotidine famotidine 2018- No [place]um Unknown Unknown 40 mg 40 mg 06-20 Abiel U[facility]ON tablet tablet Brandon gabapentin gabapentin 2017- No [place] Unknown Unknown 100 mg 100 mg 06-20 Abiel U[facility]ON capsule capsule Brandon glimepiride glimepiride 2018- No [place]um Unknown Unknown 4 mg tablet 4 mg tablet 06-20 Abiel [facility] Nystop Nystop No Hercul[place]um Unknown Unknown 100,000 100,000 06-20 Abiel U[facility] unit/gram unit/gram Brandon topical topical powder powder atorvastati atorvastati 2017- Hercul[place]um Unknown Unknown n 80 mg n 80 mg 06-20 Abiel U[facility] tablet tablet Brandon carvedilol carvedilol 2017-10- No [place] Unknown Unknown 6.25 mg 6.25 mg 07-02 Abiel U[facility] tablet tablet Brandon Colace 100 Colace 100 2017-10- No [place]um Unknown Unknown mg capsule mg capsule 07-02 Abiel [facility] diphenhydrA diphenhydrA 2017-10- No Her[facility]um Unknown Unknown MINE 25 mg MINE 25 mg 12-14 Abiel [facility] capsule capsule Brandon Depakote ER Depakote ER 2017-10- No Her[place]um Unknown Unknown 500 mg 500 mg 09-27 Abiel U[facility]ON tablet,exte tablet,exte Brandon nded nded release release Topamax 50 Topamax 50 2017- No Kandy Unknown Unknown mg tablet mg tablet 06-27 ,Willian Saphris Saphris 2017- No Kandy Unknown Unknown (black (black 06-27 ,Willian golden) 10 golden) 10 mg mg sublingual sublingual tablet tablet pantoprazol pantoprazol 2017- No Her[place]um Unknown Unknown e 40 mg e 40 mg 06-27 Abiel U[facility]ON tablet,lauryn tablet,lauryn Brandon yed release yed release raNITIdine raNITIdine 2017- No [place]um Unknown Unknown 300 mg 300 mg 06-27 Abiel U[facility]ON tablet tablet Brandon Calcium 500 Calcium 500 2017- No Her[facility]um Unknown Unknown With D 500 With D 500 06-27 Abiel U[facility]ON (1,250 mg (1,250 Brandon mg)-400 mg)-400 unit tablet unit tablet Vitamin D3 Vitamin D3 2018- No [facility]um Unknown Unknown 400 unit 400 unit 06-27 Abiel U[facility] capsule capsule Brandon Victoza Victoza No [facility] Unknown Unknown 2-Jeison 0.6 2-Jeison 0.6 06-27 Abiel UPTON mg/0.1 mL mg/0.1 mL Brandon (18 mg/3 (18 mg/3 mL) mL) subcutaneou subcutaneou s pen s pen injector injector atorvastati atorvastati 2017-10- No Hercul[place]um Unknown Unknown n 80 mg n 80 [...] tablet 10-09 ,Geraldo doxycycline doxycycline 2017-10- No Hercul[facility]um Unknown Unknown monohydrate monohydrate 10-15 Abiel UPTON 100 mg 100 mg Brandon capsule capsule lithium lithium 2017-10- No Kandy Unknown Unknown carbonate carbonate 11-28 ,Willian 300 mg 300 mg tablet tablet Depakote ER Depakote ER 2017-10- No Kandy Unknown Unknown 500 mg 500 mg 11-28 ,Willian tablet,exte tablet,exte nded nded release release sennosides sennosides 2017-10 No Hercul[place]um Unknown Unknown 8.6 8.6 11-28 Abiel UPTON [...] mg tablet tablet diphenhydrA diphenhydrA 2018- No Hercul[place]um Unknown Unknown MINE 25 mg MINE 25 mg 12-14 ,Abiel capsule capsule Brandon clindamycin clindamycin 2018- No Pate Unknown Unknown HCl 300 mg HCl 300 mg 12-25 ,Deb capsule capsule dilTIAZem dilTIAZem No Herculaneum Unknown Unknown 120 mg 120 mg 06-20 ,Abiel tablet tablet Brandon gabapentin gabapentin 2018- No Herculaneum Unknown Unknown 300 mg 300 mg 06-20 ,Abiel capsule capsule Brandon lisinopril lisinopril No Herculaneum Unknown Unknown 20 mg 20 mg 06-20 ,Abiel tablet tablet Brandon multivitami multivitami No Herculaneum Unknown Unknown n capsule n capsule 06-20 Abiel U[facility]ON clopidogrel clopidogrel No Herculaneum Unknown Unknown 75 mg 75 mg 06-20 ,Abiel tablet tablet Brandon gabapentin gabapentin No Herculaneum Unknown Unknown 100 mg 100 mg 06-20 ,Abiel capsule capsule Brandon glimepiride glimepiride No Herculaneum Unknown Unknown 4 mg tablet 4 mg tablet 06-20 Abiel U[facility]ON carvedilol carvedilol 2017- No Hercul[place]um Unknown Unknown 6.25 mg 6.25 mg 06-20 ,Abiel tablet tablet Brandon Saphris Saphris 2018- No Kandy Unknown Unknown (black (black 06-20 ,Willian golden) 10 chico) 10 mg mg sublingual sublingual tablet tablet pantoprazol pantoprazol No Herculaneum Unknown Unknown e 40 mg e 40 mg 06-20 ,Abiel tablet,lauryn tablet,lauryn Brandon yed release yed release raNITIdine raNITIdine No Herculaneum Unknown Unknown 300 mg 300 mg 06-20 ,Abiel tablet tablet Brandon Calcium 500 Calcium 500 2017- No Herculaneum Unknown Unknown With D 500 With D 500 06-20 Abiel U[facility]ON mg (1,250 mg (1,250 Brandon mg)-400 mg)-400 unit tablet unit tablet Vitamin D3 Vitamin D3 2018- No Herculaneum Unknown Unknown 1,000 unit 1,000 unit 01-01 ,Abiel capsule capsule Brandon atorvastati atorvastati 2017- No Herculaneum Unknown Unknown n 80 mg n 80 mg 1 10- ,Abiel tablet tablet Brandon atorvastati atorvastati 2017-10 No Herculaneum Unknown Unknown n 80 mg n 80 [...] 24 hour hour carvedilol carvedilol 2017-10- No Herculaneum Unknown Unknown 6.25 mg 6.25 mg 07-02 ,Abiel tablet tablet Brandon Saphris Saphris 2018- No Kandy Unknown Unknown (black (black 06-27 ,Willian golden) 10 [place]) 10 mg mg sublingual sublingual tablet tablet Calcium 500 Calcium 500 2018- No Herculaneum Unknown Unknown With D 500 With D 500 06-27 Abiel UPTON mg (1,250 mg (1,250 Brandon mg)-400 mg)-400 unit tablet unit tablet Topamax 50 Topamax 50 2017-10- No Kaitlynn Unknown Unknown mg tablet mg tablet 10-09 Geraldo UPTON Depakote ER Depakote ER No Kandy Unknown Unknown 500 mg 500 mg 10-23 MD,Willian tablet,exte tablet,exte nded nded release release diphenhydrA diphenhydrA No Herculaneum Unknown Unknown MINE 25 mg MINE 25 mg 3-15 ,Abiel capsule capsule Brandon lithium lithium 2018- No Kandy Unknown Unknown carbonate carbonate 11-29- ,Willian 300 mg 300 mg tablet tablet Colace 100 Colace 100 2017-10- No Herculaneum Unknown Unknown mg capsule mg capsule 01-01 Abiel UPTON ipratropium ipratropium No Herculaneum Unknown Unknown bromide bromide 02-19 ,Abiel 0.02 % 0.02 % Rbandon solution solution for for inhalation inhalation albuterol albuterol No Herculaneum Unknown Unknown sulfate 2.5 sulfate 2.5 02-19 Abiel UPTON mg/3 mL mg/3 mL Brandon (0.083 %) (0.083 %) solution solution for for nebulizatio nebulizatio n n predniSONE predniSONE 2018- No Herculaneum Unknown Unknown 20 mg 20 mg 12-28 ,Abiel tablet tablet Brandon benzonatate benzonatate No Herculaneum Unknown Unknown 100 mg 100 mg 12-28 ,Abiel capsule capsule Brandon doxycycline doxycycline 2018- No Herculaneum Unknown Unknown hyclate 100 hyclate 100 12-28 [...] Unknown Unknown mg tablet mg tablet 05-21 ,Gerlado Lewisulti 2 Rexulti 2018- No Kandy Unknown [...] MD,Deb tablet tablet carvedilol carvedilol 2017-10 No Herculaneum Unknown Unknown 6.25 mg 6.25 mg 0- ,Abiel tablet tablet Brandon Latuda 20 Latuda 20 2018-10- No Kandy Unknown Unknown mg tablet mg tablet 10-02 ,Willian Latuda 40 Latuda 40 2018-10- No Kandy Unknown Unknown mg tablet mg tablet 10-09 ,Willian Aimovig Aimovig 2019-1 No Kaitlynn Unknown Unknown Autoinjecto Autoinjecto 1-08 Geraldo UPTON r 70 mg/mL r 70 mg/mL subcutaneou subcutaneou s s auto-inject auto-inject or or Latuda 60 Latuda 60 2018-10 Yes Kandy Unknown Unknown mg tablet mg tablet 1- Willian U[facility]ON LaMICtal 25 LaMICtal 2018-10 Yes Kandy Unknown Unknown mg tablet mg tablet 2- Willian U[facility]ON Vital Signs Vital Name Observation [...]
--- OUTSIDE RECORDS SUMMARY | 2019-12-01 11:53 | XMS REPORT ---
:1960 Author Organization [facility] Care Team Providers Name Role Phone Unavailable [...] d 06-20 10:30:00 (Andrés) 08:20: Walker 00 [id number] Cardio edema Cardiovasc Resolve 2018-08-16 Becca ular d 06-20 10:00:00 (Andrés) 08:20: Walker 00 [id number] Respiratory dyspnea Respirator Resolve 2019-02-05 Becca present y d 06-20 10:30:00 (Andrés) 08:20: Walker 00 [id number] Respiratory lung sounds Respirator Resolve 2019-02-05 Becca deficit y d 06-20 10:30:00 (Andrés) 08:20: Walker 00 [id number] Endo/Gage anti-coagul Endo/Gage Resolve 2018-07-31 Becca ation d 06-20 11:58:00 (Andrés) therapy 08:20: Walker [id number] Integument skin Integument Active Becca integrity 06-20 (Andrés) risk 08:20: Walker [id number] Elimination urinary Eliminatio Resolve 2018-08-16 Becca incontinenc n d 06-20 10:00:00 (Andrés) e 08:20: Walker [id number] Neuro confusion Neuro/Emot Active Becca present ion 06-20 (Andrés) 08:20: Walker [id number] Neuro anxiety Neuro/Emot Active Becca present ion 06-20 (Andrés) 08:20: Walker [id number] Neuro impaired Neuro/Emot Active Becca decision-ma ion 06-20 (Andrés) caty 08:20: Walker [id number] Activity ADL Activity Active Becca assistance 06-20 (Andrés) required 08:20: Walker [id number] Safety cannot be Safety Active Becca left alone 06-20 (Andrés) 08:20: Walker [id number] Safety fall risk Safety Resolve 2019-08-13 Becca factor d 06-20 10:55:00 (Andrés) present 08:20: Walker [id number] Safety risk for Safety Resolve 2019-08-13 Becca hospitaliza d 06-20 10:55:00 (Andrés) tion 08:20: Walker [id number] Medication oral med Meds Resolve 2018-07-31 Becca assistance d 06-20 11:58:00 (Andrés) required 08:20: Walker [id number] Medication potential Meds Resolve 2018-07-31 Becca clinically d 06-20 11:58:00 (Andrés) significant 08:20: Walker medication 00 [id number] issue Musculoskel requires Musculoske Resolve 2019-06-13 Becca etal human letal d 06-20 13:00:00 (Andrés) assist to 08:20: Walker leave home 00 [id number] Musculoskel transfer Musculoske Resolve 2019-06-13 Becca etal assistance letal d 06-20 13:00:00 Guidelli required 08:20: [id number] Respiratory oxygen Respirator Resolve 2019-02-05 Loreta treatments y d 06-26 10:30:00 Gardner-Zos in home 10:28: h [id number] 00 Safety can be left Safety Active Loreta alone for 06-26 Guy-Zos only short 10:28: h [id number] periods 00 Elimination urinary Eliminatio Resolve 2017-102018-08-16 Loreta frequency n d 10:00:00 Guy-Zos 11:58: h [id number] 00 Neuro knowledge/s Neuro/Emot Active 2017-10 Loreta kill ion 0 Gardner-Zos deficit: cg 11:58: h [id number] 00 Endo/Gage anti-coagul Endo/Gage Resolve 2017-102019-01-29 Loreta ation d 1-15 12:45:00 Guy-Zos therapy 10:00: h [id number] 00 Neuro depressive Neuro/Emot Active 2017-10 Loreta feelings ion 1-15 Gardner-Zos present 10:00: h [id number] 00 Medication oral med Meds Resolve 2017-102019-02-05 Loreta assistance d 1-15 10:30:00 Guy-Zos required 10:00: h [id number] 00 Medication injectable Meds Resolve 2017-102019-02-05 Loreta med d -15 10:30:00 Guy-Zos assistance 10:00: h [id number] required 00 Medication potential Meds Active 2017-10 Loreta clinically -15 Guy-Zos significant 10:00: h [id number] medication 00 issue Endo/Gage knowledge/s Endo/Gage Resolve [...] treatment y 12-25 Emily in home 09:30: [id number] 00 Endo/Gage glucose Endo/Gage Resolve 2019-01-29 Cherrise tolerance d 12-25 12:45:00 Emily problem 09:30: [id number] Nutrition knowledge/s Nutrition Resolve 2019-01-29 Cherrise kill d 12-25 12:45:00 Emily deficit: pt 09:30: [id number] 00 Elimination urinary Eliminatio Resolve 2019-01-15 Cherrise incontinenc n d 12-25 11:25:00 [place] e 09:30: [id number] 00 Elimination urinary Eliminatio Resolve 2019-01-15 Cherrise urgency n d 12-25 11:25:00 Emily 09:30: [id number] 00 Endo/Gage insulin Endo/Gage Resolve 2019-02-05 Cherrise admn d 02 10:30:00 Emily dependence 09:55: [id number] 00 Endo/Gage glucose Endo/Gage Resolve 2019-02-05 Cherrise testing d 01-01 10:30:00 Emily dependence 09:55: [id number] Elimination urinary Eliminatio Resolve 2019-01-15 Cherrise frequency n d 4 11:25:00 Emily 09:55: [id number] 00 Elimination recurring Eliminatio Resolve 2019-02-05 Cherrise UTI n d 01-01 10:30:00 Emily 09:55: [id number] 00 Respiratory knowledge/s Respirator Resolve 2019-01-08 Marlene [...] n 0-08 Nila e 09:15: [employer] 00 [id number] Elimination constipatio Eliminatio Active 2018-10 Marlene n [...] Tiffani n 10-27 Nila 09:00: [employer] 00 [id number] Safety risk for Safety Active 2018-10 Tiffani hospitaliza 10-27 Nila tion 09:00: [employer] 00 [id number] Safety knowledge/s Safety Active 2018-10 Marlene kill [...] mg capsule capsule carvedilol carvedilol 2017- No [place] Unknown Unknown 6.25 mg 6.25 mg 06-20 Abiel UPT[facility] tablet tablet Brandon Vitamin D3 Vitamin D3 No Crowe 2000 Unknown 50 mcg 50 mcg Sarah [facility] units (2,000 (2,000 unit) unit) capsule capsule dilTIAZem dilTIAZem 2017- No [place] Unknown Unknown 120 mg 120 mg 06-20 Abiel [facility] tablet tablet Brandon Depakote Depakote No Crowe 1-2 Unknown 500 mg 500 mg Sarah [facility] tablet,lauryn tablet,lauryn yed release yed release Colace 100 Colace 100 2017- No [place] Unknown Unknown mg capsule mg capsule 06-20 Abiel [facility] furosemide furosemide No Crowe 20 mg Unknown 20 mg 20 mg Sarah [facility] tablet tablet gabapentin gabapentin 2017- No [place] Unknown Unknown 300 mg 300 mg 06-20 Abiel [facility] capsule capsule Brandon glimepiride glimepiride No Crowe 4 mg Unknown 4 mg tablet 4 mg tablet Sarah [facility] liraglutide liraglutide No Crowe 1 Unknown 0.6 mg/0.1 0.6 mg/0.1 Sarah [facility] injecti mL (18 mg/3 mL (18 mg/3 on mL) mL) subcutaneou subcutaneou s pen s pen injector injector lisinopril lisinopril 2017- No [place] Unknown Unknown 20 mg 20 mg 06-20 Abiel [facility] tablet tablet Brandon Oyster Oyster No Crowe 500 mg Unknown Shell Shell Sarah UPTNO Calcium 500 Calcium 500 500 mg 500 mg calcium calcium (1,250 mg) (1,250 mg) tablet tablet multivitami multivitami 2017- No [place] Unknown Unknown n capsule n capsule 06-20 [...] Sarah [facility] capsule capsule oxygen oxygen No [place] Unknown Unknown 06-20 Abiel [facility] clopidogrel clopidogrel 2017- No [place] Unknown Unknown 75 mg 75 mg 06-20 Abiel [facility] tablet tablet Brandon desvenlafax desvenlafax 2017- No [place] Unknown Unknown ine ine 06-20 ,Abiel succinate succinate Brandon ER 100 mg ER 100 mg tablet,exte tablet,exte nded nded release 24 release 24 hr hr diphenhydrA diphenhydrA 2017- No [place] Unknown Unknown MINE 25 mg MINE 25 mg 06-20 Abiel [facility] capsule capsule Brandon Depakote ER Depakote ER 2017- No [place] Unknown Unknown 500 mg 500 mg 06-20 Abiel [facility] tablet,exte tablet,exte Brandon nded nded release release famotidine famotidine 2017- No [place] Unknown Unknown 40 mg 40 mg 06-20 Abiel [facility] tablet tablet Brandon gabapentin gabapentin 2017- No [place] Unknown Unknown 100 mg 100 mg 06-20 Abiel [facility] capsule capsule Brandon glimepiride glimepiride 2017- No [place] Unknown Unknown 4 mg tablet 4 mg tablet 06-20 Abiel [facility] Nystop Nystop No [place] Unknown Unknown 100,000 100,000 06-20 Abiel [facility] unit/gram unit/gram Brandon topical topical powder powder atorvastati atorvastati 2017- No [place] Unknown Unknown n 80 mg n 80 mg 06-20 Abiel [facility] tablet tablet Brandon carvedilol carvedilol 2017-10- No [place] Unknown Unknown 6.25 mg 6.25 mg 07-02 ,Abiel tablet tablet Brandon Colace 100 Colace 100 2017-10- No [place] Unknown Unknown mg capsule mg capsule 07-02 Abiel [facility] diphenhydrA diphenhydrA 2017-10- No [place] Unknown Unknown MINE 25 mg MINE 25 mg 12-14 ,Abiel capsule capsule Brandon Depakote ER Depakote ER 2017-10- No [place] Unknown Unknown 500 mg 500 mg 09-27 ,Abiel tablet,exte tablet,exte Brandon nded nded release release Topamax 50 Topamax 50 2017- Kandy Unknown Unknown mg tablet mg tablet 06-27 ,Willian Saphris Saphris 2017- No Kandy Unknown Unknown (black (black 06-27 ,Willian golden) 10 [place]) 10 mg mg sublingual sublingual tablet tablet pantoprazol pantoprazol 2017- No [place] Unknown Unknown e 40 mg e 40 mg 06-27 ,Abiel tablet,lauryn tablet,lauryn Brandon yed release yed release raNITIdine raNITIdine 2017- No [place] Unknown Unknown 300 mg 300 mg 06-27 Abiel [facility] tablet tablet Brandon Calcium 500 Calcium 500 2017- No [place] Unknown Unknown With D 500 With D 500 06-27 Abiel [facility] mg (1,250 mg (1,250 Brandon mg)-400 mg)-400 unit tablet unit tablet Vitamin D3 Vitamin D3 2018- No [place] Unknown Unknown 400 unit 400 unit 06-27 Abiel [facility] capsule capsule Brandon Victoza Victoza No [place] Unknown Unknown 2-Jeison 0.6 2-Jeison 0.6 06-27 Abiel [facility] mg/0.1 mL mg/0.1 mL Brandon (18 mg/3 (18 mg/3 mL) mL) subcutaneou subcutaneou s pen s pen injector injector atorvastati atorvastati 2017-10- No [place] Unknown Unknown n 80 mg n 80 [...] tablet 10-09 ,Geraldo doxycycline doxycycline 2017-10- No [place] Unknown Unknown monohydrate monohydrate 10-15 ,Abiel 100 mg 100 mg Brandon capsule capsule lithium lithium 2017-10- No Kandy Unknown Unknown carbonate carbonate 11-28 ,Willian 300 mg 300 mg tablet tablet Depakote ER Depakote ER 2017-10- No Kandy Unknown Unknown 500 mg 500 mg 11-28 ,Willian tablet,exte tablet,exte nded nded release release sennosides sennosides 2017-10 No [place] Unknown Unknown 8.6 8.6 11-28 ,Abiel mg-docusate [...] mg tablet tablet diphenhydrA diphenhydrA 2018- No [place] Unknown Unknown MINE 25 mg MINE 25 mg 12-14 ,Abiel capsule capsule Brandon clindamycin clindamycin 2018- No Pate Unknown Unknown HCl 300 mg HCl 300 mg 12-25 ,Deb capsule capsule dilTIAZem dilTIAZem No [place] Unknown Unknown 120 mg 120 mg 06-20 ,Abiel tablet tablet Brandon gabapentin gabapentin 2018- No [place] Unknown Unknown 300 mg 300 mg 06-20 ,Abiel capsule capsule Brandon lisinopril lisinopril No [place] Unknown Unknown 20 mg 20 mg 06-20 ,Abiel tablet tablet Brandon multivitami multivitami No [place] Unknown Unknown n capsule n capsule 06-20 ,Abiel Taylro clopidogrel clopidogrel No [place] Unknown Unknown 75 mg 75 mg 06-20 ,Abiel tablet tablet Brandon gabapentin gabapentin No [place] Unknown Unknown 100 mg 100 mg 06-20 ,Abiel capsule capsule Brandon glimepiride glimepiride No [place] Unknown Unknown 4 mg tablet 4 mg tablet 06-20 Abiel [facility] carvedilol carvedilol 2017- No [place] Unknown Unknown 6.25 mg 6.25 mg 06-20 ,Abiel tablet tablet Brandon Saphris Saphris 2018- No Kandy Unknown Unknown (black (black 06-20 ,Willian golden) 10 [place]) 10 mg mg sublingual sublingual tablet tablet pantoprazol pantoprazol No [place] Unknown Unknown e 40 mg e 40 mg 06-20 ,Abiel tablet,lauryn tablet,lauryn Brandon yed release yed release raNITIdine raNITIdine No [place] Unknown Unknown 300 mg 300 mg 06-20 ,Abiel tablet tablet Brandon Calcium 500 Calcium 500 2017- No [place] Unknown Unknown With D 500 With D 500 06-20 Abiel U[facility] (1,250 mg (1,250 Brandon mg)-400 mg)-400 unit tablet unit tablet Vitamin D3 Vitamin D3 2018- No [place] Unknown Unknown 1,000 unit 1,000 unit 01-01 ,Abiel capsule capsule Brandon atorvastati atorvastati 2017- No [place] Unknown Unknown n 80 mg n 80 mg 10-31 ,Abiel tablet tablet Brandon atorvastajudit atorvastati 2017-10 No [place] Unknown Unknown n 80 mg n 80 [...] 24 hour hour carvedilol carvedilol 2017-10- No [place] Unknown Unknown 6.25 mg 6.25 mg 07-02 ,Abiel tablet tablet Brandon Saphris Saphris 2018- No Kandy Unknown Unknown (black (black 06-27- ,Willian golden) 10 golden) 10 mg mg sublingual sublingual tablet tablet Calcium 500 Calcium 500 2018- No [place] Unknown Unknown With D 500 With D 500 06-27 Abiel UPTON (1,250 mg (1,250 Brandon mg)-400 mg)-400 unit tablet unit tablet Topamax 50 Topamax 50 2017-10- No Kaitlynn Unknown Unknown mg tablet mg tablet 10-09 Geraldo UPTON Depakote ER Depakote ER No Kandy Unknown Unknown 500 mg 500 mg 10-23 ,Willian tablet,exte tablet,exte nded nded release release diphenhydrA diphenhydrA No [place] Unknown Unknown MINE 25 mg MINE 25 mg - ,Abiel capsule capsule Brandon lithium lithium 2018- No Kandy Unknown Unknown carbonate carbonate 11-29 ,Willian 300 mg 300 mg tablet tablet Colace 100 Colace 100 2017-10- No [place] Unknown Unknown mg capsule mg capsule 01-01 Abiel U[facility] ipratropium ipratropium No [place] Unknown Unknown bromide bromide 02-19 ,Abiel 0.02 % 0.02 % Brandon solution solution for for inhalation inhalation albuterol albuterol No [place] Unknown Unknown sulfate 2.5 sulfate 2.5 - Abiel UPTON mg/3 mL mg/3 mL Brandon (0.083 %) (0.083 %) solution solution for for nebulizatio nebulizatio n n predniSONE predniSONE 2018- No [place] Unknown Unknown 20 mg 20 mg 12-28 ,Abiel tablet tablet Brandon benzonatate benzonatate No [place] Unknown Unknown 100 mg 100 mg 12-28 ,Abiel capsule capsule Brandon doxycycline doxycycline 2018- No [place] Unknown Unknown hyclate 100 hyclate 100 12-28 ,Abiel mg capsule mg capsule Brandon Rexulti 0.5 Rexulti 0.5 2018- No Kandy Unknown Unknown mg tablet mg tablet 01-15 Willian [facility] Rexulti 1 Rexulti 1 2018- No Kandy Unknown Unknown mg tablet mg tablet 01-22 Willain U[facility] LaMICtal 25 LaMICtal 2018- No Kandy [...] Unknown mg tablet mg tablet 05-31 ,Willian Lant Lantus 2018-10 Yes Pate Unknown Unknown Solostar Solostar 0-17 MD,Deb U-100 U-100 Insulin 100 Insulin 100 unit/mL (3 unit/mL (3 mL) mL) subcutaneou subcutaneou s pen s pen Topamax 50 Topamax 50 2018-10 Yes Kaitlynn Unknown Unknown mg tablet mg tablet 0-17 ,Geraldo Saphris 5 Saphris 5 2018-10 Yes Kandy Unknown Unknown mg mg 0-17 Willian [facility] sublingual sublingual tablet tablet Rexulti 2 Rexulti 2 2018- No Kandy Unknown Unknown mg tablet mg tablet 05-31 ,Willian Invokana Invokana No Pate Unknown Unknown 100 mg 100 mg 5- MD,Deb tablet tablet carvedilol carvedilol 2017-10 No [place] Unknown Unknown 6.25 mg 6.25 mg 0- [...] Unknown Unknown mg tablet mg tablet 10-27 iWllian U[facility]ON LaMICtal LaMICtal 2018-10 Yes Kandy Unknown Unknown mg tablet mg tablet 11-25 Willian [facility] Vital Signs Vital Name Observation Time Observation Value Comments SYSTOLIC mm[Hg] 2019-10-08 18:09:45 132 mm[Hg] mm[Hg] Method: Sit SYSTOLIC mm[Hg] 2019-06-13 18:07:48 142 mm[Hg] mm[Hg] Method: Stand DIASTOLIC mm[Hg] 2019-10-08 18:09:45 78 mm[Hg] mm[Hg] Method: Sit DIASTOLIC mm[Hg] 2019-06-13 18:07:48 72 mm[Hg] mm[Hg] Method: Stand PULSE 2019-10-08 18:09:45 80 /min /min RESP RATE 2019-10-08 18:09:45 16 /min /min TEMP 2019-10-08 18:09:45 97.4 [degF] Procedures This patient has no known procedures. Results This patient has no known results.
--- OUTSIDE RECORDS SUMMARY | 2019-12-01 11:53 | XMS REPORT ---
:1960 Author Organization [facility] Care Team Providers Name Role Phone Unavailable [...] d 06-20 10:30:00 (Andrés) 08:20: Walker 00 [id number] Cardio edema Cardiovasc Resolve 2018-08-16 Becca ular d 06-20 10:00:00 (Adnrés) 08:20: Walker 00 [id number] Respiratory dyspnea Respirator Resolve 2019-02-05 Becca present y d 06-20 10:30:00 (Andrés) 08:20: Walker 00 [id number] Respiratory lung sounds Respirator Resolve 2019-02-05 Becca deficit y d 06-20 10:30:00 (Andrés) 08:20: Walker 00 [id number] Endo/Gage anti-coagul Endo/Gage Resolve 2018-07-31 Becca ation d 06-20 11:58:00 (Andrés) therapy 08:20: Walker [id number] Integument skin Integument Active Becca integrity 06-20 (Andrés) risk 08:20: Walker [id number] Elimination urinary Eliminatio Resolve 2018-08-16 Becca incontinenc n d 06-20 10:00:00 (Andrés) e 08:20: Walker [id number] Neuro confusion Neuro/Emot Active Becca present ion 06-20 (Andrés) 08:20: Walker [id number] Neuro anxiety Neuro/Emot Active Becca present ion 06-20 (Andrés) 08:20: Walker [id number] Neuro impaired Neuro/Emot Active Becca decision-ma ion 06-20 (Andrés) caty 08:20: Walker [id number] Activity ADL Activity Active Becca assistance 06-20 (Andrés) required 08:20: Walker [id number] Safety cannot be Safety Active Becca left alone 06-20 (Andrés) 08:20: Walker [id number] Safety fall risk Safety Resolve 2019-08-13 Becca factor d 06-20 10:55:00 (Andrés) present 08:20: Walker [id number] Safety risk for Safety Resolve 2019-08-13 Becca hospitaliza d 06-20 10:55:00 (Andrés) tion 08:20: Walker [id number] Medication oral med Meds Resolve 2018-07-31 Becca assistance d 06-20 11:58:00 (Andrés) required 08:20: Walker [id number] Medication potential Meds Resolve 2018-07-31 Becca clinically d 06-20 11:58:00 (Andrés) significant 08:20: Walker medication 00 [id number] issue Musculoskel requires Musculoske Resolve 2019-06-13 Becca etal human letal d 06-20 13:00:00 (Andrés) assist to 08:20: Walker leave home 00 [id number] Musculoskel transfer Musculoske Resolve 2019-06-13 Becca etal assistance letal d 06-20 13:00:00 [place] required 08:20: [id number] Respiratory oxygen Respirator Resolve 2019-02-05 Loreta treatments y d 06-26 10:30:00 [place] in home 10:28: h [id number] 00 Safety can be left Safety Active Loreta alone for 06-26 [place] only short 10:28: h [id number] periods 00 Elimination urinary Eliminatio Resolve 2017-102018-08-16 Loreta frequency n d 10:00:00 [place] 11:58: h [id number] 00 Neuro knowledge/s Neuro/Emot Active 2017-10 Loreta kill ion 0 [place] deficit: cg 11:58: h [id number] 00 Endo/Gage anti-coagul Endo/Gage Resolve 2017-102019-01-29 Loreta ation d 1-15 12:45:00 [place] therapy 10:00: h [id number] 00 Neuro depressive Neuro/Emot Active 2017-10 Loreta feelings ion 1-15 [place] present 10:00: h [id number] 00 Medication oral med Meds Resolve 2017-102019-02-05 Loreta assistance d 1-15 10:30:00 [place] required 10:00: h [id number] 00 Medication injectable Meds Resolve 2017-102019-02-05 Loreta med d -15 10:30:00 [facility] assistance 10:00: h [id number] required 00 Medication potential Meds Active 2017-10 Loreta clinically -15 [place] significant 10:00: h [id number] medication 00 issue Endo/Gage knowledge/s Endo/Gage Resolve [...] treatment y 12-25 Emily in home 09:30: [id number] Endo/Gage glucose Endo/Gage Resolve 2019-01-29 Cherrise tolerance d 12-25 12:45:00 Emily problem 09:30: [id number] Nutrition knowledge/s Nutrition Resolve 2019-01-29 Cherrise kill d 12-25 12:45:00 Braggs deficit: pt 09:30: [id number] Elimination urinary Eliminatio Resolve 2019-01-15 Cherrise incontinenc n d 12-25 11:25:00 Emily e 09:30: [id number] 00 Elimination urinary Eliminatio Resolve 2019-01-15 Cherrise urgency n d 12-25 11:25:00 [place] 09:30: [id number] 00 Endo/Gage insulin Endo/Gage Resolve 2019-02-05 Cherrise admn d 02 10:30:00 [place] dependence 09:55: [id number] 00 Endo/Gage glucose Endo/Gage Resolve 2019-02-05 Cherrise testing d 01-01 10:30:00 [place] dependence 09:55: [id number] 00 Elimination urinary Eliminatio Resolve 2019-01-15 Cherrise frequency n d 4 11:25:00 [place] 09:55: [id number] 00 Elimination recurring Eliminatio Resolve 2019-02-05 Cherrise UTI n d 01-01 10:30:00 Emily 09:55: [id number] 00 Respiratory knowledge/s Respirator Resolve 2019-01-08 Mralene kill y d -09 15:40:00 Carrier RN [...] n 0-08 Nila e 09:15: [employer] 00 [id number] Elimination constipatio Eliminatio Active 2018-10 Marlene n [...] Tiffani n 10-27 Nila 09:00: [employer] 00 [id number] Safety risk for Safety Active 2018-10 Tiffani hospitaliza 10-27 Nila tion 09:00: [employer] 00 [id number] Safety knowledge/s Safety Active 2018-10 Marlene kill [...] mg capsule capsule carvedilol carvedilol 2017- No [place] Unknown Unknown 6.25 mg 6.25 mg 06-20 Abiel UPTON tablet tablet Brandon Vitamin D3 Vitamin D3 No Crowe 2000 Unknown 50 mcg 50 mcg Sarah UPTON units (2,000 (2,000 unit) unit) capsule capsule dilTIAZem dilTIAZem 2017- No Irving Unknown Unknown 120 mg 120 mg 06-20 Abiel UPTON tablet tablet Brandon Depakote Depakote No Crowe 1-2 Unknown 500 mg 500 mg Sarah UPTON tablet,lauryn tablet,lauryn yed release yed release Colace 100 Colace 100 2017- No Irving Unknown Unknown mg capsule mg capsule 06-20 Abiel UPTON furosemide furosemide No Crowe 20 mg Unknown 20 mg 20 mg Sarah UPTON tablet tablet gabapentin gabapentin 2017- No Irving Unknown Unknown 300 mg 300 mg 06-20 Abiel UPTON capsule capsule Brandon glimepiride glimepiride No Crowe 4 mg Unknown 4 mg tablet 4 mg tablet Sarah UPTON liraglutide liraglutide No Crowe 1 Unknown 0.6 mg/0.1 0.6 mg/0.1 Sarah UPTON injecti mL (18 mg/3 mL (18 mg/3 on mL) mL) subcutaneou subcutaneou s pen s pen injector injector lisinopril lisinopril 2017- No Irving Unknown Unknown 20 mg 20 mg 06-20 Abiel UPTON tablet tablet Brandon Oyster Oyster No Crowe 500 mg Unknown Shell Shell Sarah UPTON Calcium 500 Calcium 500 500 mg 500 mg calcium calcium (1,250 mg) (1,250 mg) tablet tablet multivitami multivitami 2017- No Irving Unknown Unknown n capsule n capsule 06-20 [...] Sarah UPTON capsule capsule oxygen oxygen No Irving Unknown Unknown 06-20 Abiel UPTON clopidogrel clopidogrel 2017- No Irving Unknown Unknown 75 mg 75 mg 06-20 Abiel UPTON tablet tablet Brandon desvenlafax desvenlafax 2017- No [place] Unknown Unknown ine ine 06-20 ,Abiel succinate succinate Brandon ER 100 mg ER 100 mg tablet,exte tablet,exte nded nded release 24 release 24 hr hr diphenhydrA diphenhydrA 2017- No Irving Unknown Unknown MINE 25 mg MINE 25 mg 06-20 Abiel UPTON capsule capsule Brandon Depakote ER Depakote ER 2017- No Irving Unknown Unknown 500 mg 500 mg 06-20 Abiel UPTON tablet,exte tablet,exte Brandon nded nded release release famotidine famotidine 2017- No Irving Unknown Unknown 40 mg 40 mg 06-20 Abiel UPTON tablet tablet Brandon gabapentin gabapentin 2017- No [place] Unknown Unknown 100 mg 100 mg 06-20 Abiel UPTON capsule capsule Brandon glimepiride glimepiride 2017- No [place] Unknown Unknown 4 mg tablet 4 mg tablet 06-20 Abiel UPTON Nystop Nystop No Irving Unknown Unknown 100,000 100,000 06-20 Abiel UPTON unit/gram unit/gram Brandon topical topical powder powder atorvastati atorvastati 2017- No Irving Unknown Unknown n 80 mg n 80 mg 06-20 Abiel UPTON tablet tablet Brandon carvedilol carvedilol 2017-10- No [place] Unknown Unknown 6.25 mg 6.25 mg 07-02 ,Abiel tablet tablet Brandon Colace 100 Colace 100 2017-10- No Irving Unknown Unknown mg capsule mg capsule 07-02 Abiel UPTON diphenhydrA diphenhydrA 2017-10- No Irving Unknown Unknown MINE 25 mg MINE 25 mg 12-14 ,Abiel capsule capsule Brandon Depakote ER Depakote ER 2017-10- No Irving Unknown Unknown 500 mg 500 mg 09-27 ,Abiel tablet,exte tablet,exte Brandon nded nded release release Topamax 50 Topamax 50 2017- Kandy Unknown Unknown mg tablet mg tablet 06-27 ,Willian Saphris Saphris 2017- No Kandy Unknown Unknown (black (black 06-27 ,Willian golden) 10 [place]) 10 mg mg sublingual sublingual tablet tablet pantoprazol pantoprazol 2017- No Irving Unknown Unknown e 40 mg e 40 mg 06-27 ,Abiel tablet,lauryn tablet,lauryn Brandon yed release yed release raNITIdine raNITIdine 2017- No Irving Unknown Unknown 300 mg 300 mg 06-27 Abiel UPTON tablet tablet Brandon Calcium 500 Calcium 500 2017- No Irving Unknown Unknown With D 500 With D 500 06-27 Abiel UPTON mg (1,250 mg (1,250 Brandon mg)-400 mg)-400 unit tablet unit tablet Vitamin D3 Vitamin D3 2018- No Irving Unknown Unknown 400 unit 400 unit 06-27 Abiel UPTON capsule capsule Brandon Victoza Victoza No Irving Unknown Unknown 2-Jeison 0.6 2-Jeison 0.6 06-27 Abiel UPTON mg/0.1 mL mg/0.1 mL Brandon (18 mg/3 (18 mg/3 mL) mL) subcutaneou subcutaneou s pen s pen injector injector atorvastati atorvastati 2017-10- No Irving Unknown Unknown n 80 mg n 80 [...] tablet 10-09 ,Geraldo doxycycline doxycycline 2017-10- No Irving Unknown Unknown monohydrate monohydrate 10-15 ,Abiel 100 mg 100 mg Brandon capsule capsule lithium lithium 2017-10- No Kandy Unknown Unknown carbonate carbonate 11-28 ,Willian 300 mg 300 mg tablet tablet Depakote ER Depakote ER 2017-10- No Kandy Unknown Unknown 500 mg 500 mg 11-28 ,Willian tablet,exte tablet,exte nded nded release release sennosides sennosides 2017-10 No Irving Unknown Unknown 8.6 8.6 11-28 ,Abiel mg-docusate [...] mg tablet tablet diphenhydrA diphenhydrA 2018- No Irving Unknown Unknown MINE 25 mg MINE 25 mg 12-14 ,Abiel capsule capsule Brandon clindamycin clindamycin 2018- No Pate Unknown Unknown HCl 300 mg HCl 300 mg 12-25 ,Deb capsule capsule dilTIAZem dilTIAZem No Irving Unknown Unknown 120 mg 120 mg 06-20 ,Abiel tablet tablet Brandon gabapentin gabapentin 2018- No Irving Unknown Unknown 300 mg 300 mg 06-20 ,Abiel capsule capsule Brandon lisinopril lisinopril No Irving Unknown Unknown 20 mg 20 mg 06-20 ,Abiel tablet tablet Brandon multivitami multivitami No Irving Unknown Unknown n capsule n capsule 06-20 ,Abiel Taylor clopidogrel clopidogrel No Irving Unknown Unknown 75 mg 75 mg 06-20 ,Abiel tablet tablet Brandon gabapentin gabapentin No Irving Unknown Unknown 100 mg 100 mg 06-20 ,Abiel capsule capsule Brandon glimepiride glimepiride No Irving Unknown Unknown 4 mg tablet 4 mg tablet 06-20 Abiel UPTON carvedilol carvedilol 2017- No [place] Unknown Unknown 6.25 mg 6.25 mg 06-20 ,Abiel tablet tablet Brandon Saphris Saphris 2018- No Kandy Unknown Unknown (black (black 06-20 ,Willian golden) 10 [place]) 10 mg mg sublingual sublingual tablet tablet pantoprazol pantoprazol No Irving Unknown Unknown e 40 mg e 40 mg 06-20 ,Abiel tablet,lauryn tablet,lauryn Brandon yed release yed release raNITIdine raNITIdine No Irving Unknown Unknown 300 mg 300 mg 06-20 ,Abiel tablet tablet Brandon Calcium 500 Calcium 500 2017- No Irving Unknown Unknown With D 500 With D 500 06-20 Abiel UPTON (1,250 mg (1,250 Brandon mg)-400 mg)-400 unit tablet unit tablet Vitamin D3 Vitamin D3 2018- No Irving Unknown Unknown 1,000 unit 1,000 unit 01-01 ,Abiel capsule capsule Brandon atorvastati atorvastati 2017- No Irving Unknown Unknown n 80 mg n 80 mg 10-31 ,Abiel tablet tablet Brandon atorvastajudit atorvastati 2017-10 No Irving Unknown Unknown n 80 mg n 80 [...] 24 hour hour carvedilol carvedilol 2017-10- No Irving Unknown Unknown 6.25 mg 6.25 mg 07-02 ,Abiel tablet tablet Brandon Saphris Saphris 2018- No Kandy Unknown Unknown (black (black 06-27- ,Willian golden) 10 golden) 10 mg mg sublingual sublingual tablet tablet Calcium 500 Calcium 500 2018- No Irving Unknown Unknown With D 500 With D 500 06-27 Abiel UPTON (1,250 mg (1,250 Brandon mg)-400 mg)-400 unit tablet unit tablet Topamax 50 Topamax 50 2017-10- No Kaitlynn Unknown Unknown mg tablet mg tablet 10-09 Geraldo UPTON Depakote ER Depakote ER No Kandy Unknown Unknown 500 mg 500 mg 10-23 ,Willian tablet,exte tablet,exte nded nded release release diphenhydrA diphenhydrA No Irving Unknown Unknown MINE 25 mg MINE 25 mg - ,Abiel capsule capsule Brandon lithium lithium 2018- No Kandy Unknown Unknown carbonate carbonate 11-29 ,Willian 300 mg 300 mg tablet tablet Colace 100 Colace 100 2017-10- No Irving Unknown Unknown mg capsule mg capsule 01-01 Abiel UPTON ipratropium ipratropium No [place] Unknown Unknown bromide bromide 02-19 ,Abiel 0.02 % 0.02 % Brandon solution solution for for inhalation inhalation albuterol albuterol No Irving Unknown Unknown sulfate 2.5 sulfate 2.5 - Abiel UPTON mg/3 mL mg/3 mL Brandon (0.083 %) (0.083 %) solution solution for for nebulizatio nebulizatio n n predniSONE predniSONE 2018- No [place] Unknown Unknown 20 mg 20 mg 12-28 ,Abiel tablet tablet Brandon benzonatate benzonatate No [place] Unknown Unknown 100 mg 100 mg 12-28 ,Abiel capsule capsule Brandon doxycycline doxycycline 2018- No Irving Unknown Unknown hyclate 100 hyclate 100 12-28 [...] MD,Deb tablet tablet carvedilol carvedilol 2017-10 No Irving Unknown Unknown 6.25 mg 6.25 mg 0- [...]
--- OUTSIDE RECORDS SUMMARY | 2019-12-01 11:53 | XMS REPORT | Continuity of Care Document ---
:1960 External Reference #:[id number] Author Name Jessica Calderón MD (transmitted by agent of provider Marixa Calles) Address [address], [address] [place] [address] Care Team Providers Name Role Phone Mehran Combs MD - Internal Care Team Information Health And Wellness Coach Medicine Alex Vo MD - Endocrinology, Care Team Information Health And Wellness Coach Diabetes & Metabolism Vic Maddox NP - Family Care Team Information Health And Wellness Coach [phone] Boris Shaw MD - Care Team Information Health And Wellness Coach [phone] Otolaryngology Ashwin Michael MD - Obstetrics & Care Team Information Health And Wellness Coach Gynecology Deb Pate M.D. - Family Medicine Care Team Information Health And Wellness Coach [phone] Problems Active Problems Provider Date [place] disease [...] PFTs inconclusive Benign neoplasm of adrenal gland nAg Zelaya M.D.,FACP Onset: 2013 Morbid obesity Jessica [...] Former Cigarette Smoker Unknown Smoking Status Reviewed: 10/23/19 Former Cigarette Smoker ETOH Use 02/09/2018 Denies [...] Medications SIG Qnty Indications Ordering Date Provider Easy Touch Pen 2 times daily 200units Monique Juarez MD 10/16/2019 [place] 32GX1/4" 32G X 6 mm [facility] Freestyle Lite Test use as directed, 100units E11.65 Sarai Rush 03/2019 Strip test twice a MD day. Aimovig inject sq once a 1ml Geraldo Calderón, 08/07/2019 70mg/ml shaquille [place] Solution Auto-Inject Transport Chair use daily for 1units J44.9 Deb Pate MD 07/23/2019 [facility] transport I67.5 M62.81 Lantus Solostar 20 u sc [...] once 90tabs Monique Juarez MD 04/11/2019 25mg daily as needed Tablets Premarin use twice weekly 90gm N95.2 Deb Pate MD 04/10/2019 0.625mg/GM Cream as directed Atorvastatin Calcium 1 by mouth every 90tabs Deb Pate MD 02/27/2019 80mg day Tablets Invokana take one tablet by 90tabs Aixa Shine, 02/18/2019 100mg Tablets mouth once daily M.D. Fluconazole 1 tab by mouth x 2tabs E11.9 Monique Juarez MD 02/07/2019 150mg Tablets 1, may repeat after 2 days if not better (for vaginal yeast infection) Benzonatate take one tablet by 90caps J01.90 Monique Juarez MD 12/28/2018 100mg mouth up to 3 Capsules times a day for cough. Vitamin D-1000 Maximum take one 90tabs Aixa Shine, 12/26/2018 Strength capsule/tablet M.D. 1000Unit Tablets daily by mouth Nystatin apply to groin 1units B35.6 Deb Pate MD 10/10/2018 Powder 3-4x/day Topiramate 1 tab by mouth at 90tabs Raf ScottEllyn [place], 08/08/2018 50mg Tablets night M.Ethan Erikasilvia take 2 tabs at 120caps Abigail Cotton, 06/28/2018 25mg Capsules bedtime as needed M.Ethan Commode Bedside large wide commode 1units I25.10 [...] Shine, 10/09/2017 40mg Tablets day M.D. DR Hauser take one tablet by 90tabs E11.21 Aixa Shine, 12/09/2015 4mg Tablets mouth once daily M.DEllyn Carvedilol take one tablet by 180tabs I10 Aixa Shine, 12/08/2015 6.25mg mouth two times M.D. Tablets daily Oxygen please use O2 at [facility] 12/08/2015 [facility] Omer Zelaya,FACP Victoza inject 1.8 mg under 9ml E11.21 Aixa Shine, 06/12/2015 18mg/3ML the skin daily M.DEllyn Solution Pen-Inject after dinner Diltiazem CD take one capsule by 90caps I10 Deb Pate MD 04/06/2015 120mg Caps mouth once daily ER 24HR Ranitidine HCL take 1 tablet by 90caps K31.1 Deb Pate MD 12/15/2014 300mg mouth at bedtime Capsules Freestyle Lite twice daily and as 100units Deb Pate, MD 08/14/2014 Lancets directed DX E11.9 [facility] Freestyle Lite Test test blood sugar up [...] Albuterol Sulfate 1 vial via 200units Ang [place]. 12/17/2012 nebulizer q4 as Omer Zelaya,FACP (2.5mg/3ML) 0.083% needed Nebulizer Latuda 1 by mouth every Unknown 60mg Tablets day in the am Gabapentin take one tablet by Unknown 600mg mouth at bed time Tablets Lamotrigine takes 75mg in am Unknown 25mg Tablets Ondansetron HCL Take One Tablet By [...] Tablets Sub Multivitamins 1 by mouth every 90caps Z01.818 Aixa Shine, Capsules day M.D. History Medications Doxycycline Hyclate 1 by mouth [...] Inj, Regadenoson, 0.1 MG Yuriy Jose, DO [facility] 05/07/2015 Injection Technetium TC 99M Perez Rangel M.D., 05/07/2015 Tetrofosmin, Per Unit Dose FACC, FASNC Up To 40 Millicuries Injection Technetium TC 99M Yuriy Jose, DO FAC 05/07/2015 Tetrofosmin, Per Unit Dose Up To 40 Millicuries Injection PPD Vic Maddox, LONG TERM CARE PHLEBOTOMIST 11/12/2014 Injection PPD Nurse Visit [place] 11/04/2013 Injection PPD Annette Sin, 10/31/2012 Injection N.P. Immunizations CPT Code Status Date Vaccine Lot # [id number] Given 06/14/2018 Influenza Virus Vaccine, Quadrivalent, Split, Preservative Free 00820 Given 06/05/2017 Influenza Virus Vaccine, Quadrivalent, Split, Preservative Free [id number] Given 07/21/2016 Fluzone Vaccine [id number] Given 06/22/2016 Influenza Virus Vaccine, Quadrivalent, Split, [id number] Preservative Free 23398 Given 09/02/2015 Hepatitis B Vaccine Adult Dosage [id number] 19811 Given 09/02/2015 Pneumonia Vaccine [id number] 71856 Given 06/23/2015 Influenza Virus Vaccine, Quadrivalent, Split, [id number] Preservative Free 62168 Given 11/12/2014 Tdap - Tetanus/Diptheria/Acellular Pertussis [id number] 87606 Given 08/12/2014 Pneumococcal Conjugate Vaccine 13 Valent For [id number] Intramuscular Use 98249 Given 07/05/2014 Influenza Virus Vaccine, Quadrivalent, Split, [id number] Preservative Free 08035 Given 01/17/2014 Hepatitis B Vaccine Adult Dosage [id number] 86578 Given 05/10/2013 Hepatitis B Vaccine Adult Dosage [id number] Vital Signs Date Vital Result Comment 10/23/2019 10:38am Height 67 inches 5'7" Weight 319.00 lb Heart Rate 82 /min BP Systolic Sitting 124 mmHg BP Diastolic Sitting 80 mmHg O2 % BldC Oximetry 98 % BMI (Body Mass Index) 50.0 kg/m2 10/17/2019 10:36am Height 67 inches 5'7" Weight 314.00 lb Heart Rate 82 /min BP Systolic Sitting 128 mmHg BP Diastolic Sitting 62 mmHg Body Temperature 97.8 F O2 % BldC Oximetry 94 % on 2L O2 BMI (Body Mass Index) 49.2 kg/m2 Results Test Acquired Facility Test Result H/L Range Note Date Laboratory test 10/17/2019 [facility] Hemoglobin A1c 7.8 High 5-7 finding Laboratory test 09/11/2019 [facility] Troponin-I 0.00 ng/mL < 0.[address] (TnI) [place] [address] [phone] Laboratory test 09/11/2019 [facility] Partial 32.4 Normal 26.0 -38.[address] [place] [address] PTT [phone] B-Type Natriuretic Peptide BNP 20 pg/mL <=100 Magnesium 1.8 mg/dL Low 1.9-2.7 Creatine Kinase(CK) 47 U/L Normal 10-223 CKMB 09/11/2019 [facility] CKMB 1.5 ng/mL Normal 0.6-6.[address] ng/[place] [address] [phone] Laboratory test 09/11/2019 [facility] TSH 1.82 Normal 0.34- 5.[address] (Thyroid mcIU/[place] [address] Stim Horm) [phone] Urinalysis 09/11/2019 [facility] Urine Yellow Profile [address] [place] [address] [phone] Urine Appearance Cloudy Urine Specific [place] 1.025 Normal 1.010-1.030 Urine pH 5.0 Normal 5-9 Urine Urobilinogen Negative Negative Urine Ketones Trace Abnormal Negative Urine Protein Negative Negative Urine Leukocytes Negative Negative Urine Blood Negative Negative Urine Nitrite Negative Negative Urine Bilirubin Negative Negative Urine Glucose 3+(>=500 mg/dL) Abnormal Negative Inr/Protime 09/11/2019 [facility] Inr 1.10 High 0.82-1.[address] [place] [address] [phone] Comp Metabolic 09/11/2019 [facility] Sodium 139 mmol/L Normal 135-[address] [place] [address] [phone] Potassium 4.4 mmol/L Normal 3.5-5.0 Chloride 105 [...] Egfr 88.5 >60 3 Laboratory test 09/11/2019 [facility] Troponin-I 0.00 <0.03 4 finding 101 (TnI) ng/[place] [address] [phone] CBC Auto Diff 09/11/2019 [facility] White Blood 7.8 Normal 3.[address] -[address] Count 10^3/[place] [address] [phone] Red Blood Count 5.16 10^6/uL High 3.70-4.87 [...] Blood Cells % 0.2 Laboratory test 07/09/2019 [facility] Influenza A/B Rapid Negative A-B finding Lipid Profile 06/26/2019 [facility] Triglycerides 282 mg/dL 5, 6 (Trig/Chol/HDL) [address] [place] [address] [phone] Cholesterol 162 mg/dL 7 HDL Cholesterol 42.0 mg/dL 8 LDL Cholesterol 64 mg/dL 9 Laboratory test 06/26/2019 [facility] Hemoglobin A1c 7.9 % High 4.0-5.[address] (Glyco HGB) [place] [address] [phone] 1 Troponin-I testing on Plasma Separator Tubes (PST) has a known false positive rate of 0.20-0.40%. All positive troponins reflex immediately to secondary confirmatory testing. Using the Promuc DxI 800 Access Immunoassay systems, the 99th [...] immediately to secondary confirmatory testing. Using the Promuc DxI 800 Access Immunoassay systems, the 99th [...] in selective patients <6.0%. Please refer to [place] [employer] diabetic care guidelines for further information. Procedures Date Code Description Status 09/12/2019 05907 Treadmill Interp/Report Only Completed 09/12/2019 20321 Stress Test Supervsn W/Out I/R Completed 09/12/2019 19175 EKG, Interpretation Only Completed 09/03/2019 [id number] Diabetic Foot Exam Completed 08/26/2019 [id number] Diabetic Foot Exam Completed 04/29/2019 [id number] Mammogram Completed 09/27/2018 [id number] Diabetic Retinal Eye Exam Completed 02/07/2018 [id number] Diabetic Foot Exam Completed 03/14/2017 [id number] Mammogram Completed 11/16/2016 [id number] Diabetic Retinal Eye Exam Completed 09/18/2015 [id number] Diabetic Retinal Eye Exam Completed 11/05/2014 [id number] Mammogram Completed 07/03/2014 [id number] Diabetic Retinal Eye Exam Completed 12/09/2013 [id number] Colonoscopy Completed 11/04/2013 [id number] Mammogram Completed 05/03/2013 [id number] Diabetic Retinal Eye Exam Completed Medical Devices Description No Information Available Encounters Type Date Location Provider Dx Diagnosis Office Visit 10/17/2019 [facility] Internal Monique Juarez MD E11.65 Type 2 diabetes 10:40a Medicine - [facility] mellitus with hyperglycemia I10 Essential (primary) hypertension K59.00 Constipation, unspecified E11.40 Type 2 diabetes mellitus with diabetic neuropathy, unsp Z68.43 Body mass index (BMI) 50.0-59.9, adult Office Visit 09/16/2019 8:40a [facility] Internal Monique Juarez MD R07.89 Other chest Medicine - [facility] pain R05 Cough E11.65 Type 2 diabetes mellitus with hyperglycemia I10 Essential (primary) hypertension Z86.73 Prsnl hx of TIA (TIA), and cereb infrc w/o resid deficits Office Visit 09/13/2019 [facility] Yana Loya, R07.9 Chest pain, 10:43a Assoc,susan Tello unspecified Hospitalists E11.9 Type 2 diabetes mellitus without complications I10 Essential (primary) hypertension E66.01 Morbid (severe) obesity due to excess calories Z68.43 Body mass index (BMI) 50.0-59.9, adult Office Visit 09/11/2019 10:42a [facility] Yana Loya, R07.89 Other chest Assoc,susan MJose A pain Hospitalists R53.1 Weakness G47.33 Obstructive sleep apnea (adult) (pediatric) J96.11 Chronic respiratory failure with hypoxia E11.9 Type 2 diabetes mellitus without complications Office Visit 08/07/2019 [facility] Geraldo Calderón, I67.5 [place] 9:15a Clinic MD disease G43.019 Migraine w/o aura, intractable, without status migrainosus G44.229 Chronic tension-type headache, not intractable Office Visit 07/12/2019 9:40a [facility] Internal Deb Pate E11.65 Type 2 diabetes Medicine - MD mellitus with [facility] hyperglycemia I10 Essential (primary) hypertension J06.9 Acute upper respiratory infection, unspecified Office Visit 07/09/2019 3:20p [facility] Internal Deb Pate J06.9 Acute upper Medicine - [facility] respiratory infection, unspecified Office Visit 05/24/2019 1:15p Jonathan Gonzalez, M25.551 Pain in right hip Orthopedics at [facility] M16.11 Unilateral primary osteoarthritis, right hip M70.61 Trochanteric bursitis, right hip Office Visit 05/03/2019 9:15a [facility] Jessica J44.9 [facility] Stephane obstructive [employer] [facility] pulmonary disease, unspecified G47.33 Obstructive sleep apnea (adult) (pediatric) Assessments Date Code Description Provider 10/23/2019 J44.9 Chronic obstructive pulmonary Jessica Calderón MD disease, unspecified 10/23/2019 G47.33 Obstructive sleep apnea (adult) Jessica Calderón MD (pediatric) 10/23/2019 R09.02 Hypoxemia Jessica Calderón MD 10/17/2019 [...] electrocardiogram [ECG] Amos Beckman MD, FACC, [EKG] [facility] 09/12/2019 R07.9 Chest pain, unspecified Amos Beckman MD, FACC, [facility] 09/12/2019 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 disease, unspecified 09/12/2019 E11.9 Type 2 diabetes mellitus without Yana Loya M.D. complications 09/12/2019 R53.1 Weakness Yana Loya M.D. 09/11/2019 R07.89 Other chest pain Yana Loya M.D. 09/11/2019 R53.1 Weakness Yana Loya M.D. 09/11/2019 G47.33 Obstructive sleep apnea (adult) Yana Loya M.D. (pediatric) 09/11/2019 J96.11 Chronic respiratory failure with Yana Loya M.D. hypoxia 09/11/2019 E11.9 Type 2 diabetes [...] sleep apnea (adult) Jessica Calderón MD (pediatric) Plan of Treatment Future Appointment(s):04/17/2020 11:30 am - Marlene Amanda NP at [facility]01/16/2020 10:40 am - Monique Juarez MD at [facility] Internal Medicine - [facility]12/12/2019 10:00 am - Geraldo Calderón MD at [facility] [id number]/23/2019 - Jessica Calderón MDJ44.9 Chronic obstructive pulmonary disease, unspecifiedFollow up:6 months , [place] kdpvjI87.33 Obstructive sleep apnea (adult) (pediatric)R09.02 Hypoxemia Functional Status Description No Information Available Mental Status Description No Information Available Referrals Description No Information Available
--- OUTSIDE RECORDS SUMMARY | 2019-12-01 11:53 | XMS REPORT ---
:1960 Author Organization [facility] Care Team Providers Name Role Phone Unavailable [...] d 06-20 10:30:00 (Andrés) 08:20: Walker 00 [id number] Cardio edema Cardiovasc Resolve 2018-08-16 Becca ular d 06-20 10:00:00 (Andrés) 08:20: Walker 00 [id number] Respiratory dyspnea Respirator Resolve 2019-02-05 Becca present y d 06-20 10:30:00 (Andrés) 08:20: Walker 00 [id number] Respiratory lung sounds Respirator Resolve 2019-02-05 Becca deficit y d 06-20 10:30:00 (Andrés) 08:20: Walker 00 [id number] Endo/Gage anti-coagul Endo/Gage Resolve 2018-07-31 Becca ation d 06-20 11:58:00 (Andrés) therapy 08:20: Walker [id number] Integument skin Integument Active Becca integrity 06-20 (Andrés) risk 08:20: Walker [id number] Elimination urinary Eliminatio Resolve 2018-08-16 Becca incontinenc n d 06-20 10:00:00 (Andrés) e 08:20: Walker [id number] Neuro confusion Neuro/Emot Active Becca present ion 06-20 (Andrés) 08:20: Walker [id number] Neuro anxiety Neuro/Emot Active Becca present ion 06-20 (Andrés) 08:20: Walker [id number] Neuro impaired Neuro/Emot Active Becca decision-ma ion 06-20 (Andrés) caty 08:20: Walker [id number] Activity ADL Activity Active Becca assistance 06-20 (Andrés) required 08:20: Walker [id number] Safety cannot be Safety Active Bceca left alone 06-20 (Andrés) 08:20: Walker [id number] Safety fall risk Safety Resolve 2019-08-13 Becca factor d 06-20 10:55:00 (Andrés) present 08:20: Walker [id number] Safety risk for Safety Resolve 2019-08-13 Becca hospitaliza d 06-20 10:55:00 (Andrés) tion 08:20: Walker [id number] Medication oral med Meds Resolve 2018-07-31 Becca assistance d 06-20 11:58:00 (Andrés) required 08:20: Walker [id number] Medication potential Meds Resolve 2018-07-31 Becca clinically d 06-20 11:58:00 (Andrés) significant 08:20: Walker medication 00 [id number] issue Musculoskel requires Musculoske Resolve 2019-06-13 Becca etal human letal d 06-20 13:00:00 (Andrés) assist to 08:20: Walker leave home 00 [id number] Musculoskel transfer Musculoske Resolve 2019-06-13 Becca etal assistance letal d 06-20 13:00:00 [place] required 08:20: [id number] 00 Respiratory oxygen Respirator Resolve 2019-02-05 [place] treatments y d 06-26 10:30:00 [place] in home 10:28: h [id number] 00 Safety can be left Safety Active Loreta alone for 06-26 [place] only short 10:28: h [id number] periods 00 Elimination urinary Eliminatio Resolve 2017-102018-08-16 [place] frequency n d 10:00:00 [place] 11:58: h [id number] 00 Neuro knowledge/s Neuro/Emot Active 2017-10 [place] kill ion 0 [place] deficit: cg 11:58: h [id number] 00 Endo/Gage anti-coagul Endo/Gage Resolve 2017-102019-01-29 [place] ation d 1-15 12:45:00 [place] therapy 10:00: h [id number] 00 Neuro depressive Neuro/Emot Active 2017-10 [place] feelings ion 1-15 [place] present 10:00: h [id number] 00 Medication oral med Meds Resolve 2017-102019-02-05 [place] assistance d 1-15 10:30:00 [place] required 10:00: h [id number] 00 Medication injectable Meds Resolve 2017-102019-02-05 [place] med d -15 10:30:00 [facility] assistance 10:00: h [id number] required 00 Medication potential Meds Active 2017-10 [place]oreta clinically -15 [place] significant 10:00: h [id number] medication 00 issue Endo/Gage knowledge/s Endo/Gage Resolve [...] treatment y 12-25 Emily in home 09:30: [id number] Endo/Gage glucose Endo/Gage Resolve 2019-01-29 Cherrise tolerance d 12-25 12:45:00 Emily problem 09:30: [id number] Nutrition knowledge/s Nutrition Resolve 2019-01-29 Cherrise kill d 12-25 12:45:00 [place] deficit: pt 09:30: [id number] 00 Elimination urinary Eliminatio Resolve 2019-01-15 [place] incontinenc n d 12-25 11:25:00 Emily e 09:30: [id number] 00 Elimination urinary Eliminatio Resolve 2019-01-15 Cherrise urgency n d 12-25 11:25:00 [place] 09:30: [id number] 00 Endo/Gage insulin Endo/Gage Resolve 2019-02-05 Cherrise admn d 02 10:30:00 [place] dependence 09:55: [id number] 00 Endo/Gage glucose Endo/Gage Resolve 2019-02-05 Cherrise testing d 01-01 10:30:00 [place] dependence 09:55: [id number] 00 Elimination urinary Eliminatio Resolve 2019-01-15 Cherrise frequency n d 4 11:25:00 [place] 09:55: [id number] 00 Elimination recurring Eliminatio Resolve 2019-02-05 Cherrise UTI n d 01-01 10:30:00 Emily 09:55: [id number] Respiratory knowledge/s Respirator Resolve 2019-01-08 Marlene [...] n 0-08 Nila e 09:15: [employer] 00 [id number] Elimination constipatio Eliminatio Active 2018-10 Marlene n [...] Tiffani n 10-27 Nila 09:00: [employer] 00 [id number] Safety risk for Safety Active 2018-10 Tiffani hospitaliza 10-27 Nila tion 09:00: [employer] 00 [id number] Safety knowledge/s Safety Active 2018-10 Marlene kill [...] mg capsule capsule carvedilol carvedilol 2017- No [place] Unknown Unknown 6.25 mg 6.25 mg 06-20 Abiel UPTON tablet tablet Brandon Vitamin D3 Vitamin D3 No [place] 2000 Unknown 50 mcg 50 mcg Sarah UPTON units (2,000 (2,000 unit) unit) capsule capsule dilTIAZem dilTIAZem 2017- No [place] Unknown Unknown 120 mg 120 mg 06-20 Abiel UPTON tablet tablet Brandon Depakote Depakote No [place] 1-2 Unknown 500 mg 500 mg Sarah UPTON tablet,lauryn tablet,lauryn yed release yed release Colace 100 Colace 100 2017- No [place] Unknown Unknown mg capsule mg capsule 06-20 Abiel UPTON furosemide furosemide No [place] 20 mg Unknown 20 mg 20 mg Sarah UPTON tablet tablet gabapentin gabapentin 2017- No [place] Unknown Unknown 300 mg 300 mg 06-20 Abiel UPTON capsule capsule Brandon glimepiride glimepiride No [place] 4 mg Unknown 4 mg tablet 4 mg tablet Sarah UPTON liraglutide liraglutide No [place] 1 Unknown 0.6 mg/0.1 0.6 mg/0.1 Sarah UPTON injecti mL (18 mg/3 mL (18 mg/3 on mL) mL) subcutaneou subcutaneou s pen s pen injector injector lisinopril lisinopril 2017- No [place] Unknown Unknown 20 mg 20 mg 06-20 Abiel UPTON tablet tablet Brandon Oyster Oyster No [place] 500 mg Unknown Shell Shell Sarah UPTON Calcium 500 Calcium 500 500 mg 500 mg calcium calcium (1,250 mg) (1,250 mg) tablet tablet multivitami multivitami 2017- No [place] Unknown Unknown n capsule n capsule 06-20 [...] Sarah UPTON capsule capsule oxygen oxygen No [place] Unknown Unknown 06-20 Abiel UPTON clopidogrel clopidogrel 2017- No [place] Unknown Unknown 75 mg 75 mg 06-20 Abiel UPTON tablet tablet Brandon desvenlafax desvenlafax 2017- No [place] Unknown Unknown ine ine 06-20 ,Abiel succinate succinate Brandon ER 100 mg ER 100 mg tablet,exte tablet,exte nded nded release 24 release 24 hr hr diphenhydrA diphenhydrA 2017- No [place] Unknown Unknown MINE 25 mg MINE 25 mg 06-20 Abiel UPTON capsule capsule Brandon Depakote ER Depakote ER 2017- No [place] Unknown Unknown 500 mg 500 mg 06-20 Abiel UPTON tablet,exte tablet,exte Brandon nded nded release release famotidine famotidine 2017- No [place] Unknown Unknown 40 mg 40 mg 06-20 Abiel UPTON tablet tablet Brandon gabapentin gabapentin 2017- No [place] Unknown Unknown 100 mg 100 mg 06-20 Abiel UPTON capsule capsule Brandon glimepiride glimepiride 2017- No [place] Unknown Unknown 4 mg tablet 4 mg tablet 06-20 Abiel U[facility]ON Nystop Nystop No [place] Unknown Unknown 100,000 100,000 06-20 Abiel UPTON unit/gram unit/gram Brandon topical topical powder powder atorvastati atorvastati 2017- No [place] Unknown Unknown n 80 mg n 80 mg 06-20 Abiel UPTON tablet tablet Brandon carvedilol carvedilol 2017-10- No [place] Unknown Unknown 6.25 mg 6.25 mg 07-02 ,Abiel tablet tablet Brandon Colace 100 Colace 100 2017-10- No [place] Unknown Unknown mg capsule mg capsule 07-02 Abiel UPTON diphenhydrA diphenhydrA 2017-10- No [place] Unknown Unknown MINE 25 mg MINE 25 mg 12-14 ,Abiel capsule capsule Brandon Depakote ER Depakote ER 2017-10- No [place] Unknown Unknown 500 mg 500 mg 09-27 ,Abiel tablet,exte tablet,exte Brandon nded nded release release Topamax 50 Topamax 50 2017- Kandy Unknown Unknown mg tablet mg tablet 06-27 ,Willian Saphris Saphris 2017- No [place] Unknown Unknown (black (black 06-27 ,Willian golden) 10 [place]) 10 mg mg sublingual sublingual tablet tablet pantoprazol pantoprazol 2017- No [place] Unknown Unknown e 40 mg e 40 mg 06-27 ,Abiel tablet,lauryn tablet,lauryn Brandon yed release yed release raNITIdine raNITIdine 2017- No [place] Unknown Unknown 300 mg 300 mg 06-27 Abiel UPTON tablet tablet Brandon Calcium 500 Calcium 500 2017- No [place] Unknown Unknown With D 500 With D 500 06-27 Abiel UPTON mg (1,250 mg (1,250 Brandon mg)-400 mg)-400 unit tablet unit tablet Vitamin D3 Vitamin D3 2018- No [place] Unknown Unknown 400 unit 400 unit 06-27 Abiel UPTON capsule capsule Brandon Victoza Victoza No [place] Unknown Unknown 2-Jeison 0.6 2-Jeison 0.6 06-27 Abiel UPTON mg/0.1 mL mg/0.1 mL Brandon (18 mg/3 (18 mg/3 mL) mL) subcutaneou subcutaneou s pen s pen injector injector atorvastati atorvastati 2017-10- No [place] Unknown Unknown n 80 mg n 80 [...] tablet 10-09 ,Geraldo doxycycline doxycycline 2017-10- No [place] Unknown Unknown monohydrate monohydrate 10-15 ,Abiel 100 mg 100 mg Brandon capsule capsule lithium lithium 2017-10- No Kandy Unknown Unknown carbonate carbonate 11-28 ,Willian 300 mg 300 mg tablet tablet Depakote ER Depakote ER 2017-10- No [place] Unknown Unknown 500 mg 500 mg 11-28 ,Willian tablet,exte tablet,exte nded nded release release sennosides sennosides 2017-10 No [place] Unknown Unknown 8.6 8.6 11-28 ,Abiel mg-docusate [...] mg tablet tablet diphenhydrA diphenhydrA 2018- No [place] Unknown Unknown MINE 25 mg MINE 25 mg 12-14 ,Abiel capsule capsule Brandon clindamycin clindamycin 2018- No [place] Unknown Unknown HCl 300 mg HCl 300 mg 12-25 ,Deb capsule capsule dilTIAZem dilTIAZem No [place] Unknown Unknown 120 mg 120 mg 06-20 ,Abiel tablet tablet Brandon gabapentin gabapentin 2018- No [place] Unknown Unknown 300 mg 300 mg 06-20 ,Abiel capsule capsule Brandon lisinopril lisinopril No [place] Unknown Unknown 20 mg 20 mg 06-20 ,Abiel tablet tablet Brandon multivitami multivitami No [place] Unknown Unknown n capsule n capsule 06-20 ,Abiel Taylor clopidogrel clopidogrel No [place] Unknown Unknown 75 mg 75 mg 06-20 ,Abiel tablet tablet Brandon gabapentin gabapentin No [place] Unknown Unknown 100 mg 100 mg 06-20 ,Abiel capsule capsule Brandon glimepiride glimepiride No [place] Unknown Unknown 4 mg tablet 4 mg tablet 06-20 Abiel UPTON carvedilol carvedilol 2017- No [place] Unknown Unknown 6.25 mg 6.25 mg 06-20 ,Abiel tablet tablet Brandon Saphris Saphris 2018- No [place] Unknown Unknown (black (black 06-20 ,Willian golden) 10 [place]) 10 mg mg sublingual sublingual tablet tablet pantoprazol pantoprazol No [place] Unknown Unknown e 40 mg e 40 mg 06-20 ,Abiel tablet,lauryn tablet,lauryn Brandon yed release yed release raNITIdine raNITIdine No [place] Unknown Unknown 300 mg 300 mg 06-20 ,Abiel tablet tablet Brandon Calcium 500 Calcium 500 2017- No [place] Unknown Unknown With D 500 With D 500 06-20 Abiel UPTON (1,250 mg (1,250 Brandon mg)-400 mg)-400 unit tablet unit tablet Vitamin D3 Vitamin D3 2018- No [place] Unknown Unknown 1,000 unit 1,000 unit 01-01 ,Abiel capsule capsule Brandon atorvastati atorvastati 2017- No [place] Unknown Unknown n 80 mg n 80 mg 10-31 ,Abiel tablet tablet Brandon atorvastajudit atorvastati 2017-10 No [place] Unknown Unknown n 80 mg n 80 [...] 24 hour hour carvedilol carvedilol 2017-10- No [place] Unknown Unknown 6.25 mg 6.25 mg 07-02 ,Abiel tablet tablet Brandon Saphris Saphris 2018- No [place] Unknown Unknown (black (black 06-27- ,Willian golden) 10 golden) 10 mg mg sublingual sublingual tablet tablet Calcium 500 Calcium 500 2018- No [place] Unknown Unknown With D 500 With D 500 06-27 Abiel UPTON (1,250 mg (1,250 Brandon mg)-400 mg)-400 unit tablet unit tablet Topamax 50 Topamax 50 2017-10- No [place]aitlynn Unknown Unknown mg tablet mg tablet 10-09 Geraldo UPTON Depakote ER Depakote ER No [place] Unknown Unknown 500 mg 500 mg 10-23 ,Willian tablet,exte tablet,exte nded nded release release diphenhydrA diphenhydrA No [place] Unknown Unknown MINE 25 mg MINE 25 mg - ,Abiel capsule capsule Brandon lithium lithium 2018- No [place] Unknown Unknown carbonate carbonate 11-29 ,Willian 300 mg 300 mg tablet tablet Colace 100 Colace 100 2017-10- No [place] Unknown Unknown mg capsule mg capsule 01-01 Abiel UPTON ipratropium ipratropium No [place] Unknown Unknown bromide bromide 02-19 ,Abiel 0.02 % 0.02 % Brandon solution solution for for inhalation inhalation albuterol albuterol No [place] Unknown Unknown sulfate 2.5 sulfate 2.5 - Abiel UPTON mg/3 mL mg/3 mL Brandon (0.083 %) (0.083 %) solution solution for for nebulizatio nebulizatio n n predniSONE predniSONE 2018- No [place] Unknown Unknown 20 mg 20 mg 12-28 ,Abiel tablet tablet Brandon benzonatate benzonatate No [place] Unknown Unknown 100 mg 100 mg 12-28 ,Abiel capsule capsule Brandon doxycycline doxycycline 2018- No [place] Unknown Unknown hyclate 100 hyclate 100 12-28 [...] MD,Deb tablet tablet carvedilol carvedilol 2017-10 No [place] Unknown Unknown 6.25 mg 6.25 mg 0- [...]
--- OUTSIDE RECORDS SUMMARY | 2019-12-01 11:53 | XMS REPORT | Continuity of Care Document ---
:1960 External Reference #:[id number] Author Name Lucas Chavarria M.D. (transmitted by agent of provider Katie Schmidt) Address [address] [place] [address] Care Team Providers Name Role Phone Mehran Combs MD - Internal Care Team Information Utility Person [phone] Medicine Alex Vo MD - Endocrinology, Care Team Information Utility Person [phone] Diabetes & Metabolism Vic Maddox NP - Family Care Team Information Utility Person [phone] Boris Shaw MD - Care Team Information Utility Person [phone] Otolaryngology Ashwin Michael MD - Obstetrics & Care Team Information Utility Person [phone] Gynecology Deb Pate M.D. - Family Medicine Care Team Information Utility Person Problems Active Problems Provider Date [place] disease [...] times daily 200units Monique Juarez MD 10/16/2019 [place] 32GX1/4" 32G X 6 mm [facility] [place] Freestyle Lite Test use as directed, 100units E11.65 Sarai Rush 03/2019 Strip test twice a day. Aimovig inject sq once a 1ml Geraldo Calderón, 08/07/2019 70mg/ml shaquille [place] Solution Auto-Inject Transport Chair use daily for 1units J44.9 Deb Pate MD 07/23/2019 [facility] [place] I67.5 M62.81 Lantus Solostar 20 u [...] tab by mouth at 90tabs Raf ScottEllyn Crocker, 08/08/2018 50mg Tablets night M.DEllyn Erikaist take 2 tabs at 120caps Abigail Deandre, 06/28/2018 25mg Capsules bedtime as needed M.DEllyn Commode Bedside large wide commode 1units I25.10 Ang Zelaya, 2017 Misc to be used daily Omer,FACP J44.9 Shingrix 0.5 milliliters 2units Ang Zelaya, 06/01/2018 50mcg intramuscular now and Omer,FACJose Antonio Suspension Rec 2-3 months later repeat Plavix 1 by mouth every day 30tabs Deb Pate MD 03/01/2018 75mg Tablets Hoveround PMD/Power use daily as directed 1units I50.41 Ang Zelaya, 01/05/2018 Mobility Device Omer,FACP I67.5 J44.9 Protonix 1 by mouth every 90tabs K31.1 Aixa Shine, 10/09/[address]ts day [address] Pollardridnusrat take one tablet by 90tabs E11.21 Aixa Shine, 12/09/2015 4mg Tablets mouth once daily M.DEllyn Carvedilol take one tablet by 180tabs I10 Aixa Shine, 12/08/2015 6.25mg mouth two times M.D. Tablets daily Oxygen please use O2 at Ang Long 12/08/2015 2Liters Misc 2l/min Omer Zelaya,FACP Victoza inject 1.8 mg [...] Pate MD 08/14/2014 Lancets directed DX E11.9 [facility] [place] Freestyle Lite Test test blood sugar up [...] Inj, Regadenoson, 0.1 MG Yuriy Jose, DO FAC 05/07/2015 Injection Technetium TC 99M Perez Rangel M.D., 05/07/2015 Tetrofosmin, Per Unit Dose FACC, FASNC Up To 40 Millicuries Injection Technetium TC 99M Yuriy Jose, DO FAC 05/07/2015 Tetrofosmin, Per Unit Dose Up To 40 Millicuries Injection PPD Vic Maddox, GERBER 11/12/2014 Injection PPD Nurse Visit [place] 11/04/2013 Injection PPD Annette Sin, 10/31/2012 Injection N.P. Immunizations CPT Code Status Date Vaccine Lot # [id number] Given 06/14/2018 Influenza Virus Vaccine, Quadrivalent, Split, Preservative Free [id number] Given 06/05/2017 Influenza Virus Vaccine, Quadrivalent, Split, Preservative Free [id number] Given 07/21/2016 Fluzone Vaccine [id number] Given 06/22/2016 Influenza Virus Vaccine, Quadrivalent, Split, [id number] Preservative Free 46600 Given 09/02/2015 Hepatitis B Vaccine Adult Dosage [id number] 92892 Given 09/02/2015 Pneumonia Vaccine [id number] 81123 Given 06/23/2015 Influenza Virus Vaccine, Quadrivalent, Split, [id number] Preservative Free 72774 Given 11/12/2014 Tdap - Tetanus/Diptheria/Acellular Pertussis [id number] 47388 Given 08/12/2014 Pneumococcal Conjugate Vaccine 13 Valent For [id number] Intramuscular Use 46030 Given 07/05/2014 Influenza Virus Vaccine, Quadrivalent, Split, [id number] Preservative Free 90903 Given 01/17/2014 Hepatitis B Vaccine Adult Dosage [id number] 60866 Given 05/10/2013 Hepatitis B Vaccine Adult Dosage [id number] Vital Signs Date Vital Result Comment 10/23/2019 4:04pm Height 67 inches 5'7" Weight 315.00 lb with shoes Heart Rate 92 /min BP Systolic Sitting 120 mmHg Lue lg cuff BP Diastolic Sitting 70 mmHg Lue lg cuff BP Systolic Standing 118 mmHg Lue lg cuff BP Diastolic Standing 64 mmHg Lue lg cuff Respiratory Rate 15 /min BMI (Body Mass Index) 49.3 kg/m2 Ejection Fraction 60-65% date 05/22/18 echo 10/23/2019 10:38am Height 67 inches 5'7" Weight 319.00 lb Heart Rate 82 /min BP Systolic Sitting 124 mmHg BP Diastolic Sitting 80 mmHg O2 % BldC Oximetry 98 % BMI (Body Mass Index) 50.0 kg/m2 Results Test Acquired Facility Test Result H/L Range Note Date Laboratory test 10/17/2019 [facility] Hemoglobin A1c 7.8 High 5-7 finding Laboratory test 09/11/2019 [facility] Troponin-I 0.00 ng/mL < 0.[address] (TnI) [place], [place] [id number] [phone] Laboratory test 09/11/2019 [facility] Partial 32.4 Normal 26.0 -38.[address] [place] [address] PTT [phone] B-Type Natriuretic Peptide BNP 20 pg/mL <=100 Magnesium 1.8 mg/dL Low 1.9-2.7 Creatine Kinase(CK) 47 U/L Normal 10-223 CKMB 09/11/2019 [facility] CKMB 1.5 ng/mL Normal 0.6-6.[address] ng/mL [place], [place] [address] [phone] Laboratory test 09/11/2019 [facility] TSH 1.82 Normal 0.34- 5.[address] (Thyroid mcIU/[place] [address] Stim Horm) [phone] Urinalysis 09/11/2019 [facility] Urine Yellow Profile [address] [place] [address] [phone] Urine Appearance Cloudy Urine Specific [place] 1.025 Normal 1.010-1.030 Urine pH 5.0 Normal 5-9 Urine Urobilinogen Negative Negative Urine Ketones Trace Abnormal Negative Urine Protein Negative Negative Urine Leukocytes Negative Negative Urine Blood Negative Negative Urine Nitrite Negative Negative Urine Bilirubin Negative Negative Urine Glucose 3+(>=500 mg/dL) Abnormal Negative Inr/Protime 09/11/2019 [facility] Inr 1.10 High 0.82-1.[address] [place] [address] [phone] Comp Metabolic 09/11/2019 [facility] Sodium 139 mmol/L Normal 135-[address] [place] [address] [phone] Potassium 4.4 mmol/L Normal 3.5-5.0 Chloride 105 [...] Egfr 88.5 >60 3 Laboratory test 09/11/2019 [facility] Troponin-I 0.00 <0.03 4 finding 101 (TnI) ng/[place] [address] [phone] CBC Auto Diff 09/11/2019 [facility] White Blood 7.8 Normal 3.5 -10.[address] Count 10^3/[place] [address] [phone] Red Blood Count 5.16 10^6/uL High 3.70-4.87 [...] Blood Cells % 0.2 Laboratory test 07/09/2019 [facility] Influenza A/B Rapid Negative A-B finding Lipid Profile 06/26/2019 [facility] Triglycerides 282 mg/dL 5, 6 (Trig/Chol/HDL) [address] [place] [address] [phone] Cholesterol 162 mg/dL 7 HDL Cholesterol 42.0 mg/dL 8 LDL Cholesterol 64 mg/dL 9 Laboratory test 06/26/2019 [facility] Hemoglobin A1c 7.9 % High 4.0-5.[address] (Glyco HGB) [place] [address] [phone] 1 Troponin-I testing on Plasma Separator Tubes (PST) has a known false positive rate of 0.20-0.40%. All positive troponins reflex immediately to secondary confirmatory testing. Using the noodls DxI 800 Access Immunoassay systems, the 99th [...] immediately to secondary confirmatory testing. Using the RevverI 800 Access Immunoassay systems, the 99th percentile [...] in selective patients <6.0%. Please refer to [place] [employer] diabetic care guidelines for further information. Procedures Date Code Description Status 10/23/2019 96446 EKG Tracing & Interpretation Completed 09/12/2019 81221 Treadmill Interp/Report Only Completed 09/12/2019 28958 Stress Test Supervsn W/Out I/R Completed 09/12/2019 33194 EKG, Interpretation Only Completed 09/03/2019 [id number] Diabetic Foot Exam Completed 08/26/2019 [id number] Diabetic Foot Exam Completed 04/29/2019 [id number] Mammogram Completed 09/27/2018 [id number] Diabetic Retinal Eye Exam Completed 02/07/2018 [id number] Diabetic Foot Exam Completed 03/14/2017 [id number] Mammogram Completed 11/16/2016 [id number] Diabetic Retinal Eye Exam Completed 09/18/2015 [id number] Diabetic Retinal Eye Exam Completed 11/05/2014 [id number] Mammogram Completed 07/03/2014 [id number] Diabetic Retinal Eye Exam Completed 12/09/2013 [id number] Colonoscopy Completed 11/04/2013 [id number] Mammogram Completed 05/03/2013 [id number] Diabetic Retinal Eye Exam Completed Medical Devices Description No Information Available Encounters Type Date Location Provider Dx Diagnosis Office Visit 10/17/2019 Emily Juarez MD E11.65 Type 2 diabetes 10:40a Medicine - [facility] mellitus with hyperglycemia I10 Essential (primary) hypertension K59.00 Constipation, unspecified E11.40 Type 2 diabetes mellitus with diabetic neuropathy, unsp Z68.43 Body mass index (BMI) 50.0-59.9, adult Office Visit 09/16/2019 8:40a [facility] Rowena Juarez MD R07.89 Other chest Medicine - [facility] pain R05 Cough E11.65 Type 2 diabetes mellitus with hyperglycemia I10 Essential (primary) hypertension Z86.73 Prsnl hx of TIA (TIA), and cereb infrc w/o resid deficits Office Visit 09/13/2019 [facility] Yana Loya, R07.9 Chest pain, 10:43a Assoc,pc M.DEllyn unspecified Hospitalists E11.9 Type 2 diabetes mellitus without complications I10 Essential (primary) hypertension E66.01 Morbid (severe) obesity due to excess calories Z68.43 Body mass index (BMI) 50.0-59.9, adult Office Visit 09/11/2019 10:42a [facility] Yana Loya, R07.89 Other chest Assocsusan M.D. pain Hospitalists R53.1 Weakness G47.33 Obstructive sleep apnea (adult) (pediatric) J96.11 Chronic respiratory failure with hypoxia E11.9 Type 2 diabetes mellitus without complications Office Visit 08/07/2019 [facility] Geraldo Calderón, I67.5 [place] 9:15a Clinic MD disease G43.019 Migraine w/o aura, intractable, without status migrainosus G44.229 Chronic tension-type headache, not intractable Office Visit 07/12/2019 9:40a [facility] Rowena Pate E11.65 Type 2 diabetes Medicine - MD mellitus with [facility] hyperglycemia I10 Essential (primary) hypertension J06.9 Acute upper respiratory infection, unspecified Office Visit 07/09/2019 3:20p [facility] Rowena Pate J06.9 [facility], [facility] 05/24/2019 1:15p Jonathan Gonzalez, M25.551 Pain in right hip Orthopedics at .[place] M16.11 Unilateral primary osteoarthritis, right hip M70.61 Trochanteric bursitis, right hip Office Visit 05/03/2019 9:15a [facility] J44.9 [facility] Stephane obstructive [facility] pulmonary disease, unspecified G47.33 Obstructive sleep apnea (adult) (pediatric) Assessments Date Code Description Provider 10/23/2019 I10 Essential (primary) hypertension Lucas Chavarria [...] electrocardiogram [ECG] Amos Beckman MD, FACC, [EKG] FSCAI 09/12/2019 R07.9 Chest pain, unspecified Amos Beckman MD, FACC, [facility] 09/12/2019 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 09/12/2019 [...] NP at [facility]01/16/2020 10:40 am - Monique Juarez MD at [facility] Internal Medicine - Ccm12/12/2019 10:00 am - Geraldo Calderón MD at [facility] Eztfij2010/23/2019 - Lucas Chavarria M.D.I10 Essential (primary ) hypertensionFollow up:6 pnhjosZ44.89 Other chest painZ68.43 Body mass index ( BMI) 50.0-59.9, adult Functional Status Description No Information Available Mental Status Description No Information Available Referrals Description No Information Available
--- OUTSIDE RECORDS SUMMARY | 2019-12-01 11:53 | XMS REPORT ---
:1960 Author Organization [facility] Care Team Providers Name Role Phone Unavailable [...] d 06-20 10:30:00 (Andrés) 08:20: Walker 00 [id number] Cardio edema Cardiovasc Resolve 2018-08-16 Becca ular d 06-20 10:00:00 (Andrés) 08:20: Walker 00 [id number] Respiratory dyspnea Respirator Resolve 2019-02-05 Becca present y d 06-20 10:30:00 (Andrés) 08:20: Walker 00 [id number] Respiratory lung sounds Respirator Resolve 2019-02-05 Becca deficit y d 06-20 10:30:00 (Andrés) 08:20: Walker 00 [id number] Endo/Gage anti-coagul Endo/Gage Resolve 2018-07-31 Becca ation d 06-20 11:58:00 (Andrés) therapy 08:20: Walker [id number] Integument skin Integument Active Becca integrity 06-20 (Andrés) risk 08:20: Walker [id number] Elimination urinary Eliminatio Resolve 2018-08-16 Becca incontinenc n d 06-20 10:00:00 (Andrés) e 08:20: Walker [id number] Neuro confusion Neuro/Emot Active Becca present ion 06-20 (Andrés) 08:20: Walker [id number] Neuro anxiety Neuro/Emot Active Becca present ion 06-20 (Andrés) 08:20: Walker [id number] Neuro impaired Neuro/Emot Active Becca decision-ma ion 06-20 (Andrés) caty 08:20: Walker [id number] Activity ADL Activity Active Becca assistance 06-20 (Andrés) required 08:20: Walker [id number] Safety cannot be Safety Active Becca left alone 06-20 (Andrés) 08:20: Walker [id number] Safety fall risk Safety Resolve 2019-08-13 Becca factor d 06-20 10:55:00 (Andrés) present 08:20: Walker [id number] Safety risk for Safety Resolve 2019-08-13 Becca hospitaliza d 06-20 10:55:00 (Andrés) tion 08:20: Walker [id number] Medication oral med Meds Resolve 2018-07-31 Becca assistance d 06-20 11:58:00 (Andrés) required 08:20: Walker [id number] Medication potential Meds Resolve 2018-07-31 Becca clinically d 06-20 11:58:00 (Andrés) significant 08:20: Walker medication 00 [id number] issue Musculoskel requires Musculoske Resolve 2019-06-13 Becca etal human letal d 06-20 13:00:00 (Andrés) assist to 08:20: Walker leave home 00 [id number] Musculoskel transfer Musculoske Resolve 2019-06-13 Becca etal assistance letal d 06-20 13:00:00 Guidelli required 08:20: [id number] 00 Respiratory oxygen Respirator Resolve 2019-02-05 Loreta treatments y d 06-26 10:30:00 Marlow-Zos in home 10:28: h [id number] 00 Safety can be left Safety Active Loreta alone for 06-26 Marlow-Zos only short 10:28: h [id number] periods 00 Elimination urinary Eliminatio Resolve 2017-102018-08-16 Loreta frequency n d 10:00:00 Marlow-Zos 11:58: h [id number] 00 Neuro knowledge/s Neuro/Emot Active 2017-10 Loreta kill ion 0 Marlow-Zos deficit: cg 11:58: h [id number] 00 Endo/Gage anti-coagul Endo/Gage Resolve 2017-102019-01-29 Loreta ation d 1-15 12:45:00 Marlow-Zos therapy 10:00: h [id number] 00 Neuro depressive Neuro/Emot Active 2017-10 Loreta feelings ion 1-15 Marlow-Zos present 10:00: h [id number] 00 Medication oral med Meds Resolve 2017-102019-02-05 Loreta assistance d 1-15 10:30:00 Guy-Zos required 10:00: h [id number] 00 Medication injectable Meds Resolve 2017-102019-02-05 Loreta med d -15 10:30:00 Guy-Zos assistance 10:00: h [id number] required 00 Medication potential Meds Active 2017-10 Loreta clinically -15 Marlow-Zos significant 10:00: h [id number] medication 00 issue Endo/Gage knowledge/s Endo/Gage Resolve [...] treatment y 12-25 Emily in home 09:30: [id number] 00 Endo/Gage glucose Endo/Gage Resolve 2019-01-29 Cherrise tolerance d 12-25 12:45:00 Emily problem 09:30: [id number] Nutrition knowledge/s Nutrition Resolve 2019-01-29 Cherrise kill d 12-25 12:45:00 [place] deficit: pt 09:30: [id number] Elimination urinary Eliminatio Resolve 2019-01-15 Cherrise incontinenc n d 12-25 11:25:00 Emily e 09:30: [id number] 00 Elimination urinary Eliminatio Resolve 2019-01-15 Cherrise urgency n d 12-25 11:25:00 [place] 09:30: [id number] 00 Endo/Gage insulin Endo/Gage Resolve 2019-02-05 Cherrise admn d 02 10:30:00 [place] dependence 09:55: [id number] 00 Endo/Gage glucose Endo/Gage Resolve 2019-02-05 Cherrise testing d 01-01 10:30:00 [place] dependence 09:55: [id number] 00 Elimination urinary Eliminatio Resolve 2019-01-15 Cherrise frequency n d 4 11:25:00 [place] 09:55: [id number] 00 Elimination recurring Eliminatio Resolve 2019-02-05 Cherrise UTI n d 01-01 10:30:00 Emily 09:55: [id number] 00 Respiratory knowledge/s Respirator Resolve 2019-01-08 Marlene [...] n 0-08 Nila e 09:15: [employer] 00 [id number] Elimination constipatio Eliminatio Active 2018-10 Marlene n [...] Tiffani n 10-27 Nila 09:00: [employer] 00 [id number] Safety risk for Safety Active 2018-10 Tiffani hospitaliza 10-27 Nila tion 09:00: [employer] 00 [id number] Safety knowledge/s Safety Active 2018-10 Marlene kill [...] No Crowe 325 mg Unknown buffered buffered Sraah [place] 325 mg 325 mg tablet tablet atorvastati atorvastati No Crowe 20 mg Unknown n 20 mg n 20 mg Sarah [place] tablet tablet Fiorinal-Co Fiorinal-Co No Crowe 2 caps Unknown deine #3 30 deine #3 30 Sarah [place] mg-50 mg-50 mg-325 mg-325 mg-40 mg mg-40 mg capsule capsule carvedilol carvedilol 2017- No [place] Unknown Unknown 6.25 mg 6.25 mg 06-20 Abiel [place] tablet tablet Brandon Vitamin D3 Vitamin D3 No Crowe 2000 Unknown 50 mcg 50 mcg Sarah [place] units (2,000 (2,000 unit) unit) capsule capsule dilTIAZem dilTIAZem 2017- No [place] Unknown Unknown 120 mg 120 mg 06-20 Abiel [place] tablet tablet Brandon Depakote Depakote No Crowe 1-2 Unknown 500 mg 500 mg Sarah [place] tablet,luaryn tablet,lauryn yed release yed release Colace 100 Colace 100 2017- No [place] Unknown Unknown mg capsule mg capsule 06-20 Abiel [place] furosemide furosemide No Crowe 20 mg Unknown 20 mg 20 mg Sarah [place] tablet tablet gabapentin gabapentin 2017- No [place] Unknown Unknown 300 mg 300 mg 06-20 Abiel [place] capsule capsule Brandon glimepiride glimepiride No Crowe 4 mg Unknown 4 mg tablet 4 mg tablet Sarah [place] liraglutide liraglutide No Crowe 1 Unknown 0.6 mg/0.1 0.6 mg/0.1 Sarah [place] injecti mL (18 mg/3 mL (18 mg/3 on mL) mL) subcutaneou subcutaneou s pen s pen injector injector lisinopril lisinopril 2017- No [place] Unknown Unknown 20 mg 20 mg 06-20 Abiel [place] tablet tablet Brandon Oyster Oyster No Crowe 500 mg Unknown Shell Shell Sarah [place] Calcium 500 Calcium 500 500 mg 500 mg calcium calcium (1,250 mg) (1,250 mg) tablet tablet multivitami multivitami 2017- No [place] Unknown Unknown n capsule n capsule 06-20 [...] Sarah [place] capsule capsule oxygen oxygen No [place] Unknown Unknown 06-20 Abiel [place] clopidogrel clopidogrel 2017- No [place] Unknown Unknown 75 mg 75 mg 06-20 Abiel [place] tablet tablet Brandon desvenlafax desvenlafax 2017- No [place] Unknown Unknown ine ine 06-20 ,Abiel succinate succinate Brandon ER 100 mg ER 100 mg tablet,exte tablet,exte nded nded release 24 release 24 hr hr diphenhydrA diphenhydrA 2017- No [place] Unknown Unknown MINE 25 mg MINE 25 mg 06-20 Abiel [place] capsule capsule Brandon Depakote ER Depakote ER 2017- No [place] Unknown Unknown 500 mg 500 mg 06-20 Abiel [place] tablet,exte tablet,exte Brandon nded nded release release famotidine famotidine 2017- No [place] Unknown Unknown 40 mg 40 mg 06-20 Abiel [place] tablet tablet Brandon gabapentin gabapentin 2017- No [place] Unknown Unknown 100 mg 100 mg 06-20 Abiel [place] capsule capsule Brandon glimepiride glimepiride 2017- No [place] Unknown Unknown 4 mg tablet 4 mg tablet 06-20 Abiel [place] Nystop Nystop No [place] Unknown Unknown 100,000 100,000 06-20 Abiel [place] unit/gram unit/gram Brandon topical topical powder powder atorvastati atorvastati 2017- No [place] Unknown Unknown n 80 mg n 80 mg 06-20 Abiel [place] tablet tablet Brandon carvedilol carvedilol 2017-10- No [place] Unknown Unknown 6.25 mg 6.25 mg 07-02 ,Abiel tablet tablet Brandon Colace 100 Colace 100 2017-10- No [place] Unknown Unknown mg capsule mg capsule 07-02 Abiel [place] diphenhydrA diphenhydrA 2017-10- No [place] Unknown Unknown MINE 25 mg MINE 25 mg 12-14 ,Abiel capsule capsule Brandon Depakote ER Depakote ER 2017-10- No [place] Unknown Unknown 500 mg 500 mg 09-27 ,Abiel tablet,exte tablet,exte Brandon nded nded release release Topamax 50 Topamax 50 2017- Kandy Unknown Unknown mg tablet mg tablet 06-27 ,Willian Saphris Saphris 2017- No Kandy Unknown Unknown (black (black 06-27 ,Willian golden) 10 [place]) 10 mg mg sublingual sublingual tablet tablet pantoprazol pantoprazol 2017- No [place] Unknown Unknown e 40 mg e 40 mg 06-27 ,Abiel tablet,lauryn tablet,lauryn Brandon yed release yed release raNITIdine raNITIdine 2017- No [place] Unknown Unknown 300 mg 300 mg 06-27 Abiel [place] tablet tablet Brandon Calcium 500 Calcium 500 2017- No [place] Unknown Unknown With D 500 With D 500 06-27 Abiel [place] mg (1,250 mg (1,250 Brandon mg)-400 mg)-400 unit tablet unit tablet Vitamin D3 Vitamin D3 2018- No [place] Unknown Unknown 400 unit 400 unit 06-27 Abiel [place] capsule capsule Brandon Victoza Victoza No [place] Unknown Unknown 2-Jeison 0.6 2-Jeison 0.6 06-27 Abiel [place] mg/0.1 mL mg/0.1 mL Brandon (18 mg/3 (18 mg/3 mL) mL) subcutaneou subcutaneou s pen s pen injector injector atorvastati atorvastati 2017-10- No [place] Unknown Unknown n 80 mg n 80 [...] tablet 10-09 ,Geraldo doxycycline doxycycline 2017-10- No [place] Unknown Unknown monohydrate monohydrate 10-15 ,Abiel 100 mg 100 mg Brandon capsule capsule lithium lithium 2017-10- No Kandy Unknown Unknown carbonate carbonate 11-28 ,Willian 300 mg 300 mg tablet tablet Depakote ER Depakote ER 2017-10- No Kandy Unknown Unknown 500 mg 500 mg 11-28 ,Willian tablet,exte tablet,exte nded nded release release sennosides sennosides 2017-10 No [place] Unknown Unknown 8.6 8.6 11-28 ,Abiel mg-docusate [...] mg tablet tablet diphenhydrA diphenhydrA 2018- No [place] Unknown Unknown MINE 25 mg MINE 25 mg 12-14 ,Abiel capsule capsule Brandon clindamycin clindamycin 2018- No Pate Unknown Unknown HCl 300 mg HCl 300 mg 12-25 ,Deb capsule capsule dilTIAZem dilTIAZem No [place] Unknown Unknown 120 mg 120 mg 06-20 ,Abiel tablet tablet Brandon gabapentin gabapentin 2018- No [place] Unknown Unknown 300 mg 300 mg 06-20 ,Abiel capsule capsule Brandon lisinopril lisinopril No [place] Unknown Unknown 20 mg 20 mg 06-20 ,Abiel tablet tablet Brandon multivitami multivitami No [place] Unknown Unknown n capsule n capsule 06-20 ,Abiel Taylor clopidogrel clopidogrel No [place] Unknown Unknown 75 mg 75 mg 06-20 ,Abiel tablet tablet Brandon gabapentin gabapentin No [place] Unknown Unknown 100 mg 100 mg 06-20 ,Abiel capsule capsule Brandon glimepiride glimepiride No [place] Unknown Unknown 4 mg tablet 4 mg tablet 06-20 Abiel [place] carvedilol carvedilol 2017- No [place] Unknown Unknown 6.25 mg 6.25 mg 06-20 ,Abiel tablet tablet Brandon Saphris Saphris 2018- No Kandy Unknown Unknown (black (black 06-20 ,Willian golden) 10 [place]) 10 mg mg sublingual sublingual tablet tablet pantoprazol pantoprazol No [place] Unknown Unknown e 40 mg e 40 mg 06-20 ,Abiel tablet,lauryn tablet,lauryn Brandon yed release yed release raNITIdine raNITIdine No [place] Unknown Unknown 300 mg 300 mg 06-20 ,Abiel tablet tablet Brandon Calcium 500 Calcium 500 2017- No [place] Unknown Unknown With D 500 With D 500 06-20 Abiel [place] (1,250 mg (1,250 Brandon mg)-400 mg)-400 unit tablet unit tablet Vitamin D3 Vitamin D3 2018- No [place] Unknown Unknown 1,000 unit 1,000 unit 01-01 ,Abiel capsule capsule Brandon atorvastati atorvastati 2017- No [place] Unknown Unknown n 80 mg n 80 mg 10-31 ,Abiel tablet tablet Brandon atorvastajudit atorvastati 2017-10 No [place] Unknown Unknown n 80 mg n 80 [...] 24 hour hour carvedilol carvedilol 2017-10- No [place] Unknown Unknown 6.25 mg 6.25 mg 07-02 ,Abiel tablet tablet Brandon Saphris Saphris 2018- No Kandy Unknown Unknown (black (black 06-27- ,Willian golden) 10 golden) 10 mg mg sublingual sublingual tablet tablet Calcium 500 Calcium 500 2018- No [place] Unknown Unknown With D 500 With D 500 06-27 Abiel [place] (1,250 mg (1,250 Brandon mg)-400 mg)-400 unit tablet unit tablet Topamax 50 Topamax 50 2017-10- No Kaitlynn Unknown Unknown mg tablet mg tablet 10-09 Geraldo [place] Depakote ER Depakote ER No Kandy Unknown Unknown 500 mg 500 mg 10-23 ,Willian tablet,exte tablet,exte nded nded release release diphenhydrA diphenhydrA No [place] Unknown Unknown MINE 25 mg MINE 25 mg - ,Abiel capsule capsule Brandon lithium lithium 2018- No Kandy Unknown Unknown carbonate carbonate 11-29 ,Willian 300 mg 300 mg tablet tablet Colace 100 Colace 100 2017-10- No [place] Unknown Unknown mg capsule mg capsule 01-01 Abiel [place] ipratropium ipratropium No [place] Unknown Unknown bromide bromide 02-19 ,Abiel 0.02 % 0.02 % Brandon solution solution for for inhalation inhalation albuterol albuterol No [place] Unknown Unknown sulfate 2.5 sulfate 2.5 - Abiel [place] mg/3 mL mg/3 mL Brandon (0.083 %) (0.083 %) solution solution for for nebulizatio nebulizatio n n predniSONE predniSONE 2018- No [place] Unknown Unknown 20 mg 20 mg 12-28 ,Abiel tablet tablet Brandon benzonatate benzonatate No [place] Unknown Unknown 100 mg 100 mg 12-28 ,Abiel capsule capsule Brandon doxycycline doxycycline 2018- No [place] Unknown Unknown hyclate 100 hyclate 100 12-28 [...] Unknown Unknown mg tablet mg tablet 01-29 Wlilian [place] LaMICtal 25 LaMICtal 25 2018- No [...] MD,Deb tablet tablet carvedilol carvedilol 2017-10 No [place] Unknown Unknown 6.25 mg 6.25 mg 0- [...]
--- OUTSIDE RECORDS SUMMARY | 2019-12-01 11:53 | XMS REPORT ---
:1960 Author Organization [facility] Care Team Providers Name Role Phone Unavailable [...] d 06-20 10:30:00 (Andrés) 08:20: Walker 00 [id number] Cardio edema Cardiovasc Resolve 2018-08-16 Becca ular d 06-20 10:00:00 (Andrés) 08:20: Walker 00 [id number] Respiratory dyspnea Respirator Resolve 2019-02-05 Becca present y d 06-20 10:30:00 (Andrés) 08:20: Walker 00 [id number] Respiratory lung sounds Respirator Resolve 2019-02-05 Becca deficit y d 06-20 10:30:00 (Andrés) 08:20: Walker 00 [id number] Endo/Gage anti-coagul Endo/Gage Resolve 2018-07-31 Becca ation d 06-20 11:58:00 (Andrés) therapy 08:20: Awlker [id number] Integument skin Integument Active Becca integrity 06-20 (Andrés) risk 08:20: Walker [id number] Elimination urinary Eliminatio Resolve 2018-08-16 Becca incontinenc n d 06-20 10:00:00 (Andrés) e 08:20: Walker [id number] Neuro confusion Neuro/Emot Active Becca present ion 06-20 (Andrés) 08:20: Walker [id number] Neuro anxiety Neuro/Emot Active Becca present ion 06-20 (Andrés) 08:20: Walker [id number] Neuro impaired Neuro/Emot Active Becca decision-ma ion 06-20 (Andrés) caty 08:20: Walker [id number] Activity ADL Activity Active Becca assistance 06-20 (Andrés) required 08:20: Walker [id number] Safety cannot be Safety Active Becca left alone 06-20 (Andrés) 08:20: Walker [id number] Safety fall risk Safety Resolve 2019-08-13 Becca factor d 06-20 10:55:00 (Andrés) present 08:20: Walker [id number] Safety risk for Safety Resolve 2019-08-13 Becca hospitaliza d 06-20 10:55:00 (Andrés) tion 08:20: Walker [id number] Medication oral med Meds Resolve 2018-07-31 Becca assistance d 06-20 11:58:00 (Andrés) required 08:20: Walker [id number] Medication potential Meds Resolve 2018-07-31 Becca clinically d 06-20 11:58:00 (Andrés) significant 08:20: Walker medication 00 [id number] issue Musculoskel requires Musculoske Resolve 2019-06-13 Becca etal human letal d 06-20 13:00:00 (Andrés) assist to 08:20: Walker leave home 00 [id number] Musculoskel transfer Musculoske Resolve 2019-06-13 Becca etal assistance letal d 06-20 13:00:00 Guidelli required 08:20: [id number] 00 Respiratory oxygen Respirator Resolve 2019-02-05 Loreta treatments y d 06-26 10:30:00 Garber-Zos in home 10:28: h [id number] 00 Safety can be left Safety Active Loreta alone for 06-26 Garber-Zos only short 10:28: h [id number] periods 00 Elimination urinary Eliminatio Resolve 2017-102018-08-16 Loreta frequency n d 10:00:00 Garber-Zos 11:58: h [id number] 00 Neuro knowledge/s Neuro/Emot Active 2017-10 Loreta kill ion 0 Garber-Zos deficit: cg 11:58: h [id number] 00 Endo/Gage anti-coagul Endo/Gage Resolve 2017-102019-01-29 Loreta ation d 1-15 12:45:00 Garber-Zos therapy 10:00: h [id number] 00 Neuro depressive Neuro/Emot Active 2017-10 Loreta feelings ion 1-15 Garber-Zos present 10:00: h [id number] 00 Medication oral med Meds Resolve 2017-102019-02-05 Loreta assistance d 1-15 10:30:00 Guy-Zos required 10:00: h [id number] 00 Medication injectable Meds Resolve 2017-102019-02-05 Loreta med d -15 10:30:00 Guy-Zos assistance 10:00: h [id number] required 00 Medication potential Meds Active 2017-10 Loreta clinically -15 Garber-Zos significant 10:00: h [id number] medication 00 issue Endo/Gage knowledge/s Endo/Gage Resolve [...] treatment y 12-25 Emily in home 09:30: [id number] 00 Endo/Gage glucose Endo/Gage Resolve 2019-01-29 Cherrise tolerance d 12-25 12:45:00 Emily problem 09:30: [id number] 00 Nutrition knowledge/s Nutrition Resolve 2019-01-29 Cherrise kill d 12-25 12:45:00 [place]ford deficit: pt 09:30: [id number] 00 Elimination urinary Eliminatio Resolve 2019-01-15 Cherrise incontinenc n d 12-25 11:25:00 Emily e 09:30: [id number] 00 Elimination urinary Eliminatio Resolve 2019-01-15 Cherrise urgency n d 12-25 11:25:00 [place] 09:30: [id number] 00 Endo/Gage insulin Endo/Gage Resolve 2019-02-05 Cherrise admn d 02 10:30:00 [place] dependence 09:55: [id number] 00 Endo/Gage glucose Endo/Gage Resolve 2019-02-05 Cherrise testing d 01-01 10:30:00 [place] dependence 09:55: [id number] 00 Elimination urinary Eliminatio Resolve 2019-01-15 Cherrise frequency n d 4 11:25:00 [place] 09:55: [id number] 00 Elimination recurring Eliminatio Resolve 2019-02-05 Cherrise UTI n d 01-01 10:30:00 Emily 09:55: [id number] 00 Respiratory knowledge/s Respirator Resolve 2019-01-08 Marlene [...] n 0-08 Nila e 09:15: [employer] 00 [id number] Elimination constipatio Eliminatio Active 2018-10 Marlene n [...] Tiffani n 10-27 Nila 09:00: [employer] 00 [id number] Safety risk for Safety Active 2018-10 Tiffani hospitaliza 10-27 Nila tion 09:00: [employer] 00 [id number] Safety knowledge/s Safety Active 2018-10 Marlene kill [...] mg capsule capsule carvedilol carvedilol 2017- No Garrett Unknown Unknown 6.25 mg 6.25 mg 06-20 Abiel UPTON tablet tablet Brandon Vitamin D3 Vitamin D3 No Crowe 2000 Unknown 50 mcg 50 mcg Sarah UPTON units (2,000 (2,000 unit) unit) capsule capsule dilTIAZem dilTIAZem 2017- No Garrett Unknown Unknown 120 mg 120 mg 06-20 Abiel UPTON tablet tablet Brandon Depakote Depakote No Crowe 1-2 Unknown 500 mg 500 mg Sarah UPTON tablet,lauryn tablet,lauryn yed release yed release Colace 100 Colace 100 2017- No Garrett Unknown Unknown mg capsule mg capsule 06-20 Abiel UPTON furosemide furosemide No Crowe 20 mg Unknown 20 mg 20 mg Sarah UPTON tablet tablet gabapentin gabapentin 2017- No Garrett Unknown Unknown 300 mg 300 mg 06-20 Abiel UPTON capsule capsule Brandon glimepiride glimepiride No Crowe 4 mg Unknown 4 mg tablet 4 mg tablet Sarah UPTON liraglutide liraglutide No Crowe 1 Unknown 0.6 mg/0.1 0.6 mg/0.1 Sarah UPTON injecti mL (18 mg/3 mL (18 mg/3 on mL) mL) subcutaneou subcutaneou s pen s pen injector injector lisinopril lisinopril 2017- No Garrett Unknown Unknown 20 mg 20 mg 06-20 Abiel UPTON tablet tablet Brandon Oyster Oyster No Crowe 500 mg Unknown Shell Shell Sarah UPTON Calcium 500 Calcium 500 500 mg 500 mg calcium calcium (1,250 mg) (1,250 mg) tablet tablet multivitami multivitami 2017- No Garrett Unknown Unknown n capsule n capsule 06-20 [...] Sarah UPTON capsule capsule oxygen oxygen No Garrett Unknown Unknown 06-20 Abiel UPTON clopidogrel clopidogrel 2017- No Garrett Unknown Unknown 75 mg 75 mg 06-20 Abiel UPTON tablet tablet Brandon desvenlafax desvenlafax 2017- No Garrett Unknown Unknown ine ine 06-20 ,Abiel succinate succinate Brandon ER 100 mg ER 100 mg tablet,exte tablet,exte nded nded release 24 release 24 hr hr diphenhydrA diphenhydrA 2017- No Garrett Unknown Unknown MINE 25 mg MINE 25 mg 06-20 Abiel UPTON capsule capsule Brandon Depakote ER Depakote ER 2017- No Garrett Unknown Unknown 500 mg 500 mg 06-20 Abiel UPTON tablet,exte tablet,exte Brandon nded nded release release famotidine famotidine 2017- No Garrett Unknown Unknown 40 mg 40 mg 06-20 Abiel UPTON tablet tablet Brandon gabapentin gabapentin 2017- No Garrett Unknown Unknown 100 mg 100 mg 06-20 Abiel UPTON capsule capsule Brandon glimepiride glimepiride 2017- No Garrett Unknown Unknown 4 mg tablet 4 mg tablet 06-20 Abiel UPTON Nystop Nystop No Garrett Unknown Unknown 100,000 100,000 06-20 Abiel UPTON unit/gram unit/gram Brandon topical topical powder powder atorvastati atorvastati 2017- No Garrett Unknown Unknown n 80 mg n 80 mg 06-20 Abiel UPTON tablet tablet Brandon carvedilol carvedilol 2017-10- No Garrett Unknown Unknown 6.25 mg 6.25 mg 07-02 ,Abiel tablet tablet Brandon Colace 100 Colace 100 2017-10- No Garrett Unknown Unknown mg capsule mg capsule 07-02 Abiel UPTON diphenhydrA diphenhydrA 2017-10- No Garrett Unknown Unknown MINE 25 mg MINE 25 mg 12-14 ,Abiel capsule capsule Brandon Depakote ER Depakote ER 2017-10- No Garrett Unknown Unknown 500 mg 500 mg 09-27 ,Abiel tablet,exte tablet,exte Brandon nded nded release release Topamax 50 Topamax 50 2017- Kandy Unknown Unknown mg tablet mg tablet 06-27 ,Willian Saphris Saphris 2017- No Kandy Unknown Unknown (black (black 06-27 ,Willian golden) 10 [place]) 10 mg mg sublingual sublingual tablet tablet pantoprazol pantoprazol 2017- No Garrett Unknown Unknown e 40 mg e 40 mg 06-27 ,Abiel tablet,lauryn tablet,lauryn Brandon yed release yed release raNITIdine raNITIdine 2017- No Garrett Unknown Unknown 300 mg 300 mg 06-27 Abiel UPTON tablet tablet Brandon Calcium 500 Calcium 500 2017- No Garrett Unknown Unknown With D 500 With D 500 06-27 Abiel UPTON mg (1,250 mg (1,250 Brandon mg)-400 mg)-400 unit tablet unit tablet Vitamin D3 Vitamin D3 2018- No Garrett Unknown Unknown 400 unit 400 unit 06-27 Abiel UPTON capsule capsule Brandon Victoza Victoza No Garrett Unknown Unknown 2-Jeison 0.6 2-Jeison 0.6 06-27 Abiel UPTON mg/0.1 mL mg/0.1 mL Brandon (18 mg/3 (18 mg/3 mL) mL) subcutaneou subcutaneou s pen s pen injector injector atorvastati atorvastati 2017-10- No Garrett Unknown Unknown n 80 mg n 80 [...] tablet 10-09 ,Geraldo doxycycline doxycycline 2017-10- No Garrett Unknown Unknown monohydrate monohydrate 10-15 ,Abiel 100 mg 100 mg Brandon capsule capsule lithium lithium 2017-10- No Kandy Unknown Unknown carbonate carbonate 11-28 ,Willian 300 mg 300 mg tablet tablet Depakote ER Depakote ER 2017-10- No Kandy Unknown Unknown 500 mg 500 mg 11-28 ,Willian tablet,exte tablet,exte nded nded release release sennosides sennosides 2017-10 No Garrett Unknown Unknown 8.6 8.6 11-28 ,Abiel mg-docusate [...] mg tablet tablet diphenhydrA diphenhydrA 2018- No Garrett Unknown Unknown MINE 25 mg MINE 25 mg 12-14 ,Abiel capsule capsule Brandon clindamycin clindamycin 2018- No Pate Unknown Unknown HCl 300 mg HCl 300 mg 12-25 ,Deb capsule capsule dilTIAZem dilTIAZem No Garrett Unknown Unknown 120 mg 120 mg 06-20 ,Abiel tablet tablet Brandon gabapentin gabapentin 2018- No Garrett Unknown Unknown 300 mg 300 mg 06-20 ,Abiel capsule capsule Brandon lisinopril lisinopril No Garrett Unknown Unknown 20 mg 20 mg 06-20 ,Abiel tablet tablet Brandon multivitami multivitami No Garrett Unknown Unknown n capsule n capsule 06-20 ,Abiel Taylor clopidogrel clopidogrel No Garrett Unknown Unknown 75 mg 75 mg 06-20 ,Abiel tablet tablet Brandon gabapentin gabapentin No Garrett Unknown Unknown 100 mg 100 mg 06-20 ,Abiel capsule capsule Brandon glimepiride glimepiride No Garrett Unknown Unknown 4 mg tablet 4 mg tablet 06-20 Abiel UPTON carvedilol carvedilol 2017- No Garrett Unknown Unknown 6.25 mg 6.25 mg 06-20 ,Abiel tablet tablet Brandon Saphris Saphris 2018- No Kandy Unknown Unknown (black (black 06-20 ,Willian golden) 10 [place]) 10 mg mg sublingual sublingual tablet tablet pantoprazol pantoprazol No Garrett Unknown Unknown e 40 mg e 40 mg 06-20 ,Abiel tablet,lauryn tablet,lauryn Brandon yed release yed release raNITIdine raNITIdine No Garrett Unknown Unknown 300 mg 300 mg 06-20 ,Abiel tablet tablet Brandon Calcium 500 Calcium 500 2017- No Garrett Unknown Unknown With D 500 With D 500 06-20 Abiel UPTON (1,250 mg (1,250 Brandon mg)-400 mg)-400 unit tablet unit tablet Vitamin D3 Vitamin D3 2018- No Garrett Unknown Unknown 1,000 unit 1,000 unit 01-01 ,Abiel capsule capsule Brandon atorvastati atorvastati 2017- No Garrett Unknown Unknown n 80 mg n 80 mg 10-31 ,Abiel tablet tablet Brandon atorvastajudit atorvastati 2017-10 No Garrett Unknown Unknown n 80 mg n 80 [...] 24 hour hour carvedilol carvedilol 2017-10- No Garrett Unknown Unknown 6.25 mg 6.25 mg 07-02 ,Abiel tablet tablet Brandon Saphris Saphris 2018- No Kandy Unknown Unknown (black (black 06-27- ,Willian golden) 10 golden) 10 mg mg sublingual sublingual tablet tablet Calcium 500 Calcium 500 2018- No Garrett Unknown Unknown With D 500 With D 500 06-27 Abiel UPTON (1,250 mg (1,250 Brandon mg)-400 mg)-400 unit tablet unit tablet Topamax 50 Topamax 50 2017-10- No Kaitlynn Unknown Unknown mg tablet mg tablet 10-09 Geraldo UPTON Depakote ER Depakote ER No Kandy Unknown Unknown 500 mg 500 mg 10-23 ,Willian tablet,exte tablet,exte nded nded release release diphenhydrA diphenhydrA No Garrett Unknown Unknown MINE 25 mg MINE 25 mg - ,Abiel capsule capsule Brandon lithium lithium 2018- No Kandy Unknown Unknown carbonate carbonate 11-29 ,Willian 300 mg 300 mg tablet tablet Colace 100 Colace 100 2017-10- No Garrett Unknown Unknown mg capsule mg capsule 01-01 Abiel UPTON ipratropium ipratropium No Garrett Unknown Unknown bromide bromide 02-19 ,Abiel 0.02 % 0.02 % Brandon solution solution for for inhalation inhalation albuterol albuterol No Garrett Unknown Unknown sulfate 2.5 sulfate 2.5 - Abiel UPTON mg/3 mL mg/3 mL Brandon (0.083 %) (0.083 %) solution solution for for nebulizatio nebulizatio n n predniSONE predniSONE 2018- No Garrett Unknown Unknown 20 mg 20 mg 12-28 ,Abiel tablet tablet Brandon benzonatate benzonatate No Garrett Unknown Unknown 100 mg 100 mg 12-28 ,Abiel capsule capsule Brandon doxycycline doxycycline 2018- No Garrett Unknown Unknown hyclate 100 hyclate 100 12-28 [...] MD,Deb tablet tablet carvedilol carvedilol 2017-10 No Garrett Unknown Unknown 6.25 mg 6.25 mg 0- [...]
--- OUTSIDE RECORDS SUMMARY | 2019-12-01 11:53 | XMS REPORT ---
:1960 Author Organization [facility] Care Team Providers Name Role Phone Unavailable [...] d 06-20 10:30:00 (Andrés) 08:20: Walker 00 [id number] Cardio edema Cardiovasc Resolve 2018-08-16 Becca ular d 06-20 10:00:00 (Andrés) 08:20: Walker 00 [id number] Respiratory dyspnea Respirator Resolve 2019-02-05 Becca present y d 06-20 10:30:00 (Andrés) 08:20: Walker 00 [id number] Respiratory lung sounds Respirator Resolve 2019-02-05 Becca deficit y d 06-20 10:30:00 (Andrés) 08:20: Walker 00 [id number] Endo/Gage anti-coagul Endo/Gage Resolve 2018-07-31 Becca ation d 06-20 11:58:00 (Andrés) therapy 08:20: Walker [id number] Integument skin Integument Active Becca integrity 06-20 (Andrés) risk 08:20: Walker [id number] Elimination urinary Eliminatio Resolve 2018-08-16 Becca incontinenc n d 06-20 10:00:00 (Andrés) e 08:20: Walker [id number] Neuro confusion Neuro/Emot Active Becca present ion 06-20 (Andrés) 08:20: Walker [id number] Neuro anxiety Neuro/Emot Active Becca present ion 06-20 (Andrés) 08:20: Walker [id number] Neuro impaired Neuro/Emot Active Becca decision-ma ion 06-20 (Andrés) caty 08:20: Walker [id number] Activity ADL Activity Active Becca assistance 06-20 (Andrés) required 08:20: Walker [id number] Safety cannot be Safety Active Becca left alone 06-20 (Andrés) 08:20: Walker [id number] Safety fall risk Safety Resolve 2019-08-13 Becca factor d 06-20 10:55:00 (Andrés) present 08:20: Walker [id number] Safety risk for Safety Resolve 2019-08-13 Becca hospitaliza d 06-20 10:55:00 (Andrés) tion 08:20: Walker [id number] Medication oral med Meds Resolve 2018-07-31 Becca assistance d 06-20 11:58:00 (Andrés) required 08:20: Walker [id number] Medication potential Meds Resolve 2018-07-31 Becca clinically d 06-20 11:58:00 (Andrés) significant 08:20: Walker medication 00 [id number] issue Musculoskel requires Musculoske Resolve 2019-06-13 Becca etal human letal d 06-20 13:00:00 (Andrés) assist to 08:20: Walker leave home 00 [id number] Musculoskel transfer Musculoske Resolve 2019-06-13 Becca etal assistance letal d 06-20 13:00:00 [place] required 08:20: [id number] 00 Respiratory oxygen Respirator Resolve 2019-02-05 [place] treatments y d 06-26 10:30:00 [place] in home 10:28: h [id number] 00 Safety can be left Safety Active Loreta alone for 06-26 [place] only short 10:28: h [id number] periods 00 Elimination urinary Eliminatio Resolve 2017-102018-08-16 [place] frequency n d 10:00:00 [place] 11:58: h [id number] 00 Neuro knowledge/s Neuro/Emot Active 2017-10 [place] kill ion 0 [place] deficit: cg 11:58: h [id number] 00 Endo/Gage anti-coagul Endo/Gage Resolve 2017-102019-01-29 [place] ation d 1-15 12:45:00 [place] therapy 10:00: h [id number] 00 Neuro depressive Neuro/Emot Active 2017-10 [place] feelings ion 1-15 [place] present 10:00: h [id number] 00 Medication oral med Meds Resolve 2017-102019-02-05 [place] assistance d 1-15 10:30:00 [place] required 10:00: h [id number] 00 Medication injectable Meds Resolve 2017-102019-02-05 [place] med d -15 10:30:00 [facility] assistance 10:00: h [id number] required 00 Medication potential Meds Active 2017-10 [place]ta clinically -15 [place] significant 10:00: h [id number] medication 00 issue Endo/Gage knowledge/s Endo/Gage Resolve [...] treatment y 12-25 Emily in home 09:30: [id number] 00 Endo/Gage glucose Endo/Gage Resolve 2019-01-29 Cherrise tolerance d 12-25 12:45:00 Emily problem 09:30: [id number] Nutrition knowledge/s Nutrition Resolve 2019-01-29 Cherrise kill d 12-25 12:45:00 [place] deficit: pt 09:30: [id number] 00 Elimination urinary Eliminatio Resolve 2019-01-15 Cherrise incontinenc n d 12-25 11:25:00 Emily e 09:30: [id number] 00 Elimination urinary Eliminatio Resolve 2019-01-15 Cherrise urgency n d 12-25 11:25:00 [place] 09:30: [id number] 00 Endo/Gage insulin Endo/Gage Resolve 2019-02-05 Cherrise admn d 02 10:30:00 [place] dependence 09:55: [id number] 00 Endo/Gage glucose Endo/Gage Resolve 2019-02-05 Cherrise testing d 01-01 10:30:00 [place] dependence 09:55: [id number] 00 Elimination urinary Eliminatio Resolve 2019-01-15 Cherrise frequency n d 4 11:25:00 [place] 09:55: [id number] 00 Elimination recurring Eliminatio Resolve 2019-02-05 Cherrise UTI n d 01-01 10:30:00 Emily 09:55: [id number] 00 Respiratory knowledge/s Respirator Resolve 2019-01-08 Marlene [...] n 0-08 Nila e 09:15: [employer] 00 [id number] Elimination constipatio Eliminatio Active 2018-10 Marlene n [...] Tiffani n 10-27 Nila 09:00: [employer] 00 [id number] Safety risk for Safety Active 2018-10 Tiffani hospitaliza 10-27 Nila tion 09:00: [employer] 00 [id number] Safety knowledge/s Safety Active 2018-10 Marlene kill [...] 325 mg tablet tablet atorvastati atorvastati No Crwoe 20 mg Unknown n 20 mg n 20 mg Sarah [facility] tablet tablet Fiorinal-Co Fiorinal-Co No Crowe 2 caps Unknown deine #3 30 deine #3 30 Sarah [facility] mg-50 mg-50 mg-325 mg-325 mg-40 mg mg-40 mg capsule capsule carvedilol carvedilol 2017- No Rudyard Unknown Unknown 6.25 mg 6.25 mg 06-20 Abiel [facility] tablet tablet Brandon Vitamin D3 Vitamin D3 No Crowe 2000 Unknown 50 mcg 50 mcg Sarah [facility] units (2,000 (2,000 unit) unit) capsule capsule dilTIAZem dilTIAZem 2017- No Rudyard Unknown Unknown 120 mg 120 mg 06-20 Abiel [facility] tablet tablet Brandon Depakote Depakote No Crowe 1-2 Unknown 500 mg 500 mg Sarah [facility] tablet,aluryn tablet,lauryn yed release yed release Colace 100 Colace 100 2017- No [place]yard Unknown Unknown mg capsule mg capsule 06-20 Abiel [facility] furosemide furosemide No Crowe 20 mg Unknown 20 mg 20 mg Sarah [facility] tablet tablet gabapentin gabapentin 2017- No [place] Unknown Unknown 300 mg 300 mg 06-20 Abiel [facility] capsule capsule Brandon glimepiride glimepiride No Crowe 4 mg Unknown 4 mg tablet 4 mg tablet Sarah [facility] liraglutide liraglutide No Crowe 1 Unknown 0.6 mg/0.1 0.6 mg/0.1 Sarah [facility] injecti mL (18 mg/3 mL (18 mg/3 on mL) mL) subcutaneou subcutaneou s pen s pen injector injector lisinopril lisinopril 2017- No Rudyard Unknown Unknown 20 mg 20 mg 06-20 Abiel [facility] tablet tablet Brandon Oyster Oyster No Crowe 500 mg Unknown Shell Shell Sarah [facility] Calcium 500 Calcium 500 500 mg 500 mg calcium calcium (1,250 mg) (1,250 mg) tablet tablet multivitami multivitami 2017- No [place]yard Unknown Unknown n capsule n capsule 06-20 [...] Sarah [facility] capsule capsule oxygen oxygen No [place] Unknown Unknown 06-20 Abiel [facility] clopidogrel clopidogrel 2017- No [place] Unknown Unknown 75 mg 75 mg 06-20 Abiel [facility] tablet tablet Brandon desvenlafax desvenlafax 2017- No [place] Unknown Unknown ine ine 06-20 ,Abiel succinate succinate Brandon ER 100 mg ER 100 mg tablet,exte tablet,exte nded nded release 24 release 24 hr hr diphenhydrA diphenhydrA 2017- No Rudyard Unknown Unknown MINE 25 mg MINE 25 mg 06-20 Abiel [facility] capsule capsule Brandon Depakote ER Depakote ER 2017- No [place] Unknown Unknown 500 mg 500 mg 06-20 Abiel [facility] tablet,exte tablet,exte Brandon nded nded release release famotidine famotidine 2017- No Rudyard Unknown Unknown 40 mg 40 mg 06-20 Abiel [facility] tablet tablet Brandon gabapentin gabapentin 2017- No [place] Unknown Unknown 100 mg 100 mg 06-20 Abiel [facility] capsule capsule Brandon glimepiride glimepiride 2017- No [place] Unknown Unknown 4 mg tablet 4 mg tablet 06-20 Abiel [facility] Nystop Nystop No Rudyard Unknown Unknown 100,000 100,000 06-20 Abiel [facility] unit/gram unit/gram Brandon topical topical powder powder atorvastati atorvastati 2017- No [place] Unknown Unknown n 80 mg n 80 mg 06-20 Abiel [facility] tablet tablet Brandon carvedilol carvedilol 2017-10- No [place] Unknown Unknown 6.25 mg 6.25 mg 07-02 ,Abiel tablet tablet Brandon Colace 100 Colace 100 2017-10- No [place] Unknown Unknown mg capsule mg capsule 07-02 Abiel [facility] diphenhydrA diphenhydrA 2017-10- No [place]yard Unknown Unknown MINE 25 mg MINE 25 mg 12-14 ,Abiel capsule capsule Brandon Depakote ER Depakote ER 2017-10- No [place] Unknown Unknown 500 mg 500 mg 09-27 ,Abiel tablet,exte tablet,exte Brandon nded nded release release Topamax 50 Topamax 50 2017- Kandy Unknown Unknown mg tablet mg tablet 06-27 ,Willian Saphris Saphris 2017- No Kandy Unknown Unknown (black (black 06-27 ,Willian golden) 10 [place]) 10 mg mg sublingual sublingual tablet tablet pantoprazol pantoprazol 2017- No Rudyard Unknown Unknown e 40 mg e 40 mg 06-27 ,Abiel tablet,lauryn tablet,lauryn Brandon yed release yed release raNITIdine raNITIdine 2017- No Rudyard Unknown Unknown 300 mg 300 mg 06-27 Abiel [facility] tablet tablet Brandon Calcium 500 Calcium 500 2017- No [place] Unknown Unknown With D 500 With D 500 06-27 Abiel [facility] mg (1,250 mg (1,250 Brandon mg)-400 mg)-400 unit tablet unit tablet Vitamin D3 Vitamin D3 2018- No Rudyard Unknown Unknown 400 unit 400 unit 06-27 Abiel [facility] capsule capsule Brandon Victoza Victoza No Rudyard Unknown Unknown 2-Jieson 0.6 2-Jeison 0.6 06-27 Abiel [facility] mg/0.1 mL mg/0.1 mL Brandon (18 mg/3 (18 mg/3 mL) mL) subcutaneou subcutaneou s pen s pen injector injector atorvastati atorvastati 2017-10- No Rudyard Unknown Unknown n 80 mg n 80 [...] tablet 10-09 ,Geraldo doxycycline doxycycline 2017-10- No [place] Unknown Unknown monohydrate monohydrate 10-15 ,Abiel 100 mg 100 mg Brandon capsule capsule lithium lithium 2017-10- No Kandy Unknown Unknown carbonate carbonate 11-28 ,Willian 300 mg 300 mg tablet tablet Depakote ER Depakote ER 2017-10- No Kandy Unknown Unknown 500 mg 500 mg 11-28 ,Willian tablet,exte tablet,exte nded nded release release sennosides sennosides 2017-10 No Rudyard Unknown Unknown 8.6 8.6 11-28 ,Abiel mg-docusate [...] mg tablet tablet diphenhydrA diphenhydrA 2018- No Rudyard Unknown Unknown MINE 25 mg MINE 25 mg 12-14 ,Abiel capsule capsule Brandon clindamycin clindamycin 2018- No Pate Unknown Unknown HCl 300 mg HCl 300 mg 12-25 ,Deb capsule capsule dilTIAZem dilTIAZem No [place] Unknown Unknown 120 mg 120 mg 06-20 ,Abiel tablet tablet Brandon gabapentin gabapentin 2018- No Rudyard Unknown Unknown 300 mg 300 mg 06-20 ,Abiel capsule capsule Brandon lisinopril lisinopril No Rudyard Unknown Unknown 20 mg 20 mg 06-20 ,Abiel tablet tablet Brandon multivitami multivitami No Rudyard Unknown Unknown n capsule n capsule 06-20 ,Abiel Taylor clopidogrel clopidogrel No Rudyard Unknown Unknown 75 mg 75 mg 06-20 ,Abiel tablet tablet Brandon gabapentin gabapentin No [place] Unknown Unknown 100 mg 100 mg 06-20 ,Abiel capsule capsule Brandon glimepiride glimepiride No [place] Unknown Unknown 4 mg tablet 4 mg tablet 06-20 Abiel [facility] carvedilol carvedilol 2017- No [place] Unknown Unknown 6.25 mg 6.25 mg 06-20 ,Abiel tablet tablet Brandon Saphris Saphris 2018- No Kandy Unknown Unknown (black (black 06-20 ,Willian golden) 10 [place]) 10 mg mg sublingual sublingual tablet tablet pantoprazol pantoprazol No Rudyard Unknown Unknown e 40 mg e 40 mg 06-20 ,Abiel tablet,lauryn tablet,lauryn Brandon yed release yed release raNITIdine raNITIdine No [place]yard Unknown Unknown 300 mg 300 mg 06-20 ,Abiel tablet tablet Brandon Calcium 500 Calcium 500 2017- No [place] Unknown Unknown With D 500 With D 500 06-20 Abiel [facility] (1,250 mg (1,250 Brandon mg)-400 mg)-400 unit tablet unit tablet Vitamin D3 Vitamin D3 2018- No Rudyard Unknown Unknown 1,000 unit 1,000 unit 01-01 ,Abiel capsule capsule Brandon atorvastati atorvastati 2017- No Rudyard Unknown Unknown n 80 mg n 80 mg 10-31 ,Abiel tablet tablet Brandon atorvastajudit atorvastati 2017-10 No Rudyard Unknown Unknown n 80 mg n 80 [...] 24 hour hour carvedilol carvedilol 2017-10- No [place]yard Unknown Unknown 6.25 mg 6.25 mg 07-02 ,Abiel tablet tablet Brandon Saphris Saphris 2018- No Kandy Unknown Unknown (black (black 06-27- ,Willian golden) 10 golden) 10 mg mg sublingual sublingual tablet tablet Calcium 500 Calcium 500 2018- No Rudyard Unknown Unknown With D 500 With D 500 06-27 Abiel [facility] (1,250 mg (1,250 Brandon mg)-400 mg)-400 unit tablet unit tablet Topamax 50 Topamax 50 2017-10- No Kaitlynn Unknown Unknown mg tablet mg tablet 10-09 Geraldo [facility] Depakote ER Depakote ER No Kandy Unknown Unknown 500 mg 500 mg 10-23 ,Willian tablet,exte tablet,exte nded nded release release diphenhydrA diphenhydrA No [place]yard Unknown Unknown MINE 25 mg MINE 25 mg - ,Abiel capsule capsule Brandon lithium lithium 2018- No Kandy Unknown Unknown carbonate carbonate 11-29 ,Willian 300 mg 300 mg tablet tablet Colace 100 Colace 100 2017-10- No [place] Unknown Unknown mg capsule mg capsule 01-01 Abiel [facility] ipratropium ipratropium No [place] Unknown Unknown bromide bromide 02-19 ,Abiel 0.02 % 0.02 % Brandon solution solution for for inhalation inhalation albuterol albuterol No [place] Unknown Unknown sulfate 2.5 sulfate 2.5 - Abiel [facility] mg/3 mL mg/3 mL Brandon (0.083 %) (0.083 %) solution solution for for nebulizatio nebulizatio n n predniSONE predniSONE 2018- No Rudyard Unknown Unknown 20 mg 20 mg 12-28 ,Abiel tablet tablet Brandon benzonatate benzonatate No [place] Unknown Unknown 100 mg 100 mg 12-28 ,Abiel capsule capsule Brandon doxycycline doxycycline 2018- No [place] Unknown Unknown hyclate 100 hyclate 100 12-28 [...] MD,Deb tablet tablet carvedilol carvedilol 2017-10 No Rudyard Unknown Unknown 6.25 mg 6.25 mg 0- [...]
--- OUTSIDE RECORDS SUMMARY | 2019-12-01 11:53 | XMS REPORT ---
:1960 Author Organization [facility] Care Team Providers Name Role Phone Unavailable [...] d 06-20 10:30:00 (Andrés) 08:20: Walker 00 [id number] Cardio edema Cardiovasc Resolve 2018-08-16 Becca ular d 06-20 10:00:00 (Andrés) 08:20: Walker 00 [id number] Respiratory dyspnea Respirator Resolve 2019-02-05 Becca present y d 06-20 10:30:00 (Andrés) 08:20: Walker 00 [id number] Respiratory lung sounds Respirator Resolve 2019-02-05 Becca deficit y d 06-20 10:30:00 (Andrés) 08:20: Walker 00 [id number] Endo/Gage anti-coagul Endo/Gage Resolve 2018-07-31 Becca ation d 06-20 11:58:00 (Andrés) therapy 08:20: Walker [id number] Integument skin Integument Active Becca integrity 06-20 (Andrés) risk 08:20: Walker [id number] Elimination urinary Eliminatio Resolve 2018-08-16 Becca incontinenc n d 06-20 10:00:00 (Nadrés) e 08:20: Walker [id number] Neuro confusion Neuro/Emot Active Becca present ion 06-20 (Andrés) 08:20: Walker [id number] Neuro anxiety Neuro/Emot Active Becca present ion 06-20 (Andrés) 08:20: Walker [id number] Neuro impaired Neuro/Emot Active Becca decision-ma ion 06-20 (Andrés) caty 08:20: Walker [id number] Activity ADL Activity Active Becca assistance 06-20 (Andrés) required 08:20: Walker [id number] Safety cannot be Safety Active Becca left alone 06-20 (Andrés) 08:20: Walker [id number] Safety fall risk Safety Resolve 2019-08-13 Becca factor d 06-20 10:55:00 (Andrés) present 08:20: Walker [id number] Safety risk for Safety Resolve 2019-08-13 Becca hospitaliza d 06-20 10:55:00 (Andrés) tion 08:20: Walker [id number] Medication oral med Meds Resolve 2018-07-31 Becca assistance d 06-20 11:58:00 (Andrés) required 08:20: Walker [id number] Medication potential Meds Resolve 2018-07-31 Becca clinically d 06-20 11:58:00 (Andrés) significant 08:20: Walker medication 00 [id number] issue Musculoskel requires Musculoske Resolve 2019-06-13 Becca etal human letal d 06-20 13:00:00 (Andrés) assist to 08:20: Walker leave home 00 [id number] Musculoskel transfer Musculoske Resolve 2019-06-13 Becca etal assistance letal d 06-20 13:00:00 Guid[place] required 08:20: [id number] Respiratory oxygen Respirator Resolve 2019-02-05 Loreta treatments y d 06-26 10:30:00 [place] in home 10:28: h [id number] 00 Safety can be left Safety Active Loreta alone for 06-26 [place] only short 10:28: h [id number] periods 00 Elimination urinary Eliminatio Resolve 2017-102018-08-16 Loreta frequency n d 10:00:00 [place] 11:58: h [id number] 00 Neuro knowledge/s Neuro/Emot Active 2017-10 Loreta kill ion 0 [place] deficit: cg 11:58: h [id number] 00 Endo/Gage anti-coagul Endo/Gage Resolve 2017-102019-01-29 Loreta ation d 1-15 12:45:00 [place] therapy 10:00: h [id number] 00 Neuro depressive Neuro/Emot Active 2017-10 Loreta feelings ion 1-15 [place] present 10:00: h [id number] 00 Medication oral med Meds Resolve 2017-102019-02-05 Loreta assistance d 1-15 10:30:00 [facility] required 10:00: h [id number] 00 Medication injectable Meds Resolve 2017-102019-02-05 Loreta med d -15 10:30:00 [facility] assistance 10:00: h [id number] required 00 Medication potential Meds Active 2017-10 Loreta clinically -15 [place] significant 10:00: h [id number] medication 00 issue Endo/Gage knowledge/s Endo/Gage Resolve [...] treatment y 12-25 Emily in home 09:30: [id number] Endo/Gage glucose Endo/Gage Resolve 2019-01-29 Cherrise tolerance d 12-25 12:45:00 Emily problem 09:30: [id number] 00 Nutrition knowledge/s Nutrition Resolve 2019-01-29 Cherrise kill d 12-25 12:45:00 Tererro deficit: pt 09:30: [id number] 00 Elimination urinary Eliminatio Resolve 2019-01-15 Cherrise incontinenc n d 12-25 11:25:00 Emily e 09:30: [id number] 00 Elimination urinary Eliminatio Resolve 2019-01-15 Cherrise urgency n d 12-25 11:25:00 Tererro 09:30: [id number] 00 Endo/Gage insulin Endo/Gage Resolve 2019-02-05 Cherrise admn d 02 10:30:00 Tererro dependence 09:55: [id number] 00 Endo/Gage glucose Endo/Gage Resolve 2019-02-05 Cherrise testing d 01-01 10:30:00 Tererro dependence 09:55: [id number] 00 Elimination urinary Eliminatio Resolve 2019-01-15 Cherrise frequency n d 4 11:25:00 Tererro 09:55: [id number] 00 Elimination recurring Eliminatio Resolve 2019-02-05 Cherrise UTI n d 01-01 10:30:00 Emily 09:55: [id number] Respiratory knowledge/s Respirator Resolve 2019-01-08 Marlene [...] n 0-08 Nila e 09:15: [employer] 00 [id number] Elimination constipatio Eliminatio Active 2018-10 Marlene n [...] Tiffani n 10-27 Nila 09:00: [employer] 00 [id number] Safety risk for Safety Active 2018-10 Tiffani hospitaliza 10-27 Nila tion 09:00: [employer] 00 [id number] Safety knowledge/s Safety Active 2018-10 Marlene kill [...] mg capsule capsule carvedilol carvedilol 2017- No Noonan Unknown Unknown 6.25 mg 6.25 mg 06-20 Abiel UPTON tablet tablet Brandon Vitamin D3 Vitamin D3 No Crowe 2000 Unknown 50 mcg 50 mcg Sarah UPTON units (2,000 (2,000 unit) unit) capsule capsule dilTIAZem dilTIAZem 2017- No Noonan Unknown Unknown 120 mg 120 mg 06-20 Abiel UPTON tablet tablet Brandon Depakote Depakote No Crowe 1-2 Unknown 500 mg 500 mg Sarah UPTON tablet,lauryn tablet,lauryn yed release yed release Colace 100 Colace 100 2017- No Noonan Unknown Unknown mg capsule mg capsule 06-20 Abiel UPTON furosemide furosemide No Crowe 20 mg Unknown 20 mg 20 mg Sarah UPTON tablet tablet gabapentin gabapentin 2017- No Noonan Unknown Unknown 300 mg 300 mg 06-20 Abiel UPTON capsule capsule Brandon glimepiride glimepiride No Crowe 4 mg Unknown 4 mg tablet 4 mg tablet Sarah UPTON liraglutide liraglutide No Crowe 1 Unknown 0.6 mg/0.1 0.6 mg/0.1 Sarah UPTON injecti mL (18 mg/3 mL (18 mg/3 on mL) mL) subcutaneou subcutaneou s pen s pen injector injector lisinopril lisinopril 2017- No Noonan Unknown Unknown 20 mg 20 mg 06-20 Abiel UPTON tablet tablet Brandon Oyster Oyster No Crowe 500 mg Unknown Shell Shell Sarah UPTON Calcium 500 Calcium 500 500 mg 500 mg calcium calcium (1,250 mg) (1,250 mg) tablet tablet multivitami multivitami 2017- No Noonan Unknown Unknown n capsule n capsule 06-20 [...] Sarah UPTON capsule capsule oxygen oxygen No Noonan Unknown Unknown 06-20 Abiel UPTON clopidogrel clopidogrel 2017- No Noonan Unknown Unknown 75 mg 75 mg 06-20 Abiel UPTON tablet tablet Brandon desvenlafax desvenlafax 2017- No Noonan Unknown Unknown ine ine 06-20 ,Abiel succinate succinate Brandon ER 100 mg ER 100 mg tablet,exte tablet,exte nded nded release 24 release 24 hr hr diphenhydrA diphenhydrA 2017- No Noonan Unknown Unknown MINE 25 mg MINE 25 mg 06-20 Abiel UPTON capsule capsule Brandon Depakote ER Depakote ER 2017- No Noonan Unknown Unknown 500 mg 500 mg 06-20 Abiel UPTON tablet,exte tablet,exte Brandon nded nded release release famotidine famotidine 2017- No Noonan Unknown Unknown 40 mg 40 mg 06-20 Abiel UPTON tablet tablet Brandon gabapentin gabapentin 2017- No Noonan Unknown Unknown 100 mg 100 mg 06-20 Abiel UPTON capsule capsule Brandon glimepiride glimepiride 2017- No [place]onan Unknown Unknown 4 mg tablet 4 mg tablet 06-20 Abiel UPTON Nystop Nystop No Noonan Unknown Unknown 100,000 100,000 06-20 Abiel UPTON unit/gram unit/gram Brandon topical topical powder powder atorvastati atorvastati 2017- No Noonan Unknown Unknown n 80 mg n 80 mg 06-20 Abiel UPTON tablet tablet Brandon carvedilol carvedilol 2017-10- No Noonan Unknown Unknown 6.25 mg 6.25 mg 07-02 ,Abiel tablet tablet Brandon Colace 100 Colace 100 2017-10- No Noonan Unknown Unknown mg capsule mg capsule 07-02 Abiel UPTON diphenhydrA diphenhydrA 2017-10- No Noonan Unknown Unknown MINE 25 mg MINE 25 mg 12-14 ,Abiel capsule capsule Brandon Depakote ER Depakote ER 2017-10- No Noonan Unknown Unknown 500 mg 500 mg 09-27 ,Abiel tablet,exte tablet,exte Brandon nded nded release release Topamax 50 Topamax 50 2017- Kandy Unknown Unknown mg tablet mg tablet 06-27 ,Willian Saphris Saphris 2017- No Kandy Unknown Unknown (black (black 06-27 ,Willian golden) 10 [place]) 10 mg mg sublingual sublingual tablet tablet pantoprazol pantoprazol 2017- No Noonan Unknown Unknown e 40 mg e 40 mg 06-27 ,Abiel tablet,lauryn tablet,lauryn Brandon yed release yed release raNITIdine raNITIdine 2017- No Noonan Unknown Unknown 300 mg 300 mg 06-27 Abiel UPTON tablet tablet Brandon Calcium 500 Calcium 500 2017- No Noonan Unknown Unknown With D 500 With D 500 06-27 Abiel UPTON mg (1,250 mg (1,250 Brandon mg)-400 mg)-400 unit tablet unit tablet Vitamin D3 Vitamin D3 2018- No Noonan Unknown Unknown 400 unit 400 unit 06-27 Abiel UPTON capsule capsule Brandon Victoza Victoza No Noonan Unknown Unknown 2-Jeison 0.6 2-Jeison 0.6 06-27 Abiel UPTON mg/0.1 mL mg/0.1 mL Brandon (18 mg/3 (18 mg/3 mL) mL) subcutaneou subcutaneou s pen s pen injector injector atorvastati atorvastati 2017-10- No Noonan Unknown Unknown n 80 mg n 80 [...] tablet 10-09 ,Geraldo doxycycline doxycycline 2017-10- No Noonan Unknown Unknown monohydrate monohydrate 10-15 ,Abiel 100 mg 100 mg Brandon capsule capsule lithium lithium 2017-10- No Kandy Unknown Unknown carbonate carbonate 11-28 ,Willian 300 mg 300 mg tablet tablet Depakote ER Depakote ER 2017-10- No Kandy Unknown Unknown 500 mg 500 mg 11-28 ,Willian tablet,exte tablet,exte nded nded release release sennosides sennosides 2017-10 No Noonan Unknown Unknown 8.6 8.6 11-28 ,Abiel mg-docusate [...] mg tablet tablet diphenhydrA diphenhydrA 2018- No Noonan Unknown Unknown MINE 25 mg MINE 25 mg 12-14 ,Abiel capsule capsule Brandon clindamycin clindamycin 2018- No Pate Unknown Unknown HCl 300 mg HCl 300 mg 12-25 ,Deb capsule capsule dilTIAZem dilTIAZem No Noonan Unknown Unknown 120 mg 120 mg 06-20 ,Abiel tablet tablet Brandon gabapentin gabapentin 2018- No Noonan Unknown Unknown 300 mg 300 mg 06-20 ,Abiel capsule capsule Brandon lisinopril lisinopril No Noonan Unknown Unknown 20 mg 20 mg 06-20 ,Abiel tablet tablet Brandon multivitami multivitami No Noonan Unknown Unknown n capsule n capsule 06-20 ,Abiel Taylor clopidogrel clopidogrel No Noonan Unknown Unknown 75 mg 75 mg 06-20 ,Abiel tablet tablet Brandon gabapentin gabapentin No Noonan Unknown Unknown 100 mg 100 mg 06-20 ,Abiel capsule capsule Brandon glimepiride glimepiride No Noonan Unknown Unknown 4 mg tablet 4 mg tablet 06-20 Abiel UPTON carvedilol carvedilol 2017- No Noonan Unknown Unknown 6.25 mg 6.25 mg 06-20 ,Abiel tablet tablet Brandon Saphris Saphris 2018- No Kandy Unknown Unknown (black (black 06-20 ,Willian golden) 10 [place]) 10 mg mg sublingual sublingual tablet tablet pantoprazol pantoprazol No Noonan Unknown Unknown e 40 mg e 40 mg 06-20 ,Abiel tablet,lauryn tablet,lauryn Brandon yed release yed release raNITIdine raNITIdine No Noonan Unknown Unknown 300 mg 300 mg 06-20 ,Abiel tablet tablet Brandon Calcium 500 Calcium 500 2017- No Noonan Unknown Unknown With D 500 With D 500 06-20 Abiel UPTON (1,250 mg (1,250 Brandon mg)-400 mg)-400 unit tablet unit tablet Vitamin D3 Vitamin D3 2018- No Noonan Unknown Unknown 1,000 unit 1,000 unit 01-01 ,Abiel capsule capsule Brandon atorvastati atorvastati 2017- No Noonan Unknown Unknown n 80 mg n 80 mg 10-31 ,Abiel tablet tablet Brandon atorvastajudit atorvastati 2017-10 No Noonan Unknown Unknown n 80 mg n 80 [...] 24 hour hour carvedilol carvedilol 2017-10- No Noonan Unknown Unknown 6.25 mg 6.25 mg 07-02 ,Abiel tablet tablet Brandon Saphris Saphris 2018- No Kandy Unknown Unknown (black (black 06-27- ,Willian golden) 10 golden) 10 mg mg sublingual sublingual tablet tablet Calcium 500 Calcium 500 2018- No Noonan Unknown Unknown With D 500 With D 500 06-27 Abiel UPTON (1,250 mg (1,250 Brandon mg)-400 mg)-400 unit tablet unit tablet Topamax 50 Topamax 50 2017-10- No Kaitlynn Unknown Unknown mg tablet mg tablet 10-09 Geraldo UPTON Depakote ER Depakote ER No Kandy Unknown Unknown 500 mg 500 mg 10-23 ,Willian tablet,exte tablet,exte nded nded release release diphenhydrA diphenhydrA No [place]onan Unknown Unknown MINE 25 mg MINE 25 mg - ,Abiel capsule capsule Brandon lithium lithium 2018- No Kandy Unknown Unknown carbonate carbonate 11-29 ,Willian 300 mg 300 mg tablet tablet Colace 100 Colace 100 2017-10- No Noonan Unknown Unknown mg capsule mg capsule 01-01 Abiel UPTON ipratropium ipratropium No [place]onan Unknown Unknown bromide bromide 02-19 ,Abiel 0.02 % 0.02 % Brandon solution solution for for inhalation inhalation albuterol albuterol No Noonan Unknown Unknown sulfate 2.5 sulfate 2.5 - Abiel UPTON mg/3 mL mg/3 mL Brandon (0.083 %) (0.083 %) solution solution for for nebulizatio nebulizatio n n predniSONE predniSONE 2018- No Noonan Unknown Unknown 20 mg 20 mg 12-28 ,Abiel tablet tablet Brandon benzonatate benzonatate No Noonan Unknown Unknown 100 mg 100 mg 12-28 ,Abiel capsule capsule Brandon doxycycline doxycycline 2018- No Noonan Unknown Unknown hyclate 100 hyclate 100 12-28 [...] MD,Deb tablet tablet carvedilol carvedilol 2017-10 No Noonan Unknown Unknown 6.25 mg 6.25 mg 0- [...]
--- OUTSIDE RECORDS SUMMARY | 2019-12-01 11:53 | XMS REPORT | Continuity of Care Document ---
:1960 External Reference #:[id number] Author Name Monique Juarez MD (transmitted by agent of provider Dixie Centeno) Address [address], [place] [address] Care Team Providers Name Role Phone Mehran Combs MD - Internal Care Team Information Food Production Associate [phone] Medicine Alex Vo MD - Endocrinology, Care Team Information Food Production Associate [phone] Diabetes & Metabolism Vic Maddox NP - Family Care Team Information Food Production Associate [phone] Boris Shaw MD - Care Team Information Food Production Associate [phone] Otolaryngology Ashwin Michael MD - Obstetrics & Care Team Information Food Production Associate Gynecology Deb Pate M.D. - Family Medicine Care Team Information Food Production Associate Problems Active Problems Provider Date [place] disease Ang Zelaya M.D.,FACP Onset: 12/04/2015 Sleep apnea Geraldo Calderón MD Onset: 05/24/2016 Type 2 diabetes mellitus Annette Sin, N.P. Onset: 08/01/2012 Persistent microalbuminuria associated Ang Zelaya M.D.,FACP Onset: with type II diabetes mellitus Essential hypertension Annette Sin, N.P. Onset: 08/01/2012 Hyperlipidemia Annette Sin, N.P. Onset: 08/01/2012 Transient cerebral ischemia Annette [...] Former Cigarette Smoker Unknown Smoking Status Reviewed: 10/17/19 Former Cigarette Smoker ETOH Use 02/09/2018 Denies [...] times daily 200units Monique Juarez MD 10/16/2019 [place] 32GX1/4" 32G X 6 mm [facility] Freestyle Lite Test use as directed, 100units E11.65 Sarai Rush 03/2019 Strip test twice a MD day. Aimovig inject sq once a 1ml Geraldo Calderón 08/07/2019 70mg/ml shaquille UPTON Solution Auto-Inject Transport Chair use daily for 1units J44.9 Deb Pate MD 07/23/2019 [facility] transport I67.5 M62.81 Lantus Solostar 20 u [...] 1 tab by mouth x 2tabs E11.9 Deb Pate MD 02/07/2019 150mg Tablets 1, may repeat [...] tab by mouth at 90tabs Raf ScottEllyn [place], 08/08/2018 50mg Tablets night M.DEllyn Ansley take 2 tabs at 120caps Abigail Deandre, 06/28/2018 25mg Capsules bedtime as needed MJose A Commode Bedside large wide commode 1units I25.10 Ang Zelaya, 2017 Misc to be used daily Omer,FACP J44.9 Shingrix 0.5 milliliters 2units Ang Zelaya, 06/01/2018 50mcg intramuscular now and Omer,FACP Suspension Rec 2-3 months later repeat Plavix 1 by mouth every day 30tabs Deb Pate MD 03/01/2018 75mg Tablets Hoveround PMD/Power use daily as directed 1units I50.41 Ang Zelaya, 01/05/2018 Mobility Device Omre,FACP I67.5 J44.9 Protonix 1 by mouth every [...] Pate MD 08/14/2014 Lancets directed DX E11.9 [facility] Freestyle Lite Test test blood sugar up [...] Maddox, GERBER 11/12/2014 Injection PPD Nurse Visit [place] 11/04/2013 Injection PPD Annette Sin, 10/31/2012 Injection N.P. Immunizations CPT Code Status Date Vaccine Lot # [id number] Given 06/14/2018 Influenza Virus Vaccine, Quadrivalent, Split, Preservative Free [id number] Given 06/05/2017 Influenza Virus Vaccine, Quadrivalent, Split, Preservative Free [id number] Given 07/21/2016 Fluzone Vaccine [id number] Given 06/22/2016 Influenza Virus Vaccine, Quadrivalent, Split, [id number] Preservative Free 53486 Given 09/02/2015 Hepatitis B Vaccine Adult Dosage [id number] 05512 Given 09/02/2015 Pneumonia Vaccine [id number] 10283 Given 06/23/2015 Influenza Virus Vaccine, Quadrivalent, Split, [id number] Preservative Free 28599 Given 11/12/2014 Tdap - Tetanus/Diptheria/Acellular Pertussis [id number] 06676 Given 08/12/2014 Pneumococcal Conjugate Vaccine 13 Valent For [id number] Intramuscular Use 18929 Given 07/05/2014 Influenza Virus Vaccine, Quadrivalent, Split, [id number] Preservative Free 54565 Given 01/17/2014 Hepatitis B Vaccine Adult Dosage [id number] 49993 Given 05/10/2013 Hepatitis B Vaccine Adult Dosage [id number] Vital Signs Date Vital Result Comment 10/17/2019 10:36am Height 67 inches 5'7" Weight 314.00 lb Heart Rate 82 /min BP Systolic Sitting 128 mmHg BP Diastolic Sitting 62 mmHg Body Temperature 97.8 F O2 % BldC Oximetry 94 % on 2L O2 BMI (Body Mass Index) 49.2 kg/m2 09/16/2019 8:35am Height 67 inches 5'7" Weight 322.00 lb Heart Rate 82 /min BP Systolic 166 mmHg manual BP Diastolic 80 mmHg manual BP Systolic Sitting 170 mmHg machine BP Diastolic Sitting 83 mmHg machine Body Temperature 97.5 F O2 % BldC Oximetry 95 % on 2L O2 BMI (Body Mass Index) 50.4 kg/m2 Results Test Acquired Facility Test Result H/L Range Note Date Laboratory test 10/17/2019 Customer Support Representative In House Hemoglobin A1c 7.8 High 5-7 finding Laboratory test 09/11/2019 [facility] Troponin-I 0.00 ng/mL < 0.[address] (TnI) [place] [address] [phone] Laboratory test 09/11/2019 [facility] Partial 32.4 Normal 26.0 -38.[address] [place] [address] PTT [phone] B-Type Natriuretic Peptide BNP 20 pg/mL <=100 Magnesium 1.8 mg/dL Low 1.9-2.7 Creatine Kinase(CK) 47 U/L Normal 10-223 CKMB 09/11/2019 [facility] CKMB 1.5 ng/mL Normal 0.6-6.[address] ng/mL [place], [place] [id number] [phone] Laboratory test 09/11/2019 [facility] TSH 1.82 Normal 0.34- 5.[address] (Thyroid mcIU/[place] [address] Stim Horm) [phone] Urinalysis 09/11/2019 [facility] Urine Yellow Profile [address] [place] [address] [phone] Urine Appearance Cloudy Urine Specific [place] 1.025 Normal 1.010-1.030 Urine pH 5.0 Normal 5-9 Urine Urobilinogen Negative Negative Urine Ketones Trace Abnormal Negative Urine Protein Negative Negative Urine Leukocytes Negative Negative Urine Blood Negative Negative Urine Nitrite Negative Negative Urine Bilirubin Negative Negative Urine Glucose 3+(>=500 mg/dL) Abnormal Negative Inr/Protime 09/11/2019 [facility] Inr 1.10 High 0.82-1.[address] [place] [address] [phone] Comp Metabolic 09/11/2019 [facility] Sodium 139 mmol/L Normal 135-[address] [place] [address] [phone] Potassium 4.4 mmol/L Normal 3.5-5.0 Chloride 105 [...] Egfr 88.5 >60 3 Laboratory test 09/11/2019 [facility] Troponin-I 0.00 <0.03 4 finding 101 (TnI) ng/[place] [address] [phone] CBC Auto Diff 09/11/2019 [facility] White Blood 7.8 Normal 3.5 -10.[address] Count 10^3/[place] [address] [phone] Red Blood Count 5.16 10^6/uL High 3.70-4.87 [...] Blood Cells % 0.2 Laboratory test 07/09/2019 [facility] Support Representative In House Influenza A/B Rapid Negative A-B finding Lipid Profile 06/26/2019 [facility] Triglycerides 282 mg/dL 5, 6 (Trig/Chol/HDL) [address] [place] [address] [phone] Cholesterol 162 mg/dL 7 HDL Cholesterol 42.0 mg/dL 8 LDL Cholesterol 64 mg/dL 9 Laboratory test 06/26/2019 [facility] Hemoglobin A1c 7.9 % High 4.0-5.6 10 finding 101 [facility] (Glyco HGB) [place] [address] [phone] 1 Troponin-I testing on Plasma Separator Tubes (PST) has a known false positive rate of 0.20-0.40%. All positive troponins reflex immediately to secondary confirmatory testing. Using the mobli DxI 800 Access Immunoassay systems, the 99th [...] immediately to secondary confirmatory testing. Using the mobli DxI 800 Access Immunoassay systems, the 99th [...] in selective patients <6.0%. Please refer to [place] [employer] diabetic care guidelines for further information. Procedures Date Code Description Status 09/12/2019 60827 Treadmill Interp/Report Only Completed 09/12/2019 24963 Stress Test Supervsn W/Out I/R Completed 09/12/2019 81078 EKG, Interpretation Only Completed 09/03/2019 041003066 Diabetic Foot Exam Completed 08/26/2019 [id number] Diabetic Foot Exam Completed 04/29/2019 [id number] Mammogram Completed 09/27/2018 [id number] Diabetic Retinal Eye Exam Completed 02/07/2018 [id number] Diabetic Foot Exam Completed 03/14/2017 [id number] Mammogram Completed 11/16/2016 [id number] Diabetic Retinal Eye Exam Completed 09/18/2015 [id number] Diabetic Retinal Eye Exam Completed 11/05/2014 [id number] Mammogram Completed 07/03/2014 [id number] Diabetic Retinal Eye Exam Completed 12/09/2013 [id number] Colonoscopy Completed 11/04/2013 [id number] Mammogram Completed 05/03/2013 [id number] Diabetic Retinal Eye Exam Completed Medical Devices Description No Information Available Encounters Type Date Location Provider Dx Diagnosis Office Visit 09/16/2019 [facility] Internal Monique Juarez MD R07.89 Other chest pain 8:40a Medicine - Ccmob R05 Cough E11.65 Type 2 diabetes mellitus with hyperglycemia I10 Essential (primary) hypertension Z86.73 Prsnl hx of TIA (TIA), and cereb infrc w/o resid deficits Office Visit 09/13/2019 [facility] Yana Loya, R07.9 Chest pain, 10:43a Assoc,pc M.DEllyn unspecified Hospitalists E11.9 Type 2 diabetes mellitus without complications I10 Essential (primary) hypertension E66.01 Morbid (severe) obesity due to excess calories Z68.43 Body mass index (BMI) 50.0-59.9, adult Office Visit 09/11/2019 10:42a [facility] Yana Loya, R07.89 Other chest Assoc,susan Tello pain Hospitalists R53.1 Weakness G47.33 Obstructive sleep apnea (adult) (pediatric) J96.11 Chronic respiratory failure with hypoxia E11.9 Type 2 diabetes mellitus without complications Office Visit 08/07/2019 [facility] Geraldo Calderón, I67.5 [place] 9:15a Clinic MD disease G43.019 Migraine w/o aura, intractable, without status migrainosus G44.229 Chronic tension-type headache, not intractable Office Visit 07/12/2019 9:40a [facility] Internal Deb Pate, E11.65 Type 2 diabetes Medicine - MD mellitus with Ccmob hyperglycemia I10 Essential (primary) hypertension J06.9 Acute upper respiratory infection, unspecified Office Visit 07/09/2019 3:20p [facility] Internal Deb Pate J06.9 Acute upper Medicine - Ccmob respiratory infection, unspecified Office Visit 05/24/2019 1:15p [place], M25.551 Pain in right hip [facility] M16.11 Unilateral primary osteoarthritis, right hip M70.61 Trochanteric bursitis, right hip Office Visit 05/03/2019 9:15a [facility] J44.9 [facility] Stephane obstructive Customer Support Representative pulmonary disease, unspecified G47.33 Obstructive sleep apnea (adult) (pediatric) Assessments Date Code Description Provider 10/17/2019 E11.65 Type 2 diabetes mellitus with Monique Juarez MD hyperglycemia 10/17/2019 I10 Essential (primary) hypertension Monique Juarez MD 10/17/2019 K59.00 Constipation, unspecified Monique Juarez MD 10/17/2019 Z68.43 Body mass index (BMI) 50.0-59.9, [...] electrocardiogram [ECG] Amos Beckman MD, FACC, [EKG] 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 09/12/2019 J44.9 [...] Calderón MD (pediatric) Plan of Treatment Future Appointment(s):01/16/2020 10:40 am - Monique Juarez MD at [facility] Internal Medicine - [facility]12/12/2019 10:00 am - Geraldo Calderón MD at [facility] Idgqqj1010/23/2019 10:45 am - Jessica Calderón MD at [facility]10/17/2019 - Monique Juarez MDE11.65 Type 2 diabetes mellitus with hyperglycemiaNew Labs:Urine Microalbumin Random, Ordered: 10/17/19Comments: Please increase the dose of your insulin to 20U at nightPlease monitor any report any report of low sugarFollow up:F/U 3 [id number] Essential (primary) hypertensionComments:Your blood pressure is fine. Continue the same bzalmlogozE99.00 Constipation, unspecifiedComments:I have refilled your rtbaiQ92.43 Body mass index (BMI) 50.0-59.9, adult Functional Status Description No Information Available Mental Status Description No Information Available Referrals Description No Information Available
--- OUTSIDE RECORDS SUMMARY | 2019-12-01 11:54 | XMS REPORT ---
:1960 Author Organization [facility] Care Team Providers Name Role Phone [...] d 06-20 10:30:00 (Andrés) 08:20: Walker 00 [id number] Cardio edema Cardiovasc Resolve 2018-08-16 Becca ular d 06-20 10:00:00 (Andrés) 08:20: Walker 00 [id number] Respiratory dyspnea Respirator Resolve 2019-02-05 Becca present y d 06-20 10:30:00 (Andrés) 08:20: Walker 00 [id number] Respiratory lung sounds Respirator Resolve 2019-02-05 Becca deficit y d 06-20 10:30:00 (Andrés) 08:20: Walker 00 [id number] Endo/Gage anti-coagul Endo/Gage Resolve 2018-07-31 Becca ation d 06-20 11:58:00 (Andrés) therapy 08:20: Walker [id number] Integument skin Integument Active Becca integrity 06-20 (Andrés) risk 08:20: Walker [id number] Elimination urinary Eliminatio Resolve 2018-08-16 Becca incontinenc n d 06-20 10:00:00 (Andrés) e 08:20: Walker [id number] Neuro confusion Neuro/Emot Active Becca present ion 06-20 (Andrés) 08:20: Walker [id number] Neuro anxiety Neuro/Emot Active Becca present ion 06-20 (Andrés) 08:20: Walker [id number] Neuro impaired Neuro/Emot Active Becca decision-ma ion 06-20 (Andrés) caty 08:20: Walker [id number] Activity ADL Activity Active Becca assistance 06-20 (Andrés) required 08:20: Walker [id number] Safety cannot be Safety Active Becca left alone 06-20 (Andrés) 08:20: Walker [id number] Safety fall risk Safety Resolve 2019-08-13 Becca factor d 06-20 10:55:00 (Andrés) present 08:20: Walker [id number] Safety risk for Safety Resolve 2019-08-13 Becca hospitaliza d 06-20 10:55:00 (Andrés) tion 08:20: Walker [id number] Medication oral med Meds Resolve 2018-07-31 Becca assistance d 06-20 11:58:00 (Andrés) required 08:20: Walker [id number] Medication potential Meds Resolve 2018-07-31 Becca clinically d 06-20 11:58:00 (Andrés) significant 08:20: Walker medication 00 [id number] issue Musculoskel requires Musculoske Resolve 2019-06-13 Becca etal human letal d 06-20 13:00:00 (Andrés) assist to 08:20: Walker leave home 00 [id number] Musculoskel transfer Musculoske Resolve 2019-06-13 Becca etal assistance letal d 06-20 13:00:00 Guidelli required 08:20: [id number] 00 Respiratory oxygen Respirator Resolve 2019-02-05 Loreta treatments y d 06-26 10:30:00 [place] in home 10:28: h [id number] 00 Safety can be left Safety Active Loreta alone for 06-26 Guy-Zos only short 10:28: h [id number] periods 00 Elimination urinary Eliminatio Resolve 2017-102018-08-16 Loreta frequency n d 10:00:00 Guy-Zos 11:58: h [id number] 00 Neuro knowledge/s Neuro/Emot Active 2017-10 Loreta kill ion 0 [place] deficit: cg 11:58: h [id number] 00 Endo/Gage anti-coagul Endo/Gage Resolve 2017-102019-01-29 Loreta ation d 1-15 12:45:00 Guy-Zos therapy 10:00: h [id number] 00 Neuro depressive Neuro/Emot Active 2017-10 Loreta feelings ion 1-15 [place] present 10:00: h [id number] 00 Medication oral med Meds Resolve 2017-102019-02-05 Loreta assistance d 1-15 10:30:00 Guy-Zos required 10:00: h [id number] 00 Medication injectable Meds Resolve 2017-102019-02-05 Loreta med d -15 10:30:00 Guy-Zos assistance 10:00: h [id number] required 00 Medication potential Meds Active 2017-10 Loreta clinically -15 Guy-Zos significant 10:00: h [id number] medication 00 issue Endo/Gage knowledge/s Endo/Gage Resolve [...] treatment y 12-25 Emily in home 09:30: [id number] 00 Endo/Gage glucose Endo/Gage Resolve 2019-01-29 Cherrise tolerance d 12-25 12:45:00 Emily problem 09:30: [id number] 00 Nutrition knowledge/s Nutrition Resolve 2019-01-29 Cherrise kill d 12-25 12:45:00 Emily deficit: pt 09:30: [id number] 00 Elimination urinary Eliminatio Resolve 2019-01-15 Cherrise incontinenc n d 12-25 11:25:00 Printer e 09:30: [id number] 00 Elimination urinary Eliminatio Resolve 2019-01-15 Cherrise urgency n d 12-25 11:25:00 Emily 09:30: [id number] 00 Endo/Gage insulin Endo/Gage Resolve 2019-02-05 Cherrise admn d 02 10:30:00 Emily dependence 09:55: [id number] 00 Endo/Gage glucose Endo/Gage Resolve 2019-02-05 Cherrise testing d 01-01 10:30:00 Emily dependence 09:55: [id number] 00 Elimination urinary Eliminatio Resolve 2019-01-15 Cherrise frequency n d 4 11:25:00 Emily 09:55: [id number] 00 Elimination recurring Eliminatio Resolve 2019-02-05 Cherrise UTI n d 01-01 10:30:00 Emily 09:55: [id number] 00 Respiratory knowledge/s Respirator Resolve 2019-01-08 Marlene [...] n 0-08 Nila e 09:15: [employer] 00 [id number] Elimination constipatio Eliminatio Active 2018-10 Marlene paulino n 1-06 Carrier RN 12:10: 00 Cardio hypertensio Cardiovasc Active 2018-10 Marlene paulino ular -12 Carrier RN 10:55: 00 Medication injectable Meds Active 2018-10 Marlene med 10-13 Carrier RN assistance 10:55: required 00 Musculoskel requires Musculoske Active 2018-10 Marlene etal human letal 10-13 Carrier RN assist to 10:55: leave home 00 Musculoskel transfer Musculoske Active 2018-10 Marlene etal assistance letal 10-13 Carrier RN required 10:55: 00 Elimination diarrhea Eliminatio Active 2018-10 Tiffani n 10-27 Nila 09:00: [employer] 00 [id number] Safety risk for [facility] [facility] Nila tion 09:00: [employer] 00 [id number] Safety knowledge/s Safety Active 2018-10 Marlene kill 2 Carrier RN deficit: cg 15:55: 00 Allergies, Adverse Reactions, Alerts Allergy Name Allergy Status Severity Reaction(s) Onset Inactive Treating Comments Type Date Date Clinician morphine Base Active Unknown Reaction Barb Beam Ingredient Unknown 918 clavulanic Base Active Unknown Reaction Barb Beam acid Ingredient Unknown 9-18 nitrofuranto Base Active Unknown Reaction Barb Beam in Ingredient Unknown 9-18 meperidine Base Active Unknown Reaction Barb Beam [...] mg capsule capsule carvedilol carvedilol 2017- No [place] Unknown Unknown 6.25 mg 6.25 mg 06-20 Abiel UPT[facility] tablet tablet Brandon Vitamin D3 Vitamin D3 No Crowe 2000 Unknown 50 mcg 50 mcg Sarah [facility] units (2,000 (2,000 unit) unit) capsule capsule dilTIAZem dilTIAZem 2017- No [place] Unknown Unknown 120 mg 120 mg 06-20 Abiel [facility] tablet tablet Brandon Depakote Depakote No Crowe 1-2 Unknown 500 mg 500 mg Sarah [facility] tablet,lauryn tablet,lauryn yed release yed release Colace 100 Colace 100 2017- No [place] Unknown Unknown mg capsule mg capsule 06-20 Abiel [facility] furosemide furosemide No Crowe 20 mg Unknown 20 mg 20 mg Sarah [facility] tablet tablet gabapentin gabapentin 2017- No [place] Unknown Unknown 300 mg 300 mg 06-20 Abiel [facility] capsule Brandon glimepiride glimepiride No Crowe 4 mg Unknown 4 mg tablet 4 mg tablet Sarah [facility] liraglutide liraglutide No [place]we 1 Unknown 0.6 mg/0.1 0.6 mg/0.1 Sarah [facility] injecti mL (18 mg/3 mL (18 mg/3 on mL) mL) subcutaneou subcutaneou s pen s pen injector injector lisinopril lisinopril 2017- No [place] Unknown Unknown 20 mg 20 mg 06-20 Abiel [facility] tablet tablet Brandon Oyster Oyster No Crowe 500 mg Unknown Shell Shell Sarah [facility] Calcium 500 Calcium 500 500 mg 500 mg calcium calcium (1,250 mg) (1,250 mg) tablet tablet multivitami multivitami 2017- No [place] Unknown Unknown n capsule n capsule 06-20 [...] mg ,Sarah capsule capsule oxygen oxygen No [place] Unknown Unknown 06-20 Abiel [facility] clopidogrel clopidogrel 2017- No [place] Unknown Unknown 75 mg 75 mg 06-20 Abiel [facility] tablet tablet Brandon desvenlafax desvenlafax 2017- No [place] Unknown Unknown ine ine 06-20 Abiel [facility] succinate succinate Brandon ER 100 mg ER 100 mg tablet,exte tablet,exte nded nded release 24 release 24 hr hr diphenhydrA diphenhydrA 2017- No [place] Unknown Unknown MINE 25 mg MINE 25 mg 06-20 Abiel [facility] capsule capsule Brandon Depakote ER Depakote ER 2017- No [place] Unknown Unknown 500 mg 500 mg 06-20 Abiel [facility] tablet,exte tablet,exte Brandon nded nded release release famotidine famotidine 2017- No [place] Unknown Unknown 40 mg 40 mg 06-20 Abiel [facility] tablet tablet Brandon gabapentin gabapentin 2017- No [place] Unknown Unknown 100 mg 100 mg 06-20 Abiel [facility] capsule capsule Brandon glimepiride glimepiride 2017- No [place] Unknown Unknown 4 mg tablet 4 mg tablet 06-20 Abiel [facility] Nystop Nystop No [place] Unknown Unknown 100,000 100,000 06-20 Abiel [facility] unit/gram unit/gram Brandon topical topical powder powder atorvastati atorvastati 2017- No [place] Unknown Unknown n 80 mg n 80 mg 06-20 Abiel [facility] tablet tablet Brandon carvedilol carvedilol 2017-10- No [place] Unknown Unknown 6.25 mg 6.25 mg 07-02 Abiel [facility] tablet tablet Brandon Colace 100 Colace 100 2017-10- No [place] Unknown Unknown mg capsule mg capsule 07-02 Abiel [facility] diphenhydrA diphenhydrA 2017-10- No [place] Unknown Unknown MINE 25 mg MINE 25 mg 12-14 Abiel [facility] capsule capsule Brandon Depakote ER Depakote ER 2017-10- No [place] Unknown Unknown 500 mg 500 mg 09-27 Abiel [facility] tablet,exte tablet,exte Brandon nded nded release release Topamax 50 Topamax 50 2017- No Kandy Unknown Unknown mg tablet mg tablet 06-27 ,Willian Saphris Saphris 2017- No Kandy Unknown Unknown (black (black 06-27 ,Willian golden) 10 golden) 10 mg mg sublingual sublingual tablet tablet pantoprazol pantoprazol 2017- No [place] Unknown Unknown e 40 mg e 40 mg 06-27 Abiel [facility] tablet,lauryn tablet,lauryn Brandon yed release yed release raNITIdine raNITIdine 2017- No [place] Unknown Unknown 300 mg 300 mg 06-27 Abiel [facility] tablet tablet Brandon Calcium 500 Calcium 500 2017- No [place] Unknown Unknown With D 500 With D 500 06-27 Abiel [facility] (1,250 mg (1,250 Bradnon mg)-400 mg)-400 unit tablet unit tablet Vitamin D3 Vitamin D3 2018- No [place] Unknown Unknown 400 unit 400 unit 06-27 Abiel [facility] capsule capsule Brandon Victoza Victoza No [place] Unknown Unknown 2-Jeison 0.6 2-Jeison 0.6 06-27 Abiel [facility]/0.1 mL mg/0.1 mL Brandon (18 mg/3 (18 mg/3 mL) mL) subcutaneou subcutaneou s pen s pen injector injector atorvastati atorvastati 2017-10- No [place] Unknown Unknown n 80 mg n 80 [...] tablet 10-09 ,Geraldo doxycycline doxycycline 2017-10- No [place] Unknown Unknown monohydrate monohydrate 10-15 ,Abiel 100 mg 100 mg Brandon capsule capsule lithium lithium 2017-10- No Kandy Unknown Unknown carbonate carbonate 11-28 ,Willian 300 mg 300 mg tablet tablet Depakote ER Depakote ER 2017-10- No Kandy Unknown Unknown 500 mg 500 mg 11-28 ,Willian tablet,exte tablet,exte nded nded release release sennosides sennosides 2017-10 No [place] Unknown Unknown 8.6 8.6 11-28 ,Abiel mg-docusate mg-docusate Brandon sodium 50 sodium 50 mg tablet mg tablet lithium lithium 2018- No Knady Unknown Unknown carbonate carbonate 10-23 MD,Willian 300 mg 300 mg tablet tablet Depakote ER Depakote ER 2018- No Kandy Unknown Unknown 500 mg 500 mg 10-23 ,Willian tablet,exte tablet,exte nded nded release release lithium lithium 2018- No Kandy Unknown Unknown carbonate carbonate 11-29 ,Willian 300 mg 300 mg tablet tablet diphenhydrA diphenhydrA 2018- No [place] Unknown Unknown MINE 25 mg MINE 25 mg 12-14 ,Abiel capsule capsule Brandon clindamycin clindamycin 2018- No Pate Unknown Unknown HCl 300 mg HCl 300 mg 12-25 ,Deb capsule capsule dilTIAZem dilTIAZem No [place] Unknown Unknown 120 mg 120 mg 06-20 ,Abiel tablet tablet Brandon gabapentin gabapentin 2018- No [place] Unknown Unknown 300 mg 300 mg 06-20 ,Abiel capsule capsule Brandon lisinopril lisinopril No [place] Unknown Unknown 20 mg 20 mg 06-20 ,Abiel tablet tablet Brandon multivitami multivitami No [place] Unknown Unknown n capsule n capsule 06-20 Abiel [facility] clopidogrel clopidogrel No [place] Unknown Unknown 75 mg 75 mg 06-20 ,Abiel tablet tablet Brandon gabapentin gabapentin No [place] Unknown Unknown 100 mg 100 mg 06-20 ,Abeil capsule capsule Brandon glimepiride glimepiride No [place] Unknown Unknown 4 mg tablet 4 mg tablet 06-20 Abiel [facility] carvedilol carvedilol 2017- No [place] Unknown Unknown 6.25 mg 6.25 mg 06-20 ,Abiel tablet tablet Brandon Saphris Saphris 2017- No Kandy Unknown Unknown (black (black 06-20 ,Willian golden) 10 chico) 10 mg mg sublingual sublingual tablet tablet pantoprazol pantoprazol No [place] Unknown Unknown e 40 mg e 40 mg 06-20 Abiel [facility] tablet,lauryn tablet,lauryn Brandon yed release yed release raNITIdine raNITIdine No [place] Unknown Unknown 300 mg 300 mg 06-20 Abiel [facility] tablet tablet Brandon Calcium 500 Calcium 500 2017- No [place] Unknown Unknown With D 500 With D 500 06-20 Abiel [facility] mg (1,250 mg (1,250 Brandon mg)-400 mg)-400 unit tablet unit tablet Vitamin D3 Vitamin D3 2018- No [place] Unknown Unknown 1,000 unit 1,000 unit 01-01 Abiel U[facility] capsule capsule Brandon atorvastati atorvastati 2017- No [place] Unknown Unknown n 80 mg n 80 mg 1 10-30 ,Abiel tablet tablet Brandon atorvastati atorvastati 2017-10 No [place] Unknown Unknown n 80 mg n 80 [...] 24 hour hour carvedilol carvedilol 2017-10- No [place] Unknown Unknown 6.25 mg 6.25 mg 007-02 ,Abiel tablet tablet Brandon Saphris Saphris 2018- No Kandy Unknown Unknown (black (black 06-27 09-12 ,Willian golden) 10 golden) 10 mg mg sublingual sublingual tablet tablet Calcium 500 Calcium 500 2018- No [place] Unknown Unknown With D 500 With D 500 06-27 Abiel [facility] mg (1,250 mg (1,250 Brandon mg)-400 mg)-400 unit tablet unit tablet Topamax 50 Topamax 50 2017-10- No Kaitlynn Unknown Unknown mg tablet mg tablet 10-09 Geraldo U[facility]ON Depakote ER Depakote ER No Kandy Unknown Unknown 500 mg 500 mg 10-23 MD,Willian tablet,exte tablet,exte nded nded release release diphenhydrA diphenhydrA No [place] Unknown Unknown MINE 25 mg MINE 25 mg 3-15 Abiel U[facility] capsule capsule Brandon lithium lithium 2018- No Kandy Unknown Unknown carbonate carbonate 11-29- ,Willian 300 mg 300 mg tablet tablet Colace 100 Colace 100 2017-10- No [place] Unknown Unknown mg capsule mg capsule - Abiel U[facility] ipratropium ipratropium No [place] Unknown Unknown bromide bromide - Abiel UPTON 0.02 % 0.02 % Brandon solution solution for for inhalation inhalation albuterol albuterol No [place] Unknown Unknown sulfate 2.5 sulfate 2.5 5- MD,Abiel mg/3 mL mg/3 mL Brandon (0.083 %) (0.083 %) solution solution for for nebulizatio nebulizatio n n predniSONE predniSONE 2018- No [place] Unknown Unknown 20 mg 20 mg 12-28- MD,Abiel tablet tablet Brandon benzonatate benzonatate No [place] Unknown Unknown 100 mg 100 mg 12-28 MD,Abiel capsule capsule Brandon doxycycline doxycycline 2018- No [place] Unknown Unknown hyclate 100 hyclate 100 12-28- MD,Abiel mg capsule mg capsule Brandon Rexulti 0.5 [...] 02-20 MD,Deb tablet tablet LaMICtal 25 LaMICtal 2018- No Kandy Unknown Unknown mg tablet mg tablet 03-05 Willian U[facility] Topamax 50 Topamax 50 2018- No Kaitlynn Unknown Unknown mg tablet mg tablet 02-26 Geraldo [facility] gabapentin gabapentin No Kandy Unknown Unknown 600 mg 600 mg 03-05 Willian [facility] tablet tablet Topamax 50 Topamax 50 2018- No Kaitlynn Unknown Unknown mg tablet mg tablet 02-26 Geraldo [facility] Topamax 50 Topamax 50 2018- No Kaitlynn Unknown Unknown mg tablet mg tablet 04-09 Geraldo [facility] Topamax 50 Topamax 50 2018- No Kaitlynn Unknown Unknown mg tablet mg tablet 05-21 Geraldo UPTONulti 2 Rexulti 2 2018- No Kandy Unknown Unknown mg tablet mg tablet 05-31 Willian U[facility] 2018-10 Yes Pate Unknown Unknown Solostar Solostar 0 Deb U[facility] U-100 U-100 Insulin 100 Insulin 100 unit/mL (3 unit/mL (3 mL) mL) subcutaneou subcutaneou s pen s pen Topamax 50 Topamax 50 2018-10 Yes Kaitlynn Unknown Unknown mg tablet mg tablet 0 Geraldo [facility] Saphris 5 Saphris 5 2018-10 Yes Kandy Unknown Unknown mg mg 0 Willian [facility] sublingual sublingual tablet tablet Rexulti 2 Rexulti 2 2018- No Kandy Unknown Unknown mg tablet mg tablet 05-31 Willian [facility] Invokana Invokana No Pate Unknown Unknown 100 mg 100 mg 02-20 Deb [facility] tablet tablet carvedilol carvedilol 2017-10 No [place] Unknown Unknown 6.25 mg 6.25 mg 0 Abiel [facility] tablet tablet Brandon Latuda 20 [...] tablet mg tablet 10-27 Willian [facility] LaMICtal 25 LaMICtal 2018-10 Yes Kandy Unknown Unknown mg tablet mg tablet 2-24 Willian [facility] Vital Signs Vital Name Observation Time Observation Value Comments SYSTOLIC mm[Hg] 2019-06-13 18:07:48 142 mm[Hg] mm[Hg] Method: Stand DIASTOLIC mm[Hg] 2019-06-13 18:07:48 72 mm[Hg] mm[Hg] Method: Stand Procedures This patient has no known procedures. Results This patient has no known results.
--- OUTSIDE RECORDS SUMMARY | 2019-12-01 11:54 | XMS REPORT ---
:1960 Author Organization [facility] Care Team Providers Name Role Phone Unavailable [...] d 06-20 10:30:00 (Andrés) 08:20: Walker 00 [id number] Cardio edema Cardiovasc Resolve 2018-08-16 Becca ular d 06-20 10:00:00 (Andrés) 08:20: Walker 00 [id number] Respiratory dyspnea Respirator Resolve 2019-02-05 Becca present y d 06-20 10:30:00 (Andrés) 08:20: Walker 00 [id number] Respiratory lung sounds Respirator Resolve 2019-02-05 Becca deficit y d 06-20 10:30:00 (Andrés) 08:20: Walker 00 [id number] Endo/Gage anti-coagul Endo/Gage Resolve 2018-07-31 Becca ation d 06-20 11:58:00 (Andrés) therapy 08:20: Walker [id number] Integument skin Integument Active Becca integrity 06-20 (Andrés) risk 08:20: Walker [id number] Elimination urinary Eliminatio Resolve 2018-08-16 Becca incontinenc n d 06-20 10:00:00 (Andrés) e 08:20: Walker [id number] Neuro confusion Neuro/Emot Active Becca present ion 06-20 (Andrés) 08:20: Walker [id number] Neuro anxiety Neuro/Emot Active Becca present ion 06-20 (Andrés) 08:20: Walker [id number] Neuro impaired Neuro/Emot Active Becca decision-ma ion 06-20 (Andrés) caty 08:20: Walker [id number] Activity ADL Activity Active Becca assistance 06-20 (Andrés) required 08:20: Walker [id number] Safety cannot be Safety Active Becca left alone 06-20 (Andrés) 08:20: Walker [id number] Safety fall risk Safety Resolve 2019-08-13 Becca factor d 06-20 10:55:00 (Andrés) present 08:20: Walker [id number] Safety risk for Safety Resolve 2019-08-13 Becca hospitaliza d 06-20 10:55:00 (Andrés) tion 08:20: Walker [id number] Medication oral med Meds Resolve 2018-07-31 Becca assistance d 06-20 11:58:00 (Andrés) required 08:20: Walker [id number] Medication potential Meds Resolve 2018-07-31 Becca clinically d 06-20 11:58:00 (Andrés) significant 08:20: Walker medication 00 [id number] issue Musculoskel requires Musculoske Resolve 2019-06-13 Becca etal human letal d 06-20 13:00:00 (Andrés) assist to 08:20: Walker leave home 00 [id number] Musculoskel transfer Musculoske Resolve 2019-06-13 Becca etal assistance letal d 06-20 13:00:00 Guid[place] required 08:20: [id number] Respiratory oxygen Respirator Resolve 2019-02-05 Loreta treatments y d 06-26 10:30:00 [place] in home 10:28: h [id number] Safety can be left Safety Active Loreta alone for 06-26 [facility] only short 10:28: h [id number] periods 00 Elimination urinary Eliminatio Resolve 2017-102018-08-16 Loreta frequency n d 10:00:00 [facility] 11:58: h [id number] 00 Neuro knowledge/s Neuro/Emot Active 2017-10 Loreta kill ion 0 [place] deficit: cg 11:58: h [id number] 00 Endo/Gage anti-coagul Endo/Gage Resolve 2017-102019-01-29 Loreta ation d 1-15 12:45:00 [facility] therapy 10:00: h [id number] 00 Neuro depressive Neuro/Emot Active 2017-10 Loreta feelings ion 1-15 [place] present 10:00: h [id number] 00 Medication oral med Meds Resolve 2017-102019-02-05 Loreta assistance d 1-15 10:30:00 [facility] required 10:00: h [id number] 00 Medication injectable Meds Resolve 2017-102019-02-05 Loreta med d -15 10:30:00 [facility] assistance 10:00: h [id number] required 00 Medication potential Meds Active 2017-10 Loreta clinically -15 [facility] significant 10:00: h [id number] medication 00 issue Endo/Gage knowledge/s Endo/Gage Resolve 2019-01-08 Marlene kill d 16 15:40:00 Carrier RN deficit: pt 14:45: 00 Nutrition nutritional Nutrition Resolve 2019-01-29 Marlene restriction d -16 12:45:00 Carrier RN s 14:45: 00 Activity self-care Activity Resolve 2019-01-15 Marlene deficit d 1-16 11:25:00 Carrier RN 14:45: 00 Cardio hypertensio Cardiovasc Resolve 2019-01-29 Marlene pualino ular d 2-12 12:45:00 Carrier RN 10:00: 00 Neuro knowledge/s Neuro/Emot Active Marlene kill ion 3-13 Carrier RN deficit: pt 13:30: 00 Respiratory nebulizer Respirator Active Cherrise treatment y 12-25 Emily in home 09:30: [id number] 00 Endo/Gage glucose Endo/Gage Resolve 2019-01-29 Cherrise tolerance d 12-25 12:45:00 Emily problem 09:30: [id number] 00 Nutrition knowledge/s Nutrition Resolve 2019-01-29 Cherrise kill d 12-25 12:45:00 Emily deficit: pt 09:30: [id number] 00 Elimination urinary Eliminatio Resolve 2019-01-15 Cherrise incontinenc n d 12-25 11:25:00 Rhine e 09:30: [id number] 00 Elimination urinary Eliminatio Resolve 2019-01-15 Cherrise urgency n d 12-25 11:25:00 Emily 09:30: [id number] 00 Endo/Gage insulin Endo/Gage Resolve 2019-02-05 Cherrise admn d 02 10:30:00 Emily dependence 09:55: [id number] 00 Endo/Gage glucose Endo/Gage Resolve 2019-02-05 Cherrise testing d 01-01 10:30:00 Emily dependence 09:55: [id number] 00 Elimination urinary Eliminatio Resolve 2019-01-15 Cherrise frequency n d 4 11:25:00 Emily 09:55: [id number] 00 Elimination recurring Eliminatio Resolve 2019-02-05 Cherrise UTI n d 01-01 10:30:00 Emily 09:55: [id number] 00 Respiratory knowledge/s Respirator Resolve 2019-01-08 Marlene [...] n 0-08 Nila e 09:15: [employer] 00 [id number] Elimination constipatio Eliminatio Active 2018-10 Marlene n n - Carrier RN 12:10: 00 Cardio hypertensio Cardiovasc Active 2018-10 Marlnee n ular 10-13 Carrier RN 10:55: 00 [...] Tiffani n 10-27 Nila 09:00: [employer] 00 [id number] Safety risk for Safety Active 2018-10 Tiffani [facility] 10-27 Nila tion 09:00: [employer] 00 [id number] Safety knowledge/s Safety Active 2018-10 Marlene kill 11-08 Carrier RN deficit: cg 15:55: 00 Integument other wound Integument Active Marlene present 10-08 Carrier RN 12:30: 00 Allergies, Adverse Reactions, Alerts Allergy Name Allergy Status Severity Reaction(s) Onset Inactive Treating Comments Type Date Date Clinician morphine Base Active Unknown Reaction Barb Beam Ingredient Unknown 06-19 clavulanic Base Active Unknown Reaction Barb Beam acid Ingredient Unknown 06-19 nitrofuranto Base Active Unknown Reaction Barb Beam in Ingredient Unknown 06-19 meperidine Base Active Unknown Reaction Barb Beam Ingredient Unknown 18 Medications Ordered Filled Start Stop Current Ordering [...] mg capsule capsule carvedilol carvedilol 2017- No [place] Unknown Unknown 6.25 mg 6.25 mg 06-20 Abiel [facility] tablet tablet Brandon Vitamin D3 Vitamin D3 No Crowe 2000 Unknown 50 mcg 50 mcg Sarah [facility] units (2,000 (2,000 unit) unit) capsule capsule dilTIAZem dilTIAZem 2017- No [place] Unknown Unknown 120 mg 120 mg 06-20 Abiel [facility] tablet tablet Brandon Depakote Depakote No Crowe 1-2 Unknown 500 mg 500 mg Sarah [facility] tablet,lauryn tablet,lauryn yed release yed release Colace 100 Colace 100 2017- No [place] Unknown Unknown mg capsule mg capsule 06-20 Abiel [facility] furosemide furosemide No Crowe 20 mg Unknown 20 mg 20 mg Sarah [facility] tablet tablet gabapentin gabapentin 2017- No [place] Unknown Unknown 300 mg 300 mg 06-20 Abiel [facility] capsule Brandon glimepiride glimepiride No Crowe 4 mg Unknown 4 mg tablet 4 mg tablet Sarah [facility] liraglutide liraglutide No Crowe 1 Unknown 0.6 mg/0.1 0.6 mg/0.1 Sarah [facility] injecti mL (18 mg/3 mL (18 mg/3 on mL) mL) subcutaneou subcutaneou s pen s pen injector injector lisinopril lisinopril 2017- No [place] Unknown Unknown 20 mg 20 mg 06-20 Abiel [facility] tablet tablet Brandon Oyster Oyster No Crowe 500 mg Unknown Shell Shell Sarah [facility] Calcium 500 Calcium 500 500 mg 500 mg calcium calcium (1,250 mg) (1,250 mg) tablet tablet multivitami multivitami 2017- No [place] Unknown Unknown n capsule n capsule 06-20 [...] mg ,Sarah capsule capsule oxygen oxygen No [place] Unknown Unknown 06-20 Abiel [facility] clopidogrel clopidogrel 2017- No [place] Unknown Unknown 75 mg 75 mg 06-20 Abiel [facility] tablet tablet Brandon desvenlafax desvenlafax 2017- No [place] Unknown Unknown ine ine 06-20 ,Abiel succinate succinate Brandon ER 100 mg ER 100 mg tablet,exte tablet,exte nded nded release 24 release 24 hr hr diphenhydrA diphenhydrA 2017- No [place] Unknown Unknown MINE 25 mg MINE 25 mg 06-20 ,Abiel capsule capsule Brandon Depakote ER Depakote ER 2017- No [place] Unknown Unknown 500 mg 500 mg 06-20 Abiel [facility] tablet,exte tablet,exte Brandon nded nded release release famotidine famotidine 2017- No [place] Unknown Unknown 40 mg 40 mg 06-20 Abiel [facility] tablet tablet Brandon gabapentin gabapentin 2017- No [place] Unknown Unknown 100 mg 100 mg 06-20 Abiel [facility] capsule capsule Brandon glimepiride glimepiride 2017- No [place] Unknown Unknown 4 mg tablet 4 mg tablet 06-20 Abiel [facility] Nystop Nystop No [place] Unknown Unknown 100,000 100,000 06-20 Abiel [facility] unit/gram unit/gram Brandon topical topical powder powder atorvastati atorvastati 2017- No [place] Unknown Unknown n 80 mg n 80 mg 06-20 ,Abiel tablet tablet Brandon carvedilol carvedilol 2017-10- No [place] Unknown Unknown 6.25 mg 6.25 mg 07-02 ,Abeil tablet tablet Brandon Colace 100 Colace 100 2017-10- No [place] Unknown Unknown mg capsule mg capsule 07-02 Abiel [facility] diphenhydrA diphenhydrA 2017-10- No [place] Unknown Unknown MINE 25 mg MINE 25 mg 12-14 ,Abiel capsule capsule Brandon Depakote ER Depakote ER 2017-10- No [place] Unknown Unknown 500 mg 500 mg 09-27 ,Abiel tablet,exte tablet,exte Brandon nded nded release release Topamax 50 Topamax 50 2017- No Kandy Unknown Unknown mg tablet mg tablet 06-27 ,Willian Saphchiquita Saphris 2017- No Kandy Unknown Unknown (black (black 06-27 ,Willian golden) 10 golden) 10 mg mg sublingual sublingual tablet tablet pantoprazol pantoprazol 2017- No [place] Unknown Unknown e 40 mg e 40 mg 06-27 ,Abiel tablet,lauryn tablet,lauryn Brandon yed release yed release raNITIdine raNITIdine 2017- No [place] Unknown Unknown 300 mg 300 mg 06-27 ,Abiel tablet tablet Brandon Calcium 500 Calcium 500 2017- No [place] Unknown Unknown With D 500 With D 500 06-27 Abiel [facility] mg (1,250 mg (1,250 Brandon mg)-400 mg)-400 unit tablet unit tablet Vitamin D3 Vitamin D3 2018- No [place] Unknown Unknown 400 unit 400 unit 06-27 Abiel [facility] capsule capsule Brandon Victoza Victoza No [place] Unknown Unknown 2-Jeison 0.6 2-Jeison 0.6 06-27 Abiel [facility] mg/0.1 mL mg/0.1 mL Brandon (18 mg/3 (18 mg/3 mL) mL) subcutaneou subcutaneou s pen s pen injector injector atorvastati atorvastati 2017-10- No [place] Unknown Unknown n 80 mg n 80 [...] tablet 10-09 ,Geraldo doxycycline doxycycline 2017-10- No [place] Unknown Unknown monohydrate monohydrate 10-15 ,Abiel 100 mg 100 mg Brandon capsule capsule lithium lithium 2017-10- No Kandy Unknown Unknown carbonate carbonate 11-28 ,Willian 300 mg 300 mg tablet tablet Depakote ER Depakote ER 2017-10- No Kandy Unknown Unknown 500 mg 500 mg 11-28 ,Willian tablet,exte tablet,exte nded nded release release sennosides sennosides 2017-10 No [place] Unknown Unknown 8.6 8.6 11-28 ,Abiel mg-docusate [...] UPT[facility] 300 mg 300 mg tablet tablet diphenhydrA diphenhydrA 2018- No [place] Unknown Unknown MINE 25 mg MINE 25 mg 12-14 ,Abiel capsule capsule Brandon clindamycin clindamycin 2018- No Pate Unknown Unknown HCl 300 mg HCl 300 mg 12-25 ,Deb capsule capsule dilTIAZem dilTIAZem No [place] Unknown Unknown 120 mg 120 mg 06-20 ,Abiel tablet tablet Brandon gabapentin gabapentin 2018- No [place] Unknown Unknown 300 mg 300 mg 06-20 ,Abiel capsule capsule Brandon lisinopril lisinopril No [place] Unknown Unknown 20 mg 20 mg 06-20 ,Abiel tablet tablet Brandon multivitami multivitami No [place] Unknown Unknown n capsule n capsule 06-20 Abiel [facility] clopidogrel clopidogrel No [place] Unknown Unknown 75 mg 75 mg 06-20 Abiel U[facility] tablet tablet Brandon gabapentin gabapentin No [place] Unknown Unknown 100 mg 100 mg 06-20 Abiel U[facility] capsule capsule Brandon glimepiride glimepiride No [place] Unknown Unknown 4 mg tablet 4 mg tablet 06-20 Abiel [facility] carvedilol carvedilol 2017- No [place] Unknown Unknown 6.25 mg 6.25 mg 06-20 Abiel [facility] tablet tablet Brandon Saphris Saphris 2018- No Kandy Unknown Unknown (black (black 06-20 ,Willian golden) 10 [place]) 10 mg mg sublingual sublingual tablet tablet pantoprazol pantoprazol No [place] Unknown Unknown e 40 mg e 40 mg 06-20 Abiel [facility] tablet,lauryn tablet,lauryn Brandon yed release yed release raNITIdine raNITIdine No [place] Unknown Unknown 300 mg 300 mg 06-20 Abiel [facility] tablet tablet Brandon Calcium 500 Calcium 500 2017- No [place] Unknown Unknown With D 500 With D 500 06-20 Abiel [facility] mg (1,250 mg (1,250 Brandon mg)-400 mg)-400 unit tablet unit tablet Vitamin D3 Vitamin D3 2018- No [place] Unknown Unknown 1,000 unit 1,000 unit 01-01 Abiel [facility] capsule capsule Brandon atorvastati atorvastati 2017- No [place] Unknown Unknown n 80 mg n 80 mg 10-31 ,Abiel tablet tablet Brandon atorvastati atorvastati 2017-10 No [place] Unknown Unknown n 80 mg n 80 [...] 24 hour hour carvedilol carvedilol 2017-10- No [place] Unknown Unknown 6.25 mg 6.25 mg 07-02 ,Abiel tablet tablet Brandon Saphris Saphris 2018- No Kandy Unknown Unknown (black (black 06-27 ,Willian golden) 10 [place]) 10 mg mg sublingual sublingual tablet tablet Calcium 500 Calcium 500 2018- No [place] Unknown Unknown With D 500 With D 500 06-27 Abiel [facility] mg (1,250 mg (1,250 Brandon mg)-400 mg)-400 unit tablet unit tablet Topamax 50 Topamax 50 2017-10- No Kaitlynn Unknown Unknown mg tablet mg tablet 10-09 Geraldo U[facility] Depakote ER Depakote ER No Kandy Unknown Unknown 500 mg 500 mg 10-23 ,Willian tablet,exte tablet,exte nded nded release release diphenhydrA diphenhydrA No [place] Unknown Unknown MINE 25 mg MINE 25 mg 12-14 Abiel [facility] capsule capsule Brandon lithium lithium 2018- No Kandy Unknown Unknown carbonate carbonate 11-29 ,Willian 300 mg 300 mg tablet tablet Colace 100 Colace 100 2017-10- No [place] Unknown Unknown mg capsule mg capsule 001-01 Abiel [facility] ipratropium ipratropium No [place] Unknown Unknown bromide bromide 02-19 Abiel [facility] 0.02 % 0.02 % Brandon solution solution for for inhalation inhalation albuterol albuterol No [place] Unknown Unknown sulfate 2.5 sulfate 2.5 - Abiel [facility] mg/3 mL mg/3 mL Brandon (0.083 %) (0.083 %) solution solution for for nebulizatio nebulizatio n n predniSONE predniSONE 2018- No [place] Unknown Unknown 20 mg 20 mg 12-28 ,Abiel tablet tablet Brandon benzonatate benzonatate No [place] Unknown Unknown 100 mg 100 mg 12-28 ,Abiel capsule capsule Brandon doxycycline doxycycline 2018- No [place] Unknown Unknown hyclate 100 hyclate 100 12-28 [...] Kandy Unknown Unknown mg tablet mg tablet 03-05- MD,Willian Topamax 50 Topamax 50 2018- No Kaitlynn Unknown Unknown mg tablet mg tablet 02-26- ,Geraldo gabapentin gabapentin No Kandy Unknown Unknown 600 mg 600 mg 03-05 ,Willian tablet tablet Topamax 50 Topamax 50 2018- No Kaitlynn Unknown Unknown mg tablet mg tablet 02-26- Geraldo U[facility] Topamax 50 Topamax 50 2018- No Kaitlynn Unknown Unknown mg tablet mg tablet 04-09 ,Geraldo Topamax 50 Topamax 50 2018- No Kaitlynn Unknown Unknown mg tablet mg tablet 05-21 ,Geraldo Lewisulti 2 Rexulti 2 2018- No Kandy Unknown Unknown mg tablet mg tablet 05-31 ,Willian Dejesus Lantus 2018-10 Yes Pate Unknown Unknown Solostar Solostar 0-17 ,Deb U-100 U-100 Insulin 100 Insulin 100 [...] ,Deb tablet tablet carvedilol carvedilol 2017-10 No [place] Unknown Unknown 6.25 mg 6.25 mg 0- [...] Unknown Unknown mg tablet mg tablet - Willian [facility] Vital Signs Vital Name Observation [...]
[2019-12-01] MEDS ORDERED: Ondansetron INJ* 2 MG/ML VIAL IV PRN (12:38)
[2019-12-01] MEDS ORDERED: Albuterol HFA INHALER* 8 gm MDI INH PRN (13:06)
[2019-12-01] MEDS ORDERED: Albuterol 2.5 MG/3 ML NEB.SOL* (0.083%) INH PRN (13:06)
[2019-12-01] MEDS ORDERED: Ipratropium 0.5MG/2.5ML NEB* 0.5 MG/2.5 ML NEB.SOLN INH PRN (13:06)
[2019-12-01] MEDS ORDERED: diPHENhydraMINE PO* 50 MG PO PRN (13:06)
[2019-12-01] MEDS ORDERED: Dextrose 50% Syringe 50 ML* 25 GM/50 ML SYRINGE IV PUSH PRN (13:14)
[2019-12-01] MEDS: Gabapentin CAP(*) 100 MG PO SCH ×2 (14:28→21:29)
[2019-12-01] MEDS: Insulin LISPRO* 1 UNITS UNIT SUBCUT SCH (16:40)
[2019-12-01 16:54] LABS: Urine Appearance Clear; Urine Bilirubin Negative (Negative); Urine Blood Negative (Negative); Urine Color Yellow; Urine Glucose 3+(>=500 mg/dL) (Negative); Urine Ketones Trace (Negative); Urine Nitrite Negative (Negative); Urine Protein Negative (Negative); Urine Specific Gravity 1.039 (1.010-1.030); Urine Urobilinogen Negative (Negative)
--- NOTE | 2019-12-01 16:58 | HP ---
CC: Dr. Deb Pate; Dr. Calderón; Dr. Crowe * HISTORY AND PHYSICAL: DATE OF ADMISSION: 12/01/19 PRIMARY CARE PROVIDER: Dr. Deb Pate. OTHER PROVIDERS: Dr. Calderón; Dr. Crowe. ATTENDING PHYSICIAN: Dr. Angelika Lucia * (dictated by MARLA Hart ). CHIEF COMPLAINT: Slurred, slow speech with difficulty with word finding, dizziness, worsening left-sided weakness. HISTORY OF PRESENT ILLNESS: Ms. Sol is a 59-year-old female with past medical history of moyamoya status post multiple brain surgeries; diabetes insulin dependent; hypertension; hyperlipidemia; diastolic heart failure; history of CVAs, most recent in 2017 where she was left with left-sided weakness , who presented to the ER today with complaints of dysarthria, difficulty with word finding, dizziness, left-sided weakness. The patient states that she woke up at 0300 with a headache. She took Fioricet and fell back to sleep. She then woke up at 0800 and took her regularly scheduled meds. She notes that she felt mildly unwell. Approximately 8:45, she reports onset of slow slurred speech , inability to find appropriate words, dizziness, worsened left upper and left lower extremity weakness. She reports that she felt that she had a "brain fog. " Her aide came at approximately 0900. She ate breakfast and reported that she continued to feel unwell. She then came to the ER between 0930 and 1000. She reports that her symptoms lasted 90 to 120 minutes and mostly resolved, although she reports she is still left with some dizziness and weakness on the left side that is worse than her baseline. She reports that her "brain hurts" and that she feels as if she has difficulty formulating thoughts. She does have a history of migraines and reports that these are not similar to her usual migraines. In the ER, the patient was found to have a NIH stroke scale of 4. Neurology, Dr. Nj was consulted and found the patient to be ineligible for tPA due to last known well being 0300 and to being outside of tPA window. He recommended CTA of the head and neck, MRI of the brain, and admission to the hospital. In the ER, the patient received a full workup. CBC was unremarkable. CMP shows an elevated glucose of 182 and her troponin is 0. LDL is 79. Lactic acid is 2.4. Brain CT was obtained and is negative for stroke or hemorrhage. Chest x-ray was unremarkable. The patient received 1 L normal saline bolus. The hospitalist team was asked to evaluate the patient for admission. PAST MEDICAL HISTORY: 1. Moyamoya with a history of bihemispheric surgeries, bilateral bypass, follows with Dr. Calderón; Dr. Crowe. 2. Diabetes mellitus, insulin dependent. 3. Hypertension. 4. Hyperlipidemia. 5. Diastolic heart failure. 6. COPD. 7. History of CVA. 8. Migraines. 9. Obstructive sleep apnea. 10. Chronic kidney disease. 11. Psychiatric history with personality disorder, bipolar disorder, depression , anxiety. PAST SURGICAL HISTORY: 1. x2. 2. Appendectomy. 3. Endometrial ablation. 4. Left internal carotid artery stenting. 5. Brain surgeries. HOME MEDICATIONS: 1. Albuterol 2.5 mg/3 mL inhalation q.4 hours p.r.n. 2. Albuterol sulfate 2 puffs inhalation 4 times a day p.r.n. 3. Asenapine 5 mg sublingual at bedtime. 4. Atorvastatin 80 mg p.o. daily. 5. Benzonatate 100 mg p.o. t.i.d. p.r.n. 6. Fioricet 1 tab p.o. q.8 hours p.r.n. 7. Calcium carbonate/vitamin D3 one tab p.o. daily. 8. Canagliflozin 100 mg p.o. daily. 9. Carvedilol 6.25 mg p.o. b.i.d. 10. Cholecalciferol 1000 units p.o. daily. 11. Clopidogrel 75 mg p.o. daily. 12. Conjugated estrogen 1 application vaginally 2 times per week. 13. Desvenlafaxine 150 mg p.o. daily. 14. Diltiazem 120 mg p.o. daily. 15. Divalproex DR 500 mg p.o. b.i.d. 16. Docusate 100 mg p.o. b.i.d. 17. Aimovig 70 mg subcu monthly. 18. Gabapentin 100 mg p.o. t.i.d., 600 mg p.o. at bedtime. 19. Genahist 50 mg p.o. at bedtime p.r.n. 20. Glimepiride 4 mg p.o. daily. 21. Insulin glargine 20 units subcu at bedtime. 22. Ipratropium 0.5/2.5 inhalation 4 times a day p.r.n. 23. Lamotrigine 75 mg p.o. daily. 24. Liraglutide 1.8 mg subcu daily. 25. Lisinopril 20 mg p.o. daily. 26. Lurasidone 60 mg p.o. daily. 27. Multivitamin/minerals 1 tab p.o. daily. 28. Nystatin 1 application topically 3 to 4 times per day. 29. Ondansetron 4 mg p.o. q.6 hours p.r.n. 30. Pantoprazole 40 mg p.o. daily. 31. Ranitidine 300 mg p.o. at bedtime. 32. Sennosides 25 mg p.o. daily. 33. Topiramate 50 mg p.o. daily. DRUG ALLERGIES: CLAVULANIC ACID, nausea, vomiting; MEPERIDINE, headache; MORPHINE, nausea; NITROFURANTOIN, rash. FAMILY HISTORY: Father had a history of CAD and at the age of 51 from cancer. Mother had a history of CAD, CVA and at the age of 71 secondary to complications from diabetes. SOCIAL HISTORY: The patient quit smoking in 2004. Prior to that, she has a 26 - pack year smoking history. She rarely uses alcohol, 1 to 2 times per year. She does not use any illicit drugs. 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 She lives with her daughter and her daughter's ex-boyfriend. She walks with a walker at baseline since her stroke in December 2016. In the event that she is unable to make her own medical decisions, she has appointed her daughter, Debra Sol, and her sister, Nicolette Lozano, to be her surrogate decision makers. REVIEW OF SYSTEMS: A 14-point review of systems has been performed and all the pertinent positives and negatives are in the HPI, all other systems are negative. PHYSICAL EXAMINATION GENERAL: Ms. Sol is a well-developed, well-nourished, obese, middle-aged white woman, who is sitting up in bed, she is wearing oxygen and breathing comfortably on 2 L supplemental oxygen. She appears to be in no acute distress. She is pleasant, cooperative and appropriate. HEENT: Normocephalic, atraumatic. Face symmetrical. PERRL. EOMI. Visual franco grossly intact. Hearing is grossly intact. Oral mucous membranes are moist. There are no lesions. The pharynx is clear. Tongue is at midline. Palate elevates symmetrically. The patient does not appear to be dysarthric, although she does appear to have a mild speech impediment, which is likely due to being edentulous. PULMONARY: Symmetrical chest expansion without use of accessory muscles. Clear to auscultation bilaterally without rhonchi, wheeze, or rales, although breath sounds diminished throughout likely due to body habitus. CARDIOVASCULAR: Regular rate and rhythm with S1, S2 present. No murmurs, rubs , clicks, or gallops. There is no JVD or peripheral edema. ABDOMEN: Bowel sounds in all quadrants. Soft and nontender to palpation. MUSCULOSKELETAL: Full range of motion without pain or deformities. NEURO: The patient is awake. She is alert and oriented x3. Cranial nerves intact except the patient reports assistant financial accountant sensation to the left face versus right. Handgrip is unequal with right greater than left. Left-sided elbow extension weaker than right. Left-sided hip flexion weaker than right. DIAGNOSTIC STUDIES/LAB DATA: CBC: WBC 7.7, RBC 5.01, hemoglobin 13.9, hematocrit 41, MCV 83, platelets 179. CMP: Sodium 138, potassium 4.4, chloride 104, carbon dioxide 24, anion gap 10, BUN 17, creatinine 0.76, glucose 182. Lactic acid 2.4. Troponin 0.00. LDL 79. Chest x-ray, impression: No radiographic evidence for acute cardiopulmonary abnormality on this portable chest x-ray. CT brain without, impression: Negative CT apparent signs of stroke or acute intracranial hemorrhage, interval appearance of dependent partial left mastoid air cell effusion of uncertain clinical significance. ASSESSMENT AND PLAN: Ms. Sol is a 59-year-old female with past medical history of moyamoya; history of cerebrovascular accident; diabetes mellitus, insulin dependent; hypertension; hyperlipidemia; obstructive sleep apnea, who presented to the ER today with complaints of dysarthria, difficulty with word finding, worsened left-sided weakness, dizziness. She will be admitted observation for: 1. Dysarthria, left-sided weakness. Ms. Sol reports 90 to 120 minutes of the aforementioned symptoms. They have since resolved, although she feels she is left with some residual left-sided weakness (she does have left-sided weakness at baseline, but believes that it is worse) and difficulty formulating thoughts. NIH stroke scale was 4, but she was found not to be a candidate for tPA. She will be admitted observation for further workup. So far, a brain CT was negative for cerebrovascular accident. CTA of the head is pending. The patient does have a history of moyamoya, which could factor into this as this often leads to strokes and she has a history of strokes from this. She will continue her Plavix at this time, which she is on for carotid stent. She is not on aspirin. She follows with Dr. Calderón and Dr. Crowe for her moyamoya. An MRI of the head has been ordered. Neuro checks q.4 hours. The patient will be admitted and placed on telemetry. Neurology will be consulted for further recommendations. 2. Diabetes mellitus. The patient takes glargine 20 units at bedtime. We will decrease this to 15 units at bedtime. She will be placed on consistent carbohydrate diet. Her other diabetic medications will be held at this time and she will be placed on fingersticks a.c. and lispro sliding scale. 3. Hypertension. Continue lisinopril, carvedilol. 4. Hyperlipidemia. Continue atorvastatin 80. LDL repeat in the morning. 5. Diastolic heart failure. Last echo in May 2018 with EF of 60% to 65%, impaired LV diastolic filling. Currently, she has no signs or symptoms of exacerbation. We will continue her carvedilol and lisinopril. 6. Chronic obstructive pulmonary disease. The patient does not appear to be in exacerbation. Continue oxygen nebulizers and inhalers. 7. Obstructive sleep apnea. Continue hospital CPAP. 8. Migraines. Continue topiramate. We will hold the patient's Aimovig at this time. 9. Psychiatric history. Continue the patient's home medications including desvenlafaxine, divalproex, gabapentin, and lamotrigine. 10. DVT prophylaxis. According to DVT Risk Assessment, the patient scores 3 placing her at high risk. She will be placed on SCDs. Checmoprophylaxis will be held as she as at increased risk of bleeding with Moyamoya. 11. Code status. Full code. TIME SPENT: Approximately 70 minutes was spent on this admission, greater than half that time was spent [id number] with the patient obtaining history, performing physical, and reviewing the plan of care. The case has been discussed with my attending, Dr. Lucia, who is in agreement with the plan of care. MARLA HART [id number]/CPS #: [id number] SAURAV
[2019-12-01] MEDS ORDERED: Topiramate TAB(*) 25 MG PO SCH (18:00)
[2019-12-01] MEDS ORDERED: Butalb/Acetamin/Caff TAB* 1 TAB PO ONE (19:51)
[2019-12-01] MEDS ORDERED: Famotidine TAB* 20 MG PO SCH (21:00)
[2019-12-01] MEDS ORDERED: Insulin GLARGINE(*) 1 UNITS UNIT SUBCUT SCH (21:00)
[2019-12-01] MEDS ORDERED: Gabapentin CAP(*) 300 MG PO SCH (21:00)
[2019-12-01] MEDS: Carvedilol TAB* 6.25 MG PO SCH (21:30)
[2019-12-01] MEDS: Divalproex DR TAB(*) 500 MG PO SCH (21:30)
[2019-12-01] MEDS: Docusate CAP* 100 MG PO SCH (21:30)
[2019-12-02] MEDS: Insulin LISPRO* 1 UNITS UNIT SUBCUT SCH ×2 (08:16→12:13)
[2019-12-02] MEDS ORDERED: Desvenlafaxine (NF) 50 MG TAB PO SCH (09:00)
[2019-12-02] MEDS ORDERED: Clopidogrel TAB* 75 MG PO SCH (09:00)
[2019-12-02] MEDS ORDERED: Lisinopril TAB* 10 MG PO SCH (09:00)
[2019-12-02] MEDS ORDERED: Lurasidone(*) 60 MG TAB PO SCH (09:00)
[2019-12-02] MEDS ORDERED: GLIMEPIRIDE 4 MG PO SCH (09:00)
[2019-12-02] MEDS ORDERED: LIRAGLUTIDE 1.8 MG SUBCUT SCH (09:00)
[2019-12-02] MEDS ORDERED: Diltiazem CD CAP* 120 MG PO SCH (09:00)
[2019-12-02] MEDS ORDERED: Cholecalciferol TAB* 1000 UNITS PO SCH (09:00)
[2019-12-02] MEDS ORDERED: Pantoprazole TAB * 40 MG TAB PO SCH (09:00)
[2019-12-02] MEDS ORDERED: Calcium/Vitamin D TAB 250/125* TAB PO SCH (09:00)
[2019-12-02] MEDS ORDERED: Senna TAB 8.6 mg* TAB PO SCH (09:00)
[2019-12-02] MEDS ORDERED: CANAGLIFLOZIN 100 MG PO SCH (09:00)
[2019-12-02] MEDS ORDERED: lamoTRIgine TAB(*) 25 MG PO SCH (09:00)
[2019-12-02] MEDS ORDERED: Multivitamins/Minerals TAB PO SCH (09:00)
[2019-12-02] MEDS ORDERED: Atorvastatin* 80 MG TAB PO SCH (09:00)
[2019-12-02] MEDS: Divalproex DR TAB(*) 500 MG PO SCH (09:47)
[2019-12-02] MEDS: Gabapentin CAP(*) 100 MG PO SCH ×2 (09:48→12:55)
[2019-12-02] MEDS: Docusate CAP* 100 MG PO SCH (09:53)
[2019-12-02] MEDS: Carvedilol TAB* 6.25 MG PO SCH (09:55)
--- NOTE | 2019-12-02 13:32 | PN ---
Subjective Date of Service: 12/02/19 Interval History: Patient felt dysarthria largely resolved, however still had left side weakness that was definitely worsening from her baseline left weakness. She recalled that she had a terrible headache before this dysarthria happned yesteray, it was not her usual headache, it was worse in severity and involving the whole head. She recently had her right LL "artery ballooned" as it was narrowed Objective Active Medications: Albuterol (Ventolin Hfa Inhaler*) 2 puff INH QID PRN PRN Reason: SOB/WHEEZING Albuterol (Ventolin 2.5 Mg/3 Ml Neb.Lilibeth*) 2.5 mg INH Q4H PRN PRN Reason: SOB/WHEEZING Atorvastatin Calcium (Lipitor*) 80 mg PO DAILY [facility] Last Admin: 12/02/19 09:53 Dose: 80 mg Calcium/Vitamin D (Oscal D Tab 250/125*) 1 tab PO DAILY [facility] Last Admin: 12/02/19 09:53 Dose: 1 tab Carvedilol (Coreg Tab*) 6.25 mg PO BID [facility] Last Admin: 12/02/19 09:55 Dose: 6.25 mg Cholecalciferol (Vitamin D Tab*) 1,000 units PO DAILY [facility] Last Admin: 12/02/19 09:53 Dose: 1,000 units Clopidogrel Bisulfate (Plavix Tab*) 75 mg PO DAILY [facility] Last Admin: 12/02/19 09:56 Dose: 75 mg Desvenlafaxine Succinate (Pristiq (Nf)) 150 mg PO QAM [facility] Last Admin: 12/02/19 09:50 Dose: 150 mg Dextrose (D50w Syringe 50 Ml*) 12.5 gm IV PUSH .FOR FS < 60 - SS PRN PRN Reason: FS < 60 Diltiazem HCl (Cardizem Cd Cap*) 120 mg PO DAILY [facility] Last Admin: 12/02/19 09:55 Dose: 120 mg Diphenhydramine HCl (Benadryl Po*) 50 mg PO BEDTIME PRN PRN Reason: SEE COMMENTS Last Admin: 12/01/19 21:32 Dose: 50 mg Divalproex Sodium (Depakote Dr Tab(*)) 500 mg PO BID [facility] Last Admin: 12/02/19 09:47 Dose: 500 mg Docusate Sodium (Colace Cap*) 100 mg PO BID [facility] Last Admin: 12/02/19 09:53 Dose: 100 mg Famotidine (Pepcid Tab*) 40 mg PO BEDTIME [facility]; Protocol Last Admin: 12/01/19 21:30 Dose: 40 mg Gabapentin (Neurontin Cap(*)) 100 mg PO TID [facility] Last Admin: 12/02/19 12:55 Dose: 100 mg Gabapentin (Neurontin Cap(*)) 600 mg PO BEDTIME [facility] Last Admin: 12/01/19 21:29 Dose: 600 mg Insulin Glargine (Lantus(*)) 15 units SUBCUT BEDTIME [facility] Last Admin: 12/01/19 21:29 Dose: 15 units Insulin Human Lispro (Humalog*) 0 units SUBCUT AC [facility]; Protocol Last Admin: 12/02/19 12:13 Dose: 6 unit Ipratropium [place] (Atrovent 0.5 Mg Neb.Lilibeth*) 0.5 mg INH QID PRN PRN Reason: SOB/WHEEZING Lamotrigine (Lamictal Tab(*)) 75 mg PO QAM [facility] Last Admin: 12/02/19 09:55 Dose: 75 mg Lisinopril (Prinivil Tab*) 20 mg PO DAILY [facility] Last Admin: 12/02/19 09:54 Dose: 20 mg Lurasidone HCl (Latuda) 60 mg PO DAILY [facility] Last Admin: 12/02/19 09:56 Dose: 60 mg Multivitamins/Minerals (Theragran/Minerals Tab*) 1 tab PO DAILY [facility] Last Admin: 12/02/19 09:52 Dose: 1 tab (Canagliflozin (Nf) [Invokana (Nf)] 100 Mg) 100 mg PO DAILY [facility] Last Admin: 12/02/19 09:57 Dose: Not Given (Glimepiride (Nf) [ Glimepiride (Nf)] 4 Mg) 4 mg PO DAILY [facility] Last Admin: 12/02/19 09:57 Dose: Not Given (Liraglutide (Nf) [ Victoza (Nf)] 1.8 Mg ) 1.8 mg SUBCUT DAILY [facility] Last Admin: 12/02/19 09:57 Dose: Not Given Nystatin (Nystatin Top Powder*) 1 applic TOPICAL BID [facility] Ondansetron HCl (Zofran Inj*) 4 mg IV Q4H PRN PRN Reason: NAUSEA/VOMITING Pantoprazole Sodium (Protonix Tab*) 40 mg PO QAM [facility] Last Admin: 12/02/19 09:56 Dose: 40 mg Senna (Senokot 8.6 Mg Tab*) 3 tab PO DAILY [facility] Last Admin: 12/02/19 09:51 Dose: 3 tab Topiramate (Topamax(*)) 50 mg PO QPM [facility] Last Admin: 12/01/19 17:40 Dose: 50 mg Vital Signs - 8 hr 12/02/19 12/02/19 12/02/19 07:15 08:00 09:48 Temperature 98.1 F Pulse Rate 76 Respiratory 24 20 Rate Blood Pressure 159/63 (mmHg) O2 Sat by Pulse 96 96 Oximetry 12/02/19 12/02/19 12/02/19 11:14 11:39 12:55 Temperature 97.4 F Pulse Rate 75 Respiratory 22 16 20 Rate Blood Pressure 136/57 (mmHg) O2 Sat by Pulse 96 Oximetry Oxygen Devices in Use Now: Nasal Cannula Exam: Gen: morbid obese lady, looks older than her age, wearing 3L O2, comfortable HEENT: normacephalic and atraumatic Lungs: clear on auscultation Heart: S1/S2 heard with no murmur Abdomen: Soft, nondistended and nontender. Normal BS heard Extremities: no cynosis, no edema Neuro; Alert and oriented x4. Speech normal to me Cranial nerve intact. Gross motor strength BECKY 4, LLL 3-4, RUL 5, RLL 5 Pronator drift+ No dysmetria Hyporeflexia Result Diagrams: 12/01/19 11:17 12/01/19 11:17 Assess/Plan/Problems-Billing Assessment: Jewels Sol is a 59 y/o female with history of moyamoya s/p brain surgery in 2017, left carotid artery stented on plavix, prev CVA with residual left sided weakness, migraine on topiramate and Amovig, HTN, HLD, CHF, diabetes, presented with dysarthria , word finding difficulty, left sided weakness after headache episode. - Patient Problems (1) Left-sided weakness Current Visit: No Status: Acute Code(s): R53.1 - WEAKNESS SNOMED Code(s): 855481109 Comment: Patient has left sided weakness at baseline worsening left side weakness this time initial CT and CTA neg need to rule out stroke with MRI brain PT assessment continue plavix for now I won't load her with DAPT due to high risk of bleeding with moyamoya Neuro consult today (2) Diabetes Current Visit: No Status: Acute Code(s): E11.9 - TYPE 2 DIABETES MELLITUS WITHOUT COMPLICATIONS SNOMED Code(s): 76336497 Comment: Continue SS Lispro, lantus inpatient, hold off invokana, glimepiride , liraglutide (3) Dyslipidemia Current Visit: No Status: Chronic Code(s): E78.5 - HYPERLIPIDEMIA, UNSPECIFIED SNOMED Code(s): 509121266 Comment: - Continue lipitor - LDL 82 (4) Hypertension Current Visit: No Status: Chronic Code(s): I10 - ESSENTIAL (PRIMARY) HYPERTENSION SNOMED Code(s): 13262381 Comment: - Slightly hypertensive, SBP 130-150's - Continue Coreg, Lisinopril and Cardizem (5) Moyamoya Current Visit: No Status: Chronic Code(s): I67.5 - MOYAMOYA DISEASE SNOMED Code(s): 00747876 Comment: - Has Neurosurgeon in [place], had intracranial bypass x2 Sees Dr. Calderón as outpt. - continue plavix (6) JOSIE (obstructive sleep apnea) Current Visit: No Status: Chronic Code(s): G47.33 - OBSTRUCTIVE SLEEP APNEA (ADULT) (PEDIATRIC) SNOMED Code(s): 75925875 Comment: - Continue with supplemental O2 and night time CPAP (7) Obesity Current Visit: No Status: Chronic Code(s): E66.9 - OBESITY, UNSPECIFIED SNOMED Code(s): 452080229 Comment: - BMI 49 Status and Disposition: Inpatient PT assessment Attestation Documenting Resident: Shira Winter Supervising Physician: Ang Zelaya Attending/Supervising Physician Comment: Patient w/ Cabrera Cabrera syndrome, here with episode word-finding difficulty and LT arm/leg weakness. Has neurology consult, MRI planned today. Possible discharge this evening, on DAPT. Attestation: This service has been performed in part by a resident under the direction of a teaching physician.I, Ang Zelaya, performed the service, or was physically present during the critical, or low portions of the service, furnished by the resident. I participated in the management of the patient.
[2019-12-02 15:24] VITALS: BP 147/55
[2019-12-02] MEDS ORDERED: Nystatin TOP POWDER* 15 GM BTL TOPICAL SCH (21:00)
--- NOTE | 2019-12-02 23:17 | CONS ---
NEUROLOGY CONSULTATION NOTE: DATE OF CONSULT: 12/02/19 CONSULTING PROVIDER: MARLA Mijares REASON FOR CONSULT: Headache, slurred speech, and left-sided weakness. CHIEF COMPLAINT: Left-sided numbness. HISTORY OF PRESENT ILLNESS: Ms. Jewels Sol is a 59-year-old right-handed female who is obese, who has history of moyamoya with internal carotid to middle cerebral artery bypass done by Dr. Crowe at the [facility], who has multiple ER visits and hospitalization over the last 3 years for very similar symptoms. The patient has symptoms of left-sided weakness associated with slurred speech and headaches. She was seen by me in the past on two separate occasions and was seen by two other neurologists in the past. She was diagnosed with functional disorder causing her weakness and dysarthria. I also thought last time that the patient may have complicated migraines as well as functional examination. She was last seen by me in October 2018. She was seen by Dr. Rogers and Dr. Hylton twice in 2018. The patient stated that today she feels that her slurred speech completely resolved. She was apparently at home when she first noticed that she has the terrible headache that was holocephalic, 9/10 in severity, nonradiating, associated with photo and phonophobia and then after a few minutes, she developed slurred speech and after several hours, she developed gradual onset left hemiparesis. Her weakness persists today, but is better than it was yesterday. She has never had full function on the left upper or lower extremities. She wants to go home. Please note that the patient had a CT head and a CTA head and neck that did not show any acute intracranial or vascular abnormality. She has had a total of nine MRIs in the past, though the majority of the MRIs being negative especially the ones completed in 2018. She does have known history of subcortical strokes that are worst on the left hemisphere for which she does not complain of any right-sided weakness. PAST MEDICAL HISTORY: Moyamoya disease, bihemispheric surgery, external carotid to internal carotid bypass, she has type 2 diabetes, peripheral vascular disease, hypertension, dyslipidemia, personality disorder, bipolar disorder, anxiety, depression, and COPD. She also has history of tremors, which she did not have today. MEDICATIONS: 1. Gabapentin 100 mg t.i.d. 2. Colace 100 mg p.o. b.i.d. 3. Calcium carbonate 500 mg p.o. daily. 4. Lisinopril 20 mg p.o. at bedtime. 5. Victoza 1.8 subcutaneous daily. 6. Multivitamins. 7. Vitamin D 400 units p.o. daily. 8. Clopidogrel 75 mg p.o. at bedtime. 9. Glimepiride 4 mg p.o. daily. 10. Albuterol 2.5 mg inhaler every 6 hours. 11. Ondansetron 4 mg p.o. every 6 hours. 12. Pantoprazole 40 mg p.o. in the morning. 13. Depakote 500 mg p.o. daily. 14. Diltiazem 120 mg p.o. at bedtime. 15. Carvedilol 6.25 mg p.o. b.i.d. 16. Atorvastatin 80 mg p.o. at bedtime. 17. Desvenlafaxine 150 mg p.o. in the morning. ALLERGIES: NITROFURANTOIN, DEMEROL, AUGMENTIN and MORPHINE. FAMILY HISTORY: Mother has history of strokes at 6 years of age. Her father has a history of brain cancer. SOCIAL HISTORY: The patient is a former smoker, 1-1/2 packs per day for 26 years. She quit in 2004. She denied any alcohol use. REVIEW OF SYSTEMS: A 14-point review of systems was obtained and otherwise negative except for what was mentioned in the HPI. PHYSICAL EXAM: Vital Signs: Temperature 97.6, pulse of 74, respiratory rate of 20, oxygen saturation of 96%, blood pressure of 147/55. General: Well- nourished, well-developed female, in no acute distress. She is obese. Head: Atraumatic, normocephalic without any obvious abnormality. Eyes: Conjunctivae/ corneas are clear. Neck is supple and symmetrical with no carotid bruits. Lungs are clear to auscultation bilaterally. Cardiovascular: Regular rate and rhythm with normal S1, S2. Extremities: Normal range of motion with no cyanosis. Skin: No skin lesions or lacerations. Psych: Affect is broad and normal mood. She is smiling throughout the interview. She is easy to establish rapport. Neurological Examination: Awake, alert, and oriented to person, place, time, and general circumstances. She does have chronic mild dysarthria that was noted on prior examination. Her language including expression, naming, repetition and comprehension were assessed and found to be normal. Cranial Nerves: Normal confrontation testing. Pupils are mid range and reactive to light. Extraocular muscles are intact. Sensation is intact in the forehead, cheeks and jaw region bilaterally. Normal facial asymmetry. The shoulder shrug is symmetric bilaterally. Motor Examination: No abnormal movements or pronator drift. She has got 4/5 weakness on the left upper and lower extremities. 5/5 strength in the right. There is give way activation of the left upper and lower extremities when examined especially proximally. Reflexes: 1+ throughout except the ankles was 0 bilaterally. Flexor plantar response bilaterally. Sensation is intact to light touch throughout. Coordination: Normal [id number] and rapid alternating movement. The patient is morbidly obese and is walker dependent. DIAGNOSTIC STUDIES/LAB DATA: Imaging, labs, and other diagnostic testing. Laboratory data: Glucose is 210. Urinalysis is negative for pyuria. WBC 7.7, hemoglobin of 13.9, hematocrit of 41, platelet count of 179. INR is 1.12, APTT 32. Sodium of 138, potassium 4.4, chloride of 104, BUN of 17, creatinine is 0.76 , lactic acid of 2.4. Point of care glucose of 188. LDL of 79. Urinalysis, negative for pyuria. CT and CTA of the head and neck were reviewed and as mentioned in the HPI. ASSESSMENT AND RECOMMENDATIONS: Ms. Sol is a 59-year-old female with complex medical history of moyamoya disease, status post intracranial bypass, who presented with symptoms of headaches associated with dysarthria and left hemiparesis. The patient continues to have left hemiparesis; however, the dysarthria and headaches have resolved. Unfortunately, this is a very complicated situation given the patient's psychiatric history and herfunctional neurological examination in the past. She still has some functional and give way weakness on the left today. The patient is at risk of cardiovascular disease; however, given that her CT has unchanged and her examination is improving, I really think this is either a complex migraine or conversion disorder, and not stroke. We opted not to proceed with the MRI testing given the patient's size as well as it will not change the medical management. The patient does not want to be on dual-antiplatelet therapy. Furthermore, again stroke is less likely the cause of her symptoms. She was amenable to continuing her workup as an outpatient. 1. Functional left hemiparesis. 2. Migraine headaches, possible complex migraines. 3. History of recurrent transient ischemic attacks. 4. History of moyamoya disease Recommendations: I am not recommend any further neurological workup at this time. The patient needs to follow up with the Psychiatry for cognitive behavior therapy. She has had a total of 9 MRIs, most of them being read as within normal range without any acute findings for the past 3 years. She should follow up with Dr. Calderón. I encouraged her to come back to the ER if her symptoms do not resolve or if she has any worsening of her neurological function. [id number]/[facility] #: [id number] SAURAV
--- NOTE | 2019-12-03 19:51 | DS ---
CC: Dr. Pate; Dr. Calderón * DISCHARGE SUMMARY: DATE OF ADMISSION: 12/01/19 DATE OF DISCHARGE: 12/02/19 PRIMARY DIAGNOSIS: Migraine with neurologic symptoms versus conversion disorder. SECONDARY DIAGNOSES: 1. Moyamoya disease with recurrent stroke. 2. Chronic left-sided weakness, which was mild. 3. History of bilateral intracranial-extracranial bypasses due to moyamoya disease. 4. Chronic obstructive pulmonary disease, oxygen dependent. 5. Type 2 diabetes. 6. Morbid obesity. 7. Peripheral artery disease. 8. Hypertension. 9. Hyperlipidemia. 10. Personality disorder. 11. Bipolar disorder. 12. Carotid stent in the left internal carotid artery in 2004. 13. Obstructive sleep apnea, on CPAP. 14. Chronic kidney disease, stage 3. 15. Diastolic congestive heart failure. MEDICATIONS ON DISCHARGE: Unchanged and they are: 1. Albuterol nebulizer q.4 hours p.r.n. wheezing. 2. Albuterol inhaler 2 puffs 4 times daily p.r.n. wheezing as an alternative to the nebulizer. 3. Saphris 5 mg sublingual q.p.m. 4. Atorvastatin 80 mg p.o. q.p.m. 5. Benzonatate 100 mg p.o. t.i.d. p.r.n. cough. 6. Fioricet 1 tab p.o. q.8 hours p.r.n. migraine. 7. Calcium carbonate with vitamin D 1 tab p.o. daily. 8. Invokana 100 mg p.o. daily. 9. Coreg 6.25 mg p.o. b.i.d. 10. Vitamin D3 1000 units p.o. daily. 11. Clopidogrel 75 mg p.o. daily. 12. Estrogen vaginal cream 1 applicator p.v. 2 times a week. 13. Pristiq 150 mg p.o. q.a.m. 14. Cardizem CD 120 mg p.o. daily. 15. Divalproex DR 500 mg p.o. b.i.d. 16. Docusate 100 mg p.o. b.i.d. 17. Aimovig 70 mg subcutaneous monthly. 18. Gabapentin 100 mg p.o. t.i.d. plus 600 mg p.o. q.h.s. 19. Genahist 50 mg p.o. q.h.s. p.r.n. insomnia. 20. Insulin glargine 20 units subcutaneous q.p.m. 21. Ipratropium nebulizer 4 times daily. 22. Lamotrigine 75 mg p.o. q.a.m. 23. Victoza 1.8 mg subcutaneous daily. 24. Lisinopril 20 mg p.o. daily. 25. Latuda 60 mg p.o. daily. 26. Multivitamin 1 tab p.o. daily. 27. Nystatin cream as needed. 28. Ondansetron 4 mg p.o. q.6 hours p.r.n. nausea. 29. Pantoprazole 40 mg p.o. q.a.m. 30. Senna 1 tab p.o. daily. 31. Topiramate 50 mg p.o. q.p.m. 32. Glimepiride 4 mg p.o. daily. CONSULTATION: Dr. Yap of Neurology. PROCEDURES: None. COMPLICATIONS: None. HOSPITAL COURSE: Ms. Sol is a 59-year-old woman with complicated medical history including moyamoya disease as described above. She has had multiple admissions to this hospital for recurrent stroke symptoms. The patient this time presented with dysarthria, word-finding difficulties and worsened left- sided weakness. The patient had a CT, which showed no new intracranial findings. She had a CT angiogram of the head and neck, which showed calcified atherosclerosis at the right carotid bulb and a stent in the left internal carotid artery. There was question as to the patency of the stent and this could be further evaluated by ultrasound or catheter angiography. The patient was admitted to the hospital for observation and had no cardiac arrhythmias on telemetry. She had resolution of her word-finding difficulties and any dysarthria. She did complain of continued left- sided weakness, but it is unclear whether this is weaker than her baseline. Consultation was obtained with Dr. Yap of Neurology. He felt that the patient had migraine prior to the onset of symptoms and that this was likely a migraine syndrome with neurologic complications and/or a conversion disorder. He recommended against MRI and recommended against future admissions for this clinical syndrome. The patient did not get any tPA in the ER despite the code zimmerman initial presentation. DIAGNOSTIC STUDIES/LAB DATA: Other pertinent laboratory findings during the hospital stay: Complete blood count was normal. Coagulation studies were normal. Electrolytes were normal. Lactic acid was 2.4 on admission and came down to 1.8 on repeat. Blood sugar ranged from 176 to 236. LDL cholesterol was 79. Troponin was 0.00. Urinalysis shows specific gravity of 1.039 consistent with dehydration. Chest x-ray on admission showed no infiltrates or effusions. DISPOSITION: To home. STATUS: Observation. CONDITION: Stable. ACTIVITY: As tolerated. DIET: Diabetic, heart-healthy diet. FOLLOWUP: Dr. Pate within 1 week, Dr. Calderón within 3 months. [id number]/[facility] #: [id number] MTDIvonne
== END 2019-12-02 16:20 | disposition home or self-care (01) ==
LOC: ED 10:13 → MEDTELE 12:38
PROVIDERS: ADMIT Hospitalist; ATTEND Internal Medicine
DX: G43.909 Migraine, unspecified, not intractable, without status migrainosus (principal); I67.5 Moyamoya disease; I69.354 Hemiplegia and hemiparesis following cerebral infarction affecting left non-dominant side; J44.9 Chronic obstructive pulmonary disease, unspecified; Z99.81 Dependence on supplemental oxygen; E11.9 Type 2 diabetes mellitus without complications; E66.01 Morbid (severe) obesity due to excess calories; I13.0 Hypertensive heart and chronic kidney disease with heart failure and stage 1 through stage 4 chronic kidney disease, or unspecified chronic kidney disease; N18.3 Chronic kidney disease, stage 3 (moderate); I50.30 Unspecified diastolic (congestive) heart failure; I73.9 Peripheral vascular disease, unspecified; E78.5 Hyperlipidemia, unspecified; F60.9 Personality disorder, unspecified; F31.9 Bipolar disorder, unspecified; Z95.5 Presence of coronary angioplasty implant and graft; G47.33 Obstructive sleep apnea (adult) (pediatric); Z79.899 Other long term (current) drug therapy; Z79.4 Long term (current) use of insulin
CPT/HCPCS: 36415; 70450; 70496; 70498; 71045; 80053; 80061; 81003; 83605; 84484; 85025; 85610; 85730; 93005; 96360; 96361; 99285; A9270-GY; G0378; Q9967

== ENCOUNTER 2021-04-07 10:24 | Inpatient (IN) ==
[2021-04-07] MEDS ORDERED: Lactated Ringers 1000 ml BAG 1,000 ML IV ONE (10:54)
[2021-04-07] MEDS ORDERED: Albuterol/Ipratropium NEB.SOL (2.5/0.5 MG) 3 ML NEB.SOLN INH ONE (11:05)
[2021-04-07 11:36] LABS: Venous Bicarbonate HCO3 19.6 mmol/L (24-28)
[2021-04-07 11:53] LABS: ALT 15 U/L (7-52); AST 18 U/L (13-39); Albumin 4.2 g/dL (3.2-5.2); Albumin/Globulin Ratio 1.4 (1-3); Alkaline Phosphatase 48 U/L (35-149); Anion Gap 16 mmol/L (2-11); Blood Urea Nitrogen 15 mg/dL (6-24); CO2 Carbon Dioxide 19 mmol/L (22-32); Calcium 9.9 mg/dL (8.6-10.3); Chloride 107 mmol/L (101-111); EGFR African American 65.9 (>60); EGFR Non-African American 54.4 (>60); Glucose 178 mg/dL (70-100); Magnesium 2.1 mg/dL (1.9-2.7); Potassium 4.6 mmol/L (3.5-5.0); Sodium 142 mmol/L (135-145); Total Protein 7.2 g/dL (6.4-8.9)
[2021-04-07 11:55] LABS: Troponin I 0.08 ng/mL (<0.03)
[2021-04-07 12:50] LABS: ABS Basophils 0.1 10^3/ul (0-0.2); ABS Lymphocytes 1.8 10^3/ul (1.0-4.8); ABS Monocytes 0.7 10^3/ul (0-0.8); ABS Neutrophils 11.3 10^3/ul (1.5-7.7); ABS Nucleated RBC 0.1 10^3/ul; Eosinophil % 0.1 %; Hematocrit 49 % (35-47); Hemoglobin 16.2 g/dL (12.0-16.0); Mean Corpuscular HGB Conc 33 g/dL (31-36); Mean Corpuscular Hemoglobin 28 pg (27-31); Mean Corpuscular Volume 83 fL (80-97); Mean Platelet Volume 8.5 fL (7.4-10.4); Nucleated Red Blood Cells % 0.3; Platelet Count 234 10^3/uL (150-450); Red Blood Count 5.89 10^6 /uL (3.70-4.87); Red Cell Distribution Width 20 % (10-15); White Blood Count 13.8 10^3/uL (3.5-10.8)
[2021-04-07] MEDS ORDERED: Iodixanol (CONTRAST) 320 MG/ML 100 ML SDV IV ONE (12:53)
[2021-04-07] MEDS ORDERED: Lidocaine PATCH 5% PATCH TRANSDERM ONE (14:00)
[2021-04-07 15:58] LABS: Troponin I 0.52 ng/mL (<0.03)
[2021-04-07] MEDS: Heparin DRIP 25,000 UNITS BAG 25,000 UNITS/500 ML BAG IV SCH (17:01)
[2021-04-07] MEDS: Heparin 5000 UNITS/ML 1 mL VIAL IV SCH ×2 (17:02→23:34)
[2021-04-07] MEDS ORDERED: Albuterol HFA INHALER 8 gm MDI INH PRN (17:57)
[2021-04-07] MEDS ORDERED: Albuterol 2.5mg/3 ml (0.083%) NEB.SOLN INH PRN (17:57)
[2021-04-07] MEDS ORDERED: Fluticasone NASAL SPRAY 50MCG 16 gm SPRAY BTL INTRANASAL PRN (17:57)
[2021-04-07] MEDS ORDERED: NS 0.9% 1000 ml BAG 1,000 ML IV SCH (18:15)
[2021-04-07] MEDS ORDERED: Dextrose 50% Syringe 50 ml 25 GM/50 ML SYRINGE IV PUSH PRN (18:16)
[2021-04-07] MEDS ORDERED: Ondansetron 4 mg VIAL 2 MG/ML 2 ml VIAL IV PRN (19:09)
[2021-04-07 19:30] LABS: Blood Urea Nitrogen 15 mg/dL (6-24); EGFR African American 83.1 (>60); EGFR Non-African American 68.7 (>60)
[2021-04-07 19:38] LABS: Troponin I 0.64 ng/mL (<0.03)
[2021-04-07] MEDS ORDERED: Lidocaine Patch REMOVE PATCH PATCH OFF SCH (21:00)
[2021-04-07] MEDS ORDERED: CMC:Asenapine 5 MG TAB.SL (NF) SL SCH (21:00)
[2021-04-07] MEDS: Senna TAB 8.6 mg TAB PO SCH (21:47)
[2021-04-07] MEDS: Insulin GLARGINE 100 un/ml 10 ml VIAL SUBCUT SCH (21:49)
[2021-04-07 23:12] LABS: Troponin I 0.51 ng/mL (<0.03)
[2021-04-08 03:27] LABS: Troponin I 0.24 ng/mL (<0.03)
[2021-04-08 03:34] LABS: Urine Appearance Cloudy; Urine Bilirubin Negative (Negative); Urine Blood Negative (Negative); Urine Color Yellow; Urine Glucose 3+(>=500 mg/dL) (Negative); Urine Ketones Trace (Negative); Urine Nitrite Positive (Negative); Urine Protein Negative (Negative); Urine Specific Gravity 1.024 (1.002-1.030); Urine Urobilinogen Negative (Negative)
[2021-04-08 04:27] LABS: Urine Bacteria 2+ (Absent); Urine Red Blood Cell Absent (Absent); Urine Squamous Epithelial Cell Present (Absent); Urine White Blood Cell 2+(11-20/hpf) (Absent)
[2021-04-08 04:49] LABS: ABS Basophils 0.1 10^3/ul (0-0.2); ABS Eosinophils 0.1 10^3/ul (0-0.6); ABS Lymphocytes 2.9 10^3/ul (1.0-4.8); ABS Monocytes 1.1 10^3/ul (0-0.8); Eosinophil % 1.1 %; Hematocrit 44 % (35-47); Hemoglobin 14.5 g/dL (12.0-16.0); Lymphocyte % 28.6 %; Mean Corpuscular HGB Conc 33 g/dL (31-36); Mean Corpuscular Hemoglobin 28 pg (27-31); Mean Corpuscular Volume 83 fL (80-97); Mean Platelet Volume 8.5 fL (7.4-10.4); Platelet Count 182 10^3/uL (150-450); Red Blood Count 5.24 10^6 /uL (3.70-4.87); Red Cell Distribution Width 19 % (10-15); White Blood Count 10.2 10^3/uL (3.5-10.8)
[2021-04-08 05:06] LABS: HDL Cholesterol 33.1 mg/dL
[2021-04-08] MEDS ORDERED: cefTRIAXone 1 gm/50 mL NS BAG 1 GM/50 ML BAG IVPB SCH (06:00)
[2021-04-08 07:43] LABS: Troponin I 0.22 ng/mL (<0.03)
[2021-04-08] MEDS ORDERED: Perflutren Lipid Microsphere 3 ML VIAL ONE (08:19)
[2021-04-08] MEDS ORDERED: Calcium (OSCAL) 500 mg TAB PO SCH (09:00)
[2021-04-08] MEDS ORDERED: SPIRIVA Respimat (tiotropium) 2.5 mcg/inh Inhaler INH SCH (09:00)
[2021-04-08] MEDS ORDERED: Lidocaine PATCH 5% PATCH TRANSDERM SCH (09:00)
[2021-04-08] MEDS ORDERED: CMC:Desvenlafaxine 50 mg TAB (NF) PO SCH (09:00)
[2021-04-08] MEDS ORDERED: Vitamin THERAPEUTIC TAB PO SCH (09:00)
[2021-04-08] MEDS: Heparin 5000 UNITS/ML 1 mL VIAL IV SCH (11:30)
[2021-04-08] MEDS: Senna TAB 8.6 mg TAB PO SCH (11:38)
[2021-04-08] MEDS: Heparin DRIP 25,000 UNITS BAG 25,000 UNITS/500 ML BAG IV SCH (14:05)
[2021-04-08 15:31] VITALS: BP 149/72
[2021-04-08] MEDS ORDERED: NS 0.9% 1000 ml BAG 1,000 ML IV SCH (17:00)
[2021-04-08] MEDS: Insulin GLARGINE 100 un/ml 10 ml VIAL SUBCUT SCH (17:26)
[2021-04-08] MEDS ORDERED: Lidocaine Patch REMOVE PATCH PATCH OFF SCH (21:00)
== END 2021-04-08 17:55 | disposition short-term general hospital (02) | DRG 280 ==
LOC: ED 10:24 → MEDTELE 19:26
PROVIDERS: ADMIT Internal Medicine; ATTEND Internal Medicine